=== PATIENT | female | born 1940 | race Caucasian/White ===

== ENCOUNTER 2023-04-18 09:29 | Outpatient (OUT) | payer MEDICARE, SELFPAY ==
[2023-04-18 10:20] LABS: Bilirubin Urine NEGATIVE (NEGATIVE); Blood Urine LARGE (NEGATIVE); Clarity Urine CLEAR (CLEAR); Color Urine LT. YELLOW (YELLOW); Glucose Urine UA NEGATIVE (NEGATIVE); Ketones Urine NEGATIVE (NEGATIVE); Leukocyte Esterase Urine NEGATIVE (NEGATIVE); Nitrite Urine NEGATIVE (NEGATIVE); Protein Urine >=300 mg/dL (NEG/TRACE); Specific Gravity Urine 1.025 (1.005-1.025); Urobilinogen Urine 0.2 EU/dL (0.2-1.0); pH Urine 6.5 (5.0-9.0)
[2023-04-18 10:36] LABS: Creatinine Urine Random 38.43 mg/dL (20.00-300.00); Protein Creatinine Ratio Urine 8.12; Total Protein Urine Random 311.9 mg/dL (<=11.9)
[2023-04-18 10:37] LABS: Alanine Aminotransferase 11 U/L (14-59); Albumin Level 3.1 g/dL (3.4-5.0); Alkaline Phosphatase 53 U/L (46-116); Anion Gap 5.2; Aspartate Amino Transferase 8 U/L (15-37); BUN Creatinine Ratio 26.3; Bilirubin Total 0.2 mg/dL (0.2-1.0); Calcium 8.8 mg/dL (8.5-10.1); Chloride 105 mmol/L (98-107); Estimated GFR (African America 55 (>=60); Estimated GFR (Non-African Ame 46 (>=60); Globulin 3.2 g/dL; Glucose 126 mg/dL (74-106); Magnesium 2.4 mg/dL (1.8-2.4); Phosphorus 3.4 mg/dL (2.6-4.7); Potassium 4.2 mmol/L (3.5-5.1); Sodium 139 mmol/L (136-145); Total Protein 6.3 g/dL (6.4-8.2); Uric Acid 7.7 mg/dL (2.6-6.0)
[2023-04-18 10:39] LABS: Hematocrit 30.3 % (36.0-48.0); Hemoglobin 9.1 g/dL (12.0-16.0); Mean Corpuscular Hemoglobin 30.8 pg (26.7-34.0); Mean Corpuscular Volume 102.7 fL (81.0-99.0); Mean Platelet Volume 10.4 fL (9.5-13.5); Platelet Count 214 10^3/uL (150-450); Red Blood Count 2.95 10^6/uL (4.20-5.40); Red Cell Distribution Width 12.8 % (11.0-15.0); White Blood Count 5.7 10^3/uL (4.0-11.0)
[2023-04-20 14:21] LABS: PTH, Intact 80 pg/mL (15-65)
== END 2023-04-18 09:30 | disposition home or self-care (01) ==
PROVIDERS: Visit Provider Internal Medicine Nephrology
DX: I12.9 Hypertensive chronic kidney disease with stage 1 through stage 4 chronic kidney disease, or unspecified chronic kidney disease (principal); R60.9 Edema, unspecified; E11.22 Type 2 diabetes mellitus with diabetic chronic kidney disease; E78.5 Hyperlipidemia, unspecified; Z68.43 Body mass index [BMI] 50.0-59.9, adult; N18.31 Chronic kidney disease, stage 3a
CPT/HCPCS: 36415; 80053; 81003; 82306; 82570; 82607; 83735; 83970; 84100; 84156; 84550; 85027

== ENCOUNTER 2023-05-01 11:45 | Outpatient (REF) | payer MEDICARE, SELFPAY | END 2023-05-01 11:46 | disposition home or self-care (01) | LOC: LAB 11:45 | PROVIDERS: Visit Provider Internal Medicine Nephrology | DX: I12.9 Hypertensive chronic kidney disease with stage 1 through stage 4 chronic kidney disease, or unspecified chronic kidney disease (principal); R60.9 Edema, unspecified; E11.22 Type 2 diabetes mellitus with diabetic chronic kidney disease; E78.5 Hyperlipidemia, unspecified; Z68.43 Body mass index [BMI] 50.0-59.9, adult; N18.31 Chronic kidney disease, stage 3a; D64.9 Anemia, unspecified | CPT/HCPCS: 36415; 84156; 84166 ==

== ENCOUNTER 2023-05-08 11:42 | Emergency (ER) | payer MEDICARE, SELFPAY ==
[2023-05-08] VITALS (69 sets, daily range): BP systolic 109–186; BP diastolic 46–93; PULSE 64–128; RESP 11–22; TEMP 37; O2SAT 93–99; BMI 38.1
--- NOTE | 2023-05-08 12:25 | ECG_ITS ---
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
--- NOTE | 2023-05-08 12:25 | XR_ITS ---
The [address] [address] Patient Name: JONATHAN HILL MRN: [id number] date: 1940 Sex: F Assigned Patient Location: ER Current Patient Location: ER Accession/Order Number: [id number] Exam Date: 05/08/2023 12:37 Report Date: 05/08/2023 13:13 At the request of: POLLY PRIETO Procedure: XR chest 1V EXAMINATION: XR chest 1V 05/08/2023 10:11 AM PST HISTORY: weak TECHNIQUE: Single frontal view of the chest acquired. COMPARISONS: Chest x-ray 06/04/[address] of the chest 02/19/2016. FINDINGS: Lines/tubes/other: None. Heart and mediastinum: Enlarged pulmonary artery resulting in rounded convexity in the right mid mediastinal contour, similar. Mildly enlarged cardiac silhouette, similar. Bones: No acute osseous abnormality. Lungs: The lungs are clear. There is no evidence of pneumonia or pulmonary edema. Pleura: There is no significant pleural effusion or pneumothorax. Other: None. XR/XR chest 1V IMPRESSION: No acute cardiopulmonary abnormality. Electronically authenticated by: EMORY RESTREPO Date: 05/08/2023 13:13
--- NOTE | 2023-05-08 12:35 | ED_ITS ---
HPI - General Adult General Chief complaint: Nausea/Vomiting/Diarrhea Stated complaint: nausea Time Seen by Provider: 05/08/23 12:21 Source: patient Mode of arrival: Wheelchair History of Present Illness HPI narrative: 82-year-old female presents for diarrhea and not feeling well. She's made several trips to the bathroom for diarrhea. She states anytime she tries to eat or drink anything she has diarrhea. No vomiting. No chest pain or shortness of breath or cough. She's not complain to me of abdominal pain. This started within the last day. Related Data Home Medications Medication Instructions Recorded Confirmed albuterol sulfate 90 mcg/actuation 2 puff inhalation Q4H PRN 05/08/23 05/08/23 aerosol inhaler shortness of breath or wheezing alendronate 70 mg tablet 70 mg PO .weekly 05/08/23 05/08/23 apixaban 5 mg tablet (Eliquis) 5 mg PO Q12H 05/08/23 05/08/23 budesonide-formoterol HFA 160 1 puff inhalation Q12H 05/08/23 05/08/23 mcg-4.5 mcg/actuation aerosol inhaler bumetanide 1 mg tablet 1 mg PO DAILY 05/08/23 05/08/23 carvedilol 25 mg tablet 25 mg PO Q12H 05/08/23 05/08/23 cholecalciferol (vitamin D3) 50 2,000 unit PO DAILY 05/08/23 05/08/23 mcg (2,000 unit) capsule gemfibrozil 600 mg tablet 600 mg PO BID 05/08/23 05/08/23 hydralazine 50 mg tablet 50 mg PO Q12H 05/08/23 05/08/23 ipratropium 0.5 mg-albuterol 3 mg 1.5 ml inhalation Q4H PRN 05/08/23 05/08/23 (2.5 mg base)/3 mL nebulization shortness of breath or wheezing soln levothyroxine 100 mcg tablet 100 mcg PO DAILY 05/08/23 05/08/23 (Euthyrox) loratadine 10 mg capsule 10 mg PO DAILY 05/08/23 05/08/23 losartan 100 mg tablet 100 mg PO DAILY 05/08/23 05/08/23 metformin 1,000 mg tablet 1,000 mg PO BID 05/08/23 05/08/23 nifedipine 60 mg tablet,extended 60 mg PO DAILY 05/08/23 05/08/23 release 24 hr omeprazole 20 mg capsule,delayed 20 mg PO DAILY 05/08/23 05/08/23 release rosuvastatin 5 mg tablet 5 mg PO DAILY 05/08/23 05/08/23 spironolactone 25 mg tablet 25 mg PO DAILY 05/08/23 05/08/23 Allergies Allergy/AdvReac Type Severity Reaction Status Date / Time Penicillins Allergy Severe Verified 05/08/23 12:05 Sulfa (Sulfonamide Allergy Severe Verified 05/08/23 12:05 Antibiotics) sulfamethoxazole Allergy Severe Verified 05/08/23 12:05 [From Bactrim] trimethoprim [From Bactrim] Allergy Severe Verified 05/08/23 12:05 Review of Systems ROS Narrative A ten point review of systems is negative except as noted above. Exam Narrative Exam Narrative: Nurses note and vital signs reviewed and patient is not hypoxic. General: The patient appears mildly uncomfortable and weak Skin: Warm, dry, no pallor noted. There is no rash noted. Head: Normocephalic, atraumatic Eye: Normal conjunctiva, no drainage Ears, Nose, Mouth, and Throat: oral mucosa is but dry. Nares patent. Cardiovascular: irregularly irregular Respiratory: Patient is in no distress, no accessory muscle use, lungs are clear to auscultation, no wheezing, rales or rhonchi Back: non-tender GI: soft and nontender Musculoskeletal: The patient has no evidence of calf tenderness, no pitting edema, symmetrical pulses noted bilaterally Neurological: A&O, normal speech Psychiatric: Cooperative Constitutional Vital Signs, click to edit/add: Last Vital Signs Temp 98.6 F 05/08/23 12:12 Pulse 125 H 05/08/23 14:31 Resp 17 05/08/23 14:31 BP 122/59 05/08/23 12:12 Pulse Ox 98 05/08/23 14:31 O2 Del Method Room Air 05/08/23 12:12 Course Vital Signs Vital signs: Vital Signs Blood Pressure 122/59 05/08/23 12:05 Temperature 98.6 F 05/08/23 12:12 Pulse Rate 125 H 05/08/23 14:31 Respiratory Rate 17 05/08/23 14:31 Blood Pressure 122/59 05/08/23 12:12 Pulse Oximetry 98 05/08/23 14:31 Oxygen Delivery Method Room Air 05/08/23 12:12 Medical Decision Making MDM Narrative Medical decision making narrative: the patient presented with diarrhea and some mild weakness. After a few hours st ay in the emergency depaartment while she was on the monitor she had several episodes of sinus polyps, up to five seconds. During this episode she told me that her head felt funny and she felt like she was going to pass out. In retrospect the family states that for the past month she has episodes where she'll be sitting on the couch talking and then she'll go to sleep. After a few seconds she wakes up. I've spoken to Dr. Kohli and Dr. Wenistein at [facility]. I've also spoken to the emergency department physician there and the patient will be transferred there. She stable and agreeable for transfer. Covid test is pending. Findings are discussed thoroughly with the patient and her family. Differential Diagnosis Differential Diagnosis: food poisoning, gastroenteritis, C. difficile Lab Data Lab results reviewed: Yes I reviewed the patient's lab results Labs: Lab Results 05/08/23 05/08/23 Range/Units 12:28 13:44 WBC 3.9 L (4.0-11.0) 10^3/uL RBC 2.93 L (4.20-5.40) 10^6/uL Hgb 9.0 L (12.0-16.0) g/dL Hct 29.6 L (36.0-48.0) % MCV 101.0 H (81.0-99.0) fL MCH 30.7 (26.7-34.0) pg MCHC 30.4 (29.9-35.2) g/dL RDW 12.5 (11.0-15.0) % Plt Count 196 (150-450) 10^3/uL MPV 10.7 (9.5-13.5) fL Neut % (Auto) 66.7 (43.0-75.0) % Lymph % (Auto) 18.0 L (20.5-60.0) % [place] % (Auto) 10.3 (1.7-12.0) % Eos % (Auto) 4.4 (0.9-7.0) % Baso % (Auto) 0.3 (0.2-2.0) % Neut # (Auto) 2.6 (1.4-6.5) 10^3/uL Lymph # (Auto) 0.7 L (1.2-3.8) 10^3/uL [place] # (Auto) 0.4 (0.3-0.8) 10^3/uL Eos # (Auto) 0.2 (0.0-0.7) 10^3/uL Baso # (Auto) 0.0 (0.0-0.1) 10^3/uL Abs Immat Gran (auto) 0.01 (0.00-0.03) 10^3/uL Imm/Tot Granulo (auto) 0.3 (0.0-0.5) % Sodium 142 (136-145) mmol/L Potassium 4.1 (3.5-5.1) mmol/L Chloride 103 (98-107) mmol/L Carbon Dioxide 31.8 (21.0-32.0) mmol/L Anion Gap 11.3 BUN 35.0 H (7.0-18.0) mg/dL Creatinine 1.42 H (0.55-1.02) mg/dL Est GFR ( Amer) 43 L (>=60) Est GFR (Non-Af Amer) 35 L (>=60) BUN/Creatinine Ratio 24.6 Glucose 177 H (74-106) mg/dL Calcium 9.3 (8.5-10.1) mg/dL Troponin I High Sens 14.3 (4.0-51.3) pg/mL Urine Color Lt. yellow (YELLOW) Urine Clarity Clear (CLEAR) Urine pH 7.5 (5.0-9.0) Ur Specific [place] 1.020 (1.005-1.025) Urine Protein 100 A (NEG/TRACE) mg/dL Urine Glucose (UA) Negative (NEGATIVE) mg/dL Urine Ketones Negative (NEGATIVE) mg/dL Urine Occult Blood Large A (NEGATIVE) Urine Nitrite Negative (NEGATIVE) Urine Bilirubin Negative (NEGATIVE) Urine Urobilinogen 0.2 (0.2-1.0) EU/dL Ur Leukocyte Esterase Negative (NEGATIVE) Urine RBC 20-50 A (0-2) #/HPF Urine WBC 2-5 A (NONE SEEN) #/HPF Ur Squamous Epith Cells Few A (NONE/RARE) #/LPF Urine Crystals None seen (None Seen) #/HPF Urine Bacteria Small A (NONE SEEN) #/HPF Urine Casts None seen (NONE SEEN) #/LPF Urine Mucus None seen (NONE SEEN) Imaging Data Chest x-ray: Radiologist's impression: Procedure: XR chest 1V EXAMINATION: XR chest 1V 05/08/2023 10:11 AM PST HISTORY: weak TECHNIQUE: Single frontal view of the chest acquired. COMPARISONS: Chest x-ray 06/04/[address] of the chest 02/19/2016. FINDINGS: Lines/tubes/other: None. Heart and mediastinum: Enlarged pulmonary artery resulting in rounded convexity in the right mid mediastinal contour, similar. Mildly enlarged cardiac silhouette, similar. Bones: No acute osseous abnormality. Lungs: The lungs are clear. There is no evidence of pneumonia or pulmonary edema. Pleura: There is no significant pleural effusion or pneumothorax. Other: None. IMPRESSION: No acute cardiopulmonary abnormality. Electronically authenticated by: EMORY RESTREPO Date: 05/08/2023 ECG Data Attestation: I personally reviewed and interpreted this ECG as follows: (initial EKG on my interpretation shows 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) Critical Care Time Critical Care Time Critical Care Time: Yes Total Critical Care Time: 45 Attestation: Due to the high probability of sudden and clinically significant deterioration in the patient's condition he/she required the highest level of my preparedness to intervene urgently I provided critical care time including documentation time, medication orders and management, reevaluation, vital sign assessment, ordering and reviewing of lab tests, ordering and reviewing of x-ray studies, and admission orders. Aggregate critical care time is 45 minutes including only time during which I was engaged in work directly related to his/her care and did not include time spent treating other patients simultaneously. Discharge Plan Discharge Chief Complaint: Nausea/Vomiting/Diarrhea Clinical Impression: Sinus pause Patient Disposition: [facility] Time of Disposition Decision: 15:53 Discharge Location: [facility] Condition: Fair Mode of Transportation: EMS
[2023-05-08 12:36] LABS: Basophils Percent Auto 0.3 % (0.2-2.0); Eosinophils Absolute Auto 0.2 10^3/uL (0.0-0.7); Eosinophils Percent Auto 4.4 % (0.9-7.0); Hematocrit 29.6 % (36.0-48.0); Immature Granulocytes Abs Auto 0.01 10^3/uL (0.00-0.03); Immature Granulocytes Pct Auto 0.3 % (0.0-0.5); Lymphocytes Absolute Auto 0.7 10^3/uL (1.2-3.8); Mean Corpuscular HGB Conc 30.4 g/dL (29.9-35.2); Mean Corpuscular Hemoglobin 30.7 pg (26.7-34.0); Mean Platelet Volume 10.7 fL (9.5-13.5); Monocytes Absolute Auto 0.4 10^3/uL (0.3-0.8); Monocytes Percent Auto 10.3 % (1.7-12.0); Neutrophils Absolute Auto 2.6 10^3/uL (1.4-6.5); Neutrophils Percent Auto 66.7 % (43.0-75.0); Platelet Count 196 10^3/uL (150-450); Red Blood Count 2.93 10^6/uL (4.20-5.40); Red Cell Distribution Width 12.5 % (11.0-15.0); White Blood Count 3.9 10^3/uL (4.0-11.0)
[2023-05-08] MEDS: 0.9 % SODIUM CHLORIDE 500 ML IV (12:48)
[2023-05-08 12:54] LABS: Anion Gap 11.3; BUN Creatinine Ratio 24.6; Calcium 9.3 mg/dL (8.5-10.1); Carbon Dioxide 31.8 mmol/L (21.0-32.0); Chloride 103 mmol/L (98-107); Estimated GFR (African America 43 (>=60); Estimated GFR (Non-African Ame 35 (>=60); Glucose 177 mg/dL (74-106); Potassium 4.1 mmol/L (3.5-5.1); Sodium 142 mmol/L (136-145); Troponin I High Sensitivity 14.3 pg/mL (4.0-51.3)
[2023-05-08 13:50] LABS: Bilirubin Urine NEGATIVE (NEGATIVE); Blood Urine LARGE (NEGATIVE); Clarity Urine CLEAR (CLEAR); Color Urine LT. YELLOW (YELLOW); Glucose Urine UA NEGATIVE (NEGATIVE); Ketones Urine NEGATIVE (NEGATIVE); Leukocyte Esterase Urine NEGATIVE (NEGATIVE); Nitrite Urine NEGATIVE (NEGATIVE); Protein Urine 100 mg/dL (NEG/TRACE); Urobilinogen Urine 0.2 EU/dL (0.2-1.0); pH Urine 7.5 (5.0-9.0)
[2023-05-08 14:03] LABS: Bacteria Urine SMALL #/HPF (NONE SEEN); Cast Seen? NONE SEEN #/LPF (NONE SEEN); Crystals Seen? None Seen #/HPF (None Seen); Mucus Urine NONE SEEN (NONE SEEN); RBC Urine 20-50 #/HPF (0-2); Squamous Epithelial Cell Urine FEW #/LPF (NONE/RARE)
--- NOTE | 2023-05-08 14:42 | ECG_ITS ---
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1940 Requested By: JESSICA RILEY Order Number: [id number] Reading MD: JESSICA RILEY Measurements Intervals [place] Rate: 99 P: -31416 MD: -[id number] QRS: -55 QRSD: 144 T: 43 QT: 386 QTc: 442 Interpretive Statements 1210 Atrial fibrillation 2450 Right bundle branch block 2630 Left anterior fascicular block 3114 Cannot rule out anterior myocardial infarction, age undetermined 5233 Voltage criteria for LVH 9150 abnormal ECG Compared to ECG 05/08/2023 12:07:14 Atrial flutter no longer present Early repolarization no longer present Myocardial infarct finding still present Electronically Signed On 05-13-2023 7:51:24 EST by JESSICA RILEY
[2023-05-08 16:20] LABS: SARS-CoV-2 Ag NEGATIVE (NEGATIVE)
[2023-05-08 16:33] LABS: Magnesium 2.4 mg/dL (1.8-2.4); Phosphorus 3.5 mg/dL (2.6-4.7); Thyroid Stimulating Hormone 1.733 uIU/mL (0.358-3.740)
[2023-05-09 16:20] LABS: SARS-CoV-2 NAA INCONCLUSIVE (NOT DETECTE)
== END 2023-05-08 21:30 | disposition short-term general hospital (02) ==
PROVIDERS: Emergency Provider Emergency Medicine; PCP Family Medicine
DX: I45.5 Other specified heart block (principal); Z79.899 Other long term (current) drug therapy; Z79.01 Long term (current) use of anticoagulants; Z79.84 Long term (current) use of oral hypoglycemic drugs; Z20.822 Contact with and (suspected) exposure to COVID-19
CPT/HCPCS: 36415; 71045; 80048; 81001; 83735; 84100; 84443; 84484; 85025; 87045; 87493; 87635; 87811; 93005; 99285

== ENCOUNTER 2023-08-01 09:28 | Outpatient (OUT) | payer MEDICARE, SELFPAY ==
--- OUTSIDE RECORDS SUMMARY | 2023-08-01 09:42 | XMS_ITS | CCD ---
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 time] 2.3 {INR} Abnormal 0.8 - 1.2 [facility] Interpretation and review of laboratory results Abnormal [facility] POCT Protime / INRon 024 INR Coag (PPP) [Relative time] 3.5 {INR} Abnormal 0.8 - 1.2 [facility] Interpretation and review of laboratory results Abnormal [facility] BASIC METABOLIC PANLon 06-02 Anion gap [Moles/Vol] 9 mmol/L Normal 5-15 [facility] Comment on above: Performed By: #### B MP, LIVR, THYR #### [facility] ([id number]) [address], [address] [place] [address] Calcium [Mass/Vol] 9.0 mg/dL Normal 8.5-10.5 [facility] Comment on above: Performed By: #### B SAE NICHOLS THYR #### [facility] ([id number]) [address], [address] [place] [address] Chloride [Moles/Vol] 106 mmol/L Normal 98-109 [facility] Comment on above: Performed By: #### B SAE NICHOLS THYR #### [facility] ([id number]) [address], [address] [place] [address] CO2 [Moles/Vol] 30 mmol/L Normal 22-32 [facility] Comment on above: Performed By: #### B SAE NICHOLS THYR #### [facility] ([id number]) [address], [address] [place] [address] Creatinine [Mass/Vol] 1.58 mg/dL High 0.40-1.00 [facility] Comment on above: Result Comment: METH OD TRACEABLE TO IDMS STANDARD Performed By: #### B SAE NICHOLS THYR #### [facility] ([id number]) [address], [address] [place] [address] GFR/1.73 sq M.predicted among non-blacks MDRD (S/P/Bld) [Vol rate/Area] 32 mL/min/{1.73_m2} Low >59 [facility] Comment on above: Result Comment: Reported eGFR is based on the CKD-EPI 2020 equation that does not use a race coefficient. Performed By: #### B SAE NICHOLS THYR #### [facility] ([id number]) [address], [address] [place] [address] Glucose [Mass/Vol] 125 mg/dL High 65-99 [facility] Comment on above: Performed By: #### B SAE NICHOLS THYR #### [facility] ([id number]) [address], [address] [place] [address] Potassium [Moles/Vol] 4.3 mmol/L Normal 3.5-5.0 [facility] Comment on above: Performed By: #### B MP, LIVR, THYR #### [facility] ([id number]) [address], [address] [place] [address] Sodium [Moles/Vol] 145 mmol/L Normal 134-146 [facility] Comment on above: Performed By: #### B MP, LIVR, THYR #### [facility] ([id number]) [address], [address] [place] [address] Urea nitrogen [Mass/Vol] 28 mg/dL High 5-27 [facility] Comment on above: Performed By: #### B MP, LIVR, THYR #### [facility] ([id number]) [address], [address] [place] [address] LIVER PANELon 06-02-2023 Albumin [Mass/Vol] 3.3 g/dL Normal 3.2-5.3 [facility] Comment on above: Performed By: #### B MP, LIVR, THYR #### [facility] ([id number]) [address] [place] [address] ALP [Catalytic activity/Vol] 40 U/L Normal 39-130 [facility] Comment on above: Performed By: #### B MP, LIVR, THYR #### [facility] ([id number]) [address], [address] [place] [address] ALT [Catalytic activity/Vol] 10 U/L Normal 0-31 [facility] Comment on above: Performed By: #### B MP, LIVR, THYR #### [facility] ([id number]) [address], [address] [place] [address] AST [Catalytic activity/Vol] 10 U/L Normal 0-41 [facility] Comment on above: Performed By: #### B SAE NICHOLS THYR #### [facility] ([id number]) [address] [place] [address] Bilirubin [Mass/Vol] 0.2 mg/dL Low 0.3-1.2 [facility] Comment on above: Performed By: #### B MAGDALENA LIVDeisy, THYR #### [facility] ([id number]) [address] [place] [address] Bilirubin.direct [Mass/Vol] 0.0 mg/dL Normal 0.0-0.4 [facility] Comment on above: Performed By: #### B SAE NICHOLS, THYR #### [facility] ([id number]) [address], [address] [place] [address] Protein [Mass/Vol] 5.6 g/dL Low 6.0-8.0 [facility] Comment on above: Performed By: #### SAE Bran MP, THYR #### [facility] ([id number]) [address] [place] [address] POCT Protime / INRon 024 INR Coag (PPP) [Relative time] 4.7 {INR} Abnormal 0.8 - 1.2 [facility] Interpretation and review of laboratory results [facility] THYROID PROFILEon 06-02-2023 Free T4 [Mass/Vol] 0.96 ng/dL Normal 0.61-1.60 [facility] Comment on above: Performed By: #### B MAGDALENA LIVR, THYR #### [facility] ([id number]) [address] [place] [address] TSH 7.63 uIU/mL High 0.49-4.67 [facility] Comment on above: Performed By: #### B MP, LIVR, THYR #### [facility] ([id number]) [address] [place] [address] POCT EKGOrdered By: Latia Garcia on 05-28-2023 [facility] POCT Protime / INRon 024 INR Coag (PPP) [Relative time] 3.3 {INR} Abnormal 0.8 - 1.2 [facility] Interpretation and review of laboratory results [facility]normal [facility] PO[facility] Protime / INRon 024 INR Coag (PPP) [Relative time] 4.6 {INR} Abnormal 0.8 - 1.2 [facility] Interpretation and review of laboratory results Abnormal [facility] A1C HEMOGLOBINon 02-19-2023 HbA1c (Bld) [Mass fraction] 5.8 % [facility] [employer] Other Glucose - FINGER STICKon Glucose [Mass/Vol] 174 mg/dL [employer] [facility] [employer] Other HbA1c (Bld) [Mass fraction]o n 02-19-2023 A1C HEMOGLOBIN [facility] [employer] Other PROF 14(COMP METB)on 023 Albumin [Mass/Vol] 2.9 g/dL Critically low 3.4-5.0 [facility] Comment on above: Performed By: #### C MP #### [facility] [address] [address] [address] Lamar Lin Albumin/Globulin [Mass ratio] 0.8 {ratio} Normal [facility] Comment on above: Performed By: #### C MP #### [facility] [address] [address] [address] Lamar Lin ALP [Catalytic activity/Vol] 70 U/L Normal 46-116 [facility] Comment on above: Performed By: #### C MP #### [facility] [address] [address] [address] Lamar Lin ALT [Catalytic activity/Vol] 14 U/L Normal 14-59 [facility] Comment on above: Performed By: #### C MP #### [facility] [address] [address] [address] Laamr Lin Anion gap [Moles/Vol] 10.5 mmol/L Normal [facility] Comment on above: Performed By: #### C MP #### [facility] [address] [address] [address] Lamar Lin AST [Catalytic activity/Vol] 10 U/L Critically low 15-37 [facility] Comment on above: Performed By: #### C MP #### [facility] [address] [place] [address] Dr. Lamar Lin Bilirubin [Mass/Vol] 0.2 mg/dL Normal 0.2-1.0 [facility] Comment on above: Performed By: #### C MP #### [facility] [address] [place] [address] Dr. Lamar Lin Calcium [Mass/Vol] 9.4 mg/dL Normal 8.5-10.1 [facility] Comment on above: Performed By: #### C MP #### [facility] [address] [place] [address] Dr. Lamar Lin Chloride [Moles/Vol] 104 mmol/L Normal 98-107 [facility] Comment on above: Performed By: #### C MP #### [facility] [address] [place] [address] Dr. Lamar Lin CO2 [Moles/Vol] 34.9 mmol/L Critically high 21.0-32.0 [facility] Comment on above: Performed By: #### C MP #### [facility] [address] [place] [address] Dr. Lamar Lin Creatinine [Mass/Vol] 0.96 mg/dL Normal 0.55-1.02 [facility] Comment on above: Performed By: #### C MP #### [facility] [address] [place] [address] Dr. Lamar Lin EGFR-AF SWEDISH >60 Normal >=60 [facility] Comment on above: Performed By: #### C MP #### [facility] [address] [address] [address] Lamar Lin EGFR-NON AF SWEDISH 56 mL/min/1.73m2 Critically low >=60 [facility] Comment on above: Performed By: #### C MP #### [facility] [address] [address] [address] Lamar Lin Globulin (S) [Mass/Vol] 3.7 g/dL Normal [facility] Comment on above: Performed By: #### C MP #### [facility] [address] [address] [address] Lamar Lin Glucose [Mass/Vol] 132 mg/dL Critically high 74-106 [facility] Comment on above: Performed By: #### C MP #### [facility] [address] [address] [address] Lamar Lin Potassium [Moles/Vol] 4.4 mmol/L Normal 3.5-5.1 [facility] Comment on above: Performed By: #### C MP #### [facility] [address] [address] [address] Lamar Lin Protein [Mass/Vol] 6.6 g/dL Normal 6.4-8.2 [facility] Comment on above: Performed By: #### C MP #### [facility] [address] [address] [address] Lamar Lin Sodium [Moles/Vol] 145 mmol/L Normal 136-145 [facility] Comment on above: Performed By: #### C MP #### [facility] [address] [address] [address] Lamar Lin Urea nitrogen [Mass/Vol] 28.0 mg/dL Critically high 7.0-18.0 [facility] Comment on above: Performed By: #### C MP #### [facility] [address] [address] [address] Lamar Lin Urea nitrogen/Creatinine [Mass ratio] 29.2 mg/mg Normal [facility] Comment on above: Performed By: #### C MP #### [facility] [address] [address] [address] Lamar Lin A1C with Estimated Average Britt bennett 08-19-2022 HbA1c (Bld) [Mass fraction] 6.500 % High 4.3-5.6 % [employer] Other HbA1c (Bld) [Mass fraction] 140 mg/dL [employer] Other Glucose [Mass/Vol] 140 mg/dL Normal [facility] Comment on above: Result Comment: PERF ORMED BY: [place] [address] PATHOLOGIST INSPECTOR MULTIFOCAL LENS JEWELL ROWLEY M.D. Performed By: #### L IPID, B12, A1C WTH eA, URMACREELVIN, CMP #### [facility] [address] [id number] [facility] HbA1c (Bld) [Mass fraction] 6.5 % High 4.3-5.6 [facility] Comment on above: Result Comment: Incr eased risk for diabetes: 5.7 - 6.4 diabetes: >6.4 glycemic control for adults with diabetes: <7.0 Performed By: #### L IPID, B12, A1C WTH eA, URMACRET, CMP #### [facility] [address] [place] [address] [facility] Comprehensive Metabolic Pane darron 08-19-2022 Albumin [Mass/Vol] 3.800825 g/dL Normal 3.5-5.7 g/dL [employer] Other Bilirubin [Mass/Vol] 0.2085894 mg/dL Low 0.3-1.0 mg/dL [employer] Other Calcium [Mass/Vol] 9.8525844 mg/dL Normal 8.6-10.3 mg/ dL [employer] Other CO2 [Moles/Vol] 34.07294527 mmol/L High 21.0-3 1.0 mmol/L [employer] Other Creatinine [Mass/Vol] 0.71811488 mg/dL Normal 0.60-1.20 mg/dL [employer] Other Potassium [Moles/Vol] 4.12209472 mmol/L Normal 3.5-5.1 mmol/L [employer] Other Protein [Mass/Vol] 5.574129 g/dL Low 6.4-8.9 g/dL N [facility] [employer] Other Comprehensive Metabolic Panel 2.1 g/dL [employer] Other Albumin [Mass/Vol] 3.6 g/dL Normal 3.5-5.7 [facility] Comment on above: Order Comment: Reaso n for Exam Type 2 diabetes mellitus;Vitamin B 12 deficiency Performed By: #### L IPID, B12, A1C WTH eA, URMACRERAT, CMP #### [facility] [address] [place] [address] [facility] Albumin/Globulin [Mass ratio] 1.7 {ratio} Normal [facility] [employer] Other Comment on above: Order Comment: Reaso n for Exam Type 2 diabetes mellitus;Vitamin B 12 deficiency Performed By: #### L IPID, B12, A1C WTH eA, URMACRERAT, CMP #### [facility] [address] [place] [address] [place] ALP [Catalytic activity/Vol] 56 U/L Normal 34-104 [facility] [employer] Other Comment on above: Order Comment: Reaso n for Exam Type 2 diabetes mellitus;Vitamin B 12 deficiency Performed By: #### L IPID, B12, A1C WTH eA, URMACRERAT, CMP #### [facility] [address] [place] [address] [place] ALT [Catalytic activity/Vol] 14 U/L Normal 7-52 [employer] Other Comment on above: Order Comment: Reaso n for Exam Type 2 diabetes mellitus;Vitamin B 12 deficiency Performed By: #### L IPID, B12, A1C WTH eA, URMACRERAT, CMP #### [facility] [address] [place] [address] Anion gap [Moles/Vol] 10.8 mmol/L Normal 6.0-15.0 [facility] Comment on above: Order Comment: Reaso n for Exam Type 2 diabetes mellitus;Vitamin B 12 deficiency Performed By: #### L IPID, B12, A1C WTH eA, URMACRERAT, CMP #### [facility] [address] [place] [address] AST [Catalytic activity/Vol] 15 U/L Normal 13-39 [employer] Other Comment on above: Order Comment: Reaso n for Exam Type 2 diabetes mellitus;Vitamin B 12 deficiency Performed By: #### L IPID, B12, A1C WTH eA, URMACRERAT, CMP #### [facility] [address] [place] [address] Bilirubin [Mass/Vol] 0.2 mg/dL Low 0.3-1.0 [facility] Comment on above: Order Comment: Reaso n for Exam Type 2 diabetes mellitus;Vitamin B 12 deficiency Performed By: #### L IPID, B12, A1C WTH eA, URMACRERAT, CMP #### [facility] [address] [place] [address] Calcium [Mass/Vol] 9.0 mg/dL Normal 8.6-10.3 [facility] Comment on above: Order Comment: Reaso n for Exam Type 2 diabetes mellitus;Vitamin B 12 deficiency Performed By: #### L IPID, B12, A1C WTH eA, URMACRERAT, CMP #### [facility] [address] [place] [address] [place] Chloride [Moles/Vol] 103 mmol/L Normal 98-107 [employer] Other Comment on above: Order Comment: Reaso n for Exam Type 2 diabetes mellitus;Vitamin B 12 deficiency Performed By: #### L IPID, B12, A1C WTH eA, URMACRERAT, CMP #### [facility] [address] [id number] [place] CO2 [Moles/Vol] 34.5 mmol/L High 21.0-31.0 [facility] Comment on above: Order Comment: Reaso n for Exam Type 2 diabetes mellitus;Vitamin B 12 deficiency Performed By: #### L IPID, B12, A1C WTH eA, URMACRERAT, CMP #### [facility] [address] [id number] [facility] Creatinine [Mass/Vol] 0.71 mg/dL Normal 0.60-1.20 [facility] Comment on above: Order Comment: Reaso n for Exam Type 2 diabetes mellitus;Vitamin B 12 deficiency Performed By: #### L IPID, B12, A1C WTH eA, URMACRERAT, CMP #### [facility] [address] [place] [address] [place] GFR/1.73 sq M.predicted MDRD (S/P/Bld) [Vol rate/Area] mL/min/{1.73_m2} Normal [facility] [employer] Other Comment on above: Order Comment: Reaso n for Exam Type 2 diabetes mellitus;Vitamin B 12 deficiency Performed By: #### L IPID, B12, A1C WTH eA, URMACRERAT, CMP #### [facility] [address] Globulin (S) [Mass/Vol] 2.1 g/dL Normal [facility] Comment on above: Order Comment: Reaso n for Exam Type 2 diabetes mellitus;Vitamin B 12 deficiency Performed By: #### L IPID, B12, A1C WTH eA, URMACRERAT, CMP #### [facility] [address] [id number] [place] Glucose [Mass/Vol] 156 mg/dL High 70-100 [employer] Other Comment on above: Order Comment: Reaso n for Exam Type 2 diabetes mellitus;Vitamin B 12 deficiency Result Comment: [place] om Glucose Reference Range is dependent on time and content of last meal. Glucose of more than 200 mg/dL in a nonstressed, ambulatory subject supports the diagnosis of Diabetes Mellitus. ADA recommended reference range Performed By: #### L IPID, B12, A1C WTH eA, URMACRERAT, CMP #### [facility] [address] [id number] [place] Potassium [Moles/Vol] 4.3 mmol/L Normal 3.5-5.1 [facility] Comment on above: Order Comment: Reaso n for Exam Type 2 diabetes mellitus;Vitamin B 12 deficiency Performed By: #### L IPID, B12, A1C WTH eA, URMACRERAT, CMP #### [facility] [address] [id number] [facility] Protein [Mass/Vol] 5.7 g/dL Low 6.4-8.9 [facility] Comment on above: Order Comment: Reaso n for Exam Type 2 diabetes mellitus;Vitamin B 12 deficiency Performed By: #### L IPID, B12, A1C WTH eA, URMACRERAT, CMP #### [facility] [address] [id number] [place] Sodium [Moles/Vol] 144 mmol/L Normal 136-145 [employer] Other Comment on above: Order Comment: Reaso n for Exam Type 2 diabetes mellitus;Vitamin B 12 deficiency Performed By: #### L IPID, B12, A1C WTH eA, URMACRERAT, CMP #### [facility] [address] [place] [address] [place] Urea nitrogen [Mass/Vol] 24 mg/dL Normal 7-25 [employer] Other Comment on above: Order Comment: Reaso n for Exam Type 2 diabetes mellitus;Vitamin B 12 deficiency Performed By: #### L IPID, B12, A1C WTH eA, URMACRERAT, CMP #### [facility] [address] [id number] [place] Glucose - FINGER STICKon Glucose [Mass/Vol] 205 mg/dL [employer] Other Lipid Panelon 08-19-2022 Cholesterol in LDL Elph Qn 95 mg/dL Normal 0-100 mg/dL [employer] Other Lipid Panel 219 mg/dL High 0-149 mg/dL [employer] Other Lipid Panel 43 mg/dL [employer] Other Cholesterol [Mass/Vol] 172 mg/dL Normal 140-200 [employer] Other Comment on above: Order Comment: Jose Eduardoo n for Exam Type 2 diabetes mellitus;Vitamin B 12 deficiency Result Comment: Chol less than 200 mg/dl low risk Chol 201-239 mg/dl borderline risk Chol 240 mg/dl and greater high risk Performed By: #### L IPID, B12, A1C WTH eA, URMACRERAT, CMP #### [facility] [address] [id number] [facility] Cholesterol in HDL [Mass/Vol] 33 mg/dL Low 35-85 [employer] Other Comment on above: Order Comment: Jose Eduardoo n for Exam Type 2 diabetes mellitus;Vitamin B 12 deficiency Result Comment: HDL CHOL ATP-III CLASSIFICATION Cardiovascular Risk HDL > or equal to 60 mg/dL LOW HDL < 40 mg/dL HIGH Performed By: #### L IPID, B12, A1C WTH eA, URMACRERAT, CMP #### [facility] [address] [id number] [facility] Cholesterol.total/C holesterol in HDL [Mass ratio] 5.2 {ratio} Normal <5.0 [employer] Other Comment on above: Order Comment: Tayler n for Exam Type 2 diabetes mellitus;Vitamin B 12 deficiency Performed By: #### L IPID, B12, A1C WTH eA, URMACRERAT, CMP #### [facility] [address] [place] [address] [place] LDL Cholesterol,Calcula katy 95 mg/dL Normal 0-100 [facility] Comment on above: Order Comment: Tayler n for Exam Type 2 diabetes mellitus;Vitamin B 12 deficiency Result Comment: LDL ATP III CLASSIFICATION LDL less than 100 mg/dL Optimal LDL 100-129 mg/dL Near or above optimal LDL 130-159 mg/dL Borderline high LDL 160-189 mg/dL High LDL greater than 189 mg/dL Very high Performed By: #### L IPID, B12, A1C WTH eA, URSTARLAREELVIN, CMP #### [facility] [address] Triglyceride w/Reflex 219 mg/dL High 0-149 [facility] Comment on above: Order Comment: Reaso n for Exam Type 2 diabetes mellitus;Vitamin B 12 deficiency Result Comment: TRIG ATP III CLASSIFICATION TRIG less than 150 mg/dL Normal TRIG 150-199 mg/dL Borderline high TRIG 200-500 mg/dL High TRIG greater than 500 mg/dL Very high Standard traceable to the Center for Disease Conrtrol and Prevention (CDC) test method. Performed By: #### L IPID, B12, A1C WTH eA, CIARAREELVIN, CMP #### [facility] [address] VLDL CHOLESTEROL 43 mg/dL Normal [facility] Comment on above: Order Comment: Reaso n for Exam Type 2 diabetes mellitus;Vitamin B 12 deficiency Performed By: #### L IPID, B12, A1C WTH eA, CIARAREELVIN, CMP #### [facility] [address] [id number] [facility] [employer] Creat Ratio,Uon Albumin/Creatinine DL <= 20 mg/L (U) [Mass ratio] TNP 0.0-30.0 [facility] [employer] Other Creatinine (U) [Mass/Vol] 52.2407535 mg/dL [facility] [employer] Other Albumin DL <= 20 mg/L (U) [Mass/Vol] mg/dL High 0.0-1.8 [facility] [employer] Other Comment on above: Performed By: #### L IPID, B12, A1C WTH eA, PARULMACREELVIN, CMP #### [facility] [address] [id number] [place] Creatinine, Urine (Random) 52.0 mg/dL [facility] Comment on above: Result Comment: No r eference range established Performed By: #### L IPID, B12, A1C WTH eAPRANEETH, ELIDA #### [facility] [address] Microalbumin/Creati nine Ratio Not performed Normal 0.0-30.0 [facility] Comment on above: Result Comment: PERF ORMED BY: [place] [address] PATHOLOGIST INSPECTOR MULTIFOCAL LENS JEWELL ROWLEY M.D. Performed By: #### L IPID, B12, A1C WTH eAPRANEETH, CMP #### [facility] [address] Vitamin B12on 08-19-2022 Cobalamin (Vitamin B12) [Mass/Vol] 345 pg/mL Normal 180-914 [facility] [employer] Other Comment on above: Order Comment: Reaso n for Exam Type 2 diabetes mellitus;Vitamin B 12 deficiency Result Comment: PERF ORMED BY: [place] [address] PATHOLOGIST INSPECTOR MULTIFOCAL LENS JEWELL ROWLEY M.D. Performed By: #### L IPID, B12, A1C WTH PRANEETH Carpenter, ELIDA #### [facility] [address] [place], [place] [id number] [facility] A1C HEMOGLOBINon 02-27-2022 HbA1c (Bld) [Mass fraction] 6.1 % [employer] Other Glucose - FINGER STICKon Glucose [Mass/Vol] 159 mg/dL [employer] Other HbA1c (Bld) [Mass fraction]o n 02-27-2022 A1C HEMOGLOBIN [facility] [employer] Other FREE T4on 10-30-2021 Free T4 [Mass/Vol] 1.11 ng/dL Normal 0.76-1.46 [facility] Comment on above: Performed By: #### F T4 #### [facility] [address] [address] [address] Lamar Lin T4on 06-14-2022 T4 [Mass/Vol] 8.30 ug/dL Normal 4.80-13.90 [facility] Comment on above: Performed By: #### T 4, TSH #### [facility] [address] [address] [address] Lamar Lin TSHon 10-30-2021 TSH 2.475 uIU/mL Normal 0.358-3.740 [facility] Comment on above: Performed By: #### T 4, TSH #### [facility] [address] [address] [address] Lamar Lin Glucoseon 05-23-2021 Glucose [Mass/Vol] 167 mg/dL [facility] Other Vital Signs Date Time Vital Sign Value Performing Clinician Facility 07-30-2023 11:44-0400 Body height 165.1 cm Tr Jimenez APRN-REGISTRATION MANAGER Work Phone: [facility] 07-30-2023 11:44-0400 Body mass index (BMI) [Ratio] 34.28 kg/m2 Tr Jimenez PRESS SETUP OPERATOR-REGISTRATION MANAGER Work Phone: [facility] 07-30-2023 11:44-0400 Body weight 93.44 kg Tr Jimenez APRN-REGISTRATION MANAGER Work Phone: [facility] 07-30-2023 11:44-0400 Diastolic blood pressure 80 mm[Hg] Tr Jimenez APRN-REGISTRATION MANAGER Work Phone: [facility] 07-30-2023 11:44-0400 Heart rate 59 /min Tr Jimenez APRN-REGISTRATION MANAGER Work Phone: [facility] 07-30-2023 11:44-0400 Systolic blood pressure 140 mm[Hg] Tr Jimenez PRESS SETUP OPERATOR-REGISTRATION MANAGER Work Phone: [facility] 06-17-2023 12:41-0500 Body height 165.1 cm Iona Delarosa MD Work Phone: [facility] 06-17-2023 12:41-0500 Body mass index (BMI) [Ratio] 33.61 kg/m2 Iona Delarosa MD Work Phone: [facility] 06-17-2023 12:41-0500 Body weight 91.63 kg Iona Delarosa MD Work Phone: [facility] 06-17-2023 12:41-0500 Diastolic blood pressure 70 mm[Hg] Iona Delarosa MD Work Phone: [facility] 06-17-2023 12:41-0500 Heart rate 73 /min Iona Delarosa MD Work Phone: [facility] 06-17-2023 12:41-0500 SaO2% (BldA) [Mass fraction] 97 % Iona Delarosa MD Work Phone: [facility] [place] [facility] 06-17-2023 12:41-0500 Systolic blood pressure 160 mm[Hg] Iona Delarosa MD Work Phone: [facility] [place] [facility] 05-28-2023 12:35-0500 Body height 165.1 cm Tr Jimenez PRESS SETUP OPERATOR-REGISTRATION MANAGER Work Phone: [facility] [place] [facility] 05-28-2023 12:35-0500 Body mass index (BMI) [Ratio] 33.61 kg/m2 Tr Tset PRESS SETUP OPERATOR-REGISTRATION MANAGER Work Phone: [facility] [place] [facility] 05-28-2023 12:35-0500 Body weight 91.63 kg Tr Tony PRESS SETUP OPERATOR-REGISTRATION MANAGER Work Phone: [facility] [place] [facility] 05-28-2023 12:35-0500 Diastolic blood pressure 100 mm[Hg] Tr Tony PRESS SETUP OPERATOR-REGISTRATION MANAGER Work Phone: [facility] [place] [facility] 05-28-2023 12:35-0500 Heart rate 64 /min Tr Tset PRESS SETUP OPERATOR-REGISTRATION MANAGER Work Phone: [facility] [place] [facility] 05-28-2023 12:35-0500 SaO2% (BldA) [Mass fraction] 94 % Tr Jimenez PRESS SETUP OPERATOR-REGISTRATION MANAGER Work Phone: [employer] 05-28-2023 12:35-0500 Systolic blood pressure 200 mm[Hg] Tr Jimenez PRESS SETUP OPERATOR-REGISTRATION MANAGER Work Phone: [employer] [place] [facility] 04-22-2023 10:20-0500 Body height 152.4 cm Azwalter Baksilvias Other [facility] 04-22-2023 10:20-0500 Body mass index (BMI) [Ratio] 39.64 kg/m2 Azwalter Aguilerahous Other [facility] [employer] Other 04-22-2023 10:20-0500 Body weight 92.08 kg Aziz Bakhous Other [facility] [employer] Other 04-22-2023 10:20-0500 Body weight 92.07 kg [facility] 04-22-2023 10:20-0500 Diastolic blood pressure 70 mm[Hg] Aziz Bakhous Other [facility] 04-22-2023 10:20-0500 Respiratory rate 18 /min Azwalter Bakhous Other [facility] [employer] Other 04-22-2023 10:20-0500 SaO2% (BldA) [Mass fraction] 97 % Aziz Bakhous Other [facility] [employer] Other 04-22-2023 10:20-0500 Systolic blood pressure 138 mm[Hg] Aziz Bakhous Other [facility] 02-19-2023 09:15-0400 Body height 152.4 cm [employer] Other [facility] [employer] Other 02-19-2023 09:15-0400 Body mass index (BMI) [Ratio] 40.21 kg/m2 Tondra [employer] Other [facility] Other 02-19-2023 09:15-0400 Body weight 93.4 kg Tondra Mapus Other [facility] Other 02-19-2023 09:15-0400 Diastolic blood pressure 64 mm[Hg] Tondra Mapus Other [facility] Other 02-19-2023 09:15-0400 Respiratory rate 18 /min Tondra Mapus Other [facility] Other 02-19-2023 09:15-0400 SaO2% (BldA) [Mass fraction] 95 % Tondra Mapus Other [facility] Other 02-19-2023 09:15-0400 Systolic blood pressure 129 mm[Hg] Tondra Mapus Other [facility] Other 02-12-2023 09:00-0400 Body height 152.4 cm Tondra Mapus Other [facility] Other 02-12-2023 09:00-0400 Body mass index (BMI) [Ratio] 40.07 kg/m2 Tondra Mapus Other [facility] Other 02-12-2023 09:00-0400 Body weight 93.08 kg Tondra Mapus Other [facility] Other 10-22-2022 10:00-0400 Body height 152.4 cm Rin Ramirez Other [facility] Other 10-22-2022 10:00-0400 Body mass index (BMI) [Ratio] 40.23 kg/m2 Rin Ramirez Other [facility] Other 10-22-2022 10:00-0400 Body temperature 97.4 [degF] Rin Ramirez Other [facility] Other 10-22-2022 10:00-0400 Body weight 93.44 kg Rin Ramirez Other [facility] Other 10-22-2022 10:00-0400 Diastolic blood pressure 78 mm[Hg] Rin Ramirze Other [facility] Other 10-22-2022 10:00-0400 Respiratory rate 20 /min Rin Ramirez Other [facility] Other 10-22-2022 10:00-0400 SaO2% (BldA) [Mass fraction] 92 % Rin Ramirez Other [facility] Other 10-22-2022 10:00-0400 Systolic blood pressure 146 mm[Hg] Rin Ramirez Other [facility] Other 08-19-2022 10:15-0400 Body height 152.4 cm Tondra Mullinsus Other [facility] Other 08-19-2022 10:15-0400 Body mass index (BMI) [Ratio] 39.82 kg/m2 Tondra Mapus Other [facility] Other 08-19-2022 10:15-0400 Body weight 92.49 kg Tondra Mapus Other [facility] Other 08-19-2022 10:15-0400 Diastolic blood pressure 63 mm[Hg] Tondra Mapus Other [facility] Other 08-19-2022 10:15-0400 Respiratory rate 20 /min Tondra Mapus Other [facility] Other 08-19-2022 10:15-0400 SaO2% (BldA) [Mass fraction] 95 % Tondra Mapus Other [facility] Other 08-19-2022 10:15-0400 Systolic blood pressure 136 mm[Hg] Tondra Mapus Other [facility] Other 02-27-2022 10:15-0400 Body height 152.4 cm Tondra Mapus Other [facility] Other 02-27-2022 10:15-0400 Body mass index (BMI) [Ratio] 41.79 kg/m2 Tondra Mapus Other [facility] Other 02-27-2022 10:15-0400 Body weight 97.07 kg Tondra Mapus Other [facility] Other 02-27-2022 10:15-0400 Diastolic blood pressure 55 mm[Hg] Tondra Mapus Other [facility] Other 02-27-2022 10:15-0400 Respiratory rate 20 /min Tondra Mapus Other [facility] Other 02-27-2022 10:15-0400 SaO2% (BldA) [Mass fraction] 97 % Tondra Mapus Other [facility] Other 02-27-2022 10:15-0400 Systolic blood pressure 130 mm[Hg] Chester Lin Other [facility] Other 10-23-2021 11:00-0400 Body height 152.4 cm Aziz Bakhous Other [facility] Other 10-23-2021 11:00-0400 Body mass index (BMI) [Ratio] 44.05 kg/m2 Aziz Bakhous Other [facility] Other 10-23-2021 11:00-0400 Body temperature 97.5 [degF] Aziz Bakhous Other [facility] Other 10-23-2021 11:00-0400 Body weight 102.33 kg Aziz Bakhous Other [facility] Other 10-23-2021 11:00-0400 Diastolic blood pressure 72 mm[Hg] Aziz Bakhous Other [facility] Other 10-23-2021 11:00-0400 Respiratory rate 20 /min Aziz Bakhous Other [facility] Other 10-23-2021 11:00-0400 SaO2% (BldA) [Mass fraction] 94 % Aziz Bakhous Other [facility] Other 10-23-2021 11:00-0400 Systolic blood pressure 135 mm[Hg] Aziz Bakhous Other [facility] Other 05-23-2021 10:15-0500 Body height 152.4 cm Tondra Mapus Other [facility] Other 05-23-2021 10:15-0500 Body mass index (BMI) [Ratio] 43.25 kg/m2 Tondra Mapus Other [facility] Other 05-23-2021 10:15-0500 Body weight 100.47 kg Tondra Mapus Other [facility] Other 05-23-2021 10:15-0500 Diastolic blood pressure 57 mm[Hg] Tondra Mapus Other [facility] Other 05-23-2021 10:15-0500 Respiratory rate 20 /min Tondra Mapus Other [facility] Other 05-23-2021 10:15-0500 SaO2% (BldA) [Mass fraction] 96 % Tondra Mapus Other [facility] Other 05-23-2021 10:15-0500 Systolic blood pressure 131 mm[Hg] Tondra Mapus Other [facility] Other Encounters Encounter Date Encounter Type Care Provider Facility Start: 07-30-2023 End: 07-30-2023 ambulatory [facility] Start: 07-30-2023 End: 07-30-2023 Office outpatient visit 25 minutes Cole Krishnan MD Work Phone: [facility] Comment on above: PAF (paroxysmal atri al fibrillation) ([facility]) (Primary Dx); Hyperlipidemia, unspecified hyperlipidemia type; Benign hypertensive heart disease without congestive heart failure Start: 07-30-2023 End: 07-30-2023 Follow-up encounter [facility] Comment on above: PA[place] ([place]oxysmal atri al fibrillation) [place] [place] Start: 07-29-2023 Telephone encounter Enedelia garay [facility] Start: 07-21-2023 Orders Only Alicia Galvan RN [facility] Comment on above: Shortness of breath; Chronic obstructive pulmonary disease, unspecified COPD type [place] [place] Start: 07-18-2023 End: 07-18-2023 ambulatory [facility] Start: 07-18-2023 End: 07-18-2023 Follow-up encounter [facility] Comment on above: PAF (paroxysmal atri al fibrillation) [place] [place] ([place] Start: 07-10-2023 End: 07-10-2023 ambulatory [facility] Start: 07-10-2023 End: 07-10-2023 Follow-up encounter [facility] Comment on above: PAF (paroxysmal atri al fibrillation) [place] [place] (Primary [place]x) Start: 07-02-2023 End: 07-03-2023 ambulatory ANITA MCCOY [facility] Start: 06-26-2023 End: 06-26-2023 [facility] Start: 06-26-2023 End: 06-26-2023 Follow-up encounter [facility] Comment on above: PAF (paroxysmal atri al fibrillation) [place] [place] ([place]x) Start: 06-20-2023 End: 07-18-2023 ambulatory [facility] Start: 06-17-2023 End: 06-17-2023 ambulatory IONA DELAROSA [facility] Start: 06-17-2023 End: 06-17-2023 Office outpatient visit 15 minutes Iona Delarosa MD Work Phone: [facility] Comment on above: PAF (paroxysmal atri al fibrillation) [place] [place] ([place]x); Benign hypertensive heart disease without congestive heart failure; 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 [place] [place] Shortness of breath; COPD with acute exacerbation [place] [place] Start: 06-17-2023 End: 06-17-2023 [facility] Comment on above: PAF (paroxysmal atri al fibrillation) [place] [place] (Primary Dx) Start: 06-16-2023 Telephone encounter Enedelia garay [facility] Start: 06-10-2023 End: 06-10-2023 ambulatory [facility] Start: 06-10-2023 End: 06-10-2023 Follow-up encounter [facility] Comment on above: PAF (paroxysmal atri al fibrillation) [place] [place] [place] (Primary Dx) Start: 06-09-2023 End: 06-09-2023 ambulatory Chester Lin Other [facility] Other Start: 06-09-2023 Telephone encounter Chester Lin [facility] Start: 06-05-2023 End: 06-05-2023 ambulatory LUCI GREEN Not Available Start: 06-05-2023 End: 06-05-2023 Follow-up encounter [facility] Comment on above: PAF (paroxysmal atri al fibrillation) [place] [place] (Primary [place]x) Start: 06-03-2023 End: 06-03-2023 ambulatory Rin Ramirez Other [facility] Other Start: 06-03-2023 Telephone encounter Rin Ramirez [facility] Start: 06-02-2023 End: 06-03-2023 ambulatory ANIKA HENRY [facility] Start: 06-02-2023 End: 06-02-2023 Follow-up encounter [facility] Comment on above: PAF (paroxysmal atri al fibrillation) ([facility]) (Primary Dx) Start: 05-28-2023 End: 07-09-2023 ambulatory [place] Manoj JIMENEZ [facility] Start: 05-28-2023 End: 05-28-2023 Office outpatient visit 25 minutes Tr Jimenez PRESS SETUP OPERATOR-REGISTRATION MANAGER Work Phone: [facility] Comment on above: PAF (paroxysmal atri al fibrillation) (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 Start: 05-27-2023 End: 05-27-2023 ambulatory Tondra Mullinsus Other [facility] Other Start: 05-27-2023 Telephone encounter Elza Wolfe [facility] Start: 05-26-2023 End: 05-26-2023 [facility] Start: 05-26-2023 End: 05-26-2023 Follow-up encounter [facility] Comment on above: PAF (paroxysmal atri al fibrillation) [place] [place] [place] (Primary [place]x) Start: 05-21-2023 End: 05-21-2023 [facility] Start: 05-21-2023 End: 05-21-2023 Anticoagulant drug monitoring [facility] Comment on above: PAF (paroxysmal atri al fibrillation) [place] (Primary Dx) Start: 05-06-2023 End: 05-06-2023 ambulatory NAVA SOLIMAN [facility] Start: 04-23-2023 End: 04-23-2023 ambulatory Rin Ramirez Other [facility] Other Start: 04-23-2023 Telephone encounter Rin Ramirez [facility] Start: 04-22-2023 End: 04-22-2023 ambulatory Aziz Bakhous Other [facility] Other Start: 04-22-2023 Office outpatient vi sit 25 minutes Aziz Bakhous [facility] Start: 04-22-2023 End: 04-22-2023 Patient encounter procedure [facility] Work Phone: Start: 04-21-2023 End: 04-21-2023 ambulatory Aziz Bakhous Other [facility] Other Start: 04-21-2023 Telephone encounter Aziz Bakhous [facility] Start: 02-19-2023 (DM) Diabetes Tondra Delia [facility] Start: 02-19-2023 End: 02-20-2023 ambulatory Tondra K Mapus [facility] Other Start: 02-12-2023 End: 02-12-2023 ambulatory Tondra Mapus Other [facility] Other Start: 02-12-2023 Nursing evaluation o f patient and report Tondra Susannaus [facility] Start: 01-24-2023 End: 01-24-2023 ambulatory Tondra Mapus Other [facility] Other Start: 01-24-2023 Telephone encounter Tondra Mapus [facility] Start: 10-30-2022 End: 10-30-2022 ambulatory Tondra Mapus Other [facility] Other Start: 10-30-2022 Telephone encounter Tondra Mapus [facility] Start: 10-22-2022 End: 10-22-2022 ambulatory Aziz Bakhous Other [facility] Other Start: 10-22-2022 Office outpatient vi sit 25 minutes Aziz Bakhous [facility] Start: 10-16-2022 ambulatory ANIKA HENRY Facility: [facility] Start: 08-20-2022 End: 08-20-2022 ambulatory Tondra Mapus Other [facility] Other Start: 08-20-2022 Telephone encounter Tondra Mapus [facility] Start: 08-19-2022 (DM) Diabetes Tondra Mapus [facility] Start: 08-19-2022 End: 08-19-2022 ambulatory Tondra Mapus Other [facility] Other Start: 08-02-2022 End: 08-02-2022 ambulatory Tondra Mapus Other [facility] Other Start: 08-02-2022 Telephone encounter Tondra Mapus [facility] Start: 05-30-2022 End: 05-30-2022 ambulatory Tondra Mapus Other [facility] Other Start: 05-30-2022 Telephone encounter Tondra Mapus [facility] Start: 05-01-2022 End: 05-01-2022 ambulatory Tondra Mapus Other [facility] Other Start: 05-01-2022 Telephone encounter Tondra Mapus [facility] Start: 04-01-2022 End: 04-01-2022 ambulatory Tondra Mapus Other [facility] Other Start: 04-01-2022 Telephone encounter Tondra Mapus [facility] Start: 02-27-2022 (DM) Diabetes Tondra Mapus [facility] Start: 02-27-2022 End: 02-27-2022 ambulatory Tondra Mapus Other [facility] Other Start: 01-28-2022 End: 01-28-2022 ambulatory Becca Michael Other [facility] Other Start: 01-28-2022 Telephone encounter Becca Michael [facility] Start: 01-09-2022 End: 01-09-2022 ambulatory Tondra Mapus Other [facility] Other Start: 01-09-2022 Telephone encounter Tondra Mapus [facility] Start: 12-31-2021 End: 12-31-2021 ambulatory Tondra Mapus Other [facility] Other Start: 12-31-2021 Telephone encounter Tondra Mapus [facility] Start: 12-17-2021 End: 12-17-2021 ambulatory Tondra Mapus Other [facility] Other Start: 12-17-2021 Telephone encounter Tondra Mapus [facility] Start: 11-25-2021 End: 11-25-2021 ambulatory Tondra Mapus Other [facility] Other Start: 11-25-2021 Telephone encounter Tondra Mapus [facility] Start: [facility]-02-2021 [facility] Injection Marixa Fitt [facility] Start: 11-02-2021 End: 11-02-2021 ambulatory Marixa Fitt Other [facility] Other Start: 10-30-2021 End: 10-31-2021 ambulatory ANIKA ELAINE Facility:[facility] Start: 10-26-2021 End: 10-26-2021 ambulatory Tondra Mapus Other [facility] Other Start: 10-26-2021 Telephone encounter Tondra Mapus [facility] Start: 10-23-2021 End: 10-23-2021 ambulatory Rin Ramirez Other [facility] Other Start: 10-23-2021 Office outpatient vi sit 15 minutes Azwalter Darbys [facility] Start: 10-22-2021 End: 10-22-2021 ambulatory Tondra Mapus Other [facility] Other Start: 10-22-2021 Telephone encounter Tondra Mapus [facility] Start: 09-10-2021 End: 09-10-2021 ambulatory Tondra Mapus Other [facility] Other Start: 09-10-2021 Telephone encounter Tondra Mapus [facility] Start: 05-23-2021 (DM) Diabetes Tondra Mapus [facility] Start: 05-23-2021 End: 05-23-2021 ambulatory Tondra Mapus Other [facility] Other Procedures Date Procedure Procedure Detail Performing Clinician Start: 07-30-2023 Prothrombin time Jobst Service Work Phone: Start: 07-30-2023 Follow-up visit Follow-up TR JIMENEZ Start: 07-30-2023 Ecg routine ecg w/le ast 12 lds w/i&r Tr Jimenez PRESS SETUP OPERATOR-REGISTRATION MANAGER Work Phone: Start: 07-18-2023 Prothrombin time Jobst Service Work Phone: Start: 07-10-2023 Prothrombin time Jobst Service Work Phone: Start: 06-26-2023 Prothrombin time Jobst Service Work Phone: Start: 06-17-2023 Prothrombin time Jobst Service Work Phone: Start: 06-10-2023 Prothrombin time Jobst Service Work Phone: Start: 06-05-2023 Prothrombin time Jobst Service Work Phone: Start: 06-02-2023 Prothrombin time Jobst Service Work Phone: Start: 05-28-2023 Ecg routine ecg w/le ast 12 lds w/i&r Tr Jimenez PRESS SETUP OPERATOR-REGISTRATION MANAGER Work Phone: Start: 05-26-2023 Prothrombin time Jobst Service Work Phone: Start: 05-21-2023 Prothrombin time Jobst Service Work Phone: Start: 05-09-2023 Adult depression scr eening assessment [facility] 1 Start: 02-14-2014 Colonoscopy [facility] 1 Plan of Treatment Date Care Activity Detail Author Start: 07-29-2024 Adult BMI Screening Adult BMI Screen ing [facility] Start: 07-29-2024 Tobacco Screening Tobacco Screening [facility] Start: 06-17-2024 Adult BMI Screening Adult BMI Screen ing [facility] Start: 06-17-2024 Tobacco Screening Tobacco Screening [facility] Start: 05-28-2024 Adult BMI Screening Adult BMI Screen ing [facility] Start: 05-28-2024 Tobacco Screening Tobacco Screening [facility] Start: 05-10-2024 Adult BMI Screening Adult BMI Screen ing [facility] Start: 05-09-2024 Depression Screening Depression Scre ening [facility] Start: 05-09-2024 Tobacco Screening Tobacco Screening [facility] Start: 10-27-2023 End: 10-27-2023 Patient encounter procedure 10/27/2023 2:45 PM EDT [facility] [address] [place] [address] Anita Mccoy MD [address] [facility] [address] [place] [address] [facility] Start: 08-20-2023 End: 08-20-2023 Follow-up encounter 08/20/2023 11:00 AM EDT Follow Up Antico[facility] [address] [place] [address] [facility] Start: 07-30-2023 End: 07-30-2023 Patient encounter procedure 07/30/2023 12:30 PM EDT Office Visit [facility] [address] [place] [address] Cole Krishnan MD [address] [place] [id number] Tr Jimenez, PRESS SETUP OPERATOR-REGISTRATION MANAGER [address] [place] [address] [facility] Start: 07-30-2023 End: 07-30-2023 Follow-up encounter 07/30/2023 11:30 AM EDT Follow Up Anticoagulation [facility] [address] [place] [address] [facility] Start: 07-18-2023 End: 07-18-2023 Follow-up encounter 07/18/2023 1:15 PM EST Follow Up Anticoagulation [facility] [address] [place] [address] [facility] Start: 07-10-2023 End: 07-10-2023 Follow-up encounter 07/10/2023 1:15 PM EST Follow Up Anticoagulation [facility] [address] [place] [address] [facility] Start: 07-02-2023 End: 07-02-2023 Patient encounter procedure 07/02/2023 1:00 PM EST Appointment [facility] - Pulmonary Function [address] [place] [address] Anita Mccoy MD [address] [facility] [address] [place] [address] [facility] Start: 06-20-2023 End: 06-20-2023 Follow-up encounter 06/20/2023 1:15 PM EST Follow Up Anticoagulation [facility] [address] [place] [address] [facility] Start: 06-17-2023 End: 06-17-2023 Patient encounter procedure 06/17/2023 1:00 PM EST Office Visit [facility] [address] [facility] [address] [place] [address] Iona Delarosa MD [address] [place] [address] [facility] Start: 06-17-2023 End: 06-17-2023 Follow-up encounter 06/17/2023 12:30 PM EST Follow Up Anticoagulation [facility] [address] [place] [address] [facility] Start: 06-10-2023 End: 06-10-2023 Follow-up encounter 06/10/2023 2:30 PM EST Follow Up Anticoagulation [facility] [address] [place] [address] [facility] Start: 06-05-2023 End: 06-05-2023 Follow-up encounter 06/05/2023 11:45 AM EST Follow Up Anticoagulation [facility] [address] [place] [address] [facility] Start: 06-04-2023 End: 05-28-2024 Basic metabolic 2000 panel - Serum or Plasma Basic Metabolic Panel Lab Routine Benign hypertensive heart disease without congestive heart failure Expected: 06/04/2023 (Approximate), Expires: 05/28/2024 [facility] Comment on above: Expected: 06/04/2023 (Approximate), Expires: 05/28/2024 Start: 06-02-2023 End: 06-02-2023 Follow-up encounter 06/02/2023 1:15 PM EST Follow Up Anticoagulation [facility] [address] [place] [address] [facility] Start: 05-28-2023 End: 05-28-2024 Wireless Telemetry (In Office) [facility] Work Phone: Comment on above: Expected: 05/28/2023 , Expires: 05/28/2024 Start: 05-28-2023 End: 05-28-2023 Patient encounter procedure 05/28/2023 1:00 PM EST Office Visit [facility] [address] [id number] Tr Jimenez, PRESS SETUP OPERATOR-REGISTRATION MANAGER [address] [place] [address] [facility] Start: 05-26-2023 End: 05-26-2023 Follow-up encounter 05/26/2023 1:45 PM EST Follow Up Anticoagulation [facility] [address] [place] [address] [facility] Start: 02-14-2017 Screening for malign ant neoplasm of colon Colonoscopy [facility] Start: 2005 Fall Risk Screening Fall Risk Screen ing [facility] Start: 1990 Administration of varicella zoster vaccine Zoster (Shingles) Vaccine (1 of 2) [facility] Start: 1959 DTaP,Tdap and Td Vaccines (1 - Tdap) DTaP,Tdap and Td Vaccines (1 - Tdap) [facility] Start: 1958 Adult BMI Follow Up Plan Adult BMI F ollow Up Plan [facility] Start: 1940 Medicare Annual Well ness Visit Medicare Annual Wellness Visit [facility] End: 05-28-2024 Hepatic function 2000 panel - Serum or Plasma Hepatic function panel Lab Routine long-term current use of amiodarone 1 Occurrences starting 05/28/2023 until 05/28/2024 [facility] Comment on above: 1 Occurrences starti ng 05/28/2023 until 05/28/2024 End: 05-28-2024 Thyroid profile includes TSH FT4 Thyroid profile includes TSH FT4 Lab Routine 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 1 Occurrences starting 05/28/2023 until 05/28/2024 [facility] Comment on above: 1 Occurrences starti ng 05/28/2023 until 05/28/2024 Immunizations Immunization Date Immunization Notes Care Provider Fa cility 02-19-2023 Covid-19, Mrna, Lnp- s, Pf,anthony-sucrose,30 Mcg/0.3ml Fall23 [facility] 1 [facility] 02-19-2023 Influenza Vaccine, Quadrivalent, Adjuvanted [facility] 1 [facility] 02-19-2023 RSV, bivalent, prote in subunit RSVpreF, diluent reconstituted, 0.5 mL, PF [facility] 1 [facility] 03-11-2022 influenza virus vaccine, unspecified formulation [facility] 1 [facility] 05-12-2021 influenza virus vaccine, unspecified formulation P[facility] 1 [facility] 03-12-2021 Influenza, High-dose , Quadrivalent P[facility] 1 [facility] 08-04-2020 COVID-19 Vaccine Zoya - Documentation Purposes Only Chester Lin Other [facility] 02-09-2020 Influenza, High-dose , Quadrivalent P[facility] 1 [facility] 02-01-2020 influenza virus vaccine, unspecified formulation P[facility] 1 [facility] 01-21-2018 influenza, high dose seasonal, preservative-free P[facility] 1 [facility] 06-19-2017 pneumococcal conjuga te vaccine, 13 valent Pmh 1 [facility] 03-19-2017 influenza virus vaccine, unspecified formulation P[facility] 1 [facility] 03-19-2016 seasonal influenza, intradermal, preservative free Pmh 1 [facility] 02-06-2016 influenza, seasonal, injectable, preservative free Pmh 1 [facility] 03-31-2015 pneumococcal conjuga te vaccine, 13 valent Pmh 1 [facility] 03-28-2015 influenza, seasonal, injectable Chester Mullinsus Other [facility] Other 03-19-2015 pneumococcal polysaccharide vaccine, 23 valent Pmh 1 [facility] 02-14-2015 influenza, seasonal, injectable Pmh 1 [facility] 03-31-2014 influenza, seasonal, injectable Pmh 1 [facility] 03-04-2012 influenza virus vaccine, whole virus P[facility] 1 [facility] 03-04-2011 influenza virus vaccine, whole virus P[facility] 1 [facility] Payers Date Payer Category Payer Self-pay [id number] 2017 Unknown [id number] 2015 Medicare ANTHEM MEDICARE ANTHEM MEDICARE ADVANTAGE [id number] 2015-Present [phone] [address] [place] [address] [id number] 1959 Medicare [id number] 1940 Unknown [id number] [id number] 1940 Unknown [id number] 2.16.840.1.520084.3.579.2.593 1940 Unknown [id number] 2.16.840.1.682516.3.579.2.125 9 1940 Unknown [id number] 2.16.840.1.849125.3.579.2.128 1940 Unknown [id number] 2.16.840.1.407803.3.579.2.128 1940 Unknown [id number] 2.16.840.1.781028.3.579.2.128 1940 Unknown [id number] 2.16.840.1.295059.3.579.2.128 1940 Unknown [id number] 2.16.840.1.213681.3.579.2.128 1940 Unknown [id number] 2.16.840.1.041548.3.579.2.128 1940 Unknown [id number] 2.16.840.1.287580.3.579.2.128 1940 Unknown [id number] 2.16.840.1.973985.3.579.2.128 1940 Unknown [id number] 2.16.840.1.650156.3.579.2.128 1940 Unknown [id number] 2.16.840.1.682807.3.579.2.128 1940 Unknown [id number] 2.16.840.1.542678.3.579.2.128 1940 Unknown [id number] 2.16.840.1.070792.3.579.2.128 1940 Unknown [id number] 2.16.840.1.727622.3.579.2.128 1940 Unknown [id number] 2.16.840.1.717705.3.579.2.128 1940 Unknown [id number] 2.16.840.1.145808.3.579.2.128 1940 Unknown [id number] 2.16.840.1.007489.3.579.2.128 6 1940 Unknown [id number] 2.16.840.1.026607.3.579.2.128 6 Unknown Regular Auto/Liability [id number] Unknown [id number] 2.16.840.1.348710.3.579.2.531 Social History Date Type Detail Facility Unknown if ever smoked [facility] Other Start: 06-29-2020 End: 05-09-2023 Sex Assigned At [employer] Other Start: 12-10-2020 End: 03-11-2022 Tobacco smoking status NHIS Never smoked tobacco [facility] Start: 03-11-2022 Tobacco use and exposure Smokeless tobacco non-user [facility] Start: 05-09-2023 End: 07-30-2023 Alcohol intake Current non-drinker of alcohol (finding) [facility] Start: 06-29-2020 End: 05-09-2023 Alcohol intake [facility] How often to you hav e a drink containing alcohol? Never [facility] How many standard drinks containing alcohol do you have on a typical day? Patient does not drink [facility] Start: 1940 Sex Assigned At Not on file P [facility] Start: 1940 Sex Assigned At Female F [facility] Medical Equipment Procedure Code Equipment Code Equipment Origin al Text Equipment Identifier Dates Start: 03-12-2017 Goals Date Patient Goal Desired Activity /State Personal health goal Comment on above: Formatting of this n ote might be different from the original. Evaluation of progress towards goal: return home self care with [facility] support Clinical Notes 06-04-2020 to 07-30-2023 Tr Jimenez APRN-[facility] - 07/30/2023 12:30 PM Jaime Schumacher, [facility] - 07/30/2023 11:30 AM EDTTelephone Encounter - Enedelia Livingston CHILD PROTECTION SPECIALIST - 07/29/2023 10:18 AM EDT Note Date & Type Note Facility 07-30-2023 History of Presen t illness Narrative Margie Martínez Date of visit: 07/30/2023 Date of : 1940 Age: 83 y.o. Patient Active Problem List Diagnosis [place] exacerbation [place] [place] Bigeminy Benign hypertensive heart disease without congestive heart failure Obstructive sleep apnea syndrome Shortness of breath Abnormal result of cardiovascular function study Class 3 severe obesity in adult [place] [place] Ventricular premature beats 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 [place] [place] PAF (paroxysmal 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) [place] [place] Sinus pause Allergies Allergen Reactions Janeth Inhibitors Other (See Comments) Bactrim [Sulfamethoxazole-Trimethoprim] Celecoxib Other (See Comments) High BP Ibuprofen GI Disturbance Penicillins Sulfa (Sulfonamide Antibiotics) Current Outpatient Medications Medication Sig Dispense Refill albuterol (PROVENTIL HFA;VENTOLIN HFA) 90 mcg/actuation inhaler Inhale 2 puffs every 6 (six) hours as needed for wheezing or shortness of breath. 54 g 3 alendronate (FOSAMAX) 70 mg tablet Take 1 tablet (70 mg total) by mouth once a week. b complex vitamins capsule Take 1 capsule by mouth in the morning. bumetanide (BUMEX) 1 mg tablet Take 1 tablet (1 mg total) by mouth daily. carvediloL (COREG) 12.5 mg tablet Take 1 tablet (12.5 mg total) by mouth in the morning and 1 tablet (12.5 mg total) before bedtime. 90 tablet 3 cholecalciferol, vitamin D3, 2,000 units tablet Take 1 tablet (2,000 Units total) by mouth in the morning. fluticasone propion-salmeteroL (ADVAIR) 250-50 mcg/dose DISKUS Inhale 1 puff in the morning and 1 puff before bedtime. 60 each 6 FREESTYLE KUSUM 2 SENSOR kit USE DIRECTED CHANGE EVERY 14 DAYS. hydrALAZINE (APRESOLINE) 50 mg tablet Take 1 tablet (50 mg total) by mouth 3 (three) times a day. 1 TAB WITH BREAKFAST AND LUNCH, 2 TAB AT BEDTIME ipratropium-albuteroL (DUONEB) 0.5 mg-3 mg(2.5 mg base)/3 mL nebulizer Inhale 3 mL by nebulization every 4 (four) hours as needed for wheezing or shortness of breath. 540 mL 2 levothyroxine (SYNTHROID, LEVOTHROID) 125 MCG tablet Take 1 tablet (125 mcg total) by mouth in the morning. 30 tablet 6 loratadine (CLARITIN) 10 mg tablet Take 1 tablet (10 mg total) by mouth as needed. losartan (COZAAR) 100 mg tablet Take 1 tablet (100 mg total) by mouth in the morning. 90 tablet 3 metFORMIN (GLUCOPHAGE) 1000 mg tablet Take 1 tablet (1,000 mg total) by mouth in the morning and 1 tablet (1,000 mg total) before bedtime. NIFEdipine XL (PROCARDIA XL) 60 mg 24 hr tablet Take 1 tablet (60 mg total) by mouth in the morning. 90 tablet 2 omeprazole (PriLOSEC) 20 mg capsule Take 1 capsule (20 mg total) by mouth every morning before breakfast. oxygen Inhale continuously. OZEMPIC 0.25 mg or 0.5 mg(2 mg/1.5 mL) pen injector INJECT 0.25MG SUBCUTANEOUSLY ONCE WEEKLY FOR 28 DAYS spironolactone (ALDACTONE) 25 mg tablet Take 1 tablet (25 mg total) by mouth in the morning. warfarin (COUMADIN) 2.5 mg tablet Take 0.5-1 tablets (1.25-2.5 mg total) by mouth in the evening. 90 tablet 1 amiodarone (PACERONE) 200 mg tablet Take 1 tablet (200 mg total) by mouth in the morning. 90 tablet 2 rosuvastatin (CRESTOR) 5 mg tablet Take 1 tablet (5 mg total) by mouth in the morning. 90 tablet 2 No current facility-administered medications for this visit. Chief Complaint Patient presents with Follow-up EST PT 9 WEEK FU Med Refill Amiodarone and crestor History of Present Illness Margie Martínez female here on follow-up to discuss her 30 day monitor due to history of 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, COPD with intermittent O2 use diastolic heart failure, hypertension, hypothyroidism. Patient was seen by EP service upon transfer to [facility] from [place] in April. There was reports of post-conversion pause approximately 6 seconds while at [place] though records were not obtainable for review. Patient has not had any episodes syncope though she does have intermittent dizziness. She was placed on amiodarone for which he continues to 100 mg q.day. recent PFT with PVC 70% predicted, normal FEV1. Thirty day monitor with 1% burden of AFib average heart rate 67 beats per minute. Unclear association of lightheadedness while in sinus rhythm. No pauses. Rare PVCs AST/ALT within acceptable limits. TSH mildly elevated from lab work in May Discuss the monitor results along with additional treatment for her hypertension. She currently takes hydralazine, carvedilol, Procardia, losartan. She will take an additional dose of hydralazine on occasion. Past Medical History: Diagnosis Date Arthritis Cataract removed 2011 bilateral Chronic kidney disease COPD (chronic obstructive pulmonary disease) [place] [place] DM type 2 (diabetes mellitus, type 2) [place] [place] HTN (hypertension) Hyperlipidemia 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 [place] [place] 09/03/2021 Hypothyroid KELECHI (obstructive sleep apnea) No data recorded No data recorded No data recorded Past Surgical History: Procedure Laterality Date APPENDECTOMY BLADDER SUSPENSION X 2 CARDIAC CATHETERIZATION 10/2009 CARPAL TUNNEL RELEASE CATARACT EXTRACTION CHOLECYSTECTOMY COLONOSCOPY ESOPHAGOGASTRODUODENOSCOPY FOOT SURGERY HIATAL HERNIA REPAIR PARTIAL HYSTERECTOMY REPLACEMENT TOTAL KNEE BILAT REPLACEMENT TOTAL KNEE BILATERAL TONSILLECTOMY Family History Problem Relation Age of Onset Stroke Mother Diabetes Mother Hypertension Mother Bowel dysfunction Father Social History Socioeconomic History Marital status: Spouse name: Not on file Number of children: Not on file Years of education: Not on file Highest education level: Not on file Occupational History Not on file Tobacco Use Smoking status: Never Smokeless tobacco: Never Vaping Use Vaping Use: Never used Substance and Sexual Activity Alcohol use: No Alcohol/week: 0.0 standard drinks of alcohol Drug use: No Sexual activity: Defer Other Topics Concern Caffeine Use Yes Comment: 3 large cups daily Social History Narrative Not on file Social Determinants of Health Financial Resource Strain: Not on file Food Insecurity: No Food Insecurity (06/17/2023) Hunger Screening Food Insecurity - Worry: Never True Food Insecurity - Inability: Never True Transportation Needs: Not on file Physical Activity: Not on file Stress: Not on file Social Connections: Not on file Interpersonal Safety: Not on file Housing Instability: Low Risk (05/10/2023) Housing Instability Housing Instability: No Review of Systems Review of Systems Constitutional: Positive for malaise/fatigue. HENT: Negative for nosebleeds. Respiratory: Positive for shortness of breath. Negative for cough, sleep disturbances due to breathing and wheezing. Hematologic/Lymphatic: Does not bruise/bleed easily. Musculoskeletal: Positive for arthritis and joint pain. Negative for joint swelling, muscle cramps and muscle weakness. Gastrointestinal: Negative for bloating, abdominal pain, heartburn, nausea and vomiting. Neurological: Negative for dizziness, headaches, light-headedness, numbness, seizures, tremors, vertigo and weakness. CARDIOVASCULAR: Please review HPI. Physical Examination General appearance: Alert, oriented and cooperative. In no acute distress. Skin: Warm and dry to touch. Head: Normocephalic, without obvious abnormality, atraumatic. Ears, Nose, Mouth, Throat: Throat clear without erythema or exudate. Dentition intact. Eyes: Conjunctivae unremarkable, EOM intact. Neck: No JVD, No carotid bruit. Neck supple, trachea midline. Respiratory: Clear to auscultation bilaterally, no use of accessory muscles. Cardiovascular: RRR with normal S1 and S2 with no murmurs. Gastrointestinal: Soft, non-tender. Bowel sounds normal. Musculoskeletal: No peripheral edema. Neurologic: Oriented to time, person and place, affect appropriate. No focal/major motor defects noted. Psychiatric: Appropriate mood, memory and judgement. VITAL SIGNS: BP 140/80 Pulse 59 Ht 165.1 cm (5' 5 ) Wt 93.4 kg (206 lb) LMP (LMP Unknown) BMI 34.28 kg/m Orders Placed or Reconciled This Encounter Medications amiodarone (PACERONE) 200 mg tablet Sig: Take 1 tablet (200 mg total) by mouth in the morning. Dispense: 90 tablet Refill: 2 rosuvastatin (CRESTOR) 5 mg tablet Sig: Take 1 tablet (5 mg total) by mouth in the morning. Dispense: 90 tablet Refill: 2 Medications Discontinued During This Encounter Medication Reason pantoprazole (PROTONIX) 40 mg EC tablet Discontinued by another clinician rosuvastatin (CRESTOR) 5 mg tablet Reorder amiodarone (PACERONE) 200 mg tablet Reorder IMPRESSIONS/PLAN 1. PAF (paroxysmal 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) ([facility]) - amiodarone (PACERONE) 200 mg tablet; Take 1 tablet (200 mg total) by mouth in the morning. Dispense: 90 tablet; Refill: 2 - POCT EKG 2. Hyperlipidemia, unspecified hyperlipidemia type - rosuvastatin (CRESTOR) 5 mg tablet; Take 1 tablet (5 mg total) by mouth in the morning. Dispense: 90 tablet; Refill: 2 3. Benign hypertensive heart disease without congestive heart failure 1. Paroxysmal 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. Recent Holter monitor with a 1% burden. On amiodarone. Mild elevated TSH. 2. Hypertension. Longstanding history. On several agents as listed. Blood pressure improved today. She will take additional dosing of hydralazine in the evening at times. Maintaining losartan, Procardia , carvedilol 3. Diastolic heart failure. Aldactone, carvedilol, Bumex 4. High risks antiarrhythmic. Continues on amiodarone. PFT, LFT, TSH completed. Continue monitoring. EKG sinus rhythm Recommend follow-up with EP physician 6 months or sooner if warranted Patient seen while Dr. Krishnan was immediately available in the office suite TODAYS ORDERS Orders Placed This Encounter Procedures POCT EKG FOLLOW UP Return in about 6 months (around 01/30/2024) for Next scheduled follow up with vg. PCP: RASHAD MERCHANT Referring Physician: RASHAD Cabrera [address] [place] [address] RASHAD Duff 07/30/23 1323 documented in this encounter [facility] 07-30-2023 History of Presen t illness Narrative 15 minute [id number] follow-up anticoagulation appointment. INR performed in office per protocol. INR 2.3 (goal range: 2.0-3.0). Patient reports: Taking warfarin dosing as documented. Missed or extra doses of warfarin: No Changes to medications: YES Hydralazine 1 tab AM/noon and 2 PM Changes to lifestyle (diet / alcohol / smoking / activity): No Recent emergency department visit / hospitalization / health changes / new contraindication to current anticoagulant: No Signs/symptoms of bruising/bleeding or clotting or any intolerable adverse events: YES Bruises on hands/arms; these will heal then reappear. Patient is monitoring Upcoming procedures: No Anticoagulant prescription needed: No Seen referring provider in the last year Duration of therapy reviewed Assessment: INR is remaining stable in therapeutic range on current warfarin regimen. Plan: Patient instructed to continue warfarin 2.5 mg Sun/Tue/Thurs and 1.25 mg AOD. Check INR in 3 week(s). Patient verbalizes understanding of anticoagulant dosing instructions and information discussed. Dosing regimen, counseling, and follow-up appointment were provided to the patient. Patient reminded to call with questions or any medication changes. Patient instructed to seek medical attention if any major bleeding/bleeding that persists or worsens. Alie Schumacher [facility] 07/30/23 1153 documented in this encounter [facility] 07-29-2023 Miscellaneous Notes Called patient to remind them to bring their most current copy of their medication list with them to their appt. Patient verbalizes understanding. documented in this encounter [facility] 07-29-2023 Telephone encounter Note Called patient to remind them to bring their most current copy of their medication list with them to their appt. Patient verbalizes understanding. [facility] 07-21-2023 History of Presen t illness Narrative Albuterol refill sent to [facility] per pt request. documented in this encounter [facility] 07-18-2023 History of Presen t illness Narrative 15 minute [id number] follow-up anticoagulation appointment. INR performed in office per protocol. INR 2.2 (goal range: 2.0-3.0). Patient reports: Taking warfarin dosing as documented. Missed or extra doses of warfarin: No Changes to medications: No Changes to lifestyle (diet / alcohol / smoking / activity): No Recent emergency department visit / hospitalization / health changes / new contraindication to current anticoagulant: No Signs/symptoms of bruising/bleeding or clotting or any intolerable adverse events: No Upcoming procedures: No Anticoagulant prescription needed: No Seen referring provider in the last year Duration of therapy reviewed Assessment: INR is remaining stable in therapeutic range on current warfarin regimen. Plan: Patient instructed to continue warfarin 2.5 mg Sun/Tue/Thurs and 1.25 mg AOD. Check INR in 2 week(s) d/t coming in for cardio appt. If remaining stable, will extend f/u back to 4 weeks at that time. Patient verbalizes understanding of anticoagulant dosing instructions and information discussed. Dosing regimen, counseling, and follow-up appointment were provided to the patient. Patient reminded to call with questions or any medication changes. Patient instructed to seek medical attention if any major bleeding/bleeding that persists or worsens. Alie Schumacher RP 07/18/23 1318 documented in this encounter [facility] 07-10-2023 History of Presen t illness Narrative 15 minute [id number] follow-up anticoagulation appointment. INR performed in office per protocol. INR 1.4 (goal range: 2.0-3.0). Patient reports: Taking warfarin dosing as documented. Missed or extra doses of warfarin: No Changes to medications: No Changes to lifestyle (diet / alcohol / smoking / activity): YES Taking probiotic daily Patient notes rolanda on Friday and ryan richardson yesterday Recent emergency department visit / hospitalization / health changes / new contraindication to current anticoagulant: YES Stools have improved slightly with additional of probiotic Signs/symptoms of bruising/bleeding or clotting or any intolerable adverse events: No Upcoming procedures: No Anticoagulant prescription needed: No Seen referring provider in the last year Duration of therapy reviewed Assessment: INR is subtherapeutic. This may be related to sauerkraut earlier this week, although I would not anticipate that alone to drop the INR this much. May be related to changes in gut servando with probiotic. We will increase weekly dose given trend. Patient uses medication box for compliance and reports no missed doses. Plan: Patient instructed to increase to warfarin 3.75 mg 07/10, then increase weekly dose to 2.5 mg Sun/Tue/Thurs and 1.25 mg AOD. Check INR in 1 week(s). Patient verbalizes understanding of anticoagulant dosing instructions and information discussed. Dosing regimen, counseling, and follow-up appointment were provided to the patient. Patient reminded to call with questions or any medication changes. Patient instructed to seek medical attention if any major bleeding/bleeding that persists or worsens. Alie Schumacher RP 07/10/23 1328 Electronically signed by Alie Schumacher [facility] at 07/10/2023 1:28 PM EST documented in this encounter [facility] 06-26-2023 History of Presen t illness Narrative 15 minute [id number] follow-up anticoagulation appointment. INR performed in office per protocol. INR 1.8 (goal range: 2.0-3.0). Patient reports: Taking warfarin dosing as documented. Missed or extra doses of warfarin: No Changes to medications: No Changes to lifestyle (diet / alcohol / smoking / activity): No Recent emergency department visit / hospitalization / health changes / new contraindication to current anticoagulant: No Signs/symptoms of bruising/bleeding or clotting or any intolerable adverse events: No Upcoming procedures: No Anticoagulant prescription needed: No Seen referring provider in the last year Duration of therapy reviewed Assessment: INR is slightly subtherapeutic following dose reduction. However, amiodarone was started 05/10/23, therefore anticipate INR to rise over the next 2 weeks. Therefore, we will continue with 11.25 mg/weekly at this time Plan: Patient instructed to continue warfarin 2.5 mg Fri/Th and 1.25 mg AOD. Check INR in 2 week(s). Patient verbalizes understanding of anticoagulant dosing instructions and information discussed. Dosing regimen, counseling, and follow-up appointment were provided to the patient. Patient reminded to call with questions or any medication changes. Patient instructed to seek medical attention if any major bleeding/bleeding that persists or worsens. Alie Schumacher RPH 06/26/23 1315 documented in this encounter [facility] 06-17-2023 History of Presen t illness Narrative Margie Liutom Date of visit: 06/17/2023 Date of : 1940 Age: 82 y.o. 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 [place] [place] Ventricular premature beats 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 [place] [place] PAF (paroxysmal 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) [place] [place] Sinus pause Allergies Allergen Reactions Janeth Inhibitors Other (See Comments) Bactrim [Sulfamethoxazole-Trimethoprim] Celecoxib Other (See Comments) High BP Ibuprofen GI Disturbance Penicillins Sulfa (Sulfonamide Antibiotics) Current Outpatient Medications Medication Sig Dispense Refill albuterol (PROVENTIL HFA;VENTOLIN HFA) 90 mcg/actuation inhaler Inhale 2 puffs every 6 (six) hours as needed for wheezing or shortness of breath. 54 g 3 alendronate (FOSAMAX) 70 mg tablet Take 1 tablet (70 mg total) by mouth once a week. amiodarone (PACERONE) 200 mg tablet Take 1 tablet (200 mg total) by mouth in the morning. b complex vitamins capsule Take 1 capsule by mouth in the morning. bumetanide (BUMEX) 1 mg tablet Take 1 tablet (1 mg total) by mouth daily. carvediloL (COREG) 12.5 mg tablet Take 1 tablet (12.5 mg total) by mouth in the morning and 1 tablet (12.5 mg total) before bedtime. 90 tablet 3 cholecalciferol, vitamin D3, 2,000 units tablet Take 1 tablet (2,000 Units total) by mouth in the morning. fluticasone propion-salmeteroL (ADVAIR) 250-50 mcg/dose DISKUS Inhale 1 puff in the morning and 1 puff before bedtime. 60 each 6 FREESTYLE KUSUM 2 SENSOR kit USE DIRECTED CHANGE EVERY 14 DAYS. hydrALAZINE (APRESOLINE) 50 mg tablet Take 1 tablet (50 mg total) by mouth 3 (three) times a day. 1 TAB WITH BREAKFAST AND LUNCH, 2 TAB AT BEDTIME ipratropium-albuteroL (DUONEB) 0.5 mg-3 mg(2.5 mg base)/3 mL nebulizer Inhale 3 mL by nebulization every 4 (four) hours as needed for wheezing or shortness of breath. 540 mL 2 levothyroxine (SYNTHROID, LEVOTHROID) 125 MCG tablet Take 1 tablet (125 mcg total) by mouth in the morning. 30 tablet 6 loratadine (CLARITIN) 10 mg tablet Take 1 tablet (10 mg total) by mouth as needed. losartan (COZAAR) 100 mg tablet Take 1 tablet (100 mg total) by mouth in the morning. 90 tablet 3 metFORMIN (GLUCOPHAGE) 1000 mg tablet Take 1 tablet (1,000 mg total) by mouth in the morning and 1 tablet (1,000 mg total) before bedtime. NIFEdipine XL (PROCARDIA XL) 60 mg 24 hr tablet Take 1 tablet (60 mg total) by mouth in the morning. 90 tablet 2 omeprazole (PriLOSEC) 20 mg capsule Take 1 capsule (20 mg total) by mouth every morning before breakfast. oxygen Inhale continuously. OZEMPIC 0.25 mg or 0.5 mg(2 mg/1.5 mL) pen injector INJECT 0.25MG SUBCUTANEOUSLY ONCE WEEKLY FOR 28 DAYS pantoprazole (PROTONIX) 40 mg EC tablet Take 1 tablet (40 mg total) by mouth every morning before breakfast. rosuvastatin (CRESTOR) 5 mg tablet TAKE 1 TABLET BY MOUTH IN THE MORNING 90 tablet 1 spironolactone (ALDACTONE) 25 mg tablet Take 1 tablet (25 mg total) by mouth in the morning. warfarin (COUMADIN) 2.5 mg tablet Take 0.5-1 tablets (1.25-2.5 mg total) by mouth in the evening. 90 tablet 1 amiodarone (PACERONE) 200 mg tablet Take 1 tablet (200 mg total) by mouth 2 (two) times a day for 21 days, THEN 1 tablet (200 mg total) daily for 90 days. 132 tablet 0 budesonide-formoteroL (SYMBICORT) 160-4.5 mcg/actuation inhaler Inhale 2 puffs in the morning and 2 puffs before bedtime. 30.6 g 3 No current facility-administered medications for this visit. Chief Complaint Patient presents with Follow-up HOSP F/U 05/08--L/S MBE-LABS -CHEST XRAY -ECHO -SCHD APPT W/PT History of Present Illness Margie Martínez Is an 82-year-old female here on follow-up after recent hospitalization. She was recently diagnosed with 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 in placed on appropriate anticoagulation Eliquis 5 mg b.I.d.. She is since switched to warfarin due to cost. He is also treated for diastolic heart failure, hypertension, PVCs and COPD on daytime O2, hypothyroidism. She was seen by EP last time and they were concerned about conversion sinus pauses. She was started on amiodarone and dose of beta-blockers was reduced currently on amiodarone. She was asked to wear event monitor on amiodarone unfortunately the post monitor did not work and she has now got the 2nd monitor which she is going to wear tonXymogen. She is on long-term oxygen she is wheelchair-bound. She reports no lightheadedness dizziness or syncope. She is chronic exertional shortness of breath. She is lower extremity edema which is unchanged she is on Bumex. Blood pressure is 160/70 she tells me her blood pressure has never been below 160. Past Medical History: Diagnosis Date Arthritis Cataract removed 2011 bilateral Chronic kidney disease COPD (chronic obstructive pulmonary disease) [place] [place] DM type 2 (diabetes mellitus, type 2) [place] [place] HTN (hypertension) Hyperlipidemia 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 [place] [place] 09/03/2021 Hypothyroid KELECHI (obstructive sleep apnea) No data recorded No data recorded No data recorded Past Surgical History: Procedure Laterality Date APPENDECTOMY BLADDER SUSPENSION X 2 CARDIAC CATHETERIZATION 10/2009 CARPAL TUNNEL RELEASE CATARACT EXTRACTION CHOLECYSTECTOMY COLONOSCOPY ESOPHAGOGASTRODUODENOSCOPY FOOT SURGERY HIATAL HERNIA REPAIR PARTIAL HYSTERECTOMY REPLACEMENT TOTAL KNEE BILAT REPLACEMENT TOTAL KNEE BILATERAL TONSILLECTOMY Family History Problem Relation Age of Onset Stroke Mother Diabetes Mother Hypertension Mother Bowel dysfunction Father Social History Socioeconomic History Marital status: Spouse name: Not on file Number of children: Not on file Years of education: Not on file Highest education level: Not on file Occupational History Not on file Tobacco Use Smoking status: Never Smokeless tobacco: Never Vaping Use Vaping Use: Never used Substance and Sexual Activity Alcohol use: No Alcohol/week: 0.0 standard drinks of alcohol Drug use: No Sexual activity: Defer Other Topics Concern Caffeine Use Yes Comment: 3 large cups daily Social History Narrative Not on file Social Determinants of Health Financial Resource Strain: Not on file Food Insecurity: No Food Insecurity (06/17/2023) Hunger Screening Food Insecurity - Worry: Never True Food Insecurity - Inability: Never True Transportation Needs: Not on file Physical Activity: Not on file Stress: Not on file Social Connections: Not on file Interpersonal Safety: Not on file Housing Instability: Low Risk (05/10/2023) Housing Instability Housing Instability: No Review of Systems Review of Systems Respiratory: Positive for cough, shortness of breath and wheezing. Hematologic/Lymphatic: Bruises/bleeds easily. Musculoskeletal: Positive for back pain. Gastrointestinal: Positive for diarrhea. Neurological: Positive for headaches and loss of balance. CARDIOVASCULAR: Please review HPI. Physical Examination General appearance: Alert, oriented and cooperative. In no acute distress. On oxygen, obesity Skin: Warm and dry to touch. Head: Normocephalic, without obvious abnormality, atraumatic. Ears, Nose, Mouth, Throat: Throat clear without erythema or exudate. Dentition intact. Eyes: Conjunctivae unremarkable, EOM intact. Neck: No JVD, No carotid bruit. Neck supple, trachea midline. Respiratory: Clear to auscultation bilaterally, no use of accessory muscles. Cardiovascular: RRR with normal S1 and S2 with no murmurs. Gastrointestinal: Soft, non-tender. Bowel sounds normal. Musculoskeletal: No peripheral edema. Neurologic: Oriented to time, person and place, affect appropriate. No focal/major motor defects noted. Psychiatric: Appropriate mood, memory and judgement. VITAL SIGNS: Ht 165.1 cm (5' 5 ) Wt 91.6 kg (202 lb) LMP (LMP Unknown) BMI 33.61 kg/m Orders Placed or Reconciled This Encounter Medications pantoprazole (PROTONIX) 40 mg EC tablet Sig: Take 1 tablet (40 mg total) by mouth every morning before breakfast. amiodarone (PACERONE) 200 mg tablet Sig: Take 1 tablet (200 mg total) by mouth in the morning. There are no discontinued medications. IMPRESSIONS/PLAN Chronic heart failure with preserved ejection fraction Appears euvolemic, continue Coreg 12.5 b.i.d., Bumex, hydralazine and losartan Continue to monitor weight 2. Paroxysmal 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 Sees EP for conversion pauses. Recently started on amiodarone and dose of beta-blockers with reduced. EP managing monitoring of the amiodarone. She has plans for PFTs. Patient is on home oxygen. She is appointment with EP. She will wear monitor tonight. Off Eliquis now on warfarin due to cost issues. Recent INR 3.2 Anemia hemoglobin 8.6, no obvious bleeding issues 3. Hypertension On multiple medications, reasonably controlled 4. Diabetes mellitus 5. COPD/obstructive sleep apnea On oxygen 6. Chronic kidney disease stage 3 Creatinine 1.58 recent BMP showed normal electrolytes Follow-up with EP after she completes monitor placement. Follow-up in General Cardiology in 6 months TODAYS ORDERS No orders of the defined types were placed in this encounter. FOLLOW UP No follow-ups on file. PCP: RASHAD MERCHANT Referring Physician: RASHAD Cabrera [address] [facility] [place] [address] documented in this encounter [facility] 06-17-2023 History of Presen t illness Narrative 15 minute bpad-jj-oclo follow-up anticoagulation appointment. INR performed in office per protocol. INR 3.2 (goal range: 2.0-3.0). Patient reports: Taking warfarin dosing as documented. Missed or extra doses of warfarin: No Changes to medications: YES Pantoprazole started Changes to lifestyle (diet / alcohol / smoking / activity): No Recent emergency department visit / hospitalization / health changes / new contraindication to current anticoagulant: No Signs/symptoms of bruising/bleeding or clotting or any intolerable adverse events: No Upcoming procedures: No Anticoagulant prescription needed: No Seen referring provider in the last year Duration of therapy reviewed Assessment: INR is slightly elevated, we will reduce weekly dose by 10%. Plan: Patient instructed to decrease to warfarin 2.5 mg Sun/Thurs and 1.25 mg AOD. Check INR in 10 day(s). Patient verbalizes understanding of anticoagulant dosing instructions and information discussed. Dosing regimen, counseling, and follow-up appointment were provided to the patient. Patient reminded to call with questions or any medication changes. Patient instructed to seek medical attention if any major bleeding/bleeding that persists or worsens. Alie Schumacher RPH 06/17/23 1232 documented in this encounter [facility] 06-16-2023 Miscellaneous Notes Called patient to remind them to bring their most current copy of their medication list with them to their appt. Patient verbalizes understanding. documented in this encounter [facility] 06-16-2023 Telephone encounter Note Called patient to remind them to bring their most current copy of their medication list with them to their appt. Patient verbalizes understanding. [facility] 06-10-2023 History of Presen t illness Narrative 15 minute xfmx-iw-olae follow-up anticoagulation appointment. INR performed in office per protocol. INR 2.3 (goal range: 2.0-3.0). Patient reports: Taking warfarin dosing as documented. Missed or extra doses of warfarin: No Changes to medications: YES Amiodarone started 05/10/23; monitor closely until 07/11/23 for impact of this Changes to lifestyle (diet / alcohol / smoking / activity): No Recent emergency department visit / hospitalization / health changes / new contraindication to current anticoagulant: No Signs/symptoms of bruising/bleeding or clotting or any intolerable adverse events: YES Bruise noted on hands; these are healing Upcoming procedures: YES Kidney biopsy to be rescheduled at later date Anticoagulant prescription needed: No Seen referring provider in the last year Duration of therapy reviewed Assessment: INR is remaining stable in therapeutic range on current warfarin regimen. Patient has had 11.25 mg in the last 7 days, therefore we will reduce weekly dose by 10% . Next 7 days 12.5 mg planned. Plan: Patient instructed to decrease to warfarin 2.5 mg Sun/Tue/Thurs and 1.25 mg AOD. Check INR in 1 week(s). Patient verbalizes understanding of anticoagulant dosing instructions and information discussed. Dosing regimen, counseling, and follow-up appointment were provided to the patient. Patient reminded to call with questions or any medication changes. Patient instructed to seek medical attention if any major bleeding/bleeding that persists or worsens. Alie Schumacher RPH 06/10/23 1428 documented in this encounter [facility] 06-05-2023 History of Presen t illness Narrative 15 minute mfdx-nw-hmze follow-up anticoagulation appointment. INR performed in office per protocol. INR 3.5 (goal range: 2.0-3.0). Patient reports: Taking warfarin dosing as documented. Missed or extra doses of warfarin: No Changes to medications: No Changes to lifestyle (diet / alcohol / smoking / activity): No Recent emergency department visit / hospitalization / health changes / new contraindication to current anticoagulant: No Signs/symptoms of bruising/bleeding or clotting or any intolerable adverse events: No Upcoming procedures: YES Kidney biopsy to be rescheduled. Patient to notify [facility] when scheduled Anticoagulant prescription needed: No Seen referring provider in the last year Duration of therapy reviewed Assessment: INR has improved, but remains elevated. Patient instructed to hold 06/05, then start new plan. Patient has had 13.75 mg in the past 7 days. We will target 11.25 mg over the next 7 days and adjust weekly dosing based on response. Plan: Patient instructed to hold warfarin 06/05, then start new plan of 1.25 mg MWF and 2.5 mg AOD. Check INR in 5 day(s). Patient verbalizes understanding of anticoagulant dosing instructions and information discussed. Dosing regimen, counseling, and follow-up appointment were provided to the patient. Patient reminded to call with questions or any medication changes. Patient instructed to seek medical attention if any major bleeding/bleeding that persists or worsens. Alie Schumacher RPH 06/05/23 1132 documented in this encounter [facility] 06-03-2023 Evaluation note Encounter Date Diagnosis Assessment Notes May, Edema (ICD-10 - R60.9) [facility] Other 01-15-2024 History of Present illness Narrative* Alie Schumacher RPH - 06/02/2023 1:15 PM EST 15 minute fnab-fl-kktx follow-up anticoagulation appointment. INR performed in office per protocol. INR 4.7 (goal range: 2.0-3.0). Patient reports: Taking warfarin dosing as documented. Missed or extra doses of warfarin: No Changes to medications: YES Amiodarone started 05/10/23 Patient plans to start probiotic today Patient took an Imodium Diuretic restarted 05/28, hydralazine increased to 50 mg TID Changes to lifestyle (diet / alcohol / smoking / activity): No Recent emergency department visit / hospitalization / health changes / new contraindication to current anticoagulant: YES Patient continues to have loose bowels. Reports these are liquid. Patient is going to call PCP for evaluations Usual amount of swelling in legs, thighs slightly more volume overloaded. Signs/symptoms of bruising/bleeding or clotting or any intolerable adverse events: No Upcoming procedures: YES Patient will be rescheduling kidney biopsy Anticoagulant prescription needed: No Seen referring provider in the last year Duration of therapy reviewed Assessment: INR is elevated likely d/t amiodarone and loose bowels. We will hold x1 with safety check in 3 days. At that time, will reduce weekly dosing based on response to hold. Anticipate 3 days per week of 1.25 mg, Plan: Patient instructed to hold warfarin 06/02, then resume 2.5 mg daily with 1.25 mg Wed. Check INR in 3 day(s). Patient verbalizes understanding of anticoagulant dosing instructions and information discussed. Dosing regimen, counseling, and follow-up appointment were provided to the patient. Patient reminded to call with questions or any medication changes. Patient instructed to seek medical attention if anymajor bleeding/bleeding that persists or worsens. Alie Schumacher [facility] 06/02/23 1424 [facility] History of Present illness Narrative* Tr Jimenez APRN-REGISTRATION MANAGER - 05/28/2023 1:00 PM EST Margie Donte Martínez Date of visit: 05/28/2023 Date of : 1940 Age: 82 y.o. Patient Active Problem List Diagnosis COPD with acute exacerbation [place] [place] Bigeminy Benign hypertensive heart disease without congestive heart failure Obstructive sleep apnea syndrome Shortness of breath Abnormal result of cardiovascular function study Class 3 severe obesity in adult [place] [place] Ventricular premature beats 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 [place] [place] PAF (paroxysmal 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) [place] [place] Sinus pause Allergies Allergen Reactions Janeth Inhibitors Other (See Comments) Bactrim [Sulfamethoxazole-Trimethoprim] Celecoxib Other (See Comments) High BP Ibuprofen GI Disturbance Penicillins Sulfa (Sulfonamide Antibiotics) Current Outpatient Medications Medication Sig Dispense Refill albuterol (PROVENTIL HFA;VENTOLIN HFA) 90 mcg/actuation inhaler Inhale 2 puffs every 6 (six) hours as needed for wheezing or shortness of breath. 54 g 3 alendronate (FOSAMAX) 70 mg tablet Take 1 tablet (70 mg total) by mouth once a week. amiodarone (PACERONE) 200 mg tablet Take 1 tablet (200 mg total) by mouth 2 (two) times a day for 21 days, THEN 1 tablet (200 mg total) daily for 90 days. 132 tablet 0 b complex vitamins capsule Take 1 capsule by mouth in the morning. budesonide-formoteroL (SYMBICORT) 160-4.5 mcg/actuation inhaler Inhale 2 puffs in the morning and 2puffs before bedtime. 30.6 g 3 carvediloL (COREG) 12.5 mg tablet Take 1 tablet (12.5 mg total) by mouth in the morning and 1 tablet (12.5 mg total) before bedtime. 90 tablet 3 cholecalciferol, vitamin D3, 2,000 units tablet Take 1 tablet (2,000 Units total) by mouth in the morning. IDOMOTICS KUSUM 2 SENSOR kit USE DIRECTED CHANGE EVERY 14 DAYS. ipratropium-albuteroL (DUONEB) 0.5 mg-3 mg(2.5 mg base)/3 mL nebulizer Inhale 3 mL by nebulization every 4 (four) hours as needed for wheezing or shortness of breath. 540 mL 2 levothyroxine (SYNTHROID, LEVOTHROID) 100 MCG tablet Take 1 tablet (100 mcg total) by mouth in the morning. loratadine (CLARITIN) 10 mg tablet Take 1 tablet (10 mg total) by mouth as needed. losartan (COZAAR) 100 mg tablet Take 1 tablet (100 mg total) by mouth in the morning. 90 tablet 3 metFORMIN (GLUCOPHAGE) 1000 mg tablet Take 1 tablet (1,000 mg total) by mouth in the morning and 1 tablet (1,000 mg total) before bedtime. NIFEdipine XL (PROCARDIA XL) 60 mg 24 hr tablet Take 1 tablet (60 mg total) by mouth in the morning. 90 tablet 2 omeprazole (PriLOSEC) 20 mg capsule Take 1 capsule (20 mg total) by mouth every morning before breakfast. oxygen Inhale continuously. OZEMPIC 0.25 mg or 0.5 mg(2 mg/1.5 mL) pen injector INJECT 0.25MG SUBCUTANEOUSLY ONCE WEEKLY FOR 28DAYS rosuvastatin (CRESTOR) 5 mg tablet TAKE 1 TABLET BY MOUTH IN THE MORNING 90 tablet 1 spironolactone (ALDACTONE) 25 mg tablet Take 1 tablet (25 mg total) by mouth in the morning. warfarin (COUMADIN) 2.5 mg tablet Take 1 tablet (2.5 mg total) by mouth in the evening. 30 tablet 1 bumetanide (BUMEX) 1 mg tablet Take 1 tablet (1 mg total) by mouth daily. hydrALAZINE (APRESOLINE) 50 mg tablet Take 1 tablet (50 mg total) by mouth 3 (three) times a day. 1TAB WITH BREAKFAST AND LUNCH, 2 TAB AT BEDTIME No current facility-administered medications for this visit. Chief Complaint Patient presents with Follow-up EST PT IP TTH ATRIAL FIB-PER SUELLEN SCHED W/PT History of Present Illness Margie Martínez Is an 82-year-old female here on follow-up after recent hospitalization. She was recently diagnosed with 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 in placed on appropriate anticoagulation Eliquis 5 mg b.I.d.. She is since switched to warfarin due to cost. He is also treated for diastolic heart failure, h ypertension, PVCs and COPD on daytime O2, hypothyroidism. Patient states that she was hospitalized initially at [facility] for symptomatic 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. Upon resolution, she was discharged home though recurrent episodes warranted repeat visit. She was then seen at [facility] where she had episodes of conversion pauses reported. She was transferred then to [facility] evaluated by EP team. Patient was placed on amiodarone for which he is continuing loading dose. She states her medications were adjusted at reduced while she was hospitalized which may have been partially due to dehydration. Her Bumex was discontinued and hydralazine was reduced. On exam today, her blood pressure is quite elevated 200/100. She states at home she is been averaging 160s +. She denies any headache or blurred vision. EKG completed showing normal sinus rhythm with known bifascicular block rates at 65 beats per minute. She has not had any lightheadedness or dizziness, near syncopal episodes since her recent hospitalization. We discussed the indication for amiodarone. Warfarin INRs have been stable. Will increase her hydralazine back to previous dosing 50 mg t.I.d.. Restarting Bumex at 1 mg q.day. She does follow Nephrology. Lab work completed upon discharge showed stable /Acceptable creatinine levels. She states she is having more issues with orthopnea and has not been able to sleep very well. I asked her to call the office this afternoon with a repeat blood pressure evaluation. She has an appointment scheduled the end of this month which I asked her to keep. I will have her complete a 30 day monitoring follow-up with me in 2 months. She we did briefly discuss she had some indication forpacemaker though this may not be needed if we maintain adequate sinus rhythm. Past Medical History: Diagnosis Date Arthritis Cataract removed 2011 bilateral Chronic kidney disease COPD (chronic obstructive pulmonary disease) [place] [place] DM type 2 (diabetes mellitus, type 2) [place] [place] HTN (hypertension) Hyperlipidemia 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 ([facility]) 09/03/2021 Hypothyroid KELECHI (obstructive sleep apnea) No data recorded No data recorded No data recorded Past Surgical History: Procedure Laterality Date APPENDECTOMY BLADDER SUSPENSION X 2 CARDIAC CATHETERIZATION 10/2009 CARPAL TUNNEL RELEASE CATARACT EXTRACTION CHOLECYSTECTOMY COLONOSCOPY ESOPHAGOGASTRODUODENOSCOPY FOOT SURGERY HIATAL HERNIA REPAIR PARTIAL HYSTERECTOMY REPLACEMENT TOTAL KNEE BILAT REPLACEMENT TOTAL KNEE BILATERAL TONSILLECTOMY Family History Problem Relation Age of Onset Stroke Mother Diabetes Mother Hypertension Mother Bowel dysfunction Father Social History Socioeconomic History Marital status: Spouse name: Not on file Number of children: Not on file Years of education: Not on file Highest education level: Not on file Occupational History Not on file Tobacco Use Smoking status: Never Smokeless tobacco: Never Vaping Use Vaping Use: Never used Substance and Sexual Activity Alcohol use: No Alcohol/week: 0.0 standard drinks of alcohol Drug use: No Sexual activity: Defer Other Topics Concern Caffeine Use Yes Comment: 3 large cups daily Social History Narrative Not on file Social Determinants of Health Financial Resource Strain: Not on file Food Insecurity: No Food Insecurity (05/28/2023) Hunger Screening Food Insecurity - Worry: Never True Food Insecurity - Inability: Never True Transportation Needs: Not on file Physical Activity: Not on file Stress: Not on file Social Connections: Not on file Interpersonal Safety: Not on file Review of Systems Review of Systems Constitutional: Positive for malaise/fatigue. Negative for chills and fever. HENT: Negative for hearing loss, hoarse voice and nosebleeds. Eyes: Negative for blurred vision and double vision. Respiratory: Positive for cough, shortness of breath and wheezing. Hematologic/Lymphatic: Negative for bleeding problem. Bruises/bleeds easily. Skin: Negative for color change, rash and suspicious lesions. Musculoskeletal: Positive for back pain. Negative for joint swelling and muscle weakness. Gastrointestinal: Positive for diarrhea. Negative for change in bowel habit, constipation and hematochezia. Genitourinary: Negative for hematuria. Neurological: Positive for light-headedness and loss of balance. Negative for dizziness, headaches and numbness. Psychiatric/Behavioral: Negative for depression. The patient is not nervous/anxious. Allergic/Immunologic: Negative for environmental allergies. CARDIOVASCULAR: Please review HPI. Physical Examination General appearance: Alert, oriented and cooperative. In no acute distress. Skin: Warm and dry to touch. Head: Normocephalic, without obvious abnormality, atraumatic. Ears, Nose, Mouth, Throat: Throat clear without erythema or exudate. Dentition intact. Eyes: Conjunctivae unremarkable, EOM intact. Neck: No JVD, No carotid bruit. Neck supple, trachea midline. Respiratory: Clear to auscultation bilaterally, no use of accessory muscles. Cardiovascular: RRR with normal S1 and S2 with no murmurs. Gastrointestinal: Soft, non-tender. Bowel sounds normal. Musculoskeletal: No peripheral edema. Neurologic: Oriented to time, person and place, affect appropriate. No focal/major motor defects noted. Psychiatric: Appropriate mood, memory and judgement. VITAL SIGNS: BP (!) 200/100 (BP Site: Left Arm, BP Postition: Sitting) Pulse 64 Ht 165.1 cm (5' 5 ) Wt 91.6 kg (202 lb) LMP (LMP Unknown) SpO2 94% BMI 33.61 kg/m Orders Placed or Reconciled This Encounter Medications oxygen Sig: Inhale continuously. hydrALAZINE (APRESOLINE) 50 mg tablet Sig: Take 1 tablet (50 mg total) by mouth 3 (three) times a day. 1 TAB WITH BREAKFAST AND LUNCH, 2 TAB AT BEDTIME bumetanide (BUMEX) 1 mg tablet Sig: Take 1 tablet (1 mg total) by mouth daily. Medications Discontinued During This Encounter Medication Reason enoxaparin (LOVENOX) 100 mg/mL syringe Therapy completed hydrALAZINE (APRESOLINE) 50 mg tablet IMPRESSIONS/PLAN 1. PAF (paroxysmal 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) ([facility]) - POCT EKG - Wireless Telemetry (In Office); Future 2. Ventricular premature beats - POCT EKG 3. Sinus pause - Wireless Telemetry (In Office); Future 4. Benign hypertensive heart disease without congestive heart failure - Basic Metabolic Panel; Future 5. 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 - Thyroid profile includes TSH FT4; Future - Hepatic function panel; Future 1. Diastolic heart failure. Worsening orthopnea. Restarting Bumex. 2. Paroxysmal 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. Recent diagnosed. Currently in sinus rhythm. 30 day monitor. 3. Sinus pauses. Reportedly were conversion pauses. She is not had any lightheadedness or dizzinesssince hospitalization. On amiodarone loading dose 200 mg b.I.d. tapering to 200 mg q.day. next 4. High risks antiarrhythmic. Amiodarone continues. LFT and TSH ordered. 5. COPD / O2. She follows pulmonology. She has pending PFT. Next 6. Hypertension. Elevated today. Re adjusting her hydralazine. Keeping carvedilol at the current dose due to her evidence of sinus node disease. Testing to complete. Keep appointment end of this month. Follow-up with EP nurse practitioner in 8 weeks post M cot Patient seen while Dr. Krishnan was immediately available in the office suite TODAYS ORDERS Orders Placed This Encounter Procedures Basic Metabolic Panel Thyroid profile includes TSH FT4 Hepatic function panel Wireless Telemetry (In Office) POCT EKG FOLLOW UP Return in about 9 weeks (around 07/30/2023) for Next scheduled follow up. PCP: RASHAD MERCHANT Referring Physician: RASHAD Cabrera [address] [place] [address] RASHAD Duff 05/28/23 1337 documented [facility] Miscellaneous Notes* Telephone Encounter - Elza Schilling CMA - 05/27/2023 9:42 AM EST Called patient to remind them to bring their most current copy of their medication list with them to their appt. Patient verbalizes understanding. [facility] Telephone encounter Note* Telephone Encounter - Elza Schilling CMA - 05/27/2023 9:42 AM EST Called patient to remind them to bring their most current copy of their medication list with them to their appt. Patient verbalizes understanding. [facility] History of Present illness Narrative* Alie Schumacher [facility] - 05/26/2023 1:45 PM EST 15 minute [id number] follow-up anticoagulation appointment. INR performed in office per protocol. INR 3.3 (goal range: 2.0-3.0). Patient reports: Taking warfarin dosing as documented. Missed or extra doses of warfarin: YES Held x2 as instructed Changes to medications: No Changes to lifestyle (diet / alcohol / smoking / activity): No Recent emergency department visit / hospitalization / health changes / new contraindication to current anticoagulant: YES Still having diarrhea, plans to discuss starting probiotic with [facility] on Friday Signs/symptoms of bruising/bleeding or clotting or any intolerable adverse events: No Upcoming procedures: YES Kidney biopsy cancelled; will reschedule at later time. Will notify [facility] when scheduled Anticoagulant prescription needed: YES- 2.5 mg tab to [facility] Seen referring provider in the last year Duration of therapy reviewed Assessment: INR remains slightly elevated, but improved from previous week. Patient has taken 17.5 mg in the past 7 days. We will further reduce weekly dose by 7% (16.25 mg weekly). Patient is unableto pickup driver new script until Friday, therefore instructed to continue 2.5 mg daily until then, then take 1.25 mg on Friday. Patient will proceed with using 2.5 mg tablets only after they are obtained. Patient instructed to eat a serving of greens tonight. Plan: Patient instructed to decrease to warfarin 1.25 mg Wed and 2.5 mg AOD. Check INR in 1 week(s). Patient verbalizes understanding of anticoagulant dosing instructions and information discussed. Dosing regimen, counseling, and follow-up appointment were provided to the patient. Patient reminded to call with questions or any medication changes. Patient instructed to seek medical attention if anymajor bleeding/bleeding that persists or worsens. Alie Schumacher [facility] 05/26/23 1409 Electronically signed by Alie Schumacher [facility] at 05/26/2023 2:09 PM EST documented in this encounterProctor HospitaleKonnekt [id number] History of Present illness Narrative* Aylin Chahal, [facility] - 05/21/2023 11:30 AM EST 30 minute [id number] follow-up anticoagulation appointment. INR performed in office per protocol. INR 4.6 (goal range: 2.0-3.0). Patient reports: Taking warfarin dosing as documented. Missed or extra doses of warfarin: No Changes to medications: No Changes to lifestyle (diet / alcohol / smoking / activity): No Recent emergency department visit / hospitalization / health changes / new contraindication to current anticoagulant: No Signs/symptoms of bruising/bleeding or clotting or any intolerable adverse events: No Upcoming procedures: Yes, potential kidney biopsy in the future, date TBD Anticoagulant prescription needed: No Seen referring provider in the last year Duration of therapy reviewed Assessment: INR is supratherapeutic Plan: Patient instructed to hold warfarin x2 then begin 2.5 mg daily. Check INR in 5 day(s). Patient verbalizes understanding of anticoagulant dosing instructions and information discussed. Dosing regimen, counseling, and follow-up appointment were provided to the patient. Patient reminded to call with questions or any medication changes. Patient instructed to seek medical attention if anymajor bleeding/bleeding that persists or worsens. Patient Education Checklist (Warfarin) (check below if assessed / education provided) Fall risk assessment [x] History of falls [x] Yes [] No [x] Use assist device, such as walker, cane, wheelchair [x] Yes [] No [x] Fall risk education Warfarin medication information [x] Indications for use [x] Mechanism of action [x] Dose and frequency [x] Duration of therapy Warfarin side effects [x] Risk of bleeding [x] Risk of clotting - missed doses [] Teratogenicity N/a Warfarin monitoring [x] INR - definition and use [x] Therapeutic ranges [x] Compliance [x] Outpatient anticoagulation provider [x] First outpatient INR appointment date Warfarin drug interactions [x] Reporting medication changes [x] Medication list up-to-date Communication [x] Notifying [facility] Medication Therapy Management of any major changes with health, diet, medications, recent hospitalizations or upcoming procedures and having patient notify other providers that they are on warfarin Warfarin and diet concerns [x] Vitamin K effects Lifestyle [x] Alcohol consumption affect on INR [x] Tobacco use affect on INR Aylin Chahal RPH 05/21/23 1143 documented in [address] encounterMer[facility] HospitalGranicus [id number] Evaluation note* Encounter Date Diagnosis Assessment Notes Treatment Notes Treatment Clinical Notes Apr, Nephritis (ICD-10 - N05.9) [facility] Other 12-05-2023 Evaluation note* Encounter Date Diagnosis Assessment Notes Treatment Notes Treatment Clinical Notes Apr, Hypertensive chronic kidney disease w stg 1-4/unsp chr kdny (ICD-10 - I12.9) BP has improved with adding aldactone Continue aldactone,coreg, cozaar,Bumex hydralazine and carvedilol. Patient will continue monitor home blood pressure and call our office if systolic blood pressure more than 140s Apr, Edema (ICD-10 - R60.9) She has persistent edema due to underlying obstructive lung disease and morbid obesity.Patient also has nephrotic range proteinuria with hypoalbuminemia likely contributing to legs edema Will increase Bumex to 1 mg PO BID and continue spironolactone 25 mg PO daily Continue low-salt diet. Apr, Type 2 diabetes mellitus with diabetic chronic kidney disease (ICD-10 - E11.22) Diabetes is well controlled. Hemoglobin A1c runs between 6 and 7%. She has allergy to JANETH inhibitor. On Cozaar. Apr, Hyperlipidemia (ICD-10 - E78.5) On statin Apr, BMI 50.0-59.9, adult (ICD-10 - Z68.43) Importance of weight loss and its relation to edema/lymphedema, arthritis and sleep apnea has been addressed. Apr, Stage 3a chronic kidney disease (ICD-10 - N18.31) likely from [facility] . SCr is higher this year with UA showing 300 protein and large blood. Pro/Cr increased to 8 g/g.UA showing active urine with protein > 300 and large blood Will scheduled kidney bx Will do 24 hours urine collection for IF and electrophoresis. Will check c3/c4 JEAN ANCA,AntiGBM Abx, cryoglobulines and hepatitis panel DM seems well controlled BP traget < 130/80 On Bumex and aldactone for volume management Avoid NSAIDs follow up in 3 months Apr, Anemia, unspecified type (ICD-10 - D64.9) Hgb is 9.1. Will check iron, folate and VB12 storage studies [facility] Other 12-04-2023 Evaluation note* Encounter Date Diagnosis Assessment Notes Treatment Notes Treatment Clinical Notes Apr, Edema (ICD-10 - R60.9) [facility] Other 10-04-2023 Evaluation note* Encounter Date Diagnosis Assessment Notes Treatment Notes Treatment Clinical Notes Feb, Dietary counseling and surveillance (ICD-10 - Z71.3) Maintaining a healthful weight material was printed see above Feb, Type 2 diabetes mellitus (ICD-10 - E11.9) Type 2 diabetes material was printed 1. Controlled, Type 2 diabetes with A1c 5.8%. 2. Blood glucose levels improved. According to [employer] 2 cgm download 02/06/2023- Avg glucose 116. >250-0%, >180-1%, 70-180-99%, <70-0%, <54-0%. CV 20%. Reviewed download with pt, overall glucose pattern stable. She is tolerating ozempic at 0.25mg once weekly dose. No changes. Pt verbalizes understanding. 3. Patient is alert, oriented and receptive to making changes or counseling. Notes: Seen for an assessment of current glucose pattern, changes in treatment plan, with this time spent in counseling and coordination of care related to diabetes, risks, and benefits of treatment, medications, and side effects. TOPICS REVIEWED: 1. Time was spent reviewing: a. Basic concepts of diabetes, progressive beta cell , concepts of basal/bolus/correc tive insulin requirements. Basal: The goal is fasting blood glucose of 90-130mg. IF fasting blood glucose starts to run under 100mg 3x's/ week, decrease dose by 10%. Bolus: The goal is to hold the blood glucose level steady meal to meal. If pt. is going to have increased physical activity after a meal, decrease the schedule meal dose prior to the activity by 30-50%. If pt. skips a meal do not take this dose. Correction: The goal is to correct an elevated glucose back into the 100-150mg range b. Nutrition: Concepts of healthy diet, encouraged to decrease saturated fat in diet and increase non-starchy vegetables and fruits in diet. BMI: Pt. needs to select one small change to decrease caloric intake or increase physical activity to help decrease weight. c. Correct treatment of hypoglycemia, carry a glucose source at all times on your person, in vehicles, and at bedside. Can use glucose tablets/4, four ounces of pop or juice equal to 15 G of carbohydrate. Blood glucose should be 100 mg/dl or higher when driving. d. ADA glucose goals for age and medical complexity reviewed e. Patient questions addressed 2. Activity/exercise: Encouraged to start any form of physical activity. Start low level and increase slowly to a minimal goal of 150 minutes/week. Limit activity to what is allowed by other issues such as cardiac, pulmonary or orthopedic restrictions. 3. Standards of care: Reminded to have an annual dilated eye exam, A1C every 3-6 months, urine testing for microalbumin once/year, check feet daily and report any cuts or sores that do not appear to be healing. 4. Meter: Plan to check blood glucose: Please check blood glucose levels 4 times/day. Back to back meals reveal effectiveness of bolus dosing. The blood glucose data is used to determine insulin doses and confirm symptoms for hypoglycemia and hyperglcyemia. The blood glucose data is used to determine insulin doses, and confirm symptoms for hypoglycemia and hyperglcyemia. 5. [facility]. Contact office if any issues or concerns with patterns of hypoglycemia, hyperglycemia, or diabetes medication issues. 6. Prescriptions: RUSSELL PAP: Ozempic; 2023 RUSSELL PAP Application provided to patient for completion. She is to return it to the office RAYSA with the required documentation. No other RX needs at this time. 7. Prescriptions will not be filled unless you are compliant with follow up appointments or have a follow up appointment scheduled as ordered by your provider. Refills should be requested at the time of your visit. Feb, Hyperlipidemia (ICD-10 - E78.5) High cholesterol material was printed 08/2022 ldl 95 at goal. Trig 219- above target Feb, HTN (hypertension) (ICD-10 - I10) About hypertension material was printed on arb Feb, terminal clerk current use of insulin (ICD-10 - Z79.4) Feb, Vitamin B 12 deficiency (ICD-10 - E53.8) 09/08 b12 345 at target Feb, Albuminuria (ICD-10 - R80.9) Protein, urine material was printed Reviewed importance of glucose/bp control to prevent further nephropathy. Keep f/u with nephrology Feb, BMI 40.0-44.9, adult (ICD-10 - Z68.41) [facility] Other 09-27-2023 Evaluation note* Encounter Date Diagnosis Assessment Notes Treatment Notes Treatment Clinical Notes Jan, Type 2 diabetes mellitus with diabetic chronic kidney disease (ICD-10 - E11.22) Pt here for appointment today with spouse, for K[employer] 2 training. Kusum 2 training discussed, instructed on use and application. Patient brought in her own Kusum 2 reader which displays connected to a computer on the screen. Pt contacted [employer] for reader replacement. Pt also brought in new reader. New reader set up with pt. Instructed pt to send old reader back to [employer]. Pt states she will send old reader back. Informed pt the old reader USB port may be damaged. Pt has 12 days left of current sensor she is wearing. Instructed pt when she applies new sensor to scan with new reader. Pt states understanding. Reviewed with patient testing glucose with Kusum ac, hs explained how to enter insulin dosing/notes into Kusum reader. Reviewed with patient no more than 500mg of Vitamin C per day, which can falsely elevate CGM glucose results. Need for confirmatory glucose fingerstick if not feeling well or if reader prompts to. Encouraged patient to check glucose 4xday, before meals and to fingerstick when not wearing CGM. All questions and concerns addressed. Instructed patient to return for scheduled follow up appointment. 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 Patient will continue monitor home blood pressure and call our office if systolic blood pressure more than 140s Recheck renal panel and spot urine for protein creatinine in 6 months . Patient has normal renal function. Oct, Edema (ICD-10 - R60.9) She has persistent edema due to underlying obstructive lung disease and morbid obesity. Continue bumetanide and spironolactone as stated above. Continue low-salt diet. Oct, Type 2 diabetes mellitus with diabetic chronic kidney disease (ICD-10 - E11.22) Diabetes is well controlled. Hemoglobin A1c runs between 6 and 7%. She has allergy to JANETH inhibitor. On Cozaar. Will re check Pro/Cr next visit Oct, Hyperlipidemia (ICD-10 - E78.5) On statin Oct, BMI 50.0-59.9, adult (ICD-10 - Z68.43) Importance of weight loss and its relation to edema/lymphedema, arthritis and sleep apnea has been addressed. Oct, Stage 3a chronic kidney disease (ICD-10 - N18.31) likely from [facility] Mild CKD DM seems well controlled BP is slightly higher than the targer. Will add aldactone On Bumex for volume management Avoid NSAIDs [facility] Other 04-03-2023 Evaluation note* Encounter Date Diagnosis Assessment Notes Treatment Notes Treatment Clinical Notes Aug, Dietary counseling and surveillance (ICD-10 - Z71.3) Maintaining a healthful weight material was printed see above Aug, Type 2 diabetes mellitus (ICD-10 - E11.9) Type 2 diabetes material was printed 1. Controlled, Type 2 diabetes with A1c 6.5%. 2. Blood glucose levels stable. According to Book[employer] 2 cgm download 08/06/2022-08/19/2022 Avg glucose 129. >250-0%, >180-3%, 70-180-97%, <70-0%, <54-0%. CV 6.4%. Reviewed download with pt, overall glucose pattern stable. She is tolerating ozempic at 0.25mg once weekly dose. No changes. Pt verbalizes understanding. 3. Patient is alert, oriented and receptive to making changes or counseling. Notes: Seen for an assessment of current glucose pattern, changes in treatment plan, with this time spent in counseling and coordination of care related to diabetes, risks, and benefits of treatment, medications, and side effects. TOPICS REVIEWED: 1. Time was spent reviewing: a. Basic concepts of diabetes, progressive beta cell , concepts of basal/bolus/correc tive insulin requirements. Basal: The goal is fasting blood glucose of 90-130mg. IF fasting blood glucose starts to run under 100mg 3x's/ week, decrease dose by 10%. Bolus: The goal is to hold the blood glucose level steady meal to meal. If pt. is going to have increased physical activity after a meal, decrease the schedule meal dose prior to the activity by 30-50%. If pt. skips a meal do not take this dose. Correction: The goal is to correct an elevated glucose back into the 100-150mg range b. Nutrition: Concepts of healthy diet, encouraged to decrease saturated fat in diet and increase non-starchy vegetables and fruits in diet. BMI: Pt. needs to select one small change to decrease caloric intake or increase physical activity to help decrease weight. c. Correct treatment of hypoglycemia, carry a glucose source at all times on your person, in vehicles, and at bedside. Can use glucose tablets/4, four ounces of pop or juice equal to 15 G of carbohydrate. Blood glucose should be 100 mg/dl or higher when driving. d. ADA glucose goals for age and medical complexity reviewed e. Patient questions addressed 2. Activity/exercise: Encouraged to start any form of physical activity. Start low level and increase slowly to a minimal goal of 150 minutes/week. Limit activity to what is allowed by other issues such as cardiac, pulmonary or orthopedic restrictions. 3. Standards of care: Reminded to have an annual dilated eye exam, A1C every 3-6 months, urine testing for microalbumin once/year, check feet daily and report any cuts or sores that do not appear to be healing. 4. Meter: Plan to check blood glucose: Please check blood glucose levels 4 times/day. Back to back meals reveal effectiveness of bolus dosing. The blood glucose data is used to determine insulin doses and confirm symptoms for hypoglycemia and hyperglcyemia. The blood glucose data is used to determine insulin doses, and confirm symptoms for hypoglycemia and hyperglcyemia. 5. [facility]. Contact office if any issues or concerns with patterns of hypoglycemia, hyperglycemia, or diabetes medication issues. 6. Prescriptions: RUSSELL PAP Ozempic 7. Prescriptions will not be filled unless you are compliant with follow up appointments or have a follow up appointment scheduled as ordered by your provider. Refills should be requested at the time of your visit. Aug, Hyperlipidemia (ICD-10 - E78.5) High cholesterol material was printed 08/2022 ldl 95 at goal. Trig 219- above target Aug, HTN (hypertension) (ICD-10 - I10) About hypertension material was printed on arb Aug, terminal clerk current use of insulin (ICD-10 - Z79.4) Aug, Vitamin B 12 deficiency (ICD-10 - E53.8) 09/08 b12 345 at target Aug, Albuminuria (ICD-10 - R80.9) Protein, urine material was printed Reviewed importance of glucose/bp control to prevent further nephropathy. Keep f/u with nephrology Aug, BMI 39.0-39.9,adult (ICD-10 - Z68.39) 11 pound weight loss from last visit, continue with weight loss efforts [facility] Other 10-12-2022 Evaluation note* Encounter Date Diagnosis Assessment Notes Treatment Notes Treatment Clinical Notes Feb, Dietary counseling and surveillance (ICD-10 - Z71.3) Maintaining a healthful weight material was printed see above Feb, Type 2 diabetes mellitus (ICD-10 - E11.9) Type 2 diabetes material was printed 1. Controlled, Type 2 diabetes with A1c of 6.1% 2. Blood glucose levels stable. According to kusum 2 cgm download 02/14/2022-02/28/20 22 Avg glucose 130. >250-0%, >180-2%, 70-180-98%, <70-0%, <54-0%. CV 16.6%. Reviewed download with pt, overall glucose pattern stable. She is tolerating ozempic at 0.25mg once weekly dose. Reviewed with pt if fasting am glucose >130's recommend restarting lantus 5 units qam. Pt verbalizes understanding. 3. Patient is alert, oriented and receptive to making changes or counseling. Notes: Seen for an assessment of current glucose pattern, changes in treatment plan, with this time spent in counseling and coordination of care related to diabetes, risks, and benefits of treatment, medications, and side effects. TOPICS REVIEWED: 1. Time was spent reviewing: a. Basic concepts of diabetes, progressive beta cell , concepts of basal/bolus/correc tive insulin requirements. Basal: The goal is fasting blood glucose of 90-130mg. IF fasting blood glucose starts to run under 100mg 3x's/ week, decrease dose by 10%. Bolus: The goal is to hold the blood glucose level steady meal to meal. If pt. is going to have increased physical activity after a meal, decrease the schedule meal dose prior to the activity by 30-50%. If pt. skips a meal do not take this dose. Correction: The goal is to correct an elevated glucose back into the 100-150mg range b. Nutrition: Concepts of healthy diet, encouraged to decrease saturated fat in diet and increase non-starchy vegetables and fruits in diet. BMI: Pt. needs to select one small change to decrease caloric intake or increase physical activity to help decrease weight. c. Correct treatment of hypoglycemia, carry a glucose source at all times on your person, in vehicles, and at bedside. Can use glucose tablets/4, four ounces of pop or juice equal to 15 G of carbohydrate. Blood glucose should be 100 mg/dl or higher when driving. d. ADA glucose goals for age and medical complexity reviewed e. Patient questions addressed 2. Activity/exercise: Encouraged to start any form of physical activity. Start low level and increase slowly to a minimal goal of 150 minutes/week. Limit activity to what is allowed by other issues such as cardiac, pulmonary or orthopedic restrictions. 3. Standards of care: Reminded to have an annual dilated eye exam, A1C every 3 months, urine testing for microalbumin once/year, check feet daily and report any cuts or sores that do not appear to be healing. 4. Meter: Plan to check blood glucose: Please check blood glucose levels 4 times/day. Back to back meals reveal effectiveness of bolus dosing. The blood glucose data is used to determine insulin doses and confirm symptoms for hypoglycemia and hyperglcyemia. The blood glucose data is used to determine insulin doses, and confirm symptoms for hypoglycemia and hyperglcyemia. 5. [facility] Contact office if any issues or concerns with patterns of hypoglycemia, hyperglycemia, or diabetes medication issues. 6. Prescriptions: pap for russell given today Feb, Hyperlipidemia (ICD-10 - E78.5) High cholesterol material was printed 10/2021 ldl 99 at goal Feb, HTN (hypertension) (ICD-10 - I10) About hypertension material was printed on arb Feb, terminal clerk current use of insulin (ICD-10 - Z79.4) Feb, Vitamin B 12 deficiency (ICD-10 - E53.8) 12/07 b12 225 on supplement Feb, Albuminuria (ICD-10 - R80.9) Protein, urine material was printed Reviewed importance of glucose/bp control to prevent further nephropathy. Keep f/u with nephrology Feb, BMI 40.0-44.9, adult (ICD-10 - Z68.41) 13 pound weight loss from last visit, continue with weight loss efforts Feb, Hypoglycemia associated with type 2 diabetes mellitus (ICD-10 - E11.649) Hypoglycemia material was printed see above [facility] Other 09-12-2022 Evaluation note* Encounter Date Diagnosis Assessment Notes Treatment Notes Treatment Clinical Notes Jan, Edema (ICD-10 - R60.9) [facility] Other 08-24-2022 Evaluation note* Encounter Date Diagnosis Assessment Notes Treatment Notes Treatment Clinical Notes Dec, Type 2 diabetes mellitus with diabetic chronic kidney disease (ICD-10 - E11.22) Dec, Type 2 diabetes mellitus (ICD-10 - E11.9) [facility] Other 06-17-2022 Evaluation note* Encounter Date Diagnosis Assessment Notes Treatment Notes Treatment Clinical Notes Oct, Vitamin B 12 deficiency (ICD-10 - E53.8) [facility] Other 06-07-2022 Evaluation note* Encounter Date Diagnosis Assessment Notes Treatment Notes Treatment Clinical Notes Oct, Hypertensive chronic kidney disease w stg 1-4/unsp chr kdny (ICD-10 - I12.9) Blood pressure seems well controlled. I will continue same blood pressure medication Oct, Edema (ICD-10 - R60.9) Patient only on Bumex 1 mg p.o. daily. I asked the patient to follow a low-salt diet and to wear herself every day. I asked her to take Bumex twice a day if she gains 4 pounds 4 to 3 days after she is back to her dry weight Oct, Type 2 diabetes mellitus with diabetic chronic kidney disease (ICD-10 - E11.22) Diabetes is well controlled. Hemoglobin A1c runs between 6 and 7%. Protein creatinine ratio 6 mg/g. Patient on Cozaar now. Patient follows with her PCP for Oct, Hyperlipidemia (ICD-10 - E78.5) Oct, BMI 50.0-59.9, adult (ICD-10 - Z68.43) Importance of weight loss and its relation to edema/lymphedema, arthritis and sleep apnea has been addressed. [facility] Other 06-06-2022 Evaluation note* Encounter Date Diagnosis Assessment Notes Treatment Notes Treatment Clinical Notes Oct, Type 2 diabetes mellitus with diabetic chronic kidney disease (ICD-10 - E11.22) [facility] Other 04-25-2022 Evaluation note* Encounter Date Diagnosis Assessment Notes Treatment Notes Treatment Clinical Notes Aug, Type 2 diabetes mellitus with diabetic chronic kidney disease (ICD-10 - E11.22) [facility] Other 01-05-2022 Evaluation note* Encounter Date Diagnosis Assessment Notes Treatment Notes Treatment Clinical Notes May, Dietary counseling and surveillance (ICD-10 - Z71.3) Maintaining a healthful weight material was printed see above May, Type 2 diabetes mellitus (ICD-10 - E11.9) Type 2 diabetes material was printed 1. Controlled, Type 2 diabetes with A1c of 5.7% 2. Blood glucose levels stable. According to kus[facility] 2 cgm download 05/10/2021-05/23/2021 Avg glucose 128. >250-0%, >180-5%, 70-180-95%, <70-0%, <54-0%. CV 22%. Reviewed download with pt, isolated incidence of hypoglycemia after overestimation of insulin for carb load. Overall glucose pattern stable. Reviewed with pt if meal to meal glucose pattern <100 recommend she reduce meal insulin by 2 units. She verbalizes understanding. 3. Patient is alert, oriented and receptive to making changes or counseling. Notes: Seen for an assessment of current glucose pattern, changes in treatment plan, with this time spent in counseling and coordination of care related to diabetes, risks, and benefits of treatment, medications, and side effects. TOPICS REVIEWED: 1. Time was spent reviewing: a. Basic concepts of diabetes, progressive beta cell , concepts of basal/bolus/correct [place] insulin requirements. Basal: The goal is fasting blood glucose of 90-130mg. IF fasting blood glucose starts to run under 100mg 3x's/ week, decrease dose by 10%. Bolus: The goal is to hold the blood glucose level steady meal to meal. If pt. is going to have increased physical activity after a meal, decrease the schedule meal dose prior to the activity by 30-50%. If pt. skips a meal do not take this dose. Correction: The goal is to correct an elevated glucose back into the 100-150mg range b. Nutrition: Concepts of healthy diet, encouraged to decrease saturated fat in diet and increase non-starchy vegetables and fruits in diet. BMI: Pt. needs to select one small change to decrease caloric intake or increase physical activity to help decrease weight. c. Correct treatment of hypoglycemia, carry a glucose source at all times on your person, in vehicles, and at bedside. Can use glucose tablets/4, four ounces of pop or juice equal to 15 G of carbohydrate. Blood glucose should be 100 mg/dl or higher when driving. d. ADA glucose goals for age and medical complexity reviewed e. Patient questions addressed 2. Activity/exercise: Encouraged to start any form of physical activity. Start low level and increase slowly to a minimal goal of 150 minutes/week. Limit activity to what is allowed by other issues such as cardiac, pulmonary or orthopedic restrictions. 3. Standards of care: Reminded to have an annual dilated eye exam, A1C every 3 months, urine testing for microalbumin once/year, check feet daily and report any cuts or sores that do not appear to be healing. 4. Meter: Plan to check blood glucose: Please check blood glucose levels 4 times/day. Back to back meals reveal effectiveness of bolus dosing. The blood glucose data is used to determine insulin doses and confirm symptoms for hypoglycemia and hyperglcyemia. The blood glucose data is used to determine insulin doses, and confirm symptoms for hypoglycemia and hyperglcyemia. 5. [facility]. Contact office if any issues or concerns with patterns of hypoglycemia, hyperglycemia, or diabetes medication issues. 6. Prescriptions: Pt denies need for any refills at this time. Will call office when needed. May, Hyperlipidemia (ICD-10 - E78.5) High cholesterol material was printed 10/2020 ldl 86 at goal May, HTN (hypertension) (ICD-10 - I10) About hypertension material was printed May, terminal clerk current use of insulin (ICD-10 - Z79.4) May, Vitamin B 12 deficiency (ICD-10 - E53.8) May, Albuminuria (ICD-10 - R80.9) Protein, urine material was printed Reviewed importance of glucose/bp control to prevent further nephropathy. Keep f/u with nephrology May, BMI 40.0-44.9, adult (ICD-10 - Z68.41) see above May, Hypoglycemia associated with type 2 diabetes mellitus (ICD-10 - E11.649) Hypoglycemia material was printed see above [facility] Other 01-17-2021 History general Narrative - Reported* Type Description Date Medical History DM II Medical History HYPERTENSION Medical History HYPERLIPIDEMIA Medical History Hypothyroidism Medical History Covid 19 positive 06/04/2020 Surgical History HYSTERECTOMY 1965 Surgical History HERNIA REPAIR 1984 Surgical History BILATERAL KNEE REPLACEMENT 2003 Surgical History GALLBLADDER 2014 Surgical History tonsillectomy Surgical History cyst removal Surgical History appendectomy Surgical History bladder suspension, unspecified Surgical History Foot Surgery Hospitalization History SEE ABOVE Hospitalization History COPD 07/08 [facility] Other [employer]iation noteNo [employer] Other evaluation note* Diagnosis PAF (paroxysmal 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) ([facility])- Primary Atrial fibrillation [facility] Diagnosis PAF (paroxysmal 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) ([facility])- Primary Atrial fibrillation [facility] Diagnosis PAF (paroxysmal 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) ([facility])- Primary Atrial fibrillation Ventricular premature beats Other premature beats Sinus pause Benign hypertensive heart disease without congestive heart failure Benign hypertensive heart disease without heart failure long-term current use of amiodarone documented in this encounter [facility]* Diagnosis PAF (paroxysmal 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) ([facility])- Primary Atrial fibrillation [facility]* Diagnosis PAF (paroxysmal 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) ([facility])- Primary Atrial fibrillation [facility]* Diagnosis PAF (paroxysmal 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) ([facility])- Primary Atrial fibrillation Benign hypertensive heart disease without congestive heart failure Benign hypertensive heart disease without heart failure 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) Shortness of breath COPD with acute exacerbation (CMS-HCC) [facility] Diagnosis PAF (paroxysmal 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) (CMS-HCC)- Primary Atrial fibrillation [facility] assessment information available [facility] Work Phone: Evaluation note* Diagnosis PAF (paroxysmal 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) (CMS-HCC)- Primary Atrial fibrillation [facility] Diagnosis Shortness of breath Chronic obstructive pulmonary disease, unspecified COPD type (CMS-HCC) [facility] Diagnosis PAF (paroxysmal 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) (CMS-HCC)- Primary Atrial fibrillation Hyperlipidemia, unspecified hyperlipidemia type Benign hypertensive heart disease without congestive heart failure Benign hypertensive heart disease without heart failure [facility] filedocumented in this [facility] filedocumented in this [facility] filedocumented in this [facility] filedocumented in this [facility] on filedocumented in this [facility] on filedocumented in this [facility] on filedocumented in this [facility] filedocumented in this [facility] filedocumented in this [facility] Summary Purpose Family History No Family History Records Found Relationship Condition Age at Onset Recorded Date/T elmer father Malignant neoplasm Unknown Unknown Not Specified Hypertension Unknown Diabetes mellitus Unknown natural son Malignant neoplasm Unknown sister Unknown Advance Directives No Advanced Directives Records FoundLatest Code Status on File Code Status Date Activated Date Inactivated Comments Full Code 05/09/2023 2:38 AM 05/10/2023 5:20 PM Code Status History Code Status Date Activated Date Inactivated Comments Full Code 07/11/2019 12:31 AM 2019 4:55 PM Full Code 06/28/2019 7:15 AM 06/28/2019 8:15 PM Latest Code Status on File Code Status Date Activated Date Inactivated Comments Full Code 05/09/2023 2:38 AM 05/10/2023 5:20 PM Code Status History Code Status Date Activated Date Inactivated Comments Full Code 07/11/2019 12:31 AM 2019 4:55 PM Full Code 06/28/2019 7:15 AM 06/28/2019 8:15 PM Advance Directive Response Recorded Date/ Time Advance Directives No September 16, 2017 11:13am Reason for Referral Specialty Diagnoses / Procedures Referred By Contac t Referred To Contact Diagnoses PAF (paroxysmal 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) ([facility]) Sinus pause Procedures Wireless Telemetry (In Office) Tr Jimenez, PRESS SETUP OPERATOR-REGISTRATION MANAGER [address] [place] [address] Referral ID Status Reason Start Date Expiration Date V isits Requested Visits Authorized [id number] Pending Review 05/28/2023 05/27/2024 1 1 Chief Complaint and Reason for Visit Chief Complaint Renal 6 Month Follow Up Additional Source Comments REASON FOR VISIT (unrecogniz ed section and content) Reason Comments Follow-up EST PT IP TTH ATRIAL FIB-PER SUELLEN SCHED W/PT Reason Comments Follow-up HOSP F/U 05/08-05/10 TTH-L/S MBE-LABS 05/10TTH-CHEST XRAY 05/09TT-ECHO 05/09TT-SCHD APPT W/PT Reason Comments Follow-up EST PT 9 WEEK FU Med Refill Amiodarone and crest or INFORMATION SOURCE (unrecogn ized section and content) DATE CREATED AUTHOR 10/27/2022 [facility] DATE CREATED AUTHOR AUTHOR'S ORGANIZ ATION 06/06/2023 [facility] EPIC DATE CREATED AUTHOR AUTHOR'S ORGANIZ ATION 07/02/2023 [facility] DATE CREATED AUTHOR AUTHOR'S ORGANIZ ATION 07/31/2023 [facility] Care Teams (unrecognized sec tion and content) News Editor Relationship Specialty Start Date End Date Anika Henry, PRESS SETUP OPERATOR-REGISTRATION MANAGER [address] [facility], [place] [id number] PCP - General Family Medicine 04/29/23 News Editor Relationship Specialty Start Date End Date Anika Henry APRN-REGISTRATION MANAGER [address] [facility], [place] [address] PCP - General Family Medicine 04/29/23 News Editor Relationship Specialty Start Date End Date Anika Henry APRN-REGISTRATION MANAGER [address] [facility], [place] [address] PCP - General Family Medicine 04/29/23 News Editor Relationship Specialty Start Date End Date Anika Henry PRESS SETUP OPERATOR-REGISTRATION MANAGER [address] [facility], [place] [address] PCP - General Family Medicine 04/29/23 News Editor Relationship Specialty Start Date End Date Anika Henry PRESS SETUP OPERATOR-REGISTRATION MANAGER [address] [facility], [place] [address] PCP - General Family Medicine 04/29/23 News Editor Relationship Specialty Start Date End Date Anika Henry PRESS SETUP OPERATOR-REGISTRATION MANAGER [address] [facility], [place] [address] PCP - General Family Medicine 04/29/23 News Editor Relationship Specialty Start Date End Date Anika Henry PRESS SETUP OPERATOR-REGISTRATION MANAGER [address] [facility], [place] [address] PCP - General Family Medicine 04/29/23 Team Status: Active Member Role Status Dates ALFREDO Jiang Primary Care Provider Active Team Status: Inactive Member Role Status Dates Rin Ramirez MD Attending Provider Active Star t: April 22, 2023 End: April 22, 2023 News Editor Relationship Specialty Start Date End Date Elaine Anika TatianaRASHAD [address] [facility] [place] [address] PCP - General Family Medicine 04/29/23 News Editor Relationship Specialty Start Date End Date Anika Henry APRN-CNP [address] [facility], [place] [address] PCP - General Family Medicine 04/29/23 Goals (unrecognized section and content) Goals may be documented in a n alternate section FOR RECORDS PERTAINING TO PATIENTS WHO ARE OR HAVE BEEN ENROLLED IN A CHEMICAL DEPENDENCY/SUBSTANCEABUSE PROGRAM, SOME INFORMATION MAY BE OMITTED. This clinical summary was aggregated from multiple sources. Caution should be exercised in using it in the provision of clinical care. This summary normalizes information from multiple sources, and as a consequence, information in this document may materially change the coding, format and clinical context of patient data. In addition, data may be omitted in some cases. CLINICAL DECISIONS SHOULD BE BASED ON THE PRIMARY CLINICAL RECORDS. [employer] provides no warranty or guarantee of the accuracy or completeness of information in this document.
[2023-08-01 10:52] LABS: Hemoglobin 7.8 g/dL (12.0-16.0); Mean Corpuscular HGB Conc 28.9 g/dL (29.9-35.2); Mean Corpuscular Hemoglobin 29.2 pg (26.7-34.0); Mean Corpuscular Volume 101.1 fL (81.0-99.0); Mean Platelet Volume 10.5 fL (9.5-13.5); Platelet Count 227 10^3/uL (150-450); Red Blood Count 2.67 10^6/uL (4.20-5.40); Red Cell Distribution Width 13.1 % (11.0-15.0); White Blood Count 6.4 10^3/uL (4.0-11.0)
[2023-08-01 11:00] LABS: Bilirubin Urine NEGATIVE (NEGATIVE); Blood Urine LARGE (NEGATIVE); Clarity Urine CLEAR (CLEAR); Color Urine LT. YELLOW (YELLOW); Glucose Urine UA NEGATIVE (NEGATIVE); Ketones Urine NEGATIVE (NEGATIVE); Leukocyte Esterase Urine NEGATIVE (NEGATIVE); Nitrite Urine NEGATIVE (NEGATIVE); Protein Urine 100 mg/dL (NEG/TRACE); Urobilinogen Urine 0.2 EU/dL (0.2-1.0)
[2023-08-01 11:08] LABS: Creatinine Urine Random 27.68 mg/dL (20.00-300.00); Protein Creatinine Ratio Urine 6.54; Total Protein Urine Random 181.1 mg/dL (<=11.9)
[2023-08-01 11:25] LABS: INR 2.43; Partial Thromboplastin Time 38.6 sec (22.3-36.2); Prothrombin Time 24.5 sec (9.0-11.6)
[2023-08-01 11:38] LABS: Percent Iron Saturation 14.8 %
[2023-08-01 12:01] LABS: Alanine Aminotransferase 18 U/L (14-59); Albumin Globulin Ratio 0.8; Albumin Level 2.7 g/dL (3.4-5.0); Alkaline Phosphatase 50 U/L (46-116); Anion Gap 12.2; Aspartate Amino Transferase 12 U/L (15-37); BUN Creatinine Ratio 18.3; Bilirubin Total 0.2 mg/dL (0.2-1.0); Calcium 8.8 mg/dL (8.5-10.1); Carbon Dioxide 32.1 mmol/L (21.0-32.0); Chloride 105 mmol/L (98-107); Estimated GFR (African America 33 (>=60); Estimated GFR (Non-African Ame 27 (>=60); Globulin 3.3 g/dL; Glucose 112 mg/dL (74-106); Magnesium 1.9 mg/dL (1.8-2.4); Phosphorus 3.8 mg/dL (2.6-4.7); Potassium 4.3 mmol/L (3.5-5.1); Sodium 145 mmol/L (136-145)
[2023-08-02 04:07] LABS: Complement C3, Serum 140 mg/dL (82-167); Complement C4, Serum 30 mg/dL (12-38)
[2023-08-02 06:10] LABS: HBsAg Screen Negative (Negative)
[2023-08-03 11:07] LABS: PTH, Intact 60 pg/mL (15-65)
[2023-08-04 12:08] LABS: ANA Direct Negative (Negative)
[2023-08-04 19:08] LABS: Anti-GBM Antibodies <0.2 units (0.0-0.9); Anti-MPO Antibodies <0.2 units (0.0-0.9); Anti-PR3 Antibodies <0.2 units (0.0-0.9); Cytoplasmic (C-ANCA) <1:20 titer (Neg:<1:20); Perinuclear (P-ANCA) <1:20 titer (Neg:<1:20)
== END 2023-08-01 09:29 | disposition home or self-care (01) ==
LOC: LAB 09:30
PROVIDERS: PCP Family Medicine; Visit Provider Internal Medicine Nephrology
DX: I12.9 Hypertensive chronic kidney disease with stage 1 through stage 4 chronic kidney disease, or unspecified chronic kidney disease (principal); R60.9 Edema, unspecified; E11.22 Type 2 diabetes mellitus with diabetic chronic kidney disease; E78.5 Hyperlipidemia, unspecified; Z68.43 Body mass index [BMI] 50.0-59.9, adult; N18.31 Chronic kidney disease, stage 3a; D64.9 Anemia, unspecified
CPT/HCPCS: 36415; 80053; 81003; 82306; 82570; 82595; 82607; 82728; 82746; 83516; 83521; 83540; 83550; 83735; 83970; 84100; 84155; 84156; 84165; 84166; 85027; 85610; 85730; 86037; 86038; 86160; 86335; 87340

== ENCOUNTER 2023-08-05 16:17 | Outpatient (REF) | payer MEDICARE, SELFPAY | END 2023-08-05 16:18 | disposition home or self-care (01) | LOC: LAB 16:17 | PROVIDERS: PCP Family Medicine; Visit Provider Internal Medicine Nephrology | DX: I12.9 Hypertensive chronic kidney disease with stage 1 through stage 4 chronic kidney disease, or unspecified chronic kidney disease (principal); R60.9 Edema, unspecified; E11.22 Type 2 diabetes mellitus with diabetic chronic kidney disease; E78.5 Hyperlipidemia, unspecified; Z68.43 Body mass index [BMI] 50.0-59.9, adult; N18.31 Chronic kidney disease, stage 3a; D64.9 Anemia, unspecified | CPT/HCPCS: 36415; 81050; 84156; 84166 ==

== ENCOUNTER 2023-09-16 09:34 | Outpatient (OUT) | payer MEDICARE, SELFPAY ==
[2023-09-16 10:12] LABS: Creatinine Urine Random 38.12 mg/dL (20.00-300.00); Protein Creatinine Ratio Urine 3.08; Total Protein Urine Random 117.6 mg/dL (<=11.9)
[2023-09-16 10:19] LABS: Albumin Level 3.1 g/dL (3.4-5.0); Anion Gap 11.9; BUN Creatinine Ratio 19.8; Calcium 9.2 mg/dL (8.5-10.1); Carbon Dioxide 28.2 mmol/L (21.0-32.0); Chloride 107 mmol/L (98-107); Estimated GFR (African America 26 (>=60); Estimated GFR (Non-African Ame 22 (>=60); Glucose 98 mg/dL (74-106); Phosphorus 4.6 mg/dL (2.6-4.7); Potassium 5.1 mmol/L (3.5-5.1); Sodium 142 mmol/L (136-145)
[2023-09-16 10:33] LABS: Hematocrit 25.6 % (36.0-48.0); Hemoglobin 7.5 g/dL (12.0-16.0); Mean Corpuscular HGB Conc 29.3 g/dL (29.9-35.2); Mean Corpuscular Hemoglobin 29.2 pg (26.7-34.0); Mean Corpuscular Volume 99.6 fL (81.0-99.0); Mean Platelet Volume 10.3 fL (9.5-13.5); Platelet Count 225 10^3/uL (150-450); Red Blood Count 2.57 10^6/uL (4.20-5.40); White Blood Count 5.4 10^3/uL (4.0-11.0)
[2023-09-17 16:18] LABS: PTH, Intact 75 pg/mL (15-65)
== END 2023-09-16 09:35 | disposition home or self-care (01) ==
LOC: LAB 09:36
PROVIDERS: PCP Family Medicine; Visit Provider Internal Medicine Nephrology
DX: E21.3 Hyperparathyroidism, unspecified (principal); N05.9 Unspecified nephritic syndrome with unspecified morphologic changes; N18.32 Chronic kidney disease, stage 3b; D64.9 Anemia, unspecified; E11.22 Type 2 diabetes mellitus with diabetic chronic kidney disease; R60.9 Edema, unspecified
CPT/HCPCS: 36415; 80069; 82570; 83970; 84156; 85027

== ENCOUNTER 2023-10-07 09:51 | Outpatient (OUT) | payer MEDICARE, SELFPAY ==
[2023-10-07 11:02] LABS: Hemoglobin 8.6 g/dL (12.0-16.0); Mean Corpuscular HGB Conc 30.7 g/dL (29.9-35.2); Mean Corpuscular Hemoglobin 30.1 pg (26.7-34.0); Mean Corpuscular Volume 97.9 fL (81.0-99.0); Mean Platelet Volume 10.1 fL (9.5-13.5); Platelet Count 194 10^3/uL (150-450); Red Blood Count 2.86 10^6/uL (4.20-5.40); Red Cell Distribution Width 14.2 % (11.0-15.0); White Blood Count 5.1 10^3/uL (4.0-11.0)
== END 2023-10-07 09:52 | disposition home or self-care (01) ==
LOC: LAB 09:52
PROVIDERS: PCP Nurse Practitioner Family; Visit Provider Internal Medicine Nephrology
DX: D64.9 Anemia, unspecified (principal)
CPT/HCPCS: 36415; 85027

== ENCOUNTER 2023-10-24 09:51 | Outpatient (OUT) | payer MEDICARE, SELFPAY ==
--- NOTE | 2023-10-24 09:54 | XR_ITS ---
[address] [address] Patient Name: JONATHAN HILL MRN: [id number] date: 1940 Sex: F Assigned Patient Location: [facility] Current Patient Location: [facility] Accession/Order Number: [id number] Exam Date: 10/24/2023 10:03 Report Date: 10/24/2023 10:36 At the request of: CED HENRY Procedure: XR DEXA axial skeleton EXAMINATION: XR DEXA axial skeleton HISTORY: Osteoporosis M81.0 COMPARISON: DEXA bone densitometry 05/28/2021 TECHNIQUE: Dual-energy X-ray absorptiometry (DXA) was performed. FINDINGS: SPINE ANALYSIS: Average bone mineral density is 1.167 g/cm2. T-score (standard deviation relative to young adult mean): -0.1 . +6.6% change since prior study. HIP ANALYSIS: Lowest bone mineral density is within the left femoral neck, 0.714 g/cm2. T-score (standard deviation relative to young adult mean): -2.3 . -1.8% change since prior study. XR/XR DEXA axial skeleton IMPRESSION: World [employer] Classification: Osteopenia - Moderate Fracture Risk FRAX: Could not be calculated. Electronically authenticated by: LUCI DIEGO Date: 10/24/2023 10:36
--- OUTSIDE RECORDS SUMMARY | 2023-10-24 10:03 | XMS_ITS | CCD ---
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 leukocytes count i n urine sediment (number/area)Ordered By: Rin Sarmiento on 09-01-2023 WBC Auto (Urine sed) [#/Area] 1-2 [HPF] 0-4 [facility] Bilirubin Test strip Ql (U)O rdered By: Rin Sarmiento on 09-01-2023 Bilirubin Ql (U) Negative Negative [facility] CT guided needle placementon 09-01-2023 CT guided needle placement [facility] [place] [address] [place] [address] CT Scan Report Signed Patient: Margie Martínez MR#: [id number] : 1940 Acct:[id number] Age/Sex: 83 / F ADM Date: 09/01/23 Loc: CT Room: Type: [facility] Attending Dr: Rin Sarmiento MD Copies to: Rin Sarmiento MD Ordering Provider: Rin Sarmiento MD Date of Service: 09/01/23 CT/CT guided biopsy: ANGELINA with nephrotic range proteinuria, hypoalbumine ([id number]) CT/CT guided needle placement: random kidney bx CT GUIDED kidneyBIOPSY: CLINICAL HISTORY: Acute kidney injury with proteinuria. COMPARISON : none FINDINGS: After questions were answered, informed consent was obtained. The patient was placed proneon the CT table and the right kidney was selected for biopsy. The skin over the right kidneywas prepped and draped in normal sterile fashion. 1% lidocaine was utilized for local anesthesia. Utilizing CT guidance, an 18-gauge biopince system was advanced into the inferior pole of the right kidney and 3 core biopsies were obtained. After the sample was deemed adequate by pathology, the needle was withdrawn. Hemostasis was achieved. Bandage was applied. The patient tolerated procedure well without immediate complication. Please note that the patient was monitored throughout the procedure by nursing personnel. This CT exam was performed using one or more following dose reduction techniques: Automated exposure control, adjustment of the mA and/or kV according to patient size, or use of iterative reconstruction technique. CT/CT guided biopsy IMPRESSION: Successful CT-guided renal biopsy. Impression dictated by: Kj Urias Jr., DAzarOAzar09/01/2023 1:30 PM Dictation Location: [place] [address] Transcribed By: [facility] 09/01/23 1330 Dictated By: Kj Urias Jr, DO 09/01/23 1328 Signed By: 09/01/23 1330 Normal [facility] Calcium [Mass/volume] in Ser um or PlasmaOrdered By: Rin Sarmiento on 09-01-2023 Calcium [Mass/Vol] 8.9 mg/dL 8.6-10.3 [facility] Carbon dioxide, total [Moles /volume] in Serum or PlasmaOrdered By: Rin Sarmiento on 09-01-2023 CO2 [Moles/Vol] 30.5 mmol/L 21.0-31.0 [facility] Chloride [Moles/volume] in S adriana or PlasmaOrdered By: Rin Sarmiento on 09-01-2023 Chloride [Moles/Vol] 107 mmol/L 98-107 [facility] Color Auto (U)Ordered By: Domingo Sarmiento on 09-01-2023 Color (U) Yellow Yellow [facility] Creatinine [Mass/volume] in Serum or PlasmaOrdered By: Rin Sarmiento on 09-01-2023 Creatinine [Mass/Vol] 2.02 mg/dL 0.60-1.20 [facility] Creatinine [Mass/volume] in UrineOrdered By: Rin Sarmiento on 09-01-2023 Creatinine (U) [Mass/Vol] 52.0 mg/dL [facility] Comment on above: No reference range e stablished Dipstick and Microscopicon 0 09-01-2023 Appearance (U) Cloudy Critically abnormal Clear [facility] Comment on above: Order Comment: Name Collection Type:: Clean-Voided Midstream Performed By: #### V [id number], BHANU, RENAL, [id number], ADDONUAPLUS, PROCRERAT, FLAKO, MG, PTH, PT, CBCNO, PTT, URMACRERAT, FE and TIBC #### [facility] [address] Bacteria,Urine None Seen Normal None Seen [facility] Comment on above: Order Comment: Name Collection Type:: Clean-Voided Midstream Performed By: #### V [id number], BHANU, RENAL, [id number], ADDONUAPLUS, PROCRERAT, FLAKO, MG, PTH, PT, CBCNO, PTT, URMACRERAT, FE and TIBC #### [facility] [address] [place] [address] [place] Bilirubin,Urine Negative Normal Negative [facility] Comment on above: Order Comment: Name Collection Type:: Clean-Voided Midstream Performed By: #### V [id number], BHANU, RENAL, [id number], ADDONUAPLUS, PROCRERAT, FLAKO, MG, PTH, PT, CBCNO, PTT, URMACRERAT, FE and TIBC #### [address] Color (U) Yellow Normal Yellow [facility] Comment on above: Order Comment: Name Collection Type:: Clean-Voided Midstream Performed By: #### V [id number], BHANU, RENAL, [id number], ADDONUAPLUS, PROCRERAT, FLAKO, MG, PTH, PT, CBCNO, PTT, URMACRERAT, FE and TIBC #### [address] Glucose Ql (U) Normal Normal Normal [facility] Comment on above: Order Comment: Name Collection Type:: Clean-Voided Midstream Performed By: #### V [id number], BHANU, RENAL, [id number], ADDONUAPLUS, PROCRERAT, FLAKO, MG, PTH, PT, CBCNO, PTT, URMACRERAT, FE and TIBC #### [address] Hyaline Casts,Urine 0-8 Normal 0-8 [facility] Comment on above: Order Comment: Name Collection Type:: Clean-Voided Midstream Result Comment: PERF ORMED BY: [place] [address] PATHOLOGIST PLUG STITCHER JEWELL ROWLEY M.D. Performed By: #### V [id number], BHANU, RENAL, [id number], ADDONUAPLUS, PROCRERAT, FLAKO, MG, PTH, PT, CBCNO, PTT, URMACRERAT, FE and TIBC #### [address] Ketones Ql (U) Negative Normal Negative [facility] Comment on above: Order Comment: Name Collection Type:: Clean-Voided Midstream Performed By: #### V [id number], BHANU, RENAL, [id number], ADDONUAPLUS, PROCRERAT, FLAKO, MG, PTH, PT, CBCNO, PTT, URMACRERAT, FE and TIBC #### [address] Leukocyte esterase Test strip Ql (U) Negative Normal Negative [facility] Comment on above: Order Comment: Name Collection Type:: Clean-Voided Midstream Performed By: #### V [id number], BHANU, RENAL, [id number], ADDONUAPLUS, PROCRERAT, FLAKO, MG, PTH, PT, CBCNO, PTT, URMACRERAT, FE and TIBC #### [address] Nitrite,Urine Negative Normal Negative [facility] Comment on above: Order Comment: Name Collection Type:: Clean-Voided Midstream Performed By: #### V [id number], BHANU, RENAL, [id number], ADDONUAPLUS, PROCRERAT, FLAKO, MG, PTH, PT, CBCNO, PTT, URMACRERAT, FE and TIBC #### [address] Occult Blood,Urine 1+ High Negative [facility] Comment on above: Order Comment: Name Collection Type:: Clean-Voided Midstream Result Comment: PERF ORMED BY: [place] [address] PATHOLOGIST PLUG STITCHER JEWELL ROWLEY M.D. Performed By: #### V [id number], BHANU, RENAL, [id number], ADDONUAPLUS, PROCRERAT, FLAKO, MG, PTH, PT, CBCNO, PTT, URMACRERAT, FE and TIBC #### [address] pH (U) 7.0 [pH] Normal 5.0-9.0 [facility] Comment on above: Order Comment: Name Collection Type:: Clean-Voided Midstream Performed By: #### V [id number], BHANU, RENAL, [id number], ADDONUAPLUS, PROCRERAT, FLAKO, MG, PTH, PT, CBCNO, PTT, URMACRERAT, FE and TIBC #### [address] Protein (U) [Mass/Vol] 300 mg/dL High Negative Th e [facility] Comment on above: Order Comment: Name Collection Type:: Clean-Voided Midstream Performed By: #### V [id number], BHANU, RENAL, [id number], ADDONUAPLUS, PROCRERAT, FLAKO, MG, PTH, PT, CBCNO, PTT, URMACRERAT, FE and TIBC #### [address] RBC,Urine 50-100 High 0-4 [facility] Comment on above: Order Comment: Name Collection Type:: Clean-Voided Midstream Performed By: #### V [id number], BHANU, RENAL, [id number], ADDONUAPLUS, PROCRERAT, FLAKO, MG, PTH, PT, CBCNO, PTT, URMACRERAT, FE and TIBC #### [address] Specificy [place],Urine 1.015 Normal 1.001-1.03 0 [facility] Comment on above: Order Comment: Name Collection Type:: Clean-Voided Midstream Performed By: #### V [id number], BHANU, RENAL, [id number], ADDONUAPLUS, PROCRERAT, FLAKO, MG, PTH, PT, CBCNO, PTT, URMACRERAT, FE and TIBC #### [address] Squamous Epithelial Cell,Urine 0-1 Normal 0-2 [facility] Comment on above: Order Comment: Name Collection Type:: Clean-Voided Midstream Performed By: #### V [id number], BHANU, RENAL, [id number], ADDONUAPLUS, PROCRERAT, FLAKO, MG, PTH, PT, CBCNO, PTT, URMACRERAT, FE and TIBC #### [address] Urobilinogen,Urine Normal Normal Normal [facility] Comment on above: Order Comment: Name Collection Type:: Clean-Voided Midstream Performed By: #### V [id number], BHANU, RENAL, [id number], ADDONUAPLUS, PROCRERAT, FLAKO, MG, PTH, PT, CBCNO, PTT, URMACRERAT, FE and TIBC #### [address] WBC,Urine 1-2 Normal 0-4 [facility] Comment on above: Order Comment: Name Collection Type:: Clean-Voided Midstream Performed By: #### V [id number], BHANU, RENAL, [id number], ADDONUAPLUS, PROCRERAT, FLAKO, MG, PTH, PT, CBCNO, PTT, URMACRERAT, FE and TIBC #### [address] Erythrocyte distribution wid th Auto (RBC) [Ratio]Ordered By: Rin Sarmiento on 09-01-2023 Erythrocyte distribution width (RBC) [Ratio] 14.7 % 11.9-15.3 [facility] Ferritinon 09-01-2023 Ferritin [Mass/Vol] 16.5 ng/mL Normal 11.0-306.8 [facility] Comment on above: Performed By: #### V [id number], BHANU, RENAL, [id number], ADDONUAPLUS, PROCRERAT, FLAKO, MG, PTH, PT, CBCNO, PTT, URMACRERAT, FE and TIBC #### [address] Ferritin [Mass/volume] in Se rum or PlasmaOrdered By: Rin Sarmiento on 09-01-2023 Ferritin [Mass/Vol] 16.5 ng/mL 11.0-306.8 [facility] Folate [Mass/volume] in Seru m or PlasmaOrdered By: Rin Sarmiento on 09-01-2023 Folate [Mass/Vol] 16.5 ng/mL >5.9 [facility] Comment on above: Folate reference ran ge: >5.9 ng/mlThe WHO technical consultation on folate and vitamin [id number] has determined that folate concentrations lessthan 4 ng/ml are considered deficient. Glucose [Mass/volume] in Ser um or PlasmaOrdered By: Rin Sarmiento on 09-01-2023 Glucose [Mass/Vol] 121 mg/dL 70-100 [facility] Comment on above: ADA recommended refe rence rangeRandom Glucose Reference Range is dependent on time and content of last meal. Glucose of more than 200 mg/dL in a nonstressed, ambulatory subject supports the diagnosis of Diabetes Mellitus. Hematocrit Auto (Bld) [Volum e fraction]Ordered By: Rin Sarmiento on 09-01-2023 Hematocrit (Bld) [Volume fraction] 25.0 % 34.0-46.4 [facility] Hemoglobin [Mass/volume] in BloodOrdered By: Rin Sarmiento on 09-01-2023 Hemoglobin (Bld) [Mass/Vol] 8.0 g/dL 11.8-15.4 [facility] Hemogram CBC Without Diffon 09-01-2023 Erythrocyte distribution width (RBC) [Ratio] 14.7 % Normal 11.9-15.3 [facility] Comment on above: Performed By: #### V [id number], BHANU, RENAL, [id number], ADDONUAPLUS, PROCRERAT, FLAKO, MG, PTH, PT, CBCNO, PTT, URMACRERAT, FE and TIBC #### [facility] [address] Hematocrit (Bld) [Volume fraction] 25.0 % Low 34.0-46.4 [facility] Comment on above: Performed By: #### V [id number], BHANU, RENAL, [id number], ADDONUAPLUS, PROCRERAT, FLAKO, MG, PTH, PT, CBCNO, PTT, URMACRERAT, FE and TIBC #### [facility] [address] [place] [address] Hemoglobin (Bld) [Mass/Vol] 8.0 g/dL Low 11.8-15.4 [facility] Comment on above: Performed By: #### V [id number], BHANU, RENAL, [id number], ADDONUAPLUS, PROCRERAT, FLAKO, MG, PTH, PT, CBCNO, PTT, URMACRERAT, FE and TIBC #### [address] MCH (RBC) [Entitic mass] 29.3 pg Normal 24.7-34.3 [facility] Comment on above: Performed By: #### V [id number], BHANU, RENAL, [id number], ADDONUAPLUS, PROCRERAT, FLAKO, MG, PTH, PT, CBCNO, PTT, URMACRERAT, FE and TIBC #### [address] MCV (RBC) [Entitic vol] 92.0 fL Normal 80-100 [facility] Comment on above: Performed By: #### V [id number], BHANU, RENAL, [id number], ADDONUAPLUS, PROCRERAT, FLAKO, MG, PTH, PT, CBCNO, PTT, URMACRERAT, FE and TIBC #### [address] Mean Corpuscular HGB Conc 31.9 g/dL Low 32.0-35.0 [facility] Comment on above: Performed By: #### V [id number], BHANU, RENAL, [id number], ADDONUAPLUS, PROCRERAT, FLAKO, MG, PTH, PT, CBCNO, PTT, URMACRERAT, FE and TIBC #### [address] Platelet mean volume (Bld) [Entitic vol] 8.1 fL Normal 6.3-10.7 [facility] Comment on above: Result Comment: PERF ORMED BY: [place] [address] PATHOLOGIST PLUG STITCHER JEWELL ROWLEY M.D. Performed By: #### V [id number], BHANU, RENAL, [id number], ADDONUAPLUS, PROCRERAT, FLAKO, MG, PTH, PT, CBCNO, PTT, URMACRERAT, FE and TIBC #### [facility] [address] Platelets (Bld) [#/Vol] 214 10*3/uL Normal 150-450 [facility] Comment on above: Performed By: #### V [id number], BHANU, RENAL, [id number], ADDONUAPLUS, PROCRERAT, FLAKO, MG, PTH, PT, CBCNO, PTT, URMACRERAT, FE and TIBC #### [address] RBC (Bld) [#/Vol] 2.72 10*6/uL Low 3.60-5.00 [facility] Comment on above: Performed By: #### V [id number], BHANU, RENAL, [id number], ADDONUAPLUS, PROCRERAT, FLAKO, MG, PTH, PT, CBCNO, PTT, URMACRERAT, FE and TIBC #### [address] WBC (Bld) [#/Vol] 4.7 10*3/uL Normal 3.8-11.6 [facility] Comment on above: Performed By: #### V [id number], BHANU, RENAL, [id number], ADDONUAPLUS, PROCRERAT, FLAKO, MG, PTH, PT, CBCNO, PTT, URMACRERAT, FE and TIBC #### [address] INR in Platelet poor plasma by Coagulation assayOrdered By: Rin Sarmiento on 09-01-2023 INR Coag (PPP) [Relative time] 1.0 {INR} [facility] Comment on above: INR Therapeutic Rang e A) Pre- and Peroperative OAT started two weeks before surgery. NOT HIP SURGERY: 1.5 - 2.5 HIP SURGERY: 2 - 3B) Primary and secondary prevention of venous THROMBOSIS: 2 - 3C) Active venous thrombosis, pulmonary embolismand prevention of recurrent venous thrombosis: 2 - 3D) Prevention of arterial thromboembolismincluding patients with mechanical heart valves: 3 - 4.5 Iron [Mass/volume] in Serum or PlasmaOrdered By: Rin Sarmiento on 09-01-2023 Iron [Mass/Vol] 122 ug/dL 50-212 [facility] Iron and TIBC Profileon 08-17 % Iron Saturation 33.9 % Normal 20-50 [facility] Comment on above: Performed By: #### V [id number], BHANU, RENAL, [id number], ADDONUAPLUS, PROCRERAT, FLAKO, MG, PTH, PT, CBCNO, PTT, URMACRERAT, FE and TIBC #### [facility] [address] Iron [Mass/Vol] 122 ug/dL Normal 50-212 [facility] Comment on above: Performed By: #### V [id number], BHANU, RENAL, [id number], ADDONUAPLUS, PROCRERAT, FLAKO, MG, PTH, PT, CBCNO, PTT, URMACRERAT, FE and TIBC #### [facility] [address] Total Iron Binding Capacity 360 ug/dL Normal 255-450 [facility] Comment on above: Performed By: #### V [id number], BHANU, RENAL, [id number], ADDONUAPLUS, PROCRERAT, FLAKO, MG, PTH, PT, CBCNO, PTT, URMACRERAT, FE and TIBC #### [facility] [address] Transferrin [Mass/Vol] 257 mg/dL Normal 203-[address] [facility] Comment on above: Performed By: #### V [id number], BHANU, RENAL, [id number], ADDONUAPLUS, PROCRERAT, FLAKO, MG, PTH, PT, CBCNO, PTT, URMACRERAT, FE and TIBC #### [facility] [address] Iron binding capacity [Mass/ volume] in Serum or PlasmaOrdered By: Rin Sarmiento on 09-01-2023 Iron binding capacity [Mass/Vol] 360 ug/dL 255-450 [facility] Iron saturation [Mass Fracti on] in Serum or PlasmaOrdered By: Rin Sarmiento on 09-01-2023 Iron saturation [Mass fraction] 33.9 % 20-50 [facility] Ketones Auto test strip (U) [Mass/Vol]Ordered By: Rin Sarmiento on 09-01-2023 Ketones (U) [Mass/Vol] Negative Negative Fi [facility] N[place]un 09-01-2023 L Specimen: Received: 09/01/23 Status: MAIA Req Num: [id number] Spec Type: Surgical Subm Dr: Kj Urias Jr, DO Tissues: A Gross Only ([facility] BX) Procedures: Level 1 Gross Age/ Patient Sex Location Account Attending Physician Margie Martínez 83/F CT [id number] Rni Sarmiento MD SPEC NUM: RECD: 09/01/23 STATUS: MAIA REQ NUM: [id number] DEMAR: 09/01/[address]: Kj Urias Jr, DO ENTERED: 09/01/23 [facility] DR: SPEC TYPE: Surgical DEPT: S ORDERED: Level 1 Gross ORDERED: Level 1 Gross Supplemental Report Addendum 1 Entered: 09/03/23 Supplemental for findings of Consultation Report from [facility] in [facility]: DIAGNOSIS: -Fibrillary Glomerulopathy -Arterionephrosclerosis Note: -Please also see entire report on file for detailed description Addendum Signed (signature on file) Chris Lin MD 09/03/23932 Specimen: Received: 09/01/23 Status: MAIA Cohen Num: [id number] Spec Type: Surgical Subm Dr: Kj Urias Jr, Tissues: A Gross Only ([facility] BX) Procedures: Level 1 Gross Patient: Margie Martínez [id number] (Continued) Specimen: Received: 09/01/23 (Continued) Signed (signature on file) Chris Lin MD 09/03/23 0929 Specimen: Received: 09/01/23 Status: MAIA Cohen Num: [id number] Spec Type: Surgical Subm Dr: Kj Urias Jr, Tissues: A Gross Only ([facility] BX) Procedures: Level 1 Gross Patient: Dany Martínezguanaco [place] [id number] (Continued) Specimen: Received: 09/01/23 (Continued) Pathological Diagnosis Right kidney random core biopsy: -3 feldman-pink needle cores to be placed in special fixation solutions and to be forwarded to [facility] for final consultation interpretation. Gross only examination Gross Description In formalin labeled right kidney tissue are three feldman-pink needle cores ranging in size from 1.4 cm to 1.9 cm long x 0.1 cm average diameter. Submitted entirely in Lewis's solution and in 10% neutral buffered formalin. RG/CYC Clinical history: ANGELINA, proteinuria, hypoalbuminemia CPT Codes 77574 Specimen: [id number] Received: 09/01/23 Status: MAIA Cohen Num: [id number] Spec Type: Surgical Subm Dr: Kj Urias Jr, DO Tissues: A Gross Only ([facility] KIDNEY BX) Procedures: Level 1 Gross Patient: Margie Martínez [id number] (Continued) Signed (signature on file) Chris Lin MD 09/03/23 0929 Normal [facility] Laboratory - UrinalysisOrder ed By: Rin Sarmiento on 09-01-2023 Hyaline casts LM Ql (Urine sed) 0-8 [LPF] 0-8 [facility] Leukocytes [#/volume] correc katy for nucleated erythrocytes in Blood by Automated counOrdered By: Rin Sarmiento on 09-01-2023 WBC corrected for nucl RBC Auto (Bld) [#/Vol] 4.7 10*3/uL 3.8-11.6 [facility] MCH Auto (RBC) [Entitic mass ]Ordered By: Rin Sarmiento on 09-01-2023 MCH (RBC) [Entitic mass] 29.3 pg 24.7-34.3 [facility] MCHC Auto (RBC) [Mass/Vol]Or dered By: Rin Sarmiento on 09-01-2023 MCHC (RBC) [Mass/Vol] 31.9 g/dL 32.0-35.0 [facility] MCV Auto (RBC) [Entitic vol] Ordered By: Rin Sarmiento on 09-01-2023 MCV (RBC) [Entitic vol] 92.0 fL 80-100 [facility] Magnesiumon 09-01-2023 Magnesium [Mass/Vol] 1.9 mg/dL Normal 1.9-2.7 [facility] Comment on above: Performed By: #### V [id number], BHANU, RENAL, [id number], ADDONUAPLUS, PROCRERAT, FLAKO, MG, PTH, PT, CBCNO, PTT, URMACRERAT, FE and TIBC #### [facility] [address] Magnesium [Mass/volume] in S adriana or PlasmaOrdered By: Rin Sarmiento on 09-01-2023 Magnesium [Mass/Vol] 1.9 mg/dL 1.9-2.7 [facility] MicroAlb Creat Ratio,Uon Albumin DL <= 20 mg/L (U) [Mass/Vol] mg/dL High 0.0-1.8 [facility] Comment on above: Performed By: #### V [id number], BHANU, RENAL, [id number], ADDONUAPLUS, PROCRERAT, FLAKO, MG, PTH, PT, CBCNO, PTT, URMACRERAT, FE and TIBC #### [facility] [address] Creatinine, Urine (Random) 52.0 mg/dL Normal [facility] Comment on above: Result Comment: No r eference range established Performed By: #### V [id number], BHANU, RENAL, [id number], ADDONUAPLUS, PROCRERAT, FLAKO, MG, PTH, PT, CBCNO, PTT, URMACRERAT, FE and TIBC #### [facility] [address] Microalbumin/Creatinin e Ratio Not performed Normal 0.0-30.0 [facility] Comment on above: Performed By: #### V [id number], BHANU, RENAL, [id number], ADDONUAPLUS, PROCRERAT, FLAKO, MG, PTH, PT, CBCNO, PTT, URMACRERAT, FE and TIBC #### [facility] [address] Microalbumin [Mass/volume] i n UrineOrdered By: Rin Sarmiento on 09-01-2023 Albumin DL <= 20 mg/L (U) [Mass/Vol] mg/dL 0.0-1.8 [facility] Nitrite Test strip Ql (U)Ord ered By: Rin Sarmiento on 09-01-2023 Nitrite Ql (U) Negative Negative [facility] No Panel InformationOrdered By: Rin Sarmiento on 09-01-2023 Estimated GFR (CKD-EPI) 24.043 mL/Min [facility] Creatinine Clearance (Chem 21.55 [facility] Parathyrin.intact [Mass/volu me] in Serum or PlasmaOrdered By: Rin Sarmiento on 09-01-2023 Parathyrin.intact [Mass/Vol] 188.2 pg/mL [facility] [facility] Parathyroid Hormone Intacton 09-01-2023 Parathyroid Hormone Intact 188.2 pg/mL High [facility] Comment on above: Result Comment: PERF ORMED BY: [place] [address] PATHOLOGIST PLUG STITCHER JEWELL ROWLEY M.D. Performed By: #### V [id number], BHANU, RENAL, [id number], ADDONUAPLUS, PROCRERAT, FLAKO, MG, PTH, PT, CBCNO, PTT, URMACRERAT, FE and TIBC #### [facility] [address] [place] [address] [place] Partial Thromboplastin Timeo n 09-01-2023 aPTT Coag (Bld) [Time] 30.5 s Normal 25.1-36.5 Th e [facility] Comment on above: Result Comment: A he matocrit value greater than 55% may lead to inaccurate results in coagulation testing. Patients having hematocrit values >55% require a special collection tube for coagulation studies. Please contact the laboratory at [phone] for redraw instructions. PERFORMED BY: [facility] [address] [place] [address] PATHOLOGIST PLUG STITCHER JEWELL ROWLEY M.D. Performed By: #### V [id number], BHANU, RENAL, [id number], ADDONUAPLUS, PROCRERAT, FLAKO, MG, PTH, PT, CBCNO, PTT, URMACRERAT, FE and TIBC #### [facility] [address] [place] [address] [facility] Phosphate [Mass/volume] in S adriana or PlasmaOrdered By: Rin Sarmiento on 09-01-2023 Phosphate [Mass/Vol] 4.2 mg/dL 2.5-4.5 [facility] Platelet mean volume Auto (B ld) [Entitic vol]Ordered By: Rin Sarmiento on 09-01-2023 Platelet mean volume (Bld) [Entitic vol] 8.1 fL 6.3-10.7 [facility] Platelets Auto (Bld) [#/Vol] Ordered By: Rin Sarmiento on 09-01-2023 Platelets (Bld) [#/Vol] 214 10*3/uL 150-450 [facility] Potassium [Moles/volume] in Serum or PlasmaOrdered By: Rin Sarmiento on 09-01-2023 Potassium [Moles/Vol] 4.7 mmol/L 3.5-5.1 [facility] Protein Auto test strip (U) [Mass/Vol]Ordered By: Rin Sarmiento on 09-01-2023 Protein (U) [Mass/Vol] 300 mg/dL Negative Fi [facility] Protein Creat Ratio Ur Rando mon 09-01-2023 Protein (U) [Mass/Vol] 199 mg/dL High 0-9 Th e [facility] Comment on above: Performed By: #### V [id number], BHANU, RENAL, [id number], ADDONUAPLUS, PROCRERAT, FLAKO, MG, PTH, PT, CBCNO, PTT, URMACRERAT, FE and TIBC #### [facility] [address] Urine Protein/Creatinine Ratio 3827 mg/g{Cre} High 0-200 [facility] Comment on above: Performed By: #### V [id number], BHANU, RENAL, [id number], ADDONUAPLUS, PROCRERAT, FLAKO, MG, PTH, PT, CBCNO, PTT, URMACRERAT, FE and TIBC #### [facility] [address] Protein [Mass/volume] in Uri neOrdered By: Rin Sarmiento on 09-01-2023 Protein (U) [Mass/Vol] 199 mg/dL 0-9 [facility] Prothrombin Time INRon 08-31 INR Coag (PPP) [Relative time] 1.0 {INR} Normal [facility] Comment on above: Result Comment: INR Therapeutic Range A) Pre- and Peroperative OAT started two weeks before surgery. NOT HIP SURGERY: 1.5 - 2.5 HIP SURGERY: 2 - 3 B) Primary and secondary prevention of venous THROMBOSIS: 2 - 3 C) Active venous thrombosis, pulmonary embolism and prevention of recurrent venous thrombosis: 2 - 3 D) Prevention of arterial thromboembolism including patients with mechanical heart valves: 3 - 4.5 Performed By: #### V [id number], BHANU, RENAL, [id number], ADDONUAPLUS, PROCRERAT, FLAKO, MG, PTH, PT, CBCNO, PTT, URMACRERAT, FE and TIBC #### [facility] [address] PT Coag (PPP) [Time] 11.4 s Normal 9.0-12.9 [facility] Comment on above: Result Comment: A he matocrit value greater than 55% may lead to inaccurate results in coagulation testing. Patients having hematocrit values >55% require a special collection tube for coagulation studies. Please contact the laboratory at [phone] for redraw instructions. Performed By: #### V [id number], BHANU, RENAL, [id number], ADDONUAPLUS, PROCRERAT, FLAKO, MG, PTH, PT, CBCNO, PTT, URMACRERAT, FE and TIBC #### [facility] [address] Prothrombin time (PT)Ordered By: Rin Sarmiento on 09-01-2023 PT Coag (PPP) [Time] 11.4 s 9.0-12.9 [facility] Comment on above: A hematocrit value g reater than 55% may lead to inaccurate results in coagulation testing. Patients having hematocrit values >55% require a special collection tube for coagulation studies. Please contact the laboratory at [phone] for redraw instructions. RBC Auto (Bld) [#/Vol]Ordere d By: Rin Sarmiento on 09-01-2023 RBC (Bld) [#/Vol] 2.72 10*6/uL 3.60-5.00 [facility] Renal Function Panelon 08-31 Albumin [Mass/Vol] 3.6 g/dL Normal 3.5-5.7 [facility] Comment on above: Performed By: #### V [id number], BHANU, RENAL, [id number], ADDONUAPLUS, PROCRERAT, FLAKO, MG, PTH, PT, CBCNO, PTT, URMACRERAT, FE and TIBC #### [facility] [address] [place] [id number] [facility] Anion gap [Moles/Vol] 9.2 mmol/L Normal 6.0-15.0 [facility] Comment on above: Performed By: #### V [id number], BHANU, RENAL, [id number], ADDONUAPLUS, PROCRERAT, FLAKO, MG, PTH, PT, CBCNO, PTT, URMACRERAT, FE and TIBC #### [facility] [address] [place] [id number] [facility] Calcium [Mass/Vol] 8.9 mg/dL Normal 8.6-10.3 [facility] Comment on above: Performed By: #### V [id number], BHANU, RENAL, [id number], ADDONUAPLUS, PROCRERAT, FLAKO, MG, PTH, PT, CBCNO, PTT, URMACRERAT, FE and TIBC #### [address] Chloride [Moles/Vol] 107 mmol/L Normal 98-107 [facility] Comment on above: Performed By: #### V [id number], BHANU, RENAL, [id number], ADDONUAPLUS, PROCRERAT, FLAKO, MG, PTH, PT, CBCNO, PTT, URMACRERAT, FE and TIBC #### [address] CO2 [Moles/Vol] 30.5 mmol/L Normal 21.0-31.0 The [facility] Comment on above: Performed By: #### V [id number], BHANU, RENAL, [id number], ADDONUAPLUS, PROCRERAT, FLAKO, MG, PTH, PT, CBCNO, PTT, URMACRERAT, FE and TIBC #### [address] Creatinine [Mass/Vol] 2.02 mg/dL High 0.60-1.20 [facility] Comment on above: Performed By: #### V [id number], BHANU, RENAL, [id number], ADDONUAPLUS, PROCRERAT, FLAKO, MG, PTH, PT, CBCNO, PTT, URMACRERAT, FE and TIBC #### [address] Creatinine Clr Calc Pharmacy 21.55 Normal [facility] Comment on above: Performed By: #### V [id number], BHANU, RENAL, [id number], ADDONUAPLUS, PROCRERAT, FLAKO, MG, PTH, PT, CBCNO, PTT, URMACRERAT, FE and TIBC #### [address] GFR/1.73 sq M.predicted MDRD (S/P/Bld) [Vol rate/Area] 24.043 mL/min/{1.73_m2} Normal [facility] Comment on above: Performed By: #### V [id number], BHANU, RENAL, [id number], ADDONUAPLUS, PROCRERAT, FLAKO, MG, PTH, PT, CBCNO, PTT, URMACRERAT, FE and TIBC #### [address] Glucose [Mass/Vol] 121 mg/dL High 70-100 [facility] Comment on above: Result Comment: [facility] Glucose Reference Range is dependent on time and content of last meal. Glucose of more than 200 mg/dL in a nonstressed, ambulatory subject supports the diagnosis of Diabetes Mellitus. ADA recommended reference range Performed By: #### V [id number], BHANU, RENAL, [id number], ADDONUAPLUS, PROCRERAT, FLAKO, MG, PTH, PT, CBCNO, PTT, URMACRERAT, FE and TIBC #### [facility] [address] Phosphate [Mass/Vol] 4.2 mg/dL Normal 2.5-4.5 [facility] Comment on above: Performed By: #### V [id number], BHANU, RENAL, [id number], ADDONUAPLUS, PROCRERAT, FLAKO, MG, PTH, PT, CBCNO, PTT, URMACRERAT, FE and TIBC #### [address] Potassium [Moles/Vol] 4.7 mmol/L Normal 3.5-5.1 [facility] Comment on above: Performed By: #### V [id number], BHANU, RENAL, [id number], ADDONUAPLUS, PROCRERAT, FLAKO, MG, PTH, PT, CBCNO, PTT, URMACRERAT, FE and TIBC #### [facility] [address] Sodium [Moles/Vol] 142 mmol/L Normal 136-145 [facility] Comment on above: Performed By: #### V [id number], BHANU, RENAL, [id number], ADDONUAPLUS, PROCRERAT, FLAKO, MG, PTH, PT, CBCNO, PTT, URMACRERAT, FE and TIBC #### [address] Urea nitrogen [Mass/Vol] 32 mg/dL High 7-25 [facility] Comment on above: Performed By: #### V [id number], BHANU, RENAL, [id number], ADDONUAPLUS, PROCRERAT, FLAKO, MG, PTH, PT, CBCNO, PTT, URMACRERAT, FE and TIBC #### [address] Serum or plasma anion gap de terminationOrdered By: Rin Sarmiento on 09-01-2023 Anion gap [Moles/Vol] 9.2 mmol/L 6.0-15.0 [facility] Sodium [Moles/volume] in Ser um or PlasmaOrdered By: Rin Sarmiento on 09-01-2023 Sodium [Moles/Vol] 142 mmol/L 136-145 [facility] Sodium [Moles/volume] in Uri neOrdered By: Rin Sarmiento on 09-01-2023 Sodium (U) [Moles/Vol] 137 mmol/L [facility] Comment on above: No reference range e stablished Sodium, Urine (Random)on Sodium (U) [Moles/Vol] 137 mmol/L Normal Th e [facility] Comment on above: Result Comment: No r eference range established PERFORMED BY: [place] [address] PATHOLOGIST PLUG STITCHER JEWELL ROWLEY M.D. Performed By: #### V [id number], BHANU, RENAL, [id number], ADDONUAPLUS, PROCRERAT, FLAKO, MG, PTH, PT, CBCNO, PTT, URMACRERAT, FE and TIBC #### [address] Specific gravity Auto test s trip (U) [Rel density]Ordered By: Rin Sarmiento on 09-01-2023 Specific gravity (U) [Rel density] 1.015 1.001-1.03 0 [facility] Squamous epithelial cells de tection in urine sediment by light microscopyOrdered By: Rin Sarmiento on 09-01-2023 Epithelial cells.squamous LM Ql (Urine sed) 0-1 [HPF] 0-2 [facility] Transferrin [Mass/volume] in Serum or PlasmaOrdered By: Rin Sarmiento on 09-01-2023 Transferrin [Mass/Vol] 257 mg/dL 203-362 [facility] Urea nitrogen [Mass/volume] in Serum or PlasmaOrdered By: Rin Sarmiento on 09-01-2023 Urea nitrogen [Mass/Vol] 32 mg/dL 7-25 [facility] Urine bacteria detection by automated methodOrdered By: Rin Sarmiento on 09-01-2023 Bacteria Auto Ql (U) None seen None Seen [facility] Urine clarity by refractomet ry automatedOrdered By: Rin Sarmiento on 09-01-2023 Clarity Refractometry automated (U) Cloudy Clear [facility] Urine glucose measurement by automated test strip (mass/volume)Ordered By: Rin Sarmiento on 09-01-2023 Glucose Auto test strip (U) [Mass/Vol] Normal mg/dL Normal [facility] Urine hemoglobin detection b y automated test stripOrdered By: Rin Sarmiento on 09-01-2023 Hemoglobin Auto test strip Ql (U) 1+ Negative [facility] Urine leukocyte esterase det ection by automated test stripOrdered By: Rin Sarmiento on 09-01-2023 Leukocyte esterase Auto test strip Ql (U) Negative Negative [facility] Urine microalbumin/creatinin e mass ratioOrdered By: Rin Sarmiento on 09-01-2023 Albumin/Creatinine DL <= 20 mg/L (U) [Mass ratio] TNP [facility] Comment on above: Test not performed Urine protein/creatinine rat ioOrdered By: Rin Sarmiento on 09-01-2023 Protein/Creatinine (U) [Ratio] 3827 mg/g{Cre} 0-200 [facility] Urobilinogen Auto test strip (U) [Mass/Vol]Ordered By: Rin Sarmiento on 09-01-2023 Urobilinogen (U) [Mass/Vol] Normal mg/dL Normal [facility] Vit. B12/Folate Profileon Cobalamin (Vitamin B12) [Mass/Vol] 862 pg/mL Normal 180-914 [facility] Comment on above: Performed By: #### V [id number], BHANU, RENAL, [id number], ADDONUAPLUS, PROCRERAT, FLAKO, MG, PTH, PT, CBCNO, PTT, URMACRERAT, FE and TIBC #### [facility] [address] Folate 16.5 ng/mL Normal >5.9 [facility] Comment on above: Result Comment: Arlen te reference range: >5.9 ng/ml The WHO technical consultation on folate and vitamin b12 deficiencies has determined that folate concentrations less than 4 ng/ml are considered deficient. Performed By: #### V [id number], BHANU, RENAL, [id number], ADDONUAPLUS, PROCRERAT, FLAKO, MG, PTH, PT, CBCNO, PTT, URMACRERAT, FE and TIBC #### [facility] [address] Vitamin B12 ser/plasOrdered By: Rin Sarmiento on 09-01-2023 Cobalamin (Vitamin B12) [Mass/Vol] 862 pg/mL 180-914 [facility] Vitamin D 25 Hydroxy Totalon 09-01-2023 Vitamin D 25 Hydroxy Total 18.3 ng/mL Low 30-100 [facility] Comment on above: Result Comment: YULY MIN D STATUS 25(OH)VITAMIN D RANGE (ng/mL) Deficient <20 Insufficient 20 to <30 Sufficient 30 to 100 Reference: Jacoby MF,Rell CARR, Xochitl WILLIAMSON, et al. Evaluation,treatment, and prevention of vitamin D deficiency; an Endocrine Society clinical practice guideline. JCEM. 2010; 96(7):1911-30. PERFORMED BY: [address] [address] PATHOLOGIST PLUG STITCHER JEWELL ROWLEY M.D. Performed By: #### V [id number], BHANU, RENAL, [id number], ADDONUAPLUS, PROCRERAT, FLAKO, MG, PTH, PT, CBCNO, PTT, URMACRERAT, FE and TIBC #### [facility] [address] Vitamin D+Metabolites [Mass/ volume] in Serum or PlasmaOrdered By: Rin Sarmiento on 09-01-2023 Vitamin D+Metabolites [Mass/Vol] 18.3 ng/mL 30-100 [facility] Comment on above: VITAMIN D STATUS 25( [place])VITAMIN D RANGE (ng/mL) Deficient <20 Insufficient 20 to <30Sufficient 30 to 100Reference: Jacoby MF,Rell CARR, Xochitl WILLIAMSON, et al. Evaluation,treatment, and prevention of vitamin D deficiency; an Endocrine Society clinical practice guideline. JCEM. 2010; 96(7):1911-30. pH Auto test strip (U)Ordere d By: Rin Sarmiento on 09-01-2023 pH (U) 7.0 [pH] 5.0-9.0 [facility] POCT Protime / INRon 024 INR Coag (PPP) [Relative time] 2.2 {INR} Abnormal 0.8 - 1.2 [facility] Interpretation and review of laboratory results Abnormal [facility] HbA1c HPLC (Bld) [Mass fract ion]on 08-20-2023 HbA1c (Bld) [Mass fraction] 5.7 % [facility] No Panel Informationon 08-19 Bedside Glucose 106 [facility] No Panel Informationon 08-04 Miscellaneous Test COMMENT . 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 This pattern may be characterized asrepresenting a severe selective glomerular nephropathyindicating increased glomerular permeability. Monoclonalprotein is not apparent.Performed at: [facility] [address] [id number] Director: Deshaun Hunter PhD, Phone: [phone] Activated partial thrombopla stin time (aPTT) in platelet poor plasma by coagulation aon 08-01-2023 aPTT Coag (PPP) [Time] 38.6 s 22.3-36.2 [facility] Atypical perinuclear antineu trophil cytoplasmic antibodies measurementon 08-01-2023 Neutrophil cytoplasmic Ab.perinuclear.atypica l IF (S) [Titer] <1:20 titer Neg:<1:20 [facility] Comment on above: The atypical pANCA p attern has been observed in asignificant percentage of patients with ulcerative colitis,primary sclerosing cholangitis and autoimmune hepatitis. Automated urine specific gra vity by refractometryon 08-01-2023 Specific gravity Refractometry automated (U) [Rel density] 1.020 1.005-1.02 5 [facility] Bilirubin Auto test strip (U ) [Mass/Vol]on 08-01-2023 Bilirubin (U) [Mass/Vol] Negative NEGATIVE [facility] Cefuroxime free [Mass/Vol]on 08-01-2023 Anti-Nuclear Antibody Profile Negative Negative [facility] Comment on above: Performed at: [facility] [address] [id number] Director: Deshaun Hunter PhD, Phone: [phone] Performed at: [facility] [address] [id number] Director: Deshaun Hunter PhD, Phone: [phone] Color Auto (U)on 08-01-2023 Color (U) LT. YELLOW YELLOW [facility] Erythrocyte distribution wid th Auto (RBC) [Ratio]on 08-01-2023 Erythrocyte distribution width (RBC) [Ratio] 13.1 % 11.0-15.0 [facility] Estimated glomerular filtrat ion rate (GFR) non- Americanon 08-01-2023 GFR/1.73 sq M.predicted among non-blacks MDRD (S/P/Bld) [Vol rate/Area] 27 mL/min/{1.73_m2} >=60 [facility] Globulin Calc (S) [Mass/Vol] on 08-01-2023 Globulin (S) [Mass/Vol] 3.3 g/dL [facility] Glomerular basement membrane Ab [Units/volume] in Serum by Immunoassayon 08-01-2023 Glomerular basement membrane Ab IA Qn (S) <0.2 units 0.0-0.9 [facility] Comment on above: Performed at: [facility] [address] [id number] Director: Jhon Roberts MD, Phone: [phone] at: [facility] [address] [id number] Director: Deshaun Hunter PhD, Phone: [phone] HBV surface Ag IA Qlon 07-31 Hepatitis B Surface Antigen Negative Negative [facility] Comment on above: Performed at: [facility] [address] [id number] Director: Deshaun Hunter PhD, Phone: [phone] Performed at: [facility] [address] [id number] Director: Deshaun Hunter PhD, Phone: [phone] Hematocrit Auto (Bld) [Volum e fraction]on 08-01-2023 Hematocrit (Bld) [Volume fraction] 27.0 % 36.0-48.0 [facility] Hemoglobin [Mass/volume] in Bloodon 08-01-2023 Hemoglobin (Bld) [Mass/Vol] 7.8 g/dL 12.0-16.0 [facility] INR in Platelet poor plasma by Coagulation assayon 08-01-2023 INR Coag (PPP) [Relative time] 2.43 {INR} [facility] Comment on above: DESIRED INR:2.0-3.0 CONDITIONS NOT LISTED BELOW2.5-3.5 FOR PROSTHETIC HEART VALVE REPLACEMENT2.5-3.5 RECURRENT THROMBOSIS Immunofixation for Urineon 0 08-01-2023 Interpretation Immunofixation (U) [Interp] Comment . [facility] Comment on above: No monoclonality det ected.Performed at: [facility] [address] [id number] Director: Deshaun Hunter PhD, Phone: [phone] Iron binding capacity [Mass/ volume] in Serum or Plasmaon 08-01-2023 Iron binding capacity [Mass/Vol] 270.0 ug/dL 250.0-450. 0 [facility] Iron saturation [Mass Fracti on] in Serum or Plasmaon 08-01-2023 Iron saturation [Mass fraction] 14.8 % [facility] Ketones Auto test strip (U) [Mass/Vol]on 08-01-2023 Ketones (U) [Mass/Vol] Negative NEGATIVE [facility] - Chemistry and C hemistry - challengeon 08-01-2023 Albumin [Mass/Vol] 2.7 g/dL 3.4-5.0 [facility] ALP [Catalytic activity/Vol] 50 U/L 46-116 [facility] ALT [Catalytic activity/Vol] 18 U/L 14-59 [facility] AST [Catalytic activity/Vol] 12 U/L 15-37 [facility] Bilirubin [Mass/Vol] 0.2 mg/dL 0.2-1.0 [facility] Calcium [Mass/Vol] 8.8 mg/dL 8.5-10.1 [facility] Chloride [Moles/Vol] 105 mmol/L 98-107 [facility] CO2 [Moles/Vol] 32.1 mmol/L 21.0-32.0 [facility] Cobalamin (Vitamin B12) [Mass/Vol] 603.0 pg/mL 193.0-986. 0 [facility] Creatinine [Mass/Vol] 1.80 mg/dL 0.55-1.02 [facility] Ferritin [Mass/Vol] 32.0 ng/mL 8.0-252.0 [facility] GFR/1.73 sq M.predicted MDRD (S/P/Bld) [Vol rate/Area] 33 mL/min/{1.73_m2} >=60 [facility] Glucose [Mass/Vol] 112 mg/dL 74-106 [facility] Iron [Mass/Vol] 40.0 ug/dL 50.0-170.0 [facility] Magnesium [Mass/Vol] 1.9 mg/dL 1.8-2.4 [facility] Potassium [Moles/Vol] 4.3 mmol/L 3.5-5.1 [facility] Protein [Mass/Vol] 6.0 g/dL 6.4-8.2 [facility] Sodium [Moles/Vol] 145 mmol/L 136-145 [facility] Urea nitrogen [Mass/Vol] 33.0 mg/dL 7.0-18.0 [facility] Urea nitrogen/Creatinine [Mass ratio] 18.3 mg/mg [facility] Laboratory - Urinalysison Protein (U) [Mass/Vol] 181.1 mg/dL <=11.[address] [facility] Leukocytes [#/volume] correc katy for nucleated erythrocytes in Blood by Automated counon 08-01-2023 WBC corrected for nucl RBC Auto (Bld) [#/Vol] 6.4 10 3/uL 4.0-11.0 [facility] MCH Auto (RBC) [Entitic mass ]on 08-01-2023 MCH (RBC) [Entitic mass] 29.2 pg 26.7-34.0 [facility] MCHC Auto (RBC) [Mass/Vol]on 08-01-2023 MCHC (RBC) [Mass/Vol] 28.9 g/dL 29.9-35.2 [facility] MCV Auto (RBC) [Entitic vol] on 08-01-2023 MCV (RBC) [Entitic vol] 101.1 fL 81.0-99.0 [facility] Myeloperoxidase Ab [Units/vo lume] in Serum by Immunoassayon 08-01-2023 Myeloperoxidase Ab IA Qn (S) <0.2 units 0.0-0.9 [facility] No Panel Informationon 07-31 25-Hydroxy Vitamin D Total 16.6 ng/mL [facility] Comment on above: <20 ng/mL Vit D defi cient20-<30 ng/mL Vit D -959 ng/mL Vit D sufficient>100 ng/mL Potential Toxicity Folate 13.00 ng/mL 8.60-58.90 [facility] Miscellaneous Test COMMENT . [facility] Comment on above: Test Ordered: [id number] Cryoglobulin, Ql, Serum, RflxCryoglobulin, Ql, Serum, Rflx Comment Reference Range: None detectedNone Detected at 72 hoursThis test was developed and its performance characteristicsdetermined by [employer]. It has not been cleared orapproved by the Food and Drug Administration.Performed at: [facility] [address] [id number] Director: Deshaun Hunter PhD, Phone: [phone] Parathyroid Hormone (Intact) 60 pg/mL [facility] Comment on above: Performed at: [facility] [employer] [facility] [address] [id number] Director: Deshaun Hunter PhD, Phone: [phone] Perinuclear ANCA (p-ANCA) Antibody <1:20 titer Neg:<1:20 [facility] Comment on above: The presence of posi tive fluorescence exhibiting P-ANCA orC-ANCA patterns alone is not specific for the diagnosis ofWegener's Granulomatosis (WG) or microscopic polyangiitis.Decisions about treatment should not be based solely onANCA IFA results. The [employer] Consensusrecommends follow up testing of positive sera with both IA-3 and MPO-ANCA enzyme immunoassays. As many as 5% serumsamples are positive only by EIA. Ref. AM J Clin [id number];111:507-513. Phosphorus Level 3.8 mg/dL 2.6-4.7 [facility] Urine Random Creatinine 27.68 mg/dL 20.00-300. 00 [facility] Platelet mean volume Auto (B ld) [Entitic vol]on 08-01-2023 Platelet mean volume (Bld) [Entitic vol] 10.5 fL 9.5-13.5 [facility] Platelets Auto (Bld) [#/Vol] on 08-01-2023 Platelets (Bld) [#/Vol] 227 10 3/uL 150-450 [facility] Protein Auto test strip (U) [Mass/Vol]on 08-01-2023 Protein (U) [Mass/Vol] 100 mg/dL NEG/TRACE Fi [facility] Proteinase 3 Ab [Units/volum e] in Serum by Immunoassayon 08-01-2023 Proteinase 3 Ab IA Qn (S) <0.2 units 0.0-0.9 [facility] Prothrombin time (PT)on 07-17 PT Coag (PPP) [Time] 24.5 s 9.0-11.6 [facility] RBC Auto (Bld) [#/Vol]on RBC (Bld) [#/Vol] 2.67 10 6/uL 4.20-5.40 [facility] Serum classic neutrophil cyt oplasmic antibody titer by immunofluorescenceon 08-01-2023 Neutrophil cytoplasmic Ab.classic IF (S) [Titer] <1:20 titer Neg:<1:20 [facility] Serum or plasma albumin/glob ulin mass ratioon 08-01-2023 Albumin/Globulin [Mass ratio] 0.8 {ratio} [facility] Serum or plasma anion gap de terminationon 08-01-2023 Anion gap [Moles/Vol] 12.2 mmol/L Fi [facility] Serum or plasma complement C 3 measurement (mass/volume)on 08-01-2023 Complement C3 [Mass/Vol] 140 mg/dL 82-167 [facility] Serum or plasma complement C 4 measurement (mass/volume)on 08-01-2023 Complement C4 [Mass/Vol] 30 mg/dL 12-38 [facility] Comment on above: Performed at: [facility] [employer] [address] [id number] Director: Deshaun Hunter PhD, Phone: [phone] Specific gravity Auto test s trip (U) [Rel density]on 08-01-2023 Specific gravity (U) [Rel density] CLEAR CLEAR [facility] Urine glucose measurement by test strip (mass/volume)on 08-01-2023 Glucose Test strip (U) [Mass/Vol] Negative NEGATIVE [facility] Urine hemoglobin detection b y automated test stripon 08-01-2023 Hemoglobin Auto test strip Ql (U) LARGE NEGATIVE [facility] Urine nitrite detection by a utomated test stripon 08-01-2023 Nitrite Auto test strip Ql (U) Negative NEGATIVE [facility] Urine protein/creatinine rat ioon 08-01-2023 Protein/Creatinine (U) [Ratio] 6.54 [facility] Urobilinogen Auto test strip (U) [Mass/Vol]on 08-01-2023 Urobilinogen Qn (U) 0.2 {Radha'U}/dL 0.2-1.0 [facility] pH Auto test strip (U)on pH (U) 7.0 [pH] 5.0-9.0 [facility] POCT EKGon 07-30-2023 [facility] POCT Protime / INRon 024 INR Coag (PPP) [Relative time] 2.3 {INR} Abnormal 0.8 - 1.2 [facility] Interpretation and review of laboratory results Abnormal [facility] POCT Protime / INRon 024 INR Coag (PPP) [Relative time] 2.2 {INR} Abnormal 0.8 - 1.2 [facility] Interpretation and review of laboratory results Abnormal [facility] POCT Protime / INRon 024 INR Coag (PPP) [Relative time] 1.4 {INR} Abnormal 0.8 - 1.2 [facility] Interpretation and review of laboratory results Abnormal [facility] POCT Protime / INRon 06-26-2 024 INR Coag (PPP) [Relative time] 1.8 {INR} Abnormal 0.8 - 1.2 [facility] Interpretation and review of laboratory results Abnormal [facility] POCT Protime / INRon 06-17- 024 INR Coag (PPP) [Relative time] 3.2 {INR} Abnormal 0.8 - 1.2 [facility] Interpretation and review of laboratory results Abnormal [facility] POCT Protime / INRon 06-10- 024 INR Coag (PPP) [Relative time] 2.3 {INR} Abnormal 0.8 - 1.2 [facility] Interpretation and review of laboratory results Abnormal [facility] POCT Protime / INRon 06-05- 024 INR Coag (PPP) [Relative time] 3.5 {INR} Abnormal 0.8 - 1.2 [facility] Interpretation and review of laboratory results Abnormal [facility] BASIC METABOLIC PANLon 06-02 Anion gap [Moles/Vol] 9 mmol/L Normal 5-15 [facility] Comment on above: Performed By: #### B SAE NICHOLS, THYR #### [facility] ([id number]) [address] [place] [address] Calcium [Mass/Vol] 9.0 mg/dL Normal 8.5-10.5 [facility] Comment on above: Performed By: #### B MAGDALENA LIVDeisy, THYR #### [facility] ([id number]) [address], [address] [place] [address] Chloride [Moles/Vol] 106 mmol/L Normal 98-109 [facility] Comment on above: Performed By: #### B MAGDALENA LIVR, THYR #### [facility] ([id number]) [address], [address] [place] [address] CO2 [Moles/Vol] 30 mmol/L Normal 22-32 [facility] Comment on above: Performed By: #### B MAGDALENA LIVR, THYR #### [facility] ([id number]) [address] [place] [address] Creatinine [Mass/Vol] 1.58 mg/dL High 0.40-1.00 [facility] Comment on above: Result Comment: METH OD TRACEABLE TO IDMS STANDARD Performed By: #### B MAGDALENA LIVDeisy THYR #### [facility] ([id number]) [address] [place] [address] GFR/1.73 sq M.predicted among non-blacks MDRD (S/P/Bld) [Vol rate/Area] 32 mL/min/{1.73_m2} Low >59 [facility] Comment on above: Result Comment: Reported eGFR is based on the CKD-EPI 2020 equation that does not use a race coefficient. Performed By: #### B MAGDALENA LIVR, THYR #### [facility] ([id number]) [address] [place] [address] Glucose [Mass/Vol] 125 mg/dL High 65-99 [facility] Comment on above: Performed By: #### B MAGDALENA LIVR, THYR #### [facility] ([id number]) [address] [place] [address] Potassium [Moles/Vol] 4.3 mmol/L Normal 3.5-5.0 [facility] Comment on above: Performed By: #### B MAGDALENA LIVR, THYR #### [facility] ([id number]) [address] [place] [address] Sodium [Moles/Vol] 145 mmol/L Normal 134-146 [facility] Comment on above: Performed By: #### B MAGDALENA LIVR, THYR #### [facility] ([id number]) [address] [place] [address] Urea nitrogen [Mass/Vol] 28 mg/dL High 5-27 [facility] Comment on above: Performed By: #### B MAGDALENA LIVDeisy, THYR #### [facility] ([id number]) [address] [place] [address] LIVER PANELon 06-02-2023 Albumin [Mass/Vol] 3.3 g/dL Normal 3.2-5.3 [facility] Comment on above: Performed By: #### B MAGDALENA LIVR, THYR #### [facility] ([id number]) [address], [address] [place] [address] ALP [Catalytic activity/Vol] 40 U/L Normal 39-130 [facility] Comment on above: Performed By: #### B MAGDALENA LIVDeisy, THYR #### [facility] ([id number]) [address], [address] [place] [address] ALT [Catalytic activity/Vol] 10 U/L Normal 0-31 [facility] Comment on above: Performed By: #### B MAGDALENA LIVR, THYR #### [facility] ([id number]) [address] [place] [address] AST [Catalytic activity/Vol] 10 U/L Normal 0-41 [facility] Comment on above: Performed By: #### B MAGDALENA LIVR, THYR #### [facility] ([id number]) [address], [address] [place] [address] Bilirubin [Mass/Vol] 0.2 mg/dL Low 0.3-1.2 [facility] Comment on above: Performed By: #### B MAGDALENA LIVR, THYR #### [facility] ([id number]) [address], [address] [place] [address] Bilirubin.direct [Mass/Vol] 0.0 mg/dL Normal 0.0-0.4 [facility] Comment on above: Performed By: #### B MP, LIVR, THYR #### [facility] ([id number]) [address] [place] [address] Protein [Mass/Vol] 5.6 g/dL Low 6.0-8.0 [facility] Comment on above: Performed By: #### B MP, LIVR, THYR #### [facility] ([id number]) [address] [place] [address] POCT Protime / INRon 024 INR Coag (PPP) [Relative time] 4.7 {INR} Abnormal 0.8 - 1.2 [facility] Interpretation and review of laboratory results Abnormal [facility] THYROID PROFILEon 06-02-2023 Free T4 [Mass/Vol] 0.96 ng/dL Normal 0.61-1.60 [facility] Comment on above: Performed By: #### B MP, LIVR, THYR #### [facility] ([id number]) [address], [address] [place] [address] TSH 7.63 uIU/mL High 0.49-4.67 [facility] Comment on above: Performed By: #### B MP, LIVR, THYR #### [facility] ([id number]) [address] [place] [address] POCT EKGOrdered By: Latia Garcia on 05-28-2023 [facility] POCT Protime / INRon 024 INR Coag (PPP) [Relative time] 3.3 {INR} Abnormal 0.8 - 1.2 [facility] Interpretation and review of laboratory results Abnormal [facility] POCT Protime / INRon 024 INR Coag (PPP) [Relative time] 4.6 {INR} Abnormal 0.8 - 1.2 [facility] Interpretation and review of laboratory results Abnormal [facility] A1C HEMOGLOBINon 02-19-2023 HbA1c (Bld) [Mass fraction] 5.8 % [facility] [employer] Other Glucose - FINGER STICKon Glucose [Mass/Vol] 174 mg/dL [employer] Other HbA1c (Bld) [Mass fraction]o n 02-19-2023 A1C HEMOGLOBIN [facility] [employer] Other PROF 14(COMP METB)on 023 Albumin [Mass/Vol] 2.9 g/dL Critically low 3.4-5.0 [facility] Comment on above: Performed By: #### C MP #### [facility] [address] [place] [address] Dr. Lamar Lin Albumin/Globulin [Mass ratio] 0.8 {ratio} Normal [facility] Comment on above: Performed By: #### C MP #### [facility] [address] [place] [address] Dr. Lamar Lin ALP [Catalytic activity/Vol] 70 U/L Normal 46-116 [facility] Comment on above: Performed By: #### C MP #### [facility] [address] [place] [address] Dr. Lamar Lin ALT [Catalytic activity/Vol] 14 U/L Normal 14-59 [facility] Comment on above: Performed By: #### C MP #### [facility] [address] [place] [address] Dr. Lamar Lin Anion gap [Moles/Vol] 10.5 mmol/L Normal [facility] Comment on above: Performed By: #### C MP #### [facility] [address] [place] [address] Dr. Lamar Lin AST [Catalytic activity/Vol] 10 U/L Critically low 15-37 [facility] Comment on above: Performed By: #### C MP #### [facility] [address] [place] [address] Dr. Lamar Lin Bilirubin [Mass/Vol] 0.2 mg/dL Normal 0.2-1.0 [facility] Comment on above: Performed By: #### C MP #### [facility] [address] [place] [address] Dr. Lamar Lin Calcium [Mass/Vol] 9.4 mg/dL Normal 8.5-10.1 [facility] Comment on above: Performed By: #### C MP #### [facility] [address] [address] [address] Lamar Lin Chloride [Moles/Vol] 104 mmol/L Normal 98-107 [facility] Comment on above: Performed By: #### C MP #### [facility] [address] [place] [address] Dr. Lamar Lin CO2 [Moles/Vol] 34.9 mmol/L Critically high 21.0-32.0 [facility] Comment on above: Performed By: #### C MP #### [facility] [address] [place] [address] Dr. Lamar Lin Creatinine [Mass/Vol] 0.96 mg/dL Normal 0.55-1.02 [facility] Comment on above: Performed By: #### C MP #### [facility] [address] [place] [address] Dr. Lamar Lin EGFR-AF TUVALUAN >60 Normal >=60 [facility] Comment on above: Performed By: #### C MP #### [facility] [address] [place] [address] Dr. Lamar Lin EGFR-NON AF TUVALUAN 56 mL/min/1.73m2 Critically low >=60 [facility] Comment on above: Performed By: #### C MP #### [facility] [address] [place] [address] Dr. Lamar Lin Globulin (S) [Mass/Vol] 3.7 g/dL Normal [facility] Comment on above: Performed By: #### C MP #### [facility] [address] [place] [address] Dr. Lamar Lin Glucose [Mass/Vol] 132 mg/dL Critically high 74-106 [facility] Comment on above: Performed By: #### C MP #### [facility] [address] [place], [place] [address] Dr. Lamar Lin Potassium [Moles/Vol] 4.4 mmol/L Normal 3.5-5.1 [facility] Comment on above: Performed By: #### C MP #### [facility] [address] [place], [place] [address] Dr. Lamar Lin Protein [Mass/Vol] 6.6 g/dL Normal 6.4-8.2 [facility] Comment on above: Performed By: #### C MP #### [facility] [address] [address] [address] Lamar Lin Sodium [Moles/Vol] 145 mmol/L Normal 136-145 [facility] Comment on above: Performed By: #### C MP #### [facility] [address] [address] [address] Lamar Lin Urea nitrogen [Mass/Vol] 28.0 mg/dL Critically high 7.0-18.0 [facility] Comment on above: Performed By: #### C MP #### [facility] [address] [id number] [address] Lamar Lin Urea nitrogen/Creatinine [Mass ratio] 29.2 mg/mg Normal [facility] Comment on above: Performed By: #### C MP #### [facility] [address] [address] [address] Lamar Lin A1C with Estimated Average G karintom 08-19-2022 HbA1c (Bld) [Mass fraction] 6.500 % High 4.3-5.6 % [employer] Other HbA1c (Bld) [Mass fraction] 140 mg/dL [employer] Other Comprehensive Metabolic Pane nahun 08-19-2022 Albumin [Mass/Vol] 3.011730 g/dL Normal 3.5-5.7 g/dL [employer] Other Albumin/Globulin [Mass ratio] 1.7 {ratio} [employer] Other ALP [Catalytic activity/Vol] 56 U/L Normal 34-104 U/L [employer] Other ALT [Catalytic activity/Vol] 14 U/L Normal 7-52 U/L [employer] Other AST [Catalytic activity/Vol] 15 U/L Normal 13-39 U/L [employer] Other Bilirubin [Mass/Vol] 0.5431364 mg/dL Low 0.3- 1.0 mg/dL [employer] Other Calcium [Mass/Vol] 9.0694036 mg/dL Normal 8.6-10 .3 mg/dL [employer] Other Chloride [Moles/Vol] 103 mmol/L Normal 98-107 mmol/L [employer] Other CO2 [Moles/Vol] 34.57886471 mmol/L High 21.0-3 1.0 mmol/L [employer] Other Creatinine [Mass/Vol] 0.23774283 mg/dL Normal 0. 60-1.20 mg/dL [employer] Other GFR/1.73 sq M.predicted MDRD (S/P/Bld) [Vol rate/Area] mL/min/{1.73_m2} [employer] Other Glucose [Mass/Vol] 156 mg/dL High 70-100 mg/dL [employer] Other Potassium [Moles/Vol] 4.76175703 mmol/L Normal 3 .5-5.1 mmol/L [employer] Other Protein [Mass/Vol] 5.894252 g/dL Low 6.4-8.9 g/dL [employer] Other Sodium [Moles/Vol] 144 mmol/L Normal 136-145 mmol/L [employer] Other Urea nitrogen [Mass/Vol] 24 mg/dL Normal 7-25 mg/dL [employer] Other Comprehensive Metabolic Panel 2.1 g/dL [employer] Other Glucose - FINGER STICKon Glucose [Mass/Vol] 205 mg/dL [employer] Other Lipid Panelon 08-19-2022 Cholesterol [Mass/Vol] 172 mg/dL Normal 140-2 00 mg/dL [employer] Other Cholesterol in HDL [Mass/Vol] 33 mg/dL Low 35-85 mg/dL [employer] Other Cholesterol in LDL Elph Qn 95 mg/dL Normal 0-100 mg/dL [employer] Other Cholesterol.total/Chol esterol in HDL [Mass ratio] 5.2 {ratio} <5.0 [employer] Other Lipid Panel 219 mg/dL High 0-149 mg/dL [employer] Other Lipid Panel 43 mg/dL [employer] Other [employer] Creat Ratio,Uon Albumin DL <= 20 mg/L (U) [Mass/Vol] mg/dL High 0.0-1.8 [employer] Other Albumin/Creatinine DL <= 20 mg/L (U) [Mass ratio] TNP 0.0-30.0 [employer] Other Creatinine (U) [Mass/Vol] 52.1901985 mg/dL [employer] Other Vitamin B12on 08-19-2022 Cobalamin (Vitamin B12) [Mass/Vol] 345 pg/mL Normal 180-914 pg/mL [employer] Other A1C HEMOGLOBINon 02-27-2022 HbA1c (Bld) [Mass fraction] 6.1 % [employer] Other Glucose - FINGER STICKon Glucose [Mass/Vol] 159 mg/dL [employer] Other HbA1c (Bld) [Mass fraction]o n 02-27-2022 A1C HEMOGLOBIN [employer] Other FREE T4on 10-30-2021 Free T4 [Mass/Vol] 1.11 ng/dL Normal 0.76-1.46 [facility] Comment on above: Performed By: #### F T4 #### [facility] [address] [address] [address] Lamar Lin T4on 10-30-2021 T4 [Mass/Vol] 8.30 ug/dL Normal 4.80-13.90 [facility] Comment on above: Performed By: #### T 4, TSH #### [facility] [address] [place] [address] Dr. Lamar Lin TSHon 10-30-2021 TSH 2.475 uIU/mL Normal 0.358-3.74 0 [facility] Comment on above: Performed By: #### T 4, TSH #### [facility] [address] [place] [address] Dr. Lamar Lin Glucoseon 05-23-2021 Glucose [Mass/Vol] 167 mg/dL [employer] Other Vital Signs Date Time Vital Sign Value Performing Clinician Facility 10-15-2023 13:42-0400 Body height 152.4 cm RADIATION THERAPY TECHNICIAN-C Anika Light Work Phone: [facility] 10-15-2023 13:42-0400 Body mass index (BMI) [Ratio] 38.7 kg/m2 RADIATION THERAPY TECHNICIAN-Thuy Light Work Phone: [facility] 10-15-2023 13:42-0400 Body temperature 97.6 [degF] RADIATION THERAPY TECHNICIAN-Thuy Light Work Phone: [facility] 10-15-2023 13:42-0400 Body weight 90.03 kg RADIATION THERAPY TECHNICIAN-Thuy Light Work Phone: [facility] 10-15-2023 13:42-0400 Diastolic blood pressure 70 mm[Hg] RADIATION THERAPY TECHNICIAN-C Anika Elaine Work Phone: [facility] 10-15-2023 13:42-0400 Heart rate 60 /min RADIATION THERAPY TECHNICIAN-C Anika Elaine Work Phone: [facility] 10-15-2023 13:42-0400 Inhaled oxygen flow rate 2 L/min RADIATION THERAPY TECHNICIAN-C Anika Elaine Work Phone: [facility] 10-15-2023 13:42-0400 Respiratory rate 18 /min RADIATION THERAPY TECHNICIAN-C Anika Elaine Work Phone: [facility] 10-15-2023 13:42-0400 SaO2% (BldA) [Mass fraction] 97 % RADIATION THERAPY TECHNICIAN-C Anika Elaine Work Phone: [facility] 10-15-2023 13:42-0400 Systolic blood pressure 143 mm[Hg] RADIATION THERAPY TECHNICIAN-C Anika Elaine Work Phone: [facility] 09-23-2023 09:37-0400 Body height 152.4 cm RADIATION THERAPY TECHNICIAN-C Anika Elaine Work Phone: [facility] 09-23-2023 09:37-0400 Body mass index (BMI) [Ratio] 38.5 kg/m2 RADIATION THERAPY TECHNICIAN-C Anika Elaine Work Phone: [facility] 09-23-2023 09:37-0400 Body temperature 97.9 [degF] RADIATION THERAPY TECHNICIAN-C Anika Elaine Work Phone: [facility] 09-23-2023 09:37-0400 Body weight 89.44 kg RADIATION THERAPY TECHNICIAN-C Anika Elaine Work Phone: [facility] 09-23-2023 09:37-0400 Diastolic blood pressure 72 mm[Hg] RADIATION THERAPY TECHNICIAN-C Anika Elaine Work Phone: [facility] 09-23-2023 09:37-0400 Heart rate 67 /min RADIATION THERAPY TECHNICIAN-C Ankia Elaine Work Phone: [facility] 09-23-2023 09:37-0400 Inhaled oxygen flow rate 2 L/min RADIATION THERAPY TECHNICIAN-C Anikasophy Marsmer Work Phone: [facility] 09-23-2023 09:37-0400 Respiratory rate 18 /min RADIATION THERAPY TECHNICIAN-C Anikasophy Marsmer Work Phone: [facility] 09-23-2023 09:37-0400 SaO2% (BldA) [Mass fraction] 97 % RADIATION THERAPY TECHNICIAN-C Anika Elaine Work Phone: [facility] 09-23-2023 09:37-0400 Systolic blood pressure 149 mm[Hg] RADIATION THERAPY TECHNICIAN-C Anika Elaine Work Phone: [facility] 09-09-2023 14:15-0400 Body height 152.4 cm RADIATION THERAPY TECHNICIAN-C Anikasophy Marsmer Work Phone: [facility] 09-09-2023 14:15-0400 Body mass index (BMI) [Ratio] 38.9 kg/m2 RADIATION THERAPY TECHNICIAN-C Anikasophy Marsmer Work Phone: [facility] 09-09-2023 14:15-0400 Body temperature 97.2 [degF] RADIATION THERAPY TECHNICIAN-C Anikasophy Marsmer Work Phone: [facility] 09-09-2023 14:15-0400 Body weight 90.49 kg RADIATION THERAPY TECHNICIAN-C Anika Marsmer Work Phone: [facility] 09-09-2023 14:15-0400 Diastolic blood pressure 77 mm[Hg] RADIATION THERAPY TECHNICIAN-C Anika Elaine Work Phone: [facility] 09-09-2023 14:15-0400 Heart rate 70 /min RADIATION THERAPY TECHNICIAN-C Ainka Elaine Work Phone: [facility] 09-09-2023 14:15-0400 Inhaled oxygen flow rate 2 L/min RADIATION THERAPY TECHNICIAN-C Anika Elaine Work Phone: [facility] 09-09-2023 14:15-0400 Respiratory rate 18 /min RADIATION THERAPY TECHNICIAN-C Anika Elaine Work Phone: [facility] 09-09-2023 14:15-0400 SaO2% (BldA) [Mass fraction] 97 % RADIATION THERAPY TECHNICIAN-C Anika Elaine Work Phone: [facility] 09-09-2023 14:15-0400 Systolic blood pressure 147 mm[Hg] RADIATION THERAPY TECHNICIAN-C Anika Elaine Work Phone: [facility] 09-01-2023 11:35-0400 Diastolic blood pressure 73 mm[Hg] RADIATION THERAPY TECHNICIAN-C Anika Elaine Work Phone: [facility] 09-01-2023 11:35-0400 Heart rate 62 /min RADIATION THERAPY TECHNICIAN-C Anika Elaine Work Phone: [facility] 09-01-2023 11:35-0400 Inhaled oxygen flow rate 2 L/min RADIATION THERAPY TECHNICIAN-C Anika Elaine Work Phone: [facility] 09-01-2023 11:35-0400 Respiratory rate 18 /min RADIATION THERAPY TECHNICIAN-C Anika Elaine Work Phone: [facility] 09-01-2023 11:35-0400 SaO2% (BldA) [Mass fraction] 96 % RADIATION THERAPY TECHNICIAN-C Anika Elaine Work Phone: [facility] 09-01-2023 11:35-0400 Systolic blood pressure 164 mm[Hg] RADIATION THERAPY TECHNICIAN-C Anika Elaine Work Phone: [facility] 09-01-2023 09:17-0400 Body height 152.4 cm RADIATION THERAPY TECHNICIAN-C Anika Elaine Work Phone: [facility] 09-01-2023 09:17-0400 Body weight 93.44 kg RADIATION THERAPY TECHNICIAN-C Anika Elaine Work Phone: [facility] 08-20-2023 10:20-0400 Body height 152.4 cm [facility] 08-20-2023 10:20-0400 Body mass index (BMI) [Ratio] 40.2 kg/m2 [facility] 08-20-2023 10:20-0400 Body weight 93.44 kg [facility] 08-20-2023 10:20-0400 Diastolic blood pressure 84 mm[Hg] [facility] 08-20-2023 10:20-0400 Heart rate 73 /min [facility] 08-20-2023 10:20-0400 Inhaled oxygen flow rate 2 L/min [facility] 08-20-2023 10:20-0400 Respiratory rate 18 /min [facility] 08-20-2023 10:20-0400 SaO2% (BldA) [Mass fraction] 94 % [facility] 08-20-2023 10:20-0400 Systolic blood pressure 176 mm[Hg] [facility] 08-13-2023 10:41-0400 Body height 152.4 cm [facility] 08-13-2023 10:41-0400 Body mass index (BMI) [Ratio] 40.1 kg/m2 [facility] 08-13-2023 10:41-0400 Body temperature 97.5 [degF] [facility] 08-13-2023 10:41-0400 Body weight 93.15 kg [facility] 08-13-2023 10:41-0400 Diastolic blood pressure 72 mm[Hg] [facility] 08-13-2023 10:41-0400 Heart rate 77 /min [facility] 08-13-2023 10:41-0400 Inhaled oxygen flow rate 2 L/min [facility] 08-13-2023 10:41-0400 Respiratory rate 20 /min [facility] 08-13-2023 10:41-0400 SaO2% (BldA) [Mass fraction] 95 % [facility] 08-13-2023 10:41-0400 Systolic blood pressure 162 mm[Hg] [facility] 07-30-2023 11:44-0400 Body height 165.1 cm Tr SOLORZANO Work Phone: [employer] 07-30-2023 11:44-0400 Body mass index (BMI) [Ratio] 34.28 kg/m2 Tr Jimenez APRN-JOSE Work Phone: [facility] 07-30-2023 11:44-0400 Body weight 93.44 kg Tr Tony OFFICE MACHINERY OR EQUIPMENT INSTALLER-ICING AND GLAZE MAKER Work Phone: [facility] 07-30-2023 11:44-0400 Diastolic blood pressure 80 mm[Hg] Tr Tony OFFICE MACHINERY OR EQUIPMENT INSTALLER-ICING AND GLAZE MAKER Work Phone: [facility] 07-30-2023 11:44-0400 Heart rate 59 /min Tr Tony OFFICE MACHINERY OR EQUIPMENT INSTALLER-ICING AND GLAZE MAKER Work Phone: [facility] 07-30-2023 11:44-0400 Systolic blood pressure 140 mm[Hg] Tr Tony OFFICE MACHINERY OR EQUIPMENT INSTALLER-ICING AND GLAZE MAKER Work Phone: [facility] 06-17-2023 12:41-0500 Body height 165.1 cm Iona Delarosa MD Work Phone: [facility] 06-17-2023 12:41-0500 Body mass index (BMI) [Ratio] 33.61 kg/m2 Iona Delarosa MD Work Phone: [facility] 06-17-2023 12:41-0500 Body weight 91.63 kg Iona Delarosa MD Work Phone: [facility] 06-17-2023 12:41-0500 Diastolic blood pressure 70 mm[Hg] Iona Delarosa MD Work Phone: [facility] 06-17-2023 12:41-0500 Heart rate 73 /min Iona Delarosa MD Work Phone: [facility] 06-17-2023 12:41-0500 SaO2% (BldA) [Mass fraction] 97 % Iona Delarosa MD Work Phone: [facility] 06-17-2023 12:41-0500 Systolic blood pressure 160 mm[Hg] Iona Delarosa MD Work Phone: [facility] [employer] [facility] 05-28-2023 12:35-0500 Body height 165.1 cm Tr Jimenez APRN-JOSE Work Phone: [employer] 05-28-2023 12:35-0500 Body mass index (BMI) [Ratio] 33.61 kg/m2 Tr Jimenez OFFICE MACHINERY OR EQUIPMENT INSTALLER-ICING AND GLAZE MAKER Work Phone: [employer] 05-28-2023 12:35-0500 Body weight 91.63 kg Tr Jimenez APRN-ICING AND GLAZE MAKER Work Phone: [employer] 05-28-2023 12:35-0500 Diastolic blood pressure 100 mm[Hg] Tr Jimenez OFFICE MACHINERY OR EQUIPMENT INSTALLER-ICING AND GLAZE MAKER Work Phone: [employer] 05-28-2023 12:35-0500 Heart rate 64 /min Tr Jimenez APRN-ICING AND GLAZE MAKER Work Phone: [employer] 05-28-2023 12:35-0500 SaO2% (BldA) [Mass fraction] 94 % Tr Jimenez APRN-ICING AND GLAZE MAKER Work Phone: [employer] 05-28-2023 12:35-0500 Systolic blood pressure 200 mm[Hg] Tr Jimenez APRN-ICING AND GLAZE MAKER Work Phone: [employer] 04-22-2023 10:20-0500 Body height 152.4 cm [employer] Other [facility] 04-22-2023 10:20-0500 Body mass index (BMI) [Ratio] 39.64 kg/m2 [employer] Other [facility] [employer] Other 04-22-2023 10:20-0500 Body weight 92.08 kg [employer] Other [facility] Other 04-22-2023 10:20-0500 Body weight 92.07 kg [facility] 04-22-2023 10:20-0500 Diastolic blood pressure 70 mm[Hg] [employer] Other [facility] 04-22-2023 10:20-0500 Respiratory rate 18 /min Rin Sarmiento Other [employer] Other 04-22-2023 10:20-0500 SaO2% (BldA) [Mass fraction] 97 % Rin Sarmiento Other [employer] Other 04-22-2023 10:20-0500 Systolic blood pressure 138 mm[Hg] Rin Sarmiento Other [facility] 02-19-2023 09:15-0400 Body height 152.4 cm Tondra Mapus Other [employer] Other 02-19-2023 09:15-0400 Body mass index (BMI) [Ratio] 40.21 kg/m2 Tondra Mapus Other [employer] Other 02-19-2023 09:15-0400 Body weight 93.4 kg Tondra Mapus Other [employer] Other 02-19-2023 09:15-0400 Diastolic blood pressure 64 mm[Hg] Tondra Mapus Other [employer] Other 02-19-2023 09:15-0400 Respiratory rate 18 /min Tondra Mapus Other [employer] Other 02-19-2023 09:15-0400 SaO2% (BldA) [Mass fraction] 95 % Tondra Mapus Other [employer] Other 02-19-2023 09:15-0400 Systolic blood pressure 129 mm[Hg] Tondra Mapus Other [employer] Other 02-12-2023 09:00-0400 Body height 152.4 cm Chester Lin Other [employer] Other 02-12-2023 09:00-0400 Body mass index (BMI) [Ratio] 40.07 kg/m2 Tondra Mullinsus Other [employer] Other 02-12-2023 09:00-0400 Body weight 93.08 kg Chester Lin Other [employer] Other 10-22-2022 10:00-0400 Body height 152.4 cm Rin [employer] Other [employer] Other 10-22-2022 10:00-0400 Body mass index (BMI) [Ratio] 40.23 kg/m2 [employer]ter [employer] Other [employer] Other 10-22-2022 10:00-0400 Body temperature 97.4 [degF] Aziz [employer] Other [employer] Other 10-22-2022 10:00-0400 Body weight 93.44 kg Aziz [employer] Other [employer] Other 10-22-2022 10:00-0400 Diastolic blood pressure 78 mm[Hg] Aziz [employer] Other [employer] Other 10-22-2022 10:00-0400 Respiratory rate 20 /min Aziz [employer] Other [employer] Other 10-22-2022 10:00-0400 SaO2% (BldA) [Mass fraction] 92 % Rin Sarmiento Other [employer] Other 10-22-2022 10:00-0400 Systolic blood pressure 146 mm[Hg] Rin Sarmiento Other [employer] Other 08-19-2022 10:15-0400 Body height 152.4 cm Tondra Mapus Other [employer] Other 08-19-2022 10:15-0400 Body mass index (BMI) [Ratio] 39.82 kg/m2 Tondra Mapus Other [employer] Other 08-19-2022 10:15-0400 Body weight 92.49 kg Tondra Mapus Other [employer] Other 08-19-2022 10:15-0400 Diastolic blood pressure 63 mm[Hg] Tondra Mapus Other [employer] Other 08-19-2022 10:15-0400 Respiratory rate 20 /min Tondra Mapus Other [employer] Other 08-19-2022 10:15-0400 SaO2% (BldA) [Mass fraction] 95 % Tondra Mapus Other [employer] Other 08-19-2022 10:15-0400 Systolic blood pressure 136 mm[Hg] Tondra Mapus Other [employer] Other 02-27-2022 10:15-0400 Body height 152.4 cm Tondra Mapus Other [employer] Other 02-27-2022 10:15-0400 Body mass index (BMI) [Ratio] 41.79 kg/m2 Tondra Mapus Other [employer] Other 02-27-2022 10:15-0400 Body weight 97.07 kg Tondra Mapus Other [employer] Other 02-27-2022 10:15-0400 Diastolic blood pressure 55 mm[Hg] Tondra Mapus Other [employer] Other 02-27-2022 10:15-0400 Respiratory rate 20 /min Tondra Mapus Other [employer] Other 02-27-2022 10:15-0400 SaO2% (BldA) [Mass fraction] 97 % Tondra Mapus Other [employer] Other 02-27-2022 10:15-0400 Systolic blood pressure 130 mm[Hg] Tondra Mapus Other [employer] Other 10-23-2021 11:00-0400 Body height 152.4 cm [employer] Other [employer] Other 10-23-2021 11:00-0400 Body mass index (BMI) [Ratio] 44.05 kg/m2 [employer] Other [employer] Other 10-23-2021 11:00-0400 Body temperature 97.5 [degF] [employer] Other [employer] Other 10-23-2021 11:00-0400 Body weight 102.33 kg [employer] Other [employer] Other 10-23-2021 11:00-0400 Diastolic blood pressure 72 mm[Hg] Rin Darbys Other [employer] Other 10-23-2021 11:00-0400 Respiratory rate 20 /min Rin Darbys Other [employer] Other 10-23-2021 11:00-0400 SaO2% (BldA) [Mass fraction] 94 % Rin Darbys Other [employer] Other 10-23-2021 11:00-0400 Systolic blood pressure 135 mm[Hg] Rin Darbys Other [employer] Other 05-23-2021 10:15-0500 Body height 152.4 cm Tondra Mapus Other [employer] Other 05-23-2021 10:15-0500 Body mass index (BMI) [Ratio] 43.25 kg/m2 Tondra Mapus Other [employer] Other 05-23-2021 10:15-0500 Body weight 100.47 kg Tondra Mapus Other [employer] Other 05-23-2021 10:15-0500 Diastolic blood pressure 57 mm[Hg] Tondra Mapus Other [employer] Other 05-23-2021 10:15-0500 Respiratory rate 20 /min Tondra Mapus Other [employer] Other 05-23-2021 10:15-0500 SaO2% (BldA) [Mass fraction] 96 % Chester Lin Other [facility] Other 05-23-2021 10:15-0500 Systolic blood pressure 131 mm[Hg] Chester Lin Other [facility] Other Encounters Encounter Date Encounter Type Care Provider Facility Start: 10-22-2023 End: 10-22-2023 ambulatory JOBST SERVICE [facility] Start: 10-15-2023 End: 10-15-2023 ambulatory RADIATION THERAPY TECHNICIAN-C Ankia Deepa Elaine Work Phone: [facility] Work Phone: Start: 10-15-2023 End: 10-15-2023 Patient encounter procedure RADIATION THERAPY TECHNICIAN-C Anikasophy Marsmer Work Phone: [facility] Physician [facility] Nephrology Work Phone: Start: 10-08-2023 End: 10-08-2023 ambulatory JOBST SERVICE [facility] Start: 10-07-2023 Non-patient / Non-visit RADIATION THERAPY TECHNICIAN-C P mellissa Elaine Work Phone: [facility] Physician [facility] Professional [employer] Work Phone: Start: 09-23-2023 End: 09-23-2023 ambulatory JOBST SERVICE [facility] Start: 09-23-2023 End: 09-23-2023 ambulatory RADIATION THERAPY TECHNICIAN-C Anika Deepa Elaine Work Phone: [facility] Work Phone: Start: 09-23-2023 End: 09-23-2023 Patient encounter procedure RADIATION THERAPY TECHNICIAN-C Anika Elaine Work Phone: [facility] Physician [facility] Nephrology Work Phone: Start: 09-16-2023 End: 09-16-2023 ambulatory JOBST SERVICE [facility] Start: 09-16-2023 Non-patient / Non-visit RADIATION THERAPY TECHNICIAN-C P mellissa Elaine Work Phone: [facility] Work Phone: Start: 09-11-2023 End: 09-11-2023 ambulatory LUCI GREEN Not Available Start: 09-09-2023 End: 09-09-2023 ambulatory RADIATION THERAPY TECHNICIAN-C Anika Deepa Elaine Work Phone: [facility] Work Phone: Start: 09-09-2023 End: 09-09-2023 Patient encounter procedure RADIATION THERAPY TECHNICIAN-C Anika Elaine Work Phone: [facility] Physician [facility] Nephrology Work Phone: Start: 09-01-2023 End: 09-01-2023 ambulatory Anika Light Facility:[facility] Start: 09-01-2023 End: 09-01-2023 Admission to same day surgery center RADIATION THERAPY TECHNICIAN-C Anika Elaine Work Phone: [facility] [place] Work Phone: Start: 09-01-2023 End: 09-01-2023 ambulatory RADIATION THERAPY TECHNICIAN-C Anika Light Work Phone: [facility] Work Phone: Start: 08-21-2023 End: 08-21-2023 Follow-up encounter [facility] Medication Therapy Management Comment on above: PAF (paroxysmal atri al fibrillation) ([facility]) (Primary Dx) Start: 08-21-2023 End: 08-21-2023 ambulatory JOBST SERVICE [facility] Start: 08-20-2023 End: 08-20-2023 ambulatory [facility] Work Phone: Start: 08-20-2023 End: 08-20-2023 Patient encounter procedure [facility] Work Phone: Start: 08-20-2023 End: 09-17-2023 ambulatory JOBST SERVICE [facility] Start: 08-13-2023 End: 08-13-2023 ambulatory [facility] Work Phone: Start: 08-13-2023 End: 08-13-2023 Patient encounter procedure [facility] Physician [facility] Nephrology Work Phone: Start: 08-05-2023 Non-patient / Non-visit [facility] Physician [facility] Professional [facility] Work Phone: Start: 08-01-2023 Non-patient / Non-visit [facility] Physician [facility] Work Phone: Start: 07-30-2023 End: 07-30-2023 Office outpatient visit 25 minutes Cole Krishnan MD Work Phone: [facility] Physicians Cardiology Comment on above: PAF (paroxysmal atri al fibrillation) ([facility]) (Primary Dx); Hyperlipidemia, unspecified hyperlipidemia type; Benign hypertensive heart disease without congestive heart failure Start: 07-30-2023 End: 07-30-2023 Follow-up encounter [facility] Medication Therapy Management Comment on above: PAF (paroxysmal atri al fibrillation) ([facility]) (Primary Dx) Start: 07-30-2023 End: 07-30-2023 ambulatory [facility] Start: 07-29-2023 Telephone encounter Enedelia garay [facility] Physicians Cardiology Start: 07-21-2023 Orders Only Alicia Galvan RN [facility] Physicians Pulmonary/Sleep Medicine Comment on above: Shortness of breath; Chronic obstructive pulmonary disease, unspecified COPD type ([facility]) Start: 07-18-2023 End: 07-18-2023 Follow-up encounter [facility] Medication Therapy Management Comment on above: PAF (paroxysmal atri al fibrillation) ([facility]) (Primary Dx) Start: 07-18-2023 End: 07-18-2023 ambulatory [facility] Start: 07-10-2023 End: 07-10-2023 Follow-up encounter [facility] 1 [facility] Medication Therapy Management Comment on above: PAF (paroxysmal atri al fibrillation) ([facility]) (Primary Dx) Start: 07-10-2023 End: 07-10-2023 ambulatory [facility] Start: 07-02-2023 End: 07-02-2023 ambulatory ANITA MCCOY [facility] Start: 06-26-2023 End: 06-26-2023 Follow-up encounter [facility] 1 [facility] Medication Therapy Management Comment on above: PAF (paroxysmal atri al fibrillation) ([facility]) (Primary Dx) Start: 06-26-2023 End: 06-26-2023 ambulatory [facility] Start: 06-20-2023 End: 07-18-2023 [facility] Start: 06-17-2023 End: 06-17-2023 Office outpatient visit 15 minutes Iona Delarosa MD Work Phone: [facility] Physicians Cardiology Comment on above: PAF (paroxysmal atri al fibrillation) ([facility]) (Primary Dx); Benign hypertensive heart disease without congestive heart failure; 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 ([facility]); Shortness of breath; COPD with acute exacerbation ([facility]) Start: 06-17-2023 End: 06-17-2023 Follow-up encounter [facility] 1 [facility] Medication Therapy Management Comment on above: PAF (paroxysmal atri al fibrillation) ([facility]) (Primary Dx) Start: 06-17-2023 End: 06-17-2023 ambulatory IONA DELAROSA [facility] Start: 06-16-2023 Telephone encounter Enedelia garay [facility] Cardiology Start: 06-10-2023 End: 06-10-2023 Follow-up encounter [facility] 1 [facility] Medication Therapy Management Comment on above: PAF (paroxysmal atri al fibrillation) ([facility]) (Primary Dx) Start: 06-10-2023 End: 06-10-2023 ambulatory [facility] Start: 06-09-2023 End: 06-09-2023 ambulatory Chester Lin Other [employer] Other Start: 06-09-2023 Telephone encounter Chester Lin [facility] Start: 06-05-2023 End: 06-05-2023 ambulatory LUCI Harris MARY CARMEN Not Available Start: 06-05-2023 End: 06-05-2023 Follow-up encounter [facility] Medication Therapy Management Comment on above: PAF (paroxysmal atri al fibrillation) ([facility]) (Primary Dx) Start: 06-05-2023 End: 06-05-2023 ambulatory [facility] Start: 06-03-2023 End: 06-03-2023 ambulatory Rin Sarmiento Other [employer] Other Start: 06-03-2023 Telephone encounter Rin Sarmiento [facility] Nephrology Start: 06-02-2023 End: 06-02-2023 Follow-up encounter [facility] Medication Therapy Management Comment on above: PAF (paroxysmal atri al fibrillation) ([facility]) (Primary Dx) Start: 06-02-2023 End: 06-02-[facility] Start: 05-28-2023 End: 05-28-2023 Office outpatient visit 25 minutes Tr Jimenez OFFICE MACHINERY OR 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 INSTALLER-ICING AND GLAZE MAKER Work Phone: [facility] Physicians Cardiology Comment on above: PAF (paroxysmal atri al fibrillation) ([facility]) (Primary Dx); Ventricular premature beats; Sinus pause; Benign hypertensive heart disease without congestive heart failure; 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 Start: 05-28-2023 End: 07-09-2023 ambulatory TR JIMENEZ [facility] Start: 05-27-2023 End: 05-27-2023 ambulatory Chester Lin Other [employer] Other Start: 05-27-2023 Telephone encounter El[facility] Start: 05-26-2023 End: 05-26-2023 Follow-up encounter [facility] Medication Therapy Management Comment on above: PAF (paroxysmal atri al fibrillation) ([facility]) (Primary Dx) Start: 05-26-2023 End: 05-26-2023 [facility] Start: 05-21-2023 End: 05-21-2023 Anticoagulant drug monitoring [facility] Medication Therapy Management Comment on above: PAF (paroxysmal atri al fibrillation) ([facility]) (Primary Dx) Start: 05-21-2023 End: 05-21-2023 ambulatory [facility] Start: 05-06-2023 End: 05-06-2023 ambulatory NAVA [facility] Start: 04-23-2023 End: 04-23-2023 ambulatory Aziz Bakhous Other [employer] Other Start: 04-23-2023 Telephone encounter Aziz Bakhous [facility] Start: 04-22-2023 End: 04-22-2023 ambulatory Aziz Bakhous Other [employer] Other Start: 04-22-2023 Office outpatient vi sit 25 minutes Aziz Bakhous [facility] Start: 04-22-2023 End: 04-22-2023 Patient encounter procedure [facility] Work Phone: Start: 04-21-2023 End: 04-21-2023 ambulatory Aziz Bakhous Other [employer] Other Start: 04-21-2023 Telephone encounter Aziz Bakhous [facility] Start: 02-19-2023 (DM) Diabetes Tondra Mapus [facility] Start: 02-19-2023 End: 02-20-2023 ambulatory PHYSICIAN NO FAMILY [employer] Other Start: 02-12-2023 End: 02-12-2023 ambulatory Tondra Mapus Other [employer] Other Start: 02-12-2023 Nursing evaluation o f patient and report Tondra Mapus [facility] Start: 01-24-2023 End: 01-24-2023 ambulatory Tondra Mapus Other [employer] Other Start: 01-24-2023 Telephone encounter Tondra Mapus [facility] Start: 10-30-2022 End: 10-30-2022 ambulatory Tondra Mapus Other [employer] Other Start: 10-30-2022 Telephone encounter Tondra Mapus [facility] Start: 10-22-2022 End: 10-22-2022 ambulatory Aziz Bakhous Other [employer] Other Start: 10-22-2022 Office outpatient vi sit 25 minutes Aziz Bakhous [facility] Start: 10-16-2022 ambulatory ANIKA MARSMER Facility: Start: 08-20-2022 End: 08-20-2022 ambulatory Tondra Mapus Other [employer] Other Start: 08-20-2022 Telephone encounter Tondra Mapus [facility] Start: 08-19-2022 (DM) Diabetes Tondra Mapus [facility] Start: 08-19-2022 End: 08-19-2022 ambulatory Tondra Mapus Other [employer] Other Start: 08-02-2022 End: 08-02-2022 ambulatory Tondra Mapus Other [employer] Other Start: 08-02-2022 Telephone encounter Tondra Mapus [facility] Start: 05-30-2022 End: 05-30-2022 ambulatory Tondra Mapus Other [employer] Other Start: 05-30-2022 Telephone encounter Tondra Mapus [facility] Start: 05-01-2022 End: 05-01-2022 ambulatory Tondra Mapus Other [employer] Other Start: 05-01-2022 Telephone encounter Tondra Mapus Jul[facility] Start: 04-01-2022 End: 04-01-2022 ambulatory Tondra Mapus Other [employer] Other Start: 04-01-2022 Telephone encounter Tondra Mapus [facility] Start: 02-27-2022 (DM) Diabetes Tondra Mapus [facility] Start: 02-27-2022 End: 02-27-2022 ambulatory Tondra Mapus Other [employer] Other Start: 01-28-2022 End: 01-28-2022 ambulatory Becca Michael Other [employer] Other Start: 01-28-2022 Telephone encounter Becca Michael [facility] Start: 01-09-2022 End: 01-09-2022 ambulatory Tondra Mapus Other [employer] Other Start: 01-09-2022 Telephone encounter Tondra Mapus [facility] Start: 12-31-2021 End: 12-31-2021 ambulatory Tondra Mapus Other [employer] Other Start: 12-31-2021 Telephone encounter Tondra Mapus [facility] Start: 12-17-2021 End: 12-17-2021 ambulatory Tondra Mapus Other [employer] Other Start: 12-17-2021 Telephone encounter Tondra Mapus [facility] Start: 11-25-2021 End: 11-25-2021 ambulatory Tondra Mapus Other [employer] Other Start: 11-25-2021 Telephone encounter Tondra Mapus [facility] Start: 11-02-2021 (FCCC INJ) FCCC Injection Marixa Fitt [facility] Start: 11-02-2021 End: 11-02-2021 ambulatory Marixa Fitt Other [employer] Other Start: 10-30-2021 End: 10-31-2021 ambulatory ANIKA ELAINE Facility:[facility] Start: 10-26-2021 End: 10-26-2021 ambulatory Tondra Mapus Other [employer] Other Start: 10-26-2021 Telephone encounter Tondra Mapus [facility] Start: 10-23-2021 End: 10-23-2021 ambulatory Aziz Bakhous Other [employer] Other Start: 10-23-2021 Office outpatient vi sit 15 minutes Aziz Bakhous [facility] Start: 10-22-2021 End: 10-22-2021 ambulatory Tondra Mapus Other [employer] Other Start: 10-22-2021 Telephone encounter Tondra Mapus Fir [facility] Start: 09-10-2021 End: 09-10-2021 ambulatory Tondra Mapus Other [employer] Other Start: 09-10-2021 Telephone encounter Tondra Mapus [facility] Start: 05-23-2021 (DM) Diabetes Chester Lin [facility] Start: 05-23-2021 End: 05-23-2021 ambulatory Chester Lin Other 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 Service Work [...] w/le ast 12 lds w/i&r Tr Jimenez OFFICE MACHINERY OR EQUIPMENT INSTALLER-ICING AND GLAZE MAKER Work Phone: Start: 05-26-2023 [employer] Work Phone: Start: 05-21-2023 [employer] Work Phone: Start: 05-09-2023 Adult depression scr eening assessment Pmh 1 Start: 02-14-2014 Colonoscopy Pmh 1 Plan of Treatment Date Care Activity Detail Author Start: 07-29-2024 Adult BMI Screening Adult BMI Screen ing [facility] Start: 07-29-2024 Tobacco Screening Tobacco Screening [facility] Start: 06-17-2024 Adult BMI Screening Adult BMI Screen ing [facility] Start: 06-17-2024 Tobacco Screening Tobacco Screening [facility] Start: 05-28-2024 Adult BMI Screening Adult BMI Screen ing [facility] Start: 05-28-2024 Tobacco Screening Tobacco Screening [facility] Start: 05-10-2024 Adult BMI Screening Adult BMI Screen ing [facility] Start: 05-09-2024 Depression Screening Depression Scre ening [facility] Start: 05-09-2024 Tobacco Screening Tobacco Screening [facility] Start: 01-18-2024 Influenza vaccination Influenza Vacc ine [facility] Start: 10-27-2023 End: 10-27-2023 Patient encounter procedure 10/27/2023 2:45 PM EDT [facility] [address] [place] [address] Anita Mccoy MD [address] [place] [address] [facility] Pulmonary[facility]Sleep Medicine Start: 09-16-2023 End: 09-16-2023 Follow-up encounter 09/16/2023 1:30 PM EDT Follow Up Anticoagulation [facility] Medication Therapy Management [address] [facility] [place] [address] [facility] Start: 09-01-2023 [facility] Start: 09-01-2023 CT guided biopsy [facility] Start: 09-01-[address] guided biopsy [facility] Start: 08-20-2023 End: 08-20-2023 Follow-up encounter 08/20/2023 11:00 AM EDT Follow Up Anticoagulation [facility] Medication Therapy Management [address] [place] [address] [facility] Start: 07-30-2023 End: 07-30-2023 Patient encounter procedure 07/30/2023 12:30 PM EDT Office Visit [facility] [address] [place] [address] Cole Krishnan MD [address] [place] [address] Tr Jimenez, OFFICE MACHINERY OR EQUIPMENT INSTALLER-ICING AND GLAZE MAKER [address] [place] [address] [facility] Start: 07-30-2023 End: 07-30-2023 Follow-up encounter 07/30/2023 11:30 AM EDT Follow Up Anticoagulation [facility] Medication Therapy Management [address] [facility] [address] [facility] Med[facility] Management Start: 07-18-2023 End: 07-18-2023 Follow-up encounter 07/18/2023 1:15 PM EST Follow Up Anticoagulation [facility] Medication Therapy Management [address] [address] [facility] Start: 07-10-2023 End: 07-10-2023 Follow-up encounter 07/10/2023 1:15 PM EST Follow Up Anticoagulation [facility] Medication Therapy Management [address] [place] [address] [facility] Start: 07-02-2023 End: 07-02-2023 Patient encounter procedure 07/02/2023 1:00 PM EST Appointment [facility] - Pulmonary Function [address] [place] [address] Anita Mccoy MD [address] [place] [address] [facility]monary Function Start: 06-20-2023 End: 06-20-2023 Follow-up encounter 06/20/2023 1:15 PM EST Follow Up Anticoagulation [facility] Medication Therapy Management [address] [facility] [address] [facility] Med[facility] Therapy Management Start: 06-17-2023 End: 06-17-2023 Patient encounter procedure 06/17/2023 1:00 PM EST Office Visit [facility] [address] [address] Iona Delarosa MD [address] [place] [address] [facility] Start: 06-17-2023 End: 06-17-2023 Follow-up encounter 06/17/2023 12:30 PM EST Follow Up Anticoagulation [facility] Medication Therapy Management [address] [address] [facility] Med[facility] Start: 06-10-2023 End: 06-10-2023 Follow-up encounter 06/10/2023 2:30 PM EST Follow Up Anticoagulation [facility] Medication Therapy Management [address] [place] [address] [facility] Start: 06-05-2023 End: 06-05-2023 Follow-up encounter 06/05/2023 11:45 AM EST Follow Up Anticoagulation [facility] Medication Therapy Management [address] [place] [address] [facility] Start: 06-04-2023 End: 05-28-2024 Basic metabolic 2000 panel - Serum or Plasma Basic Metabolic Panel Lab Routine Benign hypertensive heart disease without congestive heart failure Expected: 06/04/2023 (Approximate), Expires: 05/28/2024 [facility] Comment on above: Expected: 06/04/2023 (Approximate), Expires: 05/28/2024 Start: 06-02-2023 End: 06-02-2023 Follow-up encounter 06/02/2023 1:15 PM EST Follow Up Anticoagulation [facility] Medication Therapy Management [address] [place] [address] [address] [facility] Medication Therapy Management Start: 05-28-2023 End: 05-28-2024 Wireless Telemetry (In Office) [facility] [employer] Work Phone: Comment on above: Expected: 05/28/2023 , Expires: 05/28/2024 Start: 05-28-2023 End: 05-28-2023 Patient encounter procedure 05/28/2023 1:00 PM EST Office Visit [facility] [address] [address] Tr Jimenez, OFFICE MACHINERY OR EQUIPMENT INSTALLER-ICING AND GLAZE MAKER [address] [place] [id number] [facility] Start: 05-26-2023 End: 05-26-2023 Follow-up encounter 05/26/2023 1:45 PM EST Follow Up Anticoagulation [facility] Medication Therapy Management [address] [place] [address] [facility] Management Start: 02-14-2017 Screening for malign ant neoplasm of colon Colonoscopy [facility] [employer] [facility] Start: 2005 Fall Risk Screening Fall Risk Screen ing [facility] [employer] [facility] Start: 1990 Administration of varicella zoster vaccine Zoster (Shingles) Vaccine (1 of 2) [facility] Start: 1959 DTaP,Tdap and Td Vaccines (1 - Tdap) DTaP,Tdap and Td Vaccines (1 - Tdap) [facility] Start: 1958 Adult BMI Follow Up Plan Adult BMI F ollow Up Plan [facility] Start: 1940 Medicare Annual Well ness Visit Medicare Annual Wellness Visit [facility] aPTT in Platelet poo r plasma by Coagulation assay [facility] CT guided biopsy [facility] End: 05-28-2024 Hepatic function 2000 panel - Serum or Plasma Hepatic function panel Lab Routine 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 1 Occurrences starting 05/28/2023 until 05/28/2024 [facility] Comment on above: 1 Occurrences starti ng 05/28/2023 until 05/28/2024 Patient Education [facility] Work Phone: Renal function 1999 panel - Serum or Plasma [facility] Renal function 1999 panel - Serum or Plasma [facility] Renal function 1999 panel - Serum or Plasma [facility] End: 05-28-2024 Thyroid profile includes TSH FT4 Thyroid profile includes TSH FT4 Lab Routine alf current use of amiodarone 1 Occurrences starting 05/28/2023 until 05/28/2024 [facility] Comment on above: 1 Occurrences starti ng 05/28/2023 until 05/28/2024 [facility] Immunizations Immunization Date Immunization Notes Care Provider Fa cility 02-19-2023 Covid-19, Mrna, Lnp- s, Pf,anthony-sucrose,30 Mcg/0.3ml Fall23 Pmh 1 [facility] 02-19-2023 Influenza Vaccine, Quadrivalent, Adjuvanted Pmh 1 [facility] 02-19-2023 RSV, bivalent, prote in subunit RSVpreF, diluent reconstituted, 0.5 mL, PF Pmh 1 [facility] 02-19-2023 influenza virus vaccine, unspecified formulation Pmh 1 [facility] 03-11-2022 influenza virus vaccine, unspecified formulation Pmh 1 [facility] 05-12-2021 influenza virus vaccine, unspecified formulation Pmh 1 [facility] 03-12-2021 Influenza, High-dose , Quadrivalent Pmh 1 [facility] 08-04-2020 COVID-19 Vaccine Zoya - Documentation Purposes Only Chester Lin Other [facility] 02-09-2020 Influenza, High-dose , Quadrivalent Pmh 1 [facility] 02-01-2020 influenza virus vaccine, unspecified formulation Pmh 1 [facility] 01-21-2018 influenza, high dose seasonal, preservative-free Pmh 1 [facility] 06-19-2017 pneumococcal conjuga te vaccine, 13 valent Pmh 1 [facility] 03-19-2017 influenza virus vaccine, unspecified formulation Pmh 1 [facility] 03-19-2016 seasonal influenza, intradermal, preservative free Pmh 1 [facility] 02-06-2016 influenza, seasonal, injectable, preservative free Pmh 1 [facility] 03-31-2015 pneumococcal conjuga te vaccine, 13 valent Pmh 1 [facility] 03-28-2015 influenza, seasonal, injectable Chester Mullinsus Other [employer] Other 03-19-2015 pneumococcal polysaccharide vaccine, 23 valent Pmh 1 [facility] 02-14-2015 influenza, seasonal, injectable Pmh 1 [facility] 03-31-2014 influenza, seasonal, injectable Pmh 1 [facility] 03-04-2012 influenza virus vaccine, whole virus Pmh 1 [facility] 03-04-2011 influenza virus vaccine, whole virus Pmh 1 [facility] Payers Date Payer Category Payer Self-pay [id number] 2017 Unknown [id number] 2015 Medicare ANTH MEDICARE ANTHEM MEDICARE ADVANTAGE [id number] 2015-[facility] [phone] [address] [place] [address] [id number] 1959 Medicare [id number] [id number] 1940 Unknown [id number] 2.16.840.1.515722.3.579.2.593 1940 Unknown [id number] 2.16.840.1.623487.3.579.2.593 1940 Unknown [id number] 2.16.840.1.179472.3.579.2.125 9 1940 Unknown [id number] 2.16.840.1.278029.3.579.2.125 9 1940 Unknown [id number] 2.16.840.1.899590.3.579.2.128 6 1940 Unknown [id number] 2.16.840.1.320794.3.579.2.128 6 1940 Unknown [id number] 2.16.840.1.989472.3.579.2.128 6 1940 Unknown [id number] 2.16.840.1.365992.3.579.2.128 6 1940 Unknown [id number] 2.16.840.1.197091.3.579.2.128 6 1940 Unknown [id number] 2.16.840.1.901479.3.579.2.128 6 1940 Unknown [id number] 2.16.840.1.817743.3.579.2.128 6 1940 Unknown [id number] 2.16.840.1.176512.3.579.2.128 6 1940 Unknown [id number] 2.16.840.1.253258.3.579.2.128 6 1940 Unknown [id number] 2.16.840.1.553302.3.579.2.128 6 1940 Unknown [id number] 2.16.840.1.203026.3.579.2.128 6 1940 Unknown [id number] 2.16.840.1.526383.3.579.2.128 6 1940 Unknown [id number] 2.16.840.1.275355.3.579.2.128 6 1940 Unknown [id number] 2.16.840.1.128521.3.579.2.128 6 1940 Unknown [id number] 2.16.840.1.495919.3.579.2.128 6 1940 Unknown [id number] 2.16.840.1.546403.3.579.2.128 1940 Unknown [id number] 2.16.840.1.264689.3.579.2.128 6 1940 Unknown [id number] 2.16.840.1.897886.3.579.2.128 6 1940 Unknown [id number] 2.16.840.1.058184.3.579.2.128 1940 Unknown [id number] 2.16.840.1.746618.3.579.2.128 1940 Unknown [id number] 2.16.840.1.599372.3.579.2.128 1940 Unknown [id number] 2.16.840.1.326761.3.579.2.128 6 1940 Unknown [id number] 2.16.840.1.485691.3.579.2.128 6 Unknown Regular Auto/Liability [id number] Unknown [id number] 2.16.840.1.169401.3.579.2.531 Unknown [id number] 2.16.840.1.713802.3.579.2.531 Social History Date Type Detail Facility Unknown if ever smoked [facility] [employer] Other Start: 06-29-2020 End: 05-09-2023 Sex Assigned At [facility] [employer] Other Start: 03-11-2022 End: 09-23-2023 Tobacco smoking status NHIS Never smoked tobacco [facility] Start: 03-11-2022 Tobacco use and exposure Smokeless tobacco non-user [facility] Start: 05-09-2023 End: 07-30-2023 Alcohol intake Current non-drinker of alcohol (finding) [facility] Start: 06-29-2020 End: 05-09-2023 Alcohol intake [facility] tem How often to you hav e a drink containing alcohol? Never [facility] How many standard drinks containing alcohol do you have on a typical day? Patient does not drink [facility] Start: 1940 Sex Assigned At Not on file P [facility] Start: 1940 Sex Assigned At Female [facility] Medical Equipment Procedure Code Equipment Code Equipment Origin al Text Equipment Identifier Dates Start: 03-12-2017 Goals Date Patient Goal Desired Activity /State Personal health goal Comment on above: Formatting of this n ote might be different from the original. Evaluation of progress towards goal: return home self care with hsb support Clinical Notes 06-04-2020 to 08-21-2023 Alie Schumacher, [facility] - 08/21/2023 1:45 PM Jaime Schumacher [facility] - 08/21/2023 1:45 PM Ross Jimenez APRN-[facility] - 07/30/2023 12:30 PM Jaime Schumacher [facility] - 07/30/2023 11:30 AM EDT Note Date & Type Note Facility 08-21-2023 History of Presen t illness Narrative 15 minute bzcg-gi-[id number] follow-up anticoagulation appointment. INR performed in office [...] events: No Upcoming procedures: YES Kidney biopsy on 09/01/23; [facility] Dr. Sarmiento Patient thinks she needs to hold before and until 09/04. We will call to clarify. [facility] has not noted, therefore we will need clearance as well. Anticoagulant prescription needed: No Seen referring provider in the last year Duration of therapy reviewed Assessment: INR is remaining stable in therapeutic range on current warfarin regimen. Patient is unclear regarding warfarin needs surrounding her biopsy, therefore we will follow up with nephrology. [facility]PC has no notes of this, therefore if holding is needed, we will need clearance as well. Patient dx. Of Afib with CHADsVASc= 4 (age, sex, HTN) Plan: Patient instructed to continue warfarin 2.5 mg Sun/Tue/Thurs and 1.25 mg AOD. Check INR in 4 week(s); 2 weeks after procedure. Patient verbalizes understanding of anticoagulant dosing instructions and information discussed. Dosing regimen, counseling, and follow-up appointment were provided to the patient. Patient reminded to call with questions or any medication changes. Patient instructed to seek medical attention if any major bleeding/bleeding that persists or worsens. Alie Schumacher RPH 08/21/[address] Sarmiento office ([phone]; [facility]) to inquire about procedural needs. LM requesting return call to clarify holding needs for biopsy on 09/01/23. Pending holding needs, clearance to hold may be needed by [facility]. Patient dx: Afib with CHADsVASc=4. Bridging not recommended. Last saw RADIATION THERAPY TECHNICIAN Tony on 07/30/23. Alie Schumacher PharmD, BCPS August 21, 2023 1:49 PM Alie Schumacher RPH 08/21/23 1358 documented in this encounter [facility] 07-30-2023 History of Presen t illness Narrative Margie Martínez Date of visit: 07/30/2023 Date of : 1940 Age: 83 y.o. Patient Active Problem List Diagnosis COPD with acute exacerbation ([facility]) Bigeminy Benign hypertensive heart disease without congestive heart failure Obstructive sleep apnea syndrome Shortness of breath Abnormal result of cardiovascular function study Class 3 severe obesity in adult ([facility]) Ventricular premature beats 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 ([facility]) PAF (paroxysmal 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) ([facility]) Sinus pause Allergies Allergen Reactions Janeth [...] seen by EP service upon transfer to [facility] from [place] in April. There was reports of post-conversion pause approximately 6 seconds while at [place] though records were not obtainable for review. [...] kidney disease COPD (chronic obstructive pulmonary disease) ([facility]) DM type 2 (diabetes mellitus, type 2) ([facility]) HTN (hypertension) Hyperlipidemia 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 ([facility]) 09/03/2021 Hypothyroid KELECHI (obstructive sleep apnea) [...] Reorder IMPRESSIONS/PLAN 1. PAF (paroxysmal 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) ([facility]) - amiodarone (PACERONE) 200 mg tablet; Take [...] PCP: RASHAD MERCHANT Referring Physician: RASHAD Cabrera [address] [place] [address] RASHAD Duff 07/30/23 0319 documented in this encounter [facility] 07-30-2023 History of Presen t illness Narrative 15 minute hbfh-cg-ulkl follow-up anticoagulation appointment. INR performed in office [...] bleeding/bleeding that persists or worsens. Alie Schumacher Venkata 07/30/23 1153 documented in this encounter [facility] 07-29-2023 Miscellaneous Notes Called patient to remind them to bring their most current copy of their medication list with them to their appt. Patient verbalizes understanding. documented in this encounter [facility] 07-29-2023 Telephone encounter Note Called patient to remind them to bring their most current copy of their medication list with them to their appt. Patient verbalizes understanding. [facility] 07-21-2023 History of Presen t illness Narrative Albuterol refill sent to [facility] per pt request. documented in this encounter [facility] 07-18-2023 History of Presen t illness Narrative 15 minute abtc-js-nasz follow-up anticoagulation appointment. INR performed in office [...] bleeding/bleeding that persists or worsens. Alie Schumacher [facility] 07/18/23 1318 documented in this encounter [facility] 07-10-2023 History of Presen t illness Narrative 15 minute bepq-id-dwdu follow-up anticoagulation appointment. INR performed in office [...] then increase weekly dose to 2.5 mg Sun/Tue/Th and 1.25 mg AOD. Check INR in 1 week(s). Patient verbalizes understanding of anticoagulant dosing instructions and information discussed. Dosing regimen, counseling, and follow-up appointment were provided to the patient. Patient reminded to call with questions or any medication changes. Patient instructed to seek medical attention if any major bleeding/bleeding that persists or worsens. Alie Schumacher [facility] 07/10/23 1328 documented in this encounter [facility] 06-26-2023 History of Presen t illness Narrative 15 minute ylzn-js-txha follow-up anticoagulation appointment. INR performed in office [...] Patient instructed to continue warfarin 2.5 mg Sun/Thurs and 1.25 mg AOD. Check INR in 2 week(s). Patient verbalizes understanding of anticoagulant dosing instructions and information discussed. Dosing regimen, counseling, and follow-up appointment were provided to the patient. Patient reminded to call with questions or any medication changes. Patient instructed to seek medical attention if any major bleeding/bleeding that persists or worsens. Alie Schumacher [facility] 06/26/23 1315 documented in this encounter [facility] 06-17-2023 History of Presen t illness Narrative Margie M Mauricio Date of visit: 06/17/2023 Date of : 1940 Age: 82 y.o. Patient Active Problem List Diagnosis COPD with acute exacerbation ([facility]) Bigeminy Benign hypertensive heart disease without congestive heart failure Obstructive sleep apnea syndrome Shortness of breath Abnormal result of cardiovascular function study Class 3 severe obesity in adult ([facility]) Ventricular premature beats 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 ([facility]) PAF (paroxysmal 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) ([facility]) Sinus pause Allergies Allergen Reactions Janeth [...] monitor which she is going to wear ton1000memories. She is on long-term oxygen she is [...] kidney disease COPD (chronic obstructive pulmonary disease) ([facility]) DM type 2 (diabetes mellitus, type 2) ([facility]) HTN (hypertension) Hyperlipidemia 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 ([facility]) 09/03/2021 Hypothyroid KELECHI (obstructive sleep apnea) [...] MERCHANT Referring Physician: RASHAD Cabrera [address] [facility] [place] [address] documented in this encounter [employer] 06-17-2023 History of Presen t illness Narrative 15 minute khyk-hj-nkxg follow-up anticoagulation appointment. INR performed in office [...] RPH 06/17/23 1232 documented in this encounter [facility] 06-16-2023 Miscellaneous Notes Called patient to remind them to bring their most current copy of their medication list with them to their appt. Patient verbalizes understanding. documented in this encounter [facility] 06-16-2023 Telephone encounter Note Called patient to remind them to bring their most current copy of their medication list with them to their appt. Patient verbalizes understanding. [facility] 06-10-2023 History of Presen t illness Narrative 15 minute xjcr-kl-qwel follow-up anticoagulation appointment. INR performed in office [...] instructed to decrease to warfarin 2.5 mg Sun/Tue/Th and 1.25 mg AOD. Check INR in 1 week(s). Patient verbalizes understanding of anticoagulant dosing instructions and information discussed. Dosing regimen, counseling, and follow-up appointment were provided to the patient. Patient reminded to call with questions or any medication changes. Patient instructed to seek medical attention if any major bleeding/bleeding that persists or worsens. Alie Schumacher RPH 06/10/23 1428 [facility] History of Presen t illness Narrative 15 minute qhie-os-huuo follow-up anticoagulation appointment. INR performed in office [...] RPH 06/05/23 1132 documented in this encounter [employer] 06-03-2023 Evaluation note Encounter Date Diagnosis Assessment Notes May, Edema (ICD-10 - R60.9) [employer] Other 01-15-2024 History of Present illness Narrative* Alie Schumacher RP - 06/02/2023 1:15 PM EST 15 minute kbnq-dg-mjyx follow-up anticoagulation appointment. INR performed in office [...] bleeding/bleeding that persists or worsens. Alie Schumacher [facility] 06/02/23 1424 [facility] History of Present illness Narrative* Tr Jimenez, OFFICE MACHINERY OR EQUIPMENT INSTALLER-ICING AND GLAZE MAKER - 05/28/2023 1:00 PM EST Margie Martínez Date of visit: 05/28/2023 Date of : 1940 Age: 82 y.o. Patient Active Problem List Diagnosis COPD with acute exacerbation ([facility]) Bigeminy Benign hypertensive heart disease without congestive heart failure Obstructive sleep apnea syndrome Shortness of breath Abnormal result of cardiovascular function study Class 3 severe obesity in adult ([facility]) Ventricular premature beats 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 ([facility]) PAF (paroxysmal 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) ([facility]) Sinus pause Allergies Allergen Reactions Janeth [...] Units total) by mouth in the morning. [employer]az[employer] KUSUM 2 SENSOR kit USE DIRECTED CHANGE [...] states that she was hospitalized initially at [facility] for symptomatic 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. Upon resolution, she was discharged home though recurrent episodes warranted repeat visit. She was then seen at [facility] where she had episodes of conversion pauses reported. She was transferred then to [facility] evaluated by EP team. Patient was [...] kidney disease COPD (chronic obstructive pulmonary disease) ([facility]) DM type 2 (diabetes mellitus, type 2) ([facility]) HTN (hypertension) Hyperlipidemia 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 ([facility]) 09/03/2021 Hypothyroid KELECHI (obstructive sleep apnea) No [...] tablet IMPRESSIONS/PLAN 1. PAF (paroxysmal 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) ([facility]) - POCT EKG - Wireless Telemetry (In Office); Future 2. Ventricular premature beats - POCT EKG 3. Sinus pause - Wireless Telemetry (In Office); Future 4. Benign hypertensive heart disease without congestive heart failure - Basic Metabolic Panel; Future 5. 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 Patient verbalizes understanding. documented in [facility] encounter[facility] Telephone encounter Note* Telephone Encounter - Elza Schilling CMA - 05/27/2023 9:42 AM EST Called patient to remind them to bring their most current copy of their medication list with them to their appt. Patient verbalizes understanding. [facility] History of Present illness Narrative* Alie Schumacher [facility] - 05/26/2023 1:45 PM EST 15 minute slgb-uh-oscs follow-up anticoagulation appointment. INR performed in office [...] 7% (16.25 mg weekly). Patient is unableto belt picker new script until Friday, therefore instructed to [...] bleeding/bleeding that persists or worsens. Alie Schumacher [facility] 05/26/23 1409 documented in this encounter[facility] History of Present illness Narrative* Aylin Chahal, [facility] - 05/21/2023 11:30 AM EST 30 minute uixe-ut-zjrc follow-up anticoagulation appointment. INR performed in office [...] Chahal RPH 05/21/23 1143 documented [facility] Evaluation note* Encounter Date Diagnosis Assessment Notes Treatment Notes Treatment Clinical Notes Apr, Nephritis (ICD-10 - N05.9) [employer] Other 12-05-2023 Evaluation note* Encounter Date Diagnosis [...] check iron, folate and VB12 storage studies [employer] Other 12-04-2023 Evaluation note* Encounter Date Diagnosis Assessment Notes Treatment Notes Treatment Clinical Notes Apr, Edema (ICD-10 - R60.9) [employer] Other 10-04-2023 Evaluation note* Encounter Date Diagnosis Assessment Notes Treatment Notes Treatment Clinical Notes Feb, Dietary counseling and surveillance (ICD-10 - Z71.3) Maintaining a healthful weight material was printed see above Feb, Type 2 diabetes mellitus (ICD-10 - E11.9) Type 2 diabetes material was printed 1. Controlled, Type 2 diabetes with A1c 5.8%. 2. Blood glucose levels improved. According to [employer] 2 cgm download 02/06/2023- Avg glucose 116. [...] diabetes medication issues. 6. Prescriptions: RUSSELL PAP: Ellen; 2023 RUSSELL PAP Application provided to patient [...] hypertension material was printed on arb Feb, alf current use of insulin (ICD-10 - Z79.4) Feb, Vitamin B 12 deficiency (ICD-10 - E53.8) 09/08 b12 345 at target Feb, Albuminuria (ICD-10 - R80.9) Protein, urine material was printed Reviewed importance of glucose/bp control to prevent further nephropathy. Keep f/u with nephrology Feb, BMI 40.0-44.9, adult (ICD-10 - Z68.41) [employer] Other 09-27-2023 Evaluation note* Encounter Date Diagnosis [...] a computer on the screen. Pt contacted [employer] for reader replacement. Pt also brought in new reader. New reader set up with pt. Instructed pt to send old reader back to [employer]. 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 Will add aldactone On Bumex for volume management Avoid NSAIDs [employer] Other 04-03-2023 Evaluation note* Encounter Date Diagnosis [...] stable. According to kusum 2 cgm download 08/06/2022-08/19/2022 Avg glucose 129. [...] hypertension material was printed on arb Aug, alf current use of insulin (ICD-10 - Z79.4) Aug, Vitamin B 12 deficiency (ICD-10 - E53.8) 09/08 b12 345 at target Aug, Albuminuria (ICD-10 - R80.9) Protein, urine material was printed Reviewed importance of glucose/bp control to prevent further nephropathy. Keep f/u with nephrology Aug, BMI 39.0-39.9,adult (ICD-10 - Z68.39) 11 pound weight loss from last visit, continue with weight loss efforts [employer] Other 10-12-2022 Evaluation note* Encounter Date Diagnosis Assessment Notes Treatment Notes Treatment Clinical Notes Feb, Dietary counseling and surveillance (ICD-10 - Z71.3) Maintaining a healthful weight material was printed see above Feb, Type 2 diabetes mellitus (ICD-10 - E11.9) Type 2 diabetes material was printed 1. Controlled, Type 2 diabetes with A1c of 6.1% 2. Blood glucose levels stable. 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 (ICD-10 - Z79.4) [...] E11.649) Hypoglycemia material was printed see above [employer] Other 09-12-2022 Evaluation note* Encounter Date Diagnosis Assessment Notes Treatment Notes Treatment Clinical Notes Jan, Edema (ICD-10 - R60.9) [employer] Other 08-24-2022 Evaluation note* Encounter Date Diagnosis Assessment Notes Treatment Notes Treatment Clinical Notes Dec, Type 2 diabetes mellitus with diabetic chronic kidney disease (ICD-10 - E11.22) Dec, Type 2 diabetes mellitus (ICD-10 - E11.9) [employer] Other 06-17-2022 Evaluation note* Encounter Date Diagnosis Assessment Notes Treatment Notes Treatment Clinical Notes Oct, Vitamin B 12 deficiency (ICD-10 - E53.8) [employer] Other 06-07-2022 Evaluation note* Encounter Date Diagnosis [...] arthritis and sleep apnea has been addressed. [employer] Other 06-06-2022 Evaluation note* Encounter Date Diagnosis Assessment Notes Treatment Notes Treatment Clinical Notes Oct, Type 2 diabetes mellitus with diabetic chronic kidney disease (ICD-10 - E11.22) [employer] Other 04-25-2022 Evaluation note* Encounter Date Diagnosis Assessment Notes Treatment Notes Treatment Clinical Notes Aug, Type 2 diabetes mellitus with diabetic chronic kidney disease (ICD-10 - E11.22) [employer] Other 01-05-2022 Evaluation note* Encounter Date Diagnosis [...] was printed 10/2020 ldl 86 at goal 05 Cricket, 2022 HTN (hypertension) (ICD-10 - I10) About hypertension material was printed May, alf current use of insulin (ICD-10 - Z79.4) [...] E11.649) Hypoglycemia material was printed see above [employer] Other [id number] History general Narrative - Reported* Type Description [...] History SEE ABOVE Hospitalization History COPD 07/08 [employer] Other [employer]HelloFaxation noteNo InformationNortwooju Other evHelloFaxxrqgj note* Diagnosis PAF (paroxysmal 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) ([facility] Primary Atrial fibrillation documented in this encounter [employer] note* Diagnosis PAF (paroxysmal 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) ([facility] Primary Atrial fibrillation [facility] this encounter [facility]* Diagnosis PAF (paroxysmal 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) ([facility] Primary Atrial fibrillation Ventricular premature beats Other premature beats Sinus pause Benign hypertensive heart disease without congestive heart failure Benign hypertensive heart disease without heart 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 documented in this encounter [facility] [employer] note* Diagnosis PAF (paroxysmal 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) ([facility] Primary Atrial fibrillation documented in this encounter [facility] note* Diagnosis PAF (paroxysmal 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) ([facility] Primary Atrial fibrillation documented in this encounter [facility] CoffeeEvaluation [facility]* Diagnosis PAF (paroxysmal 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) ([facility] Primary Atrial fibrillation Benign hypertensive heart disease without congestive heart failure Benign hypertensive heart disease without heart failure 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 ([facility]) Shortness of breath COPD with acute exacerbation ([facility]) documented in this encounter [facility]* Diagnosis PAF (paroxysmal 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) ([facility] Primary Atrial fibrillation [facility] noteNo assessment information available [facility] Work Phone: Evaluation note* Diagnosis PAF (paroxysmal 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) ([facility] Primary Atrial fibrillation [facility]* Diagnosis Shortness of breath Chronic obstructive pulmonary disease, unspecified COPD type ([facility]) documented in this [facility]* Diagnosis PAF (paroxysmal 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) ([facility] Primary Atrial fibrillation Hyperlipidemia, unspecified hyperlipidemia type Benign hypertensive heart disease without congestive heart failure Benign hypertensive heart disease without heart failure documented [facility]* Diagnosis Onset Date Resolution Status Anemia acute BMI 50.0-59.9, adult acute Edema acute Hyperlipidemia acute [id number] acute Stage 3b chronic kidney disease (CKD) acute Type 2 diabetes mellitus wit h diabetic chronic kidney disease acute [facility] Work Phone: evalukeigr note* Diagnosis Onset Date Resolution Status Anemia acute BMI 50.0-59.9, adult acute Edema acute Hyperlipidemia acute [id number] acute Stage 3b chronic kidney disease (CKD) acute Type 2 diabetes mellitus wit h diabetic chronic kidney disease acute Diabetes acute Dietary counseling and surveillance acute HTN (hypertension) acute Hyperlipidemia acute Vitamin B 12 [facility] Work Phone: evaluation note* Diagnosis Onset Date Resolution Status Anemia acute BMI 50.0-59.9, adult acute Edema acute Hyperlipidemia acute [id number] acute Stage 3b chronic kidney disease (CKD) acute Type 2 diabetes mellitus wit h diabetic chronic kidney disease acute BMI 40.0-44.9, adult acute Diabetes acute Dietary counseling and surveillance acute HTN (hypertension) acute Hyperlipidemia acute [facility] B [facility] Work Phone: Evaluation note* Diagnosis Onset Date Resolution Status Anemia acute BMI 50.0-59.9, adult acute Edema acute Hyperlipidemia acute [id number] acute Stage 3b chronic kidney disease (CKD) acute Type 2 diabetes mellitus wit h diabetic chronic kidney disease acute BMI 40.0-44.9, adult acute Diabetes acute Dietary counseling and surveillance acute HTN (hypertension) acute Hyperlipidemia acute Vitamin B 12 deficiency acut e Anemia acute Edema acute Fibrillary glomerulonephritis acute Hyperparathyroidism acute [id number] acute Stage 3b chronic kidney disease (CKD) acute Type 2 diabetes mellitus wit h diabetic chronic kidney disease acute [facility] Work Phone: Evaluation note* Diagnosis Onset Date Resolution Status Anemia acute BMI 50.0-59.9, adult acute Edema acute Hyperlipidemia acute [id number] acute Stage 3b chronic kidney disease (CKD) acute Type 2 diabetes mellitus wit h diabetic chronic kidney disease acute BMI 40.0-44.9, adult acute Diabetes acute Dietary counseling and surveillance acute HTN (hypertension) acute Hyperlipidemia acute Vitamin B 12 deficiency acut e Anemia acute Edema acute Fibrillary glomerulonephritis acute Hyperparathyroidism acute [id number] acute Stage 3b chronic kidney disease (CKD) acute Type 2 diabetes mellitus wit h diabetic chronic kidney disease acute Anemia acute Edema acute Fibrillary glomerulonephritis acute Hyperparathyroidism acute [id number] acute Stage 3b chronic kidney disease (CKD) acute Type 2 diabetes mellitus wit h diabetic chronic kidney disease acute [facility] Work Phone: Evaluation note* Diagnosis Onset Date Resolution Status Anemia acute BMI 50.0-59.9, adult acute Edema acute Hyperlipidemia acute [id number] acute Stage 3b chronic kidney disease (CKD) acute Type 2 diabetes mellitus wit h diabetic chronic kidney disease acute BMI 40.0-44.9, adult acute Diabetes acute Dietary counseling and surveillance acute HTN (hypertension) acute Hyperlipidemia acute Vitamin B 12 deficiency acut e Anemia acute Edema acute Fibrillary glomerulonephritis acute Hyperparathyroidism acute [id number] acute Stage 3b chronic kidney disease (CKD) acute Type 2 diabetes mellitus wit h diabetic chronic kidney disease acute Anemia acute Edema acute Fibrillary glomerulonephritis acute Hyperparathyroidism acute [id number] acute Stage 3b chronic kidney disease (CKD) acute Type 2 diabetes mellitus wit h diabetic chronic kidney disease acute Anemia acute Edema acute Fibrillary glomerulonephritis acute Hyperparathyroidism acute [id number] acute Stage 3b chronic kidney disease (CKD) acute Type 2 diabetes mellitus wit h diabetic chronic kidney disease acute [facility] Work Phone: Hospital Discharge instructionsAmbulatory Orders* AMB POC INR Time Frame: 2 Months, Location: Determined By Patient [facility] Work Phone: InstructionsNot on filedocumented in this encounter [facility] [...] Advance Directives No September 16, 2017 11:13am Advance Directive Response Recorded Date/ Time Advance Directives No September 16, 2017 12:13pm Reason for Referral Specialty Diagnoses / Procedures Referred By Contac t Referred To Contact Diagnoses PAF (paroxysmal 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) ([facility]) Sinus pause Procedures Wireless Telemetry (In Office) Tr Jimenez, RADHA-ICING AND GLAZE MAKER [address] [id number] Referral ID Status Reason Start Date Expiration Date V isits Requested Visits Authorized [id number] Pending Review 05/28/2023 05/27/2024 1 1 Chief Complaint and Reason for Visit Chief Complaint Renal 6 Month Follow Up Chief Complaint RENAL 3 month Follow up Reason for Visit Anemia BMI 50.0-59.9, adult Edema Hyperlipidemia [id number] 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 Chief Complaint RENAL 3 month Follow up kusum reader Reason for Visit Anemia BMI 50.0-59.9, adult Edema Hyperlipidemia [id number] 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 Diabetes Dietary counseling and surveillance HTN (hypertension) Hyperlipidemia Vitamin B 12 deficiency Chief Complaint RENAL 3 month Follow up kusum reader N18.32 R60.9 D64.9 Z68.43 E78.5 E11.22 I12.9 Reason for Visit Anemia BMI 50.0-59.9, adult Edema Hyperlipidemia [id number] 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 BMI 40.0-44.9, adult Diabetes Dietary counseling and surveillance HTN (hypertension) Hyperlipidemia Vitamin B 12 deficiency Chief Complaint RENAL 3 month Follow up kusum reader N18.32 R60.9 D64.9 Z68.43 E78.5 E11.22 I12.9 RENAL F/U Reason for Visit Anemia BMI 50.0-59.9, adult Edema Hyperlipidemia [id number] 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 BMI 40.0-44.9, adult Diabetes Dietary counseling and surveillance HTN (hypertension) Hyperlipidemia Vitamin B 12 deficiency Anemia Edema Fibrillary glomerulonephritis Hyperparathyroidism [id number] 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 Chief Complaint RENAL 3 month Follow up kusum reader N18.32 R60.9 D64.9 Z68.43 E78.5 E11.22 I12.9 RENAL F/U 3 week f/u Reason for Visit Anemia BMI 50.0-59.9, adult Edema Hyperlipidemia [id number] 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 BMI 40.0-44.9, adult Diabetes Dietary counseling and surveillance HTN (hypertension) Hyperlipidemia Vitamin B 12 deficiency Anemia Edema Fibrillary glomerulonephritis Hyperparathyroidism [id number] 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 Anemia Edema Fibrillary glomerulonephritis Hyperparathyroidism [id number] 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 Chief Complaint RENAL 3 month Follow up kusum reader N18.32 R60.9 D64.9 Z68.43 E78.5 E11.22 I12.9 RENAL F/U 3 week f/u RENAL 2 MONTH F/U Reason for Visit Anemia BMI 50.0-59.9, adult Edema Hyperlipidemia [id number] 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 BMI 40.0-44.9, adult Diabetes Dietary counseling and surveillance HTN (hypertension) Hyperlipidemia Vitamin B 12 deficiency Anemia Edema Fibrillary glomerulonephritis Hyperparathyroidism [id number] 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 Anemia Edema Fibrillary glomerulonephritis Hyperparathyroidism [id number] 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 Anemia Edema Fibrillary glomerulonephritis Hyperparathyroidism [id number] 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 Additional Source Comments REASON FOR VISIT (unrecogniz ed section and content) Reason Comments Follow-up EST PT IP TTH ATRIAL FIB-PER SUELLEN SCHED W/PT Reason Comments Follow-up HOSP F/U 05/08-05/10 TTH-L/S MBE-LABS 05/10TTH-CHEST XRAY 05/09TT-ECHO 05/09TTH-SCHD APPT W/PT Reason Comments Follow-up EST PT 9 WEEK FU Med Refill Amiodarone and crest or INFORMATION SOURCE (unrecogn ized section and content) DATE CREATED AUTHOR 10/27/2022 [facility] DATE CREATED AUTHOR AUTHOR'S ORGANIZ ATION 09/08/2023 [facility] DATE CREATED AUTHOR AUTHOR'S ORGANIZ ATION 09/13/2023 [facility] EPIC DATE CREATED AUTHOR AUTHOR'S ORGANIZ ATION 10/23/2023 [facility] [facility] Teams (unrecognized sec tion and content) Team Status: Active Member Role Status Dates ALFREDO Jiang Primary Care Provider Active Team Status: Active Member Role Status Dates ALFREDO Jiang Primary Care Provider Active Start: August 01, 2023 Rin Sarmiento MD Attending Provider Active Star t: August 01, 2023 Team Status: Active Member Role Status Dates ALFREDO Jiang Primary Care Provider Active Start: August 05, 2023 Rin Sarmiento MD Attending Provider Active Star t: August 05, 2023 Team Status: Inactive Member Role Status Dates ALFREDO Jiang Primary Care Provider Active Start: August 13, 2023 End: August 13, 2023 Rin Sarmiento MD Attending Provider Active Star t: August 13, 2023 End: August 13, 2023 Hl7 Developer Relationship Specialty Start Date End Date Anika Light APRN-CNP [address] [facility], [facility] [place] [address] PCP - General Family Medicine 04/29/23 Hl7 Developer Relationship Specialty Start Date End Date Anika Light APRN-CNP [address] [facility] [place] [address] PCP - General Family Medicine 04/29/23 Hl7 Developer Relationship Specialty Start Date End Date Anika Light APRN-CNP [address] [facility] [place] [place] [address] PCP - General Family Medicine 04/29/23 Hl7 Developer Relationship Specialty Start Date End Date Anika Light OFFICE MACHINERY OR EQUIPMENT INSTALLER-ICING AND GLAZE [employer]KER [address] [facility], [place] [address] PCP - General Family Medicine 04/29/23 Hl7 Developer Relationship Specialty Start Date End Date Anika Light OFFICE MACHINERY OR EQUIPMENT INSTALLER[employer]ING AND [employer]ZE [employer] [address] [facility], [place] [address] PCP - General Family Medicine 04/29/23 Hl7 Developer Relationship Specialty Start Date End Date Anika Light OFFICE MACHINERY OR EQUIPMENT INSTALLER[employer]ING AND GLAZE [employer] [address] [facility], [place] [address] PCP - General Family Medicine 04/29/23 Hl7 Developer Relationship Specialty Start Date End Date Anika Light OFFICE MACHINERY OR EQUIPMENT INSTALLER[employer]ICING AND GLAZE [employer]KER [address] [facility], [place] [address] PCP - General Family Medicine 04/29/23 Team Status: Inactive Member Role Status Dates Rin Sarmiento MD Attending Provider Active Star t: April 22, 2023 End: April 22, 2023 Hl7 Developer Relationship Specialty Start Date End Date Anika Light OFFICE MACHINERY OR EQUIPMENT INSTALLER[employer]ZE [employer] [address] [facility], [place] [address] PCP - General Family Medicine 04/29/23 Hl7 Developer Relationship Specialty Start Date End Date Anika Light OFFICE MACHINERY OR EQUIPMENT INSTALLER[employer]ING AND G[employer]ZE [employer] [address] [facility], [place] [address] PCP - General Family Medicine 04/29/23 Team Status: Inactive Member Role Status Dates ALFREDO Jiang Primary Care Provider Active Start: August 20, 2023 End: August 20, 2023 Chester Lin APRN Attending Provider Active Start: August 20, 2023 End: August 20, 2023 Team Status: Inactive Member Role Status Dates Anika Light NP-C Primary Care Provider Active Start: September 01, 2023 End: September 01, 2023 Rin Sarmiento MD Attending Provider Active Star t: September 01, 2023 End: September 01, 2023 Team Status: Inactive Member Role Status Dates Anika Light NP-C Primary Care Provider Active Start: September 09, 2023 End: September 09, 2023 Rin Sarmiento MD Attending Provider Active Star t: September 09, 2023 End: September 09, 2023 Team Status: Active Member Role Status Dates Anika Light NP-C Primary Care Provider Active Start: September 16, 2023 Rin Sarmiento MD Attending Provider Active Star t: September 16, 2023 Team Status: Inactive Member Role Status Dates Anika Light NP-C Primary Care Provider Active Start: September 23, 2023 End: September 23, 2023 Rin Sarmiento MD Attending Provider Active Star t: September 23, 2023 End: September 23, 2023 Team Status: Active Member Role Status Dates Rin Sarmiento MD Attending Provider Active Star t: October 07, 2023 Anika Light NP-C Primary Care Provider Active Start: October 07, 2023 Team Status: Inactive Member Role Status Dates Anika Light NP-C Primary Care Provider Active Start: October 15, 2023 End: October 15, 2023 Rin Sarmiento MD Attending Provider Active Star t: October 15, 2023 End: October 15, 2023 Goals (unrecognized section and content) Goals may [...] BE BASED ON THE PRIMARY CLINICAL RECORDS. [facility] [employer] provides no warranty or guarantee of the accuracy or completeness of information in this document.
== END 2023-10-24 09:52 | disposition home or self-care (01) ==
LOC: RAD 09:51
PROVIDERS: PCP Nurse Practitioner Family; Visit Provider Nurse Practitioner Family
DX: M81.0 Age-related osteoporosis without current pathological fracture (principal); M85.80 Other specified disorders of bone density and structure, unspecified site
CPT/HCPCS: 77080

== ENCOUNTER 2023-10-30 10:28 | Outpatient (OUT) | payer MEDICARE, SELFPAY ==
[2023-10-30 10:52] LABS: Hemoglobin 8.3 g/dL (12.0-16.0); Mean Corpuscular HGB Conc 29.6 g/dL (29.9-35.2); Mean Corpuscular Hemoglobin 28.7 pg (26.7-34.0); Mean Corpuscular Volume 96.9 fL (81.0-99.0); Mean Platelet Volume 9.8 fL (9.5-13.5); Platelet Count 178 10^3/uL (150-450); Red Blood Count 2.89 10^6/uL (4.20-5.40); Red Cell Distribution Width 14.1 % (11.0-15.0); White Blood Count 4.6 10^3/uL (4.0-11.0)
[2023-10-30 11:13] LABS: Albumin Level 2.9 g/dL (3.4-5.0); Anion Gap 12.6; BUN Creatinine Ratio 17.1; Calcium 8.6 mg/dL (8.5-10.1); Carbon Dioxide 28.1 mmol/L (21.0-32.0); Chloride 107 mmol/L (98-107); Estimated GFR (African America 22 (>=60); Estimated GFR (Non-African Ame 18 (>=60); Glucose 100 mg/dL (74-106); Phosphorus 4.3 mg/dL (2.6-4.7); Potassium 5.7 mmol/L (3.5-5.1); Sodium 142 mmol/L (136-145)
[2023-10-31 12:10] LABS: PTH, Intact 73 pg/mL (15-65)
== END 2023-10-30 10:29 | disposition home or self-care (01) ==
LOC: LAB 10:29
PROVIDERS: PCP Nurse Practitioner Family; Visit Provider Internal Medicine Nephrology
DX: D64.9 Anemia, unspecified (principal); E21.3 Hyperparathyroidism, unspecified; N05.9 Unspecified nephritic syndrome with unspecified morphologic changes; N18.32 Chronic kidney disease, stage 3b; E11.22 Type 2 diabetes mellitus with diabetic chronic kidney disease; R60.9 Edema, unspecified
CPT/HCPCS: 36415; 80069; 83970; 85027

== ENCOUNTER 2023-11-13 10:13 | Outpatient (OUT) | payer MEDICARE, SELFPAY ==
--- OUTSIDE RECORDS SUMMARY | 2023-11-13 10:27 | XMS_ITS ---
Patient Summarization (C-CDA 2.1 CCD) Created on: November 13, 2023 Margie Martínez : 1940 Sex: Female Author Organization Sample organization Care Team Providers Care Word Processing Operator Name Role Phone Mapus, Tondra Unavailable Ashley Aziz Unavailable [employer] Marixa Unavailable Becca Rodriguez Unavailable ELAINE, ANIKA Primary Care Unavailable ELAINE, ANIKA Admitting Unavailable ELAINE, ANIKA Attending Unavailable ELAINE, ANIKA Consulting Unavailable ELAINE, ANIKA Primary Care Unavailable HEATHERSDOMINGOIZ Attending Unavailable RIN SARMIENTO Consulting Unavailable RIN SARMIENTO Admitting Unavailable Elaine SUPERVISOR SKI PRODUCTION-MAINFRAME PROGRAMMER, Anika S Primary Care Provider ALFREDO Henry Anika Deepa Primary Care Provider MD Rin Sarmiento Attending Provider Anika Henry Deepa Primary Care Unavailable HeathersRin Attending Unavailable HeathersDomingoiz Admitting Unavailable NO FAMILY, PHYSICIAN Primary Care Unavailable Mapus, Tondra K Attending Unavailable Mapus, Tondra K Admitting Unavailable LUCI GREEN Attending Unavailable LUCI [...] Primary Care Unavailable TR JIMENEZ Referring Unavailable ELANIE, ANIKA S Primary Care Unavailable SERVICE, JOBST [...] Facility (20 sources) Lisinopril Drug Allergy 04-22-20 [facility] (20 sources) Penicillins (Antibiotic) Propensity to adverse reactions [facility] [employer] Other (20 sources) Sulfonamides (Antibiotic) Propensity to adverse reactions [facility] [employer] Other (10 sources) Penicillins; Translations: [PENICILLINS] Drug allergy (disorder) 04-05-20 16 Hives [facility] Repository (1 source) Sulfonamides (Antibiotic) Drug allergy (disorder) 06-04-19 21 [facility] Repository (19 sources) Angiotensin-convert ing enzyme inhibitor agent; Translations: [JANETH INHIBITORS] Propensity to adverse reactions to drug 05-09-20 23 Other (See Comments) [facility] (19 sources) celecoxib; Translations: [CELECOXIB] Drug Allergy 05-09-20 23 Other (See Comments) [facility] (19 sources) Ibuprofen; Translations: [IBUPROFEN] Drug Allergy 05-09-20 23 GI Disturbance [facility] (18 sources) Penicillins Propensity to adverse reactions to drug 04-05-20 [facility] (19 sources) Sulfamethoxazole / Trimethoprim; Translations: [SULFAMETHOXAZOLE-T RIMETHOPRIM] Drug Allergy 06-27-19 [facility] (20 sources) Sulfonamides (Antibiotic); Translations: [SULFA (SULFONAMIDE ANTIBIOTICS)] Propensity to adverse reactions to drug 04-05-20 16 Hives [facility] (1 source) Lisinopril Drug Allergy 09-01-19 [facility] Repository (1 source) Penicillins Drug allergy (disorder) 09-01-19 [facility] Repository (1 source) Sulfonamides (Antibiotic) Drug allergy (disorder) 09-01-19 [facility] Repository Encounters Encounter Date Encounter Type Care Provider Facility Start: 11-05-2023 End: 11-05-2023 ambulatory ROASTERMAN-C Anika Henry Work Phone: [facility] Work Phone: Start: 11-05-2023 End: 11-05-2023 Patient encounter procedure ROASTERMAN-C Anika Henry Work Phone: [facility] Physician [facility] Work Phone: Start: 10-30-2023 Non-patient / Non-visit ROASTERMAN-C Vanesa Henry Work Phone: [facility] Work Phone: Start: 10-22-2023 End: 10-22-2023 ambulatory JOBST SERVICE [facility] Start: 10-15-2023 End: 10-15-2023 ambulatory ROASTERMAN-C Anika Henry Work Phone: [facility] Work Phone: Start: 10-15-2023 End: 10-15-2023 Patient encounter procedure ROASTERMAN-C Anika Henry Work Phone: [facility] Work Phone: Start: 10-08-2023 End: 10-08-2023 ambulatory JOBST [facility] Start: 10-07-2023 Non-patient / Non-visit ROASTERMAN-C P mellissa Elaine Work Phone: [facility] Work Phone: Start: 09-23-2023 End: 09-23-2023 ambulatory JOBST SERVICE [facility] Start: 09-23-2023 End: 09-23-2023 ambulatory ROASTERMAN-C Anika Deepa Elaine Work Phone: [facility] Work Phone: Start: 09-23-2023 End: 09-23-2023 Patient encounter procedure ROASTERMAN-C Anika Elaine Work Phone: [facility] Physician [facility] Work Phone: Start: 09-16-2023 End: 09-16-2023 ambulatory JOBST [facility] Start: 09-16-2023 Non-patient / Non-visit ROASTERMAN-C P mellissa Elaine Work Phone: [facility] Work Phone: Start: 09-11-2023 End: 09-11-2023 ambulatory LUCI GREEN Not Available Start: 09-09-2023 End: 09-09-2023 ambulatory ROASTERMAN-C Anika Deepa Elaine Work Phone: [facility] Work Phone: Start: 09-09-2023 End: 09-09-2023 Patient encounter procedure ROASTERMAN-C Anika Elaine Work Phone: [facility] Physician [facility] Work Phone: Start: 09-01-2023 End: 09-01-2023 ambulatory Anika Deepa Elaine Facility:[facility] Start: 09-01-2023 End: 09-01-2023 Admission to same day surgery center ROASTERMAN-C Anika Elaine Work Phone: [facility] [place] Work Phone: Start: 09-01-2023 End: 09-01-2023 ambulatory ROASTERMAN-C Anika Henry Work Phone: [facility] Work Phone: Start: 08-21-2023 End: 08-21-2023 Follow-up encounter [facility] Comment on above: PAF (paroxysmal atri al fibrillation) ([facility]) (Primary Dx) Start: 08-21-2023 End: 08-21-2023 [facility] Start: 08-20-2023 End: 08-20-2023 ambulatory [facility] Work Phone: Start: 08-20-2023 End: 08-20-2023 Patient encounter procedure [facility] Work Phone: Start: 08-20-2023 End: 09-17-2023 ambulatory [facility] Start: 08-13-2023 End: 08-13-2023 ambulatory [facility] Work Phone: Start: 08-13-2023 End: 08-13-2023 Patient encounter procedure [facility] Physician [facility] Work Phone: Start: 08-05-2023 Non-patient / Non-visit [facility] Physician [facility] Work Phone: Start: 08-01-2023 Non-patient / Non-visit [facility] Physician [facility] Work Phone: Start: 07-30-2023 End: 07-30-2023 Office outpatient visit 25 minutes Cole Krishnan MD Work Phone: [facility] Physicians Cardiology Comment on above: PAF (paroxysmal atri al fibrillation) ([facility]) (Primary Dx); Hyperlipidemia, unspecified hyperlipidemia type; Benign hypertensive heart disease without congestive heart failure Start: 07-30-2023 End: 07-30-2023 Follow-up encounter [facility] Comment on above: PAF (paroxysmal atri al fibrillation) ([facility]) (Primary Dx) Start: 07-30-2023 End: 07-30-2023 ambulatory TR Manoj LOVET [facility] Start: 07-29-2023 Telephone encounter Enedelia garay [facility] Cardiology Start: 07-21-2023 Orders Only Alicia Galvan RN [facility]icians Pulmonary/Sleep Medicine Comment on above: Shortness of breath; Chronic obstructive pulmonary disease, unspecified COPD type ([facility]) Start: 07-18-2023 End: 07-18-2023 Follow-up encounter [facility] Therapy Management Comment on above: PAF (paroxysmal atri al fibrillation) ([facility]) (Primary Dx) Start: 07-18-2023 End: 07-18-2023 ambulatory [facility] Start: 07-10-2023 End: 07-10-2023 Follow-up encounter [facility] Medication Therapy Management Comment on above: PAF (paroxysmal atri al fibrillation) ([facility]) (Primary Dx) Start: 07-10-2023 End: 07-10-2023 ambulatory [facility] Start: 07-02-2023 End: 07-02-2023 ambulatory ANITA MCCOY [facility] Start: 06-26-2023 End: 06-26-2023 Follow-up encounter [facility] Medication Therapy Management Comment on above: PAF (paroxysmal atri al fibrillation) ([facility]) (Primary Dx) Start: 06-26-2023 End: 06-26-2023 ambulatory [facility] Start: 06-20-2023 End: 07-18-2023 ambulatory [facility] Start: 06-17-2023 End: 06-17-2023 Office outpatient visit 15 minutes Iona Delarosa MD Work Phone: [facility] Physicians Cardiology Comment on above: PAF (paroxysmal atri al fibrillation) ([facility]) (Primary Dx); Benign hypertensive heart disease without congestive heart failure; 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 ([facility]); Shortness of breath; COPD with acute exacerbation ([facility]) Start: 06-17-2023 End: 06-17-2023 Follow-up encounter [facility] Med[facility] Therapy Management Comment on above: PAF (paroxysmal atri al fibrillation) ([facility]) (Primary Dx) Start: 06-17-2023 End: 06-17-2023 ambulatory IONA DELAROSA [facility] Start: 06-16-2023 Telephone encounter Enedelia garay [facility] Cardiology Start: 06-10-2023 End: 06-10-2023 Follow-up encounter [facility] Med[facility] Therapy Management Comment on above: PAF (paroxysmal atri al fibrillation) ([facility]) (Primary Dx) Start: 06-10-2023 End: 06-10-2023 ambulatory [facility] Start: 06-09-2023 End: 06-09-2023 ambulatory Chester Lin Other [employer] [facility] [employer] Other Start: 06-09-2023 Telephone encounter Chester Lin [facility] Start: 06-05-2023 End: 06-05-2023 ambulatory LUCI GREEN Not Available Start: 06-05-2023 End: 06-05-2023 Follow-up encounter [facility] Med[facility] Therapy Management Comment on above: PAF (paroxysmal atri al fibrillation) ([facility]) (Primary Dx) Start: 06-05-2023 End: 06-05-2023 [facility] Start: 06-03-2023 End: 06-03-2023 ambulatory Rin Sarmiento Other [employer] [facility] [employer] Other Start: 06-03-2023 Telephone encounter Rin [facility] Start: 06-02-2023 End: 06-02-2023 Follow-up encounter [facility] Med[facility] Therapy Management Comment on above: PAF (paroxysmal atri al fibrillation) ([facility]) (Primary Dx) Start: 06-02-2023 End: 06-02-2023 ambulatory ANIKA S ELAINE [facility] Start: 05-28-2023 End: 05-28-2023 Office outpatient visit 25 minutes Tr Jimenez SUPERVISOR SKI PRODUCTION-MAINFRAME PROGRAMMER Work Phone: [facility] Physicians Cardiology Comment on above: PAF (paroxysmal atri al fibrillation) ([facility]) (Primary Dx); Ventricular premature beats; Sinus pause; Benign hypertensive heart disease without congestive heart failure; 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 inspector current use of amiodarone Start: 05-28-2023 End: 07-09-2023 ambulatory TR JIMENEZ [facility] Start: 05-27-2023 End: 05-27-2023 ambulatory Tondra Mapus Other [employer] Other Start: 05-27-2023 Telephone encounter Elza Wol[facility] Start: 05-26-2023 End: 05-26-2023 Follow-up encounter [facility] Med[facility] Therapy Management Comment on above: PAF (paroxysmal atri al fibrillation) ([facility]) (Primary Dx) Start: 05-26-2023 End: 05-26-2023 ambulatory [facility] Start: 05-21-2023 End: 05-21-2023 Anticoagulant drug monitoring [facility] Medication Therapy Management Comment on above: PAF (paroxysmal atri al fibrillation) ([facility]) (Primary Dx) Start: 05-21-2023 End: 05-21-2023 [facility] Start: 05-06-2023 End: 05-06-2023 ambulatory NAVA SOLIMAN [facility] Start: 04-23-2023 End: 04-23-2023 ambulatory Aziz Bakhous Other [employer] Other Start: 04-23-2023 Telephone encounter Aziz Bakhous [facility] Start: 04-22-2023 End: 04-22-2023 ambulatory Aziz Bakhous Other [employer] Other Start: 04-22-2023 Office outpatient vi sit 25 minutes Aziz Bakhous [facility] Start: 04-22-2023 End: 04-22-2023 Patient encounter procedure [facility] Work Phone: Start: 04-21-2023 End: 04-21-2023 ambulatory Aziz Bakhous Other [employer] Other Start: 04-21-2023 Telephone encounter Aziz Bakhous [facility] Start: 02-19-2023 (DM) Diabetes Tondra Susannaus [facility] Start: 02-19-2023 End: 02-20-2023 ambulatory PHYSICIAN NO [employer] Other Start: 02-12-2023 End: 02-12-2023 ambulatory Tondra Mapus Other [employer] Other Start: 02-12-2023 Nursing evaluation o f patient and report Tondra Mapus [facility] Start: 01-24-2023 End: 01-24-2023 ambulatory Tondra Mapus Other [employer] Other Start: 01-24-2023 Telephone encounter Tondra Mapus [facility] Start: 10-30-2022 End: 10-30-2022 ambulatory Tondra Mapus Other [employer] Other Start: 10-30-2022 Telephone encounter Tondra Mapus [facility] Start: 10-22-2022 End: 10-22-2022 ambulatory Azwalter Darbys Other [employer] Other Start: 10-22-2022 Office outpatient vi sit 25 minutes Aziz Bakhous [facility] Start: 10-16-2022 ambulatory ANIKASOPHY MARSMER Facility: [facility] Start: 08-20-2022 End: 08-20-2022 ambulatory Tondra Mapus Other [employer] Other Start: 08-20-2022 Telephone encounter Tondra Mapus [facility] Start: 08-19-2022 (DM) Diabetes Tondra Mapus [facility] Start: 08-19-2022 End: 08-19-2022 ambulatory Tondra Mapus Other [employer] Other Start: 08-02-2022 End: 08-02-2022 ambulatory Tondra Mapus Other [employer] Other Start: 08-02-2022 Telephone encounter Tondra Mapus [facility] Start: 05-30-2022 End: 05-30-2022 ambulatory Tondra Mapus Other [employer] Other Start: 05-30-2022 Telephone encounter Tondra Mapus [facility] Start: 05-01-2022 End: 05-01-2022 ambulatory Tondra Mapus Other [employer] Other Start: 05-01-2022 Telephone encounter Tondra Mapus [facility] Start: 04-01-2022 End: 04-01-2022 ambulatory Tondra Mapus Other [employer] Other Start: 04-01-2022 Telephone encounter Tondra Mapus [facility] Start: 02-27-2022 (DM) Diabetes Tondra Mapus [facility] Start: 02-27-2022 End: 02-27-2022 ambulatory Tondra Mapus Other [employer] Other Start: 01-28-2022 End: 01-28-2022 ambulatory Becca Michael Other [employer] Other Start: 01-28-2022 Telephone encounter Becca Michael [facility] Start: 01-09-2022 End: 01-09-2022 ambulatory Tondra Mapus Other [employer] Other Start: 01-09-2022 Telephone encounter Tondra Mapus [facility] Start: 12-31-2021 End: 12-31-2021 ambulatory Tondra Mapus Other [employer] Other Start: 12-31-2021 Telephone encounter Tondra Mapus [facility] Start: 12-17-2021 End: 12-17-2021 ambulatory Tondra Mapus Other [employer] Other Start: 12-17-2021 Telephone encounter Tondra Mapus [facility] Start: 11-25-2021 End: 11-25-2021 ambulatory Tondra Mapus Other [employer] Other Start: 11-25-2021 Telephone encounter Tondra Mapus [facility] Start: 11-02-2021 (FCCC INJ) FCCC Injection Marixa Fitt [facility] Start: 11-02-2021 End: 11-02-2021 ambulatory Marixa Fitt Other [employer] Other Start: 10-30-2021 End: 10-31-2021 ambulatory ANIKA HENRY Facility:[facility] Start: 10-26-2021 End: 10-26-2021 ambulatory Tondra Mapus Other [employer] Other Start: 10-26-2021 Telephone encounter Tondra Mapus [facility] Start: 10-23-2021 End: 10-23-2021 ambulatory Azwalter Bakhous Other [employer] Other Start: 10-23-2021 Office outpatient vi sit 15 minutes Aziz Bakhous [facility] Start: 10-22-2021 End: 10-22-2021 ambulatory Tondra Mapus Other [employer] Other Start: 10-22-2021 Telephone encounter Tondra Mapus [facility] Start: 09-10-2021 End: 09-10-2021 ambulatory Tondra Mapus Other [employer] Other Start: 09-10-2021 Telephone encounter Tondra Mapus [facility] Start: 05-23-2021 (DM) Diabetes Tondra Mapus [facility] Start: 05-23-2021 End: 05-23-2021 ambulatory Tondra Mapus Other [employer] Other Medical Equipment Procedure Code Equipment Code Equipment Origin al Text Equipment Identifier Dates Start: 03-12-2017 Goals Date Patient Goal Desired Activity /State Personal health goal Comment on above: Formatting of this n ote might be different from the original. Evaluation of progress towards goal: return home self care with hsb support Immunizations Immunization Date Immunization Notes Care Provider Fa cility 02-19-2023 Covid-19, Mrna, Lnp- s, Pf,anthony-sucrose,30 Mcg/0.3ml Fall23 [facility] 02-19-2023 Influenza Vaccine, Quadrivalent, Adjuvanted [facility] 02-19-2023 RSV, bivalent, prote in subunit RSVpreF, diluent reconstituted, 0.5 mL, PF [facility] 02-19-2023 influenza virus vaccine, unspecified formulation [facility] 03-11-2022 influenza virus vaccine, unspecified formulation [facility] 1 [facility] 05-12-2021 influenza virus vaccine, unspecified formulation [facility] 1 [facility] 03-12-2021 Influenza, High-dose , Quadrivalent [facility] 1 [facility] 08-04-2020 COVID-19 Vaccine Zoya - Documentation Purposes Only Chester Lin Other [facility] 02-09-2020 Influenza, High-dose , Quadrivalent [facility] 1 [facility] 02-01-2020 influenza virus vaccine, unspecified formulation [facility] 1 [facility] 01-21-2018 influenza, high dose seasonal, preservative-free [facility] 1 [facility] 06-19-2017 pneumococcal conjuga te vaccine, 13 valent [facility] 1 [facility] 03-19-2017 influenza virus vaccine, unspecified formulation [facility] 1 [facility] 03-19-2016 seasonal influenza, intradermal, preservative free [facility] 1 [facility] 02-06-2016 influenza, seasonal, injectable, preservative free [facility] 1 [facility] 03-31-2015 pneumococcal conjuga te vaccine, 13 valent [facility] 1 [facility] 03-28-2015 influenza, seasonal, injectable Chester Mullinsus Other [employer] Other 03-19-2015 pneumococcal polysaccharide vaccine, 23 valent [facility] 1 [facility] 02-14-2015 influenza, seasonal, injectable [facility] 1 [facility] 03-31-2014 influenza, seasonal, injectable [facility] 1 [facility] 03-04-2012 influenza virus vaccine, whole virus [facility] 1 [facility] 03-04-2011 influenza virus vaccine, whole virus [facility] 1 [facility] Medications Current Medications Medication Drug Class(es) Dates Sig (Normalized) Sig (Original) [id number] 200 actuat albuterol 0.09 mg/actuat metered dose [...] Chronic obstructive pulmonary disease, unspecified COPD type ([facility]) Inhale 2 puffs every 6 (six) hours [...] mL nebulizer Indications: COPD with acute exacerbation ([facility]) Inhale 3 mL by nebulization every 4 [...] oral tablet (20 sources) Loop Diuretic Start: 11-05-2023 take 1 mg by mouth twice daily Bumetanide Active 1 MG PO Twice daily November 05, 2023 2:20pm Start: 05-28-2023 End: 11-05-2023 take 1 mg by mouth once Bumetanide Discontinued 1 MG PO Once August 13, 2023 12:00am November 05, 2023 2:25pm take 1 tablet by laura th every twelve hours Bumetanide 1 MG 1 TABLET Orally bid for 90 days Active take 1 tablet by laura th every twenty-four hours Bumetanide 1 MG 1 TABLET Orally every 24 hrs for 90 days Active take 1 tablet by laura th every twenty-four hours Bumetanide 1 MG 1 TABLET Orally Once a day for 90 day(s) Active calcitriol 0.75709 mg oral capsule (6 sources) Vitamin D3 Analog Start: 09-09-2023 End: [...] 0 Active ergocalciferol 0.05 mg oral tablet (10 sources) Provitamin D2 Compound Start: 024 take 2000 [IU] by mouth once daily [...] Indications: PAF (paroxysmal 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) (CMS-HCC) , [facility] current use of amiodarone Take 1 tablet [...] / HYDROcodone bitartrate 5 mg oral tablet (8 sources) Opioid Agonist Start: 12-10-2020 End: 08-20-2023 [...] 05/10/2023 05/28/2023 Discontinued (Therapy completed) Epoetin Ochoa-Epbx (4 sources) Start: 09-09-2023 End: 09-23-2023 Epoetin Ochoa-Epbx (Retacrit) 20,000 unit/2 mL solution Discontinued 28348 UNIT SUBCUT 3 Times a week 77.985 90 September 09, 2023 12:00am September 23, 2023 10:48am Start: 09-09-2023 Epoetin Ochoa-E pbx (Retacrit) 20,000 unit/2 mL solution Active 85815 UNIT SUBCUT 3 Times a week 77.985 90 September 09, 2023 12:00am ferrous sulfate 325 mg oral tablet (7 sources) Start: 08-13-2023 End: 09-01-2023 take 325 mg by mouth twice daily Ferrous Sulfate Discontinued 325 MG PO Twice daily 60 August 13, 2023 12:00am September 01, 2023 9:16am Flash Glucose Sensor (Freestyle Kusum 2 Sensor) kit (3 sources) Start: 09-11-2023 End: 10-15-2023 Flash Glucose [...] a day; Note: Source Status: Taking; Provider: Ashley Gar Start: 05-10-2023 End: 05-28-2023 take 0.5 [...] (20 sources) Aldosterone Antagonist Start: 10-22-2022 End: 11-05-2023 take 1 tablet by mouth once daily Spironolactone (Aldactone) 25 mg tablet Discontinued 25 MG PO Daily 90 90 September 23, 2023 9:52am November 05, 2023 2:20pm Start: 03-06-2017 take 1 tablet by laura th every twenty-four hours Spironolactone 50 MG 1 tablet Orally daily for 90 day(s) Feb, Active Super B Complex Maxi - (16 sources) Super B Complex Maxi - as directed Orally Not-Taking Super B Complex Maxi - as directed Orally Active Payers Date Payer Category Payer Self-pay [id number] 2017 Unknown [id number] 2015 Medicare ANTHEM MEDICARE ANTHEM MEDICARE ADVANTAGE [id number] 2015-Present [phone] [address] [place] [address] [id number] 1959 Medicare [id number] 1940 Unknown [id number] 1940 Unknown [id number] 1940 Unknown [id number] 9 1940 Unknown [id number] 9 1940 Unknown [id number] 6 1940 Unknown [id number] 6 1940 Unknown [id number] [id number] 6 1940 Unknown [id number] [id number] 6 1940 Unknown [id number] [id number] 6 1940 Unknown [id number] [id number] 6 1940 Unknown [id number] [id number] 6 1940 Unknown [id number] [id number] 6 1940 Unknown [id number] [id number] 6 1940 Unknown [id number] [id number] 6 1940 Unknown [id number] 2.16.840.1.255305.3.579.2.128 6 1940 Unknown [id number] 2.16.840.1.146430.3.579.2.128 6 1940 Unknown [id number] 2.16.840.1.266130.3.579.2.128 6 1940 Unknown [id number] 2.16.840.1.243874.3.579.2.128 6 1940 Unknown [id number] 2.16.840.1.414191.3.579.2.128 6 1940 Unknown [id number] 2.16.840.1.270540.3.579.2.128 6 1940 Unknown [id number] 2.16.840.1.327667.3.579.2.128 6 1940 Unknown [id number] 2.16.840.1.913073.3.579.2.128 6 1940 Unknown [id number] 2.16.840.1.026666.3.579.2.128 6 1940 Unknown [id number] 2.16.840.1.444245.3.579.2.128 6 1940 Unknown [id number] 2.16.840.1.433788.3.579.2.128 6 1940 Unknown [id number] 2.16.840.1.061646.3.579.2.128 6 1940 Unknown [id number] 2.16.840.1.822584.3.579.2.128 6 Unknown Regular Auto/Liability [id number] Unknown [id number] 2.16.840.1.086376.3.579.2.531 Unknown [id number] [id number] Plan of Treatment Date Care Activity Detail Author Start: 07-29-2024 Adult BMI Screening Adult BMI Screen ing [facility] Start: 07-29-2024 Tobacco Screening Tobacco Screening [facility] Start: 06-17-2024 Adult BMI Screening Adult BMI Screen ing [facility] Start: 06-17-2024 Tobacco Screening Tobacco Screening [facility] Start: 01-10-2025 Adult BMI Screening Adult BMI Screen ing [facility] Start: 05-28-2024 Tobacco Screening Tobacco Screening [facility] Start: 05-10-2024 Adult BMI Screening Adult BMI Screen ing [facility] Start: 05-09-2024 Depression Screening Depression Scre ening [facility] Start: 05-09-2024 Tobacco Screening Tobacco Screening [facility] Start: 01-18-2024 Influenza vaccination Influenza Vacc ine [facility] Start: 10-27-2023 End: 10-27-2023 Patient encounter procedure 10/27/2023 2:45 PM EDT Office Visit [facility] [address] [place] [phone] Anita Mccoy MD [address] [facility] [address] [place] [address] [facility] Start: 09-16-2023 End: 09-16-2023 Follow-up encounter 09/16/2023 1:30 PM EDT Follow Up Anticoagulation [facility] [address] [place] [address] [facility] Start: 09-01-2023 [facility] Start: 09-01-2023 CT guided biopsy [facility] Start: 09-01-[address] guided biopsy [facility] Start: 08-20-2023 End: 08-20-2023 Follow-up encounter 08/20/2023 11:00 AM EDT Follow Up Anticoagulation [facility] [address] [place] [address] [facility] Start: 07-30-2023 End: 07-30-2023 Patient encounter procedure 07/30/2023 12:30 PM EDT Office Visit [facility] [address] [place] [address] Cole Krishnan MD [address] [place] [phone] Tr Jimenez, RADHA-MAINFRAME PROGRAMMER [address] [place] [address] [facility] Start: 07-30-2023 End: 07-30-2023 Follow-up encounter 07/30/2023 11:30 AM EDT Follow Up Anticoagulation [facility] [address] [facility] [place] [id number] [facility] Start: 07-18-2023 End: 07-18-2023 Follow-up encounter 07/18/2023 1:15 PM EST Follow Up Anticoagulation [facility] [address] [facility] [place] [address] [facility] Start: 07-10-2023 End: 07-10-2023 Follow-up encounter 07/10/2023 1:15 PM EST Follow Up Anticoagulation [facility] [address] [facility] [place] [address] [facility] Start: 07-02-2023 End: 07-02-2023 Patient encounter procedure 07/02/2023 1:[address] [facility] - Pulmonary Function [address] [place] [address] Anita Mccoy MD [address] [id number] [place] [address] [facility] - Pulmonary Function Start: 06-20-2023 End: 06-20-2023 Follow-up encounter 06/20/2023 1:15 PM EST Follow Up Anticoagulation [facility] [address] [place] [id number] [facility] Start: 06-17-2023 End: 06-17-2023 Patient encounter procedure 06/17/2023 1:00 PM EST Office Visit [facility] [address] [place] [id number] Iona Delarosa MD [address] [facility] [place] [address] [facility] Start: 06-17-2023 End: 06-17-2023 Follow-up encounter 06/17/2023 12:30 PM EST Follow Up Anticoagulation [facility] [address] [place] [id number] [facility] Start: 06-10-2023 End: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 PROCRERAT, FLAKO, MG, PTH, PT, CBCNO, PTT, URMACRERAT, FE and TIBC #### [address] RBC (Bld) [#/Vol] 2.72 10*6/uL Low 3.60-5.[address] [facility] Comment on above: Performed By: #### V [id number], BHANU, RENAL, [id number], ADDONUAPLUS, PROCRERAT, FLAKO, MG, PTH, PT, CBCNO, PTT, URMACRERAT, FE and TIBC #### [address] WBC (Bld) [#/Vol] 4.7 10*3/uL Normal 3.8-11.6 [facility] Comment on above: Performed By: #### V [id number], BHANU, RENAL, [id number], ADDONUAPLUS, PROCRERAT, FLAKO, MG, PTH, PT, CBCNO, PTT, URMACRERAT, FE and TIBC #### [facility] [address] INR in Platelet poor plasma by Coagulation assayOrdered By: Rin Sarmiento on 09-01-2023 INR Coag (PPP) [Relative time] 1.0 {INR} [facility] Comment on above: INR Therapeutic Rang e [...] on 09-01-2023 Iron [Mass/Vol] 122 ug/dL 50-212 [facility] Iron and TIBC Profileon 08-17 % Iron Saturation 33.9 % Normal 20-[address] [facility] Comment on above: Performed By: #### V [id number], BHANU, RENAL, [id number], ADDONUAPLUS, PROCRERAT, FLAKO, MG, PTH, PT, CBCNO, PTT, URMACRERAT, FE and TIBC #### [facility] [address] [place] [address] Iron [Mass/Vol] 122 ug/dL Normal 50-212 [facility] Comment on above: Performed By: #### V [id number], BHANU, RENAL, [id number], ADDONUAPLUS, PROCRERAT, FLAKO, MG, PTH, PT, CBCNO, PTT, URMACRERAT, FE and TIBC #### [facility] [address] Total Iron Binding Capacity 360 ug/dL Normal 255-450 [facility] Comment on above: Performed By: #### V [id number], BHANU, RENAL, [id number], ADDONUAPLUS, PROCRERAT, FLAKO, MG, PTH, PT, CBCNO, PTT, URMACRERAT, FE and TIBC #### [facility] [address] [place] [id number] [facility] Transferrin [Mass/Vol] 257 mg/dL Normal 203-362 Th e [facility] Comment on above: Performed By: #### V [id number], BHANU, RENAL, [id number], ADDONUAPLUS, PROCRERAT, FLAKO, MG, PTH, PT, CBCNO, PTT, URMACRERAT, FE and TIBC #### [facility] [address] [place] [id number] [facility] Iron binding capacity [Mass/ volume] in Serum or PlasmaOrdered By: Rin Sarmiento on 09-01-2023 Iron binding capacity [Mass/Vol] 360 ug/dL 255-450 [facility] Iron saturation [Mass Fracti on] in Serum or PlasmaOrdered By: Rin Sarmiento on 09-01-2023 Iron saturation [Mass fraction] 33.9 % 20-50 [facility] Ketones Auto test strip (U) [Mass/Vol]Ordered By: iRn Sarmiento on 09-01-2023 Ketones (U) [Mass/Vol] Negative Negative Fi [facility] Nahun 09-01-2023 L Specimen: Received: 09/01/23 Status: MAIA Cohen Num: [id number] Spec Type: Surgical Subm Dr: Kj Urias Jr, Tissues: A Gross Only ([facility] BX) Procedures: Level 1 Gross Age/ Patient Sex Location Account Attending Physician Margie Martínez 83/F CT [id number] Rin Sarmiento MD SPEC NUM: [id number] RECD: 09/01/23 STATUS: SOUT REQ NUM: [id number] DEMAR: 09/01/[address]: Kj Urias Jr, DO ENTERED: 09/01/[address] [facility] [address]: SPEC TYPE: Surgical DEPT: S ORDERED: Level 1 Gross ORDERED: Level 1 Gross Supplemental Report Addendum 1 Entered: 09/03/23 Supplemental for findings of Consultation Report from [facility] in [facility]: DIAGNOSIS: -Fibrillary Glomerulopathy -Arterionephrosclerosis Note: -Please also see entire report on file for detailed description Addendum Signed (signature on file) Chris Lin MD 09/03/23 0933 Specimen: [id number] Received: 09/01/23 Status: MAIA Cohen Num: [id number] Spec Type: Surgical Subm Dr: Kj Urias Jr, Tissues: A Gross Only ([facility] BX) Procedures: Level 1 Gross Patient: Margie Martínez [id number] (Continued) Specimen: Received: 09/01/23 (Continued) Signed (signature on file) Chris Lin MD 09/03/23 0929 Specimen: Received: 09/01/23 Status: MAIA Noel Num: [id number] Spec Type: Surgical Subm Dr: Kj Urias Jr, DO Tissues: A Gross Only ([facility] KIDNEY BX) Procedures: Level 1 Gross Patient: Margie Martínez [id number] (Continued) Specimen: Received: 09/01/23 (Continued) Pathological Diagnosis Right kidney random core biopsy: -3 feldman-pink needle cores to be placed in special fixation solutions and to be forwarded to [facility] for final consultation interpretation. Gross only examination Gross Description In formalin labeled right kidney tissue are three feldman-pink needle cores ranging in size from 1.4 cm to 1.9 cm long x 0.1 cm average diameter. Submitted entirely in Lewis's solution and in 10% neutral buffered formalin. EVA/LUIGI Clinical history: ANGELINA, proteinuria, hypoalbuminemia CPT Codes 93777 Specimen: [id number] Received: 09/01/23 Status: MAIA Noel Num: [id number] Spec Type: Surgical Subm Dr: Kj Urias Jr, Tissues: A Gross Only ([facility] KIDNEY BX) Procedures: Level 1 Gross Patient: Margie Martínez [id number] (Continued) Signed (signature on file) Grover-Lloyd Lin MD 09/03/23 0929 Normal [facility] Laboratory - UrinalysisOrder ed By: Rin Sarmiento on 09-01-2023 Hyaline casts LM Ql (Urine sed) 0-8 [LPF] 0-8 [facility] Leukocytes [#/volume] correc katy for nucleated erythrocytes in Blood by Automated counOrdered By: Rin Sarmiento on 09-01-2023 WBC corrected for nucl RBC Auto (Bld) [#/Vol] 4.7 10*3/uL 3.8-11.6 [facility] MCH Auto (RBC) [Entitic mass ]Ordered By: Rin Sarmiento on 09-01-2023 MCH (RBC) [Entitic mass] 29.3 pg 24.7-34.3 [facility] MCHC Auto (RBC) [Mass/Vol]Or dered By: Rin Sarmiento on 09-01-2023 MCHC (RBC) [Mass/Vol] 31.9 g/dL 32.0-35.0 [facility] MCV Auto (RBC) [Entitic vol] Ordered By: Rin Sarmiento on 09-01-2023 MCV (RBC) [Entitic vol] 92.0 fL 80-100 [facility] Magnesiumon 09-01-2023 Magnesium [Mass/Vol] 1.9 mg/dL Normal 1.9-2.7 [facility] Comment on above: Performed By: #### V [id number], BHANU, RENAL, [id number], ADDONUAPLUS, PROCRERAT, FLAKO, MG, PTH, PT, CBCNO, PTT, URMACRERAT, FE and TIBC #### [facility] [address] Magnesium [Mass/volume] in S adriana or PlasmaOrdered By: Rin Sarmiento on 09-01-2023 Magnesium [Mass/Vol] 1.9 mg/dL 1.9-2.7 [facility] MicroAlb Creat Ratio,Uon Albumin DL <= 20 mg/L (U) [Mass/Vol] mg/dL High 0.0-1.8 [facility] Comment on above: Performed By: #### V [id number], BHANU, RENAL, [id number], ADDONUAPLUS, PROCRERAT, FLAKO, MG, PTH, PT, CBCNO, PTT, URMACRERAT, FE and TIBC #### [facility] [address] Creatinine, Urine (Random) 52.0 mg/dL Normal [facility] Comment on above: Result Comment: No r eference range established Performed By: #### V [id number], BHANU, RENAL, [id number], ADDONUAPLUS, PROCRERAT, FLAKO, MG, PTH, PT, CBCNO, PTT, URMACRERAT, FE and TIBC #### [facility] [address] Microalbumin/Creatinin e Ratio Not performed Normal 0.0-30.0 [facility] Comment on above: Performed By: #### V [id number], BHANU, RENAL, [id number], ADDONUAPLUS, PROCRERAT, FLAKO, MG, PTH, PT, CBCNO, PTT, URMACRERAT, FE and TIBC #### [facility] [address] Microalbumin [Mass/volume] i n UrineOrdered By: Rin Sramiento on 09-01-2023 Albumin DL <= 20 mg/L (U) [Mass/Vol] mg/dL 0.0-1.8 [facility] Nitrite Test strip Ql (U)Ord ered By: Rin Sarmiento on 09-01-2023 Nitrite Ql (U) Negative Negative [facility] No Panel InformationOrdered By: Rin Sarmiento on 09-01-2023 Estimated GFR (CKD-EPI) 24.043 mL/Min [facility] Creatinine Clearance (Chem 21.55 [facility] Parathyrin.intact [Mass/volu me] in Serum or PlasmaOrdered By: Rin Sarmiento on 09-01-2023 Parathyrin.intact [Mass/Vol] 188.2 pg/mL [facility] Parathyroid Hormone Intacton 09-01-2023 Parathyroid Hormone Intact 188.2 pg/mL High [facility] Comment on above: Result Comment: PERF ORMED BY: [address] [address] PATHOLOGIST [employer]ENT JEWELL ROWLEY M.D. Performed By: #### V [id number], BHANU, RENAL, [id number], ADDONUAPLUS, PROCRERAT, FLAKO, MG, PTH, PT, CBCNO, PTT, URMACRERAT, FE and TIBC #### [facility] [address] [place] [address] [facility] Partial Thromboplastin Timeo n 09-01-2023 aPTT Coag (Bld) [Time] 30.5 s Normal 25.1-36.5 Th e [facility] Comment on above: Result Comment: A he matocrit value greater than 55% may lead to inaccurate results in coagulation testing. Patients having hematocrit values >55% require a special collection tube for coagulation studies. Please contact the laboratory at [phone] for redraw instructions. PERFORMED BY: [address] [address] PATHOLOGIST [employer] SUPERINT[employer]ENT JEWELL ROWLEY M.D. Performed By: #### V [id number], BHANU, RENAL, [id number], ADDONUAPLUS, PROCRERAT, FLAKO, MG, PTH, PT, CBCNO, PTT, URMACRERAT, FE and TIBC #### [facility] [address] [place] [address] [facility] Phosphate [Mass/volume] in S adriana or PlasmaOrdered By: Rin Sarmiento on 09-01-2023 Phosphate [Mass/Vol] 4.2 mg/dL 2.5-4.5 [facility] Platelet mean volume Auto (B ld) [Entitic vol]Ordered By: Rin Sarmiento on 09-01-2023 Platelet mean volume (Bld) [Entitic vol] 8.1 fL 6.3-10.7 [facility] Platelets Auto (Bld) [#/Vol] Ordered By: Rin Sarmiento on 09-01-2023 Platelets (Bld) [#/Vol] 214 10*3/uL 150-450 [facility] Potassium [Moles/volume] in Serum or PlasmaOrdered By: Rin Sarmiento on 09-01-2023 Potassium [Moles/Vol] 4.7 mmol/L 3.5-5.1 [facility] Protein Auto test strip (U) [Mass/Vol]Ordered By: Rin Sarmiento on 09-01-2023 Protein (U) [Mass/Vol] 300 mg/dL Negative [facility] Protein Creat Ratio Ur Rando mon 09-01-2023 Protein (U) [Mass/Vol] 199 mg/dL High 0-9 Th e [facility] Comment on above: Performed By: #### V [id number], BHANU, RENAL, [id number], ADDONUAPLUS, PROCRERAT, FLAKO, MG, PTH, PT, CBCNO, PTT, URMACRERAT, FE and TIBC #### [facility] [address] Urine Protein/Creatinine Ratio 3827 mg/g{Cre} High 0-200 [facility] Comment on above: Performed By: #### V [id number], BHANU, RENAL, [id number], ADDONUAPLUS, PROCRERAT, FLAKO, MG, PTH, PT, CBCNO, PTT, URMACRERAT, FE and TIBC #### [facility] [address] Protein [Mass/volume] in Uri neOrdered By: Rin Sarmiento on 09-01-2023 Protein (U) [Mass/Vol] 199 mg/dL 0-9 [facility] Prothrombin Time INRon 08-31 INR Coag (PPP) [Relative time] 1.0 {INR} Normal [facility] Comment on above: Result [...] 3 - 4.5 Performed By: #### V [id number], BHANU, RENAL, [id number], ADDONUAPLUS, PROCRERAT, FLAKO, MG, PTH, PT, CBCNO, PTT, URMACRERAT, FE and TIBC #### [facility] [address] [place] [id number] [facility] PT Coag (PPP) [Time] 11.4 s Normal 9.0-12.9 [facility] Comment on above: Result Comment: A he matocrit value greater than 55% may lead to inaccurate results in coagulation testing. Patients having hematocrit values >55% require a special collection tube for coagulation studies. Please contact the laboratory at [phone] for redraw instructions. Performed By: #### V [id number], BHANU, RENAL, [id number], ADDONUAPLUS, PROCRERAT, FLAKO, MG, PTH, PT, CBCNO, PTT, URMACRERAT, FE and TIBC #### [facility] [address] [place] [id number] [facility] Prothrombin time (PT)Ordered By: Rin Sarmiento on 09-01-2023 PT Coag (PPP) [Time] 11.4 s 9.0-12.9 [facility] Comment on above: A hematocrit value g reater than 55% may lead to inaccurate results in coagulation testing. Patients having hematocrit values >55% require a special collection tube for coagulation studies. Please contact the laboratory at [phone] for redraw instructions. RBC Auto (Bld) [#/Vol]Ordere d By: Rin Sarmiento on 09-01-2023 RBC (Bld) [#/Vol] 2.72 10*6/uL 3.60-5.00 [facility] Renal Function Panelon 08-31 Albumin [Mass/Vol] 3.6 g/dL Normal 3.5-5.7 [facility] Comment on above: Performed By: #### V [id number], BHANU, RENAL, [id number], ADDONUAPLUS, PROCRERAT, FLAKO, MG, PTH, PT, CBCNO, PTT, URMACRERAT, FE and TIBC #### [address] Anion gap [Moles/Vol] 9.2 mmol/L Normal 6.0-15.0 [facility] Comment on above: Performed By: #### V [id number], BHANU, RENAL, [id number], ADDONUAPLUS, PROCRERAT, FLAKO, MG, PTH, PT, CBCNO, PTT, URMACRERAT, FE and TIBC #### [address] Calcium [Mass/Vol] 8.9 mg/dL Normal 8.6-10.3 [facility] Comment on above: Performed By: #### V [id number], BHANU, RENAL, [id number], ADDONUAPLUS, PROCRERAT, FLAKO, MG, PTH, PT, CBCNO, PTT, URMACRERAT, FE and TIBC #### [address] Chloride [Moles/Vol] 107 mmol/L Normal 98-107 [facility] Comment on above: Performed By: #### V [id number], BHANU, RENAL, [id number], ADDONUAPLUS, PROCRERAT, FLAKO, MG, PTH, PT, CBCNO, PTT, URMACRERAT, FE and TIBC #### [address] CO2 [Moles/Vol] 30.5 mmol/L Normal 21.0-31.0 [facility] Comment on above: Performed By: #### V [id number], BHANU, RENAL, [id number], ADDONUAPLUS, PROCRERAT, FLAKO, MG, PTH, PT, CBCNO, PTT, URMACRERAT, FE and TIBC #### [address] Creatinine [Mass/Vol] 2.02 mg/dL High 0.60-1.20 [facility] Comment on above: Performed By: #### V [id number], BHANU, RENAL, [id number], ADDONUAPLUS, PROCRERAT, FLAKO, MG, PTH, PT, CBCNO, PTT, URMACRERAT, FE and TIBC #### [facility] [address] [facility] 21.55 Normal [facility] Comment on above: Performed By: #### V [id number], BHANU, RENAL, [id number], ADDONUAPLUS, PROCRERAT, FLAKO, MG, PTH, PT, CBCNO, PTT, URMACRERAT, FE and TIBC #### [facility] [address] GFR/1.73 sq M.predicted MDRD (S/P/Bld) [Vol rate/Area] 24.043 mL/min/{1.73_m2} Normal [facility] Comment on above: Performed By: #### V [id number], BHANU, RENAL, [id number], ADDONUAPLUS, PROCRERAT, FLAKO, MG, PTH, PT, CBCNO, PTT, URMACRERAT, FE and TIBC #### [facility] [address] Glucose [Mass/Vol] 121 mg/dL High 70-100 [facility] Comment on above: Result Comment: [place] Glucose Reference Range is dependent on time and content of last meal. Glucose of more than 200 mg/dL in a nonstressed, ambulatory subject supports the diagnosis of Diabetes Mellitus. ADA recommended reference range Performed By: #### V [id number], BHANU, RENAL, [id number], ADDONUAPLUS, PROCRERAT, FLAKO, MG, PTH, PT, CBCNO, PTT, URMACRERAT, FE and TIBC #### [facility] [address] Phosphate [Mass/Vol] 4.2 mg/dL Normal 2.5-4.5 [facility] Comment on above: Performed By: #### V [id number], BHANU, RENAL, [id number], ADDONUAPLUS, PROCRERAT, FLAKO, MG, PTH, PT, CBCNO, PTT, URMACRERAT, FE and TIBC #### [facility] [address] Potassium [Moles/Vol] 4.7 mmol/L Normal 3.5-5.1 [facility] Comment on above: Performed By: #### V [id number], BHANU, RENAL, [id number], ADDONUAPLUS, PROCRERAT, FLAKO, MG, PTH, PT, CBCNO, PTT, URMACRERAT, FE and TIBC #### [facility] [address] Sodium [Moles/Vol] 142 mmol/L Normal 136-145 [facility] Comment on above: Performed By: #### V [id number], BHANU, RENAL, [id number], ADDONUAPLUS, PROCRERAT, FLAKO, MG, PTH, PT, CBCNO, PTT, URMACRERAT, FE and TIBC #### [address] Urea nitrogen [Mass/Vol] 32 mg/dL High 7-25 [facility] Comment on above: Performed By: #### V [id number], BHANU, RENAL, [id number], ADDONUAPLUS, PROCRERAT, FLAKO, MG, PTH, PT, CBCNO, PTT, URMACRERAT, FE and TIBC #### [address] Serum or plasma anion gap de terminationOrdered By: Rin Sarmiento on 09-01-2023 Anion gap [Moles/Vol] 9.2 mmol/L 6.0-15.0 [facility] Sodium [Moles/volume] in Ser um or PlasmaOrdered By: Rin Sarmiento on 09-01-2023 Sodium [Moles/Vol] 142 mmol/L 136-145 [facility] Sodium [Moles/volume] in Uri neOrdered By: Rin Sarmiento on 09-01-2023 Sodium (U) [Moles/Vol] 137 mmol/L [facility] Comment on above: No reference range e stablished Sodium, Urine (Random)on Sodium (U) [Moles/Vol] 137 mmol/L Normal Th e [facility] Comment on above: Result Comment: No r eference range established PERFORMED BY: [place] [address] PATHOLOGIST [employer] JEWELL ROWLEY M.D. Performed By: #### V [id number], BHANU, RENAL, [id number], ADDONUAPLUS, PROCRERAT, FLAKO, MG, PTH, PT, CBCNO, PTT, URMACRERAT, FE and TIBC #### [facility] [address] Specific gravity Auto test s trip (U) [Rel density]Ordered By: Rin Sarmiento on 09-01-2023 Specific gravity (U) [Rel density] 1.015 1.001-1.03 0 [facility] Squamous epithelial cells de tection in urine sediment by light microscopyOrdered By: Rin Sarmiento on 09-01-2023 Epithelial cells.squamous LM Ql (Urine sed) 0-1 [HPF] 0-2 [facility] Transferrin [Mass/volume] in Serum or PlasmaOrdered By: Rin Sarmiento on 09-01-2023 Transferrin [Mass/Vol] 257 mg/dL 203-362 [facility] Urea nitrogen [Mass/volume] in Serum or PlasmaOrdered By: Rin Sarmiento on 09-01-2023 Urea nitrogen [Mass/Vol] 32 mg/dL 7-25 [facility] Urine bacteria detection by automated methodOrdered By: Rin Sarmiento on 09-01-2023 Bacteria Auto Ql (U) None seen None Seen [facility] Urine clarity by refractomet ry automatedOrdered By: Rin Sarmiento on 09-01-2023 Clarity Refractometry automated (U) Cloudy Clear [facility] Urine glucose measurement by automated test strip (mass/volume)Ordered By: Rin Sarmiento on 09-01-2023 Glucose Auto test strip (U) [Mass/Vol] Normal mg/dL Normal [facility] Urine hemoglobin detection b y automated test stripOrdered By: Rin Sarmiento on 09-01-2023 Hemoglobin Auto test strip Ql (U) 1+ Negative [facility] Urine leukocyte esterase det ection by automated test stripOrdered By: Rin Sarmiento on 09-01-2023 Leukocyte esterase Auto test strip Ql (U) Negative Negative [facility] Urine microalbumin/creatinin e mass ratioOrdered By: Rin Sarmiento on 09-01-2023 Albumin/Creatinine DL <= 20 mg/L (U) [Mass ratio] TNP [facility] Comment on above: Test not performed Urine protein/creatinine rat ioOrdered By: Rin Sarmiento on 09-01-2023 Protein/Creatinine (U) [Ratio] 3827 mg/g{Cre} 0-200 [facility] Urobilinogen Auto test strip (U) [Mass/Vol]Ordered By: Rin Sarmiento on 09-01-2023 Urobilinogen (U) [Mass/Vol] Normal mg/dL Normal [facility] Vit. B12/Folate Profileon Cobalamin (Vitamin B12) [Mass/Vol] 862 pg/mL Normal 180-914 [facility] Comment on above: Performed By: #### V [id number], BHANU, RENAL, [id number], ADDONUAPLUS, PROCRERAT, FLAKO, MG, PTH, PT, CBCNO, PTT, URMACRERAT, FE and TIBC #### [facility] [address] Folate 16.5 ng/mL Normal >5.9 [facility] Comment on above: Result Comment: Arlen te reference range: >5.9 ng/ml The WHO technical consultation on folate and vitamin b12 deficiencies has determined that folate concentrations less than 4 ng/ml are considered deficient. Performed By: #### V [id number], BHANU, RENAL, [id number], ADDONUAPLUS, PROCRERAT, FLAKO, MG, PTH, PT, CBCNO, PTT, URMACRERAT, FE and TIBC #### [facility] [address] Vitamin B12 ser/plasOrdered By: Rin Sarmiento on 09-01-2023 Cobalamin (Vitamin B12) [Mass/Vol] 862 pg/mL 180-914 [facility] Vitamin D 25 Hydroxy Totalon 09-01-2023 Vitamin D 25 Hydroxy Total 18.3 ng/mL Low 30-100 [facility] Comment on above: Result Comment: YULY MIN D STATUS 25([place])VITAMIN D RANGE (ng/mL) Deficient <20 Insufficient 20 to <30 Sufficient 30 to 100 Reference: Rell Grijalva, Xochitl WILLIAMSON, et al. Evaluation,treatment, and prevention of vitamin D deficiency; an Endocrine Society clinical practice guideline. JCEM. 2010; 96(7):1911-30. PERFORMED BY: [place] [address] PATHOLOGIST [employer]ENT JEWELL ROWLEY M.D. Performed By: #### V [id number], BHANU, RENAL, [id number], ADDONUAPLUS, PROCRERAT, FLAKO, MG, PTH, PT, CBCNO, PTT, URMACRERAT, FE and TIBC #### [address] Vitamin D+Metabolites [Mass/ volume] in Serum or PlasmaOrdered By: Rin Sarmiento on 09-01-2023 Vitamin D+Metabolites [Mass/Vol] 18.3 ng/mL 30-100 [facility] Comment on above: VITAMIN D STATUS 25( [place])VITAMIN D RANGE (ng/mL) Deficient <20 Insufficient 20 to <30Sufficient 30 to 100Reference: Rell Grijalva, Xochitl WILLIAMSON, et al. Evaluation,treatment, and prevention of vitamin D deficiency; an Endocrine Society clinical practice guideline. JCEM. 2010; 96(7):1911-30. pH Auto test strip (U)Ordere d By: Rin Sarmiento on 09-01-2023 pH (U) 7.0 [pH] 5.0-9.0 [facility] POCT Protime / INRon 024 INR Coag (PPP) [Relative time] 2.2 {INR} Abnormal 0.8 - 1.2 [facility] Interpretation and review of laboratory results Abnormal [facility] HbA1c HPLC (Bld) [Mass fract ion]on 08-20-2023 HbA1c (Bld) [Mass fraction] 5.7 % [facility] No Panel Informationon 08-19 Bedside Glucose 106 [facility] No Panel Informationon 08-04 Miscellaneous Test COMMENT . [facility] Comment on above: Test Ordered: [id number] Prot Electro+Interp, 24-Hr UrProtein,Total,Urine 132.1 mg/dL CB Reference Range: Not Estab.Prot,24hr calculated 2741 [H ] mg/24 hr CB Reference Range: 30-150Albumin, U 66.3 % CB Reference Range: .Evxzb-3-Jpoynseg, U 7.5 % CB Reference Range: .Comgg-9-Jsvpvadh, U 10.6 % CB Reference Range: .Beta Globulin, U 11.9 % CB Reference Range: .Gamma Globulin, U 3.7 % CB Reference Range: .M-Tr, % Note: % CB Not Observed Reference Range: Not ObservedM-Tr, mg/24 hr [facility] Reference Range: .Please note: Comment CB Reference Range: .Protein electrophoresis scan will follow via computer,mail, or care navigator delivery.P E Interpretation, U Comment CB Reference Range: .The urine protein electrophoresis pattern reflects thepresence of specific higher molecular mass proteins withmoderate proteinuria. This pattern may be characterized asrepresenting a severe selective glomerular nephropathyindicating increased glomerular permeability. Monoclonalprotein is not apparent.Performed at: [facility] [id number] Director: Deshaun Hunter PhD, Phone: [phone] Activated partial thrombopla stin time (aPTT) in platelet poor plasma by coagulation aon 08-01-2023 aPTT Coag (PPP) [Time] 38.6 s 22.3-36.2 [facility] Atypical perinuclear antineu trophil cytoplasmic antibodies measurementon 08-01-2023 Neutrophil cytoplasmic Ab.perinuclear.atypica l IF (S) [Titer] <1:20 titer Neg:<1:20 [facility] Comment on above: The atypical pANCA p attern has been observed in asignificant percentage of patients with ulcerative colitis,primary sclerosing cholangitis and autoimmune hepatitis. Automated urine specific gra vity by refractometryon 08-01-2023 Specific gravity Refractometry automated (U) [Rel density] 1.020 1.005-1.02 5 [facility] Bilirubin Auto test strip (U ) [Mass/Vol]on 08-01-2023 Bilirubin (U) [Mass/Vol] Negative NEGATIVE [facility] Cefuroxime free [Mass/Vol]on 08-01-2023 Anti-Nuclear Antibody Profile Negative Negative [facility] Comment on above: Performed at: [place] [address] [id number] Director: Deshaun Hunter PhD, Phone: [phone] Performed at: [facility] [address] [id number] Director: Deshaun Hunter PhD, Phone: [phone] Color Auto (U)on 08-01-2023 Color (U) LT. YELLOW YELLOW [facility] Erythrocyte distribution wid th Auto (RBC) [Ratio]on 08-01-2023 Erythrocyte distribution width (RBC) [Ratio] 13.1 % 11.0-15.0 [facility] Estimated glomerular filtrat ion rate (GFR) non- Americanon 08-01-2023 GFR/1.73 sq M.predicted among non-blacks MDRD (S/P/Bld) [Vol rate/Area] 27 mL/min/{1.73_m2} >=60 [facility] Globulin Calc (S) [Mass/Vol] on 08-01-2023 Globulin (S) [Mass/Vol] 3.3 g/dL [facility] Glomerular basement membrane Ab [Units/volume] in Serum by Immunoassayon 08-01-2023 Glomerular basement membrane Ab IA Qn (S) <0.2 units 0.0-0.9 [facility] Comment on above: Performed at: [facility] [address] [id number] Director: Jhon Roberts MD, Phone: [phone] at: [facility] [address] [id number] Director: Deshaun Hunter PhD, Phone: [phone] HBV surface Ag IA Qlon 07-31 Hepatitis B Surface Antigen Negative Negative [facility] Comment on above: Performed at: Going [id number] [place], [place] [id number] Director: Deshaun Hunter PhD, Phone: [phone] Performed at: [facility] [address] [id number] Director: Deshaun Hunter PhD, Phone: [phone] Hematocrit Auto (Bld) [Volum e fraction]on 08-01-2023 Hematocrit (Bld) [Volume fraction] 27.0 % 36.0-48.0 [facility] Hemoglobin [Mass/volume] in Bloodon 08-01-2023 Hemoglobin (Bld) [Mass/Vol] 7.8 g/dL 12.0-16.0 [facility] INR in Platelet poor plasma by Coagulation assayon 08-01-2023 INR Coag (PPP) [Relative time] 2.43 {INR} [facility] Comment on above: DESIRED INR:2.0-3.0 CONDITIONS NOT LISTED BELOW2.5-3.5 FOR PROSTHETIC HEART VALVE REPLACEMENT2.5-3.5 RECURRENT THROMBOSIS Immunofixation for Urineon 0 08-01-2023 Interpretation Immunofixation (U) [Interp] Comment . [facility] Comment on above: No monoclonality det ected.Performed at: [place] [facility] [address] [id number] Director: Deshaun Hunter PhD, Phone: [phone] Iron binding capacity [Mass/ volume] in Serum or Plasmaon 08-01-2023 Iron binding capacity [Mass/Vol] 270.0 ug/dL 250.0-450. 0 [facility] Iron saturation [Mass Fracti on] in Serum or Plasmaon 08-01-2023 Iron saturation [Mass fraction] 14.8 % [facility] Ketones Auto test strip (U) [Mass/Vol]on 08-01-2023 Ketones (U) [Mass/Vol] Negative NEGATIVE [facility] - Chemistry and C hemistry - challengeon 08-01-2023 Albumin [Mass/Vol] 2.7 g/dL 3.4-5.0 [facility] ALP [Catalytic activity/Vol] 50 U/L 46-116 [facility] ALT [Catalytic activity/Vol] 18 U/L 14-59 [facility] AST [Catalytic activity/Vol] 12 U/L 15-37 [facility] Bilirubin [Mass/Vol] 0.2 mg/dL 0.2-1.0 [facility] Calcium [Mass/Vol] 8.8 mg/dL 8.5-10.1 [facility] Chloride [Moles/Vol] 105 mmol/L 98-107 [facility] CO2 [Moles/Vol] 32.1 mmol/L 21.0-32.0 [facility] Cobalamin (Vitamin B12) [Mass/Vol] 603.0 pg/mL 193.0-986. 0 [facility] Creatinine [Mass/Vol] 1.80 mg/dL 0.55-1.02 [facility] Ferritin [Mass/Vol] 32.0 ng/mL 8.0-252.0 [facility] GFR/1.73 sq M.predicted MDRD (S/P/Bld) [Vol rate/Area] 33 mL/min/{1.73_m2} >=60 [facility] Glucose [Mass/Vol] 112 mg/dL 74-106 [facility] Iron [Mass/Vol] 40.0 ug/dL 50.0-170.0 [facility] Magnesium [Mass/Vol] 1.9 mg/dL 1.8-2.4 [facility] Potassium [Moles/Vol] 4.3 mmol/L 3.5-5.1 [facility] Protein [Mass/Vol] 6.0 g/dL 6.4-8.2 [facility] Sodium [Moles/Vol] 145 mmol/L 136-145 [facility] Urea nitrogen [Mass/Vol] 33.0 mg/dL 7.0-18.0 [facility] Urea nitrogen/Creatinine [Mass ratio] 18.3 mg/mg [facility] Laboratory - Urinalysison Protein (U) [Mass/Vol] 181.1 mg/dL <=11.9 F [facility] Leukocytes [#/volume] correc katy for nucleated erythrocytes in Blood by Automated counon 08-01-2023 WBC corrected for nucl RBC Auto (Bld) [#/Vol] 6.4 10 3/uL 4.0-11.0 [facility] MCH Auto (RBC) [Entitic mass ]on 08-01-2023 MCH (RBC) [Entitic mass] 29.2 pg 26.7-34.0 [facility] MCHC Auto (RBC) [Mass/Vol]on 08-01-2023 MCHC (RBC) [Mass/Vol] 28.9 g/dL 29.9-35.2 [facility] MCV Auto (RBC) [Entitic vol] on 08-01-2023 MCV (RBC) [Entitic vol] 101.1 fL 81.0-99.0 [facility] Myeloperoxidase Ab [Units/vo lume] in Serum by Immunoassayon 08-01-2023 Myeloperoxidase Ab IA Qn (S) <0.2 units 0.0-0.9 [facility] No Panel Informationon 07-31 25-Hydroxy Vitamin D Total 16.6 ng/mL [facility] Comment on above: <20 ng/mL Vit D defi cient20-<30 ng/mL Vit D tskqejdhnkqx38-383 ng/mL Vit D sufficient>100 ng/mL Potential Toxicity Folate 13.00 ng/mL 8.60-58.90 [facility] Miscellaneous Test COMMENT . [facility] Comment on above: Test Ordered: [id number] Cryoglobulin, Ql, Serum, RflxCryoglobulin, Ql, Serum, Rflx Comment Reference Range: None detectedNone Detected at 72 hoursThis test was developed and its performance characteristicsdetermined by [employer]. It has not been cleared orapproved by the Food and Drug Administration.Performed at: [address] [id number] Director: Deshaun Hunter PhD, Phone: [phone] Parathyroid Hormone (Intact) 60 pg/mL [facility] Comment on above: Performed at: - L [address] [id number] Director: Deshaun Hunter PhD, Phone: [phone] Perinuclear ANCA (p-ANCA) Antibody <1:20 titer Neg:<1:20 [facility] Comment on above: The presence of posi tive fluorescence exhibiting P-ANCA orC-ANCA patterns alone is not specific for the diagnosis ofWegener's Granulomatosis (WG) or microscopic polyangiitis.Decisions about treatment should not be based solely onANCA IFA results. The [employer] ANCA Group Consensusrecommends follow up testing of positive sera with both CO-3 and MPO-ANCA enzyme immunoassays. As many as 5% serumsamples are positive only by EIA. Ref. AM J Clin [id number];111:507-513. Phosphorus Level 3.8 mg/dL 2.6-4.7 [facility] Urine Random Creatinine 27.68 mg/dL 20.00-300. 00 [facility] Platelet mean volume Auto (B ld) [Entitic vol]on 08-01-2023 Platelet mean volume (Bld) [Entitic vol] 10.5 fL 9.5-13.5 [facility] Platelets Auto (Bld) [#/Vol] on 08-01-2023 Platelets (Bld) [#/Vol] 227 10 3/uL 150-450 [facility] Protein Auto test strip (U) [Mass/Vol]on 08-01-2023 Protein (U) [Mass/Vol] 100 mg/dL NEG/[facility] Proteinase 3 Ab [Units/volum e] in Serum by Immunoassayon 08-01-2023 Proteinase 3 Ab IA Qn (S) <0.2 units 0.0-0.9 [facility] Prothrombin time (PT)on 07-17 PT Coag (PPP) [Time] 24.5 s 9.0-11.6 [facility] RBC Auto (Bld) [#/Vol]on RBC (Bld) [#/Vol] 2.67 10 6/uL 4.20-5.40 [facility] Serum classic neutrophil cyt oplasmic antibody titer by immunofluorescenceon 08-01-2023 Neutrophil cytoplasmic Ab.classic IF (S) [Titer] <1:20 titer Neg:<1:20 [facility] Serum or plasma albumin/glob ulin mass ratioon 08-01-2023 Albumin/Globulin [Mass ratio] 0.8 {ratio} [facility] Serum or plasma anion gap de terminationon 08-01-2023 Anion gap [Moles/Vol] 12.2 mmol/L [facility] Serum or plasma complement C 3 measurement (mass/volume)on 08-01-2023 Complement C3 [Mass/Vol] 140 mg/dL 82-167 [facility] Serum or plasma complement C 4 measurement (mass/volume)on 08-01-2023 Complement C4 [Mass/Vol] 30 mg/dL 12-38 [facility] Comment on above: Performed at: [place] [id number] Director: Deshaun Hunter PhD, Phone: [phone] Specific gravity Auto test s trip (U) [Rel density]on 08-01-2023 Specific gravity (U) [Rel density] CLEAR CLEAR [facility] Urine glucose measurement by test strip (mass/volume)on 08-01-2023 Glucose Test strip (U) [Mass/Vol] Negative NEGATIVE [facility] Urine hemoglobin detection b y automated test stripon 08-01-2023 Hemoglobin Auto test strip Ql (U) LARGE NEGATIVE [facility] Urine nitrite detection by a utomated test stripon 08-01-2023 Nitrite Auto test strip Ql (U) Negative NEGATIVE [facility] Urine protein/creatinine rat ioon 08-01-2023 Protein/Creatinine (U) [Ratio] 6.54 [facility] Urobilinogen Auto test strip (U) [Mass/Vol]on 08-01-2023 Urobilinogen Qn (U) 0.2 {Radha'U}/dL 0.2-1.0 [facility] pH Auto test strip (U)on pH (U) 7.0 [pH] 5.0-9.0 [facility] POCT EKGon 07-30-2023 [facility] POCT Protime / INRon 024 INR Coag (PPP) [Relative time] 2.3 {INR} Abnormal 0.8 - 1.2 [facility] Interpretation and review of laboratory results Abnormal [facility] POCT Protime / INRon 024 INR Coag (PPP) [Relative time] 2.2 {INR} Abnormal 0.8 - 1.2 [facility] Interpretation and review of laboratory results Abnormal [facility] POCT Protime / INRon 024 INR Coag (PPP) [Relative time] 1.4 {INR} Abnormal 0.8 - 1.2 [facility] Interpretation and review of laboratory results Abnormal [facility] POCT Protime / INRon 024 INR Coag (PPP) [Relative time] 1.8 {INR} Abnormal 0.8 - 1.2 [facility] Interpretation and review of laboratory results Abnormal [facility] POCT Protime / INRon 024 INR Coag (PPP) [Relative time] 3.2 {INR} Abnormal 0.8 - 1.2 [facility] Interpretation and review of laboratory results Abnormal [facility] POCT Protime / INRon 024 INR Coag (PPP) [Relative time] 2.3 {INR} Abnormal 0.8 - 1.2 [facility] Interpretation and review of laboratory results Abnormal [facility] POCT Protime / INRon 024 INR Coag (PPP) [Relative time] 3.5 {INR} Abnormal 0.8 - 1.2 [facility] Interpretation and review of laboratory results Abnormal [facility] BASIC METABOLIC PANLon 06-02 Anion gap [Moles/Vol] 9 mmol/L Normal - [facility] Comment on above: Performed By: #### B MP, LIVR, THYR #### [facility] ([id number]) [address] [place] [address] Calcium [Mass/Vol] 9.0 mg/dL Normal 8.5-10.5 [facility] Comment on above: Performed By: #### B SAE NICHOLS THYDeisy #### [facility] ([id number]) [address], [address] [place] [address] Chloride [Moles/Vol] 106 mmol/L Normal 98-109 [facility] Comment on above: Performed By: #### B SAE NICHOLS, THYR #### [facility] ([id number]) [address], [address] [place] [address] CO2 [Moles/Vol] 30 mmol/L Normal 22-32 [facility] Comment on above: Performed By: #### B SAE NICHOLS THYR #### [facility] ([id number]) [address], [address] [place] [address] Creatinine [Mass/Vol] 1.58 mg/dL High 0.40-1.00 [facility] Comment on above: Result Comment: METH OD TRACEABLE TO IDMS STANDARD Performed By: #### B SAE NICHOLS THYR #### [facility] ([id number]) [address], [address] [place] [address] GFR/1.73 sq M.predicted among non-blacks MDRD (S/P/Bld) [Vol rate/Area] 32 mL/min/{1.73_m2} Low >59 [facility] Comment on above: Result Comment: Reported eGFR is based on the CKD-EPI 2020 equation that does not use a race coefficient. Performed By: #### B SAE NICHOLS THYR #### [facility] ([id number]) [address], [address] [place] [address] Glucose [Mass/Vol] 125 mg/dL High 65-99 [facility] Comment on above: Performed By: #### B SAE NICHOLS THYR #### [facility] ([id number]) [address], [address] [address] [place] [address] Potassium [Moles/Vol] 4.3 mmol/L Normal 3.5-5.0 [facility] Comment on above: Performed By: #### B MP, LIVR, THYR #### [facility] ([id number]) [address], [address] [place] [address] Sodium [Moles/Vol] 145 mmol/L Normal 134-146 [facility] Comment on above: Performed By: #### B MP, LIVR, THYR #### [facility] ([id number]) [address], [address] [place] [address] Urea nitrogen [Mass/Vol] 28 mg/dL High 5-27 [facility] Comment on above: Performed By: #### B MP, LIVR, THYR #### [facility] ([id number]) [address], [address] [place] [address] LIVER PANELon 06-02-2023 Albumin [Mass/Vol] 3.3 g/dL Normal 3.2-5.3 [facility] Comment on above: Performed By: #### B MP, LIVR, THYR #### [facility] ([id number]) [address], [address] [place] [address] ALP [Catalytic activity/Vol] 40 U/L Normal 39-130 [facility] Comment on above: Performed By: #### B MP, LIVR, THYR #### [facility] ([id number]) [address], [address] [place] [address] ALT [Catalytic activity/Vol] 10 U/L Normal 0-31 [facility] Comment on above: Performed By: #### B MP, LIVR, THYR #### [facility] ([id number]) [address], [address] [place] [address] AST [Catalytic activity/Vol] 10 U/L Normal 0-41 [facility] Comment on above: Performed By: #### B SAE NICHOLS THYR #### [facility] ([id number]) [address], [address] [place] [address] Bilirubin [Mass/Vol] 0.2 mg/dL Low 0.3-1.2 [facility] Comment on above: Performed By: #### B SAE NICHOLS, THYR #### [facility] ([id number]) [address], [address] [place] [address] Bilirubin.direct [Mass/Vol] 0.0 mg/dL Normal 0.0-0.4 [facility] Comment on above: Performed By: #### B SAE NICHOLS, THYR #### [facility] ([id number]) [address], [address] [place] [address] Protein [Mass/Vol] 5.6 g/dL Low 6.0-8.0 [facility] Comment on above: Performed By: #### B SAE NICHOLS THYR #### [facility] ([id number]) [address], [address] [place] [address] POCT Protime / INRon 024 INR Coag (PPP) [Relative time] 4.7 {INR} Abnormal 0.8 - 1.2 [facility] Interpretation and review of laboratory results Abnormal [facility] THYROID PROFILEon 06-02-2023 Free T4 [Mass/Vol] 0.96 ng/dL Normal 0.61-1.60 [facility] Comment on above: Performed By: #### B MAGDALENA LIVDeisy, THYR #### [facility] ([id number]) [address], [address] [place] [address] TSH 7.63 uIU/mL High 0.49-4.67 [facility] Comment on above: Performed By: #### B MAGDALENA LIVDeisy, THYR #### [facility] ([id number]) [address], [address] [place] [address] POCT EKGOrdered By: Latia Garcia on 05-28-2023 [facility] POCT Protime / INRon 024 INR Coag (PPP) [Relative time] 3.3 {INR} Abnormal 0.8 - 1.2 [facility] Interpretation and review of laboratory results Abnormal [facility] POCT Protime / INRon 024 INR Coag (PPP) [Relative time] 4.6 {INR} Abnormal 0.8 - 1.2 [facility] Interpretation and review of laboratory results Abnormal [facility] A1C HEMOGLOBINon 02-19-2023 HbA1c (Bld) [Mass fraction] 5.8 % [employer] [facility] [employer] Other Glucose - FINGER STICKon Glucose [Mass/Vol] 174 mg/dL [employer] [facility] [employer] Other HbA1c (Bld) [Mass fraction]o n 02-19-2023 A1C HEMOGLOBIN [facility] [employer] Other PROF 14(COMP METB)on 023 Albumin [Mass/Vol] 2.9 g/dL Critically low 3.4-5.0 Th e [facility] Comment on above: Performed By: #### C MP #### [facility] [address] [place] [address] Dr. Lamar Lin Albumin/Globulin [Mass ratio] 0.8 {ratio} Normal [facility] Comment on above: Performed By: #### C MP #### [facility] [address] [address] [address] Lamar Lin ALP [Catalytic activity/Vol] 70 U/L Normal 46-116 [facility] Comment on above: Performed By: #### C MP #### [facility] [address] [address] [address] Lamar Lin ALT [Catalytic activity/Vol] 14 U/L Normal 14-59 [facility] Comment on above: Performed By: #### C MP #### [facility] [address] [address] [address] Lamar Lin Anion gap [Moles/Vol] 10.5 mmol/L Normal Th [facility] Comment on above: Performed By: #### C MP #### [facility] [address] [address] [address] Lamar Lin AST [Catalytic activity/Vol] 10 U/L Critically low 15-37 [facility] Comment on above: Performed By: #### C MP #### [facility] [address] [address] [address] Lamar Lin Bilirubin [Mass/Vol] 0.2 mg/dL Normal 0.2-1.0 [facility] Comment on above: Performed By: #### C MP #### [facility] [address] [address] [address] Lamar Lin Calcium [Mass/Vol] 9.4 mg/dL Normal 8.5-10.1 [facility] Comment on above: Performed By: #### C MP #### [facility] [address] [address] [address] Lamar Lin Chloride [Moles/Vol] 104 mmol/L Normal 98-107 [facility] Comment on above: Performed By: #### C MP #### [facility] [address] [address] [address] Lamar Lin CO2 [Moles/Vol] 34.9 mmol/L Critically high 21.0-32.0 [facility] Comment on above: Performed By: #### C MP #### [facility] [address] [address] [address] Lamar Lin Creatinine [Mass/Vol] 0.96 mg/dL Normal 0.55-1.02 [facility] Comment on above: Performed By: #### C MP #### [facility] [address] [address] [address] Lamar Lin EGFR-AF COOK ISLANDER >60 Normal >=60 [facility] Comment on above: Performed By: #### C MP #### [facility] [address] [address] [address] Lamar Lin EGFR-NON AF [place] ISLANDER 56 mL/min/1.73m2 Critically low >=60 [facility] Comment on above: Performed By: #### C MP #### [facility] [address] [address] [address] Lamar Lin Globulin (S) [Mass/Vol] 3.7 g/dL Normal [facility] Comment on above: Performed By: #### C MP #### [facility] [address] [address] [address] Lamar Lin Glucose [Mass/Vol] 132 mg/dL Critically high 74-106 [facility] Comment on above: Performed By: #### C MP #### [facility] [address] [address] [address] Lamar Lin Potassium [Moles/Vol] 4.4 mmol/L Normal 3.5-5.1 [facility] Comment on above: Performed By: #### C MP #### [facility] [address] [address] [address] Lamar Lin Protein [Mass/Vol] 6.6 g/dL Normal 6.4-8.2 [facility] Comment on above: Performed By: #### C MP #### [facility] [address] [address] [address] Lamar Lin Sodium [Moles/Vol] 145 mmol/L Normal 136-145 [facility] Comment on above: Performed By: #### C MP #### [facility] [address] [address] [address] Lamar Lin Urea nitrogen [Mass/Vol] 28.0 mg/dL Critically high 7.0-18.0 [facility] Comment on above: Performed By: #### C MP #### [facility] [address] [address] [address] Lamar Lin Urea nitrogen/Creatinine [Mass ratio] 29.2 mg/mg Normal [facility] Comment on above: Performed By: #### C MP #### [facility] [address] [address] [address] Lamar Lin A1C with Estimated Average G karinn 08-19-2022 HbA1c (Bld) [Mass fraction] 6.500 % High 4.3-5.6 % [employer] Other HbA1c (Bld) [Mass fraction] 140 mg/dL [employer] Other Comprehensive Metabolic Pane nahun 08-19-2022 Albumin [Mass/Vol] 3.294013 g/dL Normal 3.5-5.7 g/dL [employer] Other Albumin/Globulin [Mass ratio] 1.7 {ratio} [employer] Other ALP [Catalytic activity/Vol] 56 U/L Normal 34-104 U/L [employer] Other ALT [Catalytic activity/Vol] 14 U/L Normal 7-52 U/L [employer] Other AST [Catalytic activity/Vol] 15 U/L Normal 13-39 U/L [employer] Other Bilirubin [Mass/Vol] 0.3686005 mg/dL Low 0.3- 1.0 mg/dL [employer] Other Calcium [Mass/Vol] 9.5991995 mg/dL Normal 8.6-10 .3 mg/dL [employer] Other Chloride [Moles/Vol] 103 mmol/L Normal 98-107 mmol/L [employer] Other CO2 [Moles/Vol] 34.54676894 mmol/L High 21.0-3 1.0 mmol/L [employer] Other Creatinine [Mass/Vol] 0.02784198 mg/dL Normal 0. 60-1.20 mg/dL [employer] Other GFR/1.73 sq M.predicted MDRD (S/P/Bld) [Vol rate/Area] mL/min/{1.73_m2} [employer] Other Glucose [Mass/Vol] 156 mg/dL High 70-100 mg/dL [employer] Other Potassium [Moles/Vol] 4.39941178 mmol/L Normal 3 .5-5.1 mmol/L [employer] Other Protein [Mass/Vol] 5.839817 g/dL Low 6.4-8.9 g/dL [employer] Other Sodium [Moles/Vol] 144 mmol/L Normal 136-145 mmol/L [employer] Other Urea nitrogen [Mass/Vol] 24 mg/dL Normal 7-25 mg/dL [employer] Other Comprehensive Metabolic Panel 2.1 g/dL [employer] Other Glucose - FINGER STICKon Glucose [Mass/Vol] 205 mg/dL [employer] Other Lipid Panelon 08-19-2022 Cholesterol [Mass/Vol] 172 mg/dL Normal 140-2 00 mg/dL [employer] Other Cholesterol in HDL [Mass/Vol] 33 mg/dL Low 35-85 mg/dL [employer] Other Cholesterol in LDL Elph Qn 95 mg/dL Normal 0-100 mg/dL [employer] Other Cholesterol.total/Chol esterol in HDL [Mass ratio] 5.2 {ratio} <5.0 [employer] Other Lipid Panel 219 mg/dL High 0-149 mg/dL [employer] Other Lipid Panel 43 mg/dL [employer] Other MicroAlb Creat Ratio,Uon Albumin DL <= 20 mg/L (U) [Mass/Vol] mg/dL High 0.0-1.8 [employer] Other Albumin/Creatinine DL <= 20 mg/L (U) [Mass ratio] TNP 0.0-30.0 [employer] Other Creatinine (U) [Mass/Vol] 52.3618204 mg/dL [employer] Other Vitamin B12on 08-19-2022 Cobalamin (Vitamin B12) [Mass/Vol] 345 pg/mL Normal 180-914 pg/mL [employer] Other A1C HEMOGLOBINon 02-27-2022 HbA1c (Bld) [Mass fraction] 6.1 % [employer] Other Glucose - FINGER STICKon Glucose [Mass/Vol] 159 mg/dL [employer] Other HbA1c (Bld) [Mass fraction]o n 02-27-2022 A1C HEMOGLOBIN [facility] [employer] Other FREE T4on 10-30-2021 Free T4 [Mass/Vol] 1.11 ng/dL Normal 0.76-1.46 [facility] Comment on above: Performed By: #### F T4 #### [facility] [address] [place] [address] Dr. Lamar Lin T4on 10-30-2021 T4 [Mass/Vol] 8.30 ug/dL Normal 4.80-13.[address] [facility] Comment on above: Performed By: #### T 4, TSH #### [facility] [address] [place] [address] Dr. Lamar Lin TSHon 10-30-2021 TSH 2.475 uIU/mL Normal 0.358-3.74 0 [facility] Comment on above: Performed By: #### T 4, TSH #### [facility] [address] [place] [address] Dr. Lamar Lin Glucoseon 05-23-2021 Glucose [Mass/Vol] 167 mg/dL [place] [employer] Other Social History Date Type Detail Facility Start: 06-29-2020 End: 05-09-2023 Sex Assigned At [facility] Other Start: 05-09-2023 End: 07-30-2023 Alcohol intake [facility] Start: 06-29-2020 End: 05-09-[address] [facility] Start: 03-11-2022 End: 09-23-2023 Tobacco smoking status NHIS Never smoked tobacco [facility] Start: 03-11-2022 Tobacco use and exposure Smokeless tobacco non-user [facility] Start: 1940 Sex Assigned At Not on file [facility] Start: 1940 Sex Assigned At Female F [facility] Unknown if ever smoked [employer] Other How often to you hav e a drink containing alcohol? Never [facility] [facility] How many standard drinks containing alcohol do you have on a typical day? Patient does not drink [facility] Vital Signs Date Time Vital Sign Value Performing Clinician Facility 11-05-2023 14:04-0400 Body height 152.4 cm [facility] Anika Henry Work Phone: [facility] 11-05-2023 14:04-0400 Body mass index (BMI) [Ratio] 39 kg/m2 [facility]Thuy Henry Work Phone: [facility] 11-05-2023 14:04-0400 Body temperature 98.1 [degF] [facility] Anika Henry Work Phone: [facility] 11-05-2023 14:04-0400 Body weight 90.71 kg [facility]Thuy Henry Work Phone: [facility] 11-05-2023 14:04-0400 Diastolic blood pressure 68 mm[Hg] [facility]Thuy Henry Work Phone: [facility] 11-05-2023 14:04-0400 Heart rate 56 /min [facility]Thuy Henry Work Phone: [facility] 11-05-2023 14:04-0400 Inhaled oxygen flow rate 2 L/min [facility] Anika Elaine Work Phone: [facility] 11-05-2023 14:04-0400 Respiratory rate 18 /min [facility] Anika Elaine Work Phone: [facility] 11-05-2023 14:04-0400 SaO2% (BldA) [Mass fraction] 92 % [facility] Anika Elaine Work Phone: [facility] 11-05-2023 14:04-0400 Systolic blood pressure 136 mm[Hg] [facility] Anika Elaine Work Phone: [facility] 10-15-2023 13:42-0400 Body height 152.4 cm [employer] Anikasophy Marsmer Work Phone: [facility] 10-15-2023 13:42-0400 Body mass index (BMI) [Ratio] 38.7 kg/m2 [employer] Anika Elaine Work Phone: [facility] 10-15-2023 13:42-0400 Body temperature 97.6 [degF] [facility] Anikasophy Marsmer Work Phone: [facility] 10-15-2023 13:42-0400 Body weight 90.03 kg [employer]C Anika Marsmer Work Phone: [facility] 10-15-2023 13:42-0400 Diastolic blood pressure 70 mm[Hg] [employer] Anika Elaine Work Phone: [facility] 10-15-2023 13:42-0400 Heart rate 60 /min [facility] Anika Elaine Work Phone: [facility] 10-15-2023 13:42-0400 Inhaled oxygen flow rate 2 L/min [facility] Anika Elaine Work Phone: [facility] 10-15-2023 13:42-0400 Respiratory rate 18 /min [employer] Anika Elaine Work Phone: [facility] 10-15-2023 13:42-0400 SaO2% (BldA) [Mass fraction] 97 % [employer] Anika Elaine Work Phone: [facility] 10-15-2023 13:42-0400 Systolic blood pressure 143 mm[Hg] [facility] Anika Elaine Work Phone: [facility] 09-23-2023 09:37-0400 Body height 152.4 cm [employer] Anika Elaine Work Phone: [facility] 09-23-2023 09:37-0400 Body mass index (BMI) [Ratio] 38.5 kg/m2 [facility] Anika Elaine Work Phone: [facility] 09-23-2023 09:37-0400 Body temperature 97.9 [degF] [facility] Anika Elaine Work Phone: [facility] 09-23-2023 09:37-0400 Body weight 89.44 kg [employer]C Anika Elaine Work Phone: [facility] 09-23-2023 09:37-0400 Diastolic blood pressure 72 mm[Hg] [employer] Anika Elaine Work Phone: [facility] 09-23-2023 09:37-0400 Heart rate 67 /min [facility] Anika Elaine Work Phone: [facility] 09-23-2023 09:37-0400 Inhaled oxygen flow rate 2 L/min [facility] Anika Elaine Work Phone: [facility] 09-23-2023 09:37-0400 Respiratory rate 18 /min [employer] Anika Elaine Work Phone: [facility] 09-23-2023 09:37-0400 SaO2% (BldA) [Mass fraction] 97 % [employer] Anika Elaine Work Phone: [facility] 09-23-2023 09:37-0400 Systolic blood pressure 149 mm[Hg] [employer] Anika Elaine Work Phone: [facility] 09-09-2023 14:15-0400 Body height 152.4 cm [employer] Anika Elaine Work Phone: [facility] 09-09-2023 14:15-0400 Body mass index (BMI) [Ratio] 38.9 kg/m2 [employer] Anika Elaine Work Phone: [facility] 09-09-2023 14:15-0400 Body temperature 97.2 [degF] [employer] Anika Elaine Work Phone: [facility] 09-09-2023 14:15-0400 Body weight 90.49 kg [employer]C Anika Elaine Work Phone: [facility] 09-09-2023 14:15-0400 Diastolic blood pressure 77 mm[Hg] [employer]C Anika Elaine Work Phone: [facility] 09-09-2023 14:15-0400 Heart rate 70 /min [employer] Anika Elaine Work Phone: [facility] 09-09-2023 14:15-0400 Inhaled oxygen flow rate 2 L/min [employer] Anika Elaine Work Phone: [facility] 09-09-2023 14:15-0400 Respiratory rate 18 /min [employer] Anikasophy Marsmer Work Phone: [facility] 09-09-2023 14:15-0400 SaO2% (BldA) [Mass fraction] 97 % [employer] Anika Elaine Work Phone: [facility] 09-09-2023 14:15-0400 Systolic blood pressure 147 mm[Hg] [employer]C Anika Elaine Work Phone: [facility] 09-01-2023 11:35-0400 Diastolic blood pressure 73 mm[Hg] [employer]C Anika Elaine Work Phone: [facility] 09-01-2023 11:35-0400 Heart rate 62 /min [employer] Anika Elaine Work Phone: [facility] 09-01-2023 11:35-0400 Inhaled oxygen flow rate 2 L/min [employer] Anikasophy Marsmer Work Phone: [facility] 09-01-2023 11:35-0400 Respiratory rate 18 /min [employer] Anikasophy Marsmer Work Phone: [facility] 09-01-2023 11:35-0400 SaO2% (BldA) [Mass fraction] 96 % [employer] Anika Henry Work Phone: [facility] 09-01-2023 11:35-0400 Systolic blood pressure 164 mm[Hg] [employer]ER[employer]-C Anika Henry Work Phone: [facility] 09-01-2023 09:17-0400 Body height 152.4 cm [employer]ER[employer]-C Anika Henry Work Phone: [facility] 09-01-2023 09:17-0400 Body weight 93.44 kg [employer]C Anika Henry Work Phone: [facility] 08-20-2023 10:20-0400 Body height 152.4 cm [facility] 08-20-2023 10:20-0400 Body mass index (BMI) [Ratio] 40.2 kg/m2 [facility] 08-20-2023 10:20-0400 Body weight 93.44 kg [facility] 08-20-2023 10:20-0400 Diastolic blood pressure 84 mm[Hg] [facility] 08-20-2023 10:20-0400 Heart rate 73 /min [facility] 08-20-2023 10:20-0400 Inhaled oxygen flow rate 2 L/min [facility] 08-20-2023 10:20-0400 Respiratory rate 18 /min [facility] 08-20-2023 10:20-0400 SaO2% (BldA) [Mass fraction] 94 % [facility] 08-20-2023 10:20-0400 Systolic blood pressure 176 mm[Hg] [facility] 08-13-2023 10:41-0400 Body height 152.4 cm [facility] 08-13-2023 10:41-0400 Body mass index (BMI) [Ratio] 40.1 kg/m2 [facility] 08-13-2023 10:41-0400 Body temperature 97.5 [degF] [facility] 08-13-2023 10:41-0400 Body weight 93.15 kg [facility] 08-13-2023 10:41-0400 Diastolic blood pressure 72 mm[Hg] [facility] 08-13-2023 10:41-0400 Heart rate 77 /min [facility] 08-13-2023 10:41-0400 Inhaled oxygen flow rate 2 L/min [facility] 08-13-2023 10:41-0400 Respiratory rate 20 /min [facility] 08-13-2023 10:41-0400 SaO2% (BldA) [Mass fraction] 95 % [facility] 08-13-2023 10:41-0400 Systolic blood pressure 162 mm[Hg] [facility] 07-30-2023 11:44-0400 Body height 165.1 cm Tr SOLORZANO Work Phone: [facility] 07-30-2023 11:44-0400 Body mass index (BMI) [Ratio] 34.28 kg/m2 Tr Jimenez APRN-MAINFRAME PROGRAMMER Work Phone: [facility] 07-30-2023 11:44-0400 Body weight 93.44 kg Tr Jimenez APRN-JOSE Work Phone: [facility] 07-30-2023 11:44-0400 Diastolic blood pressure 80 mm[Hg] Tr Jimenez APRN-MAINFRAME PROGRAMMER Work Phone: [facility] 07-30-2023 11:44-0400 Heart rate 59 /min Tr Jimenez APRN-MAINFRAME PROGRAMMER Work Phone: [facility] 07-30-2023 11:44-0400 Systolic blood pressure 140 mm[Hg] Tr Jimenez APRN-MAINFRAME PROGRAMMER Work Phone: [facility] 06-17-2023 12:41-0500 Body height 165.1 cm Iona Delarosa MD Work Phone: [facility] 06-17-2023 12:41-0500 Body mass index (BMI) [Ratio] 33.61 kg/m2 Iona Delarosa MD Work Phone: [facility] 06-17-2023 12:41-0500 Body weight 91.63 kg Iona Delarosa MD Work Phone: [facility] 06-17-2023 12:41-0500 Diastolic blood pressure 70 mm[Hg] Iona Delarosa MD Work Phone: [facility] 06-17-2023 12:41-0500 Heart rate 73 /min Iona Delarosa MD Work Phone: [facility] 06-17-2023 12:41-0500 SaO2% (BldA) [Mass fraction] 97 % Iona Delarosa MD Work Phone: [facility] 06-17-2023 12:41-0500 Systolic blood pressure 160 mm[Hg] Iona Delarosa MD Work Phone: [facility] 05-28-2023 12:35-0500 Body height 165.1 cm Tr Jimenez APRN-MAINFRAME PROGRAMMER Work Phone: [facility] 05-28-2023 12:35-0500 Body mass index (BMI) [Ratio] 33.61 kg/m2 Tr Jimenez SUPERVISOR [employer]-MAINFRAME PROGRAMMER Work Phone: [facility] 05-28-2023 12:35-0500 Body weight 91.63 kg Tr Jimenez SUPERVISOR [employer]-MAINFRAME PROGRAMMER Work Phone: [facility] 05-28-2023 12:35-0500 Diastolic blood pressure 100 mm[Hg] Tr Jimenez SUPERVISOR [employer]-MAINFRAME PROGRAMMER Work Phone: [employer] 05-28-2023 12:35-0500 Heart rate 64 /min Tr Jimenez APRN-MAINFRAME PROGRAMMER Work Phone: [employer] [facility] 05-28-2023 12:35-0500 SaO2% (BldA) [Mass fraction] 94 % Tr Jimenez APRN-MAINFRAME PROGRAMMER Work Phone: [employer] [facility] 05-28-2023 12:35-0500 Systolic blood pressure 200 mm[Hg] Tr Jimenez APRN-MAINFRAME PROGRAMMER Work Phone: [employer] 04-22-2023 10:20-0500 Body height 152.4 cm Rin Darbys Other [facility] 04-22-2023 10:20-0500 Body mass index (BMI) [Ratio] 39.64 kg/m2 Azwalter Darbys Other [facility] [employer] Other 04-22-2023 10:20-0500 Body weight 92.08 kg [employer] Other [facility] [employer] Other 04-22-2023 10:20-0500 Body weight 92.07 kg [facility] 04-22-2023 10:20-0500 Diastolic blood pressure 70 mm[Hg] Aziz Alehous Other [facility] 04-22-2023 10:20-0500 Respiratory rate 18 /min Aziz Alehous Other [facility] [employer] Other 04-22-2023 10:20-0500 SaO2% (BldA) [Mass fraction] 97 % Aziz Bakhous Other [facility] [employer] Other 04-22-2023 10:20-0500 Systolic blood pressure 138 mm[Hg] Aziz Bakhous Other [facility] 02-19-2023 09:15-0400 Body height 152.4 cm Tondra Mapus Other [facility] Other 02-19-2023 09:15-0400 Body mass index (BMI) [Ratio] 40.21 kg/m2 Tondra Mapus Other [facility] Other 02-19-2023 09:15-0400 Body weight 93.4 kg Tondra Mapus Other [facility] Other 02-19-2023 09:15-0400 Diastolic blood pressure 64 mm[Hg] Tondra Mapus Other [facility] Other 02-19-2023 09:15-0400 Respiratory rate 18 /min Tondra Mapus Other [facility] Other 02-19-2023 09:15-0400 SaO2% (BldA) [Mass fraction] 95 % Tondra Mapus Other [facility] Other 02-19-2023 09:15-0400 Systolic blood pressure 129 mm[Hg] Tondra Mapus Other [facility] Other 02-12-2023 09:00-0400 Body height 152.4 cm Tondra Mapus Other [facility] Other 02-12-2023 09:00-0400 Body mass index (BMI) [Ratio] 40.07 kg/m2 Tondra Mapus Other [facility] Other 02-12-2023 09:00-0400 Body weight 93.08 kg Tondra Mapus Other [facility] Other 10-22-2022 10:00-0400 Body height 152.4 cm Rin Darbys Other [facility] Other 10-22-2022 10:00-0400 Body mass index (BMI) [Ratio] 40.23 kg/m2 [employer] Aguilerahous Other [facility] Other 10-22-2022 10:00-0400 Body temperature 97.4 [degF] Rin Darbys Other [facility] Other 10-22-2022 10:00-0400 Body weight 93.44 kg Rin Darbys Other [facility] Other 10-22-2022 10:00-0400 Diastolic blood pressure 78 mm[Hg] [employer]walter Darbys Other [facility] Other 10-22-2022 10:00-0400 Respiratory rate 20 /min Rin Darbys Other [facility] Other 10-22-2022 10:00-0400 SaO2% (BldA) [Mass fraction] 92 % Rin Aguilerahous Other [facility] Other 10-22-2022 10:00-0400 Systolic blood pressure 146 mm[Hg] Aziz Bakhous Other [facility] Other 08-19-2022 10:15-0400 Body height 152.4 cm Chester Lin Other [facility] Other 08-19-2022 10:15-0400 Body mass index (BMI) [Ratio] 39.82 kg/m2 Tondra Mapus Other [facility] Other 08-19-2022 10:15-0400 Body weight 92.49 kg Tondra Mapus Other [facility] Other 08-19-2022 10:15-0400 Diastolic blood pressure 63 mm[Hg] Tondra Mapus Other [facility] Other 08-19-2022 10:15-0400 Respiratory rate 20 /min Tondra Mapus Other [facility] Other 08-19-2022 10:15-0400 SaO2% (BldA) [Mass fraction] 95 % Tondra Mapus Other [facility] Other 08-19-2022 10:15-0400 Systolic blood pressure 136 mm[Hg] Tondra Mapus Other [facility] Other 02-27-2022 10:15-0400 Body height 152.4 cm Tondra Mapus Other [facility] Other 02-27-2022 10:15-0400 Body mass index (BMI) [Ratio] 41.79 kg/m2 Tondra Mapus Other [facility] Other 02-27-2022 10:15-0400 Body weight 97.07 kg Tondra Mapus Other [facility] Other 02-27-2022 10:15-0400 Diastolic blood pressure 55 mm[Hg] Tondra Mapus Other [facility] Other 02-27-2022 10:15-0400 Respiratory rate 20 /min Tondra Mullinsus Other [facility] Other 02-27-2022 10:15-0400 SaO2% (BldA) [Mass fraction] 97 % Tona Susannaus Other [facility] Other 02-27-2022 10:15-0400 Systolic blood pressure 130 mm[Hg] Tondra Mapus Other [facility] Other 10-23-2021 11:00-0400 Body height 152.4 cm Rin [employer] Other [facility] Other 10-23-2021 11:00-0400 Body mass index (BMI) [Ratio] 44.05 kg/m2 [employer] Other [facility] Other 10-23-2021 11:00-0400 Body temperature 97.5 [degF] Aziz [employer] Other [facility] Other 10-23-2021 11:00-0400 Body weight 102.33 kg [employer] Other [facility] Other 10-23-2021 11:00-0400 Diastolic blood pressure 72 mm[Hg] Aziz Bakhous Other [facility] Other 10-23-2021 11:00-0400 Respiratory rate 20 /min Aziz Bakhous Other [facility] Other 10-23-2021 11:00-0400 SaO2% (BldA) [Mass fraction] 94 % Aziz Bakhous Other [facility] Other 10-23-2021 11:00-0400 Systolic blood pressure 135 mm[Hg] Rin Sarmiento Other [facility] Other 05-23-2021 10:15-0500 Body height 152.4 cm Tondra Mapus Other [facility] Other 05-23-2021 10:15-0500 Body mass index (BMI) [Ratio] 43.25 kg/m2 Tondra Mapus Other [facility] Other 05-23-2021 10:15-0500 Body weight 100.47 kg Tondra Mapus Other [facility] Other 05-23-2021 10:15-0500 Diastolic blood pressure 57 mm[Hg] Tondra Mapus Other [facility] Other 05-23-2021 10:15-0500 Respiratory rate 20 /min Tondra Mapus Other [facility] Other 05-23-2021 10:15-0500 SaO2% (BldA) [Mass fraction] 96 % Tondra Mapus Other [facility] Other 05-23-2021 10:15-0500 Systolic blood pressure 131 mm[Hg] Tondra Mapus Other [facility] Other Clinical Notes 06-04-2020 to 08-21-2023 Alie Schumacher, [facility] - 08/21/2023 1:45 PM Jaime Schumacher, [facility] - 08/21/2023 1:45 PM Ross Jimenez, [employer]PER[employer]OR [employer] - 07/30/2023 12:30 PM EDZachery Schumacher [facility] - 07/30/2023 11:30 AM EDT Note Date & Type Note Facility 08-21-2023 History of Presen t illness Narrative 15 minute zwwh-fc-liza follow-up anticoagulation appointment. INR performed in office [...] Upcoming procedures: YES Kidney biopsy on 09/01/23; [facility] [place] Dr. Sarmiento Patient thinks she needs to [...] that persists or worsens. Alie Schumacher Venkata 08/21/[address] Sarmiento office ([phone]; [facility]) to inquire about procedural needs. LM requesting return call to clarify holding needs for biopsy on 09/01/23. Pending holding needs, clearance to hold may be needed by [facility]. Patient dx: Afib with CHADsVASc=4. Bridging not recommended. Last saw ROASTERMAN Tony on 07/30/23. Alie Schumacher, PharmD, BCPS August 21, 2023 1:49 PM Alie Schumacher [facility] 08/21/23 1350 [facility] History of Presen t illness Narrative Margie Kent Mauricio Date of visit: 07/30/2023 Date of : 1940 Age: 83 y.o. Patient Active Problem List Diagnosis COPD with acute exacerbation ([facility]) Bigeminy Benign hypertensive heart disease without congestive heart failure Obstructive sleep apnea syndrome Shortness of breath Abnormal result of cardiovascular function study Class 3 severe obesity in adult ([facility]) Ventricular premature beats 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 ([facility]) PAF (paroxysmal 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) ([facility]) Sinus pause Allergies Allergen Reactions Janeth Inhibitors [...] seen by EP service upon transfer to [facility] from [facility] in April. There was reports of post-conversion pause approximately 6 seconds while at [facility] though records were not obtainable for review. [...] kidney disease COPD (chronic obstructive pulmonary disease) ([facility]) DM type 2 (diabetes mellitus, type 2) ([facility]) HTN (hypertension) Hyperlipidemia 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 ([facility]) 09/03/2021 Hypothyroid KELECHI (obstructive sleep apnea) No [...] Reorder IMPRESSIONS/PLAN 1. PAF (paroxysmal 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) ([facility]) - amiodarone (PACERONE) 200 mg tablet; Take [...] 01/30/2024) for Next scheduled follow up with . PCP: RASHAD MERCHANT Referring Physician: RASHAD Cabrera [address] [place] [address] RASHAD Duff 07/30/23 1322 documented in this encounter [facility] 07-30-2023 History of Presen t illness Narrative 15 minute lxxk-pr-qhll follow-up anticoagulation appointment. INR performed in office [...] that persists or worsens. Alie Schumacher RPH 07/30/23 1153 documented in this encounter [facility] 07-29-2023 Miscellaneous Notes Called patient to remind them to bring their most current copy of their medication list with them to their appt. Patient verbalizes understanding. documented in this encounter [facility] 07-29-2023 Telephone encounter Note Called patient to remind them to bring their most current copy of their medication list with them to their appt. Patient verbalizes understanding. [facility] 07-21-2023 History of Presen t illness Narrative Albuterol refill sent to [facility] [place] per pt request. documented in this encounter [facility] 07-18-2023 History of Presen t illness Narrative 15 minute mkzi-ng-gsyn follow-up anticoagulation appointment. INR performed in office [...] that persists or worsens. Alie Schumacher RPH 07/18/23 1318 documented in this encounter [employer] 07-10-2023 History of Presen t illness Narrative 15 minute jyve-bx-mqnk follow-up anticoagulation appointment. INR performed in office [...] bleeding/bleeding that persists or worsens. Alie Schumacher [facility] 07/10/23 1328 documented in this encounter [facility] 06-26-2023 History of Presen t illness Narrative 15 minute zrco-eo-nxsw follow-up anticoagulation appointment. INR performed in office [...] bleeding/bleeding that persists or worsens. Alie Schumacher [facility] 06/26/23 1315 documented in this encounter [facility] 06-17-2023 History of Presen t illness Narrative Margie Martínez Date of visit: 06/17/2023 Date of : 1940 Age: 82 y.o. Patient Active Problem List Diagnosis COPD with acute exacerbation ([facility]) Bigeminy Benign hypertensive heart disease without congestive heart failure Obstructive sleep apnea syndrome Shortness of breath Abnormal result of cardiovascular function study Class 3 severe obesity in adult ([facility]) Ventricular premature beats 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 ([facility]) PAF (paroxysmal 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) ([facility]) Sinus pause Allergies Allergen Reactions Janeth Inhibitors [...] monitor which she is going to wear tonYi De. She is on long-term oxygen she is [...] kidney disease COPD (chronic obstructive pulmonary disease) ([facility]) DM type 2 (diabetes mellitus, type 2) ([facility]) HTN (hypertension) Hyperlipidemia 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 ([facility]) 09/03/2021 Hypothyroid KELECHI (obstructive sleep apnea) No [...] MERCHANT Referring Physician: RASHAD Cabrera [address] [facility] [place] [address] documented in this encounter [facility] 06-17-2023 History of Presen t illness Narrative 15 minute gmos-rk-nvqy follow-up anticoagulation appointment. INR performed in office [...] RPH 06/17/23 1232 documented in this encounter [facility] 06-16-2023 Miscellaneous Notes Called patient to remind them to bring their most current copy of their medication list with them to their appt. Patient verbalizes understanding. documented in this encounter [facility] 06-16-2023 Telephone encounter Note Called patient to remind them to bring their most current copy of their medication list with them to their appt. Patient verbalizes understanding. [facility] 06-10-2023 History of Presen t illness Narrative 15 minute vweu-py-nvau follow-up anticoagulation appointment. INR performed in office [...] RPH 06/10/23 1428 documented in this encounter [facility] 06-05-2023 History of Presen t illness Narrative 15 minute tbgl-fu-timw follow-up anticoagulation appointment. INR performed in office [...] but remains elevated. Patient instructed to hold /18, then start new plan. Patient has had [...] RPH 06/05/23 1132 documented in this encounter [facility] 06-03-2023 Evaluation note Encounter Date Diagnosis Assessment Notes May, Edema (ICD-10 - R60.9) [facility] Other 01-15-2024 History of Present illness Narrative* Alie Schumacher RPH - 06/02/2023 1:15 PM EST 15 minute letg-sl-ijmv follow-up anticoagulation appointment. INR performed in office [...] that persists or worsens. Alie Schumacher RPH 06/02/23 1424 [facility] History of Present illness Narrative* Tr Jimenez APRN-MAINFRAME PROGRAMMER - 05/28/2023 1:00 PM EST Margie Martínez Date of visit: 05/28/2023 Date of : 1940 Age: 82 y.o. Patient Active Problem List Diagnosis COPD with acute exacerbation ([facility]) Bigeminy Benign hypertensive heart disease without congestive heart failure Obstructive sleep apnea syndrome Shortness of breath Abnormal result of cardiovascular function study Class 3 severe obesity in adult ([facility]) Ventricular premature beats 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 ([facility]) PAF (paroxysmal 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) ([facility]) Sinus pause Allergies Allergen Reactions Janeth Inhibitors [...] Units total) by mouth in the morning. alaTest [employer] 2 SENSOR kit USE DIRECTED CHANGE [...] states that she was hospitalized initially at [place] for symptomatic 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. Upon resolution, she was discharged home though recurrent episodes warranted repeat visit. She was then seen at [facility] where she had episodes of conversion pauses reported. She was transferred then to [facility] evaluated by EP team. Patient was [...] kidney disease COPD (chronic obstructive pulmonary disease) ([facility]) DM type 2 (diabetes mellitus, type 2) ([facility]) HTN (hypertension) Hyperlipidemia 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 ([facility]) 09/03/2021 Hypothyroid KELECHI (obstructive sleep apnea) [...] tablet IMPRESSIONS/PLAN 1. PAF (paroxysmal 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) ([facility]) - POCT EKG - Wireless Telemetry (In Office); Future 2. Ventricular premature beats - POCT EKG 3. Sinus pause - Wireless Telemetry (In Office); Future 4. Benign hypertensive heart disease without congestive heart failure - Basic Metabolic Panel; Future 5. 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 Patient verbalizes understanding. [facility] Telephone encounter Note* Telephone Encounter - Elza Schilling CMA - 05/27/2023 9:42 AM EST Called patient to remind them to bring their most current copy of their medication list with them to their appt. Patient verbalizes understanding. [employer]01-08-2024 History of Present illness Narrative* Alie Schumacher RP - 05/26/2023 1:45 PM EST 15 minute sokr-dp-fzof follow-up anticoagulation appointment. INR performed in office [...] 7% (16.25 mg weekly). 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 Alie Schumacher [facility] 05/26/23 1409 documented in this [facility] [id number] History of Present illness Narrative* Aylin Chahal, [facility] - 05/21/2023 11:30 AM EST 30 minute thit-gf-bgey follow-up anticoagulation appointment. INR performed in office [...] Chahal RPH 05/21/23 1143 documented [facility] Evaluation note* Encounter Date Diagnosis Assessment Notes Treatment Notes Treatment Clinical Notes Apr, Nephritis (ICD-10 - N05.9) [facility] Other [id number] Evaluation note* Encounter Date Diagnosis Assessment Notes [...] check iron, folate and VB12 storage studies [facility] Other 12-04-2023 Evaluation note* Encounter Date Diagnosis Assessment Notes Treatment Notes Treatment Clinical Notes Apr, Edema (ICD-10 - R60.9) [facility] Other 10-04-2023 Evaluation note* Encounter Date Diagnosis Assessment Notes Treatment Notes Treatment Clinical Notes Feb, Dietary counseling and surveillance (ICD-10 - Z71.3) Maintaining a healthful weight material was printed see above Feb, Type 2 diabetes mellitus (ICD-10 - E11.9) Type 2 diabetes material was printed 1. Controlled, Type 2 diabetes with A1c 5.8%. 2. Blood glucose levels improved. According to [employer] cgm download 02/06/2023- 3 Avg glucose 116. >250-0%, >180-1%, 70-180-99%, <70-0%, [...] hypertension material was printed on arb Feb, [facility] current use of insulin (ICD-10 - Z79.4) Feb, Vitamin B 12 deficiency (ICD-10 - E53.8) 09/08 b12 345 at target Feb, Albuminuria (ICD-10 - R80.9) Protein, urine material was printed Reviewed importance of glucose/bp control to prevent further nephropathy. Keep f/u with nephrology Feb, BMI 40.0-44.9, adult (ICD-10 - Z68.41) [facility] Other 09-27-2023 Evaluation note* Encounter Date Diagnosis Assessment Notes Treatment Notes Treatment Clinical Notes Jan, Type 2 diabetes mellitus with diabetic chronic kidney disease (ICD-10 - E11.22) Pt here for appointment today with spouse, for [employer] training. [employer] training discussed, instructed on use and application. Patient brought in her own [employer] 2 reader which displays connected to a computer on the screen. Pt contacted [employer] for reader replacement. Pt also brought in new reader. New reader set up with pt. Instructed pt to send old reader back to [employer]. Pt states she will send old reader [...] spent on education by Rangel CANTU, RN [facility] Other 06-06-2023 Evaluation note* Encounter Date Diagnosis [...] On Bumex for volume management Avoid NSAIDs [facility] Other 04-03-2023 Evaluation note* Encounter Date Diagnosis Assessment Notes Treatment Notes Treatment Clinical Notes Aug, Dietary counseling and surveillance (ICD-10 - Z71.3) Maintaining a healthful weight material was printed see above Aug, Type 2 diabetes mellitus (ICD-10 - E11.9) Type 2 diabetes material was printed 1. Controlled, Type 2 diabetes with A1c 6.5%. 2. Blood glucose levels stable. According to [employer] cgm download 08/06/2022-08/19/2022 Avg glucose 129. 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 (ICD-10 - [...] E11.649) Hypoglycemia material was printed see above [facility] Other 09-12-2022 Evaluation note* Encounter Date Diagnosis Assessment Notes Treatment Notes Treatment Clinical Notes Jan, Edema (ICD-10 - R60.9) [facility] Other 08-24-2022 Evaluation note* Encounter Date Diagnosis Assessment Notes Treatment Notes Treatment Clinical Notes Dec, Type 2 diabetes mellitus with diabetic chronic kidney disease (ICD-10 - E11.22) Dec, Type 2 diabetes mellitus (ICD-10 - E11.9) [facility] Other 06-17-2022 Evaluation note* Encounter Date Diagnosis Assessment Notes Treatment Notes Treatment Clinical Notes Oct, Vitamin B 12 deficiency (ICD-10 - E53.8) [facility] Other 06-07-2022 Evaluation note* Encounter Date Diagnosis [...] arthritis and sleep apnea has been addressed. [facility] Other 06-06-2022 Evaluation note* Encounter Date Diagnosis Assessment Notes Treatment Notes Treatment Clinical Notes Oct, Type 2 diabetes mellitus with diabetic chronic kidney disease (ICD-10 - E11.22) [facility] Other 04-25-2022 Evaluation note* Encounter Date Diagnosis Assessment Notes Treatment Notes Treatment Clinical Notes Aug, Type 2 diabetes mellitus with diabetic chronic kidney disease (ICD-10 - E11.22) [facility] Other 01-05-2022 Evaluation note* Encounter Date Diagnosis Assessment Notes Treatment Notes Treatment Clinical Notes May, Dietary counseling and surveillance (ICD-10 - Z71.3) Maintaining a healthful weight material was printed see above May, Type 2 diabetes mellitus (ICD-10 - E11.9) Type 2 diabetes material was printed 1. Controlled, Type 2 diabetes with A1c of 5.7% 2. Blood glucose levels stable. According to [employer] 2 cgm download 05/10/2021-05/23/2021 Avg glucose 128. [...] I10) About hypertension material was printed May, [facility] current use of insulin (ICD-10 - Z79.4) [...] E11.649) Hypoglycemia material was printed see above [facility] Other 01-17-2021 History general Narrative - Reported* Type Description Date Medical History DM II Medical History HYPERTENSION Medical History HYPERLIPIDEMIA Medical History Hypothyroidism Medical History Covid 19 positive 06/04/2020 Surgical History HYSTERECTOMY 1966 Surgical History HERNIA REPAIR 1985 Surgical History BILATERAL KNEE REPLACEMENT 2003 Surgical History GALLBLADDER 2014 Surgical History tonsillectomy Surgical History cyst removal Surgical History appendectomy Surgical History bladder suspension, unspecified Surgical History Foot Surgery Hospitalization History SEE ABOVE Hospitalization History COPD 07/08 [facility] Other Evaluation noteNo InformationNortDiJiPOP Other Evaluation note* Diagnosis PAF (paroxysmal 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) ([facility] Primary Atrial fibrillation [facility]* Diagnosis PAF (paroxysmal 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) ([facility] Primary Atrial fibrillation [facility] SystemEvaluation note* Diagnosis PAF (paroxysmal 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) ([facility] Primary Atrial fibrillation Ventricular premature beats Other premature beats Sinus pause Benign hypertensive heart disease without congestive heart failure Benign hypertensive heart disease without heart failure [facility] current use of amiodarone documented [facility]* Diagnosis PAF (paroxysmal 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) ([facility] Primary Atrial fibrillation [facility]* Diagnosis PAF (paroxysmal 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) ([facility] Primary Atrial fibrillation documented in this encounter [facility]* Diagnosis PAF (paroxysmal 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) ([facility] Primary Atrial fibrillation Benign hypertensive heart disease without congestive heart failure Benign hypertensive heart disease without heart failure 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 ([facility]) Shortness of breath COPD with acute exacerbation ([facility]) documented in this encounter [facility] note* Diagnosis PAF (paroxysmal 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) ([facility] [facility])- Primary Atrial fibrillation documented in this encounter [facility] SystemEvaluation noteNo assessment information available [facility] Work Phone: evaluation note* Diagnosis PAF (paroxysmal 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) ([facility]-H[facility])- Primary Atrial fibrillation documented in this encounter [facility] SystemEvaluation note* Diagnosis Shortness of breath Chronic obstructive pulmonary disease, unspecified COPD type ([facility]) documented in this encounter [facility] SystemEvaluation note* Diagnosis PAF (paroxysmal 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) ([facility]-H[facility])- Primary Atrial fibrillation Hyperlipidemia, unspecified hyperlipidemia type Benign hypertensive heart disease without congestive heart failure Benign hypertensive heart disease without heart failure documented in this encounter [facility] SystemEvaluation note* Diagnosis Onset Date Resolution Status Anemia acute BMI 50.0-59.9, adult acute Edema acute Hyperlipidemia acute [id number] acute Stage 3b chronic kidney disease (CKD) acute Type 2 diabetes mellitus wit h diabetic chronic kidney disease acute [facility] Work Phone: evaluwztyv note* Diagnosis Onset Date Resolution Status Anemia acute BMI 50.0-59.9, adult acute Edema acute Hyperlipidemia acute [id number] acute Stage 3b chronic kidney disease (CKD) acute Type 2 diabetes mellitus wit h diabetic chronic kidney disease acute Diabetes acute Dietary counseling and surveillance acute HTN (hypertension) acute Hyperlipidemia acute Vitamin B 12 deficiency acut e [facility] Work Phone: Evaluation note* Diagnosis Onset Date Resolution Status Anemia acute BMI 50.0-59.9, adult acute Edema acute Hyperlipidemia acute [id number] acute Stage 3b chronic kidney disease (CKD) acute Type 2 diabetes mellitus wit h diabetic chronic kidney disease acute BMI 40.0-44.9, adult acute Diabetes acute Dietary counseling and surveillance acute HTN (hypertension) acute Hyperlipidemia acute Vitamin B 12 deficiency acut e [facility] Work Phone: Evaluation note* Diagnosis Onset Date Resolution Status Anemia acute BMI 50.0-59.9, adult acute Edema acute Hyperlipidemia acute [id number] acute Stage 3b chronic kidney disease (CKD) acute Type 2 diabetes mellitus wit h diabetic chronic kidney disease acute BMI 40.0-44.9, adult acute Diabetes acute Dietary counseling and surveillance acute HTN (hypertension) acute Hyperlipidemia acute Vitamin B 12 deficiency acut e Anemia acute Edema acute Fibrillary glomerulonephritis acute Hyperparathyroidism acute [id number] acute Stage 3b chronic kidney disease (CKD) acute Type 2 diabetes mellitus wit h diabetic chronic kidney disease acute [facility] Work Phone: evaluation note* Diagnosis Onset Date Resolution Status Anemia acute BMI 50.0-59.9, adult acute Edema acute Hyperlipidemia acute [id number] acute Stage 3b chronic kidney disease (CKD) acute Type 2 diabetes mellitus wit h diabetic chronic kidney disease acute BMI 40.0-44.9, adult acute Diabetes acute Dietary counseling and surveillance acute HTN (hypertension) acute Hyperlipidemia acute Vitamin B 12 deficiency acut e Anemia acute Edema acute Fibrillary glomerulonephritis acute Hyperparathyroidism acute [id number] acute Stage 3b chronic kidney disease (CKD) acute Type 2 diabetes mellitus wit h diabetic chronic kidney disease acute Anemia acute Edema acute Fibrillary glomerulonephritis acute Hyperparathyroidism acute [id number] acute Stage 3b chronic kidney disease (CKD) acute Type 2 diabetes mellitus wit h diabetic chronic kidney disease acute [facility] Work Phone: evaluation note* Diagnosis Onset Date Resolution Status Anemia acute BMI 50.0-59.9, adult acute Edema acute Hyperlipidemia acute [id number] acute Stage 3b chronic kidney disease (CKD) acute Type 2 diabetes mellitus wit h diabetic chronic kidney disease acute BMI 40.0-44.9, adult acute Diabetes acute Dietary counseling and surveillance acute HTN (hypertension) acute Hyperlipidemia acute Vitamin B 12 deficiency acut e Anemia acute Edema acute Fibrillary glomerulonephritis acute Hyperparathyroidism acute [id number] acute Stage 3b chronic kidney disease (CKD) acute Type 2 diabetes mellitus wit h diabetic chronic kidney disease acute Anemia acute Edema acute Fibrillary glomerulonephritis acute Hyperparathyroidism acute [id number] acute Stage 3b chronic kidney disease (CKD) acute Type 2 diabetes mellitus wit h diabetic chronic kidney disease acute Anemia acute Edema acute Fibrillary glomerulonephritis acute Hyperparathyroidism acute [id number] acute Stage 3b chronic kidney disease (CKD) acute Type 2 diabetes mellitus wit h diabetic chronic kidney disease acute [facility] Work Phone: Evaluation note* Diagnosis Onset Date Resolution Status Anemia acute BMI 50.0-59.9, adult acute Edema acute Hyperlipidemia acute [id number] acute Stage 3b chronic kidney disease (CKD) acute Type 2 diabetes mellitus wit h diabetic chronic kidney disease acute BMI 40.0-44.9, adult acute Diabetes acute Dietary counseling and surveillance acute HTN (hypertension) acute Hyperlipidemia acute Vitamin B 12 deficiency acut e Anemia acute Edema acute Fibrillary glomerulonephritis acute Hyperparathyroidism acute [id number] acute Stage 3b chronic kidney disease (CKD) acute Type 2 diabetes mellitus wit h diabetic chronic kidney disease acute Anemia acute Edema acute Fibrillary glomerulonephritis acute Hyperparathyroidism acute [id number] acute Stage 3b chronic kidney disease (CKD) acute Type 2 diabetes mellitus wit h diabetic chronic kidney disease acute Anemia acute Edema acute Fibrillary glomerulonephritis acute Hyperparathyroidism acute [id number] acute Stage 3b chronic kidney disease (CKD) acute Type 2 diabetes mellitus wit h diabetic chronic kidney disease acute Anemia acute Edema acute Fibrillary glomerulonephritis acute Hyperkalemia acute Hyperparathyroidism acute [id number] acute Stage 3b chronic kidney disease (CKD) acute Type 2 diabetes mellitus wit h diabetic chronic kidney disease acute [facility] Work Phone: Hospital Discharge instructionsAmbulatory Orders* AMB POC INR Time Frame: 2 Months, Location: Determined By Patient [facility] Work Phone: InstructionsNot on filedocumented in this [...] [facility] Summary Purpose Family History Relationship Condition Age at Onset Recorded Date/T elmer father Malignant neoplasm Unknown Unknown Not Specified Hypertension Unknown Diabetes mellitus Unknown natural son Malignant neoplasm Unknown sister Unknown Advance Directives Latest Code Status on File Code Status [...] Referral Specialty Diagnoses / Procedures Referred By Nydia t Referred To Contact Diagnoses PAF (paroxysmal 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) ([facility]-HCC) Sinus pause Procedures Wireless Telemetry (In Office) Tr Jimenez, SUPERVISOR [employer]-MAINFRAME PROGRAMMER [address] [place] [address] Referral ID Status Reason Start Date Expiration Date V isits Requested Visits Authorized [id number] Pending Review 05/28/2023 05/27/2024 1 1 Chief Complaint and Reason for Visit Chief Complaint Renal 6 Month Follow Up Chief Complaint RENAL 3 month Follow up Reason for Visit Anemia BMI 50.0-59.9, adult Edema Hyperlipidemia [id number] 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 Chief Complaint RENAL 3 month Follow up kusum reader Reason for Visit Anemia BMI 50.0-59.9, adult Edema Hyperlipidemia [id number] 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 Diabetes Dietary counseling and surveillance HTN (hypertension) Hyperlipidemia Vitamin B 12 deficiency Chief Complaint RENAL 3 month Follow up kusum reader N18.32 R60.9 D64.9 Z68.43 E78.5 E11.22 I12.9 Reason for Visit Anemia BMI 50.0-59.9, adult Edema Hyperlipidemia [id number] 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 BMI 40.0-44.9, adult Diabetes Dietary counseling and surveillance HTN (hypertension) Hyperlipidemia Vitamin B 12 deficiency Chief Complaint RENAL 3 month Follow up kusum reader N18.32 R60.9 D64.9 Z68.43 E78.5 E11.22 I12.9 RENAL F/U Reason for Visit Anemia BMI 50.0-59.9, adult Edema Hyperlipidemia [id number] 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 BMI 40.0-44.9, adult Diabetes Dietary counseling and surveillance HTN (hypertension) Hyperlipidemia Vitamin B 12 deficiency Anemia Edema Fibrillary glomerulonephritis Hyperparathyroidism [id number] 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 Chief Complaint RENAL 3 month Follow up kusum reader N18.32 R60.9 D64.9 Z68.43 E78.5 E11.22 I12.9 RENAL F/U 3 week f/u Reason for Visit Anemia BMI 50.0-59.9, adult Edema Hyperlipidemia [id number] 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 BMI 40.0-44.9, adult Diabetes Dietary counseling and surveillance HTN (hypertension) Hyperlipidemia Vitamin B 12 deficiency Anemia Edema Fibrillary glomerulonephritis Hyperparathyroidism [id number] 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 Anemia Edema Fibrillary glomerulonephritis Hyperparathyroidism [id number] 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 Chief Complaint RENAL 3 month Follow up kusum reader N18.32 R60.9 D64.9 Z68.43 E78.5 E11.22 I12.9 RENAL F/U 3 week f/u RENAL 2 MONTH F/U Reason for Visit Anemia BMI 50.0-59.9, adult Edema Hyperlipidemia [id number] 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 BMI 40.0-44.9, adult Diabetes Dietary counseling and surveillance HTN (hypertension) Hyperlipidemia Vitamin B 12 deficiency Anemia Edema Fibrillary glomerulonephritis Hyperparathyroidism [id number] 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 Anemia Edema Fibrillary glomerulonephritis Hyperparathyroidism [id number] 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 Anemia Edema Fibrillary glomerulonephritis Hyperparathyroidism [id number] 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 Chief Complaint RENAL 3 month Follow up kusum reader N18.32 R60.9 D64.9 Z68.43 E78.5 E11.22 I12.9 RENAL F/U 3 week f/u RENAL 2 MONTH F/U RENAL 3 WK INJ RETACRIT Reason for Visit Anemia BMI 50.0-59.9, adult Edema Hyperlipidemia [id number] 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 BMI 40.0-44.9, adult Diabetes Dietary counseling and surveillance HTN (hypertension) Hyperlipidemia Vitamin B 12 deficiency Anemia Edema Fibrillary glomerulonephritis Hyperparathyroidism [id number] 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 Anemia Edema Fibrillary glomerulonephritis Hyperparathyroidism [id number] 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 Anemia Edema Fibrillary glomerulonephritis Hyperparathyroidism [id number] 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 Anemia Edema Fibrillary glomerulonephritis Hyperkalemia Hyperparathyroidism [id number] 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 Additional Source Comments REASON FOR VISIT (unrecogniz ed section and content) Reason Comments Follow-up EST PT IP TTH ATRIAL FIB-PER SUELLEN SCHED W/PT Reason Comments Follow-up HOSP F/U 05/08-05/10 TTH-L/S MBE-LABS 05/10TT-CHEST XRAY -ECHO 05/09TT-SCHD APPT W/PT Reason Comments Follow-up EST PT 9 WEEK FU Med Refill Amiodarone and crest or INFORMATION SOURCE (unrecogn ized section and content) DATE CREATED AUTHOR 10/27/2022 [facility] DATE CREATED AUTHOR AUTHOR'S ORGANIZ ATION 09/08/2023 [facility] DATE CREATED AUTHOR AUTHOR'S ORGANIZ ATION 09/13/2023 [facility] EPIC DATE CREATED AUTHOR AUTHOR'S ORGANIZ ATION 10/23/2023 [facility] Care Teams (unrecognized sec tion and content) Team Status: Active Member Role Status Dates ALFREDO Jiang Primary Care Provider Active Team Status: Inactive Member Role Status Dates ALFREDO Jiang Primary Care Provider Active Start: August 13, 2023 End: August 13, 2023 Rin Sarmiento MD Attending Provider Active Star t: August 13, 2023 End: August 13, 2023 Team Status: Inactive Member Role Status Dates ALFREDO Jiang Primary Care Provider Active Start: August 20, 2023 End: August 20, 2023 Chester Lin APRN Attending Provider Active Start: August 20, 2023 End: August 20, 2023 Team Status: Inactive Member Role Status Dates ALFREDO Jiang Primary Care Provider Active Start: September 01, 2023 End: September 01, 2023 Rin Sarmiento MD Attending Provider Active Star t: September 01, 2023 End: September 01, 2023 Team Status: Inactive Member Role Status Dates ALFREDO Jiang Primary Care Provider Active Start: September 09, 2023 End: September 09, 2023 Rin Sarmiento MD Attending Provider Active Star t: September 09, 2023 End: September 09, 2023 Team Status: Active Member Role Status Dates Anika Deepa Elaine , ROASTERMAN-C Primary Care Provider Active Start: September 16, 2023 Rin Sarmiento MD Attending Provider Active Star t: September 16, 2023 Team Status: Inactive Member Role Status Dates Anika Henry ROASTERMAN-C Primary Care Provider Active Start: September 23, 2023 End: September 23, 2023 Rin Sarmiento MD Attending Provider Active Star t: September 23, 2023 End: September 23, 2023 Team Status: Active Member Role Status Dates Rin Sarmiento MD Attending Provider Active Star t: October 07, 2023 Anika Henry ROASTERMAN-C Primary Care Provider Active Start: October 07, 2023 Team Status: Inactive Member Role Status Dates Anika Henry ROASTERMAN-C Primary Care Provider Active Start: October 15, 2023 End: October 15, 2023 Rin Sarmiento MD Attending Provider Active Star t: October 15, 2023 End: October 15, 2023 Team Status: Active Member Role Status Dates Anika Henry ROASTERMAN-C Primary Care Provider Active Start: October 30, 2023 Rin Sarmiento MD Attending Provider Active Star t: October 30, 2023 Team Status: Inactive Member Role Status Dates Anika Henry ROASTERMAN-C Primary Care Provider Active Start: November 05, 2023 End: November 05, 2023 Rin Sarmiento MD Attending Provider Active Star t: November 05, 2023 End: November 05, 2023 Team Status: Active Member Role Status Dates Anika Henry ROASTERMAN-C Primary Care Provider Active Team Status: Active Member Role Status Dates Anika Henry ROASTERMAN-C Primary Care Provider Active Start: August 01, 2023 Rin Sarmiento MD Attending Provider Active Star t: August 01, 2023 Team Status: Active Member Role Status Dates Anika Henry ROASTERMAN-C Primary Care Provider Active Start: August 05, 2023 Rin Sarmiento MD Attending Provider Active Star t: August 05, 2023 Team Status: Inactive Member Role Status Dates Anika Henry ROASTERMAN-C Primary Care Provider Active Start: August 13, 2023 End: August 13, 2023 Rin Sarmiento MD Attending Provider Active Star t: August 13, 2023 End: August 13, 2023 Word Processing Operator Relationship Specialty Start Date End Date Anika Henry APRN-MAINFRAME PROGRAMMER [address], [place] [address] PCP - General Family Medicine 04/29/23 Word Processing Operator Relationship Specialty Start Date End Date Anika Henry APRN-MAINFRAME PROGRAMMER [address], [place] [address] PCP - General Family Medicine 04/29/23 Word Processing Operator Relationship Specialty Start Date End Date Anika Henry APRN-MAINFRAME PROGRAMMER [address], [place] [address] PCP - General Family Medicine 04/29/23 Word Processing Operator Relationship Specialty Start Date End Date Anika Henry APRN-MAINFRAME PROGRAMMER [address], [place] [address] PCP - General Family Medicine 04/29/23 Word Processing Operator Relationship Specialty Start Date End Date Anika Henry APRN-MAINFRAME PROGRAMMER [address], [place] [address] PCP - General Family Medicine 04/29/23 Word Processing Operator Relationship Specialty Start Date End Date Anika Henry APRN-MAINFRAME PROGRAMMER [address], [place] [address] PCP - General Family Medicine 04/29/23 Word Processing Operator Relationship Specialty Start Date End Date Anika Henry SUPERVISOR [employer]-MAINFRAME PROGRAMMER [address], [place] [address] PCP - General Family Medicine 04/29/23 Team Status: Inactive Member Role Status Dates Rin Sarmiento MD Attending Provider Active Star t: April 22, 2023 End: April 22, 2023 Word Processing Operator Relationship Specialty Start Date End Date Elaine Anika SJOSÉN-MAINFRAME PROGRAMMER [address] [facility], [place] [address] PCP - [facility] Family Medicine 04/29/23 Word Processing Operator Relationship Specialty Start Date End Date Elaine Anika S SUPERVISOR [employer]-MAINFRAME PROGRAMMER [address] [facility], [place] [address] PCP - [facility] Medicine 04/29/23 Team Status: Inactive Member Role Status Dates Anika Henry NP-C Primary Care Provider Active Start: August 20, 2023 End: August 20, 2023 Chester Lin APRN Attending Provider Active Start: August 20, 2023 End: August 20, 2023 Team Status: Inactive Member Role Status Dates Anika Henry NP-C Primary Care Provider Active Start: September 01, 2023 End: September 01, 2023 Rin Sarmiento MD Attending Provider Active Star t: September 01, 2023 End: September 01, 2023 Team Status: Inactive Member Role Status Dates Anika Henry NP-C Primary Care Provider Active Start: September 09, 2023 End: September 09, 2023 Rin Sarmiento MD Attending Provider Active Star t: September 09, 2023 End: September 09, 2023 Team Status: Active Member Role Status Dates Anika Henry NP-C Primary Care Provider Active Start: September 16, 2023 Rin Sarmiento MD Attending Provider Active Star t: September 16, 2023 Team Status: Inactive Member Role Status Dates Anika Henry NP-C Primary Care Provider Active Start: September 23, 2023 End: September 23, 2023 Rin Sarmiento MD Attending Provider Active Star t: September 23, 2023 End: September 23, 2023 Team Status: Active Member Role Status Dates Rin Sarmiento MD Attending Provider Active Star t: October 07, 2023 ALFREDO Jiang Primary Care Provider Active Start: October 07, 2023 Team Status: Inactive Member Role Status Dates ALFREDO Jiang Primary Care Provider Active Start: October 15, 2023 End: October 15, 2023 Rin Sarmiento MD Attending Provider Active Star t: October 15, 2023 End: October 15, 2023 Team Status: Active Member Role Status Dates ALFREDO Jiang Primary Care Provider Active Start: October 30, 2023 Rin Sarmiento MD Attending Provider Active Star t: October 30, 2023 Team Status: Inactive Member Role Status Dates ALFREDO Jiang Primary Care Provider Active Start: November 05, 2023 End: November 05, 2023 Rin Sarmiento MD Attending Provider Active Star t: November 05, 2023 End: November 05, 2023 Goals (unrecognized section and content) Goals [...] BE BASED ON THE PRIMARY CLINICAL RECORDS. [employer] provides no warranty or guarantee of the accuracy or completeness of information in this document.
[2023-11-13 10:50] LABS: Hematocrit 30.1 % (36.0-48.0); Hemoglobin 8.9 g/dL (12.0-16.0); Mean Corpuscular HGB Conc 29.6 g/dL (29.9-35.2); Mean Corpuscular Hemoglobin 28.9 pg (26.7-34.0); Mean Corpuscular Volume 97.7 fL (81.0-99.0); Mean Platelet Volume 9.7 fL (9.5-13.5); Platelet Count 228 10^3/uL (150-450); Red Blood Count 3.08 10^6/uL (4.20-5.40); Red Cell Distribution Width 14.6 % (11.0-15.0)
[2023-11-13 11:22] LABS: Albumin Level 3.1 g/dL (3.4-5.0); Anion Gap 12.5; BUN Creatinine Ratio 19.5; Calcium 8.4 mg/dL (8.5-10.1); Carbon Dioxide 29.3 mmol/L (21.0-32.0); Chloride 106 mmol/L (98-107); Estimated GFR (African America 23 (>=60); Estimated GFR (Non-African Ame 19 (>=60); Glucose 97 mg/dL (74-106); Phosphorus 4.2 mg/dL (2.6-4.7); Potassium 4.8 mmol/L (3.5-5.1); Sodium 143 mmol/L (136-145)
== END 2023-11-13 10:14 | disposition home or self-care (01) ==
LOC: LAB 10:14
PROVIDERS: PCP Nurse Practitioner Family; Visit Provider Internal Medicine Nephrology
DX: E87.5 Hyperkalemia (principal); E21.3 Hyperparathyroidism, unspecified; N05.9 Unspecified nephritic syndrome with unspecified morphologic changes; N18.32 Chronic kidney disease, stage 3b; D64.9 Anemia, unspecified; E11.22 Type 2 diabetes mellitus with diabetic chronic kidney disease
CPT/HCPCS: 36415; 80069; 85027

== ENCOUNTER 2023-11-27 14:14 | Outpatient (OUT) | payer MEDICARE, SELFPAY ==
[2023-11-27 15:16] LABS: Hematocrit 31.1 % (36.0-48.0); Hemoglobin 9.3 g/dL (12.0-16.0); Mean Corpuscular HGB Conc 29.9 g/dL (29.9-35.2); Mean Corpuscular Hemoglobin 29.5 pg (26.7-34.0); Mean Corpuscular Volume 98.7 fL (81.0-99.0); Mean Platelet Volume 9.9 fL (9.5-13.5); Platelet Count 195 10^3/uL (150-450); Red Blood Count 3.15 10^6/uL (4.20-5.40); Red Cell Distribution Width 14.7 % (11.0-15.0); White Blood Count 5.4 10^3/uL (4.0-11.0)
== END 2023-11-27 14:15 | disposition home or self-care (01) ==
LOC: LAB 14:15
PROVIDERS: PCP Nurse Practitioner Family; Visit Provider Internal Medicine Nephrology
DX: D64.9 Anemia, unspecified (principal)
CPT/HCPCS: 36415; 85027

== ENCOUNTER 2023-12-23 10:02 | Outpatient (OUT) | payer MEDICARE, SELFPAY ==
--- OUTSIDE RECORDS SUMMARY | 2023-12-23 10:18 | XMS_ITS | CCD ---
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 PROCRERAT, FLAKO, MG, PTH, PT, CBCNO, PTT, URMACRERAT, FE and TIBC #### [address] pH (U) 7.0 [pH] Normal 5.0-9.0 [facility] Comment on above: Order Comment: Name Collection Type:: Clean-Voided Midstream Performed By: #### V [id number], BHANU, RENAL, [id number], ADDONUAPLUS, PROCRERAT, FLAKO, MG, PTH, PT, CBCNO, PTT, URMACRERAT, FE and TIBC #### [address] Protein (U) [Mass/Vol] 300 mg/dL High Negative Th e [facility] Comment on above: Order Comment: Name Collection Type:: Clean-Voided Midstream Performed By: #### V [id number], BHANU, RENAL, [id number], ADDONUAPLUS, PROCRERAT, FLAKO, MG, PTH, PT, CBCNO, PTT, URMACRERAT, FE and TIBC #### [address] RBC,Urine 50-100 High 0-4 [facility] Comment on above: Order Comment: Name Collection Type:: Clean-Voided Midstream Performed By: #### V [id number], BHANU, RENAL, [id number], ADDONUAPLUS, PROCRERAT, FLAKO, MG, PTH, PT, CBCNO, PTT, URMACRERAT, FE and TIBC #### [address] Specificy [place],Urine 1.015 Normal 1.001-1.03 0 [facility] Comment on above: Order Comment: Name Collection Type:: Clean-Voided Midstream Performed By: #### V [id number], BHANU, RENAL, [id number], ADDONUAPLUS, PROCRERAT, FLAKO, MG, PTH, PT, CBCNO, PTT, URMACRERAT, FE and TIBC #### [address] Squamous Epithelial Cell,Urine 0-1 Normal 0-2 [facility] Comment on above: Order Comment: Name Collection Type:: Clean-Voided Midstream Performed By: #### V [id number], BHANU, RENAL, [id number], ADDONUAPLUS, PROCRERAT, FLAKO, MG, PTH, PT, CBCNO, PTT, URMACRERAT, FE and TIBC #### [address] Urobilinogen,Urine Normal Normal Normal [facility] Comment on above: Order Comment: Name Collection Type:: Clean-Voided Midstream Performed By: #### V [id number], BHANU, RENAL, [id number], ADDONUAPLUS, PROCRERAT, FLAKO, MG, PTH, PT, CBCNO, PTT, URMACRERAT, FE and TIBC #### [address] WBC,Urine 1-2 Normal 0-4 [facility] Comment on above: Order Comment: Name Collection Type:: Clean-Voided Midstream Performed By: #### V [id number], BHANU, RENAL, [id number], ADDONUAPLUS, PROCRERAT, FLAKO, MG, PTH, PT, CBCNO, PTT, URMACRERAT, FE and TIBC #### [address] Erythrocyte distribution wid th Auto (RBC) [Ratio]Ordered By: Rin Sarmiento on 09-01-2023 Erythrocyte distribution width (RBC) [Ratio] 14.7 % 11.9-15.3 [facility] Ferritinon 09-01-2023 Ferritin [Mass/Vol] 16.5 ng/mL Normal 11.0-306.8 [facility] Comment on above: Performed By: #### V [id number], BHANU, RENAL, [id number], ADDONUAPLUS, PROCRERAT, FLAKO, MG, PTH, PT, CBCNO, PTT, URMACRERAT, FE and TIBC #### [address] [place] [address] [facility] Ferritin [Mass/volume] in Se rum or PlasmaOrdered By: Rin Sarmiento on 09-01-2023 Ferritin [Mass/Vol] 16.5 ng/mL 11.0-306.8 [facility] Folate [Mass/volume] in Seru m or PlasmaOrdered By: Rin Sarmiento on 09-01-2023 Folate [Mass/Vol] 16.5 ng/mL >5.9 [facility] Comment on above: Folate reference ran ge: >5.9 ng/mlThe WHO technical consultation on folate and vitamin [id number] has determined that folate concentrations lessthan 4 ng/ml are considered deficient. Glucose [Mass/volume] in Ser um or PlasmaOrdered By: Rin Sarmiento on 09-01-2023 Glucose [Mass/Vol] 121 mg/dL High 70-100 [facility] Comment on above: ADA recommended refe rence rangeRandom Glucose Reference Range is dependent on time and content of last meal. Glucose of more than 200 mg/dL in a nonstressed, ambulatory subject supports the diagnosis of Diabetes Mellitus. Hematocrit Auto (Bld) [Volum e fraction]Ordered By: Rin Sarmiento on 09-01-2023 Hematocrit (Bld) [Volume fraction] 25.0 % Low 34.0-46.4 [facility] Hemoglobin [Mass/volume] in BloodOrdered By: Rin Sarmiento on 09-01-2023 Hemoglobin (Bld) [Mass/Vol] 8.0 g/dL Low 11.8-15.4 [facility] Hemogram CBC Without Diffon 09-01-2023 Erythrocyte distribution width (RBC) [Ratio] 14.7 % Normal 11.9-15.3 [facility] Comment on above: Performed By: #### V [id number], BHANU, RENAL, [id number], ADDONUAPLUS, PROCRERAT, FLAKO, MG, PTH, PT, CBCNO, PTT, URMACRERAT, FE and TIBC #### [facility] [address] [id number] [facility] Hematocrit (Bld) [Volume fraction] 25.0 % Low 34.0-46.4 [facility] Comment on above: Performed By: #### V [id number], BHANU, RENAL, [id number], ADDONUAPLUS, PROCRERAT, FLAKO, MG, PTH, PT, CBCNO, PTT, URMACRERAT, FE and TIBC #### [address] Hemoglobin (Bld) [Mass/Vol] 8.0 g/dL Low 11.8-15.4 [facility] Comment on above: Performed By: #### V [id number], BHANU, RENAL, [id number], ADDONUAPLUS, PROCRERAT, FLAKO, MG, PTH, PT, CBCNO, PTT, URMACRERAT, FE and TIBC #### [address] MCH (RBC) [Entitic mass] 29.3 pg Normal 24.7-34.3 [facility] Comment on above: Performed By: #### V [id number], BHANU, RENAL, [id number], ADDONUAPLUS, PROCRERAT, FLAKO, MG, PTH, PT, CBCNO, PTT, URMACRERAT, FE and TIBC #### [address] MCV (RBC) [Entitic vol] 92.0 fL Normal 80-100 [facility] Comment on above: Performed By: #### V [id number], BHANU, RENAL, [id number], ADDONUAPLUS, PROCRERAT, FLAKO, MG, PTH, PT, CBCNO, PTT, URMACRERAT, FE and TIBC #### [address] Mean Corpuscular HGB Conc 31.9 g/dL Low 32.0-35.0 [facility] Comment on above: Performed By: #### V [id number], BHANU, RENAL, [id number], ADDONUAPLUS, PROCRERAT, FLAKO, MG, PTH, PT, CBCNO, PTT, URMACRERAT, FE and TIBC #### [address] [place] [address] [place] Platelet mean volume (Bld) [Entitic vol] 8.1 fL Normal 6.3-10.[address] [facility] Comment on above: Result Comment: PERF ORMED BY: [place] [address] PATHOLOGIST HOUSEMAN JEWELL ROWLEY M.D. Performed By: #### V [id number], BHANU, RENAL, [id number], ADDONUAPLUS, PROCRERAT, FLAKO, MG, PTH, PT, CBCNO, PTT, URMACRERAT, FE and TIBC #### [address] Platelets (Bld) [#/Vol] 214 10*3/uL Normal 150-450 [facility] Comment on above: Performed By: #### V [id number], BHANU, RENAL, [id number], ADDONUAPLUS, PROCRERAT, FLAKO, MG, PTH, PT, CBCNO, PTT, URMACRERAT, FE and TIBC #### [address] RBC (Bld) [#/Vol] 2.72 10*6/uL Low 3.60-5.00 [facility] Comment on above: Performed By: #### V [id number], BHANU, RENAL, [id number], ADDONUAPLUS, PROCRERAT, FLAKO, MG, PTH, PT, CBCNO, PTT, URMACRERAT, FE and TIBC #### [address] WBC (Bld) [#/Vol] 4.7 10*3/uL Normal 3.8-11.6 [facility] Comment on above: Performed By: #### V [id number], BHANU, RENAL, [id number], ADDONUAPLUS, PROCRERAT, FLAKO, MG, PTH, PT, CBCNO, PTT, URMACRERAT, FE and TIBC #### [address] INR in Platelet poor plasma by Coagulation assayOrdered By: Rin Sarmiento on 09-01-2023 INR Coag (PPP) [Relative time] 1.0 {INR} [facility] Comment on above: INR Therapeutic [...] on 09-01-2023 Iron [Mass/Vol] 122 ug/dL 50-212 [facility] Iron and TIBC Profileon 08-17 % Iron Saturation 33.9 % Normal 20-50 [facility] Comment on above: Performed By: #### V [id number], BHANU, RENAL, [id number], ADDONUAPLUS, PROCRERAT, FLAKO, MG, PTH, PT, CBCNO, PTT, URMACRERAT, FE and TIBC #### [facility] [address] [place] [address] [facility] Iron [Mass/Vol] 122 ug/dL Normal 50-212 [facility] Comment on above: Performed By: #### V [id number], BHANU, RENAL, [id number], ADDONUAPLUS, PROCRERAT, FLAKO, MG, PTH, PT, CBCNO, PTT, URMACRERAT, FE and TIBC #### [facility] [address] [place] [address] [facility] Total Iron Binding Capacity 360 ug/dL Normal 255-450 [facility] Comment on above: Performed By: #### V [id number], BHANU, RENAL, [id number], ADDONUAPLUS, PROCRERAT, FLAKO, MG, PTH, PT, CBCNO, PTT, URMACRERAT, FE and TIBC #### [facility] [address] [place] [address] [facility] Transferrin [Mass/Vol] 257 mg/dL Normal 203-362 [facility] Comment on above: Performed By: #### V [id number], BHANU, RENAL, [id number], ADDONUAPLUS, PROCRERAT, FLAKO, MG, PTH, PT, CBCNO, PTT, URMACRERAT, FE and TIBC #### [facility] [address] Iron binding capacity [Mass/ volume] in Serum or PlasmaOrdered By: Rin Sarmiento on 09-01-2023 Iron binding capacity [Mass/Vol] 360 ug/dL 255-450 [facility] Iron saturation [Mass Fracti on] in Serum or PlasmaOrdered By: Rin Sarmiento on 09-01-2023 Iron saturation [Mass fraction] 33.9 % 20-50 [facility] Ketones Auto test strip (U) [Mass/Vol]Ordered By: Mswalter Sarmiento on 09-01-2023 Ketones (U) [Mass/Vol] Negative Negative Fi [facility] Nahun 09-01-2023 L Specimen: Received: 09/01/23 Status: SOUChe Reliz Num: [id number] Spec Type: Surgical Subm Dr: Kj Urias Jr, DO Tissues: A Gross Only (RANDOM KIDNEY BX) Procedures: Level 1 Gross Age/ Patient Sex Location Account Attending Physician Margie Martínez 83/F CT [id number] Rin Sarmiento MD SPEC NUM: [id number] RECD: 09/01/23 STATUS: SOUChe REQ NUM: [id number] DEMAR: 09/01/[address]: Kj Urias Jr, DO ENTERED: 09/01/[address] [facility] [address]: SPEC TYPE: Surgical DEPT: S ORDERED: Level 1 Gross ORDERED: Level 1 Gross Supplemental Report Addendum 1 Entered: 09/03/23 Supplemental for findings of Consultation Report from [employer] in [facility]: DIAGNOSIS: -Fibrillary Glomerulopathy -Arterionephrosclerosis Note: -Please also see entire report on file for detailed description Addendum Signed (signature on file) Chris Lin MD 09/03/23 0933 Specimen: [id number] Received: 09/01/23 Status: MAIA Cohen Num: [id number] Spec Type: Surgical Subm Dr: Kj Urias Jr, Tissues: A Gross Only (RANDOM KIDNEY BX) Procedures: Level 1 Gross Patient: Margie Martínez [id number] (Continued) Specimen: [id number] Received: 09/01/23 (Continued) Signed (signature on file) Chris Lin MD 09/03/23 0929 Specimen: [id number] Received: 09/01/23 Status: MAIA Cohen Num: [id number] Spec Type: Surgical Subm Dr: Kj Urias Jr, DO Tissues: A Gross Only (RANDOM KIDNEY BX) Procedures: Level 1 Gross Patient: Dany Martínezguanaco [place] [id number] (Continued) Specimen: [id number] Received: 09/01/23 (Continued) Pathological Diagnosis Right kidney random core biopsy: -3 feldman-pink needle cores to be placed in special fixation solutions and to be forwarded to [employer] for final consultation interpretation. Gross only examination Gross Description In formalin labeled right kidney tissue are three feldman-pink needle cores ranging in size from 1.4 cm to 1.9 cm long x 0.1 cm average diameter. Submitted entirely in Lewis's solution and in 10% neutral buffered formalin. RG/CYC Clinical history: ANGELINA, proteinuria, hypoalbuminemia CPT Codes 01250 Specimen: [id number] Received: 09/01/23 Status: MAIA Cohen Num: [id number] Spec Type: Surgical Subm Dr: Kj Urias Jr, Tissues: A Gross Only (RANDOM KIDNEY BX) Procedures: Level 1 Gross Patient: Margie Martínez [id number] (Continued) Signed (signature on file) Chris Lin MD 09/03/23 4848 [place] [facility] Laboratory - UrinalysisOrder ed By: Rin Sarmiento on 09-01-2023 Hyaline casts LM Ql (Urine sed) 0-8 [LPF] 0-8 [facility] Leukocytes [#/volume] correc katy for nucleated erythrocytes in Blood by Automated counOrdered By: Rin Sarmiento on 09-01-2023 WBC corrected for nucl RBC Auto (Bld) [#/Vol] 4.7 10*3/uL 3.8-11.6 [facility] MCH Auto (RBC) [Entitic mass ]Ordered By: Rin Sarmiento on 09-01-2023 MCH (RBC) [Entitic mass] 29.3 pg 24.7-34.3 [facility] MCHC Auto (RBC) [Mass/Vol]Or dered By: Rin Sarmiento on 09-01-2023 MCHC (RBC) [Mass/Vol] 31.9 g/dL Low 32.0-35.0 [facility] MCV Auto (RBC) [Entitic vol] Ordered By: Rin Sarmiento on 09-01-2023 MCV (RBC) [Entitic vol] 92.0 fL 80-100 [facility] Magnesiumon 09-01-2023 Magnesium [Mass/Vol] 1.9 mg/dL Normal 1.9-2.7 [facility] Comment on above: Performed By: #### V [id number], BHANU, RENAL, [id number], ADDONUAPLUS, PROCRERAT, FLAKO, MG, PTH, PT, CBCNO, PTT, URMACRERAT, FE and TIBC #### [facility] [address] [place] [address] Magnesium [Mass/volume] in S adriana or PlasmaOrdered By: Rin Sarmiento on 09-01-2023 Magnesium [Mass/Vol] 1.9 mg/dL 1.9-2.7 [facility] MicroAlb Creat Ratio,Uon Albumin DL <= 20 mg/L (U) [Mass/Vol] mg/dL High 0.0-1.8 [facility] Comment on above: Performed By: #### V [id number], BHANU, RENAL, [id number], ADDONUAPLUS, PROCRERAT, FLAKO, MG, PTH, PT, CBCNO, PTT, URMACRERAT, FE and TIBC #### [facility] [address] [place] [address] [place] Creatinine, Urine (Random) 52.0 mg/dL Normal [facility] Comment on above: Result Comment: No r eference range established Performed By: #### V [id number], BHANU, RENAL, [id number], ADDONUAPLUS, PROCRERAT, FLAKO, MG, PTH, PT, CBCNO, PTT, URMACRERAT, FE and TIBC #### [facility] [address] Microalbumin/Creatinin e Ratio Not performed Normal 0.0-30.0 [facility] Comment on above: Performed By: #### V [id number], BHANU, RENAL, [id number], ADDONUAPLUS, PROCRERAT, FLAKO, MG, PTH, PT, CBCNO, PTT, URMACRERAT, FE and TIBC #### [facility] [address] [place] [id number] [facility] Microalbumin [Mass/volume] i n UrineOrdered By: Rin Sarmiento on 09-01-2023 Albumin DL <= 20 mg/L (U) [Mass/Vol] mg/dL High 0.0-1.8 [facility] Nitrite Test strip Ql (U)Ord ered By: Rin Sarmiento on 09-01-2023 Nitrite Ql (U) Negative Negative [facility] No Panel InformationOrdered By: Rin Sarmiento on 09-01-2023 Estimated GFR (CKD-EPI) 24.043 mL/Min [facility] Creatinine Clearance (Chem 21.55 [facility] Parathyrin.intact [Mass/volu me] in Serum or PlasmaOrdered By: Rin Sarmiento on 09-01-2023 Parathyrin.intact [Mass/Vol] 188.2 pg/mL High [facility] Parathyroid Hormone Intacton 09-01-2023 Parathyroid Hormone Intact 188.2 pg/mL High [facility] Comment on above: Result Comment: PERF ORMED BY: [address] [place] [address] PATHOLOGIST HOUSEMAN JEWELL ROWLEY M.D. Performed By: #### V [id number], BHANU, RENAL, [id number], ADDONUAPLUS, PROCRERAT, FLAKO, MG, PTH, PT, CBCNO, PTT, URMACRERAT, FE and TIBC #### [facility] [address] [place], [place] [id number] [facility] Partial Thromboplastin Timeo n 09-01-2023 aPTT Coag (Bld) [Time] 30.5 s Normal 25.1-36.5 [facility] Comment on above: Result Comment: A he matocrit value greater than 55% may lead to inaccurate results in coagulation testing. Patients having hematocrit values >55% require a special collection tube for coagulation studies. Please contact the laboratory at [phone] for redraw instructions. PERFORMED BY: [place] [id number] PATHOLOGIST HOUSEMAN JEWELL ROWLEY M.D. Performed By: #### V [id number], BHANU, RENAL, [id number], ADDONUAPLUS, PROCRERAT, FLAKO, MG, PTH, PT, CBCNO, PTT, URMACRERAT, FE and TIBC #### [facility] [address] [place] [address] [facility] Phosphate [Mass/volume] in S adriana or PlasmaOrdered By: Rin Sarmiento on 09-01-2023 Phosphate [Mass/Vol] 4.2 mg/dL 2.5-4.5 [facility] Platelet mean volume Auto (B ld) [Entitic vol]Ordered By: Rin Sarmiento on 09-01-2023 Platelet mean volume (Bld) [Entitic vol] 8.1 fL 6.3-10.7 [facility] Platelets Auto (Bld) [#/Vol] Ordered By: Rin Sarmiento on 09-01-2023 Platelets (Bld) [#/Vol] 214 10*3/uL 150-450 [facility] Potassium [Moles/volume] in Serum or PlasmaOrdered By: Rin Sarmiento on 09-01-2023 Potassium [Moles/Vol] 4.7 mmol/L 3.5-5.1 [facility] Protein Auto test strip (U) [Mass/Vol]Ordered By: Rin Sarmiento on 09-01-2023 Protein (U) [Mass/Vol] 300 mg/dL High Negative [facility] Protein Creat Ratio Ur Rando mon 09-01-2023 Protein (U) [Mass/Vol] 199 mg/dL High 0-9 [facility] Comment on above: Performed By: #### V [id number], BHANU, RENAL, [id number], ADDONUAPLUS, PROCRERAT, FLAKO, MG, PTH, PT, CBCNO, PTT, URMACRERAT, FE and TIBC #### [facility] [address] Urine Protein/Creatinine Ratio 3827 mg/g{Cre} High 0-200 [facility] Comment on above: Performed By: #### V [id number], BHANU, RENAL, [id number], ADDONUAPLUS, PROCRERAT, FLAKO, MG, PTH, PT, CBCNO, PTT, URMACRERAT, FE and TIBC #### [facility] [address] Protein [Mass/volume] in Uri neOrdered By: Rin Sarmiento on 09-01-2023 Protein (U) [Mass/Vol] 199 mg/dL High 0-9 [facility] Prothrombin Time INRon 08-31 INR Coag (PPP) [Relative time] 1.0 {INR} Normal [facility] Comment on above: Result [...] 3 - 4.5 Performed By: #### V [id number], BHANU, RENAL, [id number], ADDONUAPLUS, PROCRERAT, FLAKO, MG, PTH, PT, CBCNO, PTT, URMACRERAT, FE and TIBC #### [facility] [address] PT Coag (PPP) [Time] 11.4 s Normal 9.0-12.9 [facility] Comment on above: Result Comment: A he matocrit value greater than 55% may lead to inaccurate results in coagulation testing. Patients having hematocrit values >55% require a special collection tube for coagulation studies. Please contact the laboratory at [phone] for redraw instructions. Performed By: #### V [id number], BHANU, RENAL, [id number], ADDONUAPLUS, PROCRERAT, FLAKO, MG, PTH, PT, CBCNO, PTT, URMACRERAT, FE and TIBC #### [place] [id number] [facility] Prothrombin time (PT)Ordered By: Rin Sarmiento on 09-01-2023 PT Coag (PPP) [Time] 11.4 s 9.0-12.9 [facility] Comment on above: A hematocrit value g reater than 55% may lead to inaccurate results in coagulation testing. Patients having hematocrit values >55% require a special collection tube for coagulation studies. Please contact the laboratory at [phone] for redraw instructions. RBC Auto (Bld) [#/Vol]Ordere d By: Rin Sarmiento on 09-01-2023 RBC (Bld) [#/Vol] 2.72 10*6/uL Low 3.60-5.00 [facility] Renal Function Panelon 08-31 Albumin [Mass/Vol] 3.6 g/dL Normal 3.5-5.7 [facility] Comment on above: Performed By: #### V [id number], BHANU, RENAL, [id number], ADDONUAPLUS, PROCRERAT, FLAKO, MG, PTH, PT, CBCNO, PTT, URMACRERAT, FE and TIBC #### [address] Anion gap [Moles/Vol] 9.2 mmol/L Normal 6.0-15.0 [facility] Comment on above: Performed By: #### V [id number], BHANU, RENAL, [id number], ADDONUAPLUS, PROCRERAT, FLAKO, MG, PTH, PT, CBCNO, PTT, URMACRERAT, FE and TIBC #### [facility] [address] Calcium [Mass/Vol] 8.9 mg/dL Normal 8.6-10.3 [facility] Comment on above: Performed By: #### V [id number], BHANU, RENAL, [id number], ADDONUAPLUS, PROCRERAT, FLAKO, MG, PTH, PT, CBCNO, PTT, URMACRERAT, FE and TIBC #### [facility] [address] Chloride [Moles/Vol] 107 mmol/L Normal 98-107 [facility] Comment on above: Performed By: #### V [id number], BHANU, RENAL, [id number], ADDONUAPLUS, PROCRERAT, FLAKO, MG, PTH, PT, CBCNO, PTT, URMACRERAT, FE and TIBC #### [facility] [address] CO2 [Moles/Vol] 30.5 mmol/L Normal 21.0-31.0 [facility] Comment on above: Performed By: #### V [id number], BHANU, RENAL, [id number], ADDONUAPLUS, PROCRERAT, FLAKO, MG, PTH, PT, CBCNO, PTT, URMACRERAT, FE and TIBC #### [address] Creatinine [Mass/Vol] 2.02 mg/dL High 0.60-1.20 [facility] Comment on above: Performed By: #### V [id number], BHANU, RENAL, [id number], ADDONUAPLUS, PROCRERAT, FLAKO, MG, PTH, PT, CBCNO, PTT, URMACRERAT, FE and TIBC #### [facility] [address] Creatinine Clr Calc Pharmacy 21.55 Normal [facility] Comment on above: Performed By: #### V [id number], BHANU, RENAL, [id number], ADDONUAPLUS, PROCRERAT, FLAKO, MG, PTH, PT, CBCNO, PTT, URMACRERAT, FE and TIBC #### [facility] [address] [place] [address] [place] GFR/1.73 sq M.predicted MDRD (S/P/Bld) [Vol rate/Area] 24.043 mL/min/{1.73_m2} Normal [facility] Comment on above: Performed By: #### V [id number], BHANU, RENAL, [id number], ADDONUAPLUS, PROCRERAT, FLAKO, MG, PTH, PT, CBCNO, PTT, URMACRERAT, FE and TIBC #### [address] Glucose [Mass/Vol] 121 mg/dL High 70-100 [facility] Comment on above: Result Comment: [facility] Glucose Reference Range is dependent on time and content of last meal. Glucose of more than 200 mg/dL in a nonstressed, ambulatory subject supports the diagnosis of Diabetes Mellitus. ADA recommended reference range Performed By: #### V [id number], BHANU, RENAL, [id number], ADDONUAPLUS, PROCRERAT, FLAKO, MG, PTH, PT, CBCNO, PTT, URMACRERAT, FE and TIBC #### [facility] [address] Phosphate [Mass/Vol] 4.2 mg/dL Normal 2.5-4.5 [facility] Comment on above: Performed By: #### V [id number], BHANU, RENAL, [id number], ADDONUAPLUS, PROCRERAT, FLAKO, MG, PTH, PT, CBCNO, PTT, URMACRERAT, FE and TIBC #### [address] Potassium [Moles/Vol] 4.7 mmol/L Normal 3.5-5.1 [facility] Comment on above: Performed By: #### V [id number], BHANU, RENAL, [id number], ADDONUAPLUS, PROCRERAT, FLAKO, MG, PTH, PT, CBCNO, PTT, URMACRERAT, FE and TIBC #### [facility] [address] Sodium [Moles/Vol] 142 mmol/L Normal 136-145 [facility] Comment on above: Performed By: #### V [id number], BHANU, RENAL, [id number], ADDONUAPLUS, PROCRERAT, FLAKO, MG, PTH, PT, CBCNO, PTT, URMACRERAT, FE and TIBC #### [facility] [address] Urea nitrogen [Mass/Vol] 32 mg/dL High 7-25 [facility] Comment on above: Performed By: #### V [id number], BHANU, RENAL, [id number], ADDONUAPLUS, PROCRERAT, FLAKO, MG, PTH, PT, CBCNO, PTT, URMACRERAT, FE and TIBC #### [address] Serum or plasma anion gap de terminationOrdered By: Rin Sarmiento on 09-01-2023 Anion gap [Moles/Vol] 9.2 mmol/L 6.0-15.0 [facility] Sodium [Moles/volume] in Ser um or PlasmaOrdered By: Rin Sarmiento on 09-01-2023 Sodium [Moles/Vol] 142 mmol/L 136-145 [facility] Sodium [Moles/volume] in Uri neOrdered By: Rin Sarmiento on 09-01-2023 Sodium (U) [Moles/Vol] 137 mmol/L [facility] Comment on above: No reference range e stablished Sodium, Urine (Random)on Sodium (U) [Moles/Vol] 137 mmol/L Normal Th e [facility] Comment on above: Result Comment: No r eference range established PERFORMED BY: [place] [address] PATHOLOGIST HOUSEMAN JEWELL ROWLEY M.D. Performed By: #### V [id number], BHANU, RENAL, [id number], ADDONUAPLUS, PROCRERAT, FLAKO, MG, PTH, PT, CBCNO, PTT, URMACRERAT, FE and TIBC #### [address] Specific gravity Auto test s trip (U) [Rel density]Ordered By: Rin Sarmiento on 09-01-2023 Specific gravity (U) [Rel density] 1.015 1.001-1.03 0 [facility] Squamous epithelial cells de tection in urine sediment by light microscopyOrdered By: Rin Sarmiento on 09-01-2023 Epithelial cells.squamous LM Ql (Urine sed) 0-1 [HPF] 0-2 [facility] Transferrin [Mass/volume] in Serum or PlasmaOrdered By: Rin Sarmiento on 09-01-2023 Transferrin [Mass/Vol] 257 mg/dL 203-362 [facility] Urea nitrogen [Mass/volume] in Serum or PlasmaOrdered By: Rin Sarmiento on 09-01-2023 Urea nitrogen [Mass/Vol] 32 mg/dL High 7-25 [facility] Urine bacteria detection by automated methodOrdered By: Rin Sarmiento on 09-01-2023 Bacteria Auto Ql (U) None seen None Seen [facility] Urine clarity by refractomet ry automatedOrdered By: Rin Sarmiento on 09-01-2023 Clarity Refractometry automated (U) Cloudy Abnormal Clear [facility] Urine glucose measurement by automated test strip (mass/volume)Ordered By: Rin Sarmiento on 09-01-2023 Glucose Auto test strip (U) [Mass/Vol] Normal mg/dL Normal [facility] Urine hemoglobin detection b y automated test stripOrdered By: Rin Sarmiento on 09-01-2023 Hemoglobin Auto test strip Ql (U) 1+ High Negative [facility] Urine leukocyte esterase det ection by automated test stripOrdered By: Rin Sarmiento on 09-01-2023 Leukocyte esterase Auto test strip Ql (U) Negative Negative [facility] Urine microalbumin/creatinin e mass ratioOrdered By: Rin Sarmiento on 09-01-2023 Albumin/Creatinine DL <= 20 mg/L (U) [Mass ratio] TNP [facility] Comment on above: Test not performed Urine protein/creatinine rat ioOrdered By: Rin Sarmiento on 09-01-2023 Protein/Creatinine (U) [Ratio] 3827 mg/g{Cre} High 0-200 [facility] Urobilinogen Auto test strip (U) [Mass/Vol]Ordered By: Rin Sarmiento on 09-01-2023 Urobilinogen (U) [Mass/Vol] Normal mg/dL Normal [facility] Vit. B12/Folate Profileon Cobalamin (Vitamin B12) [Mass/Vol] 862 pg/mL Normal 180-914 [facility] Comment on above: Performed By: #### V [id number], BHANU, RENAL, [id number], ADDONUAPLUS, PROCRERAT, FLAKO, MG, PTH, PT, CBCNO, PTT, URMACRERAT, FE and TIBC #### [facility] [address] Folate 16.5 ng/mL Normal >5.9 [facility] Comment on above: Result Comment: Arlen te reference range: >5.9 ng/ml The WHO technical consultation on folate and vitamin b12 deficiencies has determined that folate concentrations less than 4 ng/ml are considered deficient. Performed By: #### V [id number], BHANU, RENAL, [id number], ADDONUAPLUS, PROCRERAT, FLAKO, MG, PTH, PT, CBCNO, PTT, URMACRERAT, FE and TIBC #### [facility] [address] Vitamin B12 ser/plasOrdered By: Rin Sarmiento on 09-01-2023 Cobalamin (Vitamin B12) [Mass/Vol] 862 pg/mL 180-914 [facility] Vitamin D 25 Hydroxy Totalon 04-15-2024 Vitamin D 25 Hydroxy Total 18.3 ng/mL Low 30-100 [facility] Comment on above: Result Comment: YULY MIN D STATUS 25(OH)VITAMIN D RANGE (ng/mL) Deficient <20 Insufficient 20 to <30 Sufficient 30 to 100 Reference: Rell Grijalva, Xochitl WILLIAMSON, et al. Evaluation,treatment, and prevention of vitamin D deficiency; an Endocrine Society clinical practice guideline. JCEM. 2010; 96(7):1911-. PERFORMED BY: [facility] [address] [place] [address] PATHOLOGIST HOUSEMAN JEWELL ROWLEY M.D. Performed By: #### V [id number], BHANU, RENAL, [id number], ADDONUAPLUS, PROCRERAT, FLAKO, MG, PTH, PT, CBCNO, PTT, URMACRERAT, FE and TIBC #### [facility] [address] Vitamin D+Metabolites [Mass/ volume] in Serum or PlasmaOrdered By: Rin Sarmiento on 09-01-2023 Vitamin D+Metabolites [Mass/Vol] 18.3 ng/mL Low 30-100 [facility] Comment on above: VITAMIN D STATUS 25( [place])VITAMIN D RANGE (ng/mL) Deficient <20 Insufficient 20 to <30Sufficient 30 to 100Reference: Rell Grijalva, Xochitl WILLIAMSON, et al. Evaluation,treatment, and prevention of vitamin D deficiency; an Endocrine Society clinical practice guideline. JCEM. 2010; 96(7):1911-. pH Auto test strip (U)Ordere d By: Rin Sarmiento on 09-01-2023 pH (U) 7.0 [pH] 5.0-9.0 [facility] POCT Protime / INRon 024 INR Coag (PPP) [Relative time] 2.2 {INR} Abnormal 0.8 - 1.2 [facility] Interpretation and review of laboratory results Abnormal [facility] HbA1c HPLC (Bld) [Mass fract ion]on 08-20-2023 HbA1c (Bld) [Mass fraction] 5.7 % [facility] No Panel Informationon 08-19 Bedside Glucose 106 [facility] No Panel Informationon 08-04 Miscellaneous Test COMMENT . [facility] Comment on above: Test Ordered: [id number] Prot Electro+Interp, 24-Hr UrProtein,Total,Urine 132.1 mg/dL CB Reference Range: Not Estab.Prot,24hr calculated 2741 [H ] mg/24 hr CB Reference Range: 30-150Albumin, U 66.3 % CB Reference Range: .Tobfl-9-Wkerfbbk, U 7.5 % CB Reference Range: .Cfyrc-4-Xwtjhgtl, U 10.6 % CB Reference Range: .Beta Globulin, U 11.9 % CB Reference Range: .Gamma Globulin, U 3.7 % CB Reference Range: .M-Tr, % Note: % CB Not Observed Reference Range: Not ObservedM-Tr, mg/24 hr [employer]PER[employer] Reference Range: .Please note: Comment CB Reference Range: .Protein electrophoresis scan will follow via computer,mail, or apartment manager delivery.P E Interpretation, U Comment CB Reference Range: .The urine protein electrophoresis pattern reflects thepresence of specific higher molecular mass proteins withmoderate proteinuria. This pattern may be characterized asrepresenting a severe selective glomerular nephropathyindicating increased glomerular permeability. Monoclonalprotein is not apparent.Performed at: - [facility] [id number] Director: Deshaun Hunter PhD, Phone: [phone] Activated partial thrombopla stin time (aPTT) in platelet poor plasma by coagulation aon 08-01-2023 aPTT Coag (PPP) [Time] 38.6 s 22.3-36.2 [facility] Atypical perinuclear antineu trophil cytoplasmic antibodies measurementon 08-01-2023 Neutrophil cytoplasmic Ab.perinuclear.atypica l IF (S) [Titer] <1:20 titer Neg:<1:20 [facility] Comment on above: The atypical pANCA p attern has been observed in asignificant percentage of patients with ulcerative colitis,primary sclerosing cholangitis and autoimmune hepatitis. Automated urine specific gra vity by refractometryon 08-01-2023 Specific gravity Refractometry automated (U) [Rel density] 1.020 1.005-1.02 5 [facility] Bilirubin Auto test strip (U ) [Mass/Vol]on 08-01-2023 Bilirubin (U) [Mass/Vol] Negative NEGATIVE [facility] Cefuroxime free [Mass/Vol]on 08-01-2023 Anti-Nuclear Antibody Profile Negative Negative [facility] Comment on above: Performed at: [facility] [address] [id number] Director: Deshaun Hunter PhD, Phone: [phone] Performed at: [facility] [address] [id number] Director: Deshaun Hunter PhD, Phone: [phone] Color Auto (U)on 08-01-2023 Color (U) LT. YELLOW YELLOW [facility] Erythrocyte distribution wid th Auto (RBC) [Ratio]on 08-01-2023 Erythrocyte distribution width (RBC) [Ratio] 13.1 % 11.0-15.0 [facility] Estimated glomerular filtrat ion rate (GFR) non- Americanon 08-01-2023 GFR/1.73 sq M.predicted among non-blacks MDRD (S/P/Bld) [Vol rate/Area] 27 mL/min/{1.73_m2} >=60 [facility] Globulin Calc (S) [Mass/Vol] on 08-01-2023 Globulin (S) [Mass/Vol] 3.3 g/dL [facility] Glomerular basement membrane Ab [Units/volume] in Serum by Immunoassayon 08-01-2023 Glomerular basement membrane Ab IA Qn (S) <0.2 units 0.0-0.9 [facility] Comment on above: Performed at: [employer] [address] [id number] Director: Jhon Roberts MD, Phone: [phone] at: [facility] [address] [id number] Director: Deshaun Hunter PhD, Phone: [phone] HBV surface Ag IA Qlon 07-31 Hepatitis B Surface Antigen Negative Negative [facility] Comment on above: Performed at: [facility] [address] [id number] Director: Deshaun Hunter PhD, Phone: [phone] Performed at: [facility] [address] [id number] Director: Deshaun Hunter PhD, Phone: [phone] Hematocrit Auto (Bld) [Volum e fraction]on 08-01-2023 Hematocrit (Bld) [Volume fraction] 27.0 % 36.0-48.0 [facility] Hemoglobin [Mass/volume] in Bloodon 08-01-2023 Hemoglobin (Bld) [Mass/Vol] 7.8 g/dL 12.0-16.0 [facility] INR in Platelet poor plasma by Coagulation assayon 08-01-2023 INR Coag (PPP) [Relative time] 2.43 {INR} [facility] Comment on above: DESIRED INR:2.0-3.0 CONDITIONS NOT LISTED BELOW2.5-3.5 FOR PROSTHETIC HEART VALVE REPLACEMENT2.5-3.5 RECURRENT THROMBOSIS Immunofixation for Urineon 0 08-01-2023 Interpretation Immunofixation (U) [Interp] Comment . [facility] Comment on above: No monoclonality det ected.Performed at: [facility] [address] [id number] Director: Deshaun Hunter PhD, Phone: [phone] Iron binding capacity [Mass/ volume] in Serum or Plasmaon 08-01-2023 Iron binding capacity [Mass/Vol] 270.0 ug/dL 250.0-450. 0 [facility] Iron saturation [Mass Fracti on] in Serum or Plasmaon 08-01-2023 Iron saturation [Mass fraction] 14.8 % [facility] Ketones Auto test strip (U) [Mass/Vol]on 08-01-2023 Ketones (U) [Mass/Vol] Negative NEGATIVE Fi [facility] Laboratory - Chemistry and C hemistry - challengeon 08-01-2023 Albumin [Mass/Vol] 2.7 g/dL 3.4-5.0 [facility] ALP [Catalytic activity/Vol] 50 U/L 46-116 [facility] ALT [Catalytic activity/Vol] 18 U/L 14-59 [facility] AST [Catalytic activity/Vol] 12 U/L 15-37 [facility] Bilirubin [Mass/Vol] 0.2 mg/dL 0.2-1.0 [facility] Calcium [Mass/Vol] 8.8 mg/dL 8.5-10.1 [facility] Chloride [Moles/Vol] 105 mmol/L 98-107 [facility] CO2 [Moles/Vol] 32.1 mmol/L 21.0-32.0 [facility] Cobalamin (Vitamin B12) [Mass/Vol] 603.0 pg/mL 193.0-986. 0 [facility] Creatinine [Mass/Vol] 1.80 mg/dL 0.55-1.02 [facility] Ferritin [Mass/Vol] 32.0 ng/mL 8.0-252.0 [facility] GFR/1.73 sq M.predicted MDRD (S/P/Bld) [Vol rate/Area] 33 mL/min/{1.73_m2} >=60 [facility] Glucose [Mass/Vol] 112 mg/dL 74-106 [facility] Iron [Mass/Vol] 40.0 ug/dL 50.0-170.0 [facility] Magnesium [Mass/Vol] 1.9 mg/dL 1.8-2.4 [facility] Potassium [Moles/Vol] 4.3 mmol/L 3.5-5.1 [facility] Protein [Mass/Vol] 6.0 g/dL 6.4-8.2 [facility] Sodium [Moles/Vol] 145 mmol/L 136-145 [facility] Urea nitrogen [Mass/Vol] 33.0 mg/dL 7.0-18.0 [facility] Urea nitrogen/Creatinine [Mass ratio] 18.3 mg/mg [facility] Laboratory - Urinalysison Protein (U) [Mass/Vol] 181.1 mg/dL <=11.9 [facility] Leukocytes [#/volume] correc katy for nucleated erythrocytes in Blood by Automated counon 08-01-2023 WBC corrected for nucl RBC Auto (Bld) [#/Vol] 6.4 10 3/uL 4.0-11.0 [facility] MCH Auto (RBC) [Entitic mass ]on 08-01-2023 MCH (RBC) [Entitic mass] 29.2 pg 26.7-34.0 [facility] MCHC Auto (RBC) [Mass/Vol]on 08-01-2023 MCHC (RBC) [Mass/Vol] 28.9 g/dL 29.9-35.2 [facility] MCV Auto (RBC) [Entitic vol] on 08-01-2023 MCV (RBC) [Entitic vol] 101.1 fL 81.0-99.0 [facility] Myeloperoxidase Ab [Units/vo lume] in Serum by Immunoassayon 08-01-2023 Myeloperoxidase Ab IA Qn (S) <0.2 units 0.0-0.9 [facility] No Panel Informationon 07-31 25-Hydroxy Vitamin D Total 16.6 ng/mL [facility] Comment on above: <20 ng/mL Vit D defi cient20-<30 ng/mL Vit D [id number] ng/mL Vit D sufficient>100 ng/mL Potential Toxicity Folate 13.00 ng/mL 8.60-58.90 [facility] Miscellaneous Test COMMENT . [facility] Comment on above: Test Ordered: [id number] Cryoglobulin, Ql, Serum, RflxCryoglobulin, Ql, Serum, Rflx Comment CB Reference Range: None detectedNone Detected at 72 hoursThis test was developed and its performance characteristicsdetermined by [employer]. It has not been cleared orapproved by the Food and Drug Administration.Performed at: - [facility] [address] [id number] Director: Deshaun Hunter PhD, Phone: [phone] Parathyroid Hormone (Intact) 60 pg/mL [facility] Comment on above: Performed at: - [facility] [address] [id number] Director: Deshaun Hunter PhD, Phone: [phone] Perinuclear ANCA (p-ANCA) Antibody <1:20 titer Neg:<1:20 [facility] Comment on above: The presence of posi tive fluorescence exhibiting P-ANCA orC-ANCA patterns alone is not specific for the diagnosis ofWegener's Granulomatosis (WG) or microscopic polyangiitis.Decisions about treatment should not be based solely onANCA IFA results. The International ANCA Group Consensusrecommends follow up testing of positive sera with both SD-3 and MPO-ANCA enzyme immunoassays. As many as 5% serumsamples are positive only by EIA. Ref. AM J Clin Nsdyaq1415;111:507-513. Phosphorus Level 3.8 mg/dL 2.6-4.7 [facility] Urine Random Creatinine 27.68 mg/dL 20.00-300. 00 [facility] Platelet mean volume Auto (B ld) [Entitic vol]on 08-01-2023 Platelet mean volume (Bld) [Entitic vol] 10.5 fL 9.5-13.5 [facility] Platelets Auto (Bld) [#/Vol] on 08-01-2023 Platelets (Bld) [#/Vol] 227 10 3/uL 150-450 [facility] Protein Auto test strip (U) [Mass/Vol]on 08-01-2023 Protein (U) [Mass/Vol] 100 mg/dL NEG/TRACE Fi [facility] Proteinase 3 Ab [Units/volum e] in Serum by Immunoassayon 08-01-2023 Proteinase 3 Ab IA Qn (S) <0.2 units 0.0-0.9 [facility] Prothrombin time (PT)on 07-17 PT Coag (PPP) [Time] 24.5 s 9.0-11.6 [facility] RBC Auto (Bld) [#/Vol]on RBC (Bld) [#/Vol] 2.67 10 6/uL 4.20-5.40 [facility] Serum classic neutrophil cyt oplasmic antibody titer by immunofluorescenceon 08-01-2023 Neutrophil cytoplasmic Ab.classic IF (S) [Titer] <1:20 titer Neg:<1:20 [facility] Serum or plasma albumin/glob ulin mass ratioon 08-01-2023 Albumin/Globulin [Mass ratio] 0.8 {ratio} [facility] Serum or plasma anion gap de terminationon 08-01-2023 Anion gap [Moles/Vol] 12.2 mmol/L [facility] Serum or plasma complement C 3 measurement (mass/volume)on 08-01-2023 Complement C3 [Mass/Vol] 140 mg/dL 82-167 [facility] Serum or plasma complement C 4 measurement (mass/volume)on 08-01-2023 Complement C4 [Mass/Vol] 30 mg/dL 12-38 [facility] Comment on above: Performed at: [facility] [employer] [place] [id number] Director: Deshaun Hunter PhD, Phone: [phone] Specific gravity Auto test s trip (U) [Rel density]on 08-01-2023 Specific gravity (U) [Rel density] CLEAR CLEAR [facility] Urine glucose measurement by test strip (mass/volume)on 08-01-2023 Glucose Test strip (U) [Mass/Vol] Negative NEGATIVE [facility] Urine hemoglobin detection b y automated test stripon 08-01-2023 Hemoglobin Auto test strip Ql (U) LARGE NEGATIVE [facility] Urine nitrite detection by a utomated test stripon 08-01-2023 Nitrite Auto test strip Ql (U) Negative NEGATIVE [facility] Urine protein/creatinine rat ioon 08-01-2023 Protein/Creatinine (U) [Ratio] 6.54 [facility] Urobilinogen Auto test strip (U) [Mass/Vol]on 08-01-2023 Urobilinogen Qn (U) 0.2 {Radha'U}/dL 0.2-1.0 [facility] pH Auto test strip (U)on pH (U) 7.0 [pH] 5.0-9.0 [facility] POCT EKGon 07-30-2023 [employer] POCT Protime / INRon 024 INR Coag (PPP) [Relative time] 2.3 {INR} Abnormal 0.8 - 1.2 [facility] Interpretation and review of laboratory results Abnormal [facility] POCT Protime / INRon 07-17- 024 INR Coag (PPP) [Relative time] 2.2 {INR} Abnormal 0.8 - 1.2 [facility] Interpretation and review of laboratory results Abnormal [facility] POCT Protime / INRon 07-10- 024 INR Coag (PPP) [Relative time] 1.4 {INR} Abnormal 0.8 - 1.2 [facility] Interpretation and review of laboratory results Abnormal [facility] POCT Protime / INRon 06-26- 024 INR Coag (PPP) [Relative time] 1.8 {INR} Abnormal 0.8 - 1.2 [facility] Interpretation and review of laboratory results Abnormal [facility] POCT Protime / INRon 06-17- 024 INR Coag (PPP) [Relative time] 3.2 {INR} Abnormal 0.8 - 1.2 [facility] Interpretation and review of laboratory results Abnormal [facility] POCT Protime / INRon 06-10-2 024 INR Coag (PPP) [Relative time] 2.3 {INR} Abnormal 0.8 - 1.2 [facility] Interpretation and review of laboratory results Abnormal [facility] POCT Protime / INRon 06-05- 024 INR Coag (PPP) [Relative time] 3.5 {INR} Abnormal 0.8 - 1.2 [facility] Interpretation and review of laboratory results Abnormal [facility] BASIC METABOLIC PANLon 06-02 Anion gap [Moles/Vol] 9 mmol/L Normal 5-15 [facility] Comment on above: Performed By: #### B SAE NICHOLS THYR #### [facility] ([id number]) [address], [address] [place] [address] Calcium [Mass/Vol] 9.0 mg/dL Normal 8.5-10.5 [facility] Comment on above: Performed By: #### B SAE NICHOLS THYDeisy #### [facility] ([id number]) [address], [address] [place] [address] Chloride [Moles/Vol] 106 mmol/L Normal 98-109 [facility] Comment on above: Performed By: #### B SAE NICHOLS THYR #### [facility] ([id number]) [address], [address] [place] [address] CO2 [Moles/Vol] 30 mmol/L Normal 22-32 [facility] Comment on above: Performed By: #### B SAE NICHOLS THYR #### [facility] ([id number]) [address], [address] [place] [address] Creatinine [Mass/Vol] 1.58 mg/dL High 0.40-1.00 [facility] Comment on above: Result Comment: METH OD TRACEABLE TO IDMS STANDARD Performed By: #### B SAE NICHOLS THYR #### [facility] ([id number]) [address], [address] [place] [address] GFR/1.73 sq M.predicted among non-blacks MDRD (S/P/Bld) [Vol rate/Area] 32 mL/min/{1.73_m2} Low >59 [facility] Comment on above: Result Comment: Reported eGFR is based on the CKD-EPI 2020 equation that does not use a race coefficient. Performed By: #### B SAE NICHOLS THYDeisy #### [facility] ([id number]) [address], [address] [place] [address] Glucose [Mass/Vol] 125 mg/dL High 65-99 [facility] Comment on above: Performed By: #### B SAE NICHOLS THYR #### [facility] ([id number]) [address], [address] [place] [address] Potassium [Moles/Vol] 4.3 mmol/L Normal 3.5-5.0 [facility] Comment on above: Performed By: #### B MP, LIVR, THYR #### [facility] ([id number]) [address], [address] [place] [address] Sodium [Moles/Vol] 145 mmol/L Normal 134-146 [facility] Comment on above: Performed By: #### B MP, LIVR, THYR #### [facility] ([id number]) [address] [address] [place] [address] Urea nitrogen [Mass/Vol] 28 mg/dL High 5-27 [facility] Comment on above: Performed By: #### B MAGDALENA LIVR, THYR #### [facility] ([id number]) [address], [address] [place] [address] LIVER PANELon 06-02-2023 Albumin [Mass/Vol] 3.3 g/dL Normal 3.2-5.3 [facility] Comment on above: Performed By: #### B MP, LIVR, THYR #### [facility] ([id number]) [address] [place] [address] ALP [Catalytic activity/Vol] 40 U/L Normal 39-130 [facility] Comment on above: Performed By: #### B MAGDALENA LIVR, THYR #### [facility] ([id number]) [address], [address] [place] [address] ALT [Catalytic activity/Vol] 10 U/L Normal 0-31 [facility] Comment on above: Performed By: #### B MAGDALENA, LIVR, THYR #### [facility] ([id number]) [address], [address] [place] [address] AST [Catalytic activity/Vol] 10 U/L Normal 0-41 [facility] Comment on above: Performed By: #### B MP, LIVR, THYR #### [facility] ([id number]) [address] [place] [address] Bilirubin [Mass/Vol] 0.2 mg/dL Low 0.3-1.2 [facility] Comment on above: Performed By: #### B MP, LIVR, THYR #### [facility] ([id number]) [address], [address] [place] [address] Bilirubin.direct [Mass/Vol] 0.0 mg/dL Normal 0.0-0.4 [facility] Comment on above: Performed By: #### B MP, LIVR, THYR #### [facility] ([id number]) [address], [address] [place] [address] Protein [Mass/Vol] 5.6 g/dL Low 6.0-8.0 [facility] Comment on above: Performed By: #### B MP, LIVR, THYR #### [facility] ([id number]) [address], [address] [place] [address] POCT Protime / INRon 024 INR Coag (PPP) [Relative time] 4.7 {INR} Abnormal 0.8 - 1.2 [facility] Interpretation and review of laboratory results Abnormal [facility] THYROID PROFILEon 06-02-2023 Free T4 [Mass/Vol] 0.96 ng/dL Normal 0.61-1.60 [facility] Comment on above: Performed By: #### B MP, LIVR, THYR #### [facility] ([id number]) [address], [address] [place] [address] TSH 7.63 uIU/mL High 0.49-4.67 [facility] Comment on above: Performed By: #### B MP, LIVR, THYR #### [facility] ([id number]) [address] [place] [address] POCT EKGOrdered By: Latia Garcia on 05-28-2023 [facility] POCT Protime / INRon 024 INR Coag (PPP) [Relative time] 3.3 {INR} Abnormal 0.8 - 1.2 [facility] Interpretation and review of laboratory results Abnormal [facility] POCT Protime / INRon 024 INR Coag (PPP) [Relative time] 4.6 {INR} Abnormal 0.8 - 1.2 [facility] Interpretation and review of laboratory results Abnormal [facility] A1C HEMOGLOBINon 02-19-2023 HbA1c (Bld) [Mass fraction] 5.8 % [employer] Other Glucose - FINGER STICKon Glucose [Mass/Vol] 174 mg/dL [employer] [facility] [employer] Other HbA1c (Bld) [Mass fraction]o n 02-19-2023 A1C HEMOGLOBIN [employer] [facility] [employer] Other PROF 14(COMP METB)on 023 Albumin [Mass/Vol] 2.9 g/dL Critically low 3.4-5.0 Th e [facility] Comment on above: Performed By: #### C MP #### [facility] [address] [place] [address] Dr. Lamar Lin Albumin/Globulin [Mass ratio] 0.8 {ratio} Normal [facility] Comment on above: Performed By: #### C MP #### [facility] [address] [address] [address] Lamar Lin ALP [Catalytic activity/Vol] 70 U/L Normal 46-116 [facility] Comment on above: Performed By: #### C MP #### [facility] [address] [place] [address] Dr. Lamar Lin ALT [Catalytic activity/Vol] 14 U/L Normal 14-59 [facility] Comment on above: Performed By: #### C MP #### [facility] [address] [address] [address] Lamar Lin Anion gap [Moles/Vol] 10.5 mmol/L Normal Th e [facility] Comment on above: Performed By: #### C MP #### [facility] [address] [place] [address] Dr. Lamar Lin AST [Catalytic activity/Vol] 10 U/L Critically low 15-37 [facility] Comment on above: Performed By: #### C MP #### [facility] [address] [address] [address] Lamar Lin Bilirubin [Mass/Vol] 0.2 mg/dL Normal 0.2-1.0 [facility] Comment on above: Performed By: #### C MP #### [facility] [address] [place] [address] Dr. Lamar Lin Calcium [Mass/Vol] 9.4 mg/dL Normal 8.5-10.1 [facility] Comment on above: Performed By: #### C MP #### [facility] [address] [place] [address] Dr. Lamar Lin Chloride [Moles/Vol] 104 mmol/L Normal 98-107 [facility] Comment on above: Performed By: #### C MP #### [facility] [address] [place] [address] Dr. Lamar Lin CO2 [Moles/Vol] 34.9 mmol/L Critically high 21.0-32.0 [facility] Comment on above: Performed By: #### C MP #### [facility] [address] [address] [address] Lamar Lin Creatinine [Mass/Vol] 0.96 mg/dL Normal 0.55-1.02 [facility] Comment on above: Performed By: #### C MP #### [facility] [address] [address] [address] Lamar Lin EGFR-AF CITIZEN OF [place] >60 Normal >=60 [facility] Comment on above: Performed By: #### C MP #### [facility] [address] [place] [address] Dr. Lamar Lin EGFR-NON AF CITIZEN OF [place] 56 mL/min/1.73m2 Critically low >=60 [facility] Comment on above: Performed By: #### C MP #### [facility] [address] [address] [address] Lamar Lin Globulin (S) [Mass/Vol] 3.7 g/dL Normal [facility] Comment on above: Performed By: #### C MP #### [facility] [address] [address] [address] Lamar Lin Glucose [Mass/Vol] 132 mg/dL Critically high 74-106 [facility] Comment on above: Performed By: #### C MP #### [facility] [address] [address] [address] Lamar Lin Potassium [Moles/Vol] 4.4 mmol/L Normal 3.5-5.1 [facility] Comment on above: Performed By: #### C MP #### [facility] [address] [address] [address] Lamar Lin Protein [Mass/Vol] 6.6 g/dL Normal 6.4-8.2 [facility] Comment on above: Performed By: #### C MP #### [facility] [address] [address] [address] Lamar Lin Sodium [Moles/Vol] 145 mmol/L Normal 136-145 [facility] Comment on above: Performed By: #### C MP #### [facility] [address] [address] [address] Lamar Lin Urea nitrogen [Mass/Vol] 28.0 mg/dL Critically high 7.0-18.0 [facility] Comment on above: Performed By: #### C MP #### [facility] [address] [address] [address] Lamar Lin Urea nitrogen/Creatinine [Mass ratio] 29.2 mg/mg Normal [facility] Comment on above: Performed By: #### C MP #### [facility] [address] [address] [address] Lamar Lin A1C with Estimated Average G donald 08-19-2022 HbA1c (Bld) [Mass fraction] 6.500 % High 4.3-5.6 % [employer] Other HbA1c (Bld) [Mass fraction] 140 mg/dL [employer] Other Comprehensive Metabolic Pane nahun 08-19-2022 Albumin [Mass/Vol] 3.767270 g/dL Normal 3.5-5.7 g/dL [employer] Other Albumin/Globulin [Mass ratio] 1.7 {ratio} [employer] Other ALP [Catalytic activity/Vol] 56 U/L Normal 34-104 U/L [employer] Other ALT [Catalytic activity/Vol] 14 U/L Normal 7-52 U/L [employer] Other AST [Catalytic activity/Vol] 15 U/L Normal 13-39 U/L [employer] Other Bilirubin [Mass/Vol] 0.9585643 mg/dL Low 0.3- 1.0 mg/dL [employer] Other Calcium [Mass/Vol] 9.9375880 mg/dL Normal 8.6-10 .3 mg/dL [employer] Other Chloride [Moles/Vol] 103 mmol/L Normal 98-107 mmol/L [employer] Other CO2 [Moles/Vol] 34.25153552 mmol/L High 21.0-3 1.0 mmol/L [employer] Other Creatinine [Mass/Vol] 0.11333789 mg/dL Normal 0. 60-1.20 mg/dL [employer] Other GFR/1.73 sq M.predicted MDRD (S/P/Bld) [Vol rate/Area] mL/min/{1.73_m2} [employer] Other Glucose [Mass/Vol] 156 mg/dL High 70-100 mg/dL [employer] Other Potassium [Moles/Vol] 4.62356463 mmol/L Normal 3 .5-5.1 mmol/L [employer] Other Protein [Mass/Vol] 5.143160 g/dL Low 6.4-8.9 g/dL [employer] Other Sodium [Moles/Vol] 144 mmol/L Normal 136-145 mmol/L [employer] Other Urea nitrogen [Mass/Vol] 24 mg/dL Normal 7-25 mg/dL [employer] Other Comprehensive Metabolic Panel 2.1 g/dL [employer] Other Glucose - FINGER STICKon Glucose [Mass/Vol] 205 mg/dL [employer] Other Lipid Panelon 08-19-2022 Cholesterol [Mass/Vol] 172 mg/dL Normal 140-2 00 mg/dL [employer] Other Cholesterol in HDL [Mass/Vol] 33 mg/dL Low 35-85 mg/dL [employer] Other Cholesterol in LDL Elph Qn 95 mg/dL Normal 0-100 mg/dL [employer] Other Cholesterol.total/Chol esterol in HDL [Mass ratio] 5.2 {ratio} <5.0 [employer] Other Lipid Panel 219 mg/dL High 0-149 mg/dL [employer] Other Lipid Panel 43 mg/dL [employer] Other MicroAlb Creat Ratio,Uon Albumin DL <= 20 mg/L (U) [Mass/Vol] mg/dL High 0.0-1.8 [employer] Other Albumin/Creatinine DL <= 20 mg/L (U) [Mass ratio] TNP 0.0-30.0 [employer] Other Creatinine (U) [Mass/Vol] 52.3296191 mg/dL [employer] Other Vitamin B12on 08-19-2022 Cobalamin (Vitamin B12) [Mass/Vol] 345 pg/mL Normal 180-914 pg/mL [employer] Other A1C HEMOGLOBINon 02-27-2022 HbA1c (Bld) [Mass fraction] 6.1 % [employer] Other Glucose - FINGER STICKon Glucose [Mass/Vol] 159 mg/dL [employer] Other HbA1c (Bld) [Mass fraction]o n 02-27-2022 A1C HEMOGLOBIN [facility] [employer] Other FREE T4on 10-30-2021 Free T4 [Mass/Vol] 1.11 ng/dL Normal 0.76-1.46 [facility] Comment on above: Performed By: #### F T4 #### [facility] [address] [address] [address] Lamar Lin T4on 10-30-2021 T4 [Mass/Vol] 8.30 ug/dL Normal 4.80-13.90 [facility] Comment on above: Performed By: #### T 4, TSH #### [facility] [address] [address] [address] Lamar Lin TSHon 10-30-2021 TSH 2.475 uIU/mL Normal 0.358-3.74 0 [facility] Comment on above: Performed By: #### T 4, TSH #### [facility] [address] [address] [address] Lamar Lin Glucoseon 05-23-2021 Glucose [Mass/Vol] 167 mg/dL [place] [employer] Other Vital Signs Date Time Vital Sign Value Performing Clinician Facility 12-11-2023 11:31-0400 Body height 152.4 cm [facility] 12-11-2023 11:31-0400 Body mass index (BMI) [Ratio] 40.8 kg/m2 [facility] 12-11-2023 11:31-0400 Body temperature 97.1 [degF] [facility] 12-11-2023 11:31-0400 Body weight 94.85 kg [facility] 12-11-2023 11:31-0400 Diastolic blood pressure 60 mm[Hg] [facility] 12-11-2023 11:31-0400 Heart rate 68 /min [facility] 12-11-2023 11:31-0400 Inhaled oxygen flow rate 2 L/min [facility] 12-11-2023 11:31-0400 Respiratory rate 18 /min [facility] 12-11-2023 11:31-0400 SaO2% (BldA) [Mass fraction] 95 % [facility] 12-11-2023 11:31-0400 Systolic blood pressure 130 mm[Hg] [facility] 12-08-2023 10:40-0400 Body height 152.4 cm [facility] 12-08-2023 10:40-0400 Body mass index (BMI) [Ratio] 40.8 kg/m2 [facility] 12-08-2023 10:40-0400 Body weight 94.97 kg [facility] 12-08-2023 10:40-0400 Diastolic blood pressure 61 mm[Hg] [facility] 12-08-2023 10:40-0400 Heart rate 56 /min [facility] 12-08-2023 10:40-0400 Respiratory rate 18 /min [facility] 12-08-2023 10:40-0400 SaO2% (BldA) [Mass fraction] 95 % [facility] 12-08-2023 10:40-0400 Systolic blood pressure 119 mm[Hg] [facility] 11-18-2023 10:03-0400 Body height 152.4 cm ALFREDO Light Work Phone: [facility] 11-18-2023 10:03-0400 Body mass index (BMI) [Ratio] 39.2 kg/m2 [employer] Work Phone: [facility] 11-18-2023 10:03-0400 Body temperature 98 [degF] [employer]PER[employer] Aniak Elaine Work Phone: [facility] 11-18-2023 10:03-0400 Body weight 91.22 kg [employer]FA[employer]ING [employer]IFT SUPER[employer] Anika Elaine Work Phone: [facility] 11-18-2023 10:03-0400 Diastolic blood pressure 71 mm[Hg] [employer]ING [employer] SUPER[employer] Anika Elaine Work Phone: [facility] 11-18-2023 10:03-0400 Heart rate 70 /min [employer] SUPER[employer] Anika Elaine Work Phone: [facility] 11-18-2023 10:03-0400 Inhaled oxygen flow rate 2 L/min [employer] SUPER[employer] Anika Elaine Work Phone: [facility] 11-18-2023 10:03-0400 Respiratory rate 16 /min [employer]ING [employer]IFT SUPER[employer]OR[employer] Anika Elaine Work Phone: [facility] 11-18-2023 10:03-0400 SaO2% (BldA) [Mass fraction] 94 % [employer]IFT SUPERVISOR[employer] Anika Elaine Work Phone: [facility] 11-18-2023 10:03-0400 Systolic blood pressure 162 mm[Hg] [employer]ING [employer]IFT SUPER[employer] Anika Elaine Work Phone: [facility] 11-05-2023 14:04-0400 Body height 152.4 cm [employer]UFA[employer]ING [employer]IFT SUPERVISOR[employer] Anika Elaine Work Phone: [facility] 11-05-2023 14:04-0400 Body mass index (BMI) [Ratio] 39 kg/m2 [employer]ING [employer]IFT SUPER[employer]OR[employer] Anika Elaine Work Phone: [facility] 11-05-2023 14:04-0400 Body temperature 98.1 [degF] [employer]ING [employer]IFT SUPER[employer] Anika Elaine Work Phone: [facility] 11-05-2023 14:04-0400 Body weight 90.71 kg MANUFA[employer]URING SHIFT SUPERVISOR[employer] Anika Elaine Work Phone: [facility] 11-05-2023 14:04-0400 Diastolic blood pressure 68 mm[Hg] [employer]ING [employer]IFT SUPER[employer] Anika Elaine Work Phone: [facility] 11-05-2023 14:04-0400 Heart rate 56 /min [employer]ING [employer]IFT SUPER[employer] Anika Elaine Work Phone: [facility] 11-05-2023 14:04-0400 Inhaled oxygen flow rate 2 L/min [employer]ING [employer]IFT SUPER[employer] Anika Elaine Work Phone: [facility] 11-05-2023 14:04-0400 Respiratory rate 18 /min [employer]ING [employer]IFT SUPER[employer] Anika Elaine Work Phone: [facility] 11-05-2023 14:04-0400 SaO2% (BldA) [Mass fraction] 92 % [employer] SUPER[employer] Anika Elaine Work Phone: [facility] 11-05-2023 14:04-0400 Systolic blood pressure 136 mm[Hg] [employer]ING [employer]IFT SUPER[employer]OR[employer] Anika Elaine Work Phone: [facility] 10-15-2023 13:42-0400 Body height 152.4 cm [employer]UFA[employer]ING [employer]IFT SUPER[employer]OR[employer] Anika Elaine Work Phone: [facility] 10-15-2023 13:42-0400 Body mass index (BMI) [Ratio] 38.7 kg/m2 [employer] SUPER[employer] Anika Elaine Work Phone: [facility] 10-15-2023 13:42-0400 Body temperature 97.6 [degF] [employer]ING [employer]IFT SUPER[employer] Anika Elaine Work Phone: [facility] 10-15-2023 13:42-0400 Body weight 90.03 kg [employer]UFA[employer]ING SHIFT SUPERVISOR[employer] Anika Elaine Work Phone: [facility] 10-15-2023 13:42-0400 Diastolic blood pressure 70 mm[Hg] [employer]ING SHIFT SUPER[employer]OR[employer] Anika Elaine Work Phone: [facility] 10-15-2023 13:42-0400 Heart rate 60 /min [employer]ING [employer] SUPER[employer] Anika Elaine Work Phone: [facility] 10-15-2023 13:42-0400 Inhaled oxygen flow rate 2 L/min [employer]FA[employer]ING [employer]IFT SUPER[employer] Anika Elaine Work Phone: [facility] 10-15-2023 13:42-0400 Respiratory rate 18 /min [employer]FA[employer]ING [employer]IFT SUPERVISOR[employer] Anika Elaine Work Phone: [facility] 10-15-2023 13:42-0400 SaO2% (BldA) [Mass fraction] 97 % [employer] SUPER[employer] Anika Elaine Work Phone: [facility] 10-15-2023 13:42-0400 Systolic blood pressure 143 mm[Hg] [employer]ING SHIFT SUPER[employer]OR[employer] Anika Elaine Work Phone: [facility] 09-23-2023 09:37-0400 Body height 152.4 cm [employer]UFA[employer]ING [employer]IFT SUPERVISOR[employer] Anika Elaine Work Phone: [facility] 09-23-2023 09:37-0400 Body mass index (BMI) [Ratio] 38.5 kg/m2 [employer]ING [employer] SUPER[employer] Anika Elaine Work Phone: [facility] 09-23-2023 09:37-0400 Body temperature 97.9 [degF] [employer]UFA[employer]ING [employer]IFT SUPERVISOR[employer] Anika Elaine Work Phone: [facility] 09-23-2023 09:37-0400 Body weight 89.44 kg [employer]UFA[employer]ING SHIFT SUPERVISOR[employer] Anika Elaine Work Phone: [facility] 09-23-2023 09:37-0400 Diastolic blood pressure 72 mm[Hg] [employer]ING [employer]IFT SUPER[employer] Anika Elaine Work Phone: [facility] 09-23-2023 09:37-0400 Heart rate 67 /min [employer]FA[employer]ING [employer]IFT SUPER[employer] Anika Elaine Work Phone: [facility] 09-23-2023 09:37-0400 Inhaled oxygen flow rate 2 L/min [employer]FA[employer]ING [employer]IFT SUPER[employer] Anika Elaine Work Phone: [facility] 09-23-2023 09:37-0400 Respiratory rate 18 /min [employer]ING [employer]IFT SUPER[employer] Anika Elaine Work Phone: [facility] 09-23-2023 09:37-0400 SaO2% (BldA) [Mass fraction] 97 % [employer] SUPER[employer] Anika Light Work Phone: [facility] 09-23-2023 09:37-0400 Systolic blood pressure 149 mm[Hg] [employer]ING [employer]IFT SUPERVISOR[employer] Anika Light Work Phone: [facility] 09-09-2023 14:15-0400 Body height 152.4 cm [employer]UFA[employer]ING [employer]IFT SUPERVISOR[employer] Anika Light Work Phone: [facility] 09-09-2023 14:15-0400 Body mass index (BMI) [Ratio] 38.9 kg/m2 [employer]ING [employer] SUPER[employer] Anika Light Work Phone: [facility] 09-09-2023 14:15-0400 Body temperature 97.2 [degF] [employer]UFA[employer]ING SHIFT SUPERVISOR[employer] Anika Light Work Phone: [facility] 09-09-2023 14:15-0400 Body weight 90.49 kg [employer]UFACTURING SHIFT SUPERVISOR-[employer] Anika Light Work Phone: [facility] 09-09-2023 14:15-0400 Diastolic blood pressure 77 mm[Hg] [employer]UFA[employer]ING SHIFT SUPERVISOR[employer] Anika Light Work Phone: [facility] 09-09-2023 14:15-0400 Heart rate 70 /min [employer]UFA[employer]URING SHIFT SUPERVISOR-[employer] Anika Light Work Phone: [facility] 09-09-2023 14:15-0400 Inhaled oxygen flow rate 2 L/min [employer]UFA[employer]ING SHIFT SUPERVISOR-[employer] Anika Light Work Phone: [facility] 09-09-2023 14:15-0400 Respiratory rate 18 /min MANUFACTURING SHIFT SUPERVISOR-C Anika Marsmer Work Phone: [facility] 09-09-2023 14:15-0400 SaO2% (BldA) [Mass fraction] 97 % [employer]UFA[employer]ING SHIFT SUPERVISOR-C Anika Marsmer Work Phone: [facility] 09-09-2023 14:15-0400 Systolic blood pressure 147 mm[Hg] MANUFA[employer]ING SHIFT SUPERVISOR-[employer] Anika Elaine Work Phone: [facility] 09-01-2023 11:35-0400 Diastolic blood pressure 73 mm[Hg] MANUFA[employer]ING SHIFT SUPERVISOR-C Anika Elaine Work Phone: [facility] 09-01-2023 11:35-0400 Heart rate 62 /min [employer]UFA[employer]ING SHIFT SUPERVISOR-[employer] Anika Elaine Work Phone: [facility] 09-01-2023 11:35-0400 Inhaled oxygen flow rate 2 L/min [employer]UFACTURING SHIFT SUPERVISOR-C Anika Elaine Work Phone: [facility] 09-01-2023 11:35-0400 Respiratory rate 18 /min MANUFACTURING SHIFT SUPERVISOR-C Anika Elaine Work Phone: [facility] 09-01-2023 11:35-0400 SaO2% (BldA) [Mass fraction] 96 % [employer]UFA[employer]URING SHIFT SUPERVISOR-C Anika Elaine Work Phone: [facility] 09-01-2023 11:35-0400 Systolic blood pressure 164 mm[Hg] MANUFA[employer]URING SHIFT SUPERVISOR-C Anika Elaine Work Phone: [facility] 09-01-2023 09:17-0400 Body height 152.4 cm MANUFACTURING SHIFT SUPERVISOR-C Anika Elaine Work Phone: [facility] 09-01-2023 09:17-0400 Body weight 93.44 kg [employer]UFA[employer]ING SHIFT SUPERVISOR-[employer] Anika Elaine Work Phone: [facility] 08-20-2023 10:20-0400 Body height 152.4 cm [facility] 08-20-2023 10:20-0400 Body mass index (BMI) [Ratio] 40.2 kg/m2 [facility] 08-20-2023 10:20-0400 Body weight 93.44 kg [facility] 08-20-2023 10:20-0400 Diastolic blood pressure 84 mm[Hg] [facility] 08-20-2023 10:20-0400 Heart rate 73 /min [facility] 08-20-2023 10:20-0400 Inhaled oxygen flow rate 2 L/min [facility] 08-20-2023 10:20-0400 Respiratory rate 18 /min [facility] 08-20-2023 10:20-0400 SaO2% (BldA) [Mass fraction] 94 % [facility] 08-20-2023 10:20-0400 Systolic blood pressure 176 mm[Hg] [facility] 08-13-2023 10:41-0400 Body height 152.4 cm [facility] 08-13-2023 10:41-0400 Body mass index (BMI) [Ratio] 40.1 kg/m2 [facility] 08-13-2023 10:41-0400 Body temperature 97.5 [degF] [facility] 08-13-2023 10:41-0400 Body weight 93.15 kg [facility] 08-13-2023 10:41-0400 Diastolic blood pressure 72 mm[Hg] [facility] 08-13-2023 10:41-0400 Heart rate 77 /min [facility] 08-13-2023 10:41-0400 Inhaled oxygen flow rate 2 L/min [facility] 08-13-2023 10:41-0400 Respiratory rate 20 /min [facility] 08-13-2023 10:41-0400 SaO2% (BldA) [Mass fraction] 95 % [facility] 08-13-2023 10:41-0400 Systolic blood pressure 162 mm[Hg] [facility] 07-30-2023 11:44-0400 Body height 165.1 cm Tr SOLORZANO Work Phone: [facility] 07-30-2023 11:44-0400 Body mass index (BMI) [Ratio] 34.28 kg/m2 Tr Jimenez APRN-IT ADMIN Work Phone: [facility] 07-30-2023 11:44-0400 Body weight 93.44 kg Tr Jimenez APRN-IT ADMIN Work Phone: [facility] 07-30-2023 11:44-0400 Diastolic blood pressure 80 mm[Hg] Tr Jimenez MULTI PURPOSE MACHINE OPERATOR-IT ADMIN Work Phone: [facility] [employer] [facility] 07-30-2023 11:44-0400 Heart rate 59 /min Tr Jimenez M[employer] MACHINE OPERATOR-IT ADMIN Work Phone: [facility] [employer] [facility] 07-30-2023 11:44-0400 Systolic blood pressure 140 mm[Hg] Tr Jimenez MULTI PURPOSE MACHINE OPERATOR-IT ADMIN Work Phone: [facility] [employer] [facility] 06-17-2023 12:41-0500 Body height 165.1 cm Iona Delarosa MD Work Phone: [facility] [employer] [facility] 06-17-2023 12:41-0500 Body mass index (BMI) [Ratio] 33.61 kg/m2 Iona Delarosa MD Work Phone: [facility] [employer] [facility] 06-17-2023 12:41-0500 Body weight 91.63 kg Iona Delarosa MD Work Phone: [facility] [employer] [facility] 06-17-2023 12:41-0500 Diastolic blood pressure 70 mm[Hg] Iona Delarosa MD Work Phone: [facility] [employer] [facility] 06-17-2023 12:41-0500 Heart rate 73 /min Iona Delarosa MD Work Phone: [facility] [employer] [facility] 06-17-2023 12:41-0500 SaO2% (BldA) [Mass fraction] 97 % Iona Delarosa MD Work Phone: [facility] [employer] [facility] 06-17-2023 12:41-0500 Systolic blood pressure 160 mm[Hg] Iona Delarosa MD Work Phone: [facility] [employer] [facility] 05-28-2023 12:35-0500 Body height 165.1 cm Tr Jimenez MULTI PURPOSE MACHINE OPERATOR-IT ADMIN Work Phone: [facility] [employer] [facility] 05-28-2023 12:35-0500 Body mass index (BMI) [Ratio] 33.61 kg/m2 Tr Jimenez MULTI PURPOSE MACHINE OPERATOR-IT ADMIN Work Phone: [employer] 05-28-2023 12:35-0500 Body weight 91.63 kg Tr Jimenez MULTI PURPOSE MACHINE OPERATOR-IT ADMIN Work Phone: [employer] 05-28-2023 12:35-0500 Diastolic blood pressure 100 mm[Hg] Tr Jimenez MULTI PURPOSE MACHINE OPERATOR-IT ADMIN Work Phone: [employer] 05-28-2023 12:35-0500 Heart rate 64 /min Tr Jimenez MULTI PURPOSE MACHINE OPERATOR-IT ADMIN Work Phone: [employer] 05-28-2023 12:35-0500 SaO2% (BldA) [Mass fraction] 94 % Tr Jimenez MULTI PURPOSE MACHINE OPERATOR-IT ADMIN Work Phone: [employer] 05-28-2023 12:35-0500 Systolic blood pressure 200 mm[Hg] Tr Jimenez MULTI PURPOSE MACHINE OPERATOR-IT ADMIN Work Phone: [employer] 04-22-2023 10:20-0500 Body height 152.4 cm Rin Darbylawanda Other [facility] 04-22-2023 10:20-0500 Body mass index (BMI) [Ratio] 39.64 kg/m2 Rin Darbys Other [facility] [employer] Other 04-22-2023 10:20-0500 Body weight 92.08 kg Rin Darbys Other [facility] [employer] Other 04-22-2023 10:20-0500 Body weight 92.07 kg [facility] 04-22-2023 10:20-0500 Diastolic blood pressure 70 mm[Hg] Rin Darbys Other [facility] 04-22-2023 10:20-0500 Respiratory rate 18 /min Rin Darbys Other [facility] [employer] Other 12-05-2023 10:20-0500 SaO2% (BldA) [Mass fraction] 97 % Rin Sarmiento Other [employer] Other 04-22-2023 10:20-0500 Systolic blood pressure 138 mm[Hg] Rin Sarmiento Other [facility] 02-19-2023 09:15-0400 Body height 152.4 cm Tondra Mapus Other [employer] Other 02-19-2023 09:15-0400 Body mass index (BMI) [Ratio] 40.21 kg/m2 Tondra Mapus Other [employer] Other 02-19-2023 09:15-0400 Body weight 93.4 kg Tondra Mapus Other [employer] Other 02-19-2023 09:15-0400 Diastolic blood pressure 64 mm[Hg] Tondra Mapus Other [employer] Other 02-19-2023 09:15-0400 Respiratory rate 18 /min Tondra Mapus Other [employer] Other 02-19-2023 09:15-0400 SaO2% (BldA) [Mass fraction] 95 % Tondra Mapus Other [employer] Other 02-19-2023 09:15-0400 Systolic blood pressure 129 mm[Hg] Tondra Mapus Other [employer] Other 02-12-2023 09:00-0400 Body height 152.4 cm Tondra Mapus Other [employer] Other 02-12-2023 09:00-0400 Body mass index (BMI) [Ratio] 40.07 kg/m2 Tondra Mullinsus Other [employer] Other 02-12-2023 09:00-0400 Body weight 93.08 kg Chester Lin Other [employer] Other 10-22-2022 10:00-0400 Body height 152.4 cm Azwalter Bakhous Other [employer] Other 10-22-2022 10:00-0400 Body mass index (BMI) [Ratio] 40.23 kg/m2 Aziz Bakhous Other [employer] Other 10-22-2022 10:00-0400 Body temperature 97.4 [degF] Aziz Bakhous Other [employer] Other 10-22-2022 10:00-0400 Body weight 93.44 kg Aziz Bakhous Other [employer] Other 10-22-2022 10:00-0400 Diastolic blood pressure 78 mm[Hg] Aziz Bakhous Other [employer] Other 10-22-2022 10:00-0400 Respiratory rate 20 /min Aziz Bakhous Other [employer] Other 10-22-2022 10:00-0400 SaO2% (BldA) [Mass fraction] 92 % Aziz Bakhous Other [employer] Other 10-22-2022 10:00-0400 Systolic blood pressure 146 mm[Hg] Aziz Bakhous Other [employer] Other 08-19-2022 10:15-0400 Body height 152.4 cm Tondra Mapus Other [employer] Other 08-19-2022 10:15-0400 Body mass index (BMI) [Ratio] 39.82 kg/m2 Tondra Mapus Other [employer] Other 08-19-2022 10:15-0400 Body weight 92.49 kg Tondra Mapus Other [employer] Other 08-19-2022 10:15-0400 Diastolic blood pressure 63 mm[Hg] Tondra Mapus Other [employer] Other 08-19-2022 10:15-0400 Respiratory rate 20 /min Tondra Mapus Other [employer] Other 08-19-2022 10:15-0400 SaO2% (BldA) [Mass fraction] 95 % Tondra Mapus Other [employer] Other 08-19-2022 10:15-0400 Systolic blood pressure 136 mm[Hg] Tondra Mapus Other [employer] Other 02-27-2022 10:15-0400 Body height 152.4 cm Tondra Mapus Other [employer] Other 02-27-2022 10:15-0400 Body mass index (BMI) [Ratio] 41.79 kg/m2 Tondra Mapus Other [employer] Other 02-27-2022 10:15-0400 Body weight 97.07 kg Tondra Mapus Other [employer] Other 02-27-2022 10:15-0400 Diastolic blood pressure 55 mm[Hg] Tondra Mapus Other [employer] Other 02-27-2022 10:15-0400 Respiratory rate 20 /min Tondra Mapus Other [employer] Other 02-27-2022 10:15-0400 SaO2% (BldA) [Mass fraction] 97 % Tondra Mapus Other [employer] Other 02-27-2022 10:15-0400 Systolic blood pressure 130 mm[Hg] Tondra Mapus Other [employer] Other 10-23-2021 11:00-0400 Body height 152.4 cm [employer] Other [employer] Other 10-23-2021 11:00-0400 Body mass index (BMI) [Ratio] 44.05 kg/m2 [employer] Other [employer] Other 10-23-2021 11:00-0400 Body temperature 97.5 [degF] [employer] Other [employer] Other 10-23-2021 11:00-0400 Body weight 102.33 kg [employer] Other [employer] Other 10-23-2021 11:00-0400 Diastolic blood pressure 72 mm[Hg] [employer] Other [employer] Other 10-23-2021 11:00-0400 Respiratory rate 20 /min Rin Sarmiento Other [employer] Other 10-23-2021 11:00-0400 SaO2% (BldA) [Mass fraction] 94 % Rin Sarmiento Other [employer] Other 10-23-2021 11:00-0400 Systolic blood pressure 135 mm[Hg] Rin Darbys Other [employer] Other 05-23-2021 10:15-0500 Body height 152.4 cm Tondra Mapus Other [employer] Other 05-23-2021 10:15-0500 Body mass index (BMI) [Ratio] 43.25 kg/m2 Tondra Mapus Other [employer] Other 05-23-2021 10:15-0500 Body weight 100.47 kg Tondra Mapus Other [employer] Other 05-23-2021 10:15-0500 Diastolic blood pressure 57 mm[Hg] Tondra Mapus Other [employer] Other 05-23-2021 10:15-0500 Respiratory rate 20 /min Tondra Mapus Other [employer] Other 05-23-2021 10:15-0500 SaO2% (BldA) [Mass fraction] 96 % Tondra Mapus Other [employer] Other 05-23-2021 10:15-0500 Systolic blood pressure 131 mm[Hg] Tondra Mapus Other [facility] [employer] Other Encounters Encounter Date Encounter Type Care Provider Facility Start: 12-11-2023 End: 12-11-2023 ambulatory [facility] Work Phone: Start: 12-11-2023 End: 12-11-2023 Patient encounter procedure [facility] Work Phone: Start: 12-08-2023 End: 12-08-2023 ambulatory [facility] Work Phone: Start: 12-08-2023 End: 12-08-2023 Patient encounter procedure [facility] Work Phone: Start: 12-03-2023 End: 12-03-2023 ambulatory [facility] Start: 11-27-2023 Non-patient / Non-visit [facility] Work Phone: Start: 11-18-2023 End: 11-18-2023 ambulatory MANUFACTURING SHIFT SUPERVISOR-C Anika Deepa Elaine Work Phone: [facility] Work Phone: Start: 11-18-2023 End: 11-18-2023 Patient encounter procedure MANUFACTURING SHIFT SUPERVISOR-C Anika Elaine Work Phone: [facility] Work Phone: Start: 11-13-2023 Non-patient / Non-visit MANUFACTURING SHIFT SUPERVISOR-C P mellissa Elaine Work Phone: [facility] Work Phone: Start: 11-12-2023 End: 11-12-2023 ambulatory [facility] Start: 11-05-2023 End: 11-05-2023 ambulatory MANUFACTURING SHIFT SUPERVISOR-C Anika Deepa Elaine Work Phone: [facility] Work Phone: Start: 11-05-2023 End: 11-05-2023 Patient encounter procedure MANUFACTURING SHIFT SUPERVISOR-C Anika Elaine Work Phone: [facility] Work Phone: Start: 10-30-2023 Non-patient / Non-visit MANUFACTURING SHIFT SUPERVISOR-C P mellissa Elaine Work Phone: [facility] Work Phone: Start: 10-22-2023 End: 10-22-2023 ambulatory [facility] Start: 10-15-2023 End: 10-15-2023 ambulatory MANUFACTURING SHIFT SUPERVISOR-C Anika Deepa Elaine Work Phone: [facility] Work Phone: Start: 10-15-2023 End: 10-15-2023 Patient encounter procedure MANUFACTURING SHIFT SUPERVISOR-C Anika Elaine Work Phone: [facility] Work Phone: Start: 10-08-2023 End: 10-08-2023 ambulatory [facility] Start: 10-07-2023 Non-patient / Non-visit MANUFACTURING SHIFT SUPERVISOR-C P mellissa Elaine Work Phone: [facility] Work Phone: Start: 09-23-2023 End: 09-23-2023 ambulatory [facility] Start: 09-23-2023 End: 09-23-2023 ambulatory MANUFACTURING SHIFT SUPERVISOR-C Anika Deepa Elaine Work Phone: [facility] Work Phone: Start: 09-23-2023 End: 09-23-2023 Patient encounter procedure MANUFACTURING SHIFT SUPERVISOR-C Anika Elaine Work Phone: [facility] Physician [facility] Work Phone: Start: 09-16-2023 End: 09-16-2023 ambulatory [facility] Start: 09-16-2023 Non-patient / Non-visit MANUFACTURING SHIFT SUPERVISOR-C P mellissa Elaine Work Phone: [facility] Work Phone: Start: 09-11-2023 End: 09-11-2023 ambulatory LUCI Kimberly LENTZ Not Available Start: 09-09-2023 End: 09-09-2023 ambulatory MANUFACTURING SHIFT SUPERVISOR-C Anika Deepa Elaine Work Phone: [facility] Work Phone: Start: 09-09-2023 End: 09-09-2023 Patient encounter procedure MANUFACTURING SHIFT SUPERVISOR-C Anika Elaine Work Phone: [facility] Physician [facility] Work Phone: Start: 09-01-2023 End: 09-01-2023 ambulatory Anika Light Facility:[facility] Start: 09-01-2023 End: 09-01-2023 Admission to same day surgery center MANUFACTURING SHIFT SUPERVISOR-C Anika Elaine Work Phone: [facility] Work Phone: Start: 09-01-2023 End: 09-01-2023 ambulatory MANUFACTURING SHIFT SUPERVISOR-C Anika Light Work Phone: [facility] Work Phone: Start: 08-21-2023 End: 08-21-2023 Follow-up encounter [facility] Medication Therapy Management Comment on above: PAF (paroxysmal atri al fibrillation) (CMS-HCC) (Primary Dx) Start: 08-21-2023 End: 08-21-2023 ambulatory [facility] Start: 08-20-2023 End: 08-20-2023 ambulatory [facility] Work Phone: Start: 08-20-2023 End: 08-20-2023 Patient encounter [facility] Work Phone: Start: 08-20-2023 End: 09-17-2023 ambulatory [facility] Start: 08-13-2023 End: 08-13-2023 ambulatory [facility] Work Phone: Start: 08-13-2023 End: 08-13-2023 Patient encounter procedure [facility] Phys[facility] Work Phone: Start: 08-05-2023 Non-patient / Non-visit [facility] Physician [facility] Work Phone: Start: 08-01-2023 Non-patient / Non-visit [facility] Work Phone: Start: 07-30-2023 End: 07-30-2023 Office outpatient visit 25 minutes Cole Krishnan MD Work Phone: [facility] Comment on above: PAF (paroxysmal atri al fibrillation) ([facility]) (Primary Dx); Hyperlipidemia, unspecified hyperlipidemia type; Benign hypertensive heart disease without congestive heart failure Start: 07-30-2023 End: 07-30-2023 Follow-up encounter [facility] 1 [facility] Medication Therapy Management Comment on above: PAF (paroxysmal atri al fibrillation) ([facility]) (Primary Dx) Start: 07-30-2023 End: 07-30-2023 ambulatory [facility] Start: 07-29-2023 Telephone encounter Enedelia garay [facility] Cardiology Start: 07-21-2023 Orders Only Alicia Galvan RN [facility]icians Pulmonary/Sleep Medicine Comment on above: Shortness of breath; Chronic obstructive pulmonary disease, unspecified COPD type ([facility]) Start: 07-18-2023 End: 07-18-2023 Follow-up encounter [facility] 1 [facility] Medication Therapy Management Comment on above: PAF (paroxysmal atri al fibrillation) ([facility]) (Primary Dx) Start: 07-18-2023 End: 07-18-2023 ambulatory [facility] Start: 07-10-2023 End: 07-10-2023 Follow-up encounter [facility] 1 [facility] Medication Therapy Management Comment on above: PAF (paroxysmal atri al fibrillation) ([facility]) (Primary Dx) Start: 07-10-2023 End: 07-10-2023 ambulatory [facility] Start: 07-02-2023 End: 07-02-2023 ambulatory ANITACLINT MCCOY [facility] Start: 06-26-2023 End: 06-26-2023 Follow-up encounter [facility] 1 [facility] Medication Therapy Management Comment on above: PAF (paroxysmal atri al fibrillation) ([facility]) (Primary Dx) Start: 06-26-2023 End: 06-26-2023 ambulatory [facility] Start: 06-20-2023 End: 07-18-2023 [facility] Start: 06-17-2023 End: 06-17-2023 Office outpatient visit 15 minutes Iona Delarosa MD Work Phone: [facility] Comment on above: PAF (paroxysmal atri al fibrillation) ([facility]) (Primary Dx); Benign hypertensive heart disease without congestive heart failure; 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 ([facility]); Shortness of breath; COPD with acute exacerbation ([facility]) Start: 06-17-2023 End: 06-17-2023 Follow-up encounter [facility] 1 [facility] Medication Therapy Management Comment on above: PAF (paroxysmal atri al fibrillation) ([facility]) (Primary Dx) Start: 06-17-2023 End: 06-17-2023 ambulatory IONA DELAROSA [facility] Start: 06-16-2023 Telephone encounter Enedelia garay CMA [facility] Start: 06-10-2023 End: 06-10-2023 Follow-up encounter [facility] 1 [facility] Medication Therapy Management Comment on above: PAF (paroxysmal atri al fibrillation) ([facility]) (Primary Dx) Start: 06-10-2023 End: 06-10-2023 ambulatory [facility] Start: 06-09-2023 End: 06-09-2023 ambulatory Chester Lin Other [employer] Other Start: 06-09-2023 Telephone encounter Chester Lin [facility] Start: 06-05-2023 End: 06-05-2023 ambulatory LUCI GREEN Not Available Start: 06-05-2023 End: 06-05-2023 Follow-up encounter [facility] 1 [facility] Medication Therapy Management Comment on above: PAF (paroxysmal atri al fibrillation) ([facility]) (Primary Dx) Start: 06-05-2023 End: 06-05-2023 ambulatory [facility] Start: 06-03-2023 End: 06-03-2023 ambulatory Rin Sarmiento Other [employer] Other Start: 06-03-2023 Telephone encounter Rin Sarmiento [facility] Start: 06-02-2023 End: 06-02-2023 Follow-up encounter [facility] Medication Therapy Management Comment on above: PAF (paroxysmal atri al fibrillation) ([facility]) (Primary Dx) Start: 06-02-2023 End: 06-02-[address] 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 Phone: [facility] Comment on above: PAF (paroxysmal atri al fibrillation) ([facility]) (Primary Dx); Ventricular premature beats; Sinus pause; Benign hypertensive heart disease without congestive heart failure; [facility] current use of amiodarone Start: 05-28-2023 End: 07-09-2023 ambulatory TR JIMENEZ [facility] Start: 05-27-2023 End: 05-27-2023 ambulatory Chester Lin Other [employer] Other Start: 05-27-2023 Telephone encounter Elza Tonie [facility] Start: 05-26-2023 End: 05-26-2023 Follow-up encounter [facility] Medication Therapy Management Comment on above: PAF (paroxysmal atri al fibrillation) ([facility]) (Primary Dx) Start: 05-26-2023 End: 05-26-2023 ambulatory [facility] Start: 05-21-2023 End: 05-21-2023 Anticoagulant drug monitoring [facility] Medication Therapy Management Comment on above: PAF (paroxysmal atri al fibrillation) ([facility]) (Primary Dx) Start: 05-21-2023 End: 05-21-2023 ambulatory [facility] Start: 05-06-2023 End: 05-06-2023 ambulatory NAVA Bran [facility] Start: 04-23-2023 End: 04-23-2023 ambulatory Aziz Bakhous Other [employer] Other Start: 04-23-2023 Telephone encounter Aziz Bakhous [facility] Start: 04-22-2023 End: 04-22-2023 ambulatory Aziz Bakhous Other [employer] Other Start: 04-22-2023 Office outpatient vi sit 25 minutes Aziz Bakhous [facility] Start: 04-22-2023 End: 04-22-2023 Patient encounter procedure [facility] Work Phone: Start: 04-21-2023 End: 04-21-2023 ambulatory Aziz Bakhous Other [employer] Other Start: 04-21-2023 Telephone encounter Aziz Bakhous [facility] Start: 02-19-2023 (DM) Diabetes Tondra Mapus [facility] Start: 02-19-2023 End: 02-20-2023 ambulatory PHYSICIAN NO FAMILY [employer] Other Start: 02-12-2023 End: 02-12-2023 ambulatory Tondra Mapus Other [employer] Other Start: 02-12-2023 Nursing evaluation o f patient and report Tondra Mapus [facility] Start: 01-24-2023 End: 01-24-2023 ambulatory Tondra Mapus Other [employer] Other Start: 01-24-2023 Telephone encounter Tondra Mapus [facility] Start: 10-30-2022 End: 10-30-2022 ambulatory Tondra Mapus Other [employer] Other Start: 10-30-2022 Telephone encounter Tondra Mapus [facility] Start: 10-22-2022 End: 10-22-2022 ambulatory Aziz Bakhous Other [employer] Other Start: 10-22-2022 Office outpatient vi sit 25 minutes Aziz Bakhous [facility] Start: 10-16-2022 ambulatory ANIKA MARSMER Facility: Start: 08-20-2022 End: 08-20-2022 ambulatory Tondra Mapus Other [facility] Other Start: 08-20-2022 Telephone encounter Tondra Mapus [facility] Start: 08-19-2022 (DM) Diabetes Tondra Mapus [facility] Start: 08-19-2022 End: 08-19-2022 ambulatory Tondra Mapus Other [employer] Other Start: 08-02-2022 End: 08-02-2022 ambulatory Tondra Mapus Other [employer] Other Start: 08-02-2022 Telephone encounter Tondra Mapus [facility] Start: 05-30-2022 End: 05-30-2022 ambulatory Tondra Mapus Other [employer] Other Start: 05-30-2022 Telephone encounter Tondra Mapus [facility] Start: 05-01-2022 End: 05-01-2022 ambulatory Tondra Mapus Other [employer] Other Start: 05-01-2022 Telephone encounter Tondra Mapus [facility] Start: 04-01-2022 End: 04-01-2022 ambulatory Tondra Mapus Other [employer] Other Start: 04-01-2022 Telephone encounter Tondra Mapus [facility] Start: 02-27-2022 (DM) Diabetes Tondra Mapus [facility] Start: 02-27-2022 End: 02-27-2022 ambulatory Tondra Mapus Other [employer] Other Start: 01-28-2022 End: 01-28-2022 ambulatory Becca Michael Other [facility] Other Start: 01-28-2022 Telephone encounter Becca Michael [facility] Start: 01-09-2022 End: 01-09-2022 ambulatory Tondra Mapus Other [employer] Other Start: 01-09-2022 Telephone encounter Tondra Mapus [facility] Start: 12-31-2021 End: 12-31-2021 ambulatory Tondra Mapus Other [employer] Other Start: 12-31-2021 Telephone encounter Tondra Mapus [facility] Start: 12-17-2021 End: 12-17-2021 ambulatory Tondra Mapus Other [employer] Other Start: 12-17-2021 Telephone encounter Tondra Mapus [facility] Start: 11-25-2021 End: 11-25-2021 ambulatory Tondra Mapus Other [facility] Other Start: 11-25-2021 Telephone encounter Tondra Mapus [facility] Start: 11-02-2021 (FCCC INJ) FCCC Injection Marixa Fitt [facility] Start: 11-02-2021 End: 11-02-2021 ambulatory Marixa Fitt Other [facility] Other Start: 10-30-2021 End: 10-31-2021 ambulatory ANKIA ELAINE Facility:[facility] Start: 10-26-2021 End: 10-26-2021 ambulatory Tondra Mapus Other [facility] Other Start: 10-26-2021 Telephone encounter Tondra Mapus [facility] Start: 10-23-2021 End: 10-23-2021 ambulatory Aziz Bakhous Other [employer] Other Start: 10-23-2021 Office outpatient vi sit 15 minutes Aziz Bakhous [facility] Start: 10-22-2021 End: 10-22-2021 ambulatory Tondra Mapus Other [facility] Other Start: 10-22-2021 Telephone encounter Tondra Mapus [facility] Start: 09-10-2021 End: 09-10-2021 ambulatory Tondra Mapus Other [facility] Other Start: 09-10-2021 Telephone encounter Tondra Mapus [facility] Start: 05-23-2021 (DM) Diabetes Chester Lin [facility] Start: 05-23-2021 End: 05-23-2021 ambulatory Chester Lin Other [facility] [employer] Other Procedures Date Procedure Procedure Detail Performing Clinician Start: 09-01-2023 Needle biopsy MANUFACTURING SHIFT SUPERVISOR-C Charity Tapia Work Phone: Start: 08-21-2023 Prothrombin time [employer] Work Phone: Start: 07-30-2023 Prothrombin time [employer] Work Phone: Start: 07-30-2023 Ecg routine ecg w/le ast 12 lds w/i&r Tr Jimenez MULTI PURPOSE MACHINE OPERATOR-IT ADMIN Work Phone: Start: 07-30-2023 Follow-up visit Follow-up [...] w/le ast 12 lds w/i&r Tr Jimenez MULTI PURPOSE MACHINE OPERATOR-IT ADMIN Work Phone: Start: 05-26-2023 Prothrombin time [employer] Work Phone: Start: 05-21-2023 Prothrombin time [employer] Work Phone: Start: 05-09-2023 Adult depression scr eening assessment [facility] 1 Start: 02-14-2014 Colonoscopy [facility] 1 Plan of Treatment Date Care Activity Detail Author Start: 07-29-2024 Adult BMI Screening Adult BMI Screen ing [facility] Start: 07-29-2024 Tobacco Screening Tobacco Screening [facility] Start: 06-17-2024 Adult BMI Screening Adult BMI Screen ing [facility] Start: 06-17-2024 Tobacco Screening Tobacco Screening [facility] Start: 05-28-2024 Adult BMI Screening Adult BMI Screen ing [facility] Start: 05-28-2024 Tobacco Screening Tobacco Screening [facility] Start: 05-10-2024 Adult BMI Screening Adult BMI Screen ing [facility] Start: 05-09-2024 Depression Screening Depression Scre ening [facility] Start: 05-09-2024 Tobacco Screening Tobacco Screening [facility] Start: 01-18-2024 Influenza vaccination Influenza Vacc ine [facility] Start: 10-27-2023 End: 10-27-2023 Patient encounter procedure 10/27/2023 2:45 PM EDT [facility] [address] [place] [id number] Anita Mccoy MD [id number] [place] [id number] [facility] Pulmonary/Sleep Medicine Start: 09-16-2023 End: 09-16-2023 Follow-up encounter 09/16/2023 1:30 PM EDT Follow Up Anticoagulation [facility] Medication Therapy Management [address] [place] [address] [facility] Medication Therapy Management Start: 09-01-2023 [facility] Start: 09-01-2023 CT guided biopsy [facility] Start: 09-01-[address] guided biopsy [facility] Start: 08-20-2023 End: 08-20-2023 Follow-up encounter 08/20/2023 11:00 AM EDT Follow Up Anticoagulation [facility] Medication Therapy Management [address] [place] [address] [facility] Medication Therapy Management Start: 07-30-2023 End: 07-30-2023 Patient encounter procedure 07/30/2023 12:30 PM EDT Office Visit [facility] [address] [place] [address] Cole Krishnan MD [address] [place] [id number] Tr Jimenez, RADHA-IT ADMIN [address] [place] [address] [facility] Start: 07-30-2023 End: 07-30-2023 Follow-up encounter 07/30/2023 11:30 AM EDT Follow Up Anticoagulation [facility] Medication Therapy Management [address] [place] [place] [address] [facility] Medication Therapy Management Start: 07-18-2023 End: 07-18-2023 Follow-up encounter 07/18/2023 1:15 PM EST Follow Up Anticoagulation [facility] Medication Therapy Management [address] [place] [place] [address] [facility] Medication Therapy Management Start: 07-10-2023 End: 07-10-2023 Follow-up encounter 07/10/2023 1:15 PM EST Follow Up Anticoagulation [facility] Medication Therapy Management [address] [place] [address] [facility] Medication Therapy Management Start: 07-02-2023 End: 07-02-2023 Patient encounter procedure 07/02/2023 1:00 PM EST Appointment [facility] - Pulmonary Function [address] [place] [id number] Anita Mccoy MD [address] [place] [address] [facility] - Pulmonary Function Start: 06-20-2023 End: 06-20-2023 Follow-up encounter 06/20/2023 1:15 PM EST Follow Up Anticoagulation [facility] Medication Therapy Management [address] [place] [address] [facility] Medication Therapy Management Start: 06-17-2023 End: 06-17-2023 Patient encounter procedure 06/17/2023 1:00 PM EST Office Visit [facility] [address] [address] Iona Delaroas MD [address] [place] [address] [facility] Start: 06-17-2023 End: 06-17-2023 Follow-up encounter 06/17/2023 12:30 PM EST Follow Up Anticoagulation [facility] Medication Therapy Management [address] [place] [address] [facility] Medication Therapy Management Start: 06-10-2023 End: 06-10-2023 Follow-up encounter 06/10/2023 2:30 PM EST Follow Up Anticoagulation [facility] Medication Therapy Management [address] [place] [address] [facility] Medication Therapy Management Start: 06-05-2023 End: 06-05-2023 Follow-up encounter 06/05/2023 11:45 AM EST Follow Up Anticoagulation [facility] Medication Therapy Management [address] [place] [address] [facility] Medication Therapy Management Start: 06-04-2023 End: 05-28-2024 Basic metabolic 2000 panel - Serum or Plasma Basic Metabolic Panel Lab Routine Benign hypertensive heart disease without congestive heart failure Expected: 06/04/2023 (Approximate), Expires: 05/28/2024 [facility] Comment on above: Expected: 06/04/2023 (Approximate), Expires: 05/28/2024 Start: 06-02-2023 End: 06-02-2023 Follow-up encounter 06/02/2023 1:15 PM EST Follow Up Anticoagulation [facility] Medication Therapy Management [address] [place] [address] [facility] Medication Therapy Management Start: 05-28-2023 End: 05-28-2024 Wireless Telemetry (In Office) [facility] [employer] Work Phone: Comment on above: Expected: 05/28/2023 , Expires: 05/28/2024 Start: 05-28-2023 End: 05-28-2023 Patient encounter procedure 05/28/2023 1:00 PM EST Office Visit [facility] [address] [place] [address] Tr Jimenez, MULTI PURPOSE MACHINE OPERATOR-IT ADMIN [address] [place] [address] [facility] Start: 05-26-2023 End: 05-26-2023 Follow-up encounter 05/26/2023 1:45 PM EST Follow Up Anticoagulation [facility] Medication Therapy Management [address] [place] [address] [facility] Medication Therapy Management Start: 02-14-2017 Screening for malign ant neoplasm of colon Colonoscopy [facility] Start: 2005 Fall Risk Screening Fall Risk Screen ing [facility] Start: 1990 Administration of varicella zoster vaccine Zoster (Shingles) Vaccine (1 of 2) [facility] Start: 1959 DTaP,Tdap and Td Vaccines (1 - Tdap) DTaP,Tdap and Td Vaccines (1 - Tdap) [facility] Start: 1958 Adult BMI Follow Up Plan Adult BMI F ollow Up Plan [facility] Start: 1940 Medicare Annual Well ness Visit Medicare Annual Wellness Visit [facility] aPTT in Platelet poo r plasma by Coagulation assay [facility] CT guided biopsy [facility] End: 05-28-2024 Hepatic function 2000 panel - Serum or Plasma Hepatic function panel Lab Routine [facility] current use of amiodarone 1 Occurrences starting 05/28/2023 until 05/28/2024 [facility] Comment on above: 1 Occurrences starti ng 05/28/2023 until 05/28/2024 Patient Education [facility] Work Phone: Renal function 1999 panel - Serum or Plasma [facility] Renal function 1999 panel - Serum or Plasma [facility] Renal function 1999 panel - Serum or Plasma [facility] Renal function 1999 panel - Serum or Plasma [facility] Renal function 1999 panel - Serum or Plasma [facility] End: 05-28-2024 Thyroid profile includes TSH FT4 Thyroid profile includes TSH FT4 Lab Routine [facility] current use of amiodarone 1 Occurrences starting 05/28/2023 until 05/28/2024 [facility] Comment on above: 1 Occurrences starti ng 05/28/2023 until 05/28/2024 [facility] Immunizations Immunization Date Immunization Notes Care Provider Fa david 02-19-2023 Covid-19, Mrna, Lnp- s, Pf,anthony-sucrose,30 Mcg/0.3ml Fall23 [facility] 1 [facility] 02-19-2023 Influenza Vaccine, Quadrivalent, Adjuvanted [facility] 1 [facility] 02-19-2023 RSV, bivalent, prote in subunit RSVpreF, diluent reconstituted, 0.5 mL, PF [facility] 1 [facility] 02-19-2023 influenza virus vaccine, unspecified formulation [facility] 1 [facility] 03-11-2022 influenza virus vaccine, unspecified formulation P[facility] 1 [facility] 05-12-2021 influenza virus vaccine, unspecified formulation P[facility] 1 [facility] 03-12-2021 Influenza, High-dose , Quadrivalent P[facility] 1 [facility] 08-04-2020 COVID-19 Vaccine Zoya - Documentation Purposes Only Chester Lin Other [facility] 02-09-2020 Influenza, High-dose , Quadrivalent P[facility] 1 [facility] 02-01-2020 influenza virus vaccine, unspecified formulation P[facility] 1 [facility] 01-21-2018 influenza, high dose seasonal, preservative-free P[facility] 1 [facility] 06-19-2017 pneumococcal conjuga te vaccine, 13 valent P[facility] 1 [facility] 03-19-2017 influenza virus vaccine, unspecified formulation P[facility] 1 [facility] 03-19-2016 seasonal influenza, intradermal, preservative free [facility] 1 [facility] 02-06-2016 influenza, seasonal, injectable, preservative free [facility] 1 [facility] 03-31-2015 pneumococcal conjuga te vaccine, 13 valent P[facility] 1 [facility] 03-28-2015 influenza, seasonal, injectable Chester Lin Other [facility] Other 03-19-2015 pneumococcal polysaccharide vaccine, 23 valent P[facility] 1 [facility] 02-14-2015 influenza, seasonal, injectable P[facility] 1 [facility] 03-31-2014 influenza, seasonal, injectable P[facility] 1 [facility] 03-04-2012 influenza virus vaccine, whole virus [facility] 1 [facility] 03-04-2011 influenza virus vaccine, whole virus Pmh 1 [facility] Payers Date Payer Category Payer Self-pay [id number] 2017 Unknown [id number] 2015 Medicare ANTH MEDICARE ANTH MEDICARE ADVANTAGE [id number] 2015-Present [phone] [address] [place] [address] [id number] 1959 Medicare [id number] 2.16.840.1.450231.19 1940 Unknown [id number] 2.16.840.1.748121.3.579.2.593 1940 Unknown [id number] 2.16.840.1.676353.3.579.2.593 1940 Unknown [id number] 2.16.840.1.727946.3.579.2.125 9 1940 Unknown [id number] 2.16.840.1.017917.3.579.2.125 9 1940 Unknown [id number] 2.16.840.1.660409.3.579.2.128 6 1940 Unknown [id number] 2.16.840.1.666583.3.579.2.128 6 1940 Unknown [id number] 2.16.840.1.949399.3.579.2.128 6 1940 Unknown [id number] 2.16.840.1.054276.3.579.2.128 6 1940 Unknown [id number] 2.16.840.1.468727.3.579.2.128 6 1940 Unknown [id number] 2.16.840.1.500240.3.579.2.128 6 1940 Unknown [id number] 2.16.840.1.254967.3.579.2.128 6 1940 Unknown [id number] 2.16.840.1.747834.3.579.2.128 6 1940 Unknown [id number] 2.16.840.1.413397.3.579.2.128 1940 Unknown [id number] 2.16.840.1.371321.3.579.2.128 1940 Unknown [id number] 2.16.840.1.997597.3.579.2.128 1940 Unknown [id number] 2.16.840.1.398281.3.579.2.128 1940 Unknown [id number] 2.16.840.1.775871.3.579.2.128 1940 Unknown [id number] 2.16.840.1.044180.3.579.2.128 1940 Unknown [id number] 2.16.840.1.673908.3.579.2.128 1940 Unknown [id number] 2.16.840.1.528205.3.579.2.128 1940 Unknown [id number] 2.16.840.1.565065.3.579.2.128 1940 Unknown [id number] 2.16.840.1.137789.3.579.2.128 1940 Unknown [id number] 2.16.840.1.224597.3.579.2.128 1940 Unknown [id number] 2.16.840.1.283147.3.579.2.128 1940 Unknown [id number] 2.16.840.1.206901.3.579.2.128 1940 Unknown [id number] 2.16.840.1.205819.3.579.2.128 1940 Unknown [id number] 2.16.840.1.883701.3.579.2.128 1940 Unknown [id number] 2.16.840.1.528452.3.579.2.128 6 1940 Unknown [id number] 2.16.840.1.008810.3.579.2.128 6 Unknown Regular Auto/Liability [id number] Unknown [id number] 2.16.840.1.926251.3.579.2.531 Unknown [id number] 2.16.840.1.271973.3.579.2.531 Social History Date Type Detail Facility Unknown if ever smoked [facility] Other Start: 06-29-2020 End: 05-09-2023 Sex Assigned At [facility] Other Start: 03-11-2022 End: 09-23-2023 Tobacco smoking status NHIS Never smoked tobacco [facility] Start: 03-11-2022 Tobacco use and exposure Smokeless tobacco non-user [facility] Start: 05-09-2023 End: 07-30-2023 Alcohol intake Current non-drinker of alcohol (finding) [facility] Start: 06-29-2020 End: 05-09-[address] [facility] How often to you hav e a drink containing alcohol? Never [facility] How many standard drinks containing alcohol do you have on a typical day? Patient does not drink [facility] Start: 1940 Sex Assigned At Not on file P [facility] Start: 1940 Sex Assigned At Female F [facility] Medical Equipment Procedure Code Equipment Code Equipment Origin al Text Equipment Identifier Dates Start: 03-12-2017 Goals Date Patient Goal Desired Activity /State Personal health goal Comment on above: Formatting of this n ote might be different from the original. Evaluation of progress towards goal: return home self care with hsb support Clinical Notes 06-04-2020 to 08-21-2023 Alie Schumacher, [facility] - 08/21/2023 1:45 PM Jaime Schumacher, [facility] - 08/21/2023 1:45 PM Ross Tset MULTI PURPOSE MACHINE OPERATOR-IT ADMIN - 07/30/2023 12:30 PM Jaime Schumacher [facility] - 07/30/2023 11:30 AM EDT Note Date & Type Note Facility 08-21-2023 History of Presen t illness Narrative 15 minute kymb-cx-lsqq follow-up anticoagulation appointment. INR performed in office [...] Upcoming procedures: YES Kidney biopsy on 09/01/23; [facility]. Sarmiento Patient thinks she needs to [...] persists or worsens. Alie Schumacher RPH 08/21/[address] Sarmiento office ([phone]; [facility]) to inquire about procedural needs. LM requesting return call to clarify holding needs for biopsy on 09/01/23. Pending holding needs, clearance to hold may be needed by [facility]. Patient dx: Afib with CHADsVASc=4. Bridging not recommended. Last saw MANUFACTURING SHIFT SUPERVISOR Tony on 07/30/23. Alie Schumacher PharmD, [facility] August 21, 2023 1:49 PM Alie Schumacher RPH 08/21/23 1350 documented in this encounter [facility] 07-30-2023 History of Presen t illness Narrative Margie Kent Mauricio Date of visit: 07/30/2023 Date of : 1940 Age: 83 y.o. Patient Active Problem List Diagnosis COPD with acute exacerbation ([facility]) Bigeminy Benign hypertensive heart disease without congestive heart failure Obstructive sleep apnea syndrome Shortness of breath Abnormal result of cardiovascular function study Class 3 severe obesity in adult ([facility]) Ventricular premature beats 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 ([facility]) PAF (paroxysmal 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) ([facility]) Sinus pause Allergies Allergen Reactions Janeth Inhibitors [...] seen by EP service upon transfer to [facility] from [facility] in April. There was reports of post-conversion pause approximately 6 seconds while at [facility] though records were not obtainable for review. [...] kidney disease COPD (chronic obstructive pulmonary disease) ([facility]) DM type 2 (diabetes mellitus, type 2) ([facility]) HTN (hypertension) Hyperlipidemia 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 ([facility]) 09/03/2021 Hypothyroid KELECHI (obstructive sleep apnea) No [...] Reorder IMPRESSIONS/PLAN 1. PAF (paroxysmal 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) ([facility]) - amiodarone (PACERONE) 200 mg tablet; [...] RASHAD MERCHANT Referring Physician: RASHAD Cabrera [address] [place] [address] RASHAD Duff 07/30/23 1322 documented in this encounter [facility] 07-30-2023 History of Presen t illness Narrative 15 minute twgk-ht-cxkw follow-up anticoagulation appointment. INR performed in office [...] RPH 07/30/23 1153 documented in this encounter [facility] 07-29-2023 Miscellaneous Notes Called patient to remind them to bring their most current copy of their medication list with them to their appt. Patient verbalizes understanding. documented in this encounter [facility] 07-29-2023 Telephone encounter Note Called patient to remind them to bring their most current copy of their medication list with them to their appt. Patient verbalizes understanding. [facility] 07-21-2023 History of Presen t illness Narrative Albuterol refill sent to [facility] per pt request. documented in this encounter [facility] 07-18-2023 History of Presen t illness Narrative 15 minute fqgc-xl-kdxp follow-up anticoagulation appointment. INR performed in office [...] Patient instructed to continue warfarin 2.5 mg Sun/e/ and 1.25 mg AOD. Check INR in [...] RPH 07/18/23 1318 [facility] History of Presen t illness Narrative 15 minute dpth-tn-lynq follow-up anticoagulation appointment. INR performed in office [...] bleeding/bleeding that persists or worsens. Alie Schumacher [facility] 07/10/23 1328 documented in this encounter [facility] 06-26-2023 History of Presen t illness Narrative 15 minute cymj-xn-kpgm follow-up anticoagulation appointment. INR performed in office [...] bleeding/bleeding that persists or worsens. Alie Schumacher [facility] 06/26/23 1315 documented in this encounter [facility] 06-17-2023 History of Presen t illness Narrative Margie Martínez Date of visit: 06/17/2023 Date of : 1940 Age: 82 y.o. Patient Active Problem List Diagnosis COPD with acute exacerbation ([facility]) Bigeminy Benign hypertensive heart disease without congestive heart failure Obstructive sleep apnea syndrome Shortness of breath Abnormal result of cardiovascular function study Class 3 severe obesity in adult ([facility]) Ventricular premature beats 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 ([facility]) PAF (paroxysmal 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) ([facility]) Sinus pause Allergies Allergen Reactions Janeth Inhibitors [...] monitor which she is going to wear toncitysocializer. She is on long-term oxygen she is [...] kidney disease COPD (chronic obstructive pulmonary disease) ([facility]) DM type 2 (diabetes mellitus, type 2) ([facility]) HTN (hypertension) Hyperlipidemia 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 ([facility]) 09/03/2021 Hypothyroid KELECHI (obstructive sleep apnea) No [...] MERCHANT Referring Physician: RASHAD Cabrera [address] [facility] [place] [place] [address] documented in this encounter [facility] 06-17-2023 History of Presen t illness Narrative 15 minute zmmu-da-pxya follow-up anticoagulation appointment. INR performed in office [...] 1232 documented in this encounter [facility] 06-16-2023 Miscellaneous Notes Called patient to remind them to bring their most current copy of their medication list with them to their appt. Patient verbalizes understanding. documented in this encounter [facility] 06-16-2023 Telephone encounter Note Called patient to remind them to bring their most current copy of their medication list with them to their appt. Patient verbalizes understanding. [facility] 06-10-2023 History of Presen t illness Narrative 15 minute hdrd-qh-eiuy follow-up anticoagulation appointment. INR performed in office [...] RPH 06/10/23 1428 documented in this encounter [facility] 06-05-2023 History of Presen t illness Narrative 15 minute kzmi-jy-ahum follow-up anticoagulation appointment. INR performed in office [...] 1132 documented in this encounter [facility] 06-03-2023 Evaluation note Encounter Date Diagnosis Assessment Notes May, Edema (ICD-10 - R60.9) [facility] Other 01-15-2024 History of Present illness Narrative* Alie Schumacher RPH - 06/02/2023 1:15 PM EST 15 minute wele-kf-ixtl follow-up anticoagulation appointment. INR performed in office [...] Schumacher RPH 06/02/23 1424 [facility] History of Present illness Narrative* Tr Jimenez APRN-IT ADMIN - 05/28/2023 1:00 PM EST Margie Kent Mauricio Date of visit: 05/28/2023 Date of : 1940 Age: 82 y.o. Patient Active Problem List Diagnosis COPD with acute exacerbation ([facility]) Bigeminy Benign hypertensive heart disease without congestive heart failure Obstructive sleep apnea syndrome Shortness of breath Abnormal result of cardiovascular function study Class 3 severe obesity in adult ([facility]) Ventricular premature beats 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 ([facility]) PAF (paroxysmal 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) ([facility]) Sinus pause Allergies Allergen Reactions Janeth Inhibitors [...] Units total) by mouth in the morning. FREESTYLE KUSUM 2 SENSOR kit USE DIRECTED [...] states that she was hospitalized initially at [facility] for symptomatic 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. Upon resolution, she was discharged home though recurrent episodes warranted repeat visit. She was then seen at [facility] where she had episodes of conversion pauses reported. She was transferred then to [facility] evaluated by EP team. 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 PAF (paroxysmal 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) ([facility]) - POCT EKG - Wireless Telemetry (In Office); Future 2. Ventricular premature beats - POCT EKG 3. Sinus pause - Wireless Telemetry (In Office); Future 4. 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 Patient verbalizes understanding. [id number] Telephone encounter Note* Telephone Encounter - Elza Schilling CMA - 05/27/2023 9:42 AM EST Called patient to remind them to bring their most current copy of their medication list with them to their appt. Patient verbalizes understanding. [facility]-08-2024 History of Present illness Narrative* Alie Schumacher, [facility] - 05/26/2023 1:45 PM EST 15 minute jsix-mp-irwp follow-up anticoagulation appointment. INR performed in office [...] 7% (16.25 mg weekly). 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 Alie Schumacher, [facility] 05/26/23 1409 documented in [facility]24 History of Present illness Narrative* Aylin Chahal, [facility] - 05/21/2023 11:30 AM EST 30 minute bacd-gl-pqjb follow-up anticoagulation appointment. INR performed in office [...] Chahal RPH 05/21/23 1143 [facility] Evaluation note* Encounter Date Diagnosis Assessment Notes Treatment Notes Treatment Clinical Notes Apr, Nephritis (ICD-10 - N05.9) [facility] Other [id number] Evaluation note* Encounter Date Diagnosis Assessment Notes [...] check iron, folate and VB12 storage studies [facility] Other 12-04-2023 Evaluation note* Encounter Date Diagnosis Assessment Notes Treatment Notes Treatment Clinical Notes Apr, Edema (ICD-10 - R60.9) [facility] Other 10-04-2023 Evaluation note* Encounter Date Diagnosis Assessment Notes Treatment Notes Treatment Clinical Notes Feb, Dietary counseling and surveillance (ICD-10 - Z71.3) Maintaining a healthful weight material was printed see above Feb, Type 2 diabetes mellitus (ICD-10 - E11.9) Type 2 diabetes material was printed 1. Controlled, Type 2 diabetes with A1c 5.8%. 2. Blood glucose levels improved. 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 Keep f/u with nephrology Feb, BMI 40.0-44.9, adult (ICD-10 - Z68.41) [facility] Other 09-27-2023 Evaluation note* Encounter Date Diagnosis Assessment Notes Treatment Notes Treatment Clinical Notes Jan, Type 2 diabetes mellitus with diabetic chronic kidney disease (ICD-10 - E11.22) Pt here for appointment today with spouse, for [employer] 2 training. [employer] 2 training discussed, instructed on use and application. Patient brought in her own [employer] 2 reader which displays connected to a computer on the screen. Pt contacted [employer] for reader replacement. Pt also brought in new reader. New reader set up with pt. Instructed pt to send old reader back to [employer]. Pt states she will send old reader [...] spent on education by Rangel CANTU, RN [facility] Other 06-06-2023 Evaluation note* Encounter Date Diagnosis [...] On Bumex for volume management Avoid NSAIDs [facility] Other 04-03-2023 Evaluation note* Encounter Date Diagnosis Assessment Notes Treatment Notes Treatment Clinical Notes Aug, Dietary counseling and surveillance (ICD-10 - Z71.3) Maintaining a healthful weight material was printed see above Aug, Type 2 diabetes mellitus (ICD-10 - E11.9) Type 2 diabetes material was printed 1. Controlled, Type 2 diabetes with A1c 6.5%. 2. Blood glucose levels stable. According to [employer] 2 cgm download 08/06/2022-08/19/2022 Avg glucose 129. [...] hypertension material was printed on arb Aug, [facility] current use of insulin (ICD-10 - Z79.4) Aug, Vitamin B 12 deficiency (ICD-10 - E53.8) 09/08 b12 345 at target Aug, Albuminuria (ICD-10 - R80.9) Protein, urine material was printed Reviewed importance of glucose/bp control to prevent further nephropathy. 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-10 - Z79.4) [...] E11.649) Hypoglycemia material was printed see above [facility] Other 09-12-2022 Evaluation note* Encounter Date Diagnosis Assessment Notes Treatment Notes Treatment Clinical Notes Jan, Edema (ICD-10 - R60.9) [facility] Other 08-24-2022 Evaluation note* Encounter Date Diagnosis Assessment Notes Treatment Notes Treatment Clinical Notes Dec, Type 2 diabetes mellitus with diabetic chronic kidney disease (ICD-10 - E11.22) Dec, Type 2 diabetes mellitus (ICD-10 - E11.9) [facility] Other 06-17-2022 Evaluation note* Encounter Date Diagnosis Assessment Notes Treatment Notes Treatment Clinical Notes Oct, Vitamin B 12 deficiency (ICD-10 - E53.8) [facility] Other 06-07-2022 Evaluation note* Encounter Date Diagnosis [...] arthritis and sleep apnea has been addressed. [facility] Other 06-06-2022 Evaluation note* Encounter Date Diagnosis Assessment Notes Treatment Notes Treatment Clinical Notes Oct, Type 2 diabetes mellitus with diabetic chronic kidney disease (ICD-10 - E11.22) [facility] Other 04-25-2022 Evaluation note* Encounter Date Diagnosis Assessment Notes Treatment Notes Treatment Clinical Notes Aug, Type 2 diabetes mellitus with diabetic chronic kidney disease (ICD-10 - E11.22) [facility] Other 01-05-2022 Evaluation note* Encounter Date Diagnosis Assessment Notes Treatment Notes Treatment Clinical Notes May, Dietary counseling and surveillance (ICD-10 - Z71.3) Maintaining a healthful weight material was printed see above May, Type 2 diabetes mellitus (ICD-10 - E11.9) Type 2 diabetes material was printed 1. Controlled, Type 2 diabetes with A1c of 5.7% 2. Blood glucose levels stable. According to [employer] 2 cgm download 05/10/2021-05/23/2021 Avg glucose 128. [...] E11.649) Hypoglycemia material was printed see above [facility] Other 01-17-2021 History general Narrative - Reported* Type Description Date Medical History DM II Medical History HYPERTENSION Medical History HYPERLIPIDEMIA Medical History Hypothyroidism Medical History Covid 19 positive 06/04/2020 Surgical History HYSTERECTOMY 1965 Surgical History HERNIA REPAIR 1984 Surgical History BILATERAL KNEE REPLACEMENT 2003 Surgical History GALLBLADDER 2013 Surgical History tonsillectomy Surgical History cyst removal Surgical History appendectomy Surgical History bladder suspension, unspecified Surgical History Foot Surgery Hospitalization History SEE ABOVE Hospitalization History COPD 07/08 [facility] Other Evaluation noteNo InformationNortRedeemr Other Evaluation note* Diagnosis PAF (paroxysmal 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) ([facility] Primary Atrial [facility] Diagnosis PAF (paroxysmal 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) ([facility] Primary Atrial fibrillation [facility]* Diagnosis PAF (paroxysmal 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) ([facility] Primary Atrial fibrillation Ventricular premature beats Other premature beats Sinus pause Benign hypertensive heart disease without congestive heart failure Benign hypertensive heart disease without heart failure [facility] current use of amiodarone documented in this encounter [facility]* Diagnosis PAF (paroxysmal 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) ([facility] Primary Atrial fibrillation [facility]* Diagnosis PAF (paroxysmal 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) ([facility] Primary Atrial fibrillation documented in this encounter [facility] SystemEvaluation note* Diagnosis PAF (paroxysmal 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) ([facility] Primary Atrial fibrillation Benign hypertensive heart disease without congestive heart failure Benign hypertensive heart disease without heart failure 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 ([facility]) Shortness of breath COPD with acute exacerbation ([facility]) documented in this encounter [facility] SystemEvaluation note* Diagnosis PAF (paroxysmal 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) ([facility] Primary Atrial fibrillation documented in this encounter [facility] SystemEvaluation noteNo assessment information available [facility] Work Phone: evaluation note* Diagnosis PAF (paroxysmal 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) ([facility] Primary Atrial fibrillation documented in this encounter [facility] SystemEvaluation note* Diagnosis Shortness of breath Chronic obstructive pulmonary disease, unspecified COPD type ([facility]) documented in this encounter [facility] SystemEvaluation note* Diagnosis PAF (paroxysmal 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) ([facility])- Primary Atrial fibrillation Hyperlipidemia, unspecified hyperlipidemia type Benign hypertensive heart disease without congestive heart failure Benign hypertensive heart disease without heart failure documented in this encounter [facility] SystemEvaluation note* Diagnosis Onset Date Resolution Status Anemia acute BMI 50.0-59.9, adult acute Edema acute Hyperlipidemia acute [id number] acute Stage 3b chronic kidney disease (CKD) acute Type 2 diabetes mellitus wit h diabetic chronic kidney disease acute [facility] Work Phone: evalutljfd note* Diagnosis Onset Date Resolution Status Anemia acute BMI 50.0-59.9, adult acute Edema acute Hyperlipidemia acute [id number] acute Stage 3b chronic kidney disease (CKD) acute Type 2 diabetes mellitus wit h diabetic chronic kidney disease acute Diabetes acute Dietary counseling and surveillance acute HTN (hypertension) acute Hyperlipidemia acute Vitamin B 12 deficiency acut e [facility] Work Phone: Evaluation note* Diagnosis Onset Date Resolution Status Anemia acute BMI 50.0-59.9, adult acute Edema acute Hyperlipidemia acute [id number] acute Stage 3b chronic kidney disease (CKD) acute Type 2 diabetes mellitus wit h diabetic chronic kidney disease acute BMI 40.0-44.9, adult acute Diabetes acute Dietary counseling and surveillance acute HTN (hypertension) acute Hyperlipidemia acute Vitamin B 12 deficiency acut [facility] Work Phone: Evaluation note* Diagnosis Onset Date Resolution Status Anemia acute BMI 50.0-59.9, adult acute Edema acute Hyperlipidemia acute [id number] acute Stage 3b chronic kidney disease (CKD) acute Type 2 diabetes mellitus wit h diabetic chronic kidney disease acute BMI 40.0-44.9, adult acute Diabetes acute Dietary counseling and surveillance acute HTN (hypertension) acute Hyperlipidemia acute Vitamin B 12 deficiency acut e Anemia acute Edema acute Fibrillary glomerulonephritis acute Hyperparathyroidism acute [id number] acute Stage 3b chronic kidney disease (CKD) acute Type 2 diabetes mellitus wit h diabetic chronic kidney disease acute [facility] Work Phone: Evaluation note* Diagnosis Onset Date Resolution Status Anemia acute BMI 50.0-59.9, adult acute Edema acute Hyperlipidemia acute [id number] acute Stage 3b chronic kidney disease (CKD) acute Type 2 diabetes mellitus wit h diabetic chronic kidney disease acute BMI 40.0-44.9, adult acute Diabetes acute Dietary counseling and surveillance acute HTN (hypertension) acute Hyperlipidemia acute Vitamin B 12 deficiency acut e Anemia acute Edema acute Fibrillary glomerulonephritis acute Hyperparathyroidism acute [id number] acute Stage 3b chronic kidney disease (CKD) acute Type 2 diabetes mellitus wit h diabetic chronic kidney disease acute Anemia acute Edema acute Fibrillary glomerulonephritis acute Hyperparathyroidism acute [id number] acute Stage 3b chronic kidney disease (CKD) acute Type 2 diabetes mellitus wit h diabetic chronic kidney disease [facility] Work Phone: evaluation note* Diagnosis Onset Date Resolution Status Anemia acute BMI 50.0-59.9, adult acute Edema acute Hyperlipidemia acute [id number] acute Stage 3b chronic kidney disease (CKD) acute Type 2 diabetes mellitus wit h diabetic chronic kidney disease acute BMI 40.0-44.9, adult acute Diabetes acute Dietary counseling and surveillance acute HTN (hypertension) acute Hyperlipidemia acute Vitamin B 12 deficiency acut e Anemia acute Edema acute Fibrillary glomerulonephritis acute Hyperparathyroidism acute [id number] acute Stage 3b chronic kidney disease (CKD) acute Type 2 diabetes mellitus wit h diabetic chronic kidney disease acute Anemia acute Edema acute Fibrillary glomerulonephritis acute Hyperparathyroidism acute [id number] acute Stage 3b chronic kidney disease (CKD) acute Type 2 diabetes mellitus wit h diabetic chronic kidney disease acute Anemia acute Edema acute Fibrillary glomerulonephritis acute Hyperparathyroidism acute [id number] acute Stage 3b chronic kidney disease (CKD) acute Type 2 diabetes mellitus wit h diabetic chronic kidney disease acute [facility] Work Phone: Evaluation note* Diagnosis Onset Date Resolution Status Anemia acute BMI 50.0-59.9, adult acute Edema acute Hyperlipidemia acute [id number] acute Stage 3b chronic kidney disease (CKD) acute Type 2 diabetes mellitus wit h diabetic chronic kidney disease acute BMI 40.0-44.9, adult acute Diabetes acute Dietary counseling and surveillance acute HTN (hypertension) acute Hyperlipidemia acute Vitamin B 12 deficiency acut e Anemia acute Edema acute Fibrillary glomerulonephritis acute Hyperparathyroidism acute [id number] acute Stage 3b chronic kidney disease (CKD) acute Type 2 diabetes mellitus wit h diabetic chronic kidney disease acute Anemia acute Edema acute Fibrillary glomerulonephritis acute Hyperparathyroidism acute [id number] acute Stage 3b chronic kidney disease (CKD) acute Type 2 diabetes mellitus wit h diabetic chronic kidney disease acute Anemia acute Edema acute Fibrillary glomerulonephritis acute Hyperparathyroidism acute [id number] acute Stage 3b chronic kidney disease (CKD) acute Type 2 diabetes mellitus wit h diabetic chronic kidney disease acute Anemia acute Edema acute Fibrillary glomerulonephritis acute Hyperkalemia acute Hyperparathyroidism acute [id number] acute Stage 3b chronic kidney disease (CKD) acute Type 2 diabetes mellitus wit h diabetic chronic kidney disease acute [facility] Work Phone: Evaluation note* Diagnosis Onset Date Resolution Status BMI 40.0-44.9, adult acute Diabetes acute Dietary counseling and surveillance acute HTN (hypertension) acute Hyperlipidemia acute Vitamin B 12 deficiency acut e Anemia acute Edema acute Fibrillary glomerulonephritis acute Hyperparathyroidism acute [id number] acute Stage 3b chronic kidney disease (CKD) acute Type 2 diabetes mellitus wit h diabetic chronic kidney disease acute Anemia acute Edema acute Fibrillary glomerulonephritis acute Hyperparathyroidism acute [id number] acute Stage 3b chronic kidney disease (CKD) acute Type 2 diabetes mellitus wit h diabetic chronic kidney disease acute Anemia acute Edema acute Fibrillary glomerulonephritis acute Hyperparathyroidism acute [id number] acute Stage 3b chronic kidney disease (CKD) acute Type 2 diabetes mellitus wit h diabetic chronic kidney disease acute Anemia acute Edema acute Fibrillary glomerulonephritis acute Hyperkalemia acute Hyperparathyroidism acute [id number] acute Stage 3b chronic kidney disease (CKD) acute Type 2 diabetes mellitus wit h diabetic chronic kidney disease acute Anemia acute Edema acute Fibrillary glomerulonephritis acute Hyperkalemia acute Hyperparathyroidism acute [id number] acute Stage 3b chronic kidney disease (CKD) acute Type 2 diabetes mellitus wit h diabetic chronic kidney disease acute [facility] Work Phone: Evaluation note* Diagnosis Onset Date Resolution Status Anemia acute Edema acute Fibrillary glomerulonephritis acute Hyperparathyroidism acute [id number] acute Stage 3b chronic kidney disease (CKD) acute Type 2 diabetes mellitus wit h diabetic chronic kidney disease acute Anemia acute Edema acute Fibrillary glomerulonephritis acute Hyperparathyroidism acute [id number] acute Stage 3b chronic kidney disease (CKD) acute Type 2 diabetes mellitus wit h diabetic chronic kidney disease acute Anemia acute Edema acute Fibrillary glomerulonephritis acute Hyperparathyroidism acute [id number] acute Stage 3b chronic kidney disease (CKD) acute Type 2 diabetes mellitus wit h diabetic chronic kidney disease acute Anemia acute Edema acute Fibrillary glomerulonephritis acute Hyperkalemia acute Hyperparathyroidism acute [id number] acute Stage 3b chronic kidney disease (CKD) acute Type 2 diabetes mellitus wit h diabetic chronic kidney disease acute Anemia acute Edema acute Fibrillary glomerulonephritis acute Hyperkalemia acute Hyperparathyroidism acute [id number] acute Stage 3b chronic kidney disease (CKD) acute Type 2 diabetes mellitus wit h diabetic chronic kidney disease acute BMI 40.0-44.9, adult acute Diabetes acute Dietary counseling and surveillance acute HTN (hypertension) acute Hyperlipidemia acute Vitamin B 12 deficiency acut e [facility] Work Phone: Evaluation note* Diagnosis Onset Date Resolution Status Anemia acute Edema acute Fibrillary glomerulonephritis acute Hyperparathyroidism acute [id number] acute Stage 3b chronic kidney disease (CKD) acute Type 2 diabetes mellitus wit h diabetic chronic kidney disease acute Anemia acute Edema acute Fibrillary glomerulonephritis acute Hyperparathyroidism acute [id number] acute Stage 3b chronic kidney disease (CKD) acute Type 2 diabetes mellitus wit h diabetic chronic kidney disease acute Anemia acute Edema acute Fibrillary glomerulonephritis acute Hyperkalemia acute Hyperparathyroidism acute [id number] acute Stage 3b chronic kidney disease (CKD) acute Type 2 diabetes mellitus wit h diabetic chronic kidney disease acute Anemia acute Edema acute Fibrillary glomerulonephritis acute Hyperkalemia acute Hyperparathyroidism acute [id number] acute Stage 3b chronic kidney disease (CKD) acute Type 2 diabetes mellitus wit h diabetic chronic kidney disease acute BMI 40.0-44.9, adult acute Diabetes acute Dietary counseling and surveillance acute HTN (hypertension) acute Hyperlipidemia acute Vitamin B 12 deficiency acut e Anemia acute Stage 3a chronic kidney disease (CKD) acute [facility] Work Phone: Hospital Discharge instructionsAmbulatory Orders* AMB POC INR Time Frame: 2 Months, Location: Determined By Patient [facility] Work Phone: InstructionsNot on filedocumented [...] natural son Malignant neoplasm Unknown sister Unknown Relationship Condition Age at Onset Recorded Date/T elmer father Malignant neoplasm Unknown Unknown mother Hypertension Unknown Diabetes mellitus Unknown son Malignant neoplasm Unknown sister Unknown Advance [...] To Contact Diagnoses PAF (paroxysmal 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) ([facility]) Sinus pause Procedures Wireless Telemetry (In Office) Tr Jimenez, MULTI PURPOSE MACHINE OPERATOR-IT ADMIN [address] [place] [address] Referral ID Status Reason Start Date Expiration Date V isits Requested Visits Authorized [id number] Pending Review 05/28/2023 05/27/2024 1 1 Chief Complaint and Reason for Visit Chief Complaint Renal 6 Month Follow Up Chief Complaint RENAL 3 month Follow up Reason for Visit Anemia BMI 50.0-59.9, adult Edema Hyperlipidemia [id number] 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 Chief Complaint RENAL 3 month Follow up [employer] reader Reason for Visit Anemia BMI 50.0-59.9, adult Edema Hyperlipidemia [id number] 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 Diabetes Dietary counseling and surveillance HTN (hypertension) Hyperlipidemia Vitamin B 12 deficiency Chief Complaint RENAL 3 month Follow up [employer] reader N18.32 R60.9 D64.9 Z68.43 E78.5 E11.22 I12.9 Reason for Visit Anemia BMI 50.0-59.9, adult Edema Hyperlipidemia [id number] 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 BMI 40.0-44.9, adult Diabetes Dietary counseling and surveillance HTN (hypertension) Hyperlipidemia Vitamin B 12 deficiency Chief Complaint RENAL 3 month Follow up [employer] reader N18.32 R60.9 D64.9 Z68.43 E78.5 E11.22 I12.9 RENAL F/U Reason for Visit Anemia BMI 50.0-59.9, adult Edema Hyperlipidemia [id number] 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 BMI 40.0-44.9, adult Diabetes Dietary counseling and surveillance HTN (hypertension) Hyperlipidemia Vitamin B 12 deficiency Anemia Edema Fibrillary glomerulonephritis Hyperparathyroidism [id number] 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 Chief Complaint RENAL 3 month Follow up [employer] reader N18.32 R60.9 D64.9 Z68.43 E78.5 E11.22 I12.9 RENAL F/U 3 week f/u Reason for Visit Anemia BMI 50.0-59.9, adult Edema Hyperlipidemia [id number] 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 BMI 40.0-44.9, adult Diabetes Dietary counseling and surveillance HTN (hypertension) Hyperlipidemia Vitamin B 12 deficiency Anemia Edema Fibrillary glomerulonephritis Hyperparathyroidism [id number] 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 Anemia Edema Fibrillary glomerulonephritis Hyperparathyroidism [id number] 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 Chief Complaint RENAL 3 month Follow up k[employer] reader N18.32 R60.9 D64.9 Z68.43 E78.5 E11.22 I12.9 RENAL F/U 3 week f/u RENAL 2 MONTH F/U Reason for Visit Anemia BMI 50.0-59.9, adult Edema Hyperlipidemia [id number] 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 BMI 40.0-44.9, adult Diabetes Dietary counseling and surveillance HTN (hypertension) Hyperlipidemia Vitamin B 12 deficiency Anemia Edema Fibrillary glomerulonephritis Hyperparathyroidism [id number] 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 Anemia Edema Fibrillary glomerulonephritis Hyperparathyroidism [id number] 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 Anemia Edema Fibrillary glomerulonephritis Hyperparathyroidism [id number] 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 Chief Complaint RENAL 3 month Follow up kusum reader N18.32 R60.9 D64.9 Z68.43 E78.5 E11.22 I12.9 RENAL F/U 3 week f/u RENAL 2 MONTH F/U RENAL 3 WK INJ RETACRIT Reason for Visit Anemia BMI 50.0-59.9, adult Edema Hyperlipidemia [id number] 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 BMI 40.0-44.9, adult Diabetes Dietary counseling and surveillance HTN (hypertension) Hyperlipidemia Vitamin B 12 deficiency Anemia Edema Fibrillary glomerulonephritis Hyperparathyroidism [id number] 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 Anemia Edema Fibrillary glomerulonephritis Hyperparathyroidism [id number] 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 Anemia Edema Fibrillary glomerulonephritis Hyperparathyroidism [id number] 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 Anemia Edema Fibrillary glomerulonephritis Hyperkalemia Hyperparathyroidism [id number] 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 Chief Complaint k[employer]um reader N18.32 R60.9 D64.9 Z68.43 E78.5 E11.22 I12.9 RENAL F/U 3 week f/u RENAL 2 MONTH F/U RENAL 3 WK INJ RETACRIT RENAL 2 WK INJ / RETACRIT Reason for Visit BMI 40.0-44.9, adult Diabetes Dietary counseling and surveillance HTN (hypertension) Hyperlipidemia Vitamin B 12 deficiency Anemia Edema Fibrillary glomerulonephritis Hyperparathyroidism [id number] 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 Anemia Edema Fibrillary glomerulonephritis Hyperparathyroidism [id number] 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 Anemia Edema Fibrillary glomerulonephritis Hyperparathyroidism [id number] 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 Anemia Edema Fibrillary glomerulonephritis Hyperkalemia Hyperparathyroidism [id number] 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 Anemia Edema Fibrillary glomerulonephritis Hyperkalemia Hyperparathyroidism [id number] 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 Chief Complaint RENAL F/U 3 week f/u RENAL 2 MONTH F/U RENAL 3 WK INJ RETACRIT RENAL 2 WK INJ / RETACRIT METER Reason for Visit Anemia Edema Fibrillary glomerulonephritis Hyperparathyroidism [id number] 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 Anemia Edema Fibrillary glomerulonephritis Hyperparathyroidism [id number] 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 Anemia Edema Fibrillary glomerulonephritis Hyperparathyroidism [id number] 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 Anemia Edema Fibrillary glomerulonephritis Hyperkalemia Hyperparathyroidism [id number] 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 Anemia Edema Fibrillary glomerulonephritis Hyperkalemia Hyperparathyroidism [id number] 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 BMI 40.0-44.9, adult Diabetes Dietary counseling and surveillance HTN (hypertension) Hyperlipidemia Vitamin B 12 deficiency Chief Complaint 3 week f/u RENAL 2 MONTH F/U RENAL 3 WK INJ RETACRIT RENAL 2 WK INJ / RETACRIT METER RENAL 2 WK INJ / RETACRIT / NURSE Reason for Visit Anemia Edema Fibrillary glomerulonephritis Hyperparathyroidism [id number] 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 Anemia Edema Fibrillary glomerulonephritis Hyperparathyroidism [id number] 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 Anemia Edema Fibrillary glomerulonephritis Hyperkalemia Hyperparathyroidism [id number] 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 Anemia Edema Fibrillary glomerulonephritis Hyperkalemia Hyperparathyroidism [id number] 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 BMI 40.0-44.9, adult Diabetes Dietary counseling and surveillance HTN (hypertension) Hyperlipidemia Vitamin B 12 deficiency Anemia Stage 3a chronic kidney disease (CKD) Additional Source Comments REASON FOR VISIT (unrecogniz ed section and content) Reason Comments Follow-up EST PT IP TTH ATRIAL FIB-PER SUELLEN SCHED W/PT Reason Comments Follow-up HOSP F/U 05/08-05/10 TTH-L/S MBE-LABS 05/10TT-CHEST XRAY 05/09TT-ECHO 05/09TT-SCHD APPT W/PT Reason Comments Follow-up EST PT 9 WEEK FU Med Refill Amiodarone and crest or INFORMATION SOURCE (unrecogn ized section and content) DATE CREATED AUTHOR 10/27/2022 [facility] DATE CREATED AUTHOR AUTHOR'S ORGANIZ ATION 09/08/2023 [facility] DATE CREATED AUTHOR AUTHOR'S ORGANIZ ATION 09/13/2023 [facility] EPIC DATE CREATED AUTHOR AUTHOR'S ORGANIZ ATION 12/07/2023 [facility] Care Teams (unrecognized sec tion and content) Team Status: Active Member Role Status Dates Anika Light NP-C Primary Care Provider Active Team Status: Active Member Role Status Dates RD JiangC Primary Care Provider Active Start: September 16, 2023 Rin Sarmiento MD Attending Provider Active Star t: September 16, 2023 Team Status: Inactive Member Role Status Dates ALFREDO Jiang Primary Care Provider Active Start: September 23, [...] Status: Inactive Member Role Status Dates Anika Deepa Elaine , MANUFACTURING SHIFT SUPERVISOR-C Primary Care Provider Active Start: November 05, 2023 End: November 05, 2023 Rin Sarmiento MD Attending Provider Active Star t: November 05, 2023 End: November 05, 2023 Team Status: Active Member Role Status Dates Anika Light MANUFACTURING SHIFT SUPERVISOR-C Primary Care Provider Active Start: November 13, 2023 Rin Sarmiento MD Attending Provider Active Star t: November 13, 2023 Team Status: Inactive Member Role Status Dates Anika Light MANUFACTURING SHIFT SUPERVISOR-C Primary Care Provider Active Start: November 18, 2023 End: November 18, 2023 Rin Sarmiento MD Attending Provider Active Star t: November 18, 2023 End: November 18, 2023 Team Status: Active Member Role Status Dates Rin Sarmiento MD Attending Provider Active Star t: November 27, 2023 Anika Light MANUFACTURING SHIFT SUPERVISOR-C Primary Care Provider Active Start: November 27, 2023 Team Status: Inactive Member Role Status Dates Anika Light MANUFACTURING SHIFT SUPERVISOR-C Primary Care Provider Active Start: December 08, 2023 End: December 08, 2023 Chester Lin APRN Attending Provider Active Start: December 08, 2023 End: December 08, 2023 Team Status: Inactive Member Role Status Dates Anika Light MANUFACTURING SHIFT SUPERVISOR-C Primary Care Provider Active Start: December 11, 2023 End: December 11, 2023 Becca Rodriguez MD Attending Provider Active Start : December 11, 2023 End: December 11, 2023 Team Status: Active Member Role Status Dates Anika Light MANUFACTURING SHIFT SUPERVISOR-C Primary Care Provider Active Team Status: Inactive Member Role Status Dates Anika Light MANUFACTURING SHIFT SUPERVISOR-C Primary Care Provider Active Start: August 13, 2023 End: August 13, 2023 Rin Sarmiento MD Attending Provider Active Star t: August 13, 2023 End: August 13, 2023 Team Status: Inactive Member Role Status Dates Anika Light MANUFACTURING SHIFT SUPERVISOR-C Primary Care Provider Active Start: August 20, 2023 End: August 20, 2023 Chester Lin APRN Attending Provider Active Start: August 20, 2023 End: August 20, 2023 Team Status: Inactive Member Role Status Dates Anika Light MANUFACTURING SHIFT SUPERVISOR-C Primary Care Provider Active Start: September 01, 2023 End: September 01, 2023 Rin Sarmiento MD Attending Provider Active Star t: September 01, 2023 End: September 01, 2023 Team Status: Inactive Member Role Status Dates Anika Light MANUFACTURING SHIFT SUPERVISOR-C Primary Care Provider Active Start: September 09, 2023 End: September 09, 2023 Rin Sarmiento MD Attending Provider Active Star t: September 09, 2023 End: September 09, 2023 Team Status: Active Member Role Status Dates Anika Lihgt MANUFACTURING SHIFT SUPERVISOR-C Primary Care Provider Active Start: September 16, 2023 Rin Sarmiento MD Attending Provider Active Star t: September 16, 2023 Team Status: Inactive Member Role Status Dates Anika Light MANUFACTURING SHIFT SUPERVISOR-C Primary Care Provider Active Start: September 23, 2023 End: September 23, 2023 Rin Sarmiento MD Attending Provider Active Star t: September 23, 2023 End: September 23, 2023 Team Status: Active Member Role Status Dates Rin Sarmiento MD Attending Provider Active Star t: October 07, 2023 Anika Light MANUFACTURING SHIFT SUPERVISOR-C Primary Care Provider Active Start: October 07, 2023 Team Status: Inactive Member Role Status Dates Anika Light MANUFACTURING SHIFT SUPERVISOR-C Primary Care Provider Active Start: October 15, 2023 End: October 15, 2023 Rin Sarmiento MD Attending Provider Active Star t: October 15, 2023 End: October 15, 2023 Team Status: Active Member Role Status Dates Anika Light MANUFACTURING SHIFT SUPERVISOR-C Primary Care Provider Active Start: October 30, 2023 Rin Sarmiento MD Attending Provider Active Star t: October 30, 2023 Team Status: Inactive Member Role Status Dates Anika Light MANUFACTURING SHIFT SUPERVISOR-C Primary Care Provider Active Start: November 05, 2023 End: November 05, 2023 Rin Sarmiento MD Attending Provider Active Star t: November 05, 2023 End: November 05, 2023 Team Status: Active Member Role Status Dates Anika Light MANUFACTURING SHIFT SUPERVISOR-C Primary Care Provider Active Start: August 01, 2023 Rin Sarmiento MD Attending Provider Active Star t: August 01, 2023 Team Status: Active Member Role Status Dates Anika Light , RDC Primary Care Provider Active Start: August 05, 2023 Rin Sarmiento MD Attending Provider Active Star t: August 05, 2023 Emergency Services Dispatcher Relationship Specialty Start Date End Date Anika Light APRN-IT ADMIN [address] [facility], [place] [address] PCP - General Family Medicine 04/29/23 Emergency Services Dispatcher Relationship Specialty Start Date End Date Anika Light APRN-IT ADMIN [address] [facility], [place] [address] PCP - General Family Medicine 04/29/23 Emergency Services Dispatcher Relationship Specialty Start Date End Date Anika Light MULTI PURPOSE MACHINE OPERATOR-IT ADMIN [address] [facility], [place] [address] PCP - General Family Medicine 04/29/23 Emergency Services Dispatcher Relationship Specialty Start Date End Date Anika Light MULTI PURPOSE MACHINE OPERATOR-IT ADMIN [address] [facility], [place] [address] PCP - General Family Medicine 04/29/23 Emergency Services Dispatcher Relationship Specialty Start Date End Date Anika Light MULTI PURPOSE MACHINE OPERATOR-IT ADMIN [address] [facility], [place] [address] PCP - General Family Medicine 04/29/23 Emergency Services Dispatcher Relationship Specialty Start Date End Date Anika Light APRN-IT ADMIN [address] [facility], [place] [address] PCP - General Family Medicine 04/29/23 Emergency Services Dispatcher Relationship Specialty Start Date End Date Anika Light APRN-IT ADMIN [address] [facility], [facility] [place] [address] PCP - General Family Medicine 04/29/23 Team Status: Inactive Member Role Status Dates Rin Sarmiento MD Attending Provider Active Star t: April 22, 2023 End: April 22, 2023 Emergency Services Dispatcher Relationship Specialty Start Date End Date Anika Light APRN-IT ADMIN [address] [facility], [facility] [place] [address] PCP - General Family Medicine 04/29/23 Emergency Services Dispatcher Relationship Specialty Start Date End Date Anika Light APRN-IT ADMIN [address] [facility], [facility] [place] [address] PCP - General Family Medicine 04/29/23 Team Status: Active Member Role Status Dates RD JiangC Primary Care Provider Active Start: November 13, 2023 Rin Sarmiento MD Attending Provider Active Star t: November 13, 2023 Team Status: Inactive Member Role Status Dates ALFREDO Jiang Primary Care Provider Active Start: November 18, 2023 End: November 18, 2023 Rin Sarmiento MD Attending Provider Active Star t: November 18, 2023 End: November 18, 2023 Team Status: Active Member Role Status Dates Rin Sarmiento MD Attending Provider Active Star t: November 27, 2023 Anika Light NP-C Primary Care Provider Active Start: November 27, 2023 Team Status: Inactive Member Role Status Dates ALFREDO Jiang Primary Care Provider Active Start: December 08, 2023 End: December 08, 2023 Chester Lin APRN Attending Provider Active Start: December 08, 2023 End: December 08, 2023 Team Status: Inactive Member Role Status Dates Anika Light NP-C Primary Care Provider Active Start: December 11, 2023 End: December 11, 2023 Becca Rodriguez MD Attending Provider Active Start : December 11, 2023 End: December 11, 2023 Goals (unrecognized section and content) Goals [...] BE BASED ON THE PRIMARY CLINICAL RECORDS. [facility]. provides no warranty or guarantee of the accuracy or completeness of information in this document.
[2023-12-23 10:54] LABS: Hematocrit 30.9 % (36.0-48.0); Hemoglobin 9.2 g/dL (12.0-16.0); Mean Corpuscular HGB Conc 29.8 g/dL (29.9-35.2); Mean Corpuscular Hemoglobin 29.5 pg (26.7-34.0); Mean Platelet Volume 9.8 fL (9.5-13.5); Platelet Count 185 10^3/uL (150-450); Red Blood Count 3.12 10^6/uL (4.20-5.40); White Blood Count 5.8 10^3/uL (4.0-11.0)
[2023-12-23 11:04] LABS: Anion Gap 11.3; BUN Creatinine Ratio 18.6; Carbon Dioxide 30.7 mmol/L (21.0-32.0); Chloride 106 mmol/L (98-107); Chol HDL Ratio 2.2; Cholesterol 104 mg/dL (<=200); Estimated GFR (African America 27 (>=60); Estimated GFR (Non-African Ame 22 (>=60); Glucose 95 mg/dL (74-106); HDL Cholesterol 47 mg/dL (40-60); LDL Cholesterol Calculated 34.8 mg/dL; Phosphorus 4.8 mg/dL (2.6-4.7); Sodium 143 mmol/L (136-145); Triglycerides 111 mg/dL (<=150); VLDL CHOLESTEROL 22.2 mg/dL
== END 2023-12-23 10:03 | disposition home or self-care (01) ==
LOC: LAB 10:03
PROVIDERS: PCP Nurse Practitioner Family
DX: E11.22 Type 2 diabetes mellitus with diabetic chronic kidney disease (principal); Z79.4 Long term (current) use of insulin; E78.5 Hyperlipidemia, unspecified; D64.9 Anemia, unspecified; N18.31 Chronic kidney disease, stage 3a
CPT/HCPCS: 36415; 80061; 80069; 85027

== ENCOUNTER 2024-01-05 09:47 | Outpatient (OUT) | payer MEDICARE, SELFPAY ==
--- OUTSIDE RECORDS SUMMARY | 2024-01-05 10:04 | XMS_ITS | CCD ---
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 [id number], BHANU, RENAL, [id number], ADDONUAPLUS, PROCRERAT, FLAKO, MG, PTH, PT, CBCNO, PTT, URMACRERAT, FE and TIBC #### [address] Protein (U) [Mass/Vol] 300 mg/dL High Negative [facility] Comment on above: Order Comment: Name Collection Type:: Clean-Voided Midstream Performed By: #### V [id number], BHANU, RENAL, [id number], ADDONUAPLUS, PROCRERAT, FLAKO, MG, PTH, PT, CBCNO, PTT, URMACRERAT, FE and TIBC #### [address] RBC,Urine 50-100 High 0-4 [facility] Comment on above: Order Comment: Name Collection Type:: Clean-Voided Midstream Performed By: #### V [id number], BHANU, RENAL, [id number], ADDONUAPLUS, PROCRERAT, FLAKO, MG, PTH, PT, CBCNO, PTT, URMACRERAT, FE and TIBC #### [address] Specificy Himrod,Urine 1.015 Normal 1.001-1.03 0 [facility] Comment on above: Order Comment: Name Collection Type:: Clean-Voided Midstream Performed By: #### V [id number], BHANU, RENAL, [id number], ADDONUAPLUS, PROCRERAT, FLAKO, MG, PTH, PT, CBCNO, PTT, URMACRERAT, FE and TIBC #### [address] Squamous Epithelial Cell,Urine 0-1 Normal 0-2 [facility] Comment on above: Order Comment: Name Collection Type:: Clean-Voided Midstream Performed By: #### V [id number], BHANU, RENAL, [id number], ADDONUAPLUS, PROCRERAT, FLAKO, MG, PTH, PT, CBCNO, PTT, URMACRERAT, FE and TIBC #### [address] Urobilinogen,Urine Normal Normal Normal [facility] Comment on above: Order Comment: Name Collection Type:: Clean-Voided Midstream Performed By: #### V [id number], BHNAU, RENAL, [id number], ADDONUAPLUS, PROCRERAT, FLAKO, MG, PTH, PT, CBCNO, PTT, URMACRERAT, FE and TIBC #### [address] WBC,Urine 1-2 Normal 0-4 [facility] Comment on above: Order Comment: Name Collection Type:: Clean-Voided Midstream Performed By: #### V [id number], BHANU, RENAL, [id number], ADDONUAPLUS, PROCRERAT, FLAKO, MG, PTH, PT, CBCNO, PTT, URMACRERAT, FE and TIBC #### [facility] [address] Erythrocyte distribution wid th Auto (RBC) [Ratio]Ordered By: Rin Sarmiento on 09-01-2023 Erythrocyte distribution width (RBC) [Ratio] 14.7 % 11.9-15.3 [facility] Ferritinon 09-01-2023 Ferritin [Mass/Vol] 16.5 ng/mL Normal 11.0-306.8 [facility] Comment on above: Performed By: #### V [id number], BHANU, RENAL, [id number], ADDONUAPLUS, PROCRERAT, FLAKO, MG, PTH, PT, CBCNO, PTT, URMACRERAT, FE and TIBC #### [facility] [address] Ferritin [Mass/volume] in Se rum or PlasmaOrdered By: Rin Sarmiento on 09-01-2023 Ferritin [Mass/Vol] 16.5 ng/mL 11.0-306.8 [facility] Folate [Mass/volume] in Seru m or PlasmaOrdered By: Rin Sarmiento on 09-01-2023 Folate [Mass/Vol] 16.5 ng/mL >5.9 [facility] Comment on above: Folate reference ran ge: >5.9 ng/mlThe WHO technical consultation on folate and vitamin [id number] has determined that folate concentrations lessthan 4 ng/ml are considered deficient. Glucose [Mass/volume] in Ser um or PlasmaOrdered By: Rin Sarmiento on 09-01-2023 Glucose [Mass/Vol] 121 mg/dL High 70-100 [facility] Comment on above: ADA recommended refe rence rangeRandom Glucose Reference Range is dependent on time and content of last meal. Glucose of more than 200 mg/dL in a nonstressed, ambulatory subject supports the diagnosis of Diabetes Mellitus. Hematocrit Auto (Bld) [Volum e fraction]Ordered By: Rin Sarmiento on 09-01-2023 Hematocrit (Bld) [Volume fraction] 25.0 % Low 34.0-46.4 [facility] Hemoglobin [Mass/volume] in BloodOrdered By: Rin Sarmiento on 09-01-2023 Hemoglobin (Bld) [Mass/Vol] 8.0 g/dL Low 11.8-15.4 [facility] Hemogram CBC Without Diffon 09-01-2023 Erythrocyte distribution width (RBC) [Ratio] 14.7 % Normal 11.9-15.3 [facility] Comment on above: Performed By: #### V [id number], BHANU, RENAL, [id number], ADDONUAPLUS, PROCRERAT, FLAKO, MG, PTH, PT, CBCNO, PTT, URMACRERAT, FE and TIBC #### [address] Hematocrit (Bld) [Volume fraction] 25.0 % Low 34.0-46.4 [facility] Comment on above: Performed By: #### V [id number], BHANU, RENAL, [id number], ADDONUAPLUS, PROCRERAT, FLAKO, MG, PTH, PT, CBCNO, PTT, URMACRERAT, FE and TIBC #### [facility] [address] Hemoglobin (Bld) [Mass/Vol] 8.0 g/dL Low 11.8-15.4 [facility] Comment on above: Performed By: #### V [id number], BHANU, RENAL, [id number], ADDONUAPLUS, PROCRERAT, FLAKO, MG, PTH, PT, CBCNO, PTT, URMACRERAT, FE and TIBC #### [address] MCH (RBC) [Entitic mass] 29.3 pg Normal 24.7-34.3 [facility] Comment on above: Performed By: #### V [id number], BHANU, RENAL, [id number], ADDONUAPLUS, PROCRERAT, FLAKO, MG, PTH, PT, CBCNO, PTT, URMACRERAT, FE and TIBC #### [address] MCV (RBC) [Entitic vol] 92.0 fL Normal 80-100 [facility] Comment on above: Performed By: #### V [id number], BHANU, RENAL, [id number], ADDONUAPLUS, PROCRERAT, FLAKO, MG, PTH, PT, CBCNO, PTT, URMACRERAT, FE and TIBC #### [address] Mean Corpuscular HGB Conc 31.9 g/dL Low 32.0-35.0 [facility] Comment on above: Performed By: #### V [id number], BHANU, RENAL, [id number], ADDONUAPLUS, PROCRERAT, FLAKO, MG, PTH, PT, CBCNO, PTT, URMACRERAT, FE and TIBC #### [address] Platelet mean volume (Bld) [Entitic vol] 8.1 fL Normal 6.3-10.7 [facility] Comment on above: Result Comment: PERF ORMED BY: [place] [address] PATHOLOGIST [employer] JEWELL ROWLEY M.D. Performed By: #### V [id number], BHANU, RENAL, [id number], ADDONUAPLUS, PROCRERAT, FLAKO, MG, PTH, PT, CBCNO, PTT, URMACRERAT, FE and TIBC #### [address] Platelets (Bld) [#/Vol] 214 10*3/uL Normal 150-450 [facility] Comment on above: Performed By: #### V [id number], BHANU, RENAL, [id number], ADDONUAPLUS, PROCRERAT, FLAKO, MG, PTH, PT, CBCNO, PTT, URMACRERAT, FE and TIBC #### [address] [place] [address] [place] RBC (Bld) [#/Vol] 2.72 10*6/uL Low 3.60-5.00 [facility] Comment on above: Performed By: #### V [id number], BHANU, RENAL, [id number], ADDONUAPLUS, PROCRERAT, FLAKO, MG, PTH, PT, CBCNO, PTT, URMACRERAT, FE and TIBC #### [facility] [address] [place] [id number] [facility] WBC (Bld) [#/Vol] 4.7 10*3/uL Normal 3.8-11.6 [facility] Comment on above: Performed By: #### V [id number], BHANU, RENAL, [id number], ADDONUAPLUS, PROCRERAT, FLAKO, MG, PTH, PT, CBCNO, PTT, URMACRERAT, FE and TIBC #### [facility] [address] INR in Platelet poor plasma by Coagulation assayOrdered By: Rin Sarmiento on 09-01-2023 INR Coag (PPP) [Relative time] 1.0 {INR} [facility] Comment on above: INR Therapeutic Rang e [...] on 09-01-2023 Iron [Mass/Vol] 122 ug/dL 50-212 [facility] Iron and TIBC Profileon 08-17 % Iron Saturation 33.9 % Normal 20-50 [facility] Comment on above: Performed By: #### V [id number], BHANU, RENAL, [id number], ADDONUAPLUS, PROCRERAT, FLAKO, MG, PTH, PT, CBCNO, PTT, URMACRERAT, FE and TIBC #### [facility] [address] Iron [Mass/Vol] 122 ug/dL Normal 50-212 [facility] Comment on above: Performed By: #### V [id number], BHANU, RENAL, [id number], ADDONUAPLUS, PROCRERAT, FLAKO, MG, PTH, PT, CBCNO, PTT, URMACRERAT, FE and TIBC #### [facility] [address] Total Iron Binding Capacity 360 ug/dL Normal 255-450 [facility] Comment on above: Performed By: #### V [id number], BHANU, RENAL, [id number], ADDONUAPLUS, PROCRERAT, FLAKO, MG, PTH, PT, CBCNO, PTT, URMACRERAT, FE and TIBC #### [facility] [address] Transferrin [Mass/Vol] 257 mg/dL Normal 203-362 [facility] Comment on above: Performed By: #### V [id number], BHANU, RENAL, [id number], ADDONUAPLUS, PROCRERAT, FLAKO, MG, PTH, PT, CBCNO, PTT, URMACRERAT, FE and TIBC #### [facility] [address] Iron binding capacity [Mass/ volume] in Serum or PlasmaOrdered By: Rin Sarmiento on 09-01-2023 Iron binding capacity [Mass/Vol] 360 ug/dL 255-450 [facility] Iron saturation [Mass Fracti on] in Serum or PlasmaOrdered By: Rin Sarmiento on 09-01-2023 Iron saturation [Mass fraction] 33.9 % 20-50 [facility] Ketones Auto test strip (U) [Mass/Vol]Ordered By: Rni Sarmiento on 09-01-2023 Ketones (U) [Mass/Vol] Negative Negative Fi [facility] Nahun 09-01-2023 L Specimen: [id number] Received: 09/01/23 Status: SOUT Req Num: [id number] Spec Type: Surgical Subm Dr: Kj Urias Jr, DO Tissues: A Gross Only (RANDOM KIDNEY BX) Procedures: Level 1 Gross Age/ Patient Sex Location Account Attending Physician MauricioMargie M 83/F CT [id number] Rin Sarmiento MD SPEC NUM: [id number] RECD: 09/01/23 STATUS: SOUT REQ NUM: [id number] DEMAR: 09/01/23-[address]: Kj Urias Jr, DO ENTERED: 09/01/[address] [facility] [address]: SPEC TYPE: Surgical DEPT: S ORDERED: Level 1 Gross ORDERED: Level 1 Gross Supplemental Report Addendum 1 Entered: 09/03/23 Supplemental for findings of Consultation Report from [employer] in [facility]: DIAGNOSIS: -Fibrillary Glomerulopathy -Arterionephrosclerosis Note: -Please also see entire report on file for detailed description Addendum Signed (signature on file) Chris Lin MD 09/03/23 0933 Specimen: [id number] Received: 09/01/23 Status: SOUT Req Num: [id number] Spec Type: Surgical Subm Dr: Kj Urias Jr, DO Tissues: A Gross Only (RANDOM KIDNEY BX) Procedures: Level 1 Gross Patient: Dany Martínezlis Donte [id number] (Continued) Specimen: [id number] Received: 09/01/23 (Continued) Signed (signature on file) Chris Lin MD 09/03/23 0929 Specimen: [id number] Received: 09/01/23 Status: MAIA Cohen Num: [id number] Spec Type: Surgical Subm Dr: Kj Urias Jr, DO Tissues: A Gross Only (RANDOM KIDNEY BX) Procedures: Level 1 Gross Patient: Margie Martínez [id number] (Continued) Specimen: [id number] Received: 09/01/23 (Continued) Pathological Diagnosis Right kidney random core biopsy: -3 feldman-pink needle cores to be placed in special fixation solutions and to be forwarded to [employer] for final consultation interpretation. Gross only examination Gross Description In formalin labeled right kidney tissue are three feldman-pink needle cores ranging in size from 1.4 cm to 1.9 cm long x 0.1 cm average diameter. Submitted entirely in Lewis's solution and in 10% neutral buffered formalin. RG/CYC Clinical history: ANGELINA, proteinuria, hypoalbuminemia CPT Codes 65335 Specimen: [id number] Received: 09/01/23 Status: MAIA Cohen Num: [id number] Spec Type: Surgical Subm Dr: Kj Urias Jr, DO Tissues: A Gross Only (RANDOM KIDNEY BX) Procedures: Level 1 Gross Patient: Margie Martínez [id number] (Continued) Signed (signature on file) Grover-Lloyd Lin MD 09/03/23 0929 Normal [facility] Laboratory - UrinalysisOrder ed By: Rin Sarmiento on 09-01-2023 Hyaline casts LM Ql (Urine sed) 0-8 [LPF] 0-8 [facility] Leukocytes [#/volume] correc katy for nucleated erythrocytes in Blood by Automated counOrdered By: Rin Sarmiento on 09-01-2023 WBC corrected for nucl RBC Auto (Bld) [#/Vol] 4.7 10*3/uL 3.8-11.6 [facility] MCH Auto (RBC) [Entitic mass ]Ordered By: Rin Sarmiento on 09-01-2023 MCH (RBC) [Entitic mass] 29.3 pg 24.7-34.3 [facility] MCHC Auto (RBC) [Mass/Vol]Or dered By: Rin Sarmiento on 09-01-2023 MCHC (RBC) [Mass/Vol] 31.9 g/dL Low 32.0-35.0 [facility] MCV Auto (RBC) [Entitic vol] Ordered By: Rin Sarmiento on 09-01-2023 MCV (RBC) [Entitic vol] 92.0 fL 80-100 [facility] Magnesiumon 09-01-2023 Magnesium [Mass/Vol] 1.9 mg/dL Normal 1.9-2.7 [facility] Comment on above: Performed By: #### V [id number], BHANU, RENAL, [id number], ADDONUAPLUS, PROCRERAT, FLAKO, MG, PTH, PT, CBCNO, PTT, URMACRERAT, FE and TIBC #### [facility] [address] Magnesium [Mass/volume] in S adriana or PlasmaOrdered By: Rin Sarmiento on 09-01-2023 Magnesium [Mass/Vol] 1.9 mg/dL 1.9-2.7 [facility] MicroAlb Creat Ratio,Uon Albumin DL <= 20 mg/L (U) [Mass/Vol] mg/dL High 0.0-1.8 [facility] Comment on above: Performed By: #### V [id number], BHANU, RENAL, [id number], ADDONUAPLUS, PROCRERAT, FLAKO, MG, PTH, PT, CBCNO, PTT, URMACRERAT, FE and TIBC #### [facility] [address] [place] [address] Creatinine, Urine (Random) 52.0 mg/dL Normal [facility] Comment on above: Result Comment: No r eference range established Performed By: #### V [id number], BHANU, RENAL, [id number], ADDONUAPLUS, PROCRERAT, FLAKO, MG, PTH, PT, CBCNO, PTT, URMACRERAT, FE and TIBC #### [facility] [address] Microalbumin/Creatinin e Ratio Not performed Normal 0.0-30.0 [facility] Comment on above: Performed By: #### V [id number], BHANU, RENAL, [id number], ADDONUAPLUS, PROCRERAT, FLAKO, MG, PTH, PT, CBCNO, PTT, URMACRERAT, FE and TIBC #### [facility] [address] [place] [address] [facility] Microalbumin [Mass/volume] i n UrineOrdered By: Rin Sarmiento on 09-01-2023 Albumin DL <= 20 mg/L (U) [Mass/Vol] mg/dL High 0.0-1.8 [facility] Nitrite Test strip Ql (U)Ord ered By: Rin Sarmiento on 09-01-2023 Nitrite Ql (U) Negative Negative [facility] No Panel InformationOrdered By: Rin Sarmiento on 09-01-2023 Estimated GFR (CKD-EPI) 24.043 mL/Min [facility] Creatinine Clearance (Chem 21.55 [facility] Parathyrin.intact [Mass/volu me] in Serum or PlasmaOrdered By: Rin Sarmiento on 09-01-2023 Parathyrin.intact [Mass/Vol] 188.2 pg/mL High 1288 [facility] Parathyroid Hormone Intacton 09-01-2023 Parathyroid Hormone Intact 188.2 pg/mL High [facility] Comment on above: Result Comment: PERF ORMED BY: [place] [address] PATHOLOGIST [employer] F[employer] JEWELL ROWLEY M.D. Performed By: #### V [id number], BHANU, RENAL, [id number], ADDONUAPLUS, PROCRERAT, FLAKO, MG, PTH, PT, CBCNO, PTT, URMACRERAT, FE and TIBC #### [facility] [address] [place] [id number] [facility] Partial Thromboplastin Timeo n 09-01-2023 aPTT Coag (Bld) [Time] 30.5 s Normal 25.1-36.5 Th e [facility] Comment on above: Result Comment: A he matocrit value greater than 55% may lead to inaccurate results in coagulation testing. Patients having hematocrit values >55% require a special collection tube for coagulation studies. Please contact the laboratory at [phone] for redraw instructions. PERFORMED BY: [place] [address] PATHOLOGIST [employer] FILLER JIANLAN SUN M.D. Performed By: #### V [id number], BHANU, RENAL, [id number], ADDONUAPLUS, PROCRERAT, FLAKO, MG, PTH, PT, CBCNO, PTT, URMACRERAT, FE and TIBC #### [facility] [address] Phosphate [Mass/volume] in S adriana or PlasmaOrdered By: Rin Sarmiento on 09-01-2023 Phosphate [Mass/Vol] 4.2 mg/dL 2.5-4.5 [facility] Platelet mean volume Auto (B ld) [Entitic vol]Ordered By: Rin Sarmiento on 09-01-2023 Platelet mean volume (Bld) [Entitic vol] 8.1 fL 6.3-10.7 [facility] Platelets Auto (Bld) [#/Vol] Ordered By: Rin Sarmiento on 09-01-2023 Platelets (Bld) [#/Vol] 214 10*3/uL 150-450 [facility] Potassium [Moles/volume] in Serum or PlasmaOrdered By: Rin Sarmiento on 09-01-2023 Potassium [Moles/Vol] 4.7 mmol/L 3.5-5.1 [facility] Protein Auto test strip (U) [Mass/Vol]Ordered By: Rin Sarmiento on 09-01-2023 Protein (U) [Mass/Vol] 300 mg/dL High Negative [facility] Protein Creat Ratio Ur Rando mon 09-01-2023 Protein (U) [Mass/Vol] 199 mg/dL High 0-9 [facility] Comment on above: Performed By: #### V [id number], BHANU, RENAL, [id number], ADDONUAPLUS, PROCRERAT, FLAKO, MG, PTH, PT, CBCNO, PTT, URMACRERAT, FE and TIBC #### [facility] [address] [place] [id number] [facility] Urine Protein/Creatinine Ratio 3827 mg/g{Cre} High 0-200 [facility] Comment on above: Performed By: #### V [id number], BHANU, RENAL, [id number], ADDONUAPLUS, PROCRERAT, FLAKO, MG, PTH, PT, CBCNO, PTT, URMACRERAT, FE and TIBC #### [facility] [address] [place] [address] [place] Protein [Mass/volume] in Uri neOrdered By: Rin Sarmiento on 09-01-2023 Protein (U) [Mass/Vol] 199 mg/dL High 0-9 [facility] Prothrombin Time INRon 08-31 INR Coag (PPP) [Relative time] 1.0 {INR} Normal [facility] Comment on above: Result [...] 3 - 4.5 Performed By: #### V [id number], BHANU, RENAL, [id number], ADDONUAPLUS, PROCRERAT, FLAKO, MG, PTH, PT, CBCNO, PTT, URMACRERAT, FE and TIBC #### [facility] [address] [place] [address] [place] PT Coag (PPP) [Time] 11.4 s Normal 9.0-12.9 [facility] Comment on above: Result Comment: A he matocrit value greater than 55% may lead to inaccurate results in coagulation testing. Patients having hematocrit values >55% require a special collection tube for coagulation studies. Please contact the laboratory at [phone] for redraw instructions. Performed By: #### V [id number], BHANU, RENAL, [id number], ADDONUAPLUS, PROCRERAT, FLAKO, MG, PTH, PT, CBCNO, PTT, URMACRERAT, FE and TIBC #### [facility] [address] [place] [address] [facility] Prothrombin time (PT)Ordered By: Rin Sarmiento on 09-01-2023 PT Coag (PPP) [Time] 11.4 s 9.0-12.9 [facility] Comment on above: A hematocrit value g reater than 55% may lead to inaccurate results in coagulation testing. Patients having hematocrit values >55% require a special collection tube for coagulation studies. Please contact the laboratory at [phone] for redraw instructions. RBC Auto (Bld) [#/Vol]Ordere d By: Rin Aleantonia on 09-01-2023 RBC (Bld) [#/Vol] 2.72 10*6/uL Low 3.60-5.00 [facility] Renal Function Panelon 08-31 Albumin [Mass/Vol] 3.6 g/dL Normal 3.5-5.7 [facility] Comment on above: Performed By: #### V [id number], BHANU, RENAL, [id number], ADDONUAPLUS, PROCRERAT, FLAKO, MG, PTH, PT, CBCNO, PTT, URMACRERAT, FE and TIBC #### [facility] [address] Anion gap [Moles/Vol] 9.2 mmol/L Normal 6.0-15.0 [facility] Comment on above: Performed By: #### V [id number], BHANU, RENAL, [id number], ADDONUAPLUS, PROCRERAT, FLAKO, MG, PTH, PT, CBCNO, PTT, URMACRERAT, FE and TIBC #### [facility] [address] Calcium [Mass/Vol] 8.9 mg/dL Normal 8.6-10.3 [facility] Comment on above: Performed By: #### V [id number], BHANU, RENAL, [id number], ADDONUAPLUS, PROCRERAT, FLAKO, MG, PTH, PT, CBCNO, PTT, URMACRERAT, FE and TIBC #### [facility] [address] Chloride [Moles/Vol] 107 mmol/L Normal 98-107 [facility] Comment on above: Performed By: #### V [id number], BHANU, RENAL, [id number], ADDONUAPLUS, PROCRERAT, FLAKO, MG, PTH, PT, CBCNO, PTT, URMACRERAT, FE and TIBC #### [facility] [address] CO2 [Moles/Vol] 30.5 mmol/L Normal 21.0-31.0 [facility] Comment on above: Performed By: #### V [id number], BHANU, RENAL, [id number], ADDONUAPLUS, PROCRERAT, FLAKO, MG, PTH, PT, CBCNO, PTT, URMACRERAT, FE and TIBC #### [address] Creatinine [Mass/Vol] 2.02 mg/dL High 0.60-1.20 [facility] Comment on above: Performed By: #### V [id number], BHANU, RENAL, [id number], ADDONUAPLUS, PROCRERAT, FLAKO, MG, PTH, PT, CBCNO, PTT, URMACRERAT, FE and TIBC #### [address] Creatinine Clr Calc Pharmacy 21.55 Normal [facility] Comment on above: Performed By: #### V [id number], BHANU, RENAL, [id number], ADDONUAPLUS, PROCRERAT, FLAKO, MG, PTH, PT, CBCNO, PTT, URMACRERAT, FE and TIBC #### [address] GFR/1.73 sq M.predicted MDRD (S/P/Bld) [Vol rate/Area] 24.043 mL/min/{1.73_m2} Normal [facility] Comment on above: Performed By: #### V [id number], BHANU, RENAL, [id number], ADDONUAPLUS, PROCRERAT, FLAKO, MG, PTH, PT, CBCNO, PTT, URMACRERAT, FE and TIBC #### [facility] [address] Glucose [Mass/Vol] 121 mg/dL High 70-100 [facility] Comment on above: Result Comment: [place] Glucose Reference Range is dependent on time and content of last meal. Glucose of more than 200 mg/dL in a nonstressed, ambulatory subject supports the diagnosis of Diabetes Mellitus. ADA recommended reference range Performed By: #### V [id number], BHANU, RENAL, [id number], ADDONUAPLUS, PROCRERAT, FLAKO, MG, PTH, PT, CBCNO, PTT, URMACRERAT, FE and TIBC #### [address] Phosphate [Mass/Vol] 4.2 mg/dL Normal 2.5-4.5 [facility] [facility] Comment on above: Performed By: #### V [id number], BHANU, RENAL, [id number], ADDONUAPLUS, PROCRERAT, FLAKO, MG, PTH, PT, CBCNO, PTT, URMACRERAT, FE and TIBC #### [address] Potassium [Moles/Vol] 4.7 mmol/L Normal 3.5-5.1 [facility] Comment on above: Performed By: #### V [id number], BHANU, RENAL, [id number], ADDONUAPLUS, PROCRERAT, FLAKO, MG, PTH, PT, CBCNO, PTT, URMACRERAT, FE and TIBC #### [address] Sodium [Moles/Vol] 142 mmol/L Normal 136-145 [facility] Comment on above: Performed By: #### V [id number], BHANU, RENAL, [id number], ADDONUAPLUS, PROCRERAT, FLAKO, MG, PTH, PT, CBCNO, PTT, URMACRERAT, FE and TIBC #### [address] Urea nitrogen [Mass/Vol] 32 mg/dL High 7-25 [facility] Comment on above: Performed By: #### V [id number], BHANU, RENAL, [id number], ADDONUAPLUS, PROCRERAT, FLAKO, MG, PTH, PT, CBCNO, PTT, URMACRERAT, FE and TIBC #### [address] Serum or plasma anion gap de terminationOrdered By: Rin Sarmiento on 09-01-2023 Anion gap [Moles/Vol] 9.2 mmol/L 6.0-15.0 [facility] Sodium [Moles/volume] in Ser um or PlasmaOrdered By: Rin Sarmiento on 09-01-2023 Sodium [Moles/Vol] 142 mmol/L 136-145 [facility] Sodium [Moles/volume] in Uri neOrdered By: Rin Sarmiento on 09-01-2023 Sodium (U) [Moles/Vol] 137 mmol/L [facility] Comment on above: No reference range e stablished Sodium, Urine (Random)on Sodium (U) [Moles/Vol] 137 mmol/L Normal Th e [facility] Comment on above: Result Comment: No r eference range established PERFORMED BY: [place] [address] PATHOLOGIST [employer] JEWELL ROWLEY M.D. Performed By: #### V [id number], BHANU, RENAL, [id number], ADDONUAPLUS, PROCRERAT, FLAKO, MG, PTH, PT, CBCNO, PTT, URMACRERAT, FE and TIBC #### [address] Specific gravity Auto test s trip (U) [Rel density]Ordered By: Rin Sarmiento on 09-01-2023 Specific gravity (U) [Rel density] 1.015 1.001-1.03 0 [facility] Squamous epithelial cells de tection in urine sediment by light microscopyOrdered By: Rin Sarmiento on 09-01-2023 Epithelial cells.squamous LM Ql (Urine sed) 0-1 [HPF] 0-2 [facility] Transferrin [Mass/volume] in Serum or PlasmaOrdered By: Rin Sarmiento on 04-15-2024 Transferrin [Mass/Vol] 257 mg/dL 203-362 [facility] Urea nitrogen [Mass/volume] in Serum or PlasmaOrdered By: Rin Sarmiento on 09-01-2023 Urea nitrogen [Mass/Vol] 32 mg/dL High 7-25 [facility] Urine bacteria detection by automated methodOrdered By: Rin Sarmiento on 09-01-2023 Bacteria Auto Ql (U) None seen None Seen [facility] Urine clarity by refractomet ry automatedOrdered By: Rin Sarmiento on 09-01-2023 Clarity Refractometry automated (U) Cloudy Abnormal Clear [facility] Urine glucose measurement by automated test strip (mass/volume)Ordered By: Rin Sarmiento on 09-01-2023 Glucose Auto test strip (U) [Mass/Vol] Normal mg/dL Normal [facility] Urine hemoglobin detection b y automated test stripOrdered By: Rin Sarmiento on 09-01-2023 Hemoglobin Auto test strip Ql (U) 1+ High Negative [facility] Urine leukocyte esterase det ection by automated test stripOrdered By: Rin Sarmiento on 09-01-2023 Leukocyte esterase Auto test strip Ql (U) Negative Negative [facility] Urine microalbumin/creatinin e mass ratioOrdered By: Rin Sarmiento on 09-01-2023 Albumin/Creatinine DL <= 20 mg/L (U) [Mass ratio] TNP [facility] Comment on above: Test not performed Urine protein/creatinine rat ioOrdered By: Rin Sarmiento on 09-01-2023 Protein/Creatinine (U) [Ratio] 3827 mg/g{Cre} High 0-200 [facility] Urobilinogen Auto test strip (U) [Mass/Vol]Ordered By: Rin Sarmiento on 09-01-2023 Urobilinogen (U) [Mass/Vol] Normal mg/dL Normal [facility] Vit. B12/Folate Profileon Cobalamin (Vitamin B12) [Mass/Vol] 862 pg/mL Normal 180-914 [facility] Comment on above: Performed By: #### V [id number], BHANU, RENAL, [id number], ADDONUAPLUS, PROCRERAT, FLAKO, MG, PTH, PT, CBCNO, PTT, URMACRERAT, FE and TIBC #### [facility] [address] Folate 16.5 ng/mL Normal >5.9 [facility] Comment on above: Result Comment: Arlen te reference range: >5.9 ng/ml The WHO technical consultation on folate and vitamin b12 deficiencies has determined that folate concentrations less than 4 ng/ml are considered deficient. Performed By: #### V [id number], BHANU, RENAL, [id number], ADDONUAPLUS, PROCRERAT, FLAKO, MG, PTH, PT, CBCNO, PTT, URMACRERAT, FE and TIBC #### [address] Vitamin B12 ser/plasOrdered By: Rin Sarmiento on 09-01-2023 Cobalamin (Vitamin B12) [Mass/Vol] 862 pg/mL 180-914 [facility] Vitamin D 25 Hydroxy Totalon 09-01-2023 Vitamin D 25 Hydroxy Total 18.3 ng/mL Low 30-100 [facility] Comment on above: Result Comment: YULY MIN D STATUS 25(OH)VITAMIN D RANGE (ng/mL) Deficient <20 Insufficient 20 to <30 Sufficient 30 to 100 Reference: Jacoby MF,Rell NC, Xochitl WILLIAMSON, et al. Evaluation,treatment, and prevention of vitamin D deficiency; an Endocrine Society clinical practice guideline. JCEM. 2010; 96(7):1911-30. PERFORMED BY: [place] [address] PATHOLOGIST [employer] JEWELL ROWLEY M.D. Performed By: #### V [id number], BHANU, RENAL, [id number], ADDONUAPLUS, PROCRERAT, FLAKO, MG, PTH, PT, CBCNO, PTT, URMACRERAT, FE and TIBC #### [address] Vitamin D+Metabolites [Mass/ volume] in Serum or PlasmaOrdered By: Rin Sarmiento on 09-01-2023 Vitamin D+Metabolites [Mass/Vol] 18.3 ng/mL Low 30-100 [facility] Comment on above: VITAMIN D STATUS 25( [place])VITAMIN D RANGE (ng/mL) Deficient <20 Insufficient 20 to <30Sufficient 30 to 100Reference: Jacoby MF,Rell NC, Xochitl WILLIAMSON, et al. Evaluation,treatment, and prevention of vitamin D deficiency; an Endocrine Society clinical practice guideline. JCEM. 2010; 96(7):1911-30. pH Auto test strip (U)Ordere d By: Rin Sarmiento on 09-01-2023 pH (U) 7.0 [pH] 5.0-9.0 [facility] POCT Protime / INRon 024 INR Coag (PPP) [Relative time] 2.2 {INR} Abnormal 0.8 - 1.2 [employer] Interpretation and review of laboratory results Abnormal [facility] HbA1c HPLC (Bld) [Mass fract ion]on 08-20-2023 HbA1c (Bld) [Mass fraction] 5.7 % [facility] No Panel Informationon 08-19 Bedside Glucose 106 [facility] No Panel Informationon 08-04 Miscellaneous Test COMMENT . [facility] Comment on above: Test Ordered: [id number] Prot Electro+Interp, 24-Hr UrProtein,Total,Urine 132.1 mg/dL CB Reference Range: Not Estab.Prot,24hr calculated 2741 [H ] mg/24 hr CB Reference Range: 30-150Albumin, U 66.3 % CB Reference Range: .Pjrdk-4-Kexuoefl, U 7.5 % CB Reference Range: .Klcor-8-Bkrbuxnc, U 10.6 % CB Reference Range: .Beta Globulin, U 11.9 % CB Reference Range: .Gamma Globulin, U 3.7 % CB Reference Range: .M-Tr, % Note: % CB Not Observed Reference Range: Not ObservedM-Tr, mg/24 hr USER EXPERIENCE TEAM LEAD NOLAB Reference Range: .Please note: Comment CB Reference Range: .Protein electrophoresis scan will follow via computer,mail, or air conditioning engineer delivery.P E Interpretation, U Comment CB Reference Range: .The urine protein electrophoresis pattern reflects thepresence of specific higher molecular mass proteins withmoderate proteinuria. This pattern may be characterized asrepresenting a severe selective glomerular nephropathyindicating increased glomerular permeability. Monoclonalprotein is not apparent.Performed at: [facility] [address] [id number] Director: Deshaun Hunter PhD, Phone: [phone] Activated partial thrombopla stin time (aPTT) in platelet poor plasma by coagulation aon 08-01-2023 aPTT Coag (PPP) [Time] 38.6 s 22.3-36.2 [facility] Atypical perinuclear antineu trophil cytoplasmic antibodies measurementon 08-01-2023 Neutrophil cytoplasmic Ab.perinuclear.atypica l IF (S) [Titer] <1:20 titer Neg:<1:20 [facility] Comment on above: The atypical pANCA p attern has been observed in asignificant percentage of patients with ulcerative colitis,primary sclerosing cholangitis and autoimmune hepatitis. Automated urine specific gra vity by refractometryon 08-01-2023 Specific gravity Refractometry automated (U) [Rel density] 1.020 1.005-1.02 5 [facility] Bilirubin Auto test strip (U ) [Mass/Vol]on 08-01-2023 Bilirubin (U) [Mass/Vol] Negative NEGATIVE [facility] Cefuroxime free [Mass/Vol]on 08-01-2023 Anti-Nuclear Antibody Profile Negative Negative [facility] Comment on above: Performed at: [facility] [address] [id number] Director: Deshaun Hunter PhD, Phone: [phone] Performed at: [employer] [id number] Director: Deshaun Hunter PhD, Phone: [phone] Color Auto (U)on 08-01-2023 Color (U) LT. YELLOW YELLOW [facility] Erythrocyte distribution wid th Auto (RBC) [Ratio]on 08-01-2023 Erythrocyte distribution width (RBC) [Ratio] 13.1 % 11.0-15.0 [facility] Estimated glomerular filtrat ion rate (GFR) non- Americanon 08-01-2023 GFR/1.73 sq M.predicted among non-blacks MDRD (S/P/Bld) [Vol rate/Area] 27 mL/min/{1.73_m2} >=60 [facility] Globulin Calc (S) [Mass/Vol] on 08-01-2023 Globulin (S) [Mass/Vol] 3.3 g/dL [facility] Glomerular basement membrane Ab [Units/volume] in Serum by Immunoassayon 08-01-2023 Glomerular basement membrane Ab IA Qn (S) <0.2 units 0.0-0.9 [facility] Comment on above: Performed at: [facility] [address] [id number] Director: Jhon Roberts MD, Phone: [phone] at: [facility] [address] [id number] Director: Deshaun Hunter PhD, Phone: [phone] HBV surface Ag IA Qlon 07-31 Hepatitis B Surface Antigen Negative Negative [facility] Comment on above: Performed at: [facility] [address] [id number] Director: Deshaun Hunter PhD, Phone: [phone] Performed at: [facility] [address] [id number] Director: Deshaun Hunter PhD, Phone: [phone] Hematocrit Auto (Bld) [Volum e fraction]on 08-01-2023 Hematocrit (Bld) [Volume fraction] 27.0 % 36.0-48.0 [facility] Hemoglobin [Mass/volume] in Bloodon 08-01-2023 Hemoglobin (Bld) [Mass/Vol] 7.8 g/dL 12.0-16.0 [facility] INR in Platelet poor plasma by Coagulation assayon 08-01-2023 INR Coag (PPP) [Relative time] 2.43 {INR} [facility] Comment on above: DESIRED INR:2.0-3.0 CONDITIONS NOT LISTED BELOW2.5-3.5 FOR PROSTHETIC HEART VALVE REPLACEMENT2.5-3.5 RECURRENT THROMBOSIS Immunofixation for Urineon 0 08-01-2023 Interpretation Immunofixation (U) [Interp] Comment . [facility] Comment on above: No monoclonality det ected.Performed at: [facility] [id number] Director: Deshaun Hunter PhD, Phone: [phone] Iron binding capacity [Mass/ volume] in Serum or Plasmaon 08-01-2023 Iron binding capacity [Mass/Vol] 270.0 ug/dL 250.0-450. 0 [facility] Iron saturation [Mass Fracti on] in Serum or Plasmaon 08-01-2023 Iron saturation [Mass fraction] 14.8 % [facility] Ketones Auto test strip (U) [Mass/Vol]on 08-01-2023 Ketones (U) [Mass/Vol] Negative NEGATIVE Fi [facility] Laboratory - Chemistry and C hemistry - challengeon 08-01-2023 Albumin [Mass/Vol] 2.7 g/dL 3.4-5.0 [facility] ALP [Catalytic activity/Vol] 50 U/L 46-116 [facility] ALT [Catalytic activity/Vol] 18 U/L 14-59 [facility] AST [Catalytic activity/Vol] 12 U/L 15-37 [facility] Bilirubin [Mass/Vol] 0.2 mg/dL 0.2-1.0 [facility] Calcium [Mass/Vol] 8.8 mg/dL 8.5-10.1 [facility] Chloride [Moles/Vol] 105 mmol/L 98-107 [facility] CO2 [Moles/Vol] 32.1 mmol/L 21.0-32.0 [facility] Cobalamin (Vitamin B12) [Mass/Vol] 603.0 pg/mL 193.0-986. 0 [facility] Creatinine [Mass/Vol] 1.80 mg/dL 0.55-1.02 [facility] Ferritin [Mass/Vol] 32.0 ng/mL 8.0-252.0 [facility] GFR/1.73 sq M.predicted MDRD (S/P/Bld) [Vol rate/Area] 33 mL/min/{1.73_m2} >=60 [facility] Glucose [Mass/Vol] 112 mg/dL 74-106 [facility] Iron [Mass/Vol] 40.0 ug/dL 50.0-170.0 [facility] Magnesium [Mass/Vol] 1.9 mg/dL 1.8-2.4 [facility] Potassium [Moles/Vol] 4.3 mmol/L 3.5-5.1 [facility] Protein [Mass/Vol] 6.0 g/dL 6.4-8.2 [facility] Sodium [Moles/Vol] 145 mmol/L 136-145 [facility] Urea nitrogen [Mass/Vol] 33.0 mg/dL 7.0-18.0 [facility] Urea nitrogen/Creatinine [Mass ratio] 18.3 mg/mg [facility] Laboratory - Urinalysison Protein (U) [Mass/Vol] 181.1 mg/dL <=11.9 F [facility] Leukocytes [#/volume] correc katy for nucleated erythrocytes in Blood by Automated counon 08-01-2023 WBC corrected for nucl RBC Auto (Bld) [#/Vol] 6.4 10 3/uL 4.0-11.0 [facility] MCH Auto (RBC) [Entitic mass ]on 08-01-2023 MCH (RBC) [Entitic mass] 29.2 pg 26.7-34.0 [facility] MCHC Auto (RBC) [Mass/Vol]on 08-01-2023 MCHC (RBC) [Mass/Vol] 28.9 g/dL 29.9-35.2 [facility] MCV Auto (RBC) [Entitic vol] on 08-01-2023 MCV (RBC) [Entitic vol] 101.1 fL 81.0-99.0 [facility] Myeloperoxidase Ab [Units/vo lume] in Serum by Immunoassayon 08-01-2023 Myeloperoxidase Ab IA Qn (S) <0.2 units 0.0-0.9 [facility] No Panel Informationon 07-31 25-Hydroxy Vitamin D Total 16.6 ng/mL [facility] Comment on above: <20 ng/mL Vit D defi cient20-<30 ng/mL Vit D [id number] ng/mL Vit D sufficient>100 ng/mL Potential Toxicity Folate 13.00 ng/mL 8.60-58.90 [facility] Miscellaneous Test COMMENT . [facility] Comment on above: Test Ordered: [id number] Cryoglobulin, Ql, Serum, RflxCryoglobulin, Ql, Serum, Rflx Comment Reference Range: None detectedNone Detected at 72 hoursThis test was developed and its performance characteristicsdetermined by [employer]. It has not been cleared orapproved by the Food and Drug Administration.Performed at: [facility] [address] [id number] Director: Deshaun Hunter PhD, Phone: [phone] Parathyroid Hormone (Intact) 60 pg/mL [facility] Comment on above: Performed at: [facility] [address] [id number] Director: eDshaun Hunter PhD, Phone: [phone] Perinuclear ANCA (p-ANCA) Antibody <1:20 titer Neg:<1:20 [facility] Comment on above: The presence of posi [...] only by EIA. Ref. AM J Clin [id number];111:507-513. Phosphorus Level 3.8 mg/dL 2.6-4.7 [facility] Urine Random Creatinine 27.68 mg/dL 20.00-300. 00 [facility] Platelet mean volume Auto (B ld) [Entitic vol]on 08-01-2023 Platelet mean volume (Bld) [Entitic vol] 10.5 fL 9.5-13.5 [facility] Platelets Auto (Bld) [#/Vol] on 08-01-2023 Platelets (Bld) [#/Vol] 227 10 3/uL 150-450 [facility] Protein Auto test strip (U) [Mass/Vol]on 08-01-2023 Protein (U) [Mass/Vol] 100 mg/dL NEG/TRACE Fi [facility] Proteinase 3 Ab [Units/volum e] in Serum by Immunoassayon 08-01-2023 Proteinase 3 Ab IA Qn (S) <0.2 units 0.0-0.9 [facility] Prothrombin time (PT)on 07-17 PT Coag (PPP) [Time] 24.5 s 9.0-11.6 [facility] RBC Auto (Bld) [#/Vol]on RBC (Bld) [#/Vol] 2.67 10 6/uL 4.20-5.40 [facility] Serum classic neutrophil cyt oplasmic antibody titer by immunofluorescenceon 08-01-2023 Neutrophil cytoplasmic Ab.classic IF (S) [Titer] <1:20 titer Neg:<1:20 [facility] Serum or plasma albumin/glob ulin mass ratioon 08-01-2023 Albumin/Globulin [Mass ratio] 0.8 {ratio} [facility] Serum or plasma anion gap de terminationon 08-01-2023 Anion gap [Moles/Vol] 12.2 mmol/L Fi [facility] Serum or plasma complement C 3 measurement (mass/volume)on 08-01-2023 Complement C3 [Mass/Vol] 140 mg/dL 82-167 [facility] Serum or plasma complement C 4 measurement (mass/volume)on 08-01-2023 Complement C4 [Mass/Vol] 30 mg/dL 12-38 [facility] Comment on above: Performed at: [facility] [employer] [address] [id number] Director: Deshaun Hunter PhD, Phone: [phone] Specific gravity Auto test s trip (U) [Rel density]on 08-01-2023 Specific gravity (U) [Rel density] CLEAR CLEAR [facility] Urine glucose measurement by test strip (mass/volume)on 08-01-2023 Glucose Test strip (U) [Mass/Vol] Negative NEGATIVE [facility] Urine hemoglobin detection b y automated test stripon 08-01-2023 Hemoglobin Auto test strip Ql (U) LARGE NEGATIVE [facility] Urine nitrite detection by a utomated test stripon 08-01-2023 Nitrite Auto test strip Ql (U) Negative NEGATIVE [facility] Urine protein/creatinine rat ioon 08-01-2023 Protein/Creatinine (U) [Ratio] 6.54 [facility] Urobilinogen Auto test strip (U) [Mass/Vol]on 08-01-2023 Urobilinogen Qn (U) 0.2 {Radha'U}/dL 0.2-1.0 [facility] pH Auto test strip (U)on pH (U) 7.0 [pH] 5.0-9.0 [facility] POCT EKGon 07-30-2023 [facility] POCT Protime / INRon 024 INR Coag (PPP) [Relative time] 2.3 {INR} Abnormal 0.8 - 1.2 [facility] Interpretation and review of laboratory results Abnormal [facility] POCT Protime / INRon 024 INR Coag (PPP) [Relative time] 2.2 {INR} Abnormal 0.8 - 1.2 [facility] Interpretation and review of laboratory results Abnormal [facility] POCT Protime / INRon 07-10- 024 INR Coag (PPP) [Relative time] 1.4 {INR} Abnormal 0.8 - 1.2 [facility] Interpretation and review of laboratory results Abnormal [facility] POCT Protime / INRon 024 INR Coag (PPP) [Relative time] 1.8 {INR} Abnormal 0.8 - 1.2 [facility] Interpretation and review of laboratory results Abnormal [facility] POCT Protime / INRon 06-17-2 024 INR Coag (PPP) [Relative time] 3.2 {INR} Abnormal 0.8 - 1.2 [facility] Interpretation and review of laboratory results Abnormal [facility] POCT Protime / INRon 024 INR Coag (PPP) [Relative time] 2.3 {INR} Abnormal 0.8 - 1.2 [facility] Interpretation and review of laboratory results Abnormal [facility] POCT Protime / INRon 024 INR Coag (PPP) [Relative time] 3.5 {INR} Abnormal 0.8 - 1.2 [facility] Interpretation and review of laboratory results Abnormal [facility] BASIC METABOLIC PANLon 06-02 Anion gap [Moles/Vol] 9 mmol/L Normal 5-15 [facility] Comment on above: Performed By: #### B MAGDALENA LIVR, THYR #### [facility] ([id number]) [address], [address] [place] [address] Calcium [Mass/Vol] 9.0 mg/dL Normal 8.5-10.5 [facility] Comment on above: Performed By: #### Shant NICHOLS LIVR, THYR #### [facility] ([id number]) [address], [address] [place] [address] Chloride [Moles/Vol] 106 mmol/L Normal 98-109 [facility] Comment on above: Performed By: #### Shant NICHOLS LIVR, THYR #### [facility] ([id number]) [address], [address] [place] [address] CO2 [Moles/Vol] 30 mmol/L Normal 22-32 [facility] Comment on above: Performed By: #### B MAGDALENA, LIVR, THYR #### [facility] ([id number]) [address], [address] [place] [address] Creatinine [Mass/Vol] 1.58 mg/dL High 0.40-1.00 [facility] Comment on above: Result Comment: METH OD TRACEABLE TO IDMS STANDARD Performed By: #### B MAGDALENA, LIVR, THYR #### [facility] ([id number]) [address], [address] [place] [address] GFR/1.73 sq M.predicted among non-blacks MDRD (S/P/Bld) [Vol rate/Area] 32 mL/min/{1.73_m2} Low >59 [facility] Comment on above: Result Comment: Reported eGFR is based on the CKD-EPI 2020 equation that does not use a race coefficient. Performed By: #### B MAGDALENA LIVDeisy THYR #### [facility] ([id number]) [address], [address] [place] [address] Glucose [Mass/Vol] 125 mg/dL High 65-99 [facility] Comment on above: Performed By: #### B MAGDALENA LIVDeisy, THYR #### [facility] ([id number]) [address] [place] [address] Potassium [Moles/Vol] 4.3 mmol/L Normal 3.5-5.0 [facility] Comment on above: Performed By: #### B MAGDALENA LIVR, THYR #### [facility] ([id number]) [address] [address] [place] [address] Sodium [Moles/Vol] 145 mmol/L Normal 134-146 [facility] Comment on above: Performed By: #### B MAGDALENA LIVDeisy, THYR #### [facility] ([id number]) [address] [address] [place] [address] Urea nitrogen [Mass/Vol] 28 mg/dL High 5-27 [facility] Comment on above: Performed By: #### B MAGDALENA LIVR, THYR #### [facility] ([id number]) [address] [address] [place] [address] LIVER PANELon 06-02-2023 Albumin [Mass/Vol] 3.3 g/dL Normal 3.2-5.3 [facility] Comment on above: Performed By: #### B MP, LIVR, THYR #### [facility] ([id number]) [address] [place] [address] ALP [Catalytic activity/Vol] 40 U/L Normal 39-130 [facility] Comment on above: Performed By: #### B MP, LIVR, THYR #### [facility] ([id number]) [address] [place] [address] ALT [Catalytic activity/Vol] 10 U/L Normal 0-31 [facility] Comment on above: Performed By: #### B MP, LIVR, THYR #### [facility] ([id number]) [address] [place] [address] AST [Catalytic activity/Vol] 10 U/L Normal 0-41 [facility] Comment on above: Performed By: #### B MP, LIVR, THYR #### [facility] ([id number]) [address] [place] [address] Bilirubin [Mass/Vol] 0.2 mg/dL Low 0.3-1.2 [facility] Comment on above: Performed By: #### B MP, LIVR, THYR #### [facility] ([id number]) [address] [place] [address] Bilirubin.direct [Mass/Vol] 0.0 mg/dL Normal 0.0-0.4 [facility] Comment on above: Performed By: #### B MP, LIVR, THYR #### [facility] ([id number]) [address] [place] [address] Protein [Mass/Vol] 5.6 g/dL Low 6.0-8.0 [facility] Comment on above: Performed By: #### B MP, LIVR, THYR #### [facility] ([id number]) [address] [place] [address] POCT Protime / INRon 024 INR Coag (PPP) [Relative time] 4.7 {INR} Abnormal 0.8 - 1.2 [facility] Interpretation and review of laboratory results Abnormal [facility] THYROID PROFILEon 06-02-2023 Free T4 [Mass/Vol] 0.96 ng/dL Normal 0.61-1.60 [facility] Comment on above: Performed By: #### B MP, LIVR, THYR #### [facility] ([id number]) [address], [address] [place] [address] TSH 7.63 uIU/mL High 0.49-4.67 [facility] Comment on above: Performed By: #### B MP, LIVR, THYR #### [facility] ([id number]) [address] [place] [address] POCT EKGOrdered By: Latia Garcia on 05-28-2023 [facility] POCT Protime / INRon 024 INR Coag (PPP) [Relative time] 3.3 {INR} Abnormal 0.8 - 1.2 [facility] Interpretation and review of laboratory results Abnormal [facility] POCT Protime / INRon 024 INR Coag (PPP) [Relative time] 4.6 {INR} Abnormal 0.8 - 1.2 [facility] Interpretation and review of laboratory results Abnormal [facility] A1C HEMOGLOBINon 02-19-2023 HbA1c (Bld) [Mass fraction] 5.8 % [facility] Glucose - FINGER STICKon Glucose [Mass/Vol] 174 mg/dL [facility] HbA1c (Bld) [Mass fraction]o n 02-19-2023 A1C HEMOGLOBIN [facility] [place] Other PROF 14(COMP METB)on 023 Albumin [Mass/Vol] 2.9 g/dL Critically low 3.4-5.0 [facility] Comment on above: Performed By: #### C MP #### [facility] [address] [place] [address] Dr. Lamar Lin Albumin/Globulin [Mass ratio] 0.8 {ratio} Normal [facility] Comment on above: Performed By: #### C MP #### [facility] [address] [address] [address] Lamar Lin ALP [Catalytic activity/Vol] 70 U/L Normal 46-116 [facility] Comment on above: Performed By: #### C MP #### [facility] [address] [place] [address] Dr. Lamar Lin ALT [Catalytic activity/Vol] 14 U/L Normal 14-59 [facility] Comment on above: Performed By: #### C MP #### [facility] [address] [place] [address] Dr. Lamar Lin Anion gap [Moles/Vol] 10.5 mmol/L Normal [facility] Comment on above: Performed By: #### C MP #### [facility] [address] [place] [address] Dr. Lamar Lin AST [Catalytic activity/Vol] 10 U/L Critically low 15-37 [facility] Comment on above: Performed By: #### C MP #### [facility] [address] [place] [address] Dr. Lamar Lin Bilirubin [Mass/Vol] 0.2 mg/dL Normal 0.2-1.0 [facility] Comment on above: Performed By: #### C MP #### [facility] [address] [place] [address] Dr. Lamar Lin Calcium [Mass/Vol] 9.4 mg/dL Normal 8.5-10.1 [facility] Comment on above: Performed By: #### C MP #### [facility] [address] [place] [address] Dr. Lamar Lin Chloride [Moles/Vol] 104 mmol/L Normal 98-107 [facility] Comment on above: Performed By: #### C MP #### [facility] [address] [address] [address] Lamar Lin CO2 [Moles/Vol] 34.9 mmol/L Critically high 21.0-32.0 [facility] Comment on above: Performed By: #### C MP #### [facility] [address] [address] [address] Lamar Lin Creatinine [Mass/Vol] 0.96 mg/dL Normal 0.55-1.02 [facility] Comment on above: Performed By: #### C MP #### [facility] [address] [address] [address] Lamar Lin EGFR-AF MONEGASQUE >60 Normal >=60 [facility] Comment on above: Performed By: #### C MP #### [facility] [address] [address] [address] Lamar Lin EGFR-NON AF MONEGASQUE 56 mL/min/1.73m2 Critically low >=60 [facility] Comment on above: Performed By: #### C MP #### [facility] [address] [address] [address] Lamar Lin Globulin (S) [Mass/Vol] 3.7 g/dL Normal [facility] Comment on above: Performed By: #### C MP #### [facility] [address] [address] [address] Lamar Lin Glucose [Mass/Vol] 132 mg/dL Critically high 74-106 [facility] Comment on above: Performed By: #### C MP #### [facility] [address] [address] [address] Lamar Lin Potassium [Moles/Vol] 4.4 mmol/L Normal 3.5-5.1 [facility] Comment on above: Performed By: #### C MP #### [facility] [address] [address] [address] Lamar Lin Protein [Mass/Vol] 6.6 g/dL Normal 6.4-8.2 [facility] Comment on above: Performed By: #### C MP #### [facility] [address] [address] [address] Lamar Lin Sodium [Moles/Vol] 145 mmol/L Normal 136-145 [facility] Comment on above: Performed By: #### C MP #### [facility] [address] [place], [place] [address] Dr. Lamar Lin Urea nitrogen [Mass/Vol] 28.0 mg/dL Critically high 7.0-18.0 [facility] Comment on above: Performed By: #### C MP #### [facility] [address] [address] [address] Lamar Lin Urea nitrogen/Creatinine [Mass ratio] 29.2 mg/mg Normal [facility] Comment on above: Performed By: #### C MP #### [facility] [address] [address] [address] Lamar Lin A1C with Estimated Average G donald 08-19-2022 HbA1c (Bld) [Mass fraction] 6.500 % High 4.3-5.6 % [employer] [facility] [place] Other HbA1c (Bld) [Mass fraction] 140 mg/dL [facility] Other Comprehensive Metabolic [facility]ane [facility] 08-19-2022 Albumin [Mass/Vol] 3.707524 g/dL Normal 3.5-5.7 g/dL [facility] Other Albumin/Globulin [Mass ratio] 1.7 {ratio} [facility] Other ALP [Catalytic activity/Vol] 56 U/L Normal 34-104 U/L [facility] Other ALT [Catalytic activity/Vol] 14 U/L Normal 7-52 U/L [facility] Other AST [Catalytic activity/Vol] 15 U/L Normal 13-39 U/L [facility] Other Bilirubin [Mass/Vol] 0.9709790 mg/dL Low 0.3- 1.0 mg/dL [facility] Other Calcium [Mass/Vol] 9.8739292 mg/dL Normal 8.6-10 .3 mg/dL [facility] Other Chloride [Moles/Vol] 103 mmol/L Normal 98-107 mmol/L [facility] Other CO2 [Moles/Vol] 34.71976149 mmol/L High 21.0-3 1.0 mmol/L [facility] Other Creatinine [Mass/Vol] 0.00744250 mg/dL Normal 0. 60-1.20 mg/dL [facility] Other GFR/1.73 sq M.predicted MDRD (S/P/Bld) [Vol rate/Area] mL/min/{1.73_m2} [facility] Other Glucose [Mass/Vol] 156 mg/dL High 70-100 mg/dL [facility] Other Potassium [Moles/Vol] 4.24384727 mmol/L Normal 3 .5-5.1 mmol/L [employer] Other Protein [Mass/Vol] 5.851706 g/dL Low 6.4-8.9 g/dL [facility] Other Sodium [Moles/Vol] 144 mmol/L Normal 136-145 mmol/L [facility] Other Urea nitrogen [Mass/Vol] 24 mg/dL Normal 7-25 mg/dL [facility] Other Comprehensive Metabolic Panel 2.1 g/dL [facility] Other Glucose - FINGER STICKon Glucose [Mass/Vol] 205 mg/dL [facility] Other Lipid Panelon 08-19-2022 Cholesterol [Mass/Vol] 172 mg/dL Normal 140-2 00 mg/dL [facility] Other Cholesterol in HDL [Mass/Vol] 33 mg/dL Low 35-85 mg/dL [place] [facility] Other Cholesterol in LDL Elph Qn 95 mg/dL Normal 0-100 mg/dL [facility] Other Cholesterol.total/Chol esterol in HDL [Mass ratio] 5.2 {ratio} <5.0 [facility] Other Lipid Panel 219 mg/dL High 0-149 mg/dL [facility] Other Lipid Panel 43 mg/dL [facility] Other MicroAlb Creat Ratio,Uon Albumin DL <= 20 mg/L (U) [Mass/Vol] mg/dL High 0.0-1.8 [facility] Other Albumin/Creatinine DL <= 20 mg/L (U) [Mass ratio] TNP 0.0-30.0 [facility] Other Creatinine (U) [Mass/Vol] 52.1385986 mg/dL [facility] Other Vitamin B12on 08-19-2022 Cobalamin (Vitamin B12) [Mass/Vol] 345 pg/mL Normal 180-914 pg/mL [facility] Other A1C HEMOGLOBINon 02-27-2022 HbA1c (Bld) [Mass fraction] 6.1 % [facility] Other Glucose - FINGER STICKon Glucose [Mass/Vol] 159 mg/dL [facility] Other HbA1c (Bld) [Mass fraction]o n 02-27-2022 A1C HEMOGLOBIN [facility] [place] Other FREE T4on 10-30-2021 Free T4 [Mass/Vol] 1.11 ng/dL Normal 0.76-1.46 [facility] Comment on above: Performed By: #### F T4 #### [facility] [address] [place] [address] Dr. Lamar Lin T4on 10-30-2021 T4 [Mass/Vol] 8.30 ug/dL Normal 4.80-13.90 [facility] Comment on above: Performed By: #### T 4, TSH #### [facility] [address] [address] [address] Lamar Lin TSHon 10-30-2021 TSH 2.475 uIU/mL Normal 0.358-3.74 0 [facility] Comment on above: Performed By: #### T 4, TSH #### [facility] [address] [address] [address] Lamar Lin Glucoseon 05-23-2021 Glucose [Mass/Vol] 167 mg/dL [facility] Other Vital Signs Date Time Vital Sign Value Performing Clinician Facility 12-30-2023 13:44-0400 Body height 152.4 cm [facility] 12-30-2023 13:44-0400 Body mass index (BMI) [Ratio] 39.6 kg/m2 [facility] 12-30-2023 13:44-0400 Body temperature 97.6 [degF] [facility] 12-30-2023 13:44-0400 Body weight 92.24 kg [facility] 12-30-2023 13:44-0400 Diastolic blood pressure 68 mm[Hg] [facility] 12-30-2023 13:44-0400 Heart rate 68 /min [facility] 12-30-2023 13:44-0400 Inhaled oxygen flow rate 2 L/min [facility] 12-30-2023 13:44-0400 Respiratory rate 18 /min [facility] 12-30-2023 13:44-0400 SaO2% (BldA) [Mass fraction] 96 % [facility] 12-30-2023 13:44-0400 Systolic blood pressure 131 mm[Hg] [facility] 12-11-2023 11:31-0400 Body height 152.4 cm [facility] 12-11-2023 11:31-0400 Body mass index (BMI) [Ratio] 40.8 kg/m2 [facility] 12-11-2023 11:31-0400 Body temperature 97.1 [degF] [facility] 12-11-2023 11:31-0400 Body weight 94.85 kg [facility] 12-11-2023 11:31-0400 Diastolic blood pressure 60 mm[Hg] [facility] 12-11-2023 11:31-0400 Heart rate 68 /min [facility] 12-11-2023 11:31-0400 Inhaled oxygen flow rate 2 L/min [facility] 12-11-2023 11:31-0400 Respiratory rate 18 /min [facility] 12-11-2023 11:31-0400 SaO2% (BldA) [Mass fraction] 95 % [facility] 12-11-2023 11:31-0400 Systolic blood pressure 130 mm[Hg] [facility] 12-08-2023 10:40-0400 Body height 152.4 cm [facility] 12-08-2023 10:40-0400 Body mass index (BMI) [Ratio] 40.8 kg/m2 [facility] 12-08-2023 10:40-0400 Body weight 94.97 kg [facility] 12-08-2023 10:40-0400 Diastolic blood pressure 61 mm[Hg] [facility] 12-08-2023 10:40-0400 Heart rate 56 /min [facility] 12-08-2023 10:40-0400 Respiratory rate 18 /min [facility] 12-08-2023 10:40-0400 SaO2% (BldA) [Mass fraction] 95 % [facility] 12-08-2023 10:40-0400 Systolic blood pressure 119 mm[Hg] [facility] 11-18-2023 10:03-0400 Body height 152.4 cm ALFREDO Henry Work Phone: [facility] 11-18-2023 10:03-0400 Body mass index (BMI) [Ratio] 39.2 kg/m2 USER EXPERIENCE TEAM LEADSam Henry Work Phone: [facility] 11-18-2023 10:03-0400 Body temperature 98 [degF] USER EXPERIENCE TEAM LEAD-C Anikasophy Marsmer Work Phone: [facility] 11-18-2023 10:03-0400 Body weight 91.22 kg USER EXPERIENCE TEAM LEAD-C Anika Elaine Work Phone: [facility] 11-18-2023 10:03-0400 Diastolic blood pressure 71 mm[Hg] USER EXPERIENCE TEAM LEAD-C Anika Elaine Work Phone: [facility] 11-18-2023 10:03-0400 Heart rate 70 /min USER EXPERIENCE TEAM LEAD-C Anika Elaine Work Phone: [facility] 11-18-2023 10:03-0400 Inhaled oxygen flow rate 2 L/min USER EXPERIENCE TEAM LEAD-C Anikasophy Marsmer Work Phone: [facility] 11-18-2023 10:03-0400 Respiratory rate 16 /min USER EXPERIENCE TEAM LEAD-C Anikasophy Marsmer Work Phone: [facility] 11-18-2023 10:03-0400 SaO2% (BldA) [Mass fraction] 94 % USER EXPERIENCE TEAM LEAD-C Anikasophy Marsmer Work Phone: [facility] 11-18-2023 10:03-0400 Systolic blood pressure 162 mm[Hg] USER EXPERIENCE TEAM LEAD-C Anikasophy Marsmer Work Phone: [facility] 11-05-2023 14:04-0400 Body height 152.4 cm USER EXPERIENCE TEAM LEAD-C Anika Elaine Work Phone: [facility] 11-05-2023 14:04-0400 Body mass index (BMI) [Ratio] 39 kg/m2 USER EXPERIENCE TEAM LEAD-C Anika Elaine Work Phone: [facility] 11-05-2023 14:04-0400 Body temperature 98.1 [degF] USER EXPERIENCE TEAM LEAD-C Anika Elaine Work Phone: [facility] 11-05-2023 14:04-0400 Body weight 90.71 kg USER EXPERIENCE TEAM LEAD-C Anika Elaine Work Phone: [facility] 11-05-2023 14:04-0400 Diastolic blood pressure 68 mm[Hg] USER EXPERIENCE TEAM LEAD-C Anika Elaine Work Phone: [facility] 11-05-2023 14:04-0400 Heart rate 56 /min USER EXPERIENCE TEAM LEAD-C Anika Elaine Work Phone: [facility] 11-05-2023 14:04-0400 Inhaled oxygen flow rate 2 L/min USER EXPERIENCE TEAM LEAD-C Anika Elaine Work Phone: [facility] 11-05-2023 14:04-0400 Respiratory rate 18 /min USER EXPERIENCE TEAM LEAD-C Anika Elaine Work Phone: [facility] 11-05-2023 14:04-0400 SaO2% (BldA) [Mass fraction] 92 % USER EXPERIENCE TEAM LEAD-C Anika Elaine Work Phone: [facility] 11-05-2023 14:04-0400 Systolic blood pressure 136 mm[Hg] USER EXPERIENCE TEAM LEAD-C Anika Elaine Work Phone: [facility] 10-15-2023 13:42-0400 Body height 152.4 cm USER EXPERIENCE TEAM LEAD-C Anika Elaine Work Phone: [facility] 10-15-2023 13:42-0400 Body mass index (BMI) [Ratio] 38.7 kg/m2 USER EXPERIENCE TEAM LEAD-C Anika Elaine Work Phone: [facility] 10-15-2023 13:42-0400 Body temperature 97.6 [degF] USER EXPERIENCE TEAM LEAD-C Anika Elaine Work Phone: [facility] 10-15-2023 13:42-0400 Body weight 90.03 kg USER EXPERIENCE TEAM LEAD-C Anika Elaine Work Phone: [facility] 10-15-2023 13:42-0400 Diastolic blood pressure 70 mm[Hg] USER EXPERIENCE TEAM LEAD-C Anika Elaine Work Phone: [facility] 10-15-2023 13:42-0400 Heart rate 60 /min USER EXPERIENCE TEAM LEAD-C Anika Elaine Work Phone: [facility] 10-15-2023 13:42-0400 Inhaled oxygen flow rate 2 L/min USER EXPERIENCE TEAM LEAD-C Anika Elaine Work Phone: [facility] 10-15-2023 13:42-0400 Respiratory rate 18 /min USER EXPERIENCE TEAM LEAD-C Anika Elaine Work Phone: [facility] 10-15-2023 13:42-0400 SaO2% (BldA) [Mass fraction] 97 % USER EXPERIENCE TEAM LEAD-C Anika Elaine Work Phone: [facility] 10-15-2023 13:42-0400 Systolic blood pressure 143 mm[Hg] USER EXPERIENCE TEAM LEAD-C Anika Elaine Work Phone: [facility] 09-23-2023 09:37-0400 Body height 152.4 cm USER EXPERIENCE TEAM LEAD-C Anika Elaine Work Phone: [facility] 09-23-2023 09:37-0400 Body mass index (BMI) [Ratio] 38.5 kg/m2 USER EXPERIENCE TEAM LEAD-C Anika Elaine Work Phone: [facility] 09-23-2023 09:37-0400 Body temperature 97.9 [degF] USER EXPERIENCE TEAM LEAD-C Anika Elaine Work Phone: [facility] 09-23-2023 09:37-0400 Body weight 89.44 kg USER EXPERIENCE TEAM LEAD-C Anika Elaine Work Phone: [facility] 09-23-2023 09:37-0400 Diastolic blood pressure 72 mm[Hg] USER EXPERIENCE TEAM LEAD-C Anika Elaine Work Phone: [facility] 09-23-2023 09:37-0400 Heart rate 67 /min USER EXPERIENCE TEAM LEAD-C Anika Elaine Work Phone: [facility] 09-23-2023 09:37-0400 Inhaled oxygen flow rate 2 L/min USER EXPERIENCE TEAM LEAD-C Anika Elaine Work Phone: [facility] 09-23-2023 09:37-0400 Respiratory rate 18 /min USER EXPERIENCE TEAM LEAD-C Anika Elaine Work Phone: [facility] 09-23-2023 09:37-0400 SaO2% (BldA) [Mass fraction] 97 % USER EXPERIENCE TEAM LEAD-C Anika Henry Work Phone: [facility] 09-23-2023 09:37-0400 Systolic blood pressure 149 mm[Hg] USER EXPERIENCE TEAM LEAD-C Anikasophy Marsmer Work Phone: [facility] 09-09-2023 14:15-0400 Body height 152.4 cm USER EXPERIENCE TEAM LEAD-C Anikasophy Marsmer Work Phone: [facility] 09-09-2023 14:15-0400 Body mass index (BMI) [Ratio] 38.9 kg/m2 USER EXPERIENCE TEAM LEAD-C Anika Henry Work Phone: [facility] 09-09-2023 14:15-0400 Body temperature 97.2 [degF] USER EXPERIENCE TEAM LEAD-C Anika Henry Work Phone: [facility] 09-09-2023 14:15-0400 Body weight 90.49 kg USER EXPERIENCE TEAM LEAD-C Anika Henry Work Phone: [facility] 09-09-2023 14:15-0400 Diastolic blood pressure 77 mm[Hg] USER EXPERIENCE TEAM LEAD-C Anika Henry Work Phone: [facility] 09-09-2023 14:15-0400 Heart rate 70 /min USER EXPERIENCE TEAM LEAD-C Anika Henry Work Phone: [facility] 09-09-2023 14:15-0400 Inhaled oxygen flow rate 2 L/min USER EXPERIENCE TEAM LEAD-C Anika Henry Work Phone: [facility] 09-09-2023 14:15-0400 Respiratory rate 18 /min USER EXPERIENCE TEAM LEAD-C Anikasophy Marsmer Work Phone: [facility] 09-09-2023 14:15-0400 SaO2% (BldA) [Mass fraction] 97 % USER EXPERIENCE TEAM LEAD-C Anika Marsmer Work Phone: [facility] 09-09-2023 14:15-0400 Systolic blood pressure 147 mm[Hg] USER EXPERIENCE TEAM LEAD-C Anikasophy Henry Work Phone: [facility] 09-01-2023 11:35-0400 Diastolic blood pressure 73 mm[Hg] USER EXPERIENCE TEAM LEAD-C Anikasophy Marsmer Work Phone: [facility] 09-01-2023 11:35-0400 Heart rate 62 /min USER EXPERIENCE TEAM LEAD-C Anikasophy Marsmer Work Phone: [facility] 09-01-2023 11:35-0400 Inhaled oxygen flow rate 2 L/min USER EXPERIENCE TEAM LEAD-C Anikasophy Henry Work Phone: [facility] 09-01-2023 11:35-0400 Respiratory rate 18 /min USER EXPERIENCE TEAM LEAD-C Anikasophy Henry Work Phone: [facility] 09-01-2023 11:35-0400 SaO2% (BldA) [Mass fraction] 96 % USER EXPERIENCE TEAM LEAD-C Anika Henry Work Phone: [facility] 09-01-2023 11:35-0400 Systolic blood pressure 164 mm[Hg] USER EXPERIENCE TEAM LEAD-C Anika Henry Work Phone: [facility] 09-01-2023 09:17-0400 Body height 152.4 cm USER EXPERIENCE TEAM LEAD-C Anika Henry Work Phone: [facility] 09-01-2023 09:17-0400 Body weight 93.44 kg USER EXPERIENCE TEAM LEAD-C Anika Henry Work Phone: [facility] 08-20-2023 10:20-0400 Body height 152.4 cm [facility] 08-20-2023 10:20-0400 Body mass index (BMI) [Ratio] 40.2 kg/m2 [facility] 08-20-2023 10:20-0400 Body weight 93.44 kg [facility] 08-20-2023 10:20-0400 Diastolic blood pressure 84 mm[Hg] [facility] 08-20-2023 10:20-0400 Heart rate 73 /min [facility] 08-20-2023 10:20-0400 Inhaled oxygen flow rate 2 L/min [facility] 08-20-2023 10:20-0400 Respiratory rate 18 /min [facility] 08-20-2023 10:20-0400 SaO2% (BldA) [Mass fraction] 94 % [facility] 08-20-2023 10:20-0400 Systolic blood pressure 176 mm[Hg] [facility] 08-13-2023 10:41-0400 Body height 152.4 cm [facility] 08-13-2023 10:41-0400 Body mass index (BMI) [Ratio] 40.1 kg/m2 [facility] 08-13-2023 10:41-0400 Body temperature 97.5 [degF] [facility] 08-13-2023 10:41-0400 Body weight 93.15 kg [facility] 08-13-2023 10:41-0400 Diastolic blood pressure 72 mm[Hg] [facility] 08-13-2023 10:41-0400 Heart rate 77 /min [facility] 08-13-2023 10:41-0400 Inhaled oxygen flow rate 2 L/min [facility] 08-13-2023 10:41-0400 Respiratory rate 20 /min [facility] 08-13-2023 10:41-0400 SaO2% (BldA) [Mass fraction] 95 % [facility] 08-13-2023 10:41-0400 Systolic blood pressure 162 mm[Hg] [facility] 07-30-2023 11:44-0400 Body height 165.1 cm Tr SOLORZANO Work Phone: [facility] 07-30-2023 11:44-0400 Body mass index (BMI) [Ratio] 34.28 kg/m2 Tr Jimenez APRN-QUILLER OPERATOR Work Phone: [facility] 07-30-2023 11:44-0400 Body weight 93.44 kg Tr Jimenez APRN-QUILLER OPERATOR Work Phone: [facility] 07-30-2023 11:44-0400 Diastolic blood pressure 80 mm[Hg] Tr Jimenez UNLOADER OPERATOR-QUILLER OPERATOR Work Phone: [facility] [employer] [facility] 07-30-2023 11:44-0400 Heart rate 59 /min Tr Jimenez UNLOADER OPERATOR-QUILLER OPERATOR Work Phone: [facility] [employer] [facility] 07-30-2023 11:44-0400 Systolic blood pressure 140 mm[Hg] Tr Jimenez UNLOADER OPERATOR-QUILLER OPERATOR Work Phone: [facility] 06-17-2023 12:41-0500 Body height 165.1 cm Iona Delarosa MD Work Phone: [facility] [employer] [facility] 06-17-2023 12:41-0500 Body mass index (BMI) [Ratio] 33.61 kg/m2 Iona Delarosa MD Work Phone: [facility] [employer] [facility] 06-17-2023 12:41-0500 Body weight 91.63 kg Iona Delarosa MD Work Phone: [facility] [employer] [facility] 06-17-2023 12:41-0500 Diastolic blood pressure 70 mm[Hg] Iona Delarosa MD Work Phone: [facility] [employer] [facility] 06-17-2023 12:41-0500 Heart rate 73 /min Iona Delarosa MD Work Phone: [facility] [employer] [facility] 06-17-2023 12:41-0500 SaO2% (BldA) [Mass fraction] 97 % Iona Delarosa MD Work Phone: [facility] [employer] [facility] 06-17-2023 12:41-0500 Systolic blood pressure 160 mm[Hg] Iona Delarosa MD Work Phone: [facility] [employer] [facility] 05-28-2023 12:35-0500 Body height 165.1 cm Tr Jimenez UNLOADER OPERATOR-QUILLER OPERATOR Work Phone: [facility] [employer] [facility] 05-28-2023 12:35-0500 Body mass index (BMI) [Ratio] 33.61 kg/m2 Tr Jimenez UNLOADER OPERATOR-QUILLER OPERATOR Work Phone: [employer] 05-28-2023 12:35-0500 Body weight 91.63 kg Tr Jimenez UNLOADER OPERATOR-QUILLER OPERATOR Work Phone: [employer] 05-28-2023 12:35-0500 Diastolic blood pressure 100 mm[Hg] Tr Jimenez UNLOADER OPERATOR-QUILLER OPERATOR Work Phone: [employer] 05-28-2023 12:35-0500 Heart rate 64 /min Tr Jimenez UNLOADER OPERATOR-QUILLER OPERATOR Work Phone: [employer] 05-28-2023 12:35-0500 SaO2% (BldA) [Mass fraction] 94 % Tr Jimenez UNLOADER OPERATOR-QUILLER OPERATOR Work Phone: [employer] 05-28-2023 12:35-0500 Systolic blood pressure 200 mm[Hg] Tr Jimenez UNLOADER OPERATOR-QUILLER OPERATOR [facility] [employer] 04-22-2023 10:20-0500 Body height 152.4 cm Brandnew [employer]wal[employer] Other [facility] 04-22-2023 10:20-0500 Body mass index (BMI) [Ratio] 39.64 kg/m2 Brandnew [employer]walter [employer] Other [facility] Other 04-22-2023 10:20-0500 Body weight 92.08 kg Azwalter Limbos Other [facility] Other 04-22-2023 10:20-0500 Body weight 92.07 kg [facility] 04-22-2023 10:20-0500 Diastolic blood pressure 70 mm[Hg] Aziz Limbos Other [facility] 04-22-2023 10:20-0500 Respiratory rate 18 /min Brandnew [employer] Other [facility] Other 04-22-2023 10:20-0500 SaO2% (BldA) [Mass fraction] 97 % Rin Sarmiento Other [facility] Other 04-22-2023 10:20-0500 Systolic blood pressure 138 mm[Hg] Rin Sarmiento Other [facility] 02-19-2023 09:15-0400 Body height 152.4 cm Tondra Mapus Other [facility] Other 02-19-2023 09:15-0400 Body mass index (BMI) [Ratio] 40.21 kg/m2 Tondra Mapus Other [facility] Other 02-19-2023 09:15-0400 Body weight 93.4 kg Tondra Mapus Other [facility] Other 02-19-2023 09:15-0400 Diastolic blood pressure 64 mm[Hg] Tondra Mapus Other [facility] Other 02-19-2023 09:15-0400 Respiratory rate 18 /min Tondra Mapus Other [facility] Other 02-19-2023 09:15-0400 SaO2% (BldA) [Mass fraction] 95 % Tondra Mapus Other [facility] Other 02-19-2023 09:15-0400 Systolic blood pressure 129 mm[Hg] Tondra Mapus Other [facility] Other 02-12-2023 09:00-0400 Body height 152.4 cm Tondra Mapus Other [facility] Other 02-12-2023 09:00-0400 Body mass index (BMI) [Ratio] 40.07 kg/m2 Chester Mullinsus Other [facility] Other 02-12-2023 09:00-0400 Body weight 93.08 kg Chester Lin Other [facility] Other 10-22-2022 10:00-0400 Body height 152.4 cm Aziz Bakhous Other [facility] Other 10-22-2022 10:00-0400 Body mass index (BMI) [Ratio] 40.23 kg/m2 Aziz Bakhous Other [facility] Other 10-22-2022 10:00-0400 Body temperature 97.4 [degF] Aziz Bakhous Other [facility] Other 10-22-2022 10:00-0400 Body weight 93.44 kg Aziz Bakhous Other [facility] Other 10-22-2022 10:00-0400 Diastolic blood pressure 78 mm[Hg] Aziz Bakhous Other [facility] Other 10-22-2022 10:00-0400 Respiratory rate 20 /min Aziz Bakhous Other [facility] Other 10-22-2022 10:00-0400 SaO2% (BldA) [Mass fraction] 92 % Aziz Bakhous Other [facility] Other 10-22-2022 10:00-0400 Systolic blood pressure 146 mm[Hg] Aziz Bakhous Other [facility] Other 08-19-2022 10:15-0400 Body height 152.4 cm Tondra Mapus Other [facility] Other 08-19-2022 10:15-0400 Body mass index (BMI) [Ratio] 39.82 kg/m2 Tondra Mapus Other [facility] Other 08-19-2022 10:15-0400 Body weight 92.49 kg Tondra Mapus Other [facility] Other 08-19-2022 10:15-0400 Diastolic blood pressure 63 mm[Hg] Tondra Mapus Other [facility] Other 08-19-2022 10:15-0400 Respiratory rate 20 /min Tondra Mapus Other [facility] Other 08-19-2022 10:15-0400 SaO2% (BldA) [Mass fraction] 95 % Tondra Mapus Other [facility] Other 08-19-2022 10:15-0400 Systolic blood pressure 136 mm[Hg] Tondra Mapus Other [facility] Other 02-27-2022 10:15-0400 Body height 152.4 cm Tondra Mapus Other [facility] Other 02-27-2022 10:15-0400 Body mass index (BMI) [Ratio] 41.79 kg/m2 Tondra [employer] Other [employer] Other 02-27-2022 10:15-0400 Body weight 97.07 kg Tondra Mapus Other [employer] Other 02-27-2022 10:15-0400 Diastolic blood pressure 55 mm[Hg] Tondra Mapus Other [employer] Other 02-27-2022 10:15-0400 Respiratory rate 20 /min Tondra Mapus Other [employer] Other 02-27-2022 10:15-0400 SaO2% (BldA) [Mass fraction] 97 % Tondra Mapus Other [employer] Other 02-27-2022 10:15-0400 Systolic blood pressure 130 mm[Hg] Tondra Mapus Other [employer] Other 10-23-2021 11:00-0400 Body height 152.4 cm [employer] Other [employer] Other 10-23-2021 11:00-0400 Body mass index (BMI) [Ratio] 44.05 kg/m2 [employer] Other [employer] Other 10-23-2021 11:00-0400 Body temperature 97.5 [degF] Aziz Limbos Other [employer] Other 10-23-2021 11:00-0400 Body weight 102.33 kg Aziz Limbos Other [employer] Other 10-23-2021 11:00-0400 Diastolic blood pressure 72 mm[Hg] Aziz Limbos Other [employer] Other 10-23-2021 11:00-0400 Respiratory rate 20 /min Rin Sarmiento Other [employer] Other 10-23-2021 11:00-0400 SaO2% (BldA) [Mass fraction] 94 % Rin Sarmiento Other [employer] Other 10-23-2021 11:00-0400 Systolic blood pressure 135 mm[Hg] Rin Sarmiento Other [employer] Other 05-23-2021 10:15-0500 Body height 152.4 cm Tondra Mapus Other [employer] Other 05-23-2021 10:15-0500 Body mass index (BMI) [Ratio] 43.25 kg/m2 Tondra Mapus Other [employer] Other 05-23-2021 10:15-0500 Body weight 100.47 kg Tondra Mapus Other [employer] Other 05-23-2021 10:15-0500 Diastolic blood pressure 57 mm[Hg] Tondra Mapus Other [employer] Other 05-23-2021 10:15-0500 Respiratory rate 20 /min Tondra Mapus Other [employer] Other 05-23-2021 10:15-0500 SaO2% (BldA) [Mass fraction] 96 % Tondra Mapus Other [employer] Other 05-23-2021 10:15-0500 Systolic blood pressure 131 mm[Hg] Tondra Mapus Other [facility] Other Encounters Encounter Date Encounter Type Care Provider Facility Start: 12-30-2023 End: 12-30-2023 ambulatory [facility] Work Phone: Start: 12-30-2023 End: 12-30-2023 Patient encounter procedure [facility] Physician [facility] Nephrology Work Phone: Start: 12-11-2023 End: 12-11-2023 ambulatory [facility] Work Phone: Start: 12-11-2023 End: 12-11-2023 Patient encounter procedure [facility] Physician [facility] Nephrology Joseph Work Phone: Start: 12-08-2023 End: 12-08-2023 ambulatory [facility] Work Phone: Start: 12-08-2023 End: 12-08-2023 Patient encounter procedure [facility] Physician [facility] Work Phone: Start: 12-03-2023 End: 12-03-2023 ambulatory [facility] Start: 11-27-2023 Non-patient / Non-visit [facility] Physician [facility] Work Phone: Start: 11-18-2023 End: 11-18-2023 ambulatory USER EXPERIENCE TEAM LEAD-C Anika Henry Work Phone: [facility] Work Phone: Start: 11-18-2023 End: 11-18-2023 Patient encounter procedure USER EXPERIENCE TEAM LEAD-C Anika Henry Work Phone: [facility] Physician [facility] Nephrology Work Phone: Start: 11-13-2023 Non-patient / Non-visit USER EXPERIENCE TEAM LEAD-C P mellissa Elaine Work Phone: [facility] Physician [facility] Work Phone: Start: 11-12-2023 End: 11-12-2023 ambulatory [facility] Start: 11-05-2023 End: 11-05-2023 ambulatory USER EXPERIENCE TEAM LEAD-C Anika Deepa Elaine Work Phone: [facility] Work Phone: Start: 11-05-2023 End: 11-05-2023 Patient encounter procedure USER EXPERIENCE TEAM LEAD-C Anika Elaine Work Phone: [facility] Physician [facility] Nephrology Work Phone: Start: 10-30-2023 Non-patient / Non-visit USER EXPERIENCE TEAM LEAD-C P mellissa Elaine Work Phone: [facility] Work Phone: Start: 10-22-2023 End: 10-22-2023 ambulatory [facility] Start: 10-15-2023 End: 10-15-2023 ambulatory USER EXPERIENCE TEAM LEAD-C Anika Deepa Elaine Work Phone: [facility] Work Phone: Start: 10-15-2023 End: 10-15-2023 Patient encounter procedure USER EXPERIENCE TEAM LEAD-C Anika Elaine Work Phone: [facility] Nephrology Work Phone: Start: 10-08-2023 End: 10-08-2023 ambulatory [facility] Start: 10-07-2023 Non-patient / Non-visit USER EXPERIENCE TEAM LEAD-C P mellissa Elaine Work Phone: [facility] Work Phone: Start: 09-23-2023 End: 09-23-2023 ambulatory [facility] Start: 09-23-2023 End: 09-23-2023 ambulatory USER EXPERIENCE TEAM LEAD-C Anika Deepa Elaine Work Phone: [facility] Work Phone: Start: 09-23-2023 End: 09-23-2023 Patient encounter procedure USER EXPERIENCE TEAM LEAD-C Anika Elaine Work Phone: [facility]ician Group-[facility] Nephrology Work Phone: Start: 09-16-2023 End: 09-16-2023 ambulatory [facility] Start: 09-16-2023 Non-patient / Non-visit USER EXPERIENCE TEAM LEAD-C Vanesa Henry Work Phone: [facility] Work Phone: Start: 09-11-2023 End: 09-11-2023 ambulatory LUCI Kimberly LENTZ Not Available Start: 09-09-2023 End: 09-09-2023 ambulatory USER EXPERIENCE TEAM LEAD-C Anika Henry Work Phone: [facility] Work Phone: Start: 09-09-2023 End: 09-09-2023 Patient encounter procedure USER EXPERIENCE TEAM LEAD-C Anika Henry Work Phone: [facility]ician Group-[facility] Nephrology Work Phone: Start: 09-01-2023 End: 09-01-2023 ambulatory Anika Henry Facility:[facility] Start: 09-01-2023 End: 09-01-2023 Admission to same day surgery center USER EXPERIENCE TEAM LEAD-C Anika Henry Work Phone: [facility] [place] Work Phone: Start: 09-01-2023 End: 09-01-2023 ambulatory USER EXPERIENCE TEAM LEAD-C Anika Henry Work Phone: [facility] Work Phone: Start: 08-21-2023 End: 08-21-2023 Follow-up encounter [facility] [address] [facility] Medication Therapy Management Comment on above: PAF (paroxysmal atri al fibrillation) ([facility]) (Primary Dx) Start: 08-21-2023 End: 08-21-2023 ambulatory [facility] Start: 08-20-2023 End: 08-20-2023 ambulatory [facility] Work Phone: Start: 08-20-2023 End: 08-20-2023 Patient encounter procedure [facility] Physician [facility] Work Phone: Start: 08-20-2023 End: 09-17-2023 ambulatory [facility] Start: 08-13-2023 End: 08-13-2023 ambulatory [facility] Work Phone: Start: 08-13-2023 End: 08-13-2023 Patient encounter procedure [facility] Physician [facility] Nephrology Work Phone: Start: 08-05-2023 Non-patient / Non-visit [facility] Physician [facility] Work Phone: Start: 08-01-2023 Non-patient / Non-visit [facility] Physician [facility] Work Phone: Start: 07-30-2023 End: 07-30-2023 Office outpatient visit 25 minutes Cole Krishnan MD Work Phone: [facility] Cardiology Comment on above: PAF (paroxysmal atri al fibrillation) ([facility]) (Primary Dx); Hyperlipidemia, unspecified hyperlipidemia type; Benign hypertensive heart disease without congestive heart failure Start: 07-30-2023 End: 07-30-2023 Follow-up encounter [facility] [address] [facility] Medication Therapy Management Comment on above: PAF (paroxysmal atri al fibrillation) ([facility]) (Primary Dx) Start: 07-30-2023 End: 07-30-2023 amb[facility] Start: 07-29-2023 Telephone encounter Enedelia garay CMA [facility] Cardiology Start: 07-21-2023 Orders Only Alicia Galvan RN [facility] Physicians Pulmonary/Sleep Medicine Comment on above: Shortness of breath; Chronic obstructive pulmonary disease, unspecified COPD type ([facility]) Start: 07-18-2023 End: 07-18-2023 Follow-up encounter [facility] [address] [facility] Medication Therapy Management Comment on above: PAF (paroxysmal atri al fibrillation) ([facility]) (Primary Dx) Start: 07-18-2023 End: 07-18-2023 ambulatory [facility] Start: 07-10-2023 End: 07-10-2023 Follow-up encounter [facility] [address] [facility] Medication Therapy Management Comment on above: PAF (paroxysmal atri al fibrillation) ([facility]) (Primary Dx) Start: 07-10-2023 End: 07-10-2023 ambulatory [facility] Start: 07-02-2023 End: 07-02-2023 ambulatory ANITA MCCOY [facility] Start: 06-26-2023 End: 06-26-2023 Follow-up encounter [facility] [address] [facility] Medication Therapy Management Comment on above: PAF (paroxysmal atri al fibrillation) ([facility]) (Primary Dx) Start: 06-26-2023 End: 06-26-2023 ambulatory [facility] Start: 06-20-2023 End: 07-18-2023 ambulatory [facility] Start: 06-17-2023 End: 06-17-2023 Office outpatient visit 15 minutes Iona Delarosa MD Work Phone: [facility] Cardiology Comment on above: PAF (paroxysmal atri al fibrillation) ([facility]) (Primary Dx); Benign hypertensive heart disease without congestive heart failure; 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 ([facility]); Shortness of breath; COPD with acute exacerbation ([facility]) Start: 06-17-2023 End: 06-17-2023 Follow-up encounter [facility] [address] [facility] Medication Therapy Management Comment on above: PAF (paroxysmal atri al fibrillation) ([facility]) (Primary Dx) Start: 06-17-2023 End: 06-17-2023 ambulatory IONA DELAROSA [facility] Start: 06-16-2023 Telephone encounter Enedelia garay [facility] Physicians Cardiology Start: 06-10-2023 End: 06-10-2023 Follow-up encounter [facility] [address] [facility] Medication Therapy Management Comment on above: PAF (paroxysmal atri al fibrillation) ([facility]) (Primary Dx) Start: 06-10-2023 End: 06-10-2023 ambulatory [facility] Start: 06-09-2023 End: 06-09-2023 ambulatory Chester Lin Other [facility] Other Start: 06-09-2023 Telephone encounter Chester Lin [facility] Start: 06-05-2023 End: 06-05-2023 ambulatory LUCI GREEN Not Available Start: 06-05-2023 End: 06-05-2023 Follow-up encounter [facility] [address] [facility] Medication Therapy Management Comment on above: PAF (paroxysmal atri al fibrillation) ([facility]) (Primary Dx) Start: 06-05-2023 End: 06-05-2023 ambulatory [facility] Start: 06-03-2023 End: 06-03-2023 ambulatory Rin Sarmiento Other [facility] Other Start: 06-03-2023 Telephone encounter Rin Sarmiento [facility] Nephrology Start: 06-02-2023 End: 06-02-2023 Follow-up encounter [facility] [address] [facility] Medication Therapy Management Comment on above: PAF (paroxysmal atri al fibrillation) ([facility]) (Primary Dx) Start: 06-02-2023 End: 06-02-2023 ambulatory ANIKA HENRY [facility] Start: 05-28-2023 End: 05-28-2023 Office outpatient visit 25 minutes Tr SOLORZANO Work Phone: [facility] Cardiology Comment on above: PAF (paroxysmal atri al fibrillation) ([facility]) (Primary Dx); Ventricular premature beats; Sinus pause; Benign hypertensive heart disease without congestive heart failure; retirement current use of amiodarone Start: 05-28-2023 End: 07-09-2023 ambulatory TR JIMENEZ [facility] Start: 05-27-2023 End: 05-27-2023 ambulatory Chester Lin Other [facility] Other Start: 05-27-2023 Telephone encounter Elza Wolfe [facility] Start: 05-26-2023 End: 05-26-2023 Follow-up encounter [facility] [address] [facility] Medication Therapy Management Comment on above: PAF (paroxysmal atri al fibrillation) ([facility]) (Primary Dx) Start: 05-26-2023 End: 05-26-2023 [facility] Start: 05-21-2023 End: 05-21-2023 Anticoagulant drug monitoring [facility] [address] [facility] Medication Therapy Management Comment on above: PAF (paroxysmal atri al fibrillation) ([facility]) (Primary Dx) Start: 05-21-2023 End: 05-21-2023 [facility] Start: 05-06-2023 End: 05-06-2023 ambulatory NAVA SOLIMAN [facility] Start: 04-23-2023 End: 04-23-2023 ambulatory Aziz Bakhous Other [employer] [facility] Meddle Other Start: 04-23-2023 Telephone encounter Rin Darbys [facility] Start: 04-22-2023 End: 04-22-2023 ambulatory Aziz Bakhous Other [employer] Other Start: 04-22-2023 Office outpatient vi sit 25 minutes Aziz Bakhous [facility] Start: 04-22-2023 End: 04-22-2023 Patient encounter procedure [facility] Nephrology Work Phone: Start: 04-21-2023 End: 04-21-2023 ambulatory Aziz Bakhous Other [employer] Other Start: 04-21-2023 Telephone encounter Aziz Bakhous [facility] Start: 02-19-2023 (DM) Diabetes Tondra Delia [facility] Start: 02-19-2023 End: 02-20-2023 ambulatory PHYSICIAN NO FAMILY [facility] Other Start: 02-12-2023 End: 02-12-2023 ambulatory Tondra Mapus Other [employer] Other Start: 02-12-2023 Nursing evaluation o f patient and report Tondra Susannaus [facility] Start: 01-24-2023 End: 01-24-2023 ambulatory Tondra Mapus Other [employer] Other Start: 01-24-2023 Telephone encounter Tondra Mapus [facility] Start: 10-30-2022 End: 10-30-2022 ambulatory Tondra Mapus Other [employer] Other Start: 10-30-2022 Telephone encounter Tondra Mapus [facility] Start: 10-22-2022 End: 10-22-2022 ambulatory Aziz Bakhous Other [employer] Other Start: 10-22-2022 Office outpatient vi sit 25 minutes Aziz Bakhous [facility] Start: 10-16-2022 ambulatory ANIKA ELAINE Facility: [facility] Start: 08-20-2022 End: 08-20-2022 ambulatory Tondra Mapus Other [employer] Other Start: 08-20-2022 Telephone encounter Tondra Mapus [facility] Start: 08-19-2022 (DM) Diabetes Tondra Mapus [facility] Start: 08-19-2022 End: 08-19-2022 ambulatory Tondra Mapus Other [employer] Other Start: 08-02-2022 End: 08-02-2022 ambulatory Tondra Mapus Other [employer] Other Start: 08-02-2022 Telephone encounter Tondra Mapus [facility] Start: 05-30-2022 End: 05-30-2022 ambulatory Tondra Mapus Other [employer] Other Start: 05-30-2022 Telephone encounter Tondra Mapus [facility] Start: 05-01-2022 End: 05-01-2022 ambulatory Tondra Mapus Other [employer] Other Start: 05-01-2022 Telephone encounter Tondra Mapus [facility] Start: 04-01-2022 End: 04-01-2022 ambulatory Tondra Mapus Other [employer] Other Start: 04-01-2022 Telephone encounter Tondra Mapus [facility] Start: 02-27-2022 (DM) Diabetes Tondra Mapus [facility] Start: 02-27-2022 End: 02-27-2022 ambulatory Tondra Mapus Other [employer] Other Start: 01-28-2022 End: 01-28-2022 ambulatory Becca Michael Other [employer] Other Start: 01-28-2022 Telephone encounter Becca Michael [facility] Start: 01-09-2022 End: 01-09-2022 ambulatory Tondra Mapus Other [employer] Other Start: 01-09-2022 Telephone encounter Tondra Mapus [facility] Start: 12-31-2021 End: 12-31-2021 ambulatory Tondra Mapus Other [employer] Other Start: 12-31-2021 Telephone encounter Tondra Mapus [facility] Start: 12-17-2021 End: 12-17-2021 ambulatory Tondra Mapus Other [employer] Other Start: 12-17-2021 Telephone encounter Tondra Mapus [facility] Start: 11-25-2021 End: 11-25-2021 ambulatory Tondra Mapus Other [employer] Other Start: 11-25-2021 Telephone encounter Tondra Mapus [facility] Start: 11-02-2021 (FCCC INJ) FCCC Injection Marixa Fitt [facility] Start: 11-02-2021 End: 11-02-2021 ambulatory Marixa Fitt Other [facility] Other Start: 10-30-2021 End: 10-31-2021 ambulatory ANIKA ELAINE Facility:[facility] Start: 10-26-2021 End: 10-26-2021 ambulatory Tondra Mapus Other [employer] Other Start: 10-26-2021 Telephone encounter Tondra Mapus [facility] Start: 10-23-2021 End: 10-23-2021 ambulatory Aziz Bakhous Other [employer] Other Start: 10-23-2021 Office outpatient vi sit 15 minutes Aziz Bakhous [facility] Start: 10-22-2021 End: 10-22-2021 ambulatory Tondra Mapus Other [employer] Other Start: 10-22-2021 Telephone encounter Chester Lin [facility] Start: 09-10-2021 End: 09-10-2021 ambulatory Tondra Mullinsus Other [employer] Other Start: 09-10-2021 Telephone encounter Chester Lin [facility] Start: 05-23-2021 (DM) Diabetes Tondra Lin [facility] Start: 05-23-2021 End: 05-23-2021 ambulatory Tondra Lin Other [facility] Other Procedures Date Procedure Procedure Detail Performing Clinician Start: 09-01-2023 Needle biopsy USER EXPERIENCE TEAM LEAD-C Charity Tapia Work Phone: Start: 08-21-2023 Prothrombin time Jobst Service Work Phone: Start: 07-30-2023 Prothrombin time [employer] Work Phone: Start: 07-30-2023 Ecg routine ecg w/le ast 12 lds w/i&r Tr Jimenez UNLOADER OPERATOR-QUILLER OPERATOR Work Phone: Start: 07-30-2023 Follow-up visit Follow-up [...] w/le ast 12 lds w/i&r Tr Jimenez UNLOADER OPERATOR-QUILLER OPERATOR Work Phone: Start: 05-26-2023 Prothrombin time [employer]st Service Work Phone: Start: 05-21-2023 Prothrombin time [employer]st Service Work Phone: Start: 05-09-2023 Adult depression scr eening assessment [facility] 1 Start: 02-14-2014 Colonoscopy [facility] 1 Plan of Treatment Date Care Activity Detail Author Start: 07-29-2024 Adult BMI Screening Adult BMI Screen ing [facility] Start: 07-29-2024 Tobacco Screening Tobacco Screening [facility] Start: 06-17-2024 Adult BMI Screening Adult BMI Screen ing [facility] Start: 06-17-2024 Tobacco Screening Tobacco Screening [facility] Start: 05-28-2024 Adult BMI Screening Adult BMI Screen ing [facility] Start: 05-28-2024 Tobacco Screening Tobacco Screening [facility] Start: 05-10-2024 Adult BMI Screening Adult BMI Screen ing [facility] Start: 05-09-2024 Depression Screening Depression Scre ening [facility] Start: 05-09-2024 Tobacco Screening Tobacco Screening [facility] Start: 01-18-2024 Influenza vaccination Influenza Vacc ine [facility] Start: 10-27-2023 End: 10-27-2023 Patient encounter procedure 10/27/2023 2:45 PM EDT Office Visit [facility] [address] [place] [id number] Anita Mccoy MD [address] [facility] [address] [place] [address] [facility] Start: 09-16-2023 End: 09-16-2023 Follow-up encounter 09/16/2023 1:30 PM EDT Follow Up Anticoagulation [facility] Medication Therapy Management [address] [place] [address] [facility] Medication Therapy Management Start: 09-01-2023 [facility] Start: 09-01-2023 CT guided biopsy [facility] Start: 09-01-[address] guided biopsy [facility] Start: 08-20-2023 End: 08-20-2023 Follow-up encounter 08/20/2023 11:00 AM EDT Follow Up Anticoagulation [facility] Medication Therapy Management [address] [place] [address] [facility] Medication Therapy Management Start: 07-30-2023 End: 07-30-2023 Patient encounter procedure 07/30/2023 12:30 PM EDT Office Visit [facility] [address] [id number] Cole Krishnan MD [address] [place] [phone] Tr Jimenez, UNLOADER OPERATOR-QUILLER OPERATOR [address] [place] [address] [facility] Start: 07-30-2023 End: 07-30-2023 Follow-up encounter 07/30/2023 11:30 AM EDT Follow Up Anticoagulation [facility] Medication Therapy Management [address] [place] [address] [facility] Medication Therapy Management Start: 07-18-2023 End: 07-18-2023 Follow-up encounter 07/18/2023 1:15 PM EST Follow Up Anticoagulation [facility] Medication Therapy Management [address] [place] [address] [facility] Medication Therapy Management Start: 07-10-2023 End: 07-10-2023 Follow-up encounter 07/10/2023 1:15 PM EST Follow Up Anticoagulation [facility] Medication Therapy Management [address] [place] [address] [facility] Medication Therapy Management Start: 07-02-2023 End: 07-02-2023 Patient encounter procedure 07/02/2023 1:00 PM EST Appointment [facility] - Pulmonary Function [address] [place] [address] Anita Mccoy MD [address] [facility] [address] [place] [address] [facility] - Pulmonary Function Start: 06-20-2023 End: 06-20-2023 Follow-up encounter 06/20/2023 1:15 PM EST Follow Up Anticoagulation [facility] Medication Therapy Management [address] [place] [address] [facility] Medication Therapy Management Start: 06-17-2023 End: 06-17-2023 Patient encounter procedure 06/17/2023 1:00 PM EST Office Visit [facility] [address] [phone] Iona Delarosa MD [address] [place] [address] [facility] Start: 06-17-2023 End: 06-17-2023 Follow-up encounter 06/17/2023 12:30 PM EST Follow Up Anticoagulation [facility] Medication Therapy Management [address] [place] [address] [facility] Medication Therapy Management Start: 06-10-2023 End: 06-10-2023 Follow-up encounter 06/10/2023 2:30 PM EST Follow Up Anticoagulation [facility] Medication Therapy Management [address] [place] [address] [facility] Medication Therapy Management Start: 06-05-2023 End: 06-05-2023 Follow-up encounter 06/05/2023 11:45 AM EST Follow Up Anticoagulation [facility] Medication Therapy Management [address] [place] [address] [facility] Medication Therapy Management Start: 06-04-2023 End: 05-28-2024 Basic metabolic 2000 panel - Serum or Plasma Basic Metabolic Panel Lab Routine Benign hypertensive heart disease without congestive heart failure Expected: 06/04/2023 (Approximate), Expires: 05/28/2024 [facility] Comment on above: Expected: 06/04/2023 (Approximate), Expires: 05/28/2024 Start: 06-02-2023 End: 06-02-2023 Follow-up encounter 06/02/2023 1:15 PM EST Follow Up Anticoagulation [facility] Medication Therapy Management [address] [place] [address] [facility] Medication Therapy Management Start: 05-28-2023 End: 05-28-2024 Wireless Telemetry (In Office) [facility] Work Phone: Comment on above: Expected: 05/28/2023 , Expires: 05/28/2024 Start: 05-28-2023 End: 05-28-2023 Patient encounter procedure 05/28/2023 1:00 PM EST Office Visit [facility] [address] [place] [address] Tr Jimenez, UNLOADER OPERATOR-QUILLER OPERATOR [address] [id number] [facility] Start: 05-26-2023 End: 05-26-2023 Follow-up encounter 05/26/2023 1:45 PM EST Follow Up Anticoagulation [facility] Medication Therapy Management [address] [place] [address] [facility] Medication Therapy Management Start: 02-14-2017 Screening for malign ant neoplasm of colon [facility] Start: 2005 Fall Risk Screening Fall Risk Screen ing [facility] Start: 1990 Administration of varicella zoster vaccine Zoster (Shingles) Vaccine (1 of 2) [facility] Start: 1959 DTaP,Tdap and Td Vaccines (1 - Tdap) DTaP,Tdap and Td Vaccines (1 - Tdap) [facility] Start: 1958 Adult BMI Follow Up Plan Adult BMI F ollow Up Plan [facility] [employer] Start: 1940 Medicare Annual Well ness Visit Medicare Annual Wellness Visit [facility] [employer] [facility] aPTT in Platelet poo r plasma by Coagulation assay [facility] guided biopsy [facility] End: 05-28-2024 Hepatic function 2000 panel - Serum or Plasma Hepatic function panel Lab Routine retirement current use of amiodarone 1 Occurrences starting 05/28/2023 until 05/28/2024 [facility] Comment on above: 1 Occurrences starti ng 05/28/2023 until 05/28/2024 Patient Education [facility] Work Phone: Renal function 1999 panel - Serum or Plasma [facility] Renal function 1999 panel - Serum or Plasma [facility] Renal function 1999 panel - Serum or Plasma [facility] Renal function 1999 panel - Serum or Plasma [facility] Renal function 1999 panel - Serum or Plasma [facility] End: 05-28-2024 Thyroid profile includes TSH FT4 Thyroid profile includes TSH FT4 Lab Routine retirement current use of amiodarone 1 Occurrences starting 05/28/2023 until 05/28/2024 [facility] Comment on above: 1 Occurrences starti ng 05/28/2023 until 05/28/2024 [facility] Immunizations Immunization Date Immunization Notes Care Provider Fa david 02-19-2023 Covid-19, Mrna, Lnp- s, Pf,anthony-sucrose,30 Mcg/0.3ml Fall23 [facility] 1 [facility] 02-19-2023 Influenza Vaccine, Quadrivalent, Adjuvanted [facility] 1 [facility] 02-19-2023 RSV, bivalent, prote in subunit RSVpreF, diluent reconstituted, 0.5 mL, PF [facility] 1 [facility] 02-19-2023 influenza virus vaccine, unspecified formulation [facility] 1 [facility] 03-11-2022 influenza virus vaccine, unspecified formulation [facility] 1 [facility] 05-12-2021 influenza virus vaccine, unspecified formulation [facility] 1 [facility] 03-12-2021 Influenza, High-dose , Quadrivalent [facility] 1 [facility] 08-04-2020 COVID-19 Vaccine Zoya - Documentation Purposes Only Alvarokimberly Mullinsus Other [facility] 02-09-2020 Influenza, High-dose , Quadrivalent [facility] 1 [facility] 02-01-2020 influenza virus vaccine, unspecified formulation [facility] 1 [facility] 01-21-2018 influenza, high dose seasonal, preservative-free [facility] 1 [facility] 06-19-2017 pneumococcal conjuga te vaccine, 13 valent [facility] 1 [facility] 03-19-2017 influenza virus vaccine, unspecified formulation [facility] 1 [facility] 03-19-2016 seasonal influenza, intradermal, preservative free [facility] 1 [facility] 02-06-2016 influenza, seasonal, injectable, preservative free [facility] 1 [facility] 03-31-2015 pneumococcal conjuga te vaccine, 13 valent [facility] 1 [facility] 03-28-2015 influenza, seasonal, injectable Tondra Mapus Other [facility] Other 03-19-2015 pneumococcal polysaccharide vaccine, 23 valent [facility] 1 [facility] 02-14-2015 influenza, seasonal, injectable [facility] 1 [facility] 03-31-2014 influenza, seasonal, injectable [facility] 1 [facility] 03-04-2012 influenza virus vaccine, whole virus [facility] 03-04-2011 influenza virus vaccine, whole virus [facility] 1 [facility] [employer] [facility] Payers Date Payer Category Payer Self-pay [id number] 2017 Unknown [id number] 2015 Medicare ANTHEM MEDICARE ANTHEM MEDICARE ADVANTAGE [id number] 2015-Present [phone] [address] [place] [address] [id number] [id number] 1959 Medicare [id number] 2.16.840.1.538175.19 1940 Unknown [id number] 2.16.840.1.877766.3.579.2.593 1940 Unknown [id number] 2.16.840.1.650016.3.579.2.593 1940 Unknown [id number] 2.16.840.1.791637.3.579.2.125 9 1940 Unknown [id number] 2.16.840.1.223157.3.579.2.125 9 1940 Unknown [id number] 2.16.840.1.103217.3.579.2.128 6 1940 Unknown [id number] 2.16.840.1.581231.3.579.2.128 6 1940 Unknown [id number] 2.16.840.1.233749.3.579.2.128 6 1940 Unknown [id number] 2.16.840.1.117592.3.579.2.128 6 1940 Unknown [id number] 2.16.840.1.527000.3.579.2.128 6 1940 Unknown [id number] 2.16.840.1.297279.3.579.2.128 6 1940 Unknown [id number] 2.16.840.1.447163.3.579.2.128 1940 Unknown [id number] 2.16.840.1.060724.3.579.2.128 6 1940 Unknown [id number] 2.16.840.1.674816.3.579.2.128 6 1940 Unknown [id number] 2.16.840.1.927354.3.579.2.128 6 1940 Unknown [id number] 2.16.840.1.470365.3.579.2.128 1940 Unknown [id number] 2.16.840.1.529504.3.579.2.128 1940 Unknown [id number] 2.16.840.1.018242.3.579.2.128 1940 Unknown [id number] 2.16.840.1.272239.3.579.2.128 1940 Unknown [id number] 2.16.840.1.414802.3.579.2.128 1940 Unknown [id number] 2.16.840.1.299904.3.579.2.128 1940 Unknown [id number] 2.16.840.1.162561.3.579.2.128 1940 Unknown [id number] 2.16.840.1.597311.3.579.2.128 1940 Unknown [id number] 2.16.840.1.492278.3.579.2.128 1940 Unknown [id number] 2.16.840.1.150016.3.579.2.128 1940 Unknown [id number] 2.16.840.1.791982.3.579.2.128 1940 Unknown [id number] 2.16.840.1.378979.3.579.2.128 6 1940 Unknown [id number] 2.16.840.1.388517.3.579.2.128 6 1940 Unknown [id number] 2.16.840.1.273836.3.579.2.128 6 1940 Unknown [id number] 2.16.840.1.812677.3.579.2.128 6 Unknown Regular Auto/Liability [id number] Unknown [id number] 2..840.1.775861.3.579.2.531 Unknown [id number] 2..840.1.183567.3.579.2.531 Social History Date Type Detail Facility Unknown if ever smoked [facility] Other Start: 06-29-2020 End: 05-09-2023 Sex Assigned At [facility] Other Start: 03-11-2022 End: 09-23-2023 Tobacco smoking status NHIS Never smoked tobacco [facility] [facility] Start: 03-11-2022 Tobacco use and exposure Smokeless tobacco non-user [facility] Start: 05-09-2023 End: 07-30-2023 Alcohol intake Current non-drinker of alcohol (finding) [facility] Start: 06-29-2020 End: 05-09-2023 Alcohol intake [facility] How often to you hav e a drink containing alcohol? Never [facility] How many standard drinks containing alcohol do you have on a typical day? Patient does not drink [facility] Start: 1940 Sex Assigned At Not on file P [facility] Start: 1940 Sex Assigned At Female F [facility] Medical Equipment Procedure Code Equipment Code Equipment Origin al Text Equipment Identifier Dates Start: 03-12-2017 Goals Date Patient Goal Desired Activity /State Personal health goal Comment on above: Formatting of this n ote might be different from the original. Evaluation of progress towards goal: return home self care with hsb support Clinical Notes 06-04-2020 to 08-21-2023 Alie Schumacher, [facility] - 08/21/2023 1:45 PM EDZachery Schumacher, [facility] - 08/21/2023 1:45 PM Ross Manoj Jimenez, [facility] 07/30/2023 12:30 PM CELESTEZachery Olivas Endy, [facility] - 07/30/2023 11:30 AM EDT Note Date & Type Note Facility 08-21-2023 History of Presen t illness Narrative 15 minute ypwx-ey-nwpg follow-up anticoagulation appointment. INR performed in office [...] Upcoming procedures: YES Kidney biopsy on 09/01/23; [facility] Patient thinks she needs to [...] persists or worsens. Alie Schumacher [facility] 08/21/[address] Sarmiento office ([phone]; [facility]) to inquire about procedural needs. LM requesting return call to clarify holding needs for biopsy on 09/01/23. Pending holding needs, clearance to hold may be needed by [facility]. Patient dx: Afib with CHADsVASc=4. Bridging not recommended. Last saw USER EXPERIENCE TEAM LEAD Tony on 07/30/23. Alie Schumacher PharmD, BCPS August 21, 2023 1:49 PM Alie Schumacher [facility] 08/21/23 1350 documented in this encounter [employer] 07-30-2023 History of Presen t illness Narrative Margie Martínez Date of visit: 07/30/2023 Date of : 1940 Age: 83 y.o. Patient Active Problem List Diagnosis COPD with acute exacerbation ([facility]) Bigeminy Benign hypertensive heart disease without congestive heart failure Obstructive sleep apnea syndrome Shortness of breath Abnormal result of cardiovascular function study Class 3 severe obesity in adult ([facility]) Ventricular premature beats 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 ([facility]) PAF (paroxysmal 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) ([facility]) Sinus pause Allergies Allergen Reactions Janeth Inhibitors [...] upon transfer to [facility] from [place] in April. There was reports of post-conversion pause approximately 6 seconds while at [place] though records were not obtainable for review. [...] kidney disease COPD (chronic obstructive pulmonary disease) (CMS-HCC) DM type 2 (diabetes mellitus, type 2) ([facility]) HTN (hypertension) Hyperlipidemia 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 ([facility]) 09/03/2021 Hypothyroid KELECHI (obstructive sleep apnea) No [...] Reorder IMPRESSIONS/PLAN 1. PAF (paroxysmal 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) ([facility]) - amiodarone (PACERONE) 200 mg tablet; [...] RASHAD MERCHANT Referring Physician: RASHAD Cabrera [address] [place] [address] RASHAD Duff 07/30/23 1326 documented in this encounter [facility] [employer] [facility] 07-30-2023 History of Presen t illness Narrative 15 minute gzkq-ea-flhj follow-up anticoagulation appointment. INR performed in office [...] Patient instructed to continue warfarin 2.5 mg Sun/Tue/Th and 1.25 mg [...] RPH 07/30/23 1153 documented in this encounter [facility] 07-29-2023 Miscellaneous Notes Called patient to remind them to bring their most current copy of their medication list with them to their appt. Patient verbalizes understanding. documented in this encounter [facility] 07-29-2023 Telephone encounter Note Called patient to remind them to bring their most current copy of their medication list with them to their appt. Patient verbalizes understanding. [facility] 07-21-2023 History of Presen t illness Narrative Albuterol refill sent to [facility] per pt request. documented in this encounter [facility] 07-18-2023 History of Presen t illness Narrative 15 minute ofrq-ml-fwrp follow-up anticoagulation appointment. INR performed in office [...] Patient instructed to continue warfarin 2.5 mg Fri/Fri/ and 1.25 mg AOD. Check INR in [...] RPH 07/18/23 1318 documented in this encounter [facility] 07-10-2023 History of Presen t illness Narrative 15 minute dhtm-cb-nymd follow-up anticoagulation appointment. INR performed in office per protocol. INR 1.4 (goal range: 2.0-3.0). Patient reports: Taking warfarin dosing as documented. Missed or extra doses of warfarin: No Changes to medications: No Changes to lifestyle (diet / alcohol / smoking / activity): YES Taking probiotic daily Patient notes rolanda on Friday and ryan chili yesterday Recent emergency department visit / hospitalization [...] that persists or worsens. Alie Schumacher RPH 07/10/23 1328 documented in this encounter [employer] 06-26-2023 History of Presen t illness Narrative 15 minute xiiz-ld-onfw follow-up anticoagulation appointment. INR performed in office [...] RPH 06/26/23 1315 documented in this encounter [facility] 06-17-2023 History of Presen t illness Narrative Margie Martínez Date of visit: 06/17/2023 Date of : 1940 Age: 82 y.o. Patient Active Problem List Diagnosis COPD with acute exacerbation ([facility]) Bigeminy Benign hypertensive heart disease without congestive heart failure Obstructive sleep apnea syndrome Shortness of breath Abnormal result of cardiovascular function study Class 3 severe obesity in adult ([facility]) Ventricular premature beats 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 ([facility]) PAF (paroxysmal 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) ([facility]) Sinus pause Allergies Allergen Reactions Janeth Inhibitors [...] monitor which she is going to wear [employer]. She is on long-term oxygen she is [...] kidney disease COPD (chronic obstructive pulmonary disease) ([facility]) DM type 2 (diabetes mellitus, type 2) ([facility]) HTN (hypertension) Hyperlipidemia 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 ([facility]) 09/03/2021 Hypothyroid KELECHI (obstructive sleep apnea) No [...] RASHAD MERCHANT Referring Physician: RASHAD Cabrera [address] [place] [address] documented [facility]23 History of Presen t illness Narrative 15 minute rozp-em-qoax follow-up anticoagulation appointment. INR performed in office [...] RPH 06/17/23 1232 documented in this encounter [facility] 06-16-2023 Miscellaneous Notes Called patient to remind them to bring their most current copy of their medication list with them to their appt. Patient verbalizes understanding. documented in this encounter [facility] 06-16-2023 Telephone encounter Note Called patient to remind them to bring their most current copy of their medication list with them to their appt. Patient verbalizes understanding. [facility] 06-10-2023 History of Presen t illness Narrative 15 minute kfqh-wj-cyvv follow-up anticoagulation appointment. INR performed in office [...] that persists or worsens. Alie Schumacher Venkata 06/10/23 1428 [facility] History of Presen t illness Narrative 15 minute vffc-qv-clfj follow-up anticoagulation appointment. INR performed in office [...] RPH 06/05/23 1132 documented [facility]-03[facility]2023 Evaluation note Encounter Date Diagnosis Assessment Notes May, Edema (ICD-10 - R60.9) [facility] 01-15-2024 History of Present illness Narrative* Alie Schumacher RPH - 06/02/2023 1:15 PM EST 15 minute bttb-bh-fimb follow-up anticoagulation appointment. INR performed in office [...] Schumacher RPH 06/02/23 1424 documented in this encounterKer[facility] HospitalAKT [id number] History of Present illness Narrative* Tr Jimenez APRN-QUILLER OPERATOR - 05/28/2023 1:00 PM EST Margie Matrínez Date of visit: 05/28/2023 Date of : 1940 Age: 82 y.o. Patient Active Problem List Diagnosis COPD with acute exacerbation ([facility]) Bigeminy Benign hypertensive heart disease without congestive heart failure Obstructive sleep apnea syndrome Shortness of breath Abnormal result of cardiovascular function study Class 3 severe obesity in adult ([facility]) Ventricular premature beats 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 ([facility]) PAF (paroxysmal 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) ([facility]) Sinus pause Allergies Allergen Reactions Janeth Inhibitors [...] Units total) by mouth in the morning. [employer] K[employer] 2 SENSOR kit USE DIRECTED CHANGE [...] repeat visit. 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 PAF (paroxysmal 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) ([facility]) - POCT EKG - Wireless Telemetry (In Office); Future 2. Ventricular premature beats - POCT EKG 3. Sinus pause - Wireless Telemetry (In Office); Future 4. Benign hypertensive heart disease without congestive heart failure - Basic Metabolic Panel; Future 5. 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 Patient verbalizes understanding. documented in this encounterSelect Medical TriHealth Rehabilitation HospitalMy-Apps01-09-2024 Telephone encounter Note* Telephone Encounter - Elza Schilling CMA - 05/27/2023 9:42 AM EST Called patient to remind them to bring their most current copy of their medication list with them to their appt. Patient verbalizes understanding. [facility] [id number] History of Present illness Narrative* Alie Schumacher, [facility] - 05/26/2023 1:45 PM EST 15 minute oxlu-tf-ndsm follow-up anticoagulation appointment. INR performed in office [...] 7% (16.25 mg weekly). 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 Alie Schumacher [facility] 05/26/23 1409 documented in this encounterSelect Medical TriHealth Rehabilitation HospitalTeladoc Formerly [facility] [id number] History of Present illness Narrative* Aylin Chahal [facility] - 05/21/2023 11:30 AM EST 30 minute azyu-hy-zxxy follow-up anticoagulation appointment. INR performed in office [...] Chahal RPH 05/21/23 1143 documented in this encounterKerbs Memorial HospitalXrispi Labs Ltd.12-06-2023 Evaluation note* Encounter Date Diagnosis Assessment Notes Treatment Notes Treatment Clinical Notes Apr, Nephritis (ICD-10 - N05.9) [facility] Other [id number] Evaluation note* Encounter Date Diagnosis Assessment Notes [...] check iron, folate and VB12 storage studies [facility] Other 12-04-2023 Evaluation note* Encounter Date Diagnosis Assessment Notes Treatment Notes Treatment Clinical Notes Apr, Edema (ICD-10 - R60.9) [facility] Other 10-04-2023 Evaluation note* Encounter Date Diagnosis Assessment Notes Treatment Notes Treatment Clinical Notes Feb, Dietary counseling and surveillance (ICD-10 - Z71.3) Maintaining a healthful weight material was printed see above Feb, Type 2 diabetes mellitus (ICD-10 - E11.9) Type 2 diabetes material was printed 1. Controlled, Type 2 diabetes with A1c 5.8%. 2. Blood glucose levels improved. According to [employer] 2 cgm download 02/06/2023- 3 Avg glucose [...] hyperglycemia, or diabetes medication issues. 6. 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 Keep f/u with nephrology Feb, BMI 40.0-44.9, adult (ICD-10 - Z68.41) [facility] Other 09-27-2023 Evaluation note* Encounter Date Diagnosis Assessment Notes Treatment Notes Treatment Clinical Notes Jan, Type 2 diabetes mellitus with diabetic chronic kidney disease (ICD-10 - E11.22) Pt here for appointment today with spouse, for [employer] 2 training. [employer] training discussed, instructed on use and application. Patient brought in her own Con[employer] reader which displays connected to a computer on the screen. Pt contacted [employer] for reader replacement. Pt also brought in new reader. New reader set up with pt. Instructed pt to send old reader back to [employer]. Pt states she will send old reader back. Informed pt the old reader USB port may be damaged. Pt has 12 days left of current sensor she is wearing. Instructed pt when she applies new sensor to scan with new reader. Pt states understanding. Reviewed with patient testing glucose with Kusum priscilla, hs explained how to enter insulin dosing/notes into [employer] reader. Reviewed with patient no more than [...] spent on education by Rangel CANTU, RN [facility] Other 06-06-2023 Evaluation note* Encounter Date Diagnosis [...] On Bumex for volume management Avoid NSAIDs [facility] Other 04-03-2023 Evaluation note* Encounter Date Diagnosis [...] hypertension material was printed on arb Aug, retirement current use of insulin (ICD-10 - Z79.4) Aug, Vitamin B 12 deficiency (ICD-10 - E53.8) 09/08 b12 345 at target Aug, Albuminuria (ICD-10 - R80.9) Protein, urine material was printed Reviewed importance of glucose/bp control to prevent further nephropathy. Keep f/u with nephrology Aug, BMI 39.0-39.9,adult (ICD-10 - Z68.39) 11 pound weight loss from last visit, continue with weight loss efforts [facility] Other 10-12-2022 Evaluation note* Encounter Date Diagnosis Assessment Notes Treatment Notes Treatment Clinical Notes Feb, Dietary counseling and surveillance (ICD-10 - Z71.3) Maintaining a healthful weight material was printed see above Feb, Type 2 diabetes mellitus (ICD-10 - E11.9) Type 2 diabetes material was printed 1. Controlled, Type 2 diabetes with A1c of 6.1% 2. Blood glucose levels stable. According to [employer] 2 cgm download 02/14/2022-02/28/20 22 Avg glucose [...] hypertension material was printed on arb Feb, retirement current use of insulin (ICD-10 - Z79.4) [...] E11.649) Hypoglycemia material was printed see above [facility] Other 09-12-2022 Evaluation note* Encounter Date Diagnosis Assessment Notes Treatment Notes Treatment Clinical Notes Jan, Edema (ICD-10 - R60.9) [facility] Other 08-24-2022 Evaluation note* Encounter Date Diagnosis Assessment Notes Treatment Notes Treatment Clinical Notes Dec, Type 2 diabetes mellitus with diabetic chronic kidney disease (ICD-10 - E11.22) Dec, Type 2 diabetes mellitus (ICD-10 - E11.9) [facility] Other 06-17-2022 Evaluation note* Encounter Date Diagnosis Assessment Notes Treatment Notes Treatment Clinical Notes Oct, Vitamin B 12 deficiency (ICD-10 - E53.8) [facility] Other 06-07-2022 Evaluation note* Encounter Date Diagnosis [...] arthritis and sleep apnea has been addressed. 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 - Z79.4) [...] E11.649) Hypoglycemia material was printed see above [facility] Other [id number] History general Narrative - Reported* Type Description [...] History SEE ABOVE Hospitalization History COPD 07/08 [facility] Other Evaluation noteNo InformationNort Ludia Other evaluation note* Diagnosis PAF (paroxysmal 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) ([facility]rial [facility] (paroxysmal 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[facility] ([facility] Primary Atrial fibrillation [facility] Diagnosis PAF (paroxysmal 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) ([facility] Primary Atrial fibrillation Ventricular premature beats Other premature beats Sinus pause Benign hypertensive heart disease without congestive heart failure Benign hypertensive heart disease without heart failure retirement current use of amiodarone [facility] (paroxysmal 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) ([facility] Primary Atrial fibrillation [facility]F (paroxysmal 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) ([facility] Primary Atrial fibrillation [facility]F (paroxysmal 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) ([facility] Primary Atrial fibrillation Benign hypertensive heart disease without congestive heart failure Benign hypertensive heart disease without heart failure 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 ([facility]) Shortness of breath COPD with acute exacerbation ([facility]F (paroxysmal 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) ([facility] Primary Atrial fibrillation [facility] Work Phone: evaluation note* Diagnosis PAF (paroxysmal 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) ([facility] Primary Atrial fibrillation [facility] Diagnosis Shortness of breath Chronic obstructive pulmonary disease, unspecified COPD type ([facility] PAF (paroxysmal 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) ([facility])- Primary Atrial fibrillation Hyperlipidemia, unspecified hyperlipidemia type Benign hypertensive heart disease without congestive heart failure Benign hypertensive heart disease without heart failure [facility] Diagnosis Onset Date Resolution Status Anemia acute BMI 50.0-59.9, adult acute Edema acute Hyperlipidemia acute [id number] acute Stage 3b chronic kidney disease (CKD) acute Type 2 diabetes mellitus wit h diabetic chronic kidney disease acute [facility] Work Phone: Evaluation note* Diagnosis Onset Date Resolution Status Anemia acute BMI 50.0-59.9, adult acute Edema acute Hyperlipidemia acute [id number] acute Stage 3b chronic kidney disease (CKD) acute Type 2 diabetes mellitus wit h diabetic chronic kidney disease acute Diabetes acute Dietary counseling and surveillance acute HTN (hypertension) acute Hyperlipidemia acute Vitamin B 12 deficiency acut [facility] Work Phone: Evaluation note* Diagnosis Onset Date Resolution Status Anemia acute BMI 50.0-59.9, adult acute Edema acute Hyperlipidemia acute [id number] acute Stage 3b chronic kidney disease (CKD) acute Type 2 diabetes mellitus wit h diabetic chronic kidney disease acute BMI 40.0-44.9, adult acute Diabetes acute Dietary counseling and surveillance acute HTN (hypertension) acute Hyperlipidemia acute Vitamin B 12 deficiency acut [facility] Work Phone: Evaluation note* Diagnosis Onset Date Resolution Status Anemia acute BMI 50.0-59.9, adult acute Edema acute Hyperlipidemia acute [id number] acute Stage 3b chronic kidney disease (CKD) acute Type 2 diabetes mellitus wit h diabetic chronic kidney disease acute BMI 40.0-44.9, adult acute Diabetes acute Dietary counseling and surveillance acute HTN (hypertension) acute Hyperlipidemia acute Vitamin B 12 deficiency acut e Anemia acute Edema acute Fibrillary glomerulonephritis acute Hyperparathyroidism acute [id number] acute Stage 3b chronic kidney disease (CKD) acute Type 2 diabetes mellitus wit h diabetic chronic kidney disease acute [facility] Work Phone: Evaluation note* Diagnosis Onset Date Resolution Status Anemia acute BMI 50.0-59.9, adult acute Edema acute Hyperlipidemia acute [id number] acute Stage 3b chronic kidney disease (CKD) acute Type 2 diabetes mellitus wit h diabetic chronic kidney disease acute BMI 40.0-44.9, adult acute Diabetes acute Dietary counseling and surveillance acute HTN (hypertension) acute Hyperlipidemia acute Vitamin B 12 deficiency acut e Anemia acute Edema acute Fibrillary glomerulonephritis acute Hyperparathyroidism acute [id number] acute Stage 3b chronic kidney disease (CKD) acute Type 2 diabetes mellitus wit h diabetic chronic kidney disease acute Anemia acute Edema acute Fibrillary glomerulonephritis acute Hyperparathyroidism acute [id number] acute Stage 3b chronic kidney disease (CKD) acute Type 2 diabetes mellitus wit h diabetic chronic kidney disease acute [facility] Work Phone: Evaluation note* Diagnosis Onset Date Resolution Status Anemia acute BMI 50.0-59.9, adult acute Edema acute Hyperlipidemia acute [id number] acute Stage 3b chronic kidney disease (CKD) acute Type 2 diabetes mellitus wit h diabetic chronic kidney disease acute BMI 40.0-44.9, adult acute Diabetes acute Dietary counseling and surveillance acute HTN (hypertension) acute Hyperlipidemia acute Vitamin B 12 deficiency acut e Anemia acute Edema acute Fibrillary glomerulonephritis acute Hyperparathyroidism acute [id number] acute Stage 3b chronic kidney disease (CKD) acute Type 2 diabetes mellitus wit h diabetic chronic kidney disease acute Anemia acute Edema acute Fibrillary glomerulonephritis acute Hyperparathyroidism acute [id number] acute Stage 3b chronic kidney disease (CKD) acute Type 2 diabetes mellitus wit h diabetic chronic kidney disease acute Anemia acute Edema acute Fibrillary glomerulonephritis acute Hyperparathyroidism acute [id number] acute Stage 3b chronic kidney disease (CKD) acute Type 2 diabetes mellitus wit h diabetic chronic kidney disease acute [facility] Work Phone: Evaluation note* Diagnosis Onset Date Resolution Status Anemia acute BMI 50.0-59.9, adult acute Edema acute Hyperlipidemia acute [id number] acute Stage 3b chronic kidney disease (CKD) acute Type 2 diabetes mellitus wit h diabetic chronic kidney disease acute BMI 40.0-44.9, adult acute Diabetes acute Dietary counseling and surveillance acute HTN (hypertension) acute Hyperlipidemia acute Vitamin B 12 deficiency acut e Anemia acute Edema acute Fibrillary glomerulonephritis acute Hyperparathyroidism acute [id number] acute Stage 3b chronic kidney disease (CKD) acute Type 2 diabetes mellitus wit h diabetic chronic kidney disease acute Anemia acute Edema acute Fibrillary glomerulonephritis acute Hyperparathyroidism acute [id number] acute Stage 3b chronic kidney disease (CKD) acute Type 2 diabetes mellitus wit h diabetic chronic kidney disease acute Anemia acute Edema acute Fibrillary glomerulonephritis acute Hyperparathyroidism acute [id number] acute Stage 3b chronic kidney disease (CKD) acute Type 2 diabetes mellitus wit h diabetic chronic kidney disease acute Anemia acute Edema acute Fibrillary glomerulonephritis acute Hyperkalemia acute Hyperparathyroidism acute [id number] acute Stage 3b chronic kidney disease (CKD) acute Type 2 diabetes mellitus wit h diabetic chronic kidney disease acute [facility] Work Phone: Evaluation note* Diagnosis Onset Date Resolution Status BMI 40.0-44.9, adult acute Diabetes acute Dietary counseling and surveillance acute HTN (hypertension) acute Hyperlipidemia acute Vitamin B 12 deficiency acut e Anemia acute Edema acute Fibrillary glomerulonephritis acute Hyperparathyroidism acute [id number] acute Stage 3b chronic kidney disease (CKD) acute Type 2 diabetes mellitus wit h diabetic chronic kidney disease acute Anemia acute Edema acute Fibrillary glomerulonephritis acute Hyperparathyroidism acute [id number] acute Stage 3b chronic kidney disease (CKD) acute Type 2 diabetes mellitus wit h diabetic chronic kidney disease acute Anemia acute Edema acute Fibrillary glomerulonephritis acute Hyperparathyroidism acute [id number] acute Stage 3b chronic kidney disease (CKD) acute Type 2 diabetes mellitus wit h diabetic chronic kidney disease acute Anemia acute Edema acute Fibrillary glomerulonephritis acute Hyperkalemia acute Hyperparathyroidism acute [id number]-[id number] acute Stage 3b chronic kidney disease (CKD) acute Type 2 diabetes mellitus wit h diabetic chronic kidney disease acute Anemia acute Edema acute Fibrillary glomerulonephritis acute Hyperkalemia acute Hyperparathyroidism acute [id number] acute Stage 3b chronic kidney disease (CKD) acute Type 2 diabetes mellitus wit h diabetic chronic kidney disease acute [facility] Work Phone: Evaluation note* Diagnosis Onset Date Resolution Status Anemia acute Edema acute Fibrillary glomerulonephritis acute Hyperparathyroidism acute [id number] acute Stage 3b chronic kidney disease (CKD) acute Type 2 diabetes mellitus wit h diabetic chronic kidney disease acute Anemia acute Edema acute Fibrillary glomerulonephritis acute Hyperparathyroidism acute [id number] acute Stage 3b chronic kidney disease (CKD) acute Type 2 diabetes mellitus wit h diabetic chronic kidney disease acute Anemia acute Edema acute Fibrillary glomerulonephritis acute Hyperparathyroidism acute [id number] acute Stage 3b chronic kidney disease (CKD) acute Type 2 diabetes mellitus wit h diabetic chronic kidney disease acute Anemia acute Edema acute Fibrillary glomerulonephritis acute Hyperkalemia acute Hyperparathyroidism acute [id number] acute Stage 3b chronic kidney disease (CKD) acute Type 2 diabetes mellitus wit h diabetic chronic kidney disease acute Anemia acute Edema acute Fibrillary glomerulonephritis acute Hyperkalemia acute Hyperparathyroidism acute [id number] acute Stage 3b chronic kidney disease (CKD) acute Type 2 diabetes mellitus wit h diabetic chronic kidney disease acute BMI 40.0-44.9, adult acute Diabetes acute Dietary counseling and surveillance acute HTN (hypertension) acute Hyperlipidemia acute Vitamin B 12 deficiency acut e [facility] Work Phone: Evaluation note* Diagnosis Onset Date Resolution Status Anemia acute Edema acute Fibrillary glomerulonephritis acute Hyperparathyroidism acute [id number] acute Stage 3b chronic kidney disease (CKD) acute Type 2 diabetes mellitus wit h diabetic chronic kidney disease acute Anemia acute Edema acute Fibrillary glomerulonephritis acute Hyperparathyroidism acute [id number] acute Stage 3b chronic kidney disease (CKD) acute Type 2 diabetes mellitus wit h diabetic chronic kidney disease acute Anemia acute Edema acute Fibrillary glomerulonephritis acute Hyperkalemia acute Hyperparathyroidism acute [id number] acute Stage 3b chronic kidney disease (CKD) acute Type 2 diabetes mellitus wit h diabetic chronic kidney disease acute Anemia acute Edema acute Fibrillary glomerulonephritis acute Hyperkalemia acute Hyperparathyroidism acute [id number] acute Stage 3b chronic kidney disease (CKD) acute Type 2 diabetes mellitus wit h diabetic chronic kidney disease acute BMI 40.0-44.9, adult acute Diabetes acute Dietary counseling and surveillance acute HTN (hypertension) acute Hyperlipidemia acute Vitamin B 12 deficiency acut e Anemia acute Stage 3a chronic kidney disease (CKD) acute [facility] Work Phone: Evaluation note* Diagnosis Onset Date Resolution Status Anemia acute Edema acute Fibrillary glomerulonephritis acute Hyperparathyroidism acute [id number] acute Stage 3b chronic kidney disease (CKD) acute Type 2 diabetes mellitus wit h diabetic chronic kidney disease acute Anemia acute Edema acute Fibrillary glomerulonephritis acute Hyperkalemia acute Hyperparathyroidism acute [id number]-[id number] acute Stage 3b chronic kidney disease (CKD) acute Type 2 diabetes mellitus wit h diabetic chronic kidney disease acute Anemia acute Edema acute Fibrillary glomerulonephritis acute Hyperkalemia acute Hyperparathyroidism acute [id number]-[id number]-[id number] acute Stage 3b chronic kidney disease (CKD) acute Type 2 diabetes mellitus wit h diabetic chronic kidney disease acute BMI 40.0-44.9, adult acute Diabetes acute Dietary counseling and surveillance acute HTN (hypertension) acute Hyperlipidemia acute Vitamin B 12 deficiency acut e Anemia acute Stage 3a chronic kidney disease (CKD) acute [facility] Work Phone: Hospital Discharge instructionsAmbulatory Orders* AMB POC INR Time Frame: 2 Months, Location: Determined By Patient [facility] Work Phone: InstructionsNot on filedocumented in [...] To Contact Diagnoses PAF (paroxysmal 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) (CMS-HCC) Sinus pause Procedures Wireless Telemetry (In Office) Tr Jimenez, UNLOADER OPERATOR-QUILLER OPERATOR [address] [place] [address] Referral ID Status Reason Start Date Expiration Date V isits Requested Visits Authorized [id number] Pending Review 05/28/2023 05/27/2024 1 1 Chief Complaint and Reason for Visit Chief Complaint Renal 6 Month Follow Up Chief Complaint RENAL 3 month Follow up Reason for Visit Anemia BMI 50.0-59.9, adult Edema Hyperlipidemia [id number] 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 Chief Complaint RENAL 3 month Follow up kusum reader Reason for Visit Anemia BMI 50.0-59.9, adult Edema Hyperlipidemia [id number] 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 Diabetes Dietary counseling and surveillance HTN (hypertension) Hyperlipidemia Vitamin B 12 deficiency Chief Complaint RENAL 3 month Follow up kusum reader N18.32 R60.9 D64.9 Z68.43 E78.5 E11.22 I12.9 Reason for Visit Anemia BMI 50.0-59.9, adult Edema Hyperlipidemia [id number] 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 BMI 40.0-44.9, adult Diabetes Dietary counseling and surveillance HTN (hypertension) Hyperlipidemia Vitamin B 12 deficiency Chief Complaint RENAL 3 month Follow up kusum reader N18.32 R60.9 D64.9 Z68.43 E78.5 E11.22 I12.9 RENAL F/U Reason for Visit Anemia BMI 50.0-59.9, adult Edema Hyperlipidemia [id number] 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 BMI 40.0-44.9, adult Diabetes Dietary counseling and surveillance HTN (hypertension) Hyperlipidemia Vitamin B 12 deficiency Anemia Edema Fibrillary glomerulonephritis Hyperparathyroidism [id number] 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 Chief Complaint RENAL 3 month Follow up kusum reader N18.32 R60.9 D64.9 Z68.43 E78.5 E11.22 I12.9 RENAL F/U 3 week f/u Reason for Visit Anemia BMI 50.0-59.9, adult Edema Hyperlipidemia [id number] 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 BMI 40.0-44.9, adult Diabetes Dietary counseling and surveillance HTN (hypertension) Hyperlipidemia Vitamin B 12 deficiency Anemia Edema Fibrillary glomerulonephritis Hyperparathyroidism [id number] 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 Anemia Edema Fibrillary glomerulonephritis Hyperparathyroidism [id number] 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 Chief Complaint RENAL 3 month Follow up kusum reader N18.32 R60.9 D64.9 Z68.43 E78.5 E11.22 I12.9 RENAL F/U 3 week f/u RENAL 2 MONTH F/U Reason for Visit Anemia BMI 50.0-59.9, adult Edema Hyperlipidemia [id number] 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 BMI 40.0-44.9, adult Diabetes Dietary counseling and surveillance HTN (hypertension) Hyperlipidemia Vitamin B 12 deficiency Anemia Edema Fibrillary glomerulonephritis Hyperparathyroidism [id number] 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 Anemia Edema Fibrillary glomerulonephritis Hyperparathyroidism [id number] 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 Anemia Edema Fibrillary glomerulonephritis Hyperparathyroidism [id number] 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 Chief Complaint RENAL 3 month Follow up kusum reader N18.32 R60.9 D64.9 Z68.43 E78.5 E11.22 I12.9 RENAL F/U 3 week f/u RENAL 2 MONTH F/U RENAL 3 WK INJ RETACRIT Reason for Visit Anemia BMI 50.0-59.9, adult Edema Hyperlipidemia [id number] 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 BMI 40.0-44.9, adult Diabetes Dietary counseling and surveillance HTN (hypertension) Hyperlipidemia Vitamin B 12 deficiency Anemia Edema Fibrillary glomerulonephritis Hyperparathyroidism [id number] 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 Anemia Edema Fibrillary glomerulonephritis Hyperparathyroidism [id number] 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 Anemia Edema Fibrillary glomerulonephritis Hyperparathyroidism [id number]-[id number] 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 Anemia Edema Fibrillary glomerulonephritis Hyperkalemia Hyperparathyroidism [id number]-[id number] Stage 3b chronic kidney disease (CKD) Type [...] 12 deficiency Anemia Edema Fibrillary glomerulonephritis Hyperparathyroidism [id number] 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 Anemia Edema Fibrillary glomerulonephritis Hyperparathyroidism [id number]-22035732 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 Anemia Edema Fibrillary glomerulonephritis Hyperparathyroidism [id number] 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 Anemia Edema Fibrillary glomerulonephritis Hyperkalemia Hyperparathyroidism [id number] 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 Anemia Edema Fibrillary glomerulonephritis Hyperkalemia Hyperparathyroidism [id number] 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 Chief Complaint RENAL F/U 3 week f/u RENAL 2 MONTH F/U RENAL 3 WK INJ RETACRIT RENAL 2 WK INJ / RETACRIT METER Reason for Visit Anemia Edema Fibrillary glomerulonephritis Hyperparathyroidism [id number] 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 Anemia Edema Fibrillary glomerulonephritis Hyperparathyroidism [id number] 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 Anemia Edema Fibrillary glomerulonephritis Hyperparathyroidism [id number] 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 Anemia Edema Fibrillary glomerulonephritis Hyperkalemia Hyperparathyroidism [id number] 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 Anemia Edema Fibrillary glomerulonephritis Hyperkalemia Hyperparathyroidism [id number]-36874635 Stage 3b chronic kidney disease (CKD) Type [...] for Visit Anemia Edema Fibrillary glomerulonephritis Hyperparathyroidism [id number] 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 Anemia Edema Fibrillary glomerulonephritis Hyperparathyroidism SOI-[id number]-[id number] 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 Anemia Edema Fibrillary glomerulonephritis Hyperkalemia Hyperparathyroidism [id number] 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 Anemia Edema Fibrillary glomerulonephritis Hyperkalemia Hyperparathyroidism [id number]-[id number] 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 BMI 40.0-44.9, adult Diabetes Dietary counseling and surveillance HTN (hypertension) Hyperlipidemia Vitamin B 12 deficiency Anemia Stage 3a chronic kidney disease (CKD) Chief Complaint RENAL 2 MONTH F/U RENAL 3 WK INJ RETACRIT RENAL 2 WK INJ / RETACRIT METER RENAL 2 WK INJ / RETACRIT / NURSE RENAL 2 WK INJ/RETACRIT/NURSE Reason for Visit Anemia Edema Fibrillary glomerulonephritis Hyperparathyroidism [id number] 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 Anemia Edema Fibrillary glomerulonephritis Hyperkalemia Hyperparathyroidism [id number] 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 Anemia Edema Fibrillary glomerulonephritis Hyperkalemia Hyperparathyroidism [id number]-[id number] Stage 3b chronic kidney disease (CKD) Type [...] Comments Follow-up HOSP F/U 05/08-05/10 TTH-L/S MBE-LABS 12/23TTH-CHEST XRAY -ECHO -SCHD APPT W/PT Reason Comments Follow-up EST PT 9 WEEK FU Med Refill Amiodarone and crest or INFORMATION SOURCE (unrecogn ized section and content) DATE CREATED AUTHOR 10/27/2022 [facility] DATE CREATED AUTHOR AUTHOR'S ORGANIZ ATION 09/08/2023 [facility] DATE CREATED AUTHOR AUTHOR'S ORGANIZ ATION 09/13/2023 [facility] EPIC DATE CREATED AUTHOR AUTHOR'S ORGANIZ ATION 12/07/2023 [facility] Care Teams (unrecognized sec tion and content) Team Status: Active Member Role Status Dates Anika Henry NP-Thuy Primary Care Provider Active Team Status: Active Member Role Status Dates ALFERDO Jiang Primary Care Provider Active Start: September 16, [...] Active Member Role Status Dates Anika Henry USER EXPERIENCE TEAM LEAD-C Primary Care Provider Active Start: November 13, 2023 Rin Sarmiento MD Attending Provider Active Star t: November 13, 2023 Team Status: Inactive Member Role Status Dates Anika Henry USER EXPERIENCE TEAM LEAD-C Primary Care Provider Active Start: November 18, 2023 End: November 18, 2023 Rin Sarmiento MD Attending Provider Active Star t: November 18, 2023 End: November 18, 2023 Team Status: Active Member Role Status Dates Rin Sarmiento MD Attending Provider Active Star t: November 27, 2023 Anika Henry USER EXPERIENCE TEAM LEAD-C Primary Care Provider Active Start: November 27, 2023 Team Status: Inactive Member Role Status Dates Anika Henry USER EXPERIENCE TEAM LEAD-C Primary Care Provider Active Start: December 08, 2023 End: December 08, 2023 Chester Lin APRN Attending Provider Active Start: December 08, 2023 End: December 08, 2023 Team Status: Inactive Member Role Status Dates Anika Henry USER EXPERIENCE TEAM LEAD-C Primary Care Provider Active Start: December 11, 2023 End: December 11, 2023 Becca Rodriguez MD Attending Provider Active Start : December 11, 2023 End: December 11, 2023 Team Status: Inactive Member Role Status Dates Anika Henry , USER EXPERIENCE TEAM LEAD-C Primary Care Provider Active Start: August 13, 2023 End: August 13, 2023 Rin Sarmiento MD Attending Provider Active Star t: August 13, 2023 End: August 13, 2023 Team Status: Inactive Member Role Status Dates Anika Henry USER EXPERIENCE TEAM LEAD-C Primary Care Provider Active Start: August 20, 2023 End: August 20, 2023 Chester Lin APRN Attending Provider Active Start: August 20, 2023 End: August 20, 2023 Team Status: Inactive Member Role Status Dates Anika Henry , USER EXPERIENCE TEAM LEAD-C Primary Care Provider Active Start: September 01, 2023 End: September 01, 2023 Rin Sarmiento MD Attending Provider Active Star t: September 01, 2023 End: September 01, 2023 Team Status: Inactive Member Role Status Dates AnikaALFREDO Lewis Primary Care Provider Active Start: September 09, [...] Provider Active Star t: August 05, 2023 Engineering Secretary Relationship Specialty Start Date End Date Anika Henry APRN-QUILLER OPERATOR [address] [facility], [place] [address] PCP - General Family Medicine 04/29/23 Engineering Secretary Relationship Specialty Start Date End Date Anika Henry APRN-QUILLER OPERATOR [address] [facility], [place] [address] PCP - General Family Medicine 04/29/23 Engineering Secretary Relationship Specialty Start Date End Date Anika Henry APRN-QUILLER OPERATOR [address] [facility], [place] [address] PCP - General Family Medicine 04/29/23 Engineering Secretary Relationship Specialty Start Date End Date Anika Henry APRN-QUILLER OPERATOR [address] [facility], [place] [address] PCP - General Family Medicine 04/29/23 Engineering Secretary Relationship Specialty Start Date End Date Anika Henry APRN-QUILLER OPERATOR [address] [facility], [place] [address] PCP - General Family Medicine 04/29/23 Engineering Secretary Relationship Specialty Start Date End Date Anika Henry APRN-CNP [address] [facility], [place] [address] PCP - General Family Medicine 04/29/23 Engineering Secretary Relationship Specialty Start Date End Date Anika Henry APRN-CNP [address] [facility], [place] [address] PCP - General Family Medicine 04/29/23 Team Status: Inactive Member Role Status Dates Rin Sarmiento MD Attending Provider Active Star t: April 22, 2023 End: April 22, 2023 Engineering Secretary Relationship Specialty Start Date End Date Anika Henry APRN-CNP [address] [facility], [place] [address] PCP - General Family Medicine 04/29/23 Engineering Secretary Relationship Specialty Start Date End Date Anika Henry APRN-CNP [address] [facility], [place] [address] PCP - General Family Medicine 04/29/23 Team Status: Inactive Member Role Status Dates Anika Henry NP-C Primary Care Provider Active Start: December 30, 2023 End: December 30, 2023 Rin Sarmiento MD Attending Provider Active Star t: December 30, 2023 End: December 30, 2023 Goals (unrecognized section and content) Goals [...] BE BASED ON THE PRIMARY CLINICAL RECORDS. [facility] [employer] [facility]. provides no warranty or guarantee of the accuracy or completeness of information in this document.
[2024-01-05 10:07] LABS: Hematocrit 32.4 % (36.0-48.0); Hemoglobin 9.8 g/dL (12.0-16.0); Mean Corpuscular HGB Conc 30.2 g/dL (29.9-35.2); Mean Corpuscular Hemoglobin 30.1 pg (26.7-34.0); Mean Corpuscular Volume 99.4 fL (81.0-99.0); Mean Platelet Volume 9.3 fL (9.5-13.5); Platelet Count 211 10^3/uL (150-450); Red Blood Count 3.26 10^6/uL (4.20-5.40); Red Cell Distribution Width 14.2 % (11.0-15.0); White Blood Count 5.7 10^3/uL (4.0-11.0)
== END 2024-01-05 09:48 | disposition home or self-care (01) ==
LOC: LAB 09:48
PROVIDERS: PCP Nurse Practitioner Family; Visit Provider Internal Medicine Nephrology
DX: N18.9 Chronic kidney disease, unspecified (principal); D63.1 Anemia in chronic kidney disease
CPT/HCPCS: 36415; 85027

== ENCOUNTER 2024-01-20 10:18 | Outpatient (OUT) | payer MEDICARE, SELFPAY ==
[2024-01-20 10:40] LABS: Hematocrit 32.5 % (36.0-48.0); Hemoglobin 9.6 g/dL (12.0-16.0); Mean Corpuscular HGB Conc 29.5 g/dL (29.9-35.2); Mean Corpuscular Volume 101.6 fL (81.0-99.0); Mean Platelet Volume 9.6 fL (9.5-13.5); Platelet Count 196 10^3/uL (150-450); White Blood Count 6.4 10^3/uL (4.0-11.0)
[2024-01-20 11:22] LABS: Anion Gap 10.2; BUN Creatinine Ratio 23.3; Calcium 8.5 mg/dL (8.5-10.1); Carbon Dioxide 31.6 mmol/L (21.0-32.0); Chloride 108 mmol/L (98-107); Estimated GFR (African America 28 (>=60); Estimated GFR (Non-African Ame 23 (>=60); Glucose 106 mg/dL (74-106); Phosphorus 4.2 mg/dL (2.6-4.7); Potassium 5.8 mmol/L (3.5-5.1); Sodium 144 mmol/L (136-145)
== END 2024-01-20 10:19 | disposition home or self-care (01) ==
LOC: LAB 10:19
PROVIDERS: PCP Nurse Practitioner Family; Visit Provider Internal Medicine
DX: D64.9 Anemia, unspecified (principal); N18.31 Chronic kidney disease, stage 3a
CPT/HCPCS: 36415; 80069; 82728; 83540; 83550; 85027

== ENCOUNTER 2024-01-23 08:50 | Outpatient (OUT) | payer MEDICARE, SELFPAY ==
[2024-01-23 10:10] LABS: BUN Creatinine Ratio 21.1; Calcium 8.6 mg/dL (8.5-10.1); Carbon Dioxide 30.8 mmol/L (21.0-32.0); Chloride 107 mmol/L (98-107); Estimated GFR (African America 27 (>=60); Estimated GFR (Non-African Ame 23 (>=60); Glucose 100 mg/dL (74-106); Phosphorus 4.1 mg/dL (2.6-4.7); Potassium 5.8 mmol/L (3.5-5.1); Sodium 144 mmol/L (136-145)
== END 2024-01-23 08:51 | disposition home or self-care (01) ==
LOC: LAB 08:51
PROVIDERS: PCP Nurse Practitioner Family; Visit Provider Internal Medicine Nephrology
DX: E87.5 Hyperkalemia (principal); N18.32 Chronic kidney disease, stage 3b
CPT/HCPCS: 36415; 80069

== ENCOUNTER 2024-02-03 09:10 | Outpatient (OUT) | payer MEDICARE, SELFPAY ==
[2024-02-03 09:34] LABS: Hematocrit 33.5 % (36.0-48.0); Mean Corpuscular HGB Conc 29.9 g/dL (29.9-35.2); Mean Corpuscular Hemoglobin 29.4 pg (26.7-34.0); Mean Corpuscular Volume 98.5 fL (81.0-99.0); Mean Platelet Volume 9.6 fL (9.5-13.5); Platelet Count 227 10^3/uL (150-450); Red Cell Distribution Width 14.4 % (11.0-15.0); White Blood Count 6.3 10^3/uL (4.0-11.0)
[2024-02-03 09:59] LABS: Albumin Level 3.1 g/dL (3.4-5.0); Anion Gap 9.7; BUN Creatinine Ratio 20.6; Calcium 8.8 mg/dL (8.5-10.1); Carbon Dioxide 32.9 mmol/L (21.0-32.0); Chloride 103 mmol/L (98-107); Estimated GFR (African America 23 (>=60); Estimated GFR (Non-African Ame 19 (>=60); Glucose 101 mg/dL (74-106); Phosphorus 4.7 mg/dL (2.6-4.7); Potassium 4.6 mmol/L (3.5-5.1); Sodium 141 mmol/L (136-145)
== END 2024-02-03 09:11 | disposition home or self-care (01) ==
LOC: LAB 09:10
PROVIDERS: PCP Nurse Practitioner Family; Visit Provider Internal Medicine Nephrology
DX: E87.5 Hyperkalemia (principal); N05.9 Unspecified nephritic syndrome with unspecified morphologic changes; N18.32 Chronic kidney disease, stage 3b; E21.3 Hyperparathyroidism, unspecified; D64.9 Anemia, unspecified; E11.22 Type 2 diabetes mellitus with diabetic chronic kidney disease
CPT/HCPCS: 36415; 80069; 85027

== ENCOUNTER 2024-02-23 10:16 | Outpatient (OUT) | payer MEDICARE, SELFPAY ==
--- OUTSIDE RECORDS SUMMARY | 2024-02-23 10:39 | XMS_ITS | CCD ---
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 2.89 10 6/uL Low 4.20-5.40 [facility] Serum or plasma anion gap de terminationon 10-30-2023 Anion gap [Moles/Vol] 12.6 mmol/L [facility] Erythrocyte distribution wid th Auto (RBC) [Ratio]on 10-07-2023 Erythrocyte distribution width (RBC) [Ratio] 14.2 % 11.0-15.[address] [facility] Hematocrit Auto (Bld) [Volum e fraction]on 10-07-2023 Hematocrit (Bld) [Volume fraction] 28.0 % Low 36.0-48.[address] [facility] Hemoglobin [Mass/volume] in Bloodon 10-07-2023 Hemoglobin (Bld) [Mass/Vol] 8.6 g/dL Low 12.0-16.[address] [facility] Leukocytes [#/volume] correc katy for nucleated erythrocytes in Blood by Automated counon 10-07-2023 WBC corrected for nucl RBC Auto (Bld) [#/Vol] 5.1 10 3/uL 4.0-11.[address] [facility] MCH Auto (RBC) [Entitic mass ]on 10-07-2023 MCH (RBC) [Entitic mass] 30.1 pg 26.7-34.[address] [facility] MCHC Auto (RBC) [Mass/Vol]on 10-07-2023 MCHC (RBC) [Mass/Vol] 30.7 g/dL 29.9-35.2 [facility] MCV Auto (RBC) [Entitic vol] on 10-07-2023 MCV (RBC) [Entitic vol] 97.9 fL 81.0-99.[address] [facility] Platelet mean volume Auto (B ld) [Entitic vol]on 10-07-2023 Platelet mean volume (Bld) [Entitic vol] 10.1 fL 9.5-13.[address] [facility] Platelets Auto (Bld) [#/Vol] on 10-07-2023 Platelets (Bld) [#/Vol] 194 10 3/uL 150-[address] [facility] RBC Auto (Bld) [#/Vol]on RBC (Bld) [#/Vol] 2.86 10 6/uL Low 4.20-5.40 [facility] Erythrocyte distribution wid th Auto (RBC) [Ratio]on 09-16-2023 Erythrocyte distribution width (RBC) [Ratio] 14.0 % 11.0-15.[address] [facility] Estimated glomerular filtrat ion rate (GFR) non- Americanon 09-16-2023 GFR/1.73 sq M.predicted among non-blacks MDRD (S/P/Bld) [Vol rate/Area] 22 mL/min/{1.73_m2} Low >=[address] [facility] Hematocrit Auto (Bld) [Volum e fraction]on 09-16-2023 Hematocrit (Bld) [Volume fraction] 25.6 % Low 36.0-48.[address] [facility] Hemoglobin [Mass/volume] in Bloodon 09-16-2023 Hemoglobin (Bld) [Mass/Vol] 7.5 g/dL Low 12.0-16.[address] [facility] Laboratory - Chemistry and C hemistry - challengeon 09-16-2023 Albumin [Mass/Vol] 3.1 g/dL Low 3.4-5.0 [facility] Calcium [Mass/Vol] 9.2 mg/dL 8.5-10.1 [facility] Chloride [Moles/Vol] 107 mmol/L 98-107 [facility] CO2 [Moles/Vol] 28.2 mmol/L 21.0-32.0 [facility] Creatinine [Mass/Vol] 2.17 mg/dL High 0.55-1.02 [facility] GFR/1.73 sq M.predicted MDRD (S/P/Bld) [Vol rate/Area] 26 mL/min/{1.73_m2} Low >=[address] [facility] Glucose [Mass/Vol] 98 mg/dL 74-106 [facility] Potassium [Moles/Vol] 5.1 mmol/L 3.5-5.1 [facility] Sodium [Moles/Vol] 142 mmol/L 136-145 [facility] Urea nitrogen [Mass/Vol] 43.0 mg/dL High 7.0-18.[address] [facility] Urea nitrogen/Creatinine [Mass ratio] 19.8 mg/mg [facility] Laboratory - Urinalysison Protein (U) [Mass/Vol] 117.6 mg/dL High <=11.9 [facility] Leukocytes [#/volume] correc katy for nucleated erythrocytes in Blood by Automated counon 09-16-2023 WBC corrected for nucl RBC Auto (Bld) [#/Vol] 5.4 10 3/uL 4.0-11.[address] [facility] MCH Auto (RBC) [Entitic mass ]on 09-16-2023 MCH (RBC) [Entitic mass] 29.2 pg 26.7-34.[address] [facility] MCHC Auto (RBC) [Mass/Vol]on 09-16-2023 MCHC (RBC) [Mass/Vol] 29.3 g/dL Low 29.9-35.2 [facility] MCV Auto (RBC) [Entitic vol] on 09-16-2023 MCV (RBC) [Entitic vol] 99.6 fL High 81.0-99.[address] [facility] No Panel Informationon 09-15 Parathyroid Hormone (Intact) 75 pg/mL Abnormal 15-[address] [facility] Comment on above: Performed at: [facility] [employer] [address] [id number] Director: Deshaun Hunter PhD, Phone: [phone] Phosphorus Level 4.6 mg/dL 2.6-4.7 [facility] Urine Random Creatinine 38.12 mg/dL 20.00-300. [address] [facility] Platelet mean volume Auto (B ld) [Entitic vol]on 09-16-2023 Platelet mean volume (Bld) [Entitic vol] 10.3 fL 9.5-13.[address] [facility] Platelets Auto (Bld) [#/Vol] on 09-16-2023 Platelets (Bld) [#/Vol] 225 10 3/uL 150-[address] [facility] RBC Auto (Bld) [#/Vol]on RBC (Bld) [#/Vol] 2.57 10 6/uL Low 4.20-5.40 [facility] Serum or plasma anion gap de terminationon 09-16-2023 Anion gap [Moles/Vol] 11.9 mmol/L [facility] Urine protein/creatinine rat ioon 09-16-2023 Protein/Creatinine (U) [Ratio] 3.[address] [facility] Activated partial thrombopla stin time (aPTT) in platelet poor plasma by coagulation aOrdered By: Rin Sarmiento on 09-01-2023 aPTT Coag (PPP) [Time] 30.5 s 25.1-36.5 [facility] Comment on above: A hematocrit value g reater than 55% may lead to inaccurate results in coagulation testing. Patients having hematocrit values >55% require a special collection tube for coagulation studies. Please contact the laboratory at [phone] for redraw instructions. Albumin [Mass/volume] in Ser um or Plasma by Bromocresol green (BCG) dye binding methoOrdered By: Rin Sarmiento on 09-01-2023 Albumin BCG dye [Mass/Vol] 3.6 g/dL 3.5-5.[address] [facility] Automated erythrocytes count in urine sediment (number/area)Ordered By: Rin Sarmiento on 09-01-2023 RBC Auto (Urine sed) [#/Area] 50-100 [HPF] High 0-[address] [facility] Automated leukocytes count i n urine sediment (number/area)Ordered By: Rin Sarmiento on 09-01-2023 WBC Auto (Urine sed) [#/Area] 1-2 [HPF] 0-[address] [facility] Bilirubin Test strip Ql (U)O rdered By: Rin Sarmiento on 09-01-2023 Bilirubin Ql (U) Negative Negative [facility] CT guided needle placementon 09-01-2023 CT guided needle placement [facility] [address] CT Scan Report Signed Patient: Margie Martínez MR#: [id number] : 1940 Acct:[id number] Age/Sex: 83 / F ADM Date: 09/01/23 Loc: CT Room: Type: [facility] Attending Dr: Rin Sarmiento MD Copies to: Rin Sarmiento MD Ordering Provider: Rin Sarmiento MD Date of Service: 09/01/23 CT/CT guided biopsy: ANGELINA with nephrotic range proteinuria, hypoalbumine ([id number]) CT/CT guided needle placement: random kidney bx [...] Urias Jr., D.O.09/01/2023 1:30 PM Dictation Location: [id number]-08 Transcribed By: FERNANDO 09/01/23 1330 Dictated By: Kj Urias Jr, DO 09/01/23 1328 Signed By: 09/01/23 1330 Normal [facility] Calcium [Mass/volume] in Ser um or PlasmaOrdered By: Rin Sarmiento on 09-01-2023 Calcium [Mass/Vol] 8.9 mg/dL 8.6-10.3 [facility] Carbon dioxide, total [Moles /volume] in Serum or PlasmaOrdered By: Rin Sarmiento on 09-01-2023 CO2 [Moles/Vol] 30.5 mmol/L 21.0-31.0 [facility] Chloride [Moles/volume] in S adriana or PlasmaOrdered By: Rin Sarmiento on 09-01-2023 Chloride [Moles/Vol] 107 mmol/L 98-107 [facility] Color Auto (U)Ordered By: Domingo Sarmiento on 09-01-2023 Color (U) Yellow Yellow [facility] Creatinine [Mass/volume] in Serum or PlasmaOrdered By: Rin Sarmiento on 09-01-2023 Creatinine [Mass/Vol] 2.02 mg/dL High 0.60-1.20 [facility] Creatinine [Mass/volume] in UrineOrdered By: Rin Sarmiento on 09-01-2023 Creatinine (U) [Mass/Vol] 52.0 mg/dL [facility] Comment on above: No reference range e stablished Dipstick and Microscopicon 0 09-01-2023 Appearance (U) Cloudy Critically abnormal Clear [facility] Comment on above: Order Comment: Name Collection Type:: Clean-Voided Midstream Performed By: #### V [id number], BHANU, RENAL, [id number], ADDONUAPLUS, PROCRERAT, FLAKO, MG, PTH, PT, CBCNO, PTT, URMACRERAT, FE and TIBC #### [facility] [address] Bacteria,Urine None Seen Normal None Seen [facility] Comment on above: Order Comment: Name Collection Type:: Clean-Voided Midstream Performed By: #### V [id number], BHANU, RENAL, [id number], ADDONUAPLUS, PROCRERAT, FLAKO, MG, PTH, PT, CBCNO, PTT, URMACRERAT, FE and TIBC #### [address] Bilirubin,Urine Negative Normal Negative [facility] Comment on above: Order Comment: Name Collection Type:: Clean-Voided Midstream Performed By: #### V [id number], BHANU, RENAL, [id number], ADDONUAPLUS, PROCRERAT, FLAKO, MG, PTH, PT, CBCNO, PTT, URMACRERAT, FE and TIBC #### [address] Color (U) Yellow Normal Yellow [facility] Comment on above: Order Comment: Name Collection Type:: Clean-Voided Midstream Performed By: #### V [id number], BHANU, RENAL, [id number], ADDONUAPLUS, PROCRERAT, FLAKO, MG, PTH, PT, CBCNO, PTT, URMACRERAT, FE and TIBC #### [address] Glucose Ql (U) Normal Normal Normal [facility] Comment on above: Order Comment: Name Collection Type:: Clean-Voided Midstream Performed By: #### V [id number], BHANU, RENAL, [id number], ADDONUAPLUS, PROCRERAT, FLAKO, MG, PTH, PT, CBCNO, PTT, URMACRERAT, FE and TIBC #### [address] Hyaline Casts,Urine 0-8 Normal 0-8 [facility] Comment on above: Order Comment: Name Collection Type:: Clean-Voided Midstream Result Comment: PERF ORMED BY: [place] [address] PATHOLOGIST ELEVATED GUARD JEWELL ROWLEY M.D. Performed By: #### V [id number], BHANU, RENAL, [id number], ADDONUAPLUS, PROCRERAT, FLAKO, MG, PTH, PT, CBCNO, PTT, URMACRERAT, FE and TIBC #### [address] Ketones Ql (U) Negative Normal Negative [facility] Comment on above: Order Comment: Name Collection Type:: Clean-Voided Midstream Performed By: #### V [id number], BHANU, RENAL, [id number], ADDONUAPLUS, PROCRERAT, FLAKO, MG, PTH, PT, CBCNO, PTT, URMACRERAT, FE and TIBC #### [address] Leukocyte esterase Test strip Ql (U) Negative Normal Negative [facility] Comment on above: Order Comment: Name Collection Type:: Clean-Voided Midstream Performed By: #### V [id number], BHANU, RENAL, [id number], ADDONUAPLUS, PROCRERAT, FLAKO, MG, PTH, PT, CBCNO, PTT, URMACRERAT, FE and TIBC #### [address] Nitrite,Urine Negative Normal Negative [facility] Comment on above: Order Comment: Name Collection Type:: Clean-Voided Midstream Performed By: #### V [id number], BHANU, RENAL, [id number], ADDONUAPLUS, PROCRERAT, FLAKO, MG, PTH, PT, CBCNO, PTT, URMACRERAT, FE and TIBC #### [address] Occult Blood,Urine 1+ High Negative [facility] Comment on above: Order Comment: Name Collection Type:: Clean-Voided Midstream Result Comment: PERF ORMED BY: [place] [address] PATHOLOGIST ELEVATED GUARD JEWELL ROWLEY M.D. Performed By: #### V [id number], BHANU, RENAL, [id number], ADDONUAPLUS, PROCRERAT, FLAKO, MG, PTH, PT, CBCNO, PTT, URMACRERAT, FE and TIBC #### [address] pH (U) 7.0 [pH] Normal 5.0-9.0 [facility] Comment on above: Order Comment: Name Collection Type:: Clean-Voided Midstream Performed By: #### V [id number], BHANU, RENAL, [id number], ADDONUAPLUS, PROCRERAT, FLAKO, MG, PTH, PT, CBCNO, PTT, URMACRERAT, FE and TIBC #### [address] Protein (U) [Mass/Vol] 300 mg/dL High Negative [facility] Comment on above: Order Comment: Name Collection Type:: Clean-Voided Midstream Performed By: #### V [id number], BHANU, RENAL, [id number], ADDONUAPLUS, PROCRERAT, FLAKO, MG, PTH, PT, CBCNO, PTT, URMACRERAT, FE and TIBC #### [address] RBC,Urine 50-100 High 0-4 [facility] Comment on above: Order Comment: Name Collection Type:: Clean-Voided Midstream Performed By: #### V [id number], BHANU, RENAL, [id number], ADDONUAPLUS, PROCRERAT, FLAKO, MG, PTH, PT, CBCNO, PTT, URMACRERAT, FE and TIBC #### [address] Specificy [place],Urine 1.015 Normal 1.001-1.03 0 [facility] Comment on above: Order Comment: Name Collection Type:: Clean-Voided Midstream Performed By: #### V [id number], BHANU, RENAL, [id number], ADDONUAPLUS, PROCRERAT, FLAKO, MG, PTH, PT, CBCNO, PTT, URMACRERAT, FE and TIBC #### [address] Squamous Epithelial Cell,Urine 0-1 Normal 0-2 [facility] Comment on above: Order Comment: Name Collection Type:: Clean-Voided Midstream Performed By: #### V [id number], BHANU, RENAL, [id number], ADDONUAPLUS, PROCRERAT, FLAKO, MG, PTH, PT, CBCNO, PTT, URMACRERAT, FE and TIBC #### [address] Urobilinogen,Urine Normal Normal Normal [facility] Comment on above: Order Comment: Name Collection Type:: Clean-Voided Midstream Performed By: #### V [id number], BHANU, RENAL, [id number], ADDONUAPLUS, PROCRERAT, FLAKO, MG, PTH, PT, CBCNO, PTT, URMACRERAT, FE and TIBC #### [address] WBC,Urine 1-2 Normal 0-4 [facility] Comment on above: Order Comment: Name Collection Type:: Clean-Voided Midstream Performed By: #### V [id number], BHANU, RENAL, [id number], ADDONUAPLUS, PROCRERAT, FLAKO, MG, PTH, PT, CBCNO, PTT, URMACRERAT, FE and TIBC #### [address] Erythrocyte distribution wid th Auto (RBC) [Ratio]Ordered By: Rin Sarmiento on 09-01-2023 Erythrocyte distribution width (RBC) [Ratio] 14.7 % 11.9-15.[address] [facility] Ferritinon 09-01-2023 Ferritin [Mass/Vol] 16.5 ng/mL Normal 11.0-306.8 [facility] Comment on above: Performed By: #### V [id number], BHANU, RENAL, [id number], ADDONUAPLUS, PROCRERAT, FLAKO, MG, PTH, PT, CBCNO, PTT, URMACRERAT, FE and TIBC #### [address] Ferritin [Mass/volume] in Se rum or PlasmaOrdered By: Rin Sarmiento on 09-01-2023 Ferritin [Mass/Vol] 16.5 ng/mL 11.0-306.8 [facility] Folate [Mass/volume] in Seru m or PlasmaOrdered By: Rin Sarmiento on 09-01-2023 Folate [Mass/Vol] 16.5 ng/mL >5.9 [facility] Comment on above: Folate reference ran ge: >5.9 ng/mlThe WHO technical consultation on folate and vitamin [id number] has determined that folate concentrations lessthan 4 ng/ml are considered deficient. Glucose [Mass/volume] in Ser um or PlasmaOrdered By: Rin Sarmiento on 09-01-2023 Glucose [Mass/Vol] 121 mg/dL High 70-100 [facility] Comment on above: ADA recommended refe rence rangeRandom Glucose Reference Range is dependent on time and content of last meal. Glucose of more than 200 mg/dL in a nonstressed, ambulatory subject supports the diagnosis of Diabetes Mellitus. Hematocrit Auto (Bld) [Volum e fraction]Ordered By: Rin Sarmiento on 09-01-2023 Hematocrit (Bld) [Volume fraction] 25.0 % Low 34.0-46.[address] [facility] Hemoglobin [Mass/volume] in BloodOrdered By: Rin Sarmiento on 09-01-2023 Hemoglobin (Bld) [Mass/Vol] 8.0 g/dL Low 11.8-15.[address] [facility] Hemogram CBC Without Diffon 09-01-2023 Erythrocyte distribution width (RBC) [Ratio] 14.7 % Normal 11.9-15.3 [facility] Comment on above: Performed By: #### V [id number], BHANU, RENAL, [id number], ADDONUAPLUS, PROCRERAT, FLAKO, MG, PTH, PT, CBCNO, PTT, URMACRERAT, FE and TIBC #### [facility] [address] Hematocrit (Bld) [Volume fraction] 25.0 % Low 34.0-46.4 [facility] Comment on above: Performed By: #### V [id number], BHANU, RENAL, [id number], ADDONUAPLUS, PROCRERAT, FLAKO, MG, PTH, PT, CBCNO, PTT, URMACRERAT, FE and TIBC #### [address] Hemoglobin (Bld) [Mass/Vol] 8.0 g/dL Low 11.8-15.4 [facility] Comment on above: Performed By: #### V [id number], BHANU, RENAL, [id number], ADDONUAPLUS, PROCRERAT, FLAKO, MG, PTH, PT, CBCNO, PTT, URMACRERAT, FE and TIBC #### [address] MCH (RBC) [Entitic mass] 29.3 pg Normal 24.7-34.3 [facility] Comment on above: Performed By: #### V [id number], BHANU, RENAL, [id number], ADDONUAPLUS, PROCRERAT, FLAKO, MG, PTH, PT, CBCNO, PTT, URMACRERAT, FE and TIBC #### [address] MCV (RBC) [Entitic vol] 92.0 fL Normal 80-100 [facility] Comment on above: Performed By: #### V [id number], BHANU, RENAL, [id number], ADDONUAPLUS, PROCRERAT, FLAKO, MG, PTH, PT, CBCNO, PTT, URMACRERAT, FE and TIBC #### [address] Mean Corpuscular HGB Conc 31.9 g/dL Low 32.0-35.0 [facility] Comment on above: Performed By: #### V [id number], BHANU, RENAL, [id number], ADDONUAPLUS, PROCRERAT, FLAKO, MG, PTH, PT, CBCNO, PTT, URMACRERAT, FE and TIBC #### [address] Platelet mean volume (Bld) [Entitic vol] 8.1 fL Normal 6.3-10.7 [facility] Comment on above: Result Comment: PERF ORMED BY: [place] [address] PATHOLOGIST ELEVATED GUARD JEWELL ROWLEY M.D. Performed By: #### V [id number], BHANU, RENAL, [id number], ADDONUAPLUS, PROCRERAT, FLAKO, MG, PTH, PT, CBCNO, PTT, URMACRERAT, FE and TIBC #### [address] Platelets (Bld) [#/Vol] 214 10*3/uL Normal 150-450 [facility] Comment on above: Performed By: #### V [id number], BHANU, RENAL, [id number], ADDONUAPLUS, PROCRERAT, FLAKO, MG, PTH, PT, CBCNO, PTT, URMACRERAT, FE and TIBC #### [address] RBC (Bld) [#/Vol] 2.72 10*6/uL Low 3.60-5.00 [facility] Comment on above: Performed By: #### V [id number], BHANU, RENAL, [id number], ADDONUAPLUS, PROCRERAT, FLAKO, MG, PTH, PT, CBCNO, PTT, URMACRERAT, FE and TIBC #### [address] WBC (Bld) [#/Vol] 4.7 10*3/uL Normal 3.8-11.6 [facility] Comment on above: Performed By: #### V [id number], BHANU, RENAL, [id number], ADDONUAPLUS, PROCRERAT, FLAKO, MG, PTH, PT, CBCNO, PTT, URMACRERAT, FE and TIBC #### [address] INR in Platelet poor plasma by Coagulation assayOrdered By: Rin Sarmiento on 09-01-2023 INR Coag (PPP) [Relative time] 1.0 {INR} [facility] Comment on above: INR Therapeutic [...] on 09-01-2023 Iron [Mass/Vol] 122 ug/dL 50-[address] [facility] Iron and TIBC Profileon 08-17 % Iron Saturation 33.9 % Normal 20-[address] [facility] Comment on above: Performed By: #### V [id number], BHANU, RENAL, [id number], ADDONUAPLUS, PROCRERAT, FLAKO, MG, PTH, PT, CBCNO, PTT, URMACRERAT, FE and TIBC #### [facility] [address] Iron [Mass/Vol] 122 ug/dL Normal 50-212 [facility] Comment on above: Performed By: #### V [id number], BHANU, RENAL, [id number], ADDONUAPLUS, PROCRERAT, FLAKO, MG, PTH, PT, CBCNO, PTT, URMACRERAT, FE and TIBC #### [facility] [address] [place] [id number] [facility] Total Iron Binding Capacity 360 ug/dL Normal 255-450 [facility] Comment on above: Performed By: #### V [id number], BHANU, RENAL, [id number], ADDONUAPLUS, PROCRERAT, FLAKO, MG, PTH, PT, CBCNO, PTT, URMACRERAT, FE and TIBC #### [facility] [address] [place] [id number] [facility] Transferrin [Mass/Vol] 257 mg/dL Normal 203-362 [facility] Comment on above: Performed By: #### V [id number], BHANU, RENAL, [id number], ADDONUAPLUS, PROCRERAT, FLAKO, MG, PTH, PT, CBCNO, PTT, URMACRERAT, FE and TIBC #### [facility] [address] Iron binding capacity [Mass/ volume] in Serum or PlasmaOrdered By: Rin Sarmiento on 09-01-2023 Iron binding capacity [Mass/Vol] 360 ug/dL 255-[address] [facility] Iron saturation [Mass Fracti on] in Serum or PlasmaOrdered By: Rin Sarmiento on 09-01-2023 Iron saturation [Mass fraction] 33.9 % 20-[address] [facility] Ketones Auto test strip (U) [Mass/Vol]Ordered By: Rin Sarmiento on 09-01-2023 Ketones (U) [Mass/Vol] Negative Negative Fi [facility] N[place]un 09-01-2023 L Specimen: Received: 09/01/23 Status: MAIA Arellanoq Num: [id number] Spec Type: Surgical Subm Dr: Kj Urias Jr, DO Tissues: A Gross Only ([facility]) Procedures: Level 1 Gross Age/ Patient Sex Location Account Attending Physician Margie Martínez 83/F CT [id number] Rin Sarmiento MD SPEC NUM: [id number] RECD: 09/01/23 STATUS: MAIA KELSI NUM: [id number] DEMAR: 09/01/[address]: Kj Urias Jr, DO ENTERED: 09/01/[address] [facility] DR: SPEC TYPE: Surgical DEPT: S ORDERED: Level 1 Gross ORDERED: Level 1 Gross Supplemental Report Addendum 1 Entered: 09/03/23 Supplemental for findings of Consultation Report from [facility]: DIAGNOSIS: -Fibrillary Glomerulopathy -Arterionephrosclerosis Note: -Please also see entire report on file for detailed description Addendum Signed (signature on file) Chris Lin MD 09/03/23932 Specimen: [id number] Received: 09/01/23 Status: MAIA Cohen Num: [id number] Spec Type: Surgical Subm Dr: Kj Urias Jr, Tissues: A Gross Only (RANDOM KIDNEY BX) Procedures: Level 1 Gross Patient: Margie Martínez [id number] (Continued) Specimen: Received: 09/01/23 (Continued) Signed (signature on file) Chris Lin MD 09/03/23 0929 Specimen: [id number] Received: 09/01/23 Status: MAIA Cohen Num: [id number] Spec Type: Surgical Subm Dr: Kj Urias Jr, DO Tissues: A Gross Only (RANDOM KIDNEY BX) Procedures: Level 1 Gross Patient: Margie Martínez [id number] (Continued) Specimen: [id number] Received: 09/01/23 (Continued) Pathological Diagnosis Right kidney random core biopsy: -3 feldman-pink needle cores to be placed in special fixation solutions and to be forwarded to [facility] for final consultation interpretation. Gross only examination Gross Description In formalin labeled right kidney tissue are three feldman-pink needle cores ranging in size from 1.4 cm to 1.9 cm long x 0.1 cm average diameter. Submitted entirely in Lewis's solution and in 10% neutral buffered formalin. RG/CYC Clinical history: ANGELINA, proteinuria, hypoalbuminemia CPT Codes 03262 Specimen: [id number] Received: 09/01/23 Status: NIKKIChe Cohen Num: [id number] Spec Type: Surgical Subm Dr: Kj Urias Jr, Tissues: A Gross Only (RANDOM KIDNEY BX) Procedures: Level 1 Gross Patient: Margie Martínez [id number] (Continued) Signed (signature on file) Chris Lin MD 09/03/23 4627 Normal [facility] Laboratory - UrinalysisOrder ed By: Rin Sarmiento on 09-01-2023 Hyaline casts LM Ql (Urine sed) 0-8 [LPF] 0-[address] [facility] Leukocytes [#/volume] correc katy for nucleated erythrocytes in Blood by Automated counOrdered By: Rin Sarmiento on 09-01-2023 WBC corrected for nucl RBC Auto (Bld) [#/Vol] 4.7 10*3/uL 3.8-11.[address] [facility] MCH Auto (RBC) [Entitic mass ]Ordered By: Rin Sarmiento on 09-01-2023 MCH (RBC) [Entitic mass] 29.3 pg 24.7-34.[address] [facility] MCHC Auto (RBC) [Mass/Vol]Or dered By: Rin Sarmiento on 09-01-2023 MCHC (RBC) [Mass/Vol] 31.9 g/dL Low 32.0-35.0 [facility] MCV Auto (RBC) [Entitic vol] Ordered By: Rin Sarmiento on 09-01-2023 MCV (RBC) [Entitic vol] 92.0 fL 80-[address] [facility] Magnesiumon 09-01-2023 Magnesium [Mass/Vol] 1.9 mg/dL Normal 1.9-2.7 [facility] Comment on above: Performed By: #### V [id number], BHANU, RENAL, [id number], ADDONUAPLUS, PROCRERAT, FLAKO, MG, PTH, PT, CBCNO, PTT, URMACRERAT, FE and TIBC #### [facility] [address] Magnesium [Mass/volume] in S adriana or PlasmaOrdered By: Rin Sarmiento on 09-01-2023 Magnesium [Mass/Vol] 1.9 mg/dL 1.9-2.7 [facility] MicroAlb Creat Ratio,Uon Albumin DL <= 20 mg/L (U) [Mass/Vol] mg/dL High 0.0-1.8 [facility] Comment on above: Performed By: #### V [id number], BHANU, RENAL, [id number], ADDONUAPLUS, PROCRERAT, FLAKO, MG, PTH, PT, CBCNO, PTT, URMACRERAT, FE and TIBC #### [facility] [address] [place] [id number] [facility] Creatinine, Urine (Random) 52.0 mg/dL Normal [facility] Comment on above: Result Comment: No r eference range established Performed By: #### V [id number], BHANU, RENAL, [id number], ADDONUAPLUS, PROCRERAT, FLAKO, MG, PTH, PT, CBCNO, PTT, URMACRERAT, FE and TIBC #### [facility] [address] [place] [id number] [facility] Microalbumin/Creatinin e Ratio Not performed Normal 0.0-30.0 [facility] Comment on above: Performed By: #### V [id number], BHANU, RENAL, [id number], ADDONUAPLUS, PROCRERAT, FLAKO, MG, PTH, PT, CBCNO, PTT, URMACRERAT, FE and TIBC #### [facility] [address] Microalbumin [Mass/volume] i n UrineOrdered By: Rin Sarmiento on 09-01-2023 Albumin DL <= 20 mg/L (U) [Mass/Vol] mg/dL High 0.0-1.[address] [facility] Nitrite Test strip Ql (U)Ord ered By: Rin Sarmiento on 09-01-2023 Nitrite Ql (U) Negative Negative [facility] No Panel InformationOrdered By: Rin Sarmiento on 09-01-2023 Estimated GFR (CKD-EPI) 24.043 mL/Min [facility] Creatinine Clearance (Chem 21.[address] [facility] Parathyrin.intact [Mass/volu me] in Serum or PlasmaOrdered By: Rin Sarmiento on 09-01-2023 Parathyrin.intact [Mass/Vol] 188.2 pg/mL High [facility] Parathyroid Hormone Intacton 09-01-2023 Parathyroid Hormone Intact 188.2 pg/mL High [facility] Comment on above: Result Comment: PERF ORMED BY: [place] [address] PATHOLOGIST ELEVATED GUARD JEWELL ROWLEY M.D. Performed By: #### V [id number], BHANU, RENAL, [id number], ADDONUAPLUS, PROCRERAT, FLAKO, MG, PTH, PT, CBCNO, PTT, URMACRERAT, FE and TIBC #### [facility] [address] [place] [address] [place] Partial Thromboplastin Timeo n 09-01-2023 aPTT Coag (Bld) [Time] 30.5 s Normal 25.1-36.5 [facility] Comment on above: Result Comment: A he matocrit value greater than 55% may lead to inaccurate results in coagulation testing. Patients having hematocrit values >55% require a special collection tube for coagulation studies. Please contact the laboratory at [phone] for redraw instructions. PERFORMED BY: [place] [address] PATHOLOGIST ELEVATED GUARD JEWELL ROWLEY M.D. Performed By: #### V [id number], BHANU, RENAL, [id number], ADDONUAPLUS, PROCRERAT, FLAKO, MG, PTH, PT, CBCNO, PTT, URMACRERAT, FE and TIBC #### [facility] [address] [place] [address] [facility] Phosphate [Mass/volume] in S adriana or PlasmaOrdered By: Rin Sarmiento on 09-01-2023 Phosphate [Mass/Vol] 4.2 mg/dL 2.5-4.5 [facility] Platelet mean volume Auto (B ld) [Entitic vol]Ordered By: Rin Sarmiento on 09-01-2023 Platelet mean volume (Bld) [Entitic vol] 8.1 fL 6.3-10.[address] [facility] Platelets Auto (Bld) [#/Vol] Ordered By: Rin Sarmiento on 09-01-2023 Platelets (Bld) [#/Vol] 214 10*3/uL 150-[address] [facility] Potassium [Moles/volume] in Serum or PlasmaOrdered By: Rin Sarmiento on 09-01-2023 Potassium [Moles/Vol] 4.7 mmol/L 3.5-5.1 [facility] Protein Auto test strip (U) [Mass/Vol]Ordered By: Rin Sarmiento on 09-01-2023 Protein (U) [Mass/Vol] 300 mg/dL High Negative Fi [facility] Protein Creat Ratio Ur Rando mon 09-01-2023 Protein (U) [Mass/Vol] 199 mg/dL High 0-9 [facility] Comment on above: Performed By: #### V [id number], BHANU, RENAL, [id number], ADDONUAPLUS, PROCRERAT, FLAKO, MG, PTH, PT, CBCNO, PTT, URMACRERAT, FE and TIBC #### [facility] [address] Urine Protein/Creatinine Ratio 3827 mg/g{Cre} High 0-200 [facility] Comment on above: Performed By: #### V [id number], BHANU, RENAL, [id number], ADDONUAPLUS, PROCRERAT, FLAKO, MG, PTH, PT, CBCNO, PTT, URMACRERAT, FE and TIBC #### [facility] [address] Protein [Mass/volume] in Uri neOrdered By: Rin Sarmiento on 09-01-2023 Protein (U) [Mass/Vol] 199 mg/dL High 0-9 [facility] Prothrombin Time INRon 08-31 INR Coag (PPP) [Relative time] 1.0 {INR} Normal [facility] Comment on above: [...] 3 - 4.5 Performed By: #### V [id number], BHANU, RENAL, [id number], ADDONUAPLUS, PROCRERAT, FLAKO, MG, PTH, PT, CBCNO, PTT, URMACRERAT, FE and TIBC #### [facility] [address] PT Coag (PPP) [Time] 11.4 s Normal 9.0-12.9 [facility] Comment on above: Result Comment: A he matocrit value greater than 55% may lead to inaccurate results in coagulation testing. Patients having hematocrit values >55% require a special collection tube for coagulation studies. Please contact the laboratory at [phone] for redraw instructions. Performed By: #### V [id number], BHANU, RENAL, [id number], ADDONUAPLUS, PROCRERAT, FLAKO, MG, PTH, PT, CBCNO, PTT, URMACRERAT, FE and TIBC #### [facility] [address] [place] [id number] [facility] Prothrombin time (PT)Ordered By: Rin Sarmiento on 09-01-2023 PT Coag (PPP) [Time] 11.4 s 9.0-12.9 [facility] Comment on above: A hematocrit value g reater than 55% may lead to inaccurate results in coagulation testing. Patients having hematocrit values >55% require a special collection tube for coagulation studies. Please contact the laboratory at [phone] for redraw instructions. RBC Auto (Bld) [#/Vol]Ordere d By: Rin Sarmiento on 09-01-2023 RBC (Bld) [#/Vol] 2.72 10*6/uL Low 3.60-5.00 [facility] Renal Function Panelon 08-31 Albumin [Mass/Vol] 3.6 g/dL Normal 3.5-5.7 [facility] Comment on above: Performed By: #### V [id number], BHANU, RENAL, [id number], ADDONUAPLUS, PROCRERAT, FLAKO, MG, PTH, PT, CBCNO, PTT, URMACRERAT, FE and TIBC #### [facility] [address] [place] [id number] [facility] Anion gap [Moles/Vol] 9.2 mmol/L Normal 6.0-15.0 [facility] Comment on above: Performed By: #### V [id number], BHANU, RENAL, [id number], ADDONUAPLUS, PROCRERAT, FLAKO, MG, PTH, PT, CBCNO, PTT, URMACRERAT, FE and TIBC #### [address] Calcium [Mass/Vol] 8.9 mg/dL Normal 8.6-10.3 [facility] Comment on above: Performed By: #### V [id number], BHANU, RENAL, [id number], ADDONUAPLUS, PROCRERAT, FLAKO, MG, PTH, PT, CBCNO, PTT, URMACRERAT, FE and TIBC #### [address] Chloride [Moles/Vol] 107 mmol/L Normal 98-107 [facility] Comment on above: Performed By: #### V [id number], BHANU, RENAL, [id number], ADDONUAPLUS, PROCRERAT, FLAKO, MG, PTH, PT, CBCNO, PTT, URMACRERAT, FE and TIBC #### [address] CO2 [Moles/Vol] 30.5 mmol/L Normal 21.0-31.0 [facility] Comment on above: Performed By: #### V [id number], BHANU, RENAL, [id number], ADDONUAPLUS, PROCRERAT, FLAKO, MG, PTH, PT, CBCNO, PTT, URMACRERAT, FE and TIBC #### [address] Creatinine [Mass/Vol] 2.02 mg/dL High 0.60-1.20 [facility] Comment on above: Performed By: #### V [id number], BHANU, RENAL, [id number], ADDONUAPLUS, PROCRERAT, FLAKO, MG, PTH, PT, CBCNO, PTT, URMACRERAT, FE and TIBC #### [address] Creatinine Clr Calc Pharmacy 21.55 Normal [facility] Comment on above: Performed By: #### V [id number], BHANU, RENAL, [id number], ADDONUAPLUS, PROCRERAT, FLAKO, MG, PTH, PT, CBCNO, PTT, URMACRERAT, FE and TIBC #### [facility] [address] [place] [address] [place] GFR/1.73 sq M.predicted MDRD (S/P/Bld) [Vol rate/Area] 24.043 mL/min/{1.73_m2} Normal [facility] Comment on above: Performed By: #### V [id number], BHANU, RENAL, [id number], ADDONUAPLUS, PROCRERAT, FLAKO, MG, PTH, PT, CBCNO, PTT, URMACRERAT, FE and TIBC #### [facility] [address] Glucose [Mass/Vol] 121 mg/dL High 70-100 [facility] Comment on above: Result Comment: [facility] Glucose Reference Range is dependent on time and content of last meal. Glucose of more than 200 mg/dL in a nonstressed, ambulatory subject supports the diagnosis of Diabetes Mellitus. ADA recommended reference range Performed By: #### V [id number], BHANU, RENAL, [id number], ADDONUAPLUS, PROCRERAT, FLAKO, MG, PTH, PT, CBCNO, PTT, URMACRERAT, FE and TIBC #### [facility] [address] [place] [address] [place] Phosphate [Mass/Vol] 4.2 mg/dL Normal 2.5-4.5 [facility] Comment on above: Performed By: #### V [id number], BHANU, RENAL, [id number], ADDONUAPLUS, PROCRERAT, FLAKO, MG, PTH, PT, CBCNO, PTT, URMACRERAT, FE and TIBC #### [facility] [address] [place] [id number] [facility] Potassium [Moles/Vol] 4.7 mmol/L Normal 3.5-5.1 [facility] Comment on above: Performed By: #### V [id number], BHANU, RENAL, [id number], ADDONUAPLUS, PROCRERAT, FLAKO, MG, PTH, PT, CBCNO, PTT, URMACRERAT, FE and TIBC #### [facility] [address] Sodium [Moles/Vol] 142 mmol/L Normal 136-145 [facility] Comment on above: Performed By: #### V [id number], BHANU, RENAL, [id number], ADDONUAPLUS, PROCRERAT, FLAKO, MG, PTH, PT, CBCNO, PTT, URMACRERAT, FE and TIBC #### [facility] [address] Urea nitrogen [Mass/Vol] 32 mg/dL High 7-25 [facility] Comment on above: Performed By: #### V [id number], BHANU, RENAL, [id number], ADDONUAPLUS, PROCRERAT, FLAKO, MG, PTH, PT, CBCNO, PTT, URMACRERAT, FE and TIBC #### [facility] [address] Serum or plasma anion gap de terminationOrdered By: Rin Sarmiento on 09-01-2023 Anion gap [Moles/Vol] 9.2 mmol/L 6.0-15.0 [facility] Sodium [Moles/volume] in Ser um or PlasmaOrdered By: Rin Sarmiento on 09-01-2023 Sodium [Moles/Vol] 142 mmol/L 136-145 [facility] Sodium [Moles/volume] in Uri neOrdered By: Rin Sarmiento on 09-01-2023 Sodium (U) [Moles/Vol] 137 mmol/L [facility] Comment on above: No reference range e stablished Sodium, Urine (Random)on Sodium (U) [Moles/Vol] 137 mmol/L Normal [facility] Comment on above: Result Comment: No r eference range established PERFORMED BY: [place] [address] PATHOLOGIST ELEVATED GUARD JEWELL ROWLEY M.D. Performed By: #### V [id number], BHANU, RENAL, [id number], ADDONUAPLUS, PROCRERAT, FLAKO, MG, PTH, PT, CBCNO, PTT, URMACRERAT, FE and TIBC #### [facility] [address] Specific gravity Auto test s trip (U) [Rel density]Ordered By: Rin Sarmiento on 09-01-2023 Specific gravity (U) [Rel density] 1.015 1.001-1.[address] [facility] Squamous epithelial cells de tection in urine sediment by light microscopyOrdered By: Rin Sarmiento on 09-01-2023 Epithelial cells.squamous LM Ql (Urine sed) 0-1 [HPF] 0-[address] [facility] Transferrin [Mass/volume] in Serum or PlasmaOrdered By: iRn Sarmiento on 09-01-2023 Transferrin [Mass/Vol] 257 mg/dL 203-362 [facility] Urea nitrogen [Mass/volume] in Serum or PlasmaOrdered By: Rin Sarmiento on 09-01-2023 Urea nitrogen [Mass/Vol] 32 mg/dL High 7-[address] [facility] Urine bacteria detection by automated methodOrdered By: Rin Sarmiento on 09-01-2023 Bacteria Auto Ql (U) None seen None Seen [facility] Urine clarity by refractomet ry automatedOrdered By: Rin Sarmiento 09-01-2023 Clarity Refractometry automated (U) Cloudy Abnormal Clear [facility] Urine glucose measurement by automated test strip (mass/volume)Ordered By: Rin Sarmiento on 09-01-2023 Glucose Auto test strip (U) [Mass/Vol] Normal mg/dL Normal [facility] Urine hemoglobin detection b y automated test stripOrdered By: Rin Sarmiento on 09-01-2023 Hemoglobin Auto test strip Ql (U) 1+ High Negative [facility] Urine leukocyte esterase det ection by automated test stripOrdered By: Rin Sarmiento on 09-01-2023 Leukocyte esterase Auto test strip Ql (U) Negative Negative [facility] Urine microalbumin/creatinin e mass ratioOrdered By: Rin Sarmiento on 09-01-2023 Albumin/Creatinine DL <= 20 mg/L (U) [Mass ratio] TNP [facility] Comment on above: Test not performed Urine protein/creatinine rat ioOrdered By: Rin Sarmiento on 09-01-2023 Protein/Creatinine (U) [Ratio] 3827 mg/g{Cre} High 0-[address] [facility] Urobilinogen Auto test strip (U) [Mass/Vol]Ordered By: Rin Sarmiento on 09-01-2023 Urobilinogen (U) [Mass/Vol] Normal mg/dL Normal [facility] Vit. B12/Folate Profileon Cobalamin (Vitamin B12) [Mass/Vol] 862 pg/mL Normal 180-914 [facility] Comment on above: Performed By: #### V [id number], BHANU, RENAL, [id number], ADDONUAPLUS, PROCRERAT, FLAKO, MG, PTH, PT, CBCNO, PTT, URMACRERAT, FE and TIBC #### [facility] [address] Folate 16.5 ng/mL Normal >5.9 [facility] Comment on above: Result Comment: Arlen te reference range: >5.9 ng/ml The WHO technical consultation on folate and vitamin b12 deficiencies has determined that folate concentrations less than 4 ng/ml are considered deficient. Performed By: #### V [id number], BHANU, RENAL, [id number], ADDONUAPLUS, PROCRERAT, FLAKO, MG, PTH, PT, CBCNO, PTT, URMACRERAT, FE and TIBC #### [facility] [address] [place] [id number] [facility] Vitamin B12 ser/plasOrdered By: Rin Sarmiento on 09-01-2023 Cobalamin (Vitamin B12) [Mass/Vol] 862 pg/mL 180-[address] [facility] Vitamin D 25 Hydroxy Totalon 09-01-2023 Vitamin D 25 Hydroxy Total 18.3 ng/mL Low 30-100 [facility] Comment on above: Result Comment: YULY MIN D STATUS 25(OH)VITAMIN D RANGE (ng/mL) Deficient <20 Insufficient 20 to <30 Sufficient 30 to 100 Reference: Rell Grijalva, Xochitl WILLIAMSON, et al. Evaluation,treatment, and prevention of vitamin D deficiency; an Endocrine Society clinical practice guideline. JCEM. 2010; 96(7):1911-30. PERFORMED BY: [facility] [address] [place] [address] PATHOLOGIST ELEVATED GUARD JEWELL ROWLEY M.D. Performed By: #### V [id number], BHANU, RENAL, [id number], ADDONUAPLUS, PROCRERAT, FLAKO, MG, PTH, PT, CBCNO, PTT, URMACRERAT, FE and TIBC #### [facility] [address] Vitamin D+Metabolites [Mass/ volume] in Serum or PlasmaOrdered By: Rin Sarmiento on 09-01-2023 Vitamin D+Metabolites [Mass/Vol] 18.3 ng/mL Low 30-[address] [facility] Comment on above: VITAMIN D STATUS 25( [place])VITAMIN D RANGE (ng/mL) Deficient <20 Insufficient 20 to <30Sufficient 30 to 100Reference: Rell Grijalva, Xochitl WILLIAMSON, et al. Evaluation,treatment, and prevention of vitamin D deficiency; an Endocrine Society clinical practice guideline. JCEM. 2010; 96(7):1911-30. pH Auto test strip (U)Ordere d By: Rin Sarmiento on 09-01-2023 pH (U) 7.0 [pH] 5.0-9.[address] [facility] POCT Protime / INRon 024 INR Coag (PPP) [Relative time] 2.2 {INR} Abnormal 0.8 - 1.2 [facility] Interpretation and review of laboratory results Abnormal [facility] HbA1c HPLC (Bld) [Mass fract ion]on 08-20-2023 HbA1c (Bld) [Mass fraction] 5.7 % [facility] No Panel Informationon 08-19 Bedside Glucose [address] [facility] No Panel Informationon 08-04 Miscellaneous Test COMMENT . [facility] Comment on above: Test Ordered: [id number] Prot Electro+Interp, 24-Hr UrProtein,Total,Urine 132.1 mg/dL CB Reference Range: Not Estab.Prot,24hr calculated 2741 [H ] mg/24 hr CB Reference Range: 30-150Albumin, U 66.3 % CB Reference Range: .Xvjhe-9-Hkyysvpj, U 7.5 % CB Reference Range: .Xaeer-8-Ndwkgvir, U 10.6 % CB Reference Range: .Beta Globulin, U 11.9 % CB Reference Range: .Gamma Globulin, U 3.7 % CB Reference Range: .M-Tr, % Note: % CB Not Observed Reference Range: Not ObservedM-Tr, mg/24 hr FOLDER GLUER OPERATOR NOLAB Reference Range: .Please note: Comment CB Reference Range: .Protein electrophoresis scan will follow via computer,mail, or wig comber delivery.P E Interpretation, U Comment CB Reference Range: .The urine protein electrophoresis pattern reflects thepresence of specific higher molecular mass proteins withmoderate proteinuria. This pattern may be characterized asrepresenting a severe selective glomerular nephropathyindicating increased glomerular permeability. Monoclonalprotein is not apparent.Performed at: - [facility] [id number] Director: Deshaun Hunter PhD, Phone: [phone] Activated partial thrombopla stin time (aPTT) in platelet poor plasma by coagulation aon 08-01-2023 aPTT Coag (PPP) [Time] 38.6 s 22.3-36.2 [facility] Atypical perinuclear antineu trophil cytoplasmic antibodies measurementon 08-01-2023 Neutrophil cytoplasmic Ab.perinuclear.atypica l IF (S) [Titer] <1:20 titer Neg:<1:[address] [facility] Comment on above: The atypical pANCA p attern has been observed in asignificant percentage of patients with ulcerative colitis,primary sclerosing cholangitis and autoimmune hepatitis. Automated urine specific gra vity by refractometryon 08-01-2023 Specific gravity Refractometry automated (U) [Rel density] 1.020 1.005-1.[address] [facility] Bilirubin Auto test strip (U ) [Mass/Vol]on 08-01-2023 Bilirubin (U) [Mass/Vol] Negative NEGATIVE [facility] Cefuroxime free [Mass/Vol]on 08-01-2023 Anti-Nuclear Antibody Profile Negative Negative [facility] Comment on above: Performed at: [facility] [address] [id number] Director: Deshaun Hunter PhD, Phone: [phone] Performed at: [facility] [address] [id number] Director: Deshaun Hunter PhD, Phone: [phone] Color Auto (U)on 08-01-2023 Color (U) LT. YELLOW YELLOW [facility] Erythrocyte distribution wid th Auto (RBC) [Ratio]on 08-01-2023 Erythrocyte distribution width (RBC) [Ratio] 13.1 % 11.0-15.[address] [facility] Estimated glomerular filtrat ion rate (GFR) non- Americanon 08-01-2023 GFR/1.73 sq M.predicted among non-blacks MDRD (S/P/Bld) [Vol rate/Area] 27 mL/min/{1.73_m2} >=[address] [facility] Globulin Calc (S) [Mass/Vol] on 08-01-2023 Globulin (S) [Mass/Vol] 3.3 g/dL [facility] Glomerular basement membrane Ab [Units/volume] in Serum by Immunoassayon 08-01-2023 Glomerular basement membrane Ab IA Qn (S) <0.2 units 0.0-0.[address] [facility] Comment on above: Performed at: [facility] [address] [id number] Director: Jhon Roberts MD, Phone: [phone] at: [facility] [address] [id number] Director: Deshaun Hunter PhD, Phone: [phone] HBV surface Ag IA Qlon 07-31 Hepatitis B Surface Antigen Negative Negative [facility] Comment on above: Performed at: [facility] [address] [id number] Director: Deshaun Hunter PhD, Phone: [phone] Performed at: [facility] [address] [id number] Director: Deshaun Hunter PhD, Phone: [phone] Hematocrit Auto (Bld) [Volum e fraction]on 08-01-2023 Hematocrit (Bld) [Volume fraction] 27.0 % 36.0-48.[address] [facility] Hemoglobin [Mass/volume] in Bloodon 08-01-2023 Hemoglobin (Bld) [Mass/Vol] 7.8 g/dL 12.0-16.[address] [facility] INR in Platelet poor plasma by Coagulation assayon 08-01-2023 INR Coag (PPP) [Relative time] 2.43 {INR} [facility] Comment on above: DESIRED INR:2.0-3.0 CONDITIONS NOT LISTED BELOW2.5-3.5 FOR PROSTHETIC HEART VALVE REPLACEMENT2.5-3.5 RECURRENT THROMBOSIS Immunofixation for Urineon 0 08-01-2023 Interpretation Immunofixation (U) [Interp] Comment . [facility] Comment on above: No monoclonality det ected.Performed at: [facility] - [facility] [address] [id number] Director: Deshaun Hunter PhD, Phone: [phone] Iron binding capacity [Mass/ volume] in Serum or Plasmaon 08-01-2023 Iron binding capacity [Mass/Vol] 270.0 ug/dL 250.0-450. [address] [facility] Iron saturation [Mass Fracti on] in Serum or Plasmaon 08-01-2023 Iron saturation [Mass fraction] 14.8 % [facility] Ketones Auto test strip (U) [Mass/Vol]on 08-01-2023 Ketones (U) [Mass/Vol] Negative NEGATIVE Fi [facility] Laboratory - Chemistry and C hemistry - challengeon 08-01-2023 Albumin [Mass/Vol] 2.7 g/dL 3.4-5.0 [facility] ALP [Catalytic activity/Vol] 50 U/L 46-[address] [facility] ALT [Catalytic activity/Vol] 18 U/L 14-[address] [facility] AST [Catalytic activity/Vol] 12 U/L 15-[address] [facility] Bilirubin [Mass/Vol] 0.2 mg/dL 0.2-1.0 [facility] Calcium [Mass/Vol] 8.8 mg/dL 8.5-10.1 [facility] Chloride [Moles/Vol] 105 mmol/L 98-107 [facility] CO2 [Moles/Vol] 32.1 mmol/L 21.0-32.0 [facility] Cobalamin (Vitamin B12) [Mass/Vol] 603.0 pg/mL 193.0-986. [address] [facility] Creatinine [Mass/Vol] 1.80 mg/dL 0.55-1.02 [facility] Ferritin [Mass/Vol] 32.0 ng/mL 8.0-252.0 [facility] GFR/1.73 sq M.predicted MDRD (S/P/Bld) [Vol rate/Area] 33 mL/min/{1.73_m2} >=[address] [facility] Glucose [Mass/Vol] 112 mg/dL 74-106 [facility] Iron [Mass/Vol] 40.0 ug/dL 50.0-170.[address] [facility] Magnesium [Mass/Vol] 1.9 mg/dL 1.8-2.4 [facility] Potassium [Moles/Vol] 4.3 mmol/L 3.5-5.1 [facility] Protein [Mass/Vol] 6.0 g/dL 6.4-8.2 [facility] Sodium [Moles/Vol] 145 mmol/L 136-145 [facility] Urea nitrogen [Mass/Vol] 33.0 mg/dL 7.0-18.[address] [facility] Urea nitrogen/Creatinine [Mass ratio] 18.3 mg/mg [facility] Laboratory - Urinalysison Protein (U) [Mass/Vol] 181.1 mg/dL <=11.9 [facility] Leukocytes [#/volume] correc katy for nucleated erythrocytes in Blood by Automated counon 08-01-2023 WBC corrected for nucl RBC Auto (Bld) [#/Vol] 6.4 10 3/uL 4.0-11.[address] [facility] MCH Auto (RBC) [Entitic mass ]on 08-01-2023 MCH (RBC) [Entitic mass] 29.2 pg 26.7-34.[address] [facility] MCHC Auto (RBC) [Mass/Vol]on 08-01-2023 MCHC (RBC) [Mass/Vol] 28.9 g/dL 29.9-35.2 [facility] MCV Auto (RBC) [Entitic vol] on 08-01-2023 MCV (RBC) [Entitic vol] 101.1 fL 81.0-99.[address] [facility] Myeloperoxidase Ab [Units/vo lume] in Serum by Immunoassayon 08-01-2023 Myeloperoxidase Ab IA Qn (S) <0.2 units 0.0-0.[address] [facility] No Panel Informationon 07-31 25-Hydroxy Vitamin D Total 16.6 ng/mL [facility] Comment on above: <20 ng/mL Vit D defi cient20-<30 ng/mL Vit D [id number] ng/mL Vit D sufficient>100 ng/mL Potential Toxicity Folate 13.00 ng/mL 8.60-58.[address] [facility] Miscellaneous Test COMMENT . [facility] Comment on above: Test Ordered: [id number] Cryoglobulin, Ql, Serum, RflxCryoglobulin, Ql, Serum, Rflx Comment CB Reference Range: None detectedNone Detected at 72 hoursThis test was developed and its performance characteristicsdetermined by [employer]. It has not been cleared orapproved by the Food and Drug Administration.Performed at: - [facility] [address] [id number] Director: Deshaun Hunter PhD, Phone: [phone] Parathyroid Hormone (Intact) 60 pg/mL [facility] Comment on above: Performed at: - [facility] [address] [id number] Director: Deshaun Hunter PhD, Phone: [phone] Perinuclear ANCA (p-ANCA) Antibody <1:20 titer Neg:<1:[address] [facility] Comment on above: The presence of posi tive fluorescence exhibiting P-ANCA orC-ANCA patterns alone is not specific for the diagnosis ofWegener's Granulomatosis (WG) or microscopic polyangiitis.Decisions about treatment should not be based solely onANCA IFA results. The [employer] ANCA [employer] Consensusrecommends follow up testing of positive sera with both WA-3 and MPO-ANCA enzyme immunoassays. As many as 5% serumsamples are positive only by EIA. Ref. AM J Clin Ebyidm3010;111:507-513. Phosphorus Level 3.8 mg/dL 2.6-4.7 [facility] Urine Random Creatinine 27.68 mg/dL 20.00-300. [address] [facility] Platelet mean volume Auto (B ld) [Entitic vol]on 08-01-2023 Platelet mean volume (Bld) [Entitic vol] 10.5 fL 9.5-13.[address] [facility] Platelets Auto (Bld) [#/Vol] on 08-01-2023 Platelets (Bld) [#/Vol] 227 10 3/uL 150-[address] [facility] Protein Auto test strip (U) [Mass/Vol]on 08-01-2023 Protein (U) [Mass/Vol] 100 mg/dL NEG/TRACE [facility] Proteinase 3 Ab [Units/volum e] in Serum by Immunoassayon 08-01-2023 Proteinase 3 Ab IA Qn (S) <0.2 units 0.0-0.[address] [facility] Prothrombin time (PT)on 07-17 PT Coag (PPP) [Time] 24.5 s 9.0-11.6 [facility] RBC Auto (Bld) [#/Vol]on RBC (Bld) [#/Vol] 2.67 10 6/uL 4.20-5.40 [facility] Serum classic neutrophil cyt oplasmic antibody titer by immunofluorescenceon 08-01-2023 Neutrophil cytoplasmic Ab.classic IF (S) [Titer] <1:20 titer Neg:<1:[address] [facility] Serum or plasma albumin/glob ulin mass ratioon 08-01-2023 Albumin/Globulin [Mass ratio] 0.8 {ratio} [facility] Serum or plasma anion gap de terminationon 08-01-2023 Anion gap [Moles/Vol] 12.2 mmol/L [facility] Serum or plasma complement C 3 measurement (mass/volume)on 08-01-2023 Complement C3 [Mass/Vol] 140 mg/dL 82-[address] [facility] Serum or plasma complement C 4 measurement (mass/volume)on 08-01-2023 Complement C4 [Mass/Vol] 30 mg/dL 12-[address] [facility] Comment on above: Performed at: [facility] [employer] [address] [id number] Director: Deshaun Hunter PhD, Phone: [phone] Specific gravity Auto test s trip (U) [Rel density]on 08-01-2023 Specific gravity (U) [Rel density] CLEAR CLEAR [facility] Urine glucose measurement by test strip (mass/volume)on 08-01-2023 Glucose Test strip (U) [Mass/Vol] Negative NEGATIVE [facility] Urine hemoglobin detection b y automated test stripon 08-01-2023 Hemoglobin Auto test strip Ql (U) LARGE NEGATIVE [facility] Urine nitrite detection by a utomated test stripon 08-01-2023 Nitrite Auto test strip Ql (U) Negative NEGATIVE [facility] Urine protein/creatinine rat ioon 08-01-2023 Protein/Creatinine (U) [Ratio] 6.[address] [facility] Urobilinogen Auto test strip (U) [Mass/Vol]on 08-01-2023 Urobilinogen Qn (U) 0.2 {Radha'U}/dL 0.2-1.[address] [facility] pH Auto test strip (U)on pH (U) 7.0 [pH] 5.0-9.[address] [facility] POCT EKGon 07-30-2023 [facility] POCT Protime / INRon 024 INR Coag (PPP) [Relative time] 2.3 {INR} Abnormal 0.8 - 1.2 [facility] Interpretation and review of laboratory results Abnormal [facility] POCT Protime / INRon 024 INR Coag (PPP) [Relative time] 2.2 {INR} Abnormal 0.8 - 1.2 [facility] Interpretation and review of laboratory results Abnormal [facility] POCT Protime / INRon 024 INR Coag (PPP) [Relative time] 1.4 {INR} Abnormal 0.8 - 1.2 [facility] Interpretation and review of laboratory results Abnormal [facility] POCT Protime / INRon 024 INR Coag (PPP) [Relative time] 1.8 {INR} Abnormal 0.8 - 1.2 [facility] Interpretation and review of laboratory results Abnormal [facility] POCT Protime / INRon 024 INR Coag (PPP) [Relative time] 3.2 {INR} Abnormal 0.8 - 1.2 [facility] Interpretation and review of laboratory results Abnormal [facility] POCT Protime / INRon 024 INR Coag (PPP) [Relative time] 2.3 {INR} Abnormal 0.8 - 1.2 [facility] Interpretation and review of laboratory results Abnormal [facility] POCT Protime / INRon 024 INR Coag (PPP) [Relative time] 3.5 {INR} Abnormal 0.8 - 1.2 [facility] Interpretation and review of laboratory results Abnormal [facility] BASIC METABOLIC PANLon 06-02 Anion gap [Moles/Vol] 9 mmol/L Normal 09-30 [facility] Comment on above: Performed By: #### B MP, LIVR, THYR #### [facility] ([id number]) [address], [address] [place] [address] Calcium [Mass/Vol] 9.0 mg/dL Normal 8.5-10.5 [facility] Comment on above: Performed By: #### B MP, LIVR, THYR #### [facility] ([id number]) [address], [address] [place] [address] Chloride [Moles/Vol] 106 mmol/L Normal 98-109 [facility] Comment on above: Performed By: #### B SAE NICHOLS THYR #### [facility] ([id number]) [address], [address] [place] [address] CO2 [Moles/Vol] 30 mmol/L Normal 22-32 [facility] Comment on above: Performed By: #### B MAGDALENA LIVDeisy THYR #### [facility] ([id number]) [address], [address] [place] [address] Creatinine [Mass/Vol] 1.58 mg/dL High 0.40-1.00 [facility] Comment on above: Result Comment: METH OD TRACEABLE TO IDMS STANDARD Performed By: #### B ASE NICHOLS THYR #### [facility] ([id number]) [address], [address] [place] [address] GFR/1.73 sq M.predicted among non-blacks MDRD (S/P/Bld) [Vol rate/Area] 32 mL/min/{1.73_m2} Low >59 [facility] Comment on above: Result Comment: Reported eGFR is based on the CKD-EPI 2020 equation that does not use a race coefficient. Performed By: #### B SAE NICHOLS THYR #### [facility] ([id number]) [address], [address] [place] [address] Glucose [Mass/Vol] 125 mg/dL High 65-99 [facility] Comment on above: Performed By: #### B MAGDALENA LIVDeisy THYR #### [facility] ([id number]) [address] [place] [address] Potassium [Moles/Vol] 4.3 mmol/L Normal 3.5-5.0 [facility] Comment on above: Performed By: #### B MAGDALENA LIVDeisy THYR #### [facility] ([id number]) [address], [address] [place] [address] Sodium [Moles/Vol] 145 mmol/L Normal 134-146 [facility] Comment on above: Performed By: #### B MAGDALENA, LIVR, THYR #### [facility] ([id number]) [address], [address] [place] [address] Urea nitrogen [Mass/Vol] 28 mg/dL High 5-27 [facility] Comment on above: Performed By: #### B MAGDALENA, LIVR, THYR #### [facility] ([id number]) [address], [address] [place] [address] LIVER PANELon 06-02-2023 Albumin [Mass/Vol] 3.3 g/dL Normal 3.2-5.3 [facility] Comment on above: Performed By: #### B MAGDALENA LIVR, THYR #### [facility] ([id number]) [address], [address] [place] [address] ALP [Catalytic activity/Vol] 40 U/L Normal 39-130 [facility] Comment on above: Performed By: #### B MAGDALENA, LIVR, THYR #### [facility] ([id number]) [address], [address] [place] [address] ALT [Catalytic activity/Vol] 10 U/L Normal 0-31 [facility] Comment on above: Performed By: #### B MP, LIVR, THYR #### [facility] ([id number]) [address], [address] [place] [address] AST [Catalytic activity/Vol] 10 U/L Normal 0-41 [facility] Comment on above: Performed By: #### B MP, LIVR, THYR #### [facility] ([id number]) [address], [address] [place] [address] Bilirubin [Mass/Vol] 0.2 mg/dL Low 0.3-1.2 [facility] Comment on above: Performed By: #### B SAE NICHOLS THYR #### [facility] ([id number]) [address], [address] [place] [address] Bilirubin.direct [Mass/Vol] 0.0 mg/dL Normal 0.0-0.4 [facility] Comment on above: Performed By: #### B MAGDALENA LIVDeisy THYR #### [facility] ([id number]) [address] [place] [address] Protein [Mass/Vol] 5.6 g/dL Low 6.0-8.0 [facility] Comment on above: Performed By: #### B SAE NICHOLS THYR #### [facility] ([id number]) [address] [facility] [place] [address] POCT Protime / INRon 024 INR Coag (PPP) [Relative time] 4.7 {INR} Abnormal 0.8 - 1.2 [facility] Interpretation and review of laboratory results Abnormal [facility] THYROID PROFILEon 06-02-2023 Free T4 [Mass/Vol] 0.96 ng/dL Normal 0.61-1.60 [facility] Comment on above: Performed By: #### B SAE NICHOLS THYR #### [facility] ([id number]) [address] [place] [address] TSH 7.63 uIU/mL High 0.49-4.67 [facility] Comment on above: Performed By: #### B MAGDALENA LIVDeisy THYR #### [facility] ([id number]) [address], [address] [place] [address] POCT EKGOrdered By: Latia Garcia on 05-28-2023 [facility] POCT Protime / INRon 024 INR Coag (PPP) [Relative time] 3.3 {INR} Abnormal 0.8 - 1.2 [facility] Interpretation and review of laboratory results Abnormal [facility] POCT Protime / INRon 024 INR Coag (PPP) [Relative time] 4.6 {INR} Abnormal 0.8 - 1.2 [facility] Interpretation and review of laboratory results Abnormal [facility] A1C HEMOGLOBINon 02-19-2023 HbA1c (Bld) [Mass fraction] 5.8 % [employer] Other Glucose - FINGER STICKon Glucose [Mass/Vol] 174 mg/dL [employer] Other HbA1c (Bld) [Mass fraction]o n 02-19-2023 A1C HEMOGLOBIN [facility] [employer] Other PROF 14(COMP METB)on 023 Albumin [Mass/Vol] 2.9 g/dL Critically low 3.4-5.0 [facility] Comment on above: Performed By: #### C MP #### [facility] [address] [place] [address] Dr. Lamar Lin Albumin/Globulin [Mass ratio] 0.8 {ratio} Normal [facility] Comment on above: Performed By: #### C MP #### [facility] [address] [address] [address] Lamar Lin ALP [Catalytic activity/Vol] 70 U/L Normal 46-116 [facility] Comment on above: Performed By: #### C MP #### [facility] [address] [address] [address] Lamar Lin ALT [Catalytic activity/Vol] 14 U/L Normal 14-59 [facility] Comment on above: Performed By: #### C MP #### [facility] [address] [address] [address] Lamar Lin Anion gap [Moles/Vol] 10.5 mmol/L Normal [facility] Comment on above: Performed By: #### C MP #### [facility] [address] [address] [address] Lamar Lin AST [Catalytic activity/Vol] 10 U/L Critically low 15-37 [facility] Comment on above: Performed By: #### C MP #### [facility] [address] [address] [address] Lamar Lin Bilirubin [Mass/Vol] 0.2 mg/dL Normal 0.2-1.0 [facility] Comment on above: Performed By: #### C MP #### [facility] [address] [address] [address] Lamar Lin Calcium [Mass/Vol] 9.4 mg/dL Normal 8.5-10.1 [facility] Comment on above: Performed By: #### C MP #### [facility] [address] [address] [address] Lamar Lin Chloride [Moles/Vol] 104 mmol/L Normal 98-107 [facility] Comment on above: Performed By: #### C MP #### [facility] [address] [address] [address] Lamar Lin CO2 [Moles/Vol] 34.9 mmol/L Critically high 21.0-32.0 [facility] Comment on above: Performed By: #### C MP #### [facility] [address] [address] [address] Lamar Lin Creatinine [Mass/Vol] 0.96 mg/dL Normal 0.55-1.02 [facility] Comment on above: Performed By: #### C MP #### [facility] [address] [address] [address] Lamar Lin EGFR-AF ETHIOPIAN >60 Normal >=60 [facility] Comment on above: Performed By: #### C MP #### [facility] [address] [address] [address] Lamar Lin EGFR-NON AF ETHIOPIAN 56 mL/min/1.73m2 Critically low >=60 [facility] Comment on above: Performed By: #### C MP #### [facility] [address] [address] [address] Lamar Lin Globulin (S) [Mass/Vol] 3.7 g/dL Normal [facility] Comment on above: Performed By: #### C MP #### [facility] [address] [address] [address] Lamar Lin Glucose [Mass/Vol] 132 mg/dL Critically high 74-106 [facility] Comment on above: Performed By: #### C MP #### [facility] [address] [address] [address] Lamar Lin Potassium [Moles/Vol] 4.4 mmol/L Normal 3.5-5.1 [facility] Comment on above: Performed By: #### C MP #### [facility] [address] [address] [address] Lamar Lin Protein [Mass/Vol] 6.6 g/dL Normal 6.4-8.2 [facility] Comment on above: Performed By: #### C MP #### [facility] [address] [address] [address] Lamar Lin Sodium [Moles/Vol] 145 mmol/L Normal 136-145 [facility] Comment on above: Performed By: #### C MP #### [facility] [address] [address] [address] Lamar Lin Urea nitrogen [Mass/Vol] 28.0 mg/dL Critically high 7.0-18.0 [facility] Comment on above: Performed By: #### C MP #### [facility] [address] [address] [address] Lamar Lin Urea nitrogen/Creatinine [Mass ratio] 29.2 mg/mg Normal [facility] Comment on above: Performed By: #### C MP #### [facility] [address] [address] [address] Lamar Lin A1C with Estimated Average Britt fraziertom 08-19-2022 HbA1c (Bld) [Mass fraction] 6.500 % High 4.3-5.6 % [employer] Other HbA1c (Bld) [Mass fraction] 140 mg/dL [employer] Other Comprehensive Metabolic Pane nahun 08-19-2022 Albumin [Mass/Vol] 3.246901 g/dL Normal 3.5-5.7 g/dL [employer] Other Albumin/Globulin [Mass ratio] 1.7 {ratio} [employer] Other ALP [Catalytic activity/Vol] 56 U/L Normal 34-104 U/L [employer] Other ALT [Catalytic activity/Vol] 14 U/L Normal 7-52 U/L [employer] Other AST [Catalytic activity/Vol] 15 U/L Normal 13-39 U/L [employer] Other Bilirubin [Mass/Vol] 0.4070636 mg/dL Low 0.3- 1.0 mg/dL [employer] Other Calcium [Mass/Vol] 9.8872457 mg/dL Normal 8.6-10 .3 mg/dL [employer] Other Chloride [Moles/Vol] 103 mmol/L Normal 98-107 mmol/L [employer] Other CO2 [Moles/Vol] 34.84612834 mmol/L High 21.0-3 1.0 mmol/L [employer] Other Creatinine [Mass/Vol] 0.46424626 mg/dL Normal 0. 60-1.20 mg/dL [employer] Other GFR/1.73 sq M.predicted MDRD (S/P/Bld) [Vol rate/Area] mL/min/{1.73_m2} [employer] Other Glucose [Mass/Vol] 156 mg/dL High 70-100 mg/dL [employer] Other Potassium [Moles/Vol] 4.24768466 mmol/L Normal 3 .5-5.1 mmol/L [employer] Other Protein [Mass/Vol] 5.451349 g/dL Low 6.4-8.9 g/dL [employer] Other Sodium [Moles/Vol] 144 mmol/L Normal 136-145 mmol/L [employer] Other Urea nitrogen [Mass/Vol] 24 mg/dL Normal 7-25 mg/dL [employer] Other Comprehensive Metabolic Panel 2.1 g/dL [employer] Other Glucose - FINGER STICKon Glucose [Mass/Vol] 205 mg/dL [employer] Other Lipid Panelon 08-19-2022 Cholesterol [Mass/Vol] 172 mg/dL Normal 140-2 00 mg/dL [employer] Other Cholesterol in HDL [Mass/Vol] 33 mg/dL Low 35-85 mg/dL [employer] Other Cholesterol in LDL Elph Qn 95 mg/dL Normal 0-100 mg/dL [employer] Other Cholesterol.total/Chol esterol in HDL [Mass ratio] 5.2 {ratio} <5.0 [employer] Other Lipid Panel 219 mg/dL High 0-149 mg/dL [employer] Other Lipid Panel 43 mg/dL [employer] Other Micro[employer]b Creat Ratio,Uon Albumin DL <= 20 mg/L (U) [Mass/Vol] mg/dL High 0.0-1.8 [employer] Other Albumin/Creatinine DL <= 20 mg/L (U) [Mass ratio] TNP 0.0-30.0 [employer] Other Creatinine (U) [Mass/Vol] 52.4650290 mg/dL [employer] Other Vitamin B12on 08-19-2022 Cobalamin (Vitamin B12) [Mass/Vol] 345 pg/mL Normal 180-914 pg/mL [facility] [employer] Other A1C HEMOGLOBINon 02-27-2022 HbA1c (Bld) [Mass fraction] 6.1 % [facility] [employer] Other Glucose - FINGER STICKon Glucose [Mass/Vol] 159 mg/dL [facility] [employer] Other HbA1c (Bld) [Mass fraction]o n 02-27-2022 A1C HEMOGLOBIN [facility] [employer] Other FREE T4on 10-30-2021 Free T4 [Mass/Vol] 1.11 ng/dL Normal 0.76-1.46 [facility] Comment on above: Performed By: #### F T4 #### [facility] [address] [place] [address] Dr. Lamar Lin T4on 10-30-2021 T4 [Mass/Vol] 8.30 ug/dL Normal 4.80-13.90 [facility] Comment on above: Performed By: #### T 4, TSH #### [facility] [address] [address] [address] Lamar Lin TSHon 10-30-2021 TSH 2.475 uIU/mL Normal 0.358-3.[address] [facility] Comment on above: Performed By: #### T 4, TSH #### [facility] [address] [place] [address] Dr. Lamar Lin Glucoseon 05-23-2021 Glucose [Mass/Vol] 167 mg/dL [facility] [employer] [facility] Other Vital Signs Date Time Vital Sign Value Performing Clinician Facility 02-10-2024 10:30-0400 Body height 152.4 cm [facility] 02-10-2024 10:30-0400 Body mass index (BMI) [Ratio] 38.7 kg/m2 [facility] 02-10-2024 10:30-0400 Body temperature 97.5 [degF] [facility] 02-10-2024 10:30-0400 Body weight 89.81 kg [facility] 02-10-2024 10:30-0400 Diastolic blood pressure 75 mm[Hg] [facility] 02-10-2024 10:30-0400 Heart rate 70 /min [facility] 02-10-2024 10:30-0400 Inhaled oxygen flow rate 2 L/min [facility] 02-10-2024 10:30-0400 Respiratory rate 18 /min [facility] 02-10-2024 10:30-0400 SaO2% (BldA) [Mass fraction] 97 % [facility] 02-10-2024 10:30-0400 Systolic blood pressure 160 mm[Hg] [facility] 01-27-2024 13:50-0400 Body height 152.4 cm [facility] 01-27-2024 13:50-0400 Body mass index (BMI) [Ratio] 39.6 kg/m2 [facility] 01-27-2024 13:50-0400 Body temperature 98.2 [degF] [facility] 01-27-2024 13:50-0400 Body weight 92.07 kg [facility] 01-27-2024 13:50-0400 Diastolic blood pressure 72 mm[Hg] [facility] 01-27-2024 13:50-0400 Heart rate 72 /min [facility] 01-27-2024 13:50-0400 Inhaled oxygen flow rate 2 L/min [facility] 01-27-2024 13:50-0400 Respiratory rate 18 /min [facility] 01-27-2024 13:50-0400 SaO2% (BldA) [Mass fraction] 98 % [facility] 01-27-2024 13:50-0400 Systolic blood pressure 166 mm[Hg] [facility] 01-13-2024 11:05-0400 Body height 152.4 cm [facility] 01-13-2024 11:05-0400 Body mass index (BMI) [Ratio] 39.6 kg/m2 [facility] 01-13-2024 11:05-0400 Body temperature 97.9 [degF] [facility] 01-13-2024 11:05-0400 Body weight 92 kg [facility] 01-13-2024 11:05-0400 Diastolic blood pressure 70 mm[Hg] [facility] 01-13-2024 11:05-0400 Heart rate 68 /min [facility] 01-13-2024 11:05-0400 Inhaled oxygen flow rate 2 L/min [facility] 01-13-2024 11:05-0400 Respiratory rate 18 /min [facility] 01-13-2024 11:05-0400 SaO2% (BldA) [Mass fraction] 96 % [facility] 01-13-2024 11:05-0400 Systolic blood pressure 128 mm[Hg] [facility] 12-30-2023 13:44-0400 Body height 152.4 cm [facility] 12-30-2023 13:44-0400 Body mass index (BMI) [Ratio] 39.6 kg/m2 [facility] 12-30-2023 13:44-0400 Body temperature 97.6 [degF] [facility] 12-30-2023 13:44-0400 Body weight 92.24 kg [facility] 12-30-2023 13:44-0400 Diastolic blood pressure 68 mm[Hg] [facility] 12-30-2023 13:44-0400 Heart rate 68 /min [facility] 12-30-2023 13:44-0400 Inhaled oxygen flow rate 2 L/min [facility] 12-30-2023 13:44-0400 Respiratory rate 18 /min [facility] 12-30-2023 13:44-0400 SaO2% (BldA) [Mass fraction] 96 % [facility] 12-30-2023 13:44-0400 Systolic blood pressure 131 mm[Hg] [facility] 12-11-2023 11:31-0400 Body height 152.4 cm [facility] 12-11-2023 11:31-0400 Body mass index (BMI) [Ratio] 40.8 kg/m2 [facility] 12-11-2023 11:31-0400 Body temperature 97.1 [degF] [facility] 12-11-2023 11:31-0400 Body weight 94.85 kg [facility] 12-11-2023 11:31-0400 Diastolic blood pressure 60 mm[Hg] [facility] 12-11-2023 11:31-0400 Heart rate 68 /min [facility] 12-11-2023 11:31-0400 Inhaled oxygen flow rate 2 L/min [facility] 12-11-2023 11:31-0400 Respiratory rate 18 /min [facility] 12-11-2023 11:31-0400 SaO2% (BldA) [Mass fraction] 95 % [facility] 12-11-2023 11:31-0400 Systolic blood pressure 130 mm[Hg] [facility] 12-08-2023 10:40-0400 Body height 152.4 cm [facility] 12-08-2023 10:40-0400 Body mass index (BMI) [Ratio] 40.8 kg/m2 [facility] 12-08-2023 10:40-0400 Body weight 94.97 kg [facility] 12-08-2023 10:40-0400 Diastolic blood pressure 61 mm[Hg] [facility] 12-08-2023 10:40-0400 Heart rate 56 /min [facility] 12-08-2023 10:40-0400 Respiratory rate 18 /min [facility] 12-08-2023 10:40-0400 SaO2% (BldA) [Mass fraction] 95 % [facility] 12-08-2023 10:40-0400 Systolic blood pressure 119 mm[Hg] [facility] 11-18-2023 10:03-0400 Body height 152.4 cm ALFREDO Light Work Phone: [facility] 11-18-2023 10:03-0400 Body mass index (BMI) [Ratio] 39.2 kg/m2 ALFREDO Light Work Phone: [facility] 11-18-2023 10:03-0400 Body temperature 98 [degF] FOLDER GLUER OPERATOR-C Anika Elaine Work Phone: [facility] 11-18-2023 10:03-0400 Body weight 91.22 kg FOLDER GLUER OPERATOR-C Anika Elaine Work Phone: [facility] 11-18-2023 10:03-0400 Diastolic blood pressure 71 mm[Hg] FOLDER GLUER OPERATOR-C Anika Elaine Work Phone: [facility] 11-18-2023 10:03-0400 Heart rate 70 /min FOLDER GLUER OPERATOR-C Anika Elaine Work Phone: [facility] 11-18-2023 10:03-0400 Inhaled oxygen flow rate 2 L/min FOLDER GLUER OPERATOR-C Anika Elaine Work Phone: [facility] 11-18-2023 10:03-0400 Respiratory rate 16 /min FOLDER GLUER OPERATOR-C Anika Elaine Work Phone: [facility] 11-18-2023 10:03-0400 SaO2% (BldA) [Mass fraction] 94 % FOLDER GLUER OPERATOR-C Anika Elaine Work Phone: [facility] 11-18-2023 10:03-0400 Systolic blood pressure 162 mm[Hg] FOLDER GLUER OPERATOR-C Anika Elaine Work Phone: [facility] 11-05-2023 14:04-0400 Body height 152.4 cm FOLDER GLUER OPERATOR-C Anika Elaine Work Phone: [facility] 11-05-2023 14:04-0400 Body mass index (BMI) [Ratio] 39 kg/m2 FOLDER GLUER OPERATOR-C Anika Elaine Work Phone: [facility] 11-05-2023 14:04-0400 Body temperature 98.1 [degF] FOLDER GLUER OPERATOR-C Anika Elaine Work Phone: [facility] 11-05-2023 14:04-0400 Body weight 90.71 kg FOLDER GLUER OPERATOR-C Anika Elaine Work Phone: [facility] 11-05-2023 14:04-0400 Diastolic blood pressure 68 mm[Hg] FOLDER GLUER OPERATOR-C Anika Elaine Work Phone: [facility] 11-05-2023 14:04-0400 Heart rate 56 /min FOLDER GLUER OPERATOR-C Anika Elaine Work Phone: [facility] 11-05-2023 14:04-0400 Inhaled oxygen flow rate 2 L/min FOLDER GLUER OPERATOR-C Anika Elaine Work Phone: [facility] 11-05-2023 14:04-0400 Respiratory rate 18 /min FOLDER GLUER OPERATOR-C Anika Elaine Work Phone: [facility] 11-05-2023 14:04-0400 SaO2% (BldA) [Mass fraction] 92 % FOLDER GLUER OPERATOR-C Anika Elaine Work Phone: [facility] 11-05-2023 14:04-0400 Systolic blood pressure 136 mm[Hg] FOLDER GLUER OPERATOR-C Anika Elaine Work Phone: [facility] 10-15-2023 13:42-0400 Body height 152.4 cm FOLDER GLUER OPERATOR-C Anika Elaine Work Phone: [facility] 10-15-2023 13:42-0400 Body mass index (BMI) [Ratio] 38.7 kg/m2 FOLDER GLUER OPERATOR-C Anika Elaine Work Phone: [facility] 10-15-2023 13:42-0400 Body temperature 97.6 [degF] FOLDER GLUER OPERATOR-C Anika Elaine Work Phone: [facility] 10-15-2023 13:42-0400 Body weight 90.03 kg FOLDER GLUER OPERATOR-C Anika Elaine Work Phone: [facility] 10-15-2023 13:42-0400 Diastolic blood pressure 70 mm[Hg] FOLDER GLUER OPERATOR-C Anika Elaine Work Phone: [facility] 10-15-2023 13:42-0400 Heart rate 60 /min FOLDER GLUER OPERATOR-C Anika Elaine Work Phone: [facility] 10-15-2023 13:42-0400 Inhaled oxygen flow rate 2 L/min FOLDER GLUER OPERATOR-C Anika Elaine Work Phone: [facility] 10-15-2023 13:42-0400 Respiratory rate 18 /min FOLDER GLUER OPERATOR-C Anika Elaine Work Phone: [facility] 10-15-2023 13:42-0400 SaO2% (BldA) [Mass fraction] 97 % FOLDER GLUER OPERATOR-C Anika Elaine Work Phone: [facility] 10-15-2023 13:42-0400 Systolic blood pressure 143 mm[Hg] FOLDER GLUER OPERATOR-C Anika Elaine Work Phone: [facility] 09-23-2023 09:37-0400 Body height 152.4 cm FOLDER GLUER OPERATOR-C Anika Elaine Work Phone: [facility] 09-23-2023 09:37-0400 Body mass index (BMI) [Ratio] 38.5 kg/m2 FOLDER GLUER OPERATOR-C Anika Elaine Work Phone: [facility] 09-23-2023 09:37-0400 Body temperature 97.9 [degF] FOLDER GLUER OPERATOR-C Anika Elaine Work Phone: [facility] 09-23-2023 09:37-0400 Body weight 89.44 kg FOLDER GLUER OPERATOR-C Anika Elaine Work Phone: [facility] 09-23-2023 09:37-0400 Diastolic blood pressure 72 mm[Hg] FOLDER GLUER OPERATOR-C Anika Elaine Work Phone: [facility] 09-23-2023 09:37-0400 Heart rate 67 /min FOLDER GLUER OPERATOR-C Anika Elaine Work Phone: [facility] 09-23-2023 09:37-0400 Inhaled oxygen flow rate 2 L/min FOLDER GLUER OPERATOR-C Anika Elaine Work Phone: [facility] 09-23-2023 09:37-0400 Respiratory rate 18 /min FOLDER GLUER OPERATOR-C Anika Elaine Work Phone: [facility] 09-23-2023 09:37-0400 SaO2% (BldA) [Mass fraction] 97 % FOLDER GLUER OPERATOR-C Anika Light Work Phone: [facility] 09-23-2023 09:37-0400 Systolic blood pressure 149 mm[Hg] FOLDER GLUER OPERATOR-C Anikasophy Marsmer Work Phone: [facility] 09-09-2023 14:15-0400 Body height 152.4 cm FOLDER GLUER OPERATOR-C Anikasophy Marsmer Work Phone: [facility] 09-09-2023 14:15-0400 Body mass index (BMI) [Ratio] 38.9 kg/m2 FOLDER GLUER OPERATOR-C Anikasophy Marsmer Work Phone: [facility] 09-09-2023 14:15-0400 Body temperature 97.2 [degF] FOLDER GLUER OPERATOR-C Anika Light Work Phone: [facility] 09-09-2023 14:15-0400 Body weight 90.49 kg FOLDER GLUER OPERATOR-C Anika Light Work Phone: [facility] 09-09-2023 14:15-0400 Diastolic blood pressure 77 mm[Hg] FOLDER GLUER OPERATOR-C Anika Light Work Phone: [facility] 09-09-2023 14:15-0400 Heart rate 70 /min FOLDER GLUER OPERATOR-C Anika Light Work Phone: [facility] 09-09-2023 14:15-0400 Inhaled oxygen flow rate 2 L/min FOLDER GLUER OPERATOR-C Anikasophy Marsmer Work Phone: [facility] 09-09-2023 14:15-0400 Respiratory rate 18 /min FOLDER GLUER OPERATOR-C Anika Elaine Work Phone: [facility] 09-09-2023 14:15-0400 SaO2% (BldA) [Mass fraction] 97 % FOLDER GLUER OPERATOR-C Anikasophy Marsmer Work Phone: [facility] 09-09-2023 14:15-0400 Systolic blood pressure 147 mm[Hg] FOLDER GLUER OPERATOR-C Anika Elaine Work Phone: [facility] 09-01-2023 11:35-0400 Diastolic blood pressure 73 mm[Hg] FOLDER GLUER OPERATOR-C Anika Elaine Work Phone: [facility] 09-01-2023 11:35-0400 Heart rate 62 /min FOLDER GLUER OPERATOR-C Anika Elaine Work Phone: [facility] 09-01-2023 11:35-0400 Inhaled oxygen flow rate 2 L/min FOLDER GLUER OPERATOR-C Anika Elaine Work Phone: [facility] 09-01-2023 11:35-0400 Respiratory rate 18 /min FOLDER GLUER OPERATOR-C Anika Elaine Work Phone: [facility] 09-01-2023 11:35-0400 SaO2% (BldA) [Mass fraction] 96 % FOLDER GLUER OPERATOR-C Anika Elaine Work Phone: [facility] 09-01-2023 11:35-0400 Systolic blood pressure 164 mm[Hg] FOLDER GLUER OPERATOR-C Anika Elaine Work Phone: [facility] 09-01-2023 09:17-0400 Body height 152.4 cm FOLDER GLUER OPERATOR-C Anika Elaine Work Phone: [facility] 09-01-2023 09:17-0400 Body weight 93.44 kg FOLDER GLUER OPERATOR-C Anika Elaine Work Phone: [facility] 08-20-2023 10:20-0400 Body height 152.4 cm [facility] 08-20-2023 10:20-0400 Body mass index (BMI) [Ratio] 40.2 kg/m2 [facility] 08-20-2023 10:20-0400 Body weight 93.44 kg [facility] 08-20-2023 10:20-0400 Diastolic blood pressure 84 mm[Hg] [facility] 08-20-2023 10:20-0400 Heart rate 73 /min [facility] 08-20-2023 10:20-0400 Inhaled oxygen flow rate 2 L/min [facility] 08-20-2023 10:20-0400 Respiratory rate 18 /min [facility] 08-20-2023 10:20-0400 SaO2% (BldA) [Mass fraction] 94 % [facility] 08-20-2023 10:20-0400 Systolic blood pressure 176 mm[Hg] [facility] 08-13-2023 10:41-0400 Body height 152.4 cm [facility] 08-13-2023 10:41-0400 Body mass index (BMI) [Ratio] 40.1 kg/m2 [facility] 08-13-2023 10:41-0400 Body temperature 97.5 [degF] [facility] 08-13-2023 10:41-0400 Body weight 93.15 kg [facility] 08-13-2023 10:41-0400 Diastolic blood pressure 72 mm[Hg] [facility] 08-13-2023 10:41-0400 Heart rate 77 /min [facility] 08-13-2023 10:41-0400 Inhaled oxygen flow rate 2 L/min [facility] 08-13-2023 10:41-0400 Respiratory rate 20 /min [facility] 08-13-2023 10:41-0400 SaO2% (BldA) [Mass fraction] 95 % [facility] 08-13-2023 10:41-0400 Systolic blood pressure 162 mm[Hg] [facility] 07-30-2023 11:44-0400 Body height 165.1 cm Tr SOLORZANO Work Phone: [facility] 07-30-2023 11:44-0400 Body mass index (BMI) [Ratio] 34.28 kg/m2 Tr Jimenez APRN-JOSE Work Phone: [facility] 07-30-2023 11:44-0400 Body weight 93.44 kg Tr Jimenez APRN-JOSE Work Phone: [facility] 07-30-2023 11:44-0400 Diastolic blood pressure 80 mm[Hg] Tr Jimenez HOSPICE OFFICE COORDINATOR-SNUFF PACK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 Work Phone: [facility] 07-30-2023 11:44-0400 Heart rate 59 /min Tr Jimenez HOSPICE OFFICE COORDINATOR-SNUFF PACK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 Work Phone: [facility] 07-30-2023 11:44-0400 Systolic blood pressure 140 mm[Hg] Tr Jimenez HOSPICE OFFICE COORDINATOR-SNUFF PACK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 Work Phone: [facility] 06-17-2023 12:41-0500 Body height 165.1 cm Iona Delarosa MD Work Phone: [facility] 06-17-2023 12:41-0500 Body mass index (BMI) [Ratio] 33.61 kg/m2 Iona Delarosa MD Work Phone: [facility] 06-17-2023 12:41-0500 Body weight 91.63 kg Iona Delarosa MD Work Phone: [facility] 06-17-2023 12:41-0500 Diastolic blood pressure 70 mm[Hg] Iona Delarosa MD Work Phone: [facility] 06-17-2023 12:41-0500 Heart rate 73 /min Iona Delarosa MD Work Phone: [facility] 06-17-2023 12:41-0500 SaO2% (BldA) [Mass fraction] 97 % Iona Delarosa MD Work Phone: [facility] 06-17-2023 12:41-0500 Systolic blood pressure 160 mm[Hg] Iona Delarosa MD Work Phone: [facility] 05-28-2023 12:35-0500 Body height 165.1 cm Tr Jimenez HOSPICE OFFICE COORDINATOR-SNUFF PACK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 Work Phone: [facility] 05-28-2023 12:35-0500 Body mass index (BMI) [Ratio] 33.61 kg/m2 Tr Jimenez HOSPICE OFFICE COORDINATOR-SNUFF PACK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 Work Phone: [employer] 05-28-2023 12:35-0500 Body weight 91.63 kg Tr Jimenez HOSPICE OFFICE COORDINATOR-SNUFF PACK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 Work Phone: [employer] 05-28-2023 12:35-0500 Diastolic blood pressure 100 mm[Hg] Tr Jimenez HOSPICE OFFICE COORDINATOR-SNUFF PACK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 Work Phone: [employer] 05-28-2023 12:35-0500 Heart rate 64 /min Tr Jimenez HOSPICE OFFICE COORDINATOR-SNUFF PACK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 Work Phone: [facility] 05-28-2023 12:35-0500 SaO2% (BldA) [Mass fraction] 94 % Tr Jimenez HOSPICE OFFICE COORDINATOR-SNUFF PACK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 Work Phone: [employer] 05-28-2023 12:35-0500 Systolic blood pressure 200 mm[Hg] Tr Jimenez HOSPICE OFFICE COORDINATOR-SNUFF PACK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 Work Phone: [facility] [employer] 04-22-2023 10:20-0500 Body height 152.4 cm Tresatawalter [employer] Other [facility] 04-22-2023 10:20-0500 Body mass index (BMI) [Ratio] 39.64 kg/m2 Tresatawalter [employer] Other [facility] [employer] Other 04-22-2023 10:20-0500 Body weight 92.08 kg Tresatawalter [employer] Other [facility] [employer] Other 04-22-2023 10:20-0500 Body weight 92.07 kg [facility] 04-22-2023 10:20-0500 Diastolic blood pressure 70 mm[Hg] Azwalter [employer] Other [facility] 04-22-2023 10:20-0500 Respiratory rate 18 /min [employer] Other [facility] [employer] Other 04-22-2023 10:20-0500 SaO2% (BldA) [Mass fraction] 97 % Rin Sarmiento Other [employer] Other 04-22-2023 10:20-0500 Systolic blood pressure 138 mm[Hg] Rin Sarmiento Other [facility] 02-19-2023 09:15-0400 Body height 152.4 cm Tondra Mapus Other [employer] Other 02-19-2023 09:15-0400 Body mass index (BMI) [Ratio] 40.21 kg/m2 Tondra Mapus Other [employer] Other 02-19-2023 09:15-0400 Body weight 93.4 kg Tondra Mapus Other [employer] Other 02-19-2023 09:15-0400 Diastolic blood pressure 64 mm[Hg] Tondra Mapus Other [employer] Other 02-19-2023 09:15-0400 Respiratory rate 18 /min Tondra Mapus Other [employer] Other 02-19-2023 09:15-0400 SaO2% (BldA) [Mass fraction] 95 % Tondra Mapus Other [employer] Other 02-19-2023 09:15-0400 Systolic blood pressure 129 mm[Hg] Tondra Mapus Other [employer] Other 02-12-2023 09:00-0400 Body height 152.4 cm Tondra Mapus Other [employer] Other 02-12-2023 09:00-0400 Body mass index (BMI) [Ratio] 40.07 kg/m2 Chester Lin Other [employer] Other 02-12-2023 09:00-0400 Body weight 93.08 kg Chester Lin Other [employer] Other 10-22-2022 10:00-0400 Body height 152.4 cm Azwalter Bakhous Other [employer] Other 10-22-2022 10:00-0400 Body mass index (BMI) [Ratio] 40.23 kg/m2 Aziz Bakhous Other [employer] Other 10-22-2022 10:00-0400 Body temperature 97.4 [degF] Aziz Bakhous Other [employer] Other 10-22-2022 10:00-0400 Body weight 93.44 kg Aziz Bakhous Other [employer] Other 10-22-2022 10:00-0400 Diastolic blood pressure 78 mm[Hg] Aziz Bakhous Other [employer] Other 10-22-2022 10:00-0400 Respiratory rate 20 /min Aziz Bakhous Other [employer] Other 10-22-2022 10:00-0400 SaO2% (BldA) [Mass fraction] 92 % Aziz Bakhous Other [employer] Other 10-22-2022 10:00-0400 Systolic blood pressure 146 mm[Hg] Aziz Bakhous Other [employer] Other 08-19-2022 10:15-0400 Body height 152.4 cm Tondra Mapus Other [employer] Other 08-19-2022 10:15-0400 Body mass index (BMI) [Ratio] 39.82 kg/m2 Tondra Mapus Other [employer] Other 08-19-2022 10:15-0400 Body weight 92.49 kg Tondra Mapus Other [employer] Other 08-19-2022 10:15-0400 Diastolic blood pressure 63 mm[Hg] Tondra Mapus Other [employer] Other 08-19-2022 10:15-0400 Respiratory rate 20 /min Tondra Mapus Other [employer] Other 08-19-2022 10:15-0400 SaO2% (BldA) [Mass fraction] 95 % Tondra Mapus Other [employer] Other 08-19-2022 10:15-0400 Systolic blood pressure 136 mm[Hg] Tondra Mapus Other [employer] Other 02-27-2022 10:15-0400 Body height 152.4 cm Tondra Mapus Other [employer] Other 02-27-2022 10:15-0400 Body mass index (BMI) [Ratio] 41.79 kg/m2 Tondra Mapus Other [employer] Other 02-27-2022 10:15-0400 Body weight 97.07 kg Tondra Mapus Other [employer] Other 02-27-2022 10:15-0400 Diastolic blood pressure 55 mm[Hg] Tondra Mapus Other [employer] Other 02-27-2022 10:15-0400 Respiratory rate 20 /min Tondra Mapus Other [employer] Other 02-27-2022 10:15-0400 SaO2% (BldA) [Mass fraction] 97 % Tondra Mapus Other [employer] Other 02-27-2022 10:15-0400 Systolic blood pressure 130 mm[Hg] Tondra Mapus Other [employer] Other 10-23-2021 11:00-0400 Body height 152.4 cm Tresatawalter [employer] Other [employer] Other 10-23-2021 11:00-0400 Body mass index (BMI) [Ratio] 44.05 kg/m2 [employer]walter [employer] Other [employer] Other 10-23-2021 11:00-0400 Body temperature 97.5 [degF] Aziz Tomorrowishs Other [employer] Other 10-23-2021 11:00-0400 Body weight 102.33 kg Tresataiz [employer] Other [employer] Other 10-23-2021 11:00-0400 Diastolic blood pressure 72 mm[Hg] Tresataiz Tomorrow[employer] Other [employer] Other 10-23-2021 11:00-0400 Respiratory rate 20 /min Rin Sarmiento Other [employer] Other 10-23-2021 11:00-0400 SaO2% (BldA) [Mass fraction] 94 % Rin Sarmiento Other [employer] Other 10-23-2021 11:00-0400 Systolic blood pressure 135 mm[Hg] Rin Sarmiento Other [employer] Other 05-23-2021 10:15-0500 Body height 152.4 cm Tondra Mapus Other [employer] Other 05-23-2021 10:15-0500 Body mass index (BMI) [Ratio] 43.25 kg/m2 Tondra Mapus Other [employer] Other 05-23-2021 10:15-0500 Body weight 100.47 kg Tondra Mapus Other [employer] Other 05-23-2021 10:15-0500 Diastolic blood pressure 57 mm[Hg] Tondra Mapus Other [employer] Other 05-23-2021 10:15-0500 Respiratory rate 20 /min Tondra Mapus Other [employer] Other 05-23-2021 10:15-0500 SaO2% (BldA) [Mass fraction] 96 % Tondra Mapus Other [employer] Other 05-23-2021 10:15-0500 Systolic blood pressure 131 mm[Hg] Tondra Mapus Other [facility] [employer] Other Encounters Encounter Date Encounter Type Care Provider Facility Start: 02-10-2024 End: 02-10-2024 ambulatory [facility] Work Phone: Start: 02-10-2024 End: 02-10-2024 Patient encounter procedure [facility] Physician [facility] [place] Work Phone: Start: 02-03-2024 Non-patient / Non-visit [facility] Physician [facility] Work Phone: Start: 01-28-2024 End: 01-28-2024 [facility] Start: 01-27-2024 End: 01-27-2024 [facility] Work Phone: Start: 01-27-2024 End: 01-27-2024 Patient encounter procedure [facility] Physician [facility] [place] Work Phone: Start: 01-23-2024 Non-patient / Non-visit [facility] Work Phone: Start: 01-20-2024 Non-patient / Non-visit [facility] Physician [facility] Work Phone: Start: 01-13-2024 End: 01-13-2024 ambulatory [facility] Work Phone: Start: 01-13-2024 End: 01-13-2024 Patient encounter procedure [facility] Physician [facility] Work Phone: Start: 01-05-2024 Non-patient / Non-visit [facility] Physician [facility] Work Phone: Start: 12-31-2023 End: 12-31-2023 ambulatory [facility] Start: 12-30-2023 End: 12-30-2023 ambulatory [facility] Work Phone: Start: 12-30-2023 End: 12-30-2023 Patient encounter procedure [facility] Physician [facility] Work Phone: Start: 12-11-2023 End: 12-11-2023 ambulatory [facility] Work Phone: Start: 12-11-2023 End: 12-11-2023 Patient encounter procedure [facility] Physician [facility] [place] Work Phone: Start: 12-08-2023 End: 12-08-2023 ambulatory [facility] Work Phone: Start: 12-08-2023 End: 12-08-2023 Patient encounter procedure [facility] Physician [facility] Work Phone: Start: 12-03-2023 End: 12-03-2023 ambulatory [facility] Start: 11-27-2023 Non-patient / Non-visit [facility] Work Phone: Start: 11-18-2023 End: 11-18-2023 ambulatory FOLDER GLUER OPERATOR-C Anika Deepa Elaine Work Phone: [facility] Work Phone: Start: 11-18-2023 End: 11-18-2023 Patient encounter procedure FOLDER GLUER OPERATOR-C Anika Elaine Work Phone: [facility] Physician [facility]ph[facility] Work Phone: Start: 11-13-2023 Non-patient / Non-visit FOLDER GLUER OPERATOR-C P mellissa Elaine Work Phone: [facility] Work Phone: Start: 11-12-2023 End: 11-12-2023 ambulatory [facility] Start: 11-05-2023 End: 11-05-2023 ambulatory FOLDER GLUER OPERATOR-C Anika Deepa Elaine Work Phone: [facility] Work Phone: Start: 11-05-2023 End: 11-05-2023 Patient encounter procedure FOLDER GLUER OPERATOR-C Anika Elaine Work Phone: [facility] Nephrology Work Phone: Start: 10-30-2023 Non-patient / Non-visit FOLDER GLUER OPERATOR-C P mellissa Elaine Work Phone: [facility] Work Phone: Start: 10-22-2023 End: 10-22-2023 ambulatory [facility] Start: 10-15-2023 End: 10-15-2023 ambulatory FOLDER GLUER OPERATOR-C Anika Deepa Elaine Work Phone: [facility] Work Phone: Start: 10-15-2023 End: 10-15-2023 Patient encounter procedure FOLDER GLUER OPERATOR-C Anika Elaine Work Phone: [facility] Work Phone: Start: 10-08-2023 End: 10-08-2023 ambulatory [facility] Start: 10-07-2023 Non-patient / Non-visit FOLDER GLUER OPERATOR-C P mellissa Elaine Work Phone: [facility] Work Phone: Start: 09-23-2023 End: 09-23-2023 ambulatory [facility] Start: 09-23-2023 End: 09-23-2023 ambulatory FOLDER GLUER OPERATOR-C Anika Deepa Elaine Work Phone: [facility] Work Phone: Start: 09-23-2023 End: 09-23-2023 Patient encounter procedure FOLDER GLUER OPERATOR-C Anika Elaine Work Phone: [facility] Physician [facility] Nephrology Work Phone: Start: 09-16-2023 End: 09-16-2023 ambulatory [facility] Start: 09-16-2023 Non-patient / Non-visit FOLDER GLUER OPERATOR-C P mellissa Elaine Work Phone: [facility] Work Phone: Start: 09-11-2023 End: 09-11-2023 ambulatory LUCI GREEN Not Available Start: 09-09-2023 End: 09-09-2023 ambulatory FOLDER GLUER OPERATOR-C Anika Arenas Elaine Work Phone: [facility] Work Phone: Start: 09-09-2023 End: 09-09-2023 Patient encounter procedure FOLDER GLUER OPERATOR-C Anika Elaine Work Phone: [facility] Physician [facility] Ne[facility] Work Phone: Start: 09-01-2023 End: 09-01-2023 ambulatory Anika Deepa Elaine Facility:[facility] Start: 09-01-2023 End: 09-01-2023 Admission to same day surgery center FOLDER GLUER OPERATOR-C Anika Elaine Work Phone: [facility] [place] Work Phone: Start: 09-01-2023 End: 09-01-2023 ambulatory FOLDER GLUER OPERATOR-C Anika Light Work Phone: [facility] Work Phone: Start: 08-21-2023 End: 08-21-2023 Follow-up encounter [facility] [address] [facility] Medication Therapy Management Comment on above: PAF (paroxysmal atri al fibrillation) ([facility]) (Primary Dx) Start: 08-21-2023 End: 08-21-2023 ambulatory [facility] Start: 08-20-2023 End: 08-20-2023 ambulatory [facility] Work Phone: Start: 08-20-2023 End: 08-20-2023 Patient encounter procedure [facility] Physician [facility] Work Phone: Start: 08-20-2023 End: 09-17-2023 ambulatory [facility] Start: 08-13-2023 End: 08-13-2023 ambulatory [facility] Work Phone: Start: 08-13-2023 End: 08-13-2023 Patient encounter procedure [facility] Physician [facility] Neph[facility] Work Phone: Start: 08-05-2023 Non-patient / Non-visit [facility] Physician [facility] Work Phone: Start: 08-01-2023 Non-patient / Non-visit [facility] Physician [facility] Work Phone: Start: 07-30-2023 End: 07-30-2023 Office outpatient visit 25 minutes Cole Krishnan MD Work Phone: [facility] Physicians Cardiology Comment on above: PAF (paroxysmal atri al fibrillation) ([facility]) (Primary Dx); Hyperlipidemia, unspecified hyperlipidemia type; Benign hypertensive heart disease without congestive heart failure Start: 07-30-2023 End: 07-30-2023 Follow-up encounter [facility] Medication Therapy Management Comment on above: PAF (paroxysmal atri al fibrillation) ([facility]) (Primary Dx) Start: 07-30-2023 End: 07-30-2023 ambulatory [facility] Start: 07-29-2023 Telephone encounter Enedelia garay [facility] Physicians Cardiology Start: 07-21-2023 Orders Only Alicia Galvan RN [facility] Physicians Pulmonary/Sleep Medicine Comment on above: Shortness of breath; Chronic obstructive pulmonary disease, unspecified COPD type ([facility]) Start: 07-18-2023 End: 07-18-2023 Follow-up encounter [facility] [address] [facility] Medication Therapy Management Comment on above: PAF (paroxysmal atri al fibrillation) ([facility]) (Primary Dx) Start: 07-18-2023 End: 07-18-2023 ambulatory [facility] Start: 07-10-2023 End: 07-10-2023 [facility] Medication Therapy Management Comment on above: PAF (paroxysmal atri al fibrillation) ([facility]) (Primary Dx) Start: 07-10-2023 End: 07-10-2023 ambulatory [facility] Start: 07-02-2023 End: 07-02-2023 ambulatory ANITA MCCOY [facility] Start: 06-26-2023 End: 06-26-2023 Follow-up encounter [facility] [address] [facility] Medication Therapy Management Comment on above: PAF (paroxysmal atri al fibrillation) ([facility]) (Primary Dx) Start: 06-26-2023 End: 06-26-2023 ambulatory [facility] Start: 06-20-2023 End: 07-18-2023 [facility] Start: 06-17-2023 End: 06-17-2023 Office outpatient visit 15 minutes Iona Delarosa MD Work Phone: [facility] Physicians Cardiology Comment on above: PAF (paroxysmal atri al fibrillation) ([facility]) (Primary Dx); Benign hypertensive heart disease without congestive heart failure; 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 Medication Therapy Management Comment on above: PAF (paroxysmal atri al fibrillation) ([facility]) (Primary Dx) Start: 06-17-2023 End: 06-17-2023 ambulatory IONA DELAROSA [facility] Start: 06-16-2023 Telephone encounter Enedelia garay CMA [facility] Physicians Cardiology Start: 06-10-2023 End: 06-10-2023 Follow-up encounter [facility] [address] [facility] Medication Therapy Management Comment on above: PAF (paroxysmal atri al fibrillation) ([facility]) (Primary Dx) Start: 06-10-2023 End: 06-10-2023 ambulatory [facility] Start: 06-09-2023 End: 06-09-2023 ambulatory Chester Lin Other [employer] Other Start: 06-09-2023 Telephone encounter Chester Lin [facility] Start: 06-05-2023 End: 06-05-2023 ambulatory LUCI Harris MARY CARMEN Not Available Start: 06-05-2023 End: 06-05-2023 Follow-up encounter [facility] [address] [facility] Medication Therapy Management Comment on above: PAF (paroxysmal atri al fibrillation) ([facility]) (Primary Dx) Start: 06-05-2023 End: 06-05-2023 [facility] Start: 06-03-2023 End: 06-03-2023 ambulatory Rin Sarmiento Other [employer] Other Start: 06-03-2023 Telephone encounter Rin Sarmiento [facility] Start: 06-02-2023 End: 06-02-2023 Follow-up encounter [facility] [address] [facility] Medication Therapy Management Comment on above: PAF (paroxysmal atri al fibrillation) ([facility]) (Primary Dx) Start: 06-02-2023 End: 06-02-2023 ambulatory ANIKA Simpson [facility] Start: 05-28-2023 End: 05-28-2023 Office outpatient visit 25 minutes Tr Jimenez HOSPICE OFFICE COORDINATOR-SNUFF PACK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 Work Phone: [facility] Physicians Cardiology Comment on above: PAF (paroxysmal atri al fibrillation) ([facility]) (Primary Dx); Ventricular premature beats; Sinus pause; Benign hypertensive heart disease without congestive heart failure; jail current use of amiodarone Start: 05-28-2023 End: 07-09-2023 ambulatory TR JIMENEZ [facility] Start: 05-27-2023 End: 05-27-2023 ambulatory Chester Lin Other [employer] Other Start: 05-27-2023 Telephone encounter Elza Wolfe [facility] Start: 05-26-2023 End: 05-26-2023 Follow-up encounter [facility] [address] [facility] Medication Therapy Management Comment on above: PAF (paroxysmal atri al fibrillation) ([facility] (Primary Dx) Start: 05-26-2023 End: 05-26-2023 ambulatory [facility] Start: 05-21-2023 End: 05-21-2023 Anticoagulant drug monitoring [facility] Medication Therapy Management Comment on above: PAF (paroxysmal atri al fibrillation) ([facility] (Primary Dx) Start: 05-21-2023 End: 05-21-2023 ambulatory [facility] Start: 05-06-2023 End: 05-06-2023 ambulatory NAVA Bran [facility] Start: 04-23-2023 End: 04-23-2023 ambulatory Aziz Bakhous Other [employer] Other Start: 04-23-2023 Telephone encounter Aziz Bakhous [facility] Start: 04-22-2023 End: 04-22-2023 ambulatory Aziz Bakhous Other [employer] Other Start: 04-22-2023 Office outpatient vi sit 25 minutes Aziz Bakhous [facility] Start: 04-22-2023 End: 04-22-2023 Patient encounter procedure [facility] Work Phone: Start: 04-21-2023 End: 04-21-2023 ambulatory Aziz Bakhous Other [employer] Other Start: 04-21-2023 Telephone encounter Aziz Bakhous [facility] Start: 02-19-2023 (DM) Diabetes Tondra Mapus [facility] Start: 02-19-2023 End: 02-20-2023 ambulatory PHYSICIAN NO FAMILY [facility] Other Start: 02-12-2023 End: 02-12-2023 ambulatory Tondra Mapus Other [employer] Other Start: 02-12-2023 Nursing evaluation o f patient and report Tondra Mapus [facility] Start: 01-24-2023 End: 01-24-2023 ambulatory Tondra Mapus Other [employer] Other Start: 01-24-2023 Telephone encounter Tondra Mapus [facility] Start: 10-30-2022 End: 10-30-2022 ambulatory Tondra Mapus Other [employer] Other Start: 10-30-2022 Telephone encounter Tondra Mapus [facility] Start: 10-22-2022 End: 10-22-2022 ambulatory Aziz Bakhous Other [employer] Other Start: 10-22-2022 Office outpatient vi sit 25 minutes Aziz Bakhous [facility] Start: 10-16-2022 ambulatory ANIKA MARSMER Facility: Start: 08-20-2022 End: 08-20-2022 ambulatory Tondra Mapus Other [employer] Other Start: 08-20-2022 Telephone encounter Tondra Mapus [facility] Start: 08-19-2022 (DM) Diabetes Tondra Mapus [facility] Start: 08-19-2022 End: 08-19-2022 ambulatory Tondra Mapus Other [employer] Other Start: 08-02-2022 End: 08-02-2022 ambulatory Tondra Mapus Other [employer] Other Start: 08-02-2022 Telephone encounter Tondra Mapus [facility] Start: 05-30-2022 End: 05-30-2022 ambulatory Tondra Mapus Other [employer] Other Start: 05-30-2022 Telephone encounter Tondra Mapus Julisa [facility] Start: 05-01-2022 End: 05-01-2022 ambulatory Tondra Mapus Other [employer] Other Start: 05-01-2022 Telephone encounter Tondra Mapus Julisa [facility] Start: 04-01-2022 End: 04-01-2022 ambulatory Tondra Mapus Other [employer] Other Start: 04-01-2022 Telephone encounter Tondra Mapus [facility] Start: 02-27-2022 (DM) Diabetes Tondra Mapus [facility] Start: 02-27-2022 End: 02-27-2022 ambulatory Tondra Mapus Other [employer] Other Start: 01-28-2022 End: 01-28-2022 ambulatory Becca Michael Other [employer] Other Start: 01-28-2022 Telephone encounter Becca Michael [facility] Start: 01-09-2022 End: 01-09-2022 ambulatory Tondra Mapus Other [employer] Other Start: 01-09-2022 Telephone encounter Tondra Mapus Julisa [facility] Start: 12-31-2021 End: 12-31-2021 ambulatory Tondra Mapus Other [employer] Other Start: 12-31-2021 Telephone encounter Tondra Mapus Fir [facility] Start: 12-17-2021 End: 12-17-2021 ambulatory Tondra Mapus Other [employer] Other Start: 12-17-2021 Telephone encounter Tondra Mapus Fir [facility] Start: 11-25-2021 End: 11-25-2021 ambulatory Tondra Mapus Other [employer] Other Start: 11-25-2021 Telephone encounter Tondra Mapus [facility] Start: 11-02-2021 (FCCC INJ) FCCC Injection Marixa Fitt [facility] Start: 11-02-2021 End: 11-02-2021 ambulatory Marixa Fitt Other [employer] Other Start: 10-30-2021 End: 10-31-2021 ambulatory ANIKA ELAINE Facility:[facility] Start: 10-26-2021 End: 10-26-2021 ambulatory Tondra Mapus Other [employer] Other Start: 10-26-2021 Telephone encounter Tondra Mapus [facility] Start: 10-23-2021 End: 10-23-2021 ambulatory Aziz Bakhous Other [employer] Other Start: 10-23-2021 Office outpatient vi sit 15 minutes Aziz Bakhous [facility] Start: 10-22-2021 End: 10-22-2021 ambulatory Tondra Mapus Other [employer] Other Start: 10-22-2021 Telephone encounter Tondra Mapus Fir [facility] Start: 09-10-2021 End: 09-10-2021 ambulatory Tondra Mapus Other [employer] Other Start: 09-10-2021 Telephone encounter Chester Lin [facility] Start: 05-23-2021 (DM) Diabetes Chester Lin [facility] Start: 05-23-2021 End: 05-23-2021 ambulatory Chester Lin Other [facility] [employer] Other Procedures Date Procedure Procedure Detail Performing Clinician Start: 09-01-2023 Needle biopsy FOLDER GLUER OPERATOR-C Charity Tapia Work Phone: Start: 08-21-2023 Prothrombin time Jobst Service Work Phone: Start: 07-30-2023 Prothrombin time Jobst Service Work Phone: Start: 07-30-2023 Ecg routine ecg w/le ast 12 lds w/i&r Tr Jimenez HOSPICE OFFICE COORDINATOR-SNUFF PACK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 Work Phone: Start: 07-30-2023 Follow-up visit [...] w/le ast 12 lds w/i&r Tr Jimenez HOSPICE OFFICE COORDINATOR-SNUFF PACK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 Work Phone: Start: 05-26-2023 Prothrombin time Jobst Service Work Phone: Start: 05-21-2023 Prothrombin time Jobst Service Work Phone: Start: 05-09-2023 Adult depression scr eening assessment [facility] 1 Start: 02-14-2014 Colonoscopy [facility] 1 Plan of Treatment Date Care Activity Detail Author Start: 07-29-2024 Adult BMI Screening Adult BMI Screen ing [facility] Start: 07-29-2024 Tobacco Screening Tobacco Screening [facility] Start: 06-17-2024 Adult BMI Screening Adult BMI Screen ing [facility] Start: 06-17-2024 Tobacco Screening Tobacco Screening [facility] Start: 05-28-2024 Adult BMI Screening Adult BMI Screen ing [facility] Start: 05-28-2024 Tobacco Screening Tobacco Screening [facility] Start: 05-10-2024 Adult BMI Screening Adult BMI Screen ing [facility] Start: 05-09-2024 Depression Screening Depression Scre ening [facility] Start: 05-09-2024 Tobacco Screening Tobacco Screening [facility] Start: 01-18-2024 Influenza vaccination Influenza Vacc ine [facility] Start: 10-27-2023 End: 10-27-2023 Patient encounter procedure 10/27/2023 2:45 PM EDT [facility] [address] [place] [address] Anita Mccoy MD [address] [place] [address] [facility] Physicians Pulmonary/Sleep Medicine Start: 09-16-2023 End: 09-16-2023 Follow-up encounter 09/16/2023 1:30 PM EDT Follow Up Anticoagulation [facility] Medication Therapy Management [address] [place] [address] [facility] Med[facility] Therapy [facility] Start: 09-01-[address] [facility] Start: 09-01-2023 CT guided biopsy [facility] Start: 09-01-[address] guided biopsy [facility] Start: 08-20-2023 End: 08-20-2023 Follow-up encounter 08/20/2023 11:00 AM EDT Follow Up Anticoagulation [facility] Medication Therapy Management [address] [place] [address] [facility] Med[facility] Therapy Management Start: 07-30-2023 End: 07-30-2023 Patient encounter procedure 07/30/2023 12:30 PM EDT Office Visit [facility] [address] [place] [address] Cole Krishnan MD [address] [place] [id number] Tr Jimenez, HOSPICE OFFICE COORDINATOR-SNUFF PACK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 [address] [place], [place] [id number] [facility] Start: 07-30-2023 End: 07-30-2023 Follow-up encounter 07/30/2023 11:30 AM EDT Follow Up Anticoagulation [facility] Medication Therapy Management [address] [place] [place] [address] [facility] Med[facility] Therapy Management Start: 07-18-2023 End: 07-18-2023 Follow-up encounter 07/18/2023 1:15 PM EST Follow Up Anticoagulation [facility] Medication Therapy Management [address] [place] [address] [facility] Med[facility] Therapy Management Start: 07-10-2023 End: 07-10-2023 Follow-up encounter 07/10/2023 1:15 PM EST Follow Up Anticoagulation [facility] Medication Therapy Management [address] [place] [address] [facility] Therapy [facility] Start: 07-02-2023 End: 07-02-2023 Patient encounter procedure 07/02/2023 1:00 PM EST Appointment [facility] - Pulmonary Function [address] [place] [address] Anita Mccoy MD [address] [place] [address] [facility] - Pulmonary Function Start: 06-20-2023 End: 06-20-2023 Follow-up encounter 06/20/2023 1:15 PM EST Follow Up Anticoagulation [facility] Medication Therapy Management [address] [place] [address] [facility] Med[facility] Therapy [facility] Start: 06-17-2023 End: 06-17-2023 Patient encounter procedure 06/17/2023 1:00 PM EST Office Visit [facility] [address] [address] Iona Delarosa MD [address] [place] [address] [facility] Start: 06-17-2023 End: 06-17-2023 Follow-up encounter 06/17/2023 12:30 PM EST Follow Up Anticoagulation [facility] Medication Therapy Management [address] [facility] [address] [facility] Med[facility] Therapy Management Start: 06-10-2023 End: 06-10-2023 Follow-up encounter 06/10/2023 2:30 PM EST Follow Up Anticoagulation [facility] Medication Therapy Management [address] [place] [address] [facility] Therapy [facility] Start: 06-05-2023 End: 06-05-2023 Follow-up encounter 06/05/2023 11:45 AM EST Follow Up Anticoagulation [facility] Medication Therapy Management [address] [place] [address] [facility] Therapy Management Start: 06-04-2023 End: 05-28-2024 Basic metabolic 2000 panel - Serum or Plasma Basic Metabolic Panel Lab Routine Benign hypertensive heart disease without congestive heart failure Expected: 06/04/2023 (Approximate), Expires: 05/28/2024 [facility] Comment on above: Expected: 06/04/2023 (Approximate), Expires: 05/28/2024 Start: 06-02-2023 End: 06-02-2023 Follow-up encounter 06/02/2023 1:15 PM EST Follow Up Anticoagulation [facility] Medication Therapy Management [address] [place] [address] [facility] Medication Therapy Management Start: 05-28-2023 End: 05-28-2024 Wireless Tele[facility] (In Office) [facility] Work Phone: Comment on above: Expected: 05/28/2023 , Expires: 05/28/2024 Start: 05-28-2023 End: 05-28-2023 Patient encounter procedure 05/28/2023 1:00 PM EST Office Visit [facility] [address] [address] Tr Jimenez, HOSPICE OFFICE COORDINATOR-SNUFF PACK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 [address] [place] [phone] [facility] Start: 05-26-2023 End: 05-26-2023 Follow-up encounter 05/26/2023 1:45 PM EST Follow Up Anticoagulation [facility] Medication Therapy Management [address] [place] [address] [facility] Med[facility] Therapy Management Start: 02-14-2017 Screening for malign ant neoplasm of colon Colonoscopy [facility] Start: 2005 Fall Risk Screening Fall Risk Screen ing [facility] Start: 1990 Administration of varicella zoster vaccine Zoster (Shingles) Vaccine (1 of 2) [facility] [employer] Start: 1959 DTaP,Tdap and Td Vaccines (1 - Tdap) DTaP,Tdap and Td Vaccines (1 - Tdap) [facility] Start: 1958 Adult BMI Follow Up Plan Adult BMI F ollow Up Plan [facility] [employer] Start: 1940 Medicare Annual Well ness Visit Medicare Annual Wellness Visit [facility] aPTT in Platelet poo r plasma by Coagulation assay [facility] CT guided biopsy [facility] End: 05-28-2024 Hepatic function 2000 panel - Serum or Plasma Hepatic function panel Lab Routine jail current use of amiodarone 1 Occurrences starting 05/28/2023 until 05/28/2024 [facility] Comment on above: 1 Occurrences starti ng 05/28/2023 until 05/28/2024 Patient Education [facility] Work Phone: Renal function 1999 panel - Serum or Plasma [facility] Renal function 1999 panel - Serum or Plasma [facility] Renal function 1999 panel - Serum or Plasma [facility] Renal function 1999 panel - Serum or Plasma [facility] Renal function 1999 panel - Serum or Plasma [facility] Renal function 1999 panel - Serum or Plasma [facility] End: 05-28-2024 Thyroid profile includes TSH FT4 Thyroid profile includes TSH FT4 Lab Routine jail current use of amiodarone 1 Occurrences starting 05/28/2023 until 05/28/2024 [facility] Comment on above: 1 Occurrences starti ng 05/28/2023 until 05/28/2024 [facility] Immunizations Immunization Date Immunization Notes Care Provider Fa cility 02-19-2023 Covid-19, Mrna, Lnp- s, Pf,anthony-sucrose,30 Mcg/0.3ml Fall23 [facility] 1 [facility] 02-19-2023 Influenza Vaccine, Quadrivalent, Adjuvanted [facility] 1 [facility] 02-19-2023 RSV, bivalent, prote in subunit RSVpreF, diluent reconstituted, 0.5 mL, PF [facility] 1 [facility] 02-19-2023 influenza virus vaccine, unspecified formulation [facility] 1 [facility] 03-11-2022 influenza virus vaccine, unspecified formulation [facility] [facility] 05[facility]2021 influenza virus vaccine, unspecified formulation Pm 1 [facility] 03-12-2021 Influenza, High-dose , Quadrivalent Pmh 1 [facility] 08-04-2020 COVID-19 Vaccine Zoya - Documentation Purposes Only Chester Lin Other [facility] 02-09-2020 Influenza, High-dose , Quadrivalent Pmh 1 [facility] 02-01-2020 influenza virus vaccine, unspecified formulation P[facility] 1 [facility] 01-21-2018 influenza, high dose seasonal, preservative-free Pmh 1 [facility] 06-19-2017 pneumococcal conjuga te vaccine, 13 valent Pmh 1 [facility] 03-19-2017 influenza virus vaccine, unspecified formulation Pmh 1 [facility] 03-19-2016 seasonal influenza, intradermal, preservative free P[facility] 1 [facility] 02-06-2016 influenza, seasonal, injectable, preservative free Pmh 1 [facility] 03-31-2015 pneumococcal conjuga te vaccine, 13 valent Pmh 1 [facility] 03-28-2015 influenza, seasonal, injectable Chester Lin Other [employer] Other 03-19-2015 pneumococcal polysaccharide vaccine, 23 valent Pmh 1 [facility] 02-14-2015 influenza, seasonal, injectable P[facility] 1 [facility] 03-31-2014 influenza, seasonal, injectable Pmh 1 [facility] 03-04-2012 influenza virus vaccine, whole virus Pmh 1 [facility] 03-04-2011 influenza virus vaccine, whole virus Pm 1 [facility] Payers Date Payer Category Payer Self-pay [id number] 2017 Unknown [id number] 2015 Medicare ANTHEM MEDICARE ANTHEM MEDICARE ADVANTAGE [id number] 2015-Present [phone] [address] [place] [address] [id number] .[id number] 1959 Medicare [id number] 2.16.840.1.450417.19 1940 Unknown [id number] 2.16.840.1.393917.3.579.2.593 1940 Unknown [id number] 2.16.840.1.838219.3.579.2.593 1940 Unknown [id number] 2.16.840.1.598139.3.579.2.125 9 1940 Unknown [id number] 2.16.840.1.087293.3.579.2.125 9 1940 Unknown [id number] 2.16.840.1.769481.3.579.2.128 6 1940 Unknown [id number] 2.16.840.1.807068.3.579.2.128 6 1940 Unknown [id number] 2.16.840.1.490935.3.579.2.128 6 1940 Unknown [id number] 2.16.840.1.613930.3.579.2.128 6 1940 Unknown [id number] 2.16.840.1.588291.3.579.2.128 6 1940 Unknown [id number] 2.16.840.1.766687.3.579.2.128 6 1940 Unknown [id number] 2.16.840.1.622541.3.579.2.128 6 1940 Unknown [id number] 2.16.840.1.126559.3.579.2.128 1940 Unknown [id number] 2.16.840.1.509627.3.579.2.128 1940 Unknown [id number] 2.16.840.1.172124.3.579.2.128 1940 Unknown [id number] 2.16.840.1.384465.3.579.2.128 1940 Unknown [id number] 2.16.840.1.600560.3.579.2.128 1940 Unknown [id number] 2.16.840.1.369059.3.579.2.128 1940 Unknown [id number] 2.16.840.1.608088.3.579.2.128 1940 Unknown [id number] 2.16.840.1.295631.3.579.2.128 1940 Unknown [id number] 2.16.840.1.833248.3.579.2.128 1940 Unknown [id number] 2.16.840.1.616206.3.579.2.128 1940 Unknown [id number] 2.16.840.1.810183.3.579.2.128 1940 Unknown [id number] 2.16.840.1.171423.3.579.2.128 1940 Unknown [id number] 2.16.840.1.262122.3.579.2.128 1940 Unknown [id number] 2.16.840.1.001608.3.579.2.128 1940 Unknown [id number] 2.16.840.1.739335.3.579.2.128 1940 Unknown [id number] 2.16.840.1.243469.3.579.2.128 6 1940 Unknown [id number] 2.16.840.1.890061.3.579.2.128 6 1940 Unknown [id number] 2.16.840.1.698378.3.579.2.128 6 1940 Unknown [id number] 2.16.840.1.432141.3.579.2.128 6 1940 Unknown [id number] 2.16.840.1.331736.3.579.2.128 6 Unknown Regular Auto/Liability [id number] Unknown [id number] 2.16840.1.989744.3.579.2.531 Unknown [id number] 2.16840.1.641701.3.579.2.531 Social History Date Type Detail Facility Unknown if ever smoked [employer] Other Start: 06-29-2020 End: 05-09-2023 Sex Assigned At [employer] Other Start: 03-11-2022 End: 09-23-2023 Tobacco smoking status NHIS Never smoked tobacco [facility] Start: 03-11-2022 Tobacco use and exposure Smokeless tobacco non-user [facility] Start: 05-09-2023 End: 07-30-2023 Alcohol intake Current non-drinker of alcohol (finding) [facility] Start: 06-29-2020 End: 05-09-[address] [facility] tem How often to you hav e a drink containing alcohol? Never [facility] How many standard drinks containing alcohol do you have on a typical day? Patient does not drink [facility] Start: 1940 Sex Assigned At Not on file P [facility] Start: 1940 Sex Assigned At Female F [facility] Medical Equipment Procedure Code Equipment Code [...] [facility] - 08/21/2023 1:45 PM EDZachery Schumacher, [facility] 08/21/2023 1:45 PM Ross Jimenez, [facility] - 07/30/2023 12:30 PM Jaime Schumacher, [facility] - 07/30/2023 11:30 AM EDT Note Date & Type Note Facility 08-21-2023 History of Presen t illness Narrative 15 minute qwsq-oz-lyly follow-up anticoagulation appointment. INR performed in office [...] Upcoming procedures: YES Kidney biopsy on 09/01/23; [facility] Dr. Sarmiento Patient [...] worsens. Alie Schumacher [facility] 08/21/[address] Sarmiento office ([phone]; [facility]) to inquire about procedural needs. LM requesting return call to clarify holding needs for biopsy on 09/01/23. Pending holding needs, clearance to hold may be needed by [facility]. Patient dx: Afib with CHADsVASc=4. Bridging not recommended. 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 Alie Schumacher, PharmD, [facility] August 21, 2023 1:49 PM Alie Schumacher [facility] 08/21/23 1350 documented in this encounter [facility] 07-30-2023 History of Presen t illness Narrative Margie Kent Mauricio Date of visit: 07/30/2023 Date of : 1940 Age: 83 y.o. Patient Active Problem List Diagnosis COPD with acute exacerbation [place] Bigeminy Benign hypertensive heart disease without congestive heart failure Obstructive sleep apnea syndrome Shortness of breath Abnormal result of cardiovascular function study Class 3 severe obesity in adult ([facility]) Ventricular premature beats 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 ([facility] PAF (paroxysmal 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) ([facility]) Sinus pause Allergies Allergen Reactions Janeth Inhibitors [...] 1 puff before bedtime. 60 each 6 gifted2youE 2 SENSOR kit USE DIRECTED CHANGE EVERY [...] seen by EP service upon transfer to [facility] from [place] in April. There was reports of post-conversion pause approximately 6 seconds while at [place] though records were not obtainable for review. [...] kidney disease COPD (chronic obstructive pulmonary disease) ([facility]) DM type 2 (diabetes mellitus, type 2) ([facility]) HTN (hypertension) Hyperlipidemia 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 ([facility]) 09/03/2021 Hypothyroid KELECHI (obstructive sleep apnea) No [...] Reorder IMPRESSIONS/PLAN 1. PAF (paroxysmal 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) ([facility]) - amiodarone (PACERONE) 200 mg tablet; Take [...] PCP: RASHAD MERCHANT Referring Physician: RASHAD Cabrera [address] [place] [address] RASHAD Duff 07/30/23 1322 [facility] History of Presen t illness Narrative 15 minute ujzq-zs-hqos follow-up anticoagulation appointment. INR performed in office [...] RPH 07/30/23 1153 documented in this encounter [facility] 07-29-2023 Miscellaneous Notes Called patient to remind them to bring their most current copy of their medication list with them to their appt. Patient verbalizes understanding. documented in this encounter [facility] 07-29-2023 Telephone encounter Note Called patient to remind them to bring their most current copy of their medication list with them to their appt. Patient verbalizes understanding. [facility] 07-21-2023 History of Presen t illness Narrative Albuterol refill sent to [facility] per pt request. documented in this encounter [facility] 07-18-2023 History of Presen t illness Narrative 15 minute rbps-mk-gwuy follow-up anticoagulation appointment. INR performed in office [...] Patient instructed to continue warfarin 2.5 mg Sun/Fri/ and 1.25 mg AOD. Check INR in [...] RPH 07/18/23 1318 documented in this encounter [facility] 07-10-2023 History of Presen t illness Narrative 15 minute mtuz-qc-xdtc follow-up anticoagulation appointment. INR performed in office [...] RPH 07/10/23 1328 documented in this encounter [facility] 06-26-2023 History of Presen t illness Narrative 15 minute yrsd-js-http follow-up anticoagulation appointment. INR performed in office [...] RPH 06/26/23 1315 documented in this encounter [facility] 06-17-2023 History of Presen t illness Narrative Margie Kent Mauricio Date of visit: 06/17/2023 Date of : 1940 Age: 82 y.o. Patient Active Problem List Diagnosis COPD with acute exacerbation ([facility] Bigeminy Benign hypertensive heart disease without congestive heart failure Obstructive sleep apnea syndrome Shortness of breath Abnormal result of cardiovascular function study Class 3 severe obesity in adult ([facility]) Ventricular premature beats 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 ([facility] PAF (paroxysmal 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) ([facility]) Sinus pause Allergies Allergen Reactions Janeth Inhibitors [...] monitor which she is going to wear [employer]. She is on long-term oxygen she is [...] kidney disease COPD (chronic obstructive pulmonary disease) ([facility]) DM type 2 (diabetes mellitus, type 2) ([facility]) HTN (hypertension) Hyperlipidemia 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 ([facility]) 09/03/2021 Hypothyroid KELECHI (obstructive sleep apnea) No [...] RASHAD MERCHANT Referring Physician: RASHAD Cabrera [address] [place] [address] documented in this encounter [employer] 06-17-2023 History of Presen t illness Narrative 15 minute obwi-gn-ipow follow-up anticoagulation appointment. INR performed in office [...] RPH 06/17/23 1232 documented in this encounter [facility] 06-16-2023 Miscellaneous Notes Called patient to remind them to bring their most current copy of their medication list with them to their appt. Patient verbalizes understanding. documented in this encounter [facility] 06-16-2023 Telephone encounter Note Called patient to remind them to bring their most current copy of their medication list with them to their appt. Patient verbalizes understanding. [facility] 06-10-2023 History of Presen t illness Narrative 15 minute aglj-zg-jpju follow-up anticoagulation appointment. INR performed in office [...] RPH 06/10/23 1428 documented [facility] History of Presen t illness Narrative 15 minute nnnp-hc-oqww follow-up anticoagulation appointment. INR performed in office [...] but remains elevated. Patient instructed to hold 1/18, then start new plan. Patient has had 13.75 mg in the past 7 days. We will target 11.25 mg over the next 7 days and adjust weekly dosing based on response. Plan: Patient instructed to hold warfarin 18, then start new plan of 1.25 mg [...] RPH 06/05/23 1132 documented in this encounter [facility] 06-03-2023 Evaluation note Encounter Date Diagnosis Assessment Notes May, Edema (ICD-10 - R60.9) [employer] Other 01-15-2024 History of Present illness Narrative* Alie Schumacher RPH - 06/02/2023 1:15 PM EST 15 minute rjik-gx-srwi follow-up anticoagulation appointment. INR performed in office [...] worsens. Alie Schumacher [facility] 06/02/23 1424 documented in this encounter[facility] CenterEupraxia Pharmaceuticals [id number] History of Present illness Narrative* Tr Jimenez APRN-SNUFF PACK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 - 05/28/2023 1:00 PM EST Margie Martínez Date of visit: 05/28/2023 Date of : 1940 Age: 82 y.o. Patient Active Problem List Diagnosis COPD with acute exacerbation ([facility] Bigeminy Benign hypertensive heart disease without congestive heart failure Obstructive sleep apnea syndrome Shortness of breath Abnormal result of cardiovascular function study Class 3 severe obesity in adult ([facility]) Ventricular premature beats 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 ([facility]) PAF (paroxysmal 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) ([facility]) Sinus pause Allergies Allergen Reactions Janeth Inhibitors [...] Units total) by mouth in the morning. [employer] 2 SENSOR kit USE DIRECTED CHANGE [...] states that she was hospitalized initially at [place] for symptomatic 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. Upon resolution, she was discharged home though recurrent episodes warranted repeat visit. She was then seen at [facility] where she had episodes of conversion pauses reported. She was transferred then to [facility] evaluated by EP team. Patient was placed [...] kidney disease COPD (chronic obstructive pulmonary disease) ([facility]) DM type 2 (diabetes mellitus, type 2) ([facility]) HTN (hypertension) Hyperlipidemia 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 ([facility]) 09/03/2021 Hypothyroid KELECHI (obstructive sleep apnea) [...] tablet IMPRESSIONS/PLAN 1. PAF (paroxysmal 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) ([facility]) - POCT EKG - Wireless Telemetry (In Office); Future 2. Ventricular premature beats - POCT EKG 3. Sinus pause - Wireless Telemetry (In Office); Future 4. Benign hypertensive heart disease without congestive heart failure - Basic Metabolic Panel; Future 5. jail current use of amiodarone - Thyroid profile [...] MERCHANT Referring Physician: RASHAD Cabrera [address] [place] [address] RASHAD Duff 05/28/23 0879 [facility] Miscellaneous Notes* Telephone Encounter - Elza Schilling CMA - 05/27/2023 9:42 AM EST Called patient to remind them to bring their most current copy of their medication list with them to their appt. Patient verbalizes understanding. documented in this encounterMer[facility] CenterEupraxia Pharmaceuticals [id number] Telephone encounter Note* Telephone Encounter - Elza Schilling CMA - 05/27/2023 9:42 AM EST Called patient to remind them to bring their most current copy of their medication list with them to their appt. Patient verbalizes understanding. [facility] [id number] History of Present illness Narrative* Alie Schumacher, [facility] - 05/26/2023 1:45 PM EST 15 minute dhqa-ss-cevc follow-up anticoagulation appointment. INR performed in office [...] 7% (16.25 mg weekly). Patient is unableto spanish moss picker new script until Friday, therefore instructed [...] worsens. Alie Schumacher [facility] 05/26/23 1409 documented in this encounterMercy [facility] CenterNext 1 Interactive [facility] [id number] History of Present illness Narrative* Aylin Chahal [facility] - 05/21/2023 11:30 AM EST 30 minute dkko-ff-ekiq follow-up anticoagulation appointment. INR performed in office [...] Chahal RPH 05/21/23 1143 [facility] Evaluation note* Encounter Date Diagnosis Assessment Notes Treatment Notes Treatment Clinical Notes Apr, Nephritis (ICD-10 - N05.9) [employer] Other [id number] Evaluation note* Encounter Date Diagnosis Assessment Notes [...] check iron, folate and VB12 storage studies [employer] Other 12-04-2023 Evaluation note* Encounter Date Diagnosis Assessment Notes Treatment Notes Treatment Clinical Notes Apr, Edema (ICD-10 - R60.9) [employer] Other 10-04-2023 Evaluation note* Encounter Date Diagnosis [...] diabetes medication issues. 6. 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 Keep f/u with nephrology Feb, BMI 40.0-44.9, adult (ICD-10 - Z68.41) [employer] Other 09-27-2023 Evaluation note* Encounter Date Diagnosis Assessment Notes Treatment Notes Treatment Clinical Notes Jan, Type 2 diabetes mellitus with diabetic chronic kidney disease (ICD-10 - E11.22) Pt here for appointment today with spouse, for [email or web address] training. [email or web address] training discussed, instructed on use and application. Patient brought in her own [email or web address] reader which displays connected to a computer on the screen. Pt contacted [employer] for reader replacement. Pt also brought in new reader. New reader set up with pt. Instructed pt to send old reader back to [employer]. Pt states she will send old reader back. Informed pt the old reader USB port may be damaged. Pt has 12 days left of current sensor she is wearing. Instructed pt when she applies new sensor to scan with new reader. Pt states understanding. Reviewed with patient testing glucose with Kusum priscilla, hs explained how to enter insulin dosing/notes into [employer]. 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 Keep f/u with nephrology Aug, BMI 39.0-39.9,adult (ICD-10 - Z68.39) 11 pound weight loss from last visit, continue with weight loss efforts [employer] Other 10-12-2022 Evaluation note* Encounter Date Diagnosis Assessment Notes Treatment Notes Treatment Clinical Notes Feb, Dietary counseling and surveillance (ICD-10 - Z71.3) Maintaining a healthful weight material was printed see above Feb, Type 2 diabetes mellitus (ICD-10 - E11.9) Type 2 diabetes material was printed 1. Controlled, Type 2 diabetes with A1c of 6.1% 2. Blood glucose levels stable. According to [employer] cgm download 02/14/2022-02/28/20 22 Avg glucose 130. 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-10 - Z79.4) [...] E11.649) Hypoglycemia material was printed see above [employer] Other 09-12-2022 Evaluation note* Encounter Date Diagnosis Assessment Notes Treatment Notes Treatment Clinical Notes Jan, Edema (ICD-10 - R60.9) [employer] Other 08-24-2022 Evaluation note* Encounter Date Diagnosis Assessment Notes Treatment Notes Treatment Clinical Notes Dec, Type 2 diabetes mellitus with diabetic chronic kidney disease (ICD-10 - E11.22) Dec, Type 2 diabetes mellitus (ICD-10 - E11.9) [employer] Other 06-17-2022 Evaluation note* Encounter Date Diagnosis Assessment Notes Treatment Notes Treatment Clinical Notes Oct, Vitamin B 12 deficiency (ICD-10 - E53.8) [employer] Other 06-07-2022 Evaluation note* Encounter Date Diagnosis [...] arthritis and sleep apnea has been addressed. [employer] Other 06-06-2022 Evaluation note* Encounter Date Diagnosis Assessment Notes Treatment Notes Treatment Clinical Notes Oct, Type 2 diabetes mellitus with diabetic chronic kidney disease (ICD-10 - E11.22) [employer] Other 04-25-2022 Evaluation note* Encounter Date Diagnosis Assessment Notes Treatment Notes Treatment Clinical Notes Aug, Type 2 diabetes mellitus with diabetic chronic kidney disease (ICD-10 - E11.22) [employer] Other 01-05-2022 Evaluation note* Encounter Date Diagnosis Assessment Notes Treatment Notes Treatment Clinical Notes May, Dietary counseling and surveillance (ICD-10 - Z71.3) Maintaining a healthful weight material was printed see above May, Type 2 diabetes mellitus (ICD-10 - E11.9) Type 2 diabetes material was printed 1. Controlled, Type 2 diabetes with A1c of 5.7% 2. Blood glucose levels stable. According to [employer] 2 cgm download 05/10/2021-05/23/2021 Avg glucose 128. [...] I10) About hypertension material was printed May, jail current use of insulin (ICD-10 - Z79.4) [...] E11.649) Hypoglycemia material was printed see above [employer] Other 01-17-2021 History general Narrative - Reported* [...] History SEE ABOVE Hospitalization History COPD 07/08 [employer] Other Evaluation noteNo InformationNosaint francis [facility] Other Evalusnerk note* Diagnosis PAF (paroxysmal 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) ([facility] Primary Atrial fibrillation [facility] Diagnosis PAF (paroxysmal 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) (CMS-HCC)- Primary Atrial fibrillation [facility] Diagnosis PAF (paroxysmal 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) (CMS-HCC)- Primary Atrial fibrillation Ventricular premature beats Other premature beats Sinus pause Benign hypertensive heart disease without congestive heart failure Benign hypertensive heart disease without heart failure 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 documented [facility] this [facility] Diagnosis PAF (paroxysmal 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) (CMS-HCC)- Primary Atrial fibrillation [facility]* Diagnosis PAF (paroxysmal 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) (CMS-HCC)- Primary Atrial fibrillation [facility]* Diagnosis PAF (paroxysmal 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) (CMS-HCC)- Primary Atrial fibrillation Benign hypertensive heart disease without congestive heart failure Benign hypertensive heart disease without heart failure 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) Shortness of breath COPD with acute exacerbation ([facility]) documented [facility]* Diagnosis PAF (paroxysmal 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) ([facility] Primary Atrial fibrillation documented in this encounter [facility] System[facility] noteNo assessment information available [facility] Work Phone: Evaluloghz note* Diagnosis PAF (paroxysmal 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) ([facility] Primary Atrial fibrillation documented [facility]* Diagnosis Shortness of breath Chronic obstructive pulmonary disease, unspecified COPD type ([facility]) documented in this encounter [facility]* Diagnosis PAF (paroxysmal 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) ([facility] Primary Atrial fibrillation Hyperlipidemia, unspecified hyperlipidemia type Benign hypertensive heart disease without congestive heart failure Benign hypertensive heart disease without heart failure [facility] Diagnosis Onset Date Resolution Status Anemia acute BMI 50.0-59.9, adult acute Edema acute Hyperlipidemia acute [id number] acute Stage 3b chronic kidney disease (CKD) acute Type 2 diabetes mellitus wit h diabetic chronic kidney disease acute [facility] Work Phone: Evaluation note* Diagnosis Onset Date Resolution Status Anemia acute BMI 50.0-59.9, adult acute Edema acute Hyperlipidemia acute [id number] acute Stage 3b chronic kidney disease (CKD) acute Type 2 diabetes mellitus wit h diabetic chronic kidney disease acute Diabetes acute Dietary counseling and surveillance acute HTN (hypertension) acute Hyperlipidemia acute Vitamin B 12 deficiency [facility] Work Phone: Evaluation note* Diagnosis Onset Date Resolution Status Anemia acute BMI 50.0-59.9, adult acute Edema acute Hyperlipidemia acute [id number] acute Stage 3b chronic kidney disease (CKD) acute Type 2 diabetes mellitus wit h diabetic chronic kidney disease acute BMI 40.0-44.9, adult acute Diabetes acute Dietary counseling and surveillance acute HTN (hypertension) acute Hyperlipidemia acute Vitamin B [address] [facility] Work Phone: Evaluation note* Diagnosis Onset Date Resolution Status Anemia acute BMI 50.0-59.9, adult acute Edema acute Hyperlipidemia acute [id number] acute Stage 3b chronic kidney disease (CKD) acute Type 2 diabetes mellitus wit h diabetic chronic kidney disease acute BMI 40.0-44.9, adult acute Diabetes acute Dietary counseling and surveillance acute HTN (hypertension) acute Hyperlipidemia acute Vitamin B 12 deficiency acut e Anemia acute Edema acute Fibrillary glomerulonephritis acute Hyperparathyroidism acute [id number] acute Stage 3b chronic kidney disease (CKD) acute Type 2 diabetes mellitus wit h diabetic chronic kidney disease acute [facility] Work Phone: Evaluation note* Diagnosis Onset Date Resolution Status Anemia acute BMI 50.0-59.9, adult acute Edema acute Hyperlipidemia acute [id number] acute Stage 3b chronic kidney disease (CKD) acute Type 2 diabetes mellitus wit h diabetic chronic kidney disease acute BMI 40.0-44.9, adult acute Diabetes acute Dietary counseling and surveillance acute HTN (hypertension) acute Hyperlipidemia acute Vitamin B 12 deficiency acut e Anemia acute Edema acute Fibrillary glomerulonephritis acute Hyperparathyroidism acute [id number]-[id number] acute Stage 3b chronic kidney disease (CKD) acute Type 2 diabetes mellitus wit h diabetic chronic kidney disease acute Anemia acute Edema acute Fibrillary glomerulonephritis acute Hyperparathyroidism acute [id number] acute Stage 3b chronic kidney disease (CKD) acute Type 2 diabetes mellitus wit h diabetic chronic kidney disease acute [facility] Work Phone: Evaluation note* Diagnosis Onset Date Resolution Status Anemia acute BMI 50.0-59.9, adult acute Edema acute Hyperlipidemia acute [id number] acute Stage 3b chronic kidney disease (CKD) acute Type 2 diabetes mellitus wit h diabetic chronic kidney disease acute BMI 40.0-44.9, adult acute Diabetes acute Dietary counseling and surveillance acute HTN (hypertension) acute Hyperlipidemia acute Vitamin B 12 deficiency acut e Anemia acute Edema acute Fibrillary glomerulonephritis acute Hyperparathyroidism acute [id number] acute Stage 3b chronic kidney disease (CKD) acute Type 2 diabetes mellitus wit h diabetic chronic kidney disease acute Anemia acute Edema acute Fibrillary glomerulonephritis acute Hyperparathyroidism acute ALW-[id number] acute Stage 3b chronic kidney disease (CKD) acute Type 2 diabetes mellitus wit h diabetic chronic kidney disease acute Anemia acute Edema acute Fibrillary glomerulonephritis acute Hyperparathyroidism acute [id number] acute Stage 3b chronic kidney disease (CKD) acute Type 2 diabetes mellitus wit h diabetic chronic kidney disease acute [facility] Work Phone: Evaluation note* Diagnosis Onset Date Resolution Status Anemia acute BMI 50.0-59.9, adult acute Edema acute Hyperlipidemia acute [id number] acute Stage 3b chronic kidney disease (CKD) acute Type 2 diabetes mellitus wit h diabetic chronic kidney disease acute BMI 40.0-44.9, adult acute Diabetes acute Dietary counseling and surveillance acute HTN (hypertension) acute Hyperlipidemia acute Vitamin B 12 deficiency acut e Anemia acute Edema acute Fibrillary glomerulonephritis acute Hyperparathyroidism acute RFV-[id number] acute Stage 3b chronic kidney disease (CKD) acute Type 2 diabetes mellitus wit h diabetic chronic kidney disease acute Anemia acute Edema acute Fibrillary glomerulonephritis acute Hyperparathyroidism acute [id number]-[id number] acute Stage 3b chronic kidney disease (CKD) acute Type 2 diabetes mellitus wit h diabetic chronic kidney disease acute Anemia acute Edema acute Fibrillary glomerulonephritis acute Hyperparathyroidism acute [id number] acute Stage 3b chronic kidney disease (CKD) acute Type 2 diabetes mellitus wit h diabetic chronic kidney disease acute Anemia acute Edema acute Fibrillary glomerulonephritis acute Hyperkalemia acute Hyperparathyroidism acute [id number] acute Stage 3b chronic kidney disease (CKD) acute Type 2 diabetes mellitus wit h diabetic chronic kidney disease acute [facility] Work Phone: Evaluation note* Diagnosis Onset Date Resolution Status BMI 40.0-44.9, adult acute Diabetes acute Dietary counseling and surveillance acute HTN (hypertension) acute Hyperlipidemia acute Vitamin B 12 deficiency acut e Anemia acute Edema acute Fibrillary glomerulonephritis acute Hyperparathyroidism acute [id number] acute Stage 3b chronic kidney disease (CKD) acute Type 2 diabetes mellitus wit h diabetic chronic kidney disease acute Anemia acute Edema acute Fibrillary glomerulonephritis acute Hyperparathyroidism acute [id number] acute Stage 3b chronic kidney disease (CKD) acute Type 2 diabetes mellitus wit h diabetic chronic kidney disease acute Anemia acute Edema acute Fibrillary glomerulonephritis acute Hyperparathyroidism acute [id number]-[id number] acute Stage 3b chronic kidney disease (CKD) acute Type 2 diabetes mellitus wit h diabetic chronic kidney disease acute Anemia acute Edema acute Fibrillary glomerulonephritis acute Hyperkalemia acute Hyperparathyroidism acute [id number]-[id number] acute Stage 3b chronic kidney disease (CKD) acute Type 2 diabetes mellitus wit h diabetic chronic kidney disease acute Anemia acute Edema acute Fibrillary glomerulonephritis acute Hyperkalemia acute Hyperparathyroidism acute [id number] acute Stage 3b chronic kidney disease (CKD) acute Type 2 diabetes mellitus wit h diabetic chronic kidney disease acute [facility] Work Phone: Evaluation note* Diagnosis Onset Date Resolution Status Anemia acute Edema acute Fibrillary glomerulonephritis acute Hyperparathyroidism acute [id number]-[id number] acute Stage 3b chronic kidney disease (CKD) acute Type 2 diabetes mellitus wit h diabetic chronic kidney disease acute Anemia acute Edema acute Fibrillary glomerulonephritis acute Hyperparathyroidism acute [id number]-[id number] acute Stage 3b chronic kidney disease (CKD) acute Type 2 diabetes mellitus wit h diabetic chronic kidney disease acute Anemia acute Edema acute Fibrillary glomerulonephritis acute Hyperparathyroidism acute [id number]-[id number] acute Stage 3b chronic kidney disease (CKD) acute Type 2 diabetes mellitus wit h diabetic chronic kidney disease acute Anemia acute Edema acute Fibrillary glomerulonephritis acute Hyperkalemia acute Hyperparathyroidism acute [id number] acute Stage 3b chronic kidney disease (CKD) acute Type 2 diabetes mellitus wit h diabetic chronic kidney disease acute Anemia acute Edema acute Fibrillary glomerulonephritis acute Hyperkalemia acute Hyperparathyroidism acute [id number] acute Stage 3b chronic kidney disease (CKD) acute Type 2 diabetes mellitus wit h diabetic chronic kidney disease acute BMI 40.0-44.9, adult acute Diabetes acute Dietary counseling and surveillance acute HTN (hypertension) acute Hyperlipidemia acute Vitamin B 12 deficiency acut e [facility] Work Phone: Evaluation note* Diagnosis Onset Date Resolution Status Anemia acute Edema acute Fibrillary glomerulonephritis acute Hyperparathyroidism acute [id number] acute Stage 3b chronic kidney disease (CKD) acute Type 2 diabetes mellitus wit h diabetic chronic kidney disease acute Anemia acute Edema acute Fibrillary glomerulonephritis acute Hyperparathyroidism acute [id number] acute Stage 3b chronic kidney disease (CKD) acute Type 2 diabetes mellitus wit h diabetic chronic kidney disease acute Anemia acute Edema acute Fibrillary glomerulonephritis acute Hyperkalemia acute Hyperparathyroidism acute [id number] acute Stage 3b chronic kidney disease (CKD) acute Type 2 diabetes mellitus wit h diabetic chronic kidney disease acute Anemia acute Edema acute Fibrillary glomerulonephritis acute Hyperkalemia acute Hyperparathyroidism acute [id number]-[id number] acute Stage 3b chronic kidney disease (CKD) acute Type 2 diabetes mellitus wit h diabetic chronic kidney disease acute BMI 40.0-44.9, adult acute Diabetes acute Dietary counseling and surveillance acute HTN (hypertension) acute Hyperlipidemia acute Vitamin B 12 deficiency acut e Anemia acute Stage 3a chronic kidney disease (CKD) acute [facility] Work Phone: Evaluation note* Diagnosis Onset Date Resolution Status Anemia acute Edema acute Fibrillary glomerulonephritis acute Hyperparathyroidism acute [id number] acute Stage 3b chronic kidney disease (CKD) acute Type 2 diabetes mellitus wit h diabetic chronic kidney disease acute Anemia acute Edema acute Fibrillary glomerulonephritis acute Hyperkalemia acute Hyperparathyroidism acute [id number]-[id number] acute Stage 3b chronic kidney disease (CKD) acute Type 2 diabetes mellitus wit h diabetic chronic kidney disease acute Anemia acute Edema acute Fibrillary glomerulonephritis acute Hyperkalemia acute Hyperparathyroidism acute ANV-[id number] acute Stage 3b chronic kidney disease (CKD) acute Type 2 diabetes mellitus wit h diabetic chronic kidney disease acute BMI 40.0-44.9, adult acute Diabetes acute Dietary counseling and surveillance acute HTN (hypertension) acute Hyperlipidemia acute Vitamin B 12 deficiency acut e Anemia acute Stage 3a chronic kidney disease (CKD) acute [facility] Work Phone: Evaluation note* Diagnosis Onset Date Resolution Status Anemia acute Edema acute Fibrillary glomerulonephritis acute Hyperparathyroidism acute [id number] acute Stage 3b chronic kidney disease (CKD) acute Type 2 diabetes mellitus wit h diabetic chronic kidney disease acute Anemia acute Edema acute Fibrillary glomerulonephritis acute Hyperkalemia acute Hyperparathyroidism acute [id number]-[id number] acute Stage 3b chronic kidney disease (CKD) acute Type 2 diabetes mellitus wit h diabetic chronic kidney disease acute Anemia acute Edema acute Fibrillary glomerulonephritis acute Hyperkalemia acute Hyperparathyroidism acute [id number]-[id number] acute Stage 3b chronic kidney disease (CKD) acute Type 2 diabetes mellitus wit h diabetic chronic kidney disease acute BMI 40.0-44.9, adult acute Diabetes acute Dietary counseling and surveillance acute HTN (hypertension) acute Hyperlipidemia acute Vitamin B 12 deficiency acut e Anemia acute Stage 3a chronic kidney disease (CKD) acute Anemia acute Anemia of renal disease acut e Stage 3a chronic kidney disease (CKD) acute [facility] Work Phone: Evaluation note* Diagnosis Onset Date Resolution Status Anemia acute Edema acute Fibrillary glomerulonephritis acute Hyperkalemia acute Hyperparathyroidism acute [id number] acute Stage 3b chronic kidney disease (CKD) acute Type 2 diabetes mellitus wit h diabetic chronic kidney disease acute Anemia acute Edema acute Fibrillary glomerulonephritis acute Hyperkalemia acute Hyperparathyroidism acute [id number]-[id number] acute Stage 3b chronic kidney disease (CKD) acute Type 2 diabetes mellitus wit h diabetic chronic kidney disease acute BMI 40.0-44.9, adult acute Diabetes acute Dietary counseling and surveillance acute HTN (hypertension) acute Hyperlipidemia acute Vitamin B 12 deficiency acut e Anemia acute Stage 3a chronic kidney disease (CKD) acute Anemia acute Anemia of renal disease acut e Stage 3a chronic kidney disease (CKD) acute Anemia of renal disease acut e Stage 3b chronic kidney disease (CKD) acute Anemia acute Edema acute Fibrillary glomerulonephritis acute Hyperkalemia acute Hyperparathyroidism acute [id number] acute Stage 3b chronic kidney disease (CKD) acute Type 2 diabetes mellitus wit h diabetic chronic kidney disease acute [facility] Work Phone: Evaluation note* Diagnosis Onset Date Resolution Status Anemia acute Edema acute Fibrillary glomerulonephritis acute Hyperkalemia acute Hyperparathyroidism acute [id number] acute Stage 3b chronic kidney disease (CKD) acute Type 2 diabetes mellitus wit h diabetic chronic kidney disease acute BMI 40.0-44.9, adult acute Diabetes acute Dietary counseling and surveillance acute HTN (hypertension) acute Hyperlipidemia acute Vitamin B 12 deficiency acut e Anemia acute Stage 3a chronic kidney disease (CKD) acute Anemia acute Anemia of renal disease acut e Stage 3a chronic kidney disease (CKD) acute Anemia of renal disease acut e Stage 3b chronic kidney disease (CKD) acute Anemia acute Edema acute Fibrillary glomerulonephritis acute Hyperkalemia acute Hyperparathyroidism acute [id number] acute Stage 3b chronic kidney disease (CKD) acute Type 2 diabetes mellitus wit h diabetic chronic kidney disease acute [facility] Work Phone: Hospital Discharge instructionsAmbulatory Orders* AMB POC INR Time Frame: 2 Months, Location: Determined By Patient [facility] Work Phone: InstructionsNot on filedocumented in [...] To Contact Diagnoses PAF (paroxysmal 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) ([facility]) Sinus pause Procedures Wireless Telemetry (In Office) Tr Jimenez, HOSPICE OFFICE COORDINATOR-SNUFF P[employer]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 [address] [place] [address] Referral ID Status Reason Start Date Expiration Date V isits Requested Visits Authorized [id number] Pending Review 05/28/2023 05/27/2024 1 1 Chief Complaint and Reason for Visit Chief Complaint Renal 6 Month Follow Up Chief Complaint RENAL 3 month Follow up Reason for Visit Anemia BMI 50.0-59.9, adult Edema Hyperlipidemia [id number] 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 Chief Complaint RENAL 3 month Follow up kusum reader Reason for Visit Anemia BMI 50.0-59.9, adult Edema Hyperlipidemia [id number] 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 Diabetes Dietary counseling and surveillance HTN (hypertension) Hyperlipidemia Vitamin B 12 deficiency Chief Complaint RENAL 3 month Follow up kusum reader N18.32 R60.9 D64.9 Z68.43 E78.5 E11.22 I12.9 Reason for Visit Anemia BMI 50.0-59.9, adult Edema Hyperlipidemia [id number] 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 BMI 40.0-44.9, adult Diabetes Dietary counseling and surveillance HTN (hypertension) Hyperlipidemia Vitamin B 12 deficiency Chief Complaint RENAL 3 month Follow up kusum reader N18.32 R60.9 D64.9 Z68.43 E78.5 E11.22 I12.9 RENAL F/U Reason for Visit Anemia BMI 50.0-59.9, adult Edema Hyperlipidemia [id number] 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 BMI 40.0-44.9, adult Diabetes Dietary counseling and surveillance HTN (hypertension) Hyperlipidemia Vitamin B 12 deficiency Anemia Edema Fibrillary glomerulonephritis Hyperparathyroidism [id number] 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 Chief Complaint RENAL 3 month Follow up kusum reader N18.32 R60.9 D64.9 Z68.43 E78.5 E11.22 I12.9 RENAL F/U 3 week f/u Reason for Visit Anemia BMI 50.0-59.9, adult Edema Hyperlipidemia [id number] 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 BMI 40.0-44.9, adult Diabetes Dietary counseling and surveillance HTN (hypertension) Hyperlipidemia Vitamin B 12 deficiency Anemia Edema Fibrillary glomerulonephritis Hyperparathyroidism [id number] 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 Anemia Edema Fibrillary glomerulonephritis Hyperparathyroidism [id number] 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 Chief Complaint RENAL 3 month Follow up kusum reader N18.32 R60.9 D64.9 Z68.43 E78.5 E11.22 I12.9 RENAL F/U 3 week f/u RENAL 2 MONTH F/U Reason for Visit Anemia BMI 50.0-59.9, adult Edema Hyperlipidemia [id number] 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 BMI 40.0-44.9, adult Diabetes Dietary counseling and surveillance HTN (hypertension) Hyperlipidemia Vitamin B 12 deficiency Anemia Edema Fibrillary glomerulonephritis Hyperparathyroidism [id number] 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 Anemia Edema Fibrillary glomerulonephritis Hyperparathyroidism [id number] 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 Anemia Edema Fibrillary glomerulonephritis Hyperparathyroidism [id number] 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 Chief Complaint RENAL 3 month Follow up kusum reader N18.32 R60.9 D64.9 Z68.43 E78.5 E11.22 I12.9 RENAL F/U 3 week f/u RENAL 2 MONTH F/U RENAL 3 WK INJ RETACRIT Reason for Visit Anemia BMI 50.0-59.9, adult Edema Hyperlipidemia [id number] 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 BMI 40.0-44.9, adult Diabetes Dietary counseling and surveillance HTN (hypertension) Hyperlipidemia Vitamin B 12 deficiency Anemia Edema Fibrillary glomerulonephritis Hyperparathyroidism [id number] 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 Anemia Edema Fibrillary glomerulonephritis Hyperparathyroidism [id number] 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 Anemia Edema Fibrillary glomerulonephritis Hyperparathyroidism [id number]-[id number] 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 Anemia Edema Fibrillary glomerulonephritis Hyperkalemia Hyperparathyroidism [id number] Stage 3b chronic kidney disease (CKD) Type [...] 12 deficiency Anemia Edema Fibrillary glomerulonephritis Hyperparathyroidism [id number]-[id number] 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 Anemia Edema Fibrillary glomerulonephritis Hyperparathyroidism [id number]-[id number]-[id number] 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 Anemia Edema Fibrillary glomerulonephritis Hyperparathyroidism [id number] 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 Anemia Edema Fibrillary glomerulonephritis Hyperkalemia Hyperparathyroidism [id number] 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 Anemia Edema Fibrillary glomerulonephritis Hyperkalemia Hyperparathyroidism [id number] 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 Chief Complaint RENAL F/U 3 week f/u RENAL 2 MONTH F/U RENAL 3 WK INJ RETACRIT RENAL 2 WK INJ / RETACRIT METER Reason for Visit Anemia Edema Fibrillary glomerulonephritis Hyperparathyroidism [id number] 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 Anemia Edema Fibrillary glomerulonephritis Hyperparathyroidism [id number]-[id number] 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 Anemia Edema Fibrillary glomerulonephritis Hyperparathyroidism [id number] 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 Anemia Edema Fibrillary glomerulonephritis Hyperkalemia Hyperparathyroidism [id number]-[id number] 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 Anemia Edema Fibrillary glomerulonephritis Hyperkalemia Hyperparathyroidism [id number] Stage 3b chronic kidney disease (CKD) Type [...] for Visit Anemia Edema Fibrillary glomerulonephritis Hyperparathyroidism [id number] 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 Anemia Edema Fibrillary glomerulonephritis Hyperparathyroidism [id number] 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 Anemia Edema Fibrillary glomerulonephritis Hyperkalemia Hyperparathyroidism [id number] 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 Anemia Edema Fibrillary glomerulonephritis Hyperkalemia Hyperparathyroidism [id number] Stage 3b chronic kidney disease (CKD) Type [...] for Visit Anemia Edema Fibrillary glomerulonephritis Hyperparathyroidism [id number] 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 Anemia Edema Fibrillary glomerulonephritis Hyperkalemia Hyperparathyroidism [id number] 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 Anemia Edema Fibrillary glomerulonephritis Hyperkalemia Hyperparathyroidism [id number] Stage 3b chronic kidney disease (CKD) Type [...] RETACRIT / NURSE RENAL 2 WK INJ/RETACRIT/NURSE RENAL 2WK INJ / RETACRIT / NURSE Reason for Visit Anemia Edema Fibrillary glomerulonephritis Hyperparathyroidism [id number] 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 Anemia Edema Fibrillary glomerulonephritis Hyperkalemia Hyperparathyroidism [id number] 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 Anemia Edema Fibrillary glomerulonephritis Hyperkalemia Hyperparathyroidism [id number] 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 BMI 40.0-44.9, adult Diabetes Dietary counseling and surveillance HTN (hypertension) Hyperlipidemia Vitamin B 12 deficiency Anemia Stage 3a chronic kidney disease (CKD) Anemia Anemia of renal disease Stage 3a chronic kidney disease (CKD) Chief Complaint RENAL 3 WK INJ RETAC RIT RENAL 2 WK INJ / RETACRIT METER RENAL 2 WK INJ / RETACRIT / NURSE RENAL 2 WK INJ/RETACRIT/NURSE RENAL 2WK INJ / RETACRIT / NURSE RENAL 2 WK INJ / RETACRIT / DR Reason for Visit Anemia Edema Fibrillary glomerulonephritis Hyperkalemia Hyperparathyroidism [id number] 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 Anemia Edema Fibrillary glomerulonephritis Hyperkalemia Hyperparathyroidism [id number] 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 BMI 40.0-44.9, adult Diabetes Dietary counseling and surveillance HTN (hypertension) Hyperlipidemia Vitamin B 12 deficiency Anemia Stage 3a chronic kidney disease (CKD) Anemia Anemia of renal disease Stage 3a chronic kidney disease (CKD) Anemia of renal disease Stage 3b chronic kidney disease (CKD) Anemia Edema Fibrillary glomerulonephritis Hyperkalemia Hyperparathyroidism [id number] 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 Chief Complaint RENAL 2 WK INJ / RET ACRIT METER RENAL 2 WK INJ / RETACRIT / NURSE RENAL 2 WK INJ/RETACRIT/NURSE RENAL 2WK INJ / RETACRIT / NURSE RENAL 2 WK INJ / RETACRIT / DR RENAL 2 WK INJ / RETACRIT / NURSE Reason for Visit Anemia Edema Fibrillary glomerulonephritis Hyperkalemia Hyperparathyroidism [id number] 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 BMI 40.0-44.9, adult Diabetes Dietary counseling and surveillance HTN (hypertension) Hyperlipidemia Vitamin B 12 deficiency Anemia Stage 3a chronic kidney disease (CKD) Anemia Anemia of renal disease Stage 3a chronic kidney disease (CKD) Anemia of renal disease Stage 3b chronic kidney disease (CKD) Anemia Edema Fibrillary glomerulonephritis Hyperkalemia Hyperparathyroidism [id number] Stage 3b chronic kidney disease (CKD) Type [...] content) DATE CREATED AUTHOR 10/27/2022 [facility] DATE CREATED AUTHOR AUTHOR'S ORGANIZ ATION 09/08/2023 [facility] DATE CREATED AUTHOR AUTHOR'S ORGANIZ ATION 09/13/2023 [facility] EPIC DATE CREATED AUTHOR AUTHOR'S ORGANIZ ATION 01/13/2024 [facility] DATE CREATED AUTHOR AUTHOR'S ORGANIZ ATION 01/30/2024 [facility] Care Teams (unrecognized sec tion and content) Team Status: Active Member Role Status Dates ALFREDO Jiang Primary Care Provider Active Team Status: Active Member Role Status Dates Anika Deepa Elaine , FOLDER GLUER OPERATOR-C Primary Care Provider Active Start: October 30, 2023 Rin Sarmiento MD Attending Provider Active Star t: October 30, 2023 Team Status: Inactive Member Role Status Dates Anika Light FOLDER GLUER OPERATOR-C Primary Care Provider Active Start: November 05, 2023 End: November 05, 2023 Rin Sarmiento MD Attending Provider Active Star t: November 05, 2023 End: November 05, 2023 Team Status: Active Member Role Status Dates Anika Light FOLDER GLUER OPERATOR-C Primary Care Provider Active Start: November 13, 2023 Rin Sarmiento MD Attending Provider Active Star t: November 13, 2023 Team Status: Inactive Member Role Status Dates Anika Light FOLDER GLUER OPERATOR-C Primary Care Provider Active Start: November 18, 2023 End: November 18, 2023 Rin Sarmiento MD Attending Provider Active Star t: November 18, 2023 End: November 18, 2023 Team Status: Active Member Role Status Dates Rin Sarmiento MD Attending Provider Active Star t: November 27, 2023 Anika Light FOLDER GLUER OPERATOR-C Primary Care Provider Active Start: November 27, 2023 Team Status: Inactive Member Role Status Dates Anika Light FOLDER GLUER OPERATOR-C Primary Care Provider Active Start: December 08, 2023 End: December 08, 2023 Chester Lin APRN Attending Provider Active Start: December 08, 2023 End: December 08, 2023 Team Status: Inactive Member Role Status Dates Anika Light FOLDER GLUER OPERATOR-C Primary Care Provider Active Start: December 11, 2023 End: December 11, 2023 Becca Rodriguez MD Attending Provider Active Start : December 11, 2023 End: December 11, 2023 Team Status: Inactive Member Role Status Dates Anika Light FOLDER GLUER OPERATOR-C Primary Care Provider Active Start: December 30, 2023 End: December 30, 2023 Rin Sarmiento MD Attending Provider Active Star t: December 30, 2023 End: December 30, 2023 Team Status: Active Member Role Status Dates Rin Sarmiento MD Attending Provider Active Star t: January 05, 2024 Anika Light FOLDER GLUER OPERATOR-C Primary Care Provider Active Start: January 05, 2024 Team Status: Inactive Member Role Status Dates Anika Light FOLDER GLUER OPERATOR-C Primary Care Provider Active Start: January 13, 2024 End: January 13, 2024 Rin Sarmiento MD Attending Provider Active Star t: January 13, 2024 End: January 13, 2024 Team Status: Active Member Role Status Dates Becca Rodriguez MD Attending Provider Active Start : January 20, 2024 Anika Light , FOLDER GLUER OPERATOR-C Primary Care Provider Active Start: January 20, 2024 Team Status: Active Member Role Status Dates Rin Sarmiento MD Attending Provider Active Star t: January 23, 2024 Anika Light FOLDER GLUER OPERATOR-C Primary Care Provider Active Start: January 23, 2024 Team Status: Inactive Member Role Status Dates Anika Light FOLDER GLUER OPERATOR-C Primary Care Provider Active Start: January 27, 2024 End: January 27, 2024 Rin Sarmiento MD Attending Provider Active Star t: January 27, 2024 End: January 27, 2024 Team Status: Inactive Member Role Status Dates Anika Light FOLDER GLUER OPERATOR-C Primary Care Provider Active Start: October 15, 2023 End: October 15, 2023 Rin Sarmiento MD Attending Provider Active Star t: October 15, 2023 End: October 15, 2023 Team Status: Active Member Role Status Dates Anika Light FOLDER GLUER OPERATOR-C Primary Care Provider Active Start: September 16, 2023 Rin Sarmiento MD Attending Provider Active Star t: September 16, 2023 Team Status: Inactive Member Role Status Dates Anika Light FOLDER GLUER OPERATOR-C Primary Care Provider Active Start: September 23, 2023 End: September 23, 2023 Rin Sarmiento MD Attending Provider Active Star t: September 23, 2023 End: September 23, 2023 Team Status: Active Member Role Status Dates Rin Sarmiento MD Attending Provider Active Star t: October 07, 2023 Anika Light FOLDER GLUER OPERATOR-C Primary Care Provider Active Start: October 07, 2023 Team Status: Inactive Member Role Status Dates Anika Light FOLDER GLUER OPERATOR-C Primary Care Provider Active Start: August 13, 2023 End: August 13, 2023 Rin Sarmiento MD Attending Provider Active Star t: August 13, 2023 End: August 13, 2023 Team Status: Inactive Member Role Status Dates Anika Light FOLDER GLUER OPERATOR-C Primary Care Provider Active Start: August 20, 2023 End: August 20, 2023 Chester Lin APRN Attending Provider Active Start: August 20, 2023 End: August 20, 2023 Team Status: Inactive Member Role Status Dates Anika Light FOLDER GLUER OPERATOR-C Primary Care Provider Active Start: September 01, 2023 End: September 01, 2023 Rin Sarmiento MD Attending Provider Active Star t: September 01, 2023 End: September 01, 2023 Team Status: Inactive Member Role Status Dates Anika Light FOLDER GLUER OPERATOR-C Primary Care Provider Active Start: September 09, 2023 End: September 09, 2023 Rin Sarmiento MD Attending Provider Active Star t: September 09, 2023 End: September 09, 2023 Team Status: Active Member Role Status Dates Anika Light FOLDER GLUER OPERATOR-C Primary Care Provider Active Start: August 01, 2023 Rin Sarmiento MD Attending Provider Active Star t: August 01, 2023 Team Status: Active Member Role Status Dates Anika Light FOLDER GLUER OPERATOR-C Primary Care Provider Active Start: August 05, 2023 Rin Sarmiento MD Attending Provider Active Star t: August 05, 2023 Bicycle Taxi Driver Relationship Specialty Start Date End Date Anika Light APRN-SNUFF PACK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 [address] [facility], [facility] [place] [address] PCP - General Family Medicine 04/29/23 Bicycle Taxi Driver Relationship Specialty Start Date End Date Anika Light APRN-SNUFF PACK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 [address] [facility], [facility] [place] [address] PCP - General Family Medicine 04/29/23 Bicycle Taxi Driver Relationship Specialty Start Date End Date Anika Light HOSPICE OFFICE COORDINATOR-SNUFF PACK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 [address] [facility], [place] [address] PCP - General Family Medicine 04/29/23 Bicycle Taxi Driver Relationship Specialty Start Date End Date Anika Light APRN-CNP [address] [facility], [place] [address] PCP - General Family Medicine 04/29/23 Bicycle Taxi Driver Relationship Specialty Start Date End Date Anika Light APRN-CNP [address] [facility], [place] [address] PCP - General Family Medicine 04/29/23 Bicycle Taxi Driver Relationship Specialty Start Date End Date Anika Light APRN-CNP [address] [facility], [place] [address] PCP - General Family Medicine 04/29/23 Bicycle Taxi Driver Relationship Specialty Start Date End Date Anika Light APRN-CNP [address] [facility], [place] [address] PCP - General Family Medicine 04/29/23 Team Status: Inactive Member Role Status Dates Rin Sarmiento MD Attending Provider Active Star t: April 22, 2023 End: April 22, 2023 Bicycle Taxi Driver Relationship Specialty Start Date End Date Anika Light APRN-CNP [address] [facility], [place] [address] PCP - General Family Medicine 04/29/23 Bicycle Taxi Driver Relationship Specialty Start Date End Date Anika Light APRN-CNP [address] [facility], [place] [address] PCP - General Family Medicine 04/29/23 Team Status: Active Member Role Status Dates Rin Sarmiento MD Attending Provider Active Star t: February 03, 2024 ALFREDO Jiang Primary Care Provider Active Start: February 03, 2024 Team Status: Inactive Member Role Status Dates ALFREDO Jiang Primary Care Provider Active Start: February 10, 2024 End: February 10, 2024 Rin Sarmiento MD Attending Provider Active Star t: February 10, 2024 End: February 10, 2024 Goals (unrecognized section and content) Goals may [...] BE BASED ON THE PRIMARY CLINICAL RECORDS. [facility] [employer] [facility]. provides no warranty or guarantee of the accuracy or completeness of information in this document.
[2024-02-23 10:52] LABS: Hematocrit 32.8 % (36.0-48.0); Hemoglobin 9.7 g/dL (12.0-16.0); Mean Corpuscular HGB Conc 29.6 g/dL (29.9-35.2); Mean Corpuscular Hemoglobin 29.4 pg (26.7-34.0); Mean Corpuscular Volume 99.4 fL (81.0-99.0); Mean Platelet Volume 9.7 fL (9.5-13.5); Platelet Count 170 10^3/uL (150-450); Red Cell Distribution Width 15.1 % (11.0-15.0); White Blood Count 4.8 10^3/uL (4.0-11.0)
[2024-02-23 11:37] LABS: Anion Gap 12.3; BUN Creatinine Ratio 21.7; Calcium 8.9 mg/dL (8.5-10.1); Carbon Dioxide 28.7 mmol/L (21.0-32.0); Chloride 107 mmol/L (98-107); Estimated GFR (African America 25 (>=60 mL/min/1.73m^2); Estimated GFR (Non-African Ame 20 (>=60 mL/min/1.73m^2); Glucose 97 mg/dL (74-106); Phosphorus 3.6 mg/dL (2.6-4.7); Sodium 144 mmol/L (136-145)
== END 2024-02-23 10:17 | disposition home or self-care (01) ==
LOC: LAB 10:17
PROVIDERS: PCP Nurse Practitioner Family; Visit Provider Internal Medicine Nephrology
DX: D64.9 Anemia, unspecified (principal); N18.9 Chronic kidney disease, unspecified; D63.1 Anemia in chronic kidney disease; N18.32 Chronic kidney disease, stage 3b; E78.2 Mixed hyperlipidemia
CPT/HCPCS: 36415; 80069; 85027

== ENCOUNTER 2024-03-17 08:09 | Outpatient (OUT) | payer MEDICARE, SELFPAY ==
--- OUTSIDE RECORDS SUMMARY | 2024-03-17 08:24 | XMS_ITS | CCD ---
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 [facility] Potassium [Moles/Vol] 5.8 mmol/L High 3.5-5.1 [facility] Sodium [Moles/Vol] 144 mmol/L 136-145 [facility] Urea nitrogen [Mass/Vol] 44.0 mg/dL High 7.0-18.[address] [facility] Urea nitrogen/Creatinine [Mass ratio] 21.1 mg/mg [facility] No Panel Informationon 01-22 Phosphorus Level 4.1 mg/dL 2.6-4.7 [facility] Serum or plasma anion gap de terminationon 01-23-2024 Anion gap [Moles/Vol] 12.0 mmol/L Fi [facility] Erythrocyte distribution wid th Auto (RBC) [Ratio]on 01-20-2024 Erythrocyte distribution width (RBC) [Ratio] 15.0 % 11.0-15.[address] [facility] Estimated glomerular filtrat ion rate (GFR) non- Americanon 01-20-2024 GFR/1.73 sq M.predicted among non-blacks MDRD (S/P/Bld) [Vol rate/Area] 23 mL/min/{1.73_m2} Low >=[address] [facility] Hematocrit Auto (Bld) [Volum e fraction]on 01-20-2024 Hematocrit (Bld) [Volume fraction] 32.5 % Low 36.0-48.[address] [facility] Hemoglobin [Mass/volume] in Bloodon 01-20-2024 Hemoglobin (Bld) [Mass/Vol] 9.6 g/dL Low 12.0-16.[address] [facility] Iron binding capacity [Mass/ volume] in Serum or Plasmaon 01-20-2024 Iron binding capacity [Mass/Vol] 260.0 ug/dL 250.0-450. [address] [facility] Iron saturation [Mass Fracti on] in Serum or Plasmaon 01-20-2024 Iron saturation [Mass fraction] 10.0 % [facility] Laboratory - Chemistry and C hemistry - challengeon 01-20-2024 Albumin [Mass/Vol] 3.0 g/dL Low 3.4-5.0 [facility] Calcium [Mass/Vol] 8.5 mg/dL 8.5-10.1 [facility] Chloride [Moles/Vol] 108 mmol/L High 98-107 [facility] CO2 [Moles/Vol] 31.6 mmol/L 21.0-32.0 [facility] Creatinine [Mass/Vol] 2.06 mg/dL High 0.55-1.02 [facility] Ferritin [Mass/Vol] 36.0 ng/mL 8.0-252.0 [facility] GFR/1.73 sq M.predicted MDRD (S/P/Bld) [Vol rate/Area] 28 mL/min/{1.73_m2} Low >=[address] [facility] Glucose [Mass/Vol] 106 mg/dL 74-106 [facility] Iron [Mass/Vol] 26.0 ug/dL Low 50.0-170.[address] [facility] Potassium [Moles/Vol] 5.8 mmol/L High 3.5-5.1 [facility] Sodium [Moles/Vol] 144 mmol/L 136-145 [facility] Urea nitrogen [Mass/Vol] 48.0 mg/dL High 7.0-18.[address] [facility] Urea nitrogen/Creatinine [Mass ratio] 23.3 mg/mg [facility] Leukocytes [#/volume] correc katy for nucleated erythrocytes in Blood by Automated counon 01-20-2024 WBC corrected for nucl RBC Auto (Bld) [#/Vol] 6.4 10 3/uL 4.0-11.[address] [facility] MCH Auto (RBC) [Entitic mass ]on 01-20-2024 MCH (RBC) [Entitic mass] 30.0 pg 26.7-34.[address] [facility] MCHC Auto (RBC) [Mass/Vol]on 01-20-2024 MCHC (RBC) [Mass/Vol] 29.5 g/dL Low 29.9-35.2 [facility] MCV Auto (RBC) [Entitic vol] on 01-20-2024 MCV (RBC) [Entitic vol] 101.6 fL High 81.0-99.[address] [facility] No Panel Informationon 01-19 Phosphorus Level 4.2 mg/dL 2.6-4.7 [facility] Platelet mean volume Auto (B ld) [Entitic vol]on 01-20-2024 Platelet mean volume (Bld) [Entitic vol] 9.6 fL 9.5-13.[address] [facility] Platelets Auto (Bld) [#/Vol] on 01-20-2024 Platelets (Bld) [#/Vol] 196 10 3/uL 150-[address] [facility] RBC Auto (Bld) [#/Vol]on RBC (Bld) [#/Vol] 3.20 10 6/uL Low 4.20-5.40 [facility] Serum or plasma anion gap de terminationon 01-20-2024 Anion gap [Moles/Vol] 10.2 mmol/L Fi [facility] 36on 01-07-2024 36 [facility] forward [facility] Ref[facility] [id number] Dany Martínez 1940 F Date Provider Department Center 01/06/[id number]-[facility] No family history on file Reason for Visit and Comments: Med Refill [[id number]] Normal [facility] Erythrocyte distribution wid th Auto (RBC) [Ratio]on 01-05-2024 Erythrocyte distribution width (RBC) [Ratio] 14.2 % 11.0-15.[address] [facility] Hematocrit Auto (Bld) [Volum e fraction]on 01-05-2024 Hematocrit (Bld) [Volume fraction] 32.4 % Low 36.0-48.[address] [facility] Hemoglobin [Mass/volume] in Bloodon 01-05-2024 Hemoglobin (Bld) [Mass/Vol] 9.8 g/dL Low 12.0-16.[address] [facility] Leukocytes [#/volume] correc katy for nucleated erythrocytes in Blood by Automated counon 01-05-2024 WBC corrected for nucl RBC Auto (Bld) [#/Vol] 5.7 10 3/uL 4.0-11.[address] [facility] MCH Auto (RBC) [Entitic mass ]on 01-05-2024 MCH (RBC) [Entitic mass] 30.1 pg 26.7-34.[address] [facility] MCHC Auto (RBC) [Mass/Vol]on 01-05-2024 MCHC (RBC) [Mass/Vol] 30.2 g/dL 29.9-35.2 [facility] MCV Auto (RBC) [Entitic vol] on 01-05-2024 MCV (RBC) [Entitic vol] 99.4 fL High 81.0-99.[address] [facility] Platelet mean volume Auto (B ld) [Entitic vol]on 01-05-2024 Platelet mean volume (Bld) [Entitic vol] 9.3 fL Low 9.5-13.[address] [facility] Platelets Auto (Bld) [#/Vol] on 01-05-2024 Platelets (Bld) [#/Vol] 211 10 3/uL 150-[address] [facility] RBC Auto (Bld) [#/Vol]on RBC (Bld) [#/Vol] 3.26 10 6/uL Low 4.20-5.40 [facility] No Panel Informationon 12-07 Bedside Glucose [address] [facility] Erythrocyte distribution wid th Auto (RBC) [Ratio]on 11-27-2023 Erythrocyte distribution width (RBC) [Ratio] 14.7 % 11.0-15.[address] [facility] Hematocrit Auto (Bld) [Volum e fraction]on 11-27-2023 Hematocrit (Bld) [Volume fraction] 31.1 % Low 36.0-48.[address] [facility] Hemoglobin [Mass/volume] in Bloodon 11-27-2023 Hemoglobin (Bld) [Mass/Vol] 9.3 g/dL Low 12.0-16.[address] [facility] Leukocytes [#/volume] correc katy for nucleated erythrocytes in Blood by Automated counon 11-27-2023 WBC corrected for nucl RBC Auto (Bld) [#/Vol] 5.4 10 3/uL 4.0-11.[address] [facility] MCH Auto (RBC) [Entitic mass ]on 11-27-2023 MCH (RBC) [Entitic mass] 29.5 pg 26.7-34.[address] [facility] MCHC Auto (RBC) [Mass/Vol]on 11-27-2023 MCHC (RBC) [Mass/Vol] 29.9 g/dL 29.9-35.2 [facility] MCV Auto (RBC) [Entitic vol] on 11-27-2023 MCV (RBC) [Entitic vol] 98.7 fL 81.0-99.[address] [facility] Platelet mean volume Auto (B ld) [Entitic vol]on 11-27-2023 Platelet mean volume (Bld) [Entitic vol] 9.9 fL 9.5-13.[address] [facility] Platelets Auto (Bld) [#/Vol] on 11-27-2023 Platelets (Bld) [#/Vol] 195 10 3/uL 150-[address] [facility] RBC Auto (Bld) [#/Vol]on RBC (Bld) [#/Vol] 3.15 10 6/uL Low 4.20-5.40 [facility] Erythrocyte distribution wid th Auto (RBC) [Ratio]on 11-13-2023 Erythrocyte distribution width (RBC) [Ratio] 14.6 % 11.0-15.[address] [facility] Estimated glomerular filtrat ion rate (GFR) non- Americanon 11-13-2023 GFR/1.73 sq M.predicted among non-blacks MDRD (S/P/Bld) [Vol rate/Area] 19 mL/min/{1.73_m2} Low >=[address] [facility] Hematocrit Auto (Bld) [Volum e fraction]on 11-13-2023 Hematocrit (Bld) [Volume fraction] 30.1 % Low 36.0-48.[address] [facility] Hemoglobin [Mass/volume] in Bloodon 11-13-2023 Hemoglobin (Bld) [Mass/Vol] 8.9 g/dL Low 12.0-16.[address] [facility] Laboratory - Chemistry and C hemistry - challengeon 11-13-2023 Albumin [Mass/Vol] 3.1 g/dL Low 3.4-5.0 [facility] Calcium [Mass/Vol] 8.4 mg/dL Low 8.5-10.1 [facility] Chloride [Moles/Vol] 106 mmol/L 98-107 [facility] CO2 [Moles/Vol] 29.3 mmol/L 21.0-32.0 [facility] Creatinine [Mass/Vol] 2.41 mg/dL High 0.55-1.02 [facility] GFR/1.73 sq M.predicted MDRD (S/P/Bld) [Vol rate/Area] 23 mL/min/{1.73_m2} Low >=[address] [facility] Glucose [Mass/Vol] 97 mg/dL 74-106 [facility] Potassium [Moles/Vol] 4.8 mmol/L 3.5-5.1 [facility] Sodium [Moles/Vol] 143 mmol/L 136-145 [facility] Urea nitrogen [Mass/Vol] 47.0 mg/dL High 7.0-18.[address] [facility] Urea nitrogen/Creatinine [Mass ratio] 19.5 mg/mg [facility] Leukocytes [#/volume] correc katy for nucleated erythrocytes in Blood by Automated counon 11-13-2023 WBC corrected for nucl RBC Auto (Bld) [#/Vol] 5.0 10 3/uL 4.0-11.[address] [facility] MCH Auto (RBC) [Entitic mass ]on 11-13-2023 MCH (RBC) [Entitic mass] 28.9 pg 26.7-34.[address] [facility] MCHC Auto (RBC) [Mass/Vol]on 11-13-2023 MCHC (RBC) [Mass/Vol] 29.6 g/dL Low 29.9-35.2 [facility] MCV Auto (RBC) [Entitic vol] on 11-13-2023 MCV (RBC) [Entitic vol] 97.7 fL 81.0-99.[address] [facility] No Panel Informationon 11-12 Phosphorus Level 4.2 mg/dL 2.6-4.7 [facility] Platelet mean volume Auto (B ld) [Entitic vol]on 11-13-2023 Platelet mean volume (Bld) [Entitic vol] 9.7 fL 9.5-13.[address] [facility] Platelets Auto (Bld) [#/Vol] on 11-13-2023 Platelets (Bld) [#/Vol] 228 10 3/uL 150-[address] [facility] RBC Auto (Bld) [#/Vol]on RBC (Bld) [#/Vol] 3.08 10 6/uL Low 4.20-5.40 [facility] Serum or plasma anion gap de terminationon 11-13-2023 Anion gap [Moles/Vol] 12.5 mmol/L [facility] Erythrocyte distribution wid th Auto (RBC) [Ratio]on 10-30-2023 Erythrocyte distribution width (RBC) [Ratio] 14.1 % 11.0-15.[address] [facility] Estimated glomerular filtrat ion rate (GFR) non- Americanon 10-30-2023 GFR/1.73 sq M.predicted among non-blacks MDRD (S/P/Bld) [Vol rate/Area] 18 mL/min/{1.73_m2} Low >=[address] [facility] Hematocrit Auto (Bld) [Volum e fraction]on 10-30-2023 Hematocrit (Bld) [Volume fraction] 28.0 % Low 36.0-48.[address] [facility] Hemoglobin [Mass/volume] in Bloodon 10-30-2023 Hemoglobin (Bld) [Mass/Vol] 8.3 g/dL Low 12.0-16.[address] [facility] Laboratory - Chemistry and C hemistry - challengeon 10-30-2023 Albumin [Mass/Vol] 2.9 g/dL Low 3.4-5.0 [facility] Calcium [Mass/Vol] 8.6 mg/dL 8.5-10.1 [facility] Chloride [Moles/Vol] 107 mmol/L 98-107 [facility] CO2 [Moles/Vol] 28.1 mmol/L 21.0-32.0 [facility] Creatinine [Mass/Vol] 2.52 mg/dL High 0.55-1.02 [facility] GFR/1.73 sq M.predicted MDRD (S/P/Bld) [Vol rate/Area] 22 mL/min/{1.73_m2} Low >=[address] [facility] Glucose [Mass/Vol] 100 mg/dL 74-106 [facility] Potassium [Moles/Vol] 5.7 mmol/L High 3.5-5.1 [facility] Sodium [Moles/Vol] 142 mmol/L 136-145 [facility] Urea nitrogen [Mass/Vol] 43.0 mg/dL High 7.0-18.[address] [facility] Urea nitrogen/Creatinine [Mass ratio] 17.1 mg/mg [facility] Leukocytes [#/volume] correc katy for nucleated erythrocytes in Blood by Automated counon 10-30-2023 WBC corrected for nucl RBC Auto (Bld) [#/Vol] 4.6 10 3/uL 4.0-11.[address] [facility] MCH Auto (RBC) [Entitic mass ]on 10-30-2023 MCH (RBC) [Entitic mass] 28.7 pg 26.7-34.[address] [facility] MCHC Auto (RBC) [Mass/Vol]on 10-30-2023 MCHC (RBC) [Mass/Vol] 29.6 g/dL Low 29.9-35.2 [facility] MCV Auto (RBC) [Entitic vol] on 10-30-2023 MCV (RBC) [Entitic vol] 96.9 fL 81.0-99.[address] [facility] No Panel Informationon 10-29 Parathyroid Hormone (Intact) 73 pg/mL Abnormal 15-[address] [facility] Comment on above: Performed at: [place] [id number] Director: Deshaun Hunter PhD, Phone: [phone] Phosphorus Level 4.3 mg/dL 2.6-4.7 [facility] Platelet mean volume Auto (B ld) [Entitic vol]on 10-30-2023 Platelet mean volume (Bld) [Entitic vol] 9.8 fL 9.5-13.[address] [facility] Platelets Auto (Bld) [#/Vol] on 10-30-2023 Platelets (Bld) [#/Vol] 178 10 3/uL 150-[address] [facility] RBC Auto (Bld) [#/Vol]on RBC (Bld) [#/Vol] 2.89 10 6/uL Low 4.20-5.40 [facility] Serum or plasma anion gap de terminationon 10-30-2023 Anion gap [Moles/Vol] 12.6 mmol/L [facility] Erythrocyte distribution wid th Auto (RBC) [Ratio]on 10-07-2023 Erythrocyte distribution width (RBC) [Ratio] 14.2 % 11.0-15.[address] [facility] Hematocrit Auto (Bld) [Volum e fraction]on 10-07-2023 Hematocrit (Bld) [Volume fraction] 28.0 % Low 36.0-48.[address] [facility] Hemoglobin [Mass/volume] in Bloodon 10-07-2023 Hemoglobin (Bld) [Mass/Vol] 8.6 g/dL Low 12.0-16.[address] [facility] Leukocytes [#/volume] correc katy for nucleated erythrocytes in Blood by Automated counon 10-07-2023 WBC corrected for nucl RBC Auto (Bld) [#/Vol] 5.1 10 3/uL 4.0-11.[address] [facility] MCH Auto (RBC) [Entitic mass ]on 10-07-2023 MCH (RBC) [Entitic mass] 30.1 pg 26.7-34.[address] [facility] MCHC Auto (RBC) [Mass/Vol]on 10-07-2023 MCHC (RBC) [Mass/Vol] 30.7 g/dL 29.9-35.2 [facility] MCV Auto (RBC) [Entitic vol] on 10-07-2023 MCV (RBC) [Entitic vol] 97.9 fL 81.0-99.[address] [facility] Platelet mean volume Auto (B ld) [Entitic vol]on 10-07-2023 Platelet mean volume (Bld) [Entitic vol] 10.1 fL 9.5-13.[address] [facility] Platelets Auto (Bld) [#/Vol] on 10-07-2023 Platelets (Bld) [#/Vol] 194 10 3/uL 150-[address] [facility] RBC Auto (Bld) [#/Vol]on RBC (Bld) [#/Vol] 2.86 10 6/uL Low 4.20-5.40 [facility] Erythrocyte distribution wid th Auto (RBC) [Ratio]on 09-16-2023 Erythrocyte distribution width (RBC) [Ratio] 14.0 % 11.0-15.[address] [facility] Estimated glomerular filtrat ion rate (GFR) non- Americanon 09-16-2023 GFR/1.73 sq M.predicted among non-blacks MDRD (S/P/Bld) [Vol rate/Area] 22 mL/min/{1.73_m2} Low >=[address] [facility] Hematocrit Auto (Bld) [Volum e fraction]on 09-16-2023 Hematocrit (Bld) [Volume fraction] 25.6 % Low 36.0-48.[address] [facility] Hemoglobin [Mass/volume] in Bloodon 09-16-2023 Hemoglobin (Bld) [Mass/Vol] 7.5 g/dL Low 12.0-16.[address] [facility] Laboratory - Chemistry and C hemistry - challengeon 09-16-2023 Albumin [Mass/Vol] 3.1 g/dL Low 3.4-5.0 [facility] Calcium [Mass/Vol] 9.2 mg/dL 8.5-10.1 [facility] Chloride [Moles/Vol] 107 mmol/L 98-107 [facility] CO2 [Moles/Vol] 28.2 mmol/L 21.0-32.0 [facility] Creatinine [Mass/Vol] 2.17 mg/dL High 0.55-1.02 [facility] GFR/1.73 sq M.predicted MDRD (S/P/Bld) [Vol rate/Area] 26 mL/min/{1.73_m2} Low >=[address] [facility] Glucose [Mass/Vol] 98 mg/dL 74-106 [facility] Potassium [Moles/Vol] 5.1 mmol/L 3.5-5.1 [facility] Sodium [Moles/Vol] 142 mmol/L 136-145 [facility] Urea nitrogen [Mass/Vol] 43.0 mg/dL High 7.0-18.[address] [facility] Urea nitrogen/Creatinine [Mass ratio] 19.8 mg/mg [facility] Laboratory - Urinalysison Protein (U) [Mass/Vol] 117.6 mg/dL High <=11.9 [facility] Leukocytes [#/volume] correc katy for nucleated erythrocytes in Blood by Automated counon 09-16-2023 WBC corrected for nucl RBC Auto (Bld) [#/Vol] 5.4 10 3/uL 4.0-11.[address] [facility] MCH Auto (RBC) [Entitic mass ]on 09-16-2023 MCH (RBC) [Entitic mass] 29.2 pg 26.7-34.[address] [facility] MCHC Auto (RBC) [Mass/Vol]on 09-16-2023 MCHC (RBC) [Mass/Vol] 29.3 g/dL Low 29.9-35.2 [facility] MCV Auto (RBC) [Entitic vol] on 09-16-2023 MCV (RBC) [Entitic vol] 99.6 fL High 81.0-99.[address] [facility] No Panel Informationon 09-15 Parathyroid Hormone (Intact) 75 pg/mL Abnormal 15- [facility] Comment on above: Performed at: [place] [id number] Director: Deshaun Hunter PhD, Phone: [phone] Phosphorus Level 4.6 mg/dL 2.6-4.7 [facility] Urine Random Creatinine 38.12 mg/dL 20.00-300. [address] [facility] Platelet mean volume Auto (B ld) [Entitic vol]on 09-16-2023 Platelet mean volume (Bld) [Entitic vol] 10.3 fL 9.5-13.[address] [facility] Platelets Auto (Bld) [#/Vol] on 09-16-2023 Platelets (Bld) [#/Vol] 225 10 3/uL 150-[address] [facility] RBC Auto (Bld) [#/Vol]on RBC (Bld) [#/Vol] 2.57 10 6/uL Low 4.20-5.40 [facility] Serum or plasma anion gap de terminationon 09-16-2023 Anion gap [Moles/Vol] 11.9 mmol/L [facility] Urine protein/creatinine rat ioon 09-16-2023 Protein/Creatinine (U) [Ratio] 3.[address] [facility] Activated partial thrombopla stin time (aPTT) in platelet poor plasma by coagulation aOrdered By: Rin Sarmiento on 09-01-2023 aPTT Coag (PPP) [Time] 30.5 s 25.1-36.5 [facility] Comment on above: A hematocrit value g reater than 55% may lead to inaccurate results in coagulation testing. Patients having hematocrit values >55% require a special collection tube for coagulation studies. Please contact the laboratory at [phone] for redraw instructions. Albumin [Mass/volume] in Ser um or Plasma by Bromocresol green (BCG) dye binding methoOrdered By: Rin Sarmiento on 09-01-2023 Albumin BCG dye [Mass/Vol] 3.6 g/dL 3.5-5.[address] [facility] Automated erythrocytes count in urine sediment (number/area)Ordered By: Rin Sarmiento on 09-01-2023 RBC Auto (Urine sed) [#/Area] 50-100 [HPF] High 0-[address] [facility] Automated leukocytes count i n urine sediment (number/area)Ordered By: Rin Sarmiento on 09-01-2023 WBC Auto (Urine sed) [#/Area] 1-2 [HPF] 0-[address] [facility] Bilirubin Test strip Ql (U)O rdered By: Rin Sarmiento on 09-01-2023 Bilirubin Ql (U) Negative Negative [facility] CT guided needle placementon 09-01-2023 CT guided needle placement [facility] [place] [address] CT Scan Report Signed Patient: Margie Martínez MR#: [id number] : 1940 Acct:[id number] Age/Sex: 83 / F ADM Date: 09/01/23 Loc: CT Room: Type: [facility] Attending Dr: Rin Sarmiento MD Copies to: Rin Sarmiento MD Ordering Provider: Rin Sarmiento MD Date of Service: 09/01/23 CT/CT guided biopsy: ANGELINA with nephrotic range proteinuria, hypoalbumine ([id number]) CT/CT guided needle placement: random kidney bx [...] Urias Jr., D.O.09/01/2023 1:30 PM Dictation Location: [place] [address] Transcribed By: [facility] 09/01/23 1330 Dictated By: Kj Urias Jr, DO 09/01/23 1328 Signed By: 09/01/23 1330 Normal [facility] Calcium [Mass/volume] in Ser um or PlasmaOrdered By: Rin Sarmiento on 09-01-2023 Calcium [Mass/Vol] 8.9 mg/dL 8.6-10.3 [facility] Carbon dioxide, total [Moles /volume] in Serum or PlasmaOrdered By: Rin Sarmiento on 09-01-2023 CO2 [Moles/Vol] 30.5 mmol/L 21.0-31.0 [facility] Chloride [Moles/volume] in S adriana or PlasmaOrdered By: Rin Sarmiento on 09-01-2023 Chloride [Moles/Vol] 107 mmol/L 98-107 [facility] Color Auto (U)Ordered By: Domingo Sarmiento on 09-01-2023 Color (U) Yellow Yellow [facility] Creatinine [Mass/volume] in Serum or PlasmaOrdered By: Rin Sarmiento on 09-01-2023 Creatinine [Mass/Vol] 2.02 mg/dL High 0.60-1.20 [facility] Creatinine [Mass/volume] in UrineOrdered By: Rin Sarmiento on 09-01-2023 Creatinine (U) [Mass/Vol] 52.0 mg/dL [facility] Comment on above: No reference range e stablished Dipstick and Microscopicon 0 09-01-2023 Appearance (U) Cloudy Critically abnormal Clear [facility] Comment on above: Order Comment: Name Collection Type:: Clean-Voided Midstream Performed By: #### V [id number], BHANU, RENAL, [id number], ADDONUAPLUS, PROCRERAT, FLAKO, MG, PTH, PT, CBCNO, PTT, URMACRERAT, FE and TIBC #### [facility] [address] Bacteria,Urine None Seen Normal None Seen [facility] Comment on above: Order Comment: Name Collection Type:: Clean-Voided Midstream Performed By: #### V [id number], BHANU, RENAL, [id number], ADDONUAPLUS, PROCRERAT, FLAKO, MG, PTH, PT, CBCNO, PTT, URMACRERAT, FE and TIBC #### [facility] [address] Bilirubin,Urine Negative Normal Negative [facility] Comment on above: Order Comment: Name Collection Type:: Clean-Voided Midstream Performed By: #### V [id number], BHANU, RENAL, [id number], ADDONUAPLUS, PROCRERAT, FLAKO, MG, PTH, PT, CBCNO, PTT, URMACRERAT, FE and TIBC #### [facility] [address] Color (U) Yellow Normal Yellow [facility] Comment on above: Order Comment: Name Collection Type:: Clean-Voided Midstream Performed By: #### V [id number], BHANU, RENAL, [id number], ADDONUAPLUS, PROCRERAT, FLAKO, MG, PTH, PT, CBCNO, PTT, URMACRERAT, FE and TIBC #### [facility] [address] [place] [id number] [facility] Glucose Ql (U) Normal Normal Normal [facility] Comment on above: Order Comment: Name Collection Type:: Clean-Voided Midstream Performed By: #### V [id number], BHANU, RENAL, [id number], ADDONUAPLUS, PROCRERAT, FLAKO, MG, PTH, PT, CBCNO, PTT, URMACRERAT, FE and TIBC #### [address] Hyaline Casts,Urine 0-8 Normal 0-8 [facility] Comment on above: Order Comment: Name Collection Type:: Clean-Voided Midstream Result Comment: PERF ORMED BY: [place] [address] PATHOLOGIST [employer] JEWELL ROWLEY M.D. Performed By: #### V [id number], BHANU, RENAL, [id number], ADDONUAPLUS, PROCRERAT, FLAKO, MG, PTH, PT, CBCNO, PTT, URMACRERAT, FE and TIBC #### [address] Ketones Ql (U) Negative Normal Negative [facility] Comment on above: Order Comment: Name Collection Type:: Clean-Voided Midstream Performed By: #### V [id number], BHANU, RENAL, [id number], ADDONUAPLUS, PROCRERAT, FLAKO, MG, PTH, PT, CBCNO, PTT, URMACRERAT, FE and TIBC #### [address] Leukocyte esterase Test strip Ql (U) Negative Normal Negative [facility] Comment on above: Order Comment: Name Collection Type:: Clean-Voided Midstream Performed By: #### V [id number], BHANU, RENAL, [id number], ADDONUAPLUS, PROCRERAT, FLAKO, MG, PTH, PT, CBCNO, PTT, URMACRERAT, FE and TIBC #### [address] Nitrite,Urine Negative Normal Negative [facility] Comment on above: Order Comment: Name Collection Type:: Clean-Voided Midstream Performed By: #### V [id number], BHANU, RENAL, [id number], ADDONUAPLUS, PROCRERAT, FLAKO, MG, PTH, PT, CBCNO, PTT, URMACRERAT, FE and TIBC #### [address] Occult Blood,Urine 1+ High Negative [facility] Comment on above: Order Comment: Name Collection Type:: Clean-Voided Midstream Result Comment: PERF ORMED BY: [place] [address] PATHOLOGIST [employer] JEWELL ROWLEY M.D. Performed By: #### V [id number], BHANU, RENAL, [id number], ADDONUAPLUS, PROCRERAT, FLAKO, MG, PTH, PT, CBCNO, PTT, URMACRERAT, FE and TIBC #### [address] pH (U) 7.0 [pH] Normal 5.0-9.0 [facility] Comment on above: Order Comment: Name Collection Type:: Clean-Voided Midstream Performed By: #### V [id number], BHANU, RENAL, [id number], ADDONUAPLUS, PROCRERAT, FLAKO, MG, PTH, PT, CBCNO, PTT, URMACRERAT, FE and TIBC #### [address] Protein (U) [Mass/Vol] 300 mg/dL High Negative [facility] Comment on above: Order Comment: Name Collection Type:: Clean-Voided Midstream Performed By: #### V [id number], BHANU, RENAL, [id number], ADDONUAPLUS, PROCRERAT, FLAKO, MG, PTH, PT, CBCNO, PTT, URMACRERAT, FE and TIBC #### [address] RBC,Urine 50-100 High 0-4 [facility] Comment on above: Order Comment: Name Collection Type:: Clean-Voided Midstream Performed By: #### V [id number], BHANU, RENAL, [id number], ADDONUAPLUS, PROCRERAT, FLAKO, MG, PTH, PT, CBCNO, PTT, URMACRERAT, FE and TIBC #### [address] Specificy [place],Urine 1.015 Normal 1.001-1.03 0 [facility] Comment on above: Order Comment: Name Collection Type:: Clean-Voided Midstream Performed By: #### V [id number], BHANU, RENAL, [id number], ADDONUAPLUS, PROCRERAT, FLAKO, MG, PTH, PT, CBCNO, PTT, URMACRERAT, FE and TIBC #### [address] Squamous Epithelial Cell,Urine 0-1 Normal 0-2 [facility] Comment on above: Order Comment: Name Collection Type:: Clean-Voided Midstream Performed By: #### V [id number], BHANU, RENAL, [id number], ADDONUAPLUS, PROCRERAT, FLAKO, MG, PTH, PT, CBCNO, PTT, URMACRERAT, FE and TIBC #### [address] Urobilinogen,Urine Normal Normal Normal [facility] Comment on above: Order Comment: Name Collection Type:: Clean-Voided Midstream Performed By: #### V [id number], BHANU, RENAL, [id number], ADDONUAPLUS, PROCRERAT, FLAKO, MG, PTH, PT, CBCNO, PTT, URMACRERAT, FE and TIBC #### [address] WBC,Urine 1-2 Normal 0-4 [facility] Comment on above: Order Comment: Name Collection Type:: Clean-Voided Midstream Performed By: #### V [id number], BHANU, RENAL, [id number], ADDONUAPLUS, PROCRERAT, FLAKO, MG, PTH, PT, CBCNO, PTT, URMACRERAT, FE and TIBC #### [facility] [address] [id number] [facility] Erythrocyte distribution wid th Auto (RBC) [Ratio]Ordered By: Rin Sarmiento on 09-01-2023 Erythrocyte distribution width (RBC) [Ratio] 14.7 % 11.9-15.[address] [facility] Ferritinon 09-01-2023 Ferritin [Mass/Vol] 16.5 ng/mL Normal 11.0-306.8 [facility] Comment on above: Performed By: #### V [id number], BHANU, RENAL, [id number], ADDONUAPLUS, PROCRERAT, FLAKO, MG, PTH, PT, CBCNO, PTT, URMACRERAT, FE and TIBC #### [facility] [address] Ferritin [Mass/volume] in Se rum or PlasmaOrdered By: Rin Sarmiento on 09-01-2023 Ferritin [Mass/Vol] 16.5 ng/mL 11.0-306.8 [facility] Folate [Mass/volume] in Seru m or PlasmaOrdered By: Rin Sarmiento on 09-01-2023 Folate [Mass/Vol] 16.5 ng/mL >5.9 [facility] Comment on above: Folate reference ran ge: >5.9 ng/mlThe WHO technical consultation on folate and vitamin [id number] has determined that folate concentrations lessthan 4 ng/ml are considered deficient. Glucose [Mass/volume] in Ser um or PlasmaOrdered By: Rin Sarmiento on 09-01-2023 Glucose [Mass/Vol] 121 mg/dL High 70-100 [facility] Comment on above: ADA recommended refe rence rangeRandom Glucose Reference Range is dependent on time and content of last meal. Glucose of more than 200 mg/dL in a nonstressed, ambulatory subject supports the diagnosis of Diabetes Mellitus. Hematocrit Auto (Bld) [Volum e fraction]Ordered By: Rin Sarmiento on 09-01-2023 Hematocrit (Bld) [Volume fraction] 25.0 % Low 34.0-46.[address] [facility] Hemoglobin [Mass/volume] in BloodOrdered By: Rin Sarmiento on 09-01-2023 Hemoglobin (Bld) [Mass/Vol] 8.0 g/dL Low 11.8-15.[address] [facility] Hemogram CBC Without Diffon 09-01-2023 Erythrocyte distribution width (RBC) [Ratio] 14.7 % Normal 11.9-15.3 [facility] Comment on above: Performed By: #### V [id number], BHANU, RENAL, [id number], ADDONUAPLUS, PROCRERAT, FLAKO, MG, PTH, PT, CBCNO, PTT, URMACRERAT, FE and TIBC #### [address] Hematocrit (Bld) [Volume fraction] 25.0 % Low 34.0-46.4 [facility] Comment on above: Performed By: #### V [id number], BHANU, RENAL, [id number], ADDONUAPLUS, PROCRERAT, FLAKO, MG, PTH, PT, CBCNO, PTT, URMACRERAT, FE and TIBC #### [address] Hemoglobin (Bld) [Mass/Vol] 8.0 g/dL Low 11.8-15.4 [facility] Comment on above: Performed By: #### V [id number], BHANU, RENAL, [id number], ADDONUAPLUS, PROCRERAT, FLAKO, MG, PTH, PT, CBCNO, PTT, URMACRERAT, FE and TIBC #### [address] MCH (RBC) [Entitic mass] 29.3 pg Normal 24.7-34.3 [facility] Comment on above: Performed By: #### V [id number], BHANU, RENAL, [id number], ADDONUAPLUS, PROCRERAT, FLAKO, MG, PTH, PT, CBCNO, PTT, URMACRERAT, FE and TIBC #### [address] MCV (RBC) [Entitic vol] 92.0 fL Normal 80-100 [facility] Comment on above: Performed By: #### V [id number], BHANU, RENAL, [id number], ADDONUAPLUS, PROCRERAT, FLAKO, MG, PTH, PT, CBCNO, PTT, URMACRERAT, FE and TIBC #### [address] Mean Corpuscular HGB Conc 31.9 g/dL Low 32.0-35.0 [facility] Comment on above: Performed By: #### V [id number], BHANU, RENAL, [id number], ADDONUAPLUS, PROCRERAT, FLAKO, MG, PTH, PT, CBCNO, PTT, URMACRERAT, FE and TIBC #### [address] Platelet mean volume (Bld) [Entitic vol] 8.1 fL Normal 6.3-10.7 [facility] Comment on above: Result Comment: PERF ORMED BY: [place] [address] PATHOLOGIST [employer] JEWELL ROWLEY M.D. Performed By: #### V [id number], BHANU, RENAL, [id number], ADDONUAPLUS, PROCRERAT, FLAKO, MG, PTH, PT, CBCNO, PTT, URMACRERAT, FE and TIBC #### [address] Platelets (Bld) [#/Vol] 214 10*3/uL Normal 150-450 [facility] Comment on above: Performed By: #### V [id number], BHANU, RENAL, [id number], ADDONUAPLUS, PROCRERAT, FLAKO, MG, PTH, PT, CBCNO, PTT, URMACRERAT, FE and TIBC #### [address] RBC (Bld) [#/Vol] 2.72 10*6/uL Low 3.60-5.00 [facility] Comment on above: Performed By: #### V [id number], BHANU, RENAL, [id number], ADDONUAPLUS, PROCRERAT, FLAKO, MG, PTH, PT, CBCNO, PTT, URMACRERAT, FE and TIBC #### [facility] [address] WBC (Bld) [#/Vol] 4.7 10*3/uL Normal 3.8-11.6 [facility] Comment on above: Performed By: #### V [id number], BHANU, RENAL, [id number], ADDONUAPLUS, PROCRERAT, FLAKO, MG, PTH, PT, CBCNO, PTT, URMACRERAT, FE and TIBC #### [facility] [address] INR in Platelet poor plasma by Coagulation assayOrdered By: Rin Sarmiento on 09-01-2023 INR Coag (PPP) [Relative time] 1.0 {INR} [facility] Comment on above: INR Therapeutic Rang [...] on 09-01-2023 Iron [Mass/Vol] 122 ug/dL 50-[address] [facility] Iron and TIBC Profileon 08-17 % Iron Saturation 33.9 % Normal 20-50 [facility] Comment on above: Performed By: #### V [id number], BHANU, RENAL, [id number], ADDONUAPLUS, PROCRERAT, FLAKO, MG, PTH, PT, CBCNO, PTT, URMACRERAT, FE and TIBC #### [facility] [address] Iron [Mass/Vol] 122 ug/dL Normal 50-212 [facility] Comment on above: Performed By: #### V [id number], BHANU, RENAL, [id number], ADDONUAPLUS, PROCRERAT, FLAKO, MG, PTH, PT, CBCNO, PTT, URMACRERAT, FE and TIBC #### [facility] [address] Total Iron Binding Capacity 360 ug/dL Normal 255-450 [facility] Comment on above: Performed By: #### V [id number], BHANU, RENAL, [id number], ADDONUAPLUS, PROCRERAT, FLAKO, MG, PTH, PT, CBCNO, PTT, URMACRERAT, FE and TIBC #### [facility] [address] [id number] [facility] Transferrin [Mass/Vol] 257 mg/dL Normal 203-362 [facility] Comment on above: Performed By: #### V [id number], BHANU, RENAL, [id number], ADDONUAPLUS, PROCRERAT, FLAKO, MG, PTH, PT, CBCNO, PTT, URMACRERAT, FE and TIBC #### [facility] [address] [id number] [facility] Iron binding capacity [Mass/ volume] in Serum or PlasmaOrdered By: Rin Sarmiento on 09-01-2023 Iron binding capacity [Mass/Vol] 360 ug/dL 255-[address] [facility] Iron saturation [Mass Fracti on] in Serum or PlasmaOrdered By: Rin Sarmiento on 09-01-2023 Iron saturation [Mass fraction] 33.9 % 20-[address] [facility] Ketones Auto test strip (U) [Mass/Vol]Ordered By: Rin Sarmiento on 09-01-2023 Ketones (U) [Mass/Vol] Negative Negative Fi [facility] Nahun 09-01-2023 L Specimen: Received: 09/01/23 Status: SOUT Req Num: [id number] Spec Type: Surgical Subm Dr: Kj Urias Jr, DO Tissues: A Gross Only (RANDOM KIDNEY BX) Procedures: Level 1 Gross Age/ Patient Sex Location Account Attending Physician Margie Martínez 83/F CT [id number] Rin Sarmiento MD SPEC NUM: RECD: 09/01/23 STATUS: MAIA REQ NUM: [id number] DEMAR: 09/01/23 [facility] DR: Kj Urias Jr, DO ENTERED: 09/01/[address]: SPEC TYPE: Surgical DEPT: S ORDERED: Level 1 Gross ORDERED: Level 1 Gross Supplemental Report Addendum 1 Entered: 09/03/23 Supplemental for findings of Consultation Report from [facility] in [facility]: DIAGNOSIS: -Fibrillary Glomerulopathy -Arterionephrosclerosis Note: -Please also see entire report on file for detailed description Addendum Signed (signature on file) Chris Lin MD 09/03/23932 Specimen: [id number] Received: 09/01/23 Status: MAIA Req Num: [id number] Spec Type: Surgical Subm Dr: Kj Urias Jr, Tissues: A Gross Only (RANDOM KIDNEY BX) Procedures: Level 1 Gross Patient: Dany Martínezguanaco [place] [id number] (Continued) Specimen: [id number] Received: 09/01/23 (Continued) Signed (signature on file) Chris Lin MD 09/03/23 0929 Specimen: Received: 09/01/23 Status: MAIA Cohen Num: [id number] Spec Type: Surgical Subm Dr: Kj Urias Jr, Tissues: A Gross Only (RANDOM KIDNEY BX) Procedures: Level 1 Gross Patient: aDny Martínezguanaco [place] [id number] (Continued) Specimen: [id number] Received: 09/01/23 (Continued) Pathological Diagnosis Right kidney random core biopsy: -3 feldman-pink needle cores to be placed in special fixation solutions and to be forwarded to [facility] for final consultation interpretation. Gross only examination Gross Description In formalin labeled right kidney tissue are three feldman-pink needle cores ranging in size from 1.4 cm to 1.9 cm long x 0.1 cm average diameter. Submitted entirely in Lewis's solution and in 10% neutral buffered formalin. RG/LUIGI Clinical history: ANGELINA, proteinuria, hypoalbuminemia CPT Codes 48715 Specimen: [id number] Received: 09/01/23 Status: MAIA Cohen Num: [id number] Spec Type: Surgical Subm Dr: Kj Urias Jr, Tissues: A Gross Only (RANDOM KIDNEY BX) Procedures: Level 1 Gross Patient: Margie Martínez [id number] (Continued) Signed (signature on file) Chris Lin MD 09/03/23 0929 Normal [facility] Laboratory - UrinalysisOrder ed By: Rin Sarmiento on 09-01-2023 Hyaline casts LM Ql (Urine sed) 0-8 [LPF] 0-[address] [facility] Leukocytes [#/volume] correc katy for nucleated erythrocytes in Blood by Automated counOrdered By: Rin Sarmiento on 09-01-2023 WBC corrected for nucl RBC Auto (Bld) [#/Vol] 4.7 10*3/uL 3.8-11.[address] [facility] MCH Auto (RBC) [Entitic mass ]Ordered By: Rin Sarmiento on 09-01-2023 MCH (RBC) [Entitic mass] 29.3 pg 24.7-34.[address] [facility] MCHC Auto (RBC) [Mass/Vol]Or dered By: Rin Sarmiento on 09-01-2023 MCHC (RBC) [Mass/Vol] 31.9 g/dL Low 32.0-35.0 [facility] MCV Auto (RBC) [Entitic vol] Ordered By: Rin Sarmiento on 09-01-2023 MCV (RBC) [Entitic vol] 92.0 fL 80-[address] [facility] Magnesiumon 09-01-2023 Magnesium [Mass/Vol] 1.9 mg/dL Normal 1.9-2.7 [facility] Comment on above: Performed By: #### V [id number], BHANU, RENAL, [id number], ADDONUAPLUS, PROCRERAT, FLAKO, MG, PTH, PT, CBCNO, PTT, URMACRERAT, FE and TIBC #### [facility] [address] Magnesium [Mass/volume] in S adriana or PlasmaOrdered By: Rin Sarmiento on 09-01-2023 Magnesium [Mass/Vol] 1.9 mg/dL 1.9-2.7 [facility] MicroAlb Creat Ratio,Uon Albumin DL <= 20 mg/L (U) [Mass/Vol] mg/dL High 0.0-1.8 [facility] Comment on above: Performed By: #### V [id number], BHANU, RENAL, [id number], ADDONUAPLUS, PROCRERAT, FLAKO, MG, PTH, PT, CBCNO, PTT, URMACRERAT, FE and TIBC #### [facility] [address] [place] [address] Creatinine, Urine (Random) 52.0 mg/dL Normal [facility] Comment on above: Result Comment: No r eference range established Performed By: #### V [id number], BHANU, RENAL, [id number], ADDONUAPLUS, PROCRERAT, FLAKO, MG, PTH, PT, CBCNO, PTT, URMACRERAT, FE and TIBC #### [address] Microalbumin/Creatinin e Ratio Not performed Normal 0.0-30.0 [facility] Comment on above: Performed By: #### V [id number], BHANU, RENAL, [id number], ADDONUAPLUS, PROCRERAT, FLAKO, MG, PTH, PT, CBCNO, PTT, URMACRERAT, FE and TIBC #### [facility] [address] [place] [address] Microalbumin [Mass/volume] i n UrineOrdered By: Rin Sarmiento on 09-01-2023 Albumin DL <= 20 mg/L (U) [Mass/Vol] mg/dL High 0.0-1.[address] [facility] Nitrite Test strip Ql (U)Ord ered By: Rin Sarmiento on 09-01-2023 Nitrite Ql (U) Negative Negative [facility] No Panel InformationOrdered By: Rin Alesilvialawanda on 09-01-2023 Estimated GFR (CKD-EPI) 24.043 mL/Min [facility] Creatinine Clearance (Chem 21.[address] [facility] Parathyrin.intact [Mass/volu me] in Serum or PlasmaOrdered By: Rin Sarmiento on 09-01-2023 Parathyrin.intact [Mass/Vol] 188.2 pg/mL High [facility] Parathyroid Hormone Intacton 09-01-2023 Parathyroid Hormone Intact 188.2 pg/mL High [facility] Comment on above: Result Comment: PERF ORMED BY: [place] [address] PATHOLOGIST [employer] JEWELL ROWLEY M.D. Performed By: #### V [id number], BHANU, RENAL, [id number], ADDONUAPLUS, PROCRERAT, FLAKO, MG, PTH, PT, CBCNO, PTT, URMACRERAT, FE and TIBC #### [facility] [address] [place] [address] Partial Thromboplastin Timeo n 09-01-2023 aPTT Coag (Bld) [Time] 30.5 s Normal 25.1-36.5 [facility] Comment on above: Result Comment: A he matocrit value greater than 55% may lead to inaccurate results in coagulation testing. Patients having hematocrit values >55% require a special collection tube for coagulation studies. Please contact the laboratory at [phone] for redraw instructions. PERFORMED BY: [place] [address] PATHOLOGIST [employer] JEWELL ROWLEY M.D. Performed By: #### V [id number], BHANU, RENAL, [id number], ADDONUAPLUS, PROCRERAT, FLAKO, MG, PTH, PT, CBCNO, PTT, URMACRERAT, FE and TIBC #### [facility] [address] [place], [place] [id number] [facility] Phosphate [Mass/volume] in S adriana or PlasmaOrdered By: Rin Sarmiento on 09-01-2023 Phosphate [Mass/Vol] 4.2 mg/dL 2.5-4.5 [facility] Platelet mean volume Auto (B ld) [Entitic vol]Ordered By: Rin Sarmiento on 09-01-2023 Platelet mean volume (Bld) [Entitic vol] 8.1 fL 6.3-10.[address] [facility] Platelets Auto (Bld) [#/Vol] Ordered By: Rin Sarmiento on 09-01-2023 Platelets (Bld) [#/Vol] 214 10*3/uL 150-[address] [facility] Potassium [Moles/volume] in Serum or PlasmaOrdered By: Rin Sarmiento on 09-01-2023 Potassium [Moles/Vol] 4.7 mmol/L 3.5-5.1 [facility] Protein Auto test strip (U) [Mass/Vol]Ordered By: Rin Sarmiento on 09-01-2023 Protein (U) [Mass/Vol] 300 mg/dL High Negative [facility] Protein Creat Ratio Ur Rando mon 09-01-2023 Protein (U) [Mass/Vol] 199 mg/dL High 0-9 [facility] Comment on above: Performed By: #### V [id number], BHANU, RENAL, [id number], ADDONUAPLUS, PROCRERAT, FLAKO, MG, PTH, PT, CBCNO, PTT, URMACRERAT, FE and TIBC #### [facility] [address] Urine Protein/Creatinine Ratio 3827 mg/g{Cre} High 0-200 [facility] Comment on above: Performed By: #### V [id number], BHANU, RENAL, [id number], ADDONUAPLUS, PROCRERAT, FLAKO, MG, PTH, PT, CBCNO, PTT, URMACRERAT, FE and TIBC #### [facility] [address] [place] [address] [place] Protein [Mass/volume] in Uri neOrdered By: Rin Sarmiento on 09-01-2023 Protein (U) [Mass/Vol] 199 mg/dL High 0-9 [facility] Prothrombin Time INRon 08-31 INR Coag (PPP) [Relative time] 1.0 {INR} Normal [facility] Comment on above: Result [...] 3 - 4.5 Performed By: #### V [id number], BHANU, RENAL, [id number], ADDONUAPLUS, PROCRERAT, FLAKO, MG, PTH, PT, CBCNO, PTT, URMACRERAT, FE and TIBC #### [facility] [address] [place] [address] [facility] PT Coag (PPP) [Time] 11.4 s Normal 9.0-12.9 [facility] Comment on above: Result Comment: A he matocrit value greater than 55% may lead to inaccurate results in coagulation testing. Patients having hematocrit values >55% require a special collection tube for coagulation studies. Please contact the laboratory at [phone] for redraw instructions. Performed By: #### V [id number], BHANU, RENAL, [id number], ADDONUAPLUS, PROCRERAT, FLAKO, MG, PTH, PT, CBCNO, PTT, URMACRERAT, FE and TIBC #### [facility] [address] [place] [address] [facility] Prothrombin time (PT)Ordered By: Rin Sarmiento on 09-01-2023 PT Coag (PPP) [Time] 11.4 s 9.0-12.9 [facility] Comment on above: A hematocrit value g reater than 55% may lead to inaccurate results in coagulation testing. Patients having hematocrit values >55% require a special collection tube for coagulation studies. Please contact the laboratory at [phone] for redraw instructions. RBC Auto (Bld) [#/Vol]Ordere d By: Rin Sarmiento on 09-01-2023 RBC (Bld) [#/Vol] 2.72 10*6/uL Low 3.60-5.00 [facility] Renal Function Panelon 08-31 Albumin [Mass/Vol] 3.6 g/dL Normal 3.5-5.7 [facility] Comment on above: Performed By: #### V [id number], BHANU, RENAL, [id number], ADDONUAPLUS, PROCRERAT, FLAKO, MG, PTH, PT, CBCNO, PTT, URMACRERAT, FE and TIBC #### [facility] [address] Anion gap [Moles/Vol] 9.2 mmol/L Normal 6.0-15.0 [facility] Comment on above: Performed By: #### V [id number], BHANU, RENAL, [id number], ADDONUAPLUS, PROCRERAT, FLAKO, MG, PTH, PT, CBCNO, PTT, URMACRERAT, FE and TIBC #### [facility] [address] Calcium [Mass/Vol] 8.9 mg/dL Normal 8.6-10.3 [facility] Comment on above: Performed By: #### V [id number], BHANU, RENAL, [id number], ADDONUAPLUS, PROCRERAT, FLAKO, MG, PTH, PT, CBCNO, PTT, URMACRERAT, FE and TIBC #### [facility] [address] Chloride [Moles/Vol] 107 mmol/L Normal 98-107 [facility] Comment on above: Performed By: #### V [id number], BHANU, RENAL, [id number], ADDONUAPLUS, PROCRERAT, FLAKO, MG, PTH, PT, CBCNO, PTT, URMACRERAT, FE and TIBC #### [facility] [address] CO2 [Moles/Vol] 30.5 mmol/L Normal 21.0-31.0 [facility] Comment on above: Performed By: #### V [id number], BHANU, RENAL, [id number], ADDONUAPLUS, PROCRERAT, FLAKO, MG, PTH, PT, CBCNO, PTT, URMACRERAT, FE and TIBC #### [facility] [address] Creatinine [Mass/Vol] 2.02 mg/dL High 0.60-1.20 [facility] Comment on above: Performed By: #### V [id number], BHANU, RENAL, [id number], ADDONUAPLUS, PROCRERAT, FLAKO, MG, PTH, PT, CBCNO, PTT, URMACRERAT, FE and TIBC #### [facility] [address] Creatinine Clr Calc Pharmacy 21.55 Normal [facility] Comment on above: Performed By: #### V [id number], BHANU, RENAL, [id number], ADDONUAPLUS, PROCRERAT, FLAKO, MG, PTH, PT, CBCNO, PTT, URMACRERAT, FE and TIBC #### [facility] [address] GFR/1.73 sq M.predicted MDRD (S/P/Bld) [Vol rate/Area] 24.043 mL/min/{1.73_m2} Normal [facility] Comment on above: Performed By: #### V [id number], BHANU, RENAL, [id number], ADDONUAPLUS, PROCRERAT, FLAKO, MG, PTH, PT, CBCNO, PTT, URMACRERAT, FE and TIBC #### [facility] [address] Glucose [Mass/Vol] 121 mg/dL High 70-100 [facility] Comment on above: Result Comment: [place] Glucose Reference Range is dependent on time and content of last meal. Glucose of more than 200 mg/dL in a nonstressed, ambulatory subject supports the diagnosis of Diabetes Mellitus. ADA recommended reference range Performed By: #### V [id number], BHANU, RENAL, [id number], ADDONUAPLUS, PROCRERAT, FLAKO, MG, PTH, PT, CBCNO, PTT, URMACRERAT, FE and TIBC #### [address] Phosphate [Mass/Vol] 4.2 mg/dL Normal 2.5-4.5 [facility] Comment on above: Performed By: #### V [id number], BHANU, RENAL, [id number], ADDONUAPLUS, PROCRERAT, FLAKO, MG, PTH, PT, CBCNO, PTT, URMACRERAT, FE and TIBC #### [address] Potassium [Moles/Vol] 4.7 mmol/L Normal 3.5-5.1 [facility] Comment on above: Performed By: #### V [id number], BHANU, RENAL, [id number], ADDONUAPLUS, PROCRERAT, FLAKO, MG, PTH, PT, CBCNO, PTT, URMACRERAT, FE and TIBC #### [address] Sodium [Moles/Vol] 142 mmol/L Normal 136-145 [facility] Comment on above: Performed By: #### V [id number], BHANU, RENAL, [id number], ADDONUAPLUS, PROCRERAT, FLAKO, MG, PTH, PT, CBCNO, PTT, URMACRERAT, FE and TIBC #### [address] Urea nitrogen [Mass/Vol] 32 mg/dL High 7-25 [facility] Comment on above: Performed By: #### V [id number], BHANU, RENAL, [id number], ADDONUAPLUS, PROCRERAT, FLAKO, MG, PTH, PT, CBCNO, PTT, URMACRERAT, FE and TIBC #### [address] Serum or plasma anion gap de terminationOrdered By: Rin Sarmiento on 09-01-2023 Anion gap [Moles/Vol] 9.2 mmol/L 6.0-15.0 [facility] Sodium [Moles/volume] in Ser um or PlasmaOrdered By: Rin Sarmiento on 09-01-2023 Sodium [Moles/Vol] 142 mmol/L 136-145 [facility] Sodium [Moles/volume] in Uri neOrdered By: Rin Sarmiento on 09-01-2023 Sodium (U) [Moles/Vol] 137 mmol/L [facility] Comment on above: No reference range e stablished Sodium, Urine (Random)on Sodium (U) [Moles/Vol] 137 mmol/L Normal [facility] Comment on above: Result Comment: No r eference range established PERFORMED BY: [place] [address] PATHOLOGIST [employer]'S MA[employer] JEWELL ROWLEY M.D. Performed By: #### V [id number], BHANU, RENAL, [id number], ADDONUAPLUS, PROCRERAT, FLAKO, MG, PTH, PT, CBCNO, PTT, URMACRERAT, FE and TIBC #### [address] Specific gravity Auto test s trip (U) [Rel density]Ordered By: Rin Sarmiento on 09-01-2023 Specific gravity (U) [Rel density] 1.015 1.001-1.[address] [facility] Squamous epithelial cells de tection in urine sediment by light microscopyOrdered By: Rin Sarmiento on 09-01-2023 Epithelial cells.squamous LM Ql (Urine sed) 0-1 [HPF] 0-[address] [facility] Transferrin [Mass/volume] in Serum or PlasmaOrdered By: Rin Sarmiento on 09-01-2023 Transferrin [Mass/Vol] 257 mg/dL 203-362 [facility] Urea nitrogen [Mass/volume] in Serum or PlasmaOrdered By: Rin Sarmiento on 09-01-2023 Urea nitrogen [Mass/Vol] 32 mg/dL High 7-[address] [facility] Urine bacteria detection by automated methodOrdered By: Rin Sarmiento on 09-01-2023 Bacteria Auto Ql (U) None seen None Seen [facility] Urine clarity by refractomet ry automatedOrdered By: Rin Sarmiento on 09-01-2023 Clarity Refractometry automated (U) Cloudy Abnormal Clear [facility] Urine glucose measurement by automated test strip (mass/volume)Ordered By: Rin Sarmiento on 09-01-2023 Glucose Auto test strip (U) [Mass/Vol] Normal mg/dL Normal [facility] Urine hemoglobin detection b y automated test stripOrdered By: Rin Sarmiento on 09-01-2023 Hemoglobin Auto test strip Ql (U) 1+ High Negative [facility] Urine leukocyte esterase det ection by automated test stripOrdered By: Rin Sarmiento on 09-01-2023 Leukocyte esterase Auto test strip Ql (U) Negative Negative [facility] Urine microalbumin/creatinin e mass ratioOrdered By: Rin Sarmiento on 09-01-2023 Albumin/Creatinine DL <= 20 mg/L (U) [Mass ratio] TNP [facility] Comment on above: Test not performed Urine protein/creatinine rat ioOrdered By: Rin Sarmiento on 09-01-2023 Protein/Creatinine (U) [Ratio] 3827 mg/g{Cre} High 0-[address] [facility] Urobilinogen Auto test strip (U) [Mass/Vol]Ordered By: Rin Sarmiento on 09-01-2023 Urobilinogen (U) [Mass/Vol] Normal mg/dL Normal [facility] Vit. B12/Folate Profileon Cobalamin (Vitamin B12) [Mass/Vol] 862 pg/mL Normal 180-914 [facility] Comment on above: Performed By: #### V [id number], BHANU, RENAL, [id number], ADDONUAPLUS, PROCRERAT, FLAKO, MG, PTH, PT, CBCNO, PTT, URMACRERAT, FE and TIBC #### [facility] [address] Folate 16.5 ng/mL Normal >5.9 [facility] Comment on above: Result Comment: Arlen te reference range: >5.9 ng/ml The WHO technical consultation on folate and vitamin b12 deficiencies has determined that folate concentrations less than 4 ng/ml are considered deficient. Performed By: #### V [id number], BHANU, RENAL, [id number], ADDONUAPLUS, PROCRERAT, FLAKO, MG, PTH, PT, CBCNO, PTT, URMACRERAT, FE and TIBC #### [facility] [address] [place] [id number] [facility] Vitamin B12 ser/plasOrdered By: Rin Sarmiento on 09-01-2023 Cobalamin (Vitamin B12) [Mass/Vol] 862 pg/mL 180-[address] [facility] Vitamin D 25 Hydroxy Totalon 09-01-2023 Vitamin D 25 Hydroxy Total 18.3 ng/mL Low 30-100 [facility] Comment on above: Result Comment: YULY MIN D STATUS 25([place])VITAMIN D RANGE (ng/mL) Deficient <20 Insufficient 20 to <30 Sufficient 30 to 100 Reference: Rell Grijalva, Xochitl WILLIAMSON, et al. Evaluation,treatment, and prevention of vitamin D deficiency; an Endocrine Society clinical practice guideline. JCEM. 2010; 96(7):1911-30. PERFORMED BY: [place] [address] PATHOLOGIST [employer]IP'S MASTER JEWELL ROWLEY M.D. Performed By: #### V [id number], BAHNU, RENAL, [id number], ADDONUAPLUS, PROCRERAT, FLAKO, MG, PTH, PT, CBCNO, PTT, URMACRERAT, FE and TIBC #### [facility] [address] [place] [id number] [facility] Vitamin D+Metabolites [Mass/ volume] in Serum or PlasmaOrdered By: Rin Sarmiento on 09-01-2023 Vitamin D+Metabolites [Mass/Vol] 18.3 ng/mL Low 30-[address] [facility] Comment on above: VITAMIN D STATUS 25( [place])VITAMIN D RANGE (ng/mL) Deficient <20 Insufficient 20 to <30Sufficient 30 to 100Reference: Rell Grijalva, Xochitl WILLIAMSON, et al. Evaluation,treatment, and prevention of vitamin D deficiency; an Endocrine Society clinical practice guideline. JCEM. 2010; 96(7):1911-30. pH Auto test strip (U)Ordere d By: Domingowalter Aguileraantonia on 09-01-2023 pH (U) 7.0 [pH] 5.0-9.[address] [facility] POCT Protime / INRon 024 INR Coag (PPP) [Relative time] 2.2 {INR} Abnormal 0.8 - 1.2 [facility] Interpretation and review of laboratory results [facility]normal [facility] HbA1c HPLC (Bld) [Mass fract ion]on 08-20-2023 HbA1c (Bld) [Mass fraction] 5.7 % [facility] No Panel Informationon 08-19 Bedside Glucose [address] [facility] No Panel Informationon 08-04 Miscellaneous Test COMMENT . [facility] Comment on above: Test Ordered: [id number] Prot Electro+Interp, 24-Hr UrProtein,Total,Urine 132.1 mg/dL CB Reference Range: Not Estab.Prot,24hr calculated 2741 [H ] mg/24 hr CB Reference Range: 30-150Albumin, U 66.3 % CB Reference Range: .Wrbql-5-Ymcblmnx, U 7.5 % CB Reference Range: .Rekho-7-Dhglwawl, U 10.6 % CB Reference Range: .Beta Globulin, U 11.9 % CB Reference Range: .Gamma Globulin, U 3.7 % CB Reference Range: .M-Tr, % Note: % CB Not Observed Reference Range: Not ObservedM-Tr, mg/24 hr [employer] Reference Range: .Please note: Comment CB Reference Range: .Protein electrophoresis scan will follow via computer,mail, or business office representative delivery.P E Interpretation, U Comment CB Reference Range: .The urine protein electrophoresis pattern reflects thepresence of specific higher molecular mass proteins withmoderate proteinuria. This pattern may be characterized asrepresenting a severe selective glomerular nephropathyindicating increased glomerular permeability. Monoclonalprotein is not apparent.Performed at: [facility] [id number] Director: Deshaun Hunter PhD, Phone: [phone] Activated partial thrombopla stin time (aPTT) in platelet poor plasma by coagulation aon 08-01-2023 aPTT Coag (PPP) [Time] 38.6 s 22.3-36.2 [facility] Atypical perinuclear antineu trophil cytoplasmic antibodies measurementon 08-01-2023 Neutrophil cytoplasmic Ab.perinuclear.atypica l IF (S) [Titer] <1:20 titer Neg:<1:[address] [facility] Comment on above: The atypical pANCA p attern has been observed in asignificant percentage of patients with ulcerative colitis,primary sclerosing cholangitis and autoimmune hepatitis. Automated urine specific gra vity by refractometryon 08-01-2023 Specific gravity Refractometry automated (U) [Rel density] 1.020 1.005-1.[address] [facility] Bilirubin Auto test strip (U ) [Mass/Vol]on 08-01-2023 Bilirubin (U) [Mass/Vol] Negative NEGATIVE [facility] Cefuroxime free [Mass/Vol]on 08-01-2023 Anti-Nuclear Antibody Profile Negative Negative [facility] Comment on above: Performed at: [facility] [address] [id number] Director: Deshaun Hunter PhD, Phone: [phone] Performed at: [facility] [id number] Director: Deshaun Hunter PhD, Phone: [phone] Color Auto (U)on 08-01-2023 Color (U) LT. YELLOW YELLOW [facility] Erythrocyte distribution wid th Auto (RBC) [Ratio]on 08-01-2023 Erythrocyte distribution width (RBC) [Ratio] 13.1 % 11.0-15.[address] [facility] Estimated glomerular filtrat ion rate (GFR) non- Americanon 08-01-2023 GFR/1.73 sq M.predicted among non-blacks MDRD (S/P/Bld) [Vol rate/Area] 27 mL/min/{1.73_m2} >=[address] [facility] Globulin Calc (S) [Mass/Vol] on 08-01-2023 Globulin (S) [Mass/Vol] 3.3 g/dL [facility] Glomerular basement membrane Ab [Units/volume] in Serum by Immunoassayon 08-01-2023 Glomerular basement membrane Ab IA Qn (S) <0.2 units 0.0-0.[address] [facility] Comment on above: Performed at: [facility] [employer] [address] [id number] Director: Jhon Roberts MD, Phone: [phone] at: [employer] [place] [id number] Director: Deshaun Hunter PhD, Phone: [phone] HBV surface Ag IA Qlon 07-31 Hepatitis B Surface Antigen Negative Negative [facility] Comment on above: Performed at: [facility] [address] [id number] Director: Deshaun Hunter PhD, Phone: [phone] Performed at: [facility] [address] [id number] Director: Deshaun Hunter PhD, Phone: [phone] Hematocrit Auto (Bld) [Volum e fraction]on 08-01-2023 Hematocrit (Bld) [Volume fraction] 27.0 % 36.0-48.[address] [facility] Hemoglobin [Mass/volume] in Bloodon 08-01-2023 Hemoglobin (Bld) [Mass/Vol] 7.8 g/dL 12.0-16.[address] [facility] INR in Platelet poor plasma by Coagulation assayon 08-01-2023 INR Coag (PPP) [Relative time] 2.43 {INR} [facility] Comment on above: DESIRED INR:2.0-3.0 CONDITIONS NOT LISTED BELOW2.5-3.5 FOR PROSTHETIC HEART VALVE REPLACEMENT2.5-3.5 RECURRENT THROMBOSIS Immunofixation for Urineon 0 08-01-2023 Interpretation Immunofixation (U) [Interp] Comment . [facility] Comment on above: No monoclonality det ected.Performed at: [facility] [place], [place] [address]ox [place], [place] [id number] Director: Deshaun Hunter PhD, Phone: [phone] Iron binding capacity [Mass/ volume] in Serum or Plasmaon 08-01-2023 Iron binding capacity [Mass/Vol] 270.0 ug/dL 250.0-450. [address] [facility] Iron saturation [Mass Fracti on] in Serum or Plasmaon 08-01-2023 Iron saturation [Mass fraction] 14.8 % [facility] Ketones Auto test strip (U) [Mass/Vol]on 08-01-2023 Ketones (U) [Mass/Vol] Negative NEGATIVE Fi [facility] Laboratory - Chemistry and C hemistry - challengeon 08-01-2023 Albumin [Mass/Vol] 2.7 g/dL 3.4-5.0 [facility] ALP [Catalytic activity/Vol] 50 U/L 46-[address] [facility] ALT [Catalytic activity/Vol] 18 U/L 14-[address] [facility] AST [Catalytic activity/Vol] 12 U/L 15-[address] [facility] Bilirubin [Mass/Vol] 0.2 mg/dL 0.2-1.0 [facility] Calcium [Mass/Vol] 8.8 mg/dL 8.5-10.1 [facility] Chloride [Moles/Vol] 105 mmol/L 98-107 [facility] CO2 [Moles/Vol] 32.1 mmol/L 21.0-32.0 [facility] Cobalamin (Vitamin B12) [Mass/Vol] 603.0 pg/mL 193.0-986. [address] [facility] Creatinine [Mass/Vol] 1.80 mg/dL 0.55-1.02 [facility] Ferritin [Mass/Vol] 32.0 ng/mL 8.0-252.0 [facility] GFR/1.73 sq M.predicted MDRD (S/P/Bld) [Vol rate/Area] 33 mL/min/{1.73_m2} >=[address] [facility] Glucose [Mass/Vol] 112 mg/dL 74-106 [facility] Iron [Mass/Vol] 40.0 ug/dL 50.0-170.[address] [facility] Magnesium [Mass/Vol] 1.9 mg/dL 1.8-2.4 [facility] Potassium [Moles/Vol] 4.3 mmol/L 3.5-5.1 [facility] Protein [Mass/Vol] 6.0 g/dL 6.4-8.2 [facility] Sodium [Moles/Vol] 145 mmol/L 136-145 [facility] Urea nitrogen [Mass/Vol] 33.0 mg/dL 7.0-18.[address] [facility] Urea nitrogen/Creatinine [Mass ratio] 18.3 mg/mg [facility] Laboratory - Urinalysison Protein (U) [Mass/Vol] 181.1 mg/dL <=11.9 F [facility] Leukocytes [#/volume] correc katy for nucleated erythrocytes in Blood by Automated counon 08-01-2023 WBC corrected for nucl RBC Auto (Bld) [#/Vol] 6.4 10 3/uL 4.0-11.[address] [facility] MCH Auto (RBC) [Entitic mass ]on 08-01-2023 MCH (RBC) [Entitic mass] 29.2 pg 26.7-34.[address] [facility] MCHC Auto (RBC) [Mass/Vol]on 08-01-2023 MCHC (RBC) [Mass/Vol] 28.9 g/dL 29.9-35.2 [facility] MCV Auto (RBC) [Entitic vol] on 08-01-2023 MCV (RBC) [Entitic vol] 101.1 fL 81.0-99.[address] [facility] Myeloperoxidase Ab [Units/vo lume] in Serum by Immunoassayon 08-01-2023 Myeloperoxidase Ab IA Qn (S) <0.2 units 0.0-0.[address] [facility] No Panel Informationon 07-31 25-Hydroxy Vitamin D Total 16.6 ng/mL [facility] Comment on above: <20 ng/mL Vit D defi cient20-<30 ng/mL Vit D -895 ng/mL Vit D sufficient>100 ng/mL Potential Toxicity Folate 13.00 ng/mL 8.60-58.[address] [facility] Miscellaneous Test COMMENT . [facility] Comment on above: Test Ordered: [id number] Cryoglobulin, Ql, Serum, RflxCryoglobulin, Ql, Serum, Rflx Comment Reference Range: None detectedNone Detected at 72 hoursThis test was developed and its performance characteristicsdetermined by [employer]. It has not been cleared orapproved by the Food and Drug Administration.Performed at: - [facility] [address] [id number] Director: Deshaun Hunter PhD, Phone: [phone] Parathyroid Hormone (Intact) 60 pg/mL [facility] Comment on above: Performed at: - [facility] [address] [id number] Director: Deshaun Hunter PhD, Phone: [phone] Perinuclear ANCA (p-ANCA) Antibody <1:20 titer Neg:<1:[address] [facility] Comment on above: The presence of posi tive fluorescence exhibiting P-ANCA orC-ANCA patterns alone is not specific for the diagnosis ofWegener's Granulomatosis (WG) or microscopic polyangiitis.Decisions about treatment should not be based solely onANCA IFA results. The International ANCA Group Consensusrecommends follow up testing of positive sera with both FL-3 and MPO-ANCA enzyme immunoassays. As many as 5% serumsamples are positive only by EIA. Ref. AM J Clin [id number];111:507-513. Phosphorus Level 3.8 mg/dL 2.6-4.7 [facility] Urine Random Creatinine 27.68 mg/dL 20.00-300. [address] [facility] Platelet mean volume Auto (B ld) [Entitic vol]on 08-01-2023 Platelet mean volume (Bld) [Entitic vol] 10.5 fL 9.5-13.[address] [facility] Platelets Auto (Bld) [#/Vol] on 08-01-2023 Platelets (Bld) [#/Vol] 227 10 3/uL 150-[address] [facility] Protein Auto test strip (U) [Mass/Vol]on 08-01-2023 Protein (U) [Mass/Vol] 100 mg/dL NEG/TRACE Fi [facility] Proteinase 3 Ab [Units/volum e] in Serum by Immunoassayon 08-01-2023 Proteinase 3 Ab IA Qn (S) <0.2 units 0.0-0.[address] [facility] Prothrombin time (PT)on 07-17 PT Coag (PPP) [Time] 24.5 s 9.0-11.6 [facility] RBC Auto (Bld) [#/Vol]on RBC (Bld) [#/Vol] 2.67 10 6/uL 4.20-5.40 [facility] Serum classic neutrophil cyt oplasmic antibody titer by immunofluorescenceon 08-01-2023 Neutrophil cytoplasmic Ab.classic IF (S) [Titer] <1:20 titer Neg:<1:[address] [facility] Serum or plasma albumin/glob ulin mass ratioon 08-01-2023 Albumin/Globulin [Mass ratio] 0.8 {ratio} [facility] Serum or plasma anion gap de terminationon 08-01-2023 Anion gap [Moles/Vol] 12.2 mmol/L [facility] Serum or plasma complement C 3 measurement (mass/volume)on 08-01-2023 Complement C3 [Mass/Vol] 140 mg/dL 82-[address] [facility] Serum or plasma complement C 4 measurement (mass/volume)on 08-01-2023 Complement C4 [Mass/Vol] 30 mg/dL 12-[address] [facility] Comment on above: Performed at: [place] [id number] Director: Deshaun Hunter PhD, Phone: [phone] Specific gravity Auto test s trip (U) [Rel density]on 08-01-2023 Specific gravity (U) [Rel density] CLEAR CLEAR [facility] Urine glucose measurement by test strip (mass/volume)on 08-01-2023 Glucose Test strip (U) [Mass/Vol] Negative NEGATIVE [facility] Urine hemoglobin detection b y automated test stripon 08-01-2023 Hemoglobin Auto test strip Ql (U) LARGE NEGATIVE [facility] Urine nitrite detection by a utomated test stripon 08-01-2023 Nitrite Auto test strip Ql (U) Negative NEGATIVE [facility] Urine protein/creatinine rat ioon 08-01-2023 Protein/Creatinine (U) [Ratio] 6.[address] [facility] Urobilinogen Auto test strip (U) [Mass/Vol]on 08-01-2023 Urobilinogen Qn (U) 0.2 {Radha'U}/dL 0.2-1.[address] [facility] pH Auto test strip (U)on pH (U) 7.0 [pH] 5.0-9.[address] [facility] POCT EKGon 07-30-2023 [facility] POCT Protime / INRon 024 INR Coag (PPP) [Relative time] 2.3 {INR} Abnormal 0.8 - 1.2 [facility] Interpretation and review of laboratory results Abnormal [facility] POCT Protime / INRon 024 INR Coag (PPP) [Relative time] 2.2 {INR} Abnormal 0.8 - 1.2 [facility] Interpretation and review of laboratory results Abnormal [facility] POCT Protime / INRon 024 INR Coag (PPP) [Relative time] 1.4 {INR} Abnormal 0.8 - 1.2 [facility] Interpretation and review of laboratory results Abnormal [facility] POCT Protime / INRon 024 INR Coag (PPP) [Relative time] 1.8 {INR} Abnormal 0.8 - 1.2 [facility] Interpretation and review of laboratory results Abnormal [facility] POCT Protime / INRon 024 INR Coag (PPP) [Relative time] 3.2 {INR} Abnormal 0.8 - 1.2 [facility] Interpretation and review of laboratory results Abnormal [facility] POCT Protime / INRon 024 INR Coag (PPP) [Relative time] 2.3 {INR} Abnormal 0.8 - 1.2 [facility] Interpretation and review of laboratory results Abnormal [facility] POCT Protime / INRon 024 INR Coag (PPP) [Relative time] 3.5 {INR} Abnormal 0.8 - 1.2 [facility] Interpretation and review of laboratory results Abnormal [facility] BASIC METABOLIC PANLon 06-02 Anion gap [Moles/Vol] 9 mmol/L Normal 5-15 [facility] Comment on above: Performed By: #### L IVR, BMP, THYR #### [facility] ([id number]) [address], [address] [place] [address] Calcium [Mass/Vol] 9.0 mg/dL Normal 8.5-10.5 [facility] Comment on above: Performed By: #### L IVR, BMP, THYR #### [facility] ([id number]) [address], [address] [place] [address] Chloride [Moles/Vol] 106 mmol/L Normal 98-109 [facility] Comment on above: Performed By: #### L IVR, BMP, THYR #### [facility] ([id number]) [address], [address] [place] [address] CO2 [Moles/Vol] 30 mmol/L Normal 22-32 [facility] Comment on above: Performed By: #### L IVR, BMP, THYR #### [facility] ([id number]) [address], [address] [place] [address] Creatinine [Mass/Vol] 1.58 mg/dL High 0.40-1.00 [facility] Comment on above: Result Comment: METH OD TRACEABLE TO IDMS STANDARD Performed By: #### L IVR, BMP, THYR #### [facility] ([id number]) [address], [address] [place] [address] GFR/1.73 sq M.predicted among non-blacks MDRD (S/P/Bld) [Vol rate/Area] 32 mL/min/{1.73_m2} Low >59 [facility] Comment on above: Result Comment: Reported eGFR is based on the CKD-EPI 2020 equation that does not use a race coefficient. Performed By: #### L IVRGEORGES, THYR #### [facility] ([id number]) [address], [address] [place] [address] Glucose [Mass/Vol] 125 mg/dL High 65-99 [facility] Comment on above: Performed By: #### L IVR, BMP, THYR #### [facility] ([id number]) [address], [facility] [address] [place] [address] Potassium [Moles/Vol] 4.3 mmol/L Normal 3.5-5.0 [facility] Comment on above: Performed By: #### L IVR, BMP, THYR #### [facility] ([id number]) [address], [address] [place] [address] Sodium [Moles/Vol] 145 mmol/L Normal 134-146 [facility] Comment on above: Performed By: #### L IVR, BMP, THYR #### [facility] ([id number]) [address], [address] [place] [address] Urea nitrogen [Mass/Vol] 28 mg/dL High 5-27 [facility] Comment on above: Performed By: #### L IVR, BMP, THYR #### [facility] ([id number]) [address], [address] [place] [address] LIVER PANELon 06-02-2023 Albumin [Mass/Vol] 3.3 g/dL Normal 3.2-5.3 [facility] Comment on above: Performed By: #### L IVR, BMP, THYR #### [facility] ([id number]) [address], [address] [place] [address] ALP [Catalytic activity/Vol] 40 U/L Normal 39-130 [facility] Comment on above: Performed By: #### L IVR, BMP, THYR #### [facility] ([id number]) [address], [address] [place] [address] ALT [Catalytic activity/Vol] 10 U/L Normal 0-31 [facility] Comment on above: Performed By: #### L IVR, BMP, THYR #### [facility] ([id number]) [address], [address] [place] [address] AST [Catalytic activity/Vol] 10 U/L Normal 0-41 [facility] Comment on above: Performed By: #### L IVR, BMP, THYR #### [facility] ([id number]) [address], [address] [place] [address] Bilirubin [Mass/Vol] 0.2 mg/dL Low 0.3-1.2 [facility] Comment on above: Performed By: #### L IVR, BMP, THYR #### [facility] ([id number]) [address], [address] [place] [address] Bilirubin.direct [Mass/Vol] 0.0 mg/dL Normal 0.0-0.4 [facility] Comment on above: Performed By: #### L IVR, BMP, THYR #### [facility] ([id number]) [address], [address] [place] [address] Protein [Mass/Vol] 5.6 g/dL Low 6.0-8.0 [facility] Comment on above: Performed By: #### L IVR, BMP, THYR #### [facility] ([id number]) [address] [place] [address] POCT Protime / INRon 024 INR Coag (PPP) [Relative time] 4.7 {INR} Abnormal 0.8 - 1.2 [facility] Interpretation and review of laboratory results Abnormal [facility] THYROID PROFILEon 06-02-2023 Free T4 [Mass/Vol] 0.96 ng/dL Normal 0.61-1.60 [facility] Comment on above: Performed By: #### L IVR, BMP, THYR #### [facility] ([id number]) [address], [address] [place] [address] TSH 7.63 uIU/mL High 0.49-4.67 [facility] Comment on above: Performed By: #### L IVR, BMP, THYR #### [facility] ([id number]) [address] [place] [address] POCT EKGOrdered By: Latia Garcia on 05-28-2023 [facility] POCT Protime / INRon 024 INR Coag (PPP) [Relative time] 3.3 {INR} Abnormal 0.8 - 1.2 [facility] Interpretation and review of laboratory results Abnormal [facility] POCT Protime / INRon 024 INR Coag (PPP) [Relative time] 4.6 {INR} Abnormal 0.8 - 1.2 [facility] Interpretation and review of laboratory results Abnormal [facility] A1C HEMOGLOBINon 02-19-2023 HbA1c (Bld) [Mass fraction] 5.8 % [employer] Other Glucose - FINGER STICKon Glucose [Mass/Vol] 174 mg/dL [employer] Other HbA1c (Bld) [Mass fraction]o n 02-19-2023 A1C HEMOGLOBIN [facility] [employer] Other PROF 14(COMP METB)on 023 Albumin [Mass/Vol] 2.9 g/dL Critically low 3.4-5.0 Th e [facility] Comment on above: Performed By: #### C MP #### [facility] [address] [place] [address] Dr. Lamar Lin Albumin/Globulin [Mass ratio] 0.8 {ratio} Normal [facility] Comment on above: Performed By: #### C MP #### [facility] [address] [address] [address] Lamar Lin ALP [Catalytic activity/Vol] 70 U/L Normal 46-116 [facility] Comment on above: Performed By: #### C MP #### [facility] [address] [address] [address] Lamar Lin ALT [Catalytic activity/Vol] 14 U/L Normal 14-59 [facility] Comment on above: Performed By: #### C MP #### [facility] [address] [address] [address] Lamar Lin Anion gap [Moles/Vol] 10.5 mmol/L Normal [facility] Comment on above: Performed By: #### C MP #### [facility] [address] [place] [address] Dr. Lamar Lin AST [Catalytic activity/Vol] 10 U/L Critically low 15-37 [facility] Comment on above: Performed By: #### C MP #### [facility] [address] [address] [address] Lamar Lin Bilirubin [Mass/Vol] 0.2 mg/dL Normal 0.2-1.0 [facility] Comment on above: Performed By: #### C MP #### [facility] [address] [address] [address] Lamar Lin Calcium [Mass/Vol] 9.4 mg/dL Normal 8.5-10.1 [facility] Comment on above: Performed By: #### C MP #### [facility] [address] [address] [address] Lamar Lin Chloride [Moles/Vol] 104 mmol/L Normal 98-107 [facility] Comment on above: Performed By: #### C MP #### [facility] [address] [address] [address] Lamar Lin CO2 [Moles/Vol] 34.9 mmol/L Critically high 21.0-32.0 [facility] Comment on above: Performed By: #### C MP #### [facility] [address] [address] [address] Lamar Lin Creatinine [Mass/Vol] 0.96 mg/dL Normal 0.55-1.02 [facility] Comment on above: Performed By: #### C MP #### [facility] [address] [address] [address] Lamar Lin EGFR-AF NAMIBIAN >60 Normal >=60 [facility] Comment on above: Performed By: #### C MP #### [facility] [address] [address] [address] Lamar Lin EGFR-NON AF NAMIBIAN 56 mL/min/1.73m2 Critically low >=60 [facility] Comment on above: Performed By: #### C MP #### [facility] [address] [address] [address] Lamar Lin Globulin (S) [Mass/Vol] 3.7 g/dL Normal [facility] Comment on above: Performed By: #### C MP #### [facility] [address] [address] [address] Lamar Lin Glucose [Mass/Vol] 132 mg/dL Critically high 74-106 [facility] Comment on above: Performed By: #### C MP #### [facility] [address] [address] [address] Lamar Lin Potassium [Moles/Vol] 4.4 mmol/L Normal 3.5-5.1 [facility] Comment on above: Performed By: #### C MP #### [facility] [address] [address] [address] Lamar Lin Protein [Mass/Vol] 6.6 g/dL Normal 6.4-8.2 [facility] Comment on above: Performed By: #### C MP #### [facility] [address] [address] [address] Lamar Lin Sodium [Moles/Vol] 145 mmol/L Normal 136-145 [facility] Comment on above: Performed By: #### C MP #### [facility] [address] [place], [place] [address] Dr. Lamar Lin Urea nitrogen [Mass/Vol] 28.0 mg/dL Critically high 7.0-18.0 [facility] Comment on above: Performed By: #### C MP #### [facility] [address] [place], [place] [address] Dr. Lamar Lin Urea nitrogen/Creatinine [Mass ratio] 29.2 mg/mg Normal [facility] Comment on above: Performed By: #### C MP #### [facility] [address] [place], [place] [address] Dr. Lamar Lin A1C with Estimated Average G karinn 08-19-2022 HbA1c (Bld) [Mass fraction] 6.500 % High 4.3-5.6 % [employer] Other HbA1c (Bld) [Mass fraction] 140 mg/dL [employer] Other Comprehensive Metabolic Pane nahun 08-19-2022 Albumin [Mass/Vol] 3.592419 g/dL Normal 3.5-5.7 g/dL [employer] Other Albumin/Globulin [Mass ratio] 1.7 {ratio} [employer] Other ALP [Catalytic activity/Vol] 56 U/L Normal 34-104 U/L [employer] Other ALT [Catalytic activity/Vol] 14 U/L Normal 7-52 U/L [employer] Other AST [Catalytic activity/Vol] 15 U/L Normal 13-39 U/L [employer] Other Bilirubin [Mass/Vol] 0.4878505 mg/dL Low 0.3- 1.0 mg/dL [employer] Other Calcium [Mass/Vol] 9.7989665 mg/dL Normal 8.6-10 .3 mg/dL [employer] Other Chloride [Moles/Vol] 103 mmol/L Normal 98-107 mmol/L [employer] Other CO2 [Moles/Vol] 34.10576915 mmol/L High 21.0-3 1.0 mmol/L [employer] Other Creatinine [Mass/Vol] 0.46082054 mg/dL Normal 0. 60-1.20 mg/dL [employer] Other GFR/1.73 sq M.predicted MDRD (S/P/Bld) [Vol rate/Area] mL/min/{1.73_m2} [employer] Other Glucose [Mass/Vol] 156 mg/dL High 70-100 mg/dL [employer] Other Potassium [Moles/Vol] 4.36977448 mmol/L Normal 3 .5-5.1 mmol/L [employer] Other Protein [Mass/Vol] 5.862543 g/dL Low 6.4-8.9 g/dL [employer] Other Sodium [Moles/Vol] 144 mmol/L Normal 136-145 mmol/L [employer] Other Urea nitrogen [Mass/Vol] 24 mg/dL Normal 7-25 mg/dL [employer] Other Comprehensive Metabolic Panel 2.1 g/dL [employer] Other Glucose - FINGER STICKon Glucose [Mass/Vol] 205 mg/dL [employer] Other Lipid Panelon 08-19-2022 Cholesterol [Mass/Vol] 172 mg/dL Normal 140-2 00 mg/dL [employer] Other Cholesterol in HDL [Mass/Vol] 33 mg/dL Low 35-85 mg/dL [employer] Other Cholesterol in LDL Elph Qn 95 mg/dL Normal 0-100 mg/dL [employer] Other Cholesterol.total/Chol esterol in HDL [Mass ratio] 5.2 {ratio} <5.0 [facility] Other Lipid Panel 219 mg/dL High 0-149 mg/dL [employer] Other Lipid Panel 43 mg/dL [employer] Other MicroAlb Creat Ratio,Uon Albumin DL <= 20 mg/L (U) [Mass/Vol] mg/dL High 0.0-1.8 [facility] Other Albumin/Creatinine DL <= 20 mg/L (U) [Mass ratio] TNP 0.0-30.0 [employer] Other Creatinine (U) [Mass/Vol] 52.7081250 mg/dL [employer] Other Vitamin B12on 08-19-2022 Cobalamin (Vitamin B12) [Mass/Vol] 345 pg/mL Normal 180-914 pg/mL [facility] Other A1C HEMOGLOBINon 02-27-2022 HbA1c (Bld) [Mass fraction] 6.1 % [facility] Other Glucose - FINGER STICKon Glucose [Mass/Vol] 159 mg/dL [facility] Other HbA1c (Bld) [Mass fraction]o n 02-27-[address] [facility] [employer] Other FREE T4on 10-30-2021 Free T4 [Mass/Vol] 1.11 ng/dL Normal 0.76-1.46 [facility] Comment on above: Performed By: #### F T4 #### [facility] [address] [place], [place] [address] Dr. Lamar Lin T4on 10-30-2021 T4 [Mass/Vol] 8.30 ug/dL Normal 4.80-13.90 [facility] Comment on above: Performed By: #### T 4, TSH #### [facility] [address] [address] [address] Lamar Lin TSHon 10-30-2021 TSH 2.475 uIU/mL Normal 0.358-3.74 0 [facility] Comment on above: Performed By: #### T 4, TSH #### [facility] [address] [address] [address] Lamar Lin Glucoseon 05-23-2021 Glucose [Mass/Vol] 167 mg/dL [employer] Other Vital Signs Date Time Vital Sign Value Performing Clinician Facility 03-16-2024 13:41-0400 Body height 152.4 cm Lucirobert Gant DPM Work Phone: [facility] 03-16-2024 13:41-0400 Body mass index (BMI) [Ratio] 39.06 kg/m2 Lucirobert Gant DPM Work Phone: [facility] 03-16-2024 13:41-0400 Body weight 90.72 kg Luci Stalin DPM Work Phone: [facility] 03-02-2024 08:56-0400 Body height 152.4 cm [facility] 03-02-2024 08:56-0400 Body mass index (BMI) [Ratio] 39.4 kg/m2 [facility] 03-02-2024 08:56-0400 Body temperature 97.7 [degF] [facility] 03-02-2024 08:56-0400 Body weight 91.62 kg [facility] 03-02-2024 08:56-0400 Diastolic blood pressure 60 mm[Hg] [facility] 03-02-2024 08:56-0400 Heart rate 63 /min [facility] 03-02-2024 08:56-0400 Inhaled oxygen flow rate 2 L/min [facility] 03-02-2024 08:56-0400 Respiratory rate 18 /min [facility] 03-02-2024 08:56-0400 SaO2% (BldA) [Mass fraction] 97 % [facility] 03-02-2024 08:56-0400 Systolic blood pressure 114 mm[Hg] [facility] 02-10-2024 10:30-0400 Body height 152.4 cm [facility] 02-10-2024 10:30-0400 Body mass index (BMI) [Ratio] 38.7 kg/m2 [facility] 02-10-2024 10:30-0400 Body temperature 97.5 [degF] [facility] 02-10-2024 10:30-0400 Body weight 89.81 kg [facility] 02-10-2024 10:30-0400 Diastolic blood pressure 75 mm[Hg] [facility] 02-10-2024 10:30-0400 Heart rate 70 /min [facility] 02-10-2024 10:30-0400 Inhaled oxygen flow rate 2 L/min [facility] 02-10-2024 10:30-0400 Respiratory rate 18 /min [facility] 02-10-2024 10:30-0400 SaO2% (BldA) [Mass fraction] 97 % [facility] 02-10-2024 10:30-0400 Systolic blood pressure 160 mm[Hg] [facility] 01-27-2024 13:50-0400 Body height 152.4 cm [facility] 01-27-2024 13:50-0400 Body mass index (BMI) [Ratio] 39.6 kg/m2 [facility] 01-27-2024 13:50-0400 Body temperature 98.2 [degF] [facility] 01-27-2024 13:50-0400 Body weight 92.07 kg [facility] 01-27-2024 13:50-0400 Diastolic blood pressure 72 mm[Hg] [facility] 01-27-2024 13:50-0400 Heart rate 72 /min [facility] 01-27-2024 13:50-0400 Inhaled oxygen flow rate 2 L/min [facility] 01-27-2024 13:50-0400 Respiratory rate 18 /min [facility] 01-27-2024 13:50-0400 SaO2% (BldA) [Mass fraction] 98 % [facility] 01-27-2024 13:50-0400 Systolic blood pressure 166 mm[Hg] [facility] 01-13-2024 11:05-0400 Body height 152.4 cm [facility] 01-13-2024 11:05-0400 Body mass index (BMI) [Ratio] 39.6 kg/m2 [facility] 01-13-2024 11:05-0400 Body temperature 97.9 [degF] [facility] 01-13-2024 11:05-0400 Body weight 92 kg [facility] 01-13-2024 11:05-0400 Diastolic blood pressure 70 mm[Hg] [facility] 01-13-2024 11:05-0400 Heart rate 68 /min [facility] 01-13-2024 11:05-0400 Inhaled oxygen flow rate 2 L/min [facility] 01-13-2024 11:05-0400 Respiratory rate 18 /min [facility] 01-13-2024 11:05-0400 SaO2% (BldA) [Mass fraction] 96 % [facility] 01-13-2024 11:05-0400 Systolic blood pressure 128 mm[Hg] [facility] 12-30-2023 13:44-0400 Body height 152.4 cm [facility] 12-30-2023 13:44-0400 Body mass index (BMI) [Ratio] 39.6 kg/m2 [facility] 12-30-2023 13:44-0400 Body temperature 97.6 [degF] [facility] 12-30-2023 13:44-0400 Body weight 92.24 kg [facility] 12-30-2023 13:44-0400 Diastolic blood pressure 68 mm[Hg] [facility] 12-30-2023 13:44-0400 Heart rate 68 /min [facility] 12-30-2023 13:44-0400 Inhaled oxygen flow rate 2 L/min [facility] 12-30-2023 13:44-0400 Respiratory rate 18 /min [facility] 12-30-2023 13:44-0400 SaO2% (BldA) [Mass fraction] 96 % [facility] 12-30-2023 13:44-0400 Systolic blood pressure 131 mm[Hg] [facility] 12-11-2023 11:31-0400 Body height 152.4 cm [facility] 12-11-2023 11:31-0400 Body mass index (BMI) [Ratio] 40.8 kg/m2 [facility] 12-11-2023 11:31-0400 Body temperature 97.1 [degF] [facility] 12-11-2023 11:31-0400 Body weight 94.85 kg [facility] 12-11-2023 11:31-0400 Diastolic blood pressure 60 mm[Hg] [facility] 12-11-2023 11:31-0400 Heart rate 68 /min [facility] 12-11-2023 11:31-0400 Inhaled oxygen flow rate 2 L/min [facility] 12-11-2023 11:31-0400 Respiratory rate 18 /min [facility] 12-11-2023 11:31-0400 SaO2% (BldA) [Mass fraction] 95 % [facility] 12-11-2023 11:31-0400 Systolic blood pressure 130 mm[Hg] [facility] 12-08-2023 10:40-0400 Body height 152.4 cm [facility] 12-08-2023 10:40-0400 Body mass index (BMI) [Ratio] 40.8 kg/m2 [facility] 12-08-2023 10:40-0400 Body weight 94.97 kg [facility] 12-08-2023 10:40-0400 Diastolic blood pressure 61 mm[Hg] [facility] 12-08-2023 10:40-0400 Heart rate 56 /min [facility] 12-08-2023 10:40-0400 Respiratory rate 18 /min [facility] 12-08-2023 10:40-0400 SaO2% (BldA) [Mass fraction] 95 % [facility] 12-08-2023 10:40-0400 Systolic blood pressure 119 mm[Hg] [facility] 11-18-2023 10:03-0400 Body height 152.4 cm [employer] Anika Marsmer Work Phone: [facility] 11-18-2023 10:03-0400 Body mass index (BMI) [Ratio] 39.2 kg/m2 [employer] Anikasophy Marsmer Work Phone: [facility] 11-18-2023 10:03-0400 Body temperature 98 [degF] [employer] Anikasophy Marsmer Work Phone: [facility] 11-18-2023 10:03-0400 Body weight 91.22 kg [employer] Anikasophy Marsmer Work Phone: [facility] 11-18-2023 10:03-0400 Diastolic blood pressure 71 mm[Hg] [employer] Anika Marsmer Work Phone: [facility] 11-18-2023 10:03-0400 Heart rate 70 /min [employer] Anika Marsmer Work Phone: [facility] 11-18-2023 10:03-0400 Inhaled oxygen flow rate 2 L/min [employer] Anika Marsmer Work Phone: [facility] 11-18-2023 10:03-0400 Respiratory rate 16 /min [employer] Anika Marsmer Work Phone: [facility] 11-18-2023 10:03-0400 SaO2% (BldA) [Mass fraction] 94 % [employer] Anika Marsmer Work Phone: [facility] 11-18-2023 10:03-0400 Systolic blood pressure 162 mm[Hg] [employer] Anika Elaine Work Phone: [facility] 11-05-2023 14:04-0400 Body height 152.4 cm [employer] Anikasophy Marsmer Work Phone: [facility] 11-05-2023 14:04-0400 Body mass index (BMI) [Ratio] 39 kg/m2 [employer] Anikasophy Marsmer Work Phone: [facility] 11-05-2023 14:04-0400 Body temperature 98.1 [degF] [employer] Anikasophy Marsmer Work Phone: [facility] 11-05-2023 14:04-0400 Body weight 90.71 kg [employer] Anikasophy Marsmer Work Phone: [facility] 11-05-2023 14:04-0400 Diastolic blood pressure 68 mm[Hg] [employer] Anika Elaine Work Phone: [facility] 11-05-2023 14:04-0400 Heart rate 56 /min [employer] Anikasophy Marsmer Work Phone: [facility] 11-05-2023 14:04-0400 Inhaled oxygen flow rate 2 L/min [employer] Anika Marsmer Work Phone: [facility] 11-05-2023 14:04-0400 Respiratory rate 18 /min [employer] Anika Henry Work Phone: [facility] 11-05-2023 14:04-0400 SaO2% (BldA) [Mass fraction] 92 % [employer] Anika Henry Work Phone: [facility] 11-05-2023 14:04-0400 Systolic blood pressure 136 mm[Hg] [employer] Anikasophy Marsmer Work Phone: [facility] 10-15-2023 13:42-0400 Body height 152.4 cm [employer] Anikasophy Marsmer Work Phone: [facility] 10-15-2023 13:42-0400 Body mass index (BMI) [Ratio] 38.7 kg/m2 [employer] Anika Elaine Work Phone: [facility] 10-15-2023 13:42-0400 Body temperature 97.6 [degF] [employer] Anikasophy Marsmer Work Phone: [facility] 10-15-2023 13:42-0400 Body weight 90.03 kg [employer] Anika Elaine Work Phone: [facility] 10-15-2023 13:42-0400 Diastolic blood pressure 70 mm[Hg] [employer] Anika Elaine Work Phone: [facility] 10-15-2023 13:42-0400 Heart rate 60 /min [employer] Anika Elaine Work Phone: [facility] 10-15-2023 13:42-0400 Inhaled oxygen flow rate 2 L/min [employer] Anika Elaine Work Phone: [facility] 10-15-2023 13:42-0400 Respiratory rate 18 /min [employer] Anika Elaine Work Phone: [facility] 10-15-2023 13:42-0400 SaO2% (BldA) [Mass fraction] 97 % [employer] Anika Elaine Work Phone: [facility] 10-15-2023 13:42-0400 Systolic blood pressure 143 mm[Hg] [employer] Anika Elaine Work Phone: [facility] 09-23-2023 09:37-0400 Body height 152.4 cm [employer] Anika Elaine Work Phone: [facility] 09-23-2023 09:37-0400 Body mass index (BMI) [Ratio] 38.5 kg/m2 [employer] Anika Elaine Work Phone: [facility] 09-23-2023 09:37-0400 Body temperature 97.9 [degF] [employer] Anika Elaine Work Phone: [facility] 09-23-2023 09:37-0400 Body weight 89.44 kg [employer] Anika Elaine Work Phone: [facility] 09-23-2023 09:37-0400 Diastolic blood pressure 72 mm[Hg] [employer] Anika Elaine Work Phone: [facility] 09-23-2023 09:37-0400 Heart rate 67 /min [employer] Anikasophy Marsmer Work Phone: [facility] 09-23-2023 09:37-0400 Inhaled oxygen flow rate 2 L/min [employer] Anikasophy Marsmer Work Phone: [facility] 09-23-2023 09:37-0400 Respiratory rate 18 /min [employer] Anika Elaine Work Phone: [facility] 09-23-2023 09:37-0400 SaO2% (BldA) [Mass fraction] 97 % [employer] Anikasophy Marsmer Work Phone: [facility] 09-23-2023 09:37-0400 Systolic blood pressure 149 mm[Hg] [employer] Anikasophy Marsmer Work Phone: [facility] 09-09-2023 14:15-0400 Body height 152.4 cm [employer] Anika Marsmer Work Phone: [facility] 09-09-2023 14:15-0400 Body mass index (BMI) [Ratio] 38.9 kg/m2 [employer] Anikasophy Marsmer Work Phone: [facility] 09-09-2023 14:15-0400 Body temperature 97.2 [degF] [employer] Anika Marsmer Work Phone: [facility] 09-09-2023 14:15-0400 Body weight 90.49 kg [employer] Anikasophy Marsmer Work Phone: [facility] 09-09-2023 14:15-0400 Diastolic blood pressure 77 mm[Hg] [employer] Anika Elaine Work Phone: [facility] 09-09-2023 14:15-0400 Heart rate 70 /min [employer] Anika Elaine Work Phone: [facility] 09-09-2023 14:15-0400 Inhaled oxygen flow rate 2 L/min [employer] Anika Elaine Work Phone: [facility] 09-09-2023 14:15-0400 Respiratory rate 18 /min [employer] Anika Elaine Work Phone: [facility] 09-09-2023 14:15-0400 SaO2% (BldA) [Mass fraction] 97 % [employer] Anika Elaine Work Phone: [facility] 09-09-2023 14:15-0400 Systolic blood pressure 147 mm[Hg] [employer] Anika Elaine Work Phone: [facility] 09-01-2023 11:35-0400 Diastolic blood pressure 73 mm[Hg] [employer] Anika Elaine Work Phone: [facility] 09-01-2023 11:35-0400 Heart rate 62 /min [employer] Anika Elaine Work Phone: [facility] 09-01-2023 11:35-0400 Inhaled oxygen flow rate 2 L/min [employer] Anika Elaine Work Phone: [facility] 09-01-2023 11:35-0400 Respiratory rate 18 /min [employer] Anika Elaine Work Phone: [facility] 09-01-2023 11:35-0400 SaO2% (BldA) [Mass fraction] 96 % [employer] Anika Elaine Work Phone: [facility] 09-01-2023 11:35-0400 Systolic blood pressure 164 mm[Hg] [employer] Anika Elaine Work Phone: [facility] 09-01-2023 09:17-0400 Body height 152.4 cm [employer] Anika Elaine Work Phone: [facility] 09-01-2023 09:17-0400 Body weight 93.44 kg [employer] Anika Elaine Work Phone: [facility] 08-20-2023 10:20-0400 Body height 152.4 cm [facility] 08-20-2023 10:20-0400 Body mass index (BMI) [Ratio] 40.2 kg/m2 [facility] 08-20-2023 10:20-0400 Body weight 93.44 kg [facility] 08-20-2023 10:20-0400 Diastolic blood pressure 84 mm[Hg] [facility] 08-20-2023 10:20-0400 Heart rate 73 /min [facility] 08-20-2023 10:20-0400 Inhaled oxygen flow rate 2 L/min [facility] 08-20-2023 10:20-0400 Respiratory rate 18 /min [facility] 08-20-2023 10:20-0400 SaO2% (BldA) [Mass fraction] 94 % [facility] 08-20-2023 10:20-0400 Systolic blood pressure 176 mm[Hg] [facility] 08-13-2023 10:41-0400 Body height 152.4 cm [facility] 08-13-2023 10:41-0400 Body mass index (BMI) [Ratio] 40.1 kg/m2 [facility] 08-13-2023 10:41-0400 Body temperature 97.5 [degF] [facility] 08-13-2023 10:41-0400 Body weight 93.15 kg [facility] 08-13-2023 10:41-0400 Diastolic blood pressure 72 mm[Hg] [facility] 08-13-2023 10:41-0400 Heart rate 77 /min [facility] 08-13-2023 10:41-0400 Inhaled oxygen flow rate 2 L/min [facility] 08-13-2023 10:41-0400 Respiratory rate 20 /min [facility] 08-13-2023 10:41-0400 SaO2% (BldA) [Mass fraction] 95 % [facility] 08-13-2023 10:41-0400 Systolic blood pressure 162 mm[Hg] [facility] 07-30-2023 11:44-0400 Body height 165.1 cm Tr SOLORZANO Work Phone: [employer] 07-30-2023 11:44-0400 Body mass index (BMI) [Ratio] 34.28 kg/m2 Tr Jimenez 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 Phone: [facility] 07-30-2023 11:44-0400 Body weight 93.44 kg Tr Jimenez 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 Phone: [facility] 07-30-2023 11:44-0400 Diastolic blood pressure 80 mm[Hg] Tr Jimenez 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 Phone: [facility] 07-30-2023 11:44-0400 Heart rate 59 /min Tr Jimenez 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 Phone: [facility] 07-30-2023 11:44-0400 Systolic blood pressure 140 mm[Hg] Tr Jimenez 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 Phone: [facility] 06-17-2023 12:41-0500 Body height 165.1 cm Iona Delarosa MD Work Phone: [facility] 06-17-2023 12:41-0500 Body mass index (BMI) [Ratio] 33.61 kg/m2 Iona Delarosa MD Work Phone: [facility] 06-17-2023 12:41-0500 Body weight 91.63 kg Iona Delarosa MD Work Phone: [facility] 06-17-2023 12:41-0500 Diastolic blood pressure 70 mm[Hg] Iona Delarosa MD Work Phone: [facility] 06-17-2023 12:41-0500 Heart rate 73 /min Iona Delarosa MD Work Phone: [facility] 06-17-2023 12:41-0500 SaO2% (BldA) [Mass fraction] 97 % Iona Delarosa MD Work Phone: [facility] [facility] 06-17-2023 12:41-0500 Systolic blood pressure 160 mm[Hg] Iona Delarosa MD Work Phone: [employer] 05-28-2023 12:35-0500 Body height 165.1 cm Tr Chhart 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 Phone: [employer] 05-28-2023 12:35-0500 Body mass index (BMI) [Ratio] 33.61 kg/m2 Tr Jimenez 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 Phone: [employer] 05-28-2023 12:35-0500 Body weight 91.63 kg Tr Jimenez 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 Phone: [employer] 05-28-2023 12:35-0500 Diastolic blood pressure 100 mm[Hg] Tr Tset 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 Phone: [employer] 05-28-2023 12:35-0500 Heart rate 64 /min Tr Jimenez 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 Phone: [facility] [employer] 05-28-2023 12:35-0500 SaO2% (BldA) [Mass fraction] 94 % Tr Jimenez 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 Phone: [employer] 05-28-2023 12:35-0500 Systolic blood pressure 200 mm[Hg] Tr Jimenez 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 Phone: [facility] [employer] [facility] 04-22-2023 10:20-0500 Body height 152.4 cm [employer] Other [facility] 04-22-2023 10:20-0500 Body mass index (BMI) [Ratio] 39.64 kg/m2 [employer] Other [facility] [employer] Other 04-22-2023 10:20-0500 Body weight 92.08 kg [employer] Other [facility] [employer] Other 04-22-2023 10:20-0500 Body weight 92.07 kg [facility] 04-22-2023 10:20-0500 Diastolic blood pressure 70 mm[Hg] Rin Darbys Other [facility] 04-22-2023 10:20-0500 Respiratory rate 18 /min Rin Darbys Other [facility] [employer] Other 04-22-2023 10:20-0500 SaO2% (BldA) [Mass fraction] 97 % Rin Darbys Other [facility] [employer] Other 04-22-2023 10:20-0500 Systolic blood pressure 138 mm[Hg] Rin Darbys Other [facility] 02-19-2023 09:15-0400 Body height 152.4 cm Tondra Mapus Other [employer] Other 02-19-2023 09:15-0400 Body mass index (BMI) [Ratio] 40.21 kg/m2 Tondra Mapus Other [employer] Other 02-19-2023 09:15-0400 Body weight 93.4 kg Tondra Mapus Other [employer] Other 02-19-2023 09:15-0400 Diastolic blood pressure 64 mm[Hg] Tondra Mapus Other [employer] Other 02-19-2023 09:15-0400 Respiratory rate 18 /min Tondra Mapus Other [employer] Other 02-19-2023 09:15-0400 SaO2% (BldA) [Mass fraction] 95 % Tondra Mapus Other [employer] Other 02-19-2023 09:15-0400 Systolic blood pressure 129 mm[Hg] Tondra Mapus Other [employer] Other 02-12-2023 09:00-0400 Body height 152.4 cm Tondra Mapus Other [employer] Other 02-12-2023 09:00-0400 Body mass index (BMI) [Ratio] 40.07 kg/m2 Tondra Mapus Other [employer] Other 02-12-2023 09:00-0400 Body weight 93.08 kg Tondra Mapus Other [employer] Other 10-22-2022 10:00-0400 Body height 152.4 cm Aziz [employer] Other [employer] Other 10-22-2022 10:00-0400 Body mass index (BMI) [Ratio] 40.23 kg/m2 Aziz Bakhous Other [employer] Other 10-22-2022 10:00-0400 Body temperature 97.4 [degF] Aziz Bakhous Other [employer] Other 10-22-2022 10:00-0400 Body weight 93.44 kg Aziz Bakhous Other [employer] Other 10-22-2022 10:00-0400 Diastolic blood pressure 78 mm[Hg] Aziz Bakhous Other [employer] Other 10-22-2022 10:00-0400 Respiratory rate 20 /min Aziz Bakhous Other [employer] Other 10-22-2022 10:00-0400 SaO2% (BldA) [Mass fraction] 92 % Rin Sarmiento Other [employer] Other 10-22-2022 10:00-0400 Systolic blood pressure 146 mm[Hg] Rin Sarmiento Other [employer] Other 08-19-2022 10:15-0400 Body height 152.4 cm Tondra Mapus Other [employer] Other 08-19-2022 10:15-0400 Body mass index (BMI) [Ratio] 39.82 kg/m2 Tondra Mapus Other [employer] Other 08-19-2022 10:15-0400 Body weight 92.49 kg Tondra Mapus Other [employer] Other 08-19-2022 10:15-0400 Diastolic blood pressure 63 mm[Hg] Tondra Mapus Other [employer] Other 08-19-2022 10:15-0400 Respiratory rate 20 /min Tondra Mapus Other [employer] Other 08-19-2022 10:15-0400 SaO2% (BldA) [Mass fraction] 95 % Tondra Mapus Other [employer] Other 08-19-2022 10:15-0400 Systolic blood pressure 136 mm[Hg] Tondra Mapus Other [employer] Other 02-27-2022 10:15-0400 Body height 152.4 cm Tondra Mapus Other [employer] Other 02-27-2022 10:15-0400 Body mass index (BMI) [Ratio] 41.79 kg/m2 Tondra Mapus Other [employer] Other 02-27-2022 10:15-0400 Body weight 97.07 kg Tondra Mapus Other [employer] Other 02-27-2022 10:15-0400 Diastolic blood pressure 55 mm[Hg] Tondra Mapus Other [employer] Other 02-27-2022 10:15-0400 Respiratory rate 20 /min Tondra Mapus Other [employer] Other 02-27-2022 10:15-0400 SaO2% (BldA) [Mass fraction] 97 % Tondra Mapus Other [employer] Other 02-27-2022 10:15-0400 Systolic blood pressure 130 mm[Hg] Tondra Mapus Other [employer] Other 10-23-2021 11:00-0400 Body height 152.4 cm [employer] Other [employer] Other 10-23-2021 11:00-0400 Body mass index (BMI) [Ratio] 44.05 kg/m2 [employer] Other [employer] Other 10-23-2021 11:00-0400 Body temperature 97.5 [degF] [employer] Other [employer] Other 10-23-2021 11:00-0400 Body weight 102.33 kg Rin Sarmiento Other [employer] Other 10-23-2021 11:00-0400 Diastolic blood pressure 72 mm[Hg] Rin Darbys Other [employer] Other 10-23-2021 11:00-0400 Respiratory rate 20 /min Rin Darbys Other [employer] Other 10-23-2021 11:00-0400 SaO2% (BldA) [Mass fraction] 94 % Rin Sarmiento Other [employer] Other 10-23-2021 11:00-0400 Systolic blood pressure 135 mm[Hg] Rin Darbys Other [employer] Other 05-23-2021 10:15-0500 Body height 152.4 cm Tondra Mapus Other [employer] Other 05-23-2021 10:15-0500 Body mass index (BMI) [Ratio] 43.25 kg/m2 Tondra Mapus Other [employer] Other 05-23-2021 10:15-0500 Body weight 100.47 kg Tondra Mapus Other [employer] Other 05-23-2021 10:15-0500 Diastolic blood pressure 57 mm[Hg] Tondra Mapus Other [employer] Other 05-23-2021 10:15-0500 Respiratory rate 20 /min Tondra Mapus Other [employer] Other 05-23-2021 10:15-0500 SaO2% (BldA) [Mass fraction] 96 % Chester Lin Other [employer] Other 05-23-2021 10:15-0500 Systolic blood pressure 131 mm[Hg] Chester Lin Other [employer] Other Encounters Encounter Date Encounter Type Care Provider Facility Start: 03-16-2024 End: 03-16-2024 [email or web address] flowsheet Luci Gant DPM Work Phone: [facility] Start: 03-16-2024 End: 03-16-2024 [email or web address] flowsheet Luci Gant DPM Work Phone: [facility] Start: 03-16-2024 End: 03-16-2024 Patient encounter procedure Luci Gant DPM Work Phone: [facility] Comment on above: Dermatophytosis of n ail (Primary Dx); Dystrophic nail; Pain around toenail, right foot; Pain around toenail, left foot Start: 03-03-2024 End: 03-03-2024 Follow-up encounter [facility] Medication Therapy Management Comment on above: PAF (paroxysmal atri al fibrillation) ([facility]) (Primary Dx) Start: 03-03-2024 End: 03-03-2024 ambulatory [facility] Start: 03-02-2024 End: 03-02-2024 ambulatory [facility] Work Phone: Start: 03-02-2024 End: 03-02-2024 Patient encounter procedure [facility]ly [facility] Neph[facility] Sol Work Phone: Start: 02-23-2024 Non-patient / Non-visit Formerly [facility] Work Phone: Start: 02-10-2024 End: 02-10-2024 ambulatory [facility] Work Phone: Start: 02-10-2024 End: 02-10-2024 Patient encounter procedure Formerly [facility] [place] Work Phone: Start: 02-03-2024 Non-patient / Non-visit Formerly [facility] Work Phone: Start: 01-28-2024 End: 01-28-2024 ambulatory [facility] Start: 01-27-2024 End: 01-27-2024 ambulatory [facility] Work Phone: Start: 01-27-2024 End: 01-27-2024 Patient encounter procedure Formerly [facility] [place] Work Phone: Start: 01-23-2024 Non-patient / Non-visit Formerly [facility] Work Phone: Start: 01-20-2024 Non-patient / Non-visit Formerly [facility] Work Phone: Start: 01-13-2024 End: 01-13-2024 ambulatory [facility] Work Phone: Start: 01-13-2024 End: 01-13-2024 Patient encounter procedure Formerly [facility] Nephrology Work Phone: Start: 01-05-2024 Non-patient / Non-visit Formerly [facility] Work Phone: Start: 12-31-2023 End: 12-31-2023 ambulatory [facility] Start: 12-30-2023 End: 12-30-2023 ambulatory [facility] Work Phone: Start: 12-30-2023 End: 12-30-2023 Patient encounter procedure Formerly [facility] Work Phone: Start: 12-11-2023 End: 12-11-2023 ambulatory [facility] Work Phone: Start: 12-11-2023 End: 12-11-2023 Patient encounter procedure Formerly [facility] Nephrology Joseph Work Phone: Start: 12-08-2023 End: 12-08-2023 ambulatory [facility] Work Phone: Start: 12-08-2023 End: 12-08-2023 Patient encounter procedure Formerly [facility] Work Phone: Start: 12-03-2023 End: 12-03-2023 ambulatory [facility] Start: 11-27-2023 Non-patient / Non-visit Formerly [facility] Work Phone: Start: 11-18-2023 End: 11-18-2023 ambulatory MANAGER [employer] Anika Deepa Elaine Work Phone: [facility] Work Phone: Start: 11-18-2023 End: 11-18-2023 Patient encounter procedure MANAGER [employer] Anika Marsmer Work Phone: Formerly [facility] Nephrology Work Phone: Start: 11-13-2023 Non-patient / Non-visit MANAGER [employer] P mellissa Elaine Work Phone: Formerly [facility] Work Phone: Start: 11-12-2023 End: 11-12-2023 ambulatory [facility] Start: 11-05-2023 End: 11-05-2023 ambulatory MANAGER [employer] Anika Deepa Elaine Work Phone: [facility] Work Phone: Start: 11-05-2023 End: 11-05-2023 Patient encounter procedure MANAGER [employer] Anikasophy Marsmer Work Phone: [facility] Nephrology Work Phone: Start: 10-30-2023 Non-patient / Non-visit MANAGER [employer] P mellissa Elaine Work Phone: Formerly [facility] Work Phone: Start: 10-22-2023 End: 10-22-2023 ambulatory [facility] Start: 10-15-2023 End: 10-15-2023 ambulatory [employer]NAGER [employer] Anika Deepa Elaine Work Phone: [facility] Work Phone: Start: 10-15-2023 End: 10-15-2023 Patient encounter procedure MANAGER [employer] Anika Elaine Work Phone: Formerly [facility] Nephrology Work Phone: Start: 10-08-2023 End: 10-08-2023 ambulatory [facility] Start: 10-07-2023 Non-patient / Non-visit MANAGER LIFE-C P mellissa Elaine Work Phone: [facility] Work Phone: Start: 09-23-2023 End: 09-23-2023 ambulatory [facility] Start: 09-23-2023 End: 09-23-2023 ambulatory MANAGER [employer]-C Anika Deepa Elaine Work Phone: [facility] Work Phone: Start: 09-23-2023 End: 09-23-2023 Patient encounter procedure MANAGER [employer]-C Anika Elaine Work Phone: [facility] Nephrology Work Phone: Start: 09-16-2023 End: 09-16-2023 ambulatory [facility] Start: 09-16-2023 Non-patient / Non-visit MANAGER LIFE-C P mlelissa Elaine Work Phone: [facility] Work Phone: Start: 09-11-2023 End: 09-11-2023 ambulatory LUCI GANT Not Available Start: 09-09-2023 End: 09-09-2023 ambulatory MANAGER [employer] Anika Henry Work Phone: [facility] Work Phone: Start: 09-09-2023 End: 09-09-2023 Patient encounter procedure MANAGER LIFE-C Anikasophy Henry Work Phone: [facility] Nephrology Work Phone: Start: 09-01-2023 End: 09-01-2023 ambulatory Anika Henry Facility:[facility] Start: 09-01-2023 End: 09-01-2023 Admission to same day surgery center MANAGER LIFE-C Anika eHnry Work Phone: [facility] [place] Work Phone: Start: 09-01-2023 End: 09-01-2023 ambulatory MANAGER LIFE-C Anika Henry Work Phone: [facility] Work Phone: Start: 08-21-2023 End: 08-21-2023 Follow-up encounter [facility] Medication Therapy Management Comment on above: PAF (paroxysmal atri al fibrillation) ([facility]) (Primary Dx) Start: 08-21-2023 End: 08-21-2023 ambulatory [facility] Start: 08-20-2023 End: 08-20-2023 ambulatory [facility] Work Phone: Start: 08-20-2023 End: 08-20-2023 Patient encounter procedure [facility] Work Phone: Start: 08-20-2023 End: 09-17-2023 ambulatory [facility] Start: 08-13-2023 End: 08-13-2023 ambulatory [facility] Work Phone: Start: 08-13-2023 End: 08-13-2023 Patient encounter procedure Formerly [facility] Nephrology Work Phone: Start: 08-05-2023 Non-patient / Non-visit Formerly [facility] Work Phone: Start: 08-01-2023 Non-patient / Non-visit Formerly [facility] Work Phone: Start: 07-30-2023 End: 07-30-2023 Office outpatient visit 25 minutes Cole Krishnan MD Work Phone: [facility] Cardiology Comment on above: PAF (paroxysmal atri al fibrillation) ([facility]) (Primary Dx); Hyperlipidemia, unspecified hyperlipidemia type; Benign hypertensive heart disease without congestive heart failure Start: 07-30-2023 End: 07-30-2023 Follow-up encounter [facility] Medication Therapy Management Comment on above: PAF (paroxysmal atri al fibrillation) ([facility]) (Primary Dx) Start: 07-30-2023 End: 07-30-2023 ambulatory [facility] Start: 07-29-2023 Telephone encounter Enedelia garay [facility] Card[facility] Start: 07-21-2023 Orders Only Alicia Galvan RN [facility] Pulmonary/Sleep Medicine Comment on above: Shortness of breath; Chronic obstructive pulmonary disease, unspecified COPD type ([facility]) Start: 07-18-2023 End: 07-18-2023 Follow-up encounter [facility] Medication Therapy Management Comment on above: PAF (paroxysmal atri al fibrillation) ([facility]) (Primary Dx) Start: 07-18-2023 End: 07-18-2023 ambulatory [facility] Start: 07-10-2023 End: 07-10-2023 Follow-up encounter [facility] Medication Therapy Management Comment on above: PAF (paroxysmal atri al fibrillation) ([facility]) (Primary Dx) Start: 07-10-2023 End: 07-10-2023 [facility] Start: 07-02-2023 End: 07-02-2023 ambulatory ANITA MCCOY [facility] Start: 06-26-2023 End: 06-26-2023 Follow-up encounter [facility] Medication Therapy Management Comment on above: PAF (paroxysmal atri al fibrillation) ([facility]) (Primary Dx) Start: 06-26-2023 End: 06-26-2023 [facility] Start: 06-20-2023 End: 07-18-2023 ambulatory [facility] Start: 06-17-2023 End: 06-17-2023 Office outpatient visit 15 minutes Iona Delarosa MD Work Phone: [facility] Cardiology Comment on above: PAF (paroxysmal atri al fibrillation) ([facility]) (Primary Dx); Benign hypertensive heart disease without congestive heart failure; 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 ([facility]); Shortness of breath; COPD with acute exacerbation ([facility]) Start: 06-17-2023 End: 06-17-2023 [facility] Medication Therapy Management Comment on above: PAF (paroxysmal atri al fibrillation) ([facility]) (Primary Dx) Start: 06-17-2023 End: 06-17-2023 ambulatory IONA DELAROSA [facility] Start: 06-16-2023 Telephone encounter Enedelia garay [facility] Cardiology Start: 06-10-2023 End: 06-10-2023 Follow-up encounter [facility] Medication Therapy Management Comment on above: PAF (paroxysmal atri al fibrillation) ([facility]) (Primary Dx) Start: 06-10-2023 End: 06-10-2023 ambulatory [facility] Start: 06-09-2023 End: 06-09-2023 ambulatory Chester Lin Other [employer] Other Start: 06-09-2023 Telephone encounter Chester Lin [facility] Start: 06-05-2023 End: 06-05-2023 ambulatory LUCI GANT Not Available Start: 06-05-2023 End: 06-05-2023 Follow-up encounter [facility] Medication Therapy Management Comment on above: PAF (paroxysmal atri al fibrillation) ([facility]) (Primary Dx) Start: 06-05-2023 End: 06-05-2023 ambulatory [facility] Start: 06-03-2023 End: 06-03-2023 ambulatory Rin Sarmiento Other [employer] Other Start: 06-03-2023 Telephone encounter Rin Sarmiento [facility] Nephrology Start: 06-02-2023 End: 06-02-2023 Follow-up encounter [facility] Medication Therapy Management Comment on above: PAF (paroxysmal atri al fibrillation) ([facility]) (Primary Dx) Start: 06-02-2023 End: 06-02-2023 ambulatory ANIKA HENRY [facility] Start: 05-28-2023 End: 05-28-2023 Office outpatient visit 25 minutes Tr Jimenez 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 Phone: [facility] Cardiology Comment on above: PAF (paroxysmal atri al fibrillation) ([facility] [place] [place] (Primary Dx); Ventricular premature beats; Sinus pause; Benign hypertensive heart disease without congestive heart failure; 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 Start: 05-28-2023 End: 07-09-2023 ambulatory TR JIMENEZ [facility] Start: 05-27-2023 End: 05-27-2023 ambulatory Chester Lin Other [employer] Other Start: 05-27-2023 Telephone encounter [facility] Start: 05-26-2023 End: 05-26-2023 Follow-up encounter [facility] Medication Therapy Management Comment on above: PAF (paroxysmal atri al fibrillation) ([facility]) (Primary Dx) Start: 05-26-2023 End: 05-26-2023 [facility] Start: 05-21-2023 End: 05-21-2023 Anticoagulant drug monitoring [facility] Medication Therapy Management Comment on above: PAF (paroxysmal atri al fibrillation) ([facility]) (Primary Dx) Start: 05-21-2023 End: 05-21-2023 [facility] Start: 05-06-2023 End: 05-06-2023 ambulatory [facility] Start: 04-23-2023 End: 04-23-2023 ambulatory Aziz Bakhous Other [employer] Other Start: 04-23-2023 Telephone encounter Aziz Bakhous [facility] Start: 04-22-2023 End: 04-22-2023 ambulatory Aziz Bakhous Other [employer] Other Start: 04-22-2023 Office outpatient vi sit 25 minutes Aziz Bakhous [facility] Start: 04-22-2023 End: 04-22-2023 Patient encounter procedure [facility]ly [facility] Work Phone: Start: 04-21-2023 End: 04-21-2023 ambulatory Aziz Bakhous Other [employer] Other Start: 04-21-2023 Telephone encounter Aziz Bakhous [facility] Start: 02-19-2023 (DM) Diabetes Tondra Delia [facility] Start: 02-19-2023 End: 02-20-2023 ambulatory PHYSICIAN JOHANNA GAXIOLA [employer] Other Start: 02-12-2023 End: 02-12-2023 ambulatory Tondra Mapus Other [employer] Other Start: 02-12-2023 Nursing evaluation o f patient and report Tondra Mapus [facility] Start: 01-24-2023 End: 01-24-2023 ambulatory Tondra Mapus Other [employer] Other Start: 01-24-2023 Telephone encounter Tondra Mapus [facility] Start: 10-30-2022 End: 10-30-2022 ambulatory Tondra Mapus Other [employer] Other Start: 10-30-2022 Telephone encounter Tondra Mapus [facility] Start: 10-22-2022 End: 10-22-2022 ambulatory Aziz Bakhous Other [employer] Other Start: 10-22-2022 Office outpatient vi sit 25 minutes Aziz Bakhous [facility] Start: 10-16-2022 ambulatory ANIKA MARSMER Facility: [facility] Start: 08-20-2022 End: 08-20-2022 ambulatory Tondra Mapus Other [employer] Other Start: 08-20-2022 Telephone encounter Tondra Mapus [facility] Start: 08-19-2022 (DM) Diabetes Tondra Mapus [facility] Start: 08-19-2022 End: 08-19-2022 ambulatory Tondra Mapus Other [employer] Other Start: 08-02-2022 End: 08-02-2022 ambulatory Tondra Mapus Other [employer] Other Start: 08-02-2022 Telephone encounter Tondra Mapus [facility] Start: 05-30-2022 End: 05-30-2022 ambulatory Tondra Mapus Other [employer] Other Start: 05-30-2022 Telephone encounter Tondra Mapus [facility] Start: 05-01-2022 End: 05-01-2022 ambulatory Tondra Mapus Other [employer] Other Start: 05-01-2022 Telephone encounter Tondra Mapus [facility] Start: 04-01-2022 End: 04-01-2022 ambulatory Tondra Mapus Other [employer] Other Start: 04-01-2022 Telephone encounter Tondra Mapus [facility] Start: 02-27-2022 (DM) Diabetes Tondra Mapus [facility] Start: 02-27-2022 End: 02-27-2022 ambulatory Tondra Mapus Other [employer] Other Start: 01-28-2022 End: 01-28-2022 ambulatory Becca Michael Other [employer] Other Start: 01-28-2022 Telephone encounter Becca Michael [facility] Start: 01-09-2022 End: 01-09-2022 ambulatory Tondra Mapus Other [employer] Other Start: 01-09-2022 Telephone encounter Tondra Mapus [facility] Start: 12-31-2021 End: 12-31-2021 ambulatory Tondra Mapus Other [employer] Other Start: 12-31-2021 Telephone encounter Tondra Mapus [facility] Start: 12-17-2021 End: 12-17-2021 ambulatory Tondra Mapus Other [employer] Other Start: 12-17-2021 Telephone encounter Tondra Mapus [facility] Start: 11-25-2021 End: 11-25-2021 ambulatory Tondra Mapus Other [employer] Other Start: 11-25-2021 Telephone encounter Tondra Mapus [facility] Start: 11-02-2021 (FCCC INJ) FCCC Injection Marixa Fitt [facility] Start: 11-02-2021 End: 11-02-2021 ambulatory Marixa Fitt Other [employer] Other Start: 10-30-2021 End: 10-31-2021 ambulatory ANIKA HENRY Facility:[facility] Start: 10-26-2021 End: 10-26-2021 ambulatory Tondra Mapus Other [employer] Other Start: 10-26-2021 Telephone encounter Tondra Mapus [facility] Start: 10-23-2021 End: 10-23-2021 ambulatory Aziz Bakhous Other [employer] Other Start: 10-23-2021 Office outpatient vi sit 15 minutes Aziz Bakhous [facility] Start: 10-22-2021 End: 10-22-2021 ambulatory Tondra Mapus Other [employer] Other Start: 10-22-2021 Telephone encounter Tondra Mapus [facility] Start: 09-10-2021 End: 09-10-2021 ambulatory Tondra Mapus Other [employer] Other Start: 09-10-2021 Telephone encounter Tondra Mapus [facility] Start: 05-23-2021 (DM) Diabetes Tondra Mapus 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 Phone: Start: 07-30-2023 Follow-up visit Follow-up [...] ecg w/le ast 12 lds w/i&r Tr E Tony 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 Phone: Start: 05-26-2023 [employer]th[employer] Work Phone: Start: 05-21-2023 [employer]th[employer] Work Phone: Start: 05-09-2023 Adult depression scr eening assessment Pmh 1 Start: 02-14-2014 Colonoscopy [facility] 1 Plan of Treatment Date Care Activity Detail Author Start: 10-26-2024 Adult BMI Screening Adult BMI Screen ing [facility] Start: 10-26-2024 Tobacco Screening Tobacco Screening [facility] Start: 07-29-2024 Adult BMI Screening Adult BMI Screen ing [facility] Start: 07-29-2024 Tobacco Screening Tobacco Screening [facility] Start: 06-17-2024 Adult BMI Screening Adult BMI Screen ing [facility] Start: 06-17-2024 Tobacco Screening Tobacco Screening [facility] Start: 05-28-2024 Adult BMI Screening Adult BMI Screen ing [facility] Start: 05-28-2024 Tobacco Screening Tobacco Screening [facility] Start: 05-10-2024 Adult BMI Screening Adult BMI Screen ing [facility] Start: 05-09-2024 Depression Screening Depression Scre ening [facility] Start: 05-09-2024 Tobacco Screening Tobacco Screening [facility] Start: 04-26-2024 End: 04-26-2024 Patient encounter procedure 04/26/2024 3:15 PM EST Office Visit [facility] [address] [place] [address] Anita Mccoy MD [address] [place] [address] [facility] Start: 04-07-2024 End: 04-07-2024 Follow-up encounter 04/07/2024 1:00 PM EST Follow Up Anticoagulation [facility] [address] [place] [address] [facility] Start: 01-18-2024 COVID-19 Vaccine ( season) COVID-19 Vaccine ( season) [facility] Start: 01-18-2024 Influenza vaccination [facility] Start: 10-27-2023 End: 10-27-2023 Patient encounter procedure 10/27/2023 2:45 PM EDT Office Visit [facility] [address] [place] [id number] Anita Mccoy MD [address] [place] [address] [facility] Start: 09-16-2023 End: 09-16-2023 Follow-up encounter 09/16/2023 1:30 PM EDT Follow Up Anticoagulation [facility] [address] [place] [address] [facility] Start: 09-01-[address] [facility] Start: 09-01-2023 CT guided biopsy [facility] Start: 09-01-[address] guided biopsy [facility] Start: 08-20-2023 End: 08-20-2023 Follow-up encounter 08/20/2023 11:00 AM EDT Follow Up Anticoagulation [facility] [address] [place] [address] [facility] Start: 07-30-2023 End: 07-30-2023 Patient encounter procedure 07/30/2023 12:30 PM EDT Office Visit [facility] [address] [phone] Cole Krishnan MD [address] [place] [phone] Tr Jimenez, 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 LIFT TECHNICIAN-CONFLICTS ANALYST [address] [place] [address] [facility] Start: 07-30-2023 End: 07-30-2023 Follow-up encounter 07/30/2023 11:30 AM EDT Follow Up Anticoagulation [facility] [address] [place] [address] [facility] Start: 07-18-2023 End: 07-18-2023 Follow-up encounter 07/18/2023 1:15 PM EST Follow Up Anticoagulation [facility] [address] [place] [address] [facility] Start: 07-10-2023 End: 07-10-2023 Follow-up encounter 07/10/2023 1:15 PM EST Follow Up Anticoagulation [facility] [address] [place] [address] [facility] Start: 07-02-2023 End: 07-02-2023 Patient encounter procedure 07/02/2023 1:00 PM EST Appointment [facility] - Pulmonary Function [address] [place] [address] Anita Mccoy MD [id number] [place] [address] [facility] Function Start: 06-20-2023 End: 06-20-2023 Follow-up encounter 06/20/2023 1:15 PM EST Follow Up Anticoagulation [facility] [address] [place] [address] [facility] Start: 06-17-2023 End: 06-17-2023 Patient encounter procedure 06/17/2023 1:00 PM EST Office Visit [facility] [address] [place] [address] Iona Delarosa MD [address] [place] [address] [facility] Start: 06-17-2023 End: 06-17-2023 Follow-up encounter 06/17/2023 12:30 PM EST Follow Up Anticoagulation [facility] [address] [place] [address] [facility] Start: 06-10-2023 End: 06-10-2023 Follow-up encounter 06/10/2023 2:30 PM EST Follow Up Anticoagulation [facility] [address] [place] [address] [facility] Start: 06-05-2023 End: 06-05-2023 Follow-up encounter 06/05/2023 11:45 AM EST Follow Up Anticoagulation [facility] [address] [place] [address] [facility] Start: 06-04-2023 End: 05-28-2024 Basic metabolic 2000 panel - Serum or Plasma Basic Metabolic Panel Lab Routine Benign hypertensive heart disease without congestive heart failure Expected: 06/04/2023 (Approximate), Expires: 05/28/2024 [facility] Comment on above: Expected: 06/04/2023 (Approximate), Expires: 05/28/2024 Start: 06-02-2023 End: 06-02-2023 Follow-up encounter 06/02/2023 1:15 PM EST Follow Up Anticoagulation [facility] [address] [place] [address] [facility] Start: 05-28-2023 End: 05-28-2024 Wireless Telemetry (In Office) [facility] Work Phone: Comment on above: Expected: 05/28/2023 , Expires: 05/28/2024 Start: 05-28-2023 End: 05-28-2023 Patient encounter procedure 05/28/2023 1:00 PM EST Office Visit [facility] [address] [place] [address] Tr Jimenez, 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 LIFT TECHNICIAN-CONFLICTS ANALYST [address] [place] [address] [facility] Start: 05-26-2023 End: 05-26-2023 Follow-up encounter 05/26/2023 1:45 PM EST Follow Up Anticoagulation [facility] [address] [place] [address] [facility] Start: 02-14-2017 Screening for malign ant neoplasm of colon Colonoscopy [facility] Start: 2005 Fall Risk Screening Fall Risk Screen ing [facility] Start: 1990 Administration of varicella zoster vaccine Zoster (Shingles) Vaccine (1 of 2) [facility] Start: 1959 DTaP,Tdap and Td Vaccines (1 - Tdap) DTaP,Tdap and Td Vaccines (1 - Tdap) [facility] Start: 1958 Adult BMI Follow Up Plan Adult BMI F ollow Up Plan [facility] Start: 1940 Medicare Annual Well ness Visit Medicare Annual Wellness Visit [facility] aPTT in Platelet poo r plasma by Coagulation assay [facility] CT guided biopsy [facility] End: 05-28-2024 Hepatic function 2000 panel - Serum or Plasma Hepatic function panel 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 1 Occurrences starting 05/28/2023 until 05/28/2024 [facility] Comment on above: 1 Occurrences starti ng 05/28/2023 until 05/28/2024 Patient Education [facility] Work Phone: Renal function 1999 panel - Serum or Plasma [facility] Renal function 1999 panel - Serum or Plasma [facility] Renal function 1999 panel - Serum or Plasma [facility] Renal function 1999 panel - Serum or Plasma [facility] Renal function 1999 panel - Serum or Plasma [facility] Renal function 1999 panel - Serum or Plasma [facility] Renal function 1999 panel - Serum or Plasma [facility] End: 05-28-2024 Thyroid profile includes TSH FT4 Thyroid profile includes TSH FT4 Lab Routine nursing home current use of amiodarone 1 Occurrences starting 05/28/2023 until 05/28/2024 [facility] Comment on above: 1 Occurrences starti ng 05/28/2023 until 05/28/2024 [facility] Immunizations Immunization Date Immunization Notes Care Provider Fa cility 02-19-2023 Covid-19, Mrna, Lnp- s, Pf,anthony-sucrose,30 Mcg/0.3ml Fall23 P[facility] 1 [facility] 02-19-2023 Influenza Vaccine, Quadrivalent, Adjuvanted Pmh 1 [facility] 02-19-2023 RSV, bivalent, prote in subunit RSVpreF, diluent reconstituted, 0.5 mL, PF P[facility] 1 [facility] 02-19-2023 influenza virus vaccine, unspecified formulation Pmh 1 [facility] 03-11-2022 influenza virus vaccine, unspecified formulation Pmh 1 [facility] 05-12-2021 influenza virus vaccine, unspecified formulation Pmh 1 [facility] 03-12-2021 Influenza, High-dose , Quadrivalent Pmh 1 [facility] 08-04-2020 COVID-19 Vaccine Zoya - Documentation Purposes Only Chester Lin Other [facility] 02-09-2020 Influenza, High-dose , Quadrivalent Pmh 1 [facility] 02-01-2020 influenza virus vaccine, unspecified formulation Pmh 1 [facility] 01-21-2018 influenza, high dose seasonal, preservative-free Pmh 1 [facility] 06-19-2017 pneumococcal conjuga te vaccine, 13 valent Pmh 1 [facility] 03-19-2017 influenza virus vaccine, unspecified formulation Pmh 1 [facility] 03-19-2016 seasonal influenza, intradermal, preservative free Pmh 1 [facility] 02-06-2016 influenza, seasonal, injectable, preservative free Pmh 1 [facility] 03-31-2015 pneumococcal conjuga te vaccine, 13 valent Pmh 1 [facility] 03-28-2015 influenza, seasonal, injectable Tondra Mapus Other [employer] Other 03-19-2015 pneumococcal polysaccharide vaccine, 23 valent Pmh 1 [facility] 02-14-2015 influenza, seasonal, injectable Pmh 1 [facility] 03-31-2014 influenza, seasonal, injectable Pmh 1 [facility] 03-04-2012 influenza virus vaccine, whole virus Pmh 1 [facility] 03-04-2011 influenza virus vaccine, whole virus Pmh 1 [facility] Payers Date Payer Category Payer Medicare (Managed Care) [facility] [employer] [id number] 2017 Self-pay [id number] 2017 Unknown [id number] 2015 Medicare ANTHEM MEDICARE ANTHEM MEDICARE ADVANTAGE [id number] 2015-Present [phone] [address] [place] [address] [id number] 2015 Medicare HMO [facility] [id number] 1959 Medicare [id number] 2.16840.1.134146.19 1940 Unknown [id number] 2.16840.1.542129.3.579. 2.593 1940 Unknown [id number] 2.16840.1.575458.3.579. 2.593 1940 Unknown [id number] 2.16.840.1.473712.3.579. 2.1259 1940 Unknown [id number] 2.16840.1.763878.3.579. 2.1259 1940 Unknown [id number] 2.16.840.1.886191.3.579. 2.1286 1940 Unknown [id number] 2.16.840.1.452734.3.579. 2.1286 1940 Unknown [id number] 2.16.840.1.659175.3.579. 2.1286 1940 Unknown [id number] 2.16.840.1.048555.3.579. 2.1286 1940 Unknown [id number] 2.16.840.1.857391.3.579. 2.1286 1940 Unknown [id number] 2.16.840.1.423205.3.579. 2.1285 1940 Unknown [id number] 2.16.840.1.449204.3.579. 2.128 1940 Unknown [id number] 2.16.840.1.913484.3.579. 2.128 1940 Unknown [id number] 2.16.840.1.588099.3.579. 2.128 1940 Unknown [id number] 2.16.840.1.047371.3.579. 2.1285 1940 Unknown [id number] 2.16.840.1.199484.3.579. 2.1285 1940 Unknown [id number] 2.16.840.1.024419.3.579. 2.1285 1940 Unknown [id number] 2.16.840.1.089628.3.579. 2.1285 1940 Unknown [id number] 2.16.840.1.104008.3.579. 2.1285 1940 Unknown [id number] 2.16.840.1.123496.3.579. 2.1285 1940 Unknown [id number] 2.16.840.1.113358.3.579. 2.1285 1940 Unknown [id number] 2.16.840.1.868945.3.579. 2.1285 1940 Unknown [id number] 2.16.840.1.452997.3.579. 2.1285 1940 Unknown [id number] 2.16.840.1.291695.3.579. 2.1285 1940 Unknown [id number] 2.16.840.1.665649.3.579. 2.1286 1940 Unknown [id number] 2.16.840.1.963180.3.579. 2.1286 1940 Unknown [id number] 2.16.840.1.082200.3.579. 2.1286 1940 Unknown [id number] 2.16.840.1.958370.3.579. 2.1286 1940 Unknown [id number] 2.16.840.1.045732.3.579. 2.1286 1940 Unknown [id number] 2.16.840.1.677363.3.579. 2.1286 1940 Unknown [id number] 2.16.840.1.663927.3.579. 2.1286 1940 Unknown [id number] 2.16.840.1.003335.3.579. 2.128 1940 Unknown [id number] 2.16.840.1.135222.3.579. 2.1286 Unknown Regular Auto/Liability [id number] Unknown [id number] 2.16.840.1.369012.3.579. 2.531 Unknown [id number] 2.16840.1.128544.3.579. 2.531 Social History Date Type Detail Facility Unknown if ever smoked [employer] Other Start: 05-09-2023 End: 12-11-2023 Sex Assigned At [employer] Other Start: 03-11-2022 End: 11-20-2022 Tobacco smoking status NHIS Never smoked tobacco [facility] Start: 03-11-2022 End: 11-20-2022 Tobacco use and exposure Smokeless tobacco non-user [facility] Start: 05-09-2023 End: 10-27-2023 Alcohol intake Current non-drinker of alcohol (finding) [facility] Start: 05-09-2023 End: 12-11-2023 Alcohol intake [facility] tem How often to you hav e a drink containing alcohol? Never [facility] How many standard drinks containing alcohol do you have on a typical day? Patient does not drink [facility] Start: 1940 Sex Assigned At Not on file P [facility] Start: 1940 Sex Assigned At Female F [facility] Start: 12-22-2014 Sex Female (finding) [facility] Start: 12-11-2023 End: 03-16-2024 Alcoholic beverage intake Ex-drinker (finding) [facility] Medical Equipment Procedure Code Equipment Code Equipment Origin al Text Equipment Identifier Dates Start: 03-12-2017 Goals Date Patient Goal Desired Activity /State Personal health goal Comment on above: Formatting of this n ote might be different from the original. Evaluation of progress towards goal: return home self care with hsb support Clinical Notes 06-04-2020 to 03-16-2024 Luci Gant, [facility] - 03/16/2024 1:30 PM EDTPatient Amira Freedman, [facility] - 03/03/2024 1:15 PM Jaime Schumacher, [facility] - 08/21/2023 1:45 PM Jaime Schumacher, [facility] - 08/21/2023 1:45 PM EDT Note Date & Type Note Facility 03-16-2024 History of Presen t illness Narrative Images from the original note were not included. Subjective Patient ID: Margie Martínez is a 83 y.o. female who presents for Nail care (Margie Martínez is a 83 y.o. female who presents for DM Foot Care PCP: Anika Henry LV 10/31/23, A1C: 5.4, BS:, 93 SS: 7.5-8).). HPI Chief complaint: Thickened, discolored and deformed toenails involving multiple digits. Chronic toenail deformity multiple years duration. The condition is problematic/symptomatic, particularly over the past several weeks or so, impacting ADLs and her ability to wear shoes comfortably. Patient also complains of catching and snagging on clothing etc. Patient has noted no bleeding or drainage. Self-care is difficult, ineffective and not practical; increasing risk exposure. Her spouse and/or family members unable to provide effective care. Reports favorable transient symptom relief with palliative care measures Risk factors: Type II diabetes. Medical comorbidities. Polypharmacy. Coumadin therapy. Chronic lower extremity edema and lipidemia. Flexibility and mobility restraints. Toenail deformity. Digital and/or shoe trauma and related complications Medications Current Outpatient Medications: albuterol HFA 90 mcg/act inhaler, Inhale 2 puffs every 4 (four) hours if needed for wheezing., Disp: , Rfl: alendronate (Fosamax) 70 MG tablet, Take 70 mg by mouth every 7 (seven) days. Take in the morning with a full glass of water, on an empty stomach, and do not take anything else by mouth or lie down for the next 30 min., Disp: , Rfl: b complex vitamins capsule, Take 1 capsule by mouth in the morning., Disp: , Rfl: budesonide-formoterol (Symbicort) 80-4.5 MCG/ACT inhaler, Inhale 2 puffs in the morning and 2 puffs before bedtime. Rinse mouth with water after use to reduce aftertaste and incidence of candidiasis. Do not swallow.., Disp: , Rfl: bumetanide (Bumex) 1 MG tablet, Take by mouth Daily., Disp: , Rfl: carvedilol (Coreg) 25 MG tablet, Take by mouth 2 (two) times a day with meals., Disp: , Rfl: cholecalciferol (Vitamin D-3) 25 MCG (1000 UT) capsule, Take 1,000 Units by mouth in the morning., Disp: , Rfl: gemfibrozil (Lopid) 600 MG tablet, Take 600 mg by mouth in the morning and 600 mg in the evening. Take before meals., Disp: , Rfl: hydrALAZINE (Apresoline) 50 MG tablet, Take by mouth., Disp: , Rfl: levothyroxine (Synthroid, Levoxyl) 100 MCG tablet, Take by mouth Daily before meals., Disp: , Rfl: loratadine (Claritin) 10 MG tablet, Take by mouth., Disp: , Rfl: losartan (Cozaar) 50 MG tablet, Take by mouth., Disp: , Rfl: metFORMIN, OSM, (Fortamet) 1000 MG 24 hr tablet, Take 1,000 mg by mouth in the evening. Take with meals. Do not crush, chew, or split., Disp: , Rfl: NIFEdipine CC (Adalat CC) 60 MG 24 hr tablet, Take 60 mg by mouth in the morning. Take before meals. Do not crush, chew, or split. ., Disp: , Rfl: omeprazole (PriLOSEC) [address] capsule, Take 20 mg by mouth in the morning. Take before meals. Do not crush or chew. ., Disp: , Rfl: rosuvastatin (Crestor) 5 MG tablet, Take 5 mg by mouth in the morning., Disp: , Rfl: semaglutide (Ozempic) 2 MG/1.5ML solution pen-injector, Inject under the skin., Disp: , Rfl: spironolactone (Aldactone) 25 MG tablet, Take by mouth Daily., Disp: , Rfl: Allergies Bactrim [sulfamethoxazole-trimethoprim], Penicillins, and Sulfa antibiotics Past Surgical History Past Surgical History: Procedure Laterality Date APPENDECTOMY CHOLECYSTECTOMY HIATAL HERNIA REPAIR HYSTERECTOMY TONSILLECTOMY TOTAL KNEE ARTHROPLASTY Bilateral WISDOM TOOTH EXTRACTION Family History Family History Problem Relation Name Age of Onset Diabetes Mother Hypertension Mother Heart disease Father Cancer Other Diabetes Other Objective General assessment: Ambulatory with walker assist, wearing slip on shoes. Nasal O2 cannula in place. Accompanied by her spouse, Ulises. Vascular: DP 2/4 bilateral. PT 1/4 bilateral. CFT brisk all digits. Symmetrical non-pitting edema bilateral ankles; with lipedema changes of the lower extremities; bilateral Janeth bandages in place. Neurologic: tactile and light touch sensation intact. Dermatologic: intact. Skin turgor is good. Bilateral great toes: DSO/pincer toenail deformity, without lunula involvement; toenail dystrophy, thickening, elongation, discoloration, crumbly texture, the distal margins are incurvated/cryptotic, keratotic, tender, non-inflamed, without drainage. Digits 2, 3, 5 bilateral: Toenail dystrophy, thickening, elongation, discoloration, mild clubbing, crumbly texture, periungual hyperkeratosis and clinical mycosis, without drainage. Relatively sparing 4th digits bilateral. Web space areas are clean, dry, non-inflamed. No clinical evidence of ulceration. Orthopedic: maintains functional ankle and subtalar joint range of motion. HAV/HL left. No forefoot or digital discrete keratotic lesions are noted. Maintains functional 1st MTP joint range of motion on the right. 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 Type II diabetes. Lower extremity lipidemia Plan: patient remains well satisfied with a conservative and palliative care approach; again indicated. Expresses no interest in oral or topical therapy. Diabetic education and assessment. Hygiene and skin care measures discussed as able to do so. Procedure: Toenail debridement: Aseptic technique: Hand and power instrumentation: Onychodebridement in length and thickness, with curettage of any cryptotic margins, all periungual debris; providing effective symptom and pressure relief; reducing shoe and digital trauma. This note was created with the assistance of a speech recognition program. While intending to generate a timely document that accurately reflects the content of the visit, no guarantee can be provided that every grammatical or spelling mistake has been or will be identified or corrected. Thank you for your understanding. Luci Gant DPM documented in this encounter [facility] 03-16-2024 Instructions Luci Gant DPM - 03/16/2024 1:30 PM EDT As noted documented in this encounter [facility] 03-03-2024 History of Presen t illness Narrative 15 minute qknn-ew-nmpv follow-up anticoagulation appointment. INR performed in office per protocol. INR 2.7 (goal range: 2.0-3.0). Patient reports: Taking warfarin dosing as documented. Missed or extra doses of warfarin: No Changes to medications: No Changes to lifestyle (diet / alcohol / smoking / activity): No Recent emergency department visit / hospitalization / health changes / new contraindication to current anticoagulant: Yes Pt had the flu and some URI issues since our last appt, which lead to decreased appetite at the time, but this has all been resolved for 2 weeks now Signs/symptoms of bruising/bleeding or clotting or any intolerable adverse events: No Upcoming procedures: No Anticoagulant prescription needed: No Seen referring provider in the last year Duration of therapy reviewed Assessment: INR remains therapeutic on current warfarin dose - it appears since pt's flu/URI has been resolved for 2 weeks now, that INR is currently in a stable state Plan: Patient instructed to continue warfarin 1.25 mg MWF and 2/5 mg AOD. Check INR in 5 week(s). Patient verbalizes understanding of anticoagulant dosing instructions and information discussed. Dosing regimen, counseling, and follow-up appointment were provided to the patient. Patient reminded to call with questions or any medication changes. Patient instructed to seek medical attention if any major bleeding/bleeding that persists or worsens. Doron Freedman RPH 03/03/24 1324 documented in this encounter [employer] 08-21-2023 History of Presen t illness Narrative 15 minute vqvu-sv-bkhg follow-up anticoagulation appointment. INR performed in office [...] Upcoming procedures: YES Kidney biopsy on 09/01/23; [facility] Dr. Sarmiento Patient thinks she needs to [...] that persists or worsens. Alie Schumacher RP 08/21/[address] Sarmiento office ([phone]; [facility]) to inquire about procedural needs. LM requesting return call to clarify holding needs for biopsy on 09/01/23. Pending holding needs, clearance to hold may be needed by [facility]. Patient dx: Afib with CHADsVASc=4. Bridging not recommended. Last saw MANAGER LIFE Tony on 07/30/23. Alie Schumacher, PharmD, BCPS August 21, 2023 1:49 PM Alie Schumacher [facility] 08/21/23 1354 documented in this encounter [facility] 07-30-2023 History of Presen t illness Narrative Margie Martínez Date of visit: 07/30/2023 Date of : 1940 Age: 83 y.o. Patient Active Problem List Diagnosis COPD with acute exacerbation ([facility]) Bigeminy Benign hypertensive heart disease without congestive heart failure Obstructive sleep apnea syndrome Shortness of breath Abnormal result of cardiovascular function study Class 3 severe obesity in adult ([facility]) Ventricular premature beats 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 ([facility]) PAF (paroxysmal 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) ([facility] [place] Sinus pause Allergies Allergen Reactions Janeth Inhibitors [...] seen by EP service upon transfer to [facility] from [place] in April. There was reports of post-conversion pause approximately 6 seconds while at [place] though records were not obtainable for review. [...] kidney disease COPD (chronic obstructive pulmonary disease) ([facility] [place]) DM type 2 (diabetes mellitus, type 2) ([facility] [place]) HTN (hypertension) Hyperlipidemia 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 ([facility] [place]) 09/03/2021 Hypothyroid KELECHI (obstructive sleep apnea) No [...] Reorder IMPRESSIONS/PLAN 1. PAF (paroxysmal 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) ([facility]) - amiodarone (PACERONE) 200 mg tablet; [...] RASHAD MERCHANT Referring Physician: RASHAD Cabrera [address] [facility] [place] [address] RASHAD Duff 07/30/23 1329 documented in this encounter [facility] 07-30-2023 History of Presen t illness Narrative 15 minute tjjj-fv-atjw follow-up anticoagulation appointment. INR performed in office [...] RPH 07/30/23 1153 documented in this encounter [facility] 07-29-2023 Miscellaneous Notes Called patient to remind them to bring their most current copy of their medication list with them to their appt. Patient verbalizes understanding. documented in this encounter [facility] 07-29-2023 Telephone encounter Note Called patient to remind them to bring their most current copy of their medication list with them to their appt. Patient verbalizes understanding. [facility] 07-21-2023 History of Presen t illness Narrative Albuterol refill sent to [facility] per pt request. documented in this encounter [facility] 07-18-2023 History of Presen t illness Narrative 15 minute winl-ua-ippo follow-up anticoagulation appointment. INR performed in office [...] RPH 07/18/23 1318 documented in this encounter [facility] 07-10-2023 History of Presen t illness Narrative 15 minute klaf-sj-tahv follow-up anticoagulation appointment. INR performed in office per protocol. INR 1.4 (goal range: 2.0-3.0). Patient reports: Taking warfarin dosing as documented. Missed or extra doses of warfarin: No Changes to medications: No Changes to lifestyle (diet / alcohol / smoking / activity): YES Taking probiotic daily Patient notes sahienkraut on Friday and ryan debra yesterday Recent emergency department visit / hospitalization [...] RPH 07/10/23 1328 documented in this encounter [facility] 06-26-2023 History of Presen t illness Narrative 15 minute mdmw-br-jzsi follow-up anticoagulation appointment. INR performed in office [...] RPH 06/26/23 1315 [facility] History of Presen t illness Narrative Margie Kent Mauricio Date of visit: 06/17/2023 Date of : 1940 Age: 82 y.o. Patient Active Problem List Diagnosis COPD with acute exacerbation ([facility] [place]) Bigeminy Benign hypertensive heart disease without congestive heart failure Obstructive sleep apnea syndrome Shortness of breath Abnormal result of cardiovascular function study Class 3 severe obesity in adult ([facility] [place]) Ventricular premature beats 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 ([facility] [place]) PAF (paroxysmal 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) ([facility] [place]) Sinus pause Allergies Allergen Reactions Janeth Inhibitors [...] 1 puff before bedtime. 60 each 6 PollfishYLE KUSUM 2 SENSOR kit USE DIRECTED CHANGE [...] monitor which she is going to wear [employer]. She is on long-term oxygen she is [...] kidney disease COPD (chronic obstructive pulmonary disease) ([facility] [place]) DM type 2 (diabetes mellitus, type 2) ([facility] [place]) HTN (hypertension) Hyperlipidemia 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 ([facility] [place] [place]) 09/03/2021 Hypothyroid KELECHI (obstructive sleep apnea) No [...] PCP: RASHAD MERCHANT Referring Physician: RASHAD Cabrera [facility] [place] [address] documented in this encounter [facility] 06-17-2023 History of Presen t illness Narrative 15 minute hxlr-iu-icys follow-up anticoagulation appointment. INR performed in office [...] RPH 06/17/23 1232 documented in this encounter [facility] 06-16-2023 Miscellaneous Notes Called patient to remind them to bring their most current copy of their medication list with them to their appt. Patient verbalizes understanding. documented in this encounter [facility] 06-16-2023 Telephone encounter Note Called patient to remind them to bring their most current copy of their medication list with them to their appt. Patient verbalizes understanding. [facility] 06-10-2023 History of Presen t illness Narrative 15 minute spxz-ia-zpoi follow-up anticoagulation appointment. INR performed in office [...] RPH 06/10/23 1428 documented in this encounter [employer] 06-05-2023 History of Presen t illness Narrative 15 minute oedi-rc-ebny follow-up anticoagulation appointment. INR performed in office [...] response. Plan: Patient instructed to hold warfarin /18, then start new plan of 1.25 mg [...] RPH 06/05/23 1132 documented in this encounter [employer] 06-03-2023 Evaluation note Encounter Date Diagnosis Assessment Notes May, Edema (ICD-10 - R60.9) [employer] Other 01-15-2024 History of Present illness Narrative* Alie Schumacher RPH - 06/02/2023 1:15 PM EST 15 minute eqxt-ht-wdqx follow-up anticoagulation appointment. INR performed in office [...] Schumacher RPH 06/02/23 1424 [facility] History of Present illness Narrative* Tr Jimenez, 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 LIFT TECHNICIAN-[facility] - 05/28/2023 1:00 PM EST Margie Liutom Date of visit: 05/28/2023 Date of : 1940 Age: 82 y.o. Patient Active Problem List Diagnosis COPD with acute exacerbation ([facility] [place]) Bigeminy Benign hypertensive heart disease without congestive heart failure Obstructive sleep apnea syndrome Shortness of breath Abnormal result of cardiovascular function study Class 3 severe obesity in adult ([facility] [place] [place]) Ventricular premature beats 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 ([facility] [place] [place]) PAF (paroxysmal 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) ([facility] [place]) Sinus pause Allergies Allergen Reactions Janeth Inhibitors [...] states that she was hospitalized initially at [place] for symptomatic 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. Upon resolution, she was discharged home though recurrent episodes warranted repeat visit. She was then seen at [facility] where she had episodes of conversion pauses reported. She was transferred then to [facility] evaluated by EP team. Patient was [...] kidney disease COPD (chronic obstructive pulmonary disease) ([facility] [place] [place]) DM type 2 (diabetes mellitus, type 2) ([facility] [place]) HTN (hypertension) Hyperlipidemia 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 ([facility]) 09/03/2021 Hypothyroid KELECHI (obstructive sleep apnea) No [...] tablet IMPRESSIONS/PLAN 1. PAF (paroxysmal 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) ([facility]) - POCT EKG - Wireless Telemetry (In Office); Future 2. Ventricular premature beats - POCT EKG 3. Sinus pause - Wireless Telemetry (In Office); Future 4. Benign hypertensive heart disease without congestive heart failure - Basic Metabolic Panel; Future 5. 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 Patient verbalizes understanding. [facility] Telephone encounter Note* Telephone Encounter - Elza Schilling CMA - 05/27/2023 9:42 AM EST Called patient to remind them to bring their most current copy of their medication list with them to their appt. Patient verbalizes understanding. [facility]01[facility] History of Present illness Narrative* Alie Schumacher, [facility] - 05/26/2023 1:45 PM EST 15 minute hjue-sz-rrib follow-up anticoagulation appointment. INR performed in office [...] prescription needed: YES- 2.5 mg tab to [facility] Seen referring provider in the last year Duration of therapy reviewed Assessment: INR remains slightly elevated, but improved from previous week. Patient has taken 17.5 mg in the past 7 days. We will further reduce weekly dose by 7% (16.25 mg weekly). 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 Alie Schumacher [facility] 05/26/23 1409 [facility] History of Present illness Narrative* Aylin Tirso, [facility] - 05/21/2023 11:30 AM EST 30 minute zdla-ob-etzt follow-up anticoagulation appointment. INR performed in office [...] Chahal RPH 05/21/23 1143 [facility] Evaluation note* Encounter Date Diagnosis Assessment Notes Treatment Notes Treatment Clinical Notes Apr, Nephritis (ICD-10 - N05.9) [employer] Other [id number] Evaluation note* Encounter Date Diagnosis Assessment Notes [...] check iron, folate and VB12 storage studies [employer] Other 12-04-2023 Evaluation note* Encounter Date Diagnosis Assessment Notes Treatment Notes Treatment Clinical Notes Apr, Edema (ICD-10 - R60.9) [employer] Other 10-04-2023 Evaluation note* Encounter Date Diagnosis Assessment Notes Treatment Notes Treatment Clinical Notes Feb, Dietary counseling and surveillance (ICD-10 - Z71.3) Maintaining a healthful weight material was printed see above Feb, Type 2 diabetes mellitus (ICD-10 - E11.9) Type 2 diabetes material was printed 1. Controlled, Type 2 diabetes with A1c 5.8%. 2. Blood glucose levels improved. According to Actions 2 cgm download 02/06/2023- Avg glucose 116. 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 Keep f/u with nephrology Feb, BMI 40.0-44.9, adult (ICD-10 - Z68.41) [employer] Other 09-27-2023 Evaluation note* Encounter Date Diagnosis Assessment Notes Treatment Notes Treatment Clinical Notes Jan, Type 2 diabetes mellitus with diabetic chronic kidney disease (ICD-10 - E11.22) Pt here for appointment today with spouse, for [employer] 2 training. [employer] training discussed, instructed on use and application. Patient brought in her own [employer] reader which displays connected to a computer on the screen. Pt contacted [employer] for reader replacement. Pt also brought in new reader. New reader set up with pt. Instructed pt to send old reader back to [employer]. Pt states she will send old reader [...] spent on education by Rangel CANTU, RN [employer] Other 06-06-2023 Evaluation note* Encounter Date Diagnosis [...] On Bumex for volume management Avoid NSAIDs [employer] Other 04-03-2023 Evaluation note* Encounter Date Diagnosis [...] or diabetes medication issues. 6. Prescriptions: RUSSELL [employer] 7. 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 Keep f/u with nephrology Aug, BMI 39.0-39.9,adult (ICD-10 - Z68.39) 11 pound weight loss from last visit, continue with weight loss efforts [employer] Other 10-12-2022 Evaluation note* Encounter Date Diagnosis [...] hypertension material was printed on arb Feb, nursing home current use of insulin (ICD-10 - Z79.4) [...] E11.649) Hypoglycemia material was printed see above [employer] Other 09-12-2022 Evaluation note* Encounter Date Diagnosis Assessment Notes Treatment Notes Treatment Clinical Notes Jan, Edema (ICD-10 - R60.9) [employer] Other 08-24-2022 Evaluation note* Encounter Date Diagnosis Assessment Notes Treatment Notes Treatment Clinical Notes Dec, Type 2 diabetes mellitus with diabetic chronic kidney disease (ICD-10 - E11.22) Dec, Type 2 diabetes mellitus (ICD-10 - E11.9) [employer] Other 06-17-2022 Evaluation note* Encounter Date Diagnosis Assessment Notes Treatment Notes Treatment Clinical Notes Oct, Vitamin B 12 deficiency (ICD-10 - E53.8) [employer] Other 06-07-2022 Evaluation note* Encounter Date Diagnosis [...] arthritis and sleep apnea has been addressed. [employer] Other 06-06-2022 Evaluation note* Encounter Date Diagnosis Assessment Notes Treatment Notes Treatment Clinical Notes Oct, Type 2 diabetes mellitus with diabetic chronic kidney disease (ICD-10 - E11.22) [employer] Other 04-25-2022 Evaluation note* Encounter Date Diagnosis Assessment Notes Treatment Notes Treatment Clinical Notes Aug, Type 2 diabetes mellitus with diabetic chronic kidney disease (ICD-10 - E11.22) [employer] Other 01-05-2022 Evaluation note* Encounter Date Diagnosis [...] I10) About hypertension material was printed May, nursing home current use of insulin (ICD-10 - Z79.4) [...] E11.649) Hypoglycemia material was printed see above [employer] Other 01-17-2021 History general Narrative - Reported* [...] History SEE ABOVE Hospitalization History COPD 07/08 [facility] [employer] Other evaluation noteNo [facility] [employer] Other evaluation note* Diagnosis PAF (paroxysmal 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) ([facility] Primary Atrial fibrillation documented in this encounter [facility] System[facility] note* Diagnosis PAF (paroxysmal 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) ([facility] Primary Atrial fibrillation documented in this encounter [facility] SystemEvaluation note* Diagnosis PAF (paroxysmal 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) ([facility] Primary Atrial fibrillation Ventricular premature beats Other premature beats Sinus pause Benign hypertensive heart disease without congestive heart failure Benign hypertensive heart disease without heart failure nursing home current use of amiodarone documented in this encounter [facility] System[facility] note* Diagnosis PAF (paroxysmal 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) ([facility] Primary Atrial fibrillation [facility]* Diagnosis PAF (paroxysmal 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) ([facility] Primary Atrial fibrillation documented in this encounter [facility]* Diagnosis PAF (paroxysmal 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) ([facility] Primary Atrial fibrillation Benign hypertensive heart disease without congestive heart failure Benign hypertensive heart disease without heart failure 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 ([facility]) Shortness of breath COPD with acute exacerbation ([facility]) [facility]* Diagnosis PAF (paroxysmal 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) ([facility] Primary Atrial fibrillation documented in this encounter [facility] SystemEvaluation noteNo assessment information available [facility] Work Phone: evaluation note* Diagnosis PAF (paroxysmal 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) ([facility] Primary Atrial fibrillation [facility]* Diagnosis Shortness of breath Chronic obstructive pulmonary disease, unspecified COPD type ([facility]) [facility]* Diagnosis PAF (paroxysmal 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) ([facility] Primary Atrial fibrillation Hyperlipidemia, unspecified hyperlipidemia type Benign hypertensive heart disease without congestive heart failure Benign hypertensive heart disease without heart failure documented in this encounter [facility] SystemEvaluation note* Diagnosis Onset Date Resolution Status Anemia acute BMI 50.0-59.9, adult acute Edema acute Hyperlipidemia acute [id number] acute Stage 3b chronic kidney disease (CKD) acute Type 2 diabetes mellitus wit h diabetic chronic kidney disease acute [facility] Work Phone: Evaluation note* Diagnosis Onset Date Resolution Status Anemia acute BMI 50.0-59.9, adult acute Edema acute Hyperlipidemia acute [id number] acute Stage 3b chronic kidney disease (CKD) acute Type 2 diabetes mellitus wit h diabetic chronic kidney disease acute Diabetes acute Dietary counseling and surveillance acute HTN (hypertension) acute Hyperlipidemia acute Vitamin B 12 deficiency [facility] Work Phone: Evaluation note* Diagnosis Onset Date Resolution Status Anemia acute BMI 50.0-59.9, adult acute Edema acute Hyperlipidemia acute [id number] acute Stage 3b chronic kidney disease (CKD) acute Type 2 diabetes mellitus wit h diabetic chronic kidney disease acute BMI 40.0-44.9, adult acute Diabetes acute Dietary counseling and surveillance acute HTN (hypertension) acute Hyperlipidemia acute Vitamin B 12 deficiency [facility] Work Phone: Evaluation note* Diagnosis Onset Date Resolution Status Anemia acute BMI 50.0-59.9, adult acute Edema acute Hyperlipidemia acute [id number] acute Stage 3b chronic kidney disease (CKD) acute Type 2 diabetes mellitus wit h diabetic chronic kidney disease acute BMI 40.0-44.9, adult acute Diabetes acute Dietary counseling and surveillance acute HTN (hypertension) acute Hyperlipidemia acute Vitamin B 12 deficiency acut e Anemia acute Edema acute Fibrillary glomerulonephritis acute Hyperparathyroidism acute [id number] acute Stage 3b chronic kidney disease (CKD) acute Type 2 diabetes mellitus wit h diabetic chronic kidney disease acute [facility] Work Phone: evaluation note* Diagnosis Onset Date Resolution Status Anemia acute BMI 50.0-59.9, adult acute Edema acute Hyperlipidemia acute [id number] acute Stage 3b chronic kidney disease (CKD) acute Type 2 diabetes mellitus wit h diabetic chronic kidney disease acute BMI 40.0-44.9, adult acute Diabetes acute Dietary counseling and surveillance acute HTN (hypertension) acute Hyperlipidemia acute Vitamin B 12 deficiency acut e Anemia acute Edema acute Fibrillary glomerulonephritis acute Hyperparathyroidism acute [id number] acute Stage 3b chronic kidney disease (CKD) acute Type 2 diabetes mellitus wit h diabetic chronic kidney disease acute Anemia acute Edema acute Fibrillary glomerulonephritis acute Hyperparathyroidism acute [id number] acute Stage 3b chronic kidney disease (CKD) acute Type 2 diabetes mellitus wit h diabetic chronic kidney disease acute [facility] Work Phone: Evaluation note* Diagnosis Onset Date Resolution Status Anemia acute BMI 50.0-59.9, adult acute Edema acute Hyperlipidemia acute [id number] acute Stage 3b chronic kidney disease (CKD) acute Type 2 diabetes mellitus wit h diabetic chronic kidney disease acute BMI 40.0-44.9, adult acute Diabetes acute Dietary counseling and surveillance acute HTN (hypertension) acute Hyperlipidemia acute Vitamin B 12 deficiency acut e Anemia acute Edema acute Fibrillary glomerulonephritis acute Hyperparathyroidism acute [id number] acute Stage 3b chronic kidney disease (CKD) acute Type 2 diabetes mellitus wit h diabetic chronic kidney disease acute Anemia acute Edema acute Fibrillary glomerulonephritis acute Hyperparathyroidism acute [id number] acute Stage 3b chronic kidney disease (CKD) acute Type 2 diabetes mellitus wit h diabetic chronic kidney disease acute Anemia acute Edema acute Fibrillary glomerulonephritis acute Hyperparathyroidism acute [id number] acute Stage 3b chronic kidney disease (CKD) acute Type 2 diabetes mellitus wit h diabetic chronic kidney disease acute [facility] Work Phone: Evaluation note* Diagnosis Onset Date Resolution Status Anemia acute BMI 50.0-59.9, adult acute Edema acute Hyperlipidemia acute [id number] acute Stage 3b chronic kidney disease (CKD) acute Type 2 diabetes mellitus wit h diabetic chronic kidney disease acute BMI 40.0-44.9, adult acute Diabetes acute Dietary counseling and surveillance acute HTN (hypertension) acute Hyperlipidemia acute Vitamin B 12 deficiency acut e Anemia acute Edema acute Fibrillary glomerulonephritis acute Hyperparathyroidism acute [id number] acute Stage 3b chronic kidney disease (CKD) acute Type 2 diabetes mellitus wit h diabetic chronic kidney disease acute Anemia acute Edema acute Fibrillary glomerulonephritis acute Hyperparathyroidism acute [id number] acute Stage 3b chronic kidney disease (CKD) acute Type 2 diabetes mellitus wit h diabetic chronic kidney disease acute Anemia acute Edema acute Fibrillary glomerulonephritis acute Hyperparathyroidism acute [id number] acute Stage 3b chronic kidney disease (CKD) acute Type 2 diabetes mellitus wit h diabetic chronic kidney disease acute Anemia acute Edema acute Fibrillary glomerulonephritis acute Hyperkalemia acute Hyperparathyroidism acute [id number] acute Stage 3b chronic kidney disease (CKD) acute Type 2 diabetes mellitus wit h diabetic chronic kidney disease acute [facility] Work Phone: Evaluation note* Diagnosis Onset Date Resolution Status BMI 40.0-44.9, adult acute Diabetes acute Dietary counseling and surveillance acute HTN (hypertension) acute Hyperlipidemia acute Vitamin B 12 deficiency acut e Anemia acute Edema acute Fibrillary glomerulonephritis acute Hyperparathyroidism acute [id number] acute Stage 3b chronic kidney disease (CKD) acute Type 2 diabetes mellitus wit h diabetic chronic kidney disease acute Anemia acute Edema acute Fibrillary glomerulonephritis acute Hyperparathyroidism acute [id number] acute Stage 3b chronic kidney disease (CKD) acute Type 2 diabetes mellitus wit h diabetic chronic kidney disease acute Anemia acute Edema acute Fibrillary glomerulonephritis acute Hyperparathyroidism acute [id number] acute Stage 3b chronic kidney disease (CKD) acute Type 2 diabetes mellitus wit h diabetic chronic kidney disease acute Anemia acute Edema acute Fibrillary glomerulonephritis acute Hyperkalemia acute Hyperparathyroidism acute [id number] acute Stage 3b chronic kidney disease (CKD) acute Type 2 diabetes mellitus wit h diabetic chronic kidney disease acute Anemia acute Edema acute Fibrillary glomerulonephritis acute Hyperkalemia acute Hyperparathyroidism acute [id number] acute Stage 3b chronic kidney disease (CKD) acute Type 2 diabetes mellitus wit h diabetic chronic kidney disease acute [facility] Work Phone: Evaluation note* Diagnosis Onset Date Resolution Status Anemia acute Edema acute Fibrillary glomerulonephritis acute Hyperparathyroidism acute [id number] acute Stage 3b chronic kidney disease (CKD) acute Type 2 diabetes mellitus wit h diabetic chronic kidney disease acute Anemia acute Edema acute Fibrillary glomerulonephritis acute Hyperparathyroidism acute [id number] acute Stage 3b chronic kidney disease (CKD) acute Type 2 diabetes mellitus wit h diabetic chronic kidney disease acute Anemia acute Edema acute Fibrillary glomerulonephritis acute Hyperparathyroidism acute [id number] acute Stage 3b chronic kidney disease (CKD) acute Type 2 diabetes mellitus wit h diabetic chronic kidney disease acute Anemia acute Edema acute Fibrillary glomerulonephritis acute Hyperkalemia acute Hyperparathyroidism acute [id number] acute Stage 3b chronic kidney disease (CKD) acute Type 2 diabetes mellitus wit h diabetic chronic kidney disease acute Anemia acute Edema acute Fibrillary glomerulonephritis acute Hyperkalemia acute Hyperparathyroidism acute [id number] acute Stage 3b chronic kidney disease (CKD) acute Type 2 diabetes mellitus wit h diabetic chronic kidney disease acute BMI 40.0-44.9, adult acute Diabetes acute Dietary counseling and surveillance acute HTN (hypertension) acute Hyperlipidemia acute Vitamin B 12 deficiency acut e [facility] Work Phone: Evaluation note* Diagnosis Onset Date Resolution Status Anemia acute Edema acute Fibrillary glomerulonephritis acute Hyperparathyroidism acute [id number] acute Stage 3b chronic kidney disease (CKD) acute Type 2 diabetes mellitus wit h diabetic chronic kidney disease acute Anemia acute Edema acute Fibrillary glomerulonephritis acute Hyperparathyroidism acute [id number] acute Stage 3b chronic kidney disease (CKD) acute Type 2 diabetes mellitus wit h diabetic chronic kidney disease acute Anemia acute Edema acute Fibrillary glomerulonephritis acute Hyperkalemia acute Hyperparathyroidism acute [id number]-[id number] acute Stage 3b chronic kidney disease (CKD) acute Type 2 diabetes mellitus wit h diabetic chronic kidney disease acute Anemia acute Edema acute Fibrillary glomerulonephritis acute Hyperkalemia acute Hyperparathyroidism acute [id number] acute Stage 3b chronic kidney disease (CKD) acute Type 2 diabetes mellitus wit h diabetic chronic kidney disease acute BMI 40.0-44.9, adult acute Diabetes acute Dietary counseling and surveillance acute HTN (hypertension) acute Hyperlipidemia acute Vitamin B 12 deficiency acut e Anemia acute Stage 3a chronic kidney disease (CKD) acute [facility] Work Phone: Evaluation note* Diagnosis Onset Date Resolution Status Anemia acute Edema acute Fibrillary glomerulonephritis acute Hyperparathyroidism acute [id number] acute Stage 3b chronic kidney disease (CKD) acute Type 2 diabetes mellitus wit h diabetic chronic kidney disease acute Anemia acute Edema acute Fibrillary glomerulonephritis acute Hyperkalemia acute Hyperparathyroidism acute [id number] acute Stage 3b chronic kidney disease (CKD) acute Type 2 diabetes mellitus wit h diabetic chronic kidney disease acute Anemia acute Edema acute Fibrillary glomerulonephritis acute Hyperkalemia acute Hyperparathyroidism acute [id number] acute Stage 3b chronic kidney disease (CKD) acute Type 2 diabetes mellitus wit h diabetic chronic kidney disease acute BMI 40.0-44.9, adult acute Diabetes acute Dietary counseling and surveillance acute HTN (hypertension) acute Hyperlipidemia acute Vitamin B 12 deficiency acut e Anemia acute Stage 3a chronic kidney disease (CKD) acute [facility] Work Phone: Evaluation note* Diagnosis Onset Date Resolution Status Anemia acute Edema acute Fibrillary glomerulonephritis acute Hyperparathyroidism acute [id number] acute Stage 3b chronic kidney disease (CKD) acute Type 2 diabetes mellitus wit h diabetic chronic kidney disease acute Anemia acute Edema acute Fibrillary glomerulonephritis acute Hyperkalemia acute Hyperparathyroidism acute [id number] acute Stage 3b chronic kidney disease (CKD) acute Type 2 diabetes mellitus wit h diabetic chronic kidney disease acute Anemia acute Edema acute Fibrillary glomerulonephritis acute Hyperkalemia acute Hyperparathyroidism acute [id number] acute Stage 3b chronic kidney disease (CKD) [...] Stage 3a chronic kidney disease (CKD) acute [facility] Work Phone: Evaluation note* Diagnosis Onset Date Resolution Status Anemia acute Edema acute Fibrillary glomerulonephritis acute Hyperkalemia acute Hyperparathyroidism acute [id number] acute Stage 3b chronic kidney disease (CKD) acute Type 2 diabetes mellitus wit h diabetic chronic kidney disease acute Anemia acute Edema acute Fibrillary glomerulonephritis acute Hyperkalemia acute Hyperparathyroidism acute [id number]-[id number] acute Stage 3b chronic kidney disease (CKD) [...] Fibrillary glomerulonephritis acute Hyperkalemia acute Hyperparathyroidism acute [id number] acute Stage 3b chronic kidney disease (CKD) acute Type 2 diabetes mellitus wit h diabetic chronic kidney disease acute [facility] Work Phone: Evaluation note* Diagnosis Onset Date Resolution Status Anemia acute Edema acute Fibrillary glomerulonephritis acute Hyperkalemia acute Hyperparathyroidism acute [id number] acute Stage 3b chronic kidney disease (CKD) [...] Fibrillary glomerulonephritis acute Hyperkalemia acute Hyperparathyroidism acute [id number] acute Stage 3b chronic kidney disease (CKD) acute Type 2 diabetes mellitus wit h diabetic chronic kidney disease acute [facility] Work Phone: Evaluation note* Diagnosis [...] Fibrillary glomerulonephritis acute Hyperkalemia acute Hyperparathyroidism acute [id number]-[id number] acute Stage 3b chronic kidney disease (CKD) acute Type 2 diabetes mellitus wit h diabetic chronic kidney disease acute Anemia acute Anemia of renal disease acut e 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 acute [id number] acute [facility] Work Phone: Evaluation note* Diagnosis Dermatophytosis of nail- Primary Dystrophic nail Other specified disease of nail Pain around toenail, right foot Pain around toenail, left foot [facility] this [facility] instructions[facility] Orders* AMB POC INR Time Frame: 2 Months, Location: Determined By Patient [facility] Work Phone: InstructionsNot on filedocumented [...] Advance Directives No September 16, 2017 12:13pm Date Activated Date Inactivated Comments 05/09/2023 2:38 AM 05/10/2023 5:20 PM Date Activated Date Inactivated Comments 07/11/2019 12:31 AM 2019 4:55 PM Date Activated Date Inactivated Comments 06/28/2019 7:15 AM 06/28/2019 8:15 PM Reason for Referral Specialty Diagnoses / Procedures Referred By Nydia t Referred To Contact Diagnoses PAF (paroxysmal 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) ([facility]) Sinus pause Procedures Wireless Telemetry (In Office) Tr Jimenez, 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 LIFT TECHNICIAN-CONFLICTS ANALYST [address] [place] [address] Referral ID Status Reason Start Date Expiration Date V isits Requested Visits Authorized [id number] Pending Review 05/28/2023 05/27/2024 1 1 Chief Complaint and Reason for Visit Chief Complaint Renal 6 Month Follow Up Chief Complaint RENAL 3 month Follow up Reason for Visit Anemia BMI 50.0-59.9, adult Edema Hyperlipidemia [id number] 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 Chief Complaint RENAL 3 month Follow up kusum reader Reason for Visit Anemia BMI 50.0-59.9, adult Edema Hyperlipidemia [id number] 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 Diabetes Dietary counseling and surveillance HTN (hypertension) Hyperlipidemia Vitamin B 12 deficiency Chief Complaint RENAL 3 month Follow up kusum reader N18.32 R60.9 D64.9 Z68.43 E78.5 E11.22 I12.9 Reason for Visit Anemia BMI 50.0-59.9, adult Edema Hyperlipidemia [id number] 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 BMI 40.0-44.9, adult Diabetes Dietary counseling and surveillance HTN (hypertension) Hyperlipidemia Vitamin B 12 deficiency Chief Complaint RENAL 3 month Follow up kusum reader N18.32 R60.9 D64.9 Z68.43 E78.5 E11.22 I12.9 RENAL F/U Reason for Visit Anemia BMI 50.0-59.9, adult Edema Hyperlipidemia [id number] 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 BMI 40.0-44.9, adult Diabetes Dietary counseling and surveillance HTN (hypertension) Hyperlipidemia Vitamin B 12 deficiency Anemia Edema Fibrillary glomerulonephritis Hyperparathyroidism [id number] 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 Chief Complaint RENAL 3 month Follow up kusum reader N18.32 R60.9 D64.9 Z68.43 E78.5 E11.22 I12.9 RENAL F/U 3 week f/u Reason for Visit Anemia BMI 50.0-59.9, adult Edema Hyperlipidemia [id number] 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 BMI 40.0-44.9, adult Diabetes Dietary counseling and surveillance HTN (hypertension) Hyperlipidemia Vitamin B 12 deficiency Anemia Edema Fibrillary glomerulonephritis Hyperparathyroidism [id number] 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 Anemia Edema Fibrillary glomerulonephritis Hyperparathyroidism [id number] 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 Chief Complaint RENAL 3 month Follow up kusum reader N18.32 R60.9 D64.9 Z68.43 E78.5 E11.22 I12.9 RENAL F/U 3 week f/u RENAL 2 MONTH F/U Reason for Visit Anemia BMI 50.0-59.9, adult Edema Hyperlipidemia [id number] 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 BMI 40.0-44.9, adult Diabetes Dietary counseling and surveillance HTN (hypertension) Hyperlipidemia Vitamin B 12 deficiency Anemia Edema Fibrillary glomerulonephritis Hyperparathyroidism [id number] 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 Anemia Edema Fibrillary glomerulonephritis Hyperparathyroidism [id number] 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 Anemia Edema Fibrillary glomerulonephritis Hyperparathyroidism [id number] 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 Chief Complaint RENAL 3 month Follow up kusum reader N18.32 R60.9 D64.9 Z68.43 E78.5 E11.22 I12.9 RENAL F/U 3 week f/u RENAL 2 MONTH F/U RENAL 3 WK INJ RETACRIT Reason for Visit Anemia BMI 50.0-59.9, adult Edema Hyperlipidemia [id number] 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 BMI 40.0-44.9, adult Diabetes Dietary counseling and surveillance HTN (hypertension) Hyperlipidemia Vitamin B 12 deficiency Anemia Edema Fibrillary glomerulonephritis Hyperparathyroidism [id number] 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 Anemia Edema Fibrillary glomerulonephritis Hyperparathyroidism [id number]-[id number]-[id number] 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 Anemia Edema Fibrillary glomerulonephritis Hyperparathyroidism [id number] 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 Anemia Edema Fibrillary glomerulonephritis Hyperkalemia Hyperparathyroidism [id number] Stage 3b chronic kidney disease (CKD) Type [...] 12 deficiency Anemia Edema Fibrillary glomerulonephritis Hyperparathyroidism [id number]-[id number] 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 Anemia Edema Fibrillary glomerulonephritis Hyperparathyroidism [id number]-[id number] 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 Anemia Edema Fibrillary glomerulonephritis Hyperparathyroidism [id number] 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 Anemia Edema Fibrillary glomerulonephritis Hyperkalemia Hyperparathyroidism [id number]-[id number] 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 Anemia Edema Fibrillary glomerulonephritis Hyperkalemia Hyperparathyroidism [id number]-[id number] 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 Chief Complaint RENAL F/U 3 week f/u RENAL 2 MONTH F/U RENAL 3 WK INJ RETACRIT RENAL 2 WK INJ / RETACRIT METER Reason for Visit Anemia Edema Fibrillary glomerulonephritis Hyperparathyroidism [id number] 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 Anemia Edema Fibrillary glomerulonephritis Hyperparathyroidism [id number]-[id number] 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 Anemia Edema Fibrillary glomerulonephritis Hyperparathyroidism [id number]-[id number] 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 Anemia Edema Fibrillary glomerulonephritis Hyperkalemia Hyperparathyroidism [id number]-[id number]-15321482 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 Anemia Edema Fibrillary glomerulonephritis Hyperkalemia Hyperparathyroidism [id number]-[id number]-[id number] Stage 3b chronic kidney disease (CKD) Type [...] for Visit Anemia Edema Fibrillary glomerulonephritis Hyperparathyroidism [id number] 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 Anemia Edema Fibrillary glomerulonephritis Hyperparathyroidism [id number]-48870082 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 Anemia Edema Fibrillary glomerulonephritis Hyperkalemia Hyperparathyroidism [id number] 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 Anemia Edema Fibrillary glomerulonephritis Hyperkalemia Hyperparathyroidism [id number] Stage 3b chronic kidney disease (CKD) Type [...] for Visit Anemia Edema Fibrillary glomerulonephritis Hyperparathyroidism [id number]-[id number] 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 Anemia Edema Fibrillary glomerulonephritis Hyperkalemia Hyperparathyroidism [id number]-88639429 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 Anemia Edema Fibrillary glomerulonephritis Hyperkalemia Hyperparathyroidism [id number]-[id number] Stage 3b chronic kidney disease (CKD) Type [...] for Visit Anemia Edema Fibrillary glomerulonephritis Hyperparathyroidism [id number]-[id number] 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 Anemia Edema Fibrillary glomerulonephritis Hyperkalemia Hyperparathyroidism WSY-[id number]-56217405 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 Anemia Edema Fibrillary glomerulonephritis Hyperkalemia Hyperparathyroidism [id number]-[id number] Stage 3b chronic kidney disease (CKD) Type [...] Visit Anemia Edema Fibrillary glomerulonephritis Hyperkalemia Hyperparathyroidism [id number] 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 Anemia Edema Fibrillary glomerulonephritis Hyperkalemia Hyperparathyroidism [id number] Stage 3b chronic kidney disease (CKD) Type [...] (CKD) Anemia Edema Fibrillary glomerulonephritis Hyperkalemia Hyperparathyroidism [id number] Stage 3b chronic kidney disease (CKD) Type [...] Visit Anemia Edema Fibrillary glomerulonephritis Hyperkalemia Hyperparathyroidism [id number] Stage 3b chronic kidney disease (CKD) Type [...] (CKD) Anemia Edema Fibrillary glomerulonephritis Hyperkalemia Hyperparathyroidism [id number] 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 Chief Complaint METER RENAL 2 WK INJ / RETACRIT / NURSE RENAL 2 WK INJ/RETACRIT/NURSE RENAL 2WK INJ / RETACRIT / NURSE RENAL 2 WK INJ / RETACRIT / DR RENAL 2 WK INJ / RETACRIT / NURSE RENAL 3 WK INJ / RETACRIT / DR Reason for Visit BMI 40.0-44.9, adult Diabetes Dietary counseling and surveillance HTN (hypertension) Hyperlipidemia Vitamin B 12 deficiency Anemia Stage 3a chronic kidney disease (CKD) Anemia Anemia of renal disease Stage 3a chronic kidney disease (CKD) Anemia of renal disease Stage 3b chronic kidney disease (CKD) Anemia Edema Fibrillary glomerulonephritis Hyperkalemia Hyperparathyroidism [id number] 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 Anemia Anemia of renal disease 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 [id number] Additional Source Comments REASON FOR VISIT (unrecogniz ed section and content) Reason Comments Follow-up EST PT IP TTH ATRIAL FIB-PER SUELLEN SCHED W/PT Reason Comments Follow-up HOSP F/U 05/08-05/10 TTH-L/S MBE-LABS 05/10TTH-CHEST XRAY 05/09TT-ECHO 05/09TT-SCHD APPT W/PT Reason Comments Follow-up EST PT 9 WEEK FU Med Refill Amiodarone and crest or Reason Comments Nail care Margie Martínez is a 83 y.o. female who presents for DM Foot Care PCP: Anika Henry LV 10/31/23, A1C: 5.4, BS:, 93 SS: 7.5-8). INFORMATION SOURCE (unrecogn ized section and content) DATE CREATED AUTHOR 10/27/2022 [facility] DATE CREATED AUTHOR AUTHOR'S ORGANIZ ATION 09/08/2023 [facility] DATE CREATED AUTHOR AUTHOR'S ORGANIZ ATION 09/13/2023 [facility] EPIC DATE CREATED AUTHOR AUTHOR'S ORGANIZ ATION 01/13/2024 [facility] DATE CREATED AUTHOR AUTHOR'S ORGANIZ ATION 03/05/2024 [facility] Care Teams (unrecognized sec tion and content) Team Status: Active Member Role Status Dates Anika Henry NP-C Primary Care Provider Active Team Status: Inactive Member Role Status Dates Anika Henry NP-C Primary Care Provider Active Start: December 08, [...] Active Star t: January 05, 2024 Anika Henry NP-C Primary Care Provider Active Start: January 05, 2024 Team Status: Inactive Member Role Status Dates Anika Henry NP-C Primary Care Provider Active Start: January 13, 2024 End: January 13, 2024 Rin Sarmiento MD Attending Provider Active Star t: January 13, 2024 End: January 13, 2024 Team Status: Active Member Role Status Dates Becca Rodriguez MD Attending Provider Active Start : January 20, 2024 Anika Henry NP-C Primary Care Provider Active Start: January 20, 2024 Team Status: Active Member Role Status Dates Rin Sarmiento MD Attending Provider Active Star t: January 23, 2024 Anika Henry NP-C Primary Care Provider Active Start: January 23, 2024 Team Status: Inactive Member Role Status Dates Anika Henry MANAGER LIFE-C Primary Care Provider Active Start: January 27, 2024 End: January 27, 2024 Rin Sarmiento MD Attending Provider Active Star t: January 27, 2024 End: January 27, 2024 Team Status: Active Member Role Status Dates Rin Sarmiento MD Attending Provider Active Star t: February 03, 2024 Anika Henry MANAGER LIFE-C Primary Care Provider Active Start: February 03, 2024 Team Status: Inactive Member Role Status Dates Anika Henry MANAGER LIFE-C Primary Care Provider Active Start: February 10, 2024 End: February 10, 2024 Rin Sarmiento MD Attending Provider Active Star t: February 10, 2024 End: February 10, 2024 Team Status: Active Member Role Status Dates Rin Sarmiento MD Attending Provider Active Star t: February 23, 2024 nAika Henry MANAGER LIFE-C Primary Care Provider Active Start: February 23, 2024 Team Status: Inactive Member Role Status Dates Anika Henry MANAGER [employer]-C Primary Care Provider Active Start: March 02, 2024 End: March 02, 2024 Rin Sarmiento MD Attending Provider Active Star t: March 02, 2024 End: March 02, 2024 Team Status: Active Member Role Status Dates Anika Henry MANAGER [employer]-C Primary Care Provider Active Start: October 30, 2023 Rin Sarmiento MD Attending Provider Active Star t: October 30, 2023 Team Status: Inactive Member Role Status Dates Anika Henry MANAGER [employer]-C Primary Care Provider Active Start: November 05, 2023 End: November 05, 2023 Rin Sarmiento MD Attending Provider Active Star t: November 05, 2023 End: November 05, 2023 Team Status: Active Member Role Status Dates Anika Henry MANAGER [employer]-C Primary Care Provider Active Start: November 13, 2023 Rin Sarmiento MD Attending Provider Active Star t: November 13, 2023 Team Status: Inactive Member Role Status Dates Anika Henry MANAGER [employer]-C Primary Care Provider Active Start: November 18, 2023 End: November 18, 2023 Rin Sarmiento MD Attending Provider Active Star t: November 18, 2023 End: November 18, 2023 Team Status: Active Member Role Status Dates Rin Sarmiento MD Attending Provider Active Star t: November 27, 2023 Anika Henry MANAGER LIFE-C Primary Care Provider Active Start: November 27, 2023 Team Status: Inactive Member Role Status Dates Anika Henry MANAGER LIFE-C Primary Care Provider Active Start: October 15, 2023 End: October 15, 2023 Rin Sarmiento MD Attending Provider Active Star t: October 15, 2023 End: October 15, 2023 Team Status: Active Member Role Status Dates Anika Henry MANAGER LIFE-C Primary Care Provider Active Start: September 16, 2023 Rin Sarmiento MD Attending Provider Active Star t: September 16, 2023 Team Status: Inactive Member Role Status Dates Anika Henry MANAGER [employer]-C Primary Care Provider Active Start: September 23, 2023 End: September 23, 2023 Rin Sarmiento MD Attending Provider Active Star t: September 23, 2023 End: September 23, 2023 Team Status: Active Member Role Status Dates Rin Sarmiento MD Attending Provider Active Star t: October 07, 2023 Anika Henry MANAGER LIFE-C Primary Care Provider Active Start: October 07, 2023 Team Status: Inactive Member Role Status Dates Anika Henry MANAGER LIFE-C Primary Care Provider Active Start: August 13, 2023 End: August 13, 2023 Rin Sarmiento MD Attending Provider Active Star t: August 13, 2023 End: August 13, 2023 Team Status: Inactive Member Role Status Dates Anika Henry MANAGER LIFE-C Primary Care Provider Active Start: August 20, 2023 End: August 20, 2023 Chester Lin APRN Attending Provider Active Start: August 20, 2023 End: August 20, 2023 Team Status: Inactive Member Role Status Dates Anika Henry MANAGER LIFE-C Primary Care Provider Active Start: September 01, 2023 End: September 01, 2023 Rin Sarmiento MD Attending Provider Active Star t: September 01, 2023 End: September 01, 2023 Team Status: Inactive Member Role Status Dates Anika Henry MANAGER LIFE-C Primary Care Provider Active Start: September 09, [...] Provider Active Star t: August 05, 2023 Clinical Rn Manager Relationship Specialty Start Date End Date Anika Henry APRN-CNP [address] [facility] [place] [address] PCP - General Family Medicine 04/29/23 Clinical Rn Manager Relationship Specialty Start Date End Date Anika Henry APRN-CONFLICTS ANALYST [address] [facility], [place] [address] PCP - General Family Medicine 04/29/23 Clinical Rn Manager Relationship Specialty Start Date End Date Anika Henry APRN-CONFLICTS ANALYST [address] [facility], [place] [address] PCP - General Family Medicine 04/29/23 Clinical Rn Manager Relationship Specialty Start Date End Date Anika Henry APRN-CONFLICTS ANALYST [address] [facility], [place] [address] PCP - General Family Medicine 04/29/23 Clinical Rn Manager Relationship Specialty Start Date End Date Anika Henry APRN-CONFLICTS ANALYST [address] [facility], [place] [address] PCP - General Family Medicine 04/29/23 Clinical Rn Manager Relationship Specialty Start Date End Date Anika Henry APRN-CNP [address] [facility], [place] [address] PCP - General Family Medicine 04/29/23 Clinical Rn Manager Relationship Specialty Start Date End Date Anika Henry APRN-CNP [address] [facility], [place] [address] PCP - General Family Medicine 04/29/23 Team Status: Inactive Member Role Status Dates Rin Sarmiento MD Attending Provider Active Star t: April 22, 2023 End: April 22, 2023 Clinical Rn Manager Relationship Specialty Start Date End Date Anika Henry APRN-CNP [address] [facility] [place] [address] PCP - General Family Medicine 04/29/23 Clinical Rn Manager Relationship Specialty Start Date End Date Anika Henry APRN-CNP [address] [facility] [place] [address] PCP - General Family Medicine 04/29/23 Clinical Rn Manager Relationship Specialty Start Date End Date Cole Henry MD [address] [place] [address] [phone] PCP - General Family Medicine 11/20/22 Clinical Rn Manager Relationship Specialty Start Date End Date Cole Henry MD [address] [place], [place] [phone] PCP - General Family Medicine 11/20/22 Goals (unrecognized section and content) Goals may [...] BE BASED ON THE PRIMARY CLINICAL RECORDS. [facility] [employer] [facility]. provides no warranty or guarantee of the accuracy or completeness of information in this document.
[2024-03-17 08:50] LABS: Hematocrit 32.8 % (36.0-48.0); Hemoglobin 9.8 g/dL (12.0-16.0); Mean Corpuscular HGB Conc 29.9 g/dL (29.9-35.2); Mean Corpuscular Hemoglobin 29.5 pg (26.7-34.0); Mean Corpuscular Volume 98.8 fL (81.0-99.0); Mean Platelet Volume 10.1 fL (9.5-13.5); Platelet Count 179 10^3/uL (150-450); Red Blood Count 3.32 10^6/uL (4.20-5.40); Red Cell Distribution Width 14.8 % (11.0-15.0); White Blood Count 6.3 10^3/uL (4.0-11.0)
[2024-03-17 09:37] LABS: Magnesium 2.2 mg/dL (1.8-2.4)
[2024-03-17 10:18] LABS: Percent Iron Saturation 22.7 %
[2024-03-18 04:07] LABS: Vitamin B12 1103 pg/mL (232-1245)
[2024-03-18 11:10] LABS: PTH, Intact 78 pg/mL (15-65)
== END 2024-03-17 08:10 | disposition home or self-care (01) ==
LOC: LAB 08:12
PROVIDERS: PCP Nurse Practitioner Family; Visit Provider Internal Medicine Nephrology
DX: I12.9 Hypertensive chronic kidney disease with stage 1 through stage 4 chronic kidney disease, or unspecified chronic kidney disease (principal); E10.22 Type 1 diabetes mellitus with diabetic chronic kidney disease; N18.4 Chronic kidney disease, stage 4 (severe); N18.9 Chronic kidney disease, unspecified; D63.1 Anemia in chronic kidney disease; E21.3 Hyperparathyroidism, unspecified
CPT/HCPCS: 36415; 82607; 82728; 82746; 83540; 83550; 83735; 83970; 85027

== ENCOUNTER 2024-03-21 04:08 | Emergency (ER) | payer MEDICARE, SELFPAY ==
[2024-03-21 04:13] VITALS: BP 199/78; PULSE 76; TEMP 36.5; O2SAT 96; BMI 39.8
[2024-03-21 04:19] VITALS: BP 162/88
--- OUTSIDE RECORDS SUMMARY | 2024-03-21 04:20 | XMS_ITS | CCD ---
Author Organization [facility] Care Team Providers Care Strategic Consultant Name Role Phone Chester Lin Unavailable Rin Sarmiento Unavailable Marixa Vasquez Unavailable Becca Rodriguez Unavailable ELAINE, ANIKA Primary Care Unavailable ELAINE, ANIKA Admitting Unavailable ELAINE, ANIKA Attending Unavailable ELAINE, ANIKA Consulting Unavailable ELAINE, ANIKA Primary Care Unavailable RIN SARMIENTO Attending Unavailable RIN SARMIENTO Consulting Unavailable RIN SARMIENTO Admitting Unavailable Ealine 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-FRUIT PICKER, Anika S Primary Care Provider DELORES Light-Thuy Donaldson Deepa Primary Care Provider MD Rin Sarmiento Attending Provider [phone] Elaine Anika Deepa Primary Care Unavailable Rin Sarmiento Attending Unavailable Rin Sarmiento Admitting Unavailable NO FAMILY, PHYSICIAN Primary Care Unavailable Chester Lin Attending Unavailable Chester Lin Admitting Unavailable SERVICE, JOBST Referring Unavailable ELAINE, ANIKA [...] Unavailable ELAINE, ANIKA S Primary Care Unavailable TONY, TR Aranda Referring Unavailable ELAINE, ANIKA S Primary Care [...] Elaine PLUNKETT, Cole Leon Primary Care Provider LUCI GANT Attending Unavailable LUCI GANT Attending Unavailable LUCI GANT Attending Unavailable STALIN, LUCI Harris Attending Unavailable Allergies Allergy Classification Reported Allergen(s) Allergy Type Date of Onset Reaction(s) Facility Angiotensin Converting Enzyme (JANETH) Inhibitors (1 source) Lisinopril Drug Allergy 11-18-19 [facility] Penicillins (antibiotic) (1 source) Penicillins Drug Allergy 11-18-19 [facility] Sulfonamides (antibiotic) (1 source) Sulfonamides (Antibiotic) Drug Allergy 11-18-19 [facility] (20 sources) Lisinopril Drug Allergy 04-22-[address] [facility] (20 sources) Penicillins (Antibiotic) Propensity to adverse reactions Unknown [facility] Other (20 sources) Sulfonamides (Antibiotic) Propensity to adverse reactions hives [facility] Other (17 sources) Penicillins; Translations: [PENICILLINS] Drug allergy (disorder) 04-05-20 16 [facility] Repository (1 source) Sulfonamides (Antibiotic) Drug allergy (disorder) 06-04-19 21 [facility] Repository (20 sources) Angiotensin-convert ing enzyme inhibitor agent; Translations: [JANETH INHIBITORS] Propensity to adverse reactions to drug 05-09-20 23 Other (See Comments) [facility] (20 sources) celecoxib; Translations: [CELECOXIB] Drug Allergy 05-09-20 23 Other (See Comments) [facility] (20 sources) Ibuprofen; Translations: [IBUPROFEN] Drug Allergy 05-09-20 23 GI Disturbance [facility] (19 sources) Penicillins Propensity to adverse reactions to drug 04-05-20 16 [facility] (20 sources) Sulfamethoxazole / Trimethoprim; Translations: [SULFAMETHOXAZOLE-T RIMETHOPRIM] Drug Allergy 06-27-19 20 [facility] (20 sources) Sulfonamides (Antibiotic); Translations: [SULFA (SULFONAMIDE ANTIBIOTICS)] Propensity to adverse reactions to drug 04-05-20 16 [facility] (1 source) Lisinopril Drug Allergy 09-01-[address] [facility] Repository (1 source) Penicillins Drug allergy (disorder) 09-01-[address] [facility] Rep[facility] (1 source) Sulfonamides (Antibiotic) Drug allergy (disorder) 09-01-[address] [facility] Repository (2 sources) Penicillins Propensity to adverse reactions 11-21-19 [facility] Medications Current Medications Medication Drug Class(es) Dates Sig (Normalized) Sig (Original) [id number] actuat albuterol 0.09 mg/actuat metered dose inhaler (20 sources) beta2-Adrenergic Agonist Start: 09-15-2023 take 2 puff(s) by inhalation every six hours as needed for wheezing albuterol (PROVENTIL HFA;VENTOLIN HFA) 90 mcg/actuation inhaler Indications: Shortness of breath , Chronic obstructive pulmonary disease, unspecified COPD type ([facility]) Inhale 2 puffs every 6 (six) hours [...] Chronic obstructive pulmonary disease, unspecified COPD type ([facility]) Inhale 2 puffs every 6 (six) hours [...] mL nebulizer Indications: COPD with acute exacerbation ([facility]) Inhale 3 mL by nebulization every 4 (four) hours as needed for wheezing or shortness of breath. 540 mL 2 09/23/2023 Active Start: 04-14-2023 take 3 mL by inhalat ion every four hours as needed for wheezing ipratropium-albuteroL (DUONEB) 0.5 mg-3 mg(2.5 mg base)/3 mL nebulizer Indications: COPD with acute exacerbation ([facility]) Inhale 3 mL by nebulization every 4 [...] take 1 tablet by mouth in the [facility] alendronate (Fosamax) 70 MG tablet Take [...] (20 sources) take 1 capsule by mo [facility] in the morning b complex vitamins capsule Take 1 capsule by mouth in the morning. Active take 1 capsule by mouth in the [facility] b complex vitamins capsule Take 1 capsule [...] 24 hrs for 90 days Active calcitriol 0.99423 mg oral capsule (20 sources) Vitamin D3 [...] 30, 2023 1:50pm Start: 05-28-2023 End: 08-20-2023 take 1 tablet by mouth three times [...] Indications: PAF (paroxysmal 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) (CMS-HCC) , [facility]PC current use of amiodarone take 1 tablet by mouth in the morning 90 tablet 2 01/09/2024 Active Start: 08-13-2023 take 125 ug by mouth once jonn y Levothyroxine Active 125 MCG PO Daily August 13, 2023 12:00am Start: 06-03-2023 take 1 tablet by laura th in the morning levothyroxine (SYNTHROID, LEVOTHROID) 125 MCG tablet Indications: PAF (paroxysmal 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) (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 30.6 g 3 04/14/2023 06/17/2023 Discontinued (Therapy completed) Start: 04-14-2023 take 2 puff(s) by in halation in the morning budesonide-formoteroL (SYMBICORT) 160-4.5 mcg/actuation inhaler Indications: Chronic obstructive pulmonary disease, unspecified COPD type ([facility]) Inhale 2 puffs in the morning and [...] Ochoa-Epbx (Retacrit) 20,000 unit/2 mL solution Discontinued 76379 UNIT SUBCUT 3 Times a week 77.985 90 September 09, 2023 12:00am September 23, 2023 10:48am Start: 09-09-2023 Epoetin Ochoa-E pbx (Retacrit) 20,000 unit/2 mL solution Active 38915 UNIT SUBCUT 3 Times a week 77.985 [...] Essential hypertension; Translations: [Essential (primary) hypertension] Onset: 01-05-2022 Resolved: 05-23-2021 Chronic Fluid and electrolyte disorders [...] sources) Long-term current use of insulin; Translations: [FPC (current) use of insulin] Episodic Other aftercare (4 sources) 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 Interpretation and review of laboratory results Abnormal SEEC AB System [facility] Erythrocyte distribution wid th Auto (RBC) [Ratio]on 02-23-2024 Erythrocyte distribution width (RBC) [Ratio] 15.1 % High 11.0-15.[address] [facility] Estimated glomerular filtrat ion rate (GFR) non- Americanon 02-23-2024 GFR/1.73 sq M.predicted among non-blacks MDRD (S/P/Bld) [Vol rate/Area] 20 mL/min/{1.73_m2} Low >=60 mL/min/1.7 [address]m [address] [facility] Hematocrit Auto (Bld) [Volum e fraction]on 02-23-2024 Hematocrit (Bld) [Volume fraction] 32.8 % Low 36.0-48.[address] [facility] Hemoglobin [Mass/volume] in Bloodon 02-23-2024 Hemoglobin (Bld) [Mass/Vol] 9.7 g/dL Low 12.0-16.[address] [facility] Laboratory - Chemistry and C hemistry - challengeon 02-23-2024 Albumin [Mass/Vol] 3.0 g/dL Low 3.4-5.0 [facility] Calcium [Mass/Vol] 8.9 mg/dL 8.5-10.1 [facility] Chloride [Moles/Vol] 107 mmol/L 98-107 [facility] CO2 [Moles/Vol] 28.7 mmol/L 21.0-32.0 [facility] Creatinine [Mass/Vol] 2.30 mg/dL High 0.55-1.02 [facility] GFR/1.73 sq M.predicted MDRD (S/P/Bld) [Vol rate/Area] 25 mL/min/{1.73_m2} Low >=60 mL/min/1.7 3m [address] [facility] Glucose [Mass/Vol] 97 mg/dL 74-106 [facility] Potassium [Moles/Vol] 4.0 mmol/L 3.5-5.1 [facility] Sodium [Moles/Vol] 144 mmol/L 136-145 [facility] Urea nitrogen [Mass/Vol] 50.0 mg/dL High 7.0-18.[address] [facility] Urea nitrogen/Creatinine [Mass ratio] 21.7 mg/mg [facility] Leukocytes [#/volume] correc katy for nucleated erythrocytes in Blood by Automated counon 02-23-2024 WBC corrected for nucl RBC Auto (Bld) [#/Vol] 4.8 10 3/uL 4.0-11.[address] [facility] MCH Auto (RBC) [Entitic mass ]on 02-23-2024 MCH (RBC) [Entitic mass] 29.4 pg 26.7-34.[address] [facility] MCHC Auto (RBC) [Mass/Vol]on 02-23-2024 MCHC (RBC) [Mass/Vol] 29.6 g/dL Low 29.9-35.2 [facility] MCV Auto (RBC) [Entitic vol] on 02-23-2024 MCV (RBC) [Entitic vol] 99.4 fL High 81.0-99.[address] [facility] No Panel Informationon 02-22 Phosphorus Level 3.6 mg/dL 2.6-4.7 [facility] Platelet mean volume Auto (B ld) [Entitic vol]on 02-23-2024 Platelet mean volume (Bld) [Entitic vol] 9.7 fL 9.5-13.[address] [facility] Platelets Auto (Bld) [#/Vol] on 02-23-2024 Platelets (Bld) [#/Vol] 170 10 3/uL 150-[address] [facility] RBC Auto (Bld) [#/Vol]on RBC (Bld) [#/Vol] 3.30 10 6/uL Low 4.20-5.40 [facility] Serum or plasma anion gap de terminationon 02-23-2024 Anion gap [Moles/Vol] 12.3 [facility] Erythrocyte distribution wid th Auto (RBC) [Ratio]on 02-03-2024 Erythrocyte distribution width (RBC) [Ratio] 14.4 % 11.0-15.[address] [facility] Estimated glomerular filtrat ion rate (GFR) non- Americanon 02-03-2024 GFR/1.73 sq M.predicted among non-blacks MDRD (S/P/Bld) [Vol rate/Area] 19 mL/min/{1.73_m2} Low >=[address] [facility] Hematocrit Auto (Bld) [Volum e fraction]on 02-03-2024 Hematocrit (Bld) [Volume fraction] 33.5 % Low 36.0-48.[address] [facility] Hemoglobin [Mass/volume] in Bloodon 02-03-2024 Hemoglobin (Bld) [Mass/Vol] 10.0 g/dL Low 12.0-16.[address] [facility] Laboratory - Chemistry and C hemistry - challengeon 02-03-2024 Albumin [Mass/Vol] 3.1 g/dL Low 3.4-5.0 [facility] Calcium [Mass/Vol] 8.8 mg/dL 8.5-10.1 [facility] Chloride [Moles/Vol] 103 mmol/L 98-107 [facility] CO2 [Moles/Vol] 32.9 mmol/L High 21.0-32.0 [facility] Creatinine [Mass/Vol] 2.48 mg/dL High 0.55-1.02 [facility] GFR/1.73 sq M.predicted MDRD (S/P/Bld) [Vol rate/Area] 23 mL/min/{1.73_m2} Low >=[address] [facility] Glucose [Mass/Vol] 101 mg/dL 74-106 [facility] Potassium [Moles/Vol] 4.6 mmol/L 3.5-5.1 [facility] Sodium [Moles/Vol] 141 mmol/L 136-145 [facility] Urea nitrogen [Mass/Vol] 51.0 mg/dL High 7.0-18.[address] [facility] Urea nitrogen/Creatinine [Mass ratio] 20.6 mg/mg [facility] Leukocytes [#/volume] correc katy for nucleated erythrocytes in Blood by Automated counon 02-03-2024 WBC corrected for nucl RBC Auto (Bld) [#/Vol] 6.3 10 3/uL 4.0-11.[address] [facility] MCH Auto (RBC) [Entitic mass ]on 02-03-2024 MCH (RBC) [Entitic mass] 29.4 pg 26.7-34.[address] [facility] MCHC Auto (RBC) [Mass/Vol]on 02-03-2024 MCHC (RBC) [Mass/Vol] 29.9 g/dL 29.9-35.2 [facility] MCV Auto (RBC) [Entitic vol] on 02-03-2024 MCV (RBC) [Entitic vol] 98.5 fL 81.0-99.[address] [facility] No Panel Informationon 02-02 Phosphorus Level 4.7 mg/dL 2.6-4.7 [facility] Platelet mean volume Auto (B ld) [Entitic vol]on 02-03-2024 Platelet mean volume (Bld) [Entitic vol] 9.6 fL 9.5-13.[address] [facility] Platelets Auto (Bld) [#/Vol] on 02-03-2024 Platelets (Bld) [#/Vol] 227 10 3/uL 150-[address] [facility] RBC Auto (Bld) [#/Vol]on RBC (Bld) [#/Vol] 3.40 10 6/uL Low 4.20-5.40 [facility] Serum or plasma anion gap de terminationon 02-03-2024 Anion gap [Moles/Vol] 9.7 mmol/L [facility] Estimated glomerular filtrat ion rate (GFR) non- Americanon 01-23-2024 GFR/1.73 sq M.predicted among non-blacks MDRD (S/P/Bld) [Vol rate/Area] 23 mL/min/{1.73_m2} Low >=[address] [facility] Laboratory - Chemistry and C hemistry - challengeon 01-23-2024 Albumin [Mass/Vol] 3.0 g/dL Low 3.4-5.0 [facility] Calcium [Mass/Vol] 8.6 mg/dL 8.5-10.1 [facility] Chloride [Moles/Vol] 107 mmol/L 98-107 [facility] CO2 [Moles/Vol] 30.8 mmol/L 21.0-32.0 [facility] Creatinine [Mass/Vol] 2.09 mg/dL High 0.55-1.02 [facility] GFR/1.73 sq M.predicted MDRD (S/P/Bld) [Vol rate/Area] 27 mL/min/{1.73_m2} Low >=[address] [facility] Glucose [Mass/Vol] 100 mg/dL 74-106 [facility] Potassium [Moles/Vol] 5.8 mmol/L High 3.5-5.1 [facility] Sodium [Moles/Vol] 144 mmol/L 136-145 [facility] Urea nitrogen [Mass/Vol] 44.0 mg/dL High 7.0-18.[address] [facility] Urea nitrogen/Creatinine [Mass ratio] 21.1 mg/mg [facility] No Panel Informationon 01-22 Phosphorus Level 4.1 mg/dL 2.6-4.7 [facility] Serum or plasma anion gap de terminationon 01-23-2024 Anion gap [Moles/Vol] 12.0 mmol/L [facility] Erythrocyte distribution wid th Auto (RBC) [Ratio]on 01-20-2024 Erythrocyte distribution width (RBC) [Ratio] 15.0 % 11.0-15.[address] [facility] Estimated glomerular filtrat ion rate (GFR) non- Americanon 01-20-2024 GFR/1.73 sq M.predicted among non-blacks MDRD (S/P/Bld) [Vol rate/Area] 23 mL/min/{1.73_m2} Low >=[address] [facility] Hematocrit Auto (Bld) [Volum e fraction]on 01-20-2024 Hematocrit (Bld) [Volume fraction] 32.5 % Low 36.0-48.[address] [facility] Hemoglobin [Mass/volume] in Bloodon 01-20-2024 Hemoglobin (Bld) [Mass/Vol] 9.6 g/dL Low 12.0-16.[address] [facility] Iron binding capacity [Mass/ volume] in Serum or Plasmaon 01-20-2024 Iron binding capacity [Mass/Vol] 260.0 ug/dL 250.0-450. [address] [facility] Iron saturation [Mass Fracti on] in Serum or Plasmaon 01-20-2024 Iron saturation [Mass fraction] 10.0 % [facility] Laboratory - Chemistry and C hemistry - challengeon 01-20-2024 Albumin [Mass/Vol] 3.0 g/dL Low 3.4-5.0 [facility] Calcium [Mass/Vol] 8.5 mg/dL 8.5-10.1 [facility] Chloride [Moles/Vol] 108 mmol/L High 98-107 [facility] CO2 [Moles/Vol] 31.6 mmol/L 21.0-32.0 [facility] Creatinine [Mass/Vol] 2.06 mg/dL High 0.55-1.02 [facility] Ferritin [Mass/Vol] 36.0 ng/mL 8.0-252.0 [facility] GFR/1.73 sq M.predicted MDRD (S/P/Bld) [Vol rate/Area] 28 mL/min/{1.73_m2} Low >=[address] [facility] Glucose [Mass/Vol] 106 mg/dL 74-106 [facility] Iron [Mass/Vol] 26.0 ug/dL Low 50.0-170.[address] [facility] Potassium [Moles/Vol] 5.8 mmol/L High 3.5-5.1 [facility] Sodium [Moles/Vol] 144 mmol/L 136-145 [facility] Urea nitrogen [Mass/Vol] 48.0 mg/dL High 7.0-18.[address] [facility] Urea nitrogen/Creatinine [Mass ratio] 23.3 mg/mg [facility] Leukocytes [#/volume] correc katy for nucleated erythrocytes in Blood by Automated counon 01-20-2024 WBC corrected for nucl RBC Auto (Bld) [#/Vol] 6.4 10 3/uL 4.0-11.[address] [facility] MCH Auto (RBC) [Entitic mass ]on 01-20-2024 MCH (RBC) [Entitic mass] 30.0 pg 26.7-34.[address] [facility] MCHC Auto (RBC) [Mass/Vol]on 01-20-2024 MCHC (RBC) [Mass/Vol] 29.5 g/dL Low 29.9-35.2 [facility] MCV Auto (RBC) [Entitic vol] on 01-20-2024 MCV (RBC) [Entitic vol] 101.6 fL High 81.0-99.[address] [facility] No Panel Informationon 01-19 Phosphorus Level 4.2 mg/dL 2.6-4.7 [facility] Platelet mean volume Auto (B ld) [Entitic vol]on 01-20-2024 Platelet mean volume (Bld) [Entitic vol] 9.6 fL 9.5-13.[address] [facility] Platelets Auto (Bld) [#/Vol] on 01-20-2024 Platelets (Bld) [#/Vol] 196 10 3/uL 150-[address] [facility] RBC Auto (Bld) [#/Vol]on RBC (Bld) [#/Vol] 3.20 10 6/uL Low 4.20-5.40 [facility] Serum or plasma anion gap de terminationon 01-20-2024 Anion gap [Moles/Vol] 10.2 mmol/L [facility] 36on 01-07-2024 36 [facility] [id number] MauricioDany guanaco [place] 1940 F Date Provider Department Center 01/[id number]/[id number] [facility] IM [facility] No family history on file Reason for Visit and Comments: Med Refill [[id number]] Normal [facility] Erythrocyte distribution wid th Auto (RBC) [Ratio]on 01-05-2024 Erythrocyte distribution width (RBC) [Ratio] 14.2 % 11.0-15.[address] [facility] Hematocrit Auto (Bld) [Volum e fraction]on 01-05-2024 Hematocrit (Bld) [Volume fraction] 32.4 % Low 36.0-48.[address] [facility] Hemoglobin [Mass/volume] in Bloodon 01-05-2024 Hemoglobin (Bld) [Mass/Vol] 9.8 g/dL Low 12.0-16.[address] [facility] Leukocytes [#/volume] correc katy for nucleated erythrocytes in Blood by Automated counon 01-05-2024 WBC corrected for nucl RBC Auto (Bld) [#/Vol] 5.7 10 3/uL 4.0-11.[address] [facility] MCH Auto (RBC) [Entitic mass ]on 01-05-2024 MCH (RBC) [Entitic mass] 30.1 pg 26.7-34.[address] [facility] MCHC Auto (RBC) [Mass/Vol]on 01-05-2024 MCHC (RBC) [Mass/Vol] 30.2 g/dL 29.9-35.2 [facility] MCV Auto (RBC) [Entitic vol] on 01-05-2024 MCV (RBC) [Entitic vol] 99.4 fL High 81.0-99.[address] [facility] Platelet mean volume Auto (B ld) [Entitic vol]on 01-05-2024 Platelet mean volume (Bld) [Entitic vol] 9.3 fL Low 9.5-13.[address] [facility] Platelets Auto (Bld) [#/Vol] on 01-05-2024 Platelets (Bld) [#/Vol] 211 10 3/uL 150-[address] [facility] RBC Auto (Bld) [#/Vol]on RBC (Bld) [#/Vol] 3.26 10 6/uL Low 4.20-5.40 [facility] No Panel Informationon 12-07 Bedside Glucose [address] [facility] Erythrocyte distribution wid th Auto (RBC) [Ratio]on 11-27-2023 Erythrocyte distribution width (RBC) [Ratio] 14.7 % 11.0-15.[address] [facility] Hematocrit Auto (Bld) [Volum e fraction]on 11-27-2023 Hematocrit (Bld) [Volume fraction] 31.1 % Low 36.0-48.[address] [facility] Hemoglobin [Mass/volume] in Bloodon 11-27-2023 Hemoglobin (Bld) [Mass/Vol] 9.3 g/dL Low 12.0-16.[address] [facility] Leukocytes [#/volume] correc katy for nucleated erythrocytes in Blood by Automated counon 11-27-2023 WBC corrected for nucl RBC Auto (Bld) [#/Vol] 5.4 10 3/uL 4.0-11.[address] [facility] MCH Auto (RBC) [Entitic mass ]on 11-27-2023 MCH (RBC) [Entitic mass] 29.5 pg 26.7-34.[address] [facility] MCHC Auto (RBC) [Mass/Vol]on 11-27-2023 MCHC (RBC) [Mass/Vol] 29.9 g/dL 29.9-35.2 [facility] MCV Auto (RBC) [Entitic vol] on 11-27-2023 MCV (RBC) [Entitic vol] 98.7 fL 81.0-99.[address] [facility] Platelet mean volume Auto (B ld) [Entitic vol]on 11-27-2023 Platelet mean volume (Bld) [Entitic vol] 9.9 fL 9.5-13.[address] [facility] Platelets Auto (Bld) [#/Vol] on 11-27-2023 Platelets (Bld) [#/Vol] 195 10 3/uL 150-[address] [facility] RBC Auto (Bld) [#/Vol]on RBC (Bld) [#/Vol] 3.15 10 6/uL Low 4.20-5.40 [facility] Erythrocyte distribution wid th Auto (RBC) [Ratio]on 11-13-2023 Erythrocyte distribution width (RBC) [Ratio] 14.6 % 11.0-15.[address] [facility] Estimated glomerular filtrat ion rate (GFR) non- Americanon 11-13-2023 GFR/1.73 sq M.predicted among non-blacks MDRD (S/P/Bld) [Vol rate/Area] 19 mL/min/{1.73_m2} Low >=[address] [facility] Hematocrit Auto (Bld) [Volum e fraction]on 11-13-2023 Hematocrit (Bld) [Volume fraction] 30.1 % Low 36.0-48.[address] [facility] Hemoglobin [Mass/volume] in Bloodon 11-13-2023 Hemoglobin (Bld) [Mass/Vol] 8.9 g/dL Low 12.0-16.[address] [facility] Laboratory - Chemistry and C hemistry - challengeon 11-13-2023 Albumin [Mass/Vol] 3.1 g/dL Low 3.4-5.0 [facility] Calcium [Mass/Vol] 8.4 mg/dL Low 8.5-10.1 [facility] Chloride [Moles/Vol] 106 mmol/L 98-107 [facility] CO2 [Moles/Vol] 29.3 mmol/L 21.0-32.0 [facility] Creatinine [Mass/Vol] 2.41 mg/dL High 0.55-1.02 [facility] GFR/1.73 sq M.predicted MDRD (S/P/Bld) [Vol rate/Area] 23 mL/min/{1.73_m2} Low >=[address] [facility] Glucose [Mass/Vol] 97 mg/dL 74-106 [facility] Potassium [Moles/Vol] 4.8 mmol/L 3.5-5.1 [facility] Sodium [Moles/Vol] 143 mmol/L 136-145 [facility] Urea nitrogen [Mass/Vol] 47.0 mg/dL High 7.0-18.[address] [facility] Urea nitrogen/Creatinine [Mass ratio] 19.5 mg/mg [facility] Leukocytes [#/volume] correc katy for nucleated erythrocytes in Blood by Automated counon 11-13-2023 WBC corrected for nucl RBC Auto (Bld) [#/Vol] 5.0 10 3/uL 4.0-11.[address] [facility] MCH Auto (RBC) [Entitic mass ]on 11-13-2023 MCH (RBC) [Entitic mass] 28.9 pg 26.7-34.[address] [facility] MCHC Auto (RBC) [Mass/Vol]on 11-13-2023 MCHC (RBC) [Mass/Vol] 29.6 g/dL Low 29.9-35.2 [facility] MCV Auto (RBC) [Entitic vol] on 11-13-2023 MCV (RBC) [Entitic vol] 97.7 fL 81.0-99.[address] [facility] No Panel Informationon 11-12 Phosphorus Level 4.2 mg/dL 2.6-4.7 [facility] Platelet mean volume Auto (B ld) [Entitic vol]on 11-13-2023 Platelet mean volume (Bld) [Entitic vol] 9.7 fL 9.5-13.[address] [facility] Platelets Auto (Bld) [#/Vol] on 11-13-2023 Platelets (Bld) [#/Vol] 228 10 3/uL 150-[address] [facility] RBC Auto (Bld) [#/Vol]on RBC (Bld) [#/Vol] 3.08 10 6/uL Low 4.20-5.40 [facility] Serum or plasma anion gap de terminationon 11-13-2023 Anion gap [Moles/Vol] 12.5 mmol/L [facility] Erythrocyte distribution wid th Auto (RBC) [Ratio]on 10-30-2023 Erythrocyte distribution width (RBC) [Ratio] 14.1 % 11.0-15.[address] [facility] Estimated glomerular filtrat ion rate (GFR) non- Americanon 10-30-2023 GFR/1.73 sq M.predicted among non-blacks MDRD (S/P/Bld) [Vol rate/Area] 18 mL/min/{1.73_m2} Low >=[address] [facility] Hematocrit Auto (Bld) [Volum e fraction]on 10-30-2023 Hematocrit (Bld) [Volume fraction] 28.0 % Low 36.0-48.[address] [facility] Hemoglobin [Mass/volume] in Bloodon 10-30-2023 Hemoglobin (Bld) [Mass/Vol] 8.3 g/dL Low 12.0-16.[address] [facility] Laboratory - Chemistry and C hemistry - challengeon 10-30-2023 Albumin [Mass/Vol] 2.9 g/dL Low 3.4-5.0 [facility] Calcium [Mass/Vol] 8.6 mg/dL 8.5-10.1 [facility] Chloride [Moles/Vol] 107 mmol/L 98-107 [facility] CO2 [Moles/Vol] 28.1 mmol/L 21.0-32.0 [facility] Creatinine [Mass/Vol] 2.52 mg/dL High 0.55-1.02 [facility] GFR/1.73 sq M.predicted MDRD (S/P/Bld) [Vol rate/Area] 22 mL/min/{1.73_m2} Low >=[address] [facility] Glucose [Mass/Vol] 100 mg/dL 74-106 [facility] Potassium [Moles/Vol] 5.7 mmol/L High 3.5-5.1 [facility] Sodium [Moles/Vol] 142 mmol/L 136-145 [facility] Urea nitrogen [Mass/Vol] 43.0 mg/dL High 7.0-18.[address] [facility] Urea nitrogen/Creatinine [Mass ratio] 17.1 mg/mg [facility] Leukocytes [#/volume] correc katy for nucleated erythrocytes in Blood by Automated counon 10-30-2023 WBC corrected for nucl RBC Auto (Bld) [#/Vol] 4.6 10 3/uL 4.0-11.[address] [facility] MCH Auto (RBC) [Entitic mass ]on 10-30-2023 MCH (RBC) [Entitic mass] 28.7 pg 26.7-34.[address] [facility] MCHC Auto (RBC) [Mass/Vol]on 10-30-2023 MCHC (RBC) [Mass/Vol] 29.6 g/dL Low 29.9-35.2 [facility] MCV Auto (RBC) [Entitic vol] on 10-30-2023 MCV (RBC) [Entitic vol] 96.9 fL 81.0-99.[address] [facility] No Panel Informationon 10-29 Parathyroid Hormone (Intact) 73 pg/mL Abnormal 15-[address] [facility] Comment on above: Performed at: [facility] [employer] [address] [id number] Director: Deshaun Hunter PhD, Phone: [phone] Phosphorus Level 4.3 mg/dL 2.6-4.7 [facility] Platelet mean volume Auto (B ld) [Entitic vol]on 10-30-2023 Platelet mean volume (Bld) [Entitic vol] 9.8 fL 9.5-13.[address] [facility] Platelets Auto (Bld) [#/Vol] on 10-30-2023 Platelets (Bld) [#/Vol] 178 10 3/uL 150-[address] [facility] RBC Auto (Bld) [#/Vol]on RBC (Bld) [#/Vol] 2.89 10 6/uL Low 4.20-5.40 [facility] Serum or plasma anion gap de terminationon 10-30-2023 Anion gap [Moles/Vol] 12.6 mmol[facility] Erythrocyte distribution wid th Auto (RBC) [Ratio]on 10-07-2023 Erythrocyte distribution width (RBC) [Ratio] 14.2 % 11.0-15.[address] [facility] Hematocrit Auto (Bld) [Volum e fraction]on 10-07-2023 Hematocrit (Bld) [Volume fraction] 28.0 % Low 36.0-48.[address] [facility] Hemoglobin [Mass/volume] in Bloodon 10-07-2023 Hemoglobin (Bld) [Mass/Vol] 8.6 g/dL Low 12.0-16.[address] [facility] Leukocytes [#/volume] correc katy for nucleated erythrocytes in Blood by Automated counon 10-07-2023 WBC corrected for nucl RBC Auto (Bld) [#/Vol] 5.1 10 3/uL 4.0-11.[address] [facility] MCH Auto (RBC) [Entitic mass ]on 10-07-2023 MCH (RBC) [Entitic mass] 30.1 pg 26.7-34.[address] [facility] MCHC Auto (RBC) [Mass/Vol]on 10-07-2023 MCHC (RBC) [Mass/Vol] 30.7 g/dL 29.9-35.2 [facility] MCV Auto (RBC) [Entitic vol] on 10-07-2023 MCV (RBC) [Entitic vol] 97.9 fL 81.0-99.[address] [facility] Platelet mean volume Auto (B ld) [Entitic vol]on 10-07-2023 Platelet mean volume (Bld) [Entitic vol] 10.1 fL 9.5-13.[address] [facility] Platelets Auto (Bld) [#/Vol] on 10-07-2023 Platelets (Bld) [#/Vol] 194 10 3/uL 150-[address] [facility] RBC Auto (Bld) [#/Vol]on RBC (Bld) [#/Vol] 2.86 10 6/uL Low 4.20-5.40 [facility] Erythrocyte distribution wid th Auto (RBC) [Ratio]on 09-16-2023 Erythrocyte distribution width (RBC) [Ratio] 14.0 % 11.0-15.[address] [facility] Estimated glomerular filtrat ion rate (GFR) non- Americanon 09-16-2023 GFR/1.73 sq M.predicted among non-blacks MDRD (S/P/Bld) [Vol rate/Area] 22 mL/min/{1.73_m2} Low >=[address] [facility] Hematocrit Auto (Bld) [Volum e fraction]on 09-16-2023 Hematocrit (Bld) [Volume fraction] 25.6 % Low 36.0-48.[address] [facility] Hemoglobin [Mass/volume] in Bloodon 09-16-2023 Hemoglobin (Bld) [Mass/Vol] 7.5 g/dL Low 12.0-16.[address] [facility] Laboratory - Chemistry and C hemistry - challengeon 09-16-2023 Albumin [Mass/Vol] 3.1 g/dL Low 3.4-5.0 [facility] Calcium [Mass/Vol] 9.2 mg/dL 8.5-10.1 [facility] Chloride [Moles/Vol] 107 mmol/L 98-107 [facility] CO2 [Moles/Vol] 28.2 mmol/L 21.0-32.0 [facility] Creatinine [Mass/Vol] 2.17 mg/dL High 0.55-1.02 [facility] GFR/1.73 sq M.predicted MDRD (S/P/Bld) [Vol rate/Area] 26 mL/min/{1.73_m2} Low >=[address] [facility] Glucose [Mass/Vol] 98 mg/dL 74-106 [facility] Potassium [Moles/Vol] 5.1 mmol/L 3.5-5.1 [facility] Sodium [Moles/Vol] 142 mmol/L 136-145 [facility] Urea nitrogen [Mass/Vol] 43.0 mg/dL High 7.0-18.[address] [facility] Urea nitrogen/Creatinine [Mass ratio] 19.8 mg/mg [facility] Laboratory - Urinalysison Protein (U) [Mass/Vol] 117.6 mg/dL High <=11.9 [facility] Leukocytes [#/volume] correc katy for nucleated erythrocytes in Blood by Automated counon 09-16-2023 WBC corrected for nucl RBC Auto (Bld) [#/Vol] 5.4 10 3/uL 4.0-11.[address] [facility] MCH Auto (RBC) [Entitic mass ]on 09-16-2023 MCH (RBC) [Entitic mass] 29.2 pg 26.7-34.[address] [facility] MCHC Auto (RBC) [Mass/Vol]on 09-16-2023 MCHC (RBC) [Mass/Vol] 29.3 g/dL Low 29.9-35.2 [facility] MCV Auto (RBC) [Entitic vol] on 09-16-2023 MCV (RBC) [Entitic vol] 99.6 fL High 81.0-99.[address] [facility] No Panel Informationon 09-15 Parathyroid Hormone (Intact) 75 pg/mL Abnormal 15-[address] [facility] Comment on above: Performed at: [facility] [employer] [address] Director: Deshaun Hunter PhD, Phone: [phone] Phosphorus Level 4.6 mg/dL 2.6-4.7 [facility] Urine Random Creatinine 38.12 mg/dL 20.00-300. [address] [facility] Platelet mean volume Auto (B ld) [Entitic vol]on 09-16-2023 Platelet mean volume (Bld) [Entitic vol] 10.3 fL 9.5-13.[address] [facility] Platelets Auto (Bld) [#/Vol] on 09-16-2023 Platelets (Bld) [#/Vol] 225 10 3/uL 150-[address] [facility] RBC Auto (Bld) [#/Vol]on RBC (Bld) [#/Vol] 2.57 10 6/uL Low 4.20-5.40 [facility] Serum or plasma anion gap de terminationon 09-16-2023 Anion gap [Moles/Vol] 11.9 mmol/L [facility] Urine protein/creatinine rat ioon 09-16-2023 Protein/Creatinine (U) [Ratio] 3.[address] [facility] Activated partial thrombopla stin time (aPTT) in platelet poor plasma by coagulation aOrdered By: Rin Sarmiento on 09-01-2023 aPTT Coag (PPP) [Time] 30.5 s 25.1-36.5 [facility] Comment on above: A hematocrit value g reater than 55% may lead to inaccurate results in coagulation testing. Patients having hematocrit values >55% require a special collection tube for coagulation studies. Please contact the laboratory at [phone] for redraw instructions. Albumin [Mass/volume] in Ser um or Plasma by Bromocresol green (BCG) dye binding methoOrdered By: Rin Sarmiento on 09-01-2023 Albumin BCG dye [Mass/Vol] 3.6 g/dL 3.5-5.[address] [facility] Automated erythrocytes count in urine sediment (number/area)Ordered By: Rin Sarmiento on 09-01-2023 RBC Auto (Urine sed) [#/Area] 50-100 [HPF] High 0-[address] [facility] Automated leukocytes count i n urine sediment (number/area)Ordered By: Rin Sarmiento on 09-01-2023 WBC Auto (Urine sed) [#/Area] 1-2 [HPF] 0-[address] [facility] Bilirubin Test strip Ql (U)O rdered By: Rin Sarmiento on 09-01-2023 Bilirubin Ql (U) Negative Negative [facility] CT guided needle placementon 09-01-2023 CT guided needle placement [facility] [place] [address] CT Scan Report Signed Patient: Margie Martínez MR#: [id number] : 1940 Acct:[id number] Age/Sex: 83 / F ADM Date: 09/01/23 Loc: CT Room: Type: [facility] Attending Dr: Rin Sarmiento MD Copies to: Rin Sarmiento MD Ordering Provider: Rin Sarmiento MD Date of Service: 09/01/23 CT/CT guided biopsy: ANGELINA with nephrotic range proteinuria, hypoalbumine ([id number]) CT/CT guided needle placement: random kidney bx [...] Urias Jr., D.O.09/01/2023 1:30 PM Dictation Location: [place] [address] Transcribed By: [facility] 09/01/23 1330 Dictated By: Kj Urias Jr, DO 09/01/23 1328 Signed By: 09/01/23 1330 Normal [facility] Calcium [Mass/volume] in Ser um or PlasmaOrdered By: Rin Sarmiento on 09-01-2023 Calcium [Mass/Vol] 8.9 mg/dL 8.6-10.3 [facility] Carbon dioxide, total [Moles /volume] in Serum or PlasmaOrdered By: Rin Sarmiento on 09-01-2023 CO2 [Moles/Vol] 30.5 mmol/L 21.0-31.0 [facility] Chloride [Moles/volume] in S adriana or PlasmaOrdered By: Rin Sarmiento on 09-01-2023 Chloride [Moles/Vol] 107 mmol/L 98-107 [facility] Color Auto (U)Ordered By: Domingo Sarmiento on 09-01-2023 Color (U) Yellow Yellow [facility] Creatinine [Mass/volume] in Serum or PlasmaOrdered By: Rin Sarmiento on 09-01-2023 Creatinine [Mass/Vol] 2.02 mg/dL High 0.60-1.20 [facility] Creatinine [Mass/volume] in UrineOrdered By: Rin Sarmiento on 09-01-2023 Creatinine (U) [Mass/Vol] 52.0 mg/dL [facility] Comment on above: No reference range e stablished Dipstick and Microscopicon 0 09-01-2023 Appearance (U) Cloudy Critically abnormal Clear [facility] Comment on above: Order Comment: Name Collection Type:: Clean-Voided Midstream Performed By: #### V [id number], BHANU, RENAL, [id number], ADDONUAPLUS, PROCRERAT, FLAKO, MG, PTH, PT, CBCNO, PTT, URMACRERAT, FE and TIBC #### [facility] [address] Bacteria,Urine None Seen Normal None Seen [facility] Comment on above: Order Comment: Name Collection Type:: Clean-Voided Midstream Performed By: #### V [id number], BHANU, RENAL, [id number], ADDONUAPLUS, PROCRERAT, FLAKO, MG, PTH, PT, CBCNO, PTT, URMACRERAT, FE and TIBC #### [address] Bilirubin,Urine Negative Normal Negative [facility] Comment on above: Order Comment: Name Collection Type:: Clean-Voided Midstream Performed By: #### V [id number], BHANU, RENAL, [id number], ADDONUAPLUS, PROCRERAT, FLAKO, MG, PTH, PT, CBCNO, PTT, URMACRERAT, FE and TIBC #### [facility] [address] Color (U) Yellow Normal Yellow [facility] Comment on above: Order Comment: Name Collection Type:: Clean-Voided Midstream Performed By: #### V [id number], BHANU, RENAL, [id number], ADDONUAPLUS, PROCRERAT, FLAKO, MG, PTH, PT, CBCNO, PTT, URMACRERAT, FE and TIBC #### [facility] [address] [place] [address] Glucose Ql (U) Normal Normal Normal [facility] Comment on above: Order Comment: Name Collection Type:: Clean-Voided Midstream Performed By: #### V [id number], BHANU, RENAL, [id number], ADDONUAPLUS, PROCRERAT, FLAKO, MG, PTH, PT, CBCNO, PTT, URMACRERAT, FE and TIBC #### [address] Hyaline Casts,Urine 0-8 Normal 0-8 [facility] Comment on above: Order Comment: Name Collection Type:: Clean-Voided Midstream Result Comment: PERF ORMED BY: [place] [address] PATHOLOGIST H[employer]SE[employer] JEWELL ROWLEY M.D. Performed By: #### V [id number], BHANU, RENAL, [id number], ADDONUAPLUS, PROCRERAT, FLAKO, MG, PTH, PT, CBCNO, PTT, URMACRERAT, FE and TIBC #### [address] Ketones Ql (U) Negative Normal Negative [facility] Comment on above: Order Comment: Name Collection Type:: Clean-Voided Midstream Performed By: #### V [id number], BHANU, RENAL, [id number], ADDONUAPLUS, PROCRERAT, FLAKO, MG, PTH, PT, CBCNO, PTT, URMACRERAT, FE and TIBC #### [address] Leukocyte esterase Test strip Ql (U) Negative Normal Negative [facility] Comment on above: Order Comment: Name Collection Type:: Clean-Voided Midstream Performed By: #### V [id number], BHANU, RENAL, [id number], ADDONUAPLUS, PROCRERAT, FLAKO, MG, PTH, PT, CBCNO, PTT, URMACRERAT, FE and TIBC #### [address] Nitrite,Urine Negative Normal Negative [facility] Comment on above: Order Comment: Name Collection Type:: Clean-Voided Midstream Performed By: #### V [id number], BHANU, RENAL, [id number], ADDONUAPLUS, PROCRERAT, FLAKO, MG, PTH, PT, CBCNO, PTT, URMACRERAT, FE and TIBC #### [address] Occult Blood,Urine 1+ High Negative [facility] Comment on above: Order Comment: Name Collection Type:: Clean-Voided Midstream Result Comment: PERF ORMED BY: [place] [address] PATHOLOGIST HOS[employer]ITAL [employer]SEK[employer] JEWELL ROWLEY M.D. Performed By: #### V [id number], BHANU, RENAL, [id number], ADDONUAPLUS, PROCRERAT, FLAKO, MG, PTH, PT, CBCNO, PTT, URMACRERAT, FE and TIBC #### [address] pH (U) 7.0 [pH] Normal 5.0-9.0 [facility] Comment on above: Order Comment: Name Collection Type:: Clean-Voided Midstream Performed By: #### V [id number], BHANU, RENAL, [id number], ADDONUAPLUS, PROCRERAT, FLAKO, MG, PTH, PT, CBCNO, PTT, URMACRERAT, FE and TIBC #### [address] Protein (U) [Mass/Vol] 300 mg/dL High Negative [facility] Comment on above: Order Comment: Name Collection Type:: Clean-Voided Midstream Performed By: #### V [id number], BHANU, RENAL, [id number], ADDONUAPLUS, PROCRERAT, FLAKO, MG, PTH, PT, CBCNO, PTT, URMACRERAT, FE and TIBC #### [address] RBC,Urine 50-100 High 0-4 [facility] Comment on above: Order Comment: Name Collection Type:: Clean-Voided Midstream Performed By: #### V [id number], BHANU, RENAL, [id number], ADDONUAPLUS, PROCRERAT, FLAKO, MG, PTH, PT, CBCNO, PTT, URMACRERAT, FE and TIBC #### [address] Specificy [place],Urine 1.015 Normal 1.001-1.03 0 [facility] Comment on above: Order Comment: Name Collection Type:: Clean-Voided Midstream Performed By: #### V [id number], BHANU, RENAL, [id number], ADDONUAPLUS, PROCRERAT, FLAKO, MG, PTH, PT, CBCNO, PTT, URMACRERAT, FE and TIBC #### [address] Squamous Epithelial Cell,Urine 0-1 Normal 0-2 [facility] Comment on above: Order Comment: Name Collection Type:: Clean-Voided Midstream Performed By: #### V [id number], BHANU, RENAL, [id number], ADDONUAPLUS, PROCRERAT, FALKO, MG, PTH, PT, CBCNO, PTT, URMACRERAT, FE and TIBC #### [address] Urobilinogen,Urine Normal Normal Normal [facility] Comment on above: Order Comment: Name Collection Type:: Clean-Voided Midstream Performed By: #### V [id number], BHANU, RENAL, [id number], ADDONUAPLUS, PROCRERAT, FLAKO, MG, PTH, PT, CBCNO, PTT, URMACRERAT, FE and TIBC #### [address] WBC,Urine 1-2 Normal 0-4 [facility] Comment on above: Order Comment: Name Collection Type:: Clean-Voided Midstream Performed By: #### V [id number], BHANU, RENAL, [id number], ADDONUAPLUS, PROCRERAT, FLAKO, MG, PTH, PT, CBCNO, PTT, URMACRERAT, FE and TIBC #### [facility] [address] [place] [address] [facility] Erythrocyte distribution wid th Auto (RBC) [Ratio]Ordered By: Rin Sarmiento on 09-01-2023 Erythrocyte distribution width (RBC) [Ratio] 14.7 % 11.9-15.[address] [facility] Ferritinon 09-01-2023 Ferritin [Mass/Vol] 16.5 ng/mL Normal 11.0-306.8 [facility] Comment on above: Performed By: #### V [id number], BHANU, RENAL, [id number], ADDONUAPLUS, PROCRERAT, FLAKO, MG, PTH, PT, CBCNO, PTT, URMACRERAT, FE and TIBC #### [facility] [address] [place] [address] [facility] Ferritin [Mass/volume] in Se rum or PlasmaOrdered By: Rin Sarmiento on 09-01-2023 Ferritin [Mass/Vol] 16.5 ng/mL 11.0-306.8 [facility] Folate [Mass/volume] in Seru m or PlasmaOrdered By: Rin Sarmiento on 09-01-2023 Folate [Mass/Vol] 16.5 ng/mL >5.9 [facility] Comment on above: Folate reference ran ge: >5.9 ng/mlThe WHO technical consultation on folate and vitamin [id number] has determined that folate concentrations lessthan 4 ng/ml are considered deficient. Glucose [Mass/volume] in Ser um or PlasmaOrdered By: Rin Sarmiento on 09-01-2023 Glucose [Mass/Vol] 121 mg/dL High 70-100 [facility] Comment on above: ADA recommended refe rence rangeRandom Glucose Reference Range is dependent on time and content of last meal. Glucose of more than 200 mg/dL in a nonstressed, ambulatory subject supports the diagnosis of Diabetes Mellitus. Hematocrit Auto (Bld) [Volum e fraction]Ordered By: Rin Sarmiento on 09-01-2023 Hematocrit (Bld) [Volume fraction] 25.0 % Low 34.0-46.[address] [facility] Hemoglobin [Mass/volume] in BloodOrdered By: Rin Sarmiento on 09-01-2023 Hemoglobin (Bld) [Mass/Vol] 8.0 g/dL Low 11.8-15.[address] [facility] Hemogram CBC Without Diffon 09-01-2023 Erythrocyte distribution width (RBC) [Ratio] 14.7 % Normal 11.9-15.3 [facility] Comment on above: Performed By: #### V [id number], BHANU, RENAL, [id number], ADDONUAPLUS, PROCRERAT, FLAKO, MG, PTH, PT, CBCNO, PTT, URMACRERAT, FE and TIBC #### [address] Hematocrit (Bld) [Volume fraction] 25.0 % Low 34.0-46.4 [facility] Comment on above: Performed By: #### V [id number], BHANU, RENAL, [id number], ADDONUAPLUS, PROCRERAT, FLAKO, MG, PTH, PT, CBCNO, PTT, URMACRERAT, FE and TIBC #### [address] Hemoglobin (Bld) [Mass/Vol] 8.0 g/dL Low 11.8-15.4 [facility] Comment on above: Performed By: #### V [id number], BHANU, RENAL, [id number], ADDONUAPLUS, PROCRERAT, FLAKO, MG, PTH, PT, CBCNO, PTT, URMACRERAT, FE and TIBC #### [address] MCH (RBC) [Entitic mass] 29.3 pg Normal 24.7-34.3 [facility] Comment on above: Performed By: #### V [id number], BHANU, RENAL, [id number], ADDONUAPLUS, PROCRERAT, FLAKO, MG, PTH, PT, CBCNO, PTT, URMACRERAT, FE and TIBC #### [address] MCV (RBC) [Entitic vol] 92.0 fL Normal 80-100 [facility] Comment on above: Performed By: #### V [id number], BHANU, RENAL, [id number], ADDONUAPLUS, PROCRERAT, FLAKO, MG, PTH, PT, CBCNO, PTT, URMACRERAT, FE and TIBC #### [address] Mean Corpuscular HGB Conc 31.9 g/dL Low 32.0-35.0 [facility] Comment on above: Performed By: #### V [id number], BHANU, RENAL, [id number], ADDONUAPLUS, PROCRERAT, FLAKO, MG, PTH, PT, CBCNO, PTT, URMACRERAT, FE and TIBC #### [address] Platelet mean volume (Bld) [Entitic vol] 8.1 fL Normal 6.3-10.7 [facility] Comment on above: Result Comment: PERF ORMED BY: [place] [address] PATHOLOGIST HOSPITAL HOUSEK[employer]PER JEWELL ROWLEY M.D. Performed By: #### V [id number], BHANU, RENAL, [id number], ADDONUAPLUS, PROCRERAT, FLAKO, MG, PTH, PT, CBCNO, PTT, URMACRERAT, FE and TIBC #### [address] Platelets (Bld) [#/Vol] 214 10*3/uL Normal 150-450 [facility] Comment on above: Performed By: #### V [id number], BHANU, RENAL, [id number], ADDONUAPLUS, PROCRERAT, FLAKO, MG, PTH, PT, CBCNO, PTT, URMACRERAT, FE and TIBC #### [address] RBC (Bld) [#/Vol] 2.72 10*6/uL Low 3.60-5.00 [facility] Comment on above: Performed By: #### V [id number], BHANU, RENAL, [id number], ADDONUAPLUS, PROCRERAT, FLAKO, MG, PTH, PT, CBCNO, PTT, URMACRERAT, FE and TIBC #### [facility] [address] WBC (Bld) [#/Vol] 4.7 10*3/uL Normal 3.8-11.6 [facility] Comment on above: Performed By: #### V [id number], BHANU, RENAL, [id number], ADDONUAPLUS, PROCRERAT, FLAKO, MG, PTH, PT, CBCNO, PTT, URMACRERAT, FE and TIBC #### [facility] [address] INR in Platelet poor plasma by Coagulation assayOrdered By: Rin Sarmiento on 09-01-2023 INR Coag (PPP) [Relative time] 1.0 {INR} [facility] Comment on above: INR Therapeutic Rang [...] [Mass/Vol] 122 ug/dL 50-[address] [facility] Iron and TIBC Profileon 08-17 % Iron Saturation 33.9 % Normal 20-50 [facility] Comment on above: Performed By: #### V [id number], BHANU, RENAL, [id number], ADDONUAPLUS, PROCRERAT, FLAKO, MG, PTH, PT, CBCNO, PTT, URMACRERAT, FE and TIBC #### [facility] [address] Iron [Mass/Vol] 122 ug/dL Normal 50-212 [facility] Comment on above: Performed By: #### V [id number], BHANU, RENAL, [id number], ADDONUAPLUS, PROCRERAT, FLAKO, MG, PTH, PT, CBCNO, PTT, URMACRERAT, FE and TIBC #### [facility] [address] Total Iron Binding Capacity 360 ug/dL Normal 255-450 [facility] Comment on above: Performed By: #### V [id number], BHANU, RENAL, [id number], ADDONUAPLUS, PROCRERAT, FLAKO, MG, PTH, PT, CBCNO, PTT, URMACRERAT, FE and TIBC #### [facility] [address] Transferrin [Mass/Vol] 257 mg/dL Normal 203-362 [facility] Comment on above: Performed By: #### V [id number], BHANU, RENAL, [id number], ADDONUAPLUS, PROCRERAT, FLAKO, MG, PTH, PT, CBCNO, PTT, URMACRERAT, FE and TIBC #### [facility] [address] Iron binding capacity [Mass/ volume] in Serum or PlasmaOrdered By: Rin Sarmiento on 09-01-2023 Iron binding capacity [Mass/Vol] 360 ug/dL 255-[address] [facility] Iron saturation [Mass Fracti on] in Serum or PlasmaOrdered By: Rin Sarmiento on 09-01-2023 Iron saturation [Mass fraction] 33.9 % 20-[address] [facility] Ketones Auto test strip (U) [Mass/Vol]Ordered By: Rin Sarmiento on 09-01-2023 Ketones (U) [Mass/Vol] Negative Negative Fi [facility] Nahun 09-01-2023 L Specimen: [id number] Received: 09/01/23 Status: MAIA Cohen Num: [id number] Spec Type: Surgical Subm Dr: Kj Urias Jr, DO Tissues: A Gross Only ([facility]) Procedures: Level 1 Gross Age/ Patient Sex Location Account Attending Physician Margie Martínez 83/F CT [id number] Rin Sarmiento MD SPEC NUM: [id number] RECD: 09/01/23 STATUS: MAIA COHEN NUM: [id number] DEMAR: 09/01/23 [facility] DR: Kj Urias Jr, DO ENTERED: 09/01/[address]: SPEC TYPE: Surgical DEPT: S ORDERED: Level 1 Gross ORDERED: Level 1 Gross Supplemental Report Addendum 1 Entered: 09/03/23 Supplemental for findings of Consultation Report from [facility]: DIAGNOSIS: -Fibrillary Glomerulopathy -Arterionephrosclerosis Note: -Please also see entire report on file for detailed description Addendum Signed (signature on file) Chris Lin MD 09/03/23 0933 Specimen: [id number] Received: 09/01/23 Status: MAIA Cohen Num: [id number] Spec Type: Surgical Subm Dr: Kj Urias Jr, DO Tissues: A Gross Only (RANDOM KIDNEY BX) Procedures: Level 1 Gross Patient: Dany Martínezguanaco Kent [id number] (Continued) Specimen: [id number] Received: 09/01/23 (Continued) Signed (signature on file) Chin-Lloyd Lin MD 09/03/23 0929 Specimen: [id number] Received: 09/01/23 Status: MAIA Cohen Num: [id number] Spec Type: Surgical Subm Dr: Kj Urias Jr, DO Tissues: A Gross Only (RANDOM KIDNEY BX) Procedures: Level 1 Gross Patient: MauricioMargie Donte [id number] (Continued) Specimen: [id number] Received: 09/01/23 (Continued) Pathological Diagnosis Right kidney random core biopsy: -3 feldman-pink needle cores to be placed in special fixation solutions and to be forwarded to [facility] for final consultation interpretation. Gross only examination Gross Description In formalin labeled right kidney tissue are three feldman-pink needle cores ranging in size from 1.4 cm to 1.9 cm long x 0.1 cm average diameter. Submitted entirely in Lewis's solution and in 10% neutral buffered formalin. EVA/LUIGI Clinical history: ANGELINA, proteinuria, hypoalbuminemia CPT Codes 26115 Specimen: [id number] Received: 09/01/23 Status: MAIA Cohen Num: [id number] Spec Type: Surgical Subm Dr: Kj Urias Jr, Tissues: A Gross Only (RANDOM KIDNEY BX) Procedures: Level 1 Gross Patient: Margie Martínez [id number] (Continued) Signed (signature on file) Chris Lin MD 09/03/23 0929 Normal [facility] Laboratory - UrinalysisOrder ed By: Rin Sarmiento on 09-01-2023 Hyaline casts LM Ql (Urine sed) 0-8 [LPF] 0-[address] [facility] Leukocytes [#/volume] correc katy for nucleated erythrocytes in Blood by Automated counOrdered By: Rin Sarmiento on 09-01-2023 WBC corrected for nucl RBC Auto (Bld) [#/Vol] 4.7 10*3/uL 3.8-11.[address] [facility] MCH Auto (RBC) [Entitic mass ]Ordered By: Rin Sarmiento on 09-01-2023 MCH (RBC) [Entitic mass] 29.3 pg 24.7-34.[address] [facility] MCHC Auto (RBC) [Mass/Vol]Or dered By: Rin Sarmiento on 09-01-2023 MCHC (RBC) [Mass/Vol] 31.9 g/dL Low 32.0-35.0 [facility] MCV Auto (RBC) [Entitic vol] Ordered By: Rin Sarmiento on 09-01-2023 MCV (RBC) [Entitic vol] 92.0 fL 80-[address] [facility] Magnesiumon 09-01-2023 Magnesium [Mass/Vol] 1.9 mg/dL Normal 1.9-2.7 [facility] Comment on above: Performed By: #### V [id number], BHANU, RENAL, [id number], ADDONUAPLUS, PROCRERAT, FLAKO, MG, PTH, PT, CBCNO, PTT, URMACRERAT, FE and TIBC #### [address] Magnesium [Mass/volume] in S adriana or PlasmaOrdered By: Rin Sarmiento on 09-01-2023 Magnesium [Mass/Vol] 1.9 mg/dL 1.9-2.7 [facility] MicroAlb Creat Ratio,Uon Albumin DL <= 20 mg/L (U) [Mass/Vol] mg/dL High 0.0-1.8 [facility] Comment on above: Performed By: #### V [id number], BHANU, RENAL, [id number], ADDONUAPLUS, PROCRERAT, FLAKO, MG, PTH, PT, CBCNO, PTT, URMACRERAT, FE and TIBC #### [address] Creatinine, Urine (Random) 52.0 mg/dL Normal [facility] Comment on above: Result Comment: No r eference range established Performed By: #### V [id number], BHANU, RENAL, [id number], ADDONUAPLUS, PROCRERAT, FLAKO, MG, PTH, PT, CBCNO, PTT, URMACRERAT, FE and TIBC #### [address] Microalbumin/Creatinin e Ratio Not performed Normal 0.0-30.0 [facility] Comment on above: Performed By: #### V [id number], BHANU, RENAL, [id number], ADDONUAPLUS, PROCRERAT, FLAKO, MG, PTH, PT, CBCNO, PTT, URMACRERAT, FE and TIBC #### [address] Microalbumin [Mass/volume] i n UrineOrdered By: Rin Sarmiento on 09-01-2023 Albumin DL <= 20 mg/L (U) [Mass/Vol] mg/dL High 0.0-1.[address] [facility] Nitrite Test strip Ql (U)Ord ered By: Rin Sarmiento on 09-01-2023 Nitrite Ql (U) Negative Negative [facility] No Panel InformationOrdered By: Rin Sarmiento on 09-01-2023 Estimated GFR (CKD-EPI) 24.043 mL/Min [facility] Creatinine Clearance (Chem 21.[address] [facility] Parathyrin.intact [Mass/volu me] in Serum or PlasmaOrdered By: Rin Sarmiento on 09-01-2023 Parathyrin.intact [Mass/Vol] 188.2 pg/mL High [facility] Parathyroid Hormone Intacton 09-01-2023 Parathyroid Hormone Intact 188.2 pg/mL High [facility] Comment on above: Result Comment: PERF ORMED BY: [place] [address] PATHOLOGIST HOSPITAL HOUSEKEEPER JEWELL ROWLEY M.D. Performed By: #### V [id number], BHANU, RENAL, [id number], ADDONUAPLUS, PROCRERAT, FLAKO, MG, PTH, PT, CBCNO, PTT, URMACRERAT, FE and TIBC #### [address] Partial Thromboplastin Timeo n 09-01-2023 aPTT Coag (Bld) [Time] 30.5 s Normal 25.1-36.5 [facility] Comment on above: Result Comment: A he matocrit value greater than 55% may lead to inaccurate results in coagulation testing. Patients having hematocrit values >55% require a special collection tube for coagulation studies. Please contact the laboratory at [phone] for redraw instructions. PERFORMED BY: [place] [address] PATHOLOGIST HOS[employer]ITAL [employer]SEK[employer] JEWELL ROWLEY M.D. Performed By: #### V [id number], BHANU, RENAL, [id number], ADDONUAPLUS, PROCRERAT, FLAKO, MG, PTH, PT, CBCNO, PTT, URMACRERAT, FE and TIBC #### [facility] [address] Phosphate [Mass/volume] in S adriana or PlasmaOrdered By: Rin Sarmiento on 09-01-2023 Phosphate [Mass/Vol] 4.2 mg/dL 2.5-4.5 [facility] Platelet mean volume Auto (B ld) [Entitic vol]Ordered By: Rin Sarmiento on 09-01-2023 Platelet mean volume (Bld) [Entitic vol] 8.1 fL 6.3-10.[address] [facility] Platelets Auto (Bld) [#/Vol] Ordered By: iRn Sarmiento on 09-01-2023 Platelets (Bld) [#/Vol] 214 10*3/uL 150-[address] [facility] Potassium [Moles/volume] in Serum or PlasmaOrdered By: Rin Sarmiento on 09-01-2023 Potassium [Moles/Vol] 4.7 mmol/L 3.5-5.1 [facility] Protein Auto test strip (U) [Mass/Vol]Ordered By: Rin Sarmiento on 09-01-2023 Protein (U) [Mass/Vol] 300 mg/dL High Negative [facility] Protein Creat Ratio Ur Rando mon 09-01-2023 Protein (U) [Mass/Vol] 199 mg/dL High 0-9 [facility] Comment on above: Performed By: #### V [id number], BHANU, RENAL, [id number], ADDONUAPLUS, PROCRERAT, FLAKO, MG, PTH, PT, CBCNO, PTT, URMACRERAT, FE and TIBC #### [facility] [address] [place] [address] [place] Urine Protein/Creatinine Ratio 3827 mg/g{Cre} High 0-200 [facility] Comment on above: Performed By: #### V [id number], BHANU, RENAL, [id number], ADDONUAPLUS, PROCRERAT, FLAKO, MG, PTH, PT, CBCNO, PTT, URMACRERAT, FE and TIBC #### [facility] [address] [place] [id number] [place] Protein [Mass/volume] in Uri neOrdered By: Rin Sarmiento on 09-01-2023 Protein (U) [Mass/Vol] 199 mg/dL High 0-9 [facility] Prothrombin Time INRon 08-31 INR Coag (PPP) [Relative time] 1.0 {INR} Normal [facility] Comment on above: Result Comment: [...] 3 - 4.5 Performed By: #### V [id number], BHANU, RENAL, [id number], ADDONUAPLUS, PROCRERAT, FLAKO, MG, PTH, PT, CBCNO, PTT, URMACRERAT, FE and TIBC #### [facility] [address] [place] [address] [facility] PT Coag (PPP) [Time] 11.4 s Normal 9.0-12.9 [facility] Comment on above: Result Comment: A he matocrit value greater than 55% may lead to inaccurate results in coagulation testing. Patients having hematocrit values >55% require a special collection tube for coagulation studies. Please contact the laboratory at [phone] for redraw instructions. Performed By: #### V [id number], BHANU, RENAL, [id number], ADDONUAPLUS, PROCRERAT, FLAKO, MG, PTH, PT, CBCNO, PTT, URMACRERAT, FE and TIBC #### [facility] [address] [place] [address] [facility] Prothrombin time (PT)Ordered By: Rin Sarmiento on 09-01-2023 PT Coag (PPP) [Time] 11.4 s 9.0-12.9 [facility] Comment on above: A hematocrit value g reater than 55% may lead to inaccurate results in coagulation testing. Patients having hematocrit values >55% require a special collection tube for coagulation studies. Please contact the laboratory at [phone] for redraw instructions. RBC Auto (Bld) [#/Vol]Ordere d By: Rin Sarmiento on 09-01-2023 RBC (Bld) [#/Vol] 2.72 10*6/uL Low 3.60-5.00 [facility] Renal Function Panelon 08-31 Albumin [Mass/Vol] 3.6 g/dL Normal 3.5-5.7 [facility] Comment on above: Performed By: #### V [id number], BAHNU, RENAL, [id number], ADDONUAPLUS, PROCRERAT, FLAKO, MG, PTH, PT, CBCNO, PTT, URMACRERAT, FE and TIBC #### [facility] [address] Anion gap [Moles/Vol] 9.2 mmol/L Normal 6.0-15.0 [facility] Comment on above: Performed By: #### V [id number], BHANU, RENAL, [id number], ADDONUAPLUS, PROCRERAT, FLAKO, MG, PTH, PT, CBCNO, PTT, URMACRERAT, FE and TIBC #### [facility] [address] Calcium [Mass/Vol] 8.9 mg/dL Normal 8.6-10.3 [facility] Comment on above: Performed By: #### V [id number], BHANU, RENAL, [id number], ADDONUAPLUS, PROCRERAT, FLAKO, MG, PTH, PT, CBCNO, PTT, URMACRERAT, FE and TIBC #### [facility] [address] Chloride [Moles/Vol] 107 mmol/L Normal 98-107 [facility] Comment on above: Performed By: #### V [id number], BHANU, RENAL, [id number], ADDONUAPLUS, PROCRERAT, FLAKO, MG, PTH, PT, CBCNO, PTT, URMACRERAT, FE and TIBC #### [facility] [address] CO2 [Moles/Vol] 30.5 mmol/L Normal 21.0-31.0 [facility] Comment on above: Performed By: #### V [id number], BHANU, RENAL, [id number], ADDONUAPLUS, PROCRERAT, FLAKO, MG, PTH, PT, CBCNO, PTT, URMACRERAT, FE and TIBC #### [facility] [address] Creatinine [Mass/Vol] 2.02 mg/dL High 0.60-1.20 [facility] Comment on above: Performed By: #### V [id number], BHANU, RENAL, [id number], ADDONUAPLUS, PROCRERAT, FLAKO, MG, PTH, PT, CBCNO, PTT, URMACRERAT, FE and TIBC #### [address] Creatinine Clr Calc Pharmacy 21.55 Normal [facility] Comment on above: Performed By: #### V [id number], BHANU, RENAL, [id number], ADDONUAPLUS, PROCRERAT, FLAKO, MG, PTH, PT, CBCNO, PTT, URMACRERAT, FE and TIBC #### [facility] [address] GFR/1.73 sq M.predicted MDRD (S/P/Bld) [Vol rate/Area] 24.043 mL/min/{1.73_m2} Normal [facility] Comment on above: Performed By: #### V [id number], BHANU, RENAL, [id number], ADDONUAPLUS, PROCRERAT, FLAKO, MG, PTH, PT, CBCNO, PTT, URMACRERAT, FE and TIBC #### [address] Glucose [Mass/Vol] 121 mg/dL High 70-100 [facility] Comment on above: Result Comment: [place] Glucose Reference Range is dependent on time and content of last meal. Glucose of more than 200 mg/dL in a nonstressed, ambulatory subject supports the diagnosis of Diabetes Mellitus. ADA recommended reference range Performed By: #### V [id number], BHANU, RENAL, [id number], ADDONUAPLUS, PROCRERAT, FLAKO, MG, PTH, PT, CBCNO, PTT, URMACRERAT, FE and TIBC #### [address] Phosphate [Mass/Vol] 4.2 mg/dL Normal 2.5-4.5 [facility] Comment on above: Performed By: #### V [id number], BHANU, RENAL, [id number], ADDONUAPLUS, PROCRERAT, FLAKO, MG, PTH, PT, CBCNO, PTT, URMACRERAT, FE and TIBC #### [address] Potassium [Moles/Vol] 4.7 mmol/L Normal 3.5-5.1 [facility] Comment on above: Performed By: #### V [id number], BHANU, RENAL, [id number], ADDONUAPLUS, PROCRERAT, FLAKO, MG, PTH, PT, CBCNO, PTT, URMACRERAT, FE and TIBC #### [address] Sodium [Moles/Vol] 142 mmol/L Normal 136-145 [facility] Comment on above: Performed By: #### V [id number], BHANU, RENAL, [id number], ADDONUAPLUS, PROCRERAT, FLAKO, MG, PTH, PT, CBCNO, PTT, URMACRERAT, FE and TIBC #### [address] Urea nitrogen [Mass/Vol] 32 mg/dL High 7-25 [facility] Comment on above: Performed By: #### V [id number], BHANU, RENAL, [id number], ADDONUAPLUS, PROCRERAT, FLAKO, MG, PTH, PT, CBCNO, PTT, URMACRERAT, FE and TIBC #### [address] Serum or plasma anion gap de terminationOrdered By: Rin Sarmiento on 09-01-2023 Anion gap [Moles/Vol] 9.2 mmol/L 6.0-15.0 [facility] Sodium [Moles/volume] in Ser um or PlasmaOrdered By: Rin Sarmiento on 09-01-2023 Sodium [Moles/Vol] 142 mmol/L 136-145 [facility] Sodium [Moles/volume] in Uri neOrdered By: Rin Sarmiento on 09-01-2023 Sodium (U) [Moles/Vol] 137 mmol/L [facility] Comment on above: No reference range e stablished Sodium, Urine (Random)on Sodium (U) [Moles/Vol] 137 mmol/L Normal Th e [facility] Comment on above: Result Comment: No r eference range established PERFORMED BY: [place] [address] PATHOLOGIST HOSPITAL HOUSEKEEPER JEWELL ROWLEY M.D. Performed By: #### V [id number], BHANU, RENAL, [id number], ADDONUAPLUS, PROCRERAT, FLAKO, MG, PTH, PT, CBCNO, PTT, URMACRERAT, FE and TIBC #### [address] Specific gravity Auto test s trip (U) [Rel density]Ordered By: Rin Sarimento on 09-01-2023 Specific gravity (U) [Rel density] 1.015 1.001-1.[address] [facility] Squamous epithelial cells de tection in urine sediment by light microscopyOrdered By: Rin Sarmiento on 09-01-2023 Epithelial cells.squamous LM Ql (Urine sed) 0-1 [HPF] 0-[address] [facility] Transferrin [Mass/volume] in Serum or PlasmaOrdered By: Rin Sarmiento on 09-01-2023 Transferrin [Mass/Vol] 257 mg/dL 203-362 [facility] Urea nitrogen [Mass/volume] in Serum or PlasmaOrdered By: Rin Sarmiento on 09-01-2023 Urea nitrogen [Mass/Vol] 32 mg/dL High 7-[address] [facility] Urine bacteria detection by automated methodOrdered By: Rin Sarmiento on 09-01-2023 Bacteria Auto Ql (U) None seen None Seen [facility] Urine clarity by refractomet ry automatedOrdered By: Rin Sarmiento on 09-01-2023 Clarity Refractometry automated (U) Cloudy Abnormal Clear [facility] Urine glucose measurement by automated test strip (mass/volume)Ordered By: Rin Sarmiento on 09-01-2023 Glucose Auto test strip (U) [Mass/Vol] Normal mg/dL Normal [facility] Urine hemoglobin detection b y automated test stripOrdered By: Rin Sarmiento on 09-01-2023 Hemoglobin Auto test strip Ql (U) 1+ High Negative [facility] Urine leukocyte esterase det ection by automated test stripOrdered By: Rin Sarmiento on 09-01-2023 Leukocyte esterase Auto test strip Ql (U) Negative Negative [facility] Urine microalbumin/creatinin e mass ratioOrdered By: Rin Sarmiento on 09-01-2023 Albumin/Creatinine DL <= 20 mg/L (U) [Mass ratio] TNP [facility] Comment on above: Test not performed Urine protein/creatinine rat ioOrdered By: Rin Sarmiento on 09-01-2023 Protein/Creatinine (U) [Ratio] 3827 mg/g{Cre} High 0-[address] [facility] Urobilinogen Auto test strip (U) [Mass/Vol]Ordered By: Rin Sarmiento on 09-01-2023 Urobilinogen (U) [Mass/Vol] Normal mg/dL Normal [facility] Vit. B12/Folate Profileon Cobalamin (Vitamin B12) [Mass/Vol] 862 pg/mL Normal 180-914 [facility] Comment on above: Performed By: #### V [id number], BHANU, RENAL, [id number], ADDONUAPLUS, PROCRERAT, FLAKO, MG, PTH, PT, CBCNO, PTT, URMACRERAT, FE and TIBC #### [facility] [address] Folate 16.5 ng/mL Normal >5.9 [facility] Comment on above: Result Comment: Arlen te reference range: >5.9 ng/ml The WHO technical consultation on folate and vitamin b12 deficiencies has determined that folate concentrations less than 4 ng/ml are considered deficient. Performed By: #### V [id number], BHANU, RENAL, [id number], ADDONUAPLUS, PROCRERAT, FLAKO, MG, PTH, PT, CBCNO, PTT, URMACRERAT, FE and TIBC #### [facility] [address] [place] [id number] [facility] Vitamin B12 ser/plasOrdered By: Rin Sarmiento on 09-01-2023 Cobalamin (Vitamin B12) [Mass/Vol] 862 pg/mL 180-[address] [facility] Vitamin D 25 Hydroxy Totalon 09-01-2023 Vitamin D 25 Hydroxy Total 18.3 ng/mL Low 30-100 [facility] Comment on above: Result Comment: YULY MIN D STATUS 25(OH)VITAMIN D RANGE (ng/mL) Deficient <20 Insufficient 20 to <30 Sufficient 30 to 100 Reference: Jacoby MF,Rell NC, Xochitl WILLIAMSON, et al. Evaluation,treatment, and prevention of vitamin D deficiency; an Endocrine Society clinical practice guideline. JCEM. 2010; 96(7):1911-30. PERFORMED BY: [place] [address] PATHOLOGIST HOSPITAL HOUSEKEEPER JEWELL ROWLEY M.D. Performed By: #### V [id number], BHANU, RENAL, [id number], ADDONUAPLUS, PROCRERAT, FLAKO, MG, PTH, PT, CBCNO, PTT, URMACRERAT, FE and TIBC #### [facility] [address] [place], [place] [id number] [facility] Vitamin D+Metabolites [Mass/ volume] in Serum or PlasmaOrdered By: Rin Sarmiento on 09-01-2023 Vitamin D+Metabolites [Mass/Vol] 18.3 ng/mL Low 30-[address] [facility] Comment on above: VITAMIN D STATUS 25( [place])VITAMIN D RANGE (ng/mL) Deficient <20 Insufficient 20 to <30Sufficient 30 to 100Reference: Jacoby MF,Rell NC, Xochitl WILLIAMSON, et al. Evaluation,treatment, and prevention of vitamin D deficiency; an Endocrine Society clinical practice guideline. JCEM. 2010; 96(7):1911-30. pH Auto test strip (U)Ordere d By: Rin Sarmiento on 09-01-2023 pH (U) 7.0 [pH] 5.0-9.[address] [facility] POCT Protime / INRon 024 INR Coag (PPP) [Relative time] 2.2 {INR} Abnormal 0.8 - 1.2 Bi[facility] Interpretation and review of laboratory results Abnormal [facility] HbA1c HPLC (Bld) [Mass fract ion]on 08-20-2023 HbA1c (Bld) [Mass fraction] 5.7 % [facility] No Panel Informationon 08-19 Bedside Glucose [address] [facility] No Panel Informationon 08-04 Miscellaneous Test COMMENT . [facility] Comment on above: Test Ordered: [id number] Prot Electro+Interp, 24-Hr UrProtein,Total,Urine 132.1 mg/dL CB Reference Range: Not Estab.Prot,24hr calculated 2741 [H ] mg/24 hr CB Reference Range: 30-150Albumin, U 66.3 % CB Reference Range: .Hycyw-5-Lidcskra, U 7.5 % CB Reference Range: .Bsdbk-7-Qiwkalfl, U 10.6 % CB Reference Range: .Beta Globulin, U 11.9 % CB Reference Range: .Gamma Globulin, U 3.7 % CB Reference Range: .M-Tr, % Note: % CB Not Observed Reference Range: Not ObservedM-Tr, mg/24 hr [employer]OL[employer] Reference Range: .Please note: Comment CB Reference Range: .Protein electrophoresis scan will follow via computer,mail, or subscription agent delivery.P E Interpretation, U Comment CB Reference Range: .The urine protein electrophoresis pattern reflects thepresence of specific higher molecular mass proteins withmoderate proteinuria. This pattern may be characterized asrepresenting a severe selective glomerular nephropathyindicating increased glomerular permeability. Monoclonalprotein is not apparent.Performed at: [place] [id number] Director: Deshaun Hunter PhD, Phone: [phone] Activated partial thrombopla stin time (aPTT) in platelet poor plasma by coagulation aon 08-01-2023 aPTT Coag (PPP) [Time] 38.6 s 22.3-36.2 [facility] Atypical perinuclear antineu trophil cytoplasmic antibodies measurementon 08-01-2023 Neutrophil cytoplasmic Ab.perinuclear.atypica l IF (S) [Titer] <1:20 titer Neg:<1:[address] [facility] Comment on above: The atypical pANCA p attern has been observed in asignificant percentage of patients with ulcerative colitis,primary sclerosing cholangitis and autoimmune hepatitis. Automated urine specific gra vity by refractometryon 08-01-2023 Specific gravity Refractometry automated (U) [Rel density] 1.020 1.005-1.[address] [facility] Bilirubin Auto test strip (U ) [Mass/Vol]on 08-01-2023 Bilirubin (U) [Mass/Vol] Negative NEGATIVE [facility] Cefuroxime free [Mass/Vol]on 08-01-2023 Anti-Nuclear Antibody Profile Negative Negative [facility] Comment on above: Performed at: [employer] [id number] [place], [place] [id number] Director: Deshaun Hunter PhD, Phone: [phone] Performed at: [employer] [id number] [place], [place] [id number] Director: Deshaun Hunter PhD, Phone: [phone] Color Auto (U)on 08-01-2023 Color (U) LT. YELLOW YELLOW [facility] Erythrocyte distribution wid th Auto (RBC) [Ratio]on 08-01-2023 Erythrocyte distribution width (RBC) [Ratio] 13.1 % 11.0-15.[address] [facility] Estimated glomerular filtrat ion rate (GFR) non- Americanon 08-01-2023 GFR/1.73 sq M.predicted among non-blacks MDRD (S/P/Bld) [Vol rate/Area] 27 mL/min/{1.73_m2} >=[address] [facility] Globulin Calc (S) [Mass/Vol] on 08-01-2023 Globulin (S) [Mass/Vol] 3.3 g/dL [facility] Glomerular basement membrane Ab [Units/volume] in Serum by Immunoassayon 08-01-2023 Glomerular basement membrane Ab IA Qn (S) <0.2 units 0.0-0.[address] [facility] Comment on above: Performed at: [employer] [address] [id number] Director: Jhon Roberts MD, Phone: [phone] at: [employer] [address] [id number] Director: Deshaun Hunter PhD, Phone: [phone] HBV surface Ag IA Qlon 07-31 Hepatitis B Surface Antigen Negative Negative [facility] Comment on above: Performed at: [employer] [address] [id number] Director: Deshaun Hunter PhD, Phone: [phone] Performed at: [employer] [address] [id number] Director: Deshaun Hunter PhD, Phone: [phone] Hematocrit Auto (Bld) [Volum e fraction]on 08-01-2023 Hematocrit (Bld) [Volume fraction] 27.0 % 36.0-48.[address] [facility] Hemoglobin [Mass/volume] in Bloodon 08-01-2023 Hemoglobin (Bld) [Mass/Vol] 7.8 g/dL 12.0-16.[address] [facility] INR in Platelet poor plasma by Coagulation assayon 08-01-2023 INR Coag (PPP) [Relative time] 2.43 {INR} [facility] Comment on above: DESIRED INR:2.0-3.0 CONDITIONS NOT LISTED BELOW2.5-3.5 FOR PROSTHETIC HEART VALVE REPLACEMENT2.5-3.5 RECURRENT THROMBOSIS Immunofixation for Urineon 0 08-01-2023 Interpretation Immunofixation (U) [Interp] Comment . [facility] Comment on above: No monoclonality det ected.Performed at: [employer] [id number] Director: Deshaun Hunter PhD, Phone: [phone] Iron binding capacity [Mass/ volume] in Serum or Plasmaon 08-01-2023 Iron binding capacity [Mass/Vol] 270.0 ug/dL 250.0-450. [address] [facility] Iron saturation [Mass Fracti on] in Serum or Plasmaon 08-01-2023 Iron saturation [Mass fraction] 14.8 % [facility] Ketones Auto test strip (U) [Mass/Vol]on 08-01-2023 Ketones (U) [Mass/Vol] Negative NEGATIVE Fi [facility] Laboratory - Chemistry and C hemistry - challengeon 08-01-2023 Albumin [Mass/Vol] 2.7 g/dL 3.4-5.0 [facility] ALP [Catalytic activity/Vol] 50 U/L 46-[address] [facility] ALT [Catalytic activity/Vol] 18 U/L 14-[address] [facility] AST [Catalytic activity/Vol] 12 U/L 15-[address] [facility] Bilirubin [Mass/Vol] 0.2 mg/dL 0.2-1.0 [facility] [facility] Calcium [Mass/Vol] 8.8 mg/dL 8.5-10.1 [facility] Chloride [Moles/Vol] 105 mmol/L 98-107 [facility] CO2 [Moles/Vol] 32.1 mmol/L 21.0-32.0 [facility] Cobalamin (Vitamin B12) [Mass/Vol] 603.0 pg/mL 193.0-986. [address] [facility] Creatinine [Mass/Vol] 1.80 mg/dL 0.55-1.02 [facility] Ferritin [Mass/Vol] 32.0 ng/mL 8.0-252.0 [facility] GFR/1.73 sq M.predicted MDRD (S/P/Bld) [Vol rate/Area] 33 mL/min/{1.73_m2} >=[address] [facility] Glucose [Mass/Vol] 112 mg/dL 74-106 [facility] Iron [Mass/Vol] 40.0 ug/dL 50.0-170.[address] [facility] Magnesium [Mass/Vol] 1.9 mg/dL 1.8-2.4 [facility] Potassium [Moles/Vol] 4.3 mmol/L 3.5-5.1 [facility] Protein [Mass/Vol] 6.0 g/dL 6.4-8.2 [facility] Sodium [Moles/Vol] 145 mmol/L 136-145 [facility] Urea nitrogen [Mass/Vol] 33.0 mg/dL 7.0-18.[address] [facility] Urea nitrogen/Creatinine [Mass ratio] 18.3 mg/mg [facility] Laboratory - Urinalysison Protein (U) [Mass/Vol] 181.1 mg/dL <=11.9 [facility] Leukocytes [#/volume] correc katy for nucleated erythrocytes in Blood by Automated counon 08-01-2023 WBC corrected for nucl RBC Auto (Bld) [#/Vol] 6.4 10 3/uL 4.0-11.[address] [facility] MCH Auto (RBC) [Entitic mass ]on 08-01-2023 MCH (RBC) [Entitic mass] 29.2 pg 26.7-34.[address] [facility] MCHC Auto (RBC) [Mass/Vol]on 08-01-2023 MCHC (RBC) [Mass/Vol] 28.9 g/dL 29.9-35.2 [facility] MCV Auto (RBC) [Entitic vol] on 08-01-2023 MCV (RBC) [Entitic vol] 101.1 fL 81.0-99.[address] [facility] Myeloperoxidase Ab [Units/vo lume] in Serum by Immunoassayon 08-01-2023 Myeloperoxidase Ab IA Qn (S) <0.2 units 0.0-0.[address] [facility] No Panel Informationon 07-31 25-Hydroxy Vitamin D Total 16.6 ng/mL [facility] Comment on above: <20 ng/mL Vit D defi cient20-<30 ng/mL Vit D [id number] ng/mL Vit D sufficient>100 ng/mL Potential Toxicity Folate 13.00 ng/mL 8.60-58.[address] [facility] Miscellaneous Test COMMENT . [facility] Comment on above: Test Ordered: [id number] Cryoglobulin, Ql, Serum, RflxCryoglobulin, Ql, Serum, Rflx Comment Reference Range: None detectedNone Detected at 72 hoursThis test was developed and its performance characteristicsdetermined by [employer]. It has not been cleared orapproved by the Food and Drug Administration.Performed at: - [facility] [address] [id number] Director: Deshaun Hunter PhD, Phone: [phone] Parathyroid Hormone (Intact) 60 pg/mL [facility] Comment on above: Performed at: - [facility] [address] [id number] Director: Deshaun Hunter PhD, Phone: [phone] Perinuclear ANCA (p-ANCA) Antibody <1:20 titer Neg:<1:[address] [facility] Comment on above: The presence of posi tive fluorescence exhibiting P-ANCA orC-ANCA patterns alone is not specific for the diagnosis ofWegener's Granulomatosis (WG) or microscopic polyangiitis.Decisions about treatment should not be based solely onANCA IFA results. The [employer] ANCA Group Consensusrecommends follow up testing of positive sera with both MA-3 and MPO-ANCA enzyme immunoassays. As many as 5% serumsamples are positive only by EIA. Ref. AM J Clin [id number];111:507-513. Phosphorus Level 3.8 mg/dL 2.6-4.7 [facility] Urine Random Creatinine 27.68 mg/dL 20.00-300. [address] [facility] Platelet mean volume Auto (B ld) [Entitic vol]on 08-01-2023 Platelet mean volume (Bld) [Entitic vol] 10.5 fL 9.5-13.[address] [facility] Platelets Auto (Bld) [#/Vol] on 08-01-2023 Platelets (Bld) [#/Vol] 227 10 3/uL 150-[address] [facility] Protein Auto test strip (U) [Mass/Vol]on 08-01-2023 Protein (U) [Mass/Vol] 100 mg/dL NEG/TRACE Fi [facility] Proteinase 3 Ab [Units/volum e] in Serum by Immunoassayon 08-01-2023 Proteinase 3 Ab IA Qn (S) <0.2 units 0.0-0.[address] [facility] Prothrombin time (PT)on 07-17 PT Coag (PPP) [Time] 24.5 s 9.0-11.6 [facility] RBC Auto (Bld) [#/Vol]on RBC (Bld) [#/Vol] 2.67 10 6/uL 4.20-5.40 [facility] Serum classic neutrophil cyt oplasmic antibody titer by immunofluorescenceon 08-01-2023 Neutrophil cytoplasmic Ab.classic IF (S) [Titer] <1:20 titer Neg:<1:[address] [facility] Serum or plasma albumin/glob ulin mass ratioon 08-01-2023 Albumin/Globulin [Mass ratio] 0.8 {ratio} [facility] Serum or plasma anion gap de terminationon 08-01-2023 Anion gap [Moles/Vol] 12.2 mmol/L Fi [facility] Serum or plasma complement C 3 measurement (mass/volume)on 08-01-2023 Complement C3 [Mass/Vol] 140 mg/dL 82-[address] [facility] Serum or plasma complement C 4 measurement (mass/volume)on 08-01-2023 Complement C4 [Mass/Vol] 30 mg/dL 12-[address] [facility] Comment on above: Performed at: [address] [id number] Director: Deshaun Hunter PhD, Phone: [phone] Specific gravity Auto test s trip (U) [Rel density]on 08-01-2023 Specific gravity (U) [Rel density] CLEAR CLEAR [facility] Urine glucose measurement by test strip (mass/volume)on 08-01-2023 Glucose Test strip (U) [Mass/Vol] Negative NEGATIVE [facility] Urine hemoglobin detection b y automated test stripon 08-01-2023 Hemoglobin Auto test strip Ql (U) LARGE NEGATIVE [facility] Urine nitrite detection by a utomated test stripon 08-01-2023 Nitrite Auto test strip Ql (U) Negative NEGATIVE [facility] Urine protein/creatinine rat ioon 08-01-2023 Protein/Creatinine (U) [Ratio] 6.[address] [facility] Urobilinogen Auto test strip (U) [Mass/Vol]on 08-01-2023 Urobilinogen Qn (U) 0.2 {Radha'U}/dL 0.2-1.[address] [facility] pH Auto test strip (U)on pH (U) 7.0 [pH] 5.0-9.[address] [facility] POCT EKGon 07-30-2023 [facility] POCT Protime / INRon 024 INR Coag (PPP) [Relative time] 2.3 {INR} Abnormal 0.8 - 1.2 [facility] System Interpretation and review of laboratory results Abnormal [facility] POCT Protime / INRon 024 INR Coag (PPP) [Relative time] 2.2 {INR} Abnormal 0.8 - 1.2 [facility] System Interpretation and review of laboratory results Abnormal [facility] POCT Protime / INRon 07-10- 024 INR Coag (PPP) [Relative time] 1.4 {INR} Abnormal 0.8 - 1.2 [facility] System Interpretation and review of laboratory results Abnormal [facility] POCT Protime / INRon 06-26-2 024 INR Coag (PPP) [Relative time] 1.8 {INR} Abnormal 0.8 - 1.2 [facility] System Interpretation and review of laboratory results Abnormal [facility] POCT Protime / INRon 06-17-2 024 INR Coag (PPP) [Relative time] 3.2 {INR} Abnormal 0.8 - 1.2 [facility] System Interpretation and review of laboratory results Abnormal [facility] POCT Protime / INRon 06-10- 024 INR Coag (PPP) [Relative time] 2.3 {INR} Abnormal 0.8 - 1.2 [facility] System Interpretation and review of laboratory results Abnormal [facility] POCT Protime / INRon 024 INR Coag (PPP) [Relative time] 3.5 {INR} Abnormal 0.8 - 1.2 [facility] Interpretation and review of laboratory results Abnormal [facility] BASIC METABOLIC PANLon 06-02 Anion gap [Moles/Vol] 9 mmol/L Normal 5-15 [facility] Comment on above: Performed By: #### L IVR, BMP, THYR #### [facility] ([id number]) [address], [address] [place] [address] Calcium [Mass/Vol] 9.0 mg/dL Normal 8.5-10.5 [facility] Comment on above: Performed By: #### L IVR, BMP, THYR #### [facility] ([id number]) [address], [address] [place] [address] Chloride [Moles/Vol] 106 mmol/L Normal 98-109 [facility] Comment on above: Performed By: #### L IVR, BMP, THYR #### [facility] ([id number]) [address], [address] [place] [address] CO2 [Moles/Vol] 30 mmol/L Normal 22-32 [facility] Comment on above: Performed By: #### L IVR, BMP, THYR #### [facility] ([id number]) [address], [address] [place] [address] Creatinine [Mass/Vol] 1.58 mg/dL High 0.40-1.00 [facility] Comment on above: Result Comment: METH OD TRACEABLE TO IDMS STANDARD Performed By: #### L IVR, BMP, THYR #### [facility] ([id number]) [address], [address] [place] [address] GFR/1.73 sq M.predicted among non-blacks MDRD (S/P/Bld) [Vol rate/Area] 32 mL/min/{1.73_m2} Low >59 [facility] Comment on above: Result Comment: Reported eGFR is based on the CKD-EPI 2020 equation that does not use a race coefficient. Performed By: #### L IVR, BMP, THYR #### [facility] ([id number]) [address], [address] [place] [address] Glucose [Mass/Vol] 125 mg/dL High 65-99 [facility] Comment on above: Performed By: #### L IVR, BMP, THYR #### [facility] ([id number]) [address] [address] [place] [address] Potassium [Moles/Vol] 4.3 mmol/L Normal 3.5-5.0 [facility] Comment on above: Performed By: #### L IVR, BMP, THYR #### [facility] ([id number]) [address], [address] [place] [address] Sodium [Moles/Vol] 145 mmol/L Normal 134-146 [facility] Comment on above: Performed By: #### L IVR, BMP, THYR #### [facility] ([id number]) [address] [place] [address] Urea nitrogen [Mass/Vol] 28 mg/dL High 5-27 [facility] Comment on above: Performed By: #### L IVR, BMP, THYR #### [facility] ([id number]) [address] [place] [address] LIVER PANELon 06-02-2023 Albumin [Mass/Vol] 3.3 g/dL Normal 3.2-5.3 [facility] Comment on above: Performed By: #### L IVR, BMP, THYR #### [facility] ([id number]) [address], [address] [place] [address] ALP [Catalytic activity/Vol] 40 U/L Normal 39-130 [facility] Comment on above: Performed By: #### L IVR, BMP, THYR #### [facility] ([id number]) [address], [address] [place] [address] ALT [Catalytic activity/Vol] 10 U/L Normal 0-31 [facility] Comment on above: Performed By: #### L IVR, BMP, THYR #### [facility] ([id number]) [address] [place] [address] AST [Catalytic activity/Vol] 10 U/L Normal 0-41 [facility] Comment on above: Performed By: #### L IVR, BMP, THYR #### [facility] ([id number]) [address], [address] [place] [address] Bilirubin [Mass/Vol] 0.2 mg/dL Low 0.3-1.2 [facility] Comment on above: Performed By: #### L IVR, BMP, THYR #### [facility] ([id number]) [address] [place] [address] Bilirubin.direct [Mass/Vol] 0.0 mg/dL Normal 0.0-0.4 [facility] Comment on above: Performed By: #### L IVR, BMP, THYR #### [facility] ([id number]) [address], [address] [place] [address] Protein [Mass/Vol] 5.6 g/dL Low 6.0-8.0 [facility] Comment on above: Performed By: #### L IVR, BMP, THYR #### [facility] ([id number]) [address], [address] [place] [address] POCT Protime / INRon 024 INR Coag (PPP) [Relative time] 4.7 {INR} Abnormal 0.8 - 1.2 [facility] Interpretation and review of laboratory results Abnormal [facility] THYROID PROFILEon 06-02-2023 Free T4 [Mass/Vol] 0.96 ng/dL Normal 0.61-1.60 [facility] Comment on above: Performed By: #### L IVR, BMP, THYR #### [facility] ([id number]) [address] [place] [address] TSH 7.63 uIU/mL High 0.49-4.67 [facility] Comment on above: Performed By: #### L IVR, BMP, THYR #### [facility] ([id number]) [address] [place] [address] POCT EKGOrdered By: Latia Garcia on 05-28-2023 [facility] POCT Protime / INRon 024 INR Coag (PPP) [Relative time] 3.3 {INR} Abnormal 0.8 - 1.2 [facility] Interpretation and review of laboratory results Abnormal [facility] POCT Protime / INRon 024 INR Coag (PPP) [Relative time] 4.6 {INR} Abnormal 0.8 - 1.2 [facility] Interpretation and review of laboratory results Abnormal [facility] A1C HEMOGLOBINon 02-19-2023 HbA1c (Bld) [Mass fraction] 5.8 % [employer] Other Glucose - FINGER STICKon Glucose [Mass/Vol] 174 mg/dL [employer] Other HbA1c (Bld) [Mass fraction]o n 02-19-2023 A1C HEMOGLOBIN [employer] Other PROF 14(COMP METB)on 023 Albumin [Mass/Vol] 2.9 g/dL Critically low 3.4-5.0 Th e [facility] Comment on above: Performed By: #### C MP #### [facility] [address] [place] [address] Dr. Lamar Lin Albumin/Globulin [Mass ratio] 0.8 {ratio} Normal [facility] Comment on above: Performed By: #### C MP #### [facility] [address] [place] [address] Dr. Lamar Lin ALP [Catalytic activity/Vol] 70 U/L Normal 46-116 [facility] Comment on above: Performed By: #### C MP #### [facility] [address] [place] [address] Dr. Lamar Lin ALT [Catalytic activity/Vol] 14 U/L Normal 14-59 [facility] Comment on above: Performed By: #### C MP #### [facility] [address] [place] [address] Dr. Lamar Lin Anion gap [Moles/Vol] 10.5 mmol/L Normal [facility] Comment on above: Performed By: #### C MP #### [facility] [address] [place] [address] Dr. Lamar Lin AST [Catalytic activity/Vol] 10 U/L Critically low 15-37 [facility] Comment on above: Performed By: #### C MP #### [facility] [address] [place] [address] Dr. Lamar Lin Bilirubin [Mass/Vol] 0.2 mg/dL Normal 0.2-1.0 [facility] Comment on above: Performed By: #### C MP #### [facility] [address] [place] [address] Dr. Lamar Lin Calcium [Mass/Vol] 9.4 mg/dL Normal 8.5-10.1 [facility] Comment on above: Performed By: #### C MP #### [facility] [address] [place] [address] Dr. Lamar Lin Chloride [Moles/Vol] 104 mmol/L Normal 98-107 [facility] Comment on above: Performed By: #### C MP #### [facility] [address] [place] [address] Dr. Lamar Lin CO2 [Moles/Vol] 34.9 mmol/L Critically high 21.0-32.0 [facility] Comment on above: Performed By: #### C MP #### [facility] [address] [address] [address] Lamar Lin Creatinine [Mass/Vol] 0.96 mg/dL Normal 0.55-1.02 [facility] Comment on above: Performed By: #### C MP #### [facility] [address] [address] [address] Lamar Lin EGFR-AF SRI LANKAN >60 Normal >=60 [facility] Comment on above: Performed By: #### C MP #### [facility] [address] [address] [address] Lamar Lin EGFR-NON AF SRI LANKAN 56 mL/min/1.73m2 Critically low >=60 [facility] Comment on above: Performed By: #### C MP #### [facility] [address] [address] [address] Lamar Lin Globulin (S) [Mass/Vol] 3.7 g/dL Normal [facility] Comment on above: Performed By: #### C MP #### [facility] [address] [address] [address] Lamar Lin Glucose [Mass/Vol] 132 mg/dL Critically high 74-106 [facility] Comment on above: Performed By: #### C MP #### [facility] [address] [address] [address] Lamar Lin Potassium [Moles/Vol] 4.4 mmol/L Normal 3.5-5.1 [facility] Comment on above: Performed By: #### C MP #### [facility] [address] [address] [address] Lamar Lin Protein [Mass/Vol] 6.6 g/dL Normal 6.4-8.2 [facility] Comment on above: Performed By: #### C MP #### [facility] [address] [address] [address] Lamar Lin Sodium [Moles/Vol] 145 mmol/L Normal 136-145 [facility] Comment on above: Performed By: #### C MP #### [facility] [address] [place], [place] [address] Dr. Lamar Lin Urea nitrogen [Mass/Vol] 28.0 mg/dL Critically high 7.0-18.0 [facility] Comment on above: Performed By: #### C MP #### [facility] [address] [place], [place] [address] Dr. Lamar Lin Urea nitrogen/Creatinine [Mass ratio] 29.2 mg/mg Normal [facility] Comment on above: Performed By: #### C MP #### [facility] [address] [place], [place] [address] Dr. Lamar Lin A1C with Estimated Average G karintom 08-19-2022 HbA1c (Bld) [Mass fraction] 6.500 % High 4.3-5.6 % [employer] Other HbA1c (Bld) [Mass fraction] 140 mg/dL [employer] Other Comprehensive Metabolic Pane [facility] 08-19-2022 Albumin [Mass/Vol] 3.229819 g/dL Normal 3.5-5.7 g/dL [employer] Other Albumin/Globulin [Mass ratio] 1.7 {ratio} [employer] Other ALP [Catalytic activity/Vol] 56 U/L Normal 34-104 U/L [employer] Other ALT [Catalytic activity/Vol] 14 U/L Normal 7-52 U/L [employer] Other AST [Catalytic activity/Vol] 15 U/L Normal 13-39 U/L [employer] Other Bilirubin [Mass/Vol] 0.4429947 mg/dL Low 0.3- 1.0 mg/dL [employer] Other Calcium [Mass/Vol] 9.9442722 mg/dL Normal 8.6-10 .3 mg/dL [employer] Other Chloride [Moles/Vol] 103 mmol/L Normal 98-107 mmol/L [employer] Other CO2 [Moles/Vol] 34.54259628 mmol/L High 21.0-3 1.0 mmol/L [employer] Other Creatinine [Mass/Vol] 0.56569864 mg/dL Normal 0. 60-1.20 mg/dL [employer] Other GFR/1.73 sq M.predicted MDRD (S/P/Bld) [Vol rate/Area] mL/min/{1.73_m2} [employer] Other Glucose [Mass/Vol] 156 mg/dL High 70-100 mg/dL [employer] Other Potassium [Moles/Vol] 4.14973883 mmol/L Normal 3 .5-5.1 mmol/L [employer] Other Protein [Mass/Vol] 5.823821 g/dL Low 6.4-8.9 g/dL [employer] Other Sodium [Moles/Vol] 144 mmol/L Normal 136-145 mmol/L [employer] Other Urea nitrogen [Mass/Vol] 24 mg/dL Normal 7-25 mg/dL [employer] Other Comprehensive Metabolic Panel 2.1 g/dL [employer] Other Glucose - FINGER STICKon Glucose [Mass/Vol] 205 mg/dL [employer] Other Lipid Panelon 08-19-2022 Cholesterol [Mass/Vol] 172 mg/dL Normal 140-2 00 mg/dL [employer] Other Cholesterol in HDL [Mass/Vol] 33 mg/dL Low 35-85 mg/dL [employer] Other Cholesterol in LDL Elph Qn 95 mg/dL Normal 0-100 mg/dL [employer] Other Cholesterol.total/Chol esterol in HDL [Mass ratio] 5.2 {ratio} <5.0 [facility] Other Lipid Panel 219 mg/dL High 0-149 mg/dL [employer] Other Lipid Panel 43 mg/dL [facility] Other [employer] Creat Ratio,Uon Albumin DL <= 20 mg/L (U) [Mass/Vol] mg/dL High 0.0-1.8 [employer] Other Albumin/Creatinine DL <= 20 mg/L (U) [Mass ratio] TNP 0.0-30.0 [employer] Other Creatinine (U) [Mass/Vol] 52.4647857 mg/dL [employer] Other Vitamin B12on 08-19-2022 Cobalamin (Vitamin B12) [Mass/Vol] 345 pg/mL Normal 180-914 pg/mL [employer] Other A1C HEMOGLOBINon 02-27-2022 HbA1c (Bld) [Mass fraction] 6.1 % [employer] Other Glucose - FINGER STICKon Glucose [Mass/Vol] 159 mg/dL [facility] Other HbA1c (Bld) [Mass fraction]o n 02-27-[address] [facility] Other FREE T4on 10-30-2021 Free T4 [Mass/Vol] 1.11 ng/dL Normal 0.76-1.46 [facility] Comment on above: Performed By: #### F T4 #### [facility] [address] [place] [address] Dr. Lamar Lin T4on 10-30-2021 T4 [Mass/Vol] 8.30 ug/dL Normal 4.80-13.90 [facility] Comment on above: Performed By: #### T 4, TSH #### [facility] [address] [address] [address] Lamar Lin TSHon 10-30-2021 TSH 2.475 uIU/mL Normal 0.358-3.74 0 [facility] Comment on above: Performed By: #### T 4, TSH #### [facility] [address] [address] [address] Lamar Lin Glucoseon 05-23-2021 Glucose [Mass/Vol] 167 mg/dL [employer] Other Vital Signs Date Time Vital Sign Value Performing Clinician Facility 03-16-2024 13:41-0400 Body height 152.4 cm Lucirobert Gant DPM Work Phone: [facility] 03-16-2024 13:41-0400 Body mass index (BMI) [Ratio] 39.06 kg/m2 Luci Gant DPM Work Phone: [facility] 03-16-2024 13:41-0400 Body weight 90.72 kg Luci Stalin DPM Work Phone: [facility] 03-02-2024 08:56-0400 Body height 152.4 cm [facility] 03-02-2024 08:56-0400 Body mass index (BMI) [Ratio] 39.4 kg/m2 [facility] 03-02-2024 08:56-0400 Body temperature 97.7 [degF] [facility] 03-02-2024 08:56-0400 Body weight 91.62 kg [facility] 03-02-2024 08:56-0400 Diastolic blood pressure 60 mm[Hg] [facility] 03-02-2024 08:56-0400 Heart rate 63 /min [facility] 03-02-2024 08:56-0400 Inhaled oxygen flow rate 2 L/min [facility] 03-02-2024 08:56-0400 Respiratory rate 18 /min [facility] 03-02-2024 08:56-0400 SaO2% (BldA) [Mass fraction] 97 % [facility] 03-02-2024 08:56-0400 Systolic blood pressure 114 mm[Hg] [facility] 02-10-2024 10:30-0400 Body height 152.4 cm [facility] 02-10-2024 10:30-0400 Body mass index (BMI) [Ratio] 38.7 kg/m2 [facility] 02-10-2024 10:30-0400 Body temperature 97.5 [degF] [facility] 02-10-2024 10:30-0400 Body weight 89.81 kg [facility] 02-10-2024 10:30-0400 Diastolic blood pressure 75 mm[Hg] [facility] 02-10-2024 10:30-0400 Heart rate 70 /min [facility] 02-10-2024 10:30-0400 Inhaled oxygen flow rate 2 L/min [facility] 02-10-2024 10:30-0400 Respiratory rate 18 /min [facility] 02-10-2024 10:30-0400 SaO2% (BldA) [Mass fraction] 97 % [facility] 02-10-2024 10:30-0400 Systolic blood pressure 160 mm[Hg] [facility] 01-27-2024 13:50-0400 Body height 152.4 cm [facility] 01-27-2024 13:50-0400 Body mass index (BMI) [Ratio] 39.6 kg/m2 [facility] 01-27-2024 13:50-0400 Body temperature 98.2 [degF] [facility] 01-27-2024 13:50-0400 Body weight 92.07 kg [facility] 01-27-2024 13:50-0400 Diastolic blood pressure 72 mm[Hg] [facility] 01-27-2024 13:50-0400 Heart rate 72 /min [facility] 01-27-2024 13:50-0400 Inhaled oxygen flow rate 2 L/min [facility] 01-27-2024 13:50-0400 Respiratory rate 18 /min [facility] 01-27-2024 13:50-0400 SaO2% (BldA) [Mass fraction] 98 % [facility] 01-27-2024 13:50-0400 Systolic blood pressure 166 mm[Hg] [facility] 01-13-2024 11:05-0400 Body height 152.4 cm [facility] 01-13-2024 11:05-0400 Body mass index (BMI) [Ratio] 39.6 kg/m2 [facility] 01-13-2024 11:05-0400 Body temperature 97.9 [degF] [facility] 01-13-2024 11:05-0400 Body weight 92 kg [facility] 01-13-2024 11:05-0400 Diastolic blood pressure 70 mm[Hg] [facility] 01-13-2024 11:05-0400 Heart rate 68 /min [facility] 01-13-2024 11:05-0400 Inhaled oxygen flow rate 2 L/min [facility] 01-13-2024 11:05-0400 Respiratory rate 18 /min [facility] 01-13-2024 11:05-0400 SaO2% (BldA) [Mass fraction] 96 % [facility] 01-13-2024 11:05-0400 Systolic blood pressure 128 mm[Hg] [facility] 12-30-2023 13:44-0400 Body height 152.4 cm [facility] 12-30-2023 13:44-0400 Body mass index (BMI) [Ratio] 39.6 kg/m2 [facility] 12-30-2023 13:44-0400 Body temperature 97.6 [degF] [facility] 12-30-2023 13:44-0400 Body weight 92.24 kg [facility] 12-30-2023 13:44-0400 Diastolic blood pressure 68 mm[Hg] [facility] 12-30-2023 13:44-0400 Heart rate 68 /min [facility] 12-30-2023 13:44-0400 Inhaled oxygen flow rate 2 L/min [facility] 12-30-2023 13:44-0400 Respiratory rate 18 /min [facility] 12-30-2023 13:44-0400 SaO2% (BldA) [Mass fraction] 96 % [facility] 12-30-2023 13:44-0400 Systolic blood pressure 131 mm[Hg] [facility] 12-11-2023 11:31-0400 Body height 152.4 cm [facility] 12-11-2023 11:31-0400 Body mass index (BMI) [Ratio] 40.8 kg/m2 [facility] 12-11-2023 11:31-0400 Body temperature 97.1 [degF] [facility] 12-11-2023 11:31-0400 Body weight 94.85 kg [facility] 12-11-2023 11:31-0400 Diastolic blood pressure 60 mm[Hg] [facility] 12-11-2023 11:31-0400 Heart rate 68 /min [facility] 12-11-2023 11:31-0400 Inhaled oxygen flow rate 2 L/min [facility] 12-11-2023 11:31-0400 Respiratory rate 18 /min [facility] 12-11-2023 11:31-0400 SaO2% (BldA) [Mass fraction] 95 % [facility] 12-11-2023 11:31-0400 Systolic blood pressure 130 mm[Hg] [facility] 12-08-2023 10:40-0400 Body height 152.4 cm [facility] 12-08-2023 10:40-0400 Body mass index (BMI) [Ratio] 40.8 kg/m2 [facility] 12-08-2023 10:40-0400 Body weight 94.97 kg [facility] 12-08-2023 10:40-0400 Diastolic blood pressure 61 mm[Hg] [facility] 12-08-2023 10:40-0400 Heart rate 56 /min [facility] 12-08-2023 10:40-0400 Respiratory rate 18 /min [facility] 12-08-2023 10:40-0400 SaO2% (BldA) [Mass fraction] 95 % [facility] 12-08-2023 10:40-0400 Systolic blood pressure 119 mm[Hg] [facility] 11-18-2023 10:03-0400 Body height 152.4 cm [employer] Anika Elaine Work Phone: [facility] 11-18-2023 10:03-0400 Body mass index (BMI) [Ratio] 39.2 kg/m2 [employer] Anika Elaine Work Phone: [facility] 11-18-2023 10:03-0400 Body temperature 98 [degF] [employer] Anika Elaine Work Phone: [facility] 11-18-2023 10:03-0400 Body weight 91.22 kg [employer] Anika Elaine Work Phone: [facility] 11-18-2023 10:03-0400 Diastolic blood pressure 71 mm[Hg] [employer] Anika Elaine Work Phone: [facility] 11-18-2023 10:03-0400 Heart rate 70 /min [employer] Anika Elaine Work Phone: [facility] 11-18-2023 10:03-0400 Inhaled oxygen flow rate 2 L/min [employer] Anikasophy Marsmer Work Phone: [facility] 11-18-2023 10:03-0400 Respiratory rate 16 /min [employer] Anikasophy Marsmer Work Phone: [facility] 11-18-2023 10:03-0400 SaO2% (BldA) [Mass fraction] 94 % [employer] Anika Elaine Work Phone: [facility] 11-18-2023 10:03-0400 Systolic blood pressure 162 mm[Hg] [employer] Anika Elaine Work Phone: [facility] 11-05-2023 14:04-0400 Body height 152.4 cm [employer] Anika Elaine Work Phone: [facility] 11-05-2023 14:04-0400 Body mass index (BMI) [Ratio] 39 kg/m2 [employer] Anika Light Work Phone: [facility] 11-05-2023 14:04-0400 Body temperature 98.1 [degF] [employer] Anika Light Work Phone: [facility] 11-05-2023 14:04-0400 Body weight 90.71 kg [employer] Anika Light Work Phone: [facility] 11-05-2023 14:04-0400 Diastolic blood pressure 68 mm[Hg] [employer] Anika Light Work Phone: [facility] 11-05-2023 14:04-0400 Heart rate 56 /min [employer] Anika Light Work Phone: [facility] 11-05-2023 14:04-0400 Inhaled oxygen flow rate 2 L/min [employer] Anika Light Work Phone: [facility] 11-05-2023 14:04-0400 Respiratory rate 18 /min [employer] Anika Light Work Phone: [facility] 11-05-2023 14:04-0400 SaO2% (BldA) [Mass fraction] 92 % [employer] Anika Light Work Phone: [facility] 11-05-2023 14:04-0400 Systolic blood pressure 136 mm[Hg] [employer] Anika Light Work Phone: [facility] 10-15-2023 13:42-0400 Body height 152.4 cm [employer] Anika Light Work Phone: [facility] 10-15-2023 13:42-0400 Body mass index (BMI) [Ratio] 38.7 kg/m2 [employer] Anika Marsmer Work Phone: [facility] 10-15-2023 13:42-0400 Body temperature 97.6 [degF] [employer] Anika Marsmer Work Phone: [facility] 10-15-2023 13:42-0400 Body weight 90.03 kg [employer] Anika Elaine Work Phone: [facility] 10-15-2023 13:42-0400 Diastolic blood pressure 70 mm[Hg] [employer] Anika Elaine Work Phone: [facility] 10-15-2023 13:42-0400 Heart rate 60 /min [employer] Anika Elaine Work Phone: [facility] 10-15-2023 13:42-0400 Inhaled oxygen flow rate 2 L/min [employer] Anika Elaine Work Phone: [facility] 10-15-2023 13:42-0400 Respiratory rate 18 /min [employer] Anika Elaine Work Phone: [facility] 10-15-2023 13:42-0400 SaO2% (BldA) [Mass fraction] 97 % [employer] Anika Elaine Work Phone: [facility] 10-15-2023 13:42-0400 Systolic blood pressure 143 mm[Hg] [employer] Anika Elaine Work Phone: [facility] 09-23-2023 09:37-0400 Body height 152.4 cm [employer] Anika Elaine Work Phone: [facility] 09-23-2023 09:37-0400 Body mass index (BMI) [Ratio] 38.5 kg/m2 [employer] Anika Elaine Work Phone: [facility] 09-23-2023 09:37-0400 Body temperature 97.9 [degF] [employer] Anika Elaine Work Phone: [facility] 09-23-2023 09:37-0400 Body weight 89.44 kg [employer] Anika Elaine Work Phone: [facility] 09-23-2023 09:37-0400 Diastolic blood pressure 72 mm[Hg] [employer] Anika Elaine Work Phone: [facility] 09-23-2023 09:37-0400 Heart rate 67 /min [employer] Anika Elaine Work Phone: [facility] 09-23-2023 09:37-0400 Inhaled oxygen flow rate 2 L/min [employer] Anika Elaine Work Phone: [facility] 09-23-2023 09:37-0400 Respiratory rate 18 /min [employer] Anika Elaine Work Phone: [facility] 09-23-2023 09:37-0400 SaO2% (BldA) [Mass fraction] 97 % [employer] Anikasophy Marsmer Work Phone: [facility] 09-23-2023 09:37-0400 Systolic blood pressure 149 mm[Hg] [employer] Anikasophy Marsmer Work Phone: [facility] 09-09-2023 14:15-0400 Body height 152.4 cm [employer] Anikasophy Marsmer Work Phone: [facility] 09-09-2023 14:15-0400 Body mass index (BMI) [Ratio] 38.9 kg/m2 [employer] Anikasophy Marsmer Work Phone: [facility] 09-09-2023 14:15-0400 Body temperature 97.2 [degF] [employer] Anika Marsmer Work Phone: [facility] 09-09-2023 14:15-0400 Body weight 90.49 kg [employer] Anika Elaine Work Phone: [facility] 09-09-2023 14:15-0400 Diastolic blood pressure 77 mm[Hg] [employer] Aniak Elaine Work Phone: [facility] 09-09-2023 14:15-0400 Heart rate 70 /min [employer] Anika Elaine Work Phone: [facility] 09-09-2023 14:15-0400 Inhaled oxygen flow rate 2 L/min [employer] Anika Elaine Work Phone: [facility] 09-09-2023 14:15-0400 Respiratory rate 18 /min [employer] Anika Elaine Work Phone: [facility] 09-09-2023 14:15-0400 SaO2% (BldA) [Mass fraction] 97 % [employer] Anika Elaine Work Phone: [facility] 09-09-2023 14:15-0400 Systolic blood pressure 147 mm[Hg] [employer] Anika Elaine Work Phone: [facility] 09-01-2023 11:35-0400 Diastolic blood pressure 73 mm[Hg] [employer] Anika Elaine Work Phone: [facility] 09-01-2023 11:35-0400 Heart rate 62 /min [employer] Anikasophy Marsmer Work Phone: [facility] 09-01-2023 11:35-0400 Inhaled oxygen flow rate 2 L/min [employer] Anikasophy Marsmer Work Phone: [facility] 09-01-2023 11:35-0400 Respiratory rate 18 /min [employer] Naikasophy Marsmer Work Phone: [facility] 09-01-2023 11:35-0400 SaO2% (BldA) [Mass fraction] 96 % [employer] Anikasophy Marsmer Work Phone: [facility] 09-01-2023 11:35-0400 Systolic blood pressure 164 mm[Hg] [employer] Anika Elaine Work Phone: [facility] 09-01-2023 09:17-0400 Body height 152.4 cm [employer] Anika Elaine Work Phone: [facility] 09-01-2023 09:17-0400 Body weight 93.44 kg [employer] Anika Elaine Work Phone: [facility] 08-20-2023 10:20-0400 Body height 152.4 cm [facility] 08-20-2023 10:20-0400 Body mass index (BMI) [Ratio] 40.2 kg/m2 [facility] 08-20-2023 10:20-0400 Body weight 93.44 kg [facility] 08-20-2023 10:20-0400 Diastolic blood pressure 84 mm[Hg] [facility] 08-20-2023 10:20-0400 Heart rate 73 /min [facility] 08-20-2023 10:20-0400 Inhaled oxygen flow rate 2 L/min [facility] 08-20-2023 10:20-0400 Respiratory rate 18 /min [facility] 08-20-2023 10:20-0400 SaO2% (BldA) [Mass fraction] 94 % [facility] 08-20-2023 10:20-0400 Systolic blood pressure 176 mm[Hg] [facility] 08-13-2023 10:41-0400 Body height 152.4 cm [facility] 08-13-2023 10:41-0400 Body mass index (BMI) [Ratio] 40.1 kg/m2 [facility] 08-13-2023 10:41-0400 Body temperature 97.5 [degF] [facility] 08-13-2023 10:41-0400 Body weight 93.15 kg [facility] 08-13-2023 10:41-0400 Diastolic blood pressure 72 mm[Hg] [facility] 08-13-2023 10:41-0400 Heart rate 77 /min [facility] 08-13-2023 10:41-0400 Inhaled oxygen flow rate 2 L/min [facility] 08-13-2023 10:41-0400 Respiratory rate 20 /min [facility] 08-13-2023 10:41-0400 SaO2% (BldA) [Mass fraction] 95 % [facility] 08-13-2023 10:41-0400 Systolic blood pressure 162 mm[Hg] [facility] 07-30-2023 11:44-0400 Body height 165.1 cm Tr SOLORZANO Work Phone: [employer] 07-30-2023 11:44-0400 Body mass index (BMI) [Ratio] 34.28 kg/m2 Tr Jimenez 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[employer]ER Work Phone: [facility] 07-30-2023 11:44-0400 Body weight 93.44 kg Tr Jimenez 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-[employer]ER Work Phone: [facility] 07-30-2023 11:44-0400 Diastolic blood pressure 80 mm[Hg] Tr Jimenez 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-[employer] P[employer]ER Work Phone: [facility] 07-30-2023 11:44-0400 Heart rate 59 /min Tr Chhart 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-[employer] P[employer]ER Work Phone: [facility] 07-30-2023 11:44-0400 Systolic blood pressure 140 mm[Hg] Tr Jimenez 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-[employer] P[employer]ER Work Phone: [facility] 06-17-2023 12:41-0500 Body height 165.1 cm Iona Delarosa MD Work Phone: [facility] 06-17-2023 12:41-0500 Body mass index (BMI) [Ratio] 33.61 kg/m2 Iona Delarosa MD Work Phone: [facility] 06-17-2023 12:41-0500 Body weight 91.63 kg Iona Delarosa MD Work Phone: [facility] 06-17-2023 12:41-0500 Diastolic blood pressure 70 mm[Hg] Iona Delarosa MD Work Phone: [facility] 06-17-2023 12:41-0500 Heart rate 73 /min Iona Delarosa MD Work Phone: [facility] 06-17-2023 12:41-0500 SaO2% (BldA) [Mass fraction] 97 % Iona Delarosa MD Work Phone: [facility] 06-17-2023 12:41-0500 Systolic blood pressure 160 mm[Hg] Iona Delarosa MD Work Phone: [employer] 05-28-2023 12:35-0500 Body height 165.1 cm Tr Chhart 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-[employer]ER Work Phone: [employer] 05-28-2023 12:35-0500 Body mass index (BMI) [Ratio] 33.61 kg/m2 Tr Jimenez 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[employer]ER Work Phone: [employer] 05-28-2023 12:35-0500 Body weight 91.63 kg Tr Jimenez 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-[employer]ER Work Phone: [employer] 05-28-2023 12:35-0500 Diastolic blood pressure 100 mm[Hg] Tr Jimenez 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-[employer] P[employer]ER Work Phone: [employer] 05-28-2023 12:35-0500 Heart rate 64 /min Tr Chhart 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-[employer]ER Work Phone: [employer] 05-28-2023 12:35-0500 SaO2% (BldA) [Mass fraction] 94 % Tr Jimenez 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-[employer]ER Work Phone: [employer] 05-28-2023 12:35-0500 Systolic blood pressure 200 mm[Hg] Tr Jimenez 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-[employer] P[employer]ER Work Phone: [employer] 04-22-2023 10:20-0500 Body height 152.4 cm Cenifywalter Traff[employer]awanda Other [facility] 04-22-2023 10:20-0500 Body mass index (BMI) [Ratio] 39.64 kg/m2 [employer]en[employer] Other [facility] [employer] Other 04-22-2023 10:20-0500 Body weight 92.08 kg Cen[employer]ter [employer] Other [facility] [employer] Other 04-22-2023 10:20-0500 Body weight 92.07 kg [facility] 04-22-2023 10:20-0500 Diastolic blood pressure 70 mm[Hg] Azwalter Darbys Other [facility] 04-22-2023 10:20-0500 Respiratory rate 18 /min Rin Darbys Other [employer] Other 04-22-2023 10:20-0500 SaO2% (BldA) [Mass fraction] 97 % Rin Darbys Other [employer] Other 04-22-2023 10:20-0500 Systolic blood pressure 138 mm[Hg] Rin Darbys Other [facility] 02-19-2023 09:15-0400 Body height 152.4 cm Tondra Mapus Other [employer] Other 02-19-2023 09:15-0400 Body mass index (BMI) [Ratio] 40.21 kg/m2 Tondra Mapus Other [employer] Other 02-19-2023 09:15-0400 Body weight 93.4 kg Tondra Mapus Other [employer] Other 02-19-2023 09:15-0400 Diastolic blood pressure 64 mm[Hg] Tondra Mapus Other [employer] Other 02-19-2023 09:15-0400 Respiratory rate 18 /min Tondra Mapus Other [employer] Other 02-19-2023 09:15-0400 SaO2% (BldA) [Mass fraction] 95 % Tondra Mapus Other [employer] Other 02-19-2023 09:15-0400 Systolic blood pressure 129 mm[Hg] Tondra Mapus Other [employer] Other 02-12-2023 09:00-0400 Body height 152.4 cm Tondra Mapus Other [employer] Other 02-12-2023 09:00-0400 Body mass index (BMI) [Ratio] 40.07 kg/m2 Tondra Mapus Other [employer] Other 02-12-2023 09:00-0400 Body weight 93.08 kg Tondra Mapus Other [employer] Other 10-22-2022 10:00-0400 Body height 152.4 cm Aziz Sparrowhous Other [employer] Other 10-22-2022 10:00-0400 Body mass index (BMI) [Ratio] 40.23 kg/m2 Aziz Bakhous Other [employer] Other 10-22-2022 10:00-0400 Body temperature 97.4 [degF] Aziz Bakhous Other [employer] Other 10-22-2022 10:00-0400 Body weight 93.44 kg Aziz Bakhous Other [employer] Other 10-22-2022 10:00-0400 Diastolic blood pressure 78 mm[Hg] Aziz Bakhous Other [employer] Other 10-22-2022 10:00-0400 Respiratory rate 20 /min Aziz Bakhous Other [employer] Other 10-22-2022 10:00-0400 SaO2% (BldA) [Mass fraction] 92 % Rin Sarmiento Other [employer] Other 10-22-2022 10:00-0400 Systolic blood pressure 146 mm[Hg] Rin Sarmiento Other [employer] Other 08-19-2022 10:15-0400 Body height 152.4 cm Tondra Mapus Other [employer] Other 08-19-2022 10:15-0400 Body mass index (BMI) [Ratio] 39.82 kg/m2 Tondra Mapus Other [employer] Other 08-19-2022 10:15-0400 Body weight 92.49 kg Tondra Mapus Other [employer] Other 08-19-2022 10:15-0400 Diastolic blood pressure 63 mm[Hg] Tondra Mapus Other [employer] Other 08-19-2022 10:15-0400 Respiratory rate 20 /min Tondra Mapus Other [employer] Other 08-19-2022 10:15-0400 SaO2% (BldA) [Mass fraction] 95 % Tondra Mapus Other [employer] Other 08-19-2022 10:15-0400 Systolic blood pressure 136 mm[Hg] Tondra Mapus Other [employer] Other 02-27-2022 10:15-0400 Body height 152.4 cm Tondra Mapus Other [employer] Other 02-27-2022 10:15-0400 Body mass index (BMI) [Ratio] 41.79 kg/m2 Tondra Mapus Other [employer] Other 02-27-2022 10:15-0400 Body weight 97.07 kg Tondra Mapus Other [employer] Other 02-27-2022 10:15-0400 Diastolic blood pressure 55 mm[Hg] Tondra Mapus Other [employer] Other 02-27-2022 10:15-0400 Respiratory rate 20 /min Tondra Mapus Other [employer] Other 02-27-2022 10:15-0400 SaO2% (BldA) [Mass fraction] 97 % Tondra Mapus Other [employer] Other 02-27-2022 10:15-0400 Systolic blood pressure 130 mm[Hg] Tondra Mapus Other [employer] Other 10-23-2021 11:00-0400 Body height 152.4 cm [employer] Other [employer] Other 10-23-2021 11:00-0400 Body mass index (BMI) [Ratio] 44.05 kg/m2 [employer] Other [employer] Other 10-23-2021 11:00-0400 Body temperature 97.5 [degF] [employer] Other [employer] Other 10-23-2021 11:00-0400 Body weight 102.33 kg Rin Darbys Other [employer] Other 10-23-2021 11:00-0400 Diastolic blood pressure 72 mm[Hg] Azwalter Darbys Other [employer] Other 10-23-2021 11:00-0400 Respiratory rate 20 /min Rin Darbys Other [employer] Other 10-23-2021 11:00-0400 SaO2% (BldA) [Mass fraction] 94 % Rin Darbys Other [employer] Other 10-23-2021 11:00-0400 Systolic blood pressure 135 mm[Hg] Rin Darbys Other [employer] Other 05-23-2021 10:15-0500 Body height 152.4 cm Tondra Mapus Other [employer] Other 05-23-2021 10:15-0500 Body mass index (BMI) [Ratio] 43.25 kg/m2 Tondra Mapus Other [employer] Other 05-23-2021 10:15-0500 Body weight 100.47 kg Tondra Mapus Other [employer] Other 05-23-2021 10:15-0500 Diastolic blood pressure 57 mm[Hg] Tondra Mapus Other [employer] Other 05-23-2021 10:15-0500 Respiratory rate 20 /min Tondra Mapus Other [employer] Other 05-23-2021 10:15-0500 SaO2% (BldA) [Mass fraction] 96 % Chester Lin Other [employer] Other 05-23-2021 10:15-0500 Systolic blood pressure 131 mm[Hg] Chester Lin Other [employer] Other Encounters Encounter Date Encounter Type Care Provider Facility Start: 03-16-2024 End: 03-16-2024 Bamboo flowsheet Luci Gant DPM Work Phone: [facility] Start: 03-16-2024 End: 03-16-2024 Bamboo flowsheet Luci Gant DPM Work Phone: [facility] Start: 03-16-2024 End: 03-16-2024 ambulatory LUCI GANT Not Available Start: 03-16-2024 End: 03-16-2024 Patient encounter procedure Luci Gant DPM Work Phone: [facility] Comment on above: Dermatophytosis of n ail (Primary Dx); Dystrophic nail; Pain around toenail, right foot; Pain around toenail, left foot Start: 03-03-2024 End: 03-03-2024 Follow-up encounter [facility] Medication Therapy Management Comment on above: PAF (paroxysmal atri al fibrillation) ([facility]) (Primary Dx) Start: 03-03-2024 End: 03-03-2024 ambulatory [facility] Start: 03-02-2024 End: 03-02-2024 ambulatory [facility] Work Phone: Start: 03-02-2024 End: 03-02-2024 Patient encounter procedure [facility] [place] Work Phone: Start: 02-23-2024 Non-patient / Non-visit [facility] Work Phone: Start: 02-10-2024 End: 02-10-2024 ambulatory [facility] Work Phone: Start: 02-10-2024 End: 02-10-2024 Patient encounter procedure [facility] [place] Work Phone: Start: 02-03-2024 Non-patient / Non-visit [facility] Work Phone: Start: 01-28-2024 End: 01-28-2024 ambulatory [facility] Start: 01-27-2024 End: 01-27-2024 ambulatory [facility] Work Phone: Start: 01-27-2024 End: 01-27-2024 Patient encounter procedure [facility] [place] Work Phone: Start: 01-23-2024 Non-patient / Non-visit [facility] Work Phone: Start: 01-20-2024 Non-patient / Non-visit [facility] Work Phone: Start: 01-13-2024 End: 01-13-2024 ambulatory [facility] Work Phone: Start: 01-13-2024 End: 01-13-2024 Patient encounter procedure [facility] Nephrology Work Phone: Start: 01-05-2024 Non-patient / Non-visit [facility] Work Phone: Start: 12-31-2023 End: 12-31-2023 ambulatory [facility] Start: 12-30-2023 End: 12-30-2023 [facility]ulatory [facility] Work Phone: Start: 12-30-2023 End: 12-30-2023 Patient encounter procedure [facility] Nephrology Work Phone: Start: 12-11-2023 End: 12-11-2023 ambulatory LUCI GANT Not Available Start: 12-11-2023 End: 12-11-2023 ambulatory [facility] Work Phone: Start: 12-11-2023 End: 12-11-2023 Patient encounter procedure [facility] Nephrology Joseph Work Phone: Start: 12-08-2023 End: 12-08-2023 ambulatory [facility] Work Phone: Start: 12-08-2023 End: 12-08-2023 Patient encounter procedure [facility] Work Phone: Start: 12-03-2023 End: 12-03-2023 ambulatory [facility]OB[facility] SERV[facility] Start: 11-27-2023 Non-patient / Non-visit [facility] Work Phone: Start: 11-18-2023 End: 11-18-2023 ambulatory [employer] Anika Deepa Elaine Work Phone: [facility] Work Phone: Start: 11-18-2023 End: 11-18-2023 Patient encounter procedure FIRST [employer] Anika Marsmer Work Phone: [facility] Nephrology Work Phone: Start: 11-13-2023 Non-patient / Non-visit [employer] P mellissa Elaine Work Phone: [facility] Work Phone: Start: 11-12-2023 End: 11-12-2023 ambulatory [facility]OB[facility] SERVICE [facility] Start: 11-05-2023 End: 11-05-2023 ambulatory [employer] Anika Deepa Elaine Work Phone: [facility] Work Phone: Start: 11-05-2023 End: 11-05-2023 Patient encounter procedure FIRST [employer]AK[employer] FEED[employer] Anika Elaine Work Phone: [facility] Nephrology Work Phone: Start: 10-30-2023 Non-patient / Non-visit FIRST [employer]AK[employer] P mellissa Elaine Work Phone: [facility] Work Phone: Start: 10-22-2023 End: 10-22-2023 ambulatory [facility]OB[facility] SERVICE [facility] Start: 10-15-2023 End: 10-15-2023 ambulatory [employer] Anika Deepa Elaine Work Phone: [facility] Work Phone: Start: 10-15-2023 End: 10-15-2023 Patient encounter procedure FIRST [employer]AKER FEED[employer]-C Anika Elaine Work Phone: [facility] Nephrology Work Phone: Start: 10-08-2023 End: 10-08-2023 ambulatory [facility]OB[facility] SERVICE [facility] Start: 10-07-2023 Non-patient / Non-visit FIRST [employer]AK[employer]ED[employer] P mellissa Leaine Work Phone: [facility] Work Phone: Start: 09-23-2023 End: 09-23-2023 ambulatory [facility]OBST SERVICE [facility] Start: 09-23-2023 End: 09-23-2023 ambulatory [employer] Anika Deepa Elaine Work Phone: [facility] Work Phone: Start: 09-23-2023 End: 09-23-2023 Patient encounter procedure FIRST [employer]AK[employer] FEED[employer]-C Anika Elaine Work Phone: [facility] Nephrology Work Phone: Start: 09-16-2023 End: 09-16-2023 ambulatory JOBST SERVICE [facility] Start: 09-16-2023 Non-patient / Non-visit FIRST BREAKER FEEDER-C Vanesa mellissa Elaine Work Phone: [facility] Work Phone: Start: 09-11-2023 End: 09-11-2023 ambulatory LUCI GANT Not Available Start: 09-09-2023 End: 09-09-2023 ambulatory [employer]AK[employer]ED[employer]-C Anika Arenas Elaine Work Phone: [facility] Work Phone: Start: 09-09-2023 End: 09-09-2023 Patient encounter procedure FIRST [employer]AK[employer] FEEDER-C Anika Elaine Work Phone: [facility] Nephrology Work Phone: Start: 09-01-2023 End: 09-01-2023 ambulatory Anika Light Facility:[facility] Start: 09-01-2023 End: 09-01-2023 Admission to same day surgery center FIRST BREAKER FEEDER-C Anika Light Work Phone: [facility] [place] Work Phone: Start: 09-01-2023 End: 09-01-2023 ambulatory FIRST BREAKER FEEDER-C Anika Light Work Phone: [facility] Work Phone: Start: 08-21-2023 End: 08-21-2023 Follow-up encounter [facility] Medication Therapy Management Comment on above: PAF (paroxysmal atri al fibrillation) ([facility]) (Primary Dx) Start: 08-21-2023 End: 08-21-2023 ambulatory JOB[facility] SERVICE [facility] Start: 08-20-2023 End: 08-20-2023 ambulatory [facility] Work Phone: Start: 08-20-2023 End: 08-20-2023 Patient encounter procedure [facility] Work Phone: Start: 08-20-2023 End: 09-17-2023 ambulatory [facility] Start: 08-13-2023 End: 08-13-2023 [facility]ulatory [facility] Work Phone: Start: 08-13-2023 End: 08-13-2023 Patient encounter procedure [facility] Nephrology Work Phone: Start: 08-05-2023 Non-patient / Non-visit [facility] Work Phone: Start: 08-01-2023 Non-patient / Non-visit [facility] Work Phone: Start: 07-30-2023 End: 07-30-2023 Office outpatient visit 25 minutes Cole Krishnan MD Work Phone: [facility] Cardiology Comment on above: PAF (paroxysmal atri al fibrillation) ([facility]) (Primary Dx); Hyperlipidemia, unspecified hyperlipidemia type; Benign hypertensive heart disease without congestive heart failure Start: 07-30-2023 End: 07-30-2023 Follow-up encounter [facility] Medication Therapy Management Comment on above: PAF (paroxysmal atri al fibrillation) ([facility]) (Primary Dx) Start: 07-30-2023 End: 07-30-2023 ambulatory [facility] Start: 07-29-2023 Telephone encounter Enedelia garay [facility] Cardiology Start: 07-21-2023 Orders Only Alicia Galvan RN [facility]icians Pulmonary/Sleep Medicine Comment on above: Shortness of breath; Chronic obstructive pulmonary disease, unspecified COPD type ([facility]) Start: 07-18-2023 End: 07-18-2023 Follow-up encounter [facility] Medication Therapy Management Comment on above: PAF (paroxysmal atri al fibrillation) ([facility]) (Primary Dx) Start: 07-18-2023 End: 07-18-2023 ambulatory [facility] Start: 07-10-2023 End: 07-10-2023 Follow-up encounter [facility] Medication Therapy Management Comment on above: PAF (paroxysmal atri al fibrillation) ([facility]) (Primary Dx) Start: 07-10-2023 End: 07-10-2023 ambulatory [facility] Start: 07-02-2023 End: 07-02-2023 ambulatory ANITA MCCOY [facility] Start: 06-26-2023 End: 06-26-2023 Follow-up encounter [facility] Medication Therapy Management Comment on above: PAF (paroxysmal atri al fibrillation) ([facility]) (Primary Dx) Start: 06-26-2023 End: 06-26-2023 [facility] Start: 06-20-2023 End: 07-18-2023 ambulatory [facility] Start: 06-17-2023 End: 06-17-2023 Office outpatient visit 15 minutes Iona Delarosa MD Work Phone: [facility] Cardiology Comment on above: PAF (paroxysmal atri al fibrillation) ([facility]) (Primary Dx); Benign hypertensive heart disease without congestive heart failure; 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 ([facility]); Shortness of breath; COPD with acute exacerbation ([facility]) Start: 06-17-2023 End: 06-17-2023 Follow-up encounter [facility] Medication Therapy Management Comment on above: PAF (paroxysmal atri al fibrillation) ([facility]) (Primary Dx) Start: 06-17-2023 End: 06-17-2023 ambulatory IONA DELAROSA [facility] Start: 06-16-2023 Telephone encounter Enedelia garay CMA [facility] Cardiology Start: 06-10-2023 End: 06-10-2023 Follow-up encounter [facility] Medication Therapy Management Comment on above: PAF (paroxysmal atri al fibrillation) ([facility]) (Primary Dx) Start: 06-10-2023 End: 06-10-2023 ambulatory [facility] Start: 06-09-2023 End: 06-09-2023 ambulatory Tondra Lin Other [employer] Other Start: 06-09-2023 Telephone encounter Chester Delia [facility] Start: 06-05-2023 End: 06-05-2023 Follow-up encounter [facility] Medication Therapy Management Comment on above: PAF (paroxysmal atri al fibrillation) ([facility]) (Primary Dx) Start: 06-05-2023 End: 06-05-2023 [facility] Start: 06-03-2023 End: 06-03-2023 ambulatory Rin Sarmiento Other [employer] Other Start: 06-03-2023 Telephone encounter Rin Sarmiento [facility] Nephrology Start: 06-02-2023 End: 06-02-2023 Follow-up encounter [facility] Medication Therapy Management Comment on above: PAF (paroxysmal atri al fibrillation) ([facility]) (Primary Dx) Start: 06-02-2023 End: 06-02-2023 ambulatory ANIKA S [facility] Start: 05-28-2023 End: 05-28-2023 Office outpatient visit 25 minutes Tr Jimenez 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-FRUIT PICKER Work Phone: [facility] Cardiology Comment on above: PAF (paroxysmal atri al fibrillation) ([facility]) (Primary Dx); Ventricular premature beats; Sinus pause; Benign hypertensive heart disease without congestive heart failure; 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 Start: 05-28-2023 End: 07-09-2023 ambulatory TR JIMENEZ [facility] Start: 05-27-2023 End: 05-27-2023 ambulatory Tondra Susannaus Other [employer] Other Start: 05-27-2023 Telephone encounter Elza Wolfe [facility] Start: 05-26-2023 End: 05-26-2023 Follow-up encounter [facility] 1 [facility] Medication Therapy Management Comment on above: PAF (paroxysmal atri al fibrillation) ([facility]) (Primary Dx) Start: 05-26-2023 End: 05-26-2023 [facility] Start: 05-21-2023 End: 05-21-2023 Anticoagulant drug monitoring [facility] 1 [facility] Medication Therapy Management Comment on above: PAF (paroxysmal atri al fibrillation) ([facility]) (Primary Dx) Start: 05-21-2023 End: 05-21-2023 ambulatory [facility] Start: 05-06-2023 End: 05-06-2023 ambulatory [facility] Start: 04-23-2023 End: 04-23-2023 ambulatory Aziz Bakhous Other [employer] Other Start: 04-23-2023 Telephone encounter Aziz Bakhous [facility] Start: 04-22-2023 End: 04-22-2023 ambulatory Aziz Bakhous Other [employer] Other Start: 04-22-2023 Office outpatient vi sit 25 minutes Aziz Bakhous [facility] Start: 04-22-2023 End: 04-22-2023 Patient encounter procedure [facility] Work Phone: Start: 04-21-2023 End: 04-21-2023 ambulatory Aziz Bakhous Other [employer] Other Start: 04-21-2023 Telephone encounter Aziz Bakhous [facility] Start: 02-19-2023 (DM) Diabetes Tondra Mapus [facility] Start: 02-19-2023 End: 02-20-2023 ambulatory PHYSICIAN NO FAMILY [employer] Other Start: 02-12-2023 End: 02-12-2023 ambulatory Tondra Mapus Other [employer] Other Start: 02-12-2023 Nursing evaluation o f patient and report Tondra Delia [facility] Start: 01-24-2023 End: 01-24-2023 ambulatory Tondra Mapus Other [employer] Other Start: 01-24-2023 Telephone encounter Tondra Mapus [facility] Start: 10-30-2022 End: 10-30-2022 ambulatory Tondra Mapus Other [employer] Other Start: 10-30-2022 Telephone encounter Tondra Susannaus [facility] Start: 10-22-2022 End: 10-22-2022 ambulatory Aziz Bakhous Other [employer] Other Start: 10-22-2022 Office outpatient vi sit 25 minutes Aziz Bakhous [facility] Start: 10-16-2022 ambulatory ANIKA ELAINE Facility: Start: 08-20-2022 End: 08-20-2022 ambulatory Tondra Mapus Other [employer] Other Start: 08-20-2022 Telephone encounter Tondra Mapus [facility] Start: 08-19-2022 (DM) Diabetes Tondra Delia [facility] Start: 08-19-2022 End: 08-19-2022 ambulatory Tondra Mapus Other [employer] Other Start: 08-02-2022 End: 08-02-2022 ambulatory Tondra Mapus Other [employer] Other Start: 08-02-2022 Telephone encounter Tondra Mapus [facility] Start: 05-30-2022 End: 05-30-2022 ambulatory Tondra Mapus Other [employer] Other Start: 05-30-2022 Telephone encounter Tondra Mapus [facility] Start: 05-01-2022 End: 05-01-2022 ambulatory Tondra Mapus Other [employer] Other Start: 05-01-2022 Telephone encounter Tondra Mapus Jul[facility] Start: 04-01-2022 End: 04-01-2022 ambulatory Tondra Mapus Other [employer] Other Start: 04-01-2022 Telephone encounter Tondra Mapus [facility] Start: 02-27-2022 (DM) Diabetes Tondra Mapus [facility] Start: 02-27-2022 End: 02-27-2022 ambulatory Tondra Mapus Other [employer] Other Start: 01-28-2022 End: 01-28-2022 ambulatory Becca Michael Other [employer] Other Start: 01-28-2022 Telephone encounter Becca Michael [facility] Start: 01-09-2022 End: 01-09-2022 ambulatory Tondra Mapus Other [employer] Other Start: 01-09-2022 Telephone encounter Tondra Mapus [facility] Start: 12-31-2021 End: 12-31-2021 ambulatory Tondra Mapus Other [employer] Other Start: 12-31-2021 Telephone encounter Tondra Mapus [facility] Start: 12-17-2021 End: 12-17-2021 ambulatory Tondra Mapus Other [employer] Other Start: 12-17-2021 Telephone encounter Tondra Mapus [facility] Start: 11-25-2021 End: 11-25-2021 ambulatory Tondra Mapus Other [employer] Other Start: 11-25-2021 Telephone encounter Tondra Mapus [facility] Start: 11-02-2021 (FCCC INJ) FCCC Injection Marixa Fitt [facility] Start: 11-02-2021 End: 11-02-2021 ambulatory Marixa Fitt Other [employer] Other Start: 10-30-2021 End: 10-31-2021 ambulatory ANIKA ELAINE Facility:[facility] Start: 10-26-2021 End: 10-26-2021 ambulatory Tondra Mapus Other [employer] Other Start: 10-26-2021 Telephone encounter Tondra Mapus [facility] Start: 10-23-2021 End: 10-23-2021 ambulatory Aziz Bakhous Other [employer] Other Start: 10-23-2021 Office outpatient vi sit 15 minutes Aziz Bakhous [facility] Start: 10-22-2021 End: 10-22-2021 ambulatory Tondra Mapus Other [employer] Other Start: 10-22-2021 Telephone encounter Tondra Mapus [facility] Start: 09-10-2021 End: 09-10-2021 ambulatory Tondra Mapus Other [employer] Other Start: 09-10-2021 Telephone encounter Chester Lin [facility] Start: 05-23-2021 (DM) Diabetes Chester Lin [facility] Start: 05-23-2021 End: 05-23-2021 ambulatory Chester Lin Other [facility] [employer] Other Procedures Date Procedure Procedure Detail Performing Clinician Start: 03-03-2024 Prothrombin time [employer] Service Work Phone: Start: 09-01-2023 Needle biopsy FIRST BREAKER FEEDER-C Charity Tapia Work Phone: Start: 08-21-2023 Prothrombin time [employer] Work Phone: Start: 07-30-2023 Prothrombin time [employer] Work Phone: Start: 07-30-2023 Ecg routine ecg w/le ast 12 lds w/i&r Tr E Tony 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-FRUIT PICKER Work Phone: Start: 07-30-2023 Follow-up visit Follow-up [...] ast 12 lds w/i&r Tr E Tony 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-FRUIT PICKER Work Phone: Start: 05-26-2023 Prothrombin time [employer] Work Phone: Start: 05-21-2023 Prothrombin time [employer] Work Phone: Start: 05-09-2023 Adult depression scr eening assessment [facility] 1 Start: 02-14-2014 Colonoscopy [facility] 1 Plan of Treatment Date Care Activity Detail Author Start: 10-26-2024 Adult BMI Screening Adult BMI Screen ing [facility] Start: 10-26-2024 Tobacco Screening Tobacco Screening [facility] Start: 07-29-2024 Adult BMI Screening Adult BMI Screen ing [facility] Start: 07-29-2024 Tobacco Screening Tobacco Screening [facility] Start: 06-17-2024 Adult BMI Screening Adult BMI Screen ing [facility] Start: 06-17-2024 Tobacco Screening Tobacco Screening [facility] Start: 05-28-2024 Adult BMI Screening Adult BMI Screen ing [facility] Start: 05-28-2024 Tobacco Screening Tobacco Screening [facility] Start: 05-10-2024 Adult BMI Screening Adult BMI Screen ing [facility] Start: 05-09-2024 Depression Screening Depression Scre ening [facility] Start: 05-09-2024 Tobacco Screening Tobacco Screening [facility] Start: 04-26-2024 End: 04-26-2024 Patient encounter procedure 04/26/2024 3:15 PM EST Office Visit [facility] [address] [place] [id number] Anita Mccoy MD [address] [place] [address] [facility] Start: 04-07-2024 End: 04-07-2024 Follow-up encounter 04/07/2024 1:00 PM EST Follow Up Anticoagulation [facility] Medication Therapy Management [address] [place] [address] [facility] Medication Therapy Management Start: 01-18-2024 COVID-19 Vaccine ( season) COVID-19 Vaccine () [facility] Start: 01-18-2024 Influenza vaccination [facility] Start: 10-27-2023 End: 10-27-2023 Patient encounter procedure 10/27/2023 2:45 PM EDT Office Visit [facility] [address] [phone] Anita Mccoy MD [address] [place] [address] [facility] Start: 09-16-2023 End: 09-16-2023 Follow-up encounter 09/16/2023 1:30 PM EDT Follow Up Anticoagulation [facility] Medication Therapy Management [address] [place] [address] [facility] Medication Therapy Management Start: 09-01-[address] [facility] Start: 09-01-2023 CT guided biopsy [facility] Start: 09-01-[address] guided biopsy [facility] Start: 08-20-2023 End: 08-20-2023 Follow-up encounter 08/20/2023 11:00 AM EDT Follow Up Anticoagulation [facility] Medication Therapy Management [address] [place] [address] [facility] Medication Therapy Management Start: 07-30-2023 End: 07-30-2023 Patient encounter procedure 07/30/2023 12:30 PM EDT Office Visit [facility] [address] [place] [address] Cole Krishnan MD [address] [place] [address] Tr Jimenez, 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-FRUIT PICKER [address], [place] [id number] [facility] Start: 07-30-2023 End: 07-30-2023 Follow-up encounter 07/30/2023 11:30 AM EDT Follow Up Anticoagulation [facility] Medication Therapy Management [address] [place] [address] [facility] Therapy Management Start: 07-18-2023 End: 07-18-2023 Follow-up encounter 07/18/2023 1:15 PM EST Follow Up Anticoagulation [facility] Medication Therapy Management [address] [place] [address] [facility] Med[facility] Therapy Management Start: 07-10-2023 End: 07-10-2023 Follow-up encounter 07/10/2023 1:15 PM EST Follow Up Anticoagulation [facility] Medication Therapy Management [address] [place] [address] [facility] Med[facility] Therapy Management Start: 07-02-2023 End: 07-02-2023 Patient encounter procedure 07/02/2023 1:00 PM EST Appointment [facility] - Pulmonary Function [address] [place] [address] Anita Mccoy MD [address] [place] [address] [facility] - Pulmonary Function Start: 06-20-2023 End: 06-20-2023 Follow-up encounter 06/20/2023 1:15 PM EST Follow Up Anticoagulation [facility] Medication Therapy Management [address] [place] [address] [facility] Medication Therapy Management Start: 06-17-2023 End: 06-17-2023 Patient encounter procedure 06/17/2023 1:00 PM EST Office Visit [facility] [address] [place] [address] Iona Delarosa MD [address] [facility] [place] [address] [facility] Card[facility] Start: 06-17-2023 End: 06-17-2023 Follow-up encounter 06/17/2023 12:30 PM EST Follow Up Anticoagulation [facility] Medication Therapy Management [address] [place] [address] [facility] Therapy Management Start: 06-10-2023 End: 06-10-2023 Follow-up encounter 06/10/2023 2:30 PM EST Follow Up Anticoagulation [facility] Medication Therapy Management [address] [place] [address] [facility] Med[facility] Therapy Management Start: 06-05-2023 End: 06-05-2023 Follow-up encounter 06/05/2023 11:45 AM EST Follow Up Anticoagulation [facility] Medication Therapy Management [address] [place] [address] [facility] Med[facility] Therapy Management Start: 06-04-2023 End: 05-28-2024 Basic metabolic 2000 panel - Serum or Plasma Basic Metabolic Panel Lab Routine Benign hypertensive heart disease without congestive heart failure Expected: 06/04/2023 (Approximate), Expires: 05/28/2024 [facility] System Comment on above: Expected: 06/04/2023 (Approximate), Expires: 05/28/2024 Start: 06-02-2023 End: 06-02-2023 Follow-up encounter 06/02/2023 1:15 PM EST Follow Up Anticoagulation [facility] Medication Therapy Management [address] [place] [address] [facility] Medication Therapy Management Start: 05-28-2023 End: 05-28-2024 Wireless Telemetry (In Office) [facility] Work Phone: Comment on above: Expected: 05/28/2023 , Expires: 05/28/2024 Start: 05-28-2023 End: 05-28-2023 Patient encounter procedure 05/28/2023 1:00 PM EST Office Visit [facility] [address] [place] [address] Tr Jimenez, 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-FRUIT PICKER [address] [place] [address] [facility] Start: 05-26-2023 End: 05-26-2023 Follow-up encounter 05/26/2023 1:45 PM EST Follow Up Anticoagulation [facility] Medication Therapy Management [address] [place] [address] [facility] Medication Therapy Management Start: 02-14-2017 Screening for malign ant neoplasm of colon Colonoscopy [facility] Start: 2005 Fall Risk Screening Fall Risk Screen ing [facility] Start: 1990 Administration of varicella zoster vaccine Zoster (Shingles) Vaccine (1 of 2) [facility] Start: 1959 DTaP,Tdap and Td Vaccines (1 - Tdap) DTaP,Tdap and Td Vaccines (1 - Tdap) [facility] Start: 1958 Adult BMI Follow Up Plan Adult BMI F ollow Up Plan [facility] Start: 1940 Medicare Annual Well ness Visit Medicare Annual Wellness Visit [facility] aPTT in Platelet poo r plasma by Coagulation assay [facility] CT guided biopsy [facility] End: 05-28-2024 Hepatic function 2000 panel - Serum or Plasma Hepatic function panel Lab Routine [facility] current use of amiodarone 1 Occurrences starting 05/28/2023 until 05/28/2024 [facility] Comment on above: 1 Occurrences starti ng 05/28/2023 until 05/28/2024 Patient Education [facility] Work Phone: Renal function 2000 panel - Serum or Plasma [facility] Renal function 2000 panel - Serum or Plasma [facility] Renal function 2000 panel - Serum or Plasma [facility] Renal function 2000 panel - Serum or Plasma [facility] Renal function 2000 panel - Serum or Plasma [facility] Renal function 2000 panel - Serum or Plasma [facility] Renal function 1999 panel - Serum or Plasma [facility] End: 05-28-2024 Thyroid profile includes TSH FT4 Thyroid profile includes TSH FT4 Lab Routine [facility] current use of amiodarone 1 Occurrences starting 05/28/2023 until 05/28/2024 [facility] Comment on above: 1 Occurrences starti ng 05/28/2023 until 05/28/2024 [facility] Immunizations Immunization Date Immunization Notes Care Provider Fa cility 02-19-2023 Covid-19, Mrna, Lnp- s, Pf,anthony-sucrose,30 Mcg/0.3ml Fall23 [facility] 02-19-2023 Influenza Vaccine, Quadrivalent, Adjuvanted [facility] 02-19-2023 RSV, bivalent, prote in subunit RSVpreF, diluent reconstituted, 0.5 mL, PF [facility] 02-19-2023 influenza virus vaccine, unspecified formulation [facility] 03-11-2022 influenza virus vaccine, unspecified formulation Pm 1 [facility] 05-12-2021 influenza virus vaccine, unspecified formulation Pm 1 [facility] 03-12-2021 Influenza, High-dose , Quadrivalent P[facility] 1 [facility] 08-04-2020 COVID-19 Vaccine Zoya - Documentation Purposes Only Chester Lin Other [facility] 02-09-2020 Influenza, High-dose , Quadrivalent [facility] 02-01-2020 influenza virus vaccine, unspecified formulation [facility] 01-21-2018 influenza, high dose seasonal, preservative-free [facility] 06-19-2017 pneumococcal conjuga te vaccine, 13 valent [facility] 03-19-2017 influenza virus vaccine, unspecified formulation [facility] 03-19-2016 seasonal influenza, intradermal, preservative free [facility] 02-06-2016 influenza, seasonal, injectable, preservative free [facility] 03-31-2015 pneumococcal conjuga te vaccine, 13 valent [facility] 03-28-2015 influenza, seasonal, injectable Tondra Mapus Other [facility] Other 03-19-2015 pneumococcal polysaccharide vaccine, 23 valent [facility] 02-14-2015 influenza, seasonal, injectable [facility] 03-31-2014 influenza, seasonal, injectable [facility] 03-04-2012 influenza virus vaccine, whole virus [facility] 03-04-2011 influenza virus vaccine, whole virus [facility] Payers Date Payer Category Payer Medicare (Managed Care) DODIE Kent [facility] [id number] 2017 Self-pay [id number] 2017 Unknown [id number] 2015 Medicare [facility] MEDICARE [facility] MEDICARE ADVANTAGE [id number] 2015-Present [phone] [address] [place] [address] [id number] 2015 Medicare HMO ANTH MEDICARE [id number] 1959 Medicare [id number] [id number] 1940 Unknown [id number] 2.0.1.659294.3.579. 2.593 1940 Unknown [id number] 2.840.1.207152.3.579. 2.593 1940 Unknown [id number] 2.0.1.060767.3.579. 2.1286 1940 Unknown [id number] 2.840.1.704450.3.579. 2.1286 1940 Unknown [id number] 2.16840.1.275135.3.579. 2.128 1940 Unknown [id number] 2.16840.1.543972.3.579. 2.1286 1940 Unknown [id number] 2.16840.1.900088.3.579. 2.128 1940 Unknown [id number] 2.16.840.1.912893.3.579. 2.1285 1940 Unknown [id number] 2.16.840.1.504715.3.579. 2.1285 1940 Unknown [id number] 2.16.840.1.589590.3.579. 2.1285 1940 Unknown [id number] 2.16.840.1.415632.3.579. 2.1285 1940 Unknown [id number] 2.16.840.1.703980.3.579. 2.1285 1940 Unknown [id number] 2.16.840.1.376661.3.579. 2.1285 1940 Unknown [id number] 2.16.840.1.880573.3.579. 2.1285 1940 Unknown [id number] 2.16.840.1.926415.3.579. 2.1285 1940 Unknown [id number] 2.16.840.1.627759.3.579. 2.1285 1940 Unknown [id number] 2.16.840.1.981214.3.579. 2.1285 1940 Unknown [id number] 2.16.840.1.854946.3.579. 2.1285 1940 Unknown [id number] 2.16.840.1.717082.3.579. 2.1285 1940 Unknown [id number] 2.16.840.1.397837.3.579. 2.1285 1940 Unknown [id number] 2.16.840.1.903786.3.579. 2.1285 1940 Unknown [id number] 2.16.840.1.097934.3.579. 2.1285 1940 Unknown [id number] 2.16.840.1.337655.3.579. 2.1286 1940 Unknown [id number] 2.16.840.1.769143.3.579. 2.1286 1940 Unknown [id number] 2.16.840.1.754681.3.579. 2.1286 1940 Unknown [id number] 2.16.840.1.802384.3.579. 2.1286 1940 Unknown [id number] 2.16.840.1.386604.3.579. 2.1286 1940 Unknown [id number] 2.16.840.1.401321.3.579. 2.1286 1940 Unknown [id number] 2.16.840.1.367511.3.579. 2.1286 1940 Unknown [id number] 2.16.840.1.367499.3.579. 2.1286 1940 Unknown [id number] 2.16.840.1.283124.3.579. 2.1259 1940 Unknown [id number] 2.16.840.1.077764.3.579. 2.1259 1940 Unknown [id number] 2.16.840.1.277798.3.579. 2.1259 1940 Unknown [id number] 2.16840.1.298059.3.579. 2.1259 Unknown Regular Auto/Liability [id number] Unknown [id number] 2.16.840.1.118006.3.579. 2.531 Unknown [id number] 2.16840.1.368862.3.579. 2.531 Social History Date Type Detail Facility Unknown if ever smoked [facility] Other Start: 05-09-2023 End: 12-11-2023 Sex Assigned At [id number] Other Start: 03-11-2022 End: 11-20-2022 Tobacco smoking status NHIS Never smoked tobacco [facility] Start: 03-11-2022 End: 11-20-2022 Tobacco use and exposure Smokeless tobacco non-user [facility] Start: 05-09-2023 End: 10-27-2023 Alcohol intake Current non-drinker of alcohol (finding) [facility] Start: 05-09-2023 End: 12-11-2023 Alcohol intake [facility] How often to you hav e a drink containing alcohol? Never [facility] How many standard drinks containing alcohol do you have on a typical day? Patient does not drink [facility] Start: 1940 Sex Assigned At Not on file P [facility] Start: 1940 Sex Assigned At Female F [facility] Start: 12-22-2014 Sex Female (finding) [facility] Start: 12-11-2023 End: 03-16-2024 Alcoholic beverage intake Ex-drinker (finding) [facility] Medical Equipment Procedure Code Equipment Code Equipment Origin al Text Equipment Identifier Dates Start: 03-12-2017 Goals Date Patient Goal Desired Activity /State Personal health goal Comment on above: Formatting of this n ote might be different from the original. Evaluation of progress towards goal: return home self care with hsb support Clinical Notes 06-04-2020 to 03-16-2024 ZOILA Leo - 03/16/2024 1:30 PM EDTPatient Amira Freedman, [facility] - 03/03/2024 1:15 PM Jaime Schumacher, [facility] - 08/21/2023 1:45 PM Jaime Schumacher, [facility] - 08/21/2023 1:45 PM EDT Note Date & Type Note Facility 03-16-2024 History of Presen t illness Narrative Images from the original note were not included. Subjective Patient ID: Margie Martínez is a 83 y.o. female who presents for Nail care (Margie Martínez is a 83 y.o. female who presents for DM Foot Care PCP: Anika Light LV 10/31/23, A1C: 5.4, BS:, 93 SS: [...] Luci Gant DPM documented in this encounter [facility] 03-16-2024 Instructions Luci Gant DPM - 03/16/2024 1:30 PM EDT As noted documented in this encounter [facility] 03-03-2024 History of Presen t illness Narrative 15 minute drrf-df-oznr follow-up anticoagulation appointment. INR performed in office [...] RPH 03/03/24 1324 documented in this encounter [facility] 08-21-2023 History of Presen t illness Narrative 15 minute ylbh-pa-owbp follow-up anticoagulation appointment. INR performed in office [...] Upcoming procedures: YES [place]23[place] [facility] [place] Patient thinks [...] persists or worsens. Alie Schumacher RPH 08/21/[address] Sarmiento office ([phone]; [facility]) to inquire about procedural needs. LM requesting return call to clarify holding needs for biopsy on 09/01/23. Pending holding needs, clearance to hold may be needed by [facility]. Patient dx: Afib with CHADsVASc=4. Bridging not recommended. Last saw DELORES Jimenez on 07/30/23. Benjy MartínezD, BCPS August 21, 2023 1:49 PM Alie Schumacher RP 08/21/23 1352 documented in this encounter [facility] 07-30-2023 History of Presen t illness Narrative Margie Martínez Date of visit: 07/30/2023 Date of : 1940 Age: 83 y.o. 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 failure Obstructive sleep apnea syndrome Shortness of breath Abnormal result of cardiovascular function study Class 3 severe obesity in adult ([facility]) Ventricular premature beats 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 ([facility]) PAF (paroxysmal 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) ([facility]) Sinus pause Allergies Allergen Reactions Janeth Inhibitors [...] and crestor History of Present Illness Margie Liutom female here on follow-up to discuss her 30 day monitor due to history of 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, COPD with intermittent O2 use diastolic heart failure, hypertension, hypothyroidism. Patient was seen by EP service upon transfer to [facility] from [place] in April. There was reports of post-conversion pause approximately 6 seconds while at [place] though records were not obtainable for review. [...] kidney disease COPD (chronic obstructive pulmonary disease) ([facility]) DM type 2 (diabetes mellitus, type 2) ([facility]) HTN (hypertension) Hyperlipidemia 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 ([facility]) 09/03/2021 Hypothyroid KELECHI (obstructive sleep apnea) No [...] Reorder IMPRESSIONS/PLAN 1. PAF (paroxysmal 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) ([facility]) - amiodarone (PACERONE) 200 mg tablet; Take [...] PCP: RASHAD MERCHANT Referring Physician: RASHAD Cabrera [address] [facility] [place] [address] RASHAD Duff 07/30/23 1322 documented in this encounter [facility] 07-30-2023 History of Presen t illness Narrative 15 minute ehzu-fe-tter follow-up anticoagulation appointment. INR performed in office [...] RPH 07/30/23 1153 documented in this encounter [facility] 07-29-2023 Miscellaneous Notes Called patient to remind them to bring their most current copy of their medication list with them to their appt. Patient verbalizes understanding. documented in this encounter [facility] 07-29-2023 Telephone encounter Note Called patient to remind them to bring their most current copy of their medication list with them to their appt. Patient verbalizes understanding. [facility] 07-21-2023 History of Presen t illness Narrative Albuterol refill sent to [facility] per pt request. documented in this encounter [facility] 07-18-2023 History of Presen t illness Narrative 15 minute oahb-is-pwom follow-up anticoagulation appointment. INR performed in office [...] bleeding/bleeding that persists or worsens. Alie Schumacher [facility] 07/18/23 1318 documented in this encounter [facility] 07-10-2023 History of Presen t illness Narrative 15 minute jwts-mk-rhma follow-up anticoagulation appointment. INR performed in office per protocol. INR 1.4 (goal range: 2.0-3.0). Patient reports: Taking warfarin dosing as documented. Missed or extra doses of warfarin: No Changes to medications: No Changes to lifestyle (diet / alcohol / smoking / activity): YES Taking probiotic daily Patient notes sauerkraut on Friday and ryan richardson yesterday Recent [...] then increase weekly dose to 2.5 mg Sun/e/Th and 1.25 mg AOD. Check INR in 1 week(s). Patient verbalizes understanding of anticoagulant dosing instructions and information discussed. Dosing regimen, counseling, and follow-up appointment were provided to the patient. Patient reminded to call with questions or any medication changes. Patient instructed to seek medical attention if any major bleeding/bleeding that persists or worsens. Alie Schumacher RPH 07/10/23 1328 documented in this encounter [facility] 06-26-2023 History of Presen t illness Narrative 15 minute saco-on-mpps follow-up anticoagulation appointment. INR performed in office [...] RPH 06/26/23 1315 documented in this encounter [facility] 06-17-2023 History of Presen t illness Narrative Margie Donte Martínez Date of visit: 06/17/2023 Date of : 1940 Age: 82 y.o. 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 failure Obstructive sleep apnea syndrome Shortness of breath Abnormal result of cardiovascular function study Class 3 severe obesity in adult ([facility]) Ventricular premature beats 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 ([facility]) PAF (paroxysmal 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) ([facility]) Sinus pause Allergies Allergen Reactions Janeth Inhibitors [...] 1 puff before bedtime. 60 each 6 FREERAREFORMYLE KUSUM 2 SENSOR kit USE DIRECTED CHANGE [...] monitor which she is going to wear tonight. She is on long-term oxygen she is [...] kidney disease COPD (chronic obstructive pulmonary disease) ([facility]) DM type 2 (diabetes mellitus, type 2) ([facility]) HTN (hypertension) Hyperlipidemia 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 ([facility]) 09/03/2021 Hypothyroid KELECHI (obstructive sleep apnea) No [...] RASHAD MERCHANT Referring Physician: RASHAD Cabrera [address] [place] [address] documented in this encounter [facility] 06-17-2023 History of Presen t illness Narrative 15 minute fmlt-uv-htdt follow-up anticoagulation appointment. INR performed in office [...] RPH 06/17/23 1232 documented in this encounter [facility] 06-16-2023 Miscellaneous Notes Called patient to remind them to bring their most current copy of their medication list with them to their appt. Patient verbalizes understanding. documented in this encounter [facility] 06-16-2023 Telephone encounter Note Called patient to remind them to bring their most current copy of their medication list with them to their appt. Patient verbalizes understanding. [facility] 06-10-2023 History of Presen t illness Narrative 15 minute fcmu-yx-gsyn follow-up anticoagulation appointment. INR performed in office [...] instructed to decrease to warfarin 2.5 mg Fri/e/ and 1.25 mg AOD. Check INR in 1 week(s). Patient verbalizes understanding of anticoagulant dosing instructions and information discussed. Dosing regimen, counseling, and follow-up appointment were provided to the patient. Patient reminded to call with questions or any medication changes. Patient instructed to seek medical attention if any major bleeding/bleeding that persists or worsens. Alie Schumacher RPH 06/10/23 1428 documented in this encounter [facility] 06-05-2023 History of Presen t illness Narrative 15 minute qras-zy-sewu follow-up anticoagulation appointment. INR performed in office [...] RPH 06/05/23 1132 documented in this encounter [facility] 06-03-2023 Evaluation note Encounter Date Diagnosis Assessment Notes May, Edema (ICD-10 - R60.9) [facility] Other 01-15-2024 History of Present illness Narrative* Alie Schumacher [facility] - 06/02/2023 1:15 PM EST 15 minute jova-qv-ohpe follow-up anticoagulation appointment. INR performed in office [...] bleeding/bleeding that persists or worsens. Alie Schumacher [facility] 06/02/23 1424 [facility] History of Present illness Narrative* Tr Jimenez, 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-FRUIT PICKER - 05/28/2023 1:00 PM EST Margie Martínez Date of visit: 05/28/2023 Date of : 1940 Age: 82 y.o. 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 [employer] 2 SENSOR kit USE DIRECTED CHANGE EVERY [...] states that she was hospitalized initially at [place] for symptomatic 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. Upon resolution, she was discharged home though recurrent episodes warranted repeat visit. She was then seen at [facility] where she had episodes of conversion pauses reported. She was transferred then to [facility] evaluated by EP team. Patient was [...] kidney disease COPD (chronic obstructive pulmonary disease) ([facility]) DM type 2 (diabetes mellitus, type 2) ([facility]) HTN (hypertension) Hyperlipidemia 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 ([facility]) 09/03/2021 Hypothyroid KELECHI (obstructive sleep [...] tablet IMPRESSIONS/PLAN 1. PAF (paroxysmal 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) ([facility]) - POCT EKG - Wireless Telemetry (In Office); Future 2. Ventricular premature beats - POCT EKG 3. Sinus pause - Wireless Telemetry (In Office); Future 4. 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 Patient verbalizes understanding. [facility] Telephone encounter Note* Telephone Encounter - Elza Schilling CMA - 05/27/2023 9:42 AM EST Called patient to remind them to bring their most current copy of their medication list with them to their appt. Patient verbalizes understanding. [facility]01-08-2024 History of Present illness Narrative* Alie Schumacher, [facility] - 05/26/2023 1:45 PM EST 15 minute osys-au-aoqe follow-up anticoagulation appointment. INR performed in office [...] prescription needed: YES- 2.5 mg tab to [facility] Seen referring provider in the last year Duration of therapy reviewed Assessment: INR remains slightly elevated, but improved from previous week. Patient has taken 17.5 mg in the past 7 days. We will further reduce weekly dose by 7% (16.25 mg weekly). Patient is unableto nut picker new script until Friday, therefore instructed [...] that persists or worsens. Alie Schumacher RPH 05/26/23 1409 documented [facility] History of Present illness Narrative* Aylin Chahal RP - 05/21/2023 11:30 AM EST 30 minute hosu-ul-tqae follow-up anticoagulation appointment. INR performed in office [...] Chahal RPH 05/21/23 1143 [facility]* Encounter Date Diagnosis Assessment Notes Treatment Notes Treatment Clinical Notes Apr, Nephritis (ICD-10 - N05.9) [facility] Other [id number] Evaluation note* Encounter Date Diagnosis Assessment Notes [...] check iron, folate and VB12 storage studies [facility] Other 12-04-2023 Evaluation note* Encounter Date Diagnosis Assessment Notes Treatment Notes Treatment Clinical Notes Apr, Edema (ICD-10 - R60.9) [facility] Other 10-04-2023 Evaluation note* Encounter Date Diagnosis [...] hypertension material was printed on arb Feb, FPC current use of insulin (ICD-10 - Z79.4) Feb, Vitamin B 12 deficiency (ICD-10 - E53.8) 09/08 b12 345 at target Feb, Albuminuria (ICD-10 - R80.9) Protein, urine material was printed Reviewed importance of glucose/bp control to prevent further nephropathy. Keep f/u with nephrology Feb, BMI 40.0-44.9, adult (ICD-10 - Z68.41) [facility] Other 09-27-2023 Evaluation note* Encounter Date Diagnosis [...] a computer on the screen. Pt contacted [employer] for reader replacement. Pt also brought in new reader. New reader set up with pt. Instructed pt to send old reader back to [employer]. Pt states she will send old reader [...] spent on education by Rangel CANTU, RN [facility] Other 06-06-2023 Evaluation note* Encounter Date Diagnosis [...] Oct, Hyperlipidemia (ICD-10 - E78.5) On statin 06 Richy, 2023 BMI 50.0-59.9, adult (ICD-10 - Z68.43) Importance of weight loss and its relation to edema/lymphedema, arthritis and sleep apnea has been addressed. 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 Will add aldactone On Bumex for volume management Avoid NSAIDs [facility] [facility] Other 04-03-2023 Evaluation note* Encounter Date Diagnosis Assessment Notes Treatment Notes Treatment Clinical Notes Aug, Dietary counseling and surveillance (ICD-10 - Z71.3) Maintaining a healthful weight material was printed see above Aug, Type 2 diabetes mellitus (ICD-10 - E11.9) Type 2 diabetes material was printed 1. Controlled, Type 2 diabetes with A1c 6.5%. 2. Blood glucose levels stable. According to [employer] 2 cgm download 08/06/2022-08/19/2022 Avg glucose 129. [...] hypertension material was printed on arb Aug, FPC current use of insulin (ICD-10 - Z79.4) Aug, Vitamin B 12 deficiency (ICD-10 - E53.8) 09/08 b12 345 at target Aug, Albuminuria (ICD-10 - R80.9) Protein, urine material was printed Reviewed importance of glucose/bp control to prevent further nephropathy. Keep f/u with nephrology Aug, BMI 39.0-39.9,adult (ICD-10 - Z68.39) 11 pound weight loss from last visit, continue with weight loss efforts [employer] Other 10-12-2022 Evaluation note* Encounter Date Diagnosis Assessment Notes Treatment Notes Treatment Clinical Notes Feb, Dietary counseling and surveillance (ICD-10 - Z71.3) Maintaining a healthful weight material was printed see above Feb, Type 2 diabetes mellitus (ICD-10 - E11.9) Type 2 diabetes material was printed 1. Controlled, Type 2 diabetes with A1c of 6.1% 2. Blood glucose levels stable. According to [employer]ek[employer] 2 cgm download 02/14/2022-02/28/20 22 Avg glucose [...] hypertension material was printed on arb Feb, [facility] current use of insulin (ICD-10 - Z79.4) [...] E11.649) Hypoglycemia material was printed see above [employer] Other 09-12-2022 Evaluation note* Encounter Date Diagnosis Assessment Notes Treatment Notes Treatment Clinical Notes Jan, Edema (ICD-10 - R60.9) [employer] Other 08-24-2022 Evaluation note* Encounter Date Diagnosis Assessment Notes Treatment Notes Treatment Clinical Notes Dec, Type 2 diabetes mellitus with diabetic chronic kidney disease (ICD-10 - E11.22) Dec, Type 2 diabetes mellitus (ICD-10 - E11.9) [employer] Other 06-17-2022 Evaluation note* Encounter Date Diagnosis Assessment Notes Treatment Notes Treatment Clinical Notes Oct, Vitamin B 12 deficiency (ICD-10 - E53.8) [employer] Other 06-07-2022 Evaluation note* Encounter Date Diagnosis [...] arthritis and sleep apnea has been addressed. [employer] Other 06-06-2022 Evaluation note* Encounter Date Diagnosis Assessment Notes Treatment Notes Treatment Clinical Notes Oct, Type 2 diabetes mellitus with diabetic chronic kidney disease (ICD-10 - E11.22) [employer] Other 04-25-2022 Evaluation note* Encounter Date Diagnosis Assessment Notes Treatment Notes Treatment Clinical Notes Aug, Type 2 diabetes mellitus with diabetic chronic kidney disease (ICD-10 - E11.22) [employer] Other 01-05-2022 Evaluation note* Encounter Date Diagnosis Assessment Notes Treatment Notes Treatment Clinical Notes May, Dietary counseling and surveillance (ICD-10 - Z71.3) Maintaining a healthful weight material was printed see above May, Type 2 diabetes mellitus (ICD-10 - E11.9) Type 2 diabetes material was printed 1. Controlled, Type 2 diabetes with A1c of 5.7% 2. Blood glucose levels stable. According to [employer] 2 cgm download 05/10/2021-05/23/2021 Avg glucose 128. 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 (ICD-10 - Z79.4) [...] E11.649) Hypoglycemia material was printed see above [employer] Other 01-17-2021 History general Narrative - Reported* [...] History SEE ABOVE Hospitalization History COPD 07/08 [employer] Other [employer] noteNo InformationNort [employer] Other [employer] note* Diagnosis PAF (paroxysmal 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) ([facility] Primary Atrial fibrillation documented in this encounter [facility]* Diagnosis PAF (paroxysmal 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) ([facility] Primary Atrial fibrillation documented in this encounter [facility]* Diagnosis PAF (paroxysmal 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) ([facility])- Primary Atrial fibrillation Ventricular premature beats Other premature beats Sinus pause Benign hypertensive heart disease without congestive heart failure Benign hypertensive heart disease without heart failure [facility] current use of amiodarone [facility] Diagnosis PAF (paroxysmal 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) ([facility] Primary Atrial fibrillation documented in this encounter [facility]* Diagnosis PAF (paroxysmal 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) ([facility] Primary Atrial fibrillation documented in this encounter [facility]* Diagnosis PAF (paroxysmal 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) ([facility] Primary Atrial fibrillation Benign hypertensive heart disease without congestive heart failure Benign hypertensive heart disease without heart failure 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 ([facility] Shortness of breath COPD with acute exacerbation ([facility]) documented in this encounter [facility]* Diagnosis PAF (paroxysmal 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) ([facility] Primary Atrial fibrillation documented in this encounter [facility] noteNo assessment information available [facility] Work Phone: Evaluation note* Diagnosis PAF (paroxysmal 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) [place] Primary Atrial fibrillation documented in this encounter [facility]* Diagnosis Shortness of breath Chronic obstructive pulmonary disease, unspecified COPD type ([facility] documented in this encounter [facility]* Diagnosis PAF (paroxysmal 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) ([facility] Primary Atrial fibrillation Hyperlipidemia, unspecified hyperlipidemia type Benign hypertensive heart disease without congestive heart failure Benign hypertensive heart disease without heart failure documented in this encounter [facility]* Diagnosis Onset Date Resolution Status Anemia acute BMI 50.0-59.9, adult acute Edema acute Hyperlipidemia acute [id number] acute Stage 3b chronic kidney disease (CKD) acute Type 2 diabetes mellitus wit h diabetic chronic kidney disease acute [facility] Work Phone: Evaluation note* Diagnosis Onset Date Resolution Status Anemia acute BMI 50.0-59.9, adult acute Edema acute Hyperlipidemia acute [id number] acute Stage 3b chronic kidney disease (CKD) acute Type 2 diabetes mellitus wit h diabetic chronic kidney disease acute Diabetes acute Dietary counseling and surveillance acute HTN (hypertension) acute Hyperlipidemia acute Vitamin B 12 deficiency acut e [facility] Work Phone: Evaluation note* Diagnosis Onset Date Resolution Status Anemia acute BMI 50.0-59.9, adult acute Edema acute Hyperlipidemia acute [id number] acute Stage 3b chronic kidney disease (CKD) acute Type 2 diabetes mellitus wit h diabetic chronic kidney disease acute BMI 40.0-44.9, adult acute Diabetes acute Dietary counseling and surveillance acute HTN (hypertension) acute Hyperlipidemia acute Vitamin B 12 deficiency acut e [facility] Work Phone: Evaluation note* Diagnosis Onset Date Resolution Status Anemia acute BMI 50.0-59.9, adult acute Edema acute Hyperlipidemia acute [id number] acute Stage 3b chronic kidney disease (CKD) acute Type 2 diabetes mellitus wit h diabetic chronic kidney disease acute BMI 40.0-44.9, adult acute Diabetes acute Dietary counseling and surveillance acute HTN (hypertension) acute Hyperlipidemia acute Vitamin B 12 deficiency acut e Anemia acute Edema acute Fibrillary glomerulonephritis acute Hyperparathyroidism acute [id number] acute Stage 3b chronic kidney disease (CKD) acute Type 2 diabetes mellitus wit h diabetic chronic kidney disease acute [facility] Work Phone: Evaluation note* Diagnosis Onset Date Resolution Status Anemia acute BMI 50.0-59.9, adult acute Edema acute Hyperlipidemia acute [id number] acute Stage 3b chronic kidney disease (CKD) acute Type 2 diabetes mellitus wit h diabetic chronic kidney disease acute BMI 40.0-44.9, adult acute Diabetes acute Dietary counseling and surveillance acute HTN (hypertension) acute Hyperlipidemia acute Vitamin B 12 deficiency acut e Anemia acute Edema acute Fibrillary glomerulonephritis acute Hyperparathyroidism acute [id number] acute Stage 3b chronic kidney disease (CKD) acute Type 2 diabetes mellitus wit h diabetic chronic kidney disease acute Anemia acute Edema acute Fibrillary glomerulonephritis acute Hyperparathyroidism acute [id number] acute Stage 3b chronic kidney disease (CKD) acute Type 2 diabetes mellitus wit h diabetic chronic kidney disease acute [facility] Work Phone: Evaluation note* Diagnosis Onset Date Resolution Status Anemia acute BMI 50.0-59.9, adult acute Edema acute Hyperlipidemia acute [id number] acute Stage 3b chronic kidney disease (CKD) acute Type 2 diabetes mellitus wit h diabetic chronic kidney disease acute BMI 40.0-44.9, adult acute Diabetes acute Dietary counseling and surveillance acute HTN (hypertension) acute Hyperlipidemia acute Vitamin B 12 deficiency acut e Anemia acute Edema acute Fibrillary glomerulonephritis acute Hyperparathyroidism acute [id number] acute Stage 3b chronic kidney disease (CKD) acute Type 2 diabetes mellitus wit h diabetic chronic kidney disease acute Anemia acute Edema acute Fibrillary glomerulonephritis acute Hyperparathyroidism acute [id number] acute Stage 3b chronic kidney disease (CKD) acute Type 2 diabetes mellitus wit h diabetic chronic kidney disease acute Anemia acute Edema acute Fibrillary glomerulonephritis acute Hyperparathyroidism acute [id number] acute Stage 3b chronic kidney disease (CKD) acute Type 2 diabetes mellitus wit h diabetic chronic kidney disease acute [facility] Work Phone: Evaluation note* Diagnosis Onset Date Resolution Status Anemia acute BMI 50.0-59.9, adult acute Edema acute Hyperlipidemia acute [id number] acute Stage 3b chronic kidney disease (CKD) acute Type 2 diabetes mellitus wit h diabetic chronic kidney disease acute BMI 40.0-44.9, adult acute Diabetes acute Dietary counseling and surveillance acute HTN (hypertension) acute Hyperlipidemia acute Vitamin B 12 deficiency acut e Anemia acute Edema acute Fibrillary glomerulonephritis acute Hyperparathyroidism acute [id number] acute Stage 3b chronic kidney disease (CKD) acute Type 2 diabetes mellitus wit h diabetic chronic kidney disease acute Anemia acute Edema acute Fibrillary glomerulonephritis acute Hyperparathyroidism acute [id number] acute Stage 3b chronic kidney disease (CKD) acute Type 2 diabetes mellitus wit h diabetic chronic kidney disease acute Anemia acute Edema acute Fibrillary glomerulonephritis acute Hyperparathyroidism acute [id number] acute Stage 3b chronic kidney disease (CKD) acute Type 2 diabetes mellitus wit h diabetic chronic kidney disease acute Anemia acute Edema acute Fibrillary glomerulonephritis acute Hyperkalemia acute Hyperparathyroidism acute [id number] acute Stage 3b chronic kidney disease (CKD) acute Type 2 diabetes mellitus wit h diabetic chronic kidney disease acute [facility] Work Phone: Evaluation note* Diagnosis Onset Date Resolution Status BMI 40.0-44.9, adult acute Diabetes acute Dietary counseling and surveillance acute HTN (hypertension) acute Hyperlipidemia acute Vitamin B 12 deficiency acut e Anemia acute Edema acute Fibrillary glomerulonephritis acute Hyperparathyroidism acute [id number] acute Stage 3b chronic kidney disease (CKD) acute Type 2 diabetes mellitus wit h diabetic chronic kidney disease acute Anemia acute Edema acute Fibrillary glomerulonephritis acute Hyperparathyroidism acute [id number] acute Stage 3b chronic kidney disease (CKD) acute Type 2 diabetes mellitus wit h diabetic chronic kidney disease acute Anemia acute Edema acute Fibrillary glomerulonephritis acute Hyperparathyroidism acute [id number] acute Stage 3b chronic kidney disease (CKD) acute Type 2 diabetes mellitus wit h diabetic chronic kidney disease acute Anemia acute Edema acute Fibrillary glomerulonephritis acute Hyperkalemia acute Hyperparathyroidism acute [id number] acute Stage 3b chronic kidney disease (CKD) acute Type 2 diabetes mellitus wit h diabetic chronic kidney disease acute Anemia acute Edema acute Fibrillary glomerulonephritis acute Hyperkalemia acute Hyperparathyroidism acute [id number] acute Stage 3b chronic kidney disease (CKD) acute Type 2 diabetes mellitus wit h diabetic chronic kidney disease acute [facility] Work Phone: Evaluation note* Diagnosis Onset Date Resolution Status Anemia acute Edema acute Fibrillary glomerulonephritis acute Hyperparathyroidism acute [id number] acute Stage 3b chronic kidney disease (CKD) acute Type 2 diabetes mellitus wit h diabetic chronic kidney disease acute Anemia acute Edema acute Fibrillary glomerulonephritis acute Hyperparathyroidism acute [id number] acute Stage 3b chronic kidney disease (CKD) acute Type 2 diabetes mellitus wit h diabetic chronic kidney disease acute Anemia acute Edema acute Fibrillary glomerulonephritis acute Hyperparathyroidism acute [id number] acute Stage 3b chronic kidney disease (CKD) acute Type 2 diabetes mellitus wit h diabetic chronic kidney disease acute Anemia acute Edema acute Fibrillary glomerulonephritis acute Hyperkalemia acute Hyperparathyroidism acute [id number] acute Stage 3b chronic kidney disease (CKD) acute Type 2 diabetes mellitus wit h diabetic chronic kidney disease acute Anemia acute Edema acute Fibrillary glomerulonephritis acute Hyperkalemia acute Hyperparathyroidism acute [id number] acute Stage 3b chronic kidney disease (CKD) acute Type 2 diabetes mellitus wit h diabetic chronic kidney disease acute BMI 40.0-44.9, adult acute Diabetes acute Dietary counseling and surveillance acute HTN (hypertension) acute Hyperlipidemia acute Vitamin B 12 deficiency acut e [facility] Work Phone: Evaluation note* Diagnosis Onset Date Resolution Status Anemia acute Edema acute Fibrillary glomerulonephritis acute Hyperparathyroidism acute [id number] acute Stage 3b chronic kidney disease (CKD) acute Type 2 diabetes mellitus wit h diabetic chronic kidney disease acute Anemia acute Edema acute Fibrillary glomerulonephritis acute Hyperparathyroidism acute [id number] acute Stage 3b chronic kidney disease (CKD) acute Type 2 diabetes mellitus wit h diabetic chronic kidney disease acute Anemia acute Edema acute Fibrillary glomerulonephritis acute Hyperkalemia acute Hyperparathyroidism acute [id number] acute Stage 3b chronic kidney disease (CKD) acute Type 2 diabetes mellitus wit h diabetic chronic kidney disease acute Anemia acute Edema acute Fibrillary glomerulonephritis acute Hyperkalemia acute Hyperparathyroidism acute [id number] acute Stage 3b chronic kidney disease (CKD) acute Type 2 diabetes mellitus wit h diabetic chronic kidney disease acute BMI 40.0-44.9, adult acute Diabetes acute Dietary counseling and surveillance acute HTN (hypertension) acute Hyperlipidemia acute Vitamin B 12 deficiency acut e Anemia acute Stage 3a chronic kidney disease (CKD) acute [facility] Work Phone: Evaluation note* Diagnosis Onset Date Resolution Status Anemia acute Edema acute Fibrillary glomerulonephritis acute Hyperparathyroidism acute [id number] acute Stage 3b chronic kidney disease (CKD) acute Type 2 diabetes mellitus wit h diabetic chronic kidney disease acute Anemia acute Edema acute Fibrillary glomerulonephritis acute Hyperkalemia acute Hyperparathyroidism acute [id number] acute Stage 3b chronic kidney disease (CKD) acute Type 2 diabetes mellitus wit h diabetic chronic kidney disease acute Anemia acute Edema acute Fibrillary glomerulonephritis acute Hyperkalemia acute Hyperparathyroidism acute [id number] acute Stage 3b chronic kidney disease (CKD) acute Type 2 diabetes mellitus wit h diabetic chronic kidney disease acute BMI 40.0-44.9, adult acute Diabetes acute Dietary counseling and surveillance acute HTN (hypertension) acute Hyperlipidemia acute Vitamin B 12 deficiency acut e Anemia acute Stage 3a chronic kidney disease (CKD) acute [facility] Work Phone: Evaluation note* Diagnosis Onset Date Resolution Status Anemia acute Edema acute Fibrillary glomerulonephritis acute Hyperparathyroidism acute [id number] acute Stage 3b chronic kidney disease (CKD) acute Type 2 diabetes mellitus wit h diabetic chronic kidney disease acute Anemia acute Edema acute Fibrillary glomerulonephritis acute Hyperkalemia acute Hyperparathyroidism acute [id number] acute Stage 3b chronic kidney disease (CKD) acute Type 2 diabetes mellitus wit h diabetic chronic kidney disease acute Anemia acute Edema acute Fibrillary glomerulonephritis acute Hyperkalemia acute Hyperparathyroidism acute [id number] acute Stage 3b chronic kidney disease (CKD) [...] Stage 3a chronic kidney disease (CKD) acute [facility] Work Phone: Evaluation note* Diagnosis Onset Date Resolution Status Anemia acute Edema acute Fibrillary glomerulonephritis acute Hyperkalemia acute Hyperparathyroidism acute [id number] acute Stage 3b chronic kidney disease (CKD) acute Type 2 diabetes mellitus wit h diabetic chronic kidney disease acute Anemia acute Edema acute Fibrillary glomerulonephritis acute Hyperkalemia acute Hyperparathyroidism acute [id number] acute Stage 3b chronic kidney disease (CKD) [...] Fibrillary glomerulonephritis acute Hyperkalemia acute Hyperparathyroidism acute [id number] acute Stage 3b chronic kidney disease (CKD) acute Type 2 diabetes mellitus wit h diabetic chronic kidney disease acute [facility] Work Phone: Evaluation note* Diagnosis Onset Date Resolution Status Anemia acute Edema acute Fibrillary glomerulonephritis acute Hyperkalemia acute Hyperparathyroidism acute [id number] acute Stage 3b chronic kidney disease (CKD) [...] Fibrillary glomerulonephritis acute Hyperkalemia acute Hyperparathyroidism acute [id number] acute Stage 3b chronic kidney disease (CKD) acute Type 2 diabetes mellitus wit h diabetic chronic kidney disease acute [facility] Work Phone: Evaluation note* Diagnosis [...] Fibrillary glomerulonephritis acute Hyperkalemia acute Hyperparathyroidism acute [id number] acute Stage 3b chronic kidney disease (CKD) acute Type 2 diabetes mellitus wit h diabetic chronic kidney disease acute Anemia acute Anemia of renal disease acut e 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 acute [id number] [facility] Work Phone: Evaluation note* Diagnosis Dermatophytosis of nail- Primary Dystrophic nail Other specified disease of nail Pain around toenail, right foot Pain around toenail, left foot [facility] instructions[facility] Orders* AMB POC INR Time Frame: 2 Months, Location: Determined By Patient [facility] Work Phone: InstructionsNot on filedocumented [...] Referral Specialty Diagnoses / Procedures Referred By Contpriscilla t Referred To Contact Diagnoses PAF (paroxysmal 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) ([facility]) Sinus pause Procedures Wireless Telemetry (In Office) 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, 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[employer] [address] [place] [address] Referral ID Status Reason Start Date Expiration Date V isits Requested Visits Authorized [id number] Pending Review 05/28/2023 05/27/2024 1 1 Chief Complaint and Reason for Visit Chief Complaint Renal 6 Month Follow Up Chief Complaint RENAL 3 month Follow up Reason for Visit Anemia BMI 50.0-59.9, adult Edema Hyperlipidemia [id number] 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 Chief Complaint RENAL 3 month Follow up kusum reader Reason for Visit Anemia BMI 50.0-59.9, adult Edema Hyperlipidemia [id number] 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 Diabetes Dietary counseling and surveillance HTN (hypertension) Hyperlipidemia Vitamin B 12 deficiency Chief Complaint RENAL 3 month Follow up kusum reader N18.32 R60.9 D64.9 Z68.43 E78.5 E11.22 I12.9 Reason for Visit Anemia BMI 50.0-59.9, adult Edema Hyperlipidemia [id number] 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 BMI 40.0-44.9, adult Diabetes Dietary counseling and surveillance HTN (hypertension) Hyperlipidemia Vitamin B 12 deficiency Chief Complaint RENAL 3 month Follow up kusum reader N18.32 R60.9 D64.9 Z68.43 E78.5 E11.22 I12.9 RENAL F/U Reason for Visit Anemia BMI 50.0-59.9, adult Edema Hyperlipidemia [id number] 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 BMI 40.0-44.9, adult Diabetes Dietary counseling and surveillance HTN (hypertension) Hyperlipidemia Vitamin B 12 deficiency Anemia Edema Fibrillary glomerulonephritis Hyperparathyroidism [id number] 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 Chief Complaint RENAL 3 month Follow up kusum reader N18.32 R60.9 D64.9 Z68.43 E78.5 E11.22 I12.9 RENAL F/U 3 week f/u Reason for Visit Anemia BMI 50.0-59.9, adult Edema Hyperlipidemia [id number] 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 BMI 40.0-44.9, adult Diabetes Dietary counseling and surveillance HTN (hypertension) Hyperlipidemia Vitamin B 12 deficiency Anemia Edema Fibrillary glomerulonephritis Hyperparathyroidism [id number] 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 Anemia Edema Fibrillary glomerulonephritis Hyperparathyroidism [id number] 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 Chief Complaint RENAL 3 month Follow up kusum reader N18.32 R60.9 D64.9 Z68.43 E78.5 E11.22 I12.9 RENAL F/U 3 week f/u RENAL 2 MONTH F/U Reason for Visit Anemia BMI 50.0-59.9, adult Edema Hyperlipidemia [id number] 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 BMI 40.0-44.9, adult Diabetes Dietary counseling and surveillance HTN (hypertension) Hyperlipidemia Vitamin B 12 deficiency Anemia Edema Fibrillary glomerulonephritis Hyperparathyroidism [id number] 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 Anemia Edema Fibrillary glomerulonephritis Hyperparathyroidism [id number] 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 Anemia Edema Fibrillary glomerulonephritis Hyperparathyroidism [id number] 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 Chief Complaint RENAL 3 month Follow up kusum reader N18.32 R60.9 D64.9 Z68.43 E78.5 E11.22 I12.9 RENAL F/U 3 week f/u RENAL 2 MONTH F/U RENAL 3 WK INJ RETACRIT Reason for Visit Anemia BMI 50.0-59.9, adult Edema Hyperlipidemia [id number] 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 BMI 40.0-44.9, adult Diabetes Dietary counseling and surveillance HTN (hypertension) Hyperlipidemia Vitamin B 12 deficiency Anemia Edema Fibrillary glomerulonephritis Hyperparathyroidism [id number] 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 Anemia Edema Fibrillary glomerulonephritis Hyperparathyroidism [id number] 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 Anemia Edema Fibrillary glomerulonephritis Hyperparathyroidism [id number] 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 Anemia Edema Fibrillary glomerulonephritis Hyperkalemia Hyperparathyroidism [id number] Stage 3b chronic kidney disease (CKD) Type [...] 12 deficiency Anemia Edema Fibrillary glomerulonephritis Hyperparathyroidism [id number] 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 Anemia Edema Fibrillary glomerulonephritis Hyperparathyroidism [id number] 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 Anemia Edema Fibrillary glomerulonephritis Hyperparathyroidism [id number] 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 Anemia Edema Fibrillary glomerulonephritis Hyperkalemia Hyperparathyroidism [id number] 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 Anemia Edema Fibrillary glomerulonephritis Hyperkalemia Hyperparathyroidism [id number] 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 Chief Complaint RENAL F/U 3 week f/u RENAL 2 MONTH F/U RENAL 3 WK INJ RETACRIT RENAL 2 WK INJ / RETACRIT METER Reason for Visit Anemia Edema Fibrillary glomerulonephritis Hyperparathyroidism [id number] 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 Anemia Edema Fibrillary glomerulonephritis Hyperparathyroidism [id number] 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 Anemia Edema Fibrillary glomerulonephritis Hyperparathyroidism [id number] 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 Anemia Edema Fibrillary glomerulonephritis Hyperkalemia Hyperparathyroidism [id number] 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 Anemia Edema Fibrillary glomerulonephritis Hyperkalemia Hyperparathyroidism [id number] Stage 3b chronic kidney disease (CKD) Type [...] for Visit Anemia Edema Fibrillary glomerulonephritis Hyperparathyroidism [id number] 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 Anemia Edema Fibrillary glomerulonephritis Hyperparathyroidism [id number] 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 Anemia Edema Fibrillary glomerulonephritis Hyperkalemia Hyperparathyroidism [id number] 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 Anemia Edema Fibrillary glomerulonephritis Hyperkalemia Hyperparathyroidism [id number] Stage 3b chronic kidney disease (CKD) Type [...] for Visit Anemia Edema Fibrillary glomerulonephritis Hyperparathyroidism [id number] 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 Anemia Edema Fibrillary glomerulonephritis Hyperkalemia Hyperparathyroidism [id number] 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 Anemia Edema Fibrillary glomerulonephritis Hyperkalemia Hyperparathyroidism [id number] Stage 3b chronic kidney disease (CKD) Type [...] for Visit Anemia Edema Fibrillary glomerulonephritis Hyperparathyroidism [id number] 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 Anemia Edema Fibrillary glomerulonephritis Hyperkalemia Hyperparathyroidism [id number] 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 Anemia Edema Fibrillary glomerulonephritis Hyperkalemia Hyperparathyroidism [id number] Stage 3b chronic kidney disease (CKD) Type [...] Visit Anemia Edema Fibrillary glomerulonephritis Hyperkalemia Hyperparathyroidism [id number] 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 Anemia Edema Fibrillary glomerulonephritis Hyperkalemia Hyperparathyroidism [id number] Stage 3b chronic kidney disease (CKD) Type [...] (CKD) Anemia Edema Fibrillary glomerulonephritis Hyperkalemia Hyperparathyroidism [id number] Stage 3b chronic kidney disease (CKD) Type [...] Visit Anemia Edema Fibrillary glomerulonephritis Hyperkalemia Hyperparathyroidism [id number] Stage 3b chronic kidney disease (CKD) Type [...] (CKD) Anemia Edema Fibrillary glomerulonephritis Hyperkalemia Hyperparathyroidism [id number] Stage 3b chronic kidney disease (CKD) Type [...] (CKD) Anemia Edema Fibrillary glomerulonephritis Hyperkalemia Hyperparathyroidism [id number] 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 Anemia Anemia of renal disease 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 INFORMATION SOURCE (unrecogn ized section and content) DATE CREATED AUTHOR 10/27/2022 [facility] DATE CREATED AUTHOR AUTHOR'S ORGANIZ ATION 09/08/2023 [facility] DATE CREATED AUTHOR AUTHOR'S ORGANIZ ATION 01/13/2024 [facility] DATE CREATED AUTHOR AUTHOR'S ORGANIZ ATION 03/05/2024 [facility] DATE CREATED AUTHOR AUTHOR'S ORGANIZ ATION 03/18/2024 [facility] EPIC Care Teams (unrecognized sec tion and content) [...] Jiang Primary Care Provider Active Start: December 11, 2023 End: December 11, 2023 Becca Rodriguez MD Attending Provider Active Start : December 11, 2023 End: December 11, 2023 Team Status: Inactive Member Role Status Dates ALFREDO Jiang Primary Care Provider Active Start: December 30, 2023 End: December 30, 2023 Rin Sarmiento MD Attending Provider Active Star t: December 30, 2023 End: December 30, 2023 Team Status: Active Member Role Status Dates Rin Sarmiento MD Attending Provider Active Star t: January 05, 2024 ALFREDO Jiang Primary Care Provider Active Start: January 05, 2024 Team Status: Inactive Member Role Status Dates ALFREDO Jiang Primary Care Provider Active Start: January 13, 2024 End: January 13, 2024 Rin Sarmiento MD Attending Provider Active Star t: January 13, 2024 End: January 13, 2024 Team Status: Active Member Role Status Andrés Rodriguez MD Attending Provider Active Start : January 20, 2024 Anika Light [employer] FEEDER-C Primary Care Provider Active Start: January 20, 2024 Team Status: Active Member Role Status Andrés Sarmiento MD Attending Provider Active Star t: January 23, 2024 Anika Light [employer]ER-C Primary Care Provider Active Start: January 23, 2024 Team Status: Inactive Member Role Status Dates Anika Light [employer]ER-C Primary Care Provider Active Start: January 27, 2024 End: January 27, 2024 Rin Sarmiento MD Attending Provider Active Star t: January 27, 2024 End: January 27, 2024 Team Status: Active Member Role Status Andrés Sarmiento MD Attending Provider Active Star t: February 03, 2024 Anika Light [employer]ER-C Primary Care Provider Active Start: February 03, 2024 Team Status: Inactive Member Role Status Andrés Light [employer]ER-C Primary Care Provider Active Start: February 10, 2024 End: February 10, 2024 Rin Sarmiento MD Attending Provider Active Star t: February 10, 2024 End: February 10, 2024 Team Status: Active Member Role Status Andrés Sarmiento MD Attending Provider Active Star t: February 23, 2024 Anika Light [employer]-C Primary Care Provider Active Start: February 23, 2024 Team Status: Inactive Member Role Status Andrés Light [employer]ER-C Primary Care Provider Active Start: March 02, 2024 End: March 02, 2024 Rin Sarmiento MD Attending Provider Active Star t: March 02, 2024 End: March 02, 2024 Team Status: Active Member Role Status Andrés Light [employer]ER-C Primary Care Provider Active Start: October 30, 2023 Rin Sarmiento MD Attending Provider Active Star t: October 30, 2023 Team Status: Inactive Member Role Status Andrés Light [employer]ER-C Primary Care Provider Active Start: November 05, 2023 End: November 05, 2023 Rin Sarmiento MD Attending Provider Active Star t: November 05, 2023 End: November 05, 2023 Team Status: Active Member Role Status Dates Anika Light [employer]ER-C Primary Care Provider Active Start: November 13, 2023 Rin Sarmiento MD Attending Provider Active Star t: November 13, 2023 Team Status: Inactive Member Role Status Dates Anika Light [employer]ER-C Primary Care Provider Active Start: November 18, 2023 End: November 18, 2023 Rin Sarmiento MD Attending Provider Active Star t: November 18, 2023 End: November 18, 2023 Team Status: Active Member Role Status Dates iRn Sarmiento MD Attending Provider Active Star t: November 27, 2023 Anika Light [employer]ER-C Primary Care Provider Active Start: November 27, 2023 Team Status: Inactive Member Role Status Dates Anika Light [employer]ER-C Primary Care Provider Active Start: October 15, 2023 End: October 15, 2023 Rin Sarmiento MD Attending Provider Active Star t: October 15, 2023 End: October 15, 2023 Team Status: Active Member Role Status Dates Anika Light [employer]ER-C Primary Care Provider Active Start: September 16, 2023 Rin Sarmiento MD Attending Provider Active Star t: September 16, 2023 Team Status: Inactive Member Role Status Andrés Light [employer]EDER-C Primary Care Provider Active Start: September 23, 2023 End: September 23, 2023 Rin Sarmiento MD Attending Provider Active Star t: September 23, 2023 End: September 23, 2023 Team Status: Active Member Role Status Andrés Sarmiento MD Attending Provider Active Star t: October 07, 2023 Anika Light [employer]ER-C Primary Care Provider Active Start: October 07, 2023 Team Status: Inactive Member Role Status Dates Anika Light [employer]EDER-C Primary Care Provider Active Start: August 13, 2023 End: August 13, 2023 Rin Sarmiento MD Attending Provider Active Star t: August 13, 2023 End: August 13, 2023 Team Status: Inactive Member Role Status Dates Anika Light [employer]ER-C Primary Care Provider Active Start: August 20, [...] Light NP-C Primary Care Provider Active Start: August 01, 2023 Rin Sarmiento MD Attending Provider Active Star t: August 01, 2023 Team Status: Active Member Role Status Dates Anika Light NP-Thuy Primary Care Provider Active Start: August 05, 2023 Rin Sarmiento MD Attending Provider Active Star t: August 05, 2023 Strategic Consultant Relationship Specialty Start Date End Date Anika Light APRN-CNP [address] [place] [address] PCP - General Family Medicine 04/29/23 Strategic Consultant Relationship Specialty Start Date End Date Anika Light APRN-CNP [address] [place] [address] PCP - General Family Medicine 04/29/23 Strategic Consultant Relationship Specialty Start Date End Date Anika Light APRN-CNP [address] [place] [address] PCP - General Family Medicine 04/29/23 Strategic Consultant Relationship Specialty Start Date End Date Anika Light APRN-FRUIT PICKER [address] [facility] [place] [address] PCP - General Family Medicine 04/29/23 Strategic Consultant Relationship Specialty Start Date End Date Anika Light APRN-CNP [address] [facility], [place] [address] PCP - General Family Medicine 04/29/23 Strategic Consultant Relationship Specialty Start Date End Date Anika Light APRN-CNP [address] [facility], [place] [address] PCP - General Family Medicine 04/29/23 Strategic Consultant Relationship Specialty Start Date End Date Anika Light APRN-FRUIT PICKER [address] [facility], [place] [address] PCP - General Family Medicine 04/29/23 Team Status: Inactive Member Role Status Dates Rin Sarmiento MD Attending Provider Active Star t: April 22, 2023 End: April 22, 2023 Strategic Consultant Relationship Specialty Start Date End Date Anika Light APRN-CNP [address] [facility], [place] [address] PCP - General Family Medicine 04/29/23 Strategic Consultant Relationship Specialty Start Date End Date Anika Light APRN-CNP [address] [facility], [place] [address] PCP - General Family Medicine 04/29/23 Strategic Consultant Relationship Specialty Start Date End Date Cole Light MD [address] [place] [address] PCP - General Family Medicine 11/20/22 Strategic Consultant Relationship Specialty Start Date End Date Cole Light MD [address] [place] [address] PCP - General Family Medicine 11/20/22 Goals [...] BE BASED ON THE PRIMARY CLINICAL RECORDS. [employer] provides no warranty or guarantee of the accuracy or completeness of information in this document.
--- NOTE | 2024-03-21 04:36 | ED_ITS ---
HPI HPI - General Adult General Chief complaint: Extremity Problem, Nontraumatic Stated complaint: LE PAIN Time Seen by Provider: 03/21/24 04:13 Source: patient Mode of arrival: Wheelchair Limitations: no limitations History of Present Illness HPI narrative: 83-year-old female to the emergency department with chief complaint of bruising to her left foot. Patient reports that she does not remember or injure. They noticed some bruising and some discomfort that started early in the evening. This worsened throughout the night. She is on Coumadin. Last INR was checked sometime in January. Related Data Home Medications ?Medication ?Instructions ?Recorded ?Confirmed albuterol sulfate 90 mcg/actuation 2 puff inhalation Q4H PRN 05/08/23 05/08/23 aerosol inhaler shortness of breath or wheezing alendronate 70 mg tablet 70 mg PO .weekly 05/08/23 05/08/23 apixaban 5 mg tablet (Eliquis) 5 mg PO Q12H 05/08/23 05/08/23 budesonide-formoterol HFA 160 1 puff inhalation Q12H 05/08/23 05/08/23 mcg-4.5 mcg/actuation aerosol inhaler bumetanide 1 mg tablet 1 mg PO DAILY 05/08/23 05/08/23 carvedilol 25 mg tablet 25 mg PO Q12H 05/08/23 05/08/23 cholecalciferol (vitamin D3) 50 2,000 unit PO DAILY 05/08/23 05/08/23 mcg (2,000 unit) capsule gemfibrozil 600 mg tablet 600 mg PO BID 05/08/23 05/08/23 hydralazine 50 mg tablet 50 mg PO Q12H 05/08/23 05/08/23 ipratropium 0.5 mg-albuterol 3 mg 1.5 ml inhalation Q4H PRN 05/08/23 05/08/23 (2.5 mg base)/3 mL nebulization shortness of breath or wheezing soln levothyroxine 100 mcg tablet 100 mcg PO DAILY 05/08/23 05/08/23 (Euthyrox) loratadine 10 mg capsule 10 mg PO DAILY 05/08/23 05/08/23 losartan 100 mg tablet 100 mg PO DAILY 05/08/23 05/08/23 metformin 1,000 mg tablet 1,000 mg PO BID 05/08/23 05/08/23 nifedipine 60 mg tablet,extended 60 mg PO DAILY 05/08/23 05/08/23 release 24 hr omeprazole 20 mg capsule,delayed 20 mg PO DAILY 05/08/23 05/08/23 release rosuvastatin 5 mg tablet 5 mg PO DAILY 05/08/23 05/08/23 spironolactone 25 mg tablet 25 mg PO DAILY 05/08/23 05/08/23 Previous Rx's ?Medication ?Instructions ?Recorded oxycodone-acetaminophen 5 mg-325 1 tab PO Q6H PRN pain 3 days #12 03/21/24 mg tablet (Percocet) tabs Allergies Allergy/AdvReac Type Severity Reaction Status Date / Time Penicillins Allergy Severe Unknown Verified 03/21/24 04:19 Sulfa (Sulfonamide Allergy Severe Unknown Verified 03/21/24 04:19 Antibiotics) sulfamethoxazole (From Allergy Severe Unknown Verified 03/21/24 04:19 Bactrim) trimethoprim (From Bactrim) Allergy Severe Unknown Verified 03/21/24 04:19 Opioid HPI Opioid Management Most Recent Opioid Data: Last Pain Scale 10 03/21/24 05:15 03/21/24 Last ED Pain Assessment 03/21/24 05:15 Last MAR Pain Assessment 03/21/24 06:01 Review of Systems ROS Status of ROS 10 or more systems reviewed and unremark able except as noted in history and below Exam Narrative Exam Narrative: VITALS: I have reviewed the triage vital signs. GENERAL: Well developed, well appearing adult in no acute distress. NEURO: Alert and oriented. Moves all extremities. Face is symmetric and e xpressive. EYES: PERRL. No scleral icterus or conjunctival injection. No discharge. HENT: Normocephalic, atraumatic. Hearing is grossly intact. Nares grossly patent and without discharge. Mucous membranes moist. NECK: No JVD. Patient moves neck without restriction. Left foot: DP and PT pulses are intact. Sensation is intact over the foot. Limb is similar color and temperature the contralateral extremity. There is ecchymosis about the anterior surface of the foot. SKIN: Warm and dry. Normal turgor. No rash or lesions appreciated. PSYCH: Mood, affect, and interaction is appropriate to the setting. Constitutional Vital Signs, click to edit/add: Last Vital Signs Temp 97.7 F 03/21/24 04:13 Pulse 84 03/21/24 06:12 Resp 14 03/21/24 06:12 BP 160/88 H 03/21/24 06:12 Pulse Ox 96 03/21/24 06:12 O2 Del Method Room Air 03/21/24 04:13 Course Vital Signs Vital signs: Vital Signs Temperature 97.7 F 03/21/24 04:13 Pulse Rate 76 03/21/24 04:13 Respiratory Rate 20 03/21/24 04:13 Blood Pressure 199/78 H 03/21/24 04:13 Pulse Oximetry 96 03/21/24 04:13 Oxygen Delivery Method Room Air 03/21/24 04:13 Temperature 97.7 F 03/21/24 04:13 Pulse Rate 84 03/21/24 06:12 Respiratory Rate 14 03/21/24 06:12 Blood Pressure 160/88 H 03/21/24 06:12 Pulse Oximetry 96 03/21/24 06:12 Oxygen Delivery Method Room Air 03/21/24 04:13 Medical Decision Making MDM Narrative Medical decision making narrative: 83-year-old anticoagulated female to the emergency department chief complaint of spontaneous bruising to her left foot. Vital stable, the patient is afebrile. Left lower extremity is neurovascularly intact. She has a small hematoma to the top of her foot. Percocet for her discomfort at her request. Del wrap to the foot. We will check her INR. Suspect that she ruptured a superficial vein which is caused the bruising and hematoma. She has no bony point tenderness. Her INR was mildly elevated. I recommended that she skip a single dose of her Coumadin and call her prescriber for further advice regarding her warfarin. Patient with asymptomatic spontaneous bruising to the top of her left foot. No evidence vascular insults or infectious process. Del wrap applied. Return precautions were discussed. She will follow-up with her PCP. Patient was discharged home. Medical Records Medical records reviewed: Yes I reviewed the patient's medical records Lab Data Lab results reviewed: Yes I reviewed the patient's lab results Labs: Lab Results 03/21/24 Range/Units 05:10 PT 31.5 H (9.0-11.6) sec INR 3.35 Discharge Plan Discharge Chief Complaint: Extremity Problem, Nontraumatic Clinical Impression: Hematoma Patient Disposition: Home, Self-Care Time of Disposition Decision: 05:42 Condition: Good Mode of Transportation: Private Vehicle Prescriptions / Home Meds: New oxycodone-acetaminophen [Percocet] 5-325 mg tablet 1 tab PO Q6H PRN (Reason: pain) 3 Days Qty: 12 0RF No Action carvedilol 25 mg tablet 25 mg PO Q12H ipratropium-albuterol 0.5 mg-3 mg(2.5 mg base)/3 mL solution for nebulization 1.5 ml INHALATION Q4H PRN (Reason: shortness of breath or wheezing) alendronate 70 mg tablet 70 mg PO .weekly spironolactone 25 mg tablet 25 mg PO DAILY levothyroxine [Euthyrox] 100 mcg tablet 100 mcg PO DAILY nifedipine 60 mg tablet extended release 24hr 60 mg PO DAILY gemfibrozil 600 mg tablet 600 mg PO BID metformin 1,000 mg tablet 1,000 mg PO BID omeprazole 20 mg capsule,delayed release(DR/EC) 20 mg PO DAILY bumetanide 1 mg tablet 1 mg PO DAILY hydralazine 50 mg tablet 50 mg PO Q12H albuterol sulfate 90 mcg/actuation HFA aerosol inhaler 2 puff INHALATION Q4H PRN (Reason: shortness of breath or wheezing) losartan 100 mg tablet 100 mg PO DAILY rosuvastatin 5 mg tablet 5 mg PO DAILY budesonide-formoterol 160-4.5 mcg/actuation HFA aerosol inhaler 1 puff INHALATION Q12H cholecalciferol (vitamin D3) 50 mcg (2,000 unit) capsule 2,000 unit PO DAILY Eliquis 5 mg tablet 5 mg PO Q12H loratadine 10 mg capsule 10 mg PO DAILY Print Language: Grenadian Instructions: Elevated INR (ED), Hematoma (ED) Additional Instructions: Call the office of your primary care doctor to arrange for follow-up within the above-stated timeframe. Your ED visit was focused on your acute issue and does not replace primary care. You should review your labs, imaging, and diagnoses from this ED visit with your primary care physician. There may be non-emergent/ incidental findings that need further evaluation. You should review your vital signs including blood pressure with your PCP. If you were prescribed medications you should discuss possible side-effects and drug interactions with your pharma cist. Call 911 or go to the nearest Emergency Department if you develop any new or worsening symptoms. Follow-up with your doctor in office this week. Skip 1 dose of Coumadin due to your elevated INR today. Del wrap, elevate. Percocet for breakthrough pain. Referrals: CED HENRY [Primary Care Provider] - 1 week Discharge Date/Time: 03/21/24 06:16
[2024-03-21] MEDS: OXYCODONE HCL/ACETAMINOPHEN 5MG/325MG 1 TAB PO ×2 (05:06→06:01)
[2024-03-21 05:30] LABS: INR 3.35; Prothrombin Time 31.5 sec (9.0-11.6)
[2024-03-21 06:12] VITALS: BP 160/88; PULSE 84; O2SAT 96
== END 2024-03-21 06:16 | disposition home or self-care (01) ==
PROVIDERS: Emergency Provider Student in an Organized Health Care Education/Training Program; PCP Nurse Practitioner Family
DX: S90.32XA Contusion of left foot, initial encounter (principal); Z79.01 Long term (current) use of anticoagulants
CPT/HCPCS: 36415; 85610; 99283

== ENCOUNTER 2024-03-23 16:20 | Outpatient (OUT) | payer MEDICARE, SELFPAY ==
--- NOTE | 2024-03-23 | XR_ITS ---
The [address] [address] Patient Name: JONATHAN HILL MRN: [id number] date: 1940 Sex: F Assigned Patient Location: [facility] Current Patient Location: LAB Accession/Order Number: [id number] Exam Date: 03/23/2024 16:40 Report Date: 03/24/2024 11:31 At the request of: CED HENRY Procedure: XR foot LT 2V PROCEDURE: XR foot LT 2V, XR ankle LT 2V COMPARISON: None. HISTORY: Lt Foot pain M79.672 FINDINGS: BONES:No acute fracture or dislocation. Moderate degenerative changes with joint space narrowing and marginal osteophyte formation. Severe degenerative change first metatarsal-phalangeal joint with [id number] articulation and marginal osteophyte formation. Subchondral cystic changes SOFT TISSUES:Negative. No visible soft tissue swelling. EFFUSION:None visible. OTHER: Vascular calcifications. XR/XR foot LT 2V IMPRESSION: Severe degenerative change first metatarsal-phalangeal joint No acute abnormality Electronically authenticated by: YAQUELIN LESTER Date: 03/24/2024 11:31
--- NOTE | 2024-03-23 | XR_ITS ---
The [address] [address] Patient Name: JONATHAN HILL MRN: [id number] date: 1940 Sex: F Assigned Patient Location: [facility] Current Patient Location: LAB Accession/Order Number: [id number] Exam Date: 03/23/2024 16:40 Report Date: 03/24/2024 11:31 At the request of: CED HENRY Procedure: XR ankle LT 2V PROCEDURE: XR foot LT 2V, XR ankle LT 2V COMPARISON: None. HISTORY: Lt Foot pain M79.672 FINDINGS: BONES:No acute fracture or dislocation. Moderate degenerative changes with joint space narrowing and marginal osteophyte formation. Severe degenerative change first metatarsal-phalangeal joint with [id number] articulation and marginal osteophyte formation. Subchondral cystic changes SOFT TISSUES:Negative. No visible soft tissue swelling. EFFUSION:None visible. OTHER: Vascular calcifications. XR/XR ankle LT 2V IMPRESSION: Severe degenerative change first metatarsal-phalangeal joint No acute abnormality Electronically authenticated by: YAQUELIN LESTER Date: 03/24/2024 11:31
== END 2024-03-23 16:21 | disposition home or self-care (01) ==
PROVIDERS: PCP Nurse Practitioner Family; Visit Provider Nurse Practitioner Family
DX: M79.672 Pain in left foot (principal); M25.572 Pain in left ankle and joints of left foot; M19.072 Primary osteoarthritis, left ankle and foot
CPT/HCPCS: 73600; 73620

== ENCOUNTER 2024-04-13 13:04 | Outpatient (OUT) | payer MEDICARE, SELFPAY ==
[2024-04-13 13:26] LABS: Hematocrit 30.3 % (36.0-48.0); Mean Corpuscular HGB Conc 29.7 g/dL (29.9-35.2); Mean Corpuscular Hemoglobin 29.7 pg (26.7-34.0); Mean Platelet Volume 9.9 fL (9.5-13.5); Platelet Count 223 10^3/uL (150-450); Red Blood Count 3.03 10^6/uL (4.20-5.40); Red Cell Distribution Width 14.5 % (11.0-15.0); White Blood Count 7.1 10^3/uL (4.0-11.0)
[2024-04-13 14:25] LABS: Albumin Level 2.9 g/dL (3.4-5.0); Anion Gap 12.4; BUN Creatinine Ratio 19.8; Calcium 9.5 mg/dL (8.5-10.1); Chloride 106 mmol/L (98-107); Estimated GFR (African America 26 (>=60 mL/min/1.73m^2); Estimated GFR (Non-African Ame 21 (>=60 mL/min/1.73m^2); Glucose 135 mg/dL (74-106); Phosphorus 3.7 mg/dL (2.6-4.7); Potassium 4.4 mmol/L (3.5-5.1); Sodium 146 mmol/L (136-145)
== END 2024-04-13 13:05 | disposition home or self-care (01) ==
LOC: LAB 13:06
PROVIDERS: PCP Nurse Practitioner Family; Visit Provider Internal Medicine Nephrology
DX: N18.4 Chronic kidney disease, stage 4 (severe) (principal); N18.9 Chronic kidney disease, unspecified; D63.1 Anemia in chronic kidney disease
CPT/HCPCS: 36415; 80069; 85027

== ENCOUNTER 2024-04-28 10:33 | Outpatient (OUT) | payer MEDICARE, SELFPAY ==
[2024-04-28 10:58] LABS: Hematocrit 31.4 % (36.0-48.0); Hemoglobin 9.2 g/dL (12.0-16.0); Mean Corpuscular HGB Conc 29.3 g/dL (29.9-35.2); Mean Corpuscular Hemoglobin 29.4 pg (26.7-34.0); Mean Corpuscular Volume 100.3 fL (81.0-99.0); Mean Platelet Volume 9.9 fL (9.5-13.5); Platelet Count 205 10^3/uL (150-450); Red Blood Count 3.13 10^6/uL (4.20-5.40); Red Cell Distribution Width 14.7 % (11.0-15.0)
[2024-04-28 12:51] LABS: Percent Iron Saturation 18.1 %
[2024-04-29 10:10] LABS: Vitamin B12 1140 pg/mL (232-1245)
== END 2024-04-28 10:34 | disposition home or self-care (01) ==
LOC: LAB 10:34
PROVIDERS: PCP Nurse Practitioner Family; Visit Provider Internal Medicine Nephrology
DX: N18.4 Chronic kidney disease, stage 4 (severe) (principal); N18.9 Chronic kidney disease, unspecified; D63.1 Anemia in chronic kidney disease
CPT/HCPCS: 36415; 82607; 82728; 82746; 83540; 83550; 85027

== ENCOUNTER 2024-05-25 11:09 | Outpatient (OUT) | payer MEDICARE, SELFPAY ==
[2024-05-25 12:01] LABS: Hematocrit 30.7 % (36.0-48.0); Hemoglobin 9.1 g/dL (12.0-16.0); Mean Corpuscular HGB Conc 29.6 g/dL (29.9-35.2); Mean Corpuscular Hemoglobin 29.5 pg (26.7-34.0); Mean Corpuscular Volume 99.7 fL (81.0-99.0); Mean Platelet Volume 10.3 fL (9.5-13.5); Platelet Count 162 10^3/uL (150-450); Red Blood Count 3.08 10^6/uL (4.20-5.40); Red Cell Distribution Width 13.9 % (11.0-15.0); White Blood Count 4.5 10^3/uL (4.0-11.0)
== END 2024-05-25 11:10 | disposition home or self-care (01) ==
LOC: LAB 11:11
PROVIDERS: PCP Nurse Practitioner Family; Visit Provider Internal Medicine Nephrology
DX: E10.22 Type 1 diabetes mellitus with diabetic chronic kidney disease (principal); N18.4 Chronic kidney disease, stage 4 (severe)
CPT/HCPCS: 36415; 85027

== ENCOUNTER 2024-06-10 09:14 | Outpatient (OUT) | payer MEDICARE, SELFPAY ==
[2024-06-10 09:45] LABS: Hematocrit 30.6 % (36.0-48.0); Hemoglobin 9.1 g/dL (12.0-16.0); Mean Corpuscular HGB Conc 29.7 g/dL (29.9-35.2); Mean Corpuscular Hemoglobin 29.3 pg (26.7-34.0); Mean Corpuscular Volume 98.4 fL (81.0-99.0); Mean Platelet Volume 10.1 fL (9.5-13.5); Platelet Count 187 10^3/uL (150-450); Red Blood Count 3.11 10^6/uL (4.20-5.40); Red Cell Distribution Width 14.2 % (11.0-15.0); White Blood Count 5.9 10^3/uL (4.0-11.0)
[2024-06-10 10:15] LABS: Anion Gap 8.6; Carbon Dioxide 35.1 mmol/L (21.0-32.0); Chloride 106 mmol/L (98-107); Estimated GFR (African America 26 (>=60 mL/min/1.73m^2); Glucose 111 mg/dL (74-106); Potassium 3.7 mmol/L (3.5-5.1); Sodium 146 mmol/L (136-145)
[2024-06-10 10:16] LABS: Albumin Level 2.9 g/dL (3.4-5.0); BUN Creatinine Ratio 17.4; Calcium 8.8 mg/dL (8.5-10.1); Estimated GFR (Non-African Ame 22 (>=60 mL/min/1.73m^2); Percent Iron Saturation 19.7 %; Phosphorus 3.6 mg/dL (2.6-4.7)
== END 2024-06-10 09:15 | disposition home or self-care (01) ==
LOC: LAB 09:16
PROVIDERS: PCP Nurse Practitioner Family; Visit Provider Internal Medicine
DX: E10.22 Type 1 diabetes mellitus with diabetic chronic kidney disease (principal); N18.4 Chronic kidney disease, stage 4 (severe); N18.9 Chronic kidney disease, unspecified; D63.1 Anemia in chronic kidney disease
CPT/HCPCS: 36415; 80069; 82728; 83540; 83550; 85027

== ENCOUNTER 2024-07-06 09:53 | Outpatient (OUT) | payer MEDICARE, SELFPAY ==
[2024-07-06 10:12] LABS: Hematocrit 29.7 % (36.0-48.0); Hemoglobin 8.8 g/dL (12.0-16.0); Mean Corpuscular HGB Conc 29.6 g/dL (29.9-35.2); Mean Corpuscular Hemoglobin 29.3 pg (26.7-34.0); Mean Platelet Volume 9.5 fL (9.5-13.5); Platelet Count 149 10^3/uL (150-450); Red Cell Distribution Width 14.4 % (11.0-15.0); White Blood Count 5.6 10^3/uL (4.0-11.0)
[2024-07-06 10:49] LABS: Albumin Level 3.1 g/dL (3.4-5.0); Anion Gap 8.2; BUN Creatinine Ratio 19.2; Calcium 8.8 mg/dL (8.5-10.1); Carbon Dioxide 34.1 mmol/L (21.0-32.0); Chloride 110 mmol/L (98-107); Chol HDL Ratio 2.3; Cholesterol 106 mg/dL (<=200); Estimated GFR (African America 27 (>=60 mL/min/1.73m^2); Estimated GFR (Non-African Ame 22 (>=60 mL/min/1.73m^2); Glucose 101 mg/dL (74-106); HDL Cholesterol 46 mg/dL (40-60); LDL Cholesterol Calculated 37.4 mg/dL; Phosphorus 3.1 mg/dL (2.6-4.7); Potassium 3.3 mmol/L (3.5-5.1); Sodium 149 mmol/L (136-145); Triglycerides 113 mg/dL (<=150); VLDL CHOLESTEROL 22.6 mg/dL
[2024-07-06 10:56] LABS: Magnesium 1.9 mg/dL (1.8-2.4)
== END 2024-07-06 09:54 | disposition home or self-care (01) ==
LOC: LAB 09:54
PROVIDERS: PCP Nurse Practitioner Family
DX: D64.9 Anemia, unspecified (principal); E10.22 Type 1 diabetes mellitus with diabetic chronic kidney disease; N18.4 Chronic kidney disease, stage 4 (severe); Z79.4 Long term (current) use of insulin; N18.30 Chronic kidney disease, stage 3 unspecified
CPT/HCPCS: 36415; 80061; 80069; 82728; 83540; 83550; 83735; 85027

== ENCOUNTER 2024-07-09 07:47 | Outpatient (RCR) | payer MEDICARE, SELFPAY ==
[2024-07-02 11:04] VITALS: BP 108/63; PULSE 57; TEMP 36.4; O2SAT 92
[2024-07-02] MEDS: FERRIC CARBOXYMALTOSE 750 MG in 0.9 % SODIUM CHLORIDE 250 ML 795 MG IV (11:33)
[2024-07-09 13:48] VITALS: BP 134/62; PULSE 92; TEMP 36.6; O2SAT 92
[2024-07-09] MEDS: FERRIC CARBOXYMALTOSE 750 MG in 0.9 % SODIUM CHLORIDE 250 ML 795 MG IV (14:00)
== END 2024-07-12 12:21 | disposition home or self-care (01) ==
LOC: INF 07:47
PROVIDERS: PCP Nurse Practitioner Family; Visit Provider Internal Medicine
DX: N18.4 Chronic kidney disease, stage 4 (severe) (principal); D64.9 Anemia, unspecified
CPT/HCPCS: 96365; J1439

== ENCOUNTER 2024-07-20 15:55 | Outpatient (OUT) | payer MEDICARE, SELFPAY ==
[2024-07-20 16:28] LABS: Hematocrit 30.9 % (36.0-48.0); Hemoglobin 9.1 g/dL (12.0-16.0); Mean Corpuscular HGB Conc 29.4 g/dL (29.9-35.2); Mean Corpuscular Hemoglobin 29.8 pg (26.7-34.0); Mean Corpuscular Volume 101.3 fL (81.0-99.0); Platelet Count 178 10^3/uL (150-450); Red Blood Count 3.05 10^6/uL (4.20-5.40); Red Cell Distribution Width 15.9 % (11.0-15.0); White Blood Count 5.4 10^3/uL (4.0-11.0)
[2024-07-20 16:51] LABS: Albumin Level 3.1 g/dL (3.4-5.0); Anion Gap 8.1; BUN Creatinine Ratio 11.5; Calcium 8.5 mg/dL (8.5-10.1); Carbon Dioxide 33.3 mmol/L (21.0-32.0); Chloride 107 mmol/L (98-107); Estimated GFR (African America 19 (>=60 mL/min/1.73m^2); Estimated GFR (Non-African Ame 16 (>=60 mL/min/1.73m^2); Glucose 124 mg/dL (74-106); Potassium 4.4 mmol/L (3.5-5.1); Sodium 144 mmol/L (136-145)
[2024-07-20 17:10] LABS: Percent Iron Saturation 34.4 %
[2024-07-22 11:08] LABS: PTH, Intact 101 pg/mL (15-65)
== END 2024-07-20 15:56 | disposition home or self-care (01) ==
LOC: LAB 15:56
PROVIDERS: PCP Nurse Practitioner Family; Visit Provider Internal Medicine Nephrology
DX: I12.9 Hypertensive chronic kidney disease with stage 1 through stage 4 chronic kidney disease, or unspecified chronic kidney disease (principal); N18.4 Chronic kidney disease, stage 4 (severe); E87.5 Hyperkalemia; R60.9 Edema, unspecified; E11.22 Type 2 diabetes mellitus with diabetic chronic kidney disease; N18.30 Chronic kidney disease, stage 3 unspecified
CPT/HCPCS: 36415; 80069; 82728; 83540; 83550; 83970; 85027

== ENCOUNTER 2024-08-04 10:02 | Outpatient (OUT) | payer MEDICARE, SELFPAY ==
--- OUTSIDE RECORDS SUMMARY | 2024-08-04 10:16 | XMS_ITS | CCD ---
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 [HYPOTHYROIDISM UNSPECIFIED] Onset: 10-30-2021 Chronic Unclassified (1 source) Med Refill Onset: 07-30-2023 Past or Other Problems Problem Classification Problem Date Documented Date Episodic/Chronic Mood disorders (7 sources) Mood disorders Onset: 05-09-2023 05-09-2023 Other lower respiratory disease (10 sources) Dyspnea; Translations: [Shortness of breath] Onset: 02-10-2014 07-22-2019 Episodic Other lower respiratory disease (2 sources) Shortness of breath; Translations: [Shortness of breath] Onset: 07-22-2019 Episodic Other screening for suspected conditions (not mental disorders or infectious disease) (7 sources) Abnormal results of cardiovascular function studies; Translations: [Abnormal result of cardiovascular function study, unspecified] Onset: 12-05-2009 07-22-2019 Episodic Results Test Name Value Interpretation Reference Range Facility Erythrocyte distribution wid th Auto (RBC) [Ratio]on 07-20-2024 Erythrocyte distribution width (RBC) [Ratio] Erythrocyte distribution width [Ratio] by Automated count High 11.0-15.0 [facility] Estimated glomerular filtrat ion rate (GFR) non- Americanon 07-20-2024 GFR/1.73 sq M.predicted among non-blacks MDRD (S/P/Bld) [Vol rate/Area] Estimated glomerular filtration rate (GFR) non- Low >=60 mL/min/1.7 3m 2 [facility] Hematocrit Auto (Bld) [Volum e fraction]on 07-20-2024 Hematocrit (Bld) [Volume fraction] Hematocrit [Volume Fraction] of Blood by Automated count Low 36.0-48.0 [facility] Hemoglobin [Mass/volume] in Bloodon 07-20-2024 Hemoglobin (Bld) [Mass/Vol] Hemoglobin [Mass/volume] in Blood Low 12.0-16.0 [facility] Iron binding capacity [Mass/ volume] in Serum or Plasmaon 07-20-2024 Iron binding capacity [Mass/Vol] Iron binding capacity [Mass/volume] in Serum or Plasma Low 250.0-450. 0 [facility] Iron saturation [Mass Fracti on] in Serum or Plasmaon 07-20-2024 Iron saturation [Mass fraction] Iron saturation [Mass Fraction] in Serum or Plasma [facility] Laboratory - Chemistry and C hemistry - challengeon 07-20-2024 Albumin [Mass/Vol] 3.1 g/dL Low 3.4-5.0 [facility] Calcium [Mass/Vol] 8.5 mg/dL 8.5-10.1 [facility] Chloride [Moles/Vol] 107 mmol/L 98-107 [facility] CO2 [Moles/Vol] 33.3 mmol/L High 21.0-32.0 [facility] Creatinine [Mass/Vol] 2.88 mg/dL High 0.55-1.02 [facility] Ferritin [Mass/Vol] 688.0 ng/mL High 8.0-252.0 [facility] GFR/1.73 sq M.predicted MDRD (S/P/Bld) [Vol rate/Area] 19 mL/min/{1.73_m2} Low >=60 mL/min/1.7 3m 2 [facility] Glucose [Mass/Vol] 124 mg/dL High 74-106 [facility] Iron [Mass/Vol] 75.0 ug/dL 50.0-170.0 [facility] Potassium [Moles/Vol] 4.4 mmol/L 3.5-5.1 [facility] Sodium [Moles/Vol] 144 mmol/L 136-145 [facility] Urea nitrogen [Mass/Vol] 33.0 mg/dL High 7.0-18.0 [facility] Urea nitrogen/Creatinine [Mass ratio] 11.5 mg/mg [facility] Leukocytes [#/volume] correc katy for nucleated erythrocytes in Blood by Automated counon 07-20-2024 WBC corrected for nucl RBC Auto (Bld) [#/Vol] Leukocytes [#/volume] corrected for nucleated erythrocytes in Blood by Automated coun 4.0-11.0 [facility] MCH Auto (RBC) [Entitic mass ]on 07-20-2024 MCH (RBC) [Entitic mass] MCH [Entitic mass] by Automated count 26.7-34.0 [facility] MCHC Auto (RBC) [Mass/Vol]on 07-20-2024 MCHC (RBC) [Mass/Vol] MCHC [Mass/volume] by Automated count Low 29.9-35.2 [facility] MCV Auto (RBC) [Entitic vol] on 07-20-2024 MCV (RBC) [Entitic vol] MCV [Entitic volume] by Automated count High 81.0-99.0 [facility] No Panel Informationon 07-20 Parathyroid Hormone (Intact) 101 pg/mL Abnormal 15-65 [facility] Comment on above: Performed at: - [id number] [place], [place] [id number] Director: Deshaun Hunter PhD, Phone: [phone] Phosphorus Level 4.0 mg/dL 2.6-4.7 [facility] Platelet mean volume Auto (B ld) [Entitic vol]on 07-20-2024 Platelet mean volume (Bld) [Entitic vol] Platelet mean volume [Entitic volume] in Blood by Automated count 9.5-13.5 [facility] Platelets Auto (Bld) [#/Vol] on 07-20-2024 Platelets (Bld) [#/Vol] Platelets [#/volume] in Blood by Automated count 150-450 [facility] RBC Auto (Bld) [#/Vol]on RBC (Bld) [#/Vol] Erythrocytes [#/volu me] in Blood by Automated count Low 4.20-5.40 [facility] Serum or plasma anion gap de terminationon 07-20-2024 Anion gap [Moles/Vol] Serum or plasma an ion gap determination [facility] POCT Protime / INRon 07-14- 025 INR Coag (PPP) [Relative time] 3.1 {INR} Abnormal 0.8 - 1.2 [facility] Interpretation and review of laboratory results Abnormal [facility] POCT Protime / INRon 025 INR Coag (PPP) [Relative time] 2.6 {INR} Abnormal 0.8 - 1.2 [facility] Interpretation and review of laboratory results Abnormal [facility] HbA1c HPLC (Bld) [Mass fract ion]on 06-14-2024 HbA1c (Bld) [Mass fraction] Hemoglobin A1c/Hemoglobin.total in Blood by HPLC [facility] No Panel Informationon 06-14 Bedside Glucose 114 [facility] Erythrocyte distribution wid th Auto (RBC) [Ratio]on 06-10-2024 Erythrocyte distribution width (RBC) [Ratio] Erythrocyte distribution width [Ratio] by Automated count 11.0-15.0 [facility] Estimated glomerular filtrat ion rate (GFR) non- Americanon 06-10-2024 GFR/1.73 sq M.predicted among non-blacks MDRD (S/P/Bld) [Vol rate/Area] Estimated glomerular filtration rate (GFR) non- Low >=60 mL/min/1.7 3m 2 [facility] Hematocrit Auto (Bld) [Volum e fraction]on 06-10-2024 Hematocrit (Bld) [Volume fraction] Hematocrit [Volume Fraction] of Blood by Automated count Low 36.0-48.0 [facility] Hemoglobin [Mass/volume] in Bloodon 06-10-2024 Hemoglobin (Bld) [Mass/Vol] Hemoglobin [Mass/volume] in Blood Low 12.0-16.0 [facility] Iron binding capacity [Mass/ volume] in Serum or Plasmaon 06-10-2024 Iron binding capacity [Mass/Vol] Iron binding capacity [Mass/volume] in Serum or Plasma Low 250.0-450. 0 [facility] Iron saturation [Mass Fracti on] in Serum or Plasmaon 06-10-2024 Iron saturation [Mass fraction] Iron saturation [Mass Fraction] in Serum or Plasma [facility] Laboratory - Chemistry and C hemistry - challengeon 06-10-2024 Albumin [Mass/Vol] 2.9 g/dL [facility] Calcium [Mass/Vol] 8.8 mg/dL [facility] Chloride [Moles/Vol] 106 mmol/L [facility] CO2 [Moles/Vol] 35.1 mmol/L [facility] Creatinine [Mass/Vol] 2.18 mg/dL [facility] Glucose [Mass/Vol] 111 mg/dL [facility] Potassium [Moles/Vol] 3.7 mmol/L [facility] Sodium [Moles/Vol] 146 mmol/L [facility] Urea nitrogen [Mass/Vol] 38.0 mg/dL [facility] Albumin [Mass/Vol] 2.9 g/dL Low 3.4-5.0 [facility] Calcium [Mass/Vol] 8.8 mg/dL 8.5-10.1 [facility] Chloride [Moles/Vol] 106 mmol/L 98-107 [facility] CO2 [Moles/Vol] 35.1 mmol/L High 21.0-32.0 [facility] Creatinine [Mass/Vol] 2.18 mg/dL High 0.55-1.02 [facility] Ferritin [Mass/Vol] 49.0 ng/mL 8.0-252.0 [facility] GFR/1.73 sq M.predicted MDRD (S/P/Bld) [Vol rate/Area] 26 mL/min/{1.73_m2} Low >=60 mL/min/1.7 3m 2 [facility] Glucose [Mass/Vol] 111 mg/dL High 74-106 [facility] Iron [Mass/Vol] 48.0 ug/dL Low 50.0-170.0 [facility] Potassium [Moles/Vol] 3.7 mmol/L 3.5-5.1 [facility] Sodium [Moles/Vol] 146 mmol/L High 136-145 [facility] Urea nitrogen [Mass/Vol] 38.0 mg/dL High 7.0-18.0 [facility] Urea nitrogen/Creatinine [Mass ratio] 17.4 mg/mg [facility] Leukocytes [#/volume] correc katy for nucleated erythrocytes in Blood by Automated counon 06-10-2024 WBC corrected for nucl RBC Auto (Bld) [#/Vol] Leukocytes [#/volume] corrected for nucleated erythrocytes in Blood by Automated coun 4.0-11.0 [facility] MCH Auto (RBC) [Entitic mass ]on 06-10-2024 MCH (RBC) [Entitic mass] MCH [Entitic mass] by Automated count 26.7-34.0 [facility] MCHC Auto (RBC) [Mass/Vol]on 06-10-2024 MCHC (RBC) [Mass/Vol] MCHC [Mass/volume] by Automated count Low 29.9-35.2 [facility] MCV Auto (RBC) [Entitic vol] on 06-10-2024 MCV (RBC) [Entitic vol] MCV [Entitic volume] by Automated count 81.0-99.0 [facility] No Panel Informationon 06-10 Estimated GFR (Non- 22 mL/min [facility] Phosphorus Level 3.6 mg/dL [facility] Phosphorus Level 3.6 mg/dL 2.6-4.7 [facility] Platelet mean volume Auto (B ld) [Entitic vol]on 06-10-2024 Platelet mean volume (Bld) [Entitic vol] Platelet mean volume [Entitic volume] in Blood by Automated count 9.5-13.5 [facility] Platelets Auto (Bld) [#/Vol] on 06-10-2024 Platelets (Bld) [#/Vol] Platelets [#/volume] in Blood by Automated count 150-450 [facility] RBC Auto (Bld) [#/Vol]on RBC (Bld) [#/Vol] Erythrocytes [#/volu me] in Blood by Automated count Low 4.20-5.40 [facility] Serum or plasma anion gap de terminationon 06-10-2024 Anion gap [Moles/Vol] Serum or plasma an ion gap determination [facility] Erythrocyte distribution wid th Auto (RBC) [Ratio]on 05-25-2024 Erythrocyte distribution width (RBC) [Ratio] Erythrocyte distribution width [Ratio] by Automated count 11.0-15.0 [facility] Hematocrit Auto (Bld) [Volum e fraction]on 05-25-2024 Hematocrit (Bld) [Volume fraction] Hematocrit [Volume Fraction] of Blood by Automated count Low 36.0-48.0 [facility] Hemoglobin [Mass/volume] in Bloodon 05-25-2024 Hemoglobin (Bld) [Mass/Vol] Hemoglobin [Mass/volume] in Blood Low 12.0-16.0 [facility] Leukocytes [#/volume] correc katy for nucleated erythrocytes in Blood by Automated counon 05-25-2024 WBC corrected for nucl RBC Auto (Bld) [#/Vol] Leukocytes [#/volume] corrected for nucleated erythrocytes in Blood by Automated coun 4.0-11.0 [facility] MCH Auto (RBC) [Entitic mass ]on 05-25-2024 MCH (RBC) [Entitic mass] MCH [Entitic mass] by Automated count 26.7-34.0 [facility] MCHC Auto (RBC) [Mass/Vol]on 05-25-2024 MCHC (RBC) [Mass/Vol] MCHC [Mass/volume] by Automated count Low 29.9-35.2 [facility] MCV Auto (RBC) [Entitic vol] on 05-25-2024 MCV (RBC) [Entitic vol] MCV [Entitic volume] by Automated count High 81.0-99.0 [facility] Platelet mean volume Auto (B ld) [Entitic vol]on 05-25-2024 Platelet mean volume (Bld) [Entitic vol] Platelet mean volume [Entitic volume] in Blood by Automated count 9.5-13.5 [facility] Platelets Auto (Bld) [#/Vol] on 05-25-2024 Platelets (Bld) [#/Vol] Platelets [#/volume] in Blood by Automated count 150-450 [facility] RBC Auto (Bld) [#/Vol]on RBC (Bld) [#/Vol] Erythrocytes [#/volu me] in Blood by Automated count Low 4.20-5.40 [facility] POCT Protime / INRon 024 INR Coag (PPP) [Relative time] 2.3 {INR} Abnormal 0.8 - 1.2 [facility] Interpretation and review of laboratory results Abnormal [facility] Erythrocyte distribution wid th Auto (RBC) [Ratio]on 04-28-2024 Erythrocyte distribution width (RBC) [Ratio] Erythrocyte distribution width [Ratio] by Automated count 11.0-15.0 [facility] Hematocrit Auto (Bld) [Volum e fraction]on 04-28-2024 Hematocrit (Bld) [Volume fraction] Hematocrit [Volume Fraction] of Blood by Automated count Low 36.0-48.0 [facility] Hemoglobin [Mass/volume] in Bloodon 04-28-2024 Hemoglobin (Bld) [Mass/Vol] Hemoglobin [Mass/volume] in Blood Low 12.0-16.0 [facility] Iron binding capacity [Mass/ volume] in Serum or Plasmaon 04-28-2024 Iron binding capacity [Mass/Vol] Iron binding capacity [Mass/volume] in Serum or Plasma 250.0-450. 0 [facility] Iron saturation [Mass Fracti on] in Serum or Plasmaon 04-28-2024 Iron saturation [Mass fraction] Iron saturation [Mass Fraction] in Serum or Plasma [facility] Laboratory - Chemistry and C hemistry - challengeon 04-28-2024 Cobalamin (Vitamin B12) [Mass/Vol] 1140 pg/mL [id number] [facility] Comment on above: Performed at: [place] [id number] Director: Deshaun Hunter PhD, Phone: [phone] Ferritin [Mass/Vol] 58.0 ng/mL 8.0-252.0 [facility] Iron [Mass/Vol] 49.0 ug/dL Low 50.0-170.0 [facility] Leukocytes [#/volume] correc katy for nucleated erythrocytes in Blood by Automated counon 04-28-2024 WBC corrected for nucl RBC Auto (Bld) [#/Vol] Leukocytes [#/volume] corrected for nucleated erythrocytes in Blood by Automated coun 4.0-11.0 [facility] MCH Auto (RBC) [Entitic mass ]on 04-28-2024 MCH (RBC) [Entitic mass] MCH [Entitic mass] by Automated count 26.7-34.0 [facility] MCHC Auto (RBC) [Mass/Vol]on 04-28-2024 MCHC (RBC) [Mass/Vol] MCHC [Mass/volume] by Automated count Low 29.9-35.2 [facility] MCV Auto (RBC) [Entitic vol] on 04-28-2024 MCV (RBC) [Entitic vol] MCV [Entitic volume] by Automated count High 81.0-99.0 [facility] No Panel Informationon 04-28 Folate 13.00 ng/mL 8.60-58.90 [facility] Platelet mean volume Auto (B ld) [Entitic vol]on 04-28-2024 Platelet mean volume (Bld) [Entitic vol] Platelet mean volume [Entitic volume] in Blood by Automated count 9.5-13.5 [facility] Platelets Auto (Bld) [#/Vol] on 04-28-2024 Platelets (Bld) [#/Vol] Platelets [#/volume] in Blood by Automated count 150-450 [facility] RBC Auto (Bld) [#/Vol]on RBC (Bld) [#/Vol] Erythrocytes [#/volu me] in Blood by Automated count Low 4.20-5.40 [facility] Erythrocyte distribution wid th Auto (RBC) [Ratio]on 04-13-2024 Erythrocyte distribution width (RBC) [Ratio] Erythrocyte distribution width [Ratio] by Automated count 11.0-15.0 [facility] Estimated glomerular filtrat ion rate (GFR) non- Americanon 04-13-2024 GFR/1.73 sq M.predicted among non-blacks MDRD (S/P/Bld) [Vol rate/Area] Estimated glomerular filtration rate (GFR) non- Low >=60 mL/min/1.7 3m 2 [facility] Hematocrit Auto (Bld) [Volum e fraction]on 04-13-2024 Hematocrit (Bld) [Volume fraction] Hematocrit [Volume Fraction] of Blood by Automated count Low 36.0-48.0 [facility] Hemoglobin [Mass/volume] in Bloodon 04-13-2024 Hemoglobin (Bld) [Mass/Vol] Hemoglobin [Mass/volume] in Blood Low 12.0-16.0 [facility] Laboratory - Chemistry and C hemistry - challengeon 04-13-2024 Albumin [Mass/Vol] 2.9 g/dL Low 3.4-5.0 [facility] Calcium [Mass/Vol] 9.5 mg/dL 8.5-10.1 [facility] Chloride [Moles/Vol] 106 mmol/L 98-107 [facility] CO2 [Moles/Vol] 32.0 mmol/L 21.0-32.0 [facility] Creatinine [Mass/Vol] 2.22 mg/dL High 0.55-1.02 [facility] GFR/1.73 sq M.predicted MDRD (S/P/Bld) [Vol rate/Area] 26 mL/min/{1.73_m2} Low >=60 mL/min/1.7 3m 2 [facility] Glucose [Mass/Vol] 135 mg/dL High 74-106 [facility] Potassium [Moles/Vol] 4.4 mmol/L 3.5-5.1 [facility] Sodium [Moles/Vol] 146 mmol/L High 136-145 [facility] Urea nitrogen [Mass/Vol] 44.0 mg/dL High 7.0-18.0 [facility] Urea nitrogen/Creatinine [Mass ratio] 19.8 mg/mg [facility] Leukocytes [#/volume] correc katy for nucleated erythrocytes in Blood by Automated counon 04-13-2024 WBC corrected for nucl RBC Auto (Bld) [#/Vol] Leukocytes [#/volume] corrected for nucleated erythrocytes in Blood by Automated coun 4.0-11.0 [facility] MCH Auto (RBC) [Entitic mass ]on 04-13-2024 MCH (RBC) [Entitic mass] MCH [Entitic mass] by Automated count 26.7-34.0 [facility] MCHC Auto (RBC) [Mass/Vol]on 04-13-2024 MCHC (RBC) [Mass/Vol] MCHC [Mass/volume] by Automated count Low 29.9-35.2 [facility] MCV Auto (RBC) [Entitic vol] on 04-13-2024 MCV (RBC) [Entitic vol] MCV [Entitic volume] by Automated count High 81.0-99.0 [facility] No Panel Informationon 04-13 Phosphorus Level 3.7 mg/dL 2.6-4.7 [facility] Platelet mean volume Auto (B ld) [Entitic vol]on 04-13-2024 Platelet mean volume (Bld) [Entitic vol] Platelet mean volume [Entitic volume] in Blood by Automated count 9.5-13.5 [facility] Platelets Auto (Bld) [#/Vol] on 04-13-2024 Platelets (Bld) [#/Vol] Platelets [#/volume] in Blood by Automated count 150-450 [facility] RBC Auto (Bld) [#/Vol]on RBC (Bld) [#/Vol] Erythrocytes [#/volu me] in Blood by Automated count Low 4.20-5.40 [facility] Serum or plasma anion gap de terminationon 04-13-2024 Anion gap [Moles/Vol] Serum or plasma an ion gap determination [facility] Erythrocyte distribution wid th Auto (RBC) [Ratio]on 03-17-2024 Erythrocyte distribution width (RBC) [Ratio] 14.8 % 11.0-15.0 [facility] Erythrocyte distribution width (RBC) [Ratio] Erythrocyte distribution width [Ratio] by Automated count 11.0-15.0 [facility] Hematocrit Auto (Bld) [Volum e fraction]on 03-17-2024 Hematocrit (Bld) [Volume fraction] 32.8 % Low 36.0-48.0 [facility] Hematocrit (Bld) [Volume fraction] Hematocrit [Volume Fraction] of Blood by Automated count Low 36.0-48.0 [facility] Hemoglobin [Mass/volume] in Bloodon 03-17-2024 Hemoglobin (Bld) [Mass/Vol] 9.8 g/dL Low 12.0-16.0 [facility] Hemoglobin (Bld) [Mass/Vol] Hemoglobin [Mass/volume] in Blood Low 12.0-16.0 [facility] Iron binding capacity [Mass/ volume] in Serum or Plasmaon 03-17-2024 Iron binding capacity [Mass/Vol] 225.0 ug/dL Low 250.0-450. 0 [facility] Iron binding capacity [Mass/Vol] Iron binding capacity [Mass/volume] in Serum or Plasma Low 250.0-450. 0 [facility] Iron saturation [Mass Fracti on] in Serum or Plasmaon 03-17-2024 Iron saturation [Mass fraction] 22.7 % [facility] Iron saturation [Mass fraction] Iron saturation [Mass Fraction] in Serum or Plasma [facility] Laboratory - Chemistry and C hemistry - challengeon 03-17-2024 Cobalamin (Vitamin B12) [Mass/Vol] 1103 pg/mL [id number] [facility] Comment on above: Performed at: [address] [id number] Director: Deshaun Hunter PhD, Phone: [phone] Ferritin [Mass/Vol] 65.0 ng/mL 8.0-252.0 [facility] Iron [Mass/Vol] 51.0 ug/dL 50.0-170.0 [facility] Magnesium [Mass/Vol] 2.2 mg/dL 1.8-2.4 [facility] Leukocytes [#/volume] correc katy for nucleated erythrocytes in Blood by Automated counon 03-17-2024 WBC corrected for nucl RBC Auto (Bld) [#/Vol] 6.3 10 3/uL 4.0-11.0 [facility] WBC corrected for nucl RBC Auto (Bld) [#/Vol] Leukocytes [#/volume] corrected for nucleated erythrocytes in Blood by Automated coun .0-11.0 [facility] MCH Auto (RBC) [Entitic mass ]on 03-17-2024 MCH (RBC) [Entitic mass] 29.5 pg 26.7-34.0 [facility] MCH (RBC) [Entitic mass] MCH [Entitic mass] by Automated count 26.7-34.0 [facility] MCHC Auto (RBC) [Mass/Vol]on 03-17-2024 MCHC (RBC) [Mass/Vol] 29.9 g/dL 29.9-35.2 [facility] MCHC (RBC) [Mass/Vol] MCHC [Mass/volume] by Automated count 29.9-35.2 [facility] MCV Auto (RBC) [Entitic vol] on 03-17-2024 MCV (RBC) [Entitic vol] 98.8 fL 81.0-99.0 [facility] MCV (RBC) [Entitic vol] MCV [Entitic volume] by Automated count 81.0-99.0 [facility] No Panel Informationon 03-17 Folate 11.70 ng/mL 8.60-58.90 [facility] Parathyroid Hormone (Intact) 78 pg/mL Abnormal [facility] Comment on above: Performed at: [address] [id number] Director: Deshaun Hunter PhD, Phone: [phone] Platelet mean volume Auto (B ld) [Entitic vol]on 03-17-2024 Platelet mean volume (Bld) [Entitic vol] 10.1 fL 9.5-13.5 [facility] Platelet mean volume (Bld) [Entitic vol] Platelet mean volume [Entitic volume] in Blood by Automated count 9.5-13.5 [facility] Platelets Auto (Bld) [#/Vol] on 03-17-2024 Platelets (Bld) [#/Vol] 179 10 3/uL 150-450 [facility] Platelets (Bld) [#/Vol] Platelets [#/volume] in Blood by Automated count 150-450 [facility] RBC Auto (Bld) [#/Vol]on RBC (Bld) [#/Vol] 3.32 10 6/uL Low 4.20-5.40 [facility] RBC (Bld) [#/Vol] Erythrocytes [#/volu me] in Blood by Automated count Low 4.20-5.40 [facility] Erythrocyte distribution wid th Auto (RBC) [Ratio]on 02-23-2024 Erythrocyte distribution width (RBC) [Ratio] 15.1 % High 11.0-15.0 [facility] Erythrocyte distribution width (RBC) [Ratio] Erythrocyte distribution width [Ratio] by Automated count High 11.0-15.0 [facility] Estimated glomerular filtrat ion rate (GFR) non- Americanon 02-23-2024 GFR/1.73 sq M.predicted among non-blacks MDRD (S/P/Bld) [Vol rate/Area] 20 mL/min/{1.73_m2} Low >=60 mL/min/1.7 3m 2 [facility] GFR/1.73 sq M.predicted among non-blacks MDRD (S/P/Bld) [Vol rate/Area] Estimated glomerular filtration rate (GFR) non- Low >=60 mL/min/1.7 3m 2 [facility] Hematocrit Auto (Bld) [Volum e fraction]on 02-23-2024 Hematocrit (Bld) [Volume fraction] 32.8 % Low 36.0-48.0 [facility] Hematocrit (Bld) [Volume fraction] Hematocrit [Volume Fraction] of Blood by Automated count Low 36.0-48.0 [facility] Hemoglobin [Mass/volume] in Bloodon 02-23-2024 Hemoglobin (Bld) [Mass/Vol] 9.7 g/dL Low 12.0-16.0 [facility] Hemoglobin (Bld) [Mass/Vol] Hemoglobin [Mass/volume] in Blood Low 12.0-16.0 [facility] Laboratory - Chemistry and C hemistry - challengeon 02-23-2024 Albumin [Mass/Vol] 3.0 g/dL Low 3.4-5.0 [facility] Calcium [Mass/Vol] 8.9 mg/dL 8.5-10.1 [facility] Chloride [Moles/Vol] 107 mmol/L 98-107 [facility] CO2 [Moles/Vol] 28.7 mmol/L 21.0-32.0 [facility] Creatinine [Mass/Vol] 2.30 mg/dL High 0.55-1.02 [facility] GFR/1.73 sq M.predicted MDRD (S/P/Bld) [Vol rate/Area] 25 mL/min/{1.73_m2} Low >=60 mL/min/1.7 3m 2 [facility] Glucose [Mass/Vol] 97 mg/dL 74-106 [facility] Potassium [Moles/Vol] 4.0 mmol/L 3.5-5.1 [facility] Sodium [Moles/Vol] 144 mmol/L 136-145 [facility] [facility] Urea nitrogen [Mass/Vol] 50.0 mg/dL High 7.0-18.0 [facility] Urea nitrogen/Creatinine [Mass ratio] 21.7 mg/mg [facility] Leukocytes [#/volume] correc katy for nucleated erythrocytes in Blood by Automated counon 02-23-2024 WBC corrected for nucl RBC Auto (Bld) [#/Vol] 4.8 10 3/uL 4.0-11.0 [facility] WBC corrected for nucl RBC Auto (Bld) [#/Vol] Leukocytes [#/volume] corrected for nucleated erythrocytes in Blood by Automated coun 4.0-11.0 [facility] MCH Auto (RBC) [Entitic mass ]on 02-23-2024 MCH (RBC) [Entitic mass] 29.4 pg 26.7-34.0 [facility] MCH (RBC) [Entitic mass] MCH [Entitic mass] by Automated count 26.7-34.0 [facility] MCHC Auto (RBC) [Mass/Vol]on 02-23-2024 MCHC (RBC) [Mass/Vol] 29.6 g/dL Low 29.9-35.2 [facility] MCHC (RBC) [Mass/Vol] MCHC [Mass/volume] by Automated count Low 29.9-35.2 [facility] MCV Auto (RBC) [Entitic vol] on 02-23-2024 MCV (RBC) [Entitic vol] 99.4 fL High 81.0-99.0 [facility] MCV (RBC) [Entitic vol] MCV [Entitic volume] by Automated count High 81.0-99.0 [facility] No Panel Informationon 02-22 Phosphorus Level 3.6 mg/dL 2.6-4.7 [facility] Platelet mean volume Auto (B ld) [Entitic vol]on 02-23-2024 Platelet mean volume (Bld) [Entitic vol] 9.7 fL 9.5-13.5 [facility] Platelet mean volume (Bld) [Entitic vol] Platelet mean volume [Entitic volume] in Blood by Automated count 9.5-13.5 [facility] Platelets Auto (Bld) [#/Vol] on 02-23-2024 Platelets (Bld) [#/Vol] 170 10 3/uL 150-450 [facility] Platelets (Bld) [#/Vol] Platelets [#/volume] in Blood by Automated count 150-450 [facility] RBC Auto (Bld) [#/Vol]on RBC (Bld) [#/Vol] 3.30 10 6/uL Low 4.20-5.40 [facility] RBC (Bld) [#/Vol] Erythrocytes [#/volu me] in Blood by Automated count Low 4.20-5.40 [facility] Serum or plasma anion gap de terminationon 02-23-2024 Anion gap [Moles/Vol] 12.3 mmol/L [facility] Anion gap [Moles/Vol] Serum or plasma an ion gap determination [facility] Erythrocyte distribution wid th Auto (RBC) [Ratio]on 02-03-2024 Erythrocyte distribution width (RBC) [Ratio] 14.4 % 11.0-15.0 [facility] Erythrocyte distribution width (RBC) [Ratio] Erythrocyte distribution width [Ratio] by Automated count 11.0-15.0 [facility] Estimated glomerular filtrat ion rate (GFR) non- Americanon 02-03-2024 GFR/1.73 sq M.predicted among non-blacks MDRD (S/P/Bld) [Vol rate/Area] 19 mL/min/{1.73_m2} Low >=60 [facility] GFR/1.73 sq M.predicted among non-blacks MDRD (S/P/Bld) [Vol rate/Area] Estimated glomerular filtration rate (GFR) non- Low >=60 [facility] Hematocrit Auto (Bld) [Volum e fraction]on 02-03-2024 Hematocrit (Bld) [Volume fraction] 33.5 % Low 36.0-48.0 [facility] Hematocrit (Bld) [Volume fraction] Hematocrit [Volume Fraction] of Blood by Automated count Low 36.0-48.0 [facility] Hemoglobin [Mass/volume] in Bloodon 02-03-2024 Hemoglobin (Bld) [Mass/Vol] 10.0 g/dL Low 12.0-16.0 [facility] Hemoglobin (Bld) [Mass/Vol] Hemoglobin [Mass/volume] in Blood Low 12.0-16.0 [facility] Laboratory - Chemistry and C hemistry - challengeon 02-03-2024 Albumin [Mass/Vol] 3.1 g/dL Low 3.4-5.0 [facility] Calcium [Mass/Vol] 8.8 mg/dL 8.5-10.1 [facility] Chloride [Moles/Vol] 103 mmol/L 98-107 [facility] CO2 [Moles/Vol] 32.9 mmol/L High 21.0-32.0 [facility] Creatinine [Mass/Vol] 2.48 mg/dL High 0.55-1.02 [facility] GFR/1.73 sq M.predicted MDRD (S/P/Bld) [Vol rate/Area] 23 mL/min/{1.73_m2} Low >=60 [facility] Glucose [Mass/Vol] 101 mg/dL 74-106 [facility] Potassium [Moles/Vol] 4.6 mmol/L 3.5-5.1 [facility] Sodium [Moles/Vol] 141 mmol/L 136-145 [facility] Urea nitrogen [Mass/Vol] 51.0 mg/dL High 7.0-18.0 [facility] Urea nitrogen/Creatinine [Mass ratio] 20.6 mg/mg [facility] Leukocytes [#/volume] correc katy for nucleated erythrocytes in Blood by Automated counon 02-03-2024 WBC corrected for nucl RBC Auto (Bld) [#/Vol] 6.3 10 3/uL 4.0-11.0 [facility] WBC corrected for nucl RBC Auto (Bld) [#/Vol] Leukocytes [#/volume] corrected for nucleated erythrocytes in Blood by Automated coun 4.0-11.0 [facility] MCH Auto (RBC) [Entitic mass ]on 02-03-2024 MCH (RBC) [Entitic mass] 29.4 pg 26.7-34.0 [facility] MCH (RBC) [Entitic mass] MCH [Entitic mass] by Automated count 26.7-34.0 [facility] MCHC Auto (RBC) [Mass/Vol]on 02-03-2024 MCHC (RBC) [Mass/Vol] 29.9 g/dL 29.9-35.2 [facility] MCHC (RBC) [Mass/Vol] MCHC [Mass/volume] by Automated count 29.9-35.2 [facility] MCV Auto (RBC) [Entitic vol] on 02-03-2024 MCV (RBC) [Entitic vol] 98.5 fL 81.0-99.0 [facility] MCV (RBC) [Entitic vol] MCV [Entitic volume] by Automated count 81.0-99.0 [facility] No Panel Informationon 02-02 Phosphorus Level 4.7 mg/dL 2.6-4.7 [facility] Platelet mean volume Auto (B ld) [Entitic vol]on 02-03-2024 Platelet mean volume (Bld) [Entitic vol] 9.6 fL 9.5-13.5 [facility] Platelet mean volume (Bld) [Entitic vol] Platelet mean volume [Entitic volume] in Blood by Automated count 9.5-13.5 [facility] Platelets Auto (Bld) [#/Vol] on 02-03-2024 Platelets (Bld) [#/Vol] 227 10 3/uL 150-450 [facility] Platelets (Bld) [#/Vol] Platelets [#/volume] in Blood by Automated count 150-450 [facility] RBC Auto (Bld) [#/Vol]on RBC (Bld) [#/Vol] 3.40 10 6/uL Low 4.20-5.40 [facility] RBC (Bld) [#/Vol] Erythrocytes [#/volu me] in Blood by Automated count Low 4.20-5.40 [facility] Serum or plasma anion gap de terminationon 02-03-2024 Anion gap [Moles/Vol] 9.7 mmol/L [facility] Anion gap [Moles/Vol] Serum or plasma an ion gap determination [facility] Estimated glomerular filtrat ion rate (GFR) non- Americanon 01-23-2024 GFR/1.73 sq M.predicted among non-blacks MDRD (S/P/Bld) [Vol rate/Area] 23 mL/min/{1.73_m2} Low >=60 [facility] GFR/1.73 sq M.predicted among non-blacks MDRD (S/P/Bld) [Vol rate/Area] Estimated glomerular filtration rate (GFR) non- Low >=60 [facility] Laboratory - Chemistry and C hemistry - challengeon 01-23-2024 Albumin [Mass/Vol] 3.0 g/dL Low 3.4-5.0 [facility] Calcium [Mass/Vol] 8.6 mg/dL 8.5-10.1 [facility] Chloride [Moles/Vol] 107 mmol/L 98-107 [facility] CO2 [Moles/Vol] 30.8 mmol/L 21.0-32.0 [facility] Creatinine [Mass/Vol] 2.09 mg/dL High 0.55-1.02 [facility] GFR/1.73 sq M.predicted MDRD (S/P/Bld) [Vol rate/Area] 27 mL/min/{1.73_m2} Low >=60 [facility] Glucose [Mass/Vol] 100 mg/dL 74-106 [facility] Potassium [Moles/Vol] 5.8 mmol/L High 3.5-5.1 [facility] Sodium [Moles/Vol] 144 mmol/L 136-145 [facility] Urea nitrogen [Mass/Vol] 44.0 mg/dL High 7.0-18.0 [facility] Urea nitrogen/Creatinine [Mass ratio] 21.1 mg/mg [facility] No Panel Informationon 01-22 Phosphorus Level 4.1 mg/dL 2.6-4.7 [facility] Serum or plasma anion gap de terminationon 01-23-2024 Anion gap [Moles/Vol] 12.0 mmol/L [facility] Anion gap [Moles/Vol] Serum or plasma an ion gap determination [facility] Erythrocyte distribution wid th Auto (RBC) [Ratio]on 01-20-2024 Erythrocyte distribution width (RBC) [Ratio] 15.0 % 11.0-15.0 [facility] Erythrocyte distribution width (RBC) [Ratio] Erythrocyte distribution width [Ratio] by Automated count 11.0-15.0 [facility] Estimated glomerular filtrat ion rate (GFR) non- Americanon 01-20-2024 GFR/1.73 sq M.predicted among non-blacks MDRD (S/P/Bld) [Vol rate/Area] 23 mL/min/{1.73_m2} Low >=60 [facility] GFR/1.73 sq M.predicted among non-blacks MDRD (S/P/Bld) [Vol rate/Area] Estimated glomerular filtration rate (GFR) non- Low >=60 [facility] Hematocrit Auto (Bld) [Volum e fraction]on 01-20-2024 Hematocrit (Bld) [Volume fraction] 32.5 % Low 36.0-48.0 [facility] Hematocrit (Bld) [Volume fraction] Hematocrit [Volume Fraction] of Blood by Automated count Low 36.0-48.0 [facility] Hemoglobin [Mass/volume] in Bloodon 01-20-2024 Hemoglobin (Bld) [Mass/Vol] 9.6 g/dL Low 12.0-16.0 [facility] Hemoglobin (Bld) [Mass/Vol] Hemoglobin [Mass/volume] in Blood Low 12.0-16.0 [facility] Iron binding capacity [Mass/ volume] in Serum or Plasmaon 01-20-2024 Iron binding capacity [Mass/Vol] 260.0 ug/dL 250.0-450. 0 [facility] Iron binding capacity [Mass/Vol] Iron binding capacity [Mass/volume] in Serum or Plasma 250.0-450. 0 [facility] Iron saturation [Mass Fracti on] in Serum or Plasmaon 01-20-2024 Iron saturation [Mass fraction] 10.0 % [facility] Iron saturation [Mass fraction] Iron saturation [Mass Fraction] in Serum or Plasma [facility] Laboratory - Chemistry and C hemistry - challengeon 01-20-2024 Albumin [Mass/Vol] 3.0 g/dL Low 3.4-5.0 [facility] Calcium [Mass/Vol] 8.5 mg/dL 8.5-10.1 [facility] Chloride [Moles/Vol] 108 mmol/L High 98-107 [facility] CO2 [Moles/Vol] 31.6 mmol/L 21.0-32.0 [facility] Creatinine [Mass/Vol] 2.06 mg/dL High 0.55-1.02 [facility] Ferritin [Mass/Vol] 36.0 ng/mL 8.0-252.0 [facility] GFR/1.73 sq M.predicted MDRD (S/P/Bld) [Vol rate/Area] 28 mL/min/{1.73_m2} Low >=60 [facility] Glucose [Mass/Vol] 106 mg/dL 74-106 [facility] Iron [Mass/Vol] 26.0 ug/dL Low 50.0-170.0 [facility] Potassium [Moles/Vol] 5.8 mmol/L High 3.5-5.1 [facility] Sodium [Moles/Vol] 144 mmol/L 136-145 [facility] Urea nitrogen [Mass/Vol] 48.0 mg/dL High 7.0-18.0 [facility] Urea nitrogen/Creatinine [Mass ratio] 23.3 mg/mg [facility] Leukocytes [#/volume] correc katy for nucleated erythrocytes in Blood by Automated counon 01-20-2024 WBC corrected for nucl RBC Auto (Bld) [#/Vol] 6.4 10 3/uL 4.0-11.0 [facility] WBC corrected for nucl RBC Auto (Bld) [#/Vol] Leukocytes [#/volume] corrected for nucleated erythrocytes in Blood by Automated coun 4.0-11.0 [facility] MCH Auto (RBC) [Entitic mass ]on 01-20-2024 MCH (RBC) [Entitic mass] 30.0 pg 26.7-34.0 [facility] MCH (RBC) [Entitic mass] MCH [Entitic mass] by Automated count 26.7-34.0 [facility] MCHC Auto (RBC) [Mass/Vol]on 01-20-2024 MCHC (RBC) [Mass/Vol] 29.5 g/dL Low 29.9-35.2 [facility] MCHC (RBC) [Mass/Vol] MCHC [Mass/volume] by Automated count Low 29.9-35.2 [facility] MCV Auto (RBC) [Entitic vol] on 01-20-2024 MCV (RBC) [Entitic vol] 101.6 fL High 81.0-99.0 [facility] MCV (RBC) [Entitic vol] MCV [Entitic volume] by Automated count High 81.0-99.0 [facility] No Panel Informationon 01-19 Phosphorus Level 4.2 mg/dL 2.6-4.7 [facility] Platelet mean volume Auto (B ld) [Entitic vol]on 01-20-2024 Platelet mean volume (Bld) [Entitic vol] 9.6 fL 9.5-13.5 [facility] Platelet mean volume (Bld) [Entitic vol] Platelet mean volume [Entitic volume] in Blood by Automated count 9.5-13.5 [facility] Platelets Auto (Bld) [#/Vol] on 01-20-2024 Platelets (Bld) [#/Vol] 196 10 3/uL 150-450 [facility] Platelets (Bld) [#/Vol] Platelets [#/volume] in Blood by Automated count 150-450 [facility] RBC Auto (Bld) [#/Vol]on RBC (Bld) [#/Vol] 3.20 10 6/uL Low 4.20-5.40 [facility] RBC (Bld) [#/Vol] Erythrocytes [#/volu me] in Blood by Automated count Low 4.20-5.40 [facility] Serum or plasma anion gap de terminationon 01-20-2024 Anion gap [Moles/Vol] 10.2 mmol/L [facility] Anion gap [Moles/Vol] Serum or plasma an ion gap determination [facility] 36on 01-07-2024 36 Please forward to PCP Normal [facility] 01-06-2024 Refill [id number] Dany Martínez M 1940 F Date Provider Department Center 01/[id number] No family history on file Reason for Visit and Comments: Med Refill [[id number]] Normal [facility] Erythrocyte distribution wid th Auto (RBC) [Ratio]on 01-05-2024 Erythrocyte distribution width (RBC) [Ratio] 14.2 % 11.0-15.0 [facility] Erythrocyte distribution width (RBC) [Ratio] Erythrocyte distribution width [Ratio] by Automated count 11.0-15.0 [facility] Hematocrit Auto (Bld) [Volum e fraction]on 01-05-2024 Hematocrit (Bld) [Volume fraction] 32.4 % Low 36.0-48.0 [facility] Hematocrit (Bld) [Volume fraction] Hematocrit [Volume Fraction] of Blood by Automated count Low 36.0-48.0 [facility] Hemoglobin [Mass/volume] in Bloodon 01-05-2024 Hemoglobin (Bld) [Mass/Vol] 9.8 g/dL Low 12.0-16.0 [facility] Hemoglobin (Bld) [Mass/Vol] Hemoglobin [Mass/volume] in Blood Low 12.0-16.0 [facility] Leukocytes [#/volume] correc katy for nucleated erythrocytes in Blood by Automated counon 01-05-2024 WBC corrected for nucl RBC Auto (Bld) [#/Vol] 5.7 10 3/uL 4.0-11.0 [facility] WBC corrected for nucl RBC Auto (Bld) [#/Vol] Leukocytes [#/volume] corrected for nucleated erythrocytes in Blood by Automated coun 4.0-11.0 [facility] MCH Auto (RBC) [Entitic mass ]on 01-05-2024 MCH (RBC) [Entitic mass] 30.1 pg 26.7-34.0 [facility] MCH (RBC) [Entitic mass] MCH [Entitic mass] by Automated count 26.7-34.0 [facility] MCHC Auto (RBC) [Mass/Vol]on 01-05-2024 MCHC (RBC) [Mass/Vol] 30.2 g/dL 29.9-35.2 [facility] MCHC (RBC) [Mass/Vol] MCHC [Mass/volume] by Automated count 29.9-35.2 [facility] MCV Auto (RBC) [Entitic vol] on 01-05-2024 MCV (RBC) [Entitic vol] 99.4 fL High 81.0-99.0 [facility] MCV (RBC) [Entitic vol] MCV [Entitic volume] by Automated count High 81.0-99.0 [facility] Platelet mean volume Auto (B ld) [Entitic vol]on 01-05-2024 Platelet mean volume (Bld) [Entitic vol] 9.3 fL Low 9.5-13.5 [facility] Platelet mean volume (Bld) [Entitic vol] Platelet mean volume [Entitic volume] in Blood by Automated count Low 9.5-13.5 [facility] Platelets Auto (Bld) [#/Vol] on 01-05-2024 Platelets (Bld) [#/Vol] 211 10 3/uL 150-450 [facility] Platelets (Bld) [#/Vol] Platelets [#/volume] in Blood by Automated count 150-450 [facility] RBC Auto (Bld) [#/Vol]on RBC (Bld) [#/Vol] 3.26 10 6/uL Low 4.20-5.40 [facility] RBC (Bld) [#/Vol] Erythrocytes [#/volu me] in Blood by Automated count Low 4.20-5.40 [facility] No Panel Informationon 12-07 Bedside Glucose 124 [facility] Erythrocyte distribution wid th Auto (RBC) [Ratio]on 11-27-2023 Erythrocyte distribution width (RBC) [Ratio] 14.7 % 11.0-15.0 [facility] Hematocrit Auto (Bld) [Volum e fraction]on 11-27-2023 Hematocrit (Bld) [Volume fraction] 31.1 % Low 36.0-48.0 [facility] Hemoglobin [Mass/volume] in Bloodon 11-27-2023 Hemoglobin (Bld) [Mass/Vol] 9.3 g/dL Low 12.0-16.0 [facility] Leukocytes [#/volume] correc katy for nucleated erythrocytes in Blood by Automated counon 11-27-2023 WBC corrected for nucl RBC Auto (Bld) [#/Vol] 5.4 10 3/uL 4.0-11.0 [facility] MCH Auto (RBC) [Entitic mass ]on 11-27-2023 MCH (RBC) [Entitic mass] 29.5 pg 26.7-34.0 [facility] MCHC Auto (RBC) [Mass/Vol]on 11-27-2023 MCHC (RBC) [Mass/Vol] 29.9 g/dL 29.9-35.2 [facility] MCV Auto (RBC) [Entitic vol] on 11-27-2023 MCV (RBC) [Entitic vol] 98.7 fL 81.0-99.0 [facility] Platelet mean volume Auto (B ld) [Entitic vol]on 11-27-2023 Platelet mean volume (Bld) [Entitic vol] 9.9 fL 9.5-13.5 [facility] Platelets Auto (Bld) [#/Vol] on 11-27-2023 Platelets (Bld) [#/Vol] 195 10 3/uL 150-450 [facility] RBC Auto (Bld) [#/Vol]on RBC (Bld) [#/Vol] 3.15 10 6/uL Low 4.20-5.40 [facility] Erythrocyte distribution wid th Auto (RBC) [Ratio]on 11-13-2023 Erythrocyte distribution width (RBC) [Ratio] 14.6 % 11.0-15.0 [facility] Estimated glomerular filtrat ion rate (GFR) non- Americanon 11-13-2023 GFR/1.73 sq M.predicted among non-blacks MDRD (S/P/Bld) [Vol rate/Area] 19 mL/min/{1.73_m2} Low >=60 [facility] Hematocrit Auto (Bld) [Volum e fraction]on 11-13-2023 Hematocrit (Bld) [Volume fraction] 30.1 % Low 36.0-48.0 [facility] Hemoglobin [Mass/volume] in Bloodon 11-13-2023 Hemoglobin (Bld) [Mass/Vol] 8.9 g/dL Low 12.0-16.0 [facility] Laboratory - Chemistry and C hemistry - challengeon 11-13-2023 Albumin [Mass/Vol] 3.1 g/dL Low 3.4-5.0 [facility] Calcium [Mass/Vol] 8.4 mg/dL Low 8.5-10.1 [facility] Chloride [Moles/Vol] 106 mmol/L 98-107 [facility] CO2 [Moles/Vol] 29.3 mmol/L 21.0-32.0 [facility] Creatinine [Mass/Vol] 2.41 mg/dL High 0.55-1.02 [facility] GFR/1.73 sq M.predicted MDRD (S/P/Bld) [Vol rate/Area] 23 mL/min/{1.73_m2} Low >=60 [facility] Glucose [Mass/Vol] 97 mg/dL 74-106 [facility] Potassium [Moles/Vol] 4.8 mmol/L 3.5-5.1 [facility] Sodium [Moles/Vol] 143 mmol/L 136-145 [facility] Urea nitrogen [Mass/Vol] 47.0 mg/dL High 7.0-18.0 [facility] Urea nitrogen/Creatinine [Mass ratio] 19.5 mg/mg [facility] Leukocytes [#/volume] correc katy for nucleated erythrocytes in Blood by Automated counon 11-13-2023 WBC corrected for nucl RBC Auto (Bld) [#/Vol] 5.0 10 3/uL 4.0-11.0 [facility] MCH Auto (RBC) [Entitic mass ]on 11-13-2023 MCH (RBC) [Entitic mass] 28.9 pg 26.7-34.0 [facility] MCHC Auto (RBC) [Mass/Vol]on 11-13-2023 MCHC (RBC) [Mass/Vol] 29.6 g/dL Low 29.9-35.2 [facility] MCV Auto (RBC) [Entitic vol] on 11-13-2023 MCV (RBC) [Entitic vol] 97.7 fL 81.0-99.0 [facility] No Panel Informationon 11-12 Phosphorus Level 4.2 mg/dL 2.6-4.7 [facility] Platelet mean volume Auto (B ld) [Entitic vol]on 11-13-2023 Platelet mean volume (Bld) [Entitic vol] 9.7 fL 9.5-13.5 [facility] Platelets Auto (Bld) [#/Vol] on 11-13-2023 Platelets (Bld) [#/Vol] 228 10 3/uL 150-450 [facility] RBC Auto (Bld) [#/Vol]on RBC (Bld) [#/Vol] 3.08 10 6/uL Low 4.20-5.40 [facility] Serum or plasma anion gap de terminationon 11-13-2023 Anion gap [Moles/Vol] 12.5 mmol/L [facility] Erythrocyte distribution wid th Auto (RBC) [Ratio]on 10-30-2023 Erythrocyte distribution width (RBC) [Ratio] 14.1 % 11.0-15.0 [facility] Estimated glomerular filtrat ion rate (GFR) non- Americanon 10-30-2023 GFR/1.73 sq M.predicted among non-blacks MDRD (S/P/Bld) [Vol rate/Area] 18 mL/min/{1.73_m2} Low >=60 [facility] Hematocrit Auto (Bld) [Volum e fraction]on 10-30-2023 Hematocrit (Bld) [Volume fraction] 28.0 % Low 36.0-48.0 [facility] Hemoglobin [Mass/volume] in Bloodon 10-30-2023 Hemoglobin (Bld) [Mass/Vol] 8.3 g/dL Low 12.0-16.0 [facility] Laboratory - Chemistry and C hemistry - challengeon 10-30-2023 Albumin [Mass/Vol] 2.9 g/dL Low 3.4-5.0 [facility] Calcium [Mass/Vol] 8.6 mg/dL 8.5-10.1 [facility] Chloride [Moles/Vol] 107 mmol/L 98-107 [facility] CO2 [Moles/Vol] 28.1 mmol/L 21.0-32.0 [facility] Creatinine [Mass/Vol] 2.52 mg/dL High 0.55-1.02 [facility] GFR/1.73 sq M.predicted MDRD (S/P/Bld) [Vol rate/Area] 22 mL/min/{1.73_m2} Low >=60 [facility] Glucose [Mass/Vol] 100 mg/dL 74-106 [facility] Potassium [Moles/Vol] 5.7 mmol/L High 3.5-5.1 [facility] Sodium [Moles/Vol] 142 mmol/L 136-145 [facility] Urea nitrogen [Mass/Vol] 43.0 mg/dL High 7.0-18.0 [facility] Urea nitrogen/Creatinine [Mass ratio] 17.1 mg/mg [facility] Leukocytes [#/volume] correc katy for nucleated erythrocytes in Blood by Automated counon 10-30-2023 WBC corrected for nucl RBC Auto (Bld) [#/Vol] 4.6 10 3/uL 4.0-11.0 [facility] MCH Auto (RBC) [Entitic mass ]on 10-30-2023 MCH (RBC) [Entitic mass] 28.7 pg 26.7-34.0 [facility] MCHC Auto (RBC) [Mass/Vol]on 10-30-2023 MCHC (RBC) [Mass/Vol] 29.6 g/dL Low 29.9-35.2 [facility] MCV Auto (RBC) [Entitic vol] on 10-30-2023 MCV (RBC) [Entitic vol] 96.9 fL 81.0-99.0 [facility] No Panel Informationon 10-29 Parathyroid Hormone (Intact) 73 pg/mL Abnormal 15-65 [facility] Comment on above: Performed at: [address] [id number] Director: Deshaun Hunter PhD, Phone: [phone] Phosphorus Level 4.3 mg/dL 2.6-4.7 [facility] Platelet mean volume Auto (B ld) [Entitic vol]on 10-30-2023 Platelet mean volume (Bld) [Entitic vol] 9.8 fL 9.5-13.5 [facility] Platelets Auto (Bld) [#/Vol] on 10-30-2023 Platelets (Bld) [#/Vol] 178 10 3/uL 150-450 [facility] RBC Auto (Bld) [#/Vol]on RBC (Bld) [#/Vol] 2.89 10 6/uL Low 4.20-5.40 [facility] Serum or plasma anion gap de terminationon 10-30-2023 Anion gap [Moles/Vol] 12.6 mmol/L [facility] Erythrocyte distribution wid th Auto (RBC) [Ratio]on 10-07-2023 Erythrocyte distribution width (RBC) [Ratio] 14.2 % 11.0-15.0 [facility] Hematocrit Auto (Bld) [Volum e fraction]on 10-07-2023 Hematocrit (Bld) [Volume fraction] 28.0 % Low 36.0-48.0 [facility] Hemoglobin [Mass/volume] in Bloodon 10-07-2023 Hemoglobin (Bld) [Mass/Vol] 8.6 g/dL Low 12.0-16.0 [facility] Leukocytes [#/volume] correc katy for nucleated erythrocytes in Blood by Automated counon 10-07-2023 WBC corrected for nucl RBC Auto (Bld) [#/Vol] 5.1 10 3/uL 4.0-11.0 [facility] MCH Auto (RBC) [Entitic mass ]on 10-07-2023 MCH (RBC) [Entitic mass] 30.1 pg 26.7-34.0 [facility] MCHC Auto (RBC) [Mass/Vol]on 10-07-2023 MCHC (RBC) [Mass/Vol] 30.7 g/dL 29.9-35.2 [facility] MCV Auto (RBC) [Entitic vol] on 10-07-2023 MCV (RBC) [Entitic vol] 97.9 fL 81.0-99.0 [facility] Platelet mean volume Auto (B ld) [Entitic vol]on 10-07-2023 Platelet mean volume (Bld) [Entitic vol] 10.1 fL 9.5-13.5 [facility] Platelets Auto (Bld) [#/Vol] on 10-07-2023 Platelets (Bld) [#/Vol] 194 10 3/uL 150-450 [facility] RBC Auto (Bld) [#/Vol]on RBC (Bld) [#/Vol] 2.86 10 6/uL Low 4.20-5.40 [facility] Erythrocyte distribution wid th Auto (RBC) [Ratio]on 09-16-2023 Erythrocyte distribution width (RBC) [Ratio] 14.0 % 11.0-15.0 [facility] Estimated glomerular filtrat ion rate (GFR) non- Americanon 09-16-2023 GFR/1.73 sq M.predicted among non-blacks MDRD (S/P/Bld) [Vol rate/Area] 22 mL/min/{1.73_m2} Low >=60 [facility] Hematocrit Auto (Bld) [Volum e fraction]on 09-16-2023 Hematocrit (Bld) [Volume fraction] 25.6 % Low 36.0-48.0 [facility] Hemoglobin [Mass/volume] in Bloodon 09-16-2023 Hemoglobin (Bld) [Mass/Vol] 7.5 g/dL Low 12.0-16.0 [facility] Laboratory - Chemistry and C hemistry - challengeon 09-16-2023 Albumin [Mass/Vol] 3.1 g/dL Low 3.4-5.0 [facility] Calcium [Mass/Vol] 9.2 mg/dL 8.5-10.1 [facility] Chloride [Moles/Vol] 107 mmol/L 98-107 [facility] CO2 [Moles/Vol] 28.2 mmol/L 21.0-32.0 [facility] Creatinine [Mass/Vol] 2.17 mg/dL High 0.55-1.02 [facility] GFR/1.73 sq M.predicted MDRD (S/P/Bld) [Vol rate/Area] 26 mL/min/{1.73_m2} Low >=60 [facility] Glucose [Mass/Vol] 98 mg/dL 74-106 [facility] Potassium [Moles/Vol] 5.1 mmol/L 3.5-5.1 [facility] Sodium [Moles/Vol] 142 mmol/L 136-145 [facility] Urea nitrogen [Mass/Vol] 43.0 mg/dL High 7.0-18.0 [facility] Urea nitrogen/Creatinine [Mass ratio] 19.8 mg/mg [facility] Laboratory - Urinalysison Protein (U) [Mass/Vol] 117.6 mg/dL High <=11.9 F [facility] Leukocytes [#/volume] correc katy for nucleated erythrocytes in Blood by Automated counon 09-16-2023 WBC corrected for nucl RBC Auto (Bld) [#/Vol] 5.4 10 3/uL 4.0-11.0 [facility] MCH Auto (RBC) [Entitic mass ]on 09-16-2023 MCH (RBC) [Entitic mass] 29.2 pg 26.7-34.0 [facility] MCHC Auto (RBC) [Mass/Vol]on 09-16-2023 MCHC (RBC) [Mass/Vol] 29.3 g/dL Low 29.9-35.2 [facility] MCV Auto (RBC) [Entitic vol] on 09-16-2023 MCV (RBC) [Entitic vol] 99.6 fL High 81.0-99.0 [facility] No Panel Informationon 09-15 Parathyroid Hormone (Intact) 75 pg/mL Abnormal 15-65 [facility] Comment on above: Performed at: [address] [id number] Director: Deshaun Hunter PhD, Phone: [phone] Phosphorus Level 4.6 mg/dL 2.6-4.7 [facility] Urine Random Creatinine 38.12 mg/dL 20.00-300. 00 [facility] Platelet mean volume Auto (B ld) [Entitic vol]on 09-16-2023 Platelet mean volume (Bld) [Entitic vol] 10.3 fL 9.5-13.5 [facility] Platelets Auto (Bld) [#/Vol] on 09-16-2023 Platelets (Bld) [#/Vol] 225 10 3/uL 150-450 [facility] RBC Auto (Bld) [#/Vol]on RBC (Bld) [#/Vol] 2.57 10 6/uL Low 4.20-5.40 [facility] Serum or plasma anion gap de terminationon 09-16-2023 Anion gap [Moles/Vol] 11.9 mmol/L [facility] Urine protein/creatinine rat ioon 09-16-2023 Protein/Creatinine (U) [Ratio] 3.08 [facility] Activated partial thrombopla stin time (aPTT) in platelet poor plasma by coagulation aOrdered By: Rin Ramirez on 09-01-2023 aPTT Coag (PPP) [Time] 30.5 s 25.1-36.5 [facility] Comment on above: A hematocrit value g reater than 55% may lead to inaccurate results in coagulation testing. Patients having hematocrit values >55% require a special collection tube for coagulation studies. Please contact the laboratory at [phone] for redraw instructions. Albumin [Mass/volume] in Ser um or Plasma by Bromocresol green (BCG) dye binding methoOrdered By: Rin Ramirez on 09-01-2023 Albumin BCG dye [Mass/Vol] 3.6 g/dL 3.5-5.7 [facility] Automated erythrocytes count in urine sediment (number/area)Ordered By: Rin Ramirez on 09-01-2023 RBC Auto (Urine sed) [#/Area] 50-100 [HPF] High 0-4 [facility] Automated leukocytes count i n urine sediment (number/area)Ordered By: Rin Ramirez on 09-01-2023 WBC Auto (Urine sed) [#/Area] 1-2 [HPF] 0-4 [facility] Bilirubin Test strip Ql (U)O rdered By: Rin Ramirez on 09-01-2023 Bilirubin Ql (U) Negative Negative [facility] CT guided needle placementon 09-01-2023 CT guided needle placement [facility] Main [place] [id number] CT Scan Report Signed Patient: Margie Martínez MR#: [id number] : 1940 Acct:[id number] Age/Sex: 83 / F ADM Date: 09/01/23 Loc: CT Room: Type: [facility] [place] [place] Attending Dr: Rin Ramirez MD Copies to: Rin Ramirez MD Ordering Provider: Rin Ramirez MD Date of Service: 09/01/23 CT/CT guided biopsy: ANGELINA with nephrotic range proteinuria, hypoalbumine ([id number]) CT/CT guided needle placement: random kidney bx [...] Urias Jr., D.O.09/01/2023 1:30 PM Dictation Location: [place] [address] Transcribed By: [facility] 09/01/23 1330 Dictated By: Kj Urias Jr, DO 09/01/23 1328 Signed By: 09/01/23 1330 Normal [facility] Calcium [Mass/volume] in Ser um or PlasmaOrdered By: Rin Ramirez on 09-01-2023 Calcium [Mass/Vol] 8.9 mg/dL 8.6-10.3 [facility] Carbon dioxide, total [Moles /volume] in Serum or PlasmaOrdered By: Rin Ramirez on 09-01-2023 CO2 [Moles/Vol] 30.5 mmol/L 21.0-31.0 [facility] Chloride [Moles/volume] in S adriana or PlasmaOrdered By: Rin Ramirez on 09-01-2023 Chloride [Moles/Vol] 107 mmol/L 98-107 [facility] Color Auto (U)Ordered By: Domingo Ramirez on 09-01-2023 Color (U) Yellow Yellow [facility] Creatinine [Mass/volume] in Serum or PlasmaOrdered By: Rin Ramirez on 09-01-2023 Creatinine [Mass/Vol] 2.02 mg/dL High 0.60-1.20 [facility] Creatinine [Mass/volume] in UrineOrdered By: Rin Ramirez on 09-01-2023 Creatinine (U) [Mass/Vol] 52.0 mg/dL [facility] Comment on above: No reference range e stablished Dipstick and Microscopicon 0 09-01-2023 Appearance (U) Cloudy Critically abnormal Clear [facility] Comment on above: Order Comment: Name Collection Type:: Clean-Voided Midstream Performed By: #### V [id number], BHANU, RENAL, [id number], ADDONUAPLUS, PROCRERAT, FLAKO, MG, PTH, PT, CBCNO, PTT, URMACRERAT, FE and TIBC #### [facility] [address] Bacteria,Urine None Seen Normal None Seen [facility] Comment on above: Order Comment: Name Collection Type:: Clean-Voided Midstream Performed By: #### V [id number], BHANU, RENAL, [id number], ADDONUAPLUS, PROCRERAT, FLAKO, MG, PTH, PT, CBCNO, PTT, URMACRERAT, FE and TIBC #### [facility] [address] [place] [address] [place] Bilirubin,Urine Negative Normal Negative [facility] Comment on above: Order Comment: Name Collection Type:: Clean-Voided Midstream Performed By: #### V [id number], BHANU, RENAL, [id number], ADDONUAPLUS, PROCRERAT, FLAKO, MG, PTH, PT, CBCNO, PTT, URMACRERAT, FE and TIBC #### [address] Color (U) Yellow Normal Yellow [facility] Comment on above: Order Comment: Name Collection Type:: Clean-Voided Midstream Performed By: #### V [id number], BHANU, RENAL, [id number], ADDONUAPLUS, PROCRERAT, FLAKO, MG, PTH, PT, CBCNO, PTT, URMACRERAT, FE and TIBC #### [address] Glucose Ql (U) Normal Normal Normal [facility] Comment on above: Order Comment: Name Collection Type:: Clean-Voided Midstream Performed By: #### V [id number], BHANU, RENAL, [id number], ADDONUAPLUS, PROCRERAT, FLAKO, MG, PTH, PT, CBCNO, PTT, URMACRERAT, FE and TIBC #### [address] Hyaline Casts,Urine 0-8 Normal 0-8 [facility] Comment on above: Order Comment: Name Collection Type:: Clean-Voided Midstream Result Comment: PERF ORMED BY: [place] [address] PATHOLOGIST [employer] JEWELL ROWLEY M.D. Performed By: #### V [id number], BHANU, RENAL, [id number], ADDONUAPLUS, PROCRERAT, FLAKO, MG, PTH, PT, CBCNO, PTT, URMACRERAT, FE and TIBC #### [address] Ketones Ql (U) Negative Normal Negative [facility] Comment on above: Order Comment: Name Collection Type:: Clean-Voided Midstream Performed By: #### V [id number], BHANU, RENAL, [id number], ADDONUAPLUS, PROCRERAT, FLAKO, MG, PTH, PT, CBCNO, PTT, URMACRERAT, FE and TIBC #### [address] Leukocyte esterase Test strip Ql (U) Negative Normal Negative [facility] Comment on above: Order Comment: Name Collection Type:: Clean-Voided Midstream Performed By: #### V [id number], BHANU, RENAL, [id number], ADDONUAPLUS, PROCRERAT, FLAKO, MG, PTH, PT, CBCNO, PTT, URMACRERAT, FE and TIBC #### [address] Nitrite,Urine Negative Normal Negative [facility] Comment on above: Order Comment: Name Collection Type:: Clean-Voided Midstream Performed By: #### V [id number], BHANU, RENAL, [id number], ADDONUAPLUS, PROCRERAT, FLAKO, MG, PTH, PT, CBCNO, PTT, URMACRERAT, FE and TIBC #### [address] Occult Blood,Urine 1+ High Negative [facility] Comment on above: Order Comment: Name Collection Type:: Clean-Voided Midstream Result Comment: PERF ORMED BY: [place] [address] PATHOLOGIST [employer] JEWELL ROWLEY M.D. Performed By: #### V [id number], BHANU, RENAL, [id number], ADDONUAPLUS, PROCRERAT, FLAKO, MG, PTH, PT, CBCNO, PTT, URMACRERAT, FE and TIBC #### [address] pH (U) 7.0 [pH] Normal 5.0-9.0 [facility] Comment on above: Order Comment: Name Collection Type:: Clean-Voided Midstream Performed By: #### V [id number], BHANU, RENAL, [id number], ADDONUAPLUS, PROCRERAT, FLAKO, MG, PTH, PT, CBCNO, PTT, URMACRERAT, FE and TIBC #### [address] Protein (U) [Mass/Vol] 300 mg/dL High Negative [facility] Comment on above: Order Comment: Name Collection Type:: Clean-Voided Midstream Performed By: #### V [id number], BHANU, RENAL, [id number], ADDONUAPLUS, PROCRERAT, FLAKO, MG, PTH, PT, CBCNO, PTT, URMACRERAT, FE and TIBC #### [address] RBC,Urine 50-100 High 0-4 [facility] Comment on above: Order Comment: Name Collection Type:: Clean-Voided Midstream Performed By: #### V [id number], BHANU, RENAL, [id number], ADDONUAPLUS, PROCRERAT, FLAKO, MG, PTH, PT, CBCNO, PTT, URMACRERAT, FE and TIBC #### [address] Specificy [place],Urine 1.015 Normal 1.001-1.03 0 [facility] Comment on above: Order Comment: Name Collection Type:: Clean-Voided Midstream Performed By: #### V [id number], BHANU, RENAL, [id number], ADDONUAPLUS, PROCRERAT, FLAKO, MG, PTH, PT, CBCNO, PTT, URMACRERAT, FE and TIBC #### [address] Squamous Epithelial Cell,Urine 0-1 Normal 0-2 [facility] Comment on above: Order Comment: Name Collection Type:: Clean-Voided Midstream Performed By: #### V [id number], BHANU, RENAL, [id number], ADDONUAPLUS, PROCRERAT, FLAKO, MG, PTH, PT, CBCNO, PTT, URMACRERAT, FE and TIBC #### [address] Urobilinogen,Urine Normal Normal Normal [facility] Comment on above: Order Comment: Name Collection Type:: Clean-Voided Midstream Performed By: #### V [id number], BHANU, RENAL, [id number], ADDONUAPLUS, PROCRERAT, FLAKO, MG, PTH, PT, CBCNO, PTT, URMACRERAT, FE and TIBC #### [facility] [address] WBC,Urine 1-2 Normal 0-4 [facility] Comment on above: Order Comment: Name Collection Type:: Clean-Voided Midstream Performed By: #### V [id number], BHANU, RENAL, [id number], ADDONUAPLUS, PROCRERAT, FLAKO, MG, PTH, PT, CBCNO, PTT, URMACRERAT, FE and TIBC #### [facility] [address] Erythrocyte distribution wid th Auto (RBC) [Ratio]Ordered By: Rin Ramirez on 09-01-2023 Erythrocyte distribution width (RBC) [Ratio] 14.7 % 11.9-15.3 [facility] Ferritinon 09-01-2023 Ferritin [Mass/Vol] 16.5 ng/mL Normal 11.0-306.8 [facility] Comment on above: Performed By: #### V [id number], BHANU, RENAL, [id number], ADDONUAPLUS, PROCRERAT, FLAKO, MG, PTH, PT, CBCNO, PTT, URMACRERAT, FE and TIBC #### [facility] [address] Ferritin [Mass/volume] in Se rum or PlasmaOrdered By: Rin Ramirez on 09-01-2023 Ferritin [Mass/Vol] 16.5 ng/mL 11.0-306.8 [facility] Folate [Mass/volume] in Seru m or PlasmaOrdered By: Rin Ramirez on 09-01-2023 Folate [Mass/Vol] 16.5 ng/mL >5.9 [facility] Comment on above: Folate reference ran ge: >5.9 ng/mlThe WHO technical consultation on folate and vitamin [id number] has determined that folate concentrations lessthan 4 ng/ml are considered deficient. Glucose [Mass/volume] in Ser um or PlasmaOrdered By: Rin Ramirez on 09-01-2023 Glucose [Mass/Vol] 121 mg/dL High 70-100 [facility] Comment on above: ADA recommended refe rence rangeRandom Glucose Reference Range is dependent on time and content of last meal. Glucose of more than 200 mg/dL in a nonstressed, ambulatory subject supports the diagnosis of Diabetes Mellitus. Hematocrit Auto (Bld) [Volum e fraction]Ordered By: Rin Ramirez on 09-01-2023 Hematocrit (Bld) [Volume fraction] 25.0 % Low 34.0-46.4 [facility] Hemoglobin [Mass/volume] in BloodOrdered By: Rin Ramirez on 09-01-2023 Hemoglobin (Bld) [Mass/Vol] 8.0 g/dL Low 11.8-15.4 [facility] Hemogram CBC Without Diffon 09-01-2023 Erythrocyte distribution width (RBC) [Ratio] 14.7 % Normal 11.9-15.3 [facility] Comment on above: Performed By: #### V [id number], BHANU, RENAL, [id number], ADDONUAPLUS, PROCRERAT, FLAKO, MG, PTH, PT, CBCNO, PTT, URMACRERAT, FE and TIBC #### [facility] [address] Hematocrit (Bld) [Volume fraction] 25.0 % Low 34.0-46.4 [facility] Comment on above: Performed By: #### V [id number], BHANU, RENAL, [id number], ADDONUAPLUS, PROCRERAT, FLAKO, MG, PTH, PT, CBCNO, PTT, URMACRERAT, FE and TIBC #### [facility] [address] Hemoglobin (Bld) [Mass/Vol] 8.0 g/dL Low 11.8-15.4 [facility] Comment on above: Performed By: #### V [id number], BHANU, RENAL, [id number], ADDONUAPLUS, PROCRERAT, FLAKO, MG, PTH, PT, CBCNO, PTT, URMACRERAT, FE and TIBC #### [facility] [address] MCH (RBC) [Entitic mass] 29.3 pg Normal 24.7-34.3 [facility] Comment on above: Performed By: #### V [id number], BHANU, RENAL, [id number], ADDONUAPLUS, PROCRERAT, FLAKO, MG, PTH, PT, CBCNO, PTT, URMACRERAT, FE and TIBC #### [address] MCV (RBC) [Entitic vol] 92.0 fL Normal 80-100 [facility] Comment on above: Performed By: #### V [id number], BHANU, RENAL, [id number], ADDONUAPLUS, PROCRERAT, FLAKO, MG, PTH, PT, CBCNO, PTT, URMACRERAT, FE and TIBC #### [address] Mean Corpuscular HGB Conc 31.9 g/dL Low 32.0-35.0 [facility] Comment on above: Performed By: #### V [id number], BHANU, RENAL, [id number], ADDONUAPLUS, PROCRERAT, FLAKO, MG, PTH, PT, CBCNO, PTT, URMACRERAT, FE and TIBC #### [address] Platelet mean volume (Bld) [Entitic vol] 8.1 fL Normal 6.3-10.7 [facility] Comment on above: Result Comment: PERF ORMED BY: [place] [address] PATHOLOGIST [employer] JEWELL ROWLEY M.D. Performed By: #### V [id number], HBANU, RENAL, [id number], ADDONUAPLUS, PROCRERAT, FLAKO, MG, PTH, PT, CBCNO, PTT, URMACRERAT, FE and TIBC #### [address] Platelets (Bld) [#/Vol] 214 10*3/uL Normal 150-450 [facility] Comment on above: Performed By: #### V [id number], BHANU, RENAL, [id number], ADDONUAPLUS, PROCRERAT, FLAKO, MG, PTH, PT, CBCNO, PTT, URMACRERAT, FE and TIBC #### [facility] [address] RBC (Bld) [#/Vol] 2.72 10*6/uL Low 3.60-5.00 [facility] Comment on above: Performed By: #### V [id number], BHANU, RENAL, [id number], ADDONUAPLUS, PROCRERAT, FLAKO, MG, PTH, PT, CBCNO, PTT, URMACRERAT, FE and TIBC #### [facility] [address] WBC (Bld) [#/Vol] 4.7 10*3/uL Normal 3.8-11.6 [facility] Comment on above: Performed By: #### V [id number], BHANU, RENAL, [id number], ADDONUAPLUS, PROCRERAT, FLAKO, MG, PTH, PT, CBCNO, PTT, URMACRERAT, FE and TIBC #### [facility] [address] [place] [address] INR in Platelet poor plasma by Coagulation assayOrdered By: Rin Ramirez on 09-01-2023 INR Coag (PPP) [Relative time] 1.0 {INR} [facility] Comment on above: INR Therapeutic [...] [Mass/volume] in Serum or PlasmaOrdered By: Rin Ramirez on 09-01-2023 Iron [Mass/Vol] 122 ug/dL 50-212 [facility] Iron and TIBC Profileon 08-17 % Iron Saturation 33.9 % Normal 20-50 [facility] Comment on above: Performed By: #### V [id number], BHANU, RENAL, [id number], ADDONUAPLUS, PROCRERAT, FLAKO, MG, PTH, PT, CBCNO, PTT, URMACRERAT, FE and TIBC #### [facility] [address] Iron [Mass/Vol] 122 ug/dL Normal 50-212 [facility] Comment on above: Performed By: #### V [id number], BHANU, RENAL, [id number], ADDONUAPLUS, PROCRERAT, FLAKO, MG, PTH, PT, CBCNO, PTT, URMACRERAT, FE and TIBC #### [facility] [address] [place] [address] Total Iron Binding Capacity 360 ug/dL Normal 255-450 [facility] Comment on above: Performed By: #### V [id number], BHANU, RENAL, [id number], ADDONUAPLUS, PROCRERAT, FLAKO, MG, PTH, PT, CBCNO, PTT, URMACRERAT, FE and TIBC #### [address] Transferrin [Mass/Vol] 257 mg/dL Normal 203-362 [facility] Comment on above: Performed By: #### V [id number], BHANU, RENAL, [id number], ADDONUAPLUS, PROCRERAT, FLAKO, MG, PTH, PT, CBCNO, PTT, URMACRERAT, FE and TIBC #### [address] Iron binding capacity [Mass/ volume] in Serum or PlasmaOrdered By: Rin Ramirez on 09-01-2023 Iron binding capacity [Mass/Vol] 360 ug/dL 255-450 [facility] Iron saturation [Mass Fracti on] in Serum or PlasmaOrdered By: Rin Ramirez on 09-01-2023 Iron saturation [Mass fraction] 33.9 % 20-50 [facility] Ketones Auto test strip (U) [Mass/Vol]Ordered By: Rin Ramirez on 09-01-2023 Ketones (U) [Mass/Vol] Negative Negative [facility] Nahun 09-01-2023 L Specimen: Received: 09/01/23 Status: MAIA Cohen Num: [id number] Spec Type: Surgical Subm Dr: Kj Urias Jr, DO Tissues: A Gross Only ([facility] BX) Procedures: Level 1 Gross Age/ Patient Sex Location Account Attending Physician Margie Martínez 83/F CT [id number] Rin Ramirez MD SPEC NUM: RECD: 09/01/23 STATUS: MAIA REQ NUM: [id number] DEMAR: 09/01/[address]: Kj Urias Jr, DO ENTERED: 09/01/[address]: SPEC TYPE: Surgical DEPT: S ORDERED: Level 1 Gross ORDERED: Level 1 Gross Supplemental Report Addendum 1 Entered: 09/03/23 Supplemental for findings of Consultation Report from Y[facility] in [facility]: DIAGNOSIS: -Fibrillary Glomerulopathy -Arterionephrosclerosis Note: -Please also see entire report on file for detailed description Addendum Signed (signature on file) Chris Lin MD 09/03/2333 Specimen: [id number] Received: 09/01/23 Status: MAIA Noel Num: [id number] Spec Type: Surgical Subm Dr: Kj Urias Jr, DO Tissues: A Gross Only ([facility] BX) Procedures: Level 1 Gross Patient: Margie Martínez [id number] (Continued) Specimen: Received: 09/01/23 (Continued) Signed (signature on file) Chris Lin MD 09/03/23 0929 Specimen: Received: 09/01/23 Status: MAIA Cohen Num: [id number] Spec Type: Surgical Subm Dr: Kj Urias Jr, Tissues: A Gross Only ([facility] BX) Procedures: Level 1 Gross Patient: Margie Martínez [id number] (Continued) Specimen: [id number] Received: 09/01/23 (Continued) Pathological Diagnosis Right kidney random core biopsy: -3 feldman-pink needle cores to be placed in special fixation solutions and to be forwarded to Yashi for final consultation interpretation. Gross only examination Gross Description In formalin labeled right kidney tissue are three feldman-pink needle cores ranging in size from 1.4 cm to 1.9 cm long x 0.1 cm average diameter. Submitted entirely in Lewis's solution and in 10% neutral buffered formalin. RG/LUIGI Clinical history: ANGELINA, proteinuria, hypoalbuminemia CPT Codes 08483 Specimen: [id number] Received: 09/01/23 Status: SOUT Req Num: [id number] Spec Type: Surgical Subm Dr: Kj Urias Jr, DO Tissues: A Gross Only ([facility] BX) Procedures: Level 1 Gross Patient: Margie Martínez [id number] (Continued) Signed (signature on file) Chris Lin MD 09/03/23 0929 Normal [facility] Laboratory - UrinalysisOrder ed By: Rin Ramirez on 09-01-2023 Hyaline casts LM Ql (Urine sed) 0-8 [LPF] 0-8 [facility] Leukocytes [#/volume] correc katy for nucleated erythrocytes in Blood by Automated counOrdered By: Rin Ramirez on 09-01-2023 WBC corrected for nucl RBC Auto (Bld) [#/Vol] 4.7 10*3/uL 3.8-11.6 [facility] MCH Auto (RBC) [Entitic mass ]Ordered By: Rin Ramirez on 09-01-2023 MCH (RBC) [Entitic mass] 29.3 pg 24.7-34.3 [facility] MCHC Auto (RBC) [Mass/Vol]Or dered By: Rin Ramirez on 09-01-2023 MCHC (RBC) [Mass/Vol] 31.9 g/dL Low 32.0-35.0 [facility] MCV Auto (RBC) [Entitic vol] Ordered By: Rin Ramirez on 09-01-2023 MCV (RBC) [Entitic vol] 92.0 fL 80-100 [facility] Magnesiumon 09-01-2023 Magnesium [Mass/Vol] 1.9 mg/dL Normal 1.9-2.7 [facility] Comment on above: Performed By: #### V [id number], BHANU, RENAL, [id number], ADDONUAPLUS, PROCRERAT, FLAKO, MG, PTH, PT, CBCNO, PTT, URMACRERAT, FE and TIBC #### [facility] [address] Magnesium [Mass/volume] in S adriana or PlasmaOrdered By: Rin Ramirez on 09-01-2023 Magnesium [Mass/Vol] 1.9 mg/dL 1.9-2.7 [facility] MicroAlb Creat Ratio,Uon Albumin DL <= 20 mg/L (U) [Mass/Vol] mg/dL High 0.0-1.8 [facility] Comment on above: Performed By: #### V [id number], BHANU, RENAL, [id number], ADDONUAPLUS, PROCRERAT, FLAKO, MG, PTH, PT, CBCNO, PTT, URMACRERAT, FE and TIBC #### [facility] [address] Creatinine, Urine (Random) 52.0 mg/dL Normal [facility] Comment on above: Result Comment: No r eference range established Performed By: #### V [id number], BHANU, RENAL, [id number], ADDONUAPLUS, PROCRERAT, FLAKO, MG, PTH, PT, CBCNO, PTT, URMACRERAT, FE and TIBC #### [facility] [address] Microalbumin/Creatinin e Ratio Not performed Normal 0.0-30.0 [facility] Comment on above: Performed By: #### V [id number], BHANU, RENAL, [id number], ADDONUAPLUS, PROCRERAT, FLAKO, MG, PTH, PT, CBCNO, PTT, URMACRERAT, FE and TIBC #### [facility] [address] [place] [address] Microalbumin [Mass/volume] i n UrineOrdered By: Rin Ramirez on 09-01-2023 Albumin DL <= 20 mg/L (U) [Mass/Vol] mg/dL High 0.0-1.8 [facility] Nitrite Test strip Ql (U)Ord ered By: Rin Ramirez on 09-01-2023 Nitrite Ql (U) Negative Negative [facility] No Panel InformationOrdered By: Rin Ramirez on 09-01-2023 Estimated GFR (CKD-EPI) 24.043 mL/Min [facility] Creatinine Clearance (Chem 21.55 [facility] Parathyrin.intact [Mass/volu me] in Serum or PlasmaOrdered By: Rin Ramirez on 09-01-2023 Parathyrin.intact [Mass/Vol] 188.2 pg/mL High 12-88 [facility] Parathyroid Hormone Intacton 09-01-2023 Parathyroid Hormone Intact 188.2 pg/mL High [facility] Group Comment on above: Result Comment: PERF ORMED BY: [place] [address] PATHOLOGIST [employer] JEWELL ROWLEY M.D. Performed By: #### V [id number], BHANU, RENAL, [id number], ADDONUAPLUS, PROCRERAT, FLAKO, MG, PTH, PT, CBCNO, PTT, URMACRERAT, FE and TIBC #### [facility] [address] [id number] [facility] Partial Thromboplastin Timeo n 09-01-2023 aPTT Coag (Bld) [Time] 30.5 s Normal 25.1-36.5 [facility] Comment on above: Result Comment: A he matocrit value greater than 55% may lead to inaccurate results in coagulation testing. Patients having hematocrit values >55% require a special collection tube for coagulation studies. Please contact the laboratory at [phone] for redraw instructions. PERFORMED BY: [place] [address] PATHOLOGIST [employer]SULTANT JEWELL ROWLEY M.D. Performed By: #### V [id number], BHANU, RENAL, [id number], ADDONUAPLUS, PROCRERAT, FLAKO, MG, PTH, PT, CBCNO, PTT, URMACRERAT, FE and TIBC #### [facility] [address] [place], [place] [id number] [facility] Phosphate [Mass/volume] in S adriana or PlasmaOrdered By: Rin Ramirez on 09-01-2023 Phosphate [Mass/Vol] 4.2 mg/dL 2.5-4.5 [facility] Platelet mean volume Auto (B ld) [Entitic vol]Ordered By: Rin Ramirez on 09-01-2023 Platelet mean volume (Bld) [Entitic vol] 8.1 fL 6.3-10.7 [facility] Platelets Auto (Bld) [#/Vol] Ordered By: Rin Ramirez on 09-01-2023 Platelets (Bld) [#/Vol] 214 10*3/uL 150-450 [facility] Potassium [Moles/volume] in Serum or PlasmaOrdered By: Rin Darbys on 09-01-2023 Potassium [Moles/Vol] 4.7 mmol/L 3.5-5.1 [facility] Protein Auto test strip (U) [Mass/Vol]Ordered By: Rin Ramirez on 09-01-2023 Protein (U) [Mass/Vol] 300 mg/dL High Negative [facility] Protein Creat Ratio Ur Rando mon 09-01-2023 Protein (U) [Mass/Vol] 199 mg/dL High 0-9 [facility] Comment on above: Performed By: #### V [id number], BHANU, RENAL, [id number], ADDONUAPLUS, PROCRERAT, FLAKO, MG, PTH, PT, CBCNO, PTT, URMACRERAT, FE and TIBC #### [facility] [address] [id number] [facility] Urine Protein/Creatinine Ratio 3827 mg/g{Cre} High 0-200 [facility] Comment on above: Performed By: #### V [id number], BHANU, RENAL, [id number], ADDONUAPLUS, PROCRERAT, FLAKO, MG, PTH, PT, CBCNO, PTT, URMACRERAT, FE and TIBC #### [facility] [address] [id number] [facility] Protein [Mass/volume] in Uri neOrdered By: Rin Ramirez on 09-01-2023 Protein (U) [Mass/Vol] 199 mg/dL High 0-9 [facility] Prothrombin Time INRon 08-31 INR Coag (PPP) [Relative time] 1.0 {INR} Normal [facility] Comment on above: Result [...] 3 - 4.5 Performed By: #### V [id number], BHANU, RENAL, [id number], ADDONUAPLUS, PROCRERAT, FLAKO, MG, PTH, PT, CBCNO, PTT, URMACRERAT, FE and TIBC #### [facility] [address] [id number] [facility] PT Coag (PPP) [Time] 11.4 s Normal 9.0-12.9 [facility] Comment on above: Result Comment: A he matocrit value greater than 55% may lead to inaccurate results in coagulation testing. Patients having hematocrit values >55% require a special collection tube for coagulation studies. Please contact the laboratory at [phone] for redraw instructions. Performed By: #### V [id number], BHANU, RENAL, [id number], ADDONUAPLUS, PROCRERAT, FLAKO, MG, PTH, PT, CBCNO, PTT, URMACRERAT, FE and TIBC #### [facility] [address] Prothrombin time (PT)Ordered By: Rin Ramirez on 09-01-2023 PT Coag (PPP) [Time] 11.4 s 9.0-12.9 [facility] Comment on above: A hematocrit value g reater than 55% may lead to inaccurate results in coagulation testing. Patients having hematocrit values >55% require a special collection tube for coagulation studies. Please contact the laboratory at [phone] for redraw instructions. RBC Auto (Bld) [#/Vol]Ordere d By: Rin Ramirez on 09-01-2023 RBC (Bld) [#/Vol] 2.72 10*6/uL Low 3.60-5.00 [facility] Renal Function Panelon 08-31 Albumin [Mass/Vol] 3.6 g/dL Normal 3.5-5.7 [facility] Comment on above: Performed By: #### V [id number], BHANU, RENAL, [id number], ADDONUAPLUS, PROCRERAT, FLAKO, MG, PTH, PT, CBCNO, PTT, URMACRERAT, FE and TIBC #### [address] Anion gap [Moles/Vol] 9.2 mmol/L Normal 6.0-15.0 [facility] Comment on above: Performed By: #### V [id number], BHANU, RENAL, [id number], ADDONUAPLUS, PROCRERAT, FLAKO, MG, PTH, PT, CBCNO, PTT, URMACRERAT, FE and TIBC #### [facility] [address] [place] [address] Calcium [Mass/Vol] 8.9 mg/dL Normal 8.6-10.3 [facility] Comment on above: Performed By: #### V [id number], BHANU, RENAL, [id number], ADDONUAPLUS, PROCRERAT, FLAKO, MG, PTH, PT, CBCNO, PTT, URMACRERAT, FE and TIBC #### [address] Chloride [Moles/Vol] 107 mmol/L Normal 98-107 [facility] Comment on above: Performed By: #### V [id number], BHANU, RENAL, [id number], ADDONUAPLUS, PROCRERAT, FLAKO, MG, PTH, PT, CBCNO, PTT, URMACRERAT, FE and TIBC #### [address] CO2 [Moles/Vol] 30.5 mmol/L Normal 21.0-31.0 [facility] Comment on above: Performed By: #### V [id number], BHANU, RENAL, [id number], ADDONUAPLUS, PROCRERAT, FLAKO, MG, PTH, PT, CBCNO, PTT, URMACRERAT, FE and TIBC #### [address] Creatinine [Mass/Vol] 2.02 mg/dL High 0.60-1.20 [facility] Comment on above: Performed By: #### V [id number], BHANU, RENAL, [id number], ADDONUAPLUS, PROCRERAT, FLAKO, MG, PTH, PT, CBCNO, PTT, URMACRERAT, FE and TIBC #### [address] Creatinine Clr Calc Pharmacy 21.55 Normal [facility] Comment on above: Performed By: #### V [id number], BHANU, RENAL, [id number], ADDONUAPLUS, PROCRERAT, FLAKO, MG, PTH, PT, CBCNO, PTT, URMACRERAT, FE and TIBC #### [address] GFR/1.73 sq M.predicted MDRD (S/P/Bld) [Vol rate/Area] 24.043 mL/min/{1.73_m2} Normal [facility] Comment on above: Performed By: #### V [id number], BHANU, RENAL, [id number], ADDONUAPLUS, PROCRERAT, FLAKO, MG, PTH, PT, CBCNO, PTT, URMACRERAT, FE and TIBC #### [address] Glucose [Mass/Vol] 121 mg/dL High 70-100 [facility] Comment on above: Result Comment: [facility] Glucose Reference Range is dependent on time and content of last meal. Glucose of more than 200 mg/dL in a nonstressed, ambulatory subject supports the diagnosis of Diabetes Mellitus. ADA recommended reference range Performed By: #### V [id number], BHANU, RENAL, [id number], ADDONUAPLUS, PROCRERAT, FLAKO, MG, PTH, PT, CBCNO, PTT, URMACRERAT, FE and TIBC #### [address] Phosphate [Mass/Vol] 4.2 mg/dL Normal 2.5-4.5 [facility] Comment on above: Performed By: #### V [id number], BHANU, RENAL, [id number], ADDONUAPLUS, PROCRERAT, FLAKO, MG, PTH, PT, CBCNO, PTT, URMACRERAT, FE and TIBC #### [address] Potassium [Moles/Vol] 4.7 mmol/L Normal 3.5-5.1 [facility] Comment on above: Performed By: #### V [id number], BHANU, RENAL, [id number], ADDONUAPLUS, PROCRERAT, FLAKO, MG, PTH, PT, CBCNO, PTT, URMACRERAT, FE and TIBC #### [address] Sodium [Moles/Vol] 142 mmol/L Normal 136-145 [facility] Comment on above: Performed By: #### V [id number], BHANU, RENAL, [id number], ADDONUAPLUS, PROCRERAT, FLAKO, MG, PTH, PT, CBCNO, PTT, URMACRERAT, FE and TIBC #### [address] Urea nitrogen [Mass/Vol] 32 mg/dL High 7-25 [facility] Comment on above: Performed By: #### V [id number], BHANU, RENAL, [id number], ADDONUAPLUS, PROCRERAT, FLAKO, MG, PTH, PT, CBCNO, PTT, URMACRERAT, FE and TIBC #### [facility] [address] Serum or plasma anion gap de terminationOrdered By: Rin Ramirez on 09-01-2023 Anion gap [Moles/Vol] 9.2 mmol/L 6.0-15.0 [facility] Sodium [Moles/volume] in Ser um or PlasmaOrdered By: Rin Ramirez on 09-01-2023 Sodium [Moles/Vol] 142 mmol/L 136-145 [facility] Sodium [Moles/volume] in Uri neOrdered By: Rin Ramirez on 09-01-2023 Sodium (U) [Moles/Vol] 137 mmol/L [facility] Comment on above: No reference range e stablished Sodium, Urine (Random)on Sodium (U) [Moles/Vol] 137 mmol/L Normal [facility] Comment on above: Result Comment: No r eference range established PERFORMED BY: [place] [address] PATHOLOGIST [employer]ANT JEWELL ROWLEY M.D. Performed By: #### V [id number], BHANU, RENAL, [id number], ADDONUAPLUS, PROCRERAT, FLAKO, MG, PTH, PT, CBCNO, PTT, URMACRERAT, FE and TIBC #### [facility] [address] Specific gravity Auto test s trip (U) [Rel density]Ordered By: Rin Ramirez on 09-01-2023 Specific gravity (U) [Rel density] 1.015 1.001-1.03 0 [facility] Squamous epithelial cells de tection in urine sediment by light microscopyOrdered By: Rin Ramirez on 09-01-2023 Epithelial cells.squamous LM Ql (Urine sed) 0-1 [HPF] 0-2 [facility] Transferrin [Mass/volume] in Serum or PlasmaOrdered By: Rin Ramirez on 09-01-2023 Transferrin [Mass/Vol] 257 mg/dL 203-362 [facility] Urea nitrogen [Mass/volume] in Serum or PlasmaOrdered By: Rin Ramirez on 09-01-2023 Urea nitrogen [Mass/Vol] 32 mg/dL High 7-25 [facility] Urine bacteria detection by automated methodOrdered By: Rin Ramirez on 09-01-2023 Bacteria Auto Ql (U) None seen None Seen [facility] Urine clarity by refractomet ry automatedOrdered By: Rin Ramirez on 09-01-2023 Clarity Refractometry automated (U) Cloudy Abnormal Clear [facility] Urine glucose measurement by automated test strip (mass/volume)Ordered By: Rin Ramirez on 09-01-2023 Glucose Auto test strip (U) [Mass/Vol] Normal mg/dL Normal [facility] Urine hemoglobin detection b y automated test stripOrdered By: Rin Ramirez on 09-01-2023 Hemoglobin Auto test strip Ql (U) 1+ High Negative [facility] Urine leukocyte esterase det ection by automated test stripOrdered By: Rin Ramirez on 09-01-2023 Leukocyte esterase Auto test strip Ql (U) Negative Negative [facility] Urine microalbumin/creatinin e mass ratioOrdered By: Rin Ramirez on 09-01-2023 Albumin/Creatinine DL <= 20 mg/L (U) [Mass ratio] TNP [facility] Comment on above: Test not performed Urine protein/creatinine rat ioOrdered By: Rin Ramirez on 09-01-2023 Protein/Creatinine (U) [Ratio] 3827 mg/g{Cre} High 0-200 [facility] Urobilinogen Auto test strip (U) [Mass/Vol]Ordered By: Rin Ramirez on 09-01-2023 Urobilinogen (U) [Mass/Vol] Normal mg/dL Normal [facility] Vit. B12/Folate Profileon Cobalamin (Vitamin B12) [Mass/Vol] 862 pg/mL Normal 180-914 [facility] Comment on above: Performed By: #### V [id number], BHANU, RENAL, [id number], ADDONUAPLUS, PROCRERAT, FLAKO, MG, PTH, PT, CBCNO, PTT, URMACRERAT, FE and TIBC #### [facility] [address] Folate 16.5 ng/mL Normal >5.9 [facility] Comment on above: Result Comment: Arlen te reference range: >5.9 ng/ml The WHO technical consultation on folate and vitamin b12 deficiencies has determined that folate concentrations less than 4 ng/ml are considered deficient. Performed By: #### V [id number], BHANU, RENAL, [id number], ADDONUAPLUS, PROCRERAT, FLAKO, MG, PTH, PT, CBCNO, PTT, URMACRERAT, FE and TIBC #### [address] Vitamin B12 ser/plasOrdered By: Rin Ramirez on 09-01-2023 Cobalamin (Vitamin B12) [Mass/Vol] 862 pg/mL 180-914 [facility] Vitamin D 25 Hydroxy Totalon 09-01-2023 Vitamin D 25 Hydroxy Total 18.3 ng/mL Low 30-100 [facility] Comment on above: Result Comment: YULY MIN D STATUS 25(OH)VITAMIN D RANGE (ng/mL) Deficient <20 Insufficient 20 to <30 Sufficient 30 to 100 Reference: Jacoby MF,Rell NC, Xochitl WILLIAMSON, et al. Evaluation,treatment, and prevention of vitamin D deficiency; an Endocrine Society clinical practice guideline. JCEM. 2010; 96(7):1911-30. PERFORMED BY: [place] [address] PATHOLOGIST [employer]ANT JEWELL ROWLEY M.D. Performed By: #### V [id number], BHANU, RENAL, [id number], ADDONUAPLUS, PROCRERAT, FLAKO, MG, PTH, PT, CBCNO, PTT, URMACRERAT, FE and TIBC #### [facility] [address] Vitamin D+Metabolites [Mass/ volume] in Serum or PlasmaOrdered By: Rin Ramirez on 09-01-2023 Vitamin D+Metabolites [Mass/Vol] 18.3 ng/mL Low 30-100 [facility] Comment on above: VITAMIN D STATUS 25( OH)VITAMIN D RANGE (ng/mL) Deficient <20 Insufficient 20 to <30Sufficient 30 to 100Reference: Jacoby MF,Rell CARR, Xochitl WILLIAMSON, et al. Evaluation,treatment, and prevention of vitamin D deficiency; an Endocrine Society clinical practice guideline. JCEM. 2010; 96(7):1911-30. pH Auto test strip (U)Ordere d By: Rin Ramirez on 09-01-2023 pH (U) 7.0 [pH] 5.0-9.0 [facility] HbA1c HPLC (Bld) [Mass fract ion]on 08-20-2023 HbA1c (Bld) [Mass fraction] 5.7 % [facility] No Panel Informationon 08-19 Bedside Glucose 106 [facility] No Panel Informationon 08-04 Miscellaneous Test COMMENT . [facility] Comment on above: Test Ordered: [id number] Prot Electro+Interp, 24-Hr UrProtein,Total,Urine 132.1 mg/dL CB Reference Range: Not Estab.Prot,24hr calculated 2741 [H ] mg/24 hr CB Reference Range: 30-150Albumin, U 66.3 % CB Reference Range: .Zduke-2-Txadfzjw, U 7.5 % CB Reference Range: .Oavsi-1-Xdplfzgw, U 10.6 % CB Reference Range: .Beta Globulin, U 11.9 % CB Reference Range: .Gamma Globulin, U 3.7 % CB Reference Range: .M-Tr, % Note: % CB Not Observed Reference Range: Not ObservedM-Tr, mg/24 hr [facility] [employer]OL[employer] Reference Range: .Please note: Comment CB Reference Range: .Protein electrophoresis scan will follow via computer,mail, or bar captain delivery.P E Interpretation, U Comment CB Reference Range: .The urine protein electrophoresis pattern reflects thepresence of specific higher molecular mass proteins withmoderate proteinuria. This pattern may be characterized asrepresenting a severe selective glomerular nephropathyindicating increased glomerular permeability. Monoclonalprotein is not apparent.Performed at: [email or web address] [address] [id number] Director: Deshaun Hunter PhD, Phone: [phone] Activated partial thrombopla stin time (aPTT) in platelet poor plasma by coagulation aon 08-01-2023 aPTT Coag (PPP) [Time] 38.6 s 22.3-36.2 [facility] Atypical perinuclear antineu trophil cytoplasmic antibodies measurementon 08-01-2023 Neutrophil cytoplasmic Ab.perinuclear.atypica l IF (S) [Titer] <1:20 titer Neg:<1:20 [facility] Comment on above: The atypical pANCA p attern has been observed in asignificant percentage of patients with ulcerative colitis,primary sclerosing cholangitis and autoimmune hepatitis. Automated urine specific gra vity by refractometryon 08-01-2023 Specific gravity Refractometry automated (U) [Rel density] 1.020 1.005-1.02 5 [facility] Bilirubin Auto test strip (U ) [Mass/Vol]on 08-01-2023 Bilirubin (U) [Mass/Vol] Negative NEGATIVE [facility] Cefuroxime free [Mass/Vol]on 08-01-2023 Anti-Nuclear Antibody Profile Negative Negative [facility] Comment on above: Performed at: [employer] [address] [id number] Director: Deshaun Hunter PhD, Phone: [phone] Performed at: [employer] [id number] Director: Deshaun Hunter PhD, Phone: [phone] Color Auto (U)on 08-01-2023 Color (U) LT. YELLOW YELLOW [facility] Erythrocyte distribution wid th Auto (RBC) [Ratio]on 08-01-2023 Erythrocyte distribution width (RBC) [Ratio] 13.1 % 11.0-15.0 [facility] Estimated glomerular filtrat ion rate (GFR) non- Americanon 08-01-2023 GFR/1.73 sq M.predicted among non-blacks MDRD (S/P/Bld) [Vol rate/Area] 27 mL/min/{1.73_m2} >=60 [facility] Globulin Calc (S) [Mass/Vol] on 08-01-2023 Globulin (S) [Mass/Vol] 3.3 g/dL [facility] Glomerular basement membrane Ab [Units/volume] in Serum by Immunoassayon 08-01-2023 Glomerular basement membrane Ab IA Qn (S) <0.2 units 0.0-0.9 [facility] Comment on above: Performed at: [employer] [address] [id number] Director: Jhon Roberts MD, Phone: [phone] at: [employer] [address] [id number] Director: Deshaun Hunter PhD, Phone: [phone] HBV surface Ag IA Qlon 07-31 Hepatitis B Surface Antigen Negative Negative [facility] Comment on above: Performed at: [employer] [address] [id number] Director: Deshaun Hunter PhD, Phone: [phone] Performed at: [employer] [address] [id number] Director: Deshaun Hunter PhD, Phone: [phone] Hematocrit Auto (Bld) [Volum e fraction]on 08-01-2023 Hematocrit (Bld) [Volume fraction] 27.0 % 36.0-48.0 [facility] Hemoglobin [Mass/volume] in Bloodon 08-01-2023 Hemoglobin (Bld) [Mass/Vol] 7.8 g/dL 12.0-16.0 [facility] INR in Platelet poor plasma by Coagulation assayon 08-01-2023 INR Coag (PPP) [Relative time] 2.43 {INR} [facility] Comment on above: DESIRED INR:2.0-3.0 CONDITIONS NOT LISTED BELOW2.5-3.5 FOR PROSTHETIC HEART VALVE REPLACEMENT2.5-3.5 RECURRENT THROMBOSIS Immunofixation for Urineon 0 08-01-2023 Interpretation Immunofixation (U) [Interp] Comment . [facility] Comment on above: No monoclonality det ected.Performed at: - [facility] [id number] Director: Deshaun Hunter PhD, Phone: [phone] Iron binding capacity [Mass/ volume] in Serum or Plasmaon 08-01-2023 Iron binding capacity [Mass/Vol] 270.0 ug/dL 250.0-450. 0 [facility] Iron saturation [Mass Fracti on] in Serum or Plasmaon 08-01-2023 Iron saturation [Mass fraction] 14.8 % [facility] Ketones Auto test strip (U) [Mass/Vol]on 08-01-2023 Ketones (U) [Mass/Vol] Negative NEGATIVE Fi [facility] Laboratory - Chemistry and C hemistry - challengeon 08-01-2023 Albumin [Mass/Vol] 2.7 g/dL 3.4-5.0 [facility] ALP [Catalytic activity/Vol] 50 U/L 46-116 [facility] ALT [Catalytic activity/Vol] 18 U/L 14-59 [facility] AST [Catalytic activity/Vol] 12 U/L 15-37 [facility] Bilirubin [Mass/Vol] 0.2 mg/dL 0.2-1.0 [facility] Calcium [Mass/Vol] 8.8 mg/dL 8.5-10.1 [facility] Chloride [Moles/Vol] 105 mmol/L 98-107 [facility] CO2 [Moles/Vol] 32.1 mmol/L 21.0-32.0 [facility] Cobalamin (Vitamin B12) [Mass/Vol] 603.0 pg/mL 193.0-986. 0 [facility] Creatinine [Mass/Vol] 1.80 mg/dL 0.55-1.02 [facility] Ferritin [Mass/Vol] 32.0 ng/mL 8.0-252.0 [facility] GFR/1.73 sq M.predicted MDRD (S/P/Bld) [Vol rate/Area] 33 mL/min/{1.73_m2} >=60 [facility] Glucose [Mass/Vol] 112 mg/dL 74-106 [facility] Iron [Mass/Vol] 40.0 ug/dL 50.0-170.0 [facility] Magnesium [Mass/Vol] 1.9 mg/dL 1.8-2.4 [facility] Potassium [Moles/Vol] 4.3 mmol/L 3.5-5.1 [facility] Protein [Mass/Vol] 6.0 g/dL 6.4-8.2 [facility] Sodium [Moles/Vol] 145 mmol/L 136-145 [facility] Urea nitrogen [Mass/Vol] 33.0 mg/dL 7.0-18.0 [facility] Urea nitrogen/Creatinine [Mass ratio] 18.3 mg/mg [facility] Laboratory - Urinalysison Protein (U) [Mass/Vol] 181.1 mg/dL <=11.9 F [facility] Leukocytes [#/volume] correc katy for nucleated erythrocytes in Blood by Automated counon 08-01-2023 WBC corrected for nucl RBC Auto (Bld) [#/Vol] 6.4 10 3/uL 4.0-11.0 [facility] MCH Auto (RBC) [Entitic mass ]on 08-01-2023 MCH (RBC) [Entitic mass] 29.2 pg 26.7-34.0 [facility] MCHC Auto (RBC) [Mass/Vol]on 08-01-2023 MCHC (RBC) [Mass/Vol] 28.9 g/dL 29.9-35.2 [facility] MCV Auto (RBC) [Entitic vol] on 08-01-2023 MCV (RBC) [Entitic vol] 101.1 fL 81.0-99.0 [facility] Myeloperoxidase Ab [Units/vo lume] in Serum by Immunoassayon 08-01-2023 Myeloperoxidase Ab IA Qn (S) <0.2 units 0.0-0.9 [facility] No Panel Informationon 07-31 25-Hydroxy Vitamin D Total 16.6 ng/mL [facility] Comment on above: <20 ng/mL Vit D defi cient20-<30 ng/mL Vit D [id number] ng/mL Vit D sufficient>100 ng/mL Potential Toxicity Folate 13.00 ng/mL 8.60-58.90 [facility] Miscellaneous Test COMMENT . [facility] Comment on above: Test Ordered: [id number] Cryoglobulin, Ql, Serum, RflxCryoglobulin, Ql, Serum, Rflx Comment Reference Range: None detectedNone Detected at 72 hoursThis test was developed and its performance characteristicsdetermined by [employer]. It has not been cleared orapproved by the Food and Drug Administration.Performed at: [employer] [facility] [address] [id number] Director: Deshaun Hunter PhD, Phone: [phone] Parathyroid Hormone (Intact) 60 pg/mL [facility] Comment on above: Performed at: [employer] [facility] [address] [id number] Director: Deshaun Hunter PhD, Phone: [phone] Perinuclear ANCA (p-ANCA) Antibody <1:20 titer Neg:<1:20 [facility] Comment on above: The presence of posi tive fluorescence exhibiting P-ANCA orC-ANCA patterns alone is not specific for the diagnosis ofWegener's Granulomatosis (WG) or microscopic polyangiitis.Decisions about treatment should not be based solely onANCA IFA results. The International ANCA Group Consensusrecommends follow up testing of positive sera with both MO-3 and MPO-ANCA enzyme immunoassays. As many as 5% serumsamples are positive only by EIA. Ref. AM J Clin Phinlr1128;111:507-513. Phosphorus Level 3.8 mg/dL 2.6-4.7 [facility] Urine Random Creatinine 27.68 mg/dL 20.00-300. 00 [facility] Platelet mean volume Auto (B ld) [Entitic vol]on 08-01-2023 Platelet mean volume (Bld) [Entitic vol] 10.5 fL 9.5-13.5 [facility] Platelets Auto (Bld) [#/Vol] on 08-01-2023 Platelets (Bld) [#/Vol] 227 10 3/uL 150-450 [facility] Protein Auto test strip (U) [Mass/Vol]on 08-01-2023 Protein (U) [Mass/Vol] 100 mg/dL NEG/TRACE Fi [facility] Proteinase 3 Ab [Units/volum e] in Serum by Immunoassayon 08-01-2023 Proteinase 3 Ab IA Qn (S) <0.2 units 0.0-0.9 [facility] Prothrombin time (PT)on 07-17 PT Coag (PPP) [Time] 24.5 s 9.0-11.6 [facility] RBC Auto (Bld) [#/Vol]on RBC (Bld) [#/Vol] 2.67 10 6/uL 4.20-5.40 [facility] Serum classic neutrophil cyt oplasmic antibody titer by immunofluorescenceon 08-01-2023 Neutrophil cytoplasmic Ab.classic IF (S) [Titer] <1:20 titer Neg:<1:20 [facility] Serum or plasma albumin/glob ulin mass ratioon 08-01-2023 Albumin/Globulin [Mass ratio] 0.8 {ratio} [facility] Serum or plasma anion gap de terminationon 08-01-2023 Anion gap [Moles/Vol] 12.2 mmol/L Fi [facility] Serum or plasma complement C 3 measurement (mass/volume)on 08-01-2023 Complement C3 [Mass/Vol] 140 mg/dL 82-167 [facility] Serum or plasma complement C 4 measurement (mass/volume)on 08-01-2023 Complement C4 [Mass/Vol] 30 mg/dL 12-38 [facility] Comment on above: Performed at: [address] [id number] Director: Deshaun Hunter PhD, Phone: [phone] Specific gravity Auto test s trip (U) [Rel density]on 08-01-2023 Specific gravity (U) [Rel density] CLEAR CLEAR [facility] Urine glucose measurement by test strip (mass/volume)on 08-01-2023 Glucose Test strip (U) [Mass/Vol] Negative NEGATIVE [facility] Urine hemoglobin detection b y automated test stripon 08-01-2023 Hemoglobin Auto test strip Ql (U) LARGE NEGATIVE [facility] Urine nitrite detection by a utomated test stripon 08-01-2023 Nitrite Auto test strip Ql (U) Negative NEGATIVE [facility] Urine protein/creatinine rat ioon 08-01-2023 Protein/Creatinine (U) [Ratio] 6.54 [facility] Urobilinogen Auto test strip (U) [Mass/Vol]on 08-01-2023 Urobilinogen Qn (U) 0.2 {Radha'U}/dL 0.2-1.0 [facility] pH Auto test strip (U)on pH (U) 7.0 [pH] 5.0-9.0 [facility] A1C HEMOGLOBINon 02-19-2023 HbA1c (Bld) [Mass fraction] 5.8 % [facility] [employer] Other Glucose - [employer] Glucose [Mass/Vol] 174 mg/dL [employer] Other HbA1c (Bld) [Mass fraction]o n 02-19-2023 A1C HEMOGLOBIN [employer] [facility] [employer] Other PROF 14(COMP METB)on 023 Albumin [Mass/Vol] 2.9 g/dL Critically low 3.4-5.0 [facility] Comment on above: Performed By: #### C MP #### [facility] [address] [place] [address] Dr. Lamar Lin Albumin/Globulin [Mass ratio] 0.8 {ratio} Normal [facility] Comment on above: Performed By: #### C MP #### [facility] [address] [address] [address] Lamar Lin ALP [Catalytic activity/Vol] 70 U/L Normal 46-116 [facility] Comment on above: Performed By: #### C MP #### [facility] [address] [address] [address] Lamar Lin ALT [Catalytic activity/Vol] 14 U/L Normal 14-59 [facility] Comment on above: Performed By: #### C MP #### [facility] [address] [address] [address] Lamar Lin Anion gap [Moles/Vol] 10.5 mmol/L Normal [facility] Comment on above: Performed By: #### C MP #### [facility] [address] [address] [address] Lamar Lin AST [Catalytic activity/Vol] 10 U/L Critically low 15-37 [facility] Comment on above: Performed By: #### C MP #### [facility] [address] [address] [address] Lamar Lin Bilirubin [Mass/Vol] 0.2 mg/dL Normal 0.2-1.0 [facility] Comment on above: Performed By: #### C MP #### [facility] [address] [address] [address] Lamar Lin Calcium [Mass/Vol] 9.4 mg/dL Normal 8.5-10.1 [facility] Comment on above: Performed By: #### C MP #### [facility] [address] [address] [address] Lamar Lin Chloride [Moles/Vol] 104 mmol/L Normal 98-107 [facility] Comment on above: Performed By: #### C MP #### [facility] [address] [address] [address] Lamar Lin CO2 [Moles/Vol] 34.9 mmol/L Critically high 21.0-32.0 [facility] Comment on above: Performed By: #### C MP #### [facility] [address] [address] [address] Lamar Lin Creatinine [Mass/Vol] 0.96 mg/dL Normal 0.55-1.02 [facility] Comment on above: Performed By: #### C MP #### [facility] [address] [address] [address] Lamar Lin EGFR-AF CYPRIOT >60 Normal >=60 [facility] Comment on above: Performed By: #### C MP #### [facility] [address] [address] [address] Lamar Lin EGFR-NON AF CYPRIOT 56 mL/min/1.73m2 Critically low >=60 [facility] Comment on above: Performed By: #### C MP #### [facility] [address] [address] [address] Lamar Lin Globulin (S) [Mass/Vol] 3.7 g/dL Normal [facility] Comment on above: Performed By: #### C MP #### [facility] [address] [address] [address] Lamar Lin Glucose [Mass/Vol] 132 mg/dL Critically high 74-106 T [facility] Comment on above: Performed By: #### C MP #### [facility] [address] [address] [address] Lamar Lin Potassium [Moles/Vol] 4.4 mmol/L Normal 3.5-5.1 [facility] Comment on above: Performed By: #### C MP #### [facility] [address] [address] [address] Lamar Lin Protein [Mass/Vol] 6.6 g/dL Normal 6.4-8.2 [facility] Comment on above: Performed By: #### C MP #### [facility] [address] [address] [address] Lamar Lin Sodium [Moles/Vol] 145 mmol/L Normal 136-[address] [facility] Comment on above: Performed By: #### C MP #### [facility] [address] [address] [address] Lamar Lin Urea nitrogen [Mass/Vol] 28.0 mg/dL Critically high 7.0-18.0 [facility] Comment on above: Performed By: #### C MP #### [facility] [address] [address] [address] Lamar Lin Urea nitrogen/Creatinine [Mass ratio] 29.2 mg/mg Normal [facility] Comment on above: Performed By: #### C MP #### [facility] [address] [address] [address] Lamar Lin A1C with Estimated Average G karinn 08-19-2022 HbA1c (Bld) [Mass fraction] 6.500 % High 4.3-5.6 % [employer] Other HbA1c (Bld) [Mass fraction] 140 mg/dL [employer] Other Comprehensive Metabolic Pane nahun 08-19-2022 Albumin [Mass/Vol] 3.329831 g/dL Normal 3.5-5.7 g/dL [employer] Other Albumin/Globulin [Mass ratio] 1.7 {ratio} [employer] Other ALP [Catalytic activity/Vol] 56 U/L Normal 34-104 U/L [employer] Other ALT [Catalytic activity/Vol] 14 U/L Normal 7-52 U/L [employer] Other AST [Catalytic activity/Vol] 15 U/L Normal 13-39 U/L [employer] Other Bilirubin [Mass/Vol] 0.5340322 mg/dL Low 0.3- 1.0 mg/dL [employer] Other Calcium [Mass/Vol] 9.0720285 mg/dL Normal 8.6-10 .3 mg/dL [employer] Other Chloride [Moles/Vol] 103 mmol/L Normal 98-107 mmol/L [employer] Other CO2 [Moles/Vol] 34.86677697 mmol/L High 21.0-3 1.0 mmol/L [employer] Other Creatinine [Mass/Vol] 0.97345350 mg/dL Normal 0. 60-1.20 mg/dL [employer] Other GFR/1.73 sq M.predicted MDRD (S/P/Bld) [Vol rate/Area] mL/min/{1.73_m2} [employer] Other Glucose [Mass/Vol] 156 mg/dL High 70-100 mg/dL [employer] Other Potassium [Moles/Vol] 4.17183113 mmol/L Normal 3 .5-5.1 mmol/L [employer] Other Protein [Mass/Vol] 5.339486 g/dL Low 6.4-8.9 g/dL [employer] Other Sodium [Moles/Vol] 144 mmol/L Normal 136-145 mmol/L [employer] Other Urea nitrogen [Mass/Vol] 24 mg/dL Normal 7-25 mg/dL [employer] Other Comprehensive Metabolic Panel 2.1 g/dL [employer] Other Glucose - FING[employer] Glucose [Mass/Vol] 205 mg/dL [employer] Other Lipid Panelon 08-19-2022 Cholesterol [Mass/Vol] 172 mg/dL Normal 140-2 00 mg/dL [employer] Other Cholesterol in HDL [Mass/Vol] 33 mg/dL Low 35-85 mg/dL [employer] Other Cholesterol in LDL Elph Qn 95 mg/dL Normal 0-100 mg/dL [employer] Other Cholesterol.total/Chol esterol in HDL [Mass ratio] 5.2 {ratio} <5.0 [employer] Other Lipid Panel 219 mg/dL High 0-149 mg/dL [employer] Other Lipid Panel 43 mg/dL [employer] Other Micro[employer]b Creat Ratio,Uon Albumin DL <= 20 mg/L (U) [Mass/Vol] mg/dL High 0.0-1.8 [employer] Other Albumin/Creatinine DL <= 20 mg/L (U) [Mass ratio] TNP 0.0-30.0 [employer] Other Creatinine (U) [Mass/Vol] 52.4941334 mg/dL [employer] Other Vitamin B12on 08-19-2022 Cobalamin (Vitamin B12) [Mass/Vol] 345 pg/mL Normal 180-914 pg/mL [employer] Other A1C HEMOGLOBINon 02-27-2022 HbA1c (Bld) [Mass fraction] 6.1 % [employer] Other Glucose - FINGER [employer]on Glucose [Mass/Vol] 159 mg/dL [employer] Other HbA1c (Bld) [Mass fraction]o n 02-27-2022 A1C HEMOGLOBIN [facility] [employer] Other FREE T4on 10-30-2021 Free T4 [Mass/Vol] 1.11 ng/dL Normal 0.76-1.46 [facility] Comment on above: Performed By: #### F T4 #### [facility] [address] [place] [address] Dr. Lamar Lin T4on 10-30-2021 T4 [Mass/Vol] 8.30 ug/dL Normal 4.80-13.90 [facility] Comment on above: Performed By: #### T 4, TSH #### [facility] [address] [place] [address] Dr. Lamar Lin TSHon 10-30-2021 TSH 2.475 uIU/mL Normal 0.358-3.74 0 [facility] Comment on above: Performed By: #### T 4, TSH #### [facility] [address] [place] [address] Dr. Lamar Lin Glucoseon 05-23-2021 Glucose [Mass/Vol] 167 mg/dL [facility] [employer] Other Vital Signs Date Time Vital Sign Value Performing Clinician Facility 07-27-2024 13:51-0400 Body height 152.4 cm [facility] 07-27-2024 13:51-0400 Body mass index (BMI) [Ratio] 40.4 kg/m2 [facility] 07-27-2024 13:51-0400 Body weight 93.89 kg [facility] 07-27-2024 13:51-0400 Diastolic blood pressure 64 mm[Hg] [facility] 07-27-2024 13:51-0400 Heart rate 66 /min [facility] 07-27-2024 13:51-0400 Inhaled oxygen flow rate 2 L/min [facility] 07-27-2024 13:51-0400 Respiratory rate 18 /min [facility] 07-27-2024 13:51-0400 SaO2% (BldA) [Mass fraction] 97 % [facility] 07-27-2024 13:51-0400 Systolic blood pressure 115 mm[Hg] [facility] 2024 09:55-0500 Body height 152.4 cm [facility] 2024 09:55-0500 Body mass index (BMI) [Ratio] 42.6 kg/m2 [facility] 2024 09:55-0500 Body temperature 98.2 [degF] [facility] 2024 09:55-0500 Body weight 99.05 kg [facility] 2024 09:55-0500 Diastolic blood pressure 68 mm[Hg] [facility] 2024 09:55-0500 Heart rate 71 /min [facility] 2024 09:55-0500 Inhaled oxygen flow rate 2 L/min [facility] 2024 09:55-0500 Respiratory rate 20 /min [facility] 2024 09:55-0500 SaO2% (BldA) [Mass fraction] 95 % [facility] 2024 09:55-0500 Systolic blood pressure 145 mm[Hg] [facility] 06-17-2024 13:57-0500 Body height 152.4 cm [facility] 06-17-2024 13:57-0500 Body mass index (BMI) [Ratio] 39.6 kg/m2 [facility] 06-17-2024 13:57-0500 Body weight 92.19 kg [facility] 06-17-2024 13:57-0500 Diastolic blood pressure 61 mm[Hg] [facility] 06-17-2024 13:57-0500 Heart rate 66 /min [facility] 06-17-2024 13:57-0500 Respiratory rate 16 /min [facility] 06-17-2024 13:57-0500 SaO2% (BldA) [Mass fraction] 98 % [facility] 06-17-2024 13:57-0500 Systolic blood pressure 118 mm[Hg] [facility] 06-14-2024 13:56-0500 Body height 152.4 cm [facility] 06-14-2024 13:56-0500 Body mass index (BMI) [Ratio] 40.2 kg/m2 [facility] 06-14-2024 13:56-0500 Body weight 93.52 kg [facility] 06-14-2024 13:56-0500 Diastolic blood pressure 79 mm[Hg] [facility] 06-14-2024 13:56-0500 Heart rate 73 /min [facility] 06-14-2024 13:56-0500 Respiratory rate 18 /min [facility] 06-14-2024 13:56-0500 SaO2% (BldA) [Mass fraction] 95 % [facility] 06-14-2024 13:56-0500 Systolic blood pressure 158 mm[Hg] [facility] 06-03-2024 11:34-0500 Body height 152.4 cm [facility] 06-03-2024 11:34-0500 Body mass index (BMI) [Ratio] 39.4 kg/m2 [facility] 06-03-2024 11:34-0500 Body temperature 97 [degF] [facility] 06-03-2024 11:34-0500 Body weight 91.73 kg [facility] 06-03-2024 11:34-0500 Diastolic blood pressure 59 mm[Hg] [facility] 06-03-2024 11:34-0500 Heart rate 72 /min [facility] 06-03-2024 11:34-0500 Respiratory rate 16 /min [facility] 06-03-2024 11:34-0500 SaO2% (BldA) [Mass fraction] 95 % [facility] 06-03-2024 11:34-0500 Systolic blood pressure 140 mm[Hg] [facility] 05-04-2024 11:13-0500 Body height 152.4 cm [facility] 05-04-2024 11:13-0500 Body mass index (BMI) [Ratio] 41.1 kg/m2 [facility] 05-04-2024 11:13-0500 Body temperature 97.6 [degF] [facility] 05-04-2024 11:13-0500 Body weight 95.42 kg [facility] 05-04-2024 11:13-0500 Diastolic blood pressure 68 mm[Hg] [facility] 05-04-2024 11:13-0500 Heart rate 70 /min [facility] 05-04-2024 11:13-0500 Inhaled oxygen flow rate 2 L/min [facility] 05-04-2024 11:13-0500 Respiratory rate 18 /min [facility] 05-04-2024 11:13-0500 SaO2% (BldA) [Mass fraction] 94 % [facility] 05-04-2024 11:13-0500 Systolic blood pressure 143 mm[Hg] [facility] 04-20-2024 13:22-0500 Body temperature 97.5 [degF] [facility] 04-20-2024 13:22-0500 Diastolic blood pressure 60 mm[Hg] [facility] 04-20-2024 13:22-0500 Heart rate 61 /min [facility] 04-20-2024 13:22-0500 Inhaled oxygen flow rate 2 L/min [facility] 04-20-2024 13:22-0500 SaO2% (BldA) [Mass fraction] 96 % [facility] 04-20-2024 13:22-0500 Systolic blood pressure 105 mm[Hg] [facility] 03-16-2024 13:41-0400 Body height 152.4 cm Luci Prado DPM Work Phone: [facility] 03-16-2024 13:41-0400 Body mass index (BMI) [Ratio] 39.06 kg/m2 Luci Stalin DPM Work Phone: [facility] 03-16-2024 13:41-0400 Body weight 90.72 kg Luci Prado DPM Work Phone: [facility] 03-02-2024 08:56-0400 Body height 152.4 cm [facility] 03-02-2024 08:56-0400 Body mass index (BMI) [Ratio] 39.4 kg/m2 [facility] 03-02-2024 08:56-0400 Body temperature 97.7 [degF] [facility] 03-02-2024 08:56-0400 Body weight 91.62 kg [facility] 03-02-2024 08:56-0400 Diastolic blood pressure 60 mm[Hg] [facility] 03-02-2024 08:56-0400 Heart rate 63 /min [facility] 03-02-2024 08:56-0400 Inhaled oxygen flow rate 2 L/min [facility] 03-02-2024 08:56-0400 Respiratory rate 18 /min [facility] 03-02-2024 08:56-0400 SaO2% (BldA) [Mass fraction] 97 % [facility] 03-02-2024 08:56-0400 Systolic blood pressure 114 mm[Hg] [facility] 02-10-2024 10:30-0400 Body height 152.4 cm [facility] 02-10-2024 10:30-0400 Body mass index (BMI) [Ratio] 38.7 kg/m2 [facility] 02-10-2024 10:30-0400 Body temperature 97.5 [degF] [facility] 02-10-2024 10:30-0400 Body weight 89.81 kg [facility] 02-10-2024 10:30-0400 Diastolic blood pressure 75 mm[Hg] [facility] 02-10-2024 10:30-0400 Heart rate 70 /min [facility] 02-10-2024 10:30-0400 Inhaled oxygen flow rate 2 L/min [facility] 02-10-2024 10:30-0400 Respiratory rate 18 /min [facility] 02-10-2024 10:30-0400 SaO2% (BldA) [Mass fraction] 97 % [facility] 02-10-2024 10:30-0400 Systolic blood pressure 160 mm[Hg] [facility] 01-27-2024 13:50-0400 Body height 152.4 cm [facility] 01-27-2024 13:50-0400 Body mass index (BMI) [Ratio] 39.6 kg/m2 [facility] 01-27-2024 13:50-0400 Body temperature 98.2 [degF] [facility] 01-27-2024 13:50-0400 Body weight 92.07 kg [facility] 01-27-2024 13:50-0400 Diastolic blood pressure 72 mm[Hg] [facility] 01-27-2024 13:50-0400 Heart rate 72 /min [facility] 01-27-2024 13:50-0400 Inhaled oxygen flow rate 2 L/min [facility] 01-27-2024 13:50-0400 Respiratory rate 18 /min [facility] 01-27-2024 13:50-0400 SaO2% (BldA) [Mass fraction] 98 % [facility] 01-27-2024 13:50-0400 Systolic blood pressure 166 mm[Hg] [facility] 01-13-2024 11:05-0400 Body height 152.4 cm [facility] 01-13-2024 11:05-0400 Body mass index (BMI) [Ratio] 39.6 kg/m2 [facility] 01-13-2024 11:05-0400 Body temperature 97.9 [degF] [facility] 01-13-2024 11:05-0400 Body weight 92 kg [facility] 01-13-2024 11:05-0400 Diastolic blood pressure 70 mm[Hg] [facility] 01-13-2024 11:05-0400 Heart rate 68 /min [facility] 01-13-2024 11:05-0400 Inhaled oxygen flow rate 2 L/min [facility] 01-13-2024 11:05-0400 Respiratory rate 18 /min [facility] 01-13-2024 11:05-0400 SaO2% (BldA) [Mass fraction] 96 % [facility] 01-13-2024 11:05-0400 Systolic blood pressure 128 mm[Hg] [facility] 12-30-2023 13:44-0400 Body height 152.4 cm [facility] 12-30-2023 13:44-0400 Body mass index (BMI) [Ratio] 39.6 kg/m2 [facility] 12-30-2023 13:44-0400 Body temperature 97.6 [degF] [facility] 12-30-2023 13:44-0400 Body weight 92.24 kg [facility] 12-30-2023 13:44-0400 Diastolic blood pressure 68 mm[Hg] [facility] 12-30-2023 13:44-0400 Heart rate 68 /min [facility] 12-30-2023 13:44-0400 Inhaled oxygen flow rate 2 L/min [facility] 12-30-2023 13:44-0400 Respiratory rate 18 /min [facility] 12-30-2023 13:44-0400 SaO2% (BldA) [Mass fraction] 96 % [facility] 12-30-2023 13:44-0400 Systolic blood pressure 131 mm[Hg] [facility] 12-11-2023 11:31-0400 Body height 152.4 cm [facility] 12-11-2023 11:31-0400 Body mass index (BMI) [Ratio] 40.8 kg/m2 [facility] 12-11-2023 11:31-0400 Body temperature 97.1 [degF] [facility] 12-11-2023 11:31-0400 Body weight 94.85 kg [facility] 12-11-2023 11:31-0400 Diastolic blood pressure 60 mm[Hg] [facility] 12-11-2023 11:31-0400 Heart rate 68 /min [facility] 12-11-2023 11:31-0400 Inhaled oxygen flow rate 2 L/min [facility] 12-11-2023 11:31-0400 Respiratory rate 18 /min [facility] 12-11-2023 11:31-0400 SaO2% (BldA) [Mass fraction] 95 % [facility] 12-11-2023 11:31-0400 Systolic blood pressure 130 mm[Hg] [facility] 12-08-2023 10:40-0400 Body height 152.4 cm [facility] 12-08-2023 10:40-0400 Body mass index (BMI) [Ratio] 40.8 kg/m2 [facility] 12-08-2023 10:40-0400 Body weight 94.97 kg [facility] 12-08-2023 10:40-0400 Diastolic blood pressure 61 mm[Hg] [facility] 12-08-2023 10:40-0400 Heart rate 56 /min [facility] 12-08-2023 10:40-0400 Respiratory rate 18 /min [facility] 12-08-2023 10:40-0400 SaO2% (BldA) [Mass fraction] 95 % [facility] 12-08-2023 10:40-0400 Systolic blood pressure 119 mm[Hg] [facility] 11-18-2023 10:03-0400 Body height 152.4 cm ALFREDO Henry Work Phone: [facility] 11-18-2023 10:03-0400 Body mass index (BMI) [Ratio] 39.2 kg/m2 [employer] Anika Elaine Work Phone: [facility] 11-18-2023 10:03-0400 Body temperature 98 [degF] [employer] Anika Elaine Work Phone: [facility] 11-18-2023 10:03-0400 Body weight 91.22 kg [employer] Anika Elaine Work Phone: [facility] 11-18-2023 10:03-0400 Diastolic blood pressure 71 mm[Hg] [employer] Anika Elaine Work Phone: [facility] 11-18-2023 10:03-0400 Heart rate 70 /min [employer] Anika Elaine Work Phone: [facility] 11-18-2023 10:03-0400 Inhaled oxygen flow rate 2 L/min [employer] Anikasophy Marsmer Work Phone: [facility] 11-18-2023 10:03-0400 Respiratory rate 16 /min [employer] Anikasophy Marsmer Work Phone: [facility] 11-18-2023 10:03-0400 SaO2% (BldA) [Mass fraction] 94 % [employer] Anika Marsmer Work Phone: [facility] 11-18-2023 10:03-0400 Systolic blood pressure 162 mm[Hg] [employer] Anikasophy Marsmer Work Phone: [facility] 11-05-2023 14:04-0400 Body height 152.4 cm [employer] Anikasophy Marsmer Work Phone: [facility] 11-05-2023 14:04-0400 Body mass index (BMI) [Ratio] 39 kg/m2 [employer] Anika Elaine Work Phone: [facility] 11-05-2023 14:04-0400 Body temperature 98.1 [degF] [employer] Anika Elaine Work Phone: [facility] 11-05-2023 14:04-0400 Body weight 90.71 kg [employer] Anika Henry Work Phone: [facility] 11-05-2023 14:04-0400 Diastolic blood pressure 68 mm[Hg] [employer] Anikasophy Marsmer Work Phone: [facility] 11-05-2023 14:04-0400 Heart rate 56 /min [employer] Anika Henry Work Phone: [facility] 11-05-2023 14:04-0400 Inhaled oxygen flow rate 2 L/min [employer] Anika Henry Work Phone: [facility] 11-05-2023 14:04-0400 Respiratory rate 18 /min [employer] Anika Henry Work Phone: [facility] 11-05-2023 14:04-0400 SaO2% (BldA) [Mass fraction] 92 % [employer] Anika Henry Work Phone: [facility] 11-05-2023 14:04-0400 Systolic blood pressure 136 mm[Hg] [employer] Anika Henry Work Phone: [facility] 10-15-2023 13:42-0400 Body height 152.4 cm [employer] Anika Henry Work Phone: [facility] 10-15-2023 13:42-0400 Body mass index (BMI) [Ratio] 38.7 kg/m2 [employer] Anika Henry Work Phone: [facility] 10-15-2023 13:42-0400 Body temperature 97.6 [degF] [employer] Anika Marsmer Work Phone: [facility] 10-15-2023 13:42-0400 Body weight 90.03 kg [employer] Anika Marsmer Work Phone: [facility] 10-15-2023 13:42-0400 Diastolic blood pressure 70 mm[Hg] [employer] Anikasophy Marsmer Work Phone: [facility] 10-15-2023 13:42-0400 Heart rate 60 /min [employer] Anika Elaine Work Phone: [facility] 10-15-2023 13:42-0400 Inhaled oxygen flow rate 2 L/min [employer] Anika Elaine Work Phone: [facility] 10-15-2023 13:42-0400 Respiratory rate 18 /min [employer] Anika Elaine Work Phone: [facility] 10-15-2023 13:42-0400 SaO2% (BldA) [Mass fraction] 97 % [employer] Anika Elaine Work Phone: [facility] 10-15-2023 13:42-0400 Systolic blood pressure 143 mm[Hg] [employer] Anika Elaine Work Phone: [facility] 09-23-2023 09:37-0400 Body height 152.4 cm [employer] Anika Elaine Work Phone: [facility] 09-23-2023 09:37-0400 Body mass index (BMI) [Ratio] 38.5 kg/m2 [employer] Anika Elaine Work Phone: [facility] 09-23-2023 09:37-0400 Body temperature 97.9 [degF] [employer] Anikasophy Marsmer Work Phone: [facility] 09-23-2023 09:37-0400 Body weight 89.44 kg [employer] Anika Elaine Work Phone: [facility] 09-23-2023 09:37-0400 Diastolic blood pressure 72 mm[Hg] [employer] Anika Elaine Work Phone: [facility] 09-23-2023 09:37-0400 Heart rate 67 /min [employer] Anika Elaine Work Phone: [facility] 09-23-2023 09:37-0400 Inhaled oxygen flow rate 2 L/min [employer] Anika Elaine Work Phone: [facility] 09-23-2023 09:37-0400 Respiratory rate 18 /min [employer] Anika Henry Work Phone: [facility] 09-23-2023 09:37-0400 SaO2% (BldA) [Mass fraction] 97 % [facility] AND GAS WELDER-C Anika Marsmer Work Phone: [facility] 09-23-2023 09:37-0400 Systolic blood pressure 149 mm[Hg] ARC AND GAS WELDER-C Anikasophy Marsmer Work Phone: [facility] 09-09-2023 14:15-0400 Body height 152.4 cm ARC AND GAS WELDER-C Anikasophy Marsmer Work Phone: [facility] 09-09-2023 14:15-0400 Body mass index (BMI) [Ratio] 38.9 kg/m2 ARC AND GAS WELDER-C Anika Marsmer Work Phone: [facility] 09-09-2023 14:15-0400 Body temperature 97.2 [degF] ARC AND GAS WELDER-C Anika Henry Work Phone: [facility] 09-09-2023 14:15-0400 Body weight 90.49 kg ARC AND GAS WELDER-C Anika Henry Work Phone: [facility] 09-09-2023 14:15-0400 Diastolic blood pressure 77 mm[Hg] ARC AND GAS WELDER-C Anika Henry Work Phone: [facility] 09-09-2023 14:15-0400 Heart rate 70 /min ARC AND GAS WELDER-C Anika Marsmer Work Phone: [facility] 09-09-2023 14:15-0400 Inhaled oxygen flow rate 2 L/min ARC AND GAS WELDER-C Anikasophy Marsmer Work Phone: [facility] 09-09-2023 14:15-0400 Respiratory rate 18 /min ARC AND GAS WELDER-C Anika Marsmer Work Phone: [facility] 09-09-2023 14:15-0400 SaO2% (BldA) [Mass fraction] 97 % ARC AND GAS WELDER-C Anika Marsmer Work Phone: [facility] 09-09-2023 14:15-0400 Systolic blood pressure 147 mm[Hg] ARC AND GAS WELDER-C Anikasophy Marsmer Work Phone: [facility] 09-01-2023 11:35-0400 Diastolic blood pressure 73 mm[Hg] ARC AND GAS WELDER-C Anika Elaine Work Phone: [facility] 09-01-2023 11:35-0400 Heart rate 62 /min ARC AND GAS WELDER-C Anika Elaine Work Phone: [facility] 09-01-2023 11:35-0400 Inhaled oxygen flow rate 2 L/min ARC AND GAS WELDER-C Anikasophy Marsmer Work Phone: [facility] 09-01-2023 11:35-0400 Respiratory rate 18 /min ARC AND GAS WELDER-C Anikasophy Henry Work Phone: [facility] 09-01-2023 11:35-0400 SaO2% (BldA) [Mass fraction] 96 % ARC AND GAS WELDER-C Anika Henry Work Phone: [facility] 09-01-2023 11:35-0400 Systolic blood pressure 164 mm[Hg] ARC AND GAS WELDER-C Anikasophy Henry Work Phone: [facility] 09-01-2023 09:17-0400 Body height 152.4 cm ARC AND GAS WELDER-C Anika Marsmer Work Phone: [facility] 09-01-2023 09:17-0400 Body weight 93.44 kg ARC AND GAS WELDER-C Anika Marsmer Work Phone: [facility] 08-20-2023 10:20-0400 Body height 152.4 cm [facility] 08-20-2023 10:20-0400 Body mass index (BMI) [Ratio] 40.2 kg/m2 [facility] 08-20-2023 10:20-0400 Body weight 93.44 kg [facility] 08-20-2023 10:20-0400 Diastolic blood pressure 84 mm[Hg] [facility] 08-20-2023 10:20-0400 Heart rate 73 /min [facility] 08-20-2023 10:20-0400 Inhaled oxygen flow rate 2 L/min [facility] 08-20-2023 10:20-0400 Respiratory rate 18 /min [facility] 08-20-2023 10:20-0400 SaO2% (BldA) [Mass fraction] 94 % [facility] 08-20-2023 10:20-0400 Systolic blood pressure 176 mm[Hg] [facility] 08-13-2023 10:41-0400 Body height 152.4 cm [facility] 08-13-2023 10:41-0400 Body mass index (BMI) [Ratio] 40.1 kg/m2 [facility] 08-13-2023 10:41-0400 Body temperature 97.5 [degF] [facility] 08-13-2023 10:41-0400 Body weight 93.15 kg [facility] 08-13-2023 10:41-0400 Diastolic blood pressure 72 mm[Hg] [facility] 08-13-2023 10:41-0400 Heart rate 77 /min [facility] 08-13-2023 10:41-0400 Inhaled oxygen flow rate 2 L/min [facility] 08-13-2023 10:41-0400 Respiratory rate 20 /min [facility] 08-13-2023 10:41-0400 SaO2% (BldA) [Mass fraction] 95 % [facility] 08-13-2023 10:41-0400 Systolic blood pressure 162 mm[Hg] [facility] 04-22-2023 10:20-0500 Body height 152.4 cm [employer] Other [facility] 04-22-2023 10:20-0500 Body mass index (BMI) [Ratio] 39.64 kg/m2 [employer] Other [employer] Other 04-22-2023 10:20-0500 Body weight 92.08 kg [employer] Other [facility] [employer] Other 04-22-2023 10:20-0500 Body weight 92.07 kg [facility] 04-22-2023 10:20-0500 Diastolic blood pressure 70 mm[Hg] Rin Ramirez Other [facility] 04-22-2023 10:20-0500 Respiratory rate 18 /min Rin Ramirez Other [facility] [employer] Other 04-22-2023 10:20-0500 SaO2% (BldA) [Mass fraction] 97 % Rin Ramirez Other [facility] [employer] Other 04-22-2023 10:20-0500 Systolic blood pressure 138 mm[Hg] Rin Ramirez Other [facility] 02-19-2023 09:15-0400 Body height 152.4 cm Tondra Mapus Other [employer] Other 02-19-2023 09:15-0400 Body mass index (BMI) [Ratio] 40.21 kg/m2 Tondra Mapus Other [employer] Other 02-19-2023 09:15-0400 Body weight 93.4 kg Tondra Mapus Other [employer] Other 02-19-2023 09:15-0400 Diastolic blood pressure 64 mm[Hg] Tondra Mapus Other [employer] Other 02-19-2023 09:15-0400 Respiratory rate 18 /min Tondra Mapus Other [employer] Other 02-19-2023 09:15-0400 SaO2% (BldA) [Mass fraction] 95 % Tondra Mapus Other [employer] Other 02-19-2023 09:15-0400 Systolic blood pressure 129 mm[Hg] Tondra Mapus Other [employer] Other 02-12-2023 09:00-0400 Body height 152.4 cm Tondra Mapus Other [employer] Other 02-12-2023 09:00-0400 Body mass index (BMI) [Ratio] 40.07 kg/m2 Tondra Mapus Other [employer] Other 02-12-2023 09:00-0400 Body weight 93.08 kg Tondra Mapus Other [employer] Other 10-22-2022 10:00-0400 Body height 152.4 cm Aziz Voltaires Other [employer] Other 10-22-2022 10:00-0400 Body mass index (BMI) [Ratio] 40.23 kg/m2 Aziz Bakhous Other [employer] Other 10-22-2022 10:00-0400 Body temperature 97.4 [degF] Aziz Bakhous Other [employer] Other 10-22-2022 10:00-0400 Body weight 93.44 kg Aziz Bakhous Other [employer] Other 10-22-2022 10:00-0400 Diastolic blood pressure 78 mm[Hg] Aziz Bakhous Other [employer] Other 10-22-2022 10:00-0400 Respiratory rate 20 /min Rin Ramirez Other [employer] Other 10-22-2022 10:00-0400 SaO2% (BldA) [Mass fraction] 92 % Rin Darbys Other [employer] Other 10-22-2022 10:00-0400 Systolic blood pressure 146 mm[Hg] Rin Darbys Other [employer] Other 08-19-2022 10:15-0400 Body height 152.4 cm Tondra Mapus Other [employer] Other 08-19-2022 10:15-0400 Body mass index (BMI) [Ratio] 39.82 kg/m2 Tondra Mapus Other [employer] Other 08-19-2022 10:15-0400 Body weight 92.49 kg Tondra Mapus Other [employer] Other 08-19-2022 10:15-0400 Diastolic blood pressure 63 mm[Hg] Tondra Mapus Other [employer] Other 08-19-2022 10:15-0400 Respiratory rate 20 /min Tondra Mapus Other [employer] Other 08-19-2022 10:15-0400 SaO2% (BldA) [Mass fraction] 95 % Tondra Mapus Other [employer] Other 08-19-2022 10:15-0400 Systolic blood pressure 136 mm[Hg] Tondra Mapus Other [employer] Other 02-27-2022 10:15-0400 Body height 152.4 cm Tondra Mapus Other [employer] Other 02-27-2022 10:15-0400 Body mass index (BMI) [Ratio] 41.79 kg/m2 Tondra Mapus Other [employer] Other 02-27-2022 10:15-0400 Body weight 97.07 kg Tondra Mapus Other [employer] Other 02-27-2022 10:15-0400 Diastolic blood pressure 55 mm[Hg] Tondra Mapus Other [employer] Other 02-27-2022 10:15-0400 Respiratory rate 20 /min Tondra Mapus Other [employer] Other 02-27-2022 10:15-0400 SaO2% (BldA) [Mass fraction] 97 % Tondra Mapus Other [employer] Other 02-27-2022 10:15-0400 Systolic blood pressure 130 mm[Hg] Tondra Mapus Other [employer] Other 10-23-2021 11:00-0400 Body height 152.4 cm [employer] Other [employer] Other 10-23-2021 11:00-0400 Body mass index (BMI) [Ratio] 44.05 kg/m2 [employer] Other [employer] Other 10-23-2021 11:00-0400 Body temperature 97.5 [degF] Rin Ramirez Other [employer] Other 10-23-2021 11:00-0400 Body weight 102.33 kg Rin Ramirez Other [employer] Other 10-23-2021 11:00-0400 Diastolic blood pressure 72 mm[Hg] Rin Ramirez Other [employer] Other 10-23-2021 11:00-0400 Respiratory rate 20 /min Rin Ramirez Other [employer] Other 10-23-2021 11:00-0400 SaO2% (BldA) [Mass fraction] 94 % Rin Ramirez Other [employer] Other 10-23-2021 11:00-0400 Systolic blood pressure 135 mm[Hg] Rin Ramirez Other [employer] Other 05-23-2021 10:15-0500 Body height 152.4 cm Chandrakanta Mapus Other [employer] Other 05-23-2021 10:15-0500 Body mass index (BMI) [Ratio] 43.25 kg/m2 Tondra Mapus Other [employer] Other 05-23-2021 10:15-0500 Body weight 100.47 kg Tondra Mapus Other [employer] Other 05-23-2021 10:15-0500 Diastolic blood pressure 57 mm[Hg] Tondra Mapus Other [employer] Other 05-23-2021 10:15-0500 Respiratory rate 20 /min Tondra Mapus Other [employer] Other 05-23-2021 10:15-0500 SaO2% (BldA) [Mass fraction] 96 % Tondra Mapus Other [employer] Other 05-23-2021 10:15-0500 Systolic blood pressure 131 mm[Hg] Tondra Mapus Other [employer] Other Encounters Encounter Date Encounter Type Care Provider Facility Start: 08-04-2024 End: 08-04-2024 [facility] Start: 07-27-2024 End: 07-27-2024 ambulatory [facility] Work Phone: Start: 07-27-2024 End: 07-27-2024 Patient encounter procedure [facility] Work Phone: Start: 07-20-2024 Non-patient / Non-visit [facility] Work Phone: Start: 07-14-2024 End: 07-14-2024 [facility] Medication Management Comment on above: PAF (paroxysmal atri al fibrillation) ([facility]) (Primary Dx) Start: 07-14-2024 End: 07-14-2024 ambulatory [facility]ICATION [facility]NA[facility] Start: 2024 End: 2024 ambulatory [facility] Work Phone: Start: 2024 End: 2024 Patient encounter procedure [facility] Work Phone: Start: 06-30-2024 End: 06-30-2024 Karyn Gant DPM Work Phone: [facility] Start: 06-30-2024 End: 06-30-2024 Bamboo flowsheet Luci Gant DPM Work Phone: [facility] Start: 06-30-2024 End: 06-30-2024 Patient encounter procedure Luci Gant DPM Work Phone: [facility] Comment on above: Dermatophytosis of n ail (Primary Dx); Dystrophic nail; Pain around toenail, right foot; Pain around toenail, left foot Start: 06-30-2024 End: 06-30-2024 ambulatory LUCI GANT Not Available Start: 06-17-2024 End: 06-17-2024 ambulatory [facility] Work Phone: Start: 06-17-2024 End: 06-17-2024 Patient encounter procedure [facility] Work Phone: Start: 06-16-2024 End: 06-16-2024 Follow-up encounter [facility] Medication Therapy Management Comment on above: PAF (paroxysmal atri al fibrillation) ([facility]) (Primary Dx) Start: 06-16-2024 End: 06-16-2024 ambulatory EUSEBIO ÁLVAREZ [facility] Start: 06-14-2024 End: 06-14-2024 ambulatory [facility] Work Phone: Start: 06-14-2024 End: 06-14-2024 Patient encounter procedure [facility] Work Phone: Start: 06-10-2024 Non-patient / Non-visit [facility] Phys[facility] Work Phone: Start: 06-03-2024 End: 06-03-2024 ambulatory [facility] Work Phone: Start: 06-03-2024 End: 06-03-2024 Patient encounter procedure [facility] Work Phone: Start: 05-25-2024 Non-patient / Non-visit [facility] Work Phone: Start: 05-20-2024 End: 05-20-2024 Orders Only Alicia Galvan RN [facility] Pulmonary/Sleep Medicine Comment on above: SOB (shortness of br eath) (Primary Dx); Abnormal CXR Start: 05-17-2024 End: 05-17-2024 Follow-up encounter [facility] Medication Therapy Management Comment on above: PAF (paroxysmal atri al fibrillation) ([facility]) (Primary Dx) Start: 05-17-2024 End: 05-17-2024 ambulatory [facility] MEDICATION MANAGEMENT [facility] Start: 05-14-2024 End: 05-14-[address] [facility] Start: 05-10-2024 End: 05-10-2024 ambulatory [facility] Start: 05-07-2024 End: 05-10-2024 Refill 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 Phone[facility] Comment on above: Med Refill Start: 05-05-2024 End: 05-10-2024 Refill 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 Phone: [facility] Card[facility] Comment on above: Med Refill Start: 05-04-2024 End: 05-04-2024 Patient encounter procedure [facility] Work Phone: Start: 05-03-2024 End: 05-03-2024 ambulatory [facility] Start: 04-28-2024 Non-patient / Non-visit [facility] Work Phone: Start: 04-20-2024 End: 04-20-2024 Patient encounter procedure [facility] Work Phone: Start: 04-14-2024 End: 04-14-2024 ambulatory [facility] Start: 04-13-2024 Non-patient / Non-visit [facility] Work Phone: Start: 04-07-2024 End: 04-07-2024 ambulatory ANITA Aranda NADINE [facility] Start: 03-30-2024 End: 03-30-2024 ambulatory [facility] Work Phone: Start: 03-30-2024 End: 03-30-2024 Patient encounter procedure [facility] Work Phone: Start: 03-23-2024 End: 03-23-2024 ambulatory [facility] Work Phone: Start: 03-23-2024 End: 03-23-2024 Patient encounter procedure [facility] Work Phone: Start: 03-17-2024 Non-patient / Non-visit [facility] Work Phone: Start: 03-16-2024 End: 03-16-2024 Bamboo flowsheet Luci Gant DPM Work Phone: [facility] Start: 03-16-2024 End: 03-16-2024 Bamboo flowsheet Luci Gant DPM Work Phone: [facility] Start: 03-16-2024 End: 03-16-2024 ambulatory LUCI GANT Not Available Start: 03-16-2024 End: 03-16-2024 Patient encounter procedure Luci Gant DPM Work Phone: [facility] Comment on above: Dermatophytosis of n ail (Primary Dx); Dystrophic nail; Pain around toenail, right foot; Pain around toenail, left foot Start: 03-03-2024 End: 03-03-2024 ambulatory [facility] Start: 03-02-2024 End: 03-02-2024 ambulatory [facility] Work Phone: Start: 03-02-2024 End: 03-02-2024 Patient encounter procedure [facility] Work Phone: Start: 02-23-2024 Non-patient / Non-visit [facility] Work Phone: Start: 02-10-2024 End: 02-10-2024 ambulatory [facility] Work Phone: Start: 02-10-2024 End: 02-10-2024 Patient encounter procedure [facility] Work Phone: Start: 02-03-2024 Non-patient / Non-visit [facility] Work Phone: Start: 01-28-2024 End: 01-28-2024 ambulatory [facility] Start: 01-27-2024 End: 01-27-2024 ambulatory [facility] Work Phone: Start: 01-27-2024 End: 01-27-2024 Patient encounter procedure [facility] Work Phone: Start: 01-23-2024 Non-patient / Non-visit [facility] Work Phone: Start: 01-20-2024 Non-patient / Non-visit [facility] Work Phone: Start: 01-13-2024 End: 01-13-2024 ambulatory [facility] Work Phone: Start: 01-13-2024 End: 01-13-2024 Patient encounter procedure [facility] Work Phone: Start: 01-05-2024 Non-patient / Non-visit [facility] Work Phone: Start: 12-31-2023 End: 12-31-2023 ambulatory [facility] Start: 12-30-2023 End: 12-30-2023 ambulatory [facility] Work Phone: Start: 12-30-2023 End: 12-30-2023 Patient encounter procedure [facility] Physician [facility] Work Phone: Start: 12-11-2023 End: 12-11-2023 ambulatory LUCI GANT Not Available Start: 12-11-2023 End: 12-11-2023 ambulatory [facility] Work Phone: Start: 12-11-2023 End: 12-11-2023 Patient encounter procedure [facility] Work Phone: Start: 12-08-2023 End: 12-08-2023 ambulatory [facility] Work Phone: Start: 12-08-2023 End: 12-08-2023 Patient encounter procedure [facility] Work Phone: Start: 12-03-2023 End: 12-03-2023 [facility] Start: 11-27-2023 Non-patient / Non-visit [facility] Work Phone: Start: 11-18-2023 End: 11-18-2023 ambulatory ARC [employer] G[employer] WELDER-C Anika Henry Work Phone: [facility] Work Phone: Start: 11-18-2023 End: 11-18-2023 Patient encounter procedure ARC AND GAS WELDER-C Anika Henry Work Phone: [facility] Ne[facility] Work Phone: Start: 11-13-2023 Non-patient / Non-visit [facility]C [employer] GAS WELDER-C P mellissa Elaine Work Phone: [facility] Work Phone: Start: 11-12-2023 End: 11-12-2023 ambulatory [facility] Start: 11-05-2023 End: 11-05-2023 ambulatory ARC AND GAS WELDER-C Anika Deepa Elaine Work Phone: [facility] Work Phone: Start: 11-05-2023 End: 11-05-2023 Patient encounter procedure ARC AND GAS WELDER-C Anika Elaine Work Phone: [facility] Ne[facility] Work Phone: Start: 10-30-2023 Non-patient / Non-visit [facility]C AND GAS WELDER-C P mellissa Elaine Work Phone: [facility] Work Phone: Start: 10-27-2023 End: 10-27-2023 ambulatory [facility] Start: 10-22-2023 End: 10-22-2023 ambulatory [facility] Start: 10-15-2023 End: 10-15-2023 ambulatory ARC AND GAS WELDER-C Anika Deepa Elaine Work Phone: [facility] Work Phone: Start: 10-15-2023 End: 10-15-2023 Patient encounter procedure ARC AND GAS WELDER-C Anika Elaine Work Phone: [facility] Ne[facility]rology Work Phone: Start: 10-08-2023 End: 10-08-2023 ambulatory [facility] Start: 10-07-2023 Non-patient / Non-visit ARC AND GAS WELDER-C P mellissa Elaine Work Phone: [facility] Work Phone: Start: 09-23-2023 End: 09-23-2023 ambulatory [facility] Start: 09-23-2023 End: 09-23-2023 ambulatory ARC AND GAS WELDER-C Anika Deepa Elaine Work Phone: [facility] Work Phone: Start: 09-23-2023 End: 09-23-2023 Patient encounter procedure ARC AND GAS WELDER-C Anikasophy Henry Work Phone: [facility] Ne[facility] Work Phone: Start: 09-16-2023 End: 09-16-2023 ambulatory [facility] Start: 09-16-2023 Non-patient / Non-visit ARC AND GAS WELDER-C P mellissa Elaine Work Phone: [facility] Work Phone: Start: 09-11-2023 End: 09-11-2023 ambulatory LUCI GANT Not Available Start: 09-09-2023 End: 09-09-2023 ambulatory ARC AND GAS WELDER-C Anika Deepamanoj Henry Work Phone: [facility] Work Phone: Start: 09-09-2023 End: 09-09-2023 Patient encounter procedure ARC AND GAS WELDER-C Anika Henry Work Phone: [facility] Nephrology Work Phone: Start: 09-01-2023 End: 09-01-2023 ambulatory Anika Henry Facility:[facility] Start: 09-01-2023 End: 09-01-2023 Admission to same day surgery center ARC AND GAS WELDER-C Anikasophy Marsmer Work Phone: [facility] [place] Work Phone: Start: 09-01-2023 End: 09-01-2023 ambulatory ARC AND GAS WELDER-C Anikasophy Marsmer Work Phone: [facility] Work Phone: Start: 08-21-2023 End: 08-21-2023 ambulatory [facility] Start: 08-20-2023 End: 08-20-2023 ambulatory [facility] Work Phone: Start: 08-20-2023 End: 08-20-2023 Patient encounter procedure [facility] Work Phone: Start: 08-20-2023 End: 09-17-2023 ambulatory [facility] Start: 08-13-2023 End: 08-13-2023 ambulatory [facility] Work Phone: Start: 08-13-2023 End: 08-13-2023 Patient encounter procedure [facility] Neph[facility] Work Phone: Start: 08-05-2023 Non-patient / Non-visit [facility] Work Phone: Start: 08-01-2023 Non-patient / Non-visit [facility] Work Phone: Start: 07-30-2023 End: 07-30-2023 [facility] Start: 07-18-2023 End: 07-18-2023 ambulatory [facility] Start: 06-09-2023 End: 06-09-2023 ambulatory Tondra Mapus Other [employer] Other Start: 06-09-2023 Telephone encounter Tondra Susannaus [facility] Start: 06-03-2023 End: 06-03-2023 ambulatory Aziz Bakhous Other [employer] Other Start: 06-03-2023 Telephone encounter Aziz Bakhous [facility] Start: 05-27-2023 End: 05-27-2023 ambulatory Tondra Mapus Other [employer] Other Start: 05-27-2023 Telephone encounter Tondra Susannaus [facility] Start: 04-23-2023 End: 04-23-2023 ambulatory Aziz Bakhous Other [employer] Other Start: 04-23-2023 Telephone encounter Aziz Bakhous [facility] Start: 04-22-2023 End: 04-22-2023 ambulatory Aziz Bakhous Other [employer] Other Start: 04-22-2023 Office outpatient vi sit 25 minutes Aziz Bakhous [facility] Start: 04-22-2023 End: 04-22-2023 Patient encounter procedure [facility] Work Phone: Start: 04-21-2023 End: 04-21-2023 ambulatory Aziz Bakhous Other [employer] Other Start: 04-21-2023 Telephone encounter Azwalter Bakhous [facility] Start: 02-19-2023 (DM) Diabetes Tondra Susannaus [facility] Start: 02-19-2023 End: 02-20-2023 ambulatory PHYSICIAN NO FAMILY [employer] Other Start: 02-12-2023 End: 02-12-2023 ambulatory Tondra Mapus Other [employer] Other Start: 02-12-2023 Nursing evaluation o f patient and report Tondra Mapus [facility] Start: 01-24-2023 End: 01-24-2023 ambulatory Tondra Mapus Other [employer] Other Start: 01-24-2023 Telephone encounter Tondra Mapus [facility] Start: 10-30-2022 End: 10-30-2022 ambulatory Tondra Mapus Other [employer] Other Start: 10-30-2022 Telephone encounter Tondra Mapus [facility] Start: 10-22-2022 End: 10-22-2022 ambulatory Aziz Bakhous Other [employer] Other Start: 10-22-2022 Office outpatient vi sit 25 minutes Rin Ramirez [facility] Start: 10-16-2022 ambulatory ANIKA ELAINE Facility: [facility] Start: 08-20-2022 End: 08-20-2022 ambulatory Tondra Mapus Other [employer] Other Start: 08-20-2022 Telephone encounter Tondra Mapus [facility] Start: 08-19-2022 (DM) Diabetes Tondra [facility] Start: 08-19-2022 End: 08-19-2022 ambulatory Tondra Mapus Other [employer] Other Start: 08-02-2022 End: 08-02-2022 ambulatory Tondra Mapus Other [employer] Other Start: 08-02-2022 Telephone encounter Tondra Mapus [facility] Start: 05-30-2022 End: 05-30-2022 ambulatory Tondra Mapus Other [employer] Other Start: 05-30-2022 Telephone encounter Tondra Mapus [facility] Start: 05-01-2022 End: 05-01-2022 ambulatory Tondra Mapus Other [employer] Other Start: 05-01-2022 Telephone encounter Tondra Mapus [facility] Start: 04-01-2022 End: 04-01-2022 ambulatory Tondra Mapus Other [employer] Other Start: 04-01-2022 Telephone encounter Tondra Mapus [facility] Start: 02-27-2022 (DM) Diabetes Tondra Mapus [facility] Start: 02-27-2022 End: 02-27-2022 ambulatory Tondra Mapus Other [employer] Other Start: 01-28-2022 End: 01-28-2022 ambulatory Becca Michael Other [employer] Other Start: 01-28-2022 Telephone encounter Becca Michael [facility] Start: 01-09-2022 End: 01-09-2022 ambulatory Tondra Mapus Other [employer] Other Start: 01-09-2022 Telephone encounter Tondra Mapus [facility] Start: 12-31-2021 End: 12-31-2021 ambulatory Tondra Mapus Other [employer] Other Start: 12-31-2021 Telephone encounter Tondra Mapus [facility] Start: 12-17-2021 End: 12-17-2021 ambulatory Tondra Mapus Other [employer] Other Start: 12-17-2021 Telephone encounter Tondra Mapus [facility] Start: 11-25-2021 End: 11-25-2021 ambulatory Tondra Mapus Other [employer] Other Start: 11-25-2021 Telephone encounter Tondra Mapus [facility] Start: 11-02-2021 (FCCC INJ) [facility] Start: 11-02-2021 End: 11-02-2021 ambulatory Marixa Fitt Other [employer] Other Start: 10-30-2021 End: 10-31-2021 ambulatory ANIKA ELAINE Facility:[facility] Start: 10-26-2021 End: 10-26-2021 ambulatory Tondra Mapus Other [employer] Other Start: 10-26-2021 Telephone encounter Tondra Mapus [facility] Start: 10-23-2021 End: 10-23-2021 ambulatory Aziz Bakhous Other [employer] Other Start: 10-23-2021 Office outpatient vi sit 15 minutes Aziz Bakhous [facility] Start: 10-22-2021 End: 10-22-2021 ambulatory Tondra Mapus Other [employer] Other Start: 10-22-2021 Telephone encounter Tondra Mapus [facility] Start: 09-10-2021 End: 09-10-2021 ambulatory Tondra Mapus Other [employer] Other Start: 09-10-2021 Telephone encounter Tondra Mapus [facility] Start: 05-23-2021 (DM) Diabetes Tondra Mapus [facility] Start: 05-23-2021 End: 05-23-2021 ambulatory Tondra Mapus Other [employer] Other Procedures Date Procedure Procedure Detail Performing Clinician Start: 07-14-2024 Prothrombin time [facility] Work Phone: Start: 06-16-2024 Prothrombin time [employer] Work Phone: Start: 05-17-2024 Prothrombin time [employer] Work Phone: Start: 09-01-2023 Needle biopsy [employer]-C Charity Tapia Work Phone: Start: 07-30-2023 Follow-up visit Follow-up TR JIMENEZ Start: 05-09-2023 Adult depression scr eening assessment 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 Phone: Start: 02-14-2014 Colonoscopy Tr calvo IMPROVEMENT ENGINEER-TRUCK TRAILER MECHANIC Work Phone: Plan of Treatment Date Care Activity Detail Author Start: 05-14-2025 Tobacco Screening Tobacco Screening [facility] Start: 11-15-2024 End: 11-15-2024 Patient encounter procedure 11/15/2024 2:15 PM EDT Office Visit [facility] [address] [facility] [place] [id number] Anita Mccoy MD [address] [place] [address] [facility] Start: 10-26-2024 Tobacco Screening Tobacco Screening [facility] Start: 08-05-2024 End: 08-05-2024 Patient encounter procedure 08/05/2024 1:15 PM EDT Office Visit [facility] [address] [address] Montez Leija MD [facility] [place] [address] [facility] Start: 08-05-2024 End: 08-05-2024 Follow-up encounter 08/05/2024 12:45 PM EDT Follow Up Anticoagulation [facility] [address] [place] [address] [facility] Start: 07-14-2024 End: 07-14-2024 Follow-up encounter 07/14/2024 1:15 PM EST Follow Up Anticoagulation [facility] Medication Therapy Management [address] [place] [address] [facility] Management Start: 06-30-2024 End: 06-30-2024 Patient encounter procedure 06/30/2024 1:30 PM EST Procedure Visit [facility] [address] [place] [address] Luci Gant, ANTONIA [address] [place] [address] Arrived [facility] Comment on above: Arrived Start: 06-16-2024 End: 06-16-2024 Follow-up encounter 06/16/2024 1:00 PM EST Follow Up Anticoagulation [facility] Medication Therapy Management [address] [place] [address] [facility] Start: 05-20-2024 End: 05-20-2025 CT Chest WO contrast CT chest without contrast Imaging Routine SOB (shortness of breath) Abnormal CXR Expected: 05/20/2024, Expires: 05/20/2025 [employer] Work Phone: Comment on above: Expected: 05/20/2024 , Expires: 05/20/2025 Start: 05-17-2024 End: 05-17-2024 Follow-up encounter 05/17/2024 2:15 PM EST Follow Up Anticoagulation [facility] Medication Therapy Management [address] [place] [address] [facility] Management Start: 05-10-2024 End: 05-10-2025 XR Chest PA and Lateral X-ray chest 2 views Imaging Routine PAF (paroxysmal 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) ([facility]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 Expected: 05/10/2024, Expires: 05/10/2025 [employer] Work Phone: Comment on above: Expected: 05/10/2024 , Expires: 05/10/2025 Start: 05-09-2024 Depression Screening Depression [facility] [employer] [facility] Start: 01-18-2024 Influenza vaccination Influenza Vacc ine (#1) [facility] Start: 09-01-2023 [facility] Start: 09-01-2023 CT guided biopsy [facility] Start: 09-01-[address] guided biopsy [facility] Start: 02-14-2017 Screening for malign ant neoplasm of colon Colonoscopy [facility] Start: 2005 Fall Risk Screening Fall Risk Screen ing [facility] Start: 1990 Administration of varicella zoster vaccine Zoster (Shingles) Vaccine (1 of 2) [facility] Start: 1959 DTaP,Tdap and Td Vaccines (1 - Tdap) DTaP,Tdap and Td Vaccines (1 - Tdap) [facility] aPTT in Platelet poo r plasma by Coagulation assay [facility] CT guided biopsy [facility] Patient Education [facility] Work Phone: Renal function 2000 panel - Serum or Plasma [facility] Renal function 2000 panel - Serum or Plasma [facility] Renal function 2000 panel - Serum or Plasma [facility] Renal function 2000 panel - Serum or Plasma [facility] Renal function 2000 panel - Serum or Plasma [facility] Renal function 2000 panel - Serum or Plasma [facility] Renal function 2000 panel - Serum or Plasma [facility] Renal function 2000 panel - Serum or Plasma [facility] Renal function 2000 panel - Serum or Plasma [facility] Renal function 2000 panel - Serum or Plasma [facility] Renal function 2000 panel - Serum or Plasma [facility] Renal function 2000 panel - Serum or Plasma [facility] Renal function 2000 panel - Serum or Plasma [facility] Immunizations Immunization Date Immunization Notes Care Provider Fa cili 04-03-2024 influenza virus vacc ine, unspecified formulation Luci Gant DPM Work Phone: [facility] 02-19-2023 ABRYSVO - Respirator y syncytial virus (RSV), vaccine, bivalent, protein subunit RSV prefusion F, diluent reconstituted, 0.5 mL, PF Luci Gant DPM Work Phone: [facility] 02-19-2023 Influenza, Seasonal, Quadrivalent, Adjuvanted Luci Gant DPM Work Phone: [facility] 02-19-2023 SARS-COV-2 (COVID-19 ) vaccine, mRNA, spike protein, LNP, PF, anthony-sucrose, 30 mcg/0.3 mL Luci Gant DPM Work Phone: [facility] 02-19-2023 influenza virus vacc ine, unspecified formulation Luci Gant DPM Work Phone: [facility] 03-11-2022 influenza virus vacc ine, unspecified formulation Luci Gant DPM Work Phone: [facility] 05-12-2021 influenza virus vacc ine, unspecified formulation Luci Gant DPM Work Phone: [facility] 03-12-2021 Influenza, High-dose Seasonal, Quadrivalent, Preservative Free Luci Gant DPM Work Phone: [facility] 08-04-2020 COVID-19 Vaccine Cricket ssen - Documentation Purposes Only Chester Lin Other [facility] 02-09-2020 Influenza, High-dose Seasonal, Quadrivalent, Preservative Free Luci Gant DPM Work Phone: [facility] 02-01-2020 influenza virus vacc ine, unspecified formulation Luci Gant DPM Work Phone: [facility] 01-21-2018 influenza, high dose seasonal, preservative-free Luci Gant DPM Work Phone: [facility] 06-19-2017 pneumococcal conjuga te vaccine, 13 valent Luci Gant DPM Work Phone: [facility] 03-19-2017 influenza virus vacc ine, unspecified formulation Luci Gant DPM Work Phone: [facility] 03-19-2016 seasonal influenza, intradermal, preservative free Luci Gant DPM Work Phone: [facility] 02-06-2016 influenza, seasonal, injectable, preservative free Luci Gant DPM Work Phone: [facility] 03-31-2015 pneumococcal conjuga te vaccine, 13 valent Luci Rus DPM Work Phone: [facility] 03-28-2015 influenza, seasonal, injectable Tondra Mapus Other [facility] 03-19-2015 pneumococcal polysaccharide vaccine, 23 valent Luci Rusher DPM Work Phone: [facility] 02-14-2015 influenza, seasonal, injectable Lucirobert Gant DPM Work Phone: [facility] 03-31-2014 influenza, seasonal, injectable Lucirobert Gant DPM Work Phone: [facility] 03-04-2012 influenza virus vacc ine, whole virus Luci Gant DPM Work Phone: [facility] 03-04-2011 influenza virus vacc ine, whole virus Luci Rus DPM Work Phone: [facility] Payers Date Payer Category Payer Medicare (Managed Care) [facility] [id number] 2017 Self-pay [id number] 2017 Unknown [id number] 2015 Medicare HMO [facility] MED[facility] [id number] 1959 Medicare [id number] 2.16.840.1.051096.19 1940 Unknown [id number] 2.16.840.1.551850.3.579. 2.593 1940 Unknown [id number] 2.16.840.1.776874.3.579. 2.593 1940 Unknown [id number] 2.16.840.1.470688.3.579. 2.1286 1940 Unknown [id number] 2.16.840.1.124026.3.579. 2.1286 1940 Unknown [id number] 2.16.840.1.561638.3.579. 2.1259 1940 Unknown [id number] 2.16.840.1.092494.3.579. 2.1259 1940 Unknown [id number] 2.16.840.1.789051.3.579. 2.1259 1940 Unknown [id number] 2.16.840.1.566319.3.579. 2.1259 1940 Unknown [id number] 2.16.840.1.853613.3.579. 2.1286 1940 Unknown [id number] 2.16840.1.425568.3.579. 2.1285 1940 Unknown [id number] 2.840.1.931466.3.579. 2.1285 1940 Unknown [id number] 2.840.1.299068.3.579. 2.1285 1940 Unknown [id number] 2.840.1.995666.3.579. 2.1285 1940 Unknown [id number] 2.840.1.926323.3.579. 2.1285 1940 Unknown [id number] 2.840.1.619223.3.579. 2.1285 1940 Unknown [id number] 2.0.1.568039.3.579. 2.1285 1940 Unknown [id number] 2.840.1.310706.3.579. 2.1285 1940 Unknown [id number] 2.840.1.839901.3.579. 2.1285 1940 Unknown [id number] 2.840.1.262149.3.579. 2.1285 1940 Unknown [id number] 2.0.1.623485.3.579. 2.1285 1940 Unknown [id number] 2.840.1.536105.3.579. 2.1285 1940 Unknown [id number] 2.840.1.501188.3.579. 2.1285 1940 Unknown [id number] 2.16840.1.774814.3.579. 2.1285 1940 Unknown [id number] 2.840.1.022922.3.579. 2.1285 1940 Unknown [id number] 2.16.840.1.483046.3.579. 2.1286 1940 Unknown [id number] 2.16.840.1.360859.3.579. 2.1286 1940 Unknown [id number] 2.16.840.1.117408.3.579. 2.1286 1940 Unknown [id number] 2.16.840.1.358248.3.579. 2.1286 1940 Unknown [id number] 2.16.840.1.894765.3.579. 2.1286 1940 Unknown [id number] 2.16.840.1.751871.3.579. 2.1286 1940 Unknown [id number] 2.16.840.1.635556.3.579. 2.1286 Unknown Regular Auto/Liability [id number] Unknown [id number] 2.16.840.1.948946.3.579. 2.531 Unknown [id number] 2.16.840.1.673863.3.579. 2.531 Social History Date Type Detail Facility Unknown if ever smoked [employer] Other Start: 06-29-2020 End: 12-11-2023 Sex Assigned At [facility] [employer] Other Start: 12-10-2020 End: 03-11-2022 Tobacco smoking status IDIS Never smoked tobacco (finding) [facility] Start: 1940 Sex Assigned At Female F [facility] Start: 03-11-2022 End: 11-20-2022 Tobacco use and exposure Smokeless tobacco non-user [facility] Start: 12-11-2023 End: 03-16-2024 Alcoholic beverage intake Ex-drinker (finding) [facility] Start: 06-29-2020 End: 12-11-2023 History of Social function [facility] Start: 1940 Sex assigned at Not on file [facility] Start: 12-22-2014 End: 03-30-2024 Sex Female (finding) [facility] Start: 10-27-2023 End: 05-14-2024 Alcoholic beverage intake Current non-drinker of alcohol (finding) [facility] How often to you hav e a drink containing alcohol? Never [facility] How many standard drinks containing alcohol do you have on a typical day? Patient does not drink [facility] Medical Equipment Procedure Code Equipment Code Equipment Origin al Text Equipment Identifier Dates Start: 03-12-2017 Goals Date Patient Goal Desired Activity /State Personal health goal Comment on above: Formatting of this n ote might be different from the original. Evaluation of progress towards goal: return home self care with hsb support Clinical Notes 06-04-2020 to 08-04-2024 Telephone Encounter - Enedelia Livingston CMA - 08/04/2024 8:53 AM EDTTelephone Encounter - Enedelia Livingston CMA - 08/04/2024 8:53 AM Jaime Schumacher [facility] - 07/14/2024 1:15 PM ESTPatient Instructions Note Date & Type Note Facility 08-04-2024 Miscellaneous Notes Left message for patient to remind them to bring their most current medication list with them to their appointment. documented in this encounter [facility] 08-04-2024 Telephone encounter Note Left message for patient to remind them to bring their most current medication list with them to their appointment. [facility] 07-14-2024 History of Present illness Narrative 15 minute okrm-kb-akpo follow-up anticoagulation appointment. INR performed in office per protocol. INR 3.1 (goal range: 2.0-3.0). Patient reports: Taking warfarin dosing as documented. Missed or extra doses of warfarin: No Changes to medications: YES Lokelma 10 mg daily started Changes to lifestyle (diet / alcohol / smoking / activity): No Recent emergency department visit / hospitalization / health changes / new contraindication to current anticoagulant: No Signs/symptoms of bruising/bleeding or clotting or any intolerable adverse events: No Upcoming procedures: No Anticoagulant prescription needed: No Seen referring provider in the last year Duration of therapy reviewed Assessment: INR is slightly elevated, but stable overall. We will reduce x1, then resume home dose. Plan: Patient instructed to decrease to warfarin 1.25 mg 07/14, then resume 2/5 mg Sun/Tue/Thurs and 1.25 mg AOD Check INR in 3 week(s). Patient verbalizes understanding of anticoagulant dosing instructions and information discussed. Dosing regimen, counseling, and follow-up appointment were provided to the patient. Patient reminded to call with questions or any medication changes. Patient instructed to seek medical attention if any major bleeding/bleeding that persists or worsens. Alie Schumacher RPH 07/14/24 1320 documented in this encounter [facility] 06-30-2024 History of Present illness Narrative Images from the original note were not included. Subjective Patient ID: Margie Martínez is a 83 y.o. female who presents for DM Foot Care (PCP: Chester SALAS 06/16/24, A1C: 5.4, BS: 100, SS: 7.5-8). HPI Chief complaint: Thickened, discolored and deformed [...] family members unable to provide effective care. Palliative care measures provide favorable transient symptom relief. Risk factors: Type II diabetes. Medical comorbidities. 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 Relative sparing 4th digits bilateral. Web space areas [...] Luci Gant DPM documented in this encounter [facility] 06-30-2024 Instructions Luci Gant DPM - 06/30/2024 1:30 PM EST As noted documented in this encounter [facility] 06-16-2024 Note XR CHEST 2 VWS Procedure: Chest x-ray performed Number of views:2 History:Atrial fibrillation Comparison:05/14/2024 Findings: The heart and lungs show no acute findings, and the mediastinum and yusef are grossly negative . The pulmonary arteries remain prominent. The cardiac silhouette remains enlarged. Impression: 1. No acute change. Finalized by Jacek Gordillo MD on 06/16/2024 3:22 PM [facility] 06-16-2024 History of Present illness Narrative 15 minute vlqh-tt-xnib follow-up anticoagulation appointment. INR performed in office per protocol. INR 2.6 (goal range: 2.0-3.0). Patient reports: Taking warfarin [...] No Upcoming procedures: No Anticoagulant prescription needed: YES- Norah Andujar Seen referring provider in the last year- yes Duration of therapy reviewed-yes Assessment: INR is remaining stable in therapeutic range on current warfarin regimen. Plan: Patient instructed to continue warfarin 2.5 mg Sun/Tue/Thurs and 1.25 mg AOD. Check INR in 4 week(s). Patient verbalizes understanding of anticoagulant dosing instructions and information discussed. Dosing regimen, counseling, and follow-up appointment were provided to the patient. Patient reminded to call with questions or any medication changes. Patient instructed to seek medical attention if any major bleeding/bleeding that persists or worsens. Alie Schumacher RPH 06/16/24 1310 documented in this encounter [facility] 05-20-2024 History of Present illness Narrative CXR discussed with patient, per KW pt to have CT chest. Pt agreeable, all questions answered [facility] History of Present illness Narrative 15 minute fnfu-li-fiwd follow-up anticoagulation appointment. INR performed in office [...] 1.25 mg AOD. Check INR in 4 week(s). Patient verbalizes understanding of anticoagulant dosing instructions and information discussed. Dosing regimen, counseling, and follow-up appointment were provided to the patient. Patient reminded to call with questions or any medication changes. Patient instructed to seek medical attention if any major bleeding/bleeding that persists or worsens. Alie Schumacher RPH 05/17/24 1412 documented in this encounter [facility] 05-14-2024 Note XR CHEST 2 VWS History: Shortness of breath Procedure: 2 view PA and Lateral chest radiograph. Comparison: 05/09/2023 Findings: Prominent central pulmonary arteries. Mild interstitial edema. Stable cardiac silhouette. No no pneumothorax. No focal consolidation or pleural effusions. IMPRESSION: Mild interstitial edema. Finalized by Luci Power MD on 05/14/2024 12:18 PM [facility] 05-07-2024 Miscellaneous Notes OV 07/30/23 Updated labs needed, letter was already mailed 04/20/24. 07/30/23 EKG 05/09/23 CXR 04/07/24 PFT EYE exam ? documented in this encounter [facility] 05-07-2024 Telephone encounter Note OV 07/30/23 Updated labs needed, letter was already mailed 04/20/24. 07/30/23 EKG 05/09/23 CXR 04/07/24 PFT EYE exam ? [facility] 05-05-2024 Miscellaneous Notes OV 07/30/23 Updated labs needed, letter was already mailed 04/20/24. 07/30/23 EKG 05/09/23 CXR 04/07/24 PFT EYE exam ? documented in this encounter [facility] 05-05-2024 Telephone encounter Note OV 07/30/23 Updated labs needed, letter was already mailed 04/20/24. 07/30/23 EKG 05/09/23 CXR 04/07/24 PFT EYE exam ? [facility] 05-04-2024 Evaluation note Diagnosis Onset Date Resolution Chronic kidney disease, stage IV (severe) acute May 04, 2024 11:08am 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 mellitus acute May 04, 2024 11:08am Anemia of renal disease acute J anuary 2024 11:32am 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 mellitus acute June 03, 2024 11:32am BMI 40.0-44.9, adult acute 2024 1:49pm Diabetes acute June 14, 2024 1:49pm Dietary counseling and surveillance acute June 14, 2024 1:49pm HTN (hypertension) acute 2024 1:49pm Hyperlipidemia acute June 142024 1:49pm Anemia acute June 17, 2024 1:50pm Chronic kidney disease, stage IV (severe) acute June 17, 2024 1:50pm Edema acute June 17, 2024 1:50pm 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, 2024 1:50pm Hyperkalemia acute May 1:50pm Hyperparathyroidism acute 2024 1:50pm Hypertensive chronic kidney disease with stage 1 through stage 4 chronic ki acute 2024 1:50pm Type 2 diabetes mellitus with diabetic chronic kidney disease acute June 17, 2024 1:50pm Anemia acute 2024 9:50am Chronic kidney disease, stage IV (severe) acute 2024 9:50am Edema acute 2024 9:50am Fibrillary glomerulonephritis acute June 9:50am Hyperkalemia acute June 9:50am Hyperparathyroidism acute 2024 9:50am Hypertensive chronic kidney disease with stage 1 through stage 4 chronic ki acute 2024 9:50am Type 2 diabetes mellitus with diabetic chronic kidney disease acute 2024 9:50am Anemia acute July 27 1:45pm Chronic kidney disease, stage IV (severe) acute July 27 1:45pm Edema acute July 27 1:45pm 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 27, 025 1:45pm Hyperkalemia acute July 27, 2024 1:45pm Hyperparathyroidism acute July 27, 2024 1:45pm Hypertensive chronic kidney disease with stage 1 through stage 4 chronic ki acute July 27, 2024 1:45pm Type 2 diabetes mellitus with diabetic chronic kidney disease acute July 27, 2024 1:45pm [facility] Work Phone: 1(299) 274-414412-03-2024 Evaluation note* Diagnosis Onset Date Resolution Status Admit Date Anemia acute April 20, 2024 1:01pm Chronic kidney disease, stag e IV (severe) acute April 20 1:01pm Edema acute April 20, 2024 1:01pm 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, 2024 1:01pm Hyperkalemia acute April 1:01pm Hyperparathyroidism acute Dece2023 1:01pm Hypertensive chronic kidney disease with stage 1 through stage 4 chronic ki acute April 20 1:01pm Type 2 diabetes mellitus wit h diabetic chronic kidney disease acute April 20, 2024 1:01pm Chronic kidney disease, stag e IV (severe) acute May 04, 024 11:08am 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 acute May 04, 2 024 11:08am Anemia of renal disease acute J anuary 2024 11:32am 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 acute June 03 11:32am [facility] Work Phone: 1(417) 507-217712-03-2024 Evaluation note* Diagnosis Onset Date Resolution Status Admit Date Anemia acute April 20, 2024 1:01pm Chronic kidney disease, stag e IV (severe) acute April 20 1:01pm Edema acute April 20, 2024 1:01pm 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, 2024 1:01pm Hyperkalemia acute April 1:01pm Hyperparathyroidism acute Dece2023 1:01pm Hypertensive chronic kidney disease with stage 1 through stage 4 chronic ki acute April 20 1:01pm Type 2 diabetes mellitus wit h diabetic chronic kidney disease acute April 20, 2024 1:01pm Chronic kidney disease, stag e IV (severe) acute May 04 024 11:08am 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 acute May 04, 024 11:08am Anemia of renal disease acute J anuary 2024 11:32am 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 acute June 03 11:32am BMI 40.0-44.9, adult acute 2024 1:49pm Diabetes acute June 14, 2024 1:49pm Dietary counseling and surveillance acute June 14 1:49pm HTN (hypertension) acute 2024 1:49pm Hyperlipidemia acute June 142024 1:49pm [facility] Work Phone: 1([phone]) 680-809212-03-2024 Evaluation note* Diagnosis Onset Date Resolution Status Admit Date Anemia acute April 20, 2024 1:01pm Chronic kidney disease, stag e IV (severe) acute April 20 1:01pm Edema acute April 20, 2024 1:01pm 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, 2024 1:01pm Hyperkalemia acute April 1:01pm Hyperparathyroidism acute Dece2023 1:01pm Hypertensive chronic kidney disease with stage 1 through stage 4 chronic ki acute April 20 1:01pm Type 2 diabetes mellitus wit h diabetic chronic kidney disease acute April 20, 2024 1:01pm Chronic kidney disease, stag e IV (severe) acute May 04, 024 11:08am 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 acute May 04, 024 11:08am Anemia of renal disease acute J anuary 2024 11:32am 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 acute June 03 11:32am BMI 40.0-44.9, adult acute 2024 1:49pm Diabetes acute June 14, 2024 1:49pm Dietary counseling and surveillance acute June 14 1:49pm HTN (hypertension) acute 2024 1:49pm Hyperlipidemia acute June 142024 1:49pm Anemia acute June 17, 2024 1:50pm 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 acute June 17 1:50pm [facility] Work Phone: 1(736) 272-569512-03-2024 Evaluation note* Diagnosis Onset Date Resolution Status Admit Date Anemia acute April 20, 2024 1:01pm Chronic kidney disease, stag e IV (severe) acute April 20 1:01pm Edema acute April 20, 2024 1:01pm 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, 2024 1:01pm Hyperkalemia acute April 1:01pm Hyperparathyroidism acute Dece2023 1:01pm Hypertensive chronic kidney disease with stage 1 through stage 4 chronic ki acute April 20 1:01pm Type 2 diabetes mellitus wit h diabetic chronic kidney disease acute April 20, 2024 1:01pm Chronic kidney disease, stag e IV (severe) acute May 04, 024 11:08am 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 acute May 04, 024 11:08am Anemia of renal disease acute J anuary 2024 11:32am 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 acute June 03 11:32am BMI 40.0-44.9, adult acute 2024 1:49pm Diabetes acute June 14, 2024 1:49pm Dietary counseling and surveillance acute June 14 1:49pm HTN (hypertension) acute 2024 1:49pm Hyperlipidemia acute June 142024 1:49pm Anemia acute June 17, 2024 1:50pm Chronic kidney disease, stag e IV (severe) acute June 17 1:50pm Edema acute June 17, 2024 1:50pm 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, 2024 1:50pm Hyperkalemia acute May 1:50pm Hyperparathyroidism acute 2024 1:50pm Hypertensive chronic kidney disease with stage 1 through stage 4 chronic ki acute June 17 1:50pm Type 2 diabetes mellitus wit h diabetic chronic kidney disease acute June 17, 2024 1:50pm Anemia acute 2024 9:50am Chronic kidney disease, stag e IV (severe) acute July 13, 025 9:50am Edema acute 2024 9:50am Fibrillary glomerulonephritis acute 2024 9:50am Hyperkalemia acute June, 2024 9:50am Hyperparathyroidism acute 2024 9:50am Hypertensive chronic kidney disease with stage 1 through stage 4 chronic ki acute July 13 025 9:50am Type 2 diabetes mellitus wit h diabetic chronic kidney disease acute 2024 9:50am [facility] Work Phone: 1(602) 535-308710-29-2024 History of Present illness Narrative* Luci Gant, ANTONIA - 03/16/2024 1:30 PM EDT Images from the original note were not included. Subjective Patient ID: Margie Martínez is a 83 y.o. female who presents for Nail care (Margie Martínez is a 83 y.o. female who presents for DM Foot Care PCP: Anika SALAS 10/31/23, A1C: 5.4, BS:, 93 SS: 7.5-8).). HPI Chief complaint: Thickened, discolored and deformed toenails involving multiple digits. Chronic toenail deformity multiple years duration. The condition is problematic/symptomatic, particularly over the past several weeks or so, impactingADLs and her ability to wear shoes comfortably. [...] 2 puffs in the morning and 2 puffsbefore bedtime. Rinse mouth with water after use to reduce aftertaste and incidence of candidiasis.Do not swallow.., Disp: , Rfl: bumetanide (Bumex) [...] discoloration, crumbly texture, the distal margins are incurvated/cryptotic,keratotic, tender, non-inflamed, without drainage. Digits 2, 3, [...] of any cryptotic margins, all periungual debris; providingeffective symptom and pressure relief; reducing shoe and [...] understanding. Luci Gant DPM documented in this [facility]10-29-2024 Instructions* Patient Instructions* Luci Gant DPM - 03/16/2024 1:30 PM EDT As noted documented in this [facility]08-27-2024 Evaluation note* Diagnosis Onset Date Resolution Status Admit Date Anemia of renal disease acute A ugust 2023 10:53am Stage 3b chronic kidney dise ase (CKD) acute January 12 10:53am Anemia acute January 1:47pm Edema acute January 1:47pm Fibrillary glomerulonephritis acute January 27, 2024 1:47pm Hyperkalemia acute January 262023 1:47pm Hyperparathyroidism acute 2023 1:47pm Hypertensive chronic kidney disease with stage 1 through stage 4 chronic ki acute January 1:47pm Stage 3b chronic kidney dise ase (CKD) acute January 27, 2024 1:47pm Type 2 diabetes mellitus wit h diabetic chronic kidney disease acute January 27, 2024 1:47pm Anemia acute January 2:10pm Anemia of renal disease acute S eptemb2023 2:10pm Stage 3b chronic kidney dise ase (CKD) acute February 10, 2024 2:10pm Anemia acute March 02, 2024 9:43am Chronic kidney disease, stag e IV (severe) acute March 02 9:43am Edema acute March 02, 2024 9:43am Fibrillary glomerulonephritis acute March 02, 2024 9:43am Hyperkalemia acute February 9:43am Hyperparathyroidism acute Octob er 2023 9:43am Hypertensive chronic kidney disease with stage 1 through stage 4 chronic ki acute March 02, 2024 9:43am Type 2 diabetes mellitus wit h diabetic chronic kidney disease acute March 02, 2024 9:43am Anemia acute March 23, 2024 1:58pm Chronic kidney disease, stag e IV (severe) acute March 23 1:58pm [facility] Work Phone: 1(461) 232-764101-16-2024 Evaluation note* Encounter Date Diagnosis Assessment Notes Treatment Notes Treatment Clinical Notes May, Edema (ICD-10 - R60.9) [employer] Other 12-06-2023 Evaluation note* Encounter Date Diagnosis Assessment Notes Treatment Notes Treatment Clinical Notes Apr, Nephritis (ICD-10 - N05.9) [facility] Other 12-05-2023 Evaluation note* Encounter Date Diagnosis [...] check iron, folate and VB12 storage studies [employer] Other 12-04-2023 Evaluation note* Encounter Date Diagnosis Assessment Notes Treatment Notes Treatment Clinical Notes Apr, Edema (ICD-10 - R60.9) [facility] Other 10-04-2023 Evaluation note* Encounter Date Diagnosis [...] diabetes medication issues. 6. Prescriptions: RUSSELL PAP: [employer]; 2023 RUSSELL PAP Application provided to patient [...] hypertension material was printed on arb Feb, prison current use of insulin (ICD-10 - Z79.4) Feb, Vitamin B 12 deficiency (ICD-10 - E53.8) 09/08 b12 345 at target Feb, Albuminuria (ICD-10 - R80.9) Protein, urine material was printed Reviewed importance of glucose/bp control to prevent further nephropathy. Keep f/u with nephrology Feb, BMI 40.0-44.9, adult (ICD-10 - Z68.41) [facility] Other 09-27-2023 Evaluation note* Encounter Date Diagnosis Assessment Notes Treatment Notes Treatment Clinical Notes Jan, Type 2 diabetes mellitus with diabetic chronic kidney disease (ICD-10 - E11.22) Pt here for appointment today with spouse, for [facility] training. [facility] training discussed, instructed on use and application. Patient brought in her own [facility] I[facility] 2 reader which displays connected to a computer on the screen. Pt contacted [employer] for reader replacement. Pt also brought in new reader. New reader set up with pt. Instructed pt to send old reader back to [employer]. Pt states she will send old reader back. Informed pt the old reader USB port may be damaged. Pt has 12 days left of current sensor she is wearing. Instructed pt when she applies new sensor to scan with new reader. Pt states understanding. Reviewed with patient testing glucose with [employer] ac, hs explained how to enter insulin dosing/notes into [facility] reader. Reviewed with patient no more than [...] spent on education by Rangel CANTU, RN [employer] Other 06-06-2023 Evaluation note* Encounter Date Diagnosis Assessment Notes Treatment Notes Treatment Clinical Notes Oct, Hypertensive chronic kidney disease w stg 1-4/unsp chr fox (ICD-10 - I12.9) Will add aldactone since [...] On Bumex for volume management Avoid NSAIDs [facility] Other 04-03-2023 Evaluation note* Encounter Date Diagnosis Assessment Notes Treatment Notes Treatment Clinical Notes Aug, Dietary counseling and surveillance (ICD-10 - Z71.3) Maintaining a healthful weight material was printed see above Aug, Type 2 diabetes mellitus (ICD-10 - E11.9) Type 2 diabetes material was printed 1. Controlled, Type 2 diabetes with A1c 6.5%. 2. Blood glucose levels stable. According to [employer] cgm download 08/06/2022-08/19/2022 Avg glucose 129. 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 Keep f/u with nephrology Aug, BMI 39.0-39.9,adult (ICD-10 - Z68.39) 11 pound weight loss from last visit, continue with weight loss efforts [employer] Other 10-12-2022 Evaluation note* Encounter Date Diagnosis Assessment Notes Treatment Notes Treatment Clinical Notes Feb, Dietary counseling and surveillance (ICD-10 - Z71.3) Maintaining a healthful weight material was printed see above Feb, Type 2 diabetes mellitus (ICD-10 - E11.9) Type 2 diabetes material was printed 1. Controlled, Type 2 diabetes with A1c of 6.1% 2. Blood glucose levels stable. 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 (ICD-10 - Z79.4) [...] E11.649) Hypoglycemia material was printed see above [employer] Other 09-12-2022 Evaluation note* Encounter Date Diagnosis Assessment Notes Treatment Notes Treatment Clinical Notes Jan, Edema (ICD-10 - R60.9) [facility] Other 08-24-2022 Evaluation note* Encounter Date Diagnosis Assessment Notes Treatment Notes Treatment Clinical Notes Dec, Type 2 diabetes mellitus with diabetic chronic kidney disease (ICD-10 - E11.22) Dec, Type 2 diabetes mellitus (ICD-10 - E11.9) [employer] Other 06-17-2022 Evaluation note* Encounter Date Diagnosis Assessment Notes Treatment Notes Treatment Clinical Notes Oct, Vitamin B 12 deficiency (ICD-10 - E53.8) [employer] Other 06-07-2022 Evaluation note* Encounter Date Diagnosis [...] arthritis and sleep apnea has been addressed. [employer] Other 06-06-2022 Evaluation note* Encounter Date Diagnosis Assessment Notes Treatment Notes Treatment Clinical Notes Oct, Type 2 diabetes mellitus with diabetic chronic kidney disease (ICD-10 - E11.22) [employer] Other 04-25-2022 Evaluation note* Encounter Date Diagnosis Assessment Notes Treatment Notes Treatment Clinical Notes Aug, Type 2 diabetes mellitus with diabetic chronic kidney disease (ICD-10 - E11.22) [employer] Other 01-05-2022 Evaluation note* Encounter Date Diagnosis Assessment Notes Treatment Notes Treatment Clinical Notes May, Dietary counseling and surveillance (ICD-10 - Z71.3) Maintaining a healthful weight material was printed see above May, Type 2 diabetes mellitus (ICD-10 - E11.9) Type 2 diabetes material was printed 1. Controlled, Type 2 diabetes with A1c of 5.7% 2. Blood glucose levels stable. According to [employer] cgm download 05/10/2021-05/23/2021 Avg glucose 128. [...] I10) About hypertension material was printed May, prison current use of insulin (ICD-10 - Z79.4) [...] E11.649) Hypoglycemia material was printed see above [employer] Other 01-17-2021 History general Narrative - Reported* Type Description Date Medical History DM II Medical History HYPERTENSION Medical History HYPERLIPIDEMIA Medical History Hypothyroidism Medical History Covid 19 positive 06/04/2020 Surgical History HYSTERECTOMY 1966 Surgical History HERNIA REPAIR 1984 Surgical History BILATERAL KNEE REPLACEMENT 2003 Surgical History GALLBLADDER 2013 Surgical History tonsillectomy Surgical History cyst removal Surgical History appendectomy Surgical History bladder suspension, unspecified Surgical History Foot Surgery Hospitalization History SEE ABOVE Hospitalization History COPD 07/08 [employer] Other Evaluation noteNo [place] Other Evaluation noteNo assessment information available [facility] Work Phone: evaluation note* Diagnosis Onset Date Resolution Status Anemia acute BMI 50.0-59.9, adult acute Edema acute Hyperlipidemia acute [id number] acute Stage 3b chronic kidney disease (CKD) acute Type 2 diabetes mellitus wit h diabetic chronic kidney disease acute [facility] Work Phone: evaluation note* Diagnosis Onset Date Resolution Status Anemia acute BMI 50.0-59.9, adult acute Edema acute Hyperlipidemia acute [id number] acute Stage 3b chronic kidney disease (CKD) acute Type 2 diabetes mellitus wit h diabetic chronic kidney disease acute Diabetes acute Dietary counseling and surveillance acute HTN (hypertension) acute Hyperlipidemia acute Vitamin B 12 deficiency acut e [facility] Work Phone: evaluation note* Diagnosis Onset Date Resolution Status Anemia acute BMI 50.0-59.9, adult acute Edema acute Hyperlipidemia acute [id number] acute Stage 3b chronic kidney disease (CKD) acute Type 2 diabetes mellitus wit h diabetic chronic kidney disease acute BMI 40.0-44.9, adult acute Diabetes acute Dietary counseling and surveillance acute HTN (hypertension) acute Hyperlipidemia acute Vitamin B 12 deficiency acut e [facility] Work Phone: evaluation note* Diagnosis Onset Date Resolution Status Anemia acute BMI 50.0-59.9, adult acute Edema acute Hyperlipidemia acute [id number] acute Stage 3b chronic kidney disease (CKD) acute Type 2 diabetes mellitus wit h diabetic chronic kidney disease acute BMI 40.0-44.9, adult acute Diabetes acute Dietary counseling and surveillance acute HTN (hypertension) acute Hyperlipidemia acute Vitamin B 12 deficiency acut e Anemia acute Edema acute Fibrillary glomerulonephritis acute Hyperparathyroidism acute [id number] acute Stage 3b chronic kidney disease (CKD) acute Type 2 diabetes mellitus wit h diabetic chronic kidney disease acute [facility] Work Phone: evaluation note* Diagnosis Onset Date Resolution Status Anemia acute BMI 50.0-59.9, adult acute Edema acute Hyperlipidemia acute [id number] acute Stage 3b chronic kidney disease (CKD) acute Type 2 diabetes mellitus wit h diabetic chronic kidney disease acute BMI 40.0-44.9, adult acute Diabetes acute Dietary counseling and surveillance acute HTN (hypertension) acute Hyperlipidemia acute Vitamin B 12 deficiency acut e Anemia acute Edema acute Fibrillary glomerulonephritis acute Hyperparathyroidism acute [id number] acute Stage 3b chronic kidney disease (CKD) acute Type 2 diabetes mellitus wit h diabetic chronic kidney disease acute Anemia acute Edema acute Fibrillary glomerulonephritis acute Hyperparathyroidism acute [id number] acute Stage 3b chronic kidney disease (CKD) acute Type 2 diabetes mellitus wit h diabetic chronic kidney disease acute [facility] Work Phone: Evaluation note* Diagnosis Onset Date Resolution Status Anemia acute BMI 50.0-59.9, adult acute Edema acute Hyperlipidemia acute [id number] acute Stage 3b chronic kidney disease (CKD) acute Type 2 diabetes mellitus wit h diabetic chronic kidney disease acute BMI 40.0-44.9, adult acute Diabetes acute Dietary counseling and surveillance acute HTN (hypertension) acute Hyperlipidemia acute Vitamin B 12 deficiency acut e Anemia acute Edema acute Fibrillary glomerulonephritis acute Hyperparathyroidism acute [id number] acute Stage 3b chronic kidney disease (CKD) acute Type 2 diabetes mellitus wit h diabetic chronic kidney disease acute Anemia acute Edema acute Fibrillary glomerulonephritis acute Hyperparathyroidism acute [id number] acute Stage 3b chronic kidney disease (CKD) acute Type 2 diabetes mellitus wit h diabetic chronic kidney disease acute Anemia acute Edema acute Fibrillary glomerulonephritis acute Hyperparathyroidism acute [id number] acute Stage 3b chronic kidney disease (CKD) acute Type 2 diabetes mellitus wit h diabetic chronic kidney disease acute [facility] Work Phone: Evaluation note* Diagnosis Onset Date Resolution Status Anemia acute BMI 50.0-59.9, adult acute Edema acute Hyperlipidemia acute [id number] acute Stage 3b chronic kidney disease (CKD) acute Type 2 diabetes mellitus wit h diabetic chronic kidney disease acute BMI 40.0-44.9, adult acute Diabetes acute Dietary counseling and surveillance acute HTN (hypertension) acute Hyperlipidemia acute Vitamin B 12 deficiency acut e Anemia acute Edema acute Fibrillary glomerulonephritis acute Hyperparathyroidism acute [id number] acute Stage 3b chronic kidney disease (CKD) acute Type 2 diabetes mellitus wit h diabetic chronic kidney disease acute Anemia acute Edema acute Fibrillary glomerulonephritis acute Hyperparathyroidism acute [id number] acute Stage 3b chronic kidney disease (CKD) acute Type 2 diabetes mellitus wit h diabetic chronic kidney disease acute Anemia acute Edema acute Fibrillary glomerulonephritis acute Hyperparathyroidism acute [id number] acute Stage 3b chronic kidney disease (CKD) acute Type 2 diabetes mellitus wit h diabetic chronic kidney disease acute Anemia acute Edema acute Fibrillary glomerulonephritis acute Hyperkalemia acute Hyperparathyroidism acute [id number] acute Stage 3b chronic kidney disease (CKD) acute Type 2 diabetes mellitus wit h diabetic chronic kidney disease acute [facility] Work Phone: Evaluation note* Diagnosis Onset Date Resolution Status BMI 40.0-44.9, adult acute Diabetes acute Dietary counseling and surveillance acute HTN (hypertension) acute Hyperlipidemia acute Vitamin B 12 deficiency acut e Anemia acute Edema acute Fibrillary glomerulonephritis acute Hyperparathyroidism acute [id number] acute Stage 3b chronic kidney disease (CKD) acute Type 2 diabetes mellitus wit h diabetic chronic kidney disease acute Anemia acute Edema acute Fibrillary glomerulonephritis acute Hyperparathyroidism acute [id number] acute Stage 3b chronic kidney disease (CKD) acute Type 2 diabetes mellitus wit h diabetic chronic kidney disease acute Anemia acute Edema acute Fibrillary glomerulonephritis acute Hyperparathyroidism acute [id number] acute Stage 3b chronic kidney disease (CKD) acute Type 2 diabetes mellitus wit h diabetic chronic kidney disease acute Anemia acute Edema acute Fibrillary glomerulonephritis acute Hyperkalemia acute Hyperparathyroidism acute [id number] acute Stage 3b chronic kidney disease (CKD) acute Type 2 diabetes mellitus wit h diabetic chronic kidney disease acute Anemia acute Edema acute Fibrillary glomerulonephritis acute Hyperkalemia acute Hyperparathyroidism acute [id number] acute Stage 3b chronic kidney disease (CKD) acute Type 2 diabetes mellitus wit h diabetic chronic kidney disease acute [facility] Work Phone: Evaluation note* Diagnosis Onset Date Resolution Status Anemia acute Edema acute Fibrillary glomerulonephritis acute Hyperparathyroidism acute [id number] acute Stage 3b chronic kidney disease (CKD) acute Type 2 diabetes mellitus wit h diabetic chronic kidney disease acute Anemia acute Edema acute Fibrillary glomerulonephritis acute Hyperparathyroidism acute [id number] acute Stage 3b chronic kidney disease (CKD) acute Type 2 diabetes mellitus wit h diabetic chronic kidney disease acute Anemia acute Edema acute Fibrillary glomerulonephritis acute Hyperparathyroidism acute [id number] acute Stage 3b chronic kidney disease (CKD) acute Type 2 diabetes mellitus wit h diabetic chronic kidney disease acute Anemia acute Edema acute Fibrillary glomerulonephritis acute Hyperkalemia acute Hyperparathyroidism acute [id number] acute Stage 3b chronic kidney disease (CKD) acute Type 2 diabetes mellitus wit h diabetic chronic kidney disease acute Anemia acute Edema acute Fibrillary glomerulonephritis acute Hyperkalemia acute Hyperparathyroidism acute [id number] acute Stage 3b chronic kidney disease (CKD) acute Type 2 diabetes mellitus wit h diabetic chronic kidney disease acute BMI 40.0-44.9, adult acute Diabetes acute Dietary counseling and surveillance acute HTN (hypertension) acute Hyperlipidemia acute Vitamin B 12 deficiency acut e [facility] Work Phone: Evaluation note* Diagnosis Onset Date Resolution Status Anemia acute Edema acute Fibrillary glomerulonephritis acute Hyperparathyroidism acute [id number] acute Stage 3b chronic kidney disease (CKD) acute Type 2 diabetes mellitus wit h diabetic chronic kidney disease acute Anemia acute Edema acute Fibrillary glomerulonephritis acute Hyperparathyroidism acute [id number] acute Stage 3b chronic kidney disease (CKD) acute Type 2 diabetes mellitus wit h diabetic chronic kidney disease acute Anemia acute Edema acute Fibrillary glomerulonephritis acute Hyperkalemia acute Hyperparathyroidism acute [id number] acute Stage 3b chronic kidney disease (CKD) acute Type 2 diabetes mellitus wit h diabetic chronic kidney disease acute Anemia acute Edema acute Fibrillary glomerulonephritis acute Hyperkalemia acute Hyperparathyroidism acute [id number] acute Stage 3b chronic kidney disease (CKD) acute Type 2 diabetes mellitus wit h diabetic chronic kidney disease acute BMI 40.0-44.9, adult acute Diabetes acute Dietary counseling and surveillance acute HTN (hypertension) acute Hyperlipidemia acute Vitamin B 12 deficiency acut e Anemia acute Stage 3a chronic kidney disease (CKD) acute [facility] Work Phone: Evaluation note* Diagnosis Onset Date Resolution Status Anemia acute Edema acute Fibrillary glomerulonephritis acute Hyperparathyroidism acute [id number] acute Stage 3b chronic kidney disease (CKD) acute Type 2 diabetes mellitus wit h diabetic chronic kidney disease acute Anemia acute Edema acute Fibrillary glomerulonephritis acute Hyperkalemia acute Hyperparathyroidism acute [id number] acute Stage 3b chronic kidney disease (CKD) acute Type 2 diabetes mellitus wit h diabetic chronic kidney disease acute Anemia acute Edema acute Fibrillary glomerulonephritis acute Hyperkalemia acute Hyperparathyroidism acute [id number] acute Stage 3b chronic kidney disease (CKD) acute Type 2 diabetes mellitus wit h diabetic chronic kidney disease acute BMI 40.0-44.9, adult acute Diabetes acute Dietary counseling and surveillance acute HTN (hypertension) acute Hyperlipidemia acute Vitamin B 12 deficiency acut e Anemia acute Stage 3a chronic kidney disease (CKD) acute [facility] Work Phone: Evaluation note* Diagnosis Onset Date Resolution Status Anemia acute Edema acute Fibrillary glomerulonephritis acute Hyperparathyroidism acute [id number] acute Stage 3b chronic kidney disease (CKD) acute Type 2 diabetes mellitus wit h diabetic chronic kidney disease acute Anemia acute Edema acute Fibrillary glomerulonephritis acute Hyperkalemia acute Hyperparathyroidism acute [id number] acute Stage 3b chronic kidney disease (CKD) acute Type 2 diabetes mellitus wit h diabetic chronic kidney disease acute Anemia acute Edema acute Fibrillary glomerulonephritis acute Hyperkalemia acute Hyperparathyroidism acute [id number] acute Stage 3b chronic kidney disease (CKD) [...] Stage 3a chronic kidney disease (CKD) acute [facility] Work Phone: Evaluation note* Diagnosis Onset Date Resolution Status Anemia acute Edema acute Fibrillary glomerulonephritis acute Hyperkalemia acute Hyperparathyroidism acute [id number] acute Stage 3b chronic kidney disease (CKD) acute Type 2 diabetes mellitus wit h diabetic chronic kidney disease acute Anemia acute Edema acute Fibrillary glomerulonephritis acute Hyperkalemia acute Hyperparathyroidism acute [id number] acute Stage 3b chronic kidney disease (CKD) [...] Fibrillary glomerulonephritis acute Hyperkalemia acute Hyperparathyroidism acute [id number] acute Stage 3b chronic kidney disease (CKD) acute Type 2 diabetes mellitus wit h diabetic chronic kidney disease acute [facility] Work Phone: Evaluation note* Diagnosis Onset Date Resolution Status Anemia acute Edema acute Fibrillary glomerulonephritis acute Hyperkalemia acute Hyperparathyroidism acute [id number] acute Stage 3b chronic kidney disease (CKD) [...] Fibrillary glomerulonephritis acute Hyperkalemia acute Hyperparathyroidism acute [id number] acute Stage 3b chronic kidney disease (CKD) acute Type 2 diabetes mellitus wit h diabetic chronic kidney disease acute [facility] Work Phone: Evaluation note* Diagnosis [...] Fibrillary glomerulonephritis acute Hyperkalemia acute Hyperparathyroidism acute [id number] acute Stage 3b chronic kidney disease (CKD) acute Type 2 diabetes mellitus wit h diabetic chronic kidney disease acute Anemia acute Anemia of renal disease acut e 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 acute [id number] acute [facility] Work Phone: Evaluation note* Diagnosis Dermatophytosis of nail- Primary Dystrophic nail Other specified disease of nail Pain around toenail, right foot Pain around toenail, left foot [facility] Diagnosis Onset Date Resolution Status Anemia acute Anemia of renal disease acut e Stage 3a chronic kidney disease (CKD) acute Anemia of renal disease acut e Stage 3b chronic kidney disease (CKD) acute Anemia acute Edema acute Fibrillary glomerulonephritis acute Hyperkalemia acute Hyperparathyroidism acute [id number] acute Stage 3b chronic kidney disease (CKD) acute Type 2 diabetes mellitus wit h diabetic chronic kidney disease acute Anemia acute Anemia of renal disease acut e Stage 3b chronic kidney disease (CKD) acute Anemia acute Chronic kidney disease, stage IV (severe) acute Edema acute Fibrillary glomerulonephritis acute Hyperkalemia acute Hyperparathyroidism acute [id number] acute Type 2 diabetes mellitus wit h diabetic chronic kidney disease acute Anemia acute Chronic kidney disease, stage IV (severe) acute [facility] Work Phone: Evaluation note* 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- Primary PAF (paroxysmal 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) ([facility]) Atrial fibrillation [facility] Diagnosis Hyperlipidemia, unspecified hyperlipidemia type [facility] Diagnosis PAF (paroxysmal 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) ([facility])- Primary Atrial fibrillation [facility]* Diagnosis SOB (shortness of breath)- Primary Shortness of breath Abnormal CXR Nonspecific (abnormal) findings on radiological and other examination of lung field [facility] Diagnosis PAF (paroxysmal 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) ([facility])- Primary Atrial fibrillation [facility]* Diagnosis Dermatophytosis of nail- Primary Dystrophic nail Other specified disease of nail Pain around toenail, right foot Pain around toenail, left foot [facility]* AMB POC INR Time Frame: 2 Months, Location: Determined By Patient [facility] Work Phone: InstructionsNot on filedocumented [...] Malignant neoplasm Unknown sister Unknown Advance Directives Advance Directive Response Recorded Date/ Time Advance Directives No September 16, 2017 11:13am Advance Directive Response Recorded Date/ Time Advance Directives No September 16, 2017 12:13pm Date Activated Date Inactivated Comments 05/09/2023 2:38 AM 05/10/2023 5:20 PM Date Activated Date Inactivated Comments 07/11/2019 12:31 AM 2019 4:55 PM Date Activated Date Inactivated Comments 06/28/2019 7:15 AM 06/28/2019 8:15 PM Date Activated Date Inactivated Comments 05/09/2023 2:38 AM 05/10/2023 5:20 PM Date Activated Date Inactivated Comments 07/11/2019 12:31 AM 2019 4:55 PM Date Activated Date Inactivated Comments 06/28/2019 7:15 AM 06/28/2019 8:15 PM Chief Complaint and Reason for Visit Chief Complaint Renal 6 Month Follow Up Chief Complaint RENAL 3 month Follow up Reason for Visit Anemia BMI 50.0-59.9, adult Edema Hyperlipidemia [id number] 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 Chief Complaint RENAL 3 month Follow up kusum reader Reason for Visit Anemia BMI 50.0-59.9, adult Edema Hyperlipidemia [id number] 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 Diabetes Dietary counseling and surveillance HTN (hypertension) Hyperlipidemia Vitamin B 12 deficiency Chief Complaint RENAL 3 month Follow up kusum reader N18.32 R60.9 D64.9 Z68.43 E78.5 E11.22 I12.9 Reason for Visit Anemia BMI 50.0-59.9, adult Edema Hyperlipidemia [id number] 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 BMI 40.0-44.9, adult Diabetes Dietary counseling and surveillance HTN (hypertension) Hyperlipidemia Vitamin B 12 deficiency Chief Complaint RENAL 3 month Follow up kusum reader N18.32 R60.9 D64.9 Z68.43 E78.5 E11.22 I12.9 RENAL F/U Reason for Visit Anemia BMI 50.0-59.9, adult Edema Hyperlipidemia [id number] Stage 3b chronic kidney disease (CKD) Type 2 diabetes mellitus with diabetic chronic kidney disease BMI 40.0-44.9, adult Diabetes Dietary counseling and surveillance HTN (hypertension) Hyperlipidemia Vitamin B 12 deficiency Anemia Edema Fibrillary glomerulonephritis Hyperparathyroidism [id number] Stage 3b chronic kidney disease (CKD) Type 2 diabetes mellitus with diabetic chronic kidney disease Chief Complaint RENAL 3 month Follow up kusum reader N18.32 R60.9 D64.9 Z68.43 E78.5 E11.22 I12.9 RENAL F/U 3 week f/u Reason for Visit Anemia BMI 50.0-59.9, adult Edema Hyperlipidemia [id number] Stage 3b chronic kidney disease (CKD) Type 2 diabetes mellitus with diabetic chronic kidney disease BMI 40.0-44.9, adult Diabetes Dietary counseling and surveillance HTN (hypertension) Hyperlipidemia Vitamin B 12 deficiency Anemia Edema Fibrillary glomerulonephritis Hyperparathyroidism [id number] Stage 3b chronic kidney disease (CKD) Type 2 diabetes mellitus with diabetic chronic kidney disease Anemia Edema Fibrillary glomerulonephritis Hyperparathyroidism [id number] Stage 3b chronic kidney disease (CKD) Type 2 diabetes mellitus with diabetic chronic kidney disease Chief Complaint RENAL 3 month Follow up kusum reader N18.32 R60.9 D64.9 Z68.43 E78.5 E11.22 I12.9 RENAL F/U 3 week f/u RENAL 2 MONTH F/U Reason for Visit Anemia BMI 50.0-59.9, adult Edema Hyperlipidemia [id number] Stage 3b chronic kidney disease (CKD) Type 2 diabetes mellitus with diabetic chronic kidney disease BMI 40.0-44.9, adult Diabetes Dietary counseling and surveillance HTN (hypertension) Hyperlipidemia Vitamin B 12 deficiency Anemia Edema Fibrillary glomerulonephritis Hyperparathyroidism [id number] Stage 3b chronic kidney disease (CKD) Type 2 diabetes mellitus with diabetic chronic kidney disease Anemia Edema Fibrillary glomerulonephritis Hyperparathyroidism [id number] Stage 3b chronic kidney disease (CKD) Type 2 diabetes mellitus with diabetic chronic kidney disease Anemia Edema Fibrillary glomerulonephritis Hyperparathyroidism [id number] Stage 3b chronic kidney disease (CKD) Type 2 diabetes mellitus with diabetic chronic kidney disease Chief Complaint RENAL 3 month Follow up kusum reader N18.32 R60.9 D64.9 Z68.43 E78.5 E11.22 I12.9 RENAL F/U 3 week f/u RENAL 2 MONTH F/U RENAL 3 WK INJ RETACRIT Reason for Visit Anemia BMI 50.0-59.9, adult Edema Hyperlipidemia [id number] Stage 3b chronic kidney disease (CKD) Type 2 diabetes mellitus with diabetic chronic kidney disease BMI 40.0-44.9, adult Diabetes Dietary counseling and surveillance HTN (hypertension) Hyperlipidemia Vitamin B 12 deficiency Anemia Edema Fibrillary glomerulonephritis Hyperparathyroidism [id number] Stage 3b chronic kidney disease (CKD) Type 2 diabetes mellitus with diabetic chronic kidney disease Anemia Edema Fibrillary glomerulonephritis Hyperparathyroidism [id number] Stage 3b chronic kidney disease (CKD) Type 2 diabetes mellitus with diabetic chronic kidney disease Anemia Edema Fibrillary glomerulonephritis Hyperparathyroidism [id number] Stage 3b chronic kidney disease (CKD) Type 2 diabetes mellitus with diabetic chronic kidney disease Anemia Edema Fibrillary glomerulonephritis Hyperkalemia Hyperparathyroidism [id number] Stage 3b chronic kidney disease (CKD) Type [...] 12 deficiency Anemia Edema Fibrillary glomerulonephritis Hyperparathyroidism [id number] Stage 3b chronic kidney disease (CKD) Type 2 diabetes mellitus with diabetic chronic kidney disease Anemia Edema Fibrillary glomerulonephritis Hyperparathyroidism [id number] Stage 3b chronic kidney disease (CKD) Type 2 diabetes mellitus with diabetic chronic kidney disease Anemia Edema Fibrillary glomerulonephritis Hyperparathyroidism [id number] Stage 3b chronic kidney disease (CKD) Type 2 diabetes mellitus with diabetic chronic kidney disease Anemia Edema Fibrillary glomerulonephritis Hyperkalemia Hyperparathyroidism [id number] Stage 3b chronic kidney disease (CKD) Type 2 diabetes mellitus with diabetic chronic kidney disease Anemia Edema Fibrillary glomerulonephritis Hyperkalemia Hyperparathyroidism [id number] Stage 3b chronic kidney disease (CKD) Type 2 diabetes mellitus with diabetic chronic kidney disease Chief Complaint RENAL F/U 3 week f/u RENAL 2 MONTH F/U RENAL 3 WK INJ RETACRIT RENAL 2 WK INJ / RETACRIT METER Reason for Visit Anemia Edema Fibrillary glomerulonephritis Hyperparathyroidism [id number] Stage 3b chronic kidney disease (CKD) Type 2 diabetes mellitus with diabetic chronic kidney disease Anemia Edema Fibrillary glomerulonephritis Hyperparathyroidism [id number] Stage 3b chronic kidney disease (CKD) Type 2 diabetes mellitus with diabetic chronic kidney disease Anemia Edema Fibrillary glomerulonephritis Hyperparathyroidism [id number] Stage 3b chronic kidney disease (CKD) Type 2 diabetes mellitus with diabetic chronic kidney disease Anemia Edema Fibrillary glomerulonephritis Hyperkalemia Hyperparathyroidism [id number] Stage 3b chronic kidney disease (CKD) Type 2 diabetes mellitus with diabetic chronic kidney disease Anemia Edema Fibrillary glomerulonephritis Hyperkalemia Hyperparathyroidism [id number] Stage 3b chronic kidney disease (CKD) Type [...] for Visit Anemia Edema Fibrillary glomerulonephritis Hyperparathyroidism [id number] Stage 3b chronic kidney disease (CKD) Type 2 diabetes mellitus with diabetic chronic kidney disease Anemia Edema Fibrillary glomerulonephritis Hyperparathyroidism [id number] Stage 3b chronic kidney disease (CKD) Type 2 diabetes mellitus with diabetic chronic kidney disease Anemia Edema Fibrillary glomerulonephritis Hyperkalemia Hyperparathyroidism [id number] Stage 3b chronic kidney disease (CKD) Type 2 diabetes mellitus with diabetic chronic kidney disease Anemia Edema Fibrillary glomerulonephritis Hyperkalemia Hyperparathyroidism [id number] Stage 3b chronic kidney disease (CKD) Type [...] for Visit Anemia Edema Fibrillary glomerulonephritis Hyperparathyroidism [id number] Stage 3b chronic kidney disease (CKD) Type 2 diabetes mellitus with diabetic chronic kidney disease Anemia Edema Fibrillary glomerulonephritis Hyperkalemia Hyperparathyroidism [id number] Stage 3b chronic kidney disease (CKD) Type 2 diabetes mellitus with diabetic chronic kidney disease Anemia Edema Fibrillary glomerulonephritis Hyperkalemia Hyperparathyroidism [id number] Stage 3b chronic kidney disease (CKD) Type [...] for Visit Anemia Edema Fibrillary glomerulonephritis Hyperparathyroidism [id number] Stage 3b chronic kidney disease (CKD) Type 2 diabetes mellitus with diabetic chronic kidney disease Anemia Edema Fibrillary glomerulonephritis Hyperkalemia Hyperparathyroidism [id number] Stage 3b chronic kidney disease (CKD) Type 2 diabetes mellitus with diabetic chronic kidney disease Anemia Edema Fibrillary glomerulonephritis Hyperkalemia Hyperparathyroidism [id number] Stage 3b chronic kidney disease (CKD) Type [...] Visit Anemia Edema Fibrillary glomerulonephritis Hyperkalemia Hyperparathyroidism [id number] Stage 3b chronic kidney disease (CKD) Type 2 diabetes mellitus with diabetic chronic kidney disease Anemia Edema Fibrillary glomerulonephritis Hyperkalemia Hyperparathyroidism [id number] Stage 3b chronic kidney disease (CKD) Type [...] (CKD) Anemia Edema Fibrillary glomerulonephritis Hyperkalemia Hyperparathyroidism [id number] Stage 3b chronic kidney disease (CKD) Type [...] Visit Anemia Edema Fibrillary glomerulonephritis Hyperkalemia Hyperparathyroidism [id number] Stage 3b chronic kidney disease (CKD) Type [...] (CKD) Anemia Edema Fibrillary glomerulonephritis Hyperkalemia Hyperparathyroidism [id number] Stage 3b chronic kidney disease (CKD) Type [...] (CKD) Anemia Edema Fibrillary glomerulonephritis Hyperkalemia Hyperparathyroidism [id number] Stage 3b chronic kidney disease (CKD) Type 2 diabetes mellitus with diabetic chronic kidney disease Anemia Anemia of renal disease 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 [id number] Chief Complaint RENAL 2 WK INJ/RETAC RIT/NURSE RENAL 2WK INJ / RETACRIT / NURSE RENAL 2 WK INJ / RETACRIT / DR RENAL 2 WK INJ / RETACRIT / NURSE RENAL 3 WK INJ / RETACRIT / DR RENAL 3 WK INJ / RETACRIT / NURSE Reason for Visit Anemia Anemia of renal disease Stage 3a chronic kidney disease (CKD) Anemia of renal disease Stage 3b chronic kidney disease (CKD) Anemia Edema Fibrillary glomerulonephritis Hyperkalemia Hyperparathyroidism [id number] Stage 3b chronic kidney disease (CKD) Type 2 diabetes mellitus with diabetic chronic kidney disease Anemia Anemia of renal disease Stage 3b chronic kidney disease (CKD) Anemia Chronic kidney disease, stage IV (severe) Edema Fibrillary glomerulonephritis Hyperkalemia Hyperparathyroidism [id number] Type 2 diabetes mellitus with diabetic chronic kidney disease Anemia Chronic kidney disease, stage IV (severe) Chief Complaint Admit Date RENAL 2WK INJ / RETACRIT / NURSE January 13, 2024 10:53am RENAL 2 WK INJ / RETACRIT / DR January 27, 2024 1:47pm RENAL 2 WK INJ / RETACRIT / NURSE Septem 2023 2:10pm RENAL 3 WK INJ / RETACRIT / DR February 162023 9:43am RENAL 3 WK INJ / RETACRIT / NURSE Novemb er 2023 1:58pm RENAL 3 WK INJ / RETACRIT / NURSE Novemb er 2023 12:49pm Reason for Visit Admit Date Anemia of renal disease January 12 10:53am Stage 3b chronic kidney disease (CKD) Au ty 2023 10:53am Anemia January 27, 2024 1:47pm Edema January 27, 2024 1:47pm Fibrillary glomerulonephritis January 27, 2024 1:47pm Hyperkalemia January 27, 2024 1:47pm Hyperparathyroidism January 27, 2024 1:47pm Hypertensive chronic kidney disease with stage 1 through stage 4 chronic ki January 27, 2024 1:47pm Stage 3b chronic kidney disease (CKD) Se ptember 2023 1:47pm Type 2 diabetes mellitus wit h diabetic chronic kidney disease January 27, 2024 1:47pm Anemia February 10, 2024 2:10pm Anemia of renal disease February 10, 2024 2:10pm Stage 3b chronic kidney disease (CKD) Se ptember 2023 2:10pm Anemia March 02, 2024 9 :43am Chronic kidney disease, stage IV (severe ) March 02, 2024 9:43am Edema March 02, 2024 9 :43am Fibrillary glomerulonephritis March 022023 9:43am Hyperkalemia March 02, 2024 9 :43am Hyperparathyroidism March 02, 2024 9 :43am Hypertensive chronic kidney disease with stage 1 through stage 4 chronic ki March 02, 2024 9:43am Type 2 diabetes mellitus wit h diabetic chronic kidney disease March 02, 2024 9:43am Anemia March 23, 2024 1 :58pm Chronic kidney disease, stage IV (severe ) March 23, 2024 1:58pm Chief Complaint Admit Date RENAL 3 WK INJ / RETACRIT / NURSE Novemb er 2023 1:58pm RENAL 3 WK INJ / RETACRIT / NURSE Novemb er 2023 12:49pm RENAL 3 WK INJ / RETACRIT / NURSE Decemb er 2023 1:01pm RENAL 2 WK INJ / RETACRIT / DR May 04, 2024 11:08am Retacrit injection June 03, 2024 1 1:32am Reason for Visit Admit Date Anemia April 20, 2024 1 :01pm Chronic kidney disease, stage IV (severe ) April 20, 2024 1:01pm Edema April 20, 2024 1 :01pm Fibrillary glomerulonephritis April 202023 1:01pm Hyperkalemia April 20, 2024 1 :01pm Hyperparathyroidism April 20, 2024 1 :01pm Hypertensive chronic kidney disease with stage 1 through stage 4 chronic ki April 20, 2024 1:01pm Type 2 diabetes mellitus wit h diabetic chronic kidney disease April 20, 2024 1:01pm Chronic kidney disease, stage IV (severe ) May 04, 2024 11:08am 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 [facility] May 04, 2024 11:08am Anemia of renal disease June 03 11:32am 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 [facility] June 03, 2024 11:32am Reason for Visit Admit Date Anemia April 20, 2024 1 :01pm Chronic kidney disease, stage IV (severe ) April 20, 2024 1:01pm Edema April 20, 2024 1 :01pm Fibrillary glomerulonephritis April 202023 1:01pm Hyperkalemia April 20, 2024 1 :01pm Hyperparathyroidism April 20, 2024 1 :01pm Hypertensive chronic kidney disease with stage 1 through stage 4 chronic ki April 20, 2024 1:01pm Type 2 diabetes mellitus wit h diabetic chronic kidney disease April 20, 2024 1:01pm Chronic kidney disease, stage IV (severe ) May 04, 2024 11:08am 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 [facility] May 04, 2024 11:08am Anemia of renal disease June 03 11:32am 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 [facility] June 03, 2024 11:32am BMI 40.0-44.9, adult June 14, 2024 1:49pm Diabetes June 14, 2024 1 :49pm Dietary counseling and surveillance Freddy wilson 2024 1:49pm HTN (hypertension) June 14, 2024 1 :49pm Hyperlipidemia June 14, 2024 1 :49pm Chief Complaint Admit Date RENAL 3 WK INJ / RETACRIT / NURSE Novemb er 2023 1:58pm RENAL 3 WK INJ / RETACRIT / NURSE Novemb er 2023 12:49pm RENAL 3 WK INJ / RETACRIT / NURSE Decemb er 2023 1:01pm RENAL 2 WK INJ / RETACRIT / May 04, 2024 11:08am Retacrit injection June 03, 2024 1 1:32am RENAL 2-3 WK INJ F/U / RETACRIT / DR Cricket perez 2024 1:50pm Reason for Visit Admit Date Anemia April 20, 2024 1 :01pm Chronic kidney disease, stage IV (severe ) April 20, 2024 1:01pm Edema April 20, 2024 1 :01pm Fibrillary glomerulonephritis April 202023 1:01pm Hyperkalemia April 20, 2024 1 :01pm Hyperparathyroidism April 20, 2024 1 :01pm Hypertensive chronic kidney disease with stage 1 through stage 4 chronic ki April 20, 2024 1:01pm Type 2 diabetes mellitus wit h diabetic chronic kidney disease April 20, 2024 1:01pm Chronic kidney disease, stage IV (severe ) May 04, 2024 11:08am 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 [facility] May 04, 2024 11:08am Anemia of renal disease June 03 11:32am 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 [facility] June 03, 2024 11:32am BMI 40.0-44.9, adult June 14, 2024 1:49pm Diabetes June 14, 2024 1 :49pm Dietary counseling and surveillance Freddy wilson 2024 1:49pm HTN (hypertension) June 14, 2024 1 :49pm Hyperlipidemia June 14, 2024 1 :49pm Anemia June 17, 2024 1 :50pm 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 [facility] June 17, 2024 1:50pm Chief Complaint Admit Date RENAL 3 WK INJ / RETACRIT / NURSE Ginamb 2023 1:01pm RENAL 2 WK INJ / RETACRIT / May 04, 2024 11:08am Retacrit injection June 03, 2024 1 1:32am RENAL 2-3 WK INJ F/U / RETACRIT / DR Cricket perez 2024 1:50pm Reason for Visit Admit Date Anemia April 20, 2024 1 :01pm Chronic kidney disease, stage IV (severe ) April 20, 2024 1:01pm Edema April 20, 2024 1 :01pm Fibrillary glomerulonephritis April 202023 1:01pm Hyperkalemia April 20, 2024 1 :01pm Hyperparathyroidism April 20, 2024 1 :01pm Hypertensive chronic kidney disease with stage 1 through stage 4 chronic ki April 20, 2024 1:01pm Type 2 diabetes mellitus wit h diabetic chronic kidney disease April 20, 2024 1:01pm Chronic kidney disease, stage IV (severe ) May 04, 2024 11:08am 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 [facility] May 04, 2024 11:08am Anemia of renal disease June 03 11:32am 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 [facility] June 03, 2024 11:32am BMI 40.0-44.9, adult June 14, 2024 1:49pm Diabetes June 14, 2024 1 :49pm Dietary counseling and surveillance Freddy katie 2024 1:49pm HTN (hypertension) June 14, 2024 1 :49pm Hyperlipidemia June 14, 2024 1 :49pm Anemia June 17, 2024 1 :50pm Chronic kidney disease, stage IV (severe ) June 17, 2024 1:50pm Edema June 17, 2024 1 :50pm Fibrillary glomerulonephritis June 172024 1:50pm Hyperkalemia June 17, 2024 1 :50pm Hyperparathyroidism June 17, 2024 1 :50pm Hypertensive chronic kidney disease with stage 1 through stage 4 chronic ki June 17, 2024 1:50pm Type 2 diabetes mellitus wit h diabetic chronic kidney disease June 17, 2024 1:50pm Anemia 2024 9:50am Chronic kidney disease, stage IV (severe ) 2024 9:50am Edema 2024 9:50am Fibrillary glomerulonephritis June 202024 9:50am Hyperkalemia 2024 9:50am Hyperparathyroidism 2024 9:50am Hypertensive chronic kidney disease with stage 1 through stage 4 chronic ki 2024 9:50am Type 2 diabetes mellitus wit h diabetic chronic kidney disease 2024 9:50am Chief Complaint Admit Date RENAL 2 WK INJ / RETACRIT / May 04, 2024 11:08am Retacrit injection June 03, 2024 1 1:32am RENAL 2-3 WK INJ F/U / RETACRIT / DR Cricket perez 2024 1:50pm RENAL 2 WEEK F/U July 27, 2024 1:4 5pm Reason for Visit Admit Date Chronic kidney disease, stage IV (severe ) May 04, 2024 11:08am 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 [facility] May 04, 2024 11:08am Anemia of renal disease June 03 11:32am 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 [facility] June 03, 2024 11:32am BMI 40.0-44.9, adult June 14, 2024 1:49pm Diabetes June 14, 2024 1 :49pm Dietary counseling and surveillance Freddy wilson 2024 1:49pm HTN (hypertension) June 14, 2024 1 :49pm Hyperlipidemia June 14, 2024 1 :49pm Anemia June 17, 2024 1 :50pm Chronic kidney disease, stage IV (severe ) June 17, 2024 1:50pm Edema June 17, 2024 1 :50pm Fibrillary glomerulonephritis June 172024 1:50pm Hyperkalemia June 17, 2024 1 :50pm Hyperparathyroidism June 17, 2024 1 :50pm Hypertensive chronic kidney disease with stage 1 through stage 4 chronic ki June 17, 2024 1:50pm Type 2 diabetes mellitus wit h diabetic chronic kidney disease June 17, 2024 1:50pm Anemia 2024 9:50am Chronic kidney disease, stage IV (severe ) 2024 9:50am Edema 2024 9:50am Fibrillary glomerulonephritis June 202024 9:50am Hyperkalemia 2024 9:50am Hyperparathyroidism 2024 9:50am Hypertensive chronic kidney disease with stage 1 through stage 4 chronic ki 2024 9:50am Type 2 diabetes mellitus wit h diabetic chronic kidney disease 2024 9:50am Anemia July 27, 2024 1:4 5pm Chronic kidney disease, stage IV (severe ) July 27, 2024 1:45pm Edema July 27, 2024 1:4 5pm Fibrillary glomerulonephritis July 1:45pm Hyperkalemia July 27, 2024 1:4 5pm Hyperparathyroidism July 27, 2024 1:4 5pm Hypertensive chronic kidney disease with stage 1 through stage 4 chronic ki July 27, 2024 1:45pm Type 2 diabetes mellitus wit h diabetic chronic kidney disease July 27, 2024 1:45pm Additional Source Comments REASON FOR VISIT (unrecogniz ed section and content) Reason Comments Nail care Margie Martínez is a 83 y.o. female who presents for DM Foot Care PCP: Anika Henry LV 10/31/23, A1C: 5.4, BS:, 93 SS: 7.5-8). Reason Comments Med Refill Reason Comments DM Foot Care PCP: Chester Lin LV 06/16/24, A1C: 5.4, BS: 100, SS: 7.5-8 INFORMATION SOURCE (unrecogn ized section and content) DATE CREATED AUTHOR 10/27/2022 [facility] DATE CREATED AUTHOR AUTHOR'S ORGANIZ ATION 09/08/2023 [facility] DATE CREATED AUTHOR AUTHOR'S ORGANIZ ATION 01/13/2024 [facility] DATE CREATED AUTHOR AUTHOR'S ORGANIZ ATION 05/12/2024 [facility] DATE CREATED AUTHOR AUTHOR'S ORGANIZ ATION 07/02/2024 [facility] DATE CREATED AUTHOR AUTHOR'S ORGANIZ ATION 07/16/2024 [facility] Care Teams (unrecognized sec tion and content) Team Status: Active Member Role Status Dates Anika Henry [employer]DER-C Primary Care Provider Active Team Status: Inactive Member Role Status Dates Anika Henry [employer]-C Primary Care Provider Active Start: March 23, 2024 End: March 23, 2024 Rin Ramirez MD Attending Provider Active Star t: March 23, 2024 End: March 23, 2024 Team Status: Inactive Member Role Status Dates Anika Henry [employer]-C Primary Care Provider Active Start: March 30, 2024 End: March 30, 2024 Rin Ramirez MD Attending Provider Active Star t: March 30, 2024 End: March 30, 2024 Team Status: Active Member Role Status Dates Rin Ramirez MD Attending Provider Active Star t: April 13, 2024 Anika Henry [employer]-C Primary Care Provider Active Start: April 13, 2024 Team Status: Inactive Member Role Status Dates Anika Henry [employer]-C Primary Care Provider Active Start: April 20, 2024 End: April 20, 2024 Rin Ramirez MD Attending Provider Active Star t: April 20, 2024 End: April 20, 2024 Team Status: Active Member Role Status Dates Anika Henry [employer] G[employer] WEL[employer]-C Primary Care Provider Active Start: April 28, 2024 Rin Ramirez MD Attending Provider Active Star t: April 28, 2024 Team Status: Inactive Member Role Status Dates Anika Henry [employer]-C Primary Care Provider Active Start: May 04, 2024 End: May 04, 2024 Rin Ramirez MD Attending Provider Active Star t: May 04, 2024 End: May 04, 2024 Team Status: Active Member Role Status Dates Rin Ramirez MD Attending Provider Active Star t: May 25, 2024 Anika Henry [employer]-C Primary Care Provider Active Start: May 25, 2024 Team Status: Inactive Member Role Status Dates Anika Henry [employer]-C Primary Care Provider Active Start: June 03, 2024 End: June 03, 2024 Becca Rodriguez MD Attending Provider Active Start : June 03, 2024 End: June 03, 2024 Team Status: Active Member Role Status Dates Anika Henry [employer]-C Primary Care Provider Active Start: June 10, 2024 Becca Rodriguez MD Attending Provider Active Start : June 10, 2024 Team Status: Inactive Member Role Status Dates Anika Henry , [employer]-C Primary Care Provider Active Start: June 14, 2024 End: June 14, 2024 Chester Lin APRN Attending Provider Active Start: June 14, 2024 End: June 14, 2024 Team Status: Inactive Member Role Status Dates Anika Henry [employer]-C Primary Care Provider Active Start: June 17, 2024 End: June 17, 2024 Becca Rodriguez MD Attending Provider Active Start : June 17, 2024 End: June 17, 2024 Team Status: Active Member Role Status Dates Rin Ramirez MD Attending Provider Active Star t: January 05, 2024 Anika Henry [employer]-C Primary Care Provider Active Start: January 05, 2024 Team Status: Inactive Member Role Status Dates Anika Henry [employer]-C Primary Care Provider Active Start: January 13, 2024 End: January 13, 2024 Rin Ramirez MD Attending Provider Active Star t: January 13, 2024 End: January 13, 2024 Team Status: Active Member Role Status Dates Becca Rodriguez MD Attending Provider Active Start : January 20, 2024 Anika Henry [employer]-C Primary Care Provider Active Start: January 20, 2024 Team Status: Active Member Role Status Dates Rin Ramirez MD Attending Provider Active Star t: January 23, 2024 Anika Henry [employer] G[employer]-C Primary Care Provider Active Start: January 23, 2024 Team Status: Inactive Member Role Status Dates Anika Henry [employer] G[employer] WELDER-C Primary Care Provider Active Start: January 27, 2024 End: January 27, 2024 Rin Ramirez MD Attending Provider Active Star t: January 27, 2024 End: January 27, 2024 Team Status: Active Member Role Status Dates Rin Ramirez MD Attending Provider Active Star t: February 03, 2024 Anika Henry [employer]-C Primary Care Provider Active Start: February 03, 2024 Team Status: Inactive Member Role Status Dates Anika Henry [employer] G[employer] WELDER-C Primary Care Provider Active Start: February 10, 2024 End: February 10, 2024 Rin Ramirez MD Attending Provider Active Star t: February 10, 2024 End: February 10, 2024 Team Status: Active Member Role Status Dates Rin Ramirez MD Attending Provider Active Star t: February 23, 2024 Anika Henry [employer] G[employer]-C Primary Care Provider Active Start: February 23, 2024 Team Status: Inactive Member Role Status Dates Anika Henry [employer] G[employer] WEL[employer]-C Primary Care Provider Active Start: March 02, 2024 End: March 02, 2024 Rin Ramirez MD Attending Provider Active Star t: March 02, 2024 End: March 02, 2024 Team Status: Active Member Role Status Dates Anika Henry [employer] G[employer] WEL[employer]-C Primary Care Provider Active Start: March 17, 2024 Rin Ramirez MD Attending Provider Active Star t: March 17, 2024 Team Status: Inactive Member Role Status Dates Anika Henry [employer]-C Primary Care Provider Active Start: December 08, 2023 End: December 08, 2023 Chester Lin APRN Attending Provider Active Start: December 08, 2023 End: December 08, 2023 Team Status: Inactive Member Role Status Dates Anika Henry [employer] G[employer] WEL[employer]-C Primary Care Provider Active Start: December 11, 2023 End: December 11, 2023 Becca Rodriguez MD Attending Provider Active Start : December 11, 2023 End: December 11, 2023 Team Status: Inactive Member Role Status Dates Anika Henry [employer] G[employer] WEL[employer]-C Primary Care Provider Active Start: December 30, 2023 End: December 30, 2023 Rin Ramirez MD Attending Provider Active Star t: December 30, 2023 End: December 30, 2023 Team Status: Active Member Role Status Dates Anika Henry [employer] G[employer] WELDER-C Primary Care Provider Active Start: October 30, 2023 Rin Ramirez MD Attending Provider Active Star t: October 30, 2023 Team Status: Inactive Member Role Status Dates Anika Henry [employer] G[employer] WEL[employer]-C Primary Care Provider Active Start: November 05, 2023 End: November 05, 2023 Rin Ramirez MD Attending Provider Active Star t: November 05, 2023 End: November 05, 2023 Team Status: Active Member Role Status Dates Anika Henry [employer] AND G[employer] WELDER-C Primary Care Provider Active Start: November 13, 2023 Rin Ramirez MD Attending Provider Active Star t: November 13, 2023 Team Status: Inactive Member Role Status Dates Anika Henry [employer] G[employer] WEL[employer]-C Primary Care Provider Active Start: November 18, 2023 End: November 18, 2023 Rin Ramirez MD Attending Provider Active Star t: November 18, 2023 End: November 18, 2023 Team Status: Active Member Role Status Dates Rin Ramirez MD Attending Provider Active Star t: November 27, 2023 Anika Henry AR[employer] G[employer] WELDER-C Primary Care Provider Active Start: November 27, 2023 Team Status: Inactive Member Role Status Dates Anika Henry [employer] AND G[employer] WELDER-C Primary Care Provider Active Start: October 15, 2023 End: October 15, 2023 Rin Ramirez MD Attending Provider Active Star t: October 15, 2023 End: October 15, 2023 Team Status: Active Member Role Status Dates Anika Henry [employer] G[employer] WEL[employer]-C Primary Care Provider Active Start: September 16, 2023 Rin Ramirez MD Attending Provider Active Star t: September 16, 2023 Team Status: Inactive Member Role Status Andrsé Henry [employer] G[employer]-C Primary Care Provider Active Start: September 23, 2023 End: September 23, 2023 Rin Ramirez MD Attending Provider Active Star t: September 23, 2023 End: September 23, 2023 Team Status: Active Member Role Status Andrés Ramirez MD Attending Provider Active Star t: October 07, 2023 Anika Henry [employer] G[employer]-C Primary Care Provider Active Start: October 07, 2023 Team Status: Inactive Member Role Status Dates Anika Henry [employer] G[employer] WELDER-C Primary Care Provider Active Start: August 13, 2023 End: August 13, 2023 Rin Ramirez MD Attending Provider Active Star t: August 13, 2023 End: August 13, 2023 Team Status: Inactive Member Role Status Dates Anika Henry [employer] G[employer]EL[employer]-C Primary Care Provider Active Start: August 20, 2023 End: August 20, 2023 Chester Lin APRN Attending Provider Active Start: August 20, 2023 End: August 20, 2023 Team Status: Inactive Member Role Status Dates RD JiangC Primary Care Provider Active Start: September 01, 2023 End: September 01, 2023 Rin Ramirez MD Attending Provider Active Star t: September 01, 2023 End: September 01, 2023 Team Status: Inactive Member Role Status Dates ALFREDO Jiang Primary Care Provider Active Start: September 09, 2023 End: September 09, 2023 Rin Ramirez MD Attending Provider Active Star t: September 09, 2023 End: September 09, 2023 Team Status: Active Member Role Status Dates ALFREDO Jiang Primary Care Provider Active Start: August 01, 2023 Rin Ramirez MD Attending Provider Active Star t: August 01, 2023 Team Status: Active Member Role Status Dates ALFREDO Jiang Primary Care Provider Active Start: August 05, 2023 Rin Ramirez MD Attending Provider Active Star t: August 05, 2023 Team Status: Inactive Member Role Status Dates Rin Ramirez MD Attending Provider Active Star t: April 22, 2023 End: April 22, 2023 Electrical Sign Wirer Relationship Specialty Start Date End Date Cole Henry MD [address] [place] [id number] PCP - General Family Medicine 11/20/22 Electrical Sign Wirer Relationship Specialty Start Date End Date Cole Henry MD [address] [place] [id number] PCP - General Family Medicine 11/20/22 Electrical Sign Wirer Relationship Specialty Start Date End Date Anika Henry APRN-CNP [address] [facility] [address] PCP - General Family Medicine 04/29/23 Electrical Sign Wirer Relationship Specialty Start Date End Date Anika Henry APRN-TRUCK TRAILER MECHANIC [address] [facility], [place] [address] PCP - General Family Medicine 04/29/23 Electrical Sign Wirer Relationship Specialty Start Date End Date Anika Henry APRNTRUCK TRAILER MECHANIC [address] [facility], [place] [address] PCP - General Family Medicine 04/29/23 Electrical Sign Wirer Relationship Specialty Start Date End Date Anika Henry APRN-TRUCK TRAILER MECHANIC [address] [facility], [place] [address] PCP - General Family Medicine 04/29/23 Electrical Sign Wirer Relationship Specialty Start Date End Date Anika Henry APRNTRUCK TRAILER MECHANIC [address] [facility], [place] [address] PCP - General Family Medicine 04/29/23 Electrical Sign Wirer Relationship Specialty Start Date End Date Cole Henry MD [address] [place] [address] PCP - General Family Medicine 11/20/22 Electrical Sign Wirer Relationship Specialty Start Date End Date Cole Henry MD [address] [place] [address] PCP - General Family Medicine 11/20/22 Team Status: Inactive Member Role Status Dates ALFREDO Jiang Primary Care Provider Active Start: 2024 End: 2024 Rin Ramirez MD Attending Provider Active Star t: 2024 End: 2024 Team Status: Active Member Role Status Dates Rin Ramirez MD Attending Provider Active Star t: July 20, 2024 Anika Deepa Elaine , [employer] G[employer]DER-C Primary Care Provider Active Start: July 20, 2024 Team Status: Inactive Member Role Status Dates Anika Henry , [employer] G[employer] WELDER-C Primary Care Provider Active Start: July 27, 2024 End: July 27, 2024 Rin Ramirez MD Attending Provider Active Star t: July 27, 2024 End: July 27, 2024 Electrical Sign Wirer Relationship Specialty Start Date End Date Anika Henry, IMPROVEMENT ENGINEER-TRUCK TRAILER MECHANIC [address] [place] [address] PCP - General Family Medicine 04/29/23 Goals [...] BE BASED ON THE PRIMARY CLINICAL RECORDS. [employer] provides no warranty or guarantee of the accuracy or completeness of information in this document.
[2024-08-04 10:17] LABS: Hematocrit 33.2 % (36.0-48.0); Hemoglobin 10.1 g/dL (12.0-16.0); Mean Corpuscular HGB Conc 30.4 g/dL (29.9-35.2); Mean Corpuscular Hemoglobin 30.1 pg (26.7-34.0); Mean Corpuscular Volume 98.8 fL (81.0-99.0); Mean Platelet Volume 9.5 fL (9.5-13.5); Platelet Count 196 10^3/uL (150-450); Red Blood Count 3.36 10^6/uL (4.20-5.40); Red Cell Distribution Width 15.4 % (11.0-15.0); White Blood Count 6.1 10^3/uL (4.0-11.0)
[2024-08-04 10:53] LABS: Albumin Level 3.2 g/dL (3.4-5.0); Anion Gap 10.9; BUN Creatinine Ratio 15.8; Calcium 8.9 mg/dL (8.5-10.1); Carbon Dioxide 29.7 mmol/L (21.0-32.0); Chloride 105 mmol/L (98-107); Estimated GFR (African America 20 (>=60 mL/min/1.73m^2); Estimated GFR (Non-African Ame 17 (>=60 mL/min/1.73m^2); Glucose 122 mg/dL (74-106); Phosphorus 3.6 mg/dL (2.6-4.7); Potassium 4.6 mmol/L (3.5-5.1); Sodium 141 mmol/L (136-145)
== END 2024-08-04 10:03 | disposition home or self-care (01) ==
LOC: LAB 10:03
PROVIDERS: PCP Nurse Practitioner Family; Visit Provider Internal Medicine Nephrology
DX: N18.4 Chronic kidney disease, stage 4 (severe) (principal); D64.9 Anemia, unspecified
CPT/HCPCS: 36415; 80069; 85027

== ENCOUNTER 2024-09-02 09:49 | Outpatient (OUT) | payer MEDICARE, SELFPAY ==
--- OUTSIDE RECORDS SUMMARY | 2024-09-02 09:59 | XMS_ITS | CCD ---
Author Organization [facility] Care Team Providers Care Trade Mark Attorney Name Role Phone Chester Lin Unavailable Rin Ramirez Unavailable Marixa Vasquez Unavailable Becca Rodriguez Unavailable ELAINE, ANIKA Primary Care Unavailable ELAINE, ANIKA Admitting Unavailable ELAINE, ANIKA Attending Unavailable ELAINE, ANIKA Consulting Unavailable ELAINE, ANIKA Primary Care Unavailable BAKSILVIASDOMINGOIZ Attending Unavailable BAKSILVIAS AZIZ Consulting Unavailable BAKSILVIAS AZIZ Admitting Unavailable Elaine, 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 Anika Deepa Primary Care Provider [phone] MD Rin Ramirez Attending Provider Elizabeth Lightela Deepa Primary Care Unavailable Baksilvias Aziz Attending Unavailable Baksilvias, Aziz Admitting Unavailable NO FAMILY, PHYSICIAN Primary Care Unavailable Chandrakant Lina K Attending Unavailable Chandrakant Lina K Admitting Unavailable Cole Light MD Primary Care Provider [phone] Elaine MACHINIST MATE-TREASURY MANAGER, Anika S Primary Care Provider ANITA MCCOY Attending Unavailable ELAINE, ANIKA S Referring Unavailable ELAINE, ANIKA S Primary Care Unavailable ANITA MCCOY Attending Unavailable ELAINE, ANIKA S Referring Unavailable ELAINE, ANIKA S Primary Care Unavailable Cole Light MD Primary Care Provider LUCI GANT Attending Unavailable LUCI GANT Attending Unavailable LUCI GANT Attending Unavailable LUCI GANT Attending Unavailable Elaine MACHINIST MATE-TREASURY MANAGER, Anika S Primary Care Provider SERVICE, JOBST Referring Unavailable ELAINE, ANIKA S Primary Care Unavailable SERVICE, JOBST Referring Unavailable ELAINE, ANIKA S Primary Care Unavailable SERVICE, JOBST Referring Unavailable ELAINE, ANIAK S Primary Care [...] S Primary Care Unavailable EUSEBIO ÁLVAREZ Attending Unavailab le DECHRISTOPHEUSEBIO CLEARY Referring Unavailab le ELAINE, ANIKA S Primary Care Unavailable MEDICATION MANAGEMENT, [facility] Referr ing Unavailable ELAINE, ANIKA S Primary Care Unavailable MEDICATION MANAGEMENT, [facility] Referr ing Unavailable ELAINE, ANIKA S Primary Care Unavailable KAITY LEIJA Attending Unavailable ELAINE, ANIKA S Referring Unavailable ELAINE, ANIKA S Primary Care Unavailable MEDICATION MANAGEMENT, [facility] Referr ing Unavailable ELAINE, ANIKA S Primary Care Unavailable KEL SOTELO Referring Unavailable ELAINE, ANIKA S Primary Care Unavailable ASHLEIGHKEL Santos R Referring Unavailable ELAINE, ANIKA S Primary Care Unavailable Allergies Allergy Classification Reported Allergen(s) Allergy Type Date of Onset Reaction(s) Facility Angiotensin Converting Enzyme (JANETH) Inhibitors (1 source) Lisinopril Drug Allergy 11-18-19 [facility] Penicillins (antibiotic) (1 source) Penicillins Drug Allergy 11-18-19 [facility] Sulfonamides (antibiotic) (1 source) Sulfonamides (Antibiotic) Drug Allergy 11-18-19 24 [facility] (20 sources) Lisinopril Drug Allergy 04-22-20 23 cough [facility] (20 sources) Penicillins (Antibiotic) Propensity to adverse reactions [facility] IAMINTOIT Other (20 sources) Sulfonamides (Antibiotic) Propensity to adverse reactions [facility] IAMINTOIT Other (20 sources) Penicillins; Translations: [PENICILLINS] Drug allergy (disorder) 04-05-20 16 [facility] (1 source) Sulfonamides (Antibiotic) Drug allergy (disorder) 06-04-19 21 [facility] (20 sources) Sulfonamides (Antibiotic); Translations: [Sulfa (Sulfonamide Antibiotics)] Allergy to substance 04-05-20 16 [facility] (1 source) Lisinopril Drug Allergy 09-01-19 24 [facility] (1 source) Penicillins Drug allergy (disorder) 09-01-19 24 [facility] (4 sources) Penicillins Propensity to adverse reactions 11-21-19 23 [facility] (17 sources) Sulfamethoxazole / Trimethoprim; Translations: [SULFAMETHOXAZOLE-T RIMETHOPRIM] Drug Allergy 06-27-19 20 [facility] (4 sources) Sulfonamides (Antibiotic) Propensity to adverse reactions 11-21-19 23 [facility] (13 sources) Angiotensin-convert ing enzyme inhibitor agent; Translations: [JANETH INHIBITORS] Propensity to adverse reactions to drug 05-09-20 23 Other (See Comments) [facility] (13 sources) celecoxib; Translations: [CELECOXIB] Drug Allergy 05-09-20 Other (See Comments) [facility] (13 sources) Ibuprofen; Translations: [IBUPROFEN] Drug Allergy 05-09-[address] [facility] (6 sources) Penicillins Propensity to adverse reactions to drug 04-05-20 16 [facility] (2 sources) Penicillins Propensity to adverse reactions to drug 04-05-[address] [facility] Medications Current Medications Medication Drug Class(es) Dates Sig (Normalized) Sig (Original) [id number] 200 actuat albuterol 0.09 mg/actuat metered dose inhaler (20 sources) beta2-Adrenergic Agonist Start: 09-15-2023 take 2 puff(s) by inhalation every six hours as needed for wheezing albuterol (PROVENTIL HFA;VENTOLIN HFA) 90 mcg/actuation inhaler Indications: Shortness of breath , Chronic obstructive pulmonary disease, unspecified COPD type ([facility]) Inhale 2 puffs every 6 [...] mL nebulizer Indications: COPD with acute exacerbation ([facility]) Inhale 3 mL by nebulization [...] tablet (20 sources) Antiarrhythmic Start: 07-30-2023 End: 08-23-2024 take 1 tablet by mouth in the morning amiodarone (PACERONE) 200 mg tablet Indications: PAF (paroxysmal 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) ([facility]) Take 1 tablet (200 mg total) by mouth in the morning. 90 tablet 08/23/2024 Active Start: 07-30-2023 End: 05-10-2024 take 1 tablet by mouth twice daily Amiodarone 200 mg tablet Discontinued 200 MG PO Twice daily August 13, 2023 12:00am December 30, 2023 1:50pm b complex vitamins capsule (15 sources) take 1 capsule by mouth in [...] puffs Inhalation Twice a day Active calcitriol 0.27876 mg oral capsule (20 sources) Vitamin D3 Analog Start: 09-09-2023 End: 10-15-2023 take 1 capsule by mouth every week Calcitriol 0.25 mcg capsule Active 0.25 MCG PO 3 Times a week 39 90 October 15, 2023 2:08pm administer after dialysis on dialysis days cholecalciferol 0.05 mg oral tablet (15 sources) Vitamin D take 1 tablet by [...] 12:00am Start: 08-13-2023 take 2000 [IU] by mo ut once daily Ergocalciferol (Vitamin D2) Active 2000 UNIT PO Daily August 12, 2023 11:00pm take 1 tablet by laura every twenty-four hours Vitamin D2 50 MCG (2000 UT) 1 tablet Orally Once a day Active Ferric Carboxymaltose (4 sources) Start: 06-17-2024 inject 100 mg intravenously [...] / salmeterol 0.05 mg/actuat dry powder inhaler (20 sources) Corticosteroid, beta2-Adrenergic Agonist Start: 01-27-2024 Fluticasone [...] 84 Active FREESTYLE KUSUM 2 SENSOR kit (11 sources) Start: 10-13-2022 FREESTYLE KUSUM 2 SENSOR [...] LUNCH, 2 TAB AT BEDTIME 05/28/2023 Active 3 ml insulin glargine 100 un t/ml [...] MCG tablet Indications: PAF (paroxysmal 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) ([facility]) , 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 Active take 1 tablet by laura every twenty-four hours Levothyroxine Sodium 100 MCG [...] meter SQ QID for 90 Active Oxygen (11 sources) oxygen Inhale on ce daily at bedtime. Active oxygen Inhale co ntinuously. Active Ozempic (0.25 or 0.5 MG/DOSE) 2 [...] 90 tablet 05/10/2024 Active sodium zirconium cyclosilicate 51068 mg powder for oral suspension (10 sources) Start: 07-13-19 take 10 g by mouth three times weekly LOKELMA 10 gram packet Take 10 g by mouth 3 (three) times a week. 07/21/2024 Active Start: 06-17-2024 End: 2024 Sodium Zirconium Cyclosilica te (Lokelma) 10 gram powder in packet Discontinued 10 GM PO Daily June 17, 2024 1:00am 2024 11:25am spironolactone 25 mg oral tablet (20 sources) Aldosterone Antagonist Start: 10-22-2022 take 1 tablet by mouth three times weekly spironolactone (ALDACTONE) 25 mg tablet Take 1 tablet (25 mg total) by mouth 3 (three) times a week. 10/22/2022 Active Start: 10-22-2022 Spironolactone (Aldactone) 25 mg tablet Active 25 MG PO Every 48 hours 60 2024 1:00am Start: 10-22-2022 End: 11-05-2023 take 1 tablet [...] 90 tablet 3 05/10/2023 Active Epoetin Ochoa-Epbx (20 sources) Start: 09-09-2023 End: 09-23-2023 Epoetin Ochoa-Epbx (Retacrit) 20,000 unit/2 mL solution Discontinued 46693 UNIT SUBCUT 3 Times a week 77.985 90 September 08, 2023 11:00pm September 23, 2023 9:48am Start: 09-09-2023 End: 09-23-2023 Epoetin Ochoa-Epbx (Retacrit) 20,000 unit/2 mL solution Discontinued 92613 UNIT SUBCUT 3 Times a week 77.985 90 September 09, 2023 12:00am September 23, 2023 10:48am Start: 09-09-2023 Epoetin Ochoa-E pbx (Retacrit) 20,000 unit/2 mL solution Active 15119 UNIT SUBCUT 3 Times a week 77.985 [...] patiromer 8400 mg powder for oral suspension (20 sources) Potassium Binder Start: 06-17-2024 End: 2024 [...] 09-01-2023 Chronic obstructive pulmonary disease and bronchiectasis (12 sources) Acute exacerbation of chronic obstructive airways disease; Translations: [Chronic obstructive pulmonary disease with (acute) exacerbation] Onset: 06-27-2019 05-09-2023 Chronic Conduction disorders (11 sources) Sinus node dysfunction; Translations: [Other specified [...] sources) Long-term current use of insulin; Translations: [retirement (current) use of insulin] Episodic Other aftercare (4 sources) buttermaker helper (current) use of insulin Onset: 05-23-2021 Resolved: 05-23-2021 Episodic Other aftercare (2 sources) Drug therapy finding; Translations: [Other extermination inspector (current) drug therapy] 05-10-2024 Episodic Other aftercare (1 source) Encounter for therapeutic drug level monitoring; Translations: [Encounter for therapeutic drug level monitoring] Onset: 08-25-2024 Episodic Other aftercare (1 source) Other mcc (current) drug therapy; Translations: [Other mcc (current) drug therapy] Onset: 06-16-2024 Episodic Other connective tissue disease (4 sources) Pain in toe; Translations: [Pain in right toe(s)] 03-16-2024 Episodic Other endocrine disorders (20 sources) Hyperparathyroidism; Translations: [Hyperparathyroidism , unspecified] 09-09-2023 [...] nutritional; endocrine; and metabolic disorders (11 sources) Severe obesity; Translations: [Class 3 severe obesity in adult] Onset: 07-26-2019 07-26-2019 Chronic Other screening for suspected conditions (not mental disorders or infectious disease) (2 sources) Imaging of thorax abnormal; Translations: [Abnormal findings on diagnostic imaging of other specified body structures] 05-20-2024 Chronic Other skin disorders (2 sources) Dystrophia unguium; 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] 03-16-2024 Episodic Residual codes; unclassified (11 sources) Obstructive sleep apnea syndrome; Translations: [Obstructive sleep apnea (adult) (pediatric)] Onset: 10-26-2009 05-06-2023 Chronic Residual codes; unclassified (20 sources) Edema, unspecified; Translations: [Edema] Onset: 10-23-2021 Resolved: 01-28-2022 Episodic Residual codes; unclassified (20 sources) Edema; Translations: [Edema, unspecified] 08-12-2023 Episodic Spondylosis; intervertebral disc disorders; other back problems (2 sources) Backache; Translations: [Dorsalgia, unspecified] 08-17-2024 Episodic Thyroid disorders (4 sources) Hypothyroidism, unspecified; Translations: [HYPOTHYROIDISM UNSPECIFIED] Onset: 10-30-2021 Chronic Past or Other Problems Problem Classification Problem Date Documented Date Episodic/Chronic Mood disorders (11 sources) Mood disorders Onset: 05-09-2023 05-09-2023 Other lower respiratory disease (14 sources) Dyspnea; Translations: [Shortness of breath] Onset: 02-10-2014 07-22-2019 Episodic Other lower respiratory disease (2 sources) Shortness of breath; Translations: [Shortness of breath] Onset: 07-22-2019 Episodic Other screening for suspected conditions (not mental disorders or infectious disease) (11 sources) Abnormal results of cardiovascular function studies; Translations: [Abnormal result of cardiovascular function study, unspecified] Onset: 12-05-2009 07-22-2019 Episodic Results Test Name Value Interpretation Reference Range Facility COMPLETE BLOOD COUNTon 08-25 Erythrocyte distribution width (RBC) [Ratio] 16.8 % High 11.5-15.0 [facility] Comment on above: Performed By: #### C ELIDA MAGDALENO, 00321-8, , THYR #### [facility] ([id number]) [address], [address] [place] [address] Hematocrit (Bld) [Volume fraction] 32.8 % Low 35-47 [facility] Comment on above: Performed By: #### C SHARLA, ELIDA, 44904-8, , THYR #### [facility] ([id number]) [address], [address] [place] [address] Hemoglobin (Bld) [Mass/Vol] 10.6 g/dL Low 11.7-15.5 [facility] Comment on above: Performed By: #### Thuy BC, CMP, 08092-8, , THYR #### [facility] ([id number]) [address], [address] [place] [address] MCH (RBC) [Entitic mass] 30.4 pg Normal 27-34 [facility] Comment on above: Performed By: #### Thuy MAGDALENO, CMP, 18896-1, , THYR #### [facility] ([id number]) [address], [address] [place] [address] MCHC (RBC) [Mass/Vol] 32.3 g/dL Normal 32-36 [facility] Comment on above: Performed By: #### Thuy BC, CMP, 28728-5, , THYR #### [facility] ([id number]) [address], [address] [place] [address] MCV (RBC) [Entitic vol] 94 fL Normal 80-100 [facility] Comment on above: Performed By: #### Thuy BC, CMP, 07201-2, , THYR #### [facility] ([id number]) [address], [address] [place] [address] Platelet mean volume (Bld) [Entitic vol] 7.9 fL Normal 7-12 [facility] Comment on above: Performed By: #### Thuy BC, CMP, 13393-1, , THYR #### [facility] ([id number]) [address], [address] [place] [address] Platelets (Bld) [#/Vol] 222 10*3/uL Normal 150-450 [facility] Comment on above: Performed By: #### C BC, CMP, 52675-2, 95576-6, THYR #### [facility] ([id number]) [address], [address] [place] [address] RBC COUNT 3.48 X10E12/L Low 3.80-5.20 [facility] Comment on above: Performed By: #### C BC, CMP, 19322-0, , THYR #### [facility] ([id number]) [address], [address] [place] [address] WBC (Bld) [#/Vol] 5.7 10*3/uL Normal 4.0-11.0 [facility] Comment on above: Performed By: #### C BC, CMP, 52507-9, , THYR #### [facility] ([id number]) [address], [address] [place] [address] COMPREHENSIVE METABOLIC PANE Nahun 08-25-2024 Albumin [Mass/Vol] 3.7 g/dL Normal 3.2-5.3 [facility] Comment on above: Performed By: #### C BC, CMP, 04035-9, , THYR #### [facility] ([id number]) [address], [address] [place] [address] ALP [Catalytic activity/Vol] 97 U/L Normal 39-130 [facility] Comment on above: Performed By: #### C BC, CMP, 47025-4, , THYR #### [facility] ([id number]) [address], [address] [place] [address] ALT [Catalytic activity/Vol] 9 U/L Normal 0-31 [facility] Comment on above: Performed By: #### C BC, CMP, 97053-4, , THYR #### [facility] ([id number]) [address], [address] [place] [address] Anion gap [Moles/Vol] 12 mmol/L Normal 5-15 [facility] Comment on above: Performed By: #### Thuy MAGDALENO, [facility], 01337-2, , THYR #### [facility] ([id number]) [address], [address] [place] [address] AST [Catalytic activity/Vol] 10 U/L Normal 0-41 [facility] Comment on above: Performed By: #### Thuy BC, CMP, 74105-2, , THYR #### [facility] ([id number]) [address], [address] [place] [address] Bilirubin [Mass/Vol] 0.3 mg/dL Normal 0.3-1.2 [facility] Comment on above: Performed By: #### Thuy MAGDALENO, [facility], 75816-8, , THYR #### [facility] ([id number]) [address], [address] [place] [address] Calcium [Mass/Vol] 9.1 mg/dL Normal 8.5-10.5 [facility] Comment on above: Performed By: #### Thuy BC, [facility], 45877-9, , THYR #### [facility] ([id number]) [address], [address] [place] [address] Chloride [Moles/Vol] 104 mmol/L Normal 98-109 [facility] Comment on above: Performed By: #### C BC, CMP, 16756-2, , THYR #### [facility] ([id number]) [address], [address] [place] [address] CO2 [Moles/Vol] 26 mmol/L Normal 22-32 [facility] Comment on above: Performed By: #### Thuy BC, CMP, 99429-3, , THYR #### [facility] ([id number]) [address], [address] [place] [address] Creatinine [Mass/Vol] 2.93 mg/dL High 0.40-1.00 [facility] Comment on above: Result Comment: METH OD TRACEABLE TO IDMS STANDARD Performed By: #### Thuy MAGDALENO CMP, 69431-0, , THYR #### [facility] ([id number]) [address], [address] [place] [address] GFR/1.73 sq M.predicted among non-blacks MDRD (S/P/Bld) [Vol rate/Area] 15 mL/min/{1.73_m2} Low >59 [facility] Comment on above: Result Comment: Reported eGFR is based on the CKD-EPI 2020 equation that does not use a race coefficient. Performed By: #### Thuy MAGDALENO CMP, , , THYR #### [facility] ([id number]) [address], [address] [place] [address] Glucose [Mass/Vol] 83 mg/dL Normal 65-99 [facility] Comment on above: Performed By: #### Thuy MAGDALENO CMP, , , THYR #### [facility] ([id number]) [address] [place] [address] Potassium [Moles/Vol] 4.4 mmol/L Normal 3.5-5.0 [facility] Comment on above: Performed By: #### Thuy MAGDALENO CMP, , , THYR #### [facility] ([id number]) [address] [address] [place] [address] Protein [Mass/Vol] 6.5 g/dL Normal 6.0-8.0 [facility] Comment on above: Performed By: #### Thuy MAGDALENO CMP, , , THYR #### [facility] ([id number]) [address], [address] [place] [address] Sodium [Moles/Vol] 142 mmol/L Normal 134-146 [facility] Comment on above: Performed By: #### Thuy MAGDALENO, [facility], 78503-1, , THYR #### [facility] ([id number]) [address], [address] [place] [address] Urea nitrogen [Mass/Vol] 48 mg/dL High 5-27 [facility] Comment on above: Performed By: #### Thuy MAGDALENO, [facility], 52096-3, , THYR #### [facility] ([id number]) [address], [address] [place] [address] Lipid 1996 panelon 5 Cholesterol [Mass/Vol] 100 mg/dL Low 150-200 [facility] Comment on above: Performed By: #### Thuy MAGDALENO, [facility], 04481-9, , THYR #### [facility] ([id number]) [address], [address] [place] [address] Cholesterol in HDL [Mass/Vol] 37 mg/dL Low >39 [facility] Comment on above: Result Comment: HDL <40 mg/dL - High Risk HDL > or = 40mg/dL- Desirable HDL >60 mg/dL - Negative Risk Performed By: #### Thuy BC, [facility], 97965-1, , THYR #### [facility] ([id number]) [address], [address] [place] [address] Cholesterol in LDL [Mass/Vol] 38 mg/dL Normal <130 [facility] Comment on above: Result Comment: LDL <100 mg/dL - Desirable LDL >160 mg/dL - High Risk Performed By: #### Thuy MAGDALENO, ELIDA, , , THYR #### [facility] ([id number]) [address], [address] [place] [address] Cholesterol in VLDL [Mass/Vol] 25 mg/dL Normal 0-30 [facility] Comment on above: Performed By: #### Thuy MAGDALENO, CMP, 49392-4, , THYR #### [facility] ([id number]) [address], [address] [place] [address] CHOLESTEROL:HDL 2.7 Normal 1.0-5.0 [facility] Comment on above: Performed By: #### Thuy MAGDALENO, ELIDA, 69712-4, , THYR #### [facility] ([id number]) [address], [address] [place] [address] Triglyceride [Mass/Vol] 127 mg/dL Normal 27-150 [facility] Comment on above: Performed By: #### Thuy MAGDALENO, ELIDA, , , THYR #### [facility] ([id number]) [address], [address] [place] [address] MAGNESIUMon 08-25-2024 Magnesium [Mass/Vol] 2.4 mg/dL Normal 1.8-2.6 [facility] Comment on above: Performed By: #### Thuy MAGDALENO, CMP, 38824-4, , THYR #### [facility] ([id number]) [address], [address] [place] [address] THYROID PROFILEon 08-25-2024 Free T4 [Mass/Vol] 1.29 ng/dL Normal 0.61-1.60 [facility] Comment on above: Performed By: #### Thuy BC, CMP, 58782-3, , THYR #### [facility] ([id number]) [address], [address] [place] [address] TSH 3.65 uIU/mL Normal 0.49-4.67 [facility] Comment on above: Performed By: #### C BC, CMP, 11648-4, , THYR #### [facility] ([id number]) [address], [address] [place] [address] POCT Protime / INRon 025 INR Coag (PPP) [Relative time] 3.7 {INR} Abnormal 0.8 - 1.2 [facility] Interpretation and review of laboratory results Abnormal [facility] POCT Protime / INRon 025 INR Coag (PPP) [Relative time] 3.5 {INR} Abnormal 0.8 - 1.2 [facility] Interpretation and review of laboratory results Abnormal [facility] Erythrocyte distribution wid th Auto (RBC) [Ratio]on 08-04-2024 Erythrocyte distribution width (RBC) [Ratio] Erythrocyte distribution width [Ratio] by Automated count High 11.0-15.0 [facility] Estimated glomerular filtrat ion rate (GFR) non- Americanon 08-04-2024 GFR/1.73 sq M.predicted among non-blacks MDRD (S/P/Bld) [Vol rate/Area] Estimated glomerular filtration rate (GFR) non- Low >=60 mL/min/1.7 3m 2 [facility] Hematocrit Auto (Bld) [Volum e fraction]on 08-04-2024 Hematocrit (Bld) [Volume fraction] Hematocrit [Volume Fraction] of Blood by Automated count Low 36.0-48.0 [facility] Hemoglobin [Mass/volume] in Bloodon 08-04-2024 Hemoglobin (Bld) [Mass/Vol] Hemoglobin [Mass/volume] in Blood Low 12.0-16.0 [facility] Laboratory - Chemistry and C hemistry - challengeon 08-04-2024 Albumin [Mass/Vol] 3.2 g/dL Low 3.4-5.0 [facility] Calcium [Mass/Vol] 8.9 mg/dL 8.5-10.1 [facility] Chloride [Moles/Vol] 105 mmol/L 98-107 [facility] CO2 [Moles/Vol] 29.7 mmol/L 21.0-32.0 [facility] Creatinine [Mass/Vol] 2.73 mg/dL High 0.55-1.02 [facility] GFR/1.73 sq M.predicted MDRD (S/P/Bld) [Vol rate/Area] 20 mL/min/{1.73_m2} Low >=60 mL/min/1.7 3m 2 [facility] Glucose [Mass/Vol] 122 mg/dL High 74-106 [facility] Potassium [Moles/Vol] 4.6 mmol/L 3.5-5.1 [facility] Sodium [Moles/Vol] 141 mmol/L 136-145 [facility] Urea nitrogen [Mass/Vol] 43.0 mg/dL High 7.0-18.0 [facility] Urea nitrogen/Creatinine [Mass ratio] 15.8 mg/mg [facility] Leukocytes [#/volume] correc katy for nucleated erythrocytes in Blood by Automated counon 08-04-2024 WBC corrected for nucl RBC Auto (Bld) [#/Vol] Leukocytes [#/volume] corrected for nucleated erythrocytes in Blood by Automated coun 4.0-11.0 [facility] MCH Auto (RBC) [Entitic mass ]on 08-04-2024 MCH (RBC) [Entitic mass] MCH [Entitic mass] by Automated count 26.7-34.0 [facility] MCHC Auto (RBC) [Mass/Vol]on 08-04-2024 MCHC (RBC) [Mass/Vol] MCHC [Mass/volume] by Automated count 29.9-35.2 [facility] MCV Auto (RBC) [Entitic vol] on 08-04-2024 MCV (RBC) [Entitic vol] MCV [Entitic volume] by Automated count 81.0-99.0 [facility] No Panel Informationon 08-04 Phosphorus Level 3.6 mg/dL 2.6-4.7 [facility] Platelet mean volume Auto (B ld) [Entitic vol]on 08-04-2024 Platelet mean volume (Bld) [Entitic vol] Platelet mean volume [Entitic volume] in Blood by Automated count 9.5-13.5 [facility] Platelets Auto (Bld) [#/Vol] on 08-04-2024 Platelets (Bld) [#/Vol] Platelets [#/volume] in Blood by Automated count 150-450 [facility] RBC Auto (Bld) [#/Vol]on RBC (Bld) [#/Vol] Erythrocytes [#/volu me] in Blood by Automated count Low 4.20-5.40 [facility] Serum or plasma anion gap de terminationon 08-04-2024 Anion gap [Moles/Vol] Serum or plasma an ion gap determination [facility] Erythrocyte distribution wid th Auto (RBC) [Ratio]on 07-20-2024 Erythrocyte distribution width (RBC) [Ratio] Erythrocyte distribution width [Ratio] by Automated count High 11.0-15.0 [facility] Estimated glomerular filtrat ion rate (GFR) non- Americanon 07-20-2024 GFR/1.73 sq M.predicted among non-blacks MDRD (S/P/Bld) [Vol rate/Area] Estimated glomerular filtration rate (GFR) non- Low >=60 mL/min/1.7 3m 2 [facility] Hematocrit Auto (Bld) [Volum e fraction]on 07-20-2024 Hematocrit (Bld) [Volume fraction] Hematocrit [Volume Fraction] of Blood by Automated count Low 36.0-48.0 [facility] Hemoglobin [Mass/volume] in Bloodon 07-20-2024 Hemoglobin (Bld) [Mass/Vol] Hemoglobin [Mass/volume] in Blood Low 12.0-16.0 [facility] Iron binding capacity [Mass/ volume] in Serum or Plasmaon 07-20-2024 Iron binding capacity [Mass/Vol] Iron binding capacity [Mass/volume] in Serum or Plasma Low 250.0-450. 0 [facility] Iron saturation [Mass Fracti on] in Serum or Plasmaon 07-20-2024 Iron saturation [Mass fraction] Iron saturation [Mass Fraction] in Serum or Plasma [facility] Laboratory - Chemistry and C hemistry - challengeon 07-20-2024 Albumin [Mass/Vol] 3.1 g/dL Low 3.4-5.0 [facility] Calcium [Mass/Vol] 8.5 mg/dL 8.5-10.1 [facility] Chloride [Moles/Vol] 107 mmol/L 98-107 [facility] CO2 [Moles/Vol] 33.3 mmol/L High 21.0-32.0 [facility] Creatinine [Mass/Vol] 2.88 mg/dL High 0.55-1.02 [facility] Ferritin [Mass/Vol] 688.0 ng/mL High 8.0-252.0 [facility] GFR/1.73 sq M.predicted MDRD (S/P/Bld) [Vol rate/Area] 19 mL/min/{1.73_m2} Low >=60 mL/min/1.7 3m 2 [facility] Glucose [Mass/Vol] 124 mg/dL High 74-106 [facility] Iron [Mass/Vol] 75.0 ug/dL 50.0-170.0 [facility] Potassium [Moles/Vol] 4.4 mmol/L 3.5-5.1 [facility] Sodium [Moles/Vol] 144 mmol/L 136-145 [facility] Urea nitrogen [Mass/Vol] 33.0 mg/dL High 7.0-18.0 [facility] Urea nitrogen/Creatinine [Mass ratio] 11.5 mg/mg [facility] Leukocytes [#/volume] correc katy for nucleated erythrocytes in Blood by Automated counon 07-20-2024 WBC corrected for nucl RBC Auto (Bld) [#/Vol] Leukocytes [#/volume] corrected for nucleated erythrocytes in Blood by Automated coun 4.0-11.0 [facility] MCH Auto (RBC) [Entitic mass ]on 07-20-2024 MCH (RBC) [Entitic mass] MCH [Entitic mass] by Automated count 26.7-34.0 [facility] MCHC Auto (RBC) [Mass/Vol]on 07-20-2024 MCHC (RBC) [Mass/Vol] MCHC [Mass/volume] by Automated count Low 29.9-35.2 [facility] MCV Auto (RBC) [Entitic vol] on 07-20-2024 MCV (RBC) [Entitic vol] MCV [Entitic volume] by Automated count High 81.0-99.0 [facility] No Panel Informationon 07-20 Parathyroid Hormone (Intact) 101 pg/mL Abnormal 15-65 [facility] Comment on above: Performed at: [employer] [place] [id number] Director: Deshaun Hunter PhD, Phone: [phone] Phosphorus Level 4.0 mg/dL 2.6-4.7 [facility] Platelet mean volume Auto (B ld) [Entitic vol]on 07-20-2024 Platelet mean volume (Bld) [Entitic vol] Platelet mean volume [Entitic volume] in Blood by Automated count 9.5-13.5 [facility] Platelets Auto (Bld) [#/Vol] on 07-20-2024 Platelets (Bld) [#/Vol] Platelets [#/volume] in Blood by Automated count 150-450 [facility] RBC Auto (Bld) [#/Vol]on RBC (Bld) [#/Vol] Erythrocytes [#/volu me] in Blood by Automated count Low 4.20-5.40 [facility] Serum or plasma anion gap de terminationon 07-20-2024 Anion gap [Moles/Vol] Serum or plasma an ion gap determination [facility] POCT Protime / INRon 025 INR Coag (PPP) [Relative time] 3.1 {INR} Abnormal 0.8 - 1.2 [facility] Interpretation and review of laboratory results Abnormal [facility] POCT Protime / INRon 025 INR Coag (PPP) [Relative time] 2.6 {INR} Abnormal 0.8 - 1.2 [facility] Interpretation and review of [facility] results [facility] (Bld) [Mass fract ion]on 06-14-2024 HbA1c (Bld) [Mass fraction] Hemoglobin A1c/Hemoglobin.total in Blood by HPLC [facility] No Panel Informationon 06-14 Bedside Glucose 114 [facility] Erythrocyte distribution wid th Auto (RBC) [Ratio]on 06-10-2024 Erythrocyte distribution width (RBC) [Ratio] Erythrocyte distribution width [Ratio] by Automated count 11.0-15.0 [facility] Estimated glomerular filtrat ion rate (GFR) non- Americanon 06-10-2024 GFR/1.73 sq M.predicted among non-blacks MDRD (S/P/Bld) [Vol rate/Area] Estimated glomerular filtration rate (GFR) non- Low >=60 mL/min/1.7 3m 2 [facility] Hematocrit Auto (Bld) [Volum e fraction]on 06-10-2024 Hematocrit (Bld) [Volume fraction] Hematocrit [Volume Fraction] of Blood by Automated count Low 36.0-48.0 [facility] Hemoglobin [Mass/volume] in Bloodon 06-10-2024 Hemoglobin (Bld) [Mass/Vol] Hemoglobin [Mass/volume] in Blood Low 12.0-16.0 [facility] Iron binding capacity [Mass/ volume] in Serum or Plasmaon 06-10-2024 Iron binding capacity [Mass/Vol] Iron binding capacity [Mass/volume] in Serum or Plasma Low 250.0-450. 0 [facility] Iron saturation [Mass Fracti on] in Serum or Plasmaon 06-10-2024 Iron saturation [Mass fraction] Iron saturation [Mass Fraction] in Serum or Plasma [facility] Laboratory - Chemistry and C hemistry - challengeon 06-10-2024 Albumin [Mass/Vol] 2.9 g/dL [facility] Calcium [Mass/Vol] 8.8 mg/dL [facility] Chloride [Moles/Vol] 106 mmol/L [facility] CO2 [Moles/Vol] 35.1 mmol/L [facility] Creatinine [Mass/Vol] 2.18 mg/dL [facility] Glucose [Mass/Vol] 111 mg/dL [facility] Potassium [Moles/Vol] 3.7 mmol/L [facility] Sodium [Moles/Vol] 146 mmol/L [facility] Urea nitrogen [Mass/Vol] 38.0 mg/dL [facility] Albumin [Mass/Vol] 2.9 g/dL Low 3.4-5.0 [facility] Calcium [Mass/Vol] 8.8 mg/dL 8.5-10.1 [facility] Chloride [Moles/Vol] 106 mmol/L 98-107 [facility] CO2 [Moles/Vol] 35.1 mmol/L High 21.0-32.0 [facility] Creatinine [Mass/Vol] 2.18 mg/dL High 0.55-1.02 [facility] Ferritin [Mass/Vol] 49.0 ng/mL 8.0-252.0 [facility] GFR/1.73 sq M.predicted MDRD (S/P/Bld) [Vol rate/Area] 26 mL/min/{1.73_m2} Low >=60 mL/min/1.7 3m 2 [facility] Glucose [Mass/Vol] 111 mg/dL High 74-106 [facility] Iron [Mass/Vol] 48.0 ug/dL Low 50.0-170.0 [facility] Potassium [Moles/Vol] 3.7 mmol/L 3.5-5.1 [facility] Sodium [Moles/Vol] 146 mmol/L High 136-145 [facility] Urea nitrogen [Mass/Vol] 38.0 mg/dL High 7.0-18.0 [facility] Urea nitrogen/Creatinine [Mass ratio] 17.4 mg/mg [facility] Leukocytes [#/volume] correc katy for nucleated erythrocytes in Blood by Automated counon 06-10-2024 WBC corrected for nucl RBC Auto (Bld) [#/Vol] Leukocytes [#/volume] corrected for nucleated erythrocytes in Blood by Automated coun 4.0-11.0 [facility] MCH Auto (RBC) [Entitic mass ]on 06-10-2024 MCH (RBC) [Entitic mass] MCH [Entitic mass] by Automated count 26.7-34.0 [facility] MCHC Auto (RBC) [Mass/Vol]on 06-10-2024 MCHC (RBC) [Mass/Vol] MCHC [Mass/volume] by Automated count Low 29.9-35.2 [facility] MCV Auto (RBC) [Entitic vol] on 06-10-2024 MCV (RBC) [Entitic vol] MCV [Entitic volume] by Automated count 81.0-99.0 [facility] No Panel Informationon 06-10 Estimated GFR (Non- 22 mL/min [facility] Phosphorus Level 3.6 mg/dL [facility] Phosphorus Level 3.6 mg/dL 2.6-4.7 [facility] Platelet mean volume Auto (B ld) [Entitic vol]on 06-10-2024 Platelet mean volume (Bld) [Entitic vol] Platelet mean volume [Entitic volume] in Blood by Automated count 9.5-13.5 [facility] Platelets Auto (Bld) [#/Vol] on 06-10-2024 Platelets (Bld) [#/Vol] Platelets [#/volume] in Blood by Automated count 150-450 [facility] RBC Auto (Bld) [#/Vol]on RBC (Bld) [#/Vol] Erythrocytes [#/volu me] in Blood by Automated count Low 4.20-5.40 [facility] Serum or plasma anion gap de terminationon 06-10-2024 Anion gap [Moles/Vol] Serum or plasma an ion gap determination [facility] Erythrocyte distribution wid th Auto (RBC) [Ratio]on 05-25-2024 Erythrocyte distribution width (RBC) [Ratio] Erythrocyte distribution width [Ratio] by Automated count 11.0-15.0 [facility] Hematocrit Auto (Bld) [Volum e fraction]on 05-25-2024 Hematocrit (Bld) [Volume fraction] Hematocrit [Volume Fraction] of Blood by Automated count Low 36.0-48.0 [facility] Hemoglobin [Mass/volume] in Bloodon 05-25-2024 Hemoglobin (Bld) [Mass/Vol] Hemoglobin [Mass/volume] in Blood Low 12.0-16.0 [facility] Leukocytes [#/volume] correc katy for nucleated erythrocytes in Blood by Automated counon 05-25-2024 WBC corrected for nucl RBC Auto (Bld) [#/Vol] Leukocytes [#/volume] corrected for nucleated erythrocytes in Blood by Automated coun 4.0-11.0 [facility] MCH Auto (RBC) [Entitic mass ]on 05-25-2024 MCH (RBC) [Entitic mass] MCH [Entitic mass] by Automated count 26.7-34.0 [facility] MCHC Auto (RBC) [Mass/Vol]on 05-25-2024 MCHC (RBC) [Mass/Vol] MCHC [Mass/volume] by Automated count Low 29.9-35.2 [facility] MCV Auto (RBC) [Entitic vol] on 05-25-2024 MCV (RBC) [Entitic vol] MCV [Entitic volume] by Automated count High 81.0-99.0 [facility] Platelet mean volume Auto (B ld) [Entitic vol]on 05-25-2024 Platelet mean volume (Bld) [Entitic vol] Platelet mean volume [Entitic volume] in Blood by Automated count 9.5-13.5 [facility] Platelets Auto (Bld) [#/Vol] on 05-25-2024 Platelets (Bld) [#/Vol] Platelets [#/volume] in Blood by Automated count 150-450 [facility] RBC Auto (Bld) [#/Vol]on RBC (Bld) [#/Vol] Erythrocytes [#/volu me] in Blood by Automated count Low 4.20-5.40 [facility] POCT Protime / INRon 024 INR Coag (PPP) [Relative time] 2.3 {INR} Abnormal 0.8 - 1.2 [facility] Interpretation and review of laboratory results [facility] Erythrocyte distribution wid th Auto (RBC) [Ratio]on 04-28-2024 Erythrocyte distribution width (RBC) [Ratio] Erythrocyte distribution width [Ratio] by Automated count 11.0-15.0 [facility] Hematocrit Auto (Bld) [Volum e fraction]on 04-28-2024 Hematocrit (Bld) [Volume fraction] Hematocrit [Volume Fraction] of Blood by Automated count Low 36.0-48.0 [facility] Hemoglobin [Mass/volume] in Bloodon 04-28-2024 Hemoglobin (Bld) [Mass/Vol] Hemoglobin [Mass/volume] in Blood Low 12.0-16.0 [facility] Iron binding capacity [Mass/ volume] in Serum or Plasmaon 04-28-2024 Iron binding capacity [Mass/Vol] Iron binding capacity [Mass/volume] in Serum or Plasma 250.0-450. 0 [facility] Iron saturation [Mass Fracti on] in Serum or Plasmaon 04-28-2024 Iron saturation [Mass fraction] Iron saturation [Mass Fraction] in Serum or Plasma [facility] Laboratory - Chemistry and C hemistry - challengeon 04-28-2024 Cobalamin (Vitamin B12) [Mass/Vol] 1140 pg/mL [id number] [facility] Comment on above: Performed at: [place] [id number] Director: Deshaun Hunter PhD, Phone: [phone] Ferritin [Mass/Vol] 58.0 ng/mL 8.0-252.0 [facility] Iron [Mass/Vol] 49.0 ug/dL Low 50.0-170.0 [facility] Leukocytes [#/volume] correc katy for nucleated erythrocytes in Blood by Automated counon 04-28-2024 WBC corrected for nucl RBC Auto (Bld) [#/Vol] Leukocytes [#/volume] corrected for nucleated erythrocytes in Blood by Automated coun 4.0-11.0 [facility] MCH Auto (RBC) [Entitic mass ]on 04-28-2024 MCH (RBC) [Entitic mass] MCH [Entitic mass] by Automated count 26.7-34.0 [facility] MCHC Auto (RBC) [Mass/Vol]on 04-28-2024 MCHC (RBC) [Mass/Vol] MCHC [Mass/volume] by Automated count Low 29.9-35.2 [facility] MCV Auto (RBC) [Entitic vol] on 04-28-2024 MCV (RBC) [Entitic vol] MCV [Entitic volume] by Automated count High 81.0-99.0 [facility] No Panel Informationon 04-28 Folate 13.00 ng/mL 8.60-58.90 [facility] Platelet mean volume Auto (B ld) [Entitic vol]on 04-28-2024 Platelet mean volume (Bld) [Entitic vol] Platelet mean volume [Entitic volume] in Blood by Automated count 9.5-13.5 [facility] Platelets Auto (Bld) [#/Vol] on 04-28-2024 Platelets (Bld) [#/Vol] Platelets [#/volume] in Blood by Automated count 150-450 [facility] RBC Auto (Bld) [#/Vol]on RBC (Bld) [#/Vol] Erythrocytes [#/volu me] in Blood by Automated count Low 4.20-5.40 [facility] Erythrocyte distribution wid th Auto (RBC) [Ratio]on 04-13-2024 Erythrocyte distribution width (RBC) [Ratio] Erythrocyte distribution width [Ratio] by Automated count 11.0-15.0 [facility] Estimated glomerular filtrat ion rate (GFR) non- Americanon 04-13-2024 GFR/1.73 sq M.predicted among non-blacks MDRD (S/P/Bld) [Vol rate/Area] Estimated glomerular filtration rate (GFR) non- Low >=60 mL/min/1.7 3m 2 [facility] Hematocrit Auto (Bld) [Volum e fraction]on 04-13-2024 Hematocrit (Bld) [Volume fraction] Hematocrit [Volume Fraction] of Blood by Automated count Low 36.0-48.0 [facility] Hemoglobin [Mass/volume] in Bloodon 04-13-2024 Hemoglobin (Bld) [Mass/Vol] Hemoglobin [Mass/volume] in Blood Low 12.0-16.0 [facility] Laboratory - Chemistry and C hemistry - challengeon 04-13-2024 Albumin [Mass/Vol] 2.9 g/dL Low 3.4-5.0 [facility] Calcium [Mass/Vol] 9.5 mg/dL 8.5-10.1 [facility] Chloride [Moles/Vol] 106 mmol/L 98-107 [facility] CO2 [Moles/Vol] 32.0 mmol/L 21.0-32.0 [facility] Creatinine [Mass/Vol] 2.22 mg/dL High 0.55-1.02 [facility] GFR/1.73 sq M.predicted MDRD (S/P/Bld) [Vol rate/Area] 26 mL/min/{1.73_m2} Low >=60 mL/min/1.7 3m 2 [facility] Glucose [Mass/Vol] 135 mg/dL High 74-106 [facility] Potassium [Moles/Vol] 4.4 mmol/L 3.5-5.1 [facility] Sodium [Moles/Vol] 146 mmol/L High 136-145 [facility] Urea nitrogen [Mass/Vol] 44.0 mg/dL High 7.0-18.0 [facility] Urea nitrogen/Creatinine [Mass ratio] 19.8 mg/mg [facility] Leukocytes [#/volume] correc katy for nucleated erythrocytes in Blood by Automated counon 04-13-2024 WBC corrected for nucl RBC Auto (Bld) [#/Vol] Leukocytes [#/volume] corrected for nucleated erythrocytes in Blood by Automated coun 4.0-11.0 [facility] MCH Auto (RBC) [Entitic mass ]on 04-13-2024 MCH (RBC) [Entitic mass] MCH [Entitic mass] by Automated count 26.7-34.0 [facility] MCHC Auto (RBC) [Mass/Vol]on 04-13-2024 MCHC (RBC) [Mass/Vol] MCHC [Mass/volume] by Automated count Low 29.9-35.2 [facility] MCV Auto (RBC) [Entitic vol] on 04-13-2024 MCV (RBC) [Entitic vol] MCV [Entitic volume] by Automated count High 81.0-99.0 [facility] No Panel Informationon 04-13 Phosphorus Level 3.7 mg/dL 2.6-4.7 [facility] Platelet mean volume Auto (B ld) [Entitic vol]on 04-13-2024 Platelet mean volume (Bld) [Entitic vol] Platelet mean volume [Entitic volume] in Blood by Automated count 9.5-13.5 [facility] Platelets Auto (Bld) [#/Vol] on 04-13-2024 Platelets (Bld) [#/Vol] Platelets [#/volume] in Blood by Automated count 150-450 [facility] RBC Auto (Bld) [#/Vol]on RBC (Bld) [#/Vol] Erythrocytes [#/volu me] in Blood by Automated count Low 4.20-5.40 [facility] Serum or plasma anion gap de terminationon 04-13-2024 Anion gap [Moles/Vol] Serum or plasma an ion gap determination [facility] Erythrocyte distribution wid th Auto (RBC) [Ratio]on 03-17-2024 Erythrocyte distribution width (RBC) [Ratio] 14.8 % 11.0-15.0 [facility] Erythrocyte distribution width (RBC) [Ratio] Erythrocyte distribution width [Ratio] by Automated count 11.0-15.0 [facility] Hematocrit Auto (Bld) [Volum e fraction]on 03-17-2024 Hematocrit (Bld) [Volume fraction] 32.8 % Low 36.0-48.0 [facility] Hematocrit (Bld) [Volume fraction] Hematocrit [Volume Fraction] of Blood by Automated count Low 36.0-48.0 [facility] Hemoglobin [Mass/volume] in Bloodon 03-17-2024 Hemoglobin (Bld) [Mass/Vol] 9.8 g/dL Low 12.0-16.0 [facility] Hemoglobin (Bld) [Mass/Vol] Hemoglobin [Mass/volume] in Blood Low 12.0-16.0 [facility] Iron binding capacity [Mass/ volume] in Serum or Plasmaon 03-17-2024 Iron binding capacity [Mass/Vol] 225.0 ug/dL Low 250.0-450. 0 [facility] Iron binding capacity [Mass/Vol] Iron binding capacity [Mass/volume] in Serum or Plasma Low 250.0-450. 0 [facility] Iron saturation [Mass Fracti on] in Serum or Plasmaon 03-17-2024 Iron saturation [Mass fraction] 22.7 % [facility] Iron saturation [Mass fraction] Iron saturation [Mass Fraction] in Serum or Plasma [facility] Laboratory - Chemistry and C hemistry - challengeon 03-17-2024 Cobalamin (Vitamin B12) [Mass/Vol] 1103 pg/mL [id number] [facility] Comment on above: Performed at: [address] [id number] Director: Deshaun Hunter PhD, Phone: [phone] Ferritin [Mass/Vol] 65.0 ng/mL 8.0-252.0 [facility] Iron [Mass/Vol] 51.0 ug/dL 50.0-170.0 [facility] Magnesium [Mass/Vol] 2.2 mg/dL 1.8-2.4 [facility] Leukocytes [#/volume] correc katy for nucleated erythrocytes in Blood by Automated counon 03-17-2024 WBC corrected for nucl RBC Auto (Bld) [#/Vol] 6.3 10 3/uL 4.0-11.0 [facility] WBC corrected for nucl RBC Auto (Bld) [#/Vol] Leukocytes [#/volume] corrected for nucleated erythrocytes in Blood by Automated coun 4.0-11.0 [facility] MCH Auto (RBC) [Entitic mass ]on 03-17-2024 MCH (RBC) [Entitic mass] 29.5 pg 26.7-34.0 [facility] MCH (RBC) [Entitic mass] MCH [Entitic mass] by Automated count 26.7-34.0 [facility] MCHC Auto (RBC) [Mass/Vol]on 03-17-2024 MCHC (RBC) [Mass/Vol] 29.9 g/dL 29.9-35.2 [facility] MCHC (RBC) [Mass/Vol] MCHC [Mass/volume] by Automated count 29.9-35.2 [facility] MCV Auto (RBC) [Entitic vol] on 03-17-2024 MCV (RBC) [Entitic vol] 98.8 fL 81.0-99.0 [facility] MCV (RBC) [Entitic vol] MCV [Entitic volume] by Automated count 81.0-99.0 [facility] No Panel Informationon 03-17 Folate 11.70 ng/mL 8.60-58.90 [facility] Parathyroid Hormone (Intact) 78 pg/mL Abnormal 15-65 [facility] Comment on above: Performed at: [place] [id number] Director: Deshaun Hunter PhD, Phone: [phone] Platelet mean volume Auto (B ld) [Entitic vol]on 03-17-2024 Platelet mean volume (Bld) [Entitic vol] 10.1 fL 9.5-13.5 [facility] Platelet mean volume (Bld) [Entitic vol] Platelet mean volume [Entitic volume] in Blood by Automated count .-13.5 [facility] Platelets Auto (Bld) [#/Vol] on 03-17-2024 Platelets (Bld) [#/Vol] 179 10 3/uL 150-450 [facility] Platelets (Bld) [#/Vol] Platelets [#/volume] in Blood by Automated count 150-450 [facility] RBC Auto (Bld) [#/Vol]on RBC (Bld) [#/Vol] 3.32 10 6/uL Low 4.20-5.40 [facility] RBC (Bld) [#/Vol] Erythrocytes [#/volu me] in Blood by Automated count Low 4.20-5.40 [facility] Erythrocyte distribution wid th Auto (RBC) [Ratio]on 02-23-2024 Erythrocyte distribution width (RBC) [Ratio] 15.1 % High 11.0-15.0 [facility] Erythrocyte distribution width (RBC) [Ratio] Erythrocyte distribution width [Ratio] by Automated count High 11.0-15.0 [facility] Estimated glomerular filtrat ion rate (GFR) non- Americanon 02-23-2024 GFR/1.73 sq M.predicted among non-blacks MDRD (S/P/Bld) [Vol rate/Area] 20 mL/min/{1.73_m2} Low >=60 mL/min/1.7 2 [facility] GFR/1.73 sq M.predicted among non-blacks MDRD (S/P/Bld) [Vol rate/Area] Estimated glomerular filtration rate (GFR) non- Low >=60 mL/min/1.[address] [place] [address] Hematocrit Auto (Bld) [Volum e fraction]on 02-23-2024 Hematocrit (Bld) [Volume fraction] 32.8 % Low 36.0-48.0 [facility] Hematocrit (Bld) [Volume fraction] Hematocrit [Volume Fraction] of Blood by Automated count Low 36.0-48.0 [facility] Hemoglobin [Mass/volume] in Bloodon 02-23-2024 Hemoglobin (Bld) [Mass/Vol] 9.7 g/dL Low 12.0-16.0 [facility] Hemoglobin (Bld) [Mass/Vol] Hemoglobin [Mass/volume] in Blood Low 12.0-16.0 [facility] Laboratory - Chemistry and C hemistry - challengeon 02-23-2024 Albumin [Mass/Vol] 3.0 g/dL Low 3.4-5.0 [facility] Calcium [Mass/Vol] 8.9 mg/dL 8.5-10.1 [facility] Chloride [Moles/Vol] 107 mmol/L 98-107 [facility] CO2 [Moles/Vol] 28.7 mmol/L 21.0-32.0 [facility] Creatinine [Mass/Vol] 2.30 mg/dL High 0.55-1.02 [facility] GFR/1.73 sq M.predicted MDRD (S/P/Bld) [Vol rate/Area] 25 mL/min/{1.73_m2} Low >=60 mL/min/1.7 2 [facility] Glucose [Mass/Vol] 97 mg/dL 74-106 [facility] Potassium [Moles/Vol] 4.0 mmol/L 3.5-5.1 [facility] Sodium [Moles/Vol] 144 mmol/L 136-145 [facility] Urea nitrogen [Mass/Vol] 50.0 mg/dL High 7.0-18.0 [facility] Urea nitrogen/Creatinine [Mass ratio] 21.7 mg/mg [facility] Leukocytes [#/volume] correc katy for nucleated erythrocytes in Blood by Automated counon 02-23-2024 WBC corrected for nucl RBC Auto (Bld) [#/Vol] 4.8 10 3/uL 4.0-11.0 [facility] WBC corrected for nucl RBC Auto (Bld) [#/Vol] Leukocytes [#/volume] corrected for nucleated erythrocytes in Blood by Automated coun 4.0-11.0 [facility] MCH Auto (RBC) [Entitic mass ]on 02-23-2024 MCH (RBC) [Entitic mass] 29.4 pg 26.7-34.0 [facility] MCH (RBC) [Entitic mass] MCH [Entitic mass] by Automated count 26.7-34.0 [facility] MCHC Auto (RBC) [Mass/Vol]on 02-23-2024 MCHC (RBC) [Mass/Vol] 29.6 g/dL Low 29.9-35.2 [facility] MCHC (RBC) [Mass/Vol] MCHC [Mass/volume] by Automated count Low 29.9-35.2 [facility] MCV Auto (RBC) [Entitic vol] on 02-23-2024 MCV (RBC) [Entitic vol] 99.4 fL High 81.0-99.0 [facility] MCV (RBC) [Entitic vol] MCV [Entitic volume] by Automated count High 81.0-99.0 [facility] No Panel Informationon 02-22 Phosphorus Level 3.6 mg/dL 2.6-4.7 [facility] Platelet mean volume Auto (B ld) [Entitic vol]on 02-23-2024 Platelet mean volume (Bld) [Entitic vol] 9.7 fL 9.5-13.5 [facility] Platelet mean volume (Bld) [Entitic vol] Platelet mean volume [Entitic volume] in Blood by Automated count 9.5-13.5 [facility] Platelets Auto (Bld) [#/Vol] on 02-23-2024 Platelets (Bld) [#/Vol] 170 10 3/uL 150-450 [facility] Platelets (Bld) [#/Vol] Platelets [#/volume] in Blood by Automated count 150-450 [facility] RBC Auto (Bld) [#/Vol]on RBC (Bld) [#/Vol] 3.30 10 6/uL Low 4.20-5.40 [facility] RBC (Bld) [#/Vol] Erythrocytes [#/volu me] in Blood by Automated count Low 4.20-5.40 [facility] Serum or plasma anion gap de terminationon 02-23-2024 Anion gap [Moles/Vol] 12.3 mmol/L [facility] [place] Anion gap [Moles/Vol] Serum or plasma an ion gap determination [facility] Erythrocyte distribution wid th Auto (RBC) [Ratio]on 02-03-2024 Erythrocyte distribution width (RBC) [Ratio] 14.4 % 11.0-15.0 [facility] Erythrocyte distribution width (RBC) [Ratio] Erythrocyte distribution width [Ratio] by Automated count 11.0-15.0 [facility] Estimated glomerular filtrat ion rate (GFR) non- Americanon 02-03-2024 GFR/1.73 sq M.predicted among non-blacks MDRD (S/P/Bld) [Vol rate/Area] 19 mL/min/{1.73_m2} Low >=60 [facility] GFR/1.73 sq M.predicted among non-blacks MDRD (S/P/Bld) [Vol rate/Area] Estimated glomerular filtration rate (GFR) non- Low >=60 [facility] Hematocrit Auto (Bld) [Volum e fraction]on 02-03-2024 Hematocrit (Bld) [Volume fraction] 33.5 % Low 36.0-48.0 [facility] Hematocrit (Bld) [Volume fraction] Hematocrit [Volume Fraction] of Blood by Automated count Low 36.0-48.0 [facility] Hemoglobin [Mass/volume] in Bloodon 02-03-2024 Hemoglobin (Bld) [Mass/Vol] 10.0 g/dL Low 12.0-16.0 [facility] Hemoglobin (Bld) [Mass/Vol] Hemoglobin [Mass/volume] in Blood Low 12.0-16.0 [facility] Laboratory - Chemistry and C hemistry - challengeon 02-03-2024 Albumin [Mass/Vol] 3.1 g/dL Low 3.4-5.0 [facility] Calcium [Mass/Vol] 8.8 mg/dL 8.5-10.1 [facility] Chloride [Moles/Vol] 103 mmol/L 98-107 [facility] CO2 [Moles/Vol] 32.9 mmol/L High 21.0-32.0 [facility] Creatinine [Mass/Vol] 2.48 mg/dL High 0.55-1.02 [facility] GFR/1.73 sq M.predicted MDRD (S/P/Bld) [Vol rate/Area] 23 mL/min/{1.73_m2} Low >=60 [facility] Glucose [Mass/Vol] 101 mg/dL 74-106 [facility] Potassium [Moles/Vol] 4.6 mmol/L 3.5-5.1 [facility] Sodium [Moles/Vol] 141 mmol/L 136-145 [facility] Urea nitrogen [Mass/Vol] 51.0 mg/dL High 7.0-18.0 [facility] Urea nitrogen/Creatinine [Mass ratio] 20.6 mg/mg [facility] Leukocytes [#/volume] correc katy for nucleated erythrocytes in Blood by Automated counon 02-03-2024 WBC corrected for nucl RBC Auto (Bld) [#/Vol] 6.3 10 3/uL 4.0-11.0 [facility] WBC corrected for nucl RBC Auto (Bld) [#/Vol] Leukocytes [#/volume] corrected for nucleated erythrocytes in Blood by Automated coun 4.0-11.0 [facility] MCH Auto (RBC) [Entitic mass ]on 02-03-2024 MCH (RBC) [Entitic mass] 29.4 pg 26.7-34.0 [facility] MCH (RBC) [Entitic mass] MCH [Entitic mass] by Automated count 26.7-34.0 [facility] MCHC Auto (RBC) [Mass/Vol]on 02-03-2024 MCHC (RBC) [Mass/Vol] 29.9 g/dL 29.9-35.2 [facility] MCHC (RBC) [Mass/Vol] MCHC [Mass/volume] by Automated count 29.9-35.2 [facility] MCV Auto (RBC) [Entitic vol] on 02-03-2024 MCV (RBC) [Entitic vol] 98.5 fL 81.0-99.0 [facility] MCV (RBC) [Entitic vol] MCV [Entitic volume] by Automated count 81.0-99.0 [facility] No Panel Informationon 02-02 Phosphorus Level 4.7 mg/dL 2.6-4.7 [facility] Platelet mean volume Auto (B ld) [Entitic vol]on 02-03-2024 Platelet mean volume (Bld) [Entitic vol] 9.6 fL 9.5-13.5 [facility] Platelet mean volume (Bld) [Entitic vol] Platelet mean volume [Entitic volume] in Blood by Automated count 9.5-13.5 [facility] Platelets Auto (Bld) [#/Vol] on 02-03-2024 Platelets (Bld) [#/Vol] 227 10 3/uL 150-450 [facility] Platelets (Bld) [#/Vol] Platelets [#/volume] in Blood by Automated count 150-450 [facility] RBC Auto (Bld) [#/Vol]on RBC (Bld) [#/Vol] 3.40 10 6/uL Low 4.20-5.40 [facility] RBC (Bld) [#/Vol] Erythrocytes [#/volu me] in Blood by Automated count Low 4.20-5.40 [facility] Serum or plasma anion gap de terminationon 02-03-2024 Anion gap [Moles/Vol] 9.7 mmol/L [facility] Anion gap [Moles/Vol] Serum or plasma an ion gap determination [facility] Estimated glomerular filtrat ion rate (GFR) non- Americanon 01-23-2024 GFR/1.73 sq M.predicted among non-blacks MDRD (S/P/Bld) [Vol rate/Area] 23 mL/min/{1.73_m2} Low >=60 [facility] GFR/1.73 sq M.predicted among non-blacks MDRD (S/P/Bld) [Vol rate/Area] Estimated glomerular filtration rate (GFR) non- Low >=60 [facility] Laboratory - Chemistry and C hemistry - challengeon 01-23-2024 Albumin [Mass/Vol] 3.0 g/dL Low 3.4-5.0 [facility] Calcium [Mass/Vol] 8.6 mg/dL 8.5-10.1 [facility] Chloride [Moles/Vol] 107 mmol/L 98-107 [facility] CO2 [Moles/Vol] 30.8 mmol/L 21.0-32.0 [facility] Creatinine [Mass/Vol] 2.09 mg/dL High 0.55-1.02 [facility] GFR/1.73 sq M.predicted MDRD (S/P/Bld) [Vol rate/Area] 27 mL/min/{1.73_m2} Low >=60 [facility] Glucose [Mass/Vol] 100 mg/dL 74-106 [facility] Potassium [Moles/Vol] 5.8 mmol/L High 3.5-5.1 [facility] Sodium [Moles/Vol] 144 mmol/L 136-145 [facility] Urea nitrogen [Mass/Vol] 44.0 mg/dL High 7.0-18.0 [facility] Urea nitrogen/Creatinine [Mass ratio] 21.1 mg/mg [facility] No Panel Informationon 01-22 Phosphorus Level 4.1 mg/dL 2.6-4.7 [facility] Serum or plasma anion gap de terminationon 01-23-2024 Anion gap [Moles/Vol] 12.0 [facility] Anion gap [Moles/Vol] Serum or plasma an ion gap determination [facility] Erythrocyte distribution wid th Auto (RBC) [Ratio]on 01-20-2024 Erythrocyte distribution width (RBC) [Ratio] 15.0 % 11.0-15.0 [facility] Erythrocyte distribution width (RBC) [Ratio] Erythrocyte distribution width [Ratio] by Automated count 11.0-15.0 [facility] Estimated glomerular filtrat ion rate (GFR) non- Americanon 01-20-2024 GFR/1.73 sq M.predicted among non-blacks MDRD (S/P/Bld) [Vol rate/Area] 23 mL/min/{1.73_m2} Low >=60 [facility] GFR/1.73 sq M.predicted among non-blacks MDRD (S/P/Bld) [Vol rate/Area] Estimated glomerular filtration rate (GFR) non- Low >=60 [facility] Hematocrit Auto (Bld) [Volum e fraction]on 01-20-2024 Hematocrit (Bld) [Volume fraction] 32.5 % Low 36.0-48.0 [facility] Hematocrit (Bld) [Volume fraction] Hematocrit [Volume Fraction] of Blood by Automated count Low 36.0-48.0 [facility] Hemoglobin [Mass/volume] in Bloodon 01-20-2024 Hemoglobin (Bld) [Mass/Vol] 9.6 g/dL Low 12.0-16.0 [facility] Hemoglobin (Bld) [Mass/Vol] Hemoglobin [Mass/volume] in Blood Low 12.0-16.0 [facility] Iron binding capacity [Mass/ volume] in Serum or Plasmaon 01-20-2024 Iron binding capacity [Mass/Vol] 260.0 ug/dL 250.0-450. 0 [facility] Iron binding capacity [Mass/Vol] Iron binding capacity [Mass/volume] in Serum or Plasma 250.0-450. 0 [facility] Iron saturation [Mass Fracti on] in Serum or Plasmaon 01-20-2024 Iron saturation [Mass fraction] 10.0 % [facility] Iron saturation [Mass fraction] Iron saturation [Mass Fraction] in Serum or Plasma [facility] Laboratory - Chemistry and C hemistry - challengeon 01-20-2024 Albumin [Mass/Vol] 3.0 g/dL Low 3.4-5.0 [facility] Calcium [Mass/Vol] 8.5 mg/dL 8.5-10.1 [facility] Chloride [Moles/Vol] 108 mmol/L High 98-107 [facility] CO2 [Moles/Vol] 31.6 mmol/L 21.0-32.0 [facility] Creatinine [Mass/Vol] 2.06 mg/dL High 0.55-1.02 [facility] Ferritin [Mass/Vol] 36.0 ng/mL 8.0-252.0 [facility] GFR/1.73 sq M.predicted MDRD (S/P/Bld) [Vol rate/Area] 28 mL/min/{1.73_m2} Low >=60 [facility] Glucose [Mass/Vol] 106 mg/dL 74-106 [facility] Iron [Mass/Vol] 26.0 ug/dL Low 50.0-170.0 [facility] Potassium [Moles/Vol] 5.8 mmol/L High 3.5-5.1 [facility] Sodium [Moles/Vol] 144 mmol/L 136-145 [facility] Urea nitrogen [Mass/Vol] 48.0 mg/dL High 7.0-18.0 [facility] Urea nitrogen/Creatinine [Mass ratio] 23.3 mg/mg [facility] Leukocytes [#/volume] correc katy for nucleated erythrocytes in Blood by Automated counon 01-20-2024 WBC corrected for nucl RBC Auto (Bld) [#/Vol] 6.4 10 3/uL 4.0-11.0 [facility] WBC corrected for nucl RBC Auto (Bld) [#/Vol] Leukocytes [#/volume] corrected for nucleated erythrocytes in Blood by Automated coun 4.0-11.0 [facility] MCH Auto (RBC) [Entitic mass ]on 01-20-2024 MCH (RBC) [Entitic mass] 30.0 pg 26.7-34.0 [facility] MCH (RBC) [Entitic mass] MCH [Entitic mass] by Automated count 26.7-34.0 [facility] MCHC Auto (RBC) [Mass/Vol]on 01-20-2024 MCHC (RBC) [Mass/Vol] 29.5 g/dL Low 29.9-35.2 [facility] MCHC (RBC) [Mass/Vol] MCHC [Mass/volume] by Automated count Low 29.9-35.2 [facility] MCV Auto (RBC) [Entitic vol] on 01-20-2024 MCV (RBC) [Entitic vol] 101.6 fL High 81.0-99.0 [facility] MCV (RBC) [Entitic vol] MCV [Entitic volume] by Automated count High 81.0-99.0 [facility] No Panel Informationon 01-19 Phosphorus Level 4.2 mg/dL 2.6-4.7 [facility] Platelet mean volume Auto (B ld) [Entitic vol]on 01-20-2024 Platelet mean volume (Bld) [Entitic vol] 9.6 fL 9.5-13.5 [facility] Platelet mean volume (Bld) [Entitic vol] Platelet mean volume [Entitic volume] in Blood by Automated count 9.5-13.5 [facility] Platelets Auto (Bld) [#/Vol] on 01-20-2024 Platelets (Bld) [#/Vol] 196 10 3/uL 150-450 [facility] Platelets (Bld) [#/Vol] Platelets [#/volume] in Blood by Automated count 150-450 [facility] RBC Auto (Bld) [#/Vol]on RBC (Bld) [#/Vol] 3.20 10 6/uL Low 4.20-5.40 [facility] RBC (Bld) [#/Vol] Erythrocytes [#/volu me] in Blood by Automated count Low 4.20-5.40 [facility] Serum or plasma anion gap de terminationon 01-20-2024 Anion gap [Moles/Vol] 10.2 mmol/L [facility] Anion gap [Moles/Vol] Serum or plasma an ion gap determination [facility] 36on 01-07-2024 36 Please forward to PCP Normal [facility] Refillon 01-06-2024 Refill [id number] Dany Martínez 1940 F Date Provider Department Center 01[facility][id number] No family history on file Reason for Visit and Comments: Med Refill [[id number]] Normal [facility] Erythrocyte distribution wid th Auto (RBC) [Ratio]on 01-05-2024 Erythrocyte distribution width (RBC) [Ratio] 14.2 % 11.0-15.0 [facility] Erythrocyte distribution width (RBC) [Ratio] Erythrocyte distribution width [Ratio] by Automated count 11.0-15.0 [facility] Hematocrit Auto (Bld) [Volum e fraction]on 01-05-2024 Hematocrit (Bld) [Volume fraction] 32.4 % Low 36.0-48.0 [facility] Hematocrit (Bld) [Volume fraction] Hematocrit [Volume Fraction] of Blood by Automated count Low 36.0-48.0 [facility] Hemoglobin [Mass/volume] in Bloodon 01-05-2024 Hemoglobin (Bld) [Mass/Vol] 9.8 g/dL Low 12.0-16.0 [facility] Hemoglobin (Bld) [Mass/Vol] Hemoglobin [Mass/volume] in Blood Low 12.0-16.0 [facility] Leukocytes [#/volume] correc katy for nucleated erythrocytes in Blood by Automated counon 01-05-2024 WBC corrected for nucl RBC Auto (Bld) [#/Vol] 5.7 10 3/uL 4.0-11.0 [facility] WBC corrected for nucl RBC Auto (Bld) [#/Vol] Leukocytes [#/volume] corrected for nucleated erythrocytes in Blood by Automated coun 4.0-11.0 [facility] MCH Auto (RBC) [Entitic mass ]on 01-05-2024 MCH (RBC) [Entitic mass] 30.1 pg 26.7-34.0 [facility] MCH (RBC) [Entitic mass] MCH [Entitic mass] by Automated count 26.7-34.0 [facility] MCHC Auto (RBC) [Mass/Vol]on 01-05-2024 MCHC (RBC) [Mass/Vol] 30.2 g/dL 29.9-35.2 [facility] MCHC (RBC) [Mass/Vol] MCHC [Mass/volume] by Automated count 29.9-35.2 [facility] MCV Auto (RBC) [Entitic vol] on 01-05-2024 MCV (RBC) [Entitic vol] 99.4 fL High 81.0-99.0 [facility] MCV (RBC) [Entitic vol] MCV [Entitic volume] by Automated count High 81.0-99.0 [facility] Platelet mean volume Auto (B ld) [Entitic vol]on 01-05-2024 Platelet mean volume (Bld) [Entitic vol] 9.3 fL Low 9.5-13.5 [facility] Platelet mean volume (Bld) [Entitic vol] Platelet mean volume [Entitic volume] in Blood by Automated count Low 9.5-13.5 [facility] Platelets Auto (Bld) [#/Vol] on 01-05-2024 Platelets (Bld) [#/Vol] 211 10 3/uL 150-450 [facility] Platelets (Bld) [#/Vol] Platelets [#/volume] in Blood by Automated count 150-450 [facility] RBC Auto (Bld) [#/Vol]on RBC (Bld) [#/Vol] 3.26 10 6/uL Low 4.20-5.40 [facility] RBC (Bld) [#/Vol] Erythrocytes [#/volu me] in Blood by Automated count Low 4.20-5.40 [facility] No Panel Informationon 12-07 Bedside Glucose 124 [facility] Erythrocyte distribution wid th Auto (RBC) [Ratio]on 11-27-2023 Erythrocyte distribution width (RBC) [Ratio] 14.7 % 11.0-15.0 [facility] Hematocrit Auto (Bld) [Volum e fraction]on 11-27-2023 Hematocrit (Bld) [Volume fraction] 31.1 % Low 36.0-48.0 [facility] Hemoglobin [Mass/volume] in Bloodon 11-27-2023 Hemoglobin (Bld) [Mass/Vol] 9.3 g/dL Low 12.0-16.0 [facility] Leukocytes [#/volume] correc katy for nucleated erythrocytes in Blood by Automated counon 11-27-2023 WBC corrected for nucl RBC Auto (Bld) [#/Vol] 5.4 10 3/uL 4.0-11.0 [facility] MCH Auto (RBC) [Entitic mass ]on 11-27-2023 MCH (RBC) [Entitic mass] 29.5 pg 26.7-34.0 [facility] MCHC Auto (RBC) [Mass/Vol]on 11-27-2023 MCHC (RBC) [Mass/Vol] 29.9 g/dL 29.9-35.2 [facility] MCV Auto (RBC) [Entitic vol] on 11-27-2023 MCV (RBC) [Entitic vol] 98.7 fL 81.0-99.0 [facility] Platelet mean volume Auto (B ld) [Entitic vol]on 11-27-2023 Platelet mean volume (Bld) [Entitic vol] 9.9 fL 9.5-13.5 [facility] Platelets Auto (Bld) [#/Vol] on 11-27-2023 Platelets (Bld) [#/Vol] 195 10 3/uL 150-450 [facility] RBC Auto (Bld) [#/Vol]on RBC (Bld) [#/Vol] 3.15 10 6/uL Low 4.20-5.40 [facility] Erythrocyte distribution wid th Auto (RBC) [Ratio]on 11-13-2023 Erythrocyte distribution width (RBC) [Ratio] 14.6 % 11.0-15.0 [facility] Estimated glomerular filtrat ion rate (GFR) non- Americanon 11-13-2023 GFR/1.73 sq M.predicted among non-blacks MDRD (S/P/Bld) [Vol rate/Area] 19 mL/min/{1.73_m2} Low >=60 [facility] Hematocrit Auto (Bld) [Volum e fraction]on 11-13-2023 Hematocrit (Bld) [Volume fraction] 30.1 % Low 36.0-48.0 [facility] Hemoglobin [Mass/volume] in Bloodon 11-13-2023 Hemoglobin (Bld) [Mass/Vol] 8.9 g/dL Low 12.0-16.0 [facility] Laboratory - Chemistry and C hemistry - challengeon 11-13-2023 Albumin [Mass/Vol] 3.1 g/dL Low 3.4-5.0 [facility] Calcium [Mass/Vol] 8.4 mg/dL Low 8.5-10.1 [facility] Chloride [Moles/Vol] 106 mmol/L 98-107 [facility] CO2 [Moles/Vol] 29.3 mmol/L 21.0-32.0 [facility] Creatinine [Mass/Vol] 2.41 mg/dL High 0.55-1.02 [facility] GFR/1.73 sq M.predicted MDRD (S/P/Bld) [Vol rate/Area] 23 mL/min/{1.73_m2} Low >=60 [facility] Glucose [Mass/Vol] 97 mg/dL 74-106 [facility] Potassium [Moles/Vol] 4.8 mmol/L 3.5-5.1 [facility] Sodium [Moles/Vol] 143 mmol/L 136-145 [facility] Urea nitrogen [Mass/Vol] 47.0 mg/dL High 7.0-18.0 [facility] Urea nitrogen/Creatinine [Mass ratio] 19.5 mg/mg [facility] Leukocytes [#/volume] correc katy for nucleated erythrocytes in Blood by Automated counon 11-13-2023 WBC corrected for nucl RBC Auto (Bld) [#/Vol] 5.0 10 3/uL 4.0-11.0 [facility] MCH Auto (RBC) [Entitic mass ]on 11-13-2023 MCH (RBC) [Entitic mass] 28.9 pg 26.7-34.0 [facility] MCHC Auto (RBC) [Mass/Vol]on 11-13-2023 MCHC (RBC) [Mass/Vol] 29.6 g/dL Low 29.9-35.2 [facility] MCV Auto (RBC) [Entitic vol] on 11-13-2023 MCV (RBC) [Entitic vol] 97.7 fL 81.0-99.0 [facility] No Panel Informationon 11-12 Phosphorus Level 4.2 mg/dL 2.6-4.7 [facility] Platelet mean volume Auto (B ld) [Entitic vol]on 11-13-2023 Platelet mean volume (Bld) [Entitic vol] 9.7 fL 9.5-13.5 [facility] Platelets Auto (Bld) [#/Vol] on 11-13-2023 Platelets (Bld) [#/Vol] 228 10 3/uL 150-450 [facility] RBC Auto (Bld) [#/Vol]on RBC (Bld) [#/Vol] 3.08 10 6/uL Low 4.20-5.40 [facility] Serum or plasma anion gap de terminationon 11-13-2023 Anion gap [Moles/Vol] 12.5 mmol[facility] Erythrocyte distribution wid th Auto (RBC) [Ratio]on 10-30-2023 Erythrocyte distribution width (RBC) [Ratio] 14.1 % 11.0-15.0 [facility] Estimated glomerular filtrat ion rate (GFR) non- Americanon 10-30-2023 GFR/1.73 sq M.predicted among non-blacks MDRD (S/P/Bld) [Vol rate/Area] 18 mL/min/{1.73_m2} Low >=60 [facility] Hematocrit Auto (Bld) [Volum e fraction]on 10-30-2023 Hematocrit (Bld) [Volume fraction] 28.0 % Low 36.0-48.0 [facility] Hemoglobin [Mass/volume] in Bloodon 10-30-2023 Hemoglobin (Bld) [Mass/Vol] 8.3 g/dL Low 12.0-16.0 [facility] Laboratory - Chemistry and C hemistry - challengeon 10-30-2023 Albumin [Mass/Vol] 2.9 g/dL Low 3.4-5.0 [facility] Calcium [Mass/Vol] 8.6 mg/dL 8.5-10.1 [facility] Chloride [Moles/Vol] 107 mmol/L 98-107 [facility] CO2 [Moles/Vol] 28.1 mmol/L 21.0-32.0 [facility] Creatinine [Mass/Vol] 2.52 mg/dL High 0.55-1.02 [facility] GFR/1.73 sq M.predicted MDRD (S/P/Bld) [Vol rate/Area] 22 mL/min/{1.73_m2} Low >=60 [facility] Glucose [Mass/Vol] 100 mg/dL 74-106 [facility] Potassium [Moles/Vol] 5.7 mmol/L High 3.5-5.1 [facility] Sodium [Moles/Vol] 142 mmol/L 136-145 [facility] Urea nitrogen [Mass/Vol] 43.0 mg/dL High 7.0-18.0 [facility] Urea nitrogen/Creatinine [Mass ratio] 17.1 mg/mg [facility] Leukocytes [#/volume] correc katy for nucleated erythrocytes in Blood by Automated counon 10-30-2023 WBC corrected for nucl RBC Auto (Bld) [#/Vol] 4.6 10 3/uL 4.0-11.0 [facility] MCH Auto (RBC) [Entitic mass ]on 10-30-2023 MCH (RBC) [Entitic mass] 28.7 pg 26.7-34.0 [facility] MCHC Auto (RBC) [Mass/Vol]on 10-30-2023 MCHC (RBC) [Mass/Vol] 29.6 g/dL Low 29.9-35.2 [facility] MCV Auto (RBC) [Entitic vol] on 10-30-2023 MCV (RBC) [Entitic vol] 96.9 fL 81.0-99.0 [facility] No Panel Informationon 10-29 Parathyroid Hormone (Intact) 73 pg/mL Abnormal 15-65 [facility] Comment on above: Performed at: [address] [id number] Director: Deshaun Hunter PhD, Phone: [phone] Phosphorus Level 4.3 mg/dL 2.6-4.7 [facility] Platelet mean volume Auto (B ld) [Entitic vol]on 10-30-2023 Platelet mean volume (Bld) [Entitic vol] 9.8 fL 9.5-13.5 [facility] Platelets Auto (Bld) [#/Vol] on 10-30-2023 Platelets (Bld) [#/Vol] 178 10 3/uL 150-450 [facility] RBC Auto (Bld) [#/Vol]on RBC (Bld) [#/Vol] 2.89 10 6/uL Low 4.20-5.40 [facility] Serum or plasma anion gap de terminationon 10-30-2023 Anion gap [Moles/Vol] 12.6 mmol[facility] Erythrocyte distribution wid th Auto (RBC) [Ratio]on 10-07-2023 Erythrocyte distribution width (RBC) [Ratio] 14.2 % 11.0-15.0 [facility] Hematocrit Auto (Bld) [Volum e fraction]on 10-07-2023 Hematocrit (Bld) [Volume fraction] 28.0 % Low 36.0-48.0 [facility] Hemoglobin [Mass/volume] in Bloodon 10-07-2023 Hemoglobin (Bld) [Mass/Vol] 8.6 g/dL Low 12.0-16.0 [facility] Leukocytes [#/volume] correc katy for nucleated erythrocytes in Blood by Automated counon 10-07-2023 WBC corrected for nucl RBC Auto (Bld) [#/Vol] 5.1 10 3/uL 4.0-11.0 [facility] MCH Auto (RBC) [Entitic mass ]on 10-07-2023 MCH (RBC) [Entitic mass] 30.1 pg 26.7-34.0 [facility] MCHC Auto (RBC) [Mass/Vol]on 10-07-2023 MCHC (RBC) [Mass/Vol] 30.7 g/dL 29.9-35.2 [facility] MCV Auto (RBC) [Entitic vol] on 10-07-2023 MCV (RBC) [Entitic vol] 97.9 fL 81.0-99.0 [facility] Platelet mean volume Auto (B ld) [Entitic vol]on 10-07-2023 Platelet mean volume (Bld) [Entitic vol] 10.1 fL 9.5-13.5 [facility] Platelets Auto (Bld) [#/Vol] on 10-07-2023 Platelets (Bld) [#/Vol] 194 10 3/uL 150-450 [facility] RBC Auto (Bld) [#/Vol]on RBC (Bld) [#/Vol] 2.86 10 6/uL Low 4.20-5.40 [facility] Erythrocyte distribution wid th Auto (RBC) [Ratio]on 09-16-2023 Erythrocyte distribution width (RBC) [Ratio] 14.0 % 11.0-15.0 [facility] Estimated glomerular filtrat ion rate (GFR) non- Americanon 09-16-2023 GFR/1.73 sq M.predicted among non-blacks MDRD (S/P/Bld) [Vol rate/Area] 22 mL/min/{1.73_m2} Low >=60 [facility] Hematocrit Auto (Bld) [Volum e fraction]on 09-16-2023 Hematocrit (Bld) [Volume fraction] 25.6 % Low 36.0-48.0 [facility] Hemoglobin [Mass/volume] in Bloodon 09-16-2023 Hemoglobin (Bld) [Mass/Vol] 7.5 g/dL Low 12.0-16.0 [facility] Laboratory - Chemistry and C hemistry - challengeon 09-16-2023 Albumin [Mass/Vol] 3.1 g/dL Low 3.4-5.0 [facility] Calcium [Mass/Vol] 9.2 mg/dL 8.5-10.1 [facility] Chloride [Moles/Vol] 107 mmol/L 98-107 [facility] CO2 [Moles/Vol] 28.2 mmol/L 21.0-32.0 [facility] Creatinine [Mass/Vol] 2.17 mg/dL High 0.55-1.02 [facility] GFR/1.73 sq M.predicted MDRD (S/P/Bld) [Vol rate/Area] 26 mL/min/{1.73_m2} Low >=60 [facility] Glucose [Mass/Vol] 98 mg/dL 74-106 [facility] Potassium [Moles/Vol] 5.1 mmol/L 3.5-5.1 [facility] Sodium [Moles/Vol] 142 mmol/L 136-145 [facility] Urea nitrogen [Mass/Vol] 43.0 mg/dL High 7.0-18.0 [facility] Urea nitrogen/Creatinine [Mass ratio] 19.8 mg/mg [facility] Laboratory - Urinalysison Protein (U) [Mass/Vol] 117.6 mg/dL High <=11.9 F [facility] Leukocytes [#/volume] correc katy for nucleated erythrocytes in Blood by Automated counon 09-16-2023 WBC corrected for nucl RBC Auto (Bld) [#/Vol] 5.4 10 3/uL 4.0-11.0 [facility] MCH Auto (RBC) [Entitic mass ]on 09-16-2023 MCH (RBC) [Entitic mass] 29.2 pg 26.7-34.0 [facility] MCHC Auto (RBC) [Mass/Vol]on 09-16-2023 MCHC (RBC) [Mass/Vol] 29.3 g/dL Low 29.9-35.2 [facility] MCV Auto (RBC) [Entitic vol] on 09-16-2023 MCV (RBC) [Entitic vol] 99.6 fL High 81.0-99.0 [facility] No Panel Informationon 09-15 Parathyroid Hormone (Intact) 75 pg/mL Abnormal 15-65 [facility] Comment on above: Performed at: [facility] Eleno gorman[address] [id number] Director: Deshaun Hunter PhD, Phone: [phone] Phosphorus Level 4.6 mg/dL 2.6-4.7 [facility] Urine Random Creatinine 38.12 mg/dL 20.00-300. 00 [facility] Platelet mean volume Auto (B ld) [Entitic vol]on 09-16-2023 Platelet mean volume (Bld) [Entitic vol] 10.3 fL 9.5-13.5 [facility] Platelets Auto (Bld) [#/Vol] on 09-16-2023 Platelets (Bld) [#/Vol] 225 10 3/uL 150-450 [facility] RBC Auto (Bld) [#/Vol]on RBC (Bld) [#/Vol] 2.57 10 6/uL Low 4.20-5.40 [facility] Serum or plasma anion gap de terminationon 09-16-2023 Anion gap [Moles/Vol] 11.9 mmol/L [facility] Urine protein/creatinine rat ioon 09-16-2023 Protein/Creatinine (U) [Ratio] 3.08 [facility] Activated partial thrombopla stin time (aPTT) in platelet poor plasma by coagulation aOrdered By: Rin Ramirez on 09-01-2023 aPTT Coag (PPP) [Time] 30.5 s 25.1-36.5 [facility] Comment on above: A hematocrit value g reater than 55% may lead to inaccurate results in coagulation testing. Patients having hematocrit values >55% require a special collection tube for coagulation studies. Please contact the laboratory at [phone] for redraw instructions. Albumin [Mass/volume] in Ser um or Plasma by Bromocresol green (BCG) dye binding methoOrdered By: Rin Ramirez on 09-01-2023 Albumin BCG dye [Mass/Vol] 3.6 g/dL 3.5-5.7 [facility] Automated erythrocytes count in urine sediment (number/area)Ordered By: Rin Ramirez on 09-01-2023 RBC Auto (Urine sed) [#/Area] 50-100 [HPF] High 0-4 [facility] Automated leukocytes count i n urine sediment (number/area)Ordered By: Rin Ramirez on 09-01-2023 WBC Auto (Urine sed) [#/Area] 1-2 [HPF] 0-4 [facility] Bilirubin Test strip Ql (U)O rdered By: Rin Ramirez on 09-01-2023 Bilirubin Ql (U) Negative Negative [facility] CT guided needle placementon 09-01-2023 CT guided needle placement [facility] [address] [place] [address] [place], [place] [id number] CT Scan Report Signed Patient: Margie Martínez MR#: [id number] : 1940 Acct:[id number] Age/Sex: 83 / F ADM Date: 09/01/23 Loc: CT Room: Type: [facility] Attending Dr: Rin Ramirez MD Copies to: Rin Ramirez MD Ordering Provider: Rin Ramirez MD Date of Service: 09/01/23 CT/CT guided biopsy: ANGELINA with nephrotic range proteinuria, hypoalbumine ([id number]) CT/CT guided needle placement: random kidney bx [...] biopsy. Impression dictated by: Kj Urias Jr., DLiliana09/01/2023 1:30 PM Dictation Location: [place] [address] Transcribed By: [facility] 09/01/23 1330 Dictated By: Kj Urias Jr, DO 09/01/23 1328 Signed By: 09/01/23 1330 Normal [facility] Calcium [Mass/volume] in Ser um or PlasmaOrdered By: Rin Ramirez on 09-01-2023 Calcium [Mass/Vol] 8.9 mg/dL 8.6-10.3 [facility] Carbon dioxide, total [Moles /volume] in Serum or PlasmaOrdered By: Rin Ramirez on 09-01-2023 CO2 [Moles/Vol] 30.5 mmol/L 21.0-31.0 [facility] Chloride [Moles/volume] in S adriana or PlasmaOrdered By: Rin Ramirez on 09-01-2023 Chloride [Moles/Vol] 107 mmol/L 98-107 [facility] Color Auto (U)Ordered By: Domingo Ramirez on 09-01-2023 Color (U) Yellow Yellow [facility] Creatinine [Mass/volume] in Serum or PlasmaOrdered By: Rin Ramirez on 09-01-2023 Creatinine [Mass/Vol] 2.02 mg/dL High 0.60-1.20 [facility] Creatinine [Mass/volume] in UrineOrdered By: Rin Ramirez on 09-01-2023 Creatinine (U) [Mass/Vol] 52.0 mg/dL [facility] Comment on above: No reference range e stablished Dipstick and Microscopicon 0 09-01-2023 Appearance (U) Cloudy Critically abnormal Clear [facility] Comment on above: Order Comment: Name Collection Type:: Clean-Voided Midstream Performed By: #### V [id number], BHANU, RENAL, [id number], ADDONUAPLUS, PROCRERAT, FLAKO, MG, PTH, PT, CBCNO, PTT, URMACRERAT, FE and TIBC #### [facility] [address] Bacteria,Urine None Seen Normal None Seen [facility] Comment on above: Order Comment: Name Collection Type:: Clean-Voided Midstream Performed By: #### V [id number], BHANU, RENAL, [id number], ADDONUAPLUS, PROCRERAT, FLAKO, MG, PTH, PT, CBCNO, PTT, URMACRERAT, FE and TIBC #### [address] Bilirubin,Urine Negative Normal Negative [facility] Comment on above: Order Comment: Name Collection Type:: Clean-Voided Midstream Performed By: #### V [id number], BHANU, RENAL, [id number], ADDONUAPLUS, PROCRERAT, FLAKO, MG, PTH, PT, CBCNO, PTT, URMACRERAT, FE and TIBC #### [address] Color (U) Yellow Normal Yellow [facility] Comment on above: Order Comment: Name Collection Type:: Clean-Voided Midstream Performed By: #### V [id number], BHANU, RENAL, [id number], ADDONUAPLUS, PROCRERAT, FLAKO, MG, PTH, PT, CBCNO, PTT, URMACRERAT, FE and TIBC #### [address] Glucose Ql (U) Normal Normal Normal [facility] Comment on above: Order Comment: Name Collection Type:: Clean-Voided Midstream Performed By: #### V [id number], BHANU, RENAL, [id number], ADDONUAPLUS, PROCRERAT, FLAKO, MG, PTH, PT, CBCNO, PTT, URMACRERAT, FE and TIBC #### [address] Hyaline Casts,Urine 0-8 Normal 0-8 [facility] Comment on above: Order Comment: Name Collection Type:: Clean-Voided Midstream Result Comment: PERF ORMED BY: [address] [place] [address] PATHOLOGIST EXTERMINATION INSPECTOR JEWELL ROWLEY M.D. Performed By: #### V [id number], BHANU, RENAL, [id number], ADDONUAPLUS, PROCRERAT, FLAKO, MG, PTH, PT, CBCNO, PTT, URMACRERAT, FE and TIBC #### [address] [place] [address] [place] Ketones Ql (U) Negative Normal Negative [facility] Comment on above: Order Comment: Name Collection Type:: Clean-Voided Midstream Performed By: #### V [id number], BHANU, RENAL, [id number], ADDONUAPLUS, PROCRERAT, FLAKO, MG, PTH, PT, CBCNO, PTT, URMACRERAT, FE and TIBC #### [address] Leukocyte esterase Test strip Ql (U) Negative Normal Negative [facility] Comment on above: Order Comment: Name Collection Type:: Clean-Voided Midstream Performed By: #### V [id number], BHANU, RENAL, [id number], ADDONUAPLUS, PROCRERAT, FLAKO, MG, PTH, PT, CBCNO, PTT, URMACRERAT, FE and TIBC #### [address] Nitrite,Urine Negative Normal Negative [facility] Comment on above: Order Comment: Name Collection Type:: Clean-Voided Midstream Performed By: #### V [id number], BHANU, RENAL, [id number], ADDONUAPLUS, PROCRERAT, FLAKO, MG, PTH, PT, CBCNO, PTT, URMACRERAT, FE and TIBC #### [address] Occult Blood,Urine 1+ High Negative [facility] Comment on above: Order Comment: Name Collection Type:: Clean-Voided Midstream Result Comment: PERF ORMED BY: [place] [address] PATHOLOGIST EXTERMINATION INSPECTOR JEWELL ROWLEY M.D. Performed By: #### V [id number], BHANU, RENAL, [id number], ADDONUAPLUS, PROCRERAT, FLAKO, MG, PTH, PT, CBCNO, PTT, URMACRERAT, FE and TIBC #### [address] pH (U) 7.0 [pH] Normal 5.0-9.0 [facility] Comment on above: Order Comment: Name Collection Type:: Clean-Voided Midstream Performed By: #### V [id number], BHANU, RENAL, [id number], ADDONUAPLUS, PROCRERAT, FLAKO, MG, PTH, PT, CBCNO, PTT, URMACRERAT, FE and TIBC #### [address] Protein (U) [Mass/Vol] 300 mg/dL High Negative [facility] Comment on above: Order Comment: Name Collection Type:: Clean-Voided Midstream Performed By: #### V [id number], BHANU, RENAL, [id number], ADDONUAPLUS, PROCRERAT, FLAKO, MG, PTH, PT, CBCNO, PTT, URMACRERAT, FE and TIBC #### [address] RBC,Urine 50-100 High 0-4 [facility] Comment on above: Order Comment: Name Collection Type:: Clean-Voided Midstream Performed By: #### V [id number], BHANU, RENAL, [id number], ADDONUAPLUS, PROCRERAT, FLAKO, MG, PTH, PT, CBCNO, PTT, URMACRERAT, FE and TIBC #### [address] Specificy [place],Urine 1.015 Normal 1.001-1.03 0 [facility] Comment on above: Order Comment: Name Collection Type:: Clean-Voided Midstream Performed By: #### V [id number], BHANU, RENAL, [id number], ADDONUAPLUS, PROCRERAT, FLAKO, MG, PTH, PT, CBCNO, PTT, URMACRERAT, FE and TIBC #### [address] Squamous Epithelial Cell,Urine 0-1 Normal 0-2 [facility] Comment on above: Order Comment: Name Collection Type:: Clean-Voided Midstream Performed By: #### V [id number], BHANU, RENAL, [id number], ADDONUAPLUS, PROCRERAT, FLAKO, MG, PTH, PT, CBCNO, PTT, URMACRERAT, FE and TIBC #### [facility] [address] Urobilinogen,Urine Normal Normal Normal [facility] Comment on above: Order Comment: Name Collection Type:: Clean-Voided Midstream Performed By: #### V [id number], BHANU, RENAL, [id number], ADDONUAPLUS, PROCRERAT, FLAKO, MG, PTH, PT, CBCNO, PTT, URMACRERAT, FE and TIBC #### [address] WBC,Urine 1-2 Normal 0-4 [facility] Comment on above: Order Comment: Name Collection Type:: Clean-Voided Midstream Performed By: #### V [id number], BHANU, RENAL, [id number], ADDONUAPLUS, PROCRERAT, FLAKO, MG, PTH, PT, CBCNO, PTT, URMACRERAT, FE and TIBC #### [address] Erythrocyte distribution wid th Auto (RBC) [Ratio]Ordered By: Rin Ramirez on 09-01-2023 Erythrocyte distribution width (RBC) [Ratio] 14.7 % 11.9-15.3 [facility] Ferritinon 09-01-2023 Ferritin [Mass/Vol] 16.5 ng/mL Normal 11.0-306.8 [facility] Comment on above: Performed By: #### V [id number], BHANU, RENAL, [id number], ADDONUAPLUS, PROCRERAT, FLAKO, MG, PTH, PT, CBCNO, PTT, URMACRERAT, FE and TIBC #### [address] Ferritin [Mass/volume] in Se rum or PlasmaOrdered By: Rin Ramirez on 09-01-2023 Ferritin [Mass/Vol] 16.5 ng/mL 11.0-306.8 [facility] Folate [Mass/volume] in Seru m or PlasmaOrdered By: Rin Ramirez on 09-01-2023 Folate [Mass/Vol] 16.5 ng/mL >5.9 [facility] Comment on above: Folate reference ran ge: >5.9 ng/mlThe WHO technical consultation on folate and vitamin [id number] has determined that folate concentrations lessthan 4 ng/ml are considered deficient. Glucose [Mass/volume] in Ser um or PlasmaOrdered By: Rin Ramirez on 09-01-2023 Glucose [Mass/Vol] 121 mg/dL High 70-100 [facility] Comment on above: ADA recommended refe rence rangeRandom Glucose Reference Range is dependent on time and content of last meal. Glucose of more than 200 mg/dL in a nonstressed, ambulatory subject supports the diagnosis of Diabetes Mellitus. Hematocrit Auto (Bld) [Volum e fraction]Ordered By: Rin Ramirez on 09-01-2023 Hematocrit (Bld) [Volume fraction] 25.0 % Low 34.0-46.4 [facility] Hemoglobin [Mass/volume] in BloodOrdered By: Rin Ramirez on 09-01-2023 Hemoglobin (Bld) [Mass/Vol] 8.0 g/dL Low 11.8-15.4 [facility] Hemogram CBC Without Diffon 09-01-2023 Erythrocyte distribution width (RBC) [Ratio] 14.7 % Normal 11.9-15.3 [facility] Comment on above: Performed By: #### V [id number], BHANU, RENAL, [id number], ADDONUAPLUS, PROCRERAT, FLAKO, MG, PTH, PT, CBCNO, PTT, URMACRERAT, FE and TIBC #### [facility] [address] Hematocrit (Bld) [Volume fraction] 25.0 % Low 34.0-46.4 [facility] Comment on above: Performed By: #### V [id number], BHANU, RENAL, [id number], ADDONUAPLUS, PROCRERAT, FLAKO, MG, PTH, PT, CBCNO, PTT, URMACRERAT, FE and TIBC #### [address] Hemoglobin (Bld) [Mass/Vol] 8.0 g/dL Low 11.8-15.4 [facility] Comment on above: Performed By: #### V [id number], BHANU, RENAL, [id number], ADDONUAPLUS, PROCRERAT, FLAKO, MG, PTH, PT, CBCNO, PTT, URMACRERAT, FE and TIBC #### [address] MCH (RBC) [Entitic mass] 29.3 pg Normal 24.7-34.3 [facility] Comment on above: Performed By: #### V [id number], BHANU, RENAL, [id number], ADDONUAPLUS, PROCRERAT, FLAKO, MG, PTH, PT, CBCNO, PTT, URMACRERAT, FE and TIBC #### [address] MCV (RBC) [Entitic vol] 92.0 fL Normal 80-100 [facility] Comment on above: Performed By: #### V [id number], BHANU, RENAL, [id number], ADDONUAPLUS, PROCRERAT, FLAKO, MG, PTH, PT, CBCNO, PTT, URMACRERAT, FE and TIBC #### [address] Mean Corpuscular HGB Conc 31.9 g/dL Low 32.0-35.0 [facility] Comment on above: Performed By: #### V [id number], BHANU, RENAL, [id number], ADDONUAPLUS, PROCRERAT, FLAKO, MG, PTH, PT, CBCNO, PTT, URMACRERAT, FE and TIBC #### [address] Platelet mean volume (Bld) [Entitic vol] 8.1 fL Normal 6.3-10.7 [facility] Comment on above: Result Comment: PERF ORMED BY: [place] [address] PATHOLOGIST EXTERMINATION INSPECTOR JEWELL ROWLEY M.D. Performed By: #### V [id number], BHANU, RENAL, [id number], ADDONUAPLUS, PROCRERAT, FLAKO, MG, PTH, PT, CBCNO, PTT, URMACRERAT, FE and TIBC #### [address] Platelets (Bld) [#/Vol] 214 10*3/uL Normal 150-450 [facility] Comment on above: Performed By: #### V [id number], BHANU, RENAL, [id number], ADDONUAPLUS, PROCRERAT, FLAKO, MG, PTH, PT, CBCNO, PTT, URMACRERAT, FE and TIBC #### [address] RBC (Bld) [#/Vol] 2.72 10*6/uL Low 3.60-5.00 [facility] Comment on above: Performed By: #### V [id number], BHANU, RENAL, [id number], ADDONUAPLUS, PROCRERAT, FLAKO, MG, PTH, PT, CBCNO, PTT, URMACRERAT, FE and TIBC #### [address] WBC (Bld) [#/Vol] 4.7 10*3/uL Normal 3.8-11.6 [facility] Comment on above: Performed By: #### V [id number], BHANU, RENAL, [id number], ADDONUAPLUS, PROCRERAT, FLAKO, MG, PTH, PT, CBCNO, PTT, URMACRERAT, FE and TIBC #### [address] INR in Platelet poor plasma by Coagulation assayOrdered By: Rin Ramirez on 09-01-2023 INR Coag (PPP) [Relative time] 1.0 {INR} [facility] Comment on above: INR Therapeutic Rang [...] on 09-01-2023 Iron [Mass/Vol] 122 ug/dL 50-212 [facility] Iron and TIBC Profileon 08-17 % Iron Saturation 33.9 % Normal 20-50 [facility] Comment on above: Performed By: #### V [id number], BHANU, RENAL, [id number], ADDONUAPLUS, PROCRERAT, LFAKO, MG, PTH, PT, CBCNO, PTT, URMACRERAT, FE and TIBC #### [facility] [address] [place] [address] Iron [Mass/Vol] 122 ug/dL Normal 50-212 [facility] Comment on above: Performed By: #### V [id number], BHANU, RENAL, [id number], ADDONUAPLUS, PROCRERAT, FLAKO, MG, PTH, PT, CBCNO, PTT, URMACRERAT, FE and TIBC #### [facility] [address] Total Iron Binding Capacity 360 ug/dL Normal 255-450 [facility] Comment on above: Performed By: #### V [id number], BHANU, RENAL, [id number], ADDONUAPLUS, PROCRERAT, FLAKO, MG, PTH, PT, CBCNO, PTT, URMACRERAT, FE and TIBC #### [facility] [address] [place] [id number] [facility] Transferrin [Mass/Vol] 257 mg/dL Normal 203-362 [facility] Comment on above: Performed By: #### V [id number], BHANU, RENAL, [id number], ADDONUAPLUS, PROCRERAT, FLAKO, MG, PTH, PT, CBCNO, PTT, URMACRERAT, FE and TIBC #### [facility] [address] [place] [id number] [facility] Iron binding capacity [Mass/ volume] in Serum or PlasmaOrdered By: Rin Ramirez on 09-01-2023 Iron binding capacity [Mass/Vol] 360 ug/dL 255-450 [facility] Iron saturation [Mass Fracti on] in Serum or PlasmaOrdered By: Rin Ramirez on 09-01-2023 Iron saturation [Mass fraction] 33.9 % 20-50 [facility] Ketones Auto test strip (U) [Mass/Vol]Ordered By: Rin Ramirez on 09-01-2023 Ketones (U) [Mass/Vol] Negative Negative Fi [place] N[place]un 09-01-2023 L Specimen: Received: 09/01/23 Status: MAIA Cohen Num: [id number] Spec Type: Surgical Subm Dr: Kj Urias Jr, DO Tissues: A Gross Only ([facility] BX) Procedures: Level 1 Gross Age/ Patient Sex Location Account Attending Physician Margie Martínez 83/F CT [id number] Rin Ramirez MD SPEC NUM: [id number] RECD: 09/01/23 STATUS: MAIA COHEN NUM: [id number] DEMAR: 09/01/[address]: Kj Urias Jr, DO ENTERED: 09/01/23 [facility] DR: SPEC TYPE: Surgical DEPT: S ORDERED: Level 1 Gross ORDERED: Level 1 Gross Supplemental Report Addendum 1 Entered: 09/03/23 Supplemental for findings of Consultation Report from [facility] in [facility]: DIAGNOSIS: -Fibrillary Glomerulopathy -Arterionephrosclerosis Note: -Please also see entire report on file for detailed description Addendum Signed (signature on file) Chris Lin MD 09/03/23932 Specimen: [id number] Received: 09/01/23 Status: MAIA Noel Num: [id number] Spec Type: Surgical Subm Dr: Kj Urias Jr, DO Tissues: A Gross Only ([facility] KIDNEY BX) Procedures: Level 1 Gross Patient: Margie Martínez [id number] (Continued) Specimen: Received: 09/01/23 (Continued) Signed (signature on file) Chris Lin MD 09/03/23 0929 Specimen: [id number] Received: 09/01/23 Status: MAIA Cohen Num: [id number] Spec Type: Surgical Subm Dr: Kj Urias Jr, DO Tissues: A Gross Only ([facility] KIDNEY BX) Procedures: Level 1 Gross Patient: NoeMargie santos [id number] (Continued) Specimen: [id number] Received: 09/01/23 (Continued) Pathological Diagnosis Right kidney random core biopsy: -3 feldman-pink needle cores to be placed in special fixation solutions and to be forwarded to [facility] for final consultation interpretation. Gross only examination Gross Description In formalin labeled right kidney tissue are three feldman-pink needle cores ranging in size from 1.4 cm to 1.9 cm long x 0.1 cm average diameter. Submitted entirely in Lewis's solution and in 10% neutral buffered formalin. RG/CYC Clinical history: ANGELINA, proteinuria, hypoalbuminemia CPT Codes 87311 Specimen: [id number] Received: 09/01/23 Status: MAIA Cohen Num: [id number] Spec Type: Surgical Subm Dr: Kj Urias Jr, DO Tissues: A Gross Only (R[facility] KIDNEY BX) Procedures: Level 1 Gross Patient: Margie Martínez [id number] (Continued) Signed (signature on file) Chris Lin MD 09/03/23 2081 Normal [facility] Laboratory - UrinalysisOrder ed By: Rin Ramirez on 09-01-2023 Hyaline casts LM Ql (Urine sed) 0-8 [LPF] 0-8 [facility] Leukocytes [#/volume] correc katy for nucleated erythrocytes in Blood by Automated counOrdered By: Rin Ramirez on 09-01-2023 WBC corrected for nucl RBC Auto (Bld) [#/Vol] 4.7 10*3/uL 3.8-11.6 [facility] MCH Auto (RBC) [Entitic mass ]Ordered By: Rin Ramirez on 09-01-2023 MCH (RBC) [Entitic mass] 29.3 pg 24.7-34.3 [facility] MCHC Auto (RBC) [Mass/Vol]Or dered By: Rin Ramirez on 09-01-2023 MCHC (RBC) [Mass/Vol] 31.9 g/dL Low 32.0-35.0 [facility] MCV Auto (RBC) [Entitic vol] Ordered By: Rin Ramirez on 09-01-2023 MCV (RBC) [Entitic vol] 92.0 fL 80-100 [facility] Magnesiumon 09-01-2023 Magnesium [Mass/Vol] 1.9 mg/dL Normal 1.9-2.7 [facility] Comment on above: Performed By: #### V [id number], BHANU, RENAL, [id number], ADDONUAPLUS, PROCRERAT, FLAKO, MG, PTH, PT, CBCNO, PTT, URMACRERAT, FE and TIBC #### [facility] [address] Magnesium [Mass/volume] in S adriana or PlasmaOrdered By: Rin Ramirez on 09-01-2023 Magnesium [Mass/Vol] 1.9 mg/dL 1.9-2.7 [facility] MicroAlb Creat Ratio,Uon Albumin DL <= 20 mg/L (U) [Mass/Vol] mg/dL High 0.0-1.8 [facility] Comment on above: Performed By: #### V [id number], BHANU, RENAL, [id number], ADDONUAPLUS, PROCRERAT, FLAKO, MG, PTH, PT, CBCNO, PTT, URMACRERAT, FE and TIBC #### [facility] [address] Creatinine, Urine (Random) 52.0 mg/dL Normal [facility] Comment on above: Result Comment: No r eference range established Performed By: #### V [id number], BHANU, RENAL, [id number], ADDONUAPLUS, PROCRERAT, FLAKO, MG, PTH, PT, CBCNO, PTT, URMACRERAT, FE and TIBC #### [facility] [address] Microalbumin/Creatinin e Ratio Not performed Normal 0.0-30.0 [facility] Comment on above: Performed By: #### V [id number], BHANU, RENAL, [id number], ADDONUAPLUS, PROCRERAT, FLAKO, MG, PTH, PT, CBCNO, PTT, URMACRERAT, FE and TIBC #### [facility] [address] Microalbumin [Mass/volume] i n UrineOrdered By: Rin Ramirez on 09-01-2023 Albumin DL <= 20 mg/L (U) [Mass/Vol] mg/dL High 0.0-1.8 [facility] Nitrite Test strip Ql (U)Ord ered By: Rin Ramirez on 09-01-2023 Nitrite Ql (U) Negative Negative [facility] No Panel InformationOrdered By: Rin Ramirez on 09-01-2023 Estimated GFR (CKD-EPI) 24.043 mL/Min [facility] Creatinine Clearance (Chem 21.55 [facility] Parathyrin.intact [Mass/volu me] in Serum or PlasmaOrdered By: Rin Ramirez on 09-01-2023 Parathyrin.intact [Mass/Vol] 188.2 pg/mL High [facility] Parathyroid Hormone Intacton 09-01-2023 Parathyroid Hormone Intact 188.2 pg/mL High [facility] Comment on above: Result Comment: PERF ORMED BY: [place] [address] PATHOLOGIST EXTERMINATION INSPECTOR JEWELL ROWLEY M.D. Performed By: #### V [id number], BHANU, RENAL, [id number], ADDONUAPLUS, PROCRERAT, FLAKO, MG, PTH, PT, CBCNO, PTT, URMACRERAT, FE and TIBC #### [facility] [address] [place] [address] [place] Partial Thromboplastin Timeo n 09-01-2023 aPTT Coag (Bld) [Time] 30.5 s Normal 25.1-36.5 [facility] Comment on above: Result Comment: A he matocrit value greater than 55% may lead to inaccurate results in coagulation testing. Patients having hematocrit values >55% require a special collection tube for coagulation studies. Please contact the laboratory at [phone] for redraw instructions. PERFORMED BY: [place] [address] PATHOLOGIST EXTERMINATION INSPECTOR JEWELL ROWLEY M.D. Performed By: #### V [id number], BHANU, RENAL, [id number], ADDONUAPLUS, PROCRERAT, FLAKO, MG, PTH, PT, CBCNO, PTT, URMACRERAT, FE and TIBC #### [facility] [address] [place] [address] [facility] Phosphate [Mass/volume] in S adriana or PlasmaOrdered By: Rin Ramirez on 09-01-2023 Phosphate [Mass/Vol] 4.2 mg/dL 2.5-4.5 [facility] Platelet mean volume Auto (B ld) [Entitic vol]Ordered By: Rin Ramirez on 09-01-2023 Platelet mean volume (Bld) [Entitic vol] 8.1 fL 6.3-10.7 [facility] Platelets Auto (Bld) [#/Vol] Ordered By: Rin Ramirez on 09-01-2023 Platelets (Bld) [#/Vol] 214 10*3/uL 150-450 [facility] Potassium [Moles/volume] in Serum or PlasmaOrdered By: Rin Ramirez on 09-01-2023 Potassium [Moles/Vol] 4.7 mmol/L 3.5-5.1 [facility] Protein Auto test strip (U) [Mass/Vol]Ordered By: Rin Ramirez on 09-01-2023 Protein (U) [Mass/Vol] 300 mg/dL High Negative Fi [place] Protein Creat Ratio Ur Rando mon 09-01-2023 Protein (U) [Mass/Vol] 199 mg/dL High 0-9 [facility] Comment on above: Performed By: #### V [id number], BHANU, RENAL, [id number], ADDONUAPLUS, PROCRERAT, FLAKO, MG, PTH, PT, CBCNO, PTT, URMACRERAT, FE and TIBC #### [facility] [address] Urine Protein/Creatinine Ratio 3827 mg/g{Cre} High 0-200 [facility] Comment on above: Performed By: #### V [id number], BHANU, RENAL, [id number], ADDONUAPLUS, PROCRERAT, FLAKO, MG, PTH, PT, CBCNO, PTT, URMACRERAT, FE and TIBC #### [facility] [address] [place] [id number] [place] Protein [Mass/volume] in Uri neOrdered By: Rin Ramirez on 09-01-2023 Protein (U) [Mass/Vol] 199 mg/dL High 0-9 [facility] Prothrombin Time INRon 08-31 INR Coag (PPP) [Relative time] 1.0 {INR} Normal [facility] Comment on above: Result [...] 3 - 4.5 Performed By: #### V [id number], BHANU, RENAL, [id number], ADDONUAPLUS, PROCRERAT, FLAKO, MG, PTH, PT, CBCNO, PTT, URMACRERAT, FE and TIBC #### [facility] [address] [place] [address] [facility] PT Coag (PPP) [Time] 11.4 s Normal 9.0-12.9 [facility] Comment on above: Result Comment: A he matocrit value greater than 55% may lead to inaccurate results in coagulation testing. Patients having hematocrit values >55% require a special collection tube for coagulation studies. Please contact the laboratory at [phone] for redraw instructions. Performed By: #### V [id number], BHANU, RENAL, [id number], ADDONUAPLUS, PROCRERAT, FLAKO, MG, PTH, PT, CBCNO, PTT, URMACRERAT, FE and TIBC #### [facility] [address] [place] [id number] [facility] Prothrombin time (PT)Ordered By: Rin Ramirez on 09-01-2023 PT Coag (PPP) [Time] 11.4 s 9.0-12.9 [facility] Comment on above: A hematocrit value g reater than 55% may lead to inaccurate results in coagulation testing. Patients having hematocrit values >55% require a special collection tube for coagulation studies. Please contact the laboratory at [phone] for redraw instructions. RBC Auto (Bld) [#/Vol]Ordere d By: Rin Ramirez on 09-01-2023 RBC (Bld) [#/Vol] 2.72 10*6/uL Low 3.60-5.00 [facility] Renal Function Panelon 08-31 Albumin [Mass/Vol] 3.6 g/dL Normal 3.5-5.7 [facility] Comment on above: Performed By: #### V [id number], BHANU, RENAL, [id number], ADDONUAPLUS, PROCRERAT, FLAKO, MG, PTH, PT, CBCNO, PTT, URMACRERAT, FE and TIBC #### [facility] [address] [place] [id number] [facility] Anion gap [Moles/Vol] 9.2 mmol/L Normal 6.0-15.0 [facility] Comment on above: Performed By: #### V [id number], BHANU, RENAL, [id number], ADDONUAPLUS, PROCRERAT, FLAKO, MG, PTH, PT, CBCNO, PTT, URMACRERAT, FE and TIBC #### [address] Calcium [Mass/Vol] 8.9 mg/dL Normal 8.6-10.3 [facility] Comment on above: Performed By: #### V [id number], BHANU, RENAL, [id number], ADDONUAPLUS, PROCRERAT, FLAKO, MG, PTH, PT, CBCNO, PTT, URMACRERAT, FE and TIBC #### [address] Chloride [Moles/Vol] 107 mmol/L Normal 98-107 [facility] Comment on above: Performed By: #### V [id number], BHANU, RENAL, [id number], ADDONUAPLUS, PROCRERAT, FLAKO, MG, PTH, PT, CBCNO, PTT, URMACRERAT, FE and TIBC #### [address] CO2 [Moles/Vol] 30.5 mmol/L Normal 21.0-31.0 [facility] Comment on above: Performed By: #### V [id number], BHANU, RENAL, [id number], ADDONUAPLUS, PROCRERAT, FLAKO, MG, PTH, PT, CBCNO, PTT, URMACRERAT, FE and TIBC #### [address] Creatinine [Mass/Vol] 2.02 mg/dL High 0.60-1.20 [facility] Comment on above: Performed By: #### V [id number], BHANU, RENAL, [id number], ADDONUAPLUS, PROCRERAT, FLAKO, MG, PTH, PT, CBCNO, PTT, URMACRERAT, FE and TIBC #### [address] Creatinine Clr Calc Pharmacy 21.55 Normal [facility] Comment on above: Performed By: #### V [id number], BHANU, RENAL, [id number], ADDONUAPLUS, PROCRERAT, FLAKO, MG, PTH, PT, CBCNO, PTT, URMACRERAT, FE and TIBC #### [facility] [address] GFR/1.73 sq M.predicted MDRD (S/P/Bld) [Vol rate/Area] 24.043 mL/min/{1.73_m2} Normal [facility] Comment on above: Performed By: #### V [id number], BHANU, RENAL, [id number], ADDONUAPLUS, PROCRERAT, FLAKO, MG, PTH, PT, CBCNO, PTT, URMACRERAT, FE and TIBC #### [facility] [address] Glucose [Mass/Vol] 121 mg/dL High 70-100 [facility] Comment on above: Result Comment: [facility] Glucose Reference Range is dependent on time and content of last meal. Glucose of more than 200 mg/dL in a nonstressed, ambulatory subject supports the diagnosis of Diabetes Mellitus. ADA recommended reference range Performed By: #### V [id number], BHANU, RENAL, [id number], ADDONUAPLUS, PROCRERAT, FLAKO, MG, PTH, PT, CBCNO, PTT, URMACRERAT, FE and TIBC #### [facility] [address] Phosphate [Mass/Vol] 4.2 mg/dL Normal 2.5-4.5 [facility] Comment on above: Performed By: #### V [id number], BHANU, RENAL, [id number], ADDONUAPLUS, PROCRERAT, FLAKO, MG, PTH, PT, CBCNO, PTT, URMACRERAT, FE and TIBC #### [facility] [address] Potassium [Moles/Vol] 4.7 mmol/L Normal 3.5-5.1 [facility] Comment on above: Performed By: #### V [id number], BHANU, RENAL, [id number], ADDONUAPLUS, PROCRERAT, FLAKO, MG, PTH, PT, CBCNO, PTT, URMACRERAT, FE and TIBC #### [facility] [address] Sodium [Moles/Vol] 142 mmol/L Normal 136-145 [facility] Comment on above: Performed By: #### V [id number], BHANU, RENAL, [id number], ADDONUAPLUS, PROCRERAT, FLAKO, MG, PTH, PT, CBCNO, PTT, URMACRERAT, FE and TIBC #### [address] Urea nitrogen [Mass/Vol] 32 mg/dL High 7-25 [facility] Comment on above: Performed By: #### V [id number], BHANU, RENAL, [id number], ADDONUAPLUS, PROCRERAT, FLAKO, MG, PTH, PT, CBCNO, PTT, URMACRERAT, FE and TIBC #### [address] Serum or plasma anion gap de terminationOrdered By: Rin Ramirez on 09-01-2023 Anion gap [Moles/Vol] 9.2 mmol/L 6.0-15.0 [facility] Sodium [Moles/volume] in Ser um or PlasmaOrdered By: Rin Ramirez on 09-01-2023 Sodium [Moles/Vol] 142 mmol/L 136-145 [facility] Sodium [Moles/volume] in Uri neOrdered By: Rin Ramirez on 09-01-2023 Sodium (U) [Moles/Vol] 137 mmol/L [facility] Comment on above: No reference range e stablished Sodium, Urine (Random)on Sodium (U) [Moles/Vol] 137 mmol/L Normal [facility] Comment on above: Result Comment: No r eference range established PERFORMED BY: [place] [address] PATHOLOGIST EXTERMINATION INSPECTOR JEWELL ROWLEY M.D. Performed By: #### V [id number], BHANU, RENAL, [id number], ADDONUAPLUS, PROCRERAT, FLAKO, MG, PTH, PT, CBCNO, PTT, URMACRERAT, FE and TIBC #### [facility] [address] Specific gravity Auto test s trip (U) [Rel density]Ordered By: Rin Ramirez on 09-01-2023 Specific gravity (U) [Rel density] 1.015 1.001-1.03 0 [facility] Squamous epithelial cells de tection in urine sediment by light microscopyOrdered By: Rin Ramirez on 09-01-2023 Epithelial cells.squamous LM Ql (Urine sed) 0-1 [HPF] 0-2 [facility] Transferrin [Mass/volume] in Serum or PlasmaOrdered By: Rin Ramirez on 09-01-2023 Transferrin [Mass/Vol] 257 mg/dL 203-[facility] Urea nitrogen [Mass/volume] in Serum or PlasmaOrdered By: Rin Ramirez on 09-01-2023 Urea nitrogen [Mass/Vol] 32 mg/dL High 7-25 [facility] Urine bacteria detection by automated methodOrdered By: Rin Ramirez on 09-01-2023 Bacteria Auto Ql (U) None seen None Seen [facility] Urine clarity by refractomet ry automatedOrdered By: Rin Ramirez on 09-01-2023 Clarity Refractometry automated (U) Cloudy Abnormal Clear [facility] Urine glucose measurement by automated test strip (mass/volume)Ordered By: Rin Ramirez on 09-01-2023 Glucose Auto test strip (U) [Mass/Vol] Normal mg/dL Normal [facility] Urine hemoglobin detection b y automated test stripOrdered By: Rin Ramirez on 09-01-2023 Hemoglobin Auto test strip Ql (U) 1+ High Negative [facility] Urine leukocyte esterase det ection by automated test stripOrdered By: Rin Ramirez on 09-01-2023 Leukocyte esterase Auto test strip Ql (U) Negative Negative [facility] Urine microalbumin/creatinin e mass ratioOrdered By: Rin Ramirez on 09-01-2023 Albumin/Creatinine DL <= 20 mg/L (U) [Mass ratio] TNP [facility] Comment on above: Test not performed Urine protein/creatinine rat ioOrdered By: Rin Ramirez on 09-01-2023 Protein/Creatinine (U) [Ratio] 3827 mg/g{Cre} High 0-200 [facility] Urobilinogen Auto test strip (U) [Mass/Vol]Ordered By: Rin Ramirez on 09-01-2023 Urobilinogen (U) [Mass/Vol] Normal mg/dL Normal [facility] Vit. B12/Folate Profileon Cobalamin (Vitamin B12) [Mass/Vol] 862 pg/mL Normal 180-914 [facility] Comment on above: Performed By: #### V [id number], BHANU, RENAL, [id number], ADDONUAPLUS, PROCRERAT, FLAKO, MG, PTH, PT, CBCNO, PTT, URMACRERAT, FE and TIBC #### [facility] [address] Folate 16.5 ng/mL Normal >5.9 [facility] Comment on above: Result Comment: Arlen te reference range: >5.9 ng/ml The WHO technical consultation on folate and vitamin b12 deficiencies has determined that folate concentrations less than 4 ng/ml are considered deficient. Performed By: #### V [id number], BHANU, RENAL, [id number], ADDONUAPLUS, PROCRERAT, FLAKO, MG, PTH, PT, CBCNO, PTT, URMACRERAT, FE and TIBC #### [facility] [address] Vitamin B12 ser/plasOrdered By: Rin Ramirez on 09-01-2023 Cobalamin (Vitamin B12) [Mass/Vol] 862 pg/mL 180-914 [facility] Vitamin D 25 Hydroxy Totalon 09-01-2023 Vitamin D 25 Hydroxy Total 18.3 ng/mL Low 30-100 [facility] Comment on above: Result Comment: YULY MIN D STATUS 25(OH)VITAMIN D RANGE (ng/mL) Deficient <20 Insufficient 20 to <30 Sufficient 30 to 100 Reference: Jacoby MF,Rell NC, Xochitl WILLIAMSON, et al. Evaluation,treatment, and prevention of vitamin D deficiency; an Endocrine Society clinical practice guideline. JCEM. 2010; 96(7):1911-. PERFORMED BY: [facility] [address] [place] [id number] PATHOLOGIST EXTERMINATION INSPECTOR JEWELL ROWLEY M.D. Performed By: #### V [id number], BHANU, RENAL, [id number], ADDONUAPLUS, PROCRERAT, FLAKO, MG, PTH, PT, CBCNO, PTT, URMACRERAT, FE and TIBC #### [facility] [address] [place] [address] [facility] Vitamin D+Metabolites [Mass/ volume] in Serum or PlasmaOrdered By: Rin Ramirez on 09-01-2023 Vitamin D+Metabolites [Mass/Vol] 18.3 ng/mL Low 30-100 [facility] Comment on above: VITAMIN D STATUS 25( [place])VITAMIN D RANGE (ng/mL) Deficient <20 Insufficient 20 to <30Sufficient 30 to 100Reference: Jacoby GARZA,Rell CARR, Xochitl WILLIAMSON, et al. Evaluation,treatment, and prevention of vitamin D deficiency; an Endocrine Society clinical practice guideline. JCEM. 2010; 96(7):1911-. pH Auto test strip (U)Ordere d By: Rin Ramirez on 09-01-2023 pH (U) 7.0 [pH] 5.0-9.0 [facility] HbA1c HPLC (Bld) [Mass fract ion]on 08-20-2023 HbA1c (Bld) [Mass fraction] 5.7 % [facility] No Panel Informationon 08-19 Bedside Glucose 106 [facility] No Panel Informationon 08-04 Miscellaneous Test COMMENT . 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 This pattern may be characterized asrepresenting a severe selective glomerular nephropathyindicating increased glomerular permeability. Monoclonalprotein is not apparent.Performed at: [facility] [place] [id number] Director: Deshaun Hunter PhD, Phone: [phone] Activated partial thrombopla stin time (aPTT) in platelet poor plasma by coagulation aon 08-01-2023 aPTT Coag (PPP) [Time] 38.6 s 22.3-36.2 [facility] Atypical perinuclear antineu trophil cytoplasmic antibodies measurementon 08-01-2023 Neutrophil cytoplasmic Ab.perinuclear.atypica l IF (S) [Titer] <1:20 titer Neg:<1:20 [facility] Comment on above: The atypical pANCA p attern has been observed in asignificant percentage of patients with ulcerative colitis,primary sclerosing cholangitis and autoimmune hepatitis. Automated urine specific gra vity by refractometryon 08-01-2023 Specific gravity Refractometry automated (U) [Rel density] 1.020 1.005-1.02 5 [facility] Bilirubin Auto test strip (U ) [Mass/Vol]on 08-01-2023 Bilirubin (U) [Mass/Vol] Negative NEGATIVE [facility] Cefuroxime free [Mass/Vol]on 08-01-2023 Anti-Nuclear Antibody Profile Negative Negative [facility] Comment on above: Performed at: [facility] [place] [address] [id number] Director: Deshaun Hunter PhD, Phone: [phone] Performed at: CB - [facility] [address] [id number] Director: Deshaun Hunter PhD, Phone: [phone] Color Auto (U)on 08-01-2023 Color (U) LT. YELLOW YELLOW [facility] Erythrocyte distribution wid th Auto (RBC) [Ratio]on 08-01-2023 Erythrocyte distribution width (RBC) [Ratio] 13.1 % 11.0-15.0 [facility] Estimated glomerular filtrat ion rate (GFR) non- Americanon 08-01-2023 GFR/1.73 sq M.predicted among non-blacks MDRD (S/P/Bld) [Vol rate/Area] 27 mL/min/{1.73_m2} >=60 [facility] Globulin Calc (S) [Mass/Vol] on 08-01-2023 Globulin (S) [Mass/Vol] 3.3 g/dL [facility] Glomerular basement membrane Ab [Units/volume] in Serum by Immunoassayon 08-01-2023 Glomerular basement membrane Ab IA Qn (S) <0.2 units 0.0-0.9 [facility] Comment on above: Performed at: [facility] [address] [id number] Director: Jhon Roberts MD, Phone: [phone] at: [facility] [id number] Director: Deshaun Hunter PhD, Phone: [phone] HBV surface Ag IA Qlon 07-31 Hepatitis B Surface Antigen Negative Negative [facility] Comment on above: Performed at: [employer] [address] [id number] Director: Deshaun Hunter PhD, Phone: [phone] Performed at: [employer] [address] [id number] Director: Deshaun Hunter PhD, Phone: [phone] Hematocrit Auto (Bld) [Volum e fraction]on 08-01-2023 Hematocrit (Bld) [Volume fraction] 27.0 % 36.0-48.0 [facility] Hemoglobin [Mass/volume] in Bloodon 08-01-2023 Hemoglobin (Bld) [Mass/Vol] 7.8 g/dL 12.0-16.0 [facility] INR in Platelet poor plasma by Coagulation assayon 08-01-2023 INR Coag (PPP) [Relative time] 2.43 {INR} [facility] Comment on above: DESIRED INR:2.0-3.0 CONDITIONS NOT LISTED BELOW2.5-3.5 FOR PROSTHETIC HEART VALVE REPLACEMENT2.5-3.5 RECURRENT THROMBOSIS Immunofixation for Urineon 0 08-01-2023 Interpretation Immunofixation (U) [Interp] Comment . [facility] Comment on above: No monoclonality det ected.Performed at: [facility] [address] [id number] Director: Deshaun Hunter PhD, Phone: [phone] Iron binding capacity [Mass/ volume] in Serum or Plasmaon 08-01-2023 Iron binding capacity [Mass/Vol] 270.0 ug/dL 250.0-450. 0 [facility] Iron saturation [Mass Fracti on] in Serum or Plasmaon 08-01-2023 Iron saturation [Mass fraction] 14.8 % [facility] Ketones Auto test strip (U) [Mass/Vol]on 08-01-2023 Ketones (U) [Mass/Vol] Negative NEGATIVE [facility] [place] [facility] - Chemistry and C hemistry - challengeon 08-01-2023 Albumin [Mass/Vol] 2.7 g/dL 3.4-5.0 [facility] ALP [Catalytic activity/Vol] 50 U/L 46-116 [facility] ALT [Catalytic activity/Vol] 18 U/L 14-59 [facility] AST [Catalytic activity/Vol] 12 U/L 15-37 [facility] Bilirubin [Mass/Vol] 0.2 mg/dL 0.2-1.0 [facility] Calcium [Mass/Vol] 8.8 mg/dL 8.5-10.1 [facility] Chloride [Moles/Vol] 105 mmol/L 98-107 [facility] CO2 [Moles/Vol] 32.1 mmol/L 21.0-32.0 [facility] Cobalamin (Vitamin B12) [Mass/Vol] 603.0 pg/mL 193.0-986. 0 [facility] Creatinine [Mass/Vol] 1.80 mg/dL 0.55-1.02 [facility] Ferritin [Mass/Vol] 32.0 ng/mL 8.0-252.0 [facility] GFR/1.73 sq M.predicted MDRD (S/P/Bld) [Vol rate/Area] 33 mL/min/{1.73_m2} >=60 [facility] Glucose [Mass/Vol] 112 mg/dL 74-106 [facility] Iron [Mass/Vol] 40.0 ug/dL 50.0-170.0 [facility] Magnesium [Mass/Vol] 1.9 mg/dL 1.8-2.4 [facility] Potassium [Moles/Vol] 4.3 mmol/L 3.5-5.1 [facility] Protein [Mass/Vol] 6.0 g/dL 6.4-8.2 [facility] Sodium [Moles/Vol] 145 mmol/L 136-145 [facility] Urea nitrogen [Mass/Vol] 33.0 mg/dL 7.0-18.0 [facility] Urea nitrogen/Creatinine [Mass ratio] 18.3 mg/mg [facility] Laboratory - Urinalysison Protein (U) [Mass/Vol] 181.1 mg/dL <=11.9 F [facility] Leukocytes [#/volume] correc katy for nucleated erythrocytes in Blood by Automated counon 08-01-2023 WBC corrected for nucl RBC Auto (Bld) [#/Vol] 6.4 10 3/uL 4.0-11.0 [facility] MCH Auto (RBC) [Entitic mass ]on 08-01-2023 MCH (RBC) [Entitic mass] 29.2 pg 26.7-34.0 [facility] MCHC Auto (RBC) [Mass/Vol]on 08-01-2023 MCHC (RBC) [Mass/Vol] 28.9 g/dL 29.9-35.2 [facility] MCV Auto (RBC) [Entitic vol] on 08-01-2023 MCV (RBC) [Entitic vol] 101.1 fL 81.0-99.0 [facility] Myeloperoxidase Ab [Units/vo lume] in Serum by Immunoassayon 08-01-2023 Myeloperoxidase Ab IA Qn (S) <0.2 units 0.0-0.9 [facility] No Panel Informationon 07-31 25-Hydroxy Vitamin D Total 16.6 ng/mL [facility] Comment on above: <20 ng/mL Vit D defi cient20-<30 ng/mL Vit D -782 ng/mL Vit D sufficient>100 ng/mL Potential Toxicity Folate 13.00 ng/mL 8.60-58.90 [facility] Miscellaneous Test COMMENT . [facility] Comment on above: Test Ordered: [id number] Cryoglobulin, Ql, Serum, RflxCryoglobulin, Ql, Serum, Rflx Comment CB Reference Range: None detectedNone Detected at 72 hoursThis test was developed and its performance characteristicsdetermined by [employer]. It has not been cleared orapproved by the Food and Drug Administration.Performed at: [facility] [address] [id number] Director: Deshaun Hunter PhD, Phone: [phone] Parathyroid Hormone (Intact) 60 pg/mL 15 [facility] Comment on above: Performed at: [facility] [address] [id number] Director: Deshaun Hunter PhD, Phone: [phone] Perinuclear ANCA (p-ANCA) Antibody <1:20 titer Neg:<1:20 [facility] Comment on above: The presence of posi tive fluorescence exhibiting P-ANCA orC-ANCA patterns alone is not specific for the diagnosis ofWegener's Granulomatosis (WG) or microscopic polyangiitis.Decisions about treatment should not be based solely onANCA IFA results. The International ANCA Group Consensusrecommends follow up testing of positive sera with both VT-3 and MPO-ANCA enzyme immunoassays. As many as 5% serumsamples are positive only by EIA. Ref. AM J Clin [id number];111:507-513. Phosphorus Level 3.8 mg/dL 2.6-4.7 [facility] Urine Random Creatinine 27.68 mg/dL 20.00-300. 00 [facility] Platelet mean volume Auto (B ld) [Entitic vol]on 08-01-2023 Platelet mean volume (Bld) [Entitic vol] 10.5 fL 9.5-13.5 [facility] Platelets Auto (Bld) [#/Vol] on 08-01-2023 Platelets (Bld) [#/Vol] 227 10 3/uL 150-450 [facility] Protein Auto test strip (U) [Mass/Vol]on 08-01-2023 Protein (U) [Mass/Vol] 100 mg/dL NEG/TRACE [facility] [place] Proteinase 3 Ab [Units/volum e] in Serum by Immunoassayon 08-01-2023 Proteinase 3 Ab IA Qn (S) <0.2 units 0.0-0.9 [facility] Prothrombin time (PT)on 07-17 PT Coag (PPP) [Time] 24.5 s 9.0-11.6 [facility] RBC Auto (Bld) [#/Vol]on RBC (Bld) [#/Vol] 2.67 10 6/uL 4.20-5.40 [facility] Serum classic neutrophil cyt oplasmic antibody titer by immunofluorescenceon 08-01-2023 Neutrophil cytoplasmic Ab.classic IF (S) [Titer] <1:20 titer Neg:<1:20 [facility] Serum or plasma albumin/glob ulin mass ratioon 08-01-2023 Albumin/Globulin [Mass ratio] 0.8 {ratio} [facility] Serum or plasma anion gap de terminationon 08-01-2023 Anion gap [Moles/Vol] 12.2 mmol/L [facility] [place] Serum or plasma complement C 3 measurement (mass/volume)on 08-01-2023 Complement C3 [Mass/Vol] 140 mg/dL 82-167 [facility] Serum or plasma complement C 4 measurement (mass/volume)on 08-01-2023 Complement C4 [Mass/Vol] 30 mg/dL 1238 [facility] Comment on above: Performed at: - L [address] [id number] Director: Deshaun Hunter PhD, Phone: [phone] Specific gravity Auto test s trip (U) [Rel density]on 08-01-2023 Specific gravity (U) [Rel density] CLEAR CLEAR [facility] Urine glucose measurement by test strip (mass/volume)on 08-01-2023 Glucose Test strip (U) [Mass/Vol] Negative NEGATIVE [facility] Urine hemoglobin detection b y automated test stripon 08-01-2023 Hemoglobin Auto test strip Ql (U) LARGE NEGATIVE [facility] Urine nitrite detection by a utomated test stripon 08-01-2023 Nitrite Auto test strip Ql (U) Negative NEGATIVE [facility] Urine protein/creatinine rat ioon 08-01-2023 Protein/Creatinine (U) [Ratio] 6.54 [facility] Urobilinogen Auto test strip (U) [Mass/Vol]on 08-01-2023 Urobilinogen Qn (U) 0.2 {Radha'U}/dL 0.2-1.0 [facility] pH Auto test strip (U)on pH (U) 7.0 [pH] 5.0-9.0 [facility] A1C HEMOGLOBINon 02-19-2023 HbA1c (Bld) [Mass fraction] 5.8 % [facility] Other Glucose - FINGER STICKon Glucose [Mass/Vol] 174 mg/dL [facility] Other HbA1c (Bld) [Mass fraction]o n 02-19-2023 A1C HEMOGLOBIN batterii Other PROF 14(COMP METB)on 023 Albumin [Mass/Vol] 2.9 g/dL Critically low 3.4-5.0 [facility] Comment on above: Performed By: #### C MP #### [facility] [address] [place] [address] Dr. Lamar Lin Albumin/Globulin [Mass ratio] 0.8 {ratio} Normal [facility] Comment on above: Performed By: #### C MP #### [facility] Laboratory [address] [place] [address] Dr. Lamar Lin ALP [Catalytic activity/Vol] 70 U/L Normal 46-116 [facility] Comment on above: Performed By: #### C MP #### [facility] [address] [place] [address] Dr. Lamar Lin ALT [Catalytic activity/Vol] 14 U/L Normal 14-59 [facility] Comment on above: Performed By: #### C MP #### [facility] [address] [place] [address] Dr. Lamar Lin Anion gap [Moles/Vol] 10.5 mmol/L Normal [facility] Comment on above: Performed By: #### C MP #### [facility] [address] [place] [address] Dr. Lamar Lin AST [Catalytic activity/Vol] 10 U/L Critically low 15-37 [facility] Comment on above: Performed By: #### C MP #### [facility] [address] [place] [address] Dr. Lamar Lin Bilirubin [Mass/Vol] 0.2 mg/dL Normal 0.2-1.0 [facility] Comment on above: Performed By: #### C MP #### [facility] [address] [place] [address] Dr. Lamar Lin Calcium [Mass/Vol] 9.4 mg/dL Normal 8.5-10.1 [facility] Comment on above: Performed By: #### C MP #### [facility] [address] [address] [address] Lamar Lin Chloride [Moles/Vol] 104 mmol/L Normal 98-107 [facility] Comment on above: Performed By: #### C MP #### [facility] [address] [place] [address] Dr. Lamar Lin CO2 [Moles/Vol] 34.9 mmol/L Critically high 21.0-32.0 [facility] Comment on above: Performed By: #### C MP #### [facility] [address] [address] [address] Lamar Lin Creatinine [Mass/Vol] 0.96 mg/dL Normal 0.55-1.02 [facility] Comment on above: Performed By: #### C MP #### [facility] [address] [address] [address] Lamar Lin EGFR-AF ZIMBABWEAN >60 Normal >=60 [facility] Comment on above: Performed By: #### C MP #### [facility] [address] [address] [address] Lamar Lin EGFR-NON AF ZIMBABWEAN 56 mL/min/1.73m2 Critically low >=60 [facility] Comment on above: Performed By: #### C MP #### [facility] [address] [address] [address] Lamar Lin Globulin (S) [Mass/Vol] 3.7 g/dL Normal [facility] Comment on above: Performed By: #### C MP #### [facility] [address] [address] [address] Lamar Lin Glucose [Mass/Vol] 132 mg/dL Critically high 74-106 [facility] Comment on above: Performed By: #### C MP #### [facility] [address] [address] [address] Lamar Lin Potassium [Moles/Vol] 4.4 mmol/L Normal 3.5-5.1 [facility] Comment on above: Performed By: #### C MP #### [facility] [address] [address] [address] Lamar Lin Protein [Mass/Vol] 6.6 g/dL Normal 6.4-8.2 [facility] Comment on above: Performed By: #### C MP #### [facility] [address] [address] [address] Lamar Lin Sodium [Moles/Vol] 145 mmol/L Normal 136-145 [facility] Comment on above: Performed By: #### C MP #### [facility] [address] [place], [place] [address] Dr. Lamar Lin Urea nitrogen [Mass/Vol] 28.0 mg/dL Critically high 7.0-18.0 [facility] Comment on above: Performed By: #### C MP #### [facility] [address] [place], [place] [address] Dr. Lamar Lin Urea nitrogen/Creatinine [Mass ratio] 29.2 mg/mg Normal [facility] Comment on above: Performed By: #### C MP #### [facility] [address] [place], [place] [address] Dr. Lamar Lin A1C with Estimated Average G [facility] 08-19-2022 HbA1c (Bld) [Mass fraction] 6.500 % High 4.3-5.6 % [facility] Other HbA1c (Bld) [Mass fraction] 140 mg/dL [facility] Other Comprehensive Metabolic Pane [facility] 08-19-2022 Albumin [Mass/Vol] 3.525614 g/dL Normal 3.5-5.7 g/dL [facility] Other Albumin/Globulin [Mass ratio] 1.7 {ratio} [facility] Other ALP [Catalytic activity/Vol] 56 U/L Normal 34-104 U/L [facility] Other ALT [Catalytic activity/Vol] 14 U/L Normal 7-52 U/L [facility] Other AST [Catalytic activity/Vol] 15 U/L Normal 13-39 U/L [facility] Other Bilirubin [Mass/Vol] 0.9335049 mg/dL Low 0.3- 1.0 mg/dL [facility] Other Calcium [Mass/Vol] 9.7024987 mg/dL Normal 8.6-10 .3 mg/dL [facility] Other Chloride [Moles/Vol] 103 mmol/L Normal 98-107 mmol/L [facility] Other CO2 [Moles/Vol] 34.53401420 mmol/L High 21.0-3 1.0 mmol/L [facility] Other Creatinine [Mass/Vol] 0.72627415 mg/dL Normal 0. 60-1.20 mg/dL [facility] Other GFR/1.73 sq M.predicted MDRD (S/P/Bld) [Vol rate/Area] mL/min/{1.73_m2} [facility] Other Glucose [Mass/Vol] 156 mg/dL High 70-100 mg/dL [facility] Other Potassium [Moles/Vol] 4.33394774 mmol/L Normal 3 .5-5.1 mmol/L [facility] Other Protein [Mass/Vol] 5.012525 g/dL Low 6.4-8.9 g/dL [facility] Other Sodium [Moles/Vol] 144 mmol/L Normal 136-145 mmol/L [facility] Other Urea nitrogen [Mass/Vol] 24 mg/dL Normal 7-25 mg/dL [facility] Other Comprehensive Metabolic Panel 2.1 g/dL [facility] Other Glucose - [facility] Glucose [Mass/Vol] 205 mg/dL [facility] Other Lipid Panelon 08-19-2022 Cholesterol [Mass/Vol] 172 mg/dL Normal 140-2 00 mg/dL [facility] Other Cholesterol in HDL [Mass/Vol] 33 mg/dL Low 35-85 mg/dL [facility] Other Cholesterol in LDL Elph Qn 95 mg/dL Normal 0-100 mg/dL [facility] Other Cholesterol.total/Chol esterol in HDL [Mass ratio] 5.2 {ratio} <5.0 [facility] Other Lipid Panel 219 mg/dL High 0-149 mg/dL [facility] Other Lipid Panel 43 mg/dL [facility] Other MicroAlb Creat Ratio,Uon Albumin DL <= 20 mg/L (U) [Mass/Vol] mg/dL High 0.0-1.8 [facility] Other Albumin/Creatinine DL <= 20 mg/L (U) [Mass ratio] TNP 0.0-30.0 [facility] Other Creatinine (U) [Mass/Vol] 52.3755396 mg/dL [facility] Other Vitamin B12on 08-19-2022 Cobalamin (Vitamin B12) [Mass/Vol] 345 pg/mL Normal 180-914 pg/mL [facility] Other A1C HEMOGLOBINon 02-27-2022 HbA1c (Bld) [Mass fraction] 6.1 % [facility] Other Glucose - [facility] Glucose [Mass/Vol] 159 mg/dL [facility] Other HbA1c (Bld) [Mass fraction]o n 02-27-2022 A1C HEMOGLOBIN [facility] [id number] Other FREE T4on 10-30-2021 Free T4 [Mass/Vol] 1.11 ng/dL Normal 0.76-1.46 [facility] Comment on above: Performed By: #### F T4 #### [facility] [address] [place] [address] [id number] [address] Lamar Lin T4on 10-30-2021 T4 [Mass/Vol] 8.30 ug/dL Normal 4.80-13.90 [facility] Comment on above: Performed By: #### T 4, TSH #### [facility] [address] [address] [address] Lamar Lin TSHon 10-30-2021 TSH 2.475 uIU/mL Normal 0.358-3.74 0 [facility] Comment on above: Performed By: #### T 4, TSH #### [facility] [address] [address] [address] Lamar Lin Glucoseon 05-23-2021 Glucose [Mass/Vol] 167 mg/dL [facility] Other Vital Signs Date Time Vital Sign Value Performing Clinician Facility 08-17-2024 14:03-0400 Body height 152.4 cm [facility] 08-17-2024 14:03-0400 Body mass index (BMI) [Ratio] 38.2 kg/m2 [facility] 08-17-2024 14:03-0400 Body weight 88.96 kg [facility] 08-17-2024 14:03-0400 Diastolic blood pressure 70 mm[Hg] [facility] 08-17-2024 14:03-0400 Heart rate 60 /min [facility] 08-17-2024 14:03-0400 Respiratory rate 18 /min [facility] 08-17-2024 14:03-0400 SaO2% (BldA) [Mass fraction] 94 % [facility] 08-17-2024 14:03-0400 Systolic blood pressure 132 mm[Hg] [facility] 08-05-2024 13:03-0400 Body height 165.1 cm Kaity Leija MD Work Phone: [facility] 08-05-2024 13:03-0400 Body mass index (BMI) [Ratio] 33.15 kg/m2 Kaity Leija MD Work Phone: [facility] 08-05-2024 13:03-0400 Body weight 90.36 kg Kaity Leija MD Work Phone: [facility] 08-05-2024 13:03-0400 Diastolic blood pressure 58 mm[Hg] Kaity Leija MD Work Phone: [facility] 08-05-2024 13:03-0400 Heart rate 59 /min Kaity Leija MD Work Phone: [facility] 08-05-2024 13:03-0400 Systolic blood pressure 116 mm[Hg] Kaity Leija MD Work Phone: [facility] 07-27-2024 13:51-0400 Body height 152.4 cm [facility] 07-27-2024 13:51-0400 Body mass index (BMI) [Ratio] 40.4 kg/m2 [facility] 07-27-2024 13:51-0400 Body weight 93.89 kg [facility] 07-27-2024 13:51-0400 Diastolic blood pressure 64 mm[Hg] [facility] 07-27-2024 13:51-0400 Heart rate 66 /min [facility] 07-27-2024 13:51-0400 Inhaled oxygen flow rate 2 L/min [facility] 07-27-2024 13:51-0400 Respiratory rate 18 /min [facility] 07-27-2024 13:51-0400 SaO2% (BldA) [Mass fraction] 97 % [facility] 07-27-2024 13:51-0400 Systolic blood pressure 115 mm[Hg] [facility] 2024 09:55-0500 Body height 152.4 cm [facility] 2024 09:55-0500 Body mass index (BMI) [Ratio] 42.6 kg/m2 [facility] 2024 09:55-0500 Body temperature 98.2 [degF] [facility] 2024 09:55-0500 Body weight 99.05 kg [facility] 2024 09:55-0500 Diastolic blood pressure 68 mm[Hg] [facility] 2024 09:55-0500 Heart rate 71 /min [facility] 2024 09:55-0500 Inhaled oxygen flow rate 2 L/min [facility] 2024 09:55-0500 Respiratory rate 20 /min [facility] 2024 09:55-0500 SaO2% (BldA) [Mass fraction] 95 % [facility] 2024 09:55-0500 Systolic blood pressure 145 mm[Hg] [facility] 06-17-2024 13:57-0500 Body height 152.4 cm [facility] 06-17-2024 13:57-0500 Body mass index (BMI) [Ratio] 39.6 kg/m2 [facility] 06-17-2024 13:57-0500 Body weight 92.19 kg [facility] 06-17-2024 13:57-0500 Diastolic blood pressure 61 mm[Hg] [facility] 06-17-2024 13:57-0500 Heart rate 66 /min [facility] 06-17-2024 13:57-0500 Respiratory rate 16 /min [facility] 06-17-2024 13:57-0500 SaO2% (BldA) [Mass fraction] 98 % [facility] 06-17-2024 13:57-0500 Systolic blood pressure 118 mm[Hg] [facility] 06-14-2024 13:56-0500 Body height 152.4 cm [facility] 06-14-2024 13:56-0500 Body mass index (BMI) [Ratio] 40.2 kg/m2 [facility] 06-14-2024 13:56-0500 Body weight 93.52 kg [facility] 06-14-2024 13:56-0500 Diastolic blood pressure 79 mm[Hg] [facility] 06-14-2024 13:56-0500 Heart rate 73 /min [facility] 06-14-2024 13:56-0500 Respiratory rate 18 /min [facility] 06-14-2024 13:56-0500 SaO2% (BldA) [Mass fraction] 95 % [facility] 06-14-2024 13:56-0500 Systolic blood pressure 158 mm[Hg] [facility] 06-03-2024 11:34-0500 Body height 152.4 cm [facility] 06-03-2024 11:34-0500 Body mass index (BMI) [Ratio] 39.4 kg/m2 [facility] 06-03-2024 11:34-0500 Body temperature 97 [degF] [facility] 06-03-2024 11:34-0500 Body weight 91.73 kg [facility] 06-03-2024 11:34-0500 Diastolic blood pressure 59 mm[Hg] [facility] 06-03-2024 11:34-0500 Heart rate 72 /min [facility] 06-03-2024 11:34-0500 Respiratory rate 16 /min [facility] 06-03-2024 11:34-0500 SaO2% (BldA) [Mass fraction] 95 % [facility] 06-03-2024 11:34-0500 Systolic blood pressure 140 mm[Hg] [facility] 05-04-2024 11:13-0500 Body height 152.4 cm [facility] 05-04-2024 11:13-0500 Body mass index (BMI) [Ratio] 41.1 kg/m2 [facility] 05-04-2024 11:13-0500 Body temperature 97.6 [degF] [facility] 05-04-2024 11:13-0500 Body weight 95.42 kg [facility] 05-04-2024 11:13-0500 Diastolic blood pressure 68 mm[Hg] [facility] 05-04-2024 11:13-0500 Heart rate 70 /min [facility] 05-04-2024 11:13-0500 Inhaled oxygen flow rate 2 L/min [facility] 05-04-2024 11:13-0500 Respiratory rate 18 /min [facility] 05-04-2024 11:13-0500 SaO2% (BldA) [Mass fraction] 94 % [facility] 05-04-2024 11:13-0500 Systolic blood pressure 143 mm[Hg] [facility] 04-20-2024 13:22-0500 Body temperature 97.5 [degF] [facility] 04-20-2024 13:22-0500 Diastolic blood pressure 60 mm[Hg] [facility] 04-20-2024 13:22-0500 Heart rate 61 /min [facility] 04-20-2024 13:22-0500 Inhaled oxygen flow rate 2 L/min [facility] 04-20-2024 13:22-0500 SaO2% (BldA) [Mass fraction] 96 % [facility] 04-20-2024 13:22-0500 Systolic blood pressure 105 mm[Hg] [facility] 03-16-2024 13:41-0400 Body height 152.4 cm Luci Stalin DPM Work Phone: [facility] 03-16-2024 13:41-0400 Body mass index (BMI) [Ratio] 39.06 kg/m2 Luci Stalin DPM Work Phone: [facility] 03-16-2024 13:41-0400 Body weight 90.72 kg Luci Stalin DPM Work Phone: [facility] 03-02-2024 08:56-0400 Body height 152.4 cm [facility] 03-02-2024 08:56-0400 Body mass index (BMI) [Ratio] 39.4 kg/m2 [facility] 03-02-2024 08:56-0400 Body temperature 97.7 [degF] [facility] 03-02-2024 08:56-0400 Body weight 91.62 kg [facility] 03-02-2024 08:56-0400 Diastolic blood pressure 60 mm[Hg] [facility] 03-02-2024 08:56-0400 Heart rate 63 /min [facility] 03-02-2024 08:56-0400 Inhaled oxygen flow rate 2 L/min [facility] 03-02-2024 08:56-0400 Respiratory rate 18 /min [facility] 03-02-2024 08:56-0400 SaO2% (BldA) [Mass fraction] 97 % [facility] 03-02-2024 08:56-0400 Systolic blood pressure 114 mm[Hg] [facility] 02-10-2024 10:30-0400 Body height 152.4 cm [facility] 02-10-2024 10:30-0400 Body mass index (BMI) [Ratio] 38.7 kg/m2 [facility] 02-10-2024 10:30-0400 Body temperature 97.5 [degF] [facility] 02-10-2024 10:30-0400 Body weight 89.81 kg [facility] 02-10-2024 10:30-0400 Diastolic blood pressure 75 mm[Hg] [facility] 02-10-2024 10:30-0400 Heart rate 70 /min [facility] 02-10-2024 10:30-0400 Inhaled oxygen flow rate 2 L/min [facility] 02-10-2024 10:30-0400 Respiratory rate 18 /min [facility] 02-10-2024 10:30-0400 SaO2% (BldA) [Mass fraction] 97 % [facility] 02-10-2024 10:30-0400 Systolic blood pressure 160 mm[Hg] [facility] 01-27-2024 13:50-0400 Body height 152.4 cm [facility] 01-27-2024 13:50-0400 Body mass index (BMI) [Ratio] 39.6 kg/m2 [facility] 01-27-2024 13:50-0400 Body temperature 98.2 [degF] [facility] 01-27-2024 13:50-0400 Body weight 92.07 kg [facility] 01-27-2024 13:50-0400 Diastolic blood pressure 72 mm[Hg] [facility] 01-27-2024 13:50-0400 Heart rate 72 /min [facility] 01-27-2024 13:50-0400 Inhaled oxygen flow rate 2 L/min [facility] 01-27-2024 13:50-0400 Respiratory rate 18 /min [facility] 01-27-2024 13:50-0400 SaO2% (BldA) [Mass fraction] 98 % [facility] 01-27-2024 13:50-0400 Systolic blood pressure 166 mm[Hg] [facility] 01-13-2024 11:05-0400 Body height 152.4 cm [facility] 01-13-2024 11:05-0400 Body mass index (BMI) [Ratio] 39.6 kg/m2 [facility] 01-13-2024 11:05-0400 Body temperature 97.9 [degF] [facility] 01-13-2024 11:05-0400 Body weight 92 kg [facility] 01-13-2024 11:05-0400 Diastolic blood pressure 70 mm[Hg] [facility] 01-13-2024 11:05-0400 Heart rate 68 /min [facility] 01-13-2024 11:05-0400 Inhaled oxygen flow rate 2 L/min [facility] 01-13-2024 11:05-0400 Respiratory rate 18 /min [facility] 01-13-2024 11:05-0400 SaO2% (BldA) [Mass fraction] 96 % [facility] 01-13-2024 11:05-0400 Systolic blood pressure 128 mm[Hg] [facility] 12-30-2023 13:44-0400 Body height 152.4 cm [facility] 12-30-2023 13:44-0400 Body mass index (BMI) [Ratio] 39.6 kg/m2 [facility] 12-30-2023 13:44-0400 Body temperature 97.6 [degF] [facility] 12-30-2023 13:44-0400 Body weight 92.24 kg [facility] 12-30-2023 13:44-0400 Diastolic blood pressure 68 mm[Hg] [facility] 12-30-2023 13:44-0400 Heart rate 68 /min [facility] 12-30-2023 13:44-0400 Inhaled oxygen flow rate 2 L/min [facility] 12-30-2023 13:44-0400 Respiratory rate 18 /min [facility] 12-30-2023 13:44-0400 SaO2% (BldA) [Mass fraction] 96 % [facility] 12-30-2023 13:44-0400 Systolic blood pressure 131 mm[Hg] [facility] 12-11-2023 11:31-0400 Body height 152.4 cm [facility] 12-11-2023 11:31-0400 Body mass index (BMI) [Ratio] 40.8 kg/m2 [facility] 12-11-2023 11:31-0400 Body temperature 97.1 [degF] [facility] 12-11-2023 11:31-0400 Body weight 94.85 kg [facility] 12-11-2023 11:31-0400 Diastolic blood pressure 60 mm[Hg] [facility] 12-11-2023 11:31-0400 Heart rate 68 /min [facility] 12-11-2023 11:31-0400 Inhaled oxygen flow rate 2 L/min [facility] 12-11-2023 11:31-0400 Respiratory rate 18 /min [facility] 12-11-2023 11:31-0400 SaO2% (BldA) [Mass fraction] 95 % [facility] 12-11-2023 11:31-0400 Systolic blood pressure 130 mm[Hg] [facility] 12-08-2023 10:40-0400 Body height 152.4 cm [facility] 12-08-2023 10:40-0400 Body mass index (BMI) [Ratio] 40.8 kg/m2 [facility] 12-08-2023 10:40-0400 Body weight 94.97 kg [facility] 12-08-2023 10:40-0400 Diastolic blood pressure 61 mm[Hg] [facility] 12-08-2023 10:40-0400 Heart rate 56 /min [facility] 12-08-2023 10:40-0400 Respiratory rate 18 /min [facility] 12-08-2023 10:40-0400 SaO2% (BldA) [Mass fraction] 95 % [facility] 12-08-2023 10:40-0400 Systolic blood pressure 119 mm[Hg] [facility] 11-18-2023 10:03-0400 Body height 152.4 cm 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 Anika Elaine Work Phone: [facility] 11-18-2023 10:03-0400 Body mass index (BMI) [Ratio] 39.2 kg/m2 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 Anika Elaine Work Phone: [facility] 11-18-2023 10:03-0400 Body temperature 98 [degF] 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 Anika Elaine Work Phone: [facility] 11-18-2023 10:03-0400 Body weight 91.22 kg 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 Anika Elaine Work Phone: [facility] 11-18-2023 10:03-0400 Diastolic blood pressure 71 mm[Hg] 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 Ankia Elaine Work Phone: [facility] 11-18-2023 10:03-0400 Heart rate 70 /min 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 Anika Elaine Work Phone: [facility] 11-18-2023 10:03-0400 Inhaled oxygen flow rate 2 L/min 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 Anika Elaine Work Phone: [facility] 11-18-2023 10:03-0400 Respiratory rate 16 /min 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 Anika Elaine Work Phone: [facility] 11-18-2023 10:03-0400 SaO2% (BldA) [Mass fraction] 94 % 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 Anika Elaine Work Phone: [facility] 11-18-2023 10:03-0400 Systolic blood pressure 162 mm[Hg] 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 Anika Elaine Work Phone: [facility] 11-05-2023 14:04-0400 Body height 152.4 cm 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 Anika Elaine Work Phone: [facility] 11-05-2023 14:04-0400 Body mass index (BMI) [Ratio] 39 kg/m2 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 Anika Light Work Phone: [facility] 11-05-2023 14:04-0400 Body temperature 98.1 [degF] 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 Anika Light Work Phone: [facility] 11-05-2023 14:04-0400 Body weight 90.71 kg 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 Anika Light Work Phone: [facility] 11-05-2023 14:04-0400 Diastolic blood pressure 68 mm[Hg] 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 Anika Light Work Phone: [facility] 11-05-2023 14:04-0400 Heart rate 56 /min 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 Anika Light Work Phone: [facility] 11-05-2023 14:04-0400 Inhaled oxygen flow rate 2 L/min 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 Anika Light Work Phone: [facility] 11-05-2023 14:04-0400 Respiratory rate 18 /min 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 Anika Light Work Phone: [facility] 11-05-2023 14:04-0400 SaO2% (BldA) [Mass fraction] 92 % 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 Anika Light Work Phone: [facility] 11-05-2023 14:04-0400 Systolic blood pressure 136 mm[Hg] 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 Anika Light Work Phone: [facility] 10-15-2023 13:42-0400 Body height 152.4 cm 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 Anika Light Work Phone: [facility] 10-15-2023 13:42-0400 Body mass index (BMI) [Ratio] 38.7 kg/m2 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 Anika Light Work Phone: [facility] 10-15-2023 13:42-0400 Body temperature 97.6 [degF] 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 Anika Light Work Phone: [facility] 10-15-2023 13:42-0400 Body weight 90.03 kg 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 Anika Elaine Work Phone: [facility] 10-15-2023 13:42-0400 Diastolic blood pressure 70 mm[Hg] 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 Anika Elaine Work Phone: [facility] 10-15-2023 13:42-0400 Heart rate 60 /min 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 Anika Elaine Work Phone: [facility] 10-15-2023 13:42-0400 Inhaled oxygen flow rate 2 L/min 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 Anika Elaine Work Phone: [facility] 10-15-2023 13:42-0400 Respiratory rate 18 /min 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 Anika Elaine Work Phone: [facility] 10-15-2023 13:42-0400 SaO2% (BldA) [Mass fraction] 97 % 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 Anika Elaine Work Phone: [facility] 10-15-2023 13:42-0400 Systolic blood pressure 143 mm[Hg] 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 Anika Elaine Work Phone: [facility] 09-23-2023 09:37-0400 Body height 152.4 cm 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 Anika Elaine Work Phone: [facility] 09-23-2023 09:37-0400 Body mass index (BMI) [Ratio] 38.5 kg/m2 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 Anika Elaine Work Phone: [facility] 09-23-2023 09:37-0400 Body temperature 97.9 [degF] 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 Anika Elaine Work Phone: [facility] 09-23-2023 09:37-0400 Body weight 89.44 kg 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 Anika Elaine Work Phone: [facility] 09-23-2023 09:37-0400 Diastolic blood pressure 72 mm[Hg] 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 Anika Elaine Work Phone: [facility] 09-23-2023 09:37-0400 Heart rate 67 /min 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 Anika Elaine Work Phone: [facility] 09-23-2023 09:37-0400 Inhaled oxygen flow rate 2 L/min 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 Anika Elaine Work Phone: [facility] 09-23-2023 09:37-0400 Respiratory rate 18 /min 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 Anika Elaine Work Phone: [facility] 09-23-2023 09:37-0400 SaO2% (BldA) [Mass fraction] 97 % 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 Anika Elaine Work Phone: [facility] 09-23-2023 09:37-0400 Systolic blood pressure 149 mm[Hg] 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 Anika Elaine Work Phone: [facility] 09-09-2023 14:15-0400 Body height 152.4 cm 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 Anikasophy Marsmer Work Phone: [facility] 09-09-2023 14:15-0400 Body mass index (BMI) [Ratio] 38.9 kg/m2 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 Anikasophy Marsmer Work Phone: [facility] 09-09-2023 14:15-0400 Body temperature 97.2 [degF] 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 Anika Marsmer Work Phone: [facility] 09-09-2023 14:15-0400 Body weight 90.49 kg 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 Anika Elaine Work Phone: [facility] 09-09-2023 14:15-0400 Diastolic blood pressure 77 mm[Hg] 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 Anika Elaine Work Phone: [facility] 09-09-2023 14:15-0400 Heart rate 70 /min 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 Anika Elaine Work Phone: [facility] 09-09-2023 14:15-0400 Inhaled oxygen flow rate 2 L/min 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 Anika Elaine Work Phone: [facility] 09-09-2023 14:15-0400 Respiratory rate 18 /min 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 Anika Elaine Work Phone: [facility] 09-09-2023 14:15-0400 SaO2% (BldA) [Mass fraction] 97 % 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 Anika Elaine Work Phone: [facility] 09-09-2023 14:15-0400 Systolic blood pressure 147 mm[Hg] 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 Anika Elaine Work Phone: [facility] 09-01-2023 11:35-0400 Diastolic blood pressure 73 mm[Hg] 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 Anika Elaine Work Phone: [facility] 09-01-2023 11:35-0400 Heart rate 62 /min 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 Anika Elaine Work Phone: [facility] 09-01-2023 11:35-0400 Inhaled oxygen flow rate 2 L/min 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 Anika Elaine Work Phone: [facility] 09-01-2023 11:35-0400 Respiratory rate 18 /min 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 Anika Elaine Work Phone: [facility] 09-01-2023 11:35-0400 SaO2% (BldA) [Mass fraction] 96 % 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 Anika Elaine Work Phone: [facility] 09-01-2023 11:35-0400 Systolic blood pressure 164 mm[Hg] 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 Anika Elaine Work Phone: [facility] 09-01-2023 09:17-0400 Body height 152.4 cm 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 Anika Elaine Work Phone: [facility] 09-01-2023 09:17-0400 Body weight 93.44 kg 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 Anika Elaine Work Phone: [facility] 08-20-2023 10:20-0400 Body height 152.4 cm [facility] 08-20-2023 10:20-0400 Body mass index (BMI) [Ratio] 40.2 kg/m2 [facility] 08-20-2023 10:20-0400 Body weight 93.44 kg [facility] 08-20-2023 10:20-0400 Diastolic blood pressure 84 mm[Hg] [facility] 08-20-2023 10:20-0400 Heart rate 73 /min [facility] 08-20-2023 10:20-0400 Inhaled oxygen flow rate 2 L/min [facility] 08-20-2023 10:20-0400 Respiratory rate 18 /min [facility] 08-20-2023 10:20-0400 SaO2% (BldA) [Mass fraction] 94 % [facility] 08-20-2023 10:20-0400 Systolic blood pressure 176 mm[Hg] [facility] 08-13-2023 10:41-0400 Body height 152.4 cm [facility] 08-13-2023 10:41-0400 Body mass index (BMI) [Ratio] 40.1 kg/m2 [facility] 08-13-2023 10:41-0400 Body temperature 97.5 [degF] [facility] 08-13-2023 10:41-0400 Body weight 93.15 kg [facility] 08-13-2023 10:41-0400 Diastolic blood pressure 72 mm[Hg] [facility] 08-13-2023 10:41-0400 Heart rate 77 /min [facility] 08-13-2023 10:41-0400 Inhaled oxygen flow rate 2 L/min [facility] 08-13-2023 10:41-0400 Respiratory rate 20 /min [facility] 08-13-2023 10:41-0400 SaO2% (BldA) [Mass fraction] 95 % [facility] 08-13-2023 10:41-0400 Systolic blood pressure 162 mm[Hg] [facility] 04-22-2023 10:20-0500 Body height 152.4 cm Rin Ramirez Other [facility] 04-22-2023 10:20-0500 Body mass index (BMI) [Ratio] 39.64 kg/m2 Rin Ramirez Other [facility] Other 04-22-2023 10:20-0500 Body weight 92.08 kg Rin Ramirez Other [facility] Other 04-22-2023 10:20-0500 Body weight 92.07 kg [facility] 04-22-2023 10:20-0500 Diastolic blood pressure 70 mm[Hg] Rin Ramirez Other [facility] 04-22-2023 10:20-0500 Respiratory rate 18 /min Rin Ramirez Other [facility] Other 04-22-2023 10:20-0500 SaO2% (BldA) [Mass fraction] 97 % Rin Ramirez Other [facility] Other 04-22-2023 10:20-0500 Systolic blood pressure 138 mm[Hg] Rin Darbys Other [facility] 02-19-2023 09:15-0400 Body height 152.4 cm Tondra Mapus Other [facility] Other 02-19-2023 09:15-0400 Body mass index (BMI) [Ratio] 40.21 kg/m2 Tondra Mapus Other [facility] Other 02-19-2023 09:15-0400 Body weight 93.4 kg Tondra Mapus Other [facility] Other 02-19-2023 09:15-0400 Diastolic blood pressure 64 mm[Hg] Tondra Mapus Other [facility] Other 02-19-2023 09:15-0400 Respiratory rate 18 /min Tondra Mapus Other [facility] Other 02-19-2023 09:15-0400 SaO2% (BldA) [Mass fraction] 95 % Tondra Mapus Other [facility] Other 02-19-2023 09:15-0400 Systolic blood pressure 129 mm[Hg] Tondra Mapus Other [facility] Other 02-12-2023 09:00-0400 Body height 152.4 cm Tondra Mapus Other [facility] Other 02-12-2023 09:00-0400 Body mass index (BMI) [Ratio] 40.07 kg/m2 Tondra Mapus Other [facility] Other 02-12-2023 09:00-0400 Body weight 93.08 kg Tondra Mapus Other [facility] Other 10-22-2022 10:00-0400 Body height 152.4 cm Domingowalter [facility] Other [facility] Other 10-22-2022 10:00-0400 Body mass index (BMI) [Ratio] 40.23 kg/m2 Aziz [facility] Other [facility] Other 10-22-2022 10:00-0400 Body temperature 97.4 [degF] Azwalter [facility] Other [facility] Other 10-22-2022 10:00-0400 Body weight 93.44 kg Rin Ramirez Other [facility] Other 10-22-2022 10:00-0400 Diastolic blood pressure 78 mm[Hg] Rin Darbys Other [facility] Other 10-22-2022 10:00-0400 Respiratory rate 20 /min Rin Ramirez Other [facility] Other 10-22-2022 10:00-0400 SaO2% (BldA) [Mass fraction] 92 % Rin Ramirez Other [facility] Other 10-22-2022 10:00-0400 Systolic blood pressure 146 mm[Hg] Rin Ramirez Other [facility] Other 08-19-2022 10:15-0400 Body height 152.4 cm Tondra Mapus Other [facility] Other 08-19-2022 10:15-0400 Body mass index (BMI) [Ratio] 39.82 kg/m2 Tondra Mapus Other [facility] Other 08-19-2022 10:15-0400 Body weight 92.49 kg Tondra Mapus Other [facility] Other 08-19-2022 10:15-0400 Diastolic blood pressure 63 mm[Hg] Tondra Mapus Other [facility] Other 08-19-2022 10:15-0400 Respiratory rate 20 /min Tondra Mapus Other [facility] Other 08-19-2022 10:15-0400 SaO2% (BldA) [Mass fraction] 95 % Tondra Mapus Other [facility] Other 08-19-2022 10:15-0400 Systolic blood pressure 136 mm[Hg] Tondra Mapus Other [facility] Other 02-27-2022 10:15-0400 Body height 152.4 cm Tondra Mapus Other [facility] Other 02-27-2022 10:15-0400 Body mass index (BMI) [Ratio] 41.79 kg/m2 Tondra Mapus Other [facility] Other 02-27-2022 10:15-0400 Body weight 97.07 kg Tondra Mapus Other [facility] Other 02-27-2022 10:15-0400 Diastolic blood pressure 55 mm[Hg] Tondra Mapus Other [facility] Other 02-27-2022 10:15-0400 Respiratory rate 20 /min Tondra Mapus Other [facility] Other 02-27-2022 10:15-0400 SaO2% (BldA) [Mass fraction] 97 % Tondra Mapus Other [facility] Other 02-27-2022 10:15-0400 Systolic blood pressure 130 mm[Hg] Tondra Mapus Other [facility] Other 10-23-2021 11:00-0400 Body height 152.4 cm Rin Ramirez Other [facility] Other 10-23-2021 11:00-0400 Body mass index (BMI) [Ratio] 44.05 kg/m2 Rin Ramirez Other [facility] Other 10-23-2021 11:00-0400 Body temperature 97.5 [degF] Rin Ramirez Other [facility] Other 10-23-2021 11:00-0400 Body weight 102.33 kg Rin Darbys Other [facility] Other 10-23-2021 11:00-0400 Diastolic blood pressure 72 mm[Hg] Rin Ramirez Other [facility] Other 10-23-2021 11:00-0400 Respiratory rate 20 /min Rin Ramirez Other [facility] Other 10-23-2021 11:00-0400 SaO2% (BldA) [Mass fraction] 94 % Rin Ramirez Other [facility] Other 10-23-2021 11:00-0400 Systolic blood pressure 135 mm[Hg] Rin Darbys Other [facility] Other 05-23-2021 10:15-0500 Body height 152.4 cm Chester Mullinsus Other [facility] Other 05-23-2021 10:15-0500 Body mass index (BMI) [Ratio] 43.25 kg/m2 Tona Mapus Other [facility] Other 05-23-2021 10:15-0500 Body weight 100.47 kg Tondra Mapus Other [facility] Other 05-23-2021 10:15-0500 Diastolic blood pressure 57 mm[Hg] Tondra Mapus Other [facility] Other 05-23-2021 10:15-0500 Respiratory rate 20 /min Tondra Mapus Other [facility] Other 05-23-2021 10:15-0500 SaO2% (BldA) [Mass fraction] 96 % Tondra Mapus Other [facility] Other 05-23-2021 10:15-0500 Systolic blood pressure 131 mm[Hg] Tondra Mapus Other [facility] Other Encounters Encounter Date Encounter Type Care Provider Facility Start: 08-25-2024 End: 08-25-[address] [facility] Start: 08-24-2024 End: 08-24-2024 [facility] Medication Management Comment on above: PAF (paroxysmal atri al fibrillation) ([facility]) (Primary Dx) Start: 08-24-2024 End: 08-24-[address] [facility] Start: 08-23-2024 End: 08-23-2024 Refill Concha Michele RN [facility] Comment on above: Med Refill Start: 08-17-2024 End: 08-17-2024 ambulatory [facility] Work Phone: Start: 08-17-2024 End: 08-17-2024 Patient encounter procedure [facility] Work Phone: Start: 08-05-2024 End: 08-05-2024 Office outpatient visit 25 minutes Kaity Leija MD Work Phone: [facility] Comment on above: PAF (paroxysmal atri al fibrillation) ([facility]) (Primary Dx); retirement current use of amiodarone; 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 ([facility]) Start: 08-05-2024 End: 08-05-2024 Follow-up encounter [facility] Medication Management Comment on above: PAF (paroxysmal atri al fibrillation) ([facility]) (Primary Dx) Start: 08-05-2024 End: 08-05-2024 ambulatory KAITY LEIJA [facility] Start: 08-04-2024 End: 08-04-2024 Telephone encounter Enedelia Livingston [facility] Cardiology Start: 08-04-2024 Non-patient / Non-visit [facility] Work Phone: Start: 07-27-2024 End: 07-27-2024 ambulatory [facility] Work Phone: Start: 07-27-2024 End: 07-27-2024 Patient encounter procedure [facility] Work Phone: Start: 07-20-2024 Non-patient / Non-visit [facility] Work Phone: Start: 07-14-2024 End: 07-14-2024 Follow-up encounter [facility] Medication Management Comment on above: PAF (paroxysmal atri al fibrillation) ([facility]) (Primary Dx) Start: 07-14-2024 End: 07-14-[address] [facility] MEDICATION MANAGEMENT [facility] Start: 2024 End: 2024 ambulatory [facility] Work Phone: Start: 2024 End: 2024 Patient encounter procedure [facility] Work Phone: Start: 06-30-2024 End: 06-30-2024 Bamboo flowsheet Luci Gant DPM Work Phone: [facility] Start: 06-30-2024 End: 06-30-2024 Bamboo flowsheet Luci Gant DPM Work Phone: [facility] Start: 06-30-2024 End: 06-30-2024 Patient encounter procedure Luci Gant DPM Work Phone: [facility] Comment on above: Dermatophytosis of n ail (Primary Dx); Dystrophic nail; Pain around toenail, right foot; Pain around toenail, left foot Start: 06-30-2024 End: 06-30-2024 ambulatory LUCI GANT Not Available Start: 06-17-2024 End: 06-17-2024 ambulatory [facility] Work Phone: Start: 06-17-2024 End: 06-17-2024 Patient encounter procedure [facility] Work Phone: Start: 06-16-2024 End: 06-16-2024 Follow-up encounter [facility] Medication Therapy Management Comment on above: PAF (paroxysmal atri al fibrillation) ([facility]) (Primary Dx) Start: 06-16-2024 End: 06-16-2024 ambulatory EUSEBIO ÁLVAREZ [facility] Start: 06-14-2024 End: 06-14-2024 ambulatory [facility] Work Phone: Start: 06-14-2024 End: 06-14-2024 Patient encounter procedure [facility] Work Phone: Start: 06-10-2024 Non-patient / Non-visit [facility] Work Phone: Start: 06-03-2024 End: 06-03-2024 ambulatory [facility] Work Phone: Start: 06-03-2024 End: 06-03-2024 Patient encounter procedure [facility] Work Phone: Start: 05-25-2024 Non-patient / Non-visit [facility] Work Phone: Start: 05-20-2024 End: 05-20-2024 Orders Only Alicia Galvan RN [facility] Pulmonary/Sleep Medicine Comment on above: SOB (shortness of br eath) (Primary Dx); Abnormal CXR Start: 05-17-2024 End: 05-17-2024 Follow-up encounter [facility] Medication Therapy Management Comment on above: PAF (paroxysmal atri al fibrillation) ([facility]) (Primary Dx) Start: 05-17-2024 End: 05-17-[address] [facility] MEDICATION MANAGEMENT [facility] Start: 05-14-2024 End: 05-14-2024 ambulatory [facility] Start: 05-10-2024 End: 05-10-2024 ambulatory [facility] Start: 05-07-2024 End: 05-10-2024 Refill Tr Jimenez MACHINIST MATE-TREASURY MANAGER Work Phone: [facility] Comment on above: Med Refill Start: 05-05-2024 End: 05-10-2024 Refill Tr Jimenez MACHINIST MATE-TREASURY MANAGER Work Phone: [facility] Comment on above: Med Refill Start: 05-04-2024 End: 05-04-2024 Patient encounter procedure [facility] Work Phone: Start: 05-03-2024 End: 05-03-2024 ambulatory [facility] Start: 04-28-2024 Non-patient / Non-visit [facility] Work Phone: Start: 04-20-2024 End: 04-20-2024 Patient encounter procedure [facility] Work Phone: Start: 04-14-2024 End: 04-14-2024 ambulatory [facility] Start: 04-13-2024 Non-patient / Non-visit [facility] Work Phone: Start: 04-07-2024 End: 04-07-2024 ambulatory ANITA E NADINE [facility] Start: 03-30-2024 End: 03-30-2024 ambulatory [facility] Work Phone: Start: 03-30-2024 End: 03-30-2024 Patient encounter procedure [facility] Work Phone: Start: 03-23-2024 End: 03-23-2024 ambulatory [facility] Work Phone: Start: 03-23-2024 End: 03-23-2024 Patient encounter procedure [facility] Work Phone: Start: 03-17-2024 Non-patient / Non-visit [facility] Work Phone: Start: 03-16-2024 End: 03-16-2024 Bamboo flowsheet Luci Gant DPM Work Phone: [facility] Start: 03-16-2024 End: 03-16-2024 Bamboo flowsheet Luci Gant DPM Work Phone: [facility] Start: 03-16-2024 End: 03-16-2024 ambulatory LUCI GANT Not Available Start: 03-16-2024 End: 03-16-2024 Patient encounter procedure Luci Gant DPM Work Phone: [facility] Comment on above: Dermatophytosis of n ail (Primary Dx); Dystrophic nail; Pain around toenail, right foot; Pain around toenail, left foot Start: 03-03-2024 End: 03-03-2024 ambulatory [facility] Start: 03-02-2024 End: 03-02-2024 ambulatory [facility] Work Phone: Start: 03-02-2024 End: 03-02-2024 Patient encounter procedure [facility] Work Phone: Start: 02-23-2024 Non-patient / Non-visit [facility] Work Phone: Start: 02-10-2024 End: 02-10-2024 ambulatory [facility] Work Phone: Start: 02-10-2024 End: 02-10-2024 Patient encounter procedure [facility] Work Phone: Start: 02-03-2024 Non-patient / Non-visit [facility] Work Phone: Start: 01-28-2024 End: 01-28-2024 ambulatory [facility] Start: 01-27-2024 End: 01-27-2024 ambulatory [facility] Work Phone: Start: 01-27-2024 End: 01-27-2024 Patient encounter procedure [facility] Work Phone: Start: 01-23-2024 Non-patient / Non-visit [facility] Work Phone: Start: 01-20-2024 Non-patient / Non-visit [facility] Work Phone: Start: 01-13-2024 End: 01-13-2024 ambulatory [facility] Work Phone: Start: 01-13-2024 End: 01-13-2024 Patient encounter procedure [facility] Work Phone: Start: 01-05-2024 Non-patient / Non-visit [facility] Work Phone: Start: 12-31-2023 End: 12-31-2023 ambulatory [facility] Start: 12-30-2023 End: 12-30-2023 ambulatory [facility] Work Phone: Start: 12-30-2023 End: 12-30-2023 Patient encounter procedure [facility] Ne[facility] Work Phone: Start: 12-11-2023 End: 12-11-2023 ambulatory LUCI A MARY CARMEN Not Available Start: 12-11-2023 End: 12-11-2023 ambulatory [facility] Work Phone: Start: 12-11-2023 End: 12-11-2023 Patient encounter procedure [facility] Work Phone: Start: 12-08-2023 End: 12-08-2023 ambulatory [facility] Work Phone: Start: 12-08-2023 End: 12-08-2023 Patient encounter procedure [facility] Work Phone: Start: 12-03-2023 End: 12-03-2023 [facility] Start: 11-27-2023 Non-patient / Non-visit [facility] Work Phone: Start: 11-18-2023 End: 11-18-2023 ambulatory 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 Anika Light Work Phone: [facility] Work Phone: Start: 11-18-2023 End: 11-18-2023 Patient encounter procedure 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 Anika Light Work Phone: [facility] Nephrology Work Phone: Start: 11-13-2023 Non-patient / Non-visit 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 Vanesa Light Work Phone: [facility] Work Phone: Start: 11-12-2023 End: 11-12-2023 ambulatory [facility] Start: 11-05-2023 End: 11-05-2023 ambulatory 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 Anika Deepa Elaine Work Phone: [facility] Work Phone: Start: 11-05-2023 End: 11-05-2023 Patient encounter procedure 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 Anika Elaine Work Phone: [facility] Nephrology Work Phone: Start: 10-30-2023 Non-patient / Non-visit 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 P mellissa Elaine Work Phone: [facility] Work Phone: Start: 10-27-2023 End: 10-27-2023 ambulatory [facility] Start: 10-22-2023 End: 10-22-2023 ambulatory [facility]OB[facility] SERVICE [facility] Start: 10-15-2023 End: 10-15-2023 ambulatory 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 Anika Deepa Elaine Work Phone: [facility] Work Phone: Start: 10-15-2023 End: 10-15-2023 Patient encounter procedure 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 Anika Elaine Work Phone: [facility] Nephrology Work Phone: Start: 10-08-2023 End: 10-08-2023 ambulatory [facility] Start: 10-07-2023 Non-patient / Non-visit 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 P mellissa Elaine Work Phone: [facility] Work Phone: Start: 09-23-2023 End: 09-23-2023 ambulatory [facility] Start: 09-23-2023 End: 09-23-2023 ambulatory 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 Anikasophy Light Work Phone: [facility] Work Phone: Start: 09-23-2023 End: 09-23-2023 Patient encounter procedure 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 Anika Marsmer Work Phone: [facility] Nephrology Work Phone: Start: 09-16-2023 End: 09-16-2023 ambulatory [facility] Start: 09-16-2023 Non-patient / Non-visit 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 P mellissa Elaine Work Phone[facility] Work Phone: Start: 09-11-2023 End: 09-11-2023 ambulatory LUCI GANT Not Available Start: 09-09-2023 End: 09-09-2023 ambulatory 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 Anikasophy Arenas Elaine Work Phone: [facility] Work Phone: Start: 09-09-2023 End: 09-09-2023 Patient encounter procedure 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 Anikasophy Light Work Phone: [facility] Nephrology Work Phone: Start: 09-01-2023 End: 09-01-2023 ambulatory Anika Light Facility:[facility] Start: 09-01-2023 End: 09-01-2023 Admission to same day surgery center 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 Anika Light Work Phone: [facility] [place] Work Phone: Start: 09-01-2023 End: 09-01-2023 ambulatory 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 Anika Deepa Elaine Work Phone: [facility] Work Phone: Start: 08-20-2023 End: 08-20-2023 ambulatory [facility] Work Phone: Start: 08-20-2023 End: 08-20-2023 Patient encounter procedure [facility] Work Phone: Start: 08-13-2023 End: 08-13-2023 ambulatory [facility] Work Phone: Start: 08-13-2023 End: 08-13-2023 Patient encounter procedure [facility] Nephrology Work Phone: Start: 08-05-2023 Non-patient / Non-visit [facility] Work Phone: Start: 08-01-2023 Non-patient / Non-visit [facility] Work Phone: Start: 06-09-2023 End: 06-09-2023 ambulatory Tondra Mapus Other [facility] Other Start: 06-09-2023 Telephone encounter Tondra Mapus [facility] Start: 06-03-2023 End: 06-03-2023 ambulatory Aziz Bakhous Other [facility] Other Start: 06-03-2023 Telephone encounter Aziz Bakhous [facility] Start: 05-27-2023 End: 05-27-2023 ambulatory Tondra Mapus Other [facility] Other Start: 05-27-2023 Telephone encounter Tondra Mapus [facility] Start: 04-23-2023 End: 04-23-2023 ambulatory Aziz Bakhous Other [facility] Other Start: 04-23-2023 Telephone encounter Aziz Bakhous [facility] Start: 04-22-2023 End: 04-22-2023 ambulatory Aziz Bakhous Other [facility] Other Start: 04-22-2023 Office outpatient vi sit 25 minutes Aziz Bakhous [facility] Nephrology Start: 04-22-2023 End: 04-22-2023 Patient encounter procedure [facility] Nephrology Work Phone: Start: 04-21-2023 End: 04-21-2023 ambulatory Aziz Bakhous Other [facility] Other Start: 04-21-2023 Telephone encounter Aziz Bakhous [facility] Start: 02-19-2023 (DM) Diabetes Tondra Delia [facility] Start: 02-19-2023 End: 02-20-2023 ambulatory PHYSICIAN NO FAM[facility] Other Start: 02-12-2023 End: 02-12-2023 ambulatory Tondra Mapus Other [facility] Other Start: 02-12-2023 Nursing evaluation o f patient and report Tondra Susannaus [facility] Start: 01-24-2023 End: 01-24-2023 ambulatory Tondra Mapus Other [facility] Other Start: 01-24-2023 Telephone encounter Tondra Mapus [facility] Start: 10-30-2022 End: 10-30-2022 ambulatory Tondra Mapus Other [facility] Other Start: 10-30-2022 Telephone encounter Tondra Mapus [facility] Start: 10-22-2022 End: 10-22-2022 ambulatory Aziz Bakhous Other [facility] Other Start: 10-22-2022 Office outpatient vi sit 25 minutes Aziz Bakhous [facility] Start: 10-16-2022 ambulatory ANIKA ELAINE Facility: [facility] Start: 08-20-2022 End: 08-20-2022 ambulatory Tondra Mapus Other [facility] Other Start: 08-20-2022 Telephone encounter Tondra Mapus [facility] Endocrinology Start: 08-19-2022 (DM) Diabetes Tondra Mapus [facility] Start: 08-19-2022 End: 08-19-2022 ambulatory Tondra Mapus Other [facility] Other Start: 08-02-2022 End: 08-02-2022 ambulatory Tondra Mapus Other [facility] Other Start: 08-02-2022 Telephone encounter Tondra Mapus [facility] Start: 05-30-2022 End: 05-30-2022 ambulatory Tondra Mapus Other [facility] Other Start: 05-30-2022 Telephone encounter Tondra Mapus [facility] Start: 05-01-2022 End: 05-01-2022 ambulatory Tondra Mapus Other [facility] Other Start: 05-01-2022 Telephone encounter Tondra Mapus [facility] Start: 04-01-2022 End: 04-01-2022 ambulatory Tondra Mapus Other [facility] Other Start: 04-01-2022 Telephone encounter Tondra Mapus [facility] Start: 02-27-2022 (DM) Diabetes Tondra Mapus [facility] Start: 02-27-2022 End: 02-27-2022 ambulatory Tondra Mapus Other [facility] Other Start: 01-28-2022 End: 01-28-2022 ambulatory Becca Michael Other [facility] Other Start: 01-28-2022 Telephone encounter Becca Michael [facility] Start: 01-09-2022 End: 01-09-2022 ambulatory Tondra Mapus Other [facility] Other Start: 01-09-2022 Telephone encounter Tondra Mapus [facility] Start: 12-31-2021 End: 12-31-2021 ambulatory Tondra Mapus Other [facility] Other Start: 12-31-2021 Telephone encounter Tondra Mapus [facility] Start: 12-17-2021 End: 12-17-2021 ambulatory Tondra Mapus Other [facility] Other Start: 12-17-2021 Telephone encounter Tondra Mapus [facility] Start: 11-25-2021 End: 11-25-2021 ambulatory Tondra Mapus Other [facility] Other Start: 11-25-2021 Telephone encounter Tondra Mapus [facility] Start: 11-02-2021 (FCCC INJ) FCCC Injection Marixa Fitt [facility] Start: 11-02-2021 End: 11-02-2021 ambulatory Marixa Fitt Other [facility] Other Start: 10-30-2021 End: 10-31-2021 ambulatory ANIKA ELAINE Facility:[facility] Start: 10-26-2021 End: 10-26-2021 ambulatory Tondra Mapus Other [facility] Other Start: 10-26-2021 Telephone encounter Tondra Mapus [facility] Start: 10-23-2021 End: 10-23-2021 ambulatory Azwalter Darbys Other [facility] Other Start: 10-23-2021 Office outpatient vi sit 15 minutes Rin Ramirez [facility] Start: 10-22-2021 End: 10-22-2021 ambulatory Tondra Mapus Other [facility] Other Start: 10-22-2021 Telephone encounter Tondra Mapus [facility] Start: 09-10-2021 End: 09-10-2021 ambulatory Tondra Mapus Other [facility] Other Start: 09-10-2021 Telephone encounter Tondra Mapus [facility] Start: 05-23-2021 (DM) Diabetes Tondra Mapus [facility] Start: 05-23-2021 End: 05-23-2021 ambulatory Tondra Mapus Other [facility] Other Procedures Date Procedure Procedure Detail Performing Clinician Start: 08-24-2024 Prothrombin time [facility] Work Phone: Start: 08-05-2024 Prothrombin time [facility] Work Phone: Start: 08-05-2024 Ecg routine ecg w/le ast 12 lds w/i&r Kaity Leija MD Work Phone: Start: 08-05-2024 Follow-up visit Follow-up KAITY LEIJA Start: 07-14-2024 Prothrombin time [facility] Work Phone: Start: 06-16-2024 Prothrombin time [facility] Work Phone: Start: 05-17-2024 Prothrombin time [employer] [facility] Work Phone: Start: 09-01-2023 Needle biopsy 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 Charity Tapia Work Phone: Start: 05-09-2023 Adult depression scr eening assessment Tr Jimenez MACHINIST MATE-TREASURY MANAGER Work Phone: Start: 02-14-2014 Colonoscopy Tr calvo MACHINIST MATE-TREASURY MANAGER Work Phone: Plan of Treatment Date Care Activity Detail Author Start: 08-05-2025 Tobacco Screening Tobacco Screening [facility] Start: 05-14-2025 Tobacco Screening Tobacco Screening [facility] Start: 01-17-2025 Influenza vaccination Influenza Vacc ine [facility] Start: 11-15-2024 End: 11-15-2024 Patient encounter procedure 11/15/2024 2:15 PM EDT Office Visit [facility] [address] [place] [id number] Anita Mccoy MD [address] [place] [address] [facility] Start: 10-26-2024 Tobacco Screening Tobacco Screening [facility] Start: 09-10-2024 End: 09-10-2024 Follow-up encounter 09/10/2024 1:00 PM EDT Follow Up Anticoagulation [facility] [address] [place] [address] [facility] Start: 08-24-2024 End: 08-24-2024 Follow-up encounter 08/24/2024 3:00 PM EDT Follow Up Anticoagulation [facility] [address] [place] [address] [facility] Start: 08-05-2024 End: 08-05-2024 Patient encounter procedure [facility] Comment on above: Arrived Start: 08-05-2024 End: 08-05-2024 Follow-up encounter 08/05/2024 12:45 PM EDT Follow Up Anticoagulation [facility] [address] [place] [address] [facility] Start: 07-14-2024 End: 07-14-2024 Follow-up encounter 07/14/2024 1:15 PM EST Follow Up Anticoagulation [facility] Medication Therapy Management [address] [place] [address] [facility] Start: 06-30-2024 End: 06-30-2024 Patient encounter procedure 06/30/2024 1:30 PM EST Procedure Visit [facility] [address] [place] [phone] Luci Gant, DPDonte [address] [place] [address] Arrived [facility] Comment on above: Arrived Start: 06-16-2024 End: 06-16-2024 Follow-up encounter 06/16/2024 1:00 PM EST Follow Up Anticoagulation [facility] Medication Therapy Management [address] [place] [address] [facility] Start: 05-20-2024 End: 05-20-2025 CT Chest WO contrast CT chest without contrast Imaging Routine SOB (shortness of breath) Abnormal CXR Expected: 05/20/2024, Expires: 05/20/2025 [employer] Work Phone: Comment on above: Expected: 05/20/2024 , Expires: 05/20/2025 Start: 05-17-2024 End: 05-17-2024 Follow-up encounter 05/17/2024 2:15 PM EST Follow Up Anticoagulation [facility] Medication Therapy Management [address] [facility] [place] [address] [facility] Start: 05-10-2024 End: 05-10-2025 XR Chest PA and Lateral X-ray chest 2 views Imaging Routine PAF (paroxysmal 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) ([facility]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 Expected: 05/10/2024, Expires: 05/10/2025 [employer] Work Phone: Comment on above: Expected: 05/10/2024 , Expires: 05/10/2025 Start: 05-09-2024 Depression Screening Depression Scre ening [facility] Start: 01-18-2024 Influenza vaccination Influenza Vacc ine (#1) [facility] Start: 09-01-2023 [facility] Start: 09-01-2023 CT guided biopsy [facility] Start: 09-01-[address] guided biopsy [facility] Start: 02-14-2017 Screening for malign ant neoplasm of colon Colonoscopy [facility] Start: 2005 Fall Risk Screening Fall Risk Screen ing [facility] Start: 1990 Administration of varicella zoster vaccine Zoster (Shingles) Vaccine (1 of 2) [facility] Start: 1959 DTaP,Tdap and Td Vaccines (1 - Tdap) DTaP,Tdap and Td Vaccines (1 - Tdap) [facility] aPTT in Platelet poo r plasma by Coagulation assay [facility] CT Abdomen and Pelvi s WO contrast [facility] CT guided biopsy [facility] Patient Education [facility] Work Phone: POCT EKG POCT EKG ECG Rou chacorta PAF (paroxysmal 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) ([facility]) retirement current use of amiodarone 08/05/2024 1:14 PM EDT [facility] Work Phone: Renal function 2000 panel - Serum or Plasma [facility] Renal function 2000 panel - Serum or Plasma [facility] Renal function 2000 panel - Serum or Plasma [facility] Renal function 2000 panel - Serum or Plasma [facility] Renal function 2000 panel - Serum or Plasma [facility] Renal function 2000 panel - Serum or Plasma [facility] Renal function 2000 panel - Serum or Plasma [facility] Renal function 2000 panel - Serum or Plasma [facility] Renal function 2000 panel - Serum or Plasma [facility] Renal function 2000 panel - Serum or Plasma [facility] Renal function 2000 panel - Serum or Plasma [facility] Renal function 2000 panel - Serum or Plasma [facility] Renal function 2000 panel - Serum or Plasma [facility] Immunizations Immunization Date Immunization Notes Care Provider Fa [facility] 04-03-2024 influenza virus vacc ine, unspecified formulation Luci Gant DPM Work Phone: [facility] 02-19-2023 ABRYSVO - Respirator y syncytial virus (RSV), vaccine, bivalent, protein subunit RSV prefusion F, diluent reconstituted, 0.5 mL, PF Luci Gant DPM Work Phone: [facility] 02-19-2023 Influenza, Seasonal, Quadrivalent, Adjuvanted Luci Gant DPM Work Phone: [facility] 02-19-2023 SARS-COV-2 (COVID-19 ) vaccine, mRNA, spike protein, LNP, PF, anthony-sucrose, 30 mcg/0.3 mL Luci Gant DPM Work Phone: [facility] 02-19-2023 influenza virus vacc ine, unspecified formulation Luci Gant DPM Work Phone: [facility] 03-11-2022 influenza virus vacc ine, unspecified formulation Luci Gant DPM Work Phone: [facility] 05-12-2021 influenza virus vacc ine, unspecified formulation Luci Gant DPM Work Phone: [facility] 03-12-2021 Influenza, High-dose Seasonal, Quadrivalent, Preservative Free Luci Gant DPM Work Phone: [facility] 08-04-2020 COVID-19 Vaccine Cricket ssen - Documentation Purposes Only Chester Mullinsus Other [facility] 02-09-2020 Influenza, High-dose Seasonal, Quadrivalent, Preservative Free Luci Rusher DPM Work Phone: [facility] 02-01-2020 influenza virus vacc ine, unspecified formulation Luci Rusher DPM Work Phone: [facility] 01-21-2018 influenza, high dose seasonal, preservative-free Luci Rusher DPM Work Phone: [facility] 06-19-2017 pneumococcal conjuga te vaccine, 13 valent Luci Rusher DPM Work Phone: [facility] 03-19-2017 influenza virus vacc ine, unspecified formulation Luci Rusher DPM Work Phone: [facility] 03-19-2016 seasonal influenza, intradermal, preservative free Luci Rusher DPM Work Phone: [facility] 02-06-2016 influenza, seasonal, injectable, preservative free Luci Rusher DPM Work Phone: [facility] 03-31-2015 pneumococcal conjuga te vaccine, 13 valent Luci Rusher DPM Work Phone: [facility] 03-28-2015 influenza, seasonal, injectable Chester Lin Other [facility] 03-19-2015 pneumococcal polysaccharide vaccine, 23 valent Luci Rusher DPM Work Phone: [facility] 02-14-2015 influenza, seasonal, injectable Luci Rusher DPM Work Phone: [facility] 03-31-2014 influenza, seasonal, injectable Luci Rusher DPM Work Phone: [facility] 03-04-2012 influenza virus vacc ine, whole virus Luci Rusher DPM Work Phone: [facility] 03-04-2011 influenza virus vacc ine, whole virus Luci Rusher DPM Work Phone: [facility] Healthcare Payers Date Payer Category Payer Medicare (Managed Care) DODIE Kent [facility] Member Subscriber Plan / Payer (Effective 2021-Present) Name: Margie Martínez Relation to Subscriber: Self Name: Margie Martínez Payer ID: Not on file Group ID: [id number] Type: Not on file Address: [address] [place] [id number] 2017 Self-pay [id number] 2017 Unknown [id number] 2015 Medicare HMO [employer] Member Subscriber Plan / Payer (Effective 2015-Present) Name: Margie Martínez Relation to Subscriber: Self Name: Margie Martínez Payer ID: [id number] (NAIC) Group ID: [id number] Type: Not on file Address: [address] [place] [id number] 1959 Medicare [id number] [id number] 1940 Unknown [id number] 2.16.840.1.488301.3.579. 2.593 1940 Unknown [id number] 2.16.840.1.661722.3.579. 2.593 1940 Unknown [id number] 2.16.840.1.987064.3.579. 2.1286 1940 Unknown [id number] 2.16.840.1.235931.3.579. 2.1286 1940 Unknown [id number] 2.16.840.1.045581.3.579. 2.1259 1940 Unknown [id number] 2.16.840.1.325266.3.579. 2.1259 1940 Unknown [id number] 2.16840.1.260877.3.579. 2.1259 1940 Unknown [id number] 2.16.840.1.082285.3.579. 2.1259 1940 Unknown [id number] 2.16840.1.474146.3.579. 2.128 1940 Unknown [id number] 2.840.1.257317.3.579. 2.128 1940 Unknown [id number] 2.840.1.331241.3.579. 2.128 1940 Unknown [id number] 2.840.1.077139.3.579. 2.128 1940 Unknown [id number] 2.16840.1.916896.3.579. 2.128 1940 Unknown [id number] 2.840.1.817256.3.579. 2.128 1940 Unknown [id number] 2.16840.1.581136.3.579. 2.128 1940 Unknown [id number] 2.16840.1.901145.3.579. 2.128 1940 Unknown [id number] 2.16840.1.268303.3.579. 2.128 1940 Unknown [id number] 2.16840.1.583208.3.579. 2.1286 1940 Unknown [id number] 2.16.840.1.096357.3.579. 2.1285 1940 Unknown [id number] 2.840.1.149310.3.579. 2.1285 1940 Unknown [id number] 2.840.1.994381.3.579. 2.1285 1940 Unknown [id number] 2.0.1.648096.3.579. 2.1285 1940 Unknown [id number] 2.0.1.818719.3.579. 2.1285 1940 Unknown [id number] 2.0.1.433251.3.579. 2.1285 1940 Unknown [id number] 2.0.1.173567.3.579. 2.1285 1940 Unknown [id number] 2.0.1.320778.3.579. 2.1285 1940 Unknown [id number] 2.0.1.818106.3.579. 2.1285 1940 Unknown [id number] 2.0.1.758883.3.579. 2.1285 1940 Unknown [id number] 2.0.1.614013.3.579. 2.1285 1940 Unknown [id number] 2.0.1.788268.3.579. 2.1285 1940 Unknown [id number] 2.0.1.152448.3.579. 2.1286 Unknown Regular Auto/Liability [id number] Unknown [id number] 2.840.1.537817.3.579. 2.531 Unknown [id number] 2.0.1.987080.3.579. 2.531 Social History Date Type Detail Facility Unknown if ever smoked [facility] Other Start: 06-29-2020 End: 12-11-2023 Sex Assigned At [facility] Other Start: 12-10-2020 End: 03-11-2022 Tobacco smoking status NHIS Never smoked tobacco (finding) [facility] Start: 1940 Sex Assigned At Female F [facility] Start: 03-11-2022 End: 11-20-2022 Tobacco use and exposure Smokeless tobacco non-user [facility] Start: 12-11-2023 End: 03-16-2024 Alcoholic beverage intake Ex-drinker (finding) [facility] Start: 06-29-2020 End: 12-11-2023 History of Social function [facility] Start: 1940 Sex assigned at Not on file N [facility] Start: 12-22-2014 End: 03-30-2024 Sex Female (finding) [facility] Start: 10-27-2023 End: 08-05-2024 Alcoholic beverage intake Current non-drinker of alcohol (finding) [facility] How often to you hav e a drink containing alcohol? Never [facility] How many standard drinks containing alcohol do you have on a typical day? Patient does not drink [facility] Medical Equipment Procedure Code Equipment Code Equipment Origin al Text Equipment Identifier Dates Start: 03-12-2017 Goals Date Patient Goal Desired Activity /State Personal health goal Comment on above: Formatting of this n ote might be different from the original. Evaluation of progress towards goal: return home self care with hsb support Clinical Notes 06-04-2020 to 08-24-2024 Alie Schumacher, [facility] - 08/24/2024 3:00 PM EDTTelephone Encounter - Concha Michele RN - 08/23/2024 11:25 AM EDTTelephone Encounter - Concha Michele RN - 08/23/2024 11:25 AM EDTPatient Instructions Note Date & Type Note Facility 08-24-2024 History of Present illness Narrative 15 minute [id number] follow-up anticoagulation appointment. INR performed in office per protocol. INR 3.7 (goal range: 2.0-3.0). Patient reports: Taking warfarin dosing as documented. Missed or extra doses of warfarin: No Changes to medications: YES Increased APAP 6 tabs per day Changes to lifestyle (diet / alcohol / smoking / activity): YES PO intake has been down-- appetite has been low Increased activity with caring for spouse Recent emergency department visit / hospitalization / health changes / new contraindication to current anticoagulant: No Signs/symptoms of bruising/bleeding or clotting or any intolerable adverse events: YEs Bruising noted hands Upcoming procedures: No Anticoagulant prescription needed: No Seen referring provider in the last year Duration of therapy reviewed Assessment: INR remains elevated despite 10% dose reduction. Patient has increased APAP due to pain from moving post-surgery. Appetite/PO intake has been down as well. We will hold x1, then reduce additional 11% Plan: Patient instructed to hold warfarin 08/24, then decrease to 2.5 mg Delmi and 1.25 mg AOD. Check INR in 2.5 week(s). Patient verbalizes understanding of anticoagulant dosing instructions and information discussed. Dosing regimen, counseling, and follow-up appointment were provided to the patient. Patient reminded to call with questions or any medication changes. Patient instructed to seek medical attention if any major bleeding/bleeding that persists or worsens. Alie Schumacher RPH 08/24/24 [id number] documented in this encounter [facility] 08-23-2024 Miscellaneous Notes Last OV 08/05/24 EKG 08/05/24 CXR 05/11/24 Pt having labs drawn tomorrow.slm documented in this encounter [facility] 08-23-2024 Telephone encounter Note Last OV 08/05/24 EKG 08/05/24 CXR 05/11/24 Pt having labs drawn tomorrow.slm [facility] 08-05-2024 History of Present illness Narrative Margie Martínez Date of visit: 08/05/2024 Date of : 1940 Age: 84 y.o. Patient Active Problem List Diagnosis COPD with acute exacerbation ([facility] Bigeminy Benign hypertensive heart disease without congestive heart failure Obstructive sleep apnea syndrome Shortness of breath Abnormal result of cardiovascular function study Class 3 severe obesity in adult ([facility]) Ventricular premature beats 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 ([facility]) PAF (paroxysmal 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) ([facility]) Sinus pause Allergies Allergen Reactions Janeth Inhibitors Other (See Comments) Bactrim [Sulfamethoxazole-Trimethoprim] Celecoxib Other (See Comments) High BP Ibuprofen GI Disturbance Penicillins Sulfa (Sulfonamide Antibiotics) Current Outpatient Medications Medication Sig Dispense Refill albuterol (PROVENTIL HFA;VENTOLIN HFA) 90 mcg/actuation inhaler Inhale 2 puffs every 6 (six) hours as needed for wheezing or shortness of breath. 54 g 3 amiodarone (PACERONE) 200 mg tablet TAKE 1 TABLET BY MOUTH IN THE MORNING 90 tablet 0 b complex vitamins capsule Take 1 capsule by mouth in the morning. bumetanide (BUMEX) 1 mg tablet Take 1 tablet (1 mg total) by mouth daily. (Patient taking differently: Take 1 tablet (1 mg total) by mouth 2 (two) times a day.) calcitrioL (ROCALTROL) 0.25 MCG capsule Take 1 capsule (0.25 mcg total) by mouth See Admin Instructions. MWF carvediloL (COREG) 12.5 mg tablet Take 1 tablet (12.5 mg total) by mouth in the morning and 1 tablet (12.5 mg total) before bedtime. 90 tablet 3 cholecalciferol, vitamin D3, 2,000 units tablet Take 1 tablet (2,000 Units total) by mouth in the morning. ferrous sulfate 325 (65 FE) MG tablet Take 1 tablet (325 mg total) by mouth in the morning and 1 tablet (325 mg total) in the evening. Take with meals. FREESTYLE KUSUM 2 SENSOR kit USE DIRECTED [...] 2 levothyroxine (SYNTHROID, LEVOTHROID) 125 MCG tablet take 1 tablet by mouth in the morning 90 tablet 2 LOKELMA 10 gram packet Take 10 g by mouth 3 (three) times a week. losartan (COZAAR) 100 mg tablet Take 1 tablet (100 mg total) by mouth in the morning. 90 tablet 3 NIFEdipine XL (PROCARDIA XL) 60 mg 24 hr tablet Take 1 tablet (60 mg total) by mouth in the morning. 90 tablet 2 omeprazole (PriLOSEC) 20 mg capsule Take 1 capsule (20 mg total) by mouth every morning before breakfast. oxygen Inhale once daily at bedtime. OZEMPIC 0.25 mg or 0.5 mg(2 mg/1.5 mL) pen injector INJECT 0.25MG SUBCUTANEOUSLY ONCE WEEKLY FOR 28 DAYS rosuvastatin (CRESTOR) 5 mg tablet TAKE 1 TABLET BY MOUTH IN THE MORNING 90 tablet 0 spironolactone (ALDACTONE) 25 mg tablet Take 1 tablet (25 mg total) by mouth 3 (three) times a week. warfarin (COUMADIN) 2.5 mg tablet Take 0.5-1 tablets (1.25-2.5 mg total) by mouth in the evening. 90 tablet 1 alendronate (FOSAMAX) 70 mg tablet Take 1 tablet (70 mg total) by mouth once a week. (Patient not taking: Reported on 08/05/2024) fluticasone propion-salmeteroL (ADVAIR) 250-50 mcg/dose DISKUS Inhale 1 puff in the morning and 1 puff before bedtime. (Patient not taking: Reported on 08/05/2024) 60 each 6 loratadine (CLARITIN) 10 mg tablet Take 1 tablet (10 mg total) by mouth as needed. (Patient not taking: Reported on 08/05/2024) No current facility-administered medications for this visit. Chief Complaint Patient presents with Follow-up EST PT 14 month FU LS MAS, LABS [facility], CHEST XRAY OSIRIS Atrial Fibrillation History of Present Illness 84-year-old doing well without any complaints Denies chest pain chest tightness shortness of breath Past Medical History: Diagnosis Date Arthritis Atrial fibrillation ([facility]) Cataract removed 2011 bilateral Chronic kidney disease COPD (chronic obstructive pulmonary disease) ([facility]) DM type 2 (diabetes mellitus, type 2) ([facility]) HTN (hypertension) Hyperlipidemia 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 ([facility]) 09/03/2021 Hypothyroid KELECHI (obstructive sleep apnea) No [...] Never Smokeless tobacco: Never Vaping Use Vaping status: Never Used Substance and Sexual Activity Alcohol use: No Alcohol/week: 0.0 standard drinks of alcohol Drug use: No Sexual activity: Defer Other Topics Concern Caffeine Use Yes Comment: 3 large cups daily Social History Narrative Not on file Social Drivers of Health Financial Resource Strain: Not on file Food Insecurity: No Food Insecurity (06/17/2023) Hunger Screening Food Insecurity - Worry: Never True Food Insecurity - Inability: Never True Transportation Needs: Not on file Physical Activity: Not on file Stress: Not on file Social Connections: Not on file Interpersonal Safety: Unknown (07/10/2023) Re[facility] from [facility] [place] Safety & Environment Fear of Current or Ex-Partner: Not on file Emotionally Abused: Not on file Physically Abused: Not on file Sexually Abused: Not on file Physically or Sexually Abused: Not on file Housing Instability: Low Risk (05/10/2023) Housing Instability Housing Instability: No Review of Systems Review of Systems Constitutional: Negative for malaise/fatigue. HENT: Negative for nosebleeds. Respiratory: Negative for cough, hemoptysis and shortness of breath. Hematologic/Lymphatic: Does not bruise/bleed easily. Musculoskeletal: Positive for joint swelling. Negative for falls, muscle cramps and muscle weakness. Gastrointestinal: Positive for bloating (sometimes). Negative for hematochezia. Genitourinary: Negative for hematuria. Neurological: Negative for dizziness, headaches and light-headedness. Vascular: Negative for claudication and lower extremity wounds or ulcers. CARDIOVASCULAR: Please review HPI. Physical Examination General [...] mood, memory and judgement. VITAL SIGNS: BP 116/58 (BP Site: Left Arm, BP Postition: Sitting, BP CUFF SIZE: M (9-13 inches)) Pulse 59 Ht 165.1 cm (5' 5 ) Wt 90.4 kg (199 lb 3.2 oz) LMP (LMP Unknown) BMI 33.15 kg/m Orders Placed or Reconciled This Encounter Medications LOKELMA 10 gram packet Sig: Take 10 g by mouth 3 (three) times a week. ferrous sulfate 325 (65 FE) MG tablet Sig: Take 1 tablet (325 mg total) by mouth in the morning and 1 tablet (325 mg total) in the evening. Take with meals. There are no discontinued medications. IMPRESSIONS/PLAN 1. PAF (paroxysmal 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) ([facility]) - POCT EKG 2. retirement current use of amiodarone - POCT EKG 3. 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 ([facility]) 1. Paroxysmal 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 on anticoagulation 2. Loud murmur that sounds like aortic stenosis on examination only with aortic sclerosis on prior echo and mild mitral valve disease, repeat an echo in a year 3. Heart failure preserved ejection fraction 4. Hypertension Doing well no major changes TODAYS ORDERS Orders Placed This Encounter Procedures POCT EKG FOLLOW UP Return in about 1 year (around 08/05/2025). PCP: RASHAD MERCHANT Referring Physician: RASHAD Cabrera [address] [facility] [place] [address] documented [facility] History of Present illness Narrative 15 minute naqf-hq-lxnr follow-up anticoagulation appointment. INR performed in office per protocol. INR 3.5 (goal range: 2.0-3.0). Patient reports: Taking warfarin dosing as documented. Missed or extra doses of warfarin: No Changes to medications: No Changes to lifestyle (diet / alcohol / smoking / activity): No Recent emergency department visit / hospitalization / health changes / new contraindication to current anticoagulant: YES Patient has been feeling under the weather for the past week Signs/symptoms of bruising/bleeding or clotting or any intolerable adverse events: No Upcoming procedures: No Anticoagulant prescription needed: No Seen referring provider in the last year Duration of therapy reviewed Assessment: INR remains elevated and has continued to climb. We will reduce weekly dose 10%. Also discussed we may need to change tablet size in the near future. Plan: Patient instructed to decrease to warfarin 1.25 mg 08/05, then decrease weekly dose to 2.5 mg Sun/Thurs and 1.25 mg AOD. Check INR in 2.5 week(s). Patient verbalizes understanding of anticoagulant dosing instructions and information discussed. Dosing regimen, counseling, and follow-up appointment were provided to the patient. Patient reminded to call with questions or any medication changes. Patient instructed to seek medical attention if any major bleeding/bleeding that persists or worsens. Alie Schumacher RPH 08/05/24 1252 documented in this encounter [facility] 08-04-2024 Miscellaneous Notes Left message for patient to remind them to bring their most current medication list with them to their appointment. documented in this encounter [facility] 08-04-2024 Telephone encounter Note Left message for patient to remind them to bring their most current medication list with them to their appointment. [facility] 07-14-2024 History of Present illness Narrative 15 minute zvdz-fq-vqmg follow-up anticoagulation appointment. INR performed in office [...] RPH 07/14/24 1320 documented in this encounter [facility] 06-30-2024 History of Present illness Narrative Images [...] Luci Gant DPM documented in this encounter [facility] 06-30-2024 Instructions Luci Gant DPM - 06/30/2024 1:30 PM EST As noted documented in this encounter [facility] 06-16-2024 Note XR CHEST 2 VWS Procedure: Chest x-ray performed Number of views:2 History:Atrial fibrillation Comparison:05/14/2024 Findings: The heart and lungs show no acute findings, and the mediastinum and yusef are grossly negative . The pulmonary arteries remain prominent. The cardiac silhouette remains enlarged. Impression: 1. No acute change. Finalized by Jacek Gordillo MD on 06/16/2024 3:22 PM [facility] 06-16-2024 History of Present illness Narrative 15 minute lpqe-cq-cyfq follow-up anticoagulation appointment. 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 Pt agreeable, all questions answered [facility] History of Present illness Narrative* Alie Schumacher [facility] - 05/17/2024 2:15 PM EST 15 minute lbli-sl-mhtf follow-up anticoagulation appointment. INR performed in office [...] Schumacher RPH 05/17/24 1412 documented in this [facility]12-27-2024 NoteXR CHEST 2 VWS History: Shortness of breath Procedure: 2 view PA and Lateral chest radiograph. Comparison: 05/09/2023 Findings: Prominent central pulmonary arteries. Mild interstitial edema. Stable cardiac silhouette.No no pneumothorax. No focal consolidation or pleural effusions. IMPRESSION: Mild interstitial edema. Finalized by Luci Power MD on 05/14/2024 12:18 [facility] 05-07-2024 Miscellaneous Notes* Telephone Encounter - Briana Reeves RN - 05/07/2024 5:41 AM EST OV 07/30/23 Updated labs needed, letter was already mailed 04/20/24. 07/30/23 EKG 05/09/23 CXR 04/07/24 PFT EYE exam ? documented in this [facility]12-20-2024 Telephone encounter Note* Telephone Encounter - Briana Reeves RN - 05/07/2024 5:41 AM EST OV 07/30/23 Updated labs needed, letter was already mailed 04/20/24. 07/30/23 EKG 05/09/23 CXR 04/07/24 PFT EYE exam ? [facility]12-18-2024 Miscellaneous Notes* Telephone Encounter - Briana Reeves RN - 05/05/2024 6:02 PM EST OV 07/30/23 Updated labs needed, letter was already mailed 04/20/24. 07/30/23 EKG 05/09/23 CXR 04/07/24 PFT EYE exam ? [facility] Tele[facility] encounter Note* Telephone Encounter - Briana Reeves RN - 05/05/2024 6:02 PM EST OV 07/30/23 Updated labs needed, letter was already mailed 04/20/24. 07/30/23 EKG 05/09/23 CXR 04/07/24 PFT EYE exam ? 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 acute May 04 024 11:08am Anemia of renal disease acute J anuary 2024 11:32am 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 acute June 03 11:32am BMI 40.0-44.9, adult acute Freddy katie 2024 1:49pm Diabetes acute June 14, 2024 1:49pm Dietary counseling and surveillance acute June 14 1:49pm HTN (hypertension) acute Mayuar y 2024 1:49pm Hyperlipidemia acute June 142024 1:49pm [...] stag e IV (severe) acute July 13, 2 025 9:50am Edema acute 2024 9:50am Fibrillary glomerulonephritis acute 2024 9:50am Hyperkalemia acute June 9:50am Hyperparathyroidism acute 2024 9:50am Hypertensive chronic kidney disease with stage 1 through stage 4 chronic ki acute July 13, 2 025 9:50am Type 2 diabetes mellitus wit h diabetic chronic kidney disease acute 2024 9:50am Anemia acute July 27 1:45pm Chronic kidney disease, stag e IV (severe) acute July 27, 2024 1:45pm Edema acute July 27 1:45pm 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 27, 2024 1:45pm Hyperkalemia acute July 27, 2024 1:45pm Hyperparathyroidism acute July 27, 2024 1:45pm Hypertensive chronic kidney disease with stage 1 through stage 4 chronic ki acute July 27, 2024 1:45pm Type 2 diabetes mellitus wit h diabetic chronic kidney disease acute July 27, 2024 1:45pm [facility] Work Phone: 1(746) 172-911012-03-2024 Evaluation note* Diagnosis Onset Date Resolution Status [...] stag e IV (severe) acute May 04, 2 024 11:08am 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 acute May 04 11:08am Anemia of renal disease acute J anuary 2024 11:32am 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 acute June 03 11:32am [facility] Work Phone: 1(587) 587-964712-03-2024 Evaluation note* Diagnosis Onset Date Resolution Status [...] type 1 di abetes mellitus acute May 04 024 11:08am Anemia of renal disease acute J anuary 2024 11:32am 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 acute June 03 11:32am BMI 40.0-44.9, adult acute Freddy katie 2024 1:49pm Diabetes acute June 14, 2024 1:49pm Dietary counseling and surveillance acute June 14 1:49pm HTN (hypertension) acute Mayuar y 2024 1:49pm Hyperlipidemia acute June 142024 1:49pm [facility] Work Phone: 1(591) 855-166612-03-2024 Evaluation note* Diagnosis Onset Date Resolution Status [...] type 1 di abetes mellitus acute May 04 11:08am Anemia of renal disease acute J anuary 2024 11:32am 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 acute June 03 11:32am BMI 40.0-44.9, adult acute Freddy katie 2024 1:49pm Diabetes acute June 14, 2024 1:49pm Dietary counseling and surveillance acute June 14 1:49pm HTN (hypertension) acute 2024 1:49pm Hyperlipidemia acute June 142024 1:49pm Anemia acute June 17, 2024 1:50pm 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 acute June 17 1:50pm [facility] Work Phone: 1(953) 928-130012-03-2024 Evaluation note* Diagnosis Onset Date Resolution Status [...] stag e IV (severe) acute May 04 11:08am 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 [...] stag e IV (severe) acute July 13, 2 025 9:50am Edema acute 2024 9:50am Fibrillary glomerulonephritis acute 2024 9:50am Hyperkalemia acute June 9:50am Hyperparathyroidism acute 2024 9:50am Hypertensive chronic kidney disease with stage 1 through stage 4 chronic ki acute July 13, 2 025 9:50am Type 2 diabetes mellitus wit h diabetic chronic kidney disease acute 2024 9:50am [facility] Work Phone: 1(207) 514-490410-29-2024 History of Present illness Narrative* Luci Gant DPM - 03/16/2024 1:30 PM EDT Images from [...] understanding. Luci Gant DPM documented in this [facility]10-29-2024 Instructions* Patient Instructions* Luci Gant DPM - 03/16/2024 1:30 PM EDT As noted documented in this [facility]08-27-2024 Evaluation note* Diagnosis Onset Date Resolution [...] Hyperkalemia acute February 9:43am Hyperparathyroidism acute Octob 2023 9:43am Hypertensive chronic kidney disease with stage 1 through stage 4 chronic ki acute March 02, 2024 9:43am Type 2 diabetes mellitus wit h diabetic chronic kidney disease acute March 02, 2024 9:43am Anemia acute March 23, 2024 1:58pm Chronic kidney disease, stag e IV (severe) acute March 23 1:58pm [facility] Work Phone: 1(169) 438-225701-16-2024 Evaluation note* Encounter Date Diagnosis Assessment Notes Treatment Notes Treatment Clinical Notes May, Edema (ICD-10 - R60.9) [facility] Other 12-06-2023 Evaluation note* Encounter Date Diagnosis Assessment Notes Treatment Notes Treatment Clinical Notes Apr, Nephritis (ICD-10 - N05.9) [facility] Other 12-05-2023 Evaluation note* Encounter Date Diagnosis [...] check iron, folate and VB12 storage studies [facility] Other 12-04-2023 Evaluation note* Encounter Date Diagnosis Assessment Notes Treatment Notes Treatment Clinical Notes Apr, Edema (ICD-10 - R60.9) [facility] Other 10-04-2023 Evaluation note* Encounter Date Diagnosis Assessment Notes Treatment Notes Treatment Clinical Notes Feb, Dietary counseling and surveillance (ICD-10 - Z71.3) Maintaining a healthful weight material was printed see above Feb, Type 2 diabetes mellitus (ICD-10 - E11.9) Type 2 diabetes material was printed 1. Controlled, Type 2 diabetes with A1c 5.8%. 2. Blood glucose levels improved. According to [employer] 2 cgm download 02/06/2023- 3 Avg glucose [...] Feb, BMI 40.0-44.9, adult (ICD-10 - Z68.41) [facility] Other 09-27-2023 Evaluation note* Encounter Date Diagnosis [...] a computer on the screen. Pt contacted [employer] for reader replacement. Pt also brought in new reader. New reader set up with pt. Instructed pt to send old reader back to [employer]. 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 Keep f/u with nephrology Aug, BMI 39.0-39.9,adult (ICD-10 - Z68.39) 11 pound weight loss from last visit, continue with weight loss efforts [facility] Other 10-12-2022 Evaluation note* Encounter Date Diagnosis Assessment Notes Treatment Notes Treatment Clinical Notes Feb, Dietary counseling and surveillance (ICD-10 - Z71.3) Maintaining a healthful weight material was printed see above Feb, Type 2 diabetes mellitus (ICD-10 - E11.9) Type 2 diabetes material was printed 1. Controlled, Type 2 diabetes with A1c of 6.1% 2. Blood glucose levels stable. According to [employer] 2 cgm download 02/14/2022-02/28/20 22 Avg glucose [...] E11.649) Hypoglycemia material was printed see above [facility] Other 09-12-2022 Evaluation note* Encounter Date Diagnosis Assessment Notes Treatment Notes Treatment Clinical Notes Jan, Edema (ICD-10 - R60.9) [facility] Other 08-24-2022 Evaluation note* Encounter Date Diagnosis Assessment Notes Treatment Notes Treatment Clinical Notes Dec, Type 2 diabetes mellitus with diabetic chronic kidney disease (ICD-10 - E11.22) Dec, Type 2 diabetes mellitus (ICD-10 - E11.9) [facility] Other 06-17-2022 Evaluation note* Encounter Date Diagnosis Assessment Notes Treatment Notes Treatment Clinical Notes Oct, Vitamin B 12 deficiency (ICD-10 - E53.8) [facility] Other 06-07-2022 Evaluation note* Encounter Date Diagnosis [...] arthritis and sleep apnea has been addressed. [facility] Other 06-06-2022 Evaluation note* Encounter Date Diagnosis Assessment Notes Treatment Notes Treatment Clinical Notes Oct, Type 2 diabetes mellitus with diabetic chronic kidney disease (ICD-10 - E11.22) [facility] Other 04-25-2022 Evaluation note* Encounter Date Diagnosis Assessment Notes Treatment Notes Treatment Clinical Notes Aug, Type 2 diabetes mellitus with diabetic chronic kidney disease (ICD-10 - E11.22) [facility] Other 01-05-2022 Evaluation note* Encounter Date Diagnosis [...] I10) About hypertension material was printed May, retirement current use of insulin (ICD-10 - [...] E11.649) Hypoglycemia material was printed see above [facility] Other 01-17-2021 History general Narrative - Reported* [...] History SEE ABOVE Hospitalization History COPD 07/08 [facility] Other Evaluation noteNo InformationNort V Wave Other evalubouyw noteNo assessment information available [facility] Work Phone: evaluyluer note* Diagnosis Onset Date Resolution Status Anemia acute BMI 50.0-59.9, adult acute Edema acute Hyperlipidemia acute [id number] acute Stage 3b chronic kidney disease (CKD) acute Type 2 diabetes mellitus wit h diabetic chronic kidney disease acute [facility] Work Phone: Evaluation note* Diagnosis Onset Date Resolution Status Anemia acute BMI 50.0-59.9, adult acute Edema acute Hyperlipidemia acute [id number] acute Stage 3b chronic kidney disease (CKD) acute Type 2 diabetes mellitus wit h diabetic chronic kidney disease acute Diabetes acute Dietary counseling and surveillance acute HTN (hypertension) acute Hyperlipidemia acute Vitamin B 12 deficiency acut e [facility] Work Phone: Evaluation note* Diagnosis Onset Date Resolution Status Anemia acute BMI 50.0-59.9, adult acute Edema acute Hyperlipidemia acute [id number] acute Stage 3b chronic kidney disease (CKD) acute Type 2 diabetes mellitus wit h diabetic chronic kidney disease acute BMI 40.0-44.9, adult acute Diabetes acute Dietary counseling and surveillance acute HTN (hypertension) acute Hyperlipidemia acute Vitamin B 12 deficiency acut e [facility] Work Phone: Evaluation note* Diagnosis Onset Date Resolution Status Anemia acute BMI 50.0-59.9, adult acute Edema acute Hyperlipidemia acute [id number] acute Stage 3b chronic kidney disease (CKD) acute Type 2 diabetes mellitus wit h diabetic chronic kidney disease acute BMI 40.0-44.9, adult acute Diabetes acute Dietary counseling and surveillance acute HTN (hypertension) acute Hyperlipidemia acute Vitamin B 12 deficiency acut e Anemia acute Edema acute Fibrillary glomerulonephritis acute Hyperparathyroidism acute [id number] acute Stage 3b chronic kidney disease (CKD) acute Type 2 diabetes mellitus wit h diabetic chronic kidney disease acute [facility] Work Phone: Evaluation note* Diagnosis Onset Date Resolution Status Anemia acute BMI 50.0-59.9, adult acute Edema acute Hyperlipidemia acute [id number] acute Stage 3b chronic kidney disease (CKD) acute Type 2 diabetes mellitus wit h diabetic chronic kidney disease acute BMI 40.0-44.9, adult acute Diabetes acute Dietary counseling and surveillance acute HTN (hypertension) acute Hyperlipidemia acute Vitamin B 12 deficiency acut e Anemia acute Edema acute Fibrillary glomerulonephritis acute Hyperparathyroidism acute [id number] acute Stage 3b chronic kidney disease (CKD) acute Type 2 diabetes mellitus wit h diabetic chronic kidney disease acute Anemia acute Edema acute Fibrillary glomerulonephritis acute Hyperparathyroidism acute [id number] acute Stage 3b chronic kidney disease (CKD) acute Type 2 diabetes mellitus wit h diabetic chronic kidney disease acute [facility] Work Phone: Evaluation note* Diagnosis Onset Date Resolution Status Anemia acute BMI 50.0-59.9, adult acute Edema acute Hyperlipidemia acute [id number] acute Stage 3b chronic kidney disease (CKD) acute Type 2 diabetes mellitus wit h diabetic chronic kidney disease acute BMI 40.0-44.9, adult acute Diabetes acute Dietary counseling and surveillance acute HTN (hypertension) acute Hyperlipidemia acute Vitamin B 12 deficiency acut e Anemia acute Edema acute Fibrillary glomerulonephritis acute Hyperparathyroidism acute [id number] acute Stage 3b chronic kidney disease (CKD) acute Type 2 diabetes mellitus wit h diabetic chronic kidney disease acute Anemia acute Edema acute Fibrillary glomerulonephritis acute Hyperparathyroidism acute [id number] acute Stage 3b chronic kidney disease (CKD) acute Type 2 diabetes mellitus wit h diabetic chronic kidney disease acute Anemia acute Edema acute Fibrillary glomerulonephritis acute Hyperparathyroidism acute [id number] acute Stage 3b chronic kidney disease (CKD) acute Type 2 diabetes mellitus wit h diabetic chronic kidney disease acute [facility] Work Phone: Evaluation note* Diagnosis Onset Date Resolution Status Anemia acute BMI 50.0-59.9, adult acute Edema acute Hyperlipidemia acute [id number] acute Stage 3b chronic kidney disease (CKD) acute Type 2 diabetes mellitus wit h diabetic chronic kidney disease acute BMI 40.0-44.9, adult acute Diabetes acute Dietary counseling and surveillance acute HTN (hypertension) acute Hyperlipidemia acute Vitamin B 12 deficiency acut e Anemia acute Edema acute Fibrillary glomerulonephritis acute Hyperparathyroidism acute [id number] acute Stage 3b chronic kidney disease (CKD) acute Type 2 diabetes mellitus wit h diabetic chronic kidney disease acute Anemia acute Edema acute Fibrillary glomerulonephritis acute Hyperparathyroidism acute [id number] acute Stage 3b chronic kidney disease (CKD) acute Type 2 diabetes mellitus wit h diabetic chronic kidney disease acute Anemia acute Edema acute Fibrillary glomerulonephritis acute Hyperparathyroidism acute [id number] acute Stage 3b chronic kidney disease (CKD) acute Type 2 diabetes mellitus wit h diabetic chronic kidney disease acute Anemia acute Edema acute Fibrillary glomerulonephritis acute Hyperkalemia acute Hyperparathyroidism acute [id number] acute Stage 3b chronic kidney disease (CKD) acute Type 2 diabetes mellitus wit h diabetic chronic kidney disease acute [facility] Work Phone: Evaluation note* Diagnosis Onset Date Resolution Status BMI 40.0-44.9, adult acute Diabetes acute Dietary counseling and surveillance acute HTN (hypertension) acute Hyperlipidemia acute Vitamin B 12 deficiency acut e Anemia acute Edema acute Fibrillary glomerulonephritis acute Hyperparathyroidism acute [id number] acute Stage 3b chronic kidney disease (CKD) acute Type 2 diabetes mellitus wit h diabetic chronic kidney disease acute Anemia acute Edema acute Fibrillary glomerulonephritis acute Hyperparathyroidism acute [id number] acute Stage 3b chronic kidney disease (CKD) acute Type 2 diabetes mellitus wit h diabetic chronic kidney disease acute Anemia acute Edema acute Fibrillary glomerulonephritis acute Hyperparathyroidism acute [id number] acute Stage 3b chronic kidney disease (CKD) acute Type 2 diabetes mellitus wit h diabetic chronic kidney disease acute Anemia acute Edema acute Fibrillary glomerulonephritis acute Hyperkalemia acute Hyperparathyroidism acute [id number] acute Stage 3b chronic kidney disease (CKD) acute Type 2 diabetes mellitus wit h diabetic chronic kidney disease acute Anemia acute Edema acute Fibrillary glomerulonephritis acute Hyperkalemia acute Hyperparathyroidism acute [id number] acute Stage 3b chronic kidney disease (CKD) acute Type 2 diabetes mellitus wit h diabetic chronic kidney disease acute [facility] Work Phone: Evaluation note* Diagnosis Onset Date Resolution Status Anemia acute Edema acute Fibrillary glomerulonephritis acute Hyperparathyroidism acute [id number] acute Stage 3b chronic kidney disease (CKD) acute Type 2 diabetes mellitus wit h diabetic chronic kidney disease acute Anemia acute Edema acute Fibrillary glomerulonephritis acute Hyperparathyroidism acute [id number] acute Stage 3b chronic kidney disease (CKD) acute Type 2 diabetes mellitus wit h diabetic chronic kidney disease acute Anemia acute Edema acute Fibrillary glomerulonephritis acute Hyperparathyroidism acute [id number] acute Stage 3b chronic kidney disease (CKD) acute Type 2 diabetes mellitus wit h diabetic chronic kidney disease acute Anemia acute Edema acute Fibrillary glomerulonephritis acute Hyperkalemia acute Hyperparathyroidism acute [id number] acute Stage 3b chronic kidney disease (CKD) acute Type 2 diabetes mellitus wit h diabetic chronic kidney disease acute Anemia acute Edema acute Fibrillary glomerulonephritis acute Hyperkalemia acute Hyperparathyroidism acute [id number] acute Stage 3b chronic kidney disease (CKD) acute Type 2 diabetes mellitus wit h diabetic chronic kidney disease acute BMI 40.0-44.9, adult acute Diabetes acute Dietary counseling and surveillance acute HTN (hypertension) acute Hyperlipidemia acute Vitamin B 12 deficiency acut e [facility] Work Phone: Evaluation note* Diagnosis Onset Date Resolution Status Anemia acute Edema acute Fibrillary glomerulonephritis acute Hyperparathyroidism acute [id number] acute Stage 3b chronic kidney disease (CKD) acute Type 2 diabetes mellitus wit h diabetic chronic kidney disease acute Anemia acute Edema acute Fibrillary glomerulonephritis acute Hyperparathyroidism acute [id number] acute Stage 3b chronic kidney disease (CKD) acute Type 2 diabetes mellitus wit h diabetic chronic kidney disease acute Anemia acute Edema acute Fibrillary glomerulonephritis acute Hyperkalemia acute Hyperparathyroidism acute [id number] acute Stage 3b chronic kidney disease (CKD) acute Type 2 diabetes mellitus wit h diabetic chronic kidney disease acute Anemia acute Edema acute Fibrillary glomerulonephritis acute Hyperkalemia acute Hyperparathyroidism acute [id number] acute Stage 3b chronic kidney disease (CKD) acute Type 2 diabetes mellitus wit h diabetic chronic kidney disease acute BMI 40.0-44.9, adult acute Diabetes acute Dietary counseling and surveillance acute HTN (hypertension) acute Hyperlipidemia acute Vitamin B 12 deficiency acut e Anemia acute Stage 3a chronic kidney disease (CKD) acute [facility] Work Phone: Evaluation note* Diagnosis Onset Date Resolution Status Anemia acute Edema acute Fibrillary glomerulonephritis acute Hyperparathyroidism acute [id number] acute Stage 3b chronic kidney disease (CKD) acute Type 2 diabetes mellitus wit h diabetic chronic kidney disease acute Anemia acute Edema acute Fibrillary glomerulonephritis acute Hyperkalemia acute Hyperparathyroidism acute [id number] acute Stage 3b chronic kidney disease (CKD) acute Type 2 diabetes mellitus wit h diabetic chronic kidney disease acute Anemia acute Edema acute Fibrillary glomerulonephritis acute Hyperkalemia acute Hyperparathyroidism acute [id number] acute Stage 3b chronic kidney disease (CKD) acute Type 2 diabetes mellitus wit h diabetic chronic kidney disease acute BMI 40.0-44.9, adult acute Diabetes acute Dietary counseling and surveillance acute HTN (hypertension) acute Hyperlipidemia acute Vitamin B 12 deficiency acut e Anemia acute Stage 3a chronic kidney disease (CKD) acute [facility] Work Phone: Evaluation note* Diagnosis Onset Date Resolution Status Anemia acute Edema acute Fibrillary glomerulonephritis acute Hyperparathyroidism acute [id number] acute Stage 3b chronic kidney disease (CKD) acute Type 2 diabetes mellitus wit h diabetic chronic kidney disease acute Anemia acute Edema acute Fibrillary glomerulonephritis acute Hyperkalemia acute Hyperparathyroidism acute [id number] acute Stage 3b chronic kidney disease (CKD) acute Type 2 diabetes mellitus wit h diabetic chronic kidney disease acute Anemia acute Edema acute Fibrillary glomerulonephritis acute Hyperkalemia acute Hyperparathyroidism acute [id number] acute Stage 3b chronic kidney disease (CKD) [...] Stage 3a chronic kidney disease (CKD) acute [facility] Work Phone: Evaluation note* Diagnosis Onset Date Resolution Status Anemia acute Edema acute Fibrillary glomerulonephritis acute Hyperkalemia acute Hyperparathyroidism acute [id number] acute Stage 3b chronic kidney disease (CKD) acute Type 2 diabetes mellitus wit h diabetic chronic kidney disease acute Anemia acute Edema acute Fibrillary glomerulonephritis acute Hyperkalemia acute Hyperparathyroidism acute [id number] acute Stage 3b chronic kidney disease (CKD) [...] Fibrillary glomerulonephritis acute Hyperkalemia acute Hyperparathyroidism acute [id number] acute Stage 3b chronic kidney disease (CKD) acute Type 2 diabetes mellitus wit h diabetic chronic kidney disease acute [facility] Work Phone: Evaluation note* Diagnosis Onset Date Resolution Status Anemia acute Edema acute Fibrillary glomerulonephritis acute Hyperkalemia acute Hyperparathyroidism acute [id number] acute Stage 3b chronic kidney disease (CKD) [...] Fibrillary glomerulonephritis acute Hyperkalemia acute Hyperparathyroidism acute [id number] acute Stage 3b chronic kidney disease (CKD) acute Type 2 diabetes mellitus wit h diabetic chronic kidney disease acute [facility] Work Phone: Evaluation note* Diagnosis [...] Fibrillary glomerulonephritis acute Hyperkalemia acute Hyperparathyroidism acute [id number] acute Stage 3b chronic kidney disease (CKD) acute Type 2 diabetes mellitus wit h diabetic chronic kidney disease acute Anemia acute Anemia of renal disease acut e 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 acute [id number] acute [facility] Work Phone: Evaluation note* Diagnosis Dermatophytosis of nail- Primary Dystrophic nail Other specified disease of nail Pain around toenail, right foot Pain around toenail, left foot [facility] Onset Date Resolution Status Anemia acute Anemia of renal disease acut e Stage 3a chronic kidney disease (CKD) acute Anemia of renal disease acut e Stage 3b chronic kidney disease (CKD) acute Anemia acute Edema acute Fibrillary glomerulonephritis acute Hyperkalemia acute Hyperparathyroidism acute [id number] acute Stage 3b chronic kidney disease (CKD) acute Type 2 diabetes mellitus wit h diabetic chronic kidney disease acute Anemia acute Anemia of renal disease acut e Stage 3b chronic kidney disease (CKD) acute Anemia acute Chronic kidney disease, stage IV (severe) acute Edema acute Fibrillary glomerulonephritis acute Hyperkalemia acute Hyperparathyroidism acute [id number] acute Type 2 diabetes mellitus wit h diabetic chronic kidney disease acute Anemia acute Chronic kidney disease, stage IV (severe) acute [facility] Work Phone: Evaluation note* 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 Hyperlipidemia, unspecified hyperlipidemia type [facility] Diagnosis PAF (paroxysmal 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) ([facility])- Primary Atrial fibrillation [facility] Diagnosis SOB (shortness of breath)- Primary Shortness of breath Abnormal CXR Nonspecific (abnormal) findings on radiological and other examination of lung field [facility] PAF (paroxysmal 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) ([facility])- Primary Atrial fibrillation [facility] Diagnosis Dermatophytosis of nail- Primary Dystrophic nail Other specified disease of nail Pain around toenail, right foot Pain around toenail, left foot [facility] PAF (paroxysmal 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) (CMS-HCC)- Primary Atrial fibrillation retirement current use of amiodarone 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) [facility] Diagnosis PAF (paroxysmal 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) (CMS-HCC) Atrial fibrillation [facility] Diagnosis PAF (paroxysmal 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) (CMS-HCC)- Primary Atrial fibrillation [facility] instructions[facility]ulatory Orders* AMB POC INR Time Frame: 2 Months, Location: Determined By Patient [facility] Work Phone: InstructionsNot on filedocumented in this encounter [facility] filed[facility] Summary Purpose Family History No Family [...] Unknown Advance Directives No Advanced Directives Records Found Advance Directive Response Recorded Date/ Time Advance [...] Comments 06/28/2019 7:15 AM 06/28/2019 8:15 PM Advance Directive Response Recorded Date/ Time Advance Directives No August 17 2:44pm Chief Complaint and Reason for Visit Chief Complaint Renal 6 Month Follow Up Chief Complaint RENAL 3 month Follow up Reason for Visit Anemia BMI 50.0-59.9, adult Edema Hyperlipidemia [id number] Stage 3b chronic kidney disease (CKD) Type 2 diabetes mellitus with diabetic chronic kidney disease Chief Complaint RENAL 3 month Follow up kusum reader Reason for Visit Anemia BMI 50.0-59.9, adult Edema Hyperlipidemia [id number] Stage 3b chronic kidney disease (CKD) Type 2 diabetes mellitus with diabetic chronic kidney disease Diabetes Dietary counseling and surveillance HTN (hypertension) Hyperlipidemia Vitamin B 12 deficiency Chief Complaint RENAL 3 month Follow up kusum reader N18.32 R60.9 D64.9 Z68.43 E78.5 E11.22 I12.9 Reason for Visit Anemia BMI 50.0-59.9, adult Edema Hyperlipidemia [id number] Stage 3b chronic kidney disease (CKD) Type 2 diabetes mellitus with diabetic chronic kidney disease BMI 40.0-44.9, adult Diabetes Dietary counseling and surveillance HTN (hypertension) Hyperlipidemia Vitamin B 12 deficiency Chief Complaint RENAL 3 month Follow up kusum reader N18.32 R60.9 D64.9 Z68.43 E78.5 E11.22 I12.9 RENAL F/U Reason for Visit Anemia BMI 50.0-59.9, adult Edema Hyperlipidemia [id number] Stage 3b chronic kidney disease (CKD) Type 2 diabetes mellitus with diabetic chronic kidney disease BMI 40.0-44.9, adult Diabetes Dietary counseling and surveillance HTN (hypertension) Hyperlipidemia Vitamin B 12 deficiency Anemia Edema Fibrillary glomerulonephritis Hyperparathyroidism [id number] Stage 3b chronic kidney disease (CKD) Type 2 diabetes mellitus with diabetic chronic kidney disease Chief Complaint RENAL 3 month Follow up kusum reader N18.32 R60.9 D64.9 Z68.43 E78.5 E11.22 I12.9 RENAL F/U 3 week f/u Reason for Visit Anemia BMI 50.0-59.9, adult Edema Hyperlipidemia [id number] Stage 3b chronic kidney disease (CKD) Type 2 diabetes mellitus with diabetic chronic kidney disease BMI 40.0-44.9, adult Diabetes Dietary counseling and surveillance HTN (hypertension) Hyperlipidemia Vitamin B 12 deficiency Anemia Edema Fibrillary glomerulonephritis Hyperparathyroidism [id number] Stage 3b chronic kidney disease (CKD) Type 2 diabetes mellitus with diabetic chronic kidney disease Anemia Edema Fibrillary glomerulonephritis Hyperparathyroidism [id number] Stage 3b chronic kidney disease (CKD) Type 2 diabetes mellitus with diabetic chronic kidney disease Chief Complaint RENAL 3 month Follow up kusum reader N18.32 R60.9 D64.9 Z68.43 E78.5 E11.22 I12.9 RENAL F/U 3 week f/u RENAL 2 MONTH F/U Reason for Visit Anemia BMI 50.0-59.9, adult Edema Hyperlipidemia [id number] Stage 3b chronic kidney disease (CKD) Type 2 diabetes mellitus with diabetic chronic kidney disease BMI 40.0-44.9, adult Diabetes Dietary counseling and surveillance HTN (hypertension) Hyperlipidemia Vitamin B 12 deficiency Anemia Edema Fibrillary glomerulonephritis Hyperparathyroidism [id number] Stage 3b chronic kidney disease (CKD) Type 2 diabetes mellitus with diabetic chronic kidney disease Anemia Edema Fibrillary glomerulonephritis Hyperparathyroidism [id number] Stage 3b chronic kidney disease (CKD) Type 2 diabetes mellitus with diabetic chronic kidney disease Anemia Edema Fibrillary glomerulonephritis Hyperparathyroidism [id number] Stage 3b chronic kidney disease (CKD) Type 2 diabetes mellitus with diabetic chronic kidney disease Chief Complaint RENAL 3 month Follow up kusum reader N18.32 R60.9 D64.9 Z68.43 E78.5 E11.22 I12.9 RENAL F/U 3 week f/u RENAL 2 MONTH F/U RENAL 3 WK INJ RETACRIT Reason for Visit Anemia BMI 50.0-59.9, adult Edema Hyperlipidemia [id number] Stage 3b chronic kidney disease (CKD) Type 2 diabetes mellitus with diabetic chronic kidney disease BMI 40.0-44.9, adult Diabetes Dietary counseling and surveillance HTN (hypertension) Hyperlipidemia Vitamin B 12 deficiency Anemia Edema Fibrillary glomerulonephritis Hyperparathyroidism [id number] Stage 3b chronic kidney disease (CKD) Type 2 diabetes mellitus with diabetic chronic kidney disease Anemia Edema Fibrillary glomerulonephritis Hyperparathyroidism [id number] Stage 3b chronic kidney disease (CKD) Type 2 diabetes mellitus with diabetic chronic kidney disease Anemia Edema Fibrillary glomerulonephritis Hyperparathyroidism [id number] Stage 3b chronic kidney disease (CKD) Type 2 diabetes mellitus with diabetic chronic kidney disease Anemia Edema Fibrillary glomerulonephritis Hyperkalemia Hyperparathyroidism [id number] Stage 3b chronic kidney disease (CKD) Type [...] 12 deficiency Anemia Edema Fibrillary glomerulonephritis Hyperparathyroidism [id number] Stage 3b chronic kidney disease (CKD) Type 2 diabetes mellitus with diabetic chronic kidney disease Anemia Edema Fibrillary glomerulonephritis Hyperparathyroidism [id number] Stage 3b chronic kidney disease (CKD) Type 2 diabetes mellitus with diabetic chronic kidney disease Anemia Edema Fibrillary glomerulonephritis Hyperparathyroidism [id number] Stage 3b chronic kidney disease (CKD) Type 2 diabetes mellitus with diabetic chronic kidney disease Anemia Edema Fibrillary glomerulonephritis Hyperkalemia Hyperparathyroidism [id number] Stage 3b chronic kidney disease (CKD) Type 2 diabetes mellitus with diabetic chronic kidney disease Anemia Edema Fibrillary glomerulonephritis Hyperkalemia Hyperparathyroidism [id number] Stage 3b chronic kidney disease (CKD) Type 2 diabetes mellitus with diabetic chronic kidney disease Chief Complaint RENAL F/U 3 week f/u RENAL 2 MONTH F/U RENAL 3 WK INJ RETACRIT RENAL 2 WK INJ / RETACRIT METER Reason for Visit Anemia Edema Fibrillary glomerulonephritis Hyperparathyroidism [id number] Stage 3b chronic kidney disease (CKD) Type 2 diabetes mellitus with diabetic chronic kidney disease Anemia Edema Fibrillary glomerulonephritis Hyperparathyroidism [id number] Stage 3b chronic kidney disease (CKD) Type 2 diabetes mellitus with diabetic chronic kidney disease Anemia Edema Fibrillary glomerulonephritis Hyperparathyroidism [id number] Stage 3b chronic kidney disease (CKD) Type 2 diabetes mellitus with diabetic chronic kidney disease Anemia Edema Fibrillary glomerulonephritis Hyperkalemia Hyperparathyroidism [id number] Stage 3b chronic kidney disease (CKD) Type 2 diabetes mellitus with diabetic chronic kidney disease Anemia Edema Fibrillary glomerulonephritis Hyperkalemia Hyperparathyroidism [id number] Stage 3b chronic kidney disease (CKD) Type [...] for Visit Anemia Edema Fibrillary glomerulonephritis Hyperparathyroidism [id number] Stage 3b chronic kidney disease (CKD) Type 2 diabetes mellitus with diabetic chronic kidney disease Anemia Edema Fibrillary glomerulonephritis Hyperparathyroidism [id number] Stage 3b chronic kidney disease (CKD) Type 2 diabetes mellitus with diabetic chronic kidney disease Anemia Edema Fibrillary glomerulonephritis Hyperkalemia Hyperparathyroidism [id number] Stage 3b chronic kidney disease (CKD) Type 2 diabetes mellitus with diabetic chronic kidney disease Anemia Edema Fibrillary glomerulonephritis Hyperkalemia Hyperparathyroidism [id number] Stage 3b chronic kidney disease (CKD) Type [...] for Visit Anemia Edema Fibrillary glomerulonephritis Hyperparathyroidism [id number] Stage 3b chronic kidney disease (CKD) Type 2 diabetes mellitus with diabetic chronic kidney disease Anemia Edema Fibrillary glomerulonephritis Hyperkalemia Hyperparathyroidism [id number] Stage 3b chronic kidney disease (CKD) Type 2 diabetes mellitus with diabetic chronic kidney disease Anemia Edema Fibrillary glomerulonephritis Hyperkalemia Hyperparathyroidism [id number] Stage 3b chronic kidney disease (CKD) Type [...] for Visit Anemia Edema Fibrillary glomerulonephritis Hyperparathyroidism [id number] Stage 3b chronic kidney disease (CKD) Type 2 diabetes mellitus with diabetic chronic kidney disease Anemia Edema Fibrillary glomerulonephritis Hyperkalemia Hyperparathyroidism [id number] Stage 3b chronic kidney disease (CKD) Type 2 diabetes mellitus with diabetic chronic kidney disease Anemia Edema Fibrillary glomerulonephritis Hyperkalemia Hyperparathyroidism [id number] Stage 3b chronic kidney disease (CKD) Type [...] Visit Anemia Edema Fibrillary glomerulonephritis Hyperkalemia Hyperparathyroidism [id number] Stage 3b chronic kidney disease (CKD) Type 2 diabetes mellitus with diabetic chronic kidney disease Anemia Edema Fibrillary glomerulonephritis Hyperkalemia Hyperparathyroidism [id number] Stage 3b chronic kidney disease (CKD) Type [...] (CKD) Anemia Edema Fibrillary glomerulonephritis Hyperkalemia Hyperparathyroidism [id number] Stage 3b chronic kidney disease (CKD) Type [...] Visit Anemia Edema Fibrillary glomerulonephritis Hyperkalemia Hyperparathyroidism [id number] Stage 3b chronic kidney disease (CKD) Type [...] (CKD) Anemia Edema Fibrillary glomerulonephritis Hyperkalemia Hyperparathyroidism [id number] Stage 3b chronic kidney disease (CKD) Type [...] (CKD) Anemia Edema Fibrillary glomerulonephritis Hyperkalemia Hyperparathyroidism [id number] Stage 3b chronic kidney disease (CKD) Type 2 diabetes mellitus with diabetic chronic kidney disease Anemia Anemia of renal disease 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 [id number] Chief Complaint RENAL 2 WK INJ/RETAC RIT/NURSE [...] (CKD) Anemia Edema Fibrillary glomerulonephritis Hyperkalemia Hyperparathyroidism [id number] Stage 3b chronic kidney disease (CKD) Type 2 diabetes mellitus with diabetic chronic kidney disease Anemia Anemia of renal disease Stage 3b chronic kidney disease (CKD) Anemia Chronic kidney disease, stage IV (severe) Edema Fibrillary glomerulonephritis Hyperkalemia Hyperparathyroidism [id number] Type 2 diabetes mellitus with diabetic chronic [...] stage 4 due to type 1 diabetes melli s May 04, 2024 11:08am Anemia of renal disease June 03 11:32am 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 melli s June 03, 2024 11:32am Reason for Visit [...] stage 4 due to type 1 diabetes melli tus May 04, 2024 11:08am Anemia of renal disease June 03 11:32am 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 June 03, 2024 11:32am BMI 40.0-44.9, adult [...] stage 4 due to type 1 diabetes [facility] May 04, 2024 11:08am Anemia of renal disease June 03 11:32am 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 June 03, 2024 11:32am BMI 40.0-44.9, adult June 14, 2024 1:49pm Diabetes June 14, 2024 1 :49pm Dietary counseling and surveillance Freddy wilson 2024 1:49pm HTN (hypertension) June 14, 2024 1 :49pm Hyperlipidemia June 14, 2024 1 :49pm Anemia June 17, 2024 1 :50pm 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 [facility] June 17, 2024 1:50pm Chief Complaint Admit Date RENAL 3 WK INJ / RETACRIT / NURSE Ervin 2023 1:01pm RENAL 2 WK INJ / [...] stage 4 due to type 1 [facility] May 04, 2024 11:08am Anemia of renal disease June 03 11:32am 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 June 03, 2024 11:32am BMI 40.0-44.9, adult [...] stage 4 due to type 1 [facility] May 04, 2024 11:08am Anemia of renal disease June 03 11:32am 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 [facility] June 03, 2024 11:32am BMI 40.0-44.9, [...] chronic kidney disease July 27, 2024 1:45pm Chief Complaint Admit Date Retacrit injection June 03, 2024 1 1:32am RENAL 2-3 WK INJ F/U / RETACRIT / DR Cricket perez 2024 1:50pm RENAL 2 WEEK F/U July 27, 2024 1:4 5pm 2 week injection August 17, 2024 1:57 pm Reason for Visit Admit Date Anemia of renal disease June 03 11:32am 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 judith harris June 03, 2024 11:32am BMI 40.0-44.9, adult [...] chronic kidney disease July 27, 2024 1:45pm Back pain August 17, 2024 1:57 pm Additional Source Comments REASON FOR VISIT (unrecogniz ed section and content) Reason Comments Nail care Margie Martínez is a 83 y.o. female who presents for DM Foot Care PCP: Anika Light LV 10/31/23, A1C: 5.4, BS:, 93 SS: 7.5-8). Reason Comments Med Refill Reason Comments DM Foot Care PCP: Chester Lin LV 06/16/24, A1C: 5.4, BS: 100, SS: 7.5-8 Reason Comments Follow-up EST PT 14 month FU L S MAS, LABS [facility], CHEST XRAY OSIRIS Atrial Fibrillation Reason Onset Date Comments Med Refill 08/23/2024 INFORMATION SOURCE (unrecogn ized section and content) DATE CREATED AUTHOR 10/27/2022 [facility] DATE CREATED AUTHOR AUTHOR'S ORGANIZ ATION 09/08/2023 [facility] DATE CREATED AUTHOR AUTHOR'S ORGANIZ ATION 01/13/2024 [facility] DATE CREATED AUTHOR AUTHOR'S ORGANIZ ATION 05/12/2024 [facility] DATE CREATED AUTHOR AUTHOR'S ORGANIZ ATION 07/02/2024 [facility] EPIC DATE CREATED AUTHOR AUTHOR'S HYACINTH PIKE 08/26/2024 [facility] Care Teams (unrecognized sec tion and content) Team Status: Active Member Role Status Dates Anika Light 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 Primary Care Provider Active Team Status: Active Member Role Status Dates Rin Ramirez MD Attending Provider Active Star t: May 25, 2024 Anika Light 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 Primary Care Provider Active Start: May 25, 2024 Team Status: Inactive Member Role Status Dates Anika Light 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 Primary Care Provider Active Start: June 03, 2024 End: June 03, 2024 Becca Rodriguez MD Attending Provider Active Start : June 03, 2024 End: June 03, 2024 Team Status: Active Member Role Status Dates Anika Light 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 Primary Care Provider Active Start: June 10, 2024 Becca Rodriguez MD Attending Provider Active Start : June 10, 2024 Team Status: Inactive Member Role Status Dates Anika Light 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 Primary Care Provider Active Start: June 14, 2024 End: June 14, 2024 Chester Lin APRN Attending Provider Active Start: June 14, 2024 End: June 14, 2024 Team Status: Inactive Member Role Status Dates Anika Light 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 Primary Care Provider Active Start: June 17, 2024 End: June 17, 2024 Becca Rodriguez MD Attending Provider Active Start : June 17, 2024 End: June 17, 2024 Team Status: Inactive Member Role Status Dates Anika Light 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 Primary Care Provider Active Start: 2024 End: 2024 Rin Ramirez MD Attending Provider Active Star t: 2024 End: 2024 Team Status: Active Member Role Status Dates Rin Ramirez MD Attending Provider Active Star t: July 20, 2024 Anika Light 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 Primary Care Provider Active Start: July 20, 2024 Team Status: Inactive Member Role Status Dates Anika Light 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 Primary Care Provider Active Start: July 27, 2024 End: July 27, 2024 Rin Ramirez MD Attending Provider Active Star t: July 27, 2024 End: July 27, 2024 Team Status: Active Member Role Status Dates Rin Ramirez MD Attending Provider Active Star t: August 04, 2024 Anika Light 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 Primary Care Provider Active Start: August 04, 2024 Team Status: Inactive Member Role Status Dates Anika Light 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 Primary Care Provider Active Start: August 17, 2024 End: August 17, 2024 Rin Ramirez MD Attending Provider Active Star t: August 17, 2024 End: August 17, 2024 Team Status: Inactive Member Role Status Dates Anika Light 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 Primary Care Provider Active Start: March 23, 2024 End: March 23, 2024 Rin Ramirez MD Attending Provider Active Star t: March 23, 2024 End: March 23, 2024 Team Status: Inactive Member Role Status Dates Anika Light 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 Primary Care Provider Active Start: March 30, 2024 End: March 30, 2024 Rin Ramirez MD Attending Provider Active Star t: March 30, 2024 End: March 30, 2024 Team Status: Active Member Role Status Dates Rin Ramirez MD Attending Provider Active Star t: April 13, 2024 Anika Light 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 Primary Care Provider Active Start: April 13, 2024 Team Status: Inactive Member Role Status Dates Anika Light 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 Primary Care Provider Active Start: April 20, 2024 End: April 20, 2024 Rin Ramirez MD Attending Provider Active Star t: April 20, 2024 End: April 20, 2024 Team Status: Active Member Role Status Dates Anika Light 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 Primary Care Provider Active Start: April 28, 2024 Rin Ramirez MD Attending Provider Active Star t: April 28, 2024 Team Status: Inactive Member Role Status Dates Anika Light 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 Primary Care Provider Active Start: May 04, 2024 End: May 04, 2024 Rin Ramirez MD Attending Provider Active Star t: May 04, 2024 End: May 04, 2024 Team Status: Active Member Role Status Dates Rin Ramirez MD Attending Provider Active Star t: January 05, 2024 Anika Light 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 Primary Care Provider Active Start: January 05, 2024 Team Status: Inactive Member Role Status Dates Anika Light 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 Primary Care Provider Active Start: January 13, 2024 End: January 13, 2024 Rin Ramirez MD Attending Provider Active Star t: January 13, 2024 End: January 13, 2024 Team Status: Active Member Role Status Andrés Rodriguez MD Attending Provider Active Start : January 20, 2024 Anika Light , 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 Primary Care Provider Active Start: January 20, 2024 Team Status: Active Member Role Status Dates Rin Ramirez MD Attending Provider Active Star t: January 23, 2024 Anika Light 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 Primary Care Provider Active Start: January 23, 2024 Team Status: Inactive Member Role Status Andrés Light 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 Primary Care Provider Active Start: January 27, 2024 End: January 27, 2024 Rin Ramirez MD Attending Provider Active Star t: January 27, 2024 End: January 27, 2024 Team Status: Active Member Role Status Andrés Ramirez MD Attending Provider Active Star t: February 03, 2024 Anika Light 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 Primary Care Provider Active Start: February 03, 2024 Team Status: Inactive Member Role Status Andrés Light 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 Primary Care Provider Active Start: February 10, 2024 End: February 10, 2024 Rin Ramirez MD Attending Provider Active Star t: February 10, 2024 End: February 10, 2024 Team Status: Active Member Role Status Andrés Ramirez MD Attending Provider Active Star t: February 23, 2024 Anika Light 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 Primary Care Provider Active Start: February 23, 2024 Team Status: Inactive Member Role Status Andrés Light 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 Primary Care Provider Active Start: March 02, 2024 End: March 02, 2024 Rin Ramirez MD Attending Provider Active Star t: March 02, 2024 End: March 02, 2024 Team Status: Active Member Role Status Andrés Light 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 Primary Care Provider Active Start: March 17, 2024 Rin Ramirez MD Attending Provider Active Star t: March 17, 2024 Team Status: Inactive Member Role Status Dates Anika Light 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 Primary Care Provider Active Start: December 08, 2023 End: December 08, 2023 Chester Lin APRN Attending Provider Active Start: December 08, 2023 End: December 08, 2023 Team Status: Inactive Member Role Status Dates Anika Light 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 Primary Care Provider Active Start: December 11, 2023 End: December 11, 2023 Becca Rodriguez MD Attending Provider Active Start : December 11, 2023 End: December 11, 2023 Team Status: Inactive Member Role Status Dates Anika Light 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 Primary Care Provider Active Start: December 30, 2023 End: December 30, 2023 Rin Ramirez MD Attending Provider Active Star t: December 30, 2023 End: December 30, 2023 Team Status: Active Member Role Status Dates Anika Light 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 Primary Care Provider Active Start: October 30, 2023 Rin Ramirez MD Attending Provider Active Star t: October 30, 2023 Team Status: Inactive Member Role Status Dates Anika Light NP-C Primary Care Provider Active Start: November 05, 2023 End: November 05, 2023 Rin Ramirez MD Attending Provider Active Star t: November 05, 2023 End: November 05, 2023 Team Status: Active Member Role Status Dates Anika Light NP-C Primary Care Provider Active Start: November 13, 2023 Rin Ramirez MD Attending Provider Active Star t: November 13, 2023 Team Status: Inactive Member Role Status Dates Anika Light NP-C Primary Care Provider Active Start: November 18, 2023 End: November 18, 2023 Rin Ramirez MD Attending Provider Active Star t: November 18, 2023 End: November 18, 2023 Team Status: Active Member Role Status Dates Rin Ramirez MD Attending Provider Active Star t: November 27, 2023 Anika Light 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 Primary Care Provider Active Start: November 27, 2023 Team Status: Inactive Member Role Status Dates Anika Deepa Elaine , 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 Primary Care Provider Active Start: October 15, 2023 End: October 15, 2023 Rin Ramirez MD Attending Provider Active Star t: October 15, 2023 End: October 15, 2023 Team Status: Active Member Role Status Dates Anika Light 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 Primary Care Provider Active Start: September 16, 2023 Rin Ramirez MD Attending Provider Active Star t: September 16, 2023 Team Status: Inactive Member Role Status Dates Anika Light 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 Primary Care Provider Active Start: September 23, 2023 End: September 23, 2023 Rin Ramirez MD Attending Provider Active Star t: September 23, 2023 End: September 23, 2023 Team Status: Active Member Role Status Dates Rin Ramirez MD Attending Provider Active Star t: October 07, 2023 Anika Light 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 Primary Care Provider Active Start: October 07, 2023 Team Status: Inactive Member Role Status Dates Anika Light 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 Primary Care Provider Active Start: August 13, 2023 End: August 13, 2023 Rin Ramirez MD Attending Provider Active Star t: August 13, 2023 End: August 13, 2023 Team Status: Inactive Member Role Status Dates Anika Light 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 Primary Care Provider Active Start: August 20, 2023 End: August 20, 2023 Chester Lin APRN Attending Provider Active Start: August 20, 2023 End: August 20, 2023 Team Status: Inactive Member Role Status Dates Anika Light 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 Primary Care Provider Active Start: September 01, 2023 End: September 01, 2023 Rin Ramirez MD Attending Provider Active Star t: September 01, 2023 End: September 01, 2023 Team Status: Inactive Member Role Status Dates Anika Light 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 Primary Care Provider Active Start: September 09, 2023 End: September 09, 2023 Rin Ramirez MD Attending Provider Active Star t: September 09, 2023 End: September 09, 2023 Team Status: Active Member Role Status Dates Anika Light 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 Primary Care Provider Active Start: August 01, 2023 Rin Ramirez MD Attending Provider Active Star t: August 01, 2023 Team Status: Active Member Role Status Dates Anika Light 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 Primary Care Provider Active Start: August 05, 2023 Rin Ramirez MD Attending Provider Active Star t: August 05, 2023 Team Status: Inactive Member Role Status Dates Rin Ramirez MD Attending Provider Active Star t: April 22, 2023 End: April 22, 2023 Trade Mark Attorney Relationship Specialty Start Date End Date Cole Light MD [address] [place] [address] PCP - General Family Medicine 11/20/22 Trade Mark Attorney Relationship Specialty Start Date End Date Cole Light MD [address] [place] [address] PCP - General Family Medicine 11/20/22 Trade Mark Attorney Relationship Specialty Start Date End Date Anika Light APRN-TREASURY MANAGER [address] [facility], [place] [address] PCP - General Family Medicine 04/29/23 Trade Mark Attorney Relationship Specialty Start Date End Date Anika Light APRN-TREASURY MANAGER [address] [facility], [place] [address] PCP - General Family Medicine 04/29/23 Trade Mark Attorney Relationship Specialty Start Date End Date Anika Light APRN-TREASURY MANAGER [address] [facility], [place] [address] PCP - General Family Medicine 04/29/23 Trade Mark Attorney Relationship Specialty Start Date End Date Anika Light APRN-TREASURY MANAGER [address] [facility], [place] [address] PCP - General Family Medicine 04/29/23 Trade Mark Attorney Relationship Specialty Start Date End Date Anika Light APRN-CNP [address] [facility], [place] [address] PCP - General Family Medicine 04/29/23 Trade Mark Attorney Relationship Specialty Start Date End Date Cole Light MD [address] [place] [address] PCP - General Family Medicine 11/20/22 Trade Mark Attorney Relationship Specialty Start Date End Date Cole Light MD [address] [place], [place] [id number] PCP - General Family Medicine 11/20/22 Trade Mark Attorney Relationship Specialty Start Date End Date Anika Light APRN-CNP [address] [facility], [place] [address] PCP - General Family Medicine 04/29/23 Trade Mark Attorney Relationship Specialty Start Date End Date Anika Light APRN-CNP [address] [facility], [place] [address] PCP - General Family Medicine 04/29/23 Trade Mark Attorney Relationship Specialty Start Date End Date Anika Light APRN-CNP [address] [facility], [place] [address] PCP - General Family Medicine 04/29/23 Trade Mark Attorney Relationship Specialty Start Date End Date Anika Light APRN-CNP [address] [facility], [place] [address] PCP - General Family Medicine 04/29/23 Goals [...] BE BASED ON THE PRIMARY CLINICAL RECORDS. [facility] [employer] [facility]. provides no warranty or guarantee of the accuracy or completeness of information in this document.
[2024-09-02 10:21] LABS: Hemoglobin 10.1 g/dL (12.0-16.0); Mean Corpuscular HGB Conc 30.6 g/dL (29.9-35.2); Mean Corpuscular Hemoglobin 30.2 pg (26.7-34.0); Mean Corpuscular Volume 98.8 fL (81.0-99.0); Mean Platelet Volume 9.8 fL (9.5-13.5); Platelet Count 216 10^3/uL (150-450); Red Blood Count 3.34 10^6/uL (4.20-5.40); Red Cell Distribution Width 15.1 % (11.0-15.0); White Blood Count 4.9 10^3/uL (4.0-11.0)
== END 2024-09-02 09:50 | disposition home or self-care (01) ==
LOC: LAB 09:51
PROVIDERS: PCP Nurse Practitioner Family; Visit Provider Internal Medicine Nephrology
DX: N18.9 Chronic kidney disease, unspecified (principal); D63.1 Anemia in chronic kidney disease
CPT/HCPCS: 36415; 85027

== ENCOUNTER 2024-09-29 09:35 | Outpatient (OUT) | payer MEDICARE, SELFPAY ==
[2024-09-29 10:24] LABS: Hematocrit 32.8 % (36.0-48.0); Hemoglobin 9.7 g/dL (12.0-16.0); Mean Corpuscular HGB Conc 29.6 g/dL (29.9-35.2); Mean Corpuscular Hemoglobin 30.1 pg (26.7-34.0); Mean Corpuscular Volume 101.9 fL (81.0-99.0); Mean Platelet Volume 10.3 fL (9.5-13.5); Platelet Count 165 10^3/uL (150-450); Red Blood Count 3.22 10^6/uL (4.20-5.40); Red Cell Distribution Width 14.1 % (11.0-15.0); White Blood Count 3.8 10^3/uL (4.0-11.0)
[2024-09-29 11:00] LABS: Percent Iron Saturation 27.9 %
[2024-09-29 11:14] LABS: BUN Creatinine Ratio 22.4; Carbon Dioxide 31.4 mmol/L (21.0-32.0); Chloride 107 mmol/L (98-107); Estimated GFR (African America 22 (>=60 mL/min/1.73m^2); Estimated GFR (Non-African Ame 18 (>=60 mL/min/1.73m^2); Glucose 100 mg/dL (74-106); Phosphorus 3.9 mg/dL (2.6-4.7); Potassium 4.4 mmol/L (3.5-5.1); Sodium 142 mmol/L (136-145); Uric Acid 6.8 mg/dL (2.6-6.0)
[2024-09-30 11:08] LABS: PTH, Intact 80 pg/mL (15-65)
== END 2024-09-29 09:36 | disposition home or self-care (01) ==
LOC: LAB 09:38
PROVIDERS: PCP Nurse Practitioner Family; Visit Provider Internal Medicine
DX: N25.81 Secondary hyperparathyroidism of renal origin (principal); N18.4 Chronic kidney disease, stage 4 (severe); N18.9 Chronic kidney disease, unspecified; D63.1 Anemia in chronic kidney disease
CPT/HCPCS: 36415; 80069; 82306; 82728; 83540; 83550; 83970; 84550; 85027

== ENCOUNTER 2024-10-04 14:17 | Outpatient (OUT) | payer MEDICARE, SELFPAY ==
--- NOTE | 2024-10-04 15:41 | PM.CN ---
Consult Note: HPI Data of Consult Patient: new to practice Consult date: 10/04/24 Requesting Physician: Marie Jimenes MD Primary Care Provider: CED HENRY Consult Narrative Reason for consult: midback, low back, bilateral leg pain Narrative: 84yof who presents for evaluation. worsening pain in past several months in mid back, low back, bilateral legs. ct abdomen reviewed, showed fracture of t11 and t12, unknown acuity. has continued in a series of provider directed home exercises >6 weeks, without benefit. uses tylenol. cc:: CC: Marie Jimenes MD Review of Systems ROS Status of ROS 10 or more systems reviewed and unremarkable except as noted in history and below Meds Home Medications and Allergies Home Medications ?Medication ?Instructions ?Recorded ?Confirmed ?Type albuterol sulfate 90 mcg/actuation 2 puff inhalation Q4H PRN 05/08/23 05/08/23 History aerosol inhaler shortness of breath or wheezing alendronate 70 mg tablet 70 mg PO .weekly 05/08/23 05/08/23 History apixaban 5 mg tablet (Eliquis) 5 mg PO Q12H 05/08/23 05/08/23 History budesonide-formoterol HFA 160 1 puff inhalation Q12H 05/08/23 05/08/23 History mcg-4.5 mcg/actuation aerosol inhaler bumetanide 1 mg tablet 1 mg PO DAILY 05/08/23 05/08/23 History carvedilol 25 mg tablet 25 mg PO Q12H 05/08/23 05/08/23 History cholecalciferol (vitamin D3) 50 2,000 unit PO DAILY 05/08/23 05/08/23 History mcg (2,000 unit) capsule gemfibrozil 600 mg tablet 600 mg PO BID 05/08/23 05/08/23 History hydralazine 50 mg tablet 50 mg PO Q12H 05/08/23 05/08/23 History ipratropium 0.5 mg-albuterol 3 mg 1.5 ml inhalation Q4H PRN 05/08/23 05/08/23 History (2.5 mg base)/3 mL nebulization shortness of breath or wheezing soln levothyroxine 100 mcg tablet 100 mcg PO DAILY 05/08/23 05/08/23 History (Euthyrox) loratadine 10 mg capsule 10 mg PO DAILY 05/08/23 05/08/23 History losartan 100 mg tablet 100 mg PO DAILY 05/08/23 05/08/23 History metformin 1,000 mg tablet 1,000 mg PO BID 05/08/23 05/08/23 History nifedipine 60 mg tablet,extended 60 mg PO DAILY 05/08/23 05/08/23 History release 24 hr omeprazole 20 mg capsule,delayed 20 mg PO DAILY 05/08/23 05/08/23 History release rosuvastatin 5 mg tablet 5 mg PO DAILY 05/08/23 05/08/23 History spironolactone 25 mg tablet 25 mg PO DAILY 05/08/23 05/08/23 History oxycodone-acetaminophen 5 mg-325 1 tab PO Q6H PRN pain 3 days #12 03/21/24 Rx mg tablet (Percocet) tabs Allergies Allergy/AdvReac Type Severity Reaction Status Date / Time Penicillins Allergy Severe Unknown Verified 03/21/24 04:19 Sulfa (Sulfonamide Allergy Severe Unknown Verified 03/21/24 04:19 Antibiotics) sulfamethoxazole (From Allergy Severe Unknown Verified 03/21/24 04:19 Bactrim) trimethoprim (From Bactrim) Allergy Severe Unknown Verified 03/21/24 04:19 Exam Narrative Exam Narrative: Psych-alert and oriented x 3. Attentive and appropriate, constitutionally normal, displays normal mood and affect per situation. There are no obvious deficits in memory, reasoning, or intellect.? Skin-no obvious rashes, bruising, erythema noted to the patient's area of pain.? Extremities- extremities are warm with minimal edema and palpable pulses. Thoracic - tenderness to palpation noted in thoracic spine and paraspinal musculature. Pain is elicited with flexion and extension. Facet loading maneuvers are positive. Lumbar-tenderness to palpation noted in the lumbar spine and paraspinal musculature. Pain is elicited with flexion, extension, and lateral rotation of the lumbar spine. Range of motion is diminished with these motions. Facet loading maneuvers are positive.? Strength-noted to be unremarkable with the exception of decreased strength rated at 4 out of 5 in bilateral quadriceps femoris, anterior tibialis. Sensory-no notable sensory deficits in the bilateral lower extremities to touch or pinprick in all dermatomal distributions with the exception to decreased sensation to the bilateral L4, 5 dermatomal distribution Coordination remains intact.? Gait remains non-antalgic. Assessment and Plan Assessment and Plan (1) Lumbar stenosis with neurogenic claudication: (2) Thoracic compression fracture: Qualifiers: Encounter type: initial encounter Thoracic vertebra fracture level: T11 Qualified Code(s): S22.080A - Wedge compression fracture of T11-T12 vertebra, initial encounter for closed fracture Plan 84yof who presents for evaluation. failed conservative measures, as noted. imaging reviewed, as noted. given compression fractures of unknown acuity, will order thoracic mri without contrast. in terms of low back and radiating pain, will also order lumbar mri without contrast. she is in agreement. meds reviewed, uds obtained. will trial t#3 bid prn. follow up after imaging.
== END 2024-10-04 14:18 | disposition home or self-care (01) ==
LOC: PM 14:18
PROVIDERS: PCP Nurse Practitioner Family; Visit Provider Anesthesiology
DX: M48.062 Spinal stenosis, lumbar region with neurogenic claudication (principal); S22.080A Wedge compression fracture of T11-T12 vertebra, initial encounter for closed fracture
CPT/HCPCS: G0463

== ENCOUNTER 2024-10-22 10:59 | Outpatient (OUT) | payer MEDICARE, SELFPAY ==
--- OUTSIDE RECORDS SUMMARY | 2024-09-17 10:38 | XMS_ITS ---
Author Organization [facility] in [place] Address [address] [place] [address] Care Team Providers Care [employer] Protection Maintainer Name Role Phone Anika Light Primary Care Provider [phone] REASON FOR VISIT refill Medications Medication SIG (Take, Route, Frequency, Duration) Notes Start Date End Date Status Levothyroxine Sodium 125 MCG TAKE 1 TABL ET BY MOUTH ONCE DAILY IN THE MORNING for 90 days Active Encounters Encounter Location Date Provider Diagnosis [facility] [address] [place] [address] 09/17/2024 Anika Light Plan Of Treatment Medication Medication Name Sig Start Date Stop Date Notes Levothyroxine Sodium 125 MCG TAKE 1 TABL ET BY MOUTH ONCE DAILY IN THE MORNING for 90 days Next Appt Details Provider Name:Anika elder, 10/29/2024 01:00:00 PM, [address] [place], [address], Progress Notes * Margie MARTÍNEZ MDOB: [birth year] (84 yo F)Acc No.[id number]:09/17/2024 Patient: Tatiana DARLINGMargie Vaz :1940 A ge:84 Y S ex:Female Address:[address] [place] [address] , [place] [address] * Refills Refill Levothyroxine Sodium Tablet, 125 MCG, 90 Tablet, TAKE 1 TABLET BY MOUTH ONCE DAILY IN THE MORNING, 90 days, Refills=3 * true * Date: Generated for Geoffrey plaza/Chante/Ebonyitting on: 0 10/22/2024 11:03 AM EDT
--- OUTSIDE RECORDS SUMMARY | 2024-10-08 05:30 | XMS_ITS | Continuity of Care Document ---
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 2024 2:03pm Heart Rate 60 /min 60-100 August 17, 2024 2:03pm Respiratory rate 18 /min -August 17, 2024 2:03pm Oxygen saturation by Pulse oximetry 94 % 95-100 August 17, 2024 2:03 pm BP Systolic 132 mm[Hg] 100-140 August 17, 2024 2:03pm BP Diastolic 70 mm[Hg] 60-100 August 17, 2024 2:03pm BMI (Body Mass Index) 38.2 kg/m2 August 17, 2024 2:03pm Height 60 [in_i] September 13 10:56am Weight 89.41 kg September 13 10:56am Heart Rate 95 /min 60-100 September 13 10:56am Respiratory rate 18 /min -September 13, 2024 10:56am Oxygen saturation by Pulse oximetry 60 % 95-100 September 13, 2024 10: 56am BP Systolic 114 mm[Hg] 100-140 September 13 10:56am BP Diastolic 63 mm[Hg] 60-100 September 13 10:56am BMI (Body Mass Index) 38.5 kg/m2 September 13, 2024 10:56am Height 60 [in_i] October 05, 2024 1:18pm Heart Rate 64 /min 60-100 October 05, 2024 1:18pm Respiratory rate 16 /min -October 05, 2 025 1:18pm Oxygen saturation by Pulse oximetry 96 % 95-100 October 05, 2024 1:18p m BP Systolic 155 mm[Hg] 100-140 October 05, 2024 1:18pm BP Diastolic 75 mm[Hg] 60-100 October 05, 2024 1:18pm Inhaled oxygen flow rate 2 L/min October 05, 2024 1:18pm Advance Directives Advance Directive Response Recorded Date/ Time Advance Directives No October 05 1:34pm Insurance Providers Guarantor Donte Feng Address [address] [place] [address] [place] [phone] Contact Info. Home Phone: Payer Policy Id Coverage Id Subscriber's Name Subscriber Id Effective Date Expiration Date Estefanía JEAN [id number] Donte Feng [id number] Encounters Encounter Location(s) Arrival/Admit Date Discharge/Depart Date Provider(s) Departed Physician/Prov ider [facility] 2024 11:39am Rin Ramirez MD Non-patient / Non-visit [facility] Physician [facility] July 20, 2024 5:10pm Rin Ramirez MD Departed Physician/Prov ider Office Visit [facility] Physician [facility] July 27, 2024 1:45pm July 27, 2024 2:41pm Rin Ramirez MD Non-patient / Non-visit [facility] Physician [facility] August 04, 2024 10:12am Rin Ramirez MD Departed Physician/Prov ider Office Visit [facility] August 17, 2024 1:57pm August 17, 2024 2:49pm Rin Ramirez MD Departed Clinical [facility] [address] September 01, 2024 10:20am September 01, 2024 10:21am Rin Ramirez MD Non-patient / Non-visit [facility] Physician [facility] September 02, 2024 10:07am Rin Ramirez MD Departed Physician/Prov ider Office Visit [facility] September 13, 2024 10:16am September 13, 2024 11:27am Becca Rodriguez MD Non-patient / Non-visit [facility] Physician [facility] September 29, 2024 9:54am Becca Rodriguez MD Departed Physician/Prov ider Office Visit [facility] October 05, 2024 1:04pm October 05, 2024 1:35pm Rin Ramirez MD Recent Diagnosis Onset Date Admit Date Anemia July 13, 025 9:50am Chronic kidney disease, stage IV (severe) 2024 9:50am Edema July 13, 2 025 9:50am Fibrillary glomerulonephritis Fe bruary 2024 9:50am Hyperkalemia July 13, 2 025 9:50am Hyperparathyroidism June 9:50am Hypertensive chronic kidney disease with stage 1 through stage 4 chronic ki 2024 9:50a m Type 2 diabetes mellitus wit h diabetic chronic kidney disease 2024 9:50am Anemia July 27, 2024 1:45pm Chronic kidney disease, stage IV (severe) July 27, 2024 1:45pm Edema July 27, 2024 1:45pm Fibrillary glomerulonephritis [facility] 2024 1:45pm Hyperkalemia July 27, 2024 1:45pm Hyperparathyroidism July 27, 2024 1:45pm Hypertensive chronic kidney disease with stage 1 through stage 4 chronic ki July 27, 2024 1:45pm Type 2 diabetes mellitus wit h diabetic chronic kidney disease July 27, 2024 1:45pm Anemia of renal disease August 1:57pm Anemia of renal disease September 132024 10:16am Back pain September 13, 2024 10:16am Chronic kidney disease, stage IV (severe) September 13, 2024 10:16am Edema September 13, 2024 10:16am Fibrillary glomerulonephritis Ap ril 2024 10:16am Hyperkalemia September 13, 2024 10:16am Hyperparathyroidism September 13, 2024 10:16am Hypertensive chronic kidney disease with stage 1 through stage 4 chronic ki September 13, 2024 10:16am Type 2 diabetes mellitus wit h diabetic chronic kidney disease September 13, 2024 10:16am Anemia of renal disease September 1:04pm Back pain October 05, 2024 1 :04pm Chronic kidney disease, stage IV (severe) October 05, 2024 1:04pm Edema October 05, 2024 1 :04pm Fibrillary glomerulonephritis Ma y 2024 1:04pm Hyperkalemia October 05, 2024 1 :04pm Hyperparathyroidism October 05 1:04pm Hypertensive chronic kidney disease with stage 1 through stage 4 chronic ki October 05, 2024 1:04pm Type 2 diabetes mellitus wit h diabetic chronic kidney disease October 05, 2024 1:04pm Assessments Diagnosis Onset Date Resolution Status Admit Date Anemia acute 2024 9:50am Chronic kidney disease, stag e IV (severe) acute July 13, 2 025 9:50am Edema acute 2024 9:50am Fibrillary glomerulonephritis acute 2024 9:50am Hyperkalemia acute June 9:50am Hyperparathyroidism acute Febru 2024 9:50am Hypertensive chronic kidney disease with [...] kidney disease acute July 27, 2024 1:45pm Anemia of renal disease acute A pril 2024 1:57pm Anemia of renal disease acute A pril 2024 10:16am Back pain acute September 13 10:16am Chronic kidney disease, stag e IV (severe) acute September 13, 2024 10:16am Edema acute September 13 10:16am Fibrillary glomerulonephritis acute September 13, 2024 10:16am Hyperkalemia acute September 13, 2024 10:16am Hyperparathyroidism acute September 13, 2024 10:16am Hypertensive chronic kidney disease with stage 1 through stage 4 chronic ki acute September 13, 2024 10:16am Type 2 diabetes mellitus wit h diabetic chronic kidney disease acute September 13, 2024 10:16am Anemia of renal disease acute M ay 2024 1:04pm Back pain acute October 05, 2024 1:04pm Chronic kidney disease, stag e IV (severe) acute October 05, 2024 1 :04pm Edema acute October 05, 2024 1:04pm Fibrillary glomerulonephritis acute October 05, 2024 1:04pm Hyperkalemia acute October 05 1:04pm Hyperparathyroidism acute September 172024 1:04pm Hypertensive chronic kidney disease with stage 1 through stage 4 chronic ki acute October 05, 2024 1 :04pm Type 2 diabetes mellitus wit h diabetic chronic kidney disease acute October 05, 2024 1:04pm Plan of Treatment [facility] 11:33am 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 Her baseline serum creatinine is 2.0 to 2.2 mg/dL. 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 Continue losartan We will try to keep SBP < 120. Will add Aldactone 25 mg PO every other day. Avoid NSAIDs Will continue to follow RFP Q 2 months. Her hemoglobin is below the target goal Iron Sat is adequate with Infectafer. Will give PARVIN dose today.Will reduce the injection interval to Q 2 weeks Her serum potassium within normal limit with lokelma.Will reduce the dose to every other day Patient is currently on Nifedipine,Coreg, Cozaar,Bumex, and hydralazine . 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 There are no randomized control trials to guide optimal therapy. There are no therapies that have been clearly shown to be beneficial for primary fibrillation glomerulonephritis. In one study of case series about 45% of the patients developed end-stage renal disease over 4-5 years. Secondary reasons for fibrillary GN in this patient has been negative Due to patient's comorbidities, functioning status, and advanced age, we opted not to treat the patient with Rituxan. I believe the risks outweigh the benefits of Rituxan. Will continue to monitor renal function panel every 3 to 6 months along with proteinuria quantification. Diabetes is well controlled. Hemoglobin A1c runs between 6 and 7%. She has allergy to JANETH inhibitor. On Cozaar She has persistent edema due to underlying obstructive lung disease and morbid obesity in addtion to nephrotic range proteinuria with hypoalbuminemia likely contributing to legs edema..On Bumex 1 mg PO BID.Will add adalctone 25 PO 3XW.Continue low-salt diet Continue oral calcitriol 3 times a week.Will check PTH next week. 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 Her baseline serum creatinine fluctuates from diuresis Continues to have nephrotic range proteinuria. Continue losartan We will try to keep SBP < 120. Will continue Bumex and Aldactone for volume management Avoid NSAIDs Will continue to follow RFP in weeks . Her hemoglobin is below the target goal Iron Sat is adequate with Infectafer. Will give PARVIN dose today.repeat CBC in 2 weeks Her serum potassium within normal limit with krystlekelma.Will contnue Lokelma Patient is currently on Aldactone,Nifedipine,Coreg, Cozaar,Bumex, and hydralazine . BP is well controlled . 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 There are no randomized control trials to guide optimal therapy. There are no therapies that have been clearly shown to be beneficial for primary fibrillation glomerulonephritis. In one study of case series about 45% of the patients developed end-stage renal disease over 4-5 years. Secondary reasons for fibrillary GN in this patient has been negative Due to patient's comorbidities, functioning status, and advanced age, we opted not to treat the patient with Rituxan. I believe the risks outweigh the benefits of Rituxan. Will continue to monitor renal function panel every 3 to 6 months along with proteinuria quantification. Diabetes is well controlled. Hemoglobin A1c runs between 6 and 7%. She has allergy to JANETH inhibitor. On Cozaar She has persistent edema due to underlying obstructive lung disease and morbid obesity in addtion to nephrotic range proteinuria with hypoalbuminemia likely contributing to legs edema..On Bumex 1 mg PO BID ane adalctone 25 PO 3XW.Continue low-salt diet Continue oral calcitriol 3 times a week.PTH is 101 [facility] September 14, 2024 11: 31am Her hemoglobin is within the target goal. Will continue current dose of the PARVIN every 3 weeks. [address]cca Rodriguez 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 Her baseline serum creatinine fluctuates from diuresis Continues to have nephrotic range proteinuria. She was not able to tolerate ARB due to the hyperkalemia. We will try to keep SBP < 120. Will continue Bumex and Aldactone for volume management Her hemoglobin is within the target goal. Will continue current dose of the PARVIN every 3 weeks. 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 Will refer to the pain specialist. She had hyperkalemia due to CKD. Her serum potassium was within normal limit with Lokelma.Will continue Lokelma Patient is currently on Nifedipine,Coreg,Bumex, and hydralazine . BP is well controlled . 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 There are no randomized control trials to guide optimal therapy. There are no therapies that have been clearly shown to be beneficial for primary fibrillation glomerulonephritis. In one study of case series about 45% of the patients developed end-stage renal disease over 4-5 years. Secondary reasons for fibrillary GN in this patient has been negative Due to patient's comorbidities, functioning status, and advanced age, we opted not to treat the patient with Rituxan. I believe the risks outweigh the benefits of Rituxan. Will continue to monitor renal function panel every 3 to 6 months along with proteinuria quantification. Diabetes is well controlled. Hemoglobin A1c runs between 6 and 7%. She has allergy to JANETH inhibitor. She has persistent edema due to underlying obstructive lung disease and morbid obesity in addtion to nephrotic range proteinuria with hypoalbuminemia likely contributing to legs edema..On Bumex 1 mg PO BID Continue oral calcitriol 3 times a week. Author Soraida Albright [facility] Authored October 05, 2024 1:18p m Her hemoglobin is within the target goal. Will continue current dose of the PARVIN every 3 weeks. 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 Her baseline serum creatinine fluctuates from diuresis Continues to have nephrotic range proteinuria. She was not able to tolerate ARB due to the hyperkalemia. We will try to keep SBP < 120. 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 Will refer to the pain specialist. She had hyperkalemia due to CKD. Her serum potassium was within normal limit with Lokelma.Will continue Lokelma Patient is currently on Nifedipine,Coreg,Bumex, and hydralazine . BP is well controlled . 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 There are no randomized control trials to guide optimal therapy. There are no therapies that have been clearly shown to be beneficial for primary fibrillation glomerulonephritis. In one study of case series about 45% of the patients developed end-stage renal disease over 4-5 years. Secondary reasons for fibrillary GN in this patient has been negative Due to patient's comorbidities, functioning status, and advanced age, we opted not to treat the patient with Rituxan. I believe the risks outweigh the benefits of Rituxan. Will continue to monitor renal function panel every 3 to 6 months along with proteinuria quantification. Diabetes is well controlled. Hemoglobin A1c runs between 6 and 7%. She has allergy to JANETH inhibitor. She has persistent edema due to underlying obstructive lung disease and morbid obesity in addtion to nephrotic range proteinuria with hypoalbuminemia likely contributing to legs edema..On Bumex 1 mg PO BID Continue oral calcitriol 3 times a week. Future Tests Future scheduled test information is unavailable Pending Tests Test Name Ordered Date Scheduled Date Renal Function Panel 2024 11:27am 2 Weeks Renal Function Panel July 27, 2024 2:18pm 2 W eeks Renal Function Panel September 13, 2024 11:22am 3 Weeks Future Visits Future appointment information is unavailable Referrals to Other Providers Reason for Referral Referral Start Date Provider Provider Contact Information Provider Address M54.9 - Dorsalgia, unspecified September 13, 2024 [facility] Work Phone: [address] [address] Future Procedures Procedure Name Ordered Date Scheduled Date Hemogram CBC Without Diff 2024 11 :27am 2 Weeks Iron and TIBC Profile 2024 11:27a m 2 Weeks Ferritin 2024 11:27am 2 We eks Hemogram CBC Without Diff July 27, 2024 2:18p m 2 Weeks Hemogram CBC Without Diff August 17, 2024 2:02pm 3 Weeks Hemogram CBC Without Diff September 13, 2024 11:22 am 3 Weeks Iron and TIBC Profile September 13, 2024 11:22am 3 Weeks Ferritin September 13, 2024 11:22am 3 Weeks Hemogram CBC Without Diff October 05, 2024 1:06pm 3 Weeks Future Medications Future medication information is unavailable Patient Instructions Patient instructions are unavailable
--- OUTSIDE RECORDS SUMMARY | 2024-10-14 12:00 | XMS_ITS ---
Author Organization [facility] in [place] Address [address] [place] [address] Care Team Providers Care Package Pick Up Name Role Phone Anika Light Primary Care Provider REASON FOR VISIT HOUSECALL-SICK Medications Medication SIG (Take, Route, Frequency, Duration) Notes Start Date End Date Status traMADol HCl 25 MG one tablet Orally BI D PRN for 7 days 08/27/2024 Unknown tiZANidine HCl 4 MG 1 tablet at bedtime as needed Orally Once a day for 14 days 08/11/2024 Unknown Azithromycin 250 MG as directed Orally d aily for 5 days 03/24/2024 Active Levothyroxine Sodium 125 MCG TAKE 1 TABLET BY MOUTH ONCE DAILY IN THE MORNING for 90 days Unknown predniSONE 20 MG 2 tablet Orally Once a day for 5 days 10/14/2024 Active Warfarin Sodium 5 MG 1 tablet Orally Onc e a day Unknown Ozempic (0.25 or 0.5 MG/DOSE) 2 MG/3ML Inject 0.5mg Subcutaneous once weekly Unknown Omeprazole 20 MG 1 capsule 30 minutes before morning meal Orally Once a day for 90 days Unknown Vitamin D (Cholecalciferol) 50 MCG (1999 UT) 1 capsule Orally Once a day for 90 days 10/15/2022 Unknown Rosuvastatin Calcium 5 MG 1 tablet Orall y Once a day Unknown FreeStyle Deepti 2 Sensor - USE DIRECT ED CHANGE EVERY 14 DAYS. for 84 Days Unknown Loratadine 10 MG 1 tablet Orally Once a day- as needed for allergies Unknown hydrALAZINE HCl 50 MG 2 tablet Orally TI D for 90 days Unknown NIFEdipine ER Osmotic Release 60 MG 1 tablet Oral once daily for 90 days Unknown Losartan Potassium 100 MG TAKE 1 TABLET BY MOUTH ONCE DAILY Oral for 90 days Unknown Ferrous Sulfate 325 (65 Fe) MG 1 tablet Orally BID Unknown Carvedilol 12.5 MG 1 tablet with food O rally Twice a day for 90 days Unknown B Complex Unknown Calcitriol 0.25 MCG 1 capsule Orally Thr ee times a Week Unknown Bumetanide 1 MG 1 tablet Orally BID Unknown Advair Diskus 250-50 MCG/ACT 1 puff Inhalation Twice a day 10/27/2023 Unknown Albuterol-Ipratropium 10/27/2023 Unknown Albuterol Sulfate HFA 108 (90 Base) MCG/ACT INHALE 2 PUFFS BY MOUTH EVERY 6 HOURS NEEDED FOR WHEEZING FOR SHORTNESS OF BREATH Inhalation for 75 Days Unknown Amiodarone HCl 200 MG 1 tablet Orally BID Unknown Vital Signs Blood pressure systolic 150 mm Hg 10/15/19 25 Blood pressure diastolic 65 mm Hg 025 Heart Rate 62 /min 10/14/2024 Oximetry 93 % 10/14/2024 oxygen 2L Encounters Encounter Location Date Provider Diagnosis [address] [address] 10/14/2024 Anika Light Bronchitis J40 Assessments Encounter Date Diagnosis (ICD Code) Assessment Notes Treatment Notes Treatment Clinical Notes Section Notes 10/14/2024 Bronchitis (ICD-10 - J40) if not improving ,fu ER if needed over weekend monitor pulse ox Plan Of Treatment Medication Medication Name Sig Start Date Stop Date Notes Azithromycin 250 MG as directed Orally daily for 5 days predniSONE 20 MG 2 tablet Orally Once a day for 5 days Treatment Notes Assessment Notes Bronchitis if not improving ,fu ER if needed over weekend monitor pulse ox Next Appt Details Follow Up: prn, Reason: Provider Name:Anika elder, 10/29/2024 01:00:00 PM, [address] [place] [address], [id number], Progress Notes * Margie MARTÍNEZ MDOB: [birth year] (84 yo F)Acc No.[id number]:10/14/2024 Progress Note Patient: Tatiana Margie UNGER Provider: Vanesa Light ([facility]), CLIENT LEADER :1940 A ge:84 Y S ex:Female Date:10/14/2024 Address:[address] [place] [address] [address] [place] [id number] Check In:03:47 PM EST Subjective: * Chief Complaints: * 1 . HOUSECALL-SICK. * HPI: G eneral: Friday night sx started not feeling well cough sob O2 2L saw pain , Dr De La Torre ordered MRI back, thinks comp fx. * ROS: G eneral/Constitutional: Feeling Poorly a dmits. F ever d enies. H eadache d enies. W eight loss d enies. O phthalmologic: Discharge d enies. E ye Pain d enies. I tching and redness d enies. E NT: Nasal discharge d enies. N mabel congestion d enies.?Sore throat d enies. C ardiovascular: Chest tightness/ heavy pressure d enies. R apid heart rate d enies. S welling of extremities d enies. C hest pain d enies. ? R espiratory: Productive cough d enies. C hest pain d enies. C ough a dmits. S hortness of breath a dmits. W heezing d enies. G astrointestinal: Abdominal pain d enies. C onstipation d enies. D ecreased appetite d enies. D iarrhea d enies. N ausea d enies. V omiting?denies. G enitourinary: Urinary incontinence d enies. P ainful urination d enies. M usculoskeletal: Back pain a dmits. N lillie pain d enies. M uscle aches d enies. S kin: Rash d enies. S kin lesion(s) d enies. ? * Active Problem List K21.9 Gastro-esophageal re flux disease without esophagitis Modified On:05/02/2023W/U Status:confirmed E03.9 Hypothyroidism, unsp ecified Modified On:11/15/2022/U Status:confirmed I10 Essential (primary) hypertension Modified On:11/15/2022/U Status:confirmed I48.91 Atrial fibrillation Modified On:06/04/2023U Status:confirmed R53.1 Weak Modified On:05/16/2023 Status:confirmed R42 Dizziness Modified On:05/16/2023 Status:confirmed J44.9 Chronic obstructive pulmonary disease, unspecified Modified On:06/18/2023 Status:confirmed E78.2 Mixed hyperlipidemia Modified On:08/01/2023 Status:confirmed N05.9 Unspecified nephriti c syndrome with unspecified morphologic changes Modified On:09/08/2023U Status:confirmed D64.9 Anemia, unspecified Modified On:09/29/2023 Status:confirmed M81.0 Osteoporosis Modified On:10/20/2023 Status:confirmed J96.11 Chronic respiratory failure with hypoxia Modified On:10/27/2023 Status:confirmed N18.4 Chronic kidney disea se (CKD), stage 4 (severe) Modified On:04/30/2024 Status:confirmed E66.01 Class 2 severe obesi ty due to excess calories with serious comorbidity in adult, unspecified BMI Modified On:04/30/2024 Status:confirmed 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 Modified On:04/30/2024 Status:confirmed I50.32 Chronic diastolic (c ongestive) heart failure Modified On:04/30/2024 Status:confirmed E66.01 Morbid obesity due t o excess calories Modified On:06/18/2024 Status:confirmed Z99.89 Dependence on other enabling machines and devices Modified On:07/07/2024 Status:confirmed * Medical History: * Medications: U nknown Advair Diskus(Fluticasone-Salmeterol) 250-50 MCG/ACT Aerosol Powder Breath Activated 1 puff Inhalation Twice a day , Unknown Albuterol Sulfate HFA 108 (90 Base) MCG/ACT Aerosol Solution INHALE 2 PUFFS BY MOUTH EVERY 6 HOURS NEEDED FOR WHEEZING FOR SHORTNESS OF BREATH Inhalation , Unknown Albuterol-Ipratropium , Unknown Amiodarone HCl 200 MG Tablet 1 tablet Orally BID , Unknown B Complex , Unknown Bumetanide 1 MG Tablet 1 tablet Orally BID , Unknown Calcitriol 0.25 MCG Capsule 1 capsule Orally Three times a Week , Unknown Carvedilol 12.5 MG Tablet 1 tablet with food Orally Twice a day , Unknown Ferrous Sulfate 325 (65 Fe) MG Tablet 1 tablet Orally BID , Unknown FreeStyle Deepti 2 Sensor(Continuous Glucose Sensor) - Miscellaneous USE DIRECTED CHANGE EVERY 14 DAYS. , Unknown hydrALAZINE HCl 50 MG Tablet 2 tablet Orally TID , Unknown Levothyroxine Sodium 125 MCG Tablet TAKE 1 TABLET BY MOUTH ONCE DAILY IN THE MORNING , Unknown Loratadine 10 MG Tablet 1 tablet Orally Once a day- as needed for allergies , Unknown Losartan Potassium 100 MG Tablet TAKE 1 TABLET BY MOUTH ONCE DAILY Oral , Unknown NIFEdipine ER Osmotic Release 60 MG Tablet Extended Release 24 Hour 1 tablet Oral once daily , Unknown Omeprazole 20 MG Capsule Delayed Release 1 capsule 30 minutes before morning meal Orally Once a day , Unknown Ozempic (0.25 or 0.5 MG/DOSE)(Semaglutide(0.25 or 0.5MG/DOS)) 2 MG/3ML Solution Pen-injector Inject 0.5mg Subcutaneous once weekly , Unknown Rosuvastatin Calcium 5 MG Tablet 1 tablet Orally Once a day , Unknown tiZANidine HCl 4 MG Capsule 1 tablet at bedtime as needed Orally Once a day , Unknown traMADol HCl 25 MG Tablet one tablet Orally BID PRN , Unknown Vitamin D (Cholecalciferol) 50 MCG (1999) Capsule 1 capsule Orally Once a day , Unknown Warfarin Sodium 5 MG Tablet 1 tablet Orally Once a day Objective: * Vitals: B P:150/65mm Hg, HR:62/min, Oxygen sat %:93%. oxygen 2L. * Examination: G eneral Examinations: GENERAL APPEARANCE: a lert and oriented, i n no acute distress. EYES: c onjunctiva normal, sclera non-icteric. NOSE: n ormal external appearance. LUNGS: s cattered rhonci. CARDIO: r egular rate and rhythm, S1, S2 normal. MUSCULOSKELETAL: G ait and station normal. SKIN: w arm and dry. Assessment: * Assessment: 1. B jenaro - Mary40 (Primary) Plan: * Treatment: * Follow Up: p rn * * Electronically signed by Elizabeth Light , DELORES, RUBBER VULCANIZ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.CLIENT LEADER.[id number] on 10/18/2024 at 03:28 PM EDT Sign off status: Completed Visit Status: A RR (Check-In) true * Provider: Vanesa Light ([facility]), CLIENT LEADER Date: 0 10/14/2024 Generated for Geoffrey plaza/Chante/eTransmitting on: 0 10/22/2024 11:03 AM EDT History and Physical Notes * HPI (History of Present Illness) Category Sub-Category Detail Notes Category Not es General Friday night sx started not feeling well cough sob O2 2L saw pain Dr , Dr De La Torre ordered MRI back, thinks comp fx Examination Category Sub-Category Detail Notes Category Not es General Examinations GENERAL APPEARANCE: alert a nd oriented, in no acute distress EYES: conjunctiva normal, sclera non-icteric EARS: NOSE: normal external appe arance THROAT: CARDIO: regular rate and rhy thm, S1, S2 normal LUNGS: scattered rhonci ABDOMEN: SKIN: warm and dry BACK: MUSCULOSKELETAL: Gait and station nor mal LYMPH NODES:
--- OUTSIDE RECORDS SUMMARY | 2024-10-22 06:16 | XMS_ITS ---
Author Organization [facility] in [place] Address [address] [place] [address] Care Team Providers Care Wildlife Enforcement Major Name Role Phone Anika Light Primary Care Provider REASON FOR VISIT still sick Encounters Encounter Location Date Provider Diagnosis [facility] [address] [place] [phone] 10/22/2024 Anika Light Plan Of Treatment Next Appt Details Provider Name:Anika elder, 10/29/2024 01:00:00 PM, [address] [place], [address], Progress Notes * Margie MARTÍNEZ MDOB: [birth year] (84 yo F)Acc No.[id number]:10/22/2024 UNLOCKED PROGRESS NOTE Patient: Tatiana Margie UNGER :1940 A ge:84 Y S ex:Female Address:[address] [place] [address] , [place] [address] * * Date:
--- OUTSIDE RECORDS SUMMARY | 2024-10-22 11:05 | XMS_ITS | Clinical Summary ---
Author Organization [facility] Address [address] [place] [address] Care Team Providers Care Senior Graduate Advisor Name Role Phone Unavailable Primary Care Provider Unavailabl e Social History Tobacco Use Types Packs/Day Years Used Date Smoking Tobacco: Never Assessed Comments Unknown Sex and Gender Information Value Date Recorded Sex Assigned at Not on file Legal Sex Female 8:53 PM EST Gender Identity Not on file Sexual Orientation Not on file Plan of Treatment Not on file
--- OUTSIDE RECORDS SUMMARY | 2024-10-22 11:05 | XMS_ITS | Patient Health Record ---
Author Organization [facility] [place] Address [address] [place] [address] Care Team Providers Care Casting Room Helper Name Role Phone Anika Light Primary Care Provider [phone] JESSICA RAI Unavailable [phone] ANIKA LIGHT Unavailable [phone] Josiah Rai Unavailable [phone] Allergies Allergen (clinical drug ingredient) Drug/Non Drug Allergy documented on EMR Reaction Allergy Type Onset Date Status celecoxib CeleBREX unknown Drug Allergy Active angiotensin-converting enzyme inhibitor (FN) JANETH Inhibitors unknown Drug Allergy Acti ve aspirin Aspirin unknown Drug Allergy Active Substance with sulfonamide structure and antibacterial mechanism of action (substance) Sulfa Antibiotics unknown Drug Allergy Active ibuprofen Ibuprofen unknown Drug Allergy Active Penicillin unknown Drug Allergy Active Results Component Value Reference Range Notes XR DEXA axial skeleton Reviewed date:10/27/2023 01:34:17 PM Interpretation: Performing Lab: Notes/Report: Source Facility: [place] [address] XRay Report Signed Patient: MARGIE MARTÍNEZ MR#: [id number] : 1940 Acct:[id number] Age/Sex: 83 / F ADM Date: 10/24/23 Loc: RAD Attending Dr: ANIKA LIGHT Ordering Physician: ANIKA LIGHT Date of Service: 10/24/23 Procedure(s): XR DEXA axial skeleton Accession Number(s): [id number] cc: NAIKA LIGHT [place] [address] Patient Name: MARGIE MARTÍNEZ MRN: [id number] date: 1940 Sex: F Assigned Patient Location: [facility] Current Patient Location: [facility] Accession/Order Number: [id number] Exam Date: 10/24/2023 10:03 Report Date: 10/24/2023 10:36 At the request of: ANIKA LIGHT Procedure: XR DEXA axial skeleton EXAMINATION: XR DEXA axial skeleton HISTORY: Osteoporosis M81.0 COMPARISON: DEXA bone densitometry 05/28/2021 TECHNIQUE: Dual-energy X-ray absorptiometry (DXA) was performed. FINDINGS: SPINE ANALYSIS: Average bone mineral density is 1.167 g/cm2. T-score (standard deviation relative to young adult mean): -0.1 . +6.6% change since prior study. HIP ANALYSIS: Lowest bone mineral density is within the left femoral neck, 0.714 g/cm2. T-score (standard deviation relative to young adult mean): -2.3 . -1.8% change since prior study. XR/XR DEXA axial skeleton IMPRESSION: World [employer] Classification: Osteopenia - Moderate Fracture Risk FRAX: Could not be calculated. Electronically authenticated by: KULWINDER GARCIA Date: 10/24/2023 10:36 Dictated By: Kulwinder Garcia M.D. Signed By: 10/24/23 1039 DD/ 1036 TD/TT: Engineering Department Chair: [place] [address] XRay Report Signed Patient: TEENA MARTÍNEZ MR#: [id number] : 1940 Acct:[id number] Age/Sex: 83 / F ADM Date: 10/24/23 Loc: [facility] Attending Dr: ANIKA LIGHT Ordering Physician: ANIKA LIGHT Date of Service: 10/24/23 Procedure(s): XR DEX A axial skeleton Accession Number(s): [id number] cc: ANIKA LIGHT [place] [id number] Patient Name: MARGIE MARTÍNEZ MRN: [id number] date: 1940 Sex: F Assigned Patient Location: [facility] Current Patient Location: RAD Accession/Order Numb er: [id number] Exam Date: 10/24/2023 10:03 Report Date: 10/24/2023 10:36 At the request of: ANIKA LIGHT Procedure: XR DEXA axial skeleton EXAMINATION: XR DEXA axial skeleton HISTORY: Osteoporosi s M81.0 COMPARISON: DEXA bon e densitometry 05/28/2021 TECHNIQUE: Dual-ener gy X-ray absorptiometry (DXA) was performed. FINDINGS: SPINE ANALYSIS: Average bone mineral density is 1.167 g/cm2. T-score (standard deviation relative to young adult mean): -0.1 . +6.6% change since prior study. HIP ANALYSIS: Lowest bone mineral density is within the left femoral neck, 0.714 g/cm2. T-score (standard deviation relative to young adult mean): -2.3 . -1.8% change since prior study. XR/XR DEXA axial skeleton IMPRESSION: World [employer] Organization Classification: Osteopenia - Moderate Fracture Risk FRAX: Could not be calculated. Electronically authenticated by: KULWINDER GARCIA Date: 10/24/2023 10:36 Dictated By: Kulwinder Garcia M.D. Signed By: 10/24/23 1039 DD/ 1036 TD/TT: Engineering Department Chair: RENAL FUNCTION PANEL Reviewed date:10/30/2023 01:31:22 PM Interpretation: Performing Lab: Notes/Report: [facility] , Sodium 142 136-145 mmol/L Potassium 5.7 3.5-5.1 mmol/L Chloride 107 98-107 mmol/L Carbon Dioxide 28.1 21.0-32.0 mmol/L Anion Gap 12.6 Glucose 100 74-106 mg/dL Blood Urea Nitrogen 43.0 7.0-18.0 mg/dL Creatinine 2.52 0.55-1.02 mg/dL Estimated GFR ( Mary 22 >=60 Estimated GFR (Non- Jeanine 18 >=60 BUN Creatinine Ratio 17.1 Calcium 8.6 8.5-10.1 mg/dL Phosphorus 4.3 2.6-4.7 mg/dL Albumin Level 2.9 3.4-5.0 g/dL Performing Lab: see note ML - [facility] LB CBC no Diff (Hemogram) Reviewed date:10/30/2023 01:31:22 PM Interpretation: Performing Lab: Notes/Report: [facility] , White Blood Count 4.6 4.0-11.0 10 3/uL Red Blood Count 2.89 4.20-5.40 10 6/uL Hemoglobin 8.3 12.0-16.0 g/dL Hematocrit 28.0 36.0-48.0 % Mean Corpuscular Volume 96.9 81.0-99.0 fL Mean Corpuscular Hemoglobin 28.7 26.7-34.0 pg Mean Corpuscular HGB Conc 29.6 29.9-35.2 g/dL Red Cell Distribution Width 14.1 11.0-15.0 % Platelet Count 178 150-450 10 3/uL Mean Platelet Volume 9.8 9.5-13.5 fL Performing Lab: see note [facility] PTH, Intact Reviewed date:10/31/2023 02:35:27 PM Interpretation: Performing Lab: Notes/Report: [facility] , PTH, Intact 73 15-65 pg/mL Performed at: [facility] [address] [id number] Auto Service Representative: Deshaun Hunter PhD, Phone: [phone] Performing Lab: see note - [facility] LB RENAL FUNCTION PANEL Reviewed date:11/13/2023 02:28:14 PM Interpretation: Performing Lab: Notes/Report: [facility] , Sodium 143 136-145 mmol/L Potassium 4.8 3.5-5.1 mmol/L Chloride 106 98-107 mmol/L Carbon Dioxide 29.3 21.0-32.0 mmol/L Anion Gap 12.5 Glucose 97 74-106 mg/dL Blood Urea Nitrogen 47.0 7.0-18.0 mg/dL Creatinine 2.41 0.55-1.02 mg/dL Estimated GFR ( Mary 23 >=60 Estimated GFR (Non- Jeanine 19 >=60 BUN Creatinine Ratio 19.5 Calcium 8.4 8.5-10.1 mg/dL Phosphorus 4.2 2.6-4.7 mg/dL Albumin Level 3.1 3.4-5.0 g/dL Performing Lab: see note - [facility] LB LIPID PROFILE Reviewed date:12/24/2023 08:39:38 AM Interpretation: Performing Lab: Notes/Report: [facility] , Triglycerides 111 <=150 mg/dL Cholesterol 104 <=200 mg/dL HDL Cholesterol 47 40-60 mg/dL > or =60 mg/dl - LOW CARDIOVASCULAR RISK <40 mg/dl - HIGH CARDIOVASCULAR RISK LDL Cholesterol Calculated 34.8 <100 mg/dl OPTIMAL 100-129 mg/dl NEAR OR ABOVE OPTIMAL 130-159 mg/dl BORDERLINE HIGH 160-189 mg/dl HIGH >190 mg/dl VERY HIGH VLDL CHOLESTEROL 22.2 Chol HDL Ratio 2.2 3.3 - 4.4 LOW RISK 4.4 - 7.1 AVERAGE RISK 7.1 - 11.0 MODERATE RISK >11.0 HIGH RISK Performing Lab: see note ML - [facility] RENAL FUNCTION PANEL Reviewed date:12/24/2023 08:39:38 AM Interpretation: Performing Lab: Notes/Report: [facility] , Sodium 143 136-145 mmol/L Potassium 5.0 3.5-5.1 mmol/L Chloride 106 98-107 mmol/L Carbon Dioxide 30.7 21.0-32.0 mmol/L Anion Gap 11.3 Glucose 95 74-106 mg/dL Blood Urea Nitrogen 39.0 7.0-18.0 mg/dL Creatinine 2.10 0.55-1.02 mg/dL Estimated GFR ( Mary 27 >=60 Estimated GFR (Non- Jeanine 22 >=60 BUN Creatinine Ratio 18.6 Calcium 9.0 8.5-10.1 mg/dL Phosphorus 4.8 2.6-4.7 mg/dL Albumin Level 3.0 3.4-5.0 g/dL Performing Lab: see note ML - [facility] LB CBC no Diff (Hemogram) Reviewed date:12/24/2023 08:39:38 AM Interpretation: Performing Lab: Notes/Report: [facility] , White Blood Count 5.8 4.0-11.0 10 3/uL Red Blood Count 3.12 4.20-5.40 10 6/uL Hemoglobin 9.2 12.0-16.0 g/dL Hematocrit 30.9 36.0-48.0 % Mean Corpuscular Volume 99.0 81.0-99.0 fL Mean Corpuscular Hemoglobin 29.5 26.7-34.0 pg Mean Corpuscular HGB Conc 29.8 29.9-35.2 g/dL Red Cell Distribution Width 14.0 11.0-15.0 % Platelet Count 185 150-450 10 3/uL Mean Platelet Volume 9.8 9.5-13.5 fL Performing Lab: see note ML - [facility] CBC no Diff (Hemogram) Reviewed date:01/05/2024 12:23:48 PM Interpretation: Performing Lab: Notes/Report: [facility] , White Blood Count 5.7 4.0-11.0 10 3/uL Red Blood Count 3.26 4.20-5.40 10 6/uL Hemoglobin 9.8 12.0-16.0 g/dL Hematocrit 32.4 36.0-48.0 % Mean Corpuscular Volume 99.4 81.0-99.0 fL Mean Corpuscular Hemoglobin 30.1 26.7-34.0 pg Mean Corpuscular HGB Conc 30.2 29.9-35.2 g/dL Red Cell Distribution Width 14.2 11.0-15.0 % Platelet Count 211 150-450 10 3/uL Mean Platelet Volume 9.3 9.5-13.5 fL Performing Lab: see note ML - [facility] FERRITIN Reviewed date:01/20/2024 02:17:45 PM Interpretation: Performing Lab: Notes/Report: [facility] , Ferritin 36.0 8.0-252.0 ng/mL Performing Lab: see note ML - [facility] LB IRON AND TIBC Reviewed date:01/20/2024 02:17:45 PM Interpretation: Performing Lab: Notes/Report: [facility] , Iron 26.0 50.0-170.0 ug/dL Total Iron Binding Capacity 260.0 250.0-450.0 ug/dL Percent Iron Saturation 10.0 Performing Lab: see note ML - [facility] RENAL FUNCTION PANEL Reviewed date:01/20/2024 11:38:15 AM Interpretation: Performing Lab: Notes/Report: [facility] , Sodium 144 136-145 mmol/L Potassium 5.8 3.5-5.1 mmol/L Chloride 108 98-107 mmol/L Carbon Dioxide 31.6 21.0-32.0 mmol/L Anion Gap 10.2 Glucose 106 74-106 mg/dL Blood Urea Nitrogen 48.0 7.0-18.0 mg/dL Creatinine 2.06 0.55-1.02 mg/dL Estimated GFR ( Mary 28 >=60 Estimated GFR (Non- Jeanine 23 >=60 BUN Creatinine Ratio 23.3 Calcium 8.5 8.5-10.1 mg/dL Phosphorus 4.2 2.6-4.7 mg/dL Albumin Level 3.0 3.4-5.0 g/dL Performing Lab: see note ML - [facility] CBC no Diff (Hemogram) Reviewed date:01/20/2024 11:21:27 AM Interpretation: Performing Lab: Notes/Report: [facility] , White Blood Count 6.4 4.0-11.0 10 3/uL Red Blood Count 3.20 4.20-5.40 10 6/uL Hemoglobin 9.6 12.0-16.0 g/dL Hematocrit 32.5 36.0-48.0 % Mean Corpuscular Volume 101.6 81.0-99.0 fL Mean Corpuscular Hemoglobin 30.0 26.7-34.0 pg Mean Corpuscular HGB Conc 29.5 29.9-35.2 g/dL Red Cell Distribution Width 15.0 11.0-15.0 % Platelet Count 196 150-450 10 3/uL Mean Platelet Volume 9.6 9.5-13.5 fL Performing Lab: see note ML - [facility] RENAL FUNCTION PANEL Reviewed date:01/23/2024 10:36:15 AM Interpretation: Performing Lab: Notes/Report: [facility] , Sodium 144 136-145 mmol/L Potassium 5.8 3.5-5.1 mmol/L Chloride 107 98-107 mmol/L Carbon Dioxide 30.8 21.0-32.0 mmol/L Anion Gap 12.0 Glucose 100 74-106 mg/dL Blood Urea Nitrogen 44.0 7.0-18.0 mg/dL Creatinine 2.09 0.55-1.02 mg/dL Estimated GFR ( Mary 27 >=60 Estimated GFR (Non- Jeanine 23 >=60 BUN Creatinine Ratio 21.1 Calcium 8.6 8.5-10.1 mg/dL Phosphorus 4.1 2.6-4.7 mg/dL Albumin Level 3.0 3.4-5.0 g/dL Performing Lab: see note ML - [facility] LB CBC no Diff (Hemogram) Reviewed date:02/23/2024 12:47:58 PM Interpretation: Performing Lab: Notes/Report: [facility] , White Blood Count 4.8 4.0-11.0 10 3/uL Red Blood Count 3.30 4.20-5.40 10 6/uL Hemoglobin 9.7 12.0-16.0 g/dL Hematocrit 32.8 36.0-48.0 % Mean Corpuscular Volume 99.4 81.0-99.0 fL Mean Corpuscular Hemoglobin 29.4 26.7-34.0 pg Mean Corpuscular HGB Conc 29.6 29.9-35.2 g/dL Red Cell Distribution Width 15.1 11.0-15.0 % Platelet Count 170 150-450 10 3/uL Mean Platelet Volume 9.7 9.5-13.5 fL Performing Lab: see note ML - [facility] LB FERRITIN Reviewed date:03/17/2024 01:55:46 PM Interpretation: Performing Lab: Notes/Report: [facility] , Ferritin 65.0 8.0-252.0 ng/mL Performing Lab: see note ML - [facility] LB FOLATE Reviewed date:03/17/2024 01:55:46 PM Interpretation: Performing Lab: Notes/Report: [facility] , Folate 11.70 8.60-58.90 ng/mL Performing Lab: see note ML - [facility] LB IRON AND TIBC Reviewed date:03/17/2024 12:14:56 PM Interpretation: Performing Lab: Notes/Report: [facility] , Iron 51.0 50.0-170.0 ug/dL Total Iron Binding Capacity 225.0 250.0-450.0 ug/dL Percent Iron Saturation 22.7 Performing Lab: see note ML - [facility] LB MAGNESIUM Reviewed date:03/17/2024 12:14:56 PM Interpretation: Performing Lab: Notes/Report: [facility] , Magnesium 2.2 1.8-2.4 mg/dL Performing Lab: see note ML - [facility] CBC no Diff (Hemogram) Reviewed date:03/17/2024 12:14:56 PM Interpretation: Performing Lab: Notes/Report: [facility] , White Blood Count 6.3 4.0-11.0 10 3/uL Red Blood Count 3.32 4.20-5.40 10 6/uL Hemoglobin 9.8 12.0-16.0 g/dL Hematocrit 32.8 36.0-48.0 % Mean Corpuscular Volume 98.8 81.0-99.0 fL Mean Corpuscular Hemoglobin 29.5 26.7-34.0 pg Mean Corpuscular HGB Conc 29.9 29.9-35.2 g/dL Red Cell Distribution Width 14.8 11.0-15.0 % Platelet Count 179 150-450 10 3/uL Mean Platelet Volume 10.1 9.5-13.5 fL Performing Lab: see note ML - [facility] RENAL FUNCTION PANEL Reviewed date:04/13/2024 03:29:58 PM Interpretation: Performing Lab: Notes/Report: [facility] , Sodium 146 136-145 mmol/L Potassium 4.4 3.5-5.1 mmol/L Chloride 106 98-107 mmol/L Carbon Dioxide 32.0 21.0-32.0 mmol/L Anion Gap 12.4 Glucose 135 74-106 mg/dL Blood Urea Nitrogen 44.0 7.0-18.0 mg/dL Creatinine 2.22 0.55-1.02 mg/dL Estimated GFR ( Mary 26 >=60 mL/min/1.73m 2 Estimated GFR (Non- Jeanine 21 >=60 mL/min/1.73m 2 BUN Creatinine Ratio 19.8 Calcium 9.5 8.5-10.1 mg/dL Phosphorus 3.7 2.6-4.7 mg/dL Albumin Level 2.9 3.4-5.0 g/dL Performing Lab: see note ML - [facility] CBC no Diff (Hemogram) Reviewed date:04/13/2024 03:29:58 PM Interpretation: Performing Lab: Notes/Report: [facility] , White Blood Count 7.1 4.0-11.0 10 3/uL Red Blood Count 3.03 4.20-5.40 10 6/uL Hemoglobin 9.0 12.0-16.0 g/dL Hematocrit 30.3 36.0-48.0 % Mean Corpuscular Volume 100.0 81.0-99.0 fL Mean Corpuscular Hemoglobin 29.7 26.7-34.0 pg Mean Corpuscular HGB Conc 29.7 29.9-35.2 g/dL Red Cell Distribution Width 14.5 11.0-15.0 % Platelet Count 223 150-450 10 3/uL Mean Platelet Volume 9.9 9.5-13.5 fL Performing Lab: see note ML - [facility] LB FERRITIN Reviewed date:04/29/2024 09:52:40 AM Interpretation: Performing Lab: Notes/Report: [facility] , Ferritin 58.0 8.0-252.0 ng/mL Performing Lab: see note ML - [facility] LB FOLATE Reviewed date:04/29/2024 09:52:40 AM Interpretation: Performing Lab: Notes/Report: [facility] , Folate 13.00 8.60-58.90 ng/mL Performing Lab: see note ML - [facility] LB IRON AND TIBC Reviewed date:04/28/2024 12:57:46 PM Interpretation: Performing Lab: Notes/Report: [facility] , Iron 49.0 50.0-170.0 ug/dL Total Iron Binding Capacity 271.0 250.0-450.0 ug/dL Percent Iron Saturation 18.1 Performing Lab: see note ML - [facility] LB CBC no Diff (Hemogram) Reviewed date:04/28/2024 12:53:48 PM Interpretation: Performing Lab: Notes/Report: [facility] , White Blood Count 5.0 4.0-11.0 10 3/uL Red Blood Count 3.13 4.20-5.40 10 6/uL Hemoglobin 9.2 12.0-16.0 g/dL Hematocrit 31.4 36.0-48.0 % Mean Corpuscular Volume 100.3 81.0-99.0 fL Mean Corpuscular Hemoglobin 29.4 26.7-34.0 pg Mean Corpuscular HGB Conc 29.3 29.9-35.2 g/dL Red Cell Distribution Width 14.7 11.0-15.0 % Platelet Count 205 150-450 10 3/uL Mean Platelet Volume 9.9 9.5-13.5 fL Performing Lab: see note - [facility] LB CBC no Diff (Hemogram) Reviewed date:05/25/2024 12:50:11 PM Interpretation: Performing Lab: Notes/Report: [facility] , White Blood Count 4.5 4.0-11.0 10 3/uL Red Blood Count 3.08 4.20-5.40 10 6/uL Hemoglobin 9.1 12.0-16.0 g/dL Hematocrit 30.7 36.0-48.0 % Mean Corpuscular Volume 99.7 81.0-99.0 fL Mean Corpuscular Hemoglobin 29.5 26.7-34.0 pg Mean Corpuscular HGB Conc 29.6 29.9-35.2 g/dL Red Cell Distribution Width 13.9 11.0-15.0 % Platelet Count 162 150-450 10 3/uL Mean Platelet Volume 10.3 9.5-13.5 fL Performing Lab: see note ML - [facility] LB FERRITIN Reviewed date:06/10/2024 02:10:18 PM Interpretation: Performing Lab: Notes/Report: [facility] , Ferritin 49.0 8.0-252.0 ng/mL Performing Lab: see note - [facility] LB IRON AND TIBC Reviewed date:07/08/2024 03:46:37 PM Interpretation: Performing Lab: Notes/Report: [facility] , Iron 98.0 50.0-170.0 ug/dL Total Iron Binding Capacity 245.0 250.0-450.0 ug/dL Percent Iron Saturation 40.0 Performing Lab: see note - [facility] LB CBC no Diff (Hemogram) Reviewed date:07/08/2024 03:46:37 PM Interpretation: Performing Lab: Notes/Report: [facility] , White Blood Count 5.6 4.0-11.0 10 3/uL Red Blood Count 3.00 4.20-5.40 10 6/uL Hemoglobin 8.8 12.0-16.0 g/dL Hematocrit 29.7 36.0-48.0 % Mean Corpuscular Volume 99.0 81.0-99.0 fL Mean Corpuscular Hemoglobin 29.3 26.7-34.0 pg Mean Corpuscular HGB Conc 29.6 29.9-35.2 g/dL Red Cell Distribution Width 14.4 11.0-15.0 % Platelet Count 149 150-450 10 3/uL Mean Platelet Volume 9.5 9.5-13.5 fL Performing Lab: see note - [facility] FERRITIN Reviewed date:07/26/2024 10:49:38 AM Interpretation: Performing Lab: Notes/Report: [facility] , Ferritin 688.0 8.0-252.0 ng/mL Performing Lab: see note [facility] IRON AND TIBC Reviewed date:07/26/2024 10:49:38 AM Interpretation: Performing Lab: Notes/Report: [facility] , Iron 75.0 50.0-170.0 ug/dL Total Iron Binding Capacity 218.0 250.0-450.0 ug/dL Percent Iron Saturation 34.4 Performing Lab: see note - [facility] CBC no Diff (Hemogram) Reviewed date:07/26/2024 10:49:38 AM Interpretation: Performing Lab: Notes/Report: [facility] , White Blood Count 5.4 4.0-11.0 10 3/uL Red Blood Count 3.05 4.20-5.40 10 6/uL Hemoglobin 9.1 12.0-16.0 g/dL Hematocrit 30.9 36.0-48.0 % Mean Corpuscular Volume 101.3 81.0-99.0 fL Mean Corpuscular Hemoglobin 29.8 26.7-34.0 pg Mean Corpuscular HGB Conc 29.4 29.9-35.2 g/dL Red Cell Distribution Width 15.9 11.0-15.0 % Platelet Count 178 150-450 10 3/uL Mean Platelet Volume 10.0 9.5-13.5 fL Performing Lab: see note - [facility] LB PTH, Intact Reviewed date:07/26/2024 10:49:38 AM Interpretation: Performing Lab: Notes/Report: [facility] , PTH, Intact 101 15-65 pg/mL Performed at: [facility] [place] [id number] Auto Service Representative: Deshaun Hunter PhD, Phone: [phone] Performing Lab: see note LC - [facility] LB RENAL FUNCTION PANEL Reviewed date:08/04/2024 12:03:46 PM Interpretation: Performing Lab: Notes/Report: [facility] , Sodium 141 136-145 mmol/L Potassium 4.6 3.5-5.1 mmol/L Chloride 105 98-107 mmol/L Carbon Dioxide 29.7 21.0-32.0 mmol/L Anion Gap 10.9 Glucose 122 74-106 mg/dL Blood Urea Nitrogen 43.0 7.0-18.0 mg/dL Creatinine 2.73 0.55-1.02 mg/dL Estimated GFR ( Mary 20 >=60 mL/min/1.73m 2 Estimated GFR (Non- Jeanine 17 >=60 mL/min/1.73m 2 BUN Creatinine Ratio 15.8 Calcium 8.9 8.5-10.1 mg/dL Phosphorus 3.6 2.6-4.7 mg/dL Albumin Level 3.2 3.4-5.0 g/dL Performing Lab: see note ML - [facility] LB IRON AND TIBC Reviewed date:09/30/2024 11:08:13 AM Interpretation: Performing Lab: Notes/Report: [facility] , Iron 62.0 50.0-170.0 ug/dL Total Iron Binding Capacity 222.0 250.0-450.0 ug/dL Percent Iron Saturation 27.9 Performing Lab: see note ML - [facility] LB RENAL FUNCTION PANEL Reviewed date:09/30/2024 11:08:13 AM Interpretation: Performing Lab: Notes/Report: [facility] , Sodium 142 136-145 mmol/L Potassium 4.4 3.5-5.1 mmol/L Chloride 107 98-107 mmol/L Carbon Dioxide 31.4 21.0-32.0 mmol/L Anion Gap 8.0 Glucose 100 74-106 mg/dL Blood Urea Nitrogen 57.0 7.0-18.0 mg/dL Creatinine 2.55 0.55-1.02 mg/dL Estimated GFR ( Mary 22 >=60 mL/min/1.73m 2 Estimated GFR (Non- Jeanine 18 >=60 mL/min/1.73m 2 BUN Creatinine Ratio 22.4 Calcium 9.0 8.5-10.1 mg/dL Phosphorus 3.9 2.6-4.7 mg/dL Albumin Level 3.0 3.4-5.0 g/dL Performing Lab: see note ML - [facility] LB URIC ACID SERUM Reviewed date:09/30/2024 11:08:13 AM Interpretation: Performing Lab: Notes/Report: [facility] , Uric Acid 6.8 2.6-6.0 mg/dL Performing Lab: see note ML - [facility] LB CBC no Diff (Hemogram) Reviewed date:09/30/2024 11:08:13 AM Interpretation: Performing Lab: Notes/Report: [facility] , White Blood Count 3.8 4.0-11.0 10 3/uL Red Blood Count 3.22 4.20-5.40 10 6/uL Hemoglobin 9.7 12.0-16.0 g/dL Hematocrit 32.8 36.0-48.0 % Mean Corpuscular Volume 101.9 81.0-99.0 fL Mean Corpuscular Hemoglobin 30.1 26.7-34.0 pg Mean Corpuscular HGB Conc 29.6 29.9-35.2 g/dL Red Cell Distribution Width 14.1 11.0-15.0 % Platelet Count 165 150-450 10 3/uL Mean Platelet Volume 10.3 9.5-13.5 fL Performing Lab: see note ML - [facility] PTH, Intact Reviewed date:09/30/2024 01:18:35 PM Interpretation: Performing Lab: Notes/Report: [facility] , PTH, Intact 80 15-65 pg/mL Performed at: - [facility] [address] [id number] Auto Service Representative: Deshaun Hunter PhD, Phone: [phone] Performing Lab: see note - [facility] LB VITAMIN D 25 [place] Reviewed date:09/30/2024 11:08:13 AM Interpretation: Performing Lab: Notes/Report: [facility] , Vitamin D 17.6 <20 ng/mL Vit D deficient 20-<30 ng/mL Vit D insufficient 30-100 ng/mL Vit D sufficient >100 ng/mL Potential Toxicity Performing Lab: see note ML - [facility] FERRITIN Reviewed date:09/30/2024 11:08:13 AM Interpretation: Performing Lab: Notes/Report: [facility] , Ferritin 197.0 8.0-252.0 ng/mL Performing Lab: see note - [facility] CBC no Diff (Hemogram) Reviewed date:09/02/2024 11:54:18 AM Interpretation: Performing Lab: Notes/Report: [facility] , White Blood Count 4.9 4.0-11.0 10 3/uL Red Blood Count 3.34 4.20-5.40 10 6/uL Hemoglobin 10.1 12.0-16.0 g/dL Hematocrit 33.0 36.0-48.0 % Mean Corpuscular Volume 98.8 81.0-99.0 fL Mean Corpuscular Hemoglobin 30.2 26.7-34.0 pg Mean Corpuscular HGB Conc 30.6 29.9-35.2 g/dL Red Cell Distribution Width 15.1 11.0-15.0 % Platelet Count 216 150-450 10 3/uL Mean Platelet Volume 9.8 9.5-13.5 fL Performing Lab: see note ML - [facility] CBC no Diff (Hemogram) Reviewed date:08/04/2024 12:03:46 PM Interpretation: Performing Lab: Notes/Report: [facility] , White Blood Count 6.1 4.0-11.0 10 3/uL Red Blood Count 3.36 4.20-5.40 10 6/uL Hemoglobin 10.1 12.0-16.0 g/dL Hematocrit 33.2 36.0-48.0 % Mean Corpuscular Volume 98.8 81.0-99.0 fL Mean Corpuscular Hemoglobin 30.1 26.7-34.0 pg Mean Corpuscular HGB Conc 30.4 29.9-35.2 g/dL Red Cell Distribution Width 15.4 11.0-15.0 % Platelet Count 196 150-450 10 3/uL Mean Platelet Volume 9.5 9.5-13.5 fL Performing Lab: see note ML - [facility] RENAL FUNCTION PANEL Reviewed date:07/26/2024 10:49:38 AM Interpretation: Performing Lab: Notes/Report: [facility] [facility] , Sodium 144 136-145 mmol/L Potassium 4.4 3.5-5.1 mmol/L Chloride 107 98-107 mmol/L Carbon Dioxide 33.3 21.0-32.0 mmol/L Anion Gap 8.1 Glucose 124 74-106 mg/dL Blood Urea Nitrogen 33.0 7.0-18.0 mg/dL Creatinine 2.88 0.55-1.02 mg/dL Estimated GFR ( Mary 19 >=60 mL/min/1.73m 2 Estimated GFR (Non- Jeanine 16 >=60 mL/min/1.73m 2 BUN Creatinine Ratio 11.5 Calcium 8.5 8.5-10.1 mg/dL Phosphorus 4.0 2.6-4.7 mg/dL Albumin Level 3.1 3.4-5.0 g/dL Performing Lab: see note ML - [facility] RENAL FUNCTION PANEL Reviewed date:07/08/2024 03:46:37 PM Interpretation: Performing Lab: Notes/Report: [facility] , Sodium 149 136-145 mmol/L Potassium 3.3 3.5-5.1 mmol/L Chloride 110 98-107 mmol/L Carbon Dioxide 34.1 21.0-32.0 mmol/L Anion Gap 8.2 Glucose 101 74-106 mg/dL Blood Urea Nitrogen 41.0 7.0-18.0 mg/dL Creatinine 2.14 0.55-1.02 mg/dL Estimated GFR ( Mary 27 >=60 mL/min/1.73m 2 Estimated GFR (Non- Jeanine 22 >=60 mL/min/1.73m 2 BUN Creatinine Ratio 19.2 Calcium 8.8 8.5-10.1 mg/dL Phosphorus 3.1 2.6-4.7 mg/dL Albumin Level 3.1 3.4-5.0 g/dL Performing Lab: see note ML - [facility] LB MAGNESIUM Reviewed date:07/08/2024 03:46:37 PM Interpretation: Performing Lab: Notes/Report: [facility] , Magnesium 1.9 1.8-2.4 mg/dL Performing Lab: see note - [facility] LB LIPID PROFILE Reviewed date:07/08/2024 03:46:37 PM Interpretation: Performing Lab: Notes/Report: [facility] , Triglycerides 113 <=150 mg/dL Cholesterol 106 <=200 mg/dL HDL Cholesterol 46 40-60 mg/dL > or =60 mg/dl - LOW CARDIOVASCULAR RISK <40 mg/dl - HIGH CARDIOVASCULAR RISK LDL Cholesterol Calculated 37.4 <100 mg/dl OPTIMAL 100-129 mg/dl NEAR OR ABOVE OPTIMAL 130-159 mg/dl BORDERLINE HIGH 160-189 mg/dl HIGH >190 mg/dl VERY HIGH VLDL CHOLESTEROL 22.6 Chol HDL Ratio 2.3 3.3 - 4.4 LOW RISK 4.4 - 7.1 AVERAGE RISK 7.1 - 11.0 MODERATE RISK >11.0 HIGH RISK Performing Lab: see note ML - [facility] LB FERRITIN Reviewed date:07/08/2024 03:46:37 PM Interpretation: Performing Lab: Notes/Report: [facility] , Ferritin 515.0 8.0-252.0 ng/mL Performing Lab: see note ML - [facility] LB CBC no Diff (Hemogram) Reviewed date:06/10/2024 10:31:11 AM Interpretation: Performing Lab: Notes/Report: [facility] , White Blood Count 5.9 4.0-11.0 10 3/uL Red Blood Count 3.11 4.20-5.40 10 6/uL Hemoglobin 9.1 12.0-16.0 g/dL Hematocrit 30.6 36.0-48.0 % Mean Corpuscular Volume 98.4 81.0-99.0 fL Mean Corpuscular Hemoglobin 29.3 26.7-34.0 pg Mean Corpuscular HGB Conc 29.7 29.9-35.2 g/dL Red Cell Distribution Width 14.2 11.0-15.0 % Platelet Count 187 150-450 10 3/uL Mean Platelet Volume 10.1 9.5-13.5 fL Performing Lab: see note ML - [facility] LB RENAL FUNCTION PANEL Reviewed date:06/10/2024 02:10:18 PM Interpretation: Performing Lab: Notes/Report: [facility] , Sodium 146 136-145 mmol/L Potassium 3.7 3.5-5.1 mmol/L Chloride 106 98-107 mmol/L Carbon Dioxide 35.1 21.0-32.0 mmol/L Anion Gap 8.6 Glucose 111 74-106 mg/dL Blood Urea Nitrogen 38.0 7.0-18.0 mg/dL Creatinine 2.18 0.55-1.02 mg/dL Estimated GFR ( Mary 26 >=60 mL/min/1.73m 2 Estimated GFR (Non- Jeanine 22 >=60 mL/min/1.73m 2 BUN Creatinine Ratio 17.4 Calcium 8.8 8.5-10.1 mg/dL Phosphorus 3.6 2.6-4.7 mg/dL Albumin Level 2.9 3.4-5.0 g/dL Performing Lab: see note - [facility] LB IRON AND TIBC Reviewed date:06/10/2024 02:10:18 PM Interpretation: Performing Lab: Notes/Report: [facility] , Iron 48.0 50.0-170.0 ug/dL Total Iron Binding Capacity 244.0 250.0-450.0 ug/dL Percent Iron Saturation 19.7 Performing Lab: see note - [facility] LB Vitamin B12 Reviewed date:04/29/2024 11:24:20 AM Interpretation: Performing Lab: Notes/Report: [facility] , Vitamin B12 1963 663-0410 pg/mL Performed at: - [facility] [address] [id number] Auto Service Representative: Deshaun Hunter PhD, Phone: [phone] Performing Lab: see note - [facility] LB XR FOOT LT 2V Reviewed date:03/24/2024 12:16:28 PM Interpretation: Performing Lab: Notes/Report: Source Facility: [place] [address] XRay Report Signed Patient: MARGIE MARTÍNEZ MR#: [id number] : 1940 Acct:[id number] Age/Sex: 83 / F ADM Date: 03/23/24 Loc: RAD Attending Dr: ANIKA LIGHT Ordering Physician: ANIKA LIGHT Date of Service: 03/23/24 Procedure(s): XR foot LT 2V Accession Number(s): [id number] cc: ANIKA LIGHT [place] [address] Patient Name: MARGIE MARTÍNEZ MRN: [id number] date: 1940 Sex: F Assigned Patient Location: RAD Current Patient Location: LAB Accession/Order Number: [id number] Exam Date: 03/23/2024 16:40 Report Date: 03/24/2024 11:31 At the request of: ANIKA LIGHT Procedure: XR foot LT 2V PROCEDURE: XR foot LT 2V, XR ankle LT 2V COMPARISON: None. HISTORY: Lt Foot pain M79.672 FINDINGS: BONES:No acute fracture or dislocation. Moderate degenerative changes with joint space narrowing and marginal osteophyte formation. Severe degenerative change first metatarsal-phalangeal joint with igqb-nf-stxj articulation and marginal osteophyte formation. Subchondral cystic changes SOFT TISSUES:Negative. No visible soft tissue swelling. EFFUSION:None visible. OTHER: Vascular calcifications. XR/XR foot LT 2V IMPRESSION: Severe degenerative change first metatarsal-phalangeal joint No acute abnormality Electronically authenticated by: YAQUELIN LESTER Date: 03/24/2024 11:31 Dictated By: Yaquelin Lester M.D. Signed By: 03/24/24 1134 DD/ 1131 TD/TT: Engineering Department Chair: [place] [address] XRay Report Signed Patient: TEENA MARTÍNEZ MR#: [id number] : 1940 Acct:[id number] Age/Sex: 83 / F ADM Date: 03/23/24 Loc: RAD Attending Dr: ANIKA LIGHT Ordering Physician: ANIKA LIGHT Date of Service: 03/23/24 Procedure(s): XR meka t LT 2V Accession Number(s): [id number] cc: ANIKA LIGHT [place] [address] Patient Name: MARGIE MARTÍNEZ MRN: [id number] date: 1940 Sex: F Assigned Patient Location: RAD Current Patient Location: LAB Accession/Order Numb er: [id number] Exam Date: 16:40 Report Date: 03/24/2024 11:31 At the request of: ANIKA LIGHT Procedure: XR foot L T 2V PROCEDURE: XR foot L T 2V, XR ankle LT 2V COMPARISON: None. HISTORY: Lt Foot fernandez n M79.672 FINDINGS: BONES:No acute fract ure or dislocation. Moderate degenerative changes with joint space narrowin g and marginal osteophyte formation. Severe degenerative change first metatarsal-phalangeal joint with fgor-hg-gwxr articulation and marginal osteophyte formation. Subchondral cystic changes SOFT TISSUES:Negativ e. No visible soft tissue swelling. EFFUSION:None visible. OTHER: Vascular calcifications. XR/XR foot LT 2V IMPRESSION: Severe degenerative change first metatarsal-phalangeal joint No acute abnormality Electronically authenticated by: YAQUELIN LESTER Date: 03/24/2024 11:31 Dictated By: Al Lester M.D. Signed By: 03/24/24 1134 DD/ 1131 TD/TT: Engineering Department Chair: XR ANKLE LT 2V Reviewed date:03/24/2024 12:16:28 PM Interpretation: Performing Lab: Notes/Report: Source Facility: [place] [address] XRay Report Signed Patient: MARGIE MARTÍNEZ MR#: [id number] : 1940 Acct:[id number] Age/Sex: 83 / F ADM Date: 03/23/24 Loc: RAD Attending Dr: ANIKA LIGHT Ordering Physician: ANIKA LIGHT Date of Service: 03/23/24 Procedure(s): XR ankle LT 2V Accession Number(s): [id number] cc: ANIKA LIGHT [place] [address] Patient Name: MARGIE MARTÍNEZ MRN: [id number] date: 1940 Sex: F Assigned Patient Location: [facility] Current Patient Location: LAB Accession/Order Number: [id number] Exam Date: 03/23/2024 16:40 Report Date: 03/24/2024 11:31 At the request of: ANIKA LIGHT Procedure: XR ankle LT 2V PROCEDURE: XR foot LT 2V, XR ankle LT 2V COMPARISON: None. HISTORY: Lt Foot pain M79.672 FINDINGS: BONES:No acute fracture or dislocation. Moderate degenerative changes with joint space narrowing and marginal osteophyte formation. Severe degenerative change first metatarsal-phalangeal joint with ojzp-gz-ozxv articulation and marginal osteophyte formation. Subchondral cystic changes SOFT TISSUES:Negative. No visible soft tissue swelling. EFFUSION:None visible. OTHER: Vascular calcifications. XR/XR ankle LT 2V IMPRESSION: Severe degenerative change first metatarsal-phalangeal joint No acute abnormality Electronically authenticated by: YAQUELIN LESTER Date: 03/24/2024 11:31 Dictated By: Yaquelin Lester M.D. Signed By: 03/24/24 1134 DD/ 1131 TD/TT: Engineering Department Chair: [place] [address] XRay Report Signed Patient: TEENA MARTÍNEZ MR#: [id number] : 1940 Acct:[id number] Age/Sex: 83 / F ADM Date: 03/23/24 Loc: RAD Attending Dr: ANIKA LIGHT Ordering Physician: ANIKA LIGHT Date of Service: 03/23/24 Procedure(s): XR ank le LT 2V Accession Number(s): [id number] cc: ANIKA LIGHT [place] [id number] Patient Name: MARGIE MARTÍNEZ MRN: [id number] date: 1940 Sex: F Assigned Patient Location: RAD Current Patient Location: LAB Accession/Order Numb er: [id number] Exam Date: 16:40 Report Date: 03/24/2024 11:31 At the request of: ANIKA LIGHT Procedure: XR ankle LT 2V PROCEDURE: XR foot L T 2V, XR ankle LT 2V COMPARISON: None. HISTORY: Lt Foot fernandez n M79.672 FINDINGS: BONES:No acute fract ure or dislocation. Moderate degenerative changes with joint space narrowin g and marginal osteophyte formation. Severe degenerative change first metatarsal-phalangeal joint with praf-hh-nrnj articulation and marginal osteophyte formation. Subchondral cystic changes SOFT TISSUES:Negativ e. No visible soft tissue swelling. EFFUSION:None visible. OTHER: Vascular calcifications. XR/XR ankle LT 2V IMPRESSION: Severe degenerative change first metatarsal-phalangeal joint No acute abnormality Electronically authenticated by: YAQUELIN LESTER Date: 03/24/2024 11:31 Dictated By: Al Lester M.D. Signed By: 03/24/24 1134 DD/ 1131 TD/TT: Engineering Department Chair: Prothrombin Time INR Reviewed date:03/22/2024 12:42:16 PM Interpretation: Performing Lab: Notes/Report: [facility] , Prothrombin Time 31.5 9.0-11.6 sec INR 3.35 DESIRED INR: 2.0-3.0 CONDITIONS NOT LISTED BELOW 2.5-3.5 FOR PROSTHETIC HEART VALVE REPLACEMENT 2.5-3.5 RECURRENT THROMBOSIS Performing Lab: see note [facility] Vitamin B12 Reviewed date:03/18/2024 08:15:25 AM Interpretation: Performing Lab: Notes/Report: [facility] , Vitamin B12 [phone] pg/mL Performed at: [facility] [address] [id number] Auto Service Representative: Deshaun Hunter PhD, Phone: [phone] Performing Lab: see note [facility] LB PTH, Intact Reviewed date:03/18/2024 12:27:40 PM Interpretation: Performing Lab: Notes/Report: [facility] , PTH, Intact 78 15-65 pg/mL Performed at: [facility] [id number] Auto Service Representative: Deshaun Hunter PhD, Phone: [phone] Performing Lab: see note [facility] LB RENAL FUNCTION PANEL Reviewed date:02/23/2024 12:47:58 PM Interpretation: Performing Lab: Notes/Report: [facility] , Sodium 144 136-145 mmol/L Potassium 4.0 3.5-5.1 mmol/L Chloride 107 98-107 mmol/L Carbon Dioxide 28.7 21.0-32.0 mmol/L Anion Gap 12.3 Glucose 97 74-106 mg/dL Blood Urea Nitrogen 50.0 7.0-18.0 mg/dL Creatinine 2.30 0.55-1.02 mg/dL Estimated GFR ( Mary 25 >=60 mL/min/1.73m 2 Estimated GFR (Non- Jeanine 20 >=60 mL/min/1.73m 2 BUN Creatinine Ratio 21.7 Calcium 8.9 8.5-10.1 mg/dL Phosphorus 3.6 2.6-4.7 mg/dL Albumin Level 3.0 3.4-5.0 g/dL Performing Lab: see note ML - [facility] CBC no Diff (Hemogram) Reviewed date:02/03/2024 11:42:16 AM Interpretation: Performing Lab: Notes/Report: [facility] , White Blood Count 6.3 4.0-11.0 10 3/uL Red Blood Count 3.40 4.20-5.40 10 6/uL Hemoglobin 10.0 12.0-16.0 g/dL Hematocrit 33.5 36.0-48.0 % Mean Corpuscular Volume 98.5 81.0-99.0 fL Mean Corpuscular Hemoglobin 29.4 26.7-34.0 pg Mean Corpuscular HGB Conc 29.9 29.9-35.2 g/dL Red Cell Distribution Width 14.4 11.0-15.0 % Platelet Count 227 150-450 10 3/uL Mean Platelet Volume 9.6 9.5-13.5 fL Performing Lab: see note ML - [facility] LB RENAL FUNCTION PANEL Reviewed date:02/03/2024 11:42:16 AM Interpretation: Performing Lab: Notes/Report: [facility] , Sodium 141 136-145 mmol/L Potassium 4.6 3.5-5.1 mmol/L Chloride 103 98-107 mmol/L Carbon Dioxide 32.9 21.0-32.0 mmol/L Anion Gap 9.7 Glucose 101 74-106 mg/dL Blood Urea Nitrogen 51.0 7.0-18.0 mg/dL Creatinine 2.48 0.55-1.02 mg/dL Estimated GFR ( Mary 23 >=60 Estimated GFR (Non- Jeanine 19 >=60 BUN Creatinine Ratio 20.6 Calcium 8.8 8.5-10.1 mg/dL Phosphorus 4.7 2.6-4.7 mg/dL Albumin Level 3.1 3.4-5.0 g/dL Performing Lab: see note ML - [facility] CBC no Diff (Hemogram) Reviewed date:11/27/2023 03:34:14 PM Interpretation: Performing Lab: Notes/Report: [facility] , White Blood Count 5.4 4.0-11.0 10 3/uL Red Blood Count 3.15 4.20-5.40 10 6/uL Hemoglobin 9.3 12.0-16.0 g/dL Hematocrit 31.1 36.0-48.0 % Mean Corpuscular Volume 98.7 81.0-99.0 fL Mean Corpuscular Hemoglobin 29.5 26.7-34.0 pg Mean Corpuscular HGB Conc 29.9 29.9-35.2 g/dL Red Cell Distribution Width 14.7 11.0-15.0 % Platelet Count 195 150-450 10 3/uL Mean Platelet Volume 9.9 9.5-13.5 fL Performing Lab: see note ML - [facility] CBC no Diff (Hemogram) Reviewed date:11/13/2023 02:28:15 PM Interpretation: Performing Lab: Notes/Report: [facility] , White Blood Count 5.0 4.0-11.0 10 3/uL Red Blood Count 3.08 4.20-5.40 10 6/uL Hemoglobin 8.9 12.0-16.0 g/dL Hematocrit 30.1 36.0-48.0 % Mean Corpuscular Volume 97.7 81.0-99.0 fL Mean Corpuscular Hemoglobin 28.9 26.7-34.0 pg Mean Corpuscular HGB Conc 29.6 29.9-35.2 g/dL Red Cell Distribution Width 14.6 11.0-15.0 % Platelet Count 228 150-450 10 3/uL Mean Platelet Volume 9.7 9.5-13.5 fL Performing Lab: see note - [facility] Reason For Referral No Information Medications Medication SIG (Take, Route, Frequency, Duration) Notes Start Date End Date Status Ferrous Sulfate 325 (65 Fe) MG 1 tablet Orally BID Unknown Carvedilol 12.5 MG 1 tablet with food O rally Twice a day for 90 days Unknown Warfarin Sodium 5 MG 1 tablet Orally Onc e a day Unknown FreeStyle Deepti 2 Sensor - USE DIRECT ED CHANGE EVERY 14 DAYS. for 84 Days Unknown traMADol HCl 25 MG one tablet Orally BI D PRN for 7 days 08/27/2024 Unknown tiZANidine HCl 4 MG 1 tablet at bedtime as needed Orally Once a day for 14 days 08/11/2024 Unknown Azithromycin 250 MG as directed Orally d aily for 5 days 03/24/2024 Active Advair Diskus 250-50 MCG/ACT 1 puff Inhalation Twice a day 10/27/2023 Unknown Loratadine 10 MG 1 tablet Orally Once a day- as needed for allergies Unknown hydrALAZINE HCl 50 MG 2 tablet Orally TI D for 90 days Unknown Levothyroxine Sodium 125 MCG TAKE 1 TABLET BY MOUTH ONCE DAILY IN THE MORNING for 90 days Unknown Albuterol-Ipratropium 10/27/2023 Unknown NIFEdipine ER Osmotic Release 60 MG 1 tablet Oral once daily for 90 days Unknown Albuterol Sulfate HFA 108 (90 Base) MCG/ACT INHALE 2 PUFFS BY MOUTH EVERY 6 HOURS NEEDED FOR WHEEZING FOR SHORTNESS OF BREATH Inhalation for 75 Days Unknown Losartan Potassium 100 MG TAKE 1 TABLET BY MOUTH ONCE DAILY Oral for 90 days Unknown B Complex Unknown Ozempic (0.25 or 0.5 MG/DOSE) 2 MG/3ML Inject 0.5mg Subcutaneous once weekly Unknown Amiodarone HCl 200 MG 1 tablet Orally BID Unknown Omeprazole 20 MG 1 capsule 30 minutes before morning meal Orally Once a day for 90 days Unknown Calcitriol 0.25 MCG 1 capsule Orally Thr ee times a Week Unknown Vitamin D (Cholecalciferol) 50 MCG (1999 UT) 1 capsule Orally Once a day for 90 days 10/15/2022 Unknown predniSONE 20 MG 2 tablet Orally Once a day for 5 days 10/14/2024 Active Bumetanide 1 MG 1 tablet Orally BID Unknown Rosuvastatin Calcium 5 MG 1 tablet Orall y Once a day Unknown Immunizations Vaccine Route Administration Date Status Comme nts Abrysvo Unknown 02/19/2023 Administered Comirnaty Pfizer Syringe Pre -Filled 30 mcg/0.3 mL Unknown 02/19/2023 Administered Flu, (90276) -historic- Spli t, Prsrvtve Free, for Intradermal use Unknown 03/19/2016 Administered Flu, (96669) -historic- Whole Unknown 02/06/2016 Admini stered Flu, Fluad (44517) 65 yrs + High Dose Seasonal (5350-2371) Unknown 01/21/2018 Administered Flu, Fluad (28664) 65 yrs + High Dose Seasonal (4785-1820) Unknown 04/03/2024 Administered Flu, Fluad (64966) 65 yrs+, single-dose syringe (2142-4615) Unknown 02/19/2023 Administered Flu, Fluzone High-Dose (2022 -2023) (43641) 65 yrs+ Unknown 02/09/2020 Administered Flu, Fluzone High-Dose (2022 -2023) (25635) 65 yrs+ Unknown 03/12/2021 Administered Flu, Unspecified Unknown 03/31/2014 Administered Flu, Unspecified Unknown 02/14/2015 Administered Flu, Unspecified Unknown 03/28/2015 Administered Pneumococcal (Pneumovax 23) Unknown 03/19/2015 Administ ered Pneumococcal (Prevnar 13) Unknown 03/31/2015 Administer ed Pneumococcal (Prevnar 13) Unknown 06/19/2017 Administer ed SARS-COV-2 (COVID 19 Zoya 0.5mL) Gilberto and Gilberto Unknown 08/04/2020 Administered SARS-COV-2 (COVID 19 Zoya 0.5mL) Gilberto and Gilberto Unknown 03/12/2021 Administered SARS-COV-2 (COVID 19) bivale nt 30 mcg/0.3 ml dose Unknown 03/11/2022 Administered Spikevax Moderna Syringe Pre -Filled 50 mcg/0.5 mL Unknown 04/03/2024 Administered Social History Tobacco Use: Social History Observation Description Date Details (start date - stop date) Never Smoker NA - NA Tobacco Use/Smoking Question Answer Notes Patient is a nonsmoker Alcohol Screen (Audit-C) Question Answer Notes Did you have a drink containing alcohol in the p ast year? No Points 0 Interpretation Negative AUDIT-C (Standard) Question Answer Notes Did you have a drink containing alcohol in the p ast year? No Points 0 Interpretation Negative Problems Problem Type SNOMED Code ICD Code Onset Dates Problem Status W/U Status Risk Notes Problem 10082362 Essential (primary) hypertension (I10) Active confirmed Problem 60886206 Hypothyroidism, unspecified (E03.9) Active confirmed Problem 177652886 Gastro-esophagea l reflux disease without esophagitis (K21.9) Active confirmed Problem 564564007 Chronic obstructive pulmonary disease, unspecified (J44.9) Active confirmed Problem 900769589 Anemia, unspecified (D64.9) Active confirmed Problem 533774314 Mixed hyperlipidemia (E78.2) Active confirmed Problem Chronic diastolic heart failure (191243719) Chronic diastolic (congestive) heart failure (I50.32) Active confirmed Problem 143613080 Chronic respiratory failure with hypoxia (J96.11) Active confirmed Problem 06674353 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 (N05.9) Active confirmed Problem Dependence on enabling machine or device (701699797) 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) Active confirmed Problem Atrial fibrillation (98107553) Atrial fibrillation (I48.91) Active confirmed Problem Dizziness (754341908) Dizziness (R42) Active confirmed Problem Morbid obesity (241098132) Morbid obesity due to excess calories (E66.01) Active confirmed Problem Osteoporosis (49627176) Osteoporosis (M81.0) Active confirmed Problem Weak (183293301) Weak (R53.1) Active confirmed Problem 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 confirmed Problem Chronic kidney disease stage 4 (848073922) Chronic kidney disease (CKD), stage 4 (severe) (N18.4) Active confirmed Problem Morbid obesity (502421952) Class 2 severe obesity due to excess calories with serious comorbidity in adult, unspecified BMI (E66.01) Active confirmed Vital Signs Heart Rate 62 /min 10/14/2024 oxygen 2L Blood pressure diastolic 65 mm Hg 10/14/2024 oxy gen 2L Oximetry 93 % 10/14/2024 oxygen 2L Height 60 in 08/11/2024 Blood pressure systolic 150 mm Hg 10/14/2024 oxyg en 2L Weight 197.2 lbs 08/11/2024 BMI 38.51 kg/m2 08/11/2024 Encounters Encounter Location Date Provider Diagnosis [facility] [address] [place] [address] 10/22/2024 Anika Light [facility] [address] [place] [address] 03/24/2024 Anika Light [facility] [address] [place] [address] 05/27/2024 Anika Light Cough R05.9 [facility] [address] [place] [address] 05/27/2024 Anika Light [facility] [address] [place] [address] 08/27/2024 Aniak Light Back pain M54.9 [facility] [address] [place] [address] 09/17/2024 Anika Light [facility] [address] [place] [address] 01/16/2024 Josiah Rai [facility] [address] [place] [address] 01/20/2024 Anika Light [facility] [address] [place] [address] 01/29/2024 Anika Light [facility] [address] [place] [address] 01/29/2024 Josiah Rai [facility] [address] [place] [address] 03/23/2024 Anika Light Foot pain, left M79.672 and Ankle pain, left M25.572 [facility] [address] [place] [address] 03/24/2024 Anika Light [facility] [address] [place] [address] 10/27/2023 ANIKA LIGHT [facility] [address] [place] [address] 10/27/2023 JESSICA RAI [facility] [address] [place] [address] 01/13/2024 Anika Light [facility] [address] [place] [address] 01/14/2024 Anika Light [facility] [address] [place] [address] 06/29/2024 Anika Light Encounter for Medica re annual wellness exam Z00.00 ; Chronic diastolic (congestive) heart failure I50.32 ; Class 2 severe obesity due to excess calories with serious comorbidity in adult, unspecified BMI E66.01 ; Morbid obesity due to excess calories E66.01 ; Chronic obstructive pulmonary disease, unspecified J44.9 ; Dependence on other enabling machines and devices Z99.89 ; Chronic kidney disease (CKD), stage 4 (severe) N18.4 and Controlled type 2 diabetes mellitus with chronic kidney disease E11.22 [facility] [address] [place] [address] 10/14/2024 Anika Light Bronchitis J40 [facility] [address] [place] [address] 10/31/2023 ANIKA LIGHT Essential (primary) hypertension [address] [place] [address] [place] [address] 03/24/2024 Anika Light Left foot pain M79.6 72 and Cough R05.[address] [address] 04/30/2024 Anika Light Weak R53.1 ; Essenti al (primary) hypertension I10 ; Chronic kidney disease (CKD), stage 4 (severe) N18.4 ; Chronic obstructive pulmonary disease, unspecified J44.9 ; Class 2 severe obesity due to excess calories with serious comorbidity in adult, unspecified BMI E66.01 ; Controlled type 2 diabetes mellitus with chronic kidney disease E11.22 and Chronic diastolic (congestive) heart failure I50.32 [facility] [address] [place] [address] 08/11/2024 Anika Light Back pain M54.9 Assessments Encounter Date Diagnosis (ICD Code) Assessment Notes Treatment Notes Treatment Clinical Notes Section Notes 10/31/2023 Essential (primary) hypertension (ICD-10 - I10) continue monitor sees cardiology 04/30/2024 Weak (ICD-10 - R53.1) discussed PT, encouraged wants to think about it deconditioning 04/30/2024 Essential (primary) hypertension (ICD-10 - I10) discuss meds with nephrology and cardiology decrease hydralazine dose 75 mg TID and record BP before next kidney dr apt increase fluids, add electrolytes 03/24/2024 Left foot pain (ICD-10 - M79.672) obtain xrays 03/24/2024 Cough (ICD-10 - R05.9) 06/29/2024 Encounter for Medicare annual wellness exam (ICD-10 - Z00.00) Patient presents to the office for a subsequent medicare wellness appointment. patient completed depression and safety screening with no concerns, medications reviewed, immunizations are up to date, SLUMS memory test was completed and the patient scored a 28/30. vision test was completed with a result of 20/20. a total of 25 mintues was spent with the patient 06/29/2024 Chronic diastolic (congestive) heart failure (ICD-10 - I50.32) Patient presents to the office for a subsequent medicare wellness appointment. patient completed depression and safety screening with no concerns, medications reviewed, immunizations are up to date, SLUMS memory test was completed and the patient scored a 28/30. vision test was completed with a result of 20/20. a total of 25 mintues was spent with the patient 08/11/2024 Back pain (ICD-10 - M54.9) continue with heat and TYlenol if not improving notify office 10/14/2024 Bronchitis (ICD-10 - J40) if not improving ,fu ER if needed over weekend monitor pulse ox 03/23/2024 Foot pain, left (ICD-10 - M79.672) 03/23/2024 Ankle pain, left (ICD-10 - M25.572) 05/27/2024 Cough (ICD-10 - R05.9) 08/27/2024 Back pain (ICD-10 - M54.9) 06/29/2024 Class 2 severe obesity due to excess calories with serious comorbidity in adult, unspecified BMI (ICD-10 - E66.01) Patient presents to the office for a subsequent medicare wellness appointment. patient completed depression and safety screening with no concerns, medications reviewed, immunizations are up to date, SLUMS memory test was completed and the patient scored a 28/30. vision test was completed with a result of 20/20. a total of 25 mintues was spent with the patient 04/30/2024 Chronic kidney disease (CKD), stage 4 (severe) (ICD-10 - N18.4) continue follow closely with nephrology 04/30/2024 Chronic obstructive pulmonary disease, unspecified (ICD-10 - J44.9) continue inhalers 06/29/2024 Morbid obesity due to excess calories (ICD-10 - E66.01) Patient presents to the office for a subsequent medicare wellness appointment. patient completed depression and safety screening with no concerns, medications reviewed, immunizations are up to date, SLUMS memory test was completed and the patient scored a 28/30. vision test was completed with a result of 20/20. a total of 25 mintues was spent with the patient 06/29/2024 Chronic obstructive pulmonary disease, unspecified (ICD-10 - J44.9) Patient present s to the office for a subsequent medicare wellness appointment. patient completed depression and safety screening with no concerns, medications reviewed, immunizations are up to date, SLUMS memory test was completed and the patient scored a 28/30. vision test was completed with a result of 20/20. a total of 25 mintues was spent with the patient 04/30/2024 Class 2 severe obesity due to excess calories with serious comorbidity in adult, unspecified BMI (ICD-10 - E66.01) work on healthy diet consider PT increase activity 04/30/2024 Controlled type 2 diabetes mellitus with chronic kidney disease (ICD-10 - E11.22) continue metformin bs controlled 06/29/2024 Dependence on other enabling machines and devices (ICD-10 - Z99.89) Patient presents to the office for a subsequent medicare wellness appointment. patient completed depression and safety screening with no concerns, medications reviewed, immunizations are up to date, SLUMS memory test was completed and the patient scored a 28/30. vision test was completed with a result of 20/20. a total of 25 mintues was spent with the patient 06/29/2024 Chronic kidney disease (CKD), stage 4 (severe) (ICD-10 - N18.4) Patient present s to the office for a subsequent medicare wellness appointment. patient completed depression and safety screening with no concerns, medications reviewed, immunizations are up to date, SLUMS memory test was completed and the patient scored a 28/30. vision test was completed with a result of 20/20. a total of 25 mintues was spent with the patient 04/30/2024 Chronic diastolic (congestive) heart failure (ICD-10 - I50.32) follow up cardiology 06/29/2024 Controlled type 2 diabetes mellitus with chronic kidney disease (ICD-10 - E11.22) Patient presents to the office for a subsequent medicare wellness appointment. patient completed depression and safety screening with no concerns, medications reviewed, immunizations are up to date, SLUMS memory test was completed and the patient scored a 28/30. vision test was completed with a result of 20/20. a total of 25 mintues was spent with the patient Plan Of Treatment Pending Test Test Name Order Date XR Ankle 2 Views Left 03/23/2024 XR DEXA BONE DENSITY 10/20/2023 XR FOOT 1-2 VIEWS LEFT 03/23/2024 Next Appt Details Provider Name:Anika elder, 10/29/2024 01:00:00 PM, [address] [place], [address], Insurance Providers Payer Name Payer Address Payer Phone Subscriber Number Group Number Insured Name Patient Relationship to Insured Coverage Start Date Coverage End Date [employer] [address] [place] [phone] [id number] [id number] Self - patient is the insured 4 Medications Administered Medication Instructions Date of Administration Dosage Notes Triamcinolone 40 mg/ml 08/11/2024 80 mg Medical (General) History Medical History History ICD Code Osteoporosis M81.0 Fracture of sternum, unspecified portion of sternum, initial encounter S22.20XA Wedge compression fracture of T11-T12 ve rtebra, sequela S22.080S COVID-19 U07.1 Ventricular premature beats I49.3 Lymphedema I89.0 COPD (chronic obstructive pulmonary dise ase) J44.9 Insomnia G47.00 Gastro-esophageal reflux disease without esophagitis K21.9 Hiatal hernia K44.9 Chronic kidney disease (CKD) N18.9 Asthma J45.909 Pulmonary nodule R91.1 Pulmonary hypertensive arterial disease I27.21 Vitamin D deficiency E55.9 Vitamin B12 deficiency E53.8 Osteoarthritis M19.90 KELECHI (obstructive sleep apnea) G47.33 Fatty liver K76.0 Diabetes mellitus E11.9 Hyperlipidemia E78.5 Venous insufficiency I87.2 Hypertension 401.9 Hypothyroidism E03.9 Aortic stenosis Q25.3 Ptosis of eyelid, right 374.30 Surgical History Surgery Date(Month/Year) bladder suspension repair Bilateral Knee Replacement HYSTERECTOMY TOTAL APPENDECTOMY CHOLECYSTECTOMY hernia repair Hospitalization History Reason Date(Month/Year) A-fib 05/10
[2024-10-22 11:25] LABS: Hematocrit 34.6 % (36.0-48.0); Hemoglobin 10.2 g/dL (12.0-16.0); Mean Corpuscular HGB Conc 29.5 g/dL (29.9-35.2); Mean Corpuscular Hemoglobin 29.7 pg (26.7-34.0); Mean Corpuscular Volume 100.9 fL (81.0-99.0); Platelet Count 197 10^3/uL (150-450); Red Blood Count 3.43 10^6/uL (4.20-5.40); Red Cell Distribution Width 14.2 % (11.0-15.0); White Blood Count 6.6 10^3/uL (4.0-11.0)
== END 2024-10-22 11:00 | disposition home or self-care (01) ==
LOC: LAB 11:00
PROVIDERS: PCP Nurse Practitioner Family; Visit Provider Internal Medicine Nephrology
DX: N18.9 Chronic kidney disease, unspecified (principal); D63.1 Anemia in chronic kidney disease
CPT/HCPCS: 36415; 85027

== ENCOUNTER 2024-10-28 12:37 | Outpatient (OUT) | payer MEDICARE, SELFPAY ==
--- NOTE | 2024-10-28 12:41 | MR_ITS ---
The [address] [address] Patient Name: JONATHAN HILL MRN: [id number] date: 1940 Sex: F Assigned Patient Location: MRI Current Patient Location: MRI Accession/Order Number: [id number] Exam Date: 10/28/2024 14:40 Report Date: 10/28/2024 14:45 At the request of: JUAN STREET MD Procedure: MR lumbar spine wo con EXAMINATION: MRI LUMBAR SPINE WITHOUT IV CONTRAST CLINICAL HISTORY: Chronic thoracic and lumbar pain with bilateral leg numbness. COMPARISON: None TECHNIQUE: Multiecho imaging was performed in the sagittal and axial planes without contrast administration. FINDINGS: There appears to be chronic compression deformities involving the T11 and T12 vertebral bodies without bone marrow edema. No significant retropulsion into the spinal canal is seen. The T11 vertebral body appears to demonstrate likely cement augmentation. Lumbar spine vertebral body heights appear maintained. Diffuse disc desiccation. Spinal cord terminus in normal position. No abnormal cord signal. No paraspinal mass. Visualized retroperitoneum demonstrates cystic changes involving the kidneys. At L1-L2: Diffuse broad-based disc bulge with ligamentum flavum hypertrophy and facet joint degenerative changes causing mild canal and bilateral neural foraminal stenosis. At L2-L3: Minimal disc material is present. Broad-based disc bulge is present eccentric towards the left with ligamentum flavum hypertrophy and facet joint degenerative changes causing mild canal and moderate left-sided neural foraminal stenosis. There is approximately 2 mm of retrolisthesis of L2 on L3 At L3-L4: Diffuse broad-based disc bulge is present with ligamentum flavum hypertrophy and facet joint degenerative changes causing mild canal and bilateral neural foraminal stenosis. At L4-L5: Diffuse broad-based disc bulge is present with ligamentum flavum hypertrophy and facet joint degenerative changes causing mild canal and moderate left-sided neural foraminal stenosis. At L5-S1: Diffuse broad-based disc bulge is present with facet joint degenerative changes. No significant canal stenosis. Moderate left-sided neural foraminal stenosis. MR/MR lumbar spine wo con IMPRESSION: Multilevel degenerative disease as described above mostly causing left-sided neural foraminal stenosis. No severe canal stenosis is seen. Compression deformities involving the T11 and T12 vertebral bodies, the T11 vertebral body likely demonstrates cement augmentation. Impression dictated by: Kj Urias Jr., D.O. 10/28/2024 2:45 PM Dictation Location: [place] [address] Electronically authenticated by: [id number] Y Date: 10/28/2024 14:45
--- NOTE | 2024-10-28 12:41 | MR_ITS ---
The [address] [address] Patient Name: JONATHAN HILL MRN: [id number] date: 1940 Sex: F Assigned Patient Location: MRI Current Patient Location: MRI Accession/Order Number: [id number] Exam Date: 10/28/2024 14:46 Report Date: 10/28/2024 14:52 At the request of: JUAN STREET MD Procedure: MR thoracic spine wo con MRI of the thoracic spine without IV contrast. Reason for exam: Lumbar/thoracic pain with bilateral leg weakness. COMPARISON: None. TECHNIQUE: Multisequence, multiplanar imaging of the thoracic spine was obtained without the use of IV contrast. FINDINGS: There appears to be compression deformities involving the T11 and T12 vertebral bodies without significant retropulsion into the spinal canal. There appears to BE presumed cement augmentation involving the T11 compression deformity. No bone marrow edema is seen involving the T12 compression deformity presumed chronic. No additional compression deformities are seen. Modic type endplate degenerative changes are noted. Diffuse disc desiccation. No severe canal stenosis. No abnormal cord signal is seen. Mild bilateral neural foraminal stenosis at T10/11. No paraspinal mass. MR/MR thoracic spine wo con IMPRESSION: Compression deformities involving the T11 and T12 vertebral bodies one of which appears to have cement augmentation involving T11 vertebral body. The T12 compression deformity demonstrates no bone edema suggesting a chronic process. No significant retropulsion into the spinal canal. No abnormal cord signal or severe canal stenosis. Mild bilateral neural foraminal stenosis at T10-11. Impression dictated by: Kj Urias Jr., D.O. 10/28/2024 2:52 PM Dictation Location: [place] [address] Electronically authenticated by: [id number] Y Date: 10/28/2024 14:52
== END 2024-10-28 12:38 | disposition home or self-care (01) ==
LOC: MRI 12:38
PROVIDERS: PCP Nurse Practitioner Family; Visit Provider Anesthesiology
DX: M48.062 Spinal stenosis, lumbar region with neurogenic claudication (principal); S22.070A Wedge compression fracture of T9-T10 vertebra, initial encounter for closed fracture; S22.080A Wedge compression fracture of T11-T12 vertebra, initial encounter for closed fracture
CPT/HCPCS: 72146; 72148

== ENCOUNTER 2024-11-07 10:50 | Inpatient (IN) | payer MEDICARE, SELFPAY ==
[2024-11-07] VITALS (51 sets, daily range): BP systolic 154–186; BP diastolic 68–101; PULSE 71–94; TEMP 36.6–37; O2SAT 83–99; BMI 37.1; BMI 37.3
--- OUTSIDE RECORDS SUMMARY | 2024-11-07 10:59 | XMS_ITS | CCD ---
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 [#/Vol] Leukocytes [#/volume] corrected for nucleated erythrocytes in Blood by Automated coun 4.0-11.0 [facility] MCH Auto (RBC) [Entitic mass ]on 09-02-2024 MCH (RBC) [Entitic mass] MCH [Entitic mass] by Automated count 26.7-34.0 [facility] MCHC Auto (RBC) [Mass/Vol]on 09-02-2024 MCHC (RBC) [Mass/Vol] MCHC [Mass/volume] by Automated count 29.9-35.2 [facility] MCV Auto (RBC) [Entitic vol] on 09-02-2024 MCV (RBC) [Entitic vol] MCV [Entitic volume] by Automated count 81.0-99.0 [facility] Platelet mean volume Auto (B ld) [Entitic vol]on 09-02-2024 Platelet mean volume (Bld) [Entitic vol] Platelet mean volume [Entitic volume] in Blood by Automated count 9.5-13.5 [facility] Platelets Auto (Bld) [#/Vol] on 09-02-2024 Platelets (Bld) [#/Vol] Platelets [#/volume] in Blood by Automated count 150-450 [facility] RBC Auto (Bld) [#/Vol]on RBC (Bld) [#/Vol] Erythrocytes [#/volu me] in Blood by Automated count Low 4.20-5.[address] [facility] [address] abdomen pelvis wo conon 0 09-01-2024 CT abdomen pelvis wo con [facility] [place] [address] [place] [address] CT Scan Report Signed Patient: Margie Martínez MR#: [id number] : 1940 Acct:[id number] Age/Sex: 84 / F ADM Date: 09/01/24 Loc: [facility] Room: Type: [facility] Attending Dr: Rin Ramirez MD Copies to: Rin Ramirez MD Ordering Provider: Rin Ramirez MD Date of Service: 09/01/24 CT/CT abdomen pelvis wo con: M54.9 - Dorsalgia, unspecified CT ABDOMEN AND PELVIS WITHOUT INTRAVENOUS CONTRAST: CLINICAL HISTORY: Back pain COMPARISON: None TECHNIQUE: Spiral images were obtained through the abdomen and pelvis without intravenous contrast. This CT exam was performed using [...] Uterus has been removed. No adnexal mass.] Peritoneum/Retroperitoneu m:No free air or free fluid or lymphadenopathy.[ [...] suggested. Impression dictated by: Kj Urias Jr., D.OAzar09/01/2024 10:59 AM Dictation Location: [place] [address] Transcribed By: [facility] 09/01/24 1059 Dictated By: jK Urias Jr, DO 09/01/24 1056 Signed By: 09/01/24 1059 Normal [facility] COMPLETE BLOOD COUNTon 08-25 Erythrocyte distribution width (RBC) [Ratio] 16.8 % High 11.5-15.0 [facility] Comment on above: Performed By: #### Thuy MAGDALENO [facility], , , THYR #### [facility] ([id number]) [address], [address] [place] [address] Hematocrit (Bld) [Volume fraction] 32.8 % Low 35-47 [facility] Comment on above: Performed By: #### Thuy MAGDALENO [facility], , , THYR #### [facility] ([id number]) [address], [address] [place] [address] Hemoglobin (Bld) [Mass/Vol] 10.6 g/dL Low 11.7-15.5 [facility] Comment on above: Performed By: #### Thuy MAGDALENO [facility], , , THYR #### [facility] ([id number]) [address], [address] [place] [address] MCH (RBC) [Entitic mass] 30.4 pg Normal 27-34 [facility] Comment on above: Performed By: #### Thuy MAGDALENO [facility], , , THYR #### [facility] ([id number]) [address], [address] [place] [address] MCHC (RBC) [Mass/Vol] 32.3 g/dL Normal 32-36 [facility] Comment on above: Performed By: #### Thuy BC, [facility], 33434-4, , THYR #### [facility] ([id number]) [address], [address] [place] [address] MCV (RBC) [Entitic vol] 94 fL Normal 80-100 [facility] Comment on above: Performed By: #### Thuy BC, CMP, , , THYR #### [facility] ([id number]) [address], [address] [place] [address] Platelet mean volume (Bld) [Entitic vol] 7.9 fL Normal 7-12 [facility] Comment on above: Performed By: #### Thuy MAGDALENO, [facility], , , THYR #### [facility] ([id number]) [address], [address] [place] [address] Platelets (Bld) [#/Vol] 222 10*3/uL Normal 150-450 [facility] Comment on above: Performed By: #### Thuy BC, CMP, , , THYR #### [facility] ([id number]) [address], [address] [place] [address] RBC COUNT 3.48 X10E12/L Low 3.80-5.20 [facility] Comment on above: Performed By: #### Thuy BC, CMP, , , THYR #### [facility] ([id number]) [address], [address] [place] [address] WBC (Bld) [#/Vol] 5.7 10*3/uL Normal 4.0-11.0 [facility] Comment on above: Performed By: #### Thuy BC, CMP, , , THYR #### [facility] ([id number]) [address], [address] [place] [address] COMPREHENSIVE METABOLIC PANE N[place]un 08-25-2024 Albumin [Mass/Vol] 3.7 g/dL Normal 3.2-5.3 [facility] Comment on above: Performed By: #### C BC, CMP, 00160-2, , THYR #### [facility] ([id number]) [address] [place] [address] ALP [Catalytic activity/Vol] 97 U/L Normal 39-130 [facility] Comment on above: Performed By: #### C BC, CMP, 36038-4, , THYR #### [facility] ([id number]) [address], [address] [place] [address] ALT [Catalytic activity/Vol] 9 U/L Normal 0-31 [facility] Comment on above: Performed By: #### Thuy BC, CMP, 65395-5, , THYR #### [facility] ([id number]) [address], [address] [place] [address] Anion gap [Moles/Vol] 12 mmol/L Normal 5-15 [facility] Comment on above: Performed By: #### Thuy BC, CMP, 00928-4, , THYR #### [facility] ([id number]) [address], [address] [place] [address] AST [Catalytic activity/Vol] 10 U/L Normal 0-41 [facility] Comment on above: Performed By: #### C BC, CMP, 36477-7, , THYR #### [facility] ([id number]) [address], [address] [place] [address] Bilirubin [Mass/Vol] 0.3 mg/dL Normal 0.3-1.2 [facility] Comment on above: Performed By: #### C SHARLA, [facility], 98191-3, , THYR #### [facility] ([id number]) [address], [address] [place] [address] Calcium [Mass/Vol] 9.1 mg/dL Normal 8.5-10.5 [facility] Comment on above: Performed By: #### Thuy MAGDALENO, [facility], 66453-7, , THYR #### [facility] ([id number]) [address], [address] [place] [address] Chloride [Moles/Vol] 104 mmol/L Normal 98-109 [facility] Comment on above: Performed By: #### Thuy MAGDALENO, [facility], 39964-5, , THYR #### [facility] ([id number]) [address], [address] [place] [address] CO2 [Moles/Vol] 26 mmol/L Normal 22-32 [facility] Comment on above: Performed By: #### Thuy MAGDALENO, [facility], 56804-9, , THYR #### [facility] ([id number]) [address], [address] [place] [address] Creatinine [Mass/Vol] 2.93 mg/dL High 0.40-1.00 [facility] Comment on above: Result Comment: METH OD TRACEABLE TO IDMS STANDARD Performed By: #### Thuy MAGDALENO, [facility], 40332-8, , THYR #### [facility] ([id number]) [address], [address] [place] [address] GFR/1.73 sq M.predicted among non-blacks MDRD (S/P/Bld) [Vol rate/Area] 15 mL/min/{1.73_m2} Low >59 [facility] Comment on above: Result Comment: Reported eGFR is based on the CKD-EPI 2020 equation that does not use a race coefficient. Performed By: #### C SHARLA, [facility], 55313-6, , THYR #### [facility] ([id number]) [address], [address] [place] [address] Glucose [Mass/Vol] 83 mg/dL Normal 65-99 [facility] Comment on above: Performed By: #### Thuy MAGDALENO, [facility], 24438-8, , THYR #### [facility] ([id number]) [address], [address] [place] [address] Potassium [Moles/Vol] 4.4 mmol/L Normal 3.5-5.0 [facility] Comment on above: Performed By: #### Thuy MAGDALENO, [facility], 73754-5, , THYR #### [facility] ([id number]) [address], [address] [place] [address] Protein [Mass/Vol] 6.5 g/dL Normal 6.0-8.0 [facility] Comment on above: Performed By: #### Thuy MAGDALENO, [facility], , , THYR #### [facility] ([id number]) [address], [address] [place] [address] Sodium [Moles/Vol] 142 mmol/L Normal 134-146 [facility] Comment on above: Performed By: #### Thuy MAGDALENO, [facility], , , THYR #### [facility] ([id number]) [address], [address] [place] [address] Urea nitrogen [Mass/Vol] 48 mg/dL High 5-27 [facility] Comment on above: Performed By: #### Thuy MAGDALENO, [facility], 01815-3, , THYR #### [facility] ([id number]) [address], [address] [place] [address] Lipid 1996 panelon 5 Cholesterol [Mass/Vol] 100 mg/dL Low 150-200 [facility] Comment on above: Performed By: ###Sangeeta MAGDALENO, [facility], , , THYR #### [facility] ([id number]) [address], [address] [place] [address] Cholesterol in HDL [Mass/Vol] 37 mg/dL Low >39 [facility] Comment on above: Result Comment: HDL <40 mg/dL - High Risk HDL > or = 40mg/dL- Desirable HDL >60 mg/dL - Negative Risk Performed By: ###Sangeeta MAGDALENO, [facility], , , THYR #### [facility] ([id number]) [address], [address] [place] [address] Cholesterol in LDL [Mass/Vol] 38 mg/dL Normal <130 [facility] Comment on above: Result Comment: LDL <100 mg/dL - Desirable LDL >160 mg/dL - High Risk Performed By: ###Sangeeta MAGDALENO, ELIDA, , , THYR #### [facility] ([id number]) [address], [address] [place] [address] Cholesterol in VLDL [Mass/Vol] 25 mg/dL Normal 0-30 [facility] Comment on above: Performed By: ###Sangeeta MAGDALENO, CMP, , , THYR #### [facility] ([id number]) [address], [address] [place] [address] CHOLESTEROL:HDL 2.7 Normal 1.0-5.0 [facility] Comment on above: Performed By: ###Sangeeta Daley SHARLA, [facility], 85578-0, , THYR #### [facility] ([id number]) [address], [address] [place] [address] Triglyceride [Mass/Vol] 127 mg/dL Normal 27-150 [facility] Comment on above: Performed By: #### Thuy MAGDALENO, [facility], 71424-0, , THYR #### [facility] ([id number]) [address], [address] [place] [address] MAGNESIUMon 08-25-2024 Magnesium [Mass/Vol] 2.4 mg/dL Normal 1.8-2.6 [facility] Comment on above: Performed By: #### Thuy MAGDALENO, [facility], 66105-0, , THYR #### [facility] ([id number]) [address], [address] [place] [address] THYROID PROFILEon 08-25-2024 Free T4 [Mass/Vol] 1.29 ng/dL Normal 0.61-1.60 [facility] Comment on above: Performed By: #### Thuy MAGDALENO, [facility], 45986-4, , THYR #### [facility] ([id number]) [address], [address] [place] [address] TSH 3.65 uIU/mL Normal 0.49-4.67 [facility] Comment on above: Performed By: #### Thuy MAGDALENO, [facility], 49748-1, , THYR #### [facility] ([id number]) [address], [address] [place] [address] POCT Protime / INRon 08-24-2 025 INR Coag (PPP) [Relative time] 3.7 {INR} Abnormal 0.8 - 1.2 [facility] Interpretation and review of laboratory results Abnormal [facility] POCT Protime / INRon 08-05-2 025 INR Coag (PPP) [Relative time] 3.5 {INR} Abnormal 0.8 - 1.2 [facility] Interpretation and review of laboratory results Abnormal [facility] Erythrocyte distribution wid th Auto (RBC) [Ratio]on 08-04-2024 Erythrocyte distribution width (RBC) [Ratio] Erythrocyte distribution width [Ratio] by Automated count High 11.0-15.0 [facility] Estimated glomerular filtrat ion rate (GFR) non- Americanon 08-04-2024 GFR/1.73 sq M.predicted among non-blacks MDRD (S/P/Bld) [Vol rate/Area] Estimated glomerular filtration rate (GFR) non- Low >=60 mL/min/1.7 3m 2 [facility] Hematocrit Auto (Bld) [Volum e fraction]on 08-04-2024 Hematocrit (Bld) [Volume fraction] Hematocrit [Volume Fraction] of Blood by Automated count Low 36.0-48.0 [facility] Hemoglobin [Mass/volume] in Bloodon 08-04-2024 Hemoglobin (Bld) [Mass/Vol] Hemoglobin [Mass/volume] in Blood Low 12.0-16.0 [facility] Laboratory - Chemistry and C hemistry - challengeon 08-04-2024 Albumin [Mass/Vol] 3.2 g/dL Low 3.4-5.0 [facility] Calcium [Mass/Vol] 8.9 mg/dL 8.5-10.1 [facility] Chloride [Moles/Vol] 105 mmol/L 98-107 [facility] CO2 [Moles/Vol] 29.7 mmol/L 21.0-32.0 [facility] Creatinine [Mass/Vol] 2.73 mg/dL High 0.55-1.02 [facility] GFR/1.73 sq M.predicted MDRD (S/P/Bld) [Vol rate/Area] 20 mL/min/{1.73_m2} Low >=60 mL/min/1.7 3m 2 [facility] Glucose [Mass/Vol] 122 mg/dL High 74-106 [facility] Potassium [Moles/Vol] 4.6 mmol/L 3.5-5.1 [facility] Sodium [Moles/Vol] 141 mmol/L 136-145 [facility] Urea nitrogen [Mass/Vol] 43.0 mg/dL High 7.0-18.0 [facility] Urea nitrogen/Creatinine [Mass ratio] 15.8 mg/mg [facility] Leukocytes [#/volume] correc katy for nucleated erythrocytes in Blood by Automated counon 08-04-2024 WBC corrected for nucl RBC Auto (Bld) [#/Vol] Leukocytes [#/volume] corrected for nucleated erythrocytes in Blood by Automated coun 4.0-11.0 [facility] MCH Auto (RBC) [Entitic mass ]on 08-04-2024 MCH (RBC) [Entitic mass] MCH [Entitic mass] by Automated count 26.7-34.0 [facility] MCHC Auto (RBC) [Mass/Vol]on 08-04-2024 MCHC (RBC) [Mass/Vol] MCHC [Mass/volume] by Automated count 29.9-35.2 [facility] MCV Auto (RBC) [Entitic vol] on 08-04-2024 MCV (RBC) [Entitic vol] MCV [Entitic volume] by Automated count 81.0-99.0 [facility] No Panel Informationon 08-04 Phosphorus Level 3.6 mg/dL 2.6-4.7 [facility] Platelet mean volume Auto (B ld) [Entitic vol]on 08-04-2024 Platelet mean volume (Bld) [Entitic vol] Platelet mean volume [Entitic volume] in Blood by Automated count 9.5-13.5 [facility] Platelets Auto (Bld) [#/Vol] on 08-04-2024 Platelets (Bld) [#/Vol] Platelets [#/volume] in Blood by Automated count 150-450 [facility] RBC Auto (Bld) [#/Vol]on RBC (Bld) [#/Vol] Erythrocytes [#/volu me] in Blood by Automated count Low 4.20-5.40 [facility] Serum or plasma anion gap de terminationon 08-04-2024 Anion gap [Moles/Vol] Serum or plasma an ion gap determination [facility] Erythrocyte distribution wid th Auto (RBC) [Ratio]on 07-20-2024 Erythrocyte distribution width (RBC) [Ratio] Erythrocyte distribution width [Ratio] by Automated count High 11.0-15.0 [facility] Estimated glomerular filtrat ion rate (GFR) non- Americanon 07-20-2024 GFR/1.73 sq M.predicted among non-blacks MDRD (S/P/Bld) [Vol rate/Area] Estimated glomerular filtration rate (GFR) non- Low >=60 mL/min/1.7 3m 2 [facility] Hematocrit Auto (Bld) [Volum e fraction]on 07-20-2024 Hematocrit (Bld) [Volume fraction] Hematocrit [Volume Fraction] of Blood by Automated count Low 36.0-48.0 [facility] Hemoglobin [Mass/volume] in Bloodon 07-20-2024 Hemoglobin (Bld) [Mass/Vol] Hemoglobin [Mass/volume] in Blood Low 12.0-16.0 [facility] Iron binding capacity [Mass/ volume] in Serum or Plasmaon 07-20-2024 Iron binding capacity [Mass/Vol] Iron binding capacity [Mass/volume] in Serum or Plasma Low 250.0-450. 0 [facility] Iron saturation [Mass Fracti on] in Serum or Plasmaon 07-20-2024 Iron saturation [Mass fraction] Iron saturation [Mass Fraction] in Serum or Plasma [facility] Laboratory - Chemistry and C hemistry - challengeon 07-20-2024 Albumin [Mass/Vol] 3.1 g/dL Low 3.4-5.0 [facility] Calcium [Mass/Vol] 8.5 mg/dL 8.5-10.1 [facility] Chloride [Moles/Vol] 107 mmol/L 98-107 [facility] CO2 [Moles/Vol] 33.3 mmol/L High 21.0-32.0 [facility] Creatinine [Mass/Vol] 2.88 mg/dL High 0.55-1.02 [facility] Ferritin [Mass/Vol] 688.0 ng/mL High 8.0-252.0 [facility] GFR/1.73 sq M.predicted MDRD (S/P/Bld) [Vol rate/Area] 19 mL/min/{1.73_m2} Low >=60 mL/min/1.7 3m 2 [facility] Glucose [Mass/Vol] 124 mg/dL High 74-106 [facility] Iron [Mass/Vol] 75.0 ug/dL 50.0-170.0 [facility] Potassium [Moles/Vol] 4.4 mmol/L 3.5-5.1 [facility] Sodium [Moles/Vol] 144 mmol/L 136-145 [facility] Urea nitrogen [Mass/Vol] 33.0 mg/dL High 7.0-18.0 [facility] Urea nitrogen/Creatinine [Mass ratio] 11.5 mg/mg [facility] Leukocytes [#/volume] correc katy for nucleated erythrocytes in Blood by Automated counon 07-20-2024 WBC corrected for nucl RBC Auto (Bld) [#/Vol] Leukocytes [#/volume] corrected for nucleated erythrocytes in Blood by Automated coun 4.0-11.0 [facility] MCH Auto (RBC) [Entitic mass ]on 07-20-2024 MCH (RBC) [Entitic mass] MCH [Entitic mass] by Automated count 26.7-34.0 [facility] MCHC Auto (RBC) [Mass/Vol]on 07-20-2024 MCHC (RBC) [Mass/Vol] MCHC [Mass/volume] by Automated count Low 29.9-35.2 [facility] MCV Auto (RBC) [Entitic vol] on 07-20-2024 MCV (RBC) [Entitic vol] MCV [Entitic volume] by Automated count High 81.0-99.0 [facility] No Panel Informationon 07-20 Parathyroid Hormone (Intact) 101 pg/mL Abnormal 15-65 [facility] Comment on above: Performed at: [address] [id number] Director: Deshaun Hunter PhD, Phone: [phone] Phosphorus Level 4.0 mg/dL 2.6-4.7 [facility] Platelet mean volume Auto (B ld) [Entitic vol]on 07-20-2024 Platelet mean volume (Bld) [Entitic vol] Platelet mean volume [Entitic volume] in Blood by Automated count 9.5-13.5 [facility] Platelets Auto (Bld) [#/Vol] on 07-20-2024 Platelets (Bld) [#/Vol] Platelets [#/volume] in Blood by Automated count 150-450 [facility] RBC Auto (Bld) [#/Vol]on RBC (Bld) [#/Vol] Erythrocytes [#/volu me] in Blood by Automated count Low 4.20-5.40 [facility] Serum or plasma anion gap de terminationon 07-20-2024 Anion gap [Moles/Vol] Serum or plasma an ion gap determination [facility] POCT Protime / INRon 025 INR Coag (PPP) [Relative time] 3.1 {INR} Abnormal 0.8 - 1.2 [facility] Interpretation and review of laboratory results Abnormal [facility] POCT Protime / INRon 025 INR Coag (PPP) [Relative time] 2.6 {INR} Abnormal 0.8 - 1.2 [facility] Interpretation and review of laboratory results Abnormal [facility] HbA1c HPLC (Bld) [Mass fract ion]on 06-14-2024 HbA1c (Bld) [Mass fraction] Hemoglobin A1c/Hemoglobin.total in Blood by HPLC [facility] No Panel Informationon 06-14 Bedside Glucose 114 [facility] Erythrocyte distribution wid th Auto (RBC) [Ratio]on 06-10-2024 Erythrocyte distribution width (RBC) [Ratio] Erythrocyte distribution width [Ratio] by Automated count 11.0-15.0 [facility] Estimated glomerular filtrat ion rate (GFR) non- Americanon 06-10-2024 GFR/1.73 sq M.predicted among non-blacks MDRD (S/P/Bld) [Vol rate/Area] Estimated glomerular filtration rate (GFR) non- Low >=60 mL/min/1.7 3m 2 [facility] Hematocrit Auto (Bld) [Volum e fraction]on 06-10-2024 Hematocrit (Bld) [Volume fraction] Hematocrit [Volume Fraction] of Blood by Automated count Low 36.0-48.0 [facility] Hemoglobin [Mass/volume] in Bloodon 06-10-2024 Hemoglobin (Bld) [Mass/Vol] Hemoglobin [Mass/volume] in Blood Low 12.0-16.0 [facility] Iron binding capacity [Mass/ volume] in Serum or Plasmaon 06-10-2024 Iron binding capacity [Mass/Vol] Iron binding capacity [Mass/volume] in Serum or Plasma Low 250.0-450. 0 [facility] Iron saturation [Mass Fracti on] in Serum or Plasmaon 06-10-2024 Iron saturation [Mass fraction] Iron saturation [Mass Fraction] in Serum or Plasma [facility] Laboratory - Chemistry and C hemistry - challengeon 06-10-2024 Albumin [Mass/Vol] 2.9 g/dL [facility] Calcium [Mass/Vol] 8.8 mg/dL [facility] Chloride [Moles/Vol] 106 mmol/L [facility] CO2 [Moles/Vol] 35.1 mmol/L [facility] Creatinine [Mass/Vol] 2.18 mg/dL [facility] Glucose [Mass/Vol] 111 mg/dL [facility] Potassium [Moles/Vol] 3.7 mmol/L [facility] Sodium [Moles/Vol] 146 mmol/L [facility] Urea nitrogen [Mass/Vol] 38.0 mg/dL [facility] Albumin [Mass/Vol] 2.9 g/dL Low 3.4-5.0 [facility] Calcium [Mass/Vol] 8.8 mg/dL 8.5-10.1 [facility] Chloride [Moles/Vol] 106 mmol/L 98-107 [facility] CO2 [Moles/Vol] 35.1 mmol/L High 21.0-32.0 [facility] Creatinine [Mass/Vol] 2.18 mg/dL High 0.55-1.02 [facility] Ferritin [Mass/Vol] 49.0 ng/mL 8.0-252.0 [facility] GFR/1.73 sq M.predicted MDRD (S/P/Bld) [Vol rate/Area] 26 mL/min/{1.73_m2} Low >=60 mL/min/1.7 3m 2 [facility] Glucose [Mass/Vol] 111 mg/dL High 74-106 [facility] Iron [Mass/Vol] 48.0 ug/dL Low 50.0-170.0 [facility] Potassium [Moles/Vol] 3.7 mmol/L 3.5-5.1 [facility] Sodium [Moles/Vol] 146 mmol/L High 136-145 [facility] Urea nitrogen [Mass/Vol] 38.0 mg/dL High 7.0-18.0 [facility] Urea nitrogen/Creatinine [Mass ratio] 17.4 mg/mg [facility] Leukocytes [#/volume] correc katy for nucleated erythrocytes in Blood by Automated counon 06-10-2024 WBC corrected for nucl RBC Auto (Bld) [#/Vol] Leukocytes [#/volume] corrected for nucleated erythrocytes in Blood by Automated coun 4.0-11.0 [facility] MCH Auto (RBC) [Entitic mass ]on 06-10-2024 MCH (RBC) [Entitic mass] MCH [Entitic mass] by Automated count 26.7-34.0 [facility] MCHC Auto (RBC) [Mass/Vol]on 06-10-2024 MCHC (RBC) [Mass/Vol] MCHC [Mass/volume] by Automated count Low 29.9-35.2 [facility] MCV Auto (RBC) [Entitic vol] on 06-10-2024 MCV (RBC) [Entitic vol] MCV [Entitic volume] by Automated count 81.0-99.0 [facility] No Panel Informationon 06-10 Estimated GFR (Non- 22 mL/min [facility] Phosphorus Level 3.6 mg/dL [facility] Phosphorus Level 3.6 mg/dL 2.6-4.7 [facility] Platelet mean volume Auto (B ld) [Entitic vol]on 06-10-2024 Platelet mean volume (Bld) [Entitic vol] Platelet mean volume [Entitic volume] in Blood by Automated count 9.5-13.5 [facility] Platelets Auto (Bld) [#/Vol] on 06-10-2024 Platelets (Bld) [#/Vol] Platelets [#/volume] in Blood by Automated count 150-450 [facility] RBC Auto (Bld) [#/Vol]on RBC (Bld) [#/Vol] Erythrocytes [#/volu me] in Blood by Automated count Low 4.20-5.40 [facility] Serum or plasma anion gap de terminationon 06-10-2024 Anion gap [Moles/Vol] Serum or plasma an ion gap determination [facility] Erythrocyte distribution wid th Auto (RBC) [Ratio]on 05-25-2024 Erythrocyte distribution width (RBC) [Ratio] Erythrocyte distribution width [Ratio] by Automated count 11.0-15.0 [facility] Hematocrit Auto (Bld) [Volum e fraction]on 05-25-2024 Hematocrit (Bld) [Volume fraction] Hematocrit [Volume Fraction] of Blood by Automated count Low 36.0-48.0 [facility] Hemoglobin [Mass/volume] in Bloodon 05-25-2024 Hemoglobin (Bld) [Mass/Vol] Hemoglobin [Mass/volume] in Blood Low 12.0-16.0 [facility] Leukocytes [#/volume] correc katy for nucleated erythrocytes in Blood by Automated counon 05-25-2024 WBC corrected for nucl RBC Auto (Bld) [#/Vol] Leukocytes [#/volume] corrected for nucleated erythrocytes in Blood by Automated coun 4.0-11.0 [facility] MCH Auto (RBC) [Entitic mass ]on 05-25-2024 MCH (RBC) [Entitic mass] MCH [Entitic mass] by Automated count 26.7-34.0 [facility] MCHC Auto (RBC) [Mass/Vol]on 05-25-2024 MCHC (RBC) [Mass/Vol] MCHC [Mass/volume] by Automated count Low 29.9-35.2 [facility] MCV Auto (RBC) [Entitic vol] on 05-25-2024 MCV (RBC) [Entitic vol] MCV [Entitic volume] by Automated count High 81.0-99.0 [facility] Platelet mean volume Auto (B ld) [Entitic vol]on 05-25-2024 Platelet mean volume (Bld) [Entitic vol] Platelet mean volume [Entitic volume] in Blood by Automated count 9.5-13.5 [facility] Platelets Auto (Bld) [#/Vol] on 05-25-2024 Platelets (Bld) [#/Vol] Platelets [#/volume] in Blood by Automated count 150-450 [facility] RBC Auto (Bld) [#/Vol]on RBC (Bld) [#/Vol] Erythrocytes [#/volu me] in Blood by Automated count Low 4.20-5.40 [facility] POCT Protime / INRon 024 INR Coag (PPP) [Relative time] 2.3 {INR} Abnormal 0.8 - 1.2 [facility] Interpretation and review of laboratory results Abnormal [facility] Erythrocyte distribution wid th Auto (RBC) [Ratio]on 04-28-2024 Erythrocyte distribution width (RBC) [Ratio] Erythrocyte distribution width [Ratio] by Automated count 11.0-15.0 [facility] Hematocrit Auto (Bld) [Volum e fraction]on 04-28-2024 Hematocrit (Bld) [Volume fraction] Hematocrit [Volume Fraction] of Blood by Automated count Low 36.0-48.0 [facility] Hemoglobin [Mass/volume] in Bloodon 04-28-2024 Hemoglobin (Bld) [Mass/Vol] Hemoglobin [Mass/volume] in Blood Low 12.0-16.0 [facility] Iron binding capacity [Mass/ volume] in Serum or Plasmaon 04-28-2024 Iron binding capacity [Mass/Vol] Iron binding capacity [Mass/volume] in Serum or Plasma 250.0-450. 0 [facility] Iron saturation [Mass Fracti on] in Serum or Plasmaon 04-28-2024 Iron saturation [Mass fraction] Iron saturation [Mass Fraction] in Serum or Plasma [facility] Laboratory - Chemistry and C hemistry - challengeon 04-28-2024 Cobalamin (Vitamin B12) [Mass/Vol] 1140 pg/mL [id number] [facility] Comment on above: Performed at: - [address] [id number] Director: Deshaun Hunter PhD, Phone: [phone] Ferritin [Mass/Vol] 58.0 ng/mL 8.0-252.0 [facility] Iron [Mass/Vol] 49.0 ug/dL Low 50.0-170.0 [facility] Leukocytes [#/volume] correc katy for nucleated erythrocytes in Blood by Automated counon 04-28-2024 WBC corrected for nucl RBC Auto (Bld) [#/Vol] Leukocytes [#/volume] corrected for nucleated erythrocytes in Blood by Automated coun 4.0-11.0 [facility] MCH Auto (RBC) [Entitic mass ]on 04-28-2024 MCH (RBC) [Entitic mass] MCH [Entitic mass] by Automated count 26.7-34.0 [facility] MCHC Auto (RBC) [Mass/Vol]on 04-28-2024 MCHC (RBC) [Mass/Vol] MCHC [Mass/volume] by Automated count Low 29.9-35.2 [facility] MCV Auto (RBC) [Entitic vol] on 04-28-2024 MCV (RBC) [Entitic vol] MCV [Entitic volume] by Automated count High 81.0-99.0 [facility] No Panel Informationon 04-28 Folate 13.00 ng/mL 8.60-58.90 [facility] Platelet mean volume Auto (B ld) [Entitic vol]on 04-28-2024 Platelet mean volume (Bld) [Entitic vol] Platelet mean volume [Entitic volume] in Blood by Automated count 9.5-13.5 [facility] Platelets Auto (Bld) [#/Vol] on 04-28-2024 Platelets (Bld) [#/Vol] Platelets [#/volume] in Blood by Automated count 150-450 [facility] RBC Auto (Bld) [#/Vol]on RBC (Bld) [#/Vol] Erythrocytes [#/volu me] in Blood by Automated count Low 4.20-5.40 [facility] Erythrocyte distribution wid th Auto (RBC) [Ratio]on 04-13-2024 Erythrocyte distribution width (RBC) [Ratio] Erythrocyte distribution width [Ratio] by Automated count 11.0-15.0 [facility] Estimated glomerular filtrat ion rate (GFR) non- Americanon 04-13-2024 GFR/1.73 sq M.predicted among non-blacks MDRD (S/P/Bld) [Vol rate/Area] Estimated glomerular filtration rate (GFR) non- Low >=60 mL/min/1.7 3m 2 [facility] Hematocrit Auto (Bld) [Volum e fraction]on 04-13-2024 Hematocrit (Bld) [Volume fraction] Hematocrit [Volume Fraction] of Blood by Automated count Low 36.0-48.0 [facility] Hemoglobin [Mass/volume] in Bloodon 04-13-2024 Hemoglobin (Bld) [Mass/Vol] Hemoglobin [Mass/volume] in Blood Low 12.0-16.0 [facility] Laboratory - Chemistry and C hemistry - challengeon 04-13-2024 Albumin [Mass/Vol] 2.9 g/dL Low 3.4-5.0 [facility] Calcium [Mass/Vol] 9.5 mg/dL 8.5-10.1 [facility] Chloride [Moles/Vol] 106 mmol/L 98-107 [facility] CO2 [Moles/Vol] 32.0 mmol/L 21.0-32.0 [facility] Creatinine [Mass/Vol] 2.22 mg/dL High 0.55-1.02 [facility] GFR/1.73 sq M.predicted MDRD (S/P/Bld) [Vol rate/Area] 26 mL/min/{1.73_m2} Low >=60 mL/min/1.7 3m 2 [facility] Glucose [Mass/Vol] 135 mg/dL High 74-106 [facility] Potassium [Moles/Vol] 4.4 mmol/L 3.5-5.1 [facility] Sodium [Moles/Vol] 146 mmol/L High 136-145 [facility] Urea nitrogen [Mass/Vol] 44.0 mg/dL High 7.0-18.0 [facility] Urea nitrogen/Creatinine [Mass ratio] 19.8 mg/mg [facility] Leukocytes [#/volume] correc katy for nucleated erythrocytes in Blood by Automated counon 04-13-2024 WBC corrected for nucl RBC Auto (Bld) [#/Vol] Leukocytes [#/volume] corrected for nucleated erythrocytes in Blood by Automated coun 4.0-11.0 [facility] MCH Auto (RBC) [Entitic mass ]on 04-13-2024 MCH (RBC) [Entitic mass] MCH [Entitic mass] by Automated count 26.7-34.0 [facility] MCHC Auto (RBC) [Mass/Vol]on 04-13-2024 MCHC (RBC) [Mass/Vol] MCHC [Mass/volume] by Automated count Low 29.9-35.2 [facility] MCV Auto (RBC) [Entitic vol] on 04-13-2024 MCV (RBC) [Entitic vol] MCV [Entitic volume] by Automated count High 81.0-99.0 [facility] No Panel Informationon 04-13 Phosphorus Level 3.7 mg/dL 2.6-4.7 [facility] Platelet mean volume Auto (B ld) [Entitic vol]on 04-13-2024 Platelet mean volume (Bld) [Entitic vol] Platelet mean volume [Entitic volume] in Blood by Automated count 9.5-13.5 [facility] Platelets Auto (Bld) [#/Vol] on 04-13-2024 Platelets (Bld) [#/Vol] Platelets [#/volume] in Blood by Automated count 150-450 [facility] RBC Auto (Bld) [#/Vol]on RBC (Bld) [#/Vol] Erythrocytes [#/volu me] in Blood by Automated count Low 4.20-5.40 [facility] Serum or plasma anion gap de terminationon 04-13-2024 Anion gap [Moles/Vol] Serum or plasma an ion gap determination [facility] Erythrocyte distribution wid th Auto (RBC) [Ratio]on 03-17-2024 Erythrocyte distribution width (RBC) [Ratio] 14.8 % 11.0-15.0 [facility] Erythrocyte distribution width (RBC) [Ratio] Erythrocyte distribution width [Ratio] by Automated count 11.0-15.0 [facility] Hematocrit Auto (Bld) [Volum e fraction]on 03-17-2024 Hematocrit (Bld) [Volume fraction] 32.8 % Low 36.0-48.0 [facility] Hematocrit (Bld) [Volume fraction] Hematocrit [Volume Fraction] of Blood by Automated count Low 36.0-48.0 [facility] Hemoglobin [Mass/volume] in Bloodon 03-17-2024 Hemoglobin (Bld) [Mass/Vol] 9.8 g/dL Low 12.0-16.0 [facility] Hemoglobin (Bld) [Mass/Vol] Hemoglobin [Mass/volume] in Blood Low 12.0-16.0 [facility] Iron binding capacity [Mass/ volume] in Serum or Plasmaon 03-17-2024 Iron binding capacity [Mass/Vol] 225.0 ug/dL Low 250.0-450. 0 [facility] Iron binding capacity [Mass/Vol] Iron binding capacity [Mass/volume] in Serum or Plasma Low 250.0-450. 0 [facility] Iron saturation [Mass Fracti on] in Serum or Plasmaon 03-17-2024 Iron saturation [Mass fraction] 22.7 % [facility] Iron saturation [Mass fraction] Iron saturation [Mass Fraction] in Serum or Plasma [facility] Laboratory - Chemistry and C hemistry - challengeon 03-17-2024 Cobalamin (Vitamin B12) [Mass/Vol] 1103 pg/mL 232-1245 [facility] Comment on above: Performed at: [facility] - [address] [id number] Director: Deshaun Hunter PhD, Phone: [phone] Ferritin [Mass/Vol] 65.0 ng/mL 8.0-252.0 [facility] Iron [Mass/Vol] 51.0 ug/dL 50.0-170.0 [facility] Magnesium [Mass/Vol] 2.2 mg/dL 1.8-2.4 [facility] Leukocytes [#/volume] correc katy for nucleated erythrocytes in Blood by Automated counon 03-17-2024 WBC corrected for nucl RBC Auto (Bld) [#/Vol] 6.3 10 3/uL 4.0-11.0 [facility] WBC corrected for nucl RBC Auto (Bld) [#/Vol] Leukocytes [#/volume] corrected for nucleated erythrocytes in Blood by Automated coun 4.0-11.0 [facility] MCH Auto (RBC) [Entitic mass ]on 03-17-2024 MCH (RBC) [Entitic mass] 29.5 pg 26.7-34.0 [facility] MCH (RBC) [Entitic mass] MCH [Entitic mass] by Automated count 26.7-34.0 [facility] MCHC Auto (RBC) [Mass/Vol]on 03-17-2024 MCHC (RBC) [Mass/Vol] 29.9 g/dL 29.9-35.2 [facility] MCHC (RBC) [Mass/Vol] MCHC [Mass/volume] by Automated count 29.9-35.2 [facility] MCV Auto (RBC) [Entitic vol] on 03-17-2024 MCV (RBC) [Entitic vol] 98.8 fL 81.0-99.0 [facility] MCV (RBC) [Entitic vol] MCV [Entitic volume] by Automated count 81.0-99.0 [facility] No Panel Informationon 03-17 Folate 11.70 ng/mL 8.60-58.90 [facility] Parathyroid Hormone (Intact) 78 pg/mL Abnormal 15-65 [facility] Comment on above: Performed at: [facility] [employer] [address] [id number] Director: Deshaun Hunter PhD, Phone: [phone] Platelet mean volume Auto (B ld) [Entitic vol]on 03-17-2024 Platelet mean volume (Bld) [Entitic vol] 10.1 fL 9.5-13.5 [facility] Platelet mean volume (Bld) [Entitic vol] Platelet mean volume [Entitic volume] in Blood by Automated count 9.5-13.5 [facility] Platelets Auto (Bld) [#/Vol] on 03-17-2024 Platelets (Bld) [#/Vol] 179 10 3/uL 150-450 [facility] Platelets (Bld) [#/Vol] Platelets [#/volume] in Blood by Automated count 150-450 [facility] RBC Auto (Bld) [#/Vol]on RBC (Bld) [#/Vol] 3.32 10 6/uL Low 4.20-5.40 [facility] RBC (Bld) [#/Vol] Erythrocytes [#/volu me] in Blood by Automated count Low 4.20-5.40 [facility] Erythrocyte distribution wid th Auto (RBC) [Ratio]on 02-23-2024 Erythrocyte distribution width (RBC) [Ratio] 15.1 % High 11.0-15.0 [facility] Erythrocyte distribution width (RBC) [Ratio] Erythrocyte distribution width [Ratio] by Automated count High 11.0-15.0 [facility] Estimated glomerular filtrat ion rate (GFR) non- Americanon 02-23-2024 GFR/1.73 sq M.predicted among non-blacks MDRD (S/P/Bld) [Vol rate/Area] 20 mL/min/{1.73_m2} Low >=60 mL/min/1.7 3m 2 [facility] GFR/1.73 sq M.predicted among non-blacks MDRD (S/P/Bld) [Vol rate/Area] Estimated glomerular filtration rate (GFR) non- Low >=60 mL/min/1.7 3m 2 [facility] Hematocrit Auto (Bld) [Volum e fraction]on 02-23-2024 Hematocrit (Bld) [Volume fraction] 32.8 % Low 36.0-48.0 [facility] Hematocrit (Bld) [Volume fraction] Hematocrit [Volume Fraction] of Blood by Automated count Low 36.0-48.0 [facility] Hemoglobin [Mass/volume] in Bloodon 02-23-2024 Hemoglobin (Bld) [Mass/Vol] 9.7 g/dL Low 12.0-16.0 [facility] Hemoglobin (Bld) [Mass/Vol] Hemoglobin [Mass/volume] in Blood Low 12.0-16.0 [facility] Laboratory - Chemistry and C hemistry - challengeon 02-23-2024 Albumin [Mass/Vol] 3.0 g/dL Low 3.4-5.0 [facility] Calcium [Mass/Vol] 8.9 mg/dL 8.5-10.1 [facility] Chloride [Moles/Vol] 107 mmol/L 98-107 [facility] CO2 [Moles/Vol] 28.7 mmol/L 21.0-32.0 [facility] Creatinine [Mass/Vol] 2.30 mg/dL High 0.55-1.02 [facility] GFR/1.73 sq M.predicted MDRD (S/P/Bld) [Vol rate/Area] 25 mL/min/{1.73_m2} Low >=60 mL/min/1.7 3m 2 [facility] Glucose [Mass/Vol] 97 mg/dL 74-106 [facility] Potassium [Moles/Vol] 4.0 mmol/L 3.5-5.1 [facility] Sodium [Moles/Vol] 144 mmol/L 136-145 [facility] Urea nitrogen [Mass/Vol] 50.0 mg/dL High 7.0-18.0 [facility] Urea nitrogen/Creatinine [Mass ratio] 21.7 mg/mg [facility] Leukocytes [#/volume] correc katy for nucleated erythrocytes in Blood by Automated counon 02-23-2024 WBC corrected for nucl RBC Auto (Bld) [#/Vol] 4.8 10 3/uL 4.0-11.0 [facility] WBC corrected for nucl RBC Auto (Bld) [#/Vol] Leukocytes [#/volume] corrected for nucleated erythrocytes in Blood by Automated coun 4.0-11.0 [facility] MCH Auto (RBC) [Entitic mass ]on 02-23-2024 MCH (RBC) [Entitic mass] 29.4 pg 26.7-34.0 [facility] MCH (RBC) [Entitic mass] MCH [Entitic mass] by Automated count 26.7-34.0 [facility] MCHC Auto (RBC) [Mass/Vol]on 02-23-2024 MCHC (RBC) [Mass/Vol] 29.6 g/dL Low 29.9-35.2 [facility] MCHC (RBC) [Mass/Vol] MCHC [Mass/volume] by Automated count Low 29.9-35.2 [facility] MCV Auto (RBC) [Entitic vol] on 02-23-2024 MCV (RBC) [Entitic vol] 99.4 fL High 81.0-99.0 [facility] MCV (RBC) [Entitic vol] MCV [Entitic volume] by Automated count High 81.0-99.0 [facility] No Panel Informationon 02-22 Phosphorus Level 3.6 mg/dL 2.6-4.7 [facility] Platelet mean volume Auto (B ld) [Entitic vol]on 02-23-2024 Platelet mean volume (Bld) [Entitic vol] 9.7 fL 9.5-13.5 [facility] Platelet mean volume (Bld) [Entitic vol] Platelet mean volume [Entitic volume] in Blood by Automated count 9.5-13.5 [facility] Platelets Auto (Bld) [#/Vol] on 02-23-2024 Platelets (Bld) [#/Vol] 170 10 3/uL 150-450 [facility] Platelets (Bld) [#/Vol] Platelets [#/volume] in Blood by Automated count 150-450 [facility] RBC Auto (Bld) [#/Vol]on RBC (Bld) [#/Vol] 3.30 10 6/uL Low 4.20-5.40 [facility] RBC (Bld) [#/Vol] Erythrocytes [#/volu me] in Blood by Automated count Low 4.20-5.40 [facility] Serum or plasma anion gap de terminationon 02-23-2024 Anion gap [Moles/Vol] 12.3 mmol/L [facility] Anion gap [Moles/Vol] Serum or plasma an ion gap determination [facility] Erythrocyte distribution wid th Auto (RBC) [Ratio]on 02-03-2024 Erythrocyte distribution width (RBC) [Ratio] 14.4 % 11.0-15.0 [facility] Erythrocyte distribution width (RBC) [Ratio] Erythrocyte distribution width [Ratio] by Automated count 11.0-15.0 [facility] Estimated glomerular filtrat ion rate (GFR) non- Americanon 02-03-2024 GFR/1.73 sq M.predicted among non-blacks MDRD (S/P/Bld) [Vol rate/Area] 19 mL/min/{1.73_m2} Low >=60 [facility] GFR/1.73 sq M.predicted among non-blacks MDRD (S/P/Bld) [Vol rate/Area] Estimated glomerular filtration rate (GFR) non- Low >=60 [facility] Hematocrit Auto (Bld) [Volum e fraction]on 02-03-2024 Hematocrit (Bld) [Volume fraction] 33.5 % Low 36.0-48.0 [facility] Hematocrit (Bld) [Volume fraction] Hematocrit [Volume Fraction] of Blood by Automated count Low 36.0-48.0 [facility] Hemoglobin [Mass/volume] in Bloodon 02-03-2024 Hemoglobin (Bld) [Mass/Vol] 10.0 g/dL Low 12.0-16.0 [facility] Hemoglobin (Bld) [Mass/Vol] Hemoglobin [Mass/volume] in Blood Low 12.0-16.0 [facility] Laboratory - Chemistry and C hemistry - challengeon 02-03-2024 Albumin [Mass/Vol] 3.1 g/dL Low 3.4-5.0 [facility] Calcium [Mass/Vol] 8.8 mg/dL 8.5-10.1 [facility] Chloride [Moles/Vol] 103 mmol/L 98-107 [facility] CO2 [Moles/Vol] 32.9 mmol/L High 21.0-32.0 [facility] Creatinine [Mass/Vol] 2.48 mg/dL High 0.55-1.02 [facility] GFR/1.73 sq M.predicted MDRD (S/P/Bld) [Vol rate/Area] 23 mL/min/{1.73_m2} Low >=60 [facility] Glucose [Mass/Vol] 101 mg/dL 74-106 [facility] Potassium [Moles/Vol] 4.6 mmol/L 3.5-5.1 [facility] Sodium [Moles/Vol] 141 mmol/L 136-145 [facility] Urea nitrogen [Mass/Vol] 51.0 mg/dL High 7.0-18.0 [facility] Urea nitrogen/Creatinine [Mass ratio] 20.6 mg/mg [facility] Leukocytes [#/volume] correc katy for nucleated erythrocytes in Blood by Automated counon 02-03-2024 WBC corrected for nucl RBC Auto (Bld) [#/Vol] 6.3 10 3/uL 4.0-11.0 [facility] WBC corrected for nucl RBC Auto (Bld) [#/Vol] Leukocytes [#/volume] corrected for nucleated erythrocytes in Blood by Automated coun 4.0-11.0 [facility] MCH Auto (RBC) [Entitic mass ]on 02-03-2024 MCH (RBC) [Entitic mass] 29.4 pg 26.7-34.0 [facility] MCH (RBC) [Entitic mass] MCH [Entitic mass] by Automated count 26.7-34.0 [facility] MCHC Auto (RBC) [Mass/Vol]on 02-03-2024 MCHC (RBC) [Mass/Vol] 29.9 g/dL 29.9-35.2 [facility] MCHC (RBC) [Mass/Vol] MCHC [Mass/volume] by Automated count 29.9-35.2 [facility] MCV Auto (RBC) [Entitic vol] on 02-03-2024 MCV (RBC) [Entitic vol] 98.5 fL 81.0-99.0 [facility] MCV (RBC) [Entitic vol] MCV [Entitic volume] by Automated count 81.0-99.0 [facility] No Panel Informationon 02-02 Phosphorus Level 4.7 mg/dL 2.6-4.7 [facility] Platelet mean volume Auto (B ld) [Entitic vol]on 02-03-2024 Platelet mean volume (Bld) [Entitic vol] 9.6 fL 9.5-13.5 [facility] Platelet mean volume (Bld) [Entitic vol] Platelet mean volume [Entitic volume] in Blood by Automated count 9.5-13.5 [facility] Platelets Auto (Bld) [#/Vol] on 02-03-2024 Platelets (Bld) [#/Vol] 227 10 3/uL 150-450 [facility] Platelets (Bld) [#/Vol] Platelets [#/volume] in Blood by Automated count 150-450 [facility] RBC Auto (Bld) [#/Vol]on RBC (Bld) [#/Vol] 3.40 10 6/uL Low 4.20-5.40 [facility] RBC (Bld) [#/Vol] Erythrocytes [#/volu me] in Blood by Automated count Low 4.20-5.40 [facility] Serum or plasma anion gap de terminationon 02-03-2024 Anion gap [Moles/Vol] 9.7 mmol/L [facility] Anion gap [Moles/Vol] Serum or plasma an ion gap determination [facility] Estimated glomerular filtrat ion rate (GFR) non- Americanon 01-23-2024 GFR/1.73 sq M.predicted among non-blacks MDRD (S/P/Bld) [Vol rate/Area] 23 mL/min/{1.73_m2} Low >=60 [facility] GFR/1.73 sq M.predicted among non-blacks MDRD (S/P/Bld) [Vol rate/Area] Estimated glomerular filtration rate (GFR) non- Low >=60 [facility] Laboratory - Chemistry and C hemistry - challengeon 01-23-2024 Albumin [Mass/Vol] 3.0 g/dL Low 3.4-5.0 [facility] Calcium [Mass/Vol] 8.6 mg/dL 8.5-10.1 [facility] Chloride [Moles/Vol] 107 mmol/L 98-107 [facility] CO2 [Moles/Vol] 30.8 mmol/L 21.0-32.0 [facility] Creatinine [Mass/Vol] 2.09 mg/dL High 0.55-1.02 [facility] GFR/1.73 sq M.predicted MDRD (S/P/Bld) [Vol rate/Area] 27 mL/min/{1.73_m2} Low >=60 [facility] Glucose [Mass/Vol] 100 mg/dL 74-106 [facility] Potassium [Moles/Vol] 5.8 mmol/L High 3.5-5.1 [facility] Sodium [Moles/Vol] 144 mmol/L 136-145 [facility] Urea nitrogen [Mass/Vol] 44.0 mg/dL High 7.0-18.0 [facility] Urea nitrogen/Creatinine [Mass ratio] 21.1 mg/mg [facility] No Panel Informationon 01-22 Phosphorus Level 4.1 mg/dL 2.6-4.7 [facility] Serum or plasma anion gap de terminationon 01-23-2024 Anion gap [Moles/Vol] 12.0 mmol/L [facility] Anion gap [Moles/Vol] Serum or plasma an ion gap determination [facility] Erythrocyte distribution wid th Auto (RBC) [Ratio]on 01-20-2024 Erythrocyte distribution width (RBC) [Ratio] 15.0 % 11.0-15.0 [facility] Erythrocyte distribution width (RBC) [Ratio] Erythrocyte distribution width [Ratio] by Automated count 11.0-15.0 [facility] Estimated glomerular filtrat ion rate (GFR) non- Americanon 01-20-2024 GFR/1.73 sq M.predicted among non-blacks MDRD (S/P/Bld) [Vol rate/Area] 23 mL/min/{1.73_m2} Low >=60 [facility] GFR/1.73 sq M.predicted among non-blacks MDRD (S/P/Bld) [Vol rate/Area] Estimated glomerular filtration rate (GFR) non- Low >=60 [facility] Hematocrit Auto (Bld) [Volum e fraction]on 01-20-2024 Hematocrit (Bld) [Volume fraction] 32.5 % Low 36.0-48.0 [facility] [facility] Hematocrit (Bld) [Volume fraction] Hematocrit [Volume Fraction] of Blood by Automated count Low 36.0-48.0 [facility] Hemoglobin [Mass/volume] in Bloodon 01-20-2024 Hemoglobin (Bld) [Mass/Vol] 9.6 g/dL Low 12.0-16.0 [facility] Hemoglobin (Bld) [Mass/Vol] Hemoglobin [Mass/volume] in Blood Low 12.0-16.0 [facility] Iron binding capacity [Mass/ volume] in Serum or Plasmaon 01-20-2024 Iron binding capacity [Mass/Vol] 260.0 ug/dL 250.0-450. 0 [facility] Iron binding capacity [Mass/Vol] Iron binding capacity [Mass/volume] in Serum or Plasma 250.0-450. 0 [facility] Iron saturation [Mass Fracti on] in Serum or Plasmaon 01-20-2024 Iron saturation [Mass fraction] 10.0 % [facility] Iron saturation [Mass fraction] Iron saturation [Mass Fraction] in Serum or Plasma [facility] Laboratory - Chemistry and C hemistry - challengeon 01-20-2024 Albumin [Mass/Vol] 3.0 g/dL Low 3.4-5.0 [facility] Calcium [Mass/Vol] 8.5 mg/dL 8.5-10.1 [facility] Chloride [Moles/Vol] 108 mmol/L High 98-107 [facility] CO2 [Moles/Vol] 31.6 mmol/L 21.0-32.0 [facility] Creatinine [Mass/Vol] 2.06 mg/dL High 0.55-1.02 [facility] Ferritin [Mass/Vol] 36.0 ng/mL 8.0-252.0 [facility] GFR/1.73 sq M.predicted MDRD (S/P/Bld) [Vol rate/Area] 28 mL/min/{1.73_m2} Low >=60 [facility] Glucose [Mass/Vol] 106 mg/dL 74-106 [facility] Iron [Mass/Vol] 26.0 ug/dL Low 50.0-170.0 [facility] Potassium [Moles/Vol] 5.8 mmol/L High 3.5-5.1 [facility] Sodium [Moles/Vol] 144 mmol/L 136-145 [facility] Urea nitrogen [Mass/Vol] 48.0 mg/dL High 7.0-18.0 [facility] Urea nitrogen/Creatinine [Mass ratio] 23.3 mg/mg [facility] Leukocytes [#/volume] correc katy for nucleated erythrocytes in Blood by Automated counon 01-20-2024 WBC corrected for nucl RBC Auto (Bld) [#/Vol] 6.4 10 3/uL 4.0-11.0 [facility] WBC corrected for nucl RBC Auto (Bld) [#/Vol] Leukocytes [#/volume] corrected for nucleated erythrocytes in Blood by Automated coun 4.0-11.0 [facility] MCH Auto (RBC) [Entitic mass ]on 01-20-2024 MCH (RBC) [Entitic mass] 30.0 pg 26.7-34.0 [facility] MCH (RBC) [Entitic mass] MCH [Entitic mass] by Automated count 26.7-34.0 [facility] MCHC Auto (RBC) [Mass/Vol]on 01-20-2024 MCHC (RBC) [Mass/Vol] 29.5 g/dL Low 29.9-35.2 [facility] MCHC (RBC) [Mass/Vol] MCHC [Mass/volume] by Automated count Low 29.9-35.2 [facility] MCV Auto (RBC) [Entitic vol] on 01-20-2024 MCV (RBC) [Entitic vol] 101.6 fL High 81.0-99.0 [facility] MCV (RBC) [Entitic vol] MCV [Entitic volume] by Automated count High 81.0-99.0 [facility] No Panel Informationon 01-19 Phosphorus Level 4.2 mg/dL 2.6-4.7 [facility] Platelet mean volume Auto (B ld) [Entitic vol]on 01-20-2024 Platelet mean volume (Bld) [Entitic vol] 9.6 fL 9.5-13.5 [facility] Platelet mean volume (Bld) [Entitic vol] Platelet mean volume [Entitic volume] in Blood by Automated count 9.5-13.5 [facility] Platelets Auto (Bld) [#/Vol] on 01-20-2024 Platelets (Bld) [#/Vol] 196 10 3/uL 150-450 [facility] Platelets (Bld) [#/Vol] Platelets [#/volume] in Blood by Automated count 150-450 [facility] RBC Auto (Bld) [#/Vol]on RBC (Bld) [#/Vol] 3.20 10 6/uL Low 4.20-5.40 [facility] RBC (Bld) [#/Vol] Erythrocytes [#/volu me] in Blood by Automated count Low 4.20-5.40 [facility] Serum or plasma anion gap de terminationon 01-20-2024 Anion gap [Moles/Vol] 10.2 mmol/L Fi [facility] Anion gap [Moles/Vol] Serum or plasma an ion gap determination [facility] 36on 01-07-2024 36 Please forward to PCP Normal [facility] Refillon 01-06-2024 Refill [id number] Dany Martínez 1940 F Date Provider Department Center 01/[id number]/[id number] [facility] No family history on file Reason for Visit and Comments: Med Refill [[id number]] Normal [facility] Erythrocyte distribution wid th Auto (RBC) [Ratio]on 01-05-2024 Erythrocyte distribution width (RBC) [Ratio] 14.2 % 11.0-15.0 [facility] Erythrocyte distribution width (RBC) [Ratio] Erythrocyte distribution width [Ratio] by Automated count 11.0-15.0 [facility] Hematocrit Auto (Bld) [Volum e fraction]on 01-05-2024 Hematocrit (Bld) [Volume fraction] 32.4 % Low 36.0-48.0 [facility] Hematocrit (Bld) [Volume fraction] Hematocrit [Volume Fraction] of Blood by Automated count Low 36.0-48.0 [facility] Hemoglobin [Mass/volume] in Bloodon 01-05-2024 Hemoglobin (Bld) [Mass/Vol] 9.8 g/dL Low 12.0-16.0 [facility] Hemoglobin (Bld) [Mass/Vol] Hemoglobin [Mass/volume] in Blood Low 12.0-16.0 [facility] Leukocytes [#/volume] correc katy for nucleated erythrocytes in Blood by Automated counon 01-05-2024 WBC corrected for nucl RBC Auto (Bld) [#/Vol] 5.7 10 3/uL 4.0-11.0 [facility] WBC corrected for nucl RBC Auto (Bld) [#/Vol] Leukocytes [#/volume] corrected for nucleated erythrocytes in Blood by Automated coun 4.0-11.0 [facility] MCH Auto (RBC) [Entitic mass ]on 01-05-2024 MCH (RBC) [Entitic mass] 30.1 pg 26.7-34.0 [facility] MCH (RBC) [Entitic mass] MCH [Entitic mass] by Automated count 26.7-34.0 [facility] MCHC Auto (RBC) [Mass/Vol]on 01-05-2024 MCHC (RBC) [Mass/Vol] 30.2 g/dL 29.9-35.2 [facility] MCHC (RBC) [Mass/Vol] MCHC [Mass/volume] by Automated count 29.9-35.2 [facility] MCV Auto (RBC) [Entitic vol] on 01-05-2024 MCV (RBC) [Entitic vol] 99.4 fL High 81.0-99.0 [facility] MCV (RBC) [Entitic vol] MCV [Entitic volume] by Automated count High 81.0-99.0 [facility] Platelet mean volume Auto (B ld) [Entitic vol]on 01-05-2024 Platelet mean volume (Bld) [Entitic vol] 9.3 fL Low 9.5-13.5 [facility] Platelet mean volume (Bld) [Entitic vol] Platelet mean volume [Entitic volume] in Blood by Automated count Low 9.5-13.5 [facility] Platelets Auto (Bld) [#/Vol] on 01-05-2024 Platelets (Bld) [#/Vol] 211 10 3/uL 150-450 [facility] Platelets (Bld) [#/Vol] Platelets [#/volume] in Blood by Automated count 150-450 [facility] RBC Auto (Bld) [#/Vol]on RBC (Bld) [#/Vol] 3.26 10 6/uL Low 4.20-5.40 [facility] RBC (Bld) [#/Vol] Erythrocytes [#/volu me] in Blood by Automated count Low 4.20-5.40 [facility] No Panel Informationon 12-07 Bedside Glucose 124 [facility] Erythrocyte distribution wid th Auto (RBC) [Ratio]on 11-27-2023 Erythrocyte distribution width (RBC) [Ratio] 14.7 % 11.0-15.0 [facility] Hematocrit Auto (Bld) [Volum e fraction]on 11-27-2023 Hematocrit (Bld) [Volume fraction] 31.1 % Low 36.0-48.0 [facility] Hemoglobin [Mass/volume] in Bloodon 11-27-2023 Hemoglobin (Bld) [Mass/Vol] 9.3 g/dL Low 12.0-16.0 [facility] Leukocytes [#/volume] correc katy for nucleated erythrocytes in Blood by Automated counon 11-27-2023 WBC corrected for nucl RBC Auto (Bld) [#/Vol] 5.4 10 3/uL 4.0-11.0 [facility] MCH Auto (RBC) [Entitic mass ]on 11-27-2023 MCH (RBC) [Entitic mass] 29.5 pg 26.7-34.0 [facility] MCHC Auto (RBC) [Mass/Vol]on 11-27-2023 MCHC (RBC) [Mass/Vol] 29.9 g/dL 29.9-35.2 [facility] MCV Auto (RBC) [Entitic vol] on 11-27-2023 MCV (RBC) [Entitic vol] 98.7 fL 81.0-99.0 [facility] Platelet mean volume Auto (B ld) [Entitic vol]on 11-27-2023 Platelet mean volume (Bld) [Entitic vol] 9.9 fL 9.5-13.5 [facility] Platelets Auto (Bld) [#/Vol] on 11-27-2023 Platelets (Bld) [#/Vol] 195 10 3/uL 150-450 [facility] RBC Auto (Bld) [#/Vol]on RBC (Bld) [#/Vol] 3.15 10 6/uL Low 4.20-5.40 [facility] Erythrocyte distribution wid th Auto (RBC) [Ratio]on 11-13-2023 Erythrocyte distribution width (RBC) [Ratio] 14.6 % 11.0-15.0 [facility] Estimated glomerular filtrat ion rate (GFR) non- Americanon 11-13-2023 GFR/1.73 sq M.predicted among non-blacks MDRD (S/P/Bld) [Vol rate/Area] 19 mL/min/{1.73_m2} Low >=60 [facility] Hematocrit Auto (Bld) [Volum e fraction]on 11-13-2023 Hematocrit (Bld) [Volume fraction] 30.1 % Low 36.0-48.0 [facility] Hemoglobin [Mass/volume] in Bloodon 11-13-2023 Hemoglobin (Bld) [Mass/Vol] 8.9 g/dL Low 12.0-16.0 [facility] Laboratory - Chemistry and C hemistry - challengeon 11-13-2023 Albumin [Mass/Vol] 3.1 g/dL Low 3.4-5.0 [facility] Calcium [Mass/Vol] 8.4 mg/dL Low 8.5-10.1 [facility] Chloride [Moles/Vol] 106 mmol/L 98-107 [facility] CO2 [Moles/Vol] 29.3 mmol/L 21.0-32.0 [facility] Creatinine [Mass/Vol] 2.41 mg/dL High 0.55-1.02 [facility] GFR/1.73 sq M.predicted MDRD (S/P/Bld) [Vol rate/Area] 23 mL/min/{1.73_m2} Low >=60 [facility] Glucose [Mass/Vol] 97 mg/dL 74-106 [facility] Potassium [Moles/Vol] 4.8 mmol/L 3.5-5.1 [facility] Sodium [Moles/Vol] 143 mmol/L 136-145 [facility] Urea nitrogen [Mass/Vol] 47.0 mg/dL High 7.0-18.0 [facility] Urea nitrogen/Creatinine [Mass ratio] 19.5 mg/mg [facility] Leukocytes [#/volume] correc katy for nucleated erythrocytes in Blood by Automated counon 11-13-2023 WBC corrected for nucl RBC Auto (Bld) [#/Vol] 5.0 10 3/uL 4.0-11.0 [facility] MCH Auto (RBC) [Entitic mass ]on 11-13-2023 MCH (RBC) [Entitic mass] 28.9 pg 26.7-34.0 [facility] MCHC Auto (RBC) [Mass/Vol]on 11-13-2023 MCHC (RBC) [Mass/Vol] 29.6 g/dL Low 29.9-35.2 [facility] MCV Auto (RBC) [Entitic vol] on 11-13-2023 MCV (RBC) [Entitic vol] 97.7 fL 81.0-99.0 [facility] No Panel Informationon 11-12 Phosphorus Level 4.2 mg/dL 2.6-4.7 [facility] Platelet mean volume Auto (B ld) [Entitic vol]on 11-13-2023 Platelet mean volume (Bld) [Entitic vol] 9.7 fL 9.5-13.5 [facility] Platelets Auto (Bld) [#/Vol] on 11-13-2023 Platelets (Bld) [#/Vol] 228 10 3/uL 150-450 [facility] RBC Auto (Bld) [#/Vol]on RBC (Bld) [#/Vol] 3.08 10 6/uL Low 4.20-5.40 [facility] Serum or plasma anion gap de terminationon 11-13-2023 Anion gap [Moles/Vol] 12.5 mmol/L [facility] Erythrocyte distribution wid th Auto (RBC) [Ratio]on 10-30-2023 Erythrocyte distribution width (RBC) [Ratio] 14.1 % 11.0-15.0 [facility] Estimated glomerular filtrat ion rate (GFR) non- Americanon 10-30-2023 GFR/1.73 sq M.predicted among non-blacks MDRD (S/P/Bld) [Vol rate/Area] 18 mL/min/{1.73_m2} Low >=60 [facility] Hematocrit Auto (Bld) [Volum e fraction]on 10-30-2023 Hematocrit (Bld) [Volume fraction] 28.0 % Low 36.0-48.0 [facility] Hemoglobin [Mass/volume] in Bloodon 10-30-2023 Hemoglobin (Bld) [Mass/Vol] 8.3 g/dL Low 12.0-16.0 [facility] Laboratory - Chemistry and C hemistry - challengeon 10-30-2023 Albumin [Mass/Vol] 2.9 g/dL Low 3.4-5.0 [facility] Calcium [Mass/Vol] 8.6 mg/dL 8.5-10.1 [facility] Chloride [Moles/Vol] 107 mmol/L 98-107 [facility] CO2 [Moles/Vol] 28.1 mmol/L 21.0-32.0 [facility] Creatinine [Mass/Vol] 2.52 mg/dL High 0.55-1.02 [facility] GFR/1.73 sq M.predicted MDRD (S/P/Bld) [Vol rate/Area] 22 mL/min/{1.73_m2} Low >=60 [facility] Glucose [Mass/Vol] 100 mg/dL 74-106 [facility] Potassium [Moles/Vol] 5.7 mmol/L High 3.5-5.1 [facility] Sodium [Moles/Vol] 142 mmol/L 136-145 [facility] Urea nitrogen [Mass/Vol] 43.0 mg/dL High 7.0-18.0 [facility] Urea nitrogen/Creatinine [Mass ratio] 17.1 mg/mg [facility] Leukocytes [#/volume] correc katy for nucleated erythrocytes in Blood by Automated counon 10-30-2023 WBC corrected for nucl RBC Auto (Bld) [#/Vol] 4.6 10 3/uL 4.0-11.0 [facility] MCH Auto (RBC) [Entitic mass ]on 10-30-2023 MCH (RBC) [Entitic mass] 28.7 pg 26.7-34.0 [facility] MCHC Auto (RBC) [Mass/Vol]on 10-30-2023 MCHC (RBC) [Mass/Vol] 29.6 g/dL Low 29.9-35.2 [facility] MCV Auto (RBC) [Entitic vol] on 10-30-2023 MCV (RBC) [Entitic vol] 96.9 fL 81.0-99.0 [facility] No Panel Informationon 10-29 Parathyroid Hormone (Intact) 73 pg/mL Abnormal 15-65 [facility] Comment on above: Performed at: [facility] [place] [id number] Director: Deshaun Hunter PhD, Phone: [phone] Phosphorus Level 4.3 mg/dL 2.6-4.7 [facility] Platelet mean volume Auto (B ld) [Entitic vol]on 10-30-2023 Platelet mean volume (Bld) [Entitic vol] 9.8 fL 9.5-13.5 [facility] Platelets Auto (Bld) [#/Vol] on 10-30-2023 Platelets (Bld) [#/Vol] 178 10 3/uL 150-450 [facility] RBC Auto (Bld) [#/Vol]on RBC (Bld) [#/Vol] 2.89 10 6/uL Low 4.20-5.40 [facility] Serum or plasma anion gap de terminationon 10-30-2023 Anion gap [Moles/Vol] 12.6 mmol/L [facility] Erythrocyte distribution wid th Auto (RBC) [Ratio]on 10-07-2023 Erythrocyte distribution width (RBC) [Ratio] 14.2 % 11.0-15.0 [facility] Hematocrit Auto (Bld) [Volum e fraction]on 10-07-2023 Hematocrit (Bld) [Volume fraction] 28.0 % Low 36.0-48.0 [facility] Hemoglobin [Mass/volume] in Bloodon 10-07-2023 Hemoglobin (Bld) [Mass/Vol] 8.6 g/dL Low 12.0-16.0 [facility] Leukocytes [#/volume] correc katy for nucleated erythrocytes in Blood by Automated counon 10-07-2023 WBC corrected for nucl RBC Auto (Bld) [#/Vol] 5.1 10 3/uL 4.0-11.0 [facility] MCH Auto (RBC) [Entitic mass ]on 10-07-2023 MCH (RBC) [Entitic mass] 30.1 pg 26.7-34.0 [facility] MCHC Auto (RBC) [Mass/Vol]on 10-07-2023 MCHC (RBC) [Mass/Vol] 30.7 g/dL 29.9-35.2 [facility] MCV Auto (RBC) [Entitic vol] on 10-07-2023 MCV (RBC) [Entitic vol] 97.9 fL 81.0-99.0 [facility] Platelet mean volume Auto (B ld) [Entitic vol]on 10-07-2023 Platelet mean volume (Bld) [Entitic vol] 10.1 fL 9.5-13.5 [facility] Platelets Auto (Bld) [#/Vol] on 10-07-2023 Platelets (Bld) [#/Vol] 194 10 3/uL 150-450 [facility] RBC Auto (Bld) [#/Vol]on RBC (Bld) [#/Vol] 2.86 10 6/uL Low 4.20-5.40 [facility] Erythrocyte distribution wid th Auto (RBC) [Ratio]on 09-16-2023 Erythrocyte distribution width (RBC) [Ratio] 14.0 % 11.0-15.0 [facility] Estimated glomerular filtrat ion rate (GFR) non- Americanon 09-16-2023 GFR/1.73 sq M.predicted among non-blacks MDRD (S/P/Bld) [Vol rate/Area] 22 mL/min/{1.73_m2} Low >=60 [facility] Hematocrit Auto (Bld) [Volum e fraction]on 09-16-2023 Hematocrit (Bld) [Volume fraction] 25.6 % Low 36.0-48.0 [facility] Hemoglobin [Mass/volume] in Bloodon 09-16-2023 Hemoglobin (Bld) [Mass/Vol] 7.5 g/dL Low 12.0-16.0 [facility] Laboratory - Chemistry and C hemistry - challengeon 09-16-2023 Albumin [Mass/Vol] 3.1 g/dL Low 3.4-5.0 [facility] Calcium [Mass/Vol] 9.2 mg/dL 8.5-10.1 [facility] Chloride [Moles/Vol] 107 mmol/L 98-107 [facility] CO2 [Moles/Vol] 28.2 mmol/L 21.0-32.0 [facility] Creatinine [Mass/Vol] 2.17 mg/dL High 0.55-1.02 [facility] GFR/1.73 sq M.predicted MDRD (S/P/Bld) [Vol rate/Area] 26 mL/min/{1.73_m2} Low >=60 [facility] Glucose [Mass/Vol] 98 mg/dL 74-106 [facility] Potassium [Moles/Vol] 5.1 mmol/L 3.5-5.1 [facility] Sodium [Moles/Vol] 142 mmol/L 136-145 [facility] Urea nitrogen [Mass/Vol] 43.0 mg/dL High 7.0-18.0 [facility] Urea nitrogen/Creatinine [Mass ratio] 19.8 mg/mg [facility] Laboratory - Urinalysison Protein (U) [Mass/Vol] 117.6 mg/dL High <=11.9 [facility] Leukocytes [#/volume] correc katy for nucleated erythrocytes in Blood by Automated counon 09-16-2023 WBC corrected for nucl RBC Auto (Bld) [#/Vol] 5.4 10 3/uL 4.0-11.0 [facility] MCH Auto (RBC) [Entitic mass ]on 09-16-2023 MCH (RBC) [Entitic mass] 29.2 pg 26.7-34.0 [facility] MCHC Auto (RBC) [Mass/Vol]on 09-16-2023 MCHC (RBC) [Mass/Vol] 29.3 g/dL Low 29.9-35.2 [facility] MCV Auto (RBC) [Entitic vol] on 09-16-2023 MCV (RBC) [Entitic vol] 99.6 fL High 81.0-99.0 [facility] No Panel Informationon 09-15 Parathyroid Hormone (Intact) 75 pg/mL Abnormal 15-65 [facility] Comment on above: Performed at: [facility] [address] [id number] Director: Deshaun Hunter PhD, Phone: [phone] Phosphorus Level 4.6 mg/dL 2.6-4.7 [facility] Urine Random Creatinine 38.12 mg/dL 20.00-300. 00 [facility] Platelet mean volume Auto (B ld) [Entitic vol]on 09-16-2023 Platelet mean volume (Bld) [Entitic vol] 10.3 fL 9.5-13.5 [facility] Platelets Auto (Bld) [#/Vol] on 09-16-2023 Platelets (Bld) [#/Vol] 225 10 3/uL 150-450 [facility] RBC Auto (Bld) [#/Vol]on RBC (Bld) [#/Vol] 2.57 10 6/uL Low 4.20-5.40 [facility] Serum or plasma anion gap de terminationon 09-16-2023 Anion gap [Moles/Vol] 11.9 mmol/L [facility] protein/creatinine rat ioon 09-16-2023 Protein/Creatinine (U) [Ratio] 3.08 [facility] Activated partial thrombopla stin time (aPTT) in platelet poor plasma by coagulation aOrdered By: Rin Ramirez on 09-01-2023 aPTT Coag (PPP) [Time] 30.5 s 25.1-36.5 [facility] Comment on above: A hematocrit value g reater than 55% may lead to inaccurate results in coagulation testing. Patients having hematocrit values >55% require a special collection tube for coagulation studies. Please contact the laboratory at [phone] for redraw instructions. Albumin [Mass/volume] in Ser um or Plasma by Bromocresol green (BCG) dye binding methoOrdered By: Rin Ramirez on 09-01-2023 Albumin BCG dye [Mass/Vol] 3.6 g/dL 3.5-5.7 [facility] Automated erythrocytes count in urine sediment (number/area)Ordered By: Rin Ramirez on 09-01-2023 RBC Auto (Urine sed) [#/Area] 50-100 [HPF] High 0-4 [facility] Automated leukocytes count i n urine sediment (number/area)Ordered By: Rin Ramirez on 09-01-2023 WBC Auto (Urine sed) [#/Area] 1-2 [HPF] 0-4 [facility] Bilirubin Test strip Ql (U)O rdered By: Rin Ramirez on 09-01-2023 Bilirubin Ql (U) Negative Negative [facility] Calcium [Mass/volume] in Ser um or PlasmaOrdered By: Rin Ramirez on 09-01-2023 Calcium [Mass/Vol] 8.9 mg/dL 8.6-10.3 [facility] Carbon dioxide, total [Moles /volume] in Serum or PlasmaOrdered By: Rin Ramirez on 09-01-2023 CO2 [Moles/Vol] 30.5 mmol/L 21.0-31.0 [facility] Chloride [Moles/volume] in S adriana or PlasmaOrdered By: Rin Ramirez on 09-01-2023 Chloride [Moles/Vol] 107 mmol/L 98-107 [facility] Color Auto (U)Ordered By: Domingo Ramirez on 09-01-2023 Color (U) Yellow Yellow [facility] Creatinine [Mass/volume] in Serum or PlasmaOrdered By: Rin Ramirez on 09-01-2023 Creatinine [Mass/Vol] 2.02 mg/dL High 0.60-1.20 [facility] Creatinine [Mass/volume] in UrineOrdered By: Rin Ramirez on 09-01-2023 Creatinine (U) [Mass/Vol] 52.0 mg/dL [facility] Comment on above: No reference range e stablished Erythrocyte distribution wid th Auto (RBC) [Ratio]Ordered By: Rin Ramirez on 09-01-2023 Erythrocyte distribution width (RBC) [Ratio] 14.7 % 11.9-15.3 [facility] Ferritin [Mass/volume] in Se rum or PlasmaOrdered By: Rin Ramirez on 09-01-2023 Ferritin [Mass/Vol] 16.5 ng/mL 11.0-306.8 [facility] Folate [Mass/volume] in Seru m or PlasmaOrdered By: Rin Ramirez on 09-01-2023 Folate [Mass/Vol] 16.5 ng/mL >5.9 [facility] Comment on above: Folate reference ran ge: >5.9 ng/mlThe WHO technical consultation on folate and vitamin [id number] has determined that folate concentrations lessthan 4 ng/ml are considered deficient. Glucose [Mass/volume] in Ser um or PlasmaOrdered By: Rin Ramirez on 09-01-2023 Glucose [Mass/Vol] 121 mg/dL High 70-100 [facility] Comment on above: ADA recommended refe rence rangeRandom Glucose Reference Range is dependent on time and content of last meal. Glucose of more than 200 mg/dL in a nonstressed, ambulatory subject supports the diagnosis of Diabetes Mellitus. Hematocrit Auto (Bld) [Volum e fraction]Ordered By: Rin Ramirez on 09-01-2023 Hematocrit (Bld) [Volume fraction] 25.0 % Low 34.0-46.4 [facility] Hemoglobin [Mass/volume] in BloodOrdered By: Rin Ramirez 09-01-2023 Hemoglobin (Bld) [Mass/Vol] 8.0 g/dL Low 11.8-15.4 [facility] INR in Platelet poor plasma by Coagulation assayOrdered By: Rin Ramirez on 09-01-2023 INR Coag (PPP) [Relative time] 1.0 {INR} [facility] Comment on above: INR Therapeutic Rang e [...] on 09-01-2023 Iron [Mass/Vol] 122 ug/dL 50-212 [facility] Iron binding capacity [Mass/ volume] in Serum or PlasmaOrdered By: Rin Ramirez on 09-01-2023 Iron binding capacity [Mass/Vol] 360 ug/dL 255-450 [facility] Iron saturation [Mass Fracti on] in Serum or PlasmaOrdered By: Rin Ramirez on 09-01-2023 Iron saturation [Mass fraction] 33.9 % 20-50 [facility] Ketones Auto test strip (U) [Mass/Vol]Ordered By: Rin Ramirez on 09-01-2023 Ketones (U) [Mass/Vol] Negative Negative [facility] Laboratory - UrinalysisOrder ed By: Rin Ramirez on 09-01-2023 Hyaline casts LM Ql (Urine sed) 0-8 [LPF] 0-8 [facility] Leukocytes [#/volume] correc katy for nucleated erythrocytes in Blood by Automated counOrdered By: Rin Ramirez on 09-01-2023 WBC corrected for nucl RBC Auto (Bld) [#/Vol] 4.7 10*3/uL 3.8-11.6 [facility] MCH Auto (RBC) [Entitic mass ]Ordered By: Rin Ramirez on 09-01-2023 MCH (RBC) [Entitic mass] 29.3 pg 24.7-34.3 [facility] MCHC Auto (RBC) [Mass/Vol]Or dered By: Rin Ramirez on 09-01-2023 MCHC (RBC) [Mass/Vol] 31.9 g/dL Low 32.0-35.0 [facility] MCV Auto (RBC) [Entitic vol] Ordered By: Rin Ramirez on 09-01-2023 MCV (RBC) [Entitic vol] 92.0 fL 80-100 [facility] Magnesium [Mass/volume] in S adriana or PlasmaOrdered By: Rin Ramirez on 09-01-2023 Magnesium [Mass/Vol] 1.9 mg/dL 1.9-2.7 [facility] Microalbumin [Mass/volume] i n UrineOrdered By: Rin Ramirez on 09-01-2023 Albumin DL <= 20 mg/L (U) [Mass/Vol] mg/dL High 0.0-1.8 [facility] Nitrite Test strip Ql (U)Ord ered By: Rin Ramirez on 09-01-2023 Nitrite Ql (U) Negative Negative [facility] No Panel InformationOrdered By: Rin Ramirez on 09-01-2023 Estimated GFR (CKD-EPI) 24.043 mL/Min [facility] [facility] Creatinine Clearance (Chem 21.55 [facility] Parathyrin.intact [Mass/volu me] in Serum or PlasmaOrdered By: Rin Ramirez 09-01-2023 Parathyrin.intact [Mass/Vol] 188.2 pg/mL High 12-88 [facility] Phosphate [Mass/volume] in S adriana or PlasmaOrdered By: Rin Ramirez on 09-01-2023 Phosphate [Mass/Vol] 4.2 mg/dL 2.5-4.5 [facility] Platelet mean volume Auto (B ld) [Entitic vol]Ordered By: Rin Ramirez on 09-01-2023 Platelet mean volume (Bld) [Entitic vol] 8.1 fL 6.3-10.7 [facility] Platelets Auto (Bld) [#/Vol] Ordered By: Rin Ramirez on 09-01-2023 Platelets (Bld) [#/Vol] 214 10*3/uL 150-450 [facility] Potassium [Moles/volume] in Serum or PlasmaOrdered By: Rin Ramirez on 09-01-2023 Potassium [Moles/Vol] 4.7 mmol/L 3.5-5.1 [facility] Protein Auto test strip (U) [Mass/Vol]Ordered By: Rin Ramirez on 09-01-2023 Protein (U) [Mass/Vol] 300 mg/dL High Negative [facility] Protein [Mass/volume] in Uri neOrdered By: Rin Ramirez on 09-01-2023 Protein (U) [Mass/Vol] 199 mg/dL High 0-9 [facility] Prothrombin time (PT)Ordered By: Rin Ramirez on 09-01-2023 PT Coag (PPP) [Time] 11.4 s 9.0-12.9 [facility] Comment on above: A hematocrit value g reater than 55% may lead to inaccurate results in coagulation testing. Patients having hematocrit values >55% require a special collection tube for coagulation studies. Please contact the laboratory at [phone] for redraw instructions. RBC Auto (Bld) [#/Vol]Ordere d By: Rin Ramirez on 09-01-2023 RBC (Bld) [#/Vol] 2.72 10*6/uL Low 3.60-5.00 [facility] Serum or plasma anion gap de terminationOrdered By: Rin Ramirez on 09-01-2023 Anion gap [Moles/Vol] 9.2 mmol/L 6.0-15.0 [facility] Sodium [Moles/volume] in Ser um or PlasmaOrdered By: Rin Ramirez on 09-01-2023 Sodium [Moles/Vol] 142 mmol/L 136-145 [facility] Sodium [Moles/volume] in Uri neOrdered By: Rin Ramirez on 09-01-2023 Sodium (U) [Moles/Vol] 137 mmol/L [facility] Comment on above: No reference range e stablished Specific gravity Auto test s trip (U) [Rel density]Ordered By: Rin Ramirez on 09-01-2023 Specific gravity (U) [Rel density] 1.015 1.001-1.03 0 [facility] Squamous epithelial cells de tection in urine sediment by light microscopyOrdered By: Rin Ramirez on 09-01-2023 Epithelial cells.squamous LM Ql (Urine sed) 0-1 [HPF] 0-2 [facility] Transferrin [Mass/volume] in Serum or PlasmaOrdered By: Rin Ramirez on 09-01-2023 Transferrin [Mass/Vol] 257 mg/dL 203-362 [facility] Urea nitrogen [Mass/volume] in Serum or PlasmaOrdered By: Rin Ramirez on 09-01-2023 Urea nitrogen [Mass/Vol] 32 mg/dL High 7-25 [facility] Urine bacteria detection by automated methodOrdered By: Rin Ramirez on 09-01-2023 Bacteria Auto Ql (U) None seen None Seen [facility] Urine clarity by refractomet ry automatedOrdered By: Rin Ramirez on 09-01-2023 Clarity Refractometry automated (U) Cloudy Abnormal Clear [facility] Urine glucose measurement by automated test strip (mass/volume)Ordered By: Rin Ramirez on 09-01-2023 Glucose Auto test strip (U) [Mass/Vol] Normal mg/dL Normal [facility] Urine hemoglobin detection b y automated test stripOrdered By: Rin Ramirez on 09-01-2023 Hemoglobin Auto test strip Ql (U) 1+ High Negative [facility] Urine leukocyte esterase det ection by automated test stripOrdered By: Rin Ramirez on 09-01-2023 Leukocyte esterase Auto test strip Ql (U) Negative Negative [facility] Urine microalbumin/creatinin e mass ratioOrdered By: Rin Ramirez on 09-01-2023 Albumin/Creatinine DL <= 20 mg/L (U) [Mass ratio] TNP [facility] Comment on above: Test not performed Urine protein/creatinine rat ioOrdered By: Rin Ramirez on 09-01-2023 Protein/Creatinine (U) [Ratio] 3827 mg/g{Cre} High 0-200 [facility] Urobilinogen Auto test strip (U) [Mass/Vol]Ordered By: Rin Ramirez on 09-01-2023 Urobilinogen (U) [Mass/Vol] Normal mg/dL Normal [facility] Vitamin B12 ser/plasOrdered By: Rin Ramirez on 09-01-2023 Cobalamin (Vitamin B12) [Mass/Vol] 862 pg/mL 180-914 [facility] Vitamin D+Metabolites [Mass/ volume] in Serum or PlasmaOrdered By: Rin Ramirez on 09-01-2023 Vitamin D+Metabolites [Mass/Vol] 18.3 ng/mL Low 30-100 [facility] Comment on above: VITAMIN D STATUS 25( [place])VITAMIN D RANGE (ng/mL) Deficient <20 Insufficient 20 to <30Sufficient 30 to 100Reference: Jacoby MF,Rell NC, Xochitl WILLIAMSON, et al. Evaluation,treatment, and prevention of vitamin D deficiency; an Endocrine Society clinical practice guideline. JCEM. 2010; 96(7):1911-30. pH Auto test strip (U)Ordere d By: Rin Ramirez on 09-01-2023 pH (U) 7.0 [pH] 5.0-9.0 [facility] HbA1c HPLC (Bld) [Mass fract ion]on 08-20-2023 HbA1c (Bld) [Mass fraction] 5.7 % [facility] No Panel Informationon 08-19 Bedside Glucose 106 [facility] No Panel Informationon 08-04 Miscellaneous Test COMMENT . [facility] Comment on above: Test Ordered: [id number] Prot Electro+Interp, 24-Hr UrProtein,Total,Urine 132.1 mg/dL CB Reference Range: Not Estab.Prot,24hr calculated 2741 [H ] mg/24 hr CB Reference Range: 30-150Albumin, U 66.3 % CB Reference Range: .Wzpwp-1-Fkuykvbz, U 7.5 % CB Reference Range: .Citti-1-Uaxxydqi, U 10.6 % CB Reference Range: .Beta Globulin, U 11.9 % CB Reference Range: .Gamma Globulin, U 3.7 % CB Reference Range: .M-Tr, % Note: % CB Not Observed Reference Range: Not ObservedM-Tr, mg/24 hr [employer]PRESENTATIVE [employer] Reference Range: .Please note: Comment CB Reference Range: .Protein electrophoresis scan will follow via computer,mail, or skilled laborer delivery.P E Interpretation, U Comment CB Reference Range: .The urine protein electrophoresis pattern reflects thepresence of specific higher molecular mass proteins withmoderate proteinuria. This pattern may be characterized asrepresenting a severe selective glomerular nephropathyindicating increased glomerular permeability. Monoclonalprotein is not apparent.Performed at: [facility] [place] [id number] Director: Deshaun Hunter PhD, Phone: [phone] Activated partial thrombopla stin time (aPTT) in platelet poor plasma by coagulation aon 08-01-2023 aPTT Coag (PPP) [Time] 38.6 s 22.3-36.2 [facility] Atypical perinuclear antineu trophil cytoplasmic antibodies measurementon 08-01-2023 Neutrophil cytoplasmic Ab.perinuclear.atypica l IF (S) [Titer] <1:20 titer Neg:<1:20 [facility] Comment on above: The atypical pANCA p attern has been observed in asignificant percentage of patients with ulcerative colitis,primary sclerosing cholangitis and autoimmune hepatitis. Automated urine specific gra vity by refractometryon 08-01-2023 Specific gravity Refractometry automated (U) [Rel density] 1.020 1.005-1.02 5 [facility] Bilirubin Auto test strip (U ) [Mass/Vol]on 08-01-2023 Bilirubin (U) [Mass/Vol] Negative NEGATIVE [facility] Cefuroxime free [Mass/Vol]on 08-01-2023 Anti-Nuclear Antibody Profile Negative Negative [facility] Comment on above: Performed at: [employer] [place], [place] [id number] Director: Deshaun Hunter PhD, Phone: [phone] Performed at: [employer] [place], [place] [id number] Director: Deshaun Hunter PhD, Phone: [phone] Color Auto (U)on 08-01-2023 Color (U) LT. YELLOW YELLOW [facility] Erythrocyte distribution wid th Auto (RBC) [Ratio]on 08-01-2023 Erythrocyte distribution width (RBC) [Ratio] 13.1 % 11.0-15.0 [facility] Estimated glomerular filtrat ion rate (GFR) non- Americanon 08-01-2023 GFR/1.73 sq M.predicted among non-blacks MDRD (S/P/Bld) [Vol rate/Area] 27 mL/min/{1.73_m2} >=60 [facility] Globulin Calc (S) [Mass/Vol] on 08-01-2023 Globulin (S) [Mass/Vol] 3.3 g/dL [facility] Glomerular basement membrane Ab [Units/volume] in Serum by Immunoassayon 08-01-2023 Glomerular basement membrane Ab IA Qn (S) <0.2 units 0.0-0.9 [facility] Comment on above: Performed at: [facility] [address] [id number] Director: Jhon Roberts MD, Phone: [phone] at: [facility] [address] [id number] Director: Deshaun Hunter PhD, Phone: [phone] HBV surface Ag IA Qlon 07-31 Hepatitis B Surface Antigen Negative Negative [facility] Comment on above: Performed at: [facility] [address] [id number] Director: Deshaun Hunter PhD, Phone: [phone] Performed at: [facility] [address] [id number] Director: Deshaun Hunter PhD, Phone: [phone] Hematocrit Auto (Bld) [Volum e fraction]on 08-01-2023 Hematocrit (Bld) [Volume fraction] 27.0 % 36.0-48.0 [facility] Hemoglobin [Mass/volume] in Bloodon 08-01-2023 Hemoglobin (Bld) [Mass/Vol] 7.8 g/dL 12.0-16.0 [facility] INR in Platelet poor plasma by Coagulation assayon 08-01-2023 INR Coag (PPP) [Relative time] 2.43 {INR} [facility] Comment on above: DESIRED INR:2.0-3.0 CONDITIONS NOT LISTED BELOW2.5-3.5 FOR PROSTHETIC HEART VALVE REPLACEMENT2.5-3.5 RECURRENT THROMBOSIS Immunofixation for Urineon 0 08-01-2023 Interpretation Immunofixation (U) [Interp] Comment . [facility] Comment on above: No monoclonality det ected.Performed at: [facility] [address] [facility] [id number] Director: Deshaun Hunter PhD, Phone: [phone] Iron binding capacity [Mass/ volume] in Serum or Plasmaon 08-01-2023 Iron binding capacity [Mass/Vol] 270.0 ug/dL 250.0-450. 0 [facility] Iron saturation [Mass Fracti on] in Serum or Plasmaon 08-01-2023 Iron saturation [Mass fraction] 14.8 % [facility] Ketones Auto test strip (U) [Mass/Vol]on 08-01-2023 Ketones (U) [Mass/Vol] Negative NEGATIVE [facility] - Chemistry and C hemistry - challengeon 08-01-2023 Albumin [Mass/Vol] 2.7 g/dL 3.4-5.0 [facility] ALP [Catalytic activity/Vol] 50 U/L 46-116 [facility] ALT [Catalytic activity/Vol] 18 U/L 14-59 [facility] AST [Catalytic activity/Vol] 12 U/L 15-37 [facility] Bilirubin [Mass/Vol] 0.2 mg/dL 0.2-1.0 [facility] Calcium [Mass/Vol] 8.8 mg/dL 8.5-10.1 [facility] Chloride [Moles/Vol] 105 mmol/L 98-107 [facility] CO2 [Moles/Vol] 32.1 mmol/L 21.0-32.0 [facility] Cobalamin (Vitamin B12) [Mass/Vol] 603.0 pg/mL 193.0-986. 0 [facility] Creatinine [Mass/Vol] 1.80 mg/dL 0.55-1.02 [facility] Ferritin [Mass/Vol] 32.0 ng/mL 8.0-252.0 [facility] GFR/1.73 sq M.predicted MDRD (S/P/Bld) [Vol rate/Area] 33 mL/min/{1.73_m2} >=60 [facility] Glucose [Mass/Vol] 112 mg/dL 74-106 [facility] Iron [Mass/Vol] 40.0 ug/dL 50.0-170.0 [facility] Magnesium [Mass/Vol] 1.9 mg/dL 1.8-2.4 [facility] Potassium [Moles/Vol] 4.3 mmol/L 3.5-5.1 [facility] Protein [Mass/Vol] 6.0 g/dL 6.4-8.2 [facility] Sodium [Moles/Vol] 145 mmol/L 136-145 [facility] Urea nitrogen [Mass/Vol] 33.0 mg/dL 7.0-18.0 [facility] Urea nitrogen/Creatinine [Mass ratio] 18.3 mg/mg [facility] Laboratory - Urinalysison Protein (U) [Mass/Vol] 181.1 mg/dL <=11.9 [facility] Leukocytes [#/volume] correc katy for nucleated erythrocytes in Blood by Automated counon 08-01-2023 WBC corrected for nucl RBC Auto (Bld) [#/Vol] 6.4 10 3/uL 4.0-11.0 [facility] MCH Auto (RBC) [Entitic mass ]on 08-01-2023 MCH (RBC) [Entitic mass] 29.2 pg 26.7-34.0 [facility] MCHC Auto (RBC) [Mass/Vol]on 08-01-2023 MCHC (RBC) [Mass/Vol] 28.9 g/dL 29.9-35.2 [facility] MCV Auto (RBC) [Entitic vol] on 08-01-2023 MCV (RBC) [Entitic vol] 101.1 fL 81.0-99.0 [facility] Myeloperoxidase Ab [Units/vo lume] in Serum by Immunoassayon 08-01-2023 Myeloperoxidase Ab IA Qn (S) <0.2 units 0.0-0.9 [facility] No Panel Informationon 07-31 25-Hydroxy Vitamin D Total 16.6 ng/mL [facility] Comment on above: <20 ng/mL Vit D defi cient20-<30 ng/mL Vit D onnsldxcfieo95-410 ng/mL Vit D sufficient>100 ng/mL Potential Toxicity Folate 13.00 ng/mL 8.60-58.90 [facility] Miscellaneous Test COMMENT . [facility] Comment on above: Test Ordered: [id number] Cryoglobulin, Ql, Serum, RflxCryoglobulin, Ql, Serum, Rflx Comment Reference Range: None detectedNone Detected at 72 hoursThis test was developed and its performance characteristicsdetermined by [employer]. It has not been cleared orapproved by the Food and Drug Administration.Performed at: [facility] [address] [id number] Director: Deshaun Hunter PhD, Phone: [phone] Parathyroid Hormone (Intact) 60 pg/mL 15-65 [facility] Comment on above: Performed at: [employer] [facility] [address] [id number] Director: Deshaun Hunter PhD, Phone: [phone] Perinuclear ANCA (p-ANCA) Antibody <1:20 titer Neg:<1:20 [facility] Comment on above: The presence of posi tive fluorescence exhibiting P-ANCA orC-ANCA patterns alone is not specific for the diagnosis ofWegener's Granulomatosis (WG) or microscopic polyangiitis.Decisions about treatment should not be based solely onANCA IFA results. The International ANCA Group Consensusrecommends follow up testing of positive sera with both HI-3 and MPO-ANCA enzyme immunoassays. As many as 5% serumsamples are positive only by EIA. Ref. AM J Clin Xuauiy3952;111:507-513. Phosphorus Level 3.8 mg/dL 2.6-4.7 [facility] Urine Random Creatinine 27.68 mg/dL 20.00-300. 00 [facility] Platelet mean volume Auto (B ld) [Entitic vol]on 08-01-2023 Platelet mean volume (Bld) [Entitic vol] 10.5 fL 9.5-13.5 [facility] Platelets Auto (Bld) [#/Vol] on 08-01-2023 Platelets (Bld) [#/Vol] 227 10 3/uL 150-450 [facility] Protein Auto test strip (U) [Mass/Vol]on 08-01-2023 Protein (U) [Mass/Vol] 100 mg/dL NEG/TRACE Fi [facility] Proteinase 3 Ab [Units/volum e] in Serum by Immunoassayon 08-01-2023 Proteinase 3 Ab IA Qn (S) <0.2 units 0.0-0.9 [facility] Prothrombin time (PT)on 07-17 PT Coag (PPP) [Time] 24.5 s 9.0-11.6 [facility] RBC Auto (Bld) [#/Vol]on RBC (Bld) [#/Vol] 2.67 10 6/uL 4.20-5.40 [facility] Serum classic neutrophil cyt oplasmic antibody titer by immunofluorescenceon 08-01-2023 Neutrophil cytoplasmic Ab.classic IF (S) [Titer] <1:20 titer Neg:<1:20 [facility] Serum or plasma albumin/glob ulin mass ratioon 08-01-2023 Albumin/Globulin [Mass ratio] 0.8 {ratio} [facility] Serum or plasma anion gap de terminationon 08-01-2023 Anion gap [Moles/Vol] 12.2 mmol/L [facility] Serum or plasma complement C 3 measurement (mass/volume)on 08-01-2023 Complement C3 [Mass/Vol] 140 mg/dL 82-167 [facility] Serum or plasma complement C 4 measurement (mass/volume)on 08-01-2023 Complement C4 [Mass/Vol] 30 mg/dL 12-38 [facility] Comment on above: Performed at: [address] [id number] Director: Deshaun Hunter PhD, Phone: [phone] Specific gravity Auto test s trip (U) [Rel density]on 08-01-2023 Specific gravity (U) [Rel density] CLEAR CLEAR [facility] Urine glucose measurement by test strip (mass/volume)on 08-01-2023 Glucose Test strip (U) [Mass/Vol] Negative NEGATIVE [facility] Urine hemoglobin detection b y automated test stripon 08-01-2023 Hemoglobin Auto test strip Ql (U) LARGE NEGATIVE [facility] Urine nitrite detection by a utomated test stripon 08-01-2023 Nitrite Auto test strip Ql (U) Negative NEGATIVE [facility] Urine protein/creatinine rat ioon 08-01-2023 Protein/Creatinine (U) [Ratio] 6.54 [facility] Urobilinogen Auto test strip (U) [Mass/Vol]on 08-01-2023 Urobilinogen Qn (U) 0.2 {Radha'U}/dL 0.2-1.0 [facility] pH Auto test strip (U)on pH (U) 7.0 [pH] 5.0-9.0 [facility] A1C HEMOGLOBINon 02-19-2023 HbA1c (Bld) [Mass fraction] 5.8 % [employer] [facility] [employer] Other Glucose - FINGER STICKon Glucose [Mass/Vol] 174 mg/dL [facility] [employer] Other HbA1c (Bld) [Mass fraction]o n 02-19-[address] [facility] [employer] Other PROF 14(COMP METB)on 023 Albumin [Mass/Vol] 2.9 g/dL Critically low 3.4-5.0 Th [facility] Comment on above: Performed By: #### C MP #### [facility] [address] [place] [address] Dr. Lamar Lin Albumin/Globulin [Mass ratio] 0.8 {ratio} Normal [facility] Comment on above: Performed By: #### C MP #### [facility] [address] [address] [address] Lamar Lin ALP [Catalytic activity/Vol] 70 U/L Normal 46-116 [facility] Comment on above: Performed By: #### C MP #### [facility] [address] [address] [address] Lamar Lin ALT [Catalytic activity/Vol] 14 U/L Normal 14-59 [facility] Comment on above: Performed By: #### C MP #### [facility] [address] [address] [address] Lamar Lin Anion gap [Moles/Vol] 10.5 mmol/L Normal Th [facility] Comment on above: Performed By: #### C MP #### [facility] [address] [address] [address] Lamar Lin AST [Catalytic activity/Vol] 10 U/L Critically low 15-37 [facility] Comment on above: Performed By: #### C MP #### [facility] [address] [address] [address] Lamar Lin Bilirubin [Mass/Vol] 0.2 mg/dL Normal 0.2-1.0 [facility] Comment on above: Performed By: #### C MP #### [facility] [address] [address] [address] Lamar Lin Calcium [Mass/Vol] 9.4 mg/dL Normal 8.5-10.1 [facility] Comment on above: Performed By: #### C MP #### [facility] [address] [address] [address] Lamar Lin Chloride [Moles/Vol] 104 mmol/L Normal 98-107 [facility] Comment on above: Performed By: #### C MP #### [facility] [address] [address] [address] Lamar Lin CO2 [Moles/Vol] 34.9 mmol/L Critically high 21.0-32.0 [facility] Comment on above: Performed By: #### C MP #### [facility] [address] [address] [address] Lamar Lin Creatinine [Mass/Vol] 0.96 mg/dL Normal 0.55-1.02 [facility] Comment on above: Performed By: #### C MP #### [facility] [address] [address] [address] Lamar Lin EGFR-AF [place] >60 Normal >=60 [facility] Comment on above: Performed By: #### C MP #### [facility] [address] [address] [address] Lamar Lin EGFR-NON AF [place] 56 mL/min/1.73m2 Critically low >=60 [facility] Comment on above: Performed By: #### C MP #### [facility] [address] [address] [address] Lamar Lin Globulin (S) [Mass/Vol] 3.7 g/dL Normal [facility] Comment on above: Performed By: #### C MP #### [facility] [address] [address] [address] Lamar Lin Glucose [Mass/Vol] 132 mg/dL Critically high 74-[address] [facility] Comment on above: Performed By: #### C MP #### [facility] [address] [address] [address] Lamar Lin Potassium [Moles/Vol] 4.4 mmol/L Normal 3.5-5.1 [facility] Comment on above: Performed By: #### C MP #### [facility] [address] [address] [address] Lamar Lin Protein [Mass/Vol] 6.6 g/dL Normal 6.4-8.2 [facility] Comment on above: Performed By: #### C MP #### [facility] [address] [address] [address] Lamar Lin Sodium [Moles/Vol] 145 mmol/L Normal 136-145 [facility] Comment on above: Performed By: #### C MP #### [facility] [address] [address] [address] Lamar Lin Urea nitrogen [Mass/Vol] 28.0 mg/dL Critically high 7.0-18.0 [facility] Comment on above: Performed By: #### C MP #### [facility] [address] [place], [place] [address] Dr. Lamar Lin Urea nitrogen/Creatinine [Mass ratio] 29.2 mg/mg Normal [facility] Comment on above: Performed By: #### C MP #### [facility] [address] [place], [place] [address] Dr. Lamar Lin A1C with Estimated Average G donald 08-19-2022 HbA1c (Bld) [Mass fraction] 6.500 % High 4.3-5.6 % [employer] Other HbA1c (Bld) [Mass fraction] 140 mg/dL [employer] Other Comprehensive Metabolic Pane [facility] 08-19-2022 Albumin [Mass/Vol] 3.852193 g/dL Normal 3.5-5.7 g/dL [employer] Other Albumin/Globulin [Mass ratio] 1.7 {ratio} [employer] Other ALP [Catalytic activity/Vol] 56 U/L Normal 34-104 U/L [employer] Other ALT [Catalytic activity/Vol] 14 U/L Normal 7-52 U/L [employer] Other AST [Catalytic activity/Vol] 15 U/L Normal 13-39 U/L [employer] Other Bilirubin [Mass/Vol] 0.3582953 mg/dL Low 0.3- 1.0 mg/dL [employer] Other Calcium [Mass/Vol] 9.0029485 mg/dL Normal 8.6-10 .3 mg/dL [employer] Other Chloride [Moles/Vol] 103 mmol/L Normal 98-107 mmol/L [employer] Other CO2 [Moles/Vol] 34.22918578 mmol/L High 21.0-3 1.0 mmol/L [employer] Other Creatinine [Mass/Vol] 0.43900314 mg/dL Normal 0. 60-1.20 mg/dL [employer] Other GFR/1.73 sq M.predicted MDRD (S/P/Bld) [Vol rate/Area] mL/min/{1.73_m2} [employer] Other Glucose [Mass/Vol] 156 mg/dL High 70-100 mg/dL [employer] Other Potassium [Moles/Vol] 4.70780280 mmol/L Normal 3 .5-5.1 mmol/L [employer] Other Protein [Mass/Vol] 5.175239 g/dL Low 6.4-8.9 g/dL [employer] Other Sodium [Moles/Vol] 144 mmol/L Normal 136-145 mmol/L [employer] Other Urea nitrogen [Mass/Vol] 24 mg/dL Normal 7-25 mg/dL [employer] Other Comprehensive Metabolic Panel 2.1 g/dL [employer] Other Glucose - FINGER STICKon Glucose [Mass/Vol] 205 mg/dL [employer] Other Lipid Panelon 08-19-2022 Cholesterol [Mass/Vol] 172 mg/dL Normal 140-2 00 mg/dL [employer] Other Cholesterol in HDL [Mass/Vol] 33 mg/dL Low 35-85 mg/dL [employer] Other Cholesterol in LDL Elph Qn 95 mg/dL Normal 0-100 mg/dL [employer] Other Cholesterol.total/Chol esterol in HDL [Mass ratio] 5.2 {ratio} <5.0 [employer] Other Lipid Panel 219 mg/dL High 0-149 mg/dL [employer] Other Lipid Panel 43 mg/dL [facility] [employer] Other [employer] Creat Ratio,Uon Albumin DL <= 20 mg/L (U) [Mass/Vol] mg/dL High 0.0-1.8 [employer] Other Albumin/Creatinine DL <= 20 mg/L (U) [Mass ratio] TNP 0.0-30.0 [facility] [employer] Other Creatinine (U) [Mass/Vol] 52.0038623 mg/dL [employer] [facility] [employer] Other Vitamin B12on 08-19-2022 Cobalamin (Vitamin B12) [Mass/Vol] 345 pg/mL Normal 180-914 pg/mL [employer] Other A1C HEMOGLOBINon 02-27-2022 HbA1c (Bld) [Mass fraction] 6.1 % [facility] [employer] Other Glucose - FINGER STICKon Glucose [Mass/Vol] 159 mg/dL [facility] [employer] Other HbA1c (Bld) [Mass fraction]o n 02-27-[address] [facility] [employer] Other FREE T4on 10-30-2021 Free T4 [Mass/Vol] 1.11 ng/dL Normal 0.76-1.46 [facility] Comment on above: Performed By: #### F T4 #### [facility] [address] [id number] [address] Lamar Lin T4on 10-30-2021 T4 [Mass/Vol] 8.30 ug/dL Normal 4.80-13.90 [facility] Comment on above: Performed By: #### T 4, TSH #### [facility] [address] [address] [address] Lamar Lin TSHon 10-30-2021 TSH 2.475 uIU/mL Normal 0.358-3.74 0 [facility] Comment on above: Performed By: #### T 4, TSH #### [facility] [address] [address] [address] Lamar Lin Glucoseon 05-23-2021 Glucose [Mass/Vol] 167 mg/dL [facility] Other Vital Signs Date Time Vital Sign Value Performing Clinician Facility 11-02-2024 09:18-0400 Body height 152.4 cm Luci Gant DPM Work Phone: [facility] 11-02-2024 09:18-0400 Body mass index (BMI) [Ratio] 39.06 kg/m2 Luci Stalin DPM Work Phone: [facility] 11-02-2024 09:18-0400 Body weight 90.72 kg Luci Stalin DPM Work Phone: [facility] 10-26-2024 10:06-0400 Body height 152.4 cm Anika Henry DISTRIBUTION SALES REPRESENTATIVE-C Work Phone: [facility] 10-26-2024 10:06-0400 Body mass index (BMI) [Ratio] 37.3 kg/m2 Anika Henry DISTRIBUTION SALES REPRESENTATIVE-C Work Phone: [facility] 10-26-2024 10:06-0400 Body weight 86.69 kg Anika Henry DISTRIBUTION SALES REPRESENTATIVE-C Work Phone: [facility] 10-26-2024 10:06-0400 Diastolic blood pressure 51 mm[Hg] Anika Henry DISTRIBUTION SALES REPRESENTATIVE-C Work Phone: [facility] 10-26-2024 10:06-0400 Heart rate 59 /min Anika Henry DISTRIBUTION SALES REPRESENTATIVE-C Work Phone: [facility] 10-26-2024 10:06-0400 Inhaled oxygen flow rate 2 L/min Anika Henry DISTRIBUTION SALES REPRESENTATIVE-C Work Phone: [facility] 10-26-2024 10:06-0400 Respiratory rate 16 /min Anika Henry DISTRIBUTION SALES REPRESENTATIVE-C Work Phone: [facility] 10-26-2024 10:06-0400 SaO2% (BldA) [Mass fraction] 94 % Anika Elaine DISTRIBUTION SALES REPRESENTATIVE-C Work Phone: [facility] 10-26-2024 10:06-0400 Systolic blood pressure 111 mm[Hg] Anika Elaine DISTRIBUTION SALES REPRESENTATIVE-C Work Phone: [facility] 10-05-2024 13:18-0400 Body height 152.4 cm Anika Marsmer DISTRIBUTION SALES REPRESENTATIVE-C Work Phone: [facility] 10-05-2024 13:18-0400 Diastolic blood pressure 75 mm[Hg] Anika Marsmer DISTRIBUTION SALES REPRESENTATIVE-C Work Phone: [facility] 10-05-2024 13:18-0400 Heart rate 64 /min Anika Marsmer DISTRIBUTION SALES REPRESENTATIVE-C Work Phone: [facility] 10-05-2024 13:18-0400 Inhaled oxygen flow rate 2 L/min Anika Marsmer DISTRIBUTION SALES REPRESENTATIVE-C Work Phone: [facility] 10-05-2024 13:18-0400 Respiratory rate 16 /min Anika Elaine DISTRIBUTION SALES REPRESENTATIVE-C Work Phone: [facility] 10-05-2024 13:18-0400 SaO2% (BldA) [Mass fraction] 96 % Anika Marsmer DISTRIBUTION SALES REPRESENTATIVE-C Work Phone: [facility] 10-05-2024 13:18-0400 Systolic blood pressure 155 mm[Hg] Anika Henry DISTRIBUTION SALES REPRESENTATIVE-C Work Phone: [facility] 09-13-2024 10:56-0400 Body height 152.4 cm Anika Marsmer DISTRIBUTION SALES REPRESENTATIVE-C Work Phone: [facility] 09-13-2024 10:56-0400 Body mass index (BMI) [Ratio] 38.5 kg/m2 Anika Marsmer DISTRIBUTION SALES REPRESENTATIVE-C Work Phone: [facility] 09-13-2024 10:56-0400 Body weight 89.41 kg Anika Henry DISTRIBUTION SALES REPRESENTATIVE-C Work Phone: [facility] 09-13-2024 10:56-0400 Diastolic blood pressure 63 mm[Hg] Anika Marsmer DISTRIBUTION SALES REPRESENTATIVE-C Work Phone: [facility] 09-13-2024 10:56-0400 Heart rate 95 /min Anika Henry DISTRIBUTION SALES REPRESENTATIVE-C Work Phone: [facility] 09-13-2024 10:56-0400 Respiratory rate 18 /min Anika Henry DISTRIBUTION SALES REPRESENTATIVE-C Work Phone: [facility] 09-13-2024 10:56-0400 SaO2% (BldA) [Mass fraction] 60 % Anika Henry DISTRIBUTION SALES REPRESENTATIVE-C Work Phone: [facility] 09-13-2024 10:56-0400 Systolic blood pressure 114 mm[Hg] Anika Marsmer DISTRIBUTION SALES REPRESENTATIVE-C Work Phone: [facility] 08-17-2024 14:03-0400 Body height 152.4 cm [facility] 08-17-2024 14:03-0400 Body mass index (BMI) [Ratio] 38.2 kg/m2 [facility] 08-17-2024 14:03-0400 Body weight 88.96 kg [facility] 08-17-2024 14:03-0400 Diastolic blood pressure 70 mm[Hg] [facility] 08-17-2024 14:03-0400 Heart rate 60 /min [facility] 08-17-2024 14:03-0400 Respiratory rate 18 /min [facility] 08-17-2024 14:03-0400 SaO2% (BldA) [Mass fraction] 94 % [facility] 08-17-2024 14:03-0400 Systolic blood pressure 132 mm[Hg] [facility] 08-05-2024 13:03-0400 Body height 165.1 cm Kaity Leija MD [facility] [place] [facility] 08-05-2024 13:03-0400 Body mass index (BMI) [Ratio] 33.15 kg/m2 Kaity Leija MD Work Phone: [facility] 08-05-2024 13:03-0400 Body weight 90.36 kg Kaity Leija MD Work Phone: [facility] 08-05-2024 13:03-0400 Diastolic blood pressure 58 mm[Hg] Kaity Leija MD Work Phone: [facility] 08-05-2024 13:03-0400 Heart rate 59 /min Kaity Leija MD Work Phone: [facility] 08-05-2024 13:03-0400 Systolic blood pressure 116 mm[Hg] Kaity Leija MD Work Phone: [facility] 07-27-2024 13:51-0400 Body height 152.4 cm [facility] 07-27-2024 13:51-0400 Body mass index (BMI) [Ratio] 40.4 kg/m2 [facility] 07-27-2024 13:51-0400 Body weight 93.89 kg [facility] 07-27-2024 13:51-0400 Diastolic blood pressure 64 mm[Hg] [facility] 07-27-2024 13:51-0400 Heart rate 66 /min [facility] 07-27-2024 13:51-0400 Inhaled oxygen flow rate 2 L/min [facility] 07-27-2024 13:51-0400 Respiratory rate 18 /min [facility] 07-27-2024 13:51-0400 SaO2% (BldA) [Mass fraction] 97 % [facility] 07-27-2024 13:51-0400 Systolic blood pressure 115 mm[Hg] [facility] 2024 09:55-0500 Body height 152.4 cm [facility] 2024 09:55-0500 Body mass index (BMI) [Ratio] 42.6 kg/m2 [facility] 2024 09:55-0500 Body temperature 98.2 [degF] [facility] 2024 09:55-0500 Body weight 99.05 kg [facility] 2024 09:55-0500 Diastolic blood pressure 68 mm[Hg] [facility] 2024 09:55-0500 Heart rate 71 /min [facility] 2024 09:55-0500 Inhaled oxygen flow rate 2 L/min [facility] 2024 09:55-0500 Respiratory rate 20 /min [facility] 2024 09:55-0500 SaO2% (BldA) [Mass fraction] 95 % [facility] 2024 09:55-0500 Systolic blood pressure 145 mm[Hg] [facility] 06-17-2024 13:57-0500 Body height 152.4 cm [facility] 06-17-2024 13:57-0500 Body mass index (BMI) [Ratio] 39.6 kg/m2 [facility] 06-17-2024 13:57-0500 Body weight 92.19 kg [facility] 06-17-2024 13:57-0500 Diastolic blood pressure 61 mm[Hg] [facility] 06-17-2024 13:57-0500 Heart rate 66 /min [facility] 06-17-2024 13:57-0500 Respiratory rate 16 /min [facility] 06-17-2024 13:57-0500 SaO2% (BldA) [Mass fraction] 98 % [facility] 06-17-2024 13:57-0500 Systolic blood pressure 118 mm[Hg] [facility] 06-14-2024 13:56-0500 Body height 152.4 cm [facility] 06-14-2024 13:56-0500 Body mass index (BMI) [Ratio] 40.2 kg/m2 [facility] 06-14-2024 13:56-0500 Body weight 93.52 kg [facility] 06-14-2024 13:56-0500 Diastolic blood pressure 79 mm[Hg] [facility] 06-14-2024 13:56-0500 Heart rate 73 /min [facility] 06-14-2024 13:56-0500 Respiratory rate 18 /min [facility] 06-14-2024 13:56-0500 SaO2% (BldA) [Mass fraction] 95 % [facility] 06-14-2024 13:56-0500 Systolic blood pressure 158 mm[Hg] [facility] 06-03-2024 11:34-0500 Body height 152.4 cm [facility] 06-03-2024 11:34-0500 Body mass index (BMI) [Ratio] 39.4 kg/m2 [facility] 06-03-2024 11:34-0500 Body temperature 97 [degF] [facility] 06-03-2024 11:34-0500 Body weight 91.73 kg [facility] 06-03-2024 11:34-0500 Diastolic blood pressure 59 mm[Hg] [facility] 06-03-2024 11:34-0500 Heart rate 72 /min [facility] 06-03-2024 11:34-0500 Respiratory rate 16 /min [facility] 06-03-2024 11:34-0500 SaO2% (BldA) [Mass fraction] 95 % [facility] 06-03-2024 11:34-0500 Systolic blood pressure 140 mm[Hg] [facility] 05-04-2024 11:13-0500 Body height 152.4 cm [facility] 05-04-2024 11:13-0500 Body mass index (BMI) [Ratio] 41.1 kg/m2 [facility] 05-04-2024 11:13-0500 Body temperature 97.6 [degF] [facility] 05-04-2024 11:13-0500 Body weight 95.42 kg [facility] 05-04-2024 11:13-0500 Diastolic blood pressure 68 mm[Hg] [facility] 05-04-2024 11:13-0500 Heart rate 70 /min [facility] 05-04-2024 11:13-0500 Inhaled oxygen flow rate 2 L/min [facility] 05-04-2024 11:13-0500 Respiratory rate 18 /min [facility] 05-04-2024 11:13-0500 SaO2% (BldA) [Mass fraction] 94 % [facility] 05-04-2024 11:13-0500 Systolic blood pressure 143 mm[Hg] [facility] 04-20-2024 13:22-0500 Body temperature 97.5 [degF] [facility] 04-20-2024 13:22-0500 Diastolic blood pressure 60 mm[Hg] [facility] 04-20-2024 13:22-0500 Heart rate 61 /min [facility] 04-20-2024 13:22-0500 Inhaled oxygen flow rate 2 L/min [facility] 04-20-2024 13:22-0500 SaO2% (BldA) [Mass fraction] 96 % [facility] 04-20-2024 13:22-0500 Systolic blood pressure 105 mm[Hg] [facility] 03-16-2024 13:41-0400 Body height 152.4 cm Luci Gant DPM Work Phone: [facility] 03-16-2024 13:41-0400 Body mass index (BMI) [Ratio] 39.06 kg/m2 Luci Gant DPM Work Phone: [facility] 03-16-2024 13:41-0400 Body weight 90.72 kg Luci Gant DPM Work Phone: [facility] 03-02-2024 08:56-0400 Body height 152.4 cm [facility] 03-02-2024 08:56-0400 Body mass index (BMI) [Ratio] 39.4 kg/m2 [facility] 03-02-2024 08:56-0400 Body temperature 97.7 [degF] [facility] 03-02-2024 08:56-0400 Body weight 91.62 kg [facility] 03-02-2024 08:56-0400 Diastolic blood pressure 60 mm[Hg] [facility] 03-02-2024 08:56-0400 Heart rate 63 /min [facility] 03-02-2024 08:56-0400 Inhaled oxygen flow rate 2 L/min [facility] 03-02-2024 08:56-0400 Respiratory rate 18 /min [facility] 03-02-2024 08:56-0400 SaO2% (BldA) [Mass fraction] 97 % [facility] 03-02-2024 08:56-0400 Systolic blood pressure 114 mm[Hg] [facility] 02-10-2024 10:30-0400 Body height 152.4 cm [facility] 02-10-2024 10:30-0400 Body mass index (BMI) [Ratio] 38.7 kg/m2 [facility] 02-10-2024 10:30-0400 Body temperature 97.5 [degF] [facility] 02-10-2024 10:30-0400 Body weight 89.81 kg [facility] 02-10-2024 10:30-0400 Diastolic blood pressure 75 mm[Hg] [facility] 02-10-2024 10:30-0400 Heart rate 70 /min [facility] 02-10-2024 10:30-0400 Inhaled oxygen flow rate 2 L/min [facility] 02-10-2024 10:30-0400 Respiratory rate 18 /min [facility] 02-10-2024 10:30-0400 SaO2% (BldA) [Mass fraction] 97 % [facility] 02-10-2024 10:30-0400 Systolic blood pressure 160 mm[Hg] [facility] 01-27-2024 13:50-0400 Body height 152.4 cm [facility] 01-27-2024 13:50-0400 Body mass index (BMI) [Ratio] 39.6 kg/m2 [facility] 01-27-2024 13:50-0400 Body temperature 98.2 [degF] [facility] 01-27-2024 13:50-0400 Body weight 92.07 kg [facility] 01-27-2024 13:50-0400 Diastolic blood pressure 72 mm[Hg] [facility] 01-27-2024 13:50-0400 Heart rate 72 /min [facility] 01-27-2024 13:50-0400 Inhaled oxygen flow rate 2 L/min [facility] 01-27-2024 13:50-0400 Respiratory rate 18 /min [facility] 01-27-2024 13:50-0400 SaO2% (BldA) [Mass fraction] 98 % [facility] 01-27-2024 13:50-0400 Systolic blood pressure 166 mm[Hg] [facility] 01-13-2024 11:05-0400 Body height 152.4 cm [facility] 01-13-2024 11:05-0400 Body mass index (BMI) [Ratio] 39.6 kg/m2 [facility] 01-13-2024 11:05-0400 Body temperature 97.9 [degF] [facility] 01-13-2024 11:05-0400 Body weight 92 kg [facility] 01-13-2024 11:05-0400 Diastolic blood pressure 70 mm[Hg] [facility] 01-13-2024 11:05-0400 Heart rate 68 /min [facility] 01-13-2024 11:05-0400 Inhaled oxygen flow rate 2 L/min [facility] 01-13-2024 11:05-0400 Respiratory rate 18 /min [facility] 01-13-2024 11:05-0400 SaO2% (BldA) [Mass fraction] 96 % [facility] 01-13-2024 11:05-0400 Systolic blood pressure 128 mm[Hg] [facility] 12-30-2023 13:44-0400 Body height 152.4 cm [facility] 12-30-2023 13:44-0400 Body mass index (BMI) [Ratio] 39.6 kg/m2 [facility] 12-30-2023 13:44-0400 Body temperature 97.6 [degF] [facility] 12-30-2023 13:44-0400 Body weight 92.24 kg [facility] 12-30-2023 13:44-0400 Diastolic blood pressure 68 mm[Hg] [facility] 12-30-2023 13:44-0400 Heart rate 68 /min [facility] 12-30-2023 13:44-0400 Inhaled oxygen flow rate 2 L/min [facility] 12-30-2023 13:44-0400 Respiratory rate 18 /min [facility] 12-30-2023 13:44-0400 SaO2% (BldA) [Mass fraction] 96 % [facility] 12-30-2023 13:44-0400 Systolic blood pressure 131 mm[Hg] [facility] 12-11-2023 11:31-0400 Body height 152.4 cm [facility] 12-11-2023 11:31-0400 Body mass index (BMI) [Ratio] 40.8 kg/m2 [facility] 12-11-2023 11:31-0400 Body temperature 97.1 [degF] [facility] 12-11-2023 11:31-0400 Body weight 94.85 kg [facility] 12-11-2023 11:31-0400 Diastolic blood pressure 60 mm[Hg] [facility] 12-11-2023 11:31-0400 Heart rate 68 /min [facility] 12-11-2023 11:31-0400 Inhaled oxygen flow rate 2 L/min [facility] 12-11-2023 11:31-0400 Respiratory rate 18 /min [facility] 12-11-2023 11:31-0400 SaO2% (BldA) [Mass fraction] 95 % [facility] 12-11-2023 11:31-0400 Systolic blood pressure 130 mm[Hg] [facility] 12-08-2023 10:40-0400 Body height 152.4 cm [facility] 12-08-2023 10:40-0400 Body mass index (BMI) [Ratio] 40.8 kg/m2 [facility] 12-08-2023 10:40-0400 Body weight 94.97 kg [facility] 12-08-2023 10:40-0400 Diastolic blood pressure 61 mm[Hg] [facility] 12-08-2023 10:40-0400 Heart rate 56 /min [facility] 12-08-2023 10:40-0400 Respiratory rate 18 /min [facility] 12-08-2023 10:40-0400 SaO2% (BldA) [Mass fraction] 95 % [facility] 12-08-2023 10:40-0400 Systolic blood pressure 119 mm[Hg] [facility] 11-18-2023 10:03-0400 Body height 152.4 cm [employer]RIBUTION SALES REPRESENTATIVE-C Anika Elaine Work Phone: [facility] 11-18-2023 10:03-0400 Body mass index (BMI) [Ratio] 39.2 kg/m2 [employer]RI[employer] SALES REPRESENTATIVE-C Anika Elaine Work Phone: [facility] 11-18-2023 10:03-0400 Body temperature 98 [degF] DISTRIBUTION SALES REPRESENTATIVE-C Anika Elaine Work Phone: [facility] 11-18-2023 10:03-0400 Body weight 91.22 kg DISTRIBUTION SALES REPRESENTATIVE-C Anika Elaine Work Phone: [facility] 11-18-2023 10:03-0400 Diastolic blood pressure 71 mm[Hg] DISTRIBUTION SALES REPRESENTATIVE-C Anika Elaine Work Phone: [facility] 11-18-2023 10:03-0400 Heart rate 70 /min [employer] SALES REPRESENTATIVE-C Anika Elaine Work Phone: [facility] 11-18-2023 10:03-0400 Inhaled oxygen flow rate 2 L/min [employer]RI[employer] SALES REPRESENTATIVE-C Anika Elaine Work Phone: [facility] 11-18-2023 10:03-0400 Respiratory rate 16 /min [employer]RI[employer]ION SALES REPRESENTATIVE-C Anika Elaine Work Phone: [facility] 11-18-2023 10:03-0400 SaO2% (BldA) [Mass fraction] 94 % [employer]RI[employer] SALES REPRESENTATIVE-C Anika Elaine Work Phone: [facility] 11-18-2023 10:03-0400 Systolic blood pressure 162 mm[Hg] DISTRIBUTION SALES REPRESENTATIVE-C Anikasophy Marsmer Work Phone: [facility] 11-05-2023 14:04-0400 Body height 152.4 cm [employer]RI[employer]ION SALES REPRESENTATIVE-C Anika Elaine Work Phone: [facility] 11-05-2023 14:04-0400 Body mass index (BMI) [Ratio] 39 kg/m2 [employer]RI[employer] SALES REPRESENTATIVE-C Anika Elaine Work Phone: [facility] 11-05-2023 14:04-0400 Body temperature 98.1 [degF] DISTRIBUTION SALES REPRESENTATIVE-C Anikasophy Marsmer Work Phone: [facility] 11-05-2023 14:04-0400 Body weight 90.71 kg DISTRIBUTION SALES REPRESENTATIVE-C Anikasophy Marsmer Work Phone: [facility] 11-05-2023 14:04-0400 Diastolic blood pressure 68 mm[Hg] DISTRIBUTION SALES REPRESENTATIVE-C Anika Elaine Work Phone: [facility] 11-05-2023 14:04-0400 Heart rate 56 /min DISTRI[employer]ION SALES REPRESENTATIVE-C Anikasophy Marsmer Work Phone: [facility] 11-05-2023 14:04-0400 Inhaled oxygen flow rate 2 L/min [employer]RI[employer] SALES REPRESENTATIVE-C Anikasophy Marsmer Work Phone: [facility] 11-05-2023 14:04-0400 Respiratory rate 18 /min DISTRI[employer]ION SALES REPRESENTATIVE-C Anikasophy Marsmer Work Phone: [facility] 11-05-2023 14:04-0400 SaO2% (BldA) [Mass fraction] 92 % DISTRIBUTION SALES REPRESENTATIVE-C Anikasophy Marsmer Work Phone: [facility] 11-05-2023 14:04-0400 Systolic blood pressure 136 mm[Hg] DISTRIBUTION SALES REPRESENTATIVE-C Anika Elaine Work Phone: [facility] 10-15-2023 13:42-0400 Body height 152.4 cm DISTRI[employer]ION SALES REPRESENTATIVE-C Anika Elaine Work Phone: [facility] 10-15-2023 13:42-0400 Body mass index (BMI) [Ratio] 38.7 kg/m2 [employer]RI[employer] SALES REPRESENTATIVE-C Anika Henry Work Phone: [facility] 10-15-2023 13:42-0400 Body temperature 97.6 [degF] [employer]RIBUTION SALES REPRESENTATIVE-C Anika Henry Work Phone: [facility] 10-15-2023 13:42-0400 Body weight 90.03 kg [employer]RI[employer] SALES REPRESENTATIVE-C Anika Henry Work Phone: [facility] 10-15-2023 13:42-0400 Diastolic blood pressure 70 mm[Hg] DISTRI[employer] SALES REPRESENTATIVE-C Anika Henry Work Phone: [facility] 10-15-2023 13:42-0400 Heart rate 60 /min [employer]RI[employer] SALES REPRESENTATIVE-C Anika Henry Work Phone: [facility] 10-15-2023 13:42-0400 Inhaled oxygen flow rate 2 L/min [employer] SALES REPRESENTATIVE-C Anika Henry Work Phone: [facility] 10-15-2023 13:42-0400 Respiratory rate 18 /min [employer]RI[employer] SALES REPRESENTATIVE-C Anika Henry Work Phone: [facility] 10-15-2023 13:42-0400 SaO2% (BldA) [Mass fraction] 97 % [employer]RI[employer] SALES REPRESENTATIVE-C Anika Henry Work Phone: [facility] 10-15-2023 13:42-0400 Systolic blood pressure 143 mm[Hg] DISTRIBUTION SALES REPRESENTATIVE-C Anika Henry Work Phone: [facility] 09-23-2023 09:37-0400 Body height 152.4 cm [employer]RI[employer]ION SALES REPRESENTATIVE-C Anika Henry Work Phone: [facility] 09-23-2023 09:37-0400 Body mass index (BMI) [Ratio] 38.5 kg/m2 [employer]RI[employer] SALES REPRESENTATIVE-C Anika Marsmer Work Phone: [facility] 09-23-2023 09:37-0400 Body temperature 97.9 [degF] DISTRIBUTION SALES REPRESENTATIVE-C Anika Marsmer Work Phone: [facility] 09-23-2023 09:37-0400 Body weight 89.44 kg [employer]RI[employer]ION SALES REPRESENTATIVE-C Anika Elaine Work Phone: [facility] 09-23-2023 09:37-0400 Diastolic blood pressure 72 mm[Hg] [employer]RI[employer] SALES REPRESENTATIVE-C Anika Elaine Work Phone: [facility] 09-23-2023 09:37-0400 Heart rate 67 /min [employer] SALES REPRESENTATIVE-C Anika Elaine Work Phone: [facility] 09-23-2023 09:37-0400 Inhaled oxygen flow rate 2 L/min [employer] SALES REPRESENTATIVE-C Anika Elaine Work Phone: [facility] 09-23-2023 09:37-0400 Respiratory rate 18 /min [employer] SALES REPRESENTATIVE-C Anika Elaine Work Phone: [facility] 09-23-2023 09:37-0400 SaO2% (BldA) [Mass fraction] 97 % [employer] SALES REPRESENTATIVE-C Anika Elaine Work Phone: [facility] 09-23-2023 09:37-0400 Systolic blood pressure 149 mm[Hg] [employer]RI[employer] SALES REPRESENTATIVE-C Anika Elaine Work Phone: [facility] 09-09-2023 14:15-0400 Body height 152.4 cm [employer]RI[employer] SALES REPRESENTATIVE-C Anika Elaine Work Phone: [facility] 09-09-2023 14:15-0400 Body mass index (BMI) [Ratio] 38.9 kg/m2 [employer] SALES REPRESENTATIVE-C Anika Elaine Work Phone: [facility] 09-09-2023 14:15-0400 Body temperature 97.2 [degF] [employer]RI[employer] SALES REPRESENTATIVE-C Anika Elaine Work Phone: [facility] 09-09-2023 14:15-0400 Body weight 90.49 kg [employer]RI[employer] SALES REPRESENTATIVE-C Anika Elaine Work Phone: [facility] 09-09-2023 14:15-0400 Diastolic blood pressure 77 mm[Hg] [employer]RI[employer] SALES REPRESENTATIVE-C Anika Elaine Work Phone: [facility] 09-09-2023 14:15-0400 Heart rate 70 /min [employer] SALES REPRESENTATIVE-C Anika Elaine Work Phone: [facility] 09-09-2023 14:15-0400 Inhaled oxygen flow rate 2 L/min [employer] SALES REPRESENTATIVE-[employer] Anika Elaine Work Phone: [facility] 09-09-2023 14:15-0400 Respiratory rate 18 /min [employer] SALES REPRESENTATIVE-C Anika Elaine Work Phone: [facility] 09-09-2023 14:15-0400 SaO2% (BldA) [Mass fraction] 97 % [employer] SALES REPRESENTATIVE-[employer] Anika Elaine Work Phone: [facility] 09-09-2023 14:15-0400 Systolic blood pressure 147 mm[Hg] [employer] SALES REPRESENTATIVE-C Anika Elaine Work Phone: [facility] 09-01-2023 11:35-0400 Diastolic blood pressure 73 mm[Hg] [employer]RI[employer] SALES REPRESENTATIVE-C Anika Elaine Work Phone: [facility] 09-01-2023 11:35-0400 Heart rate 62 /min [employer] SALES REPRESENTATIVE-C Anika Elaine Work Phone: [facility] 09-01-2023 11:35-0400 Inhaled oxygen flow rate 2 L/min [employer] SALES REPRESENTATIVE-C Anika Elaine Work Phone: [facility] 09-01-2023 11:35-0400 Respiratory rate 18 /min DISTRIBUTION SALES REPRESENTATIVE-C Anika Elaine Work Phone: [facility] 09-01-2023 11:35-0400 SaO2% (BldA) [Mass fraction] 96 % DISTRIBUTION SALES REPRESENTATIVE-C Anika Elaine Work Phone: [facility] 09-01-2023 11:35-0400 Systolic blood pressure 164 mm[Hg] DISTRIBUTION SALES REPRESENTATIVE-C Anika Elaine Work Phone: [facility] 09-01-2023 09:17-0400 Body height 152.4 cm DISTRIBUTION SALES REPRESENTATIVE-C Anika Elaine Work Phone: [facility] 09-01-2023 09:17-0400 Body weight 93.44 kg DISTRIBUTION SALES REPRESENTATIVE-C Anika Henry Work Phone: [facility] 08-20-2023 10:20-0400 Body height 152.4 cm [facility] 08-20-2023 10:20-0400 Body mass index (BMI) [Ratio] 40.2 kg/m2 [facility] 08-20-2023 10:20-0400 Body weight 93.44 kg [facility] 08-20-2023 10:20-0400 Diastolic blood pressure 84 mm[Hg] [facility] 08-20-2023 10:20-0400 Heart rate 73 /min [facility] 08-20-2023 10:20-0400 Inhaled oxygen flow rate 2 L/min [facility] 08-20-2023 10:20-0400 Respiratory rate 18 /min [facility] 08-20-2023 10:20-0400 SaO2% (BldA) [Mass fraction] 94 % [facility] 08-20-2023 10:20-0400 Systolic blood pressure 176 mm[Hg] [facility] 08-13-2023 10:41-0400 Body height 152.4 cm [facility] 08-13-2023 10:41-0400 Body mass index (BMI) [Ratio] 40.1 kg/m2 [facility] 08-13-2023 10:41-0400 Body temperature 97.5 [degF] [facility] 08-13-2023 10:41-0400 Body weight 93.15 kg [facility] 08-13-2023 10:41-0400 Diastolic blood pressure 72 mm[Hg] [facility] 08-13-2023 10:41-0400 Heart rate 77 /min [facility] 08-13-2023 10:41-0400 Inhaled oxygen flow rate 2 L/min [facility] 08-13-2023 10:41-0400 Respiratory rate 20 /min [facility] 08-13-2023 10:41-0400 SaO2% (BldA) [Mass fraction] 95 % [facility] 08-13-2023 10:41-0400 Systolic blood pressure 162 mm[Hg] [facility] 04-22-2023 10:20-0500 Body height 152.4 cm Azwalter Darbys Other [facility] 04-22-2023 10:20-0500 Body mass index (BMI) [Ratio] 39.64 kg/m2 Azwalter Darbys Other [employer] [facility] [employer] Other 04-22-2023 10:20-0500 Body weight 92.08 kg Azwalter Darbys Other [employer] Other 04-22-2023 10:20-0500 Body weight 92.07 kg [facility] 04-22-2023 10:20-0500 Diastolic blood pressure 70 mm[Hg] Rin Darbys Other [facility] 04-22-2023 10:20-0500 Respiratory rate 18 /min Rin Darbys Other [employer] Other 04-22-2023 10:20-0500 SaO2% (BldA) [Mass fraction] 97 % Rin Darbys Other [employer] Other 04-22-2023 10:20-0500 Systolic blood pressure 138 mm[Hg] Aziz Heathers Other [facility] 02-19-2023 09:15-0400 Body height 152.4 cm [employer] Other [employer] Other 02-19-2023 09:15-0400 Body mass index (BMI) [Ratio] 40.21 kg/m2 [employer] Other [employer] Other 02-19-2023 09:15-0400 Body weight 93.4 kg Tondra Mapus Other [employer] Other 02-19-2023 09:15-0400 Diastolic blood pressure 64 mm[Hg] Tondra Mapus Other [employer] Other 02-19-2023 09:15-0400 Respiratory rate 18 /min Tondra Mapus Other [employer] Other 02-19-2023 09:15-0400 SaO2% (BldA) [Mass fraction] 95 % Tondra Mapus Other [employer] Other 02-19-2023 09:15-0400 Systolic blood pressure 129 mm[Hg] Tondra Mapus Other [employer] Other 02-12-2023 09:00-0400 Body height 152.4 cm Tondra Mapus Other [employer] Other 02-12-2023 09:00-0400 Body mass index (BMI) [Ratio] 40.07 kg/m2 Tondra Mapus Other [employer] Other 02-12-2023 09:00-0400 Body weight 93.08 kg Tondra Mapus Other [employer] Other 10-22-2022 10:00-0400 Body height 152.4 cm [employer] Other [employer] Other 10-22-2022 10:00-0400 Body mass index (BMI) [Ratio] 40.23 kg/m2 [employer] Other [employer] Other 10-22-2022 10:00-0400 Body temperature 97.4 [degF] Rin Ramirez Other [employer] Other 10-22-2022 10:00-0400 Body weight 93.44 kg Rin Darbys Other [employer] Other 10-22-2022 10:00-0400 Diastolic blood pressure 78 mm[Hg] Rin Darbys Other [employer] Other 10-22-2022 10:00-0400 Respiratory rate 20 /min Rin Darbys Other [employer] Other 10-22-2022 10:00-0400 SaO2% (BldA) [Mass fraction] 92 % Rin Darbys Other [employer] Other 10-22-2022 10:00-0400 Systolic blood pressure 146 mm[Hg] Rin Darbys Other [employer] Other 08-19-2022 10:15-0400 Body height 152.4 cm Chandrakanta Susannaus Other [employer] Other 08-19-2022 10:15-0400 Body mass index (BMI) [Ratio] 39.82 kg/m2 Tondra Mapus Other [employer] Other 08-19-2022 10:15-0400 Body weight 92.49 kg Tondra Mapus Other [employer] Other 08-19-2022 10:15-0400 Diastolic blood pressure 63 mm[Hg] Tondra Mapus Other [employer] Other 08-19-2022 10:15-0400 Respiratory rate 20 /min Tondra Mapus Other [employer] Other 08-19-2022 10:15-0400 SaO2% (BldA) [Mass fraction] 95 % Tondra Mapus Other [employer] Other 08-19-2022 10:15-0400 Systolic blood pressure 136 mm[Hg] Tondra Mapus Other [employer] Other 02-27-2022 10:15-0400 Body height 152.4 cm Tondra Mapus Other [employer] Other 02-27-2022 10:15-0400 Body mass index (BMI) [Ratio] 41.79 kg/m2 Tondra Mapus Other [employer] Other 02-27-2022 10:15-0400 Body weight 97.07 kg Tondra Mapus Other [employer] Other 02-27-2022 10:15-0400 Diastolic blood pressure 55 mm[Hg] Tondra Mapus Other [employer] Other 02-27-2022 10:15-0400 Respiratory rate 20 /min Tondra Mapus Other [employer] Other 02-27-2022 10:15-0400 SaO2% (BldA) [Mass fraction] 97 % Tondra Mapus Other [employer] Other 02-27-2022 10:15-0400 Systolic blood pressure 130 mm[Hg] Tondra Mapus Other [employer] Other 10-23-2021 11:00-0400 Body height 152.4 cm Rin Darbys Other [employer] Other 10-23-2021 11:00-0400 Body mass index (BMI) [Ratio] 44.05 kg/m2 Rin Darbys Other [employer] Other 10-23-2021 11:00-0400 Body temperature 97.5 [degF] Rin Darbys Other [employer] Other 10-23-2021 11:00-0400 Body weight 102.33 kg Rin Darbys Other [employer] Other 10-23-2021 11:00-0400 Diastolic blood pressure 72 mm[Hg] Rin Darbys Other [employer] Other 10-23-2021 11:00-0400 Respiratory rate 20 /min Rin Darbys Other [employer] Other 10-23-2021 11:00-0400 SaO2% (BldA) [Mass fraction] 94 % Rin Bakhous Other [employer] Other 10-23-2021 11:00-0400 Systolic blood pressure 135 mm[Hg] Aziz Bakhous Other [employer] Other 05-23-2021 10:15-0500 Body height 152.4 cm Tona Mapus Other [employer] Other 05-23-2021 10:15-0500 Body mass index (BMI) [Ratio] 43.25 kg/m2 Tondra Mapus Other [employer] Other 05-23-2021 10:15-0500 Body weight 100.47 kg Tondra Mapus Other [employer] Other 05-23-2021 10:15-0500 Diastolic blood pressure 57 mm[Hg] Tondra Mapus Other [employer] Other 05-23-2021 10:15-0500 Respiratory rate 20 /min Tondra Mapus Other [employer] Other 05-23-2021 10:15-0500 SaO2% (BldA) [Mass fraction] 96 % Tondra Mapus Other [employer] Other 05-23-2021 10:15-0500 Systolic blood pressure 131 mm[Hg] Tondra Mapus Other [employer] Other Encounters Encounter Date Encounter Type Care Provider Facility Start: 11-02-2024 End: 11-02-2024 Bamboo flowsheet Luci Gant DPM Work Phone: [facility] Start: 11-02-2024 End: 11-02-2024 Bamboo flowsheet Luci Gant DPM Work Phone: [facility] Start: 11-02-2024 End: 11-02-2024 Patient encounter procedure Luci Gant DPM Work Phone: [facility] Comment on above: Dermatophytosis of n ail (Primary Dx); Dystrophic nail; Pain around toenail, right foot; Pain around toenail, left foot Start: 11-02-2024 End: 11-02-2024 ambulatory LUCI GANT Not Available Start: 10-27-2024 End: 10-27-2024 Follow-up encounter [facility] Medication Management Comment on above: PAF (paroxysmal atri al fibrillation) ([facility]) (Primary Dx) Start: 10-27-2024 End: 10-27-2024 [facility] Start: 10-26-2024 End: 10-26-2024 ambulatory Anika Henry DISTRIBUTION SALES REPRESENTATIVE-C Work Phone: [facility] Work Phone: Start: 10-26-2024 End: 10-26-2024 Patient encounter procedure Anika Henry DISTRIBUTION SALES REPRESENTATIVE-C Work Phone: [facility] Work Phone: Start: 10-22-2024 Non-patient / Non-visit Anika Henry DISTRIBUTION SALES REPRESENTATIVE-C Work Phone: [facility] Work Phone: Start: 10-20-2024 End: 10-20-2024 Telephone encounter [facility] Med[facility] Work Phone: [facility] - [facility] Medication Management Start: 10-10-2024 End: 10-12-2024 Refill Anita Mccoy MD Work Phone: [facility] Start: 10-05-2024 End: 10-05-2024 Patient encounter procedure Anika Henry DISTRIBUTION SALES REPRESENTATIVE-C Work Phone: [facility] Work Phone: Start: 10-04-2024 End: 10-04-2024 ambulatory Marie Jimenes MD Facility:[facility] Start: 09-29-2024 Non-patient / Non-visit Anika Henry DISTRIBUTION SALES REPRESENTATIVE-C Work Phone: [facility] Work Phone: Start: 09-28-2024 End: 09-28-2024 Follow-up encounter [facility] Medication Management Comment on above: PAF (paroxysmal atri al fibrillation) ([facility]) (Primary Dx) Start: 09-28-2024 End: 09-28-2024 ambulatory [facility] Start: 09-13-2024 End: 09-13-2024 ambulatory Anika Henry DISTRIBUTION SALES REPRESENTATIVE-C Work Phone: [facility] Work Phone: Start: 09-13-2024 End: 09-13-2024 Patient encounter procedure Anika Henry DISTRIBUTION SALES REPRESENTATIVE-C Work Phone: [facility] Phys[facility] Work Phone: Start: 09-10-2024 End: 09-10-2024 Follow-up encounter [facility] Medication Management Comment on above: PAF (paroxysmal atri al fibrillation) ([facility]) (Primary Dx) Start: 09-10-2024 End: 09-10-2024 ambulatory [facility] Start: 09-09-2024 End: 09-10-2024 Refill Concha [facility] RN [facility] Comment on above: Med Refill Start: 09-08-2024 End: 09-10-2024 Refill Ashley SOLORZANO Work Phone: [facility] Comment on above: Med Refill Start: 09-02-2024 Non-patient / Non-visit Anika Henry DISTRIBUTION SALES REPRESENTATIVE-C Work Phone: [facility] Phys[facility] Work Phone: Start: 09-01-2024 End: 09-01-2024 Patient encounter procedure Anika Henry DISTRIBUTION SALES REPRESENTATIVE-C Work Phone: [facility] [address] Work Phone: Start: 09-01-2024 End: 09-01-2024 ambulatory Anika Henry Facility:[facility] Start: 08-25-2024 End: 08-25-2024 ambulatory [facility] Start: 08-24-2024 End: 08-24-2024 Follow-up encounter [facility] Medication Management Comment on above: PAF (paroxysmal atri al fibrillation) ([facility]) (Primary Dx) Start: 08-24-2024 End: 08-24-2024 ambulatory [facility] Start: 08-23-2024 End: 08-23-2024 Refill Concha Michele RN [facility] Comment on above: Med Refill Start: 08-17-2024 End: 08-17-2024 ambulatory [facility] Work Phone: Start: 08-17-2024 End: 08-17-2024 Patient encounter procedure [facility] Work Phone: Start: 08-05-2024 End: 08-05-2024 Office outpatient visit 25 minutes Kaity Leija MD Work Phone: [facility] Comment on above: PAF (paroxysmal atri al fibrillation) ([facility]) (Primary Dx); 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; 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 Start: 08-04-2024 End: 08-04-2024 Telephone encounter Enedelia Livingston CMA [facility] Start: 08-04-2024 Non-patient / Non-visit [facility] Phys[facility] Work Phone: Start: 07-27-2024 End: 07-27-2024 ambulatory [facility] Work Phone: Start: 07-27-2024 End: 07-27-2024 Patient encounter procedure [facility] Work Phone: Start: 07-20-2024 Non-patient / Non-visit [facility] Work Phone: Start: 07-14-2024 End: 07-14-2024 Follow-up encounter [facility] 1 [facility] Medication Management Comment on above: PAF (paroxysmal atri al fibrillation) ([facility]) (Primary Dx) Start: 07-14-2024 End: 07-14-2024 ambulatory [facility] MEDICATION [facility] Start: 2024 End: 2024 ambulatory [facility] Work Phone: Start: 2024 End: 2024 Patient encounter procedure [facility] Work Phone: Start: 06-30-2024 End: 06-30-2024 Bamboo flowsheet Luci Gant DPM Work Phone: [facility] Start: 06-30-2024 End: 06-30-2024 Bamboo flowsheet Luci Gant DPM Work Phone: [facility] Start: 06-30-2024 End: 06-30-2024 Patient encounter procedure Luci Gant DPM Work Phone: [facility] Comment on above: Dermatophytosis of n ail (Primary Dx); Dystrophic nail; Pain around toenail, right foot; Pain around toenail, left foot Start: 06-30-2024 End: 06-30-2024 ambulatory LUCI GANT Not Available Start: 06-17-2024 End: 06-17-2024 ambulatory [facility] Work Phone: Start: 06-17-2024 End: 06-17-2024 Patient encounter procedure [facility] Work Phone: Start: 06-16-2024 End: 06-16-2024 Follow-up encounter [facility] Medication Therapy Management Comment on above: PAF (paroxysmal atri al fibrillation) ([facility]) (Primary Dx) Start: 06-16-2024 End: 06-16-[address] [facility]LVAREZ [facility] Start: 06-14-2024 End: 06-14-2024 ambulatory [facility] Work Phone: Start: 06-14-2024 End: 06-14-2024 Patient encounter procedure [facility] Work Phone: Start: 06-10-2024 Non-patient / Non-visit [facility] Work Phone: Start: 06-03-2024 End: 06-03-2024 ambulatory [facility] Work Phone: Start: 06-03-2024 End: 06-03-2024 Patient encounter procedure [facility] Work Phone: Start: 05-25-2024 Non-patient / Non-visit [facility] Work Phone: Start: 05-20-2024 End: 05-20-2024 Orders Only Alicia Galvan RN [facility] Comment on above: SOB (shortness of br eath) (Primary Dx); Abnormal CXR Start: 05-17-2024 End: 05-17-2024 Follow-up encounter [facility] 1 [facility] Medication Therapy Management Comment on above: PAF (paroxysmal atri al fibrillation) ([facility]) (Primary Dx) Start: 05-17-2024 End: 05-17-2024 [facility] Start: 05-14-2024 End: 05-14-[address] [facility] Start: 05-10-2024 End: 05-10-2024 ambulatory ANITA MCCOY [facility] Start: 05-07-2024 End: 05-10-2024 Refill Tr Jimenez AQUARIST-RETOUCHER Work Phone: [facility] Comment on above: Med Refill Start: 05-05-2024 End: 05-10-2024 Refill Tr Jimenez AQUARIST-RETOUCHER [facility] Comment on above: Med Refill Start: 05-04-2024 End: 05-04-2024 Patient encounter procedure [facility] Work Phone: Start: 05-03-2024 End: 05-03-2024 ambulatory [facility] Start: 04-28-2024 Non-patient / Non-visit [facility] Work Phone: Start: 04-20-2024 End: 04-20-2024 Patient encounter procedure [facility] Work Phone: Start: 04-14-2024 End: 04-14-2024 [facility] Start: 04-13-2024 Non-patient / Non-visit [facility] Phys[facility] Work Phone: Start: 04-07-2024 End: 04-07-[address] [facility] Start: 03-30-2024 End: 03-30-2024 ambulatory [facility] Work Phone: Start: 03-30-2024 End: 03-30-2024 Patient encounter procedure [facility] Work Phone: Start: 03-23-2024 End: 03-23-2024 ambulatory [facility] Work Phone: Start: 03-23-2024 End: 03-23-2024 Patient encounter procedure [facility] Work Phone: Start: 03-17-2024 Non-patient / Non-visit [facility] Work Phone: Start: 03-16-2024 End: 03-16-2024 Bamboo flowsheet Luci Gant DPM Work Phone: [facility] Start: 03-16-2024 End: 03-16-2024 Bamboo flowsheet Luci Gant DPM Work Phone: [facility] Start: 03-16-2024 End: 03-16-2024 ambulatory LUCI GANT Not Available Start: 03-16-2024 End: 03-16-2024 Patient encounter procedure Luci Gant DPM Work Phone: [facility] Comment on above: Dermatophytosis of n ail (Primary Dx); Dystrophic nail; Pain around toenail, right foot; Pain around toenail, left foot Start: 03-03-2024 End: 03-03-2024 ambulatory [facility] Start: 03-02-2024 End: 03-02-2024 ambulatory [facility] Work Phone: Start: 03-02-2024 End: 03-02-2024 Patient encounter procedure [facility] Work Phone: Start: 02-23-2024 Non-patient / Non-visit [facility] Work Phone: Start: 02-10-2024 End: 02-10-2024 ambulatory [facility] Work Phone: Start: 02-10-2024 End: 02-10-2024 Patient encounter procedure [facility] Work Phone: Start: 02-03-2024 Non-patient / Non-visit [facility] Work Phone: Start: 01-28-2024 End: 01-28-2024 ambulatory [facility] Start: 01-27-2024 End: 01-27-2024 ambulatory [facility] Work Phone: Start: 01-27-2024 End: 01-27-2024 Patient encounter procedure [facility] Nephrology [facility] Work Phone: Start: 01-23-2024 Non-patient / Non-visit [facility] Phys[facility] Work Phone: Start: 01-20-2024 Non-patient / Non-visit [facility] Phys[facility] Work Phone: Start: 01-13-2024 End: 01-13-2024 ambulatory [facility] Work Phone: Start: 01-13-2024 End: 01-13-2024 Patient encounter procedure [facility] Nephrology Work Phone: Start: 01-05-2024 Non-patient / Non-visit [facility] Work Phone: Start: 12-31-2023 End: 12-31-2023 [facility] Start: 12-30-2023 End: 12-30-2023 ambulatory [facility] Work Phone: Start: 12-30-2023 End: 12-30-2023 Patient encounter procedure [facility] Work Phone: Start: 12-11-2023 End: 12-11-2023 ambulatory LUCI GANT Not Available Start: 12-11-2023 End: 12-11-2023 ambulatory [facility] Work Phone: Start: 12-11-2023 End: 12-11-2023 Patient encounter procedure [facility] Nephrology [facility] Work Phone: Start: 12-08-2023 End: 12-08-2023 ambulatory [facility] Work Phone: Start: 12-08-2023 End: 12-08-2023 Patient encounter procedure [facility] Work Phone: Start: 12-03-2023 End: 12-03-[address] [facility] Start: 11-27-2023 Non-patient / Non-visit [facility] Phys[facility] Work Phone: Start: 11-18-2023 End: 11-18-2023 ambulatory DISTRIBUTION SALES REPRESENTATIVE-C Anika Deepa Elaine Work Phone: [facility] Work Phone: Start: 11-18-2023 End: 11-18-2023 Patient encounter procedure DISTRIBUTION SALES REPRESENTATIVE-C Anika Elaine Work Phone: [facility] Physician [facility] Nephrology Work Phone: Start: 11-13-2023 Non-patient / Non-visit DISTRIBUTION SALES REPRESENTATIVE-C P mellissa Elaine Work Phone: [facility] Work Phone: Start: 11-12-2023 End: 11-12-[address] [facility] Start: 11-05-2023 End: 11-05-2023 ambulatory DISTRIBUTION SALES REPRESENTATIVE-C Anika Deepa Elaine Work Phone: [facility] Work Phone: Start: 11-05-2023 End: 11-05-2023 Patient encounter procedure DISTRIBUTION SALES REPRESENTATIVE-C Anika Elaine Work Phone: [facility] Physician [facility] Nephrology Work Phone: Start: 10-30-2023 Non-patient / Non-visit DISTRIBUTION SALES REPRESENTATIVE-C P mellissa Elaine Work Phone: [facility] Work Phone: Start: 10-27-2023 End: 10-27-2023 ambulatory ANITA Manoj MCCOY [facility] Start: 10-15-2023 End: 10-15-2023 ambulatory DISTRIBUTION SALES REPRESENTATIVE-C Anika Deepa Elaine Work Phone: [facility] Work Phone: Start: 10-15-2023 End: 10-15-2023 Patient encounter procedure DISTRIBUTION SALES REPRESENTATIVE-C Anikasophy Marsmer Work Phone: [facility] Nephrology Work Phone: Start: 10-07-2023 Non-patient / Non-visit DISTRIBUTION SALES REPRESENTATIVE-C P mellissa Elaine Work Phone: [facility] Physician [facility] Work Phone: Start: 09-23-2023 End: 09-23-2023 ambulatory DISTRIBUTION SALES REPRESENTATIVE-C Anika Deepa Elaine Work Phone: [facility] Work Phone: Start: 09-23-2023 End: 09-23-2023 Patient encounter procedure DISTRIBUTION SALES REPRESENTATIVE-C Anikasophy Marsmer Work Phone: [facility] Physician [facility] Nephrology Work Phone: Start: 09-16-2023 Non-patient / Non-visit DISTRIBUTION SALES REPRESENTATIVE-C P mellissa Elaine Work Phone: [facility] Work Phone: Start: 09-09-2023 End: 09-09-2023 ambulatory DISTRIBUTION SALES REPRESENTATIVE-C Anika Deepa Elaine Work Phone: [facility] Work Phone: Start: 09-09-2023 End: 09-09-2023 Patient encounter procedure DISTRIBUTION SALES REPRESENTATIVE-C Anika Elaine Work Phone: [facility] Nephrology Work Phone: Start: 09-01-2023 End: 09-01-2023 Admission to same day surgery center DISTRIBUTION SALES REPRESENTATIVE-C Anika Elaine Work Phone: [facility] [place] Work Phone: Start: 09-01-2023 End: 09-01-2023 ambulatory DISTRIBUTION SALES REPRESENTATIVE-C Anika Marsmer Work Phone: [facility] Work Phone: Start: 08-20-2023 End: 08-20-2023 ambulatory [facility] Work Phone: Start: 08-20-2023 End: 08-20-2023 Patient encounter procedure [facility] Work Phone: Start: 08-13-2023 End: 08-13-2023 ambulatory [facility] Work Phone: Start: 08-13-2023 End: 08-13-2023 Patient encounter procedure [facility] Nephrology Work Phone: Start: 08-05-2023 Non-patient / Non-visit [facility]ician [facility] Work Phone: Start: 08-01-2023 Non-patient / Non-visit [facility] Work Phone: Start: 06-09-2023 End: 06-09-2023 ambulatory Tondra Susannaus Other [facility] [employer] Other Start: 06-09-2023 Telephone encounter Tonfay Lin [facility] Start: 06-03-2023 End: 06-03-2023 ambulatory Azwalter Aguilerasilvias Other [employer] Other Start: 06-03-2023 Telephone encounter Azwalter Aguilerasilvias [facility] Start: 05-27-2023 End: 05-27-2023 ambulatory Tondra Mapus Other [place] [employer] Other Start: 05-27-2023 Telephone encounter Tondra Susannaus [facility] Start: 04-23-2023 End: 04-23-2023 ambulatory Aziz Bakhous Other [employer] Other Start: 04-23-2023 Telephone encounter Azwalter Bakhous [facility] Start: 04-22-2023 End: 04-22-2023 ambulatory Aziz Bakhous Other [employer] Other Start: 04-22-2023 Office outpatient vi sit 25 minutes Aziz Bakhous [facility] Start: 04-22-2023 End: 04-22-2023 Patient encounter procedure [facility] Work Phone: Start: 04-21-2023 End: 04-21-2023 ambulatory Aziz Bakhous Other [employer] Other Start: 04-21-2023 Telephone encounter Azwalter Bakhous [facility] Start: 02-19-2023 (DM) Diabetes Tondra Mapus [facility] Start: 02-19-2023 End: 02-19-2023 ambulatory Tondra Mapus Other [employer] Other Start: 02-12-2023 End: 02-12-2023 ambulatory Tondra Mapus Other [employer] Other Start: 02-12-2023 Nursing evaluation o f patient and report Tondra Mapus [facility] Start: 01-24-2023 End: 01-24-2023 ambulatory Tondra Mapus Other [employer] Other Start: 01-24-2023 Telephone encounter Tondra Mapus [facility] Start: 10-30-2022 End: 10-30-2022 ambulatory Tondra Mapus Other [employer] Other Start: 10-30-2022 Telephone encounter Tondra Mapus [facility] Start: 10-22-2022 End: 10-22-2022 ambulatory Aziz Baksilvias Other [employer] Other Start: 10-22-2022 Office outpatient vi sit 25 minutes Aziz Bakhous [facility] Start: 10-16-2022 ambulatory ANIKASOPHY MARSMER Facility: [facility] Start: 08-20-2022 End: 08-20-2022 ambulatory Tondra Mapus Other [employer] Other Start: 08-20-2022 Telephone encounter Tondra Mapus [facility] Start: 08-19-2022 (DM) Diabetes Tondra Mapus [facility] Start: 08-19-2022 End: 08-19-2022 ambulatory Tondra Mapus Other [employer] Other Start: 08-02-2022 End: 08-02-2022 ambulatory Tondra Mapus Other [employer] Other Start: 08-02-2022 Telephone encounter Tondra Mapus [facility] Start: 05-30-2022 End: 05-30-2022 ambulatory Tondra Mapus Other [employer] Other Start: 05-30-2022 Telephone encounter Tondra Mapus [facility] Start: 05-01-2022 End: 05-01-2022 ambulatory Tondra Mapus Other [employer] Other Start: 05-01-2022 Telephone encounter Tondra Mapus [facility] Start: 04-01-2022 End: 04-01-2022 ambulatory Tondra Mapus Other [employer] Other Start: 04-01-2022 Telephone encounter Tondra Mapus [facility] Start: 02-27-2022 (DM) Diabetes Tondra Mapus [facility] Start: 02-27-2022 End: 02-27-2022 ambulatory Tondra Mapus Other [employer] Other Start: 01-28-2022 End: 01-28-2022 ambulatory Becca Michael Other [employer] Other Start: 01-28-2022 Telephone encounter Becca Michael [facility] Start: 01-09-2022 End: 01-09-2022 ambulatory Tondra Mapus Other [employer] Other Start: 01-09-2022 Telephone encounter Tondra Mapus [facility] Start: 12-31-2021 End: 12-31-2021 ambulatory Tondra Mapus Other [employer] Other Start: 12-31-2021 Telephone encounter Tondra Mapus [facility] Start: 12-17-2021 End: 12-17-2021 ambulatory Tondra Mapus Other [employer] Other Start: 12-17-2021 Telephone encounter Tondra Mapus [facility] Start: 11-25-2021 End: 11-25-2021 ambulatory Tondra Mapus Other [employer] Other Start: 11-25-2021 Telephone encounter Tondra Mapus [facility] Start: 11-02-2021 ([facility] INJ) [facility] Injection Marixa Fitt [facility] Start: 11-02-2021 End: 11-02-2021 ambulatory Marixa Fitt Other [employer] Other Start: 10-30-2021 End: 10-31-2021 ambulatory ANIKA HENRY Facility:[facility] Start: 10-26-2021 End: 10-26-2021 ambulatory Tondra Mapus Other [employer] Other Start: 10-26-2021 Telephone encounter Tondra Mapus [facility] Start: 10-23-2021 End: 10-23-2021 ambulatory Aziz Bakhous Other [employer] Other Start: 10-23-2021 Office outpatient vi sit 15 minutes Aziz Bakhous [facility] Start: 10-22-2021 End: 10-22-2021 ambulatory Tondra Mapus Other [employer] Other Start: 10-22-2021 Telephone encounter Tondra Mapus [facility] Start: 09-10-2021 End: 09-10-2021 ambulatory Tondra Mapus Other [employer] Other Start: 09-10-2021 Telephone encounter Tondra Mapus [facility] Start: 05-23-2021 (DM) Diabetes Tondra Mapus [facility] Start: 05-23-2021 End: 05-23-2021 ambulatory Tondra Mapus Other [employer] Other Procedures Date Procedure Procedure Detail Performing Clinician Start: 10-27-2024 Prothrombin time [facility] Work Phone: Start: 09-28-2024 Prothrombin time [facility] Work Phone: Start: 09-10-2024 Prothrombin time [facility] Work Phone: Start: 09-01-2024 CT of abdomen and pe lvis without contrast Anika Henry DISTRIBUTION SALES REPRESENTATIVE-C Work Phone: Start: 08-24-2024 Prothrombin time [facility] [...] Service Work Phone: Start: 09-01-2023 Needle biopsy DISTRIBUTION SALES REPRESENTATIVE-C Charity Tapia Work Phone: Start: 05-09-2023 Adult depression scr eening assessment Tr Jimenez A[employer]ARIST[employer]OUCH[employer] Work Phone: Start: 02-14-2014 Colonoscopy Tr calvo [employer] Work Phone: Plan of Treatment Date Care Activity Detail Author Start: 08-05-2025 Tobacco Screening Tobacco Screening [facility] Start: 05-14-2025 Tobacco Screening Tobacco Screening [facility] Start: 03-07-2025 End: 03-07-2025 Patient encounter procedure 03/07/2025 2:15 PM EDT Procedure Visit [facility] [address] [place] [address] Luci Gant DPM [address] [place], [place] [id number] [facility] Start: 01-17-2025 Influenza vaccination Influenza Vacc ine [facility] Start: 11-16-2024 End: 11-16-2024 Follow-up encounter 11/16/2024 9:45 AM EDT Follow Up Anticoagulation [facility] Medication Management [address] [place] [address] [facility] Start: 11-15-2024 End: 11-15-2024 Patient encounter procedure 11/15/2024 2:15 PM EDT Office Visit [facility] [address] [place] [id number] Anita Mccoy MD [address] [place] [address] [facility] Start: 11-02-2024 End: 11-02-2024 Patient encounter procedure 11/02/2024 9:15 AM EDT Procedure Visit [facility] [address] [facility] [place] [address] Luci Gant DPM [address] [place], [place] [id number] Arrived [facility] Comment on above: Arrived Start: 10-26-2024 Tobacco Screening Tobacco Screening [facility] Start: 10-19-2024 End: 10-19-2024 Follow-up encounter 10/19/2024 1:45 PM EDT Follow Up Anticoagulation [facility] Medication Management [address] [place] [address] [facility] Start: 10-01-2024 COVID-19 Vaccine ( season) COVID-19 Vaccine () [facility] Start: 09-28-2024 End: 09-28-2024 Follow-up encounter 09/28/2024 2:00 PM EDT Follow Up Anticoagulation [facility] Medication Management [address] [place] [address] [facility] Start: 09-13-2024 Patient referral [facility] Work Phone: Start: 09-10-2024 End: 09-10-2024 Follow-up encounter 09/10/2024 1:00 PM EDT Follow Up Anticoagulation [facility] Medication Management [address] [place] [address] [facility] Start: 08-24-2024 End: 08-24-2024 Follow-up encounter 08/24/2024 3:00 PM EDT Follow Up Anticoagulation [facility] Medication Management [address] [place] [address] [facility] Start: 08-05-2024 End: 08-05-2024 Patient encounter procedure [facility] Comment on above: Arrived Start: 08-05-2024 End: 08-05-2024 Follow-up encounter 08/05/2024 12:45 PM EDT Follow Up Anticoagulation [facility] Medication Management [address] [place] [address] [facility] Start: 07-14-2024 End: 07-14-2024 Follow-up encounter 07/14/2024 1:15 PM EST Follow Up Anticoagulation [facility] Medication Therapy Management [address] [place] [address] [facility] Start: 06-30-2024 End: 06-30-2024 Patient encounter procedure 06/30/2024 1:30 PM EST Procedure Visit [facility] [address] [place] [phone] Luci Gant DPM [address] [place] [place] [id number] Arrived [facility] Comment on above: Arrived Start: 06-16-2024 End: 06-16-2024 Follow-up encounter 06/16/2024 1:00 PM EST Follow Up Anticoagulation [facility] Medication Therapy Management [address] [place] [address] [facility] Therapy [facility] Start: 05-20-2024 End: 05-20-2025 CT Chest WO contrast CT chest without contrast Imaging Routine SOB (shortness of breath) Abnormal CXR Expected: 05/20/2024, Expires: 05/20/2025 [employer] Phone: Comment on above: Expected: 05/20/2024 , Expires: 05/20/2025 Start: 05-17-2024 End: 05-17-2024 Follow-up encounter 05/17/2024 2:15 PM EST Follow Up Anticoagulation [facility] Medication Therapy Management [address] [place] [address] [facility] Therapy Management Start: 05-10-2024 End: 05-10-2025 XR Chest PA and Lateral X-ray chest 2 views Imaging Routine 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 (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 Expected: 05/10/2024, Expires: 05/10/2025 [employer] Phone: Comment on above: Expected: 05/10/2024 , Expires: 05/10/2025 Start: 05-09-2024 Depression Screening Depression Scre ening [facility] Start: 01-18-2024 Influenza vaccination Influenza Vacc ine (#1) [facility] Start: 09-01-2023 [facility] Start: 09-01-2023 CT guided biopsy [facility] Start: 09-01-[address] guided biopsy [facility] Start: 02-14-2017 Screening for malign ant neoplasm of colon [facility] Start: 2005 Fall Risk Screening Fall Risk Screen ing [facility] Start: 1990 Administration of varicella zoster vaccine Zoster (Shingles) Vaccine (1 of 2) [facility] Start: 1959 DTaP,Tdap and Td Vaccines (1 - Tdap) DTaP,Tdap and Td Vaccines (1 - Tdap) [employer] aPTT in Platelet poo r plasma by Coagulation assay [facility] CT Abdomen and Pelvi s WO contrast [facility] CT guided biopsy [facility] Patient Education [facility] Work Phone: Patient referral [facility] Work Phone: POCT EKG POCT EKG ECG Rou chacorta 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 (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 08/05/2024 1:14 PM EDT [facility] Work Phone: Renal function 2000 panel - Serum or Plasma [facility] Renal function 1999 panel - Serum or Plasma [facility] Renal function 2000 panel - Serum or Plasma [facility] Renal function 2000 panel - Serum or Plasma [facility] Renal function 2000 panel - Serum or Plasma [facility] Renal function 2000 panel - Serum or Plasma [facility] Renal function 2000 panel - Serum or Plasma [facility] Renal function 2000 panel - Serum or Plasma [facility] Renal function 2000 panel - Serum or Plasma [facility] Renal function 2000 panel - Serum or Plasma [facility] Renal function 2000 panel - Serum or Plasma [facility] Renal function 2000 panel - Serum or Plasma [facility] Renal function 2000 panel - Serum or Plasma [facility] Renal function 2000 panel - Serum or Plasma [facility] Immunizations Immunization Date Immunization Notes Care Provider Fa cility 11-16-2024 influenza virus vacc ine, unspecified formulation Luci Gant DPM Work Phone: [facility] 02-19-2023 ABRYSVO - Respirator y syncytial virus (RSV), vaccine, bivalent, protein subunit RSV prefusion F, diluent reconstituted, 0.5 mL, PF Luci Gant DPM Work Phone: [facility] 02-19-2023 Influenza, Seasonal, Quadrivalent, Adjuvanted Luci Gant DPM Work Phone: [facility] 02-19-2023 SARS-COV-2 (COVID-19 ) vaccine, mRNA, spike protein, LNP, PF, anthony-sucrose, 30 mcg/0.3 mL Luci Gant DPM Work Phone: [facility] 02-19-2023 influenza virus vacc ine, unspecified formulation Lucirobert Gant DPM Work Phone: [facility] 03-11-2022 influenza virus vacc ine, unspecified formulation Luci Rus DPM Work Phone: [facility] 05-12-2021 influenza virus vacc ine, unspecified formulation Luci Gant DPM Work Phone: [facility] 03-12-2021 Influenza, High-dose Seasonal, Quadrivalent, Preservative Free Luci Gant DPM Work Phone: [facility] 08-04-2020 COVID-19 Vaccine Cricket ssen - Documentation Purposes Only Alvarofay Mullins Other [facility] 02-09-2020 Influenza, High-dose Seasonal, Quadrivalent, Preservative Free Luci Gant DPM Work Phone: [facility] 02-01-2020 influenza virus vacc ine, unspecified formulation Luci Gant DPM Work Phone: [facility] 01-21-2018 influenza, high dose seasonal, preservative-free Luci Gant DPM Work Phone: [facility] 06-19-2017 pneumococcal conjuga te vaccine, 13 valent Luci Gant DPM Work Phone: [facility] 03-19-2017 influenza virus vacc ine, unspecified formulation Luci Gant DPM Work Phone: [facility] 03-19-2016 seasonal influenza, intradermal, preservative free Luci Gant DPM Work Phone: [facility] 02-06-2016 influenza, seasonal, injectable, preservative free Luci Gant DPM Work Phone: [facility] 03-31-2015 pneumococcal conjuga te vaccine, 13 valent Luci Rusher DPM Work Phone: [facility] 03-28-2015 influenza, seasonal, injectable Tondra Mapus Other [facility] 03-19-2015 pneumococcal polysaccharide vaccine, 23 valent Luci Rusher DPM Work Phone: [facility] 02-14-2015 influenza, seasonal, injectable Luci Rus DPM Work Phone: [facility] 03-31-2014 influenza, seasonal, injectable Luci Rusher DPM Work Phone: [facility] 03-04-2012 influenza virus vacc ine, whole virus Luci Gant DPM Work Phone: [facility] 03-04-2011 influenza virus vacc ine, whole virus Luci Gant DPM Work Phone: [facility] Payers Date Payer Category Payer Self-pay [id number] 2024 Unknown 2021 Medicare (Managed Care) [employer] Member Subscriber Plan / Payer (Effective 2021-Present) Name: Margie Martínez Relation to Subscriber: Self Name: Margie Martínez Payer ID: Not on file Group ID: [id number] Type: Not on file Address: [facility] [id number] [place] [id number] 2015 Medicare HMO [facility] Member Subscriber Plan / Payer (Effective 2015-Present) Name: Margie Martínez Relation to Subscriber: Self Name: Margie Martínez Payer ID: [id number] (NAIC) Group ID: [id number] Type: Not on file Address: [facility] [address] [place] [id number] 1959 Medicare [id number] 2.16840.1.368422.19 1940 Unknown [id number] 2.16840.1.575115.3.579. 2.593 1940 Unknown [id number] 2.16840.1.974567.3.579. 2.593 1940 Unknown [id number] 2.16.840.1.798365.3.579. 2.1286 1940 Unknown [id number] 2.16840.1.010912.3.579. 2.1286 1940 Unknown [id number] 2.16.840.1.213387.3.579. 2.196 1940 Unknown [id number] 2.16.840.1.758467.3.579. 2.1286 1940 Unknown [id number] 2.16.840.1.704866.3.579. 2.1286 1940 Unknown [id number] 2.16.840.1.665461.3.579. 2.1286 1940 Unknown [id number] 2.16.840.1.039874.3.579. 2.1286 1940 Unknown [id number] 2.16840.1.097697.3.579. 2.1285 1940 Unknown [id number] 2.16.840.1.819476.3.579. 2.128 1940 Unknown [id number] 2.16840.1.763225.3.579. 2.1285 1940 Unknown [id number] 2.16840.1.047272.3.579. 2.128 1940 Unknown [id number] 2.0.1.698819.3.579. 2.1285 1940 Unknown [id number] 2.840.1.604350.3.579. 2.1285 1940 Unknown [id number] 2.0.1.772359.3.579. 2.1285 1940 Unknown [id number] 2.840.1.729869.3.579. 2.1285 1940 Unknown [id number] 2.0.1.077357.3.579. 2.1285 1940 Unknown [id number] 2.840.1.994066.3.579. 2.1285 1940 Unknown [id number] 2.840.1.518736.3.579. 2.1285 1940 Unknown [id number] 2.840.1.662989.3.579. 2.1285 1940 Unknown [id number] 2.840.1.082646.3.579. 2.1285 1940 Unknown [id number] 2.16840.1.229442.3.579. 2.1285 1940 Unknown [id number] 2.840.1.940304.3.579. 2.1286 1940 Unknown [id number] 2.16.840.1.700161.3.579. 2.1286 1940 Unknown [id number] 2.16.840.1.721260.3.579. 2.1286 1940 Unknown [id number] 2.16.840.1.447536.3.579. 2.1286 1940 Unknown [id number] 2.16.840.1.153316.3.579. 2.1259 1940 Unknown [id number] 2.16.840.1.241542.3.579. 2.1259 1940 Unknown [id number] 2.16.840.1.569187.3.579. 2.1259 1940 Unknown [id number] 2.16.840.1.520070.3.579. 2.1259 Unknown Regular Auto/Liability [id number] Unknown [id number] 2.16.840.1.475864.3.579. 2.531 Social History Date Type Detail Facility Unknown if ever smoked [facility] Other Start: 12-11-2023 End: 03-16-2024 Sex Assigned At [facility] [employer] Other Start: 12-10-2020 End: 11-20-2022 Tobacco smoking status NJIS Never smoked tobacco (finding) [facility] Start: 1940 Sex Assigned At Female F [facility] Start: 03-11-2022 End: 11-20-2022 Tobacco use and exposure Smokeless tobacco non-user [facility] Start: 12-11-2023 End: 11-02-2024 Alcoholic beverage intake Ex-drinker (finding) [facility] Start: 12-11-2023 End: 03-16-2024 History of Social function [facility] Start: 1940 Sex assigned at Not on file N [facility] Start: 12-22-2014 End: 03-30-2024 Sex Female (finding) [facility] Start: 10-27-2023 End: 08-05-2024 Alcoholic beverage intake Current non-drinker of alcohol (finding) [facility] How often to you hav e a drink containing alcohol? Never [facility] How many standard drinks containing alcohol do you have on a typical day? Patient does not drink [facility] Medical Equipment Procedure Code Equipment Code Equipment Origin al Text Equipment Identifier Dates Start: 03-12-2017 Goals Date Patient Goal Desired Activity /State Personal health goal Comment on above: Formatting of this n ote might be different from the original. Evaluation of progress towards goal: return home self care with hsb support Clinical Notes 06-04-2020 to 11-02-2024 ZOILA Leo - 11/02/2024 9:15 AM Christiana Freedman, [facility] - 10/27/2024 11:15 AM EDTTelephone Encounter - Charlene Zuniga - 10/20/2024 8:08 AM Jaime Schumacher, [facility] - 09/28/2024 2:00 PM EDT Note Date & Type Note Facility 11-02-2024 History of Present illness Narrative Images from the original note were not included. Subjective Patient ID: Margie Martínez is a 84 y.o. female who presents for Nail care (Margie Martínez is a 84 y.o. female who presents for DM Foot Care. PCP: Chester SALAS 06/16/24, A1C: 5.4, BS: 88, SS: 7.5-8). HPI Chief complaint: Thickened, discolored [...] O2 cannula in place. Accompanied by her son. Vascular: DP 1/4 bilateral. PT 1/4 bilateral. CFT brisk all digits. Symmetrical non-pitting edema bilateral ankles; with lipedema changes of the lower extremities. Neurologic: tactile and light touch sensation intact. Dermatologic: Skin turgor is good. Bilateral great toes: DSO/pincer toenail deformity, without lunula involvement; toenail dystrophy, thickening, elongation, discoloration, crumbly texture, the distal margins are incurvated/cryptotic, keratotic, tender, non-inflamed, without drainage. Digits 2, 3, 5 bilateral: Toenail dystrophy, thickening, elongation, discoloration, crumbly texture, clinical mycosis, without drainage. Relative sparing 4th [...] Luci Gant DPM documented in this encounter [facility] 10-27-2024 History of Present illness Narrative 15 minute nger-zw-gvka follow-up anticoagulation appointment. INR performed in office per protocol. INR 2.2 (goal range: 2.0-3.0). Patient reports: Taking warfarin dosing as documented. Missed or extra doses of warfarin: No Changes to medications: Yes Took Zpak and Cefdinir last couple weeks d/t URI Pt will be seeing today and thinks will be put on another ABX Changes to lifestyle (diet / alcohol / smoking / activity): No Recent emergency department visit / hospitalization / health changes / new contraindication to current anticoagulant: Yes Pt has had a cold/URI the last couple weeks. Still having symptoms, will be seeing Dr again today Signs/symptoms of bruising/bleeding or clotting or any intolerable adverse events: No Upcoming procedures: No Anticoagulant prescription needed: No Seen referring provider in the last year Duration of therapy reviewed Assessment: INR is therapeutic despite pt dealing with a cold/URI the last couple weeks. No dose change today. Wanted to see pt in 2 weeks d/t URI, but pt declined and we settled for 3 weeks Plan: Patient instructed to increase to warfarin 1 mg MWF and 1.5 mg AOD. Check INR in 3 week(s). Patient verbalizes understanding of anticoagulant dosing instructions and information discussed. Dosing regimen, counseling, and follow-up appointment were provided to the patient. Patient reminded to call with questions or any medication changes. Patient instructed to seek medical attention if any major bleeding/bleeding that persists or worsens. Doron Freedman RPH 10/27/24 1116 documented in this encounter [facility] 10-20-2024 Miscellaneous Notes The patient was a no show 10/19/24. Food And Beverage Intern KENYA requesting patient call back to schedule another appointment. documented in this encounter [facility] 10-20-2024 Telephone encounter Note The patient was a no show 10/19/24. Food And Beverage Intern KENYA requesting patient call back to schedule another appointment. [facility] 09-28-2024 History of Present illness Narrative 15 minute vsoi-gz-glke follow-up anticoagulation appointment. INR performed in office per protocol. INR 1.9 (goal range: 2.0-3.0). Patient reports: Taking warfarin dosing as documented. Missed or extra doses of warfarin: No Changes to medications: No Changes to lifestyle (diet / alcohol / smoking / activity): No Recent emergency department visit / hospitalization / health changes / new contraindication to current anticoagulant: No Signs/symptoms of bruising/bleeding or clotting or any intolerable adverse events: YES Increased bruising Upcoming procedures: No Anticoagulant prescription needed: No Seen referring provider in the last year Duration of therapy reviewed Assessment: INR is slightly low following 12%. We will switch to 1 mg tabs and increase 3% Plan: Patient instructed to increase to warfarin 1 mg MWF and 1.5 mg AOD. Check INR in 3 week(s). Patient verbalizes understanding of anticoagulant dosing instructions and information discussed. Dosing regimen, counseling, and follow-up appointment were provided to the patient. Patient reminded to call with questions or any medication changes. Patient instructed to seek medical attention if any major bleeding/bleeding that persists or worsens. Alie [facility] 09/28/24 1417 documented in this encounter [facility] 09-10-2024 History of Present illness Narrative 15 minute wwgl-gr-wkzo follow-up anticoagulation appointment. INR performed in office per protocol. INR 3.1 (goal range: 2.0-3.0). Patient reports: Taking warfarin dosing as documented. Missed or extra doses of warfarin: No Changes to medications: No Changes to lifestyle (diet / alcohol / smoking / activity): YES Appetite remains low Recent emergency department visit / hospitalization / health changes / new contraindication to current anticoagulant: No Signs/symptoms of bruising/bleeding or clotting or any intolerable adverse events: YES Upcoming procedures: No Anticoagulant prescription needed: YES- Alice. Send 1 mg to change tab size for more exact dosing. Seen referring provider in the last year Duration of therapy reviewed Assessment: INR remains elevated. We will reduce weekly dose additional 12.%. New order for 1 mg tabs sent to pharmacy for more precise dosing. Patient to pick these up and we will transition at next OV Plan: Patient instructed to decrease to warfarin 1.25 mg daily. Check INR in 2.5 week(s). Patient verbalizes understanding of anticoagulant dosing instructions and information discussed. Dosing regimen, counseling, and follow-up appointment were provided to the patient. Patient reminded to call with questions or any medication changes. Patient instructed to seek medical attention if any major bleeding/bleeding that persists or worsens. Alie [facility] 09/10/24 1302 documented in this encounter [facility] 09-09-2024 Miscellaneous Notes Last OV 08/05/24 Last lipids 08/25/24.slm documented in this encounter [facility] 09-09-2024 Telephone encounter Note Last OV 08/05/24 Last lipids 08/25/24.slm [facility] 09-08-2024 Miscellaneous Notes LIZETH 08/05/24 Lipid Profile 08/25/24 documented in this encounter [facility] 09-08-2024 Telephone encounter Note LIZETH 08/05/24 Lipid Profile 08/25/24 [facility] 09-01-2024 Radiology Diagnostic study note [facility] [place] [address] CT Scan Report Signed Patient: Margie Martínez MR#: [id number] : 1940 Acct:[id number] Age/Sex: 84 / F ADM Date: 5 Loc: [facility] Room: Type: [facility] Attending Dr: Rin Ramirez MD Copies to: Rin Ramirez MD~ Ordering Provider: Rin Ramirez MD Date of Service: 09/01/24 CT/CT abdomen pelvis wo con: M54.9 - Dorsalgia, unspecified CT ABDOMEN AND PELVIS WITHOUT INTRAVENOUS CONTRAST: CLINICAL HISTORY: Back pain COMPARISON: None TECHNIQUE: Spiral images were obtained through the abdomen and pelvis without intravenous contrast. This CT exam was performed using [...] Urias Jr., D.O.09/01/2024 10:59 AM Dictation Location: [place] [address] Transcribed By: [facility] 09/01/24 1059 Dictated By: Kj Urias Jr, DO 09/01/24 1056 Signed By: 09/01/24 1059 [facility] 08-24-2024 History of Present illness Narrative 15 minute ijse-fk-cxqz follow-up anticoagulation appointment. INR performed in office [...] RPH 08/24/24 1504 documented in this encounter [facility] 08-23-2024 Miscellaneous Notes Last OV 08/05/24 EKG 08/05/24 CXR 05/11/24 Pt having labs drawn tomorrow.slm documented in this encounter [facility] 08-23-2024 Telephone encounter Note Last OV 08/05/24 EKG 08/05/24 CXR 05/11/24 Pt having labs drawn tomorrow.slm [facility] 08-17-2024 Evaluation note Diagnosis Onset Date Resolution Anemia of renal disease acute A l 2024 1:57pm Anemia of renal disease acute A pril 2024 10:16am Back pain acute September 13 10:16am Chronic kidney disease, stage IV (severe) acute September 13 10:16am Edema acute September 13 10:16am Fibrillary glomerulonephritis acute September 13, 2 025 10:16am Hyperkalemia acute September 13, 2024 10:16am Hyperparathyroidism acute September 13, 2024 10:16am Hypertensive chronic kidney disease with stage 1 through stage 4 chronic ki acute September 13, 2024 10:16am Type 2 diabetes mellitus with diabetic chronic kidney disease acute September 13, 2024 10:16am Anemia of renal disease acute M ay 2024 1:04pm Back pain acute October 05, 2024 1:04pm Chronic kidney disease, stage IV (severe) acute October 05, 2024 1:04pm Edema acute October 05, 2024 1:04pm Fibrillary glomerulonephritis acute October 05 1:04pm Hyperkalemia acute October 05 1:04pm Hyperparathyroidism acute September 172024 1:04pm Hypertensive chronic kidney disease with stage 1 through stage 4 chronic ki acute September 172024 1:04pm Type 2 diabetes mellitus with diabetic chronic kidney disease acute October 05, 2024 1:04pm Anemia of renal disease acute J 2024 9:53am Back pain acute October 26 9:53am Chronic kidney disease, stage IV (severe) acute October 26 9:53am Edema acute October 26 9:53am Fibrillary glomerulonephritis acute October 26 9:53am Hyperkalemia acute October 26, 9:53am Hyperparathyroidism acute October 26, 2024 9:53am Hypertensive chronic kidney disease with stage 1 through stage 4 chronic ki acute October 26, 2024 9:53am Type 2 diabetes mellitus with diabetic chronic kidney disease acute October 26, 2024 9:53am [facility] Work Phone: 1(960) 550-999003-20-2025 History of Present illness Narrative* Kaity Leija MD - 08/05/2024 1:15 PM EDT Margie Martínez Date of visit: 08/05/2024 Date of : 1940 Age: 84 y.o. 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 Take with meals. 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 IMPRESSIONS/PLAN 1. 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 Paroxysmal 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 on anticoagulation 2. [...] RASHAD MERCHANT Referring Physician: RASHAD Cabrera [address] [place] [address] [facility] History of Present illness Narrative* Alie Schumacher, [facility] - 08/05/2024 12:45 PM EDT 15 minute pzdw-ny-cvcl follow-up anticoagulation appointment. INR performed in office [...] then decrease weekly dose to 2.5 mg Fri/Thurs and 1.25 mg AOD. Check INR in 2.5 week(s). Patient verbalizes understanding of anticoagulant dosing instructions and information discussed. Dosing regimen, counseling, and follow-up appointment were provided to the patient. Patient reminded to call with questions or any medication changes. Patient instructed to seek medical attention if anymajor bleeding/bleeding that persists or worsens. Alie Schumacher [facility] 08/05/24 1252 [facility] Miscellaneous Notes* Telephone Encounter - Enedelia Livingston CMA - 08/04/2024 8:53 AM EDT Left message for patient to remind them to bring their most current medication list with them to their appointment. documented [facility] Telephone encounter Note* Telephone Encounter - Enedelia Livingston CMA - 08/04/2024 8:53 AM EDT Left message for patient to remind them to bring their most current medication list with them to their appointment. [facility]02-26-2025 History of Present illness Narrative* Alie Schumacher RP - 07/14/2024 1:15 PM EST 15 minute rlpt-au-hmnz follow-up anticoagulation appointment. INR performed in office [...] mg 07/14, then resume 2/5 mg Sun/Tue/Thurs and1.25 mg AOD Check INR in 3 week(s). Patient verbalizes understanding of anticoagulant dosing instructions and information discussed. Dosing regimen, counseling, and follow-up appointment were provided to the patient. Patient reminded to call with questions or any medication changes. Patient instructed to seek medical attention if anymajor bleeding/bleeding that persists or worsens. Alie Sch[facility]acher [facility] 07/14/24 1320 [facility] History of Present illness Narrative* Luci Gant, DPM - 06/30/2024 1:30 PM EST Images from the original note were not [...] understanding. Luci Gant DPM documented in this encounterLee's Summit [id number] Instructions* Patient Instructions* Luci Gant DPM - 06/30/2024 1:30 PM EST As noted documented in this [facility]01-30-2025 Evaluation note* Diagnosis Onset Date Resolution Status Admit Date Anemia acute June 17, 2024 1:50pm Chronic [...] 1:45pm Back pain acute August 17 1:57pm Anemia of renal disease acute A [...] kidney disease acute September 13, 2024 10:16am [facility] Work Phone: 1(625) 820-445601-29-2025 NoteXR CHEST 2 VWS Procedure: Chest x-ray performed Number of views:2 History:Atrial fibrillation Comparison:05/14/2024 Findings: The heart and lungs show no acute findings, and the mediastinum and yusef are grossly negative . The pulmonary arteries remain prominent. The cardiac silhouette remains enlarged. Impression: 1. No acute change. Finalized by Jacek Gordillo MD on 06/16/2024 3:22 [facility] 06-16-2024 History of Present illness Narrative* Alie Schumacher, [facility] - 06/16/2024 1:00 PM EST 15 minute syyb-zj-zozg follow-up anticoagulation appointment. INR performed in office [...] Schumacher RPH 06/16/24 1310 documented in [facility] Evaluation note* Diagnosis Onset Date Resolution Status Admit Date BMI 40.0-44.9, adult acute 2024 1:49pm Diabetes [...] 1:45pm Back pain acute August 17 1:57pm [facility] Work Phone: 1(453) 719-936001-16-2025 Evaluation note* Diagnosis Onset Date Resolution Status Admit Date Anemia of renal disease acute J anuary [...] 1:45pm Back pain acute August 17 1:57pm [facility] Work Phone: 1(216) 761-400601-02-2025 History of Present illness Narrative* Alicia Galvan RN - 05/20/2024 9:16 AM EST CXR discussed with patient, per KW pt to have CT chest. Pt agreeable, all questions answered documented in this encounterMcCullough-Hyde Memorial HospitalNelbee [facility] [id number] History of Present illness Narrative* Alie Schumacher, [facility] - 05/17/2024 2:15 PM EST 15 minute tcaj-bd-gxod follow-up anticoagulation appointment. INR performed in office [...] Schumacher RPH 05/17/24 1412 documented in [facility]24 NoteXR CHEST 2 VWS History: Shortness of breath Procedure: 2 view PA and Lateral chest radiograph. Comparison: 05/09/2023 Findings: Prominent central pulmonary arteries. Mild interstitial edema. Stable cardiac silhouette.No no pneumothorax. No focal consolidation or pleural effusions. IMPRESSION: Mild interstitial edema. Finalized by Luci Power MD on 05/14/2024 12:18 [facility] 05-07-2024 Miscellaneous Notes* Telephone Encounter - Briana Reeves RN - 05/07/2024 5:41 AM EST OV 07/30/23 Updated labs needed, letter was already mailed 04/20/24. 07/30/23 EKG 05/09/23 CXR 04/07/24 PFT EYE exam ? documented in this [facility]12-20-2024 Telephone encounter Note* Telephone Encounter - Briana Reeves RN - 05/07/2024 5:41 AM EST OV 07/30/23 Updated labs needed, letter was already mailed 04/20/24. 07/30/23 EKG 05/09/23 CXR 04/07/24 PFT EYE exam ? [facility]12-18-2024 Miscellaneous Notes* Telephone Encounter - Briana Reeves RN - 05/05/2024 6:02 PM EST OV 07/30/23 Updated labs needed, letter was already mailed 04/20/24. 07/30/23 EKG 05/09/23 CXR 04/07/24 PFT EYE exam ? documented in [facility] Telephone encounter Note* Telephone Encounter - Briana Reeves RN - 05/05/2024 6:02 PM EST OV 07/30/23 Updated labs needed, letter was already mailed 04/20/24. 07/30/23 EKG 05/09/23 CXR 04/07/24 PFT EYE exam ? [facility]12-17-2024 Evaluation note* Diagnosis Onset Date Resolution [...] kidney disease acute July 27, 2024 1:45pm [facility] Work Phone: 1(945) 189-269712-03-2024 Evaluation note* Diagnosis Onset Date Resolution Status [...] di abetes mellitus acute June 03 11:32am [facility] Work Phone: 1(235) 111-107912-03-2024 Evaluation note* Diagnosis Onset Date Resolution Status [...] stag e IV (severe) acute May 04, 11:08am 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 [...] 2024 1:49pm Hyperlipidemia acute June 142024 1:49pm [facility] Work Phone: 1(821) 342-975212-03-2024 Evaluation note* Diagnosis Onset Date Resolution Status Admit Date Anemia acute April 20, 2024 1:01pm Chronic kidney disease, stag e IV (severe) acute April 20 1:01pm Edema acute April 20, 2024 1:01pm 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, 2024 1:01pm Hyperkalemia april 1:01pm Hyperparathyroidism acute Dece2023 1:01pm Hypertensive chronic [...] acute June 14 1:49pm HTN (hypertension) acute y 2024 1:49pm Hyperlipidemia acute June 142024 1:49pm Anemia acute June 17, 2024 1:50pm 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 Luci Gant DPM documented in this encounterLee's Summit HospitalLvmcowiply94-29-2850 Instructions* Patient Instructions* Luci Gant DPM - 03/16/2024 1:30 PM EDT As noted documented in this encounterLee's Summit [id number] Evaluation note* Diagnosis Onset Date Resolution Status Admit Date Anemia of renal disease acute A ugust 2023 10:53am Stage 3b chronic kidney dise ase (CKD) acute January 12 10:53am Anemia acute January 1:47pm Edema acute January 1:47pm Fibrillary glomerulonephritis acute January 27, 2024 1:47pm Hyperkalemia acute January 262023 1:47pm Hyperparathyroidism acute Septe mb2023 1:47pm Hypertensive chronic kidney disease with stage 1 through stage 4 chronic ki acute January 1:47pm Stage 3b chronic kidney dise ase (CKD) acute January 27, 2024 1:47pm Type 2 diabetes mellitus wit h diabetic chronic kidney disease acute January 27, 2024 1:47pm Anemia acute January 2:10pm Anemia of renal disease acute S eptember 2023 2:10pm Stage 3b chronic kidney dise ase [...] e IV (severe) acute March 23 1:58pm [facility] Work Phone: 1(650) 938-999801-16-2024 Evaluation note* Encounter Date Diagnosis Assessment Notes Treatment Notes Treatment Clinical Notes May, Edema (ICD-10 - R60.9) [facility] Other 12-06-2023 Evaluation note* Encounter Date Diagnosis Assessment Notes Treatment Notes Treatment Clinical Notes Apr, Nephritis (ICD-10 - N05.9) [facility] Other 12-05-2023 Evaluation note* Encounter Date Diagnosis [...] check iron, folate and VB12 storage studies [facility] Other 12-04-2023 Evaluation note* Encounter Date Diagnosis Assessment Notes Treatment Notes Treatment Clinical Notes Apr, Edema (ICD-10 - R60.9) [facility] Other 10-04-2023 Evaluation note* Encounter Date Diagnosis [...] hypertension material was printed on arb Feb, senior living current use of insulin (ICD-10 - Z79.4) Feb, Vitamin B 12 deficiency (ICD-10 - E53.8) 09/08 b12 345 at target Feb, Albuminuria (ICD-10 - R80.9) Protein, urine material was printed Reviewed importance of glucose/bp control to prevent further nephropathy. Keep f/u with nephrology Feb, BMI 40.0-44.9, adult (ICD-10 - Z68.41) [facility] Other 09-27-2023 Evaluation note* Encounter Date Diagnosis [...] a computer on the screen. Pt contacted [employer] for reader replacement. Pt also brought in new reader. New reader set up with pt. Instructed pt to send old reader back to [employer]. Pt states she will send old reader [...] spent on education by Rangel CANTU, RN [facility] Other 06-06-2023 Evaluation note* Encounter Date Diagnosis [...] On Bumex for volume management Avoid NSAIDs [facility] Other 04-03-2023 Evaluation note* Encounter Date Diagnosis Assessment Notes Treatment Notes Treatment Clinical Notes Aug, Dietary counseling and surveillance (ICD-10 - Z71.3) Maintaining a healthful weight material was printed see above Aug, Type 2 diabetes mellitus (ICD-10 - E11.9) Type 2 diabetes material was printed 1. Controlled, Type 2 diabetes with A1c 6.5%. 2. Blood glucose levels stable. According to Monetate 2 cgm download 08/06/2022-08/19/2022 Avg glucose 129. [...] hypertension material was printed on arb Aug, senior living current use of insulin (ICD-10 - Z79.4) Aug, Vitamin B 12 deficiency (ICD-10 - E53.8) 09/08 b12 345 at target Aug, Albuminuria (ICD-10 - R80.9) Protein, urine material was printed Reviewed importance of glucose/bp control to prevent further nephropathy. 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.4) [...] E11.649) Hypoglycemia material was printed see above [facility] Other 09-12-2022 Evaluation note* Encounter Date Diagnosis Assessment Notes Treatment Notes Treatment Clinical Notes Jan, Edema (ICD-10 - R60.9) [facility] Other 08-24-2022 Evaluation note* Encounter Date Diagnosis Assessment Notes Treatment Notes Treatment Clinical Notes Dec, Type 2 diabetes mellitus with diabetic chronic kidney disease (ICD-10 - E11.22) Dec, Type 2 diabetes mellitus (ICD-10 - E11.9) [facility] Other 06-17-2022 Evaluation note* Encounter Date Diagnosis Assessment Notes Treatment Notes Treatment Clinical Notes Oct, Vitamin B 12 deficiency (ICD-10 - E53.8) [facility] Other 06-07-2022 Evaluation note* Encounter Date Diagnosis [...] arthritis and sleep apnea has been addressed. 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.4) [...] E11.649) Hypoglycemia material was printed see above [facility] Other 01-17-2021 History general Narrative - Reported* [...] History SEE ABOVE Hospitalization History COPD 07/08 [facility] Other Evalunnogr noteNo InformationNort [employer] Other evaluation noteNo assessment information available [facility] Work Phone: evalutevok note* Diagnosis Onset Date Resolution Status Anemia acute BMI 50.0-59.9, adult acute Edema acute Hyperlipidemia acute [id number] acute Stage 3b chronic kidney disease (CKD) acute Type 2 diabetes mellitus wit h diabetic chronic kidney disease acute [facility] Work Phone: Evaluation note* Diagnosis Onset Date Resolution Status Anemia acute BMI 50.0-59.9, adult acute Edema acute Hyperlipidemia acute [id number] acute Stage 3b chronic kidney disease (CKD) acute Type 2 diabetes mellitus wit h diabetic chronic kidney disease acute Diabetes acute Dietary counseling and surveillance acute HTN (hypertension) acute Hyperlipidemia acute Vitamin B 12 deficiency acut e [facility] Work Phone: Evaluation note* Diagnosis Onset Date Resolution Status Anemia acute BMI 50.0-59.9, adult acute Edema acute Hyperlipidemia acute [id number] acute Stage 3b chronic kidney disease (CKD) acute Type 2 diabetes mellitus wit h diabetic chronic kidney disease acute BMI 40.0-44.9, adult acute Diabetes acute Dietary counseling and surveillance acute HTN (hypertension) acute Hyperlipidemia acute Vitamin B 12 deficiency acut e [facility] Work Phone: Evaluation note* Diagnosis Onset Date Resolution Status Anemia acute BMI 50.0-59.9, adult acute Edema acute Hyperlipidemia acute [id number] acute Stage 3b chronic kidney disease (CKD) acute Type 2 diabetes mellitus wit h diabetic chronic kidney disease acute BMI 40.0-44.9, adult acute Diabetes acute Dietary counseling and surveillance acute HTN (hypertension) acute Hyperlipidemia acute Vitamin B 12 deficiency acut e Anemia acute Edema acute Fibrillary glomerulonephritis acute Hyperparathyroidism acute [id number] acute Stage 3b chronic kidney disease (CKD) acute Type 2 diabetes mellitus wit h diabetic chronic kidney disease acute [facility] Work Phone: Evaluation note* Diagnosis Onset Date Resolution Status Anemia acute BMI 50.0-59.9, adult acute Edema acute Hyperlipidemia acute [id number] acute Stage 3b chronic kidney disease (CKD) acute Type 2 diabetes mellitus wit h diabetic chronic kidney disease acute BMI 40.0-44.9, adult acute Diabetes acute Dietary counseling and surveillance acute HTN (hypertension) acute Hyperlipidemia acute Vitamin B 12 deficiency acut e Anemia acute Edema acute Fibrillary glomerulonephritis acute Hyperparathyroidism acute [id number] acute Stage 3b chronic kidney disease (CKD) acute Type 2 diabetes mellitus wit h diabetic chronic kidney disease acute Anemia acute Edema acute Fibrillary glomerulonephritis acute Hyperparathyroidism acute [id number] acute Stage 3b chronic kidney disease (CKD) acute Type 2 diabetes mellitus wit h diabetic chronic kidney disease acute [facility] Work Phone: Evaluation note* Diagnosis Onset Date Resolution Status Anemia acute BMI 50.0-59.9, adult acute Edema acute Hyperlipidemia acute [id number] acute Stage 3b chronic kidney disease (CKD) acute Type 2 diabetes mellitus wit h diabetic chronic kidney disease acute BMI 40.0-44.9, adult acute Diabetes acute Dietary counseling and surveillance acute HTN (hypertension) acute Hyperlipidemia acute Vitamin B 12 deficiency acut e Anemia acute Edema acute Fibrillary glomerulonephritis acute Hyperparathyroidism acute [id number] acute Stage 3b chronic kidney disease (CKD) acute Type 2 diabetes mellitus wit h diabetic chronic kidney disease acute Anemia acute Edema acute Fibrillary glomerulonephritis acute Hyperparathyroidism acute [id number] acute Stage 3b chronic kidney disease (CKD) acute Type 2 diabetes mellitus wit h diabetic chronic kidney disease acute Anemia acute Edema acute Fibrillary glomerulonephritis acute Hyperparathyroidism acute [id number] acute Stage 3b chronic kidney disease (CKD) acute Type 2 diabetes mellitus wit h diabetic chronic kidney disease acute [facility] Work Phone: Evaluation note* Diagnosis Onset Date Resolution Status Anemia acute BMI 50.0-59.9, adult acute Edema acute Hyperlipidemia acute [id number] acute Stage 3b chronic kidney disease (CKD) acute Type 2 diabetes mellitus wit h diabetic chronic kidney disease acute BMI 40.0-44.9, adult acute Diabetes acute Dietary counseling and surveillance acute HTN (hypertension) acute Hyperlipidemia acute Vitamin B 12 deficiency acut e Anemia acute Edema acute Fibrillary glomerulonephritis acute Hyperparathyroidism acute [id number] acute Stage 3b chronic kidney disease (CKD) acute Type 2 diabetes mellitus wit h diabetic chronic kidney disease acute Anemia acute Edema acute Fibrillary glomerulonephritis acute Hyperparathyroidism acute [id number] acute Stage 3b chronic kidney disease (CKD) acute Type 2 diabetes mellitus wit h diabetic chronic kidney disease acute Anemia acute Edema acute Fibrillary glomerulonephritis acute Hyperparathyroidism acute [id number] acute Stage 3b chronic kidney disease (CKD) acute Type 2 diabetes mellitus wit h diabetic chronic kidney disease acute Anemia acute Edema acute Fibrillary glomerulonephritis acute Hyperkalemia acute Hyperparathyroidism acute [id number] acute Stage 3b chronic kidney disease (CKD) acute Type 2 diabetes mellitus wit h diabetic chronic kidney disease acute [facility] Work Phone: Evaluation note* Diagnosis Onset Date Resolution Status BMI 40.0-44.9, adult acute Diabetes acute Dietary counseling and surveillance acute HTN (hypertension) acute Hyperlipidemia acute Vitamin B 12 deficiency acut e Anemia acute Edema acute Fibrillary glomerulonephritis acute Hyperparathyroidism acute [id number] acute Stage 3b chronic kidney disease (CKD) acute Type 2 diabetes mellitus wit h diabetic chronic kidney disease acute Anemia acute Edema acute Fibrillary glomerulonephritis acute Hyperparathyroidism acute [id number] acute Stage 3b chronic kidney disease (CKD) acute Type 2 diabetes mellitus wit h diabetic chronic kidney disease acute Anemia acute Edema acute Fibrillary glomerulonephritis acute Hyperparathyroidism acute [id number]-[id number] acute Stage 3b chronic kidney disease (CKD) acute Type 2 diabetes mellitus wit h diabetic chronic kidney disease acute Anemia acute Edema acute Fibrillary glomerulonephritis acute Hyperkalemia acute Hyperparathyroidism acute [id number] acute Stage 3b chronic kidney disease (CKD) acute Type 2 diabetes mellitus wit h diabetic chronic kidney disease acute Anemia acute Edema acute Fibrillary glomerulonephritis acute Hyperkalemia acute Hyperparathyroidism acute [id number]-[id number] acute Stage 3b chronic kidney disease (CKD) acute Type 2 diabetes mellitus wit h diabetic chronic kidney disease acute [facility] Work Phone: Evaluation note* Diagnosis Onset Date Resolution Status Anemia acute Edema acute Fibrillary glomerulonephritis acute Hyperparathyroidism acute [id number] acute Stage 3b chronic kidney disease (CKD) acute Type 2 diabetes mellitus wit h diabetic chronic kidney disease acute Anemia acute Edema acute Fibrillary glomerulonephritis acute Hyperparathyroidism acute [id number]-[id number] acute Stage 3b chronic kidney disease (CKD) acute Type 2 diabetes mellitus wit h diabetic chronic kidney disease acute Anemia acute Edema acute Fibrillary glomerulonephritis acute Hyperparathyroidism acute [id number] acute Stage 3b chronic kidney disease (CKD) acute Type 2 diabetes mellitus wit h diabetic chronic kidney disease acute Anemia acute Edema acute Fibrillary glomerulonephritis acute Hyperkalemia acute Hyperparathyroidism acute [id number] acute Stage 3b chronic kidney disease (CKD) acute Type 2 diabetes mellitus wit h diabetic chronic kidney disease acute Anemia acute Edema acute Fibrillary glomerulonephritis acute Hyperkalemia acute Hyperparathyroidism acute [id number] acute Stage 3b chronic kidney disease (CKD) acute Type 2 diabetes mellitus wit h diabetic chronic kidney disease acute BMI 40.0-44.9, adult acute Diabetes acute Dietary counseling and surveillance acute HTN (hypertension) acute Hyperlipidemia acute Vitamin B 12 deficiency acut e [facility] Work Phone: Evaluation note* Diagnosis Onset Date Resolution Status Anemia acute Edema acute Fibrillary glomerulonephritis acute Hyperparathyroidism acute [id number] acute Stage 3b chronic kidney disease (CKD) acute Type 2 diabetes mellitus wit h diabetic chronic kidney disease acute Anemia acute Edema acute Fibrillary glomerulonephritis acute Hyperparathyroidism acute [id number] acute Stage 3b chronic kidney disease (CKD) acute Type 2 diabetes mellitus wit h diabetic chronic kidney disease acute Anemia acute Edema acute Fibrillary glomerulonephritis acute Hyperkalemia acute Hyperparathyroidism acute [id number]-[id number] acute Stage 3b chronic kidney disease (CKD) acute Type 2 diabetes mellitus wit h diabetic chronic kidney disease acute Anemia acute Edema acute Fibrillary glomerulonephritis acute Hyperkalemia acute Hyperparathyroidism acute [id number] acute Stage 3b chronic kidney disease (CKD) acute Type 2 diabetes mellitus wit h diabetic chronic kidney disease acute BMI 40.0-44.9, adult acute Diabetes acute Dietary counseling and surveillance acute HTN (hypertension) acute Hyperlipidemia acute Vitamin B 12 deficiency acut e Anemia acute Stage 3a chronic kidney disease (CKD) acute [facility] Work Phone: Evaluation note* Diagnosis Onset Date Resolution Status Anemia acute Edema acute Fibrillary glomerulonephritis acute Hyperparathyroidism acute [id number] acute Stage 3b chronic kidney disease (CKD) acute Type 2 diabetes mellitus wit h diabetic chronic kidney disease acute Anemia acute Edema acute Fibrillary glomerulonephritis acute Hyperkalemia acute Hyperparathyroidism acute [id number] acute Stage 3b chronic kidney disease (CKD) acute Type 2 diabetes mellitus wit h diabetic chronic kidney disease acute Anemia acute Edema acute Fibrillary glomerulonephritis acute Hyperkalemia acute Hyperparathyroidism acute [id number] acute Stage 3b chronic kidney disease (CKD) acute Type 2 diabetes mellitus wit h diabetic chronic kidney disease acute BMI 40.0-44.9, adult acute Diabetes acute Dietary counseling and surveillance acute HTN (hypertension) acute Hyperlipidemia acute Vitamin B 12 deficiency acut e Anemia acute Stage 3a chronic kidney disease (CKD) acute [facility] Work Phone: Evaluation note* Diagnosis Onset Date Resolution Status Anemia acute Edema acute Fibrillary glomerulonephritis acute Hyperparathyroidism acute [id number] acute Stage 3b chronic kidney disease (CKD) acute Type 2 diabetes mellitus wit h diabetic chronic kidney disease acute Anemia acute Edema acute Fibrillary glomerulonephritis acute Hyperkalemia acute Hyperparathyroidism acute [id number] acute Stage 3b chronic kidney disease (CKD) acute Type 2 diabetes mellitus wit h diabetic chronic kidney disease acute Anemia acute Edema acute Fibrillary glomerulonephritis acute Hyperkalemia acute Hyperparathyroidism acute [id number] acute Stage 3b chronic kidney disease (CKD) [...] Stage 3a chronic kidney disease (CKD) acute [facility] Work Phone: Evaluation note* Diagnosis Onset Date Resolution Status Anemia acute Edema acute Fibrillary glomerulonephritis acute Hyperkalemia acute Hyperparathyroidism acute [id number] acute Stage 3b chronic kidney disease (CKD) acute Type 2 diabetes mellitus wit h diabetic chronic kidney disease acute Anemia acute Edema acute Fibrillary glomerulonephritis acute Hyperkalemia acute Hyperparathyroidism acute [id number] acute Stage 3b chronic kidney disease (CKD) [...] Fibrillary glomerulonephritis acute Hyperkalemia acute Hyperparathyroidism acute [id number]-[id number] acute Stage 3b chronic kidney disease (CKD) acute Type 2 diabetes mellitus wit h diabetic chronic kidney disease acute [facility] Work Phone: Evaluation note* Diagnosis Onset Date Resolution Status Anemia acute Edema acute Fibrillary glomerulonephritis acute Hyperkalemia acute Hyperparathyroidism acute [id number] acute Stage 3b chronic kidney disease (CKD) [...] Fibrillary glomerulonephritis acute Hyperkalemia acute Hyperparathyroidism acute [id number] acute Stage 3b chronic kidney disease (CKD) acute Type 2 diabetes mellitus wit h diabetic chronic kidney disease acute [facility] Work Phone: Evaluation note* Diagnosis Onset [...] Fibrillary glomerulonephritis acute Hyperkalemia acute Hyperparathyroidism acute [id number] acute Stage 3b chronic kidney disease (CKD) acute Type 2 diabetes mellitus wit h diabetic chronic kidney disease acute Anemia acute Anemia of renal disease acut e 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 acute [id number] acute [facility] Work Phone: Evaluation note* Diagnosis Dermatophytosis of nail- Primary Dystrophic nail Other specified disease of nail Pain around toenail, right foot Pain around toenail, left foot [facility] Onset Date Resolution Status Anemia acute Anemia of renal disease acut e Stage 3a chronic kidney disease (CKD) acute Anemia of renal disease acut e Stage 3b chronic kidney disease (CKD) acute Anemia acute Edema acute Fibrillary glomerulonephritis acute Hyperkalemia acute Hyperparathyroidism acute [id number]-[id number] acute Stage 3b chronic kidney disease (CKD) acute Type 2 diabetes mellitus wit h diabetic chronic kidney disease acute Anemia acute Anemia of renal disease acut e Stage 3b chronic kidney disease (CKD) acute Anemia acute Chronic kidney disease, stage IV (severe) acute Edema acute Fibrillary glomerulonephritis acute Hyperkalemia acute Hyperparathyroidism acute [id number] acute Type 2 diabetes mellitus wit h diabetic chronic kidney disease acute Anemia acute Chronic kidney disease, stage IV (severe) acute [facility] Work Phone: Evaluation note* 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 PAF (paroxysmal 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) ([facility]) Atrial fibrillation [facility] Diagnosis Hyperlipidemia, unspecified hyperlipidemia type [facility]* Diagnosis PAF (paroxysmal 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) ([facility])- Primary Atrial fibrillation [facility]* Diagnosis SOB (shortness of breath)- Primary Shortness of breath Abnormal CXR Nonspecific (abnormal) findings on radiological and other examination of lung field [facility]* Diagnosis PAF (paroxysmal 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) ([facility])- Primary Atrial fibrillation [facility]* Diagnosis Dermatophytosis of nail- Primary Dystrophic nail Other specified disease of nail Pain around toenail, right foot Pain around toenail, left foot [facility] (paroxysmal 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) ([facility] Primary Atrial fibrillation 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 ([facility]) [facility]* Diagnosis PAF (paroxysmal 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) ([facility]) Atrial fibrillation [facility]* Diagnosis PAF (paroxysmal 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) ([facility])- Primary Atrial fibrillation [facility]* Diagnosis Hyperlipidemia, unspecified hyperlipidemia type documented in [facility]* Diagnosis PAF (paroxysmal 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) ([facility])- Primary Atrial fibrillation documented [facility]* Diagnosis Hyperlipidemia, unspecified hyperlipidemia type [facility] Dis[facility] instructionsAmbulatory Orders* AMB POC INR Time Frame: 2 Months, Location: Determined By Patient [facility] Work Phone: Hospital Discharge instructionsAmbulatory Orders* Referral to Pain Management Time Frame: 09/13/24, Location: None Selected [facility] Work Phone: InstructionsNot on filedocumented in this encounter [facility] filed[facility] in this [facility] filed[facility] in [facility] filed[facility] in this [facility] SystemInstructionsNot on filedocumented in this encounter [facility] Summary Purpose Family History No Family History [...] Time Advance Directives No August 17 2:44pm Advance Directive Response Recorded Date/ Time Advance Directives No October 05 1:34pm Chief Complaint and Reason for Visit Chief Complaint Renal 6 Month Follow Up Chief Complaint RENAL 3 month Follow up Reason for Visit Anemia BMI 50.0-59.9, adult Edema Hyperlipidemia [id number] Stage 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 Chief Complaint RENAL 3 month Follow up kusum reader Reason for Visit Anemia BMI 50.0-59.9, adult Edema Hyperlipidemia [id number] Stage 3b chronic kidney disease (CKD) Type 2 diabetes mellitus with diabetic chronic kidney disease Diabetes Dietary counseling and surveillance HTN (hypertension) Hyperlipidemia Vitamin B 12 deficiency Chief Complaint RENAL 3 month Follow up kusum reader N18.32 R60.9 D64.9 Z68.43 E78.5 E11.22 I12.9 Reason for Visit Anemia BMI 50.0-59.9, adult Edema Hyperlipidemia [id number] Stage 3b chronic kidney disease (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 BMI 40.0-44.9, adult Diabetes Dietary counseling and surveillance HTN (hypertension) Hyperlipidemia Vitamin B 12 deficiency Chief Complaint RENAL 3 month Follow up kusum reader N18.32 R60.9 D64.9 Z68.43 E78.5 E11.22 I12.9 RENAL F/U Reason for Visit Anemia BMI 50.0-59.9, adult Edema Hyperlipidemia [id number] Stage 3b chronic kidney disease (CKD) Type 2 diabetes mellitus with diabetic chronic kidney disease BMI 40.0-44.9, adult Diabetes Dietary counseling and surveillance HTN (hypertension) Hyperlipidemia Vitamin B 12 deficiency Anemia Edema Fibrillary glomerulonephritis Hyperparathyroidism [id number] Stage 3b chronic kidney disease (CKD) Type 2 diabetes mellitus with diabetic chronic kidney disease Chief Complaint RENAL 3 month Follow up kusum reader N18.32 R60.9 D64.9 Z68.43 E78.5 E11.22 I12.9 RENAL F/U 3 week f/u Reason for Visit Anemia BMI 50.0-59.9, adult Edema Hyperlipidemia [id number] Stage 3b chronic kidney disease (CKD) Type 2 diabetes mellitus with diabetic chronic kidney disease BMI 40.0-44.9, adult Diabetes Dietary counseling and surveillance HTN (hypertension) Hyperlipidemia Vitamin B 12 deficiency Anemia Edema Fibrillary glomerulonephritis Hyperparathyroidism [id number] Stage 3b chronic kidney disease (CKD) Type 2 diabetes mellitus with diabetic chronic kidney disease Anemia Edema Fibrillary glomerulonephritis Hyperparathyroidism [id number]-[id number] Stage 3b chronic kidney disease (CKD) Type 2 diabetes mellitus with diabetic chronic kidney disease Chief Complaint RENAL 3 month Follow up kusum reader N18.32 R60.9 D64.9 Z68.43 E78.5 E11.22 I12.9 RENAL F/U 3 week f/u RENAL 2 MONTH F/U Reason for Visit Anemia BMI 50.0-59.9, adult Edema Hyperlipidemia [id number] Stage 3b chronic kidney disease (CKD) Type 2 diabetes mellitus with diabetic chronic kidney disease BMI 40.0-44.9, adult Diabetes Dietary counseling and surveillance HTN (hypertension) Hyperlipidemia Vitamin B 12 deficiency Anemia Edema Fibrillary glomerulonephritis Hyperparathyroidism [id number] Stage 3b chronic kidney disease (CKD) Type 2 diabetes mellitus with diabetic chronic kidney disease Anemia Edema Fibrillary glomerulonephritis Hyperparathyroidism [id number] Stage 3b chronic kidney disease (CKD) Type 2 diabetes mellitus with diabetic chronic kidney disease Anemia Edema Fibrillary glomerulonephritis Hyperparathyroidism [id number]-[id number] Stage 3b chronic kidney disease (CKD) Type 2 diabetes mellitus with diabetic chronic kidney disease Chief Complaint RENAL 3 month Follow up kusum reader N18.32 R60.9 D64.9 Z68.43 E78.5 E11.22 I12.9 RENAL F/U 3 week f/u RENAL 2 MONTH F/U RENAL 3 WK INJ RETACRIT Reason for Visit Anemia BMI 50.0-59.9, adult Edema Hyperlipidemia [id number] Stage 3b chronic kidney disease (CKD) Type 2 diabetes mellitus with diabetic chronic kidney disease BMI 40.0-44.9, adult Diabetes Dietary counseling and surveillance HTN (hypertension) Hyperlipidemia Vitamin B 12 deficiency Anemia Edema Fibrillary glomerulonephritis Hyperparathyroidism [id number] Stage 3b chronic kidney disease (CKD) Type 2 diabetes mellitus with diabetic chronic kidney disease Anemia Edema Fibrillary glomerulonephritis Hyperparathyroidism [id number] Stage 3b chronic kidney disease (CKD) Type 2 diabetes mellitus with diabetic chronic kidney disease Anemia Edema Fibrillary glomerulonephritis Hyperparathyroidism [id number]-[id number] Stage 3b chronic kidney disease (CKD) Type 2 diabetes mellitus with diabetic chronic kidney disease Anemia Edema Fibrillary glomerulonephritis Hyperkalemia Hyperparathyroidism [id number]-55241498 Stage 3b chronic kidney disease (CKD) Type [...] 12 deficiency Anemia Edema Fibrillary glomerulonephritis Hyperparathyroidism [id number] Stage 3b chronic kidney disease (CKD) Type 2 diabetes mellitus with diabetic chronic kidney disease Anemia Edema Fibrillary glomerulonephritis Hyperparathyroidism [id number]-[id number] Stage 3b chronic kidney disease (CKD) Type 2 diabetes mellitus with diabetic chronic kidney disease Anemia Edema Fibrillary glomerulonephritis Hyperparathyroidism [id number] Stage 3b chronic kidney disease (CKD) Type 2 diabetes mellitus with diabetic chronic kidney disease Anemia Edema Fibrillary glomerulonephritis Hyperkalemia Hyperparathyroidism [id number] Stage 3b chronic kidney disease (CKD) Type 2 diabetes mellitus with diabetic chronic kidney disease Anemia Edema Fibrillary glomerulonephritis Hyperkalemia Hyperparathyroidism [id number] Stage 3b chronic kidney disease (CKD) Type 2 diabetes mellitus with diabetic chronic kidney disease Chief Complaint RENAL F/U 3 week f/u RENAL 2 MONTH F/U RENAL 3 WK INJ RETACRIT RENAL 2 WK INJ / RETACRIT METER Reason for Visit Anemia Edema Fibrillary glomerulonephritis Hyperparathyroidism [id number] Stage 3b chronic kidney disease (CKD) Type 2 diabetes mellitus with diabetic chronic kidney disease Anemia Edema Fibrillary glomerulonephritis Hyperparathyroidism [id number] Stage 3b chronic kidney disease (CKD) Type 2 diabetes mellitus with diabetic chronic kidney disease Anemia Edema Fibrillary glomerulonephritis Hyperparathyroidism [id number] Stage 3b chronic kidney disease (CKD) Type 2 diabetes mellitus with diabetic chronic kidney disease Anemia Edema Fibrillary glomerulonephritis Hyperkalemia Hyperparathyroidism [id number] Stage 3b chronic kidney disease (CKD) Type 2 diabetes mellitus with diabetic chronic kidney disease Anemia Edema Fibrillary glomerulonephritis Hyperkalemia Hyperparathyroidism [id number] Stage 3b chronic kidney disease (CKD) Type [...] for Visit Anemia Edema Fibrillary glomerulonephritis Hyperparathyroidism [id number] Stage 3b chronic kidney disease (CKD) Type 2 diabetes mellitus with diabetic chronic kidney disease Anemia Edema Fibrillary glomerulonephritis Hyperparathyroidism [id number] Stage 3b chronic kidney disease (CKD) Type 2 diabetes mellitus with diabetic chronic kidney disease Anemia Edema Fibrillary glomerulonephritis Hyperkalemia Hyperparathyroidism [id number] Stage 3b chronic kidney disease (CKD) Type 2 diabetes mellitus with diabetic chronic kidney disease Anemia Edema Fibrillary glomerulonephritis Hyperkalemia Hyperparathyroidism [id number] Stage 3b chronic kidney disease (CKD) Type [...] for Visit Anemia Edema Fibrillary glomerulonephritis Hyperparathyroidism [id number] Stage 3b chronic kidney disease (CKD) Type 2 diabetes mellitus with diabetic chronic kidney disease Anemia Edema Fibrillary glomerulonephritis Hyperkalemia Hyperparathyroidism [id number] Stage 3b chronic kidney disease (CKD) Type 2 diabetes mellitus with diabetic chronic kidney disease Anemia Edema Fibrillary glomerulonephritis Hyperkalemia Hyperparathyroidism [id number] Stage 3b chronic kidney disease (CKD) Type [...] for Visit Anemia Edema Fibrillary glomerulonephritis Hyperparathyroidism [id number] Stage 3b chronic kidney disease (CKD) Type 2 diabetes mellitus with diabetic chronic kidney disease Anemia Edema Fibrillary glomerulonephritis Hyperkalemia Hyperparathyroidism [id number] Stage 3b chronic kidney disease (CKD) Type 2 diabetes mellitus with diabetic chronic kidney disease Anemia Edema Fibrillary glomerulonephritis Hyperkalemia Hyperparathyroidism [id number] Stage 3b chronic kidney disease (CKD) Type [...] Visit Anemia Edema Fibrillary glomerulonephritis Hyperkalemia Hyperparathyroidism [id number] Stage 3b chronic kidney disease (CKD) Type 2 diabetes mellitus with diabetic chronic kidney disease Anemia Edema Fibrillary glomerulonephritis Hyperkalemia Hyperparathyroidism [id number] Stage 3b chronic kidney disease (CKD) Type [...] (CKD) Anemia Edema Fibrillary glomerulonephritis Hyperkalemia Hyperparathyroidism [id number] Stage 3b chronic kidney disease (CKD) Type [...] Visit Anemia Edema Fibrillary glomerulonephritis Hyperkalemia Hyperparathyroidism [id number] Stage 3b chronic kidney disease (CKD) Type [...] (CKD) Anemia Edema Fibrillary glomerulonephritis Hyperkalemia Hyperparathyroidism [id number] Stage 3b chronic kidney disease (CKD) Type [...] (CKD) Anemia Edema Fibrillary glomerulonephritis Hyperkalemia Hyperparathyroidism [id number] Stage 3b chronic kidney disease (CKD) Type 2 diabetes mellitus with diabetic chronic kidney disease Anemia Anemia of renal disease 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 [id number] Chief Complaint RENAL 2 WK INJ/RETAC RIT/NURSE [...] (CKD) Anemia Edema Fibrillary glomerulonephritis Hyperkalemia Hyperparathyroidism [id number] Stage 3b chronic kidney disease (CKD) Type 2 diabetes mellitus with diabetic chronic kidney disease Anemia Anemia of renal disease Stage 3b chronic kidney disease (CKD) Anemia Chronic kidney disease, stage IV (severe) Edema Fibrillary glomerulonephritis Hyperkalemia Hyperparathyroidism [id number] Type 2 diabetes mellitus with diabetic chronic [...] Stage 3b chronic kidney disease (CKD) Au yt 2023 10:53am Anemia January 27, 2024 1:47pm [...] stage 4 due to type 1 diabetes [facility] June 03, 2024 11:32am BMI 40.0-44.9, adult [...] stage 4 due to type 1 diabetes [facility] May 04, 2024 11:08am Anemia of renal disease June 03 11:32am 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 durgai June 03, 2024 11:32am BMI 40.0-44.9, adult June 14, 2024 1:49pm Diabetes June 14, 2024 1 :49pm Dietary counseling and surveillance Freddy wilson 2024 1:49pm HTN (hypertension) June 14, 2024 1 :49pm Hyperlipidemia June 14, 2024 1 :49pm Anemia June 17, 2024 1 :50pm 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 durga June 17, 2024 1:50pm Chief Complaint Admit Date RENAL 3 WK INJ / RETACRIT / NURSE Decemb 2023 1:01pm RENAL 2 WK INJ / [...] stage 4 due to type 1 diabetes [facility] May 04, 2024 11:08am Anemia of renal disease June 03 11:32am 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 durgai June 03, 2024 11:32am BMI 40.0-44.9, adult [...] stage 4 due to type 1 diabetes [facility] May 04, 2024 11:08am Anemia of renal disease June 03 11:32am 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 [facility] June 03, 2024 11:32am BMI 40.0-44.9, adult [...] due to type 1 diabetes melli tus June 03, 2024 11:32am BMI 40.0-44.9, adult [...] Back pain August 17, 2024 1:57 pm Chief Complaint Admit Date RENAL 2-3 WK INJ F/U / RETACRIT / DR Cricket perez 2024 1:50pm RENAL 2 WEEK F/U July 27, 2024 1:4 5pm 2 week injection August 17, 2024 1:57 pm M54.9 September 01, 2024 10: 20am Reason for Visit Admit Date BMI 40.0-44.9, adult June 14, 2024 1:49pm [...] Back pain August 17, 2024 1:57 pm Chief Complaint Admit Date RENAL 2-3 WK INJ F/U / RETACRIT / DR Cricket perez 2024 1:50pm RENAL 2 WEEK F/U July 27, 2024 1:4 5pm 2 week injection August 17, 2024 1:57 pm M54.9 September 01, 2024 10: 20am 3 week inj September 13, 2024 10: 16am Reason for Visit Admit Date Anemia June 17, 2024 1 :50pm Chronic [...] Back pain August 17, 2024 1:57 pm Anemia of renal disease September 13, 2024 [...] chronic kidney disease September 13, 2024 10:16am Chief Complaint Admit Date 2 week injection August 17, 2024 1:57 pm M54.9 September 01, 2024 10: 20am 3 week inj September 13, 2024 10: 16am 3 week inj October 05, 2024 1:04p m RENAL 3 WEEK INJ October 26, 2024 9:53 am Reason for Visit Admit Date Anemia of renal disease August 17, 2024 [...] chronic kidney disease October 05, 2024 1:04pm Anemia of renal disease October 26, 2024 9:53am Back pain October 26, 2024 9:53 am Chronic kidney disease, stage IV (severe ) October 26, 2024 9:53am Edema October 26, 2024 9:53 am Fibrillary glomerulonephritis October 26, 2024 9:53am Hyperkalemia October 26, 2024 9:53 am Hyperparathyroidism October 26, 2024 9:53 am Hypertensive chronic kidney disease with stage 1 through stage 4 chronic ki October 26, 2024 9:53am Type 2 diabetes mellitus wit h diabetic chronic kidney disease October 26, 2024 9:53am Additional Source Comments REASON FOR VISIT (unrecogniz [...] Reason Onset Date Comments Med Refill 08/23/2024 Reason Onset Date Comments Med Refill 09/09/2024 Reason Comments Nail patrick Martínez is a 84 y.o. female who presents for DM Foot Care. PCP: Chester Lin LV 06/16/24, A1C: 5.4, BS: 88, SS: 7.5-8 INFORMATION SOURCE (unrecogn ized section and content) DATE CREATED AUTHOR 10/27/2022 [facility] DATE CREATED AUTHOR AUTHOR'S ORGANIZ ATION 01/13/2024 [facility] DATE CREATED AUTHOR AUTHOR'S ORGANIZ ATION 05/12/2024 [facility] DATE CREATED AUTHOR AUTHOR'S ORGANIZ ATION 09/03/2024 [facility] DATE CREATED AUTHOR AUTHOR'S ORGANIZ ATION 10/15/2024 [facility] DATE CREATED AUTHOR AUTHOR'S ORGANIZ ATION 10/29/2024 [facility] DATE CREATED AUTHOR AUTHOR'S ORGANIZ ATION 11/04/2024 [facility] EPIC Care Teams (unrecognized sec tion and content) Team Status: Active Member Role Status Dates ALFREDO Jiang Primary Care Provider Active Team Status: Active Member Role Status Dates Rin Ramirez MD Attending Provider Active Star t: August 04, 2024 ALFREDO Jiang Primary Care Provider Active Start: August 04, 2024 Team Status: Inactive Member Role Status Dates Anika Deepa Elaine , DISTRIBUTION SALES REPRESENTATIVE-C Primary Care Provider Active Start: August 17, 2024 End: August 17, 2024 Rin Ramirez MD Attending Provider Active Star t: August 17, 2024 End: August 17, 2024 Team Status: Inactive Member Role Status Dates Anika Henry DISTRIBUTION SALES REPRESENTATIVE-C Primary Care Provider Active Start: September 01, 2024 End: September 01, 2024 Rin Ramirez MD Attending Provider Active Star t: September 01, 2024 End: September 01, 2024 Team Status: Active Member Role Status Dates Rin Ramirez MD Attending Provider Active Star t: September 02, 2024 Anika Henry DISTRIBUTION SALES REPRESENTATIVE-C Primary Care Provider Active Start: September 02, 2024 Team Status: Inactive Member Role Status Dates Anika Henry DISTRIBUTION SALES REPRESENTATIVE-C Primary Care Provider Active Start: September 13, 2024 End: September 13, 2024 Becca Rodriguez MD Attending Provider Active Start : September 13, 2024 End: September 13, 2024 Team Status: Active Member Role Status Dates Anika Henry DISTRIBUTION SALES REPRESENTATIVE-C Primary Care Provider Active Start: September 29, 2024 Becca Rodriguez MD Attending Provider Active Start : September 29, 2024 Team Status: Inactive Member Role Status Dates Anika Henry DISTRIBUTION SALES REPRESENTATIVE-C Primary Care Provider Active Start: October 05, 2024 End: October 05, 2024 Rin Ramirez MD Attending Provider Active Star t: October 05, 2024 End: October 05, 2024 Team Status: Active Member Role Status Dates Rin Ramirez MD Attending Provider Active Star t: October 22, 2024 Anika Henry DISTRIBUTION SALES REPRESENTATIVE-C Primary Care Provider Active Start: October 22, 2024 Team Status: Inactive Member Role Status Dates Anika Henry DISTRIBUTION SALES REPRESENTATIVE-C Primary Care Provider Active Start: October 26, 2024 End: October 26, 2024 Rin Ramirez MD Attending Provider Active Star t: October 26, 2024 End: October 26, 2024 Team Status: Inactive Member Role Status Dates Anika Henry DISTRIBUTION SALES REPRESENTATIVE-C Primary Care Provider Active Start: June 14, 2024 End: June 14, 2024 Chester Lin APRN Attending Provider Active Start: June 14, 2024 End: June 14, 2024 Team Status: Inactive Member Role Status Dates Anika Henry DISTRIBUTION SALES REPRESENTATIVE-C Primary Care Provider Active Start: June 17, 2024 End: June 17, 2024 Becca Rodriguez MD Attending Provider Active Start : June 17, 2024 End: June 17, 2024 Team Status: Inactive Member Role Status Dates Anika Henry DISTRIBUTION SALES REPRESENTATIVE-C Primary Care Provider Active Start: 2024 End: 2024 Rin Ramirez MD Attending Provider Active Star t: 2024 End: 2024 Team Status: Active Member Role Status Dates Rin Ramirez MD Attending Provider Active Star t: July 20, 2024 Anika Henry DISTRIBUTION SALES REPRESENTATIVE-C Primary Care Provider Active Start: July 20, 2024 Team Status: Inactive Member Role Status Dates Anika Henry DISTRIBUTION SALES REPRESENTATIVE-C Primary Care Provider Active Start: July 27, 2024 End: July 27, 2024 Rin Ramirez MD Attending Provider Active Star t: July 27, 2024 End: July 27, 2024 Team Status: Active Member Role Status Dates Rin Ramirez MD Attending Provider Active Star t: May 25, 2024 Anika Henry DISTRIBUTION SALES REPRESENTATIVE-C Primary Care Provider Active Start: May 25, 2024 Team Status: Inactive Member Role Status Dates Anika Henry DISTRIBUTION SALES REPRESENTATIVE-C Primary Care Provider Active Start: June 03, 2024 End: June 03, 2024 Becca Rodriguez MD Attending Provider Active Start : June 03, 2024 End: June 03, 2024 Team Status: Active Member Role Status Dates Anika Henry DISTRIBUTION SALES REPRESENTATIVE-C Primary Care Provider Active Start: June 10, 2024 Becca Rodriguez MD Attending Provider Active Start : June 10, 2024 Team Status: Inactive Member Role Status Dates Anika Henry DISTRIBUTION SALES REPRESENTATIVE-C Primary Care Provider Active Start: March 23, 2024 End: March 23, 2024 Rin Ramirez MD Attending Provider Active Star t: March 23, 2024 End: March 23, 2024 Team Status: Inactive Member Role Status Dates Anika Henry DISTRIBUTION SALES REPRESENTATIVE-C Primary Care Provider Active Start: March 30, 2024 End: March 30, 2024 Rin Ramirez MD Attending Provider Active Star t: March 30, 2024 End: March 30, 2024 Team Status: Active Member Role Status Dates Rin Ramirez MD Attending Provider Active Star t: April 13, 2024 Anika Henry DISTRIBUTION SALES REPRESENTATIVE-C Primary Care Provider Active Start: April 13, 2024 Team Status: Inactive Member Role Status Dates Anika Henry , DISTRIBUTION SALES REPRESENTATIVE-C Primary Care Provider Active Start: April 20, 2024 End: April 20, 2024 Rin Ramirez MD Attending Provider Active Star t: April 20, 2024 End: April 20, 2024 Team Status: Active Member Role Status Dates Anika Henry DISTRIBUTION SALES REPRESENTATIVE-C Primary Care Provider Active Start: April 28, 2024 Rin Ramirez MD Attending Provider Active Star t: April 28, 2024 Team Status: Inactive Member Role Status Dates Anika Henry , DISTRIBUTION SALES REPRESENTATIVE-C Primary Care Provider Active Start: May 04, 2024 End: May 04, 2024 Rin Ramirez MD Attending Provider Active Star t: May 04, 2024 End: May 04, 2024 Team Status: Active Member Role Status Dates Rin Ramirez MD Attending Provider Active Star t: January 05, 2024 Anika Henry DISTRIBUTION SALES REPRESENTATIVE-C Primary Care Provider Active Start: January 05, 2024 Team Status: Inactive Member Role Status Dates Anika Henry , DISTRIBUTION SALES REPRESENTATIVE-C Primary Care Provider Active Start: January 13, 2024 End: January 13, 2024 Rin Ramirez MD Attending Provider Active Star t: January 13, 2024 End: January 13, 2024 Team Status: Active Member Role Status Andrés Rodriguez MD Attending Provider Active Start : January 20, 2024 Anika Henry , DISTRIBUTION SALES REPRESENTATIVE-C Primary Care Provider Active Start: January 20, 2024 Team Status: Active Member Role Status Dates Rin Ramirez MD Attending Provider Active Star t: January 23, 2024 Anika Henry DISTRIBUTION SALES REPRESENTATIVE-C Primary Care Provider Active Start: January 23, 2024 Team Status: Inactive Member Role Status Dates Anika Henry DISTRIBUTION SALES REPRESENTATIVE-C Primary Care Provider Active Start: January 27, 2024 End: January 27, 2024 Rin Ramirez MD Attending Provider Active Star t: January 27, 2024 End: January 27, 2024 Team Status: Active Member Role Status Dates Rin Ramirez MD Attending Provider Active Star t: February 03, 2024 Anika Henry DISTRIBUTION SALES REPRESENTATIVE-C Primary Care Provider Active Start: February 03, 2024 Team Status: Inactive Member Role Status Dates Anika Henry DISTRIBUTION SALES REPRESENTATIVE-C Primary Care Provider Active Start: February 10, 2024 End: February 10, 2024 Rin Ramirez MD Attending Provider Active Star t: February 10, 2024 End: February 10, 2024 Team Status: Active Member Role Status Dates Rin Ramirez MD Attending Provider Active Star t: February 23, 2024 Anika Henry DISTRIBUTION SALES REPRESENTATIVE-C Primary Care Provider Active Start: February 23, 2024 Team Status: Inactive Member Role Status Dates Anika Henry DISTRIBUTION SALES REPRESENTATIVE-C Primary Care Provider Active Start: March 02, 2024 End: March 02, 2024 Rin Ramirez MD Attending Provider Active Star t: March 02, 2024 End: March 02, 2024 Team Status: Active Member Role Status Dates Anika Henry DISTRIBUTION SALES REPRESENTATIVE-C Primary Care Provider Active Start: March 17, 2024 Rin Ramirez MD Attending Provider Active Star t: March 17, 2024 Team Status: Inactive Member Role Status Dates Anika Henry DISTRIBUTION SALES REPRESENTATIVE-C Primary Care Provider Active Start: December 08, 2023 End: December 08, 2023 Chester Lin APRN Attending Provider Active Start: December 08, 2023 End: December 08, 2023 Team Status: Inactive Member Role Status Dates Anika Henry DISTRIBUTION SALES REPRESENTATIVE-C Primary Care Provider Active Start: December 11, 2023 End: December 11, 2023 Becca Rodriguez MD Attending Provider Active Start : December 11, 2023 End: December 11, 2023 Team Status: Inactive Member Role Status Dates Anika Henry DISTRIBUTION SALES REPRESENTATIVE-C Primary Care Provider Active Start: December 30, 2023 End: December 30, 2023 Rin Ramirez MD Attending Provider Active Star t: December 30, 2023 End: December 30, 2023 Team Status: Active Member Role Status Dates Anika Henry DISTRIBUTION SALES REPRESENTATIVE-C Primary Care Provider Active Start: October 30, 2023 Rin Ramirez MD Attending Provider Active Star t: October 30, 2023 Team Status: Inactive Member Role Status Dates Anika Henry DISTRIBUTION SALES REPRESENTATIVE-C Primary Care Provider Active Start: November 05, 2023 End: November 05, 2023 Rin Ramirez MD Attending Provider Active Star t: November 05, 2023 End: November 05, 2023 Team Status: Active Member Role Status Dates Anika Henry DISTRIBUTION SALES REPRESENTATIVE-C Primary Care Provider Active Start: November 13, 2023 Rin Ramirez MD Attending Provider Active Star t: November 13, 2023 Team Status: Inactive Member Role Status Dates Anika Henry DISTRIBUTION SALES REPRESENTATIVE-C Primary Care Provider Active Start: November 18, 2023 End: November 18, 2023 Rin Ramirez MD Attending Provider Active Star t: November 18, 2023 End: November 18, 2023 Team Status: Active Member Role Status Dates Rin Ramirez MD Attending Provider Active Star t: November 27, 2023 Anika Henry DISTRIBUTION SALES REPRESENTATIVE-C Primary Care Provider Active Start: November 27, 2023 Team Status: Inactive Member Role Status Dates Anika Henry DISTRIBUTION SALES REPRESENTATIVE-C Primary Care Provider Active Start: October 15, 2023 End: October 15, 2023 iRn Ramirez MD Attending Provider Active Star t: October 15, 2023 End: October 15, 2023 Team Status: Active Member Role Status Dates Anika Henry DISTRIBUTION SALES REPRESENTATIVE-C Primary Care Provider Active Start: September 16, 2023 Rin Ramirez MD Attending Provider Active Star t: September 16, 2023 Team Status: Inactive Member Role Status Dates Anika Henry DISTRIBUTION SALES REPRESENTATIVE-C Primary Care Provider Active Start: September 23, 2023 End: September 23, 2023 Rin Ramirez MD Attending Provider Active Star t: September 23, 2023 End: September 23, 2023 Team Status: Active Member Role Status Adnrés Ramirez MD Attending Provider Active Star t: October 07, 2023 Anika Henry DISTRIBUTION SALES REPRESENTATIVE-C Primary Care Provider Active Start: October 07, 2023 Team Status: Inactive Member Role Status Dates Anika Henry DISTRIBUTION SALES REPRESENTATIVE-C Primary Care Provider Active Start: August 13, 2023 End: August 13, 2023 Rin Ramirez MD Attending Provider Active Star t: August 13, 2023 End: August 13, 2023 Team Status: Inactive Member Role Status Dates Anika Henry DISTRIBUTION SALES REPRESENTATIVE-C Primary Care Provider Active Start: August 20, 2023 End: August 20, 2023 Chester Lin APRN Attending Provider Active Start: August 20, 2023 End: August 20, 2023 Team Status: Inactive Member Role Status Dates Anika Henry DISTRIBUTION SALES REPRESENTATIVE-C Primary Care Provider Active Start: September 01, 2023 End: September 01, 2023 Rin Ramirez MD Attending Provider Active Star t: September 01, 2023 End: September 01, 2023 Team Status: Inactive Member Role Status Dates Anika Henry DISTRIBUTION SALES REPRESENTATIVE-C Primary Care Provider Active Start: September 09, [...] NP-C Primary Care Provider Active Start: August 05, 2023 Rin Ramirez MD Attending Provider Active Star t: August 05, 2023 Team Status: Inactive Member Role Status Dates Rin Ramirez MD Attending Provider Active Star t: April 22, 2023 End: April 22, 2023 Clutch Inspector Relationship Specialty Start Date End Date Cole Henry MD [address], [place] [id number] PCP - General Family Medicine 11/20/22 Clutch Inspector Relationship Specialty Start Date End Date Cole Henry MD [address] [place] [address] PCP - General Family Medicine 11/20/22 Clutch Inspector Relationship Specialty Start Date End Date ElaineAnika hairston APRN-CNP [address] [facility], [place] [address] PCP - General Family Medicine 04/29/23 Clutch Inspector Relationship Specialty Start Date End Date Anika Henry APRN-CNP [address] [facility], [place] [address] PCP - General Family Medicine 04/29/23 Clutch Inspector Relationship Specialty Start Date End Date Anika Henry APRN-CNP [address] [facility], [place] [address] PCP - General Family Medicine 04/29/23 Clutch Inspector Relationship Specialty Start Date End Date Anika Henry APRN-CNP [address] [facility], [place] [address] PCP - General Family Medicine 04/29/23 Clutch Inspector Relationship Specialty Start Date End Date Anika Henry APRN-CNP [address] [facility], [place] [address] PCP - General Family Medicine 04/29/23 Clutch Inspector Relationship Specialty Start Date End Date Cole Henry MD [address], [place] [id number] PCP - General Family Medicine 11/20/22 Clutch Inspector Relationship Specialty Start Date End Date Cole Henry MD [address], [place] [phone] PCP - General Family Medicine 11/20/22 Clutch Inspector Relationship Specialty Start Date End Date Anika Henry APRN-CNP [address] [facility], [place] [address] PCP - General Family Medicine 04/29/23 Clutch Inspector Relationship Specialty Start Date End Date Anika Henry APRN-CNP [address] [facility], [place] [address] PCP - General Family Medicine 04/29/23 Clutch Inspector Relationship Specialty Start Date End Date Anika Henry APRN-CNP [address] [facility], [place] [address] PCP - General Family Medicine 04/29/23 Clutch Inspector Relationship Specialty Start Date End Date Anika Henry APRN-CNP [address] [facility], [place] [address] PCP - General Family Medicine 04/29/23 Clutch Inspector Relationship Specialty Start Date End Date Anika Henry APRN-CNP [address] [facility], [place] [address] PCP - General Family Medicine 04/29/23 Goals [...] BE BASED ON THE PRIMARY CLINICAL RECORDS. [facility]. provides no warranty or guarantee of the accuracy or completeness of information in this document.
--- NOTE | 2024-11-07 11:04 | ECG_ITS ---
[facility] Test Date: 2024-11-07 Pat Name: JONATHAN HILL Department: Room: - Gender: Female [place]: : 1940 Requested By: [id number] Order Number: [id number] Reading MD: STEPHANIE MARTIN M.D. Measurements Intervals [place] Rate: 77 P: 90 WV: 166 QRS: -61 QRSD: 152 T: 90 QT: 444 QTc: 476 Interpretive Statements 1100 Sinus rhythm 2450 Right bundle branch block 2630 Left anterior fascicular block 3332 Anterolateral myocardial infarction, probably recent 5234 Left ventricular hypertrophy with repolarization abnormality 9150 abnormal ECG Compared to ECG 05/08/2023 14:32:24 Atrial fibrillation no longer present Myocardial infarct finding still present Electronically Signed On 11-07-2024 22:08:01 EDT by STEPHANIE MARTIN M.D.
[2024-11-07 11:29] LABS: Basophils Percent Auto 0.2 % (0.2-2.0); Eosinophils Absolute Auto 0.1 10^3/uL (0.0-0.7); Eosinophils Percent Auto 0.6 % (0.9-7.0); Hematocrit 33.4 % (36.0-48.0); Hemoglobin 9.9 g/dL (12.0-16.0); Immature Granulocytes Abs Auto 0.11 10^3/uL (0.00-0.03); Immature Granulocytes Pct Auto 0.8 % (0.0-0.5); Lymphocytes Absolute Auto 0.5 10^3/uL (1.2-3.8); Lymphocytes Percent Auto 3.5 % (20.5-60.0); Mean Corpuscular HGB Conc 29.6 g/dL (29.9-35.2); Mean Corpuscular Hemoglobin 29.9 pg (26.7-34.0); Mean Corpuscular Volume 100.9 fL (81.0-99.0); Mean Platelet Volume 10.2 fL (9.5-13.5); Monocytes Absolute Auto 0.4 10^3/uL (0.3-0.8); Monocytes Percent Auto 2.9 % (1.7-12.0); Neutrophils Absolute Auto 11.9 10^3/uL (1.4-6.5); Platelet Count 192 10^3/uL (150-450); Red Blood Count 3.31 10^6/uL (4.20-5.40); Red Cell Distribution Width 14.5 % (11.0-15.0)
[2024-11-07 11:43] LABS: Alanine Aminotransferase 15 U/L (14-59); Albumin Globulin Ratio 0.6; Albumin Level 2.5 g/dL (3.4-5.0); Alkaline Phosphatase 95 U/L (46-116); Anion Gap 9.1; Aspartate Amino Transferase 11 U/L (15-37); BUN Creatinine Ratio 17.4; Bilirubin Total 0.2 mg/dL (0.2-1.0); Calcium 9.2 mg/dL (8.5-10.1); Carbon Dioxide 34.6 mmol/L (21.0-32.0); Chloride 107 mmol/L (98-107); Estimated GFR (African America 27 (>=60 mL/min/1.73m^2); Estimated GFR (Non-African Ame 22 (>=60 mL/min/1.73m^2); Globulin 4.2 g/dL; Glucose 141 mg/dL (74-106); Potassium 3.7 mmol/L (3.5-5.1); Sodium 147 mmol/L (136-145); Total Protein 6.7 g/dL (6.4-8.2)
[2024-11-07 11:54] LABS: INR 5.12; Prothrombin Time 46.2 sec (9.0-11.6)
--- NOTE | 2024-11-07 11:57 | ED.GENADUL1 ---
HPI HPI - General Adult General Chief complaint: Shortness of Breath/Dyspnea Stated complaint: WEAKNESS COUGHING Time Seen by Provider: 11/07/24 11:04 Source: patient Mode of arrival: Wheelchair Limitations: no limitations History of Present Illness HPI narrative: The patient have history of CKD as well as lymphedema is coming to the ER with increasing shortness of breath and increasing in her oxygen demand as she is a COPD who uses 2 L nasal cannula daily right now she is needing 4 L to make sure that her breathing is better The patient has been having difficulty breathing at least for the last 2 weeks which she was treated with 2 courses of antibiotic as outpatient with no improvement she also was treated with steroids, the patient not showing any significant distress but she is mildly tachypneic and her pulse ox is 84% at room air on 2 L The patient had bilateral chronic lymphedema and she have Del wrap wrapped in both legs Related Data Home Medications ?Medication ?Instructions ?Recorded ?Confirmed albuterol sulfate 90 mcg/actuation 2 puff inhalation Q4H PRN 05/08/23 11/07/24 aerosol inhaler shortness of breath or wheezing alendronate 70 mg tablet 70 mg PO .weekly 05/08/23 11/07/24 bumetanide 1 mg tablet 1 mg PO DAILY 05/08/23 11/07/24 carvedilol 25 mg tablet 12.5 mg PO Q12H 05/08/23 11/07/24 cholecalciferol (vitamin D3) 50 2,000 unit PO DAILY 05/08/23 11/07/24 mcg (2,000 unit) capsule hydralazine 50 mg tablet 50 mg PO Q8H 05/08/23 11/07/24 ipratropium 0.5 mg-albuterol 3 mg 1.5 ml inhalation Q4H PRN 05/08/23 11/07/24 (2.5 mg base)/3 mL nebulization shortness of breath or wheezing soln levothyroxine 100 mcg tablet 125 mcg PO DAILY 05/08/23 11/07/24 (Euthyrox) loratadine 10 mg capsule 10 mg PO DAILY PRN allergy symptoms 05/08/23 11/07/24 nifedipine 60 mg tablet,extended 60 mg PO DAILY 05/08/23 11/07/24 release 24 hr omeprazole 20 mg capsule,delayed 20 mg PO DAILY 05/08/23 11/07/24 release rosuvastatin 5 mg tablet 5 mg PO DAILY 05/08/23 11/07/24 acetaminophen 300 mg-codeine 30 mg 1 tab PO BID 10/05/24 11/07/24 tablet amiodarone 200 mg tablet 200 mg PO DAILY 10/05/24 11/07/24 ferrous sulfate 325 mg (65 mg 325 mg PO BID 10/05/24 11/07/24 iron) tablet,delayed release fluticasone furoate 200 1 inh inhalation DAILY 10/05/24 11/07/24 mcg/actuation blister powder for inhalation semaglutide 0.25 mg or 0.5 mg (2 0.25 mg subcut QWEEK 10/05/24 11/07/24 mg/3 mL) subcutaneous pen injector ([employer]) warfarin 2.5 mg tablet 2.5 mg PO .COMPLEX 10/05/24 11/07/24 calcitriol 0.25 mcg capsule 0.25 mcg PO .COMPLEX 11/07/24 11/07/24 sodium zirconium cyclosilicate 10 10 g PO .COMPLEX 11/07/24 11/07/24 gram oral powder packet (kelmn) vitamin B complex 1 cap PO DAILY 11/07/24 11/07/24 Allergies Allergy/AdvReac Type Severity Reaction Status Date / Time Penicillins Allergy Severe Unknown Verified 11/07/24 10:57 Sulfa (Sulfonamide Allergy Severe Unknown Verified 11/07/24 10:57 Antibiotics) sulfamethoxazole (From Allergy Severe Unknown Verified 11/07/24 10:57 Bactrim) trimethoprim (From Bactrim) Allergy Severe Unknown Verified 11/07/24 10:57 Opioid HPI Opioid Management Most Recent Opioid Data: Last Pain Scale 5 Today, 10:58 Review of Systems ROS Status of ROS 10 or more systems reviewed and unremarkable except as noted in history and below [facility] Social History Little interest or pleasure in doing things: not at all Feeling down, depressed, or hopeless: not at all Exam Narrative Exam Narrative: Nurses notes and vital signs reviewed and patient is not hypoxic. General: Well-appearing and in no apparent distress. Skin: Warm, dry, no pallor noted. No rash. Head: Normocephalic, atraumatic. Neck: Supple, non-tender. Eye: Pupils are equal, round and EOMI. No scleral icterus. Ears, Nose, Mouth, and Throat: TM are clear, no nasal mucosal hypertrophy. Oral mucosa is moist, no posterior oropharynx erythema, uvula is mid-line Cardiovascular: Regular Rate and Rhythm without murmur, gallop or rub. Respiratory: No accessory muscle use or respiratory distress. Lungs are clear to auscultation, no wheezing, rales or rhonchi Chest Wall: no tenderness Back: No midline thoracic or lumbar vertebral tenderness. No CVA tenderness Musculoskeletal: normal ROM, no calf or popliteal tenderness, no lower extremity edema/swelling GI: Abdomen is soft, non-distended. Normal bowel sounds. No masses appreciated. No tenderness to palpation. No rebound, guarding, or rigidity noted. Neurological: A&O x4. No cranial nerve dysfunction observed. No truncal ataxia. Moves all extremities. Sensation intact. Psychiatric: Cooperative and interactive. Normal mood and affect. Constitutional Vital Signs, click to edit/add: Last Vital Signs Temp 97.9 F 11/07/24 10:58 Pulse 75 11/07/24 11:20 Resp 21 H 11/07/24 11:20 BP 156/68 H 11/07/24 11:02 Pulse Ox 94 L 11/07/24 11:20 O2 Del Method Nasal Cannula 11/07/24 11:10 O2 Flow Rate 2 11/07/24 11:10 Course Vital Signs Vital signs: Vital Signs Temperature 97.9 F 11/07/24 10:58 Pulse Rate 80 11/07/24 10:58 Respiratory Rate 28 H 11/07/24 10:58 Blood Pressure 156/68 H 11/07/24 10:58 Pulse Oximetry 84 L 11/07/24 10:58 Oxygen Delivery Method Nasal Cannula 11/07/24 10:58 Oxygen Delivery Flow Rate 2 11/07/24 10:58 Temperature 97.9 F 11/07/24 10:58 Pulse Rate 75 11/07/24 11:20 Respiratory Rate 21 H 11/07/24 11:20 Blood Pressure 156/68 H 11/07/24 11:02 Pulse Oximetry 94 L 11/07/24 11:20 Oxygen Delivery Method Nasal Cannula 11/07/24 11:10 Oxygen Delivery Flow Rate 2 11/07/24 11:10 Medical Decision Making MDM Narrative Medical decision making narrative: The patient upon arrival had an EKG showing sinus rhythm with a heart rate of 77 there is a right bundle joy block with nonspecific changes The patient chest x-ray showing lung base infection mostly bilateral but that looks like more on the right than the left The patient have a white blood cell of 13 and lactic acid pending but that her chemistry showing other than chronic kidney disease elevated BNP up which could be secondary to the chronic kidney disease Patient started breathing treatment as well as Solu-Medrol and after obtaining blood cultures the patient was started on levofloxacin to cover for pneumonia The patient have an increase in her oxygen demand from 2 L to 4 L and with her chronic kidney disease that could be also another reason for the elevated BNP but the patient will be started on antibiotic and will be cautious with fluid The patient case discussed with Dr. Rai and the patient will be admitted for further evaluation management of her pneumonia and increased oxygen demand Patient also was noted to have elevated supratherapeutic INR she does take Coumadin and that Coumadin need to be on hold Lab Data Labs: Lab Results 11/07/24 Range/Units 11:19 WBC 13.0 H (4.0-11.0) 10^3/uL RBC 3.31 L (4.20-5.40) 10^6/uL Hgb 9.9 L (12.0-16.0) g/dL Hct 33.4 L (36.0-48.0) % MCV 100.9 H (81.0-99.0) fL MCH 29.9 (26.7-34.0) pg MCHC 29.6 L (29.9-35.2) g/dL RDW 14.5 (11.0-15.0) % Plt Count 192 (150-450) 10^3/uL MPV 10.2 (9.5-13.5) fL Neut % (Auto) 92.0 H (43.0-75.0) % Lymph % (Auto) 3.5 L (20.5-60.0) % [place] % (Auto) 2.9 (1.7-12.0) % Eos % (Auto) 0.6 L (0.9-7.0) % Baso % (Auto) 0.2 (0.2-2.0) % Neut # (Auto) 11.9 H (1.4-6.5) 10^3/uL Lymph # (Auto) 0.5 L (1.2-3.8) 10^3/uL [place] # (Auto) 0.4 (0.3-0.8) 10^3/uL Eos # (Auto) 0.1 (0.0-0.7) 10^3/uL Baso # (Auto) 0.0 (0.0-0.1) 10^3/uL Abs Immat Gran (auto) 0.11 H (0.00-0.03) 10^3/uL Imm/Tot Granulo (auto) 0.8 H (0.0-0.5) % PT 46.2 H* (9.0-11.6) sec INR 5.12 H* Sodium 147 H (136-145) mmol/L Potassium 3.7 (3.5-5.1) mmol/L Chloride 107 (98-107) mmol/L Carbon Dioxide 34.6 H (21.0-32.0) mmol/L Anion Gap 9.1 BUN 37.0 H (7.0-18.0) mg/dL Creatinine 2.13 H (0.55-1.02) mg/dL Est GFR ( Amer) 27 L (>=60 mL/min/1.73m^2) Est GFR (Non-Af Amer) 22 L (>=60 mL/min/1.73m^2) BUN/Creatinine Ratio 17.4 Glucose 141 H (74-106) mg/dL Calcium 9.2 (8.5-10.1) mg/dL Total Bilirubin 0.2 (0.2-1.0) mg/dL AST 11 L (15-37) U/L ALT 15 (14-59) U/L Alkaline Phosphatase 95 (46-116) U/L NT-Pro-B Natriuret Pep 9883.0 H* (<=1800.0) pg/mL Total Protein 6.7 (6.4-8.2) g/dL Albumin 2.5 L (3.4-5.0) g/dL Globulin 4.2 g/dL Albumin/Globulin Ratio 0.6 Discharge Plan Discharge Chief Complaint: Shortness of Breath/Dyspnea Clinical Impression: Pneumonia, Supratherapeutic INR, CKD (chronic kidney disease), Elevated brain natriuretic peptide (BNP) level, Lymphedema, Increased oxygen demand Patient Disposition: Admitted As Inpatient Time of Disposition Decision: 12:22
[2024-11-07] MEDS: IPRATROPIUM/ALBUTEROL SULFATE 3 ML AMPUL.NEB IH ×3 (12:14→23:44)
[2024-11-07] MEDS: LEVOFLOXACIN IN DEXTROSE 5 % 750 MG/150 ML PREMIX 100 MG IV (12:19)
[2024-11-07] MEDS: METHYLPREDNISOLONE SOD SUCC PF 125 MG/2 ML VIAL IVP ×3 (12:19→23:39)
[2024-11-07 12:21] LABS: Lactate/Lactic Acid 0.5 mmol/L (0.4-2.0)
--- NOTE | 2024-11-07 13:03 | P.HP_ITS ---
HPI H&P: HPI History of Present Illness Chief complaint: WEAKNESS COUGHING Narrative: Patient having increasing cough and shortness of breath, she has chronic hypoxic respiratory failure requiring 2 L of supplemental oxygen, 2 L, when she presented to the emergency room her O2 sats were low at the low of 83% he had a bump that up to 4, on 4 L is doing better, patient did have some chest pressure type symptoms as well, off and on, she has had this for probably 2 to 3 weeks just progressively worse, no fevers but she is cold frequently and cough productive of sputum but unable to produce When I saw patient in the emergency room, resting comfortably in bed, maybe some mild conversational dyspnea no other complaints other than what is outlined as above Opioid HPI Opioid Management Most Recent Pain and Opioid Data: Last Pain Scale 5 Today, 10:58 Review of Systems ROS Status of ROS 10 or more systems reviewed and unremark able except as noted in history and below PFSH PFSH Social History Little interest or pleasure in doing things: not at all Feeling down, depressed, or hopeless: not at all Meds Home Medications and Allergies Home Medications ?Medication ?Instructions ?Recorded ?Confirmed ?Type albuterol sulfate 90 mcg/actuation 2 puff inhalation Q 4H PRN 05/08/23 11/07/24 History aerosol inhaler shortness of breath or wheez ing alendronate 70 mg tablet 70 mg PO .weekly 05/08/23 History bumetanide 1 mg tablet 1 mg PO DAILY 05/08/2311/07 History carvedilol 25 mg tablet 12.5 mg PO Q12H 05/08/23 History cholecalciferol (vitamin D3) 50 2,000 unit PO DAILY 11/07/24 History mcg (2,000 unit) capsule hydralazine 50 mg tablet 50 mg PO Q8H 05/08/23 History ipratropium 0.5 mg-albuterol 3 mg 1.5 ml inhalation Q4 H PRN 05/08/23 11/07/24 History (2.5 mg base)/3 mL nebulization shortness of breath or wheezing soln levothyroxine 100 mcg tablet 125 mcg PO DAILY 05/08/23 11/07/24 History (Euthyrox) loratadine 10 mg capsule 10 mg PO DAILY PRN allergy s ymptoms 05/08/23 11/07/24 History nifedipine 60 mg tablet,extended 60 mg PO DAILY 11/07/24 History release 24 hr omeprazole 20 mg capsule,delayed 20 mg PO DAILY 11/07/24 History release rosuvastatin 5 mg tablet 5 mg PO DAILY 05/08/2311/07 History acetaminophen 300 mg-codeine 30 mg 1 tab PO BID 11/07/24 History tablet amiodarone 200 mg tablet 200 mg PO DAILY 10/05/24 History ferrous sulfate 325 mg (65 mg 325 mg PO BID 10/05/24 0 11/07/24 History iron) tablet,delayed release fluticasone furoate 200 1 inh inhalation DAILY 10/0511/07/24 History mcg/actuation blister powder for inhalation semaglutide 0.25 mg or 0.5 mg (2 0.25 mg subcut QWEEK 10/05/24 11/07/24 History mg/3 mL) subcutaneous pen injector ([employer]) warfarin 2.5 mg tablet 2.5 mg PO .COMPLEX 10/05/24 11/07/24 History calcitriol 0.25 mcg capsule 0.25 mcg PO .COMPLEX 11/0711/07/24 History sodium zirconium cyclosilicate 10 10 g PO .COMPLEX 11/07/24 History gram oral powder packet ([employer]) vitamin B complex 1 cap PO DAILY 11/07/2410/18 History Allergies Allergy/AdvReac Type Severity Reaction Status Date / Time Penicillins Allergy Severe Unknown Verified 11/07/24 10:57 Sulfa (Sulfonamide Allergy Severe Unknown Verified 11/07/24 10:57 Antibiotics) sulfamethoxazole (From Allergy Severe Unknown Verified 11/07/24 10:57 Bactrim) trimethoprim (From Bactrim) Allergy Severe Unknown Verified 11/07/24 10:57 Exam Constitutional Vital Signs, click to edit/add: Last Vital Signs Temp 97.9 F 11/07/24 10:58 Pulse 75 11/07/24 12:30 Resp 25 H 11/07/24 12:30 BP 156/68 H 11/07/24 11:02 Pulse Ox 96 11/07/24 12:30 O2 Del Method Nasal Cannula 11/07/24 12:16 O2 Flow Rate 4 11/07/24 12:16 Documenting provider has reviewed patient's vital signs: yes Common normals: apparent distress (Mild conversational dyspnea) Chest Common normals: inspection of chest normal Respiratory Common normals: abnormal respiratory effort (Mild conversational dyspnea) Effort & inspection: able to speak in complete sentences Auscultation: rales and rhonchi Cardio Common normals: regular rate and regular rhythm; murmurs detected (Loud 4/6 murmur systolic) GI Common normals: negative for Normal to inspection, nondistended, normoactive bowel sounds present (Obese) Extremity Common normals: normal to inspection (3+ edema); clubbing, cyanosis or edema Results Labs Labs: Short CBC 11/07/24 Range/Units 11:19 WBC 13.0 H (4.0-11.0) 10^3/uL Hgb 9.9 L (12.0-16.0) g/dL Hct 33.4 L (36.0-48.0) % Plt Count 192 (150-450) 10^3/uL BMP 11/07/24 11:19 Sodium 147 H Potassium 3.7 Chloride 107 Carbon Dioxide 34.6 H BUN 37.0 H Creatinine 2.13 H Glucose 141 H Calcium 9.2 Liver Function 11/07/24 Range/Units 11:19 Total Bilirubin 0.2 (0.2-1.0) mg/dL AST 11 L (15-37) U/L ALT 15 (14-59) U/L Alkaline Phosphatase 95 (46-116) U/L Albumin 2.5 L (3.4-5.0) g/dL Assessment and Plan Assessment and Plan (1) Asthma exacerbation in COPD: (2) Increased oxygen demand: (3) Lymphedema: (4) Elevated brain natriuretic peptide (BNP) level: (5) CKD (chronic kidney disease): (6) Supratherapeutic INR: (7) Pneumonia: (8) Lumbar stenosis with neurogenic claudication: (9) Hyperglycemia: (10) Iron deficiency anemia: (11) Hypernatremia: (12) Chronic hypoxic respiratory failure: (13) Acute respiratory failure with hypoxia: (14) Moderate protein-calorie malnutrition: (15) Chronic kidney disease, stage III (moderate): (16) Atrial fibrillation: Plan Admission findings: Respiratory distress, uncontrolled hypertension with h ypertensive urgency resulting in acute combined congestive heart failure with severe hypoxia complicated by chronic hypoxic respiratory failure with significant leukocytosis although negative lactate would be consistent with sepsis Acute combined congestive heart failure likely related to pneumonia-IV Bumex, check echocardiogram Bilateral pneumonia causing acute exacerbation of COPD-white blood cell count elevated-IV antibiotics and aerosol treatments Chronic 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-rate controlled and is in normal sinus rhythm currently Coagulopathy secondary to Coumadin toxicity-repeat levels daily, no active sites of bleeding Iron deficiency anemia-monitor closely secondary to coagulopathy as outlined above Hypernatremia-diuresis likely to improve that Hyperglycemia-monitor daily Moderate protein calorie malnutrition-diet supplement Morbid obesity-diet management Hypertension-uncontrolled on admission-adjust medications monitor closely Hypothyroidism-check levels GERD-will use IV Protonix Hypercholesterolemia-continue with home medications Chronic lumbar radiculopathy-his home medications Admission status: Patient with acute hypoxic respiratory failure complicated by chronic hypoxic respiratory failure due to acute combined congestive heart failure complicated by bilateral pneumonia, medically necessary treatment will s taylor 2 midnights. Inpatient status
--- NOTE | 2024-11-07 13:14 | CA_ITS ---
Patient Name: JONATHAN HILL MR#: [id number] : 1940 Exam Date: 11/08/2024 Ordering Doctor: DR JESSICA RILEY . ECHOCARDIOGRAM REPORT PROCEDURE: CA ECHO DOPPLER COMPLETE INDICATIONS: Dyspnea COMPARISON: None. DESCRIPTION: COMPLETE ECHOCARDIOGRAM Real-time transthoracic echocardiography with 2D, M-mode, spectral and color flow Doppler performed. QUALITY: Technical quality was good. LEFT VENTRICLE: Normal chamber size. Moderate to severe concentric left ventricular hypertrophy. The septal motion is abnormal likely related to bundle branch block. Global left ventricular systolic function is normal. LV EF: Estimated left ventricular ejection fraction is 55-60 %. DIASTOLIC: Grade I diastolic dysfunction. ATRIAL SEPTUM: LEFT ATRIUM: Severe dilatation. RIGHT ATRIUM: Moderate dilatation. RIGHT VENTRICLE: Moderate dilatation. Mildly reduced right ventricular systolic function. TRICUSPID VALVE: Normal mobility and thickness. No stenosis with mild regurgitation. Severe pulmonary hypertension. RVSP 60 mmHg. MITRAL VALVE: Normal mobility and thickness. No evidence of mitral valve stenosis. There is no mitral annular calcification. Trivial mitral regurgitation. AORTIC VALVE: Normal trileaflet appearance. Thickened aortic valve. Normal leaflet mobility. No evidence of aortic valve stenosis. No aortic regurgitation. AORTIC ROOT: Normal diameter and appearance, measuring 3.6 cm. The ascending aorta is normal in size measuring 3.6 cm. PULMONIC VALVE: Normal thickness and mobility. No stenosis. Mild regurgitation. The main Pulmonary artery is severely dilated at 5.2 cm. PERICARDIUM: No evidence of pericardial effusion. IVC: Collapses with inspiration. Mildly dilated measuring 2.4 cm. PLEURA: CONCLUSION: 1. Moderate to severe concentric left ventricular hypertrophy with normal systolic function. LVEF is estimated at 55 to 60%. 2. Moderately dilated right ventricle with mildly reduced systolic function. 3. Moderate severe biatrial dilatation. 4. Mild diastolic dysfunction. 5. Mild tricuspid and pulmonic regurgitation. 6. Severe pulmonary hypertension, RVSP is 60 mmHg. 7. Severely dilated pulmonary artery, measuring up to 5.2 cm. 8. Further imaging is recommended to further characterize the pulmonary artery such as cardiac CT angiogram or MRI. Adult Echocardiography Procedure Report Left Ventricle LVEDD (3.7 - 5.6 cm): 3.86 cm LVESD (2.2 - 4.0 cm): 3.63 cm LVIVS thickness (0.6 - 1.2 cm): 1.69 cm LVPW thickness (0.5 - 1.0 cm): 1.62 cm LVOT Max Gradient: 7.23 mm[Hg] LVOT Area (cm2): 1.34 m/s Peak Velocity (LVOT): 1.34 m/s Mean Velocity (LVOT): 0.88 m/s LVOT Diameter 2.18 cm Left Ventricular Ejection Fraction: 55-60% Left Atrium LA Volume Index (2D A2C): 59.30 ml/m2 Left Atrium Systolic Dimension: 4.66 cm Mitral Valve MV E to A Ratio: 0.82, 0.75 Mitral Valve A-Wave Peak Velocity: 1.01 m/s Mitral Valve E-Wave Peak Velocity: 0.79 m/s Right Ventricle RV Internal Diastolic Dimension: 5.51 cm Aorta AO Root Diam: 3.59 cm Ascending Ao Diam: 3.62 cm Aortic Valve AoV Area (Peak Link): 2.82 cm2, 2.68 cm2 AoV Area (VTI): 2.59 cm2, 2.55 cm2 Peak Velocity(Antegrade Flow): 1.87 m/s, 1.68 m/s Peak Gradient(Antegrade Flow): 13.92 mm[Hg], 11.28 mm[Hg] Mean Velocity(Antegrade Flow): 1.19 m/s, 1.15 m/s Mean Gradient(Antegrade Flow): 6.60 mm[Hg], 5.86 mm[Hg] Velocity Time Integral: 40.23 cm, 38.87 cm Tricuspid Valve Peak Velocity (Regurgitant Flow): 3.56 m/s, 3.54 m/s, 3.60 m/s, 3.53 m/s Pulmonic Valve Mean Gradient: 9.12 mm[Hg], 4.08 mm[Hg] Mean Velocity: 1.45 m/s, 0.95 m/s Peak Velocity: 1.69 m/s Peak Gradient: 14.75 mm[Hg], 8.42 mm[Hg] Right Atrium Right Atrium Systolic Pressure: 94.40 ml, 94.40 ml Dictated by: Kenyon Taylor M.D. on 11/08/2024 at 17:14 Approved by: Kenyon Taylor M.D. on 11/08/2024 at 17:23
[2024-11-07 13:46] LABS: Magnesium 2.3 mg/dL (1.8-2.4); Thyroid Stimulating Hormone 2.116 uIU/mL (0.358-3.740)
[2024-11-07 13:48] LABS: Troponin I High Sensitivity 24.1 pg/mL (4.0-51.3)
[2024-11-07 14:10] LABS: Internal Control Within Normal Limits; Respiratory Syncytial Virus Not Detected (NOT DETECTE)
[2024-11-07 14:11] LABS: Influenza Virus A Antigen Negative; Influenza Virus B Antigen Negative; Internal Control Within Normal Limits; SARS-CoV-2 Ag NEGATIVE (NEGATIVE)
--- OUTSIDE RECORDS SUMMARY | 2024-11-07 14:17 | XMS_ITS | CCD ---
Author Organization [facility] Team Providers Care Sr. Manager Marketing Name Role Phone Chester Lin Unavailable Rin Ramirez Unavailable Ronaldfabricio Marixa Unavailable Becca Rodriguez Unavailable ELAINE, ANIKA Primary Care Unavailable ELAINE, ANIKA Admitting Unavailable ELAINE, ANIKA Attending Unavailable ELAINE, ANIKA Consulting Unavailable ELAINE, ANIKA Primary Care Unavailable HEATHERSRIN Attending Unavailable BAKHOUS, AZIZ Consulting Unavailable BAKHOUS, AZIZ Admitting Unavailable Elaine, SEED SPECIALIST-C Anika Deepa Primary Care Provider MD Rin Ramirez Attending Provider Cole Henry MD Primary Care Provider Elaine ANESTHESIOLOGIST ATTENDING-DISTRIBUTOR ADVERTISING MATERIAL, Anika S Primary Care Provider ANITA MCCOY Attending Unavailable ELAINE, ANIKA S Referring Unavailable ELAINE, ANIKA S Primary Care Unavailable ANITA MCCOY Attending Unavailable ELAINE, ANIKA S Referring Unavailable ELAINE, ANIKA S Primary Care Unavailable Cole Henry MD Primary Care Provider Elaine ANESTHESIOLOGIST ATTENDING-DISTRIBUTOR ADVERTISING MATERIAL, Anika S Primary Care Provider Elaine Anika Deepa Primary Care Unavailable Rin Ramirez Attending Unavailable HeathersDomingoiz Admitting Unavailable Elaine SEED SPECIALIST-C, Anika Deepa Primary Care Provider Rin Ramirez MD Attending Provider Jalil PLUNKETT, Marie Chappell Attending Unavailable GOLD [...] Inhibitors (1 source) Lisinopril Drug Allergy 11-18-19 [facility] Penicillins (antibiotic) (1 source) Penicillins Drug Allergy 11-18-19 24 [facility] Sulfonamides (antibiotic) (1 source) Sulfonamides (Antibiotic) Drug Allergy 11-18-19 24 [facility] (20 sources) Lisinopril Drug Allergy 04-22-20 23 cough [facility] (20 sources) Penicillins (Antibiotic) Propensity to adverse reactions [facility] [employer] Other (20 sources) Sulfonamides (Antibiotic) Propensity to adverse reactions [facility] [employer] Other (20 sources) Penicillins; Translations: [PENICILLINS] Drug allergy (disorder) 04-05-20 16 [facility] Repository (1 source) Sulfonamides (Antibiotic) Drug allergy (disorder) 06-04-19 21 [facility] Repository (20 sources) Sulfonamides (Antibiotic); Translations: [SULFA (SULFONAMIDE ANTIBIOTICS)] Allergy to substance 04-05-20 16 [facility] (6 sources) Penicillins Propensity to adverse reactions 11-21-19 23 [facility] (20 sources) Sulfamethoxazole / Trimethoprim; Translations: [SULFAMETHOXAZOLE-T RIMETHOPRIM] Drug Allergy 06-27-19 20 [facility] (6 sources) Sulfonamides (Antibiotic) Propensity to adverse reactions 11-21-19 23 [facility] (20 sources) Angiotensin-convert ing enzyme inhibitor agent; Translations: [JANETH INHIBITORS] Propensity to adverse reactions to drug 05-09-20 23 Other (See Comments) [facility] (20 sources) celecoxib; Translations: [CELECOXIB] Drug Allergy 05-09-20 23 Other (See Comments) [facility] (20 sources) Ibuprofen; Translations: [IBUPROFEN] Drug Allergy 05-09-20 23 GI Disturbance [facility] (6 sources) Penicillins Propensity to adverse reactions to drug 04-05-20 16 [facility] (9 sources) Penicillins Propensity to adverse reactions to drug 04-05-20 16 [facility] (1 source) Lisinopril Drug Allergy 08-18-19 25 [facility] Repository (1 source) Penicillins Drug allergy (disorder) 08-18-19 [facility] Repository Medications Current Medications Medication Drug Class(es) Dates Sig (Normalized) Sig (Original) [id number] 200 actuat albuterol 0.09 mg/actuat metered dose inhaler (20 sources) beta2-Adrenergic Agonist Start: 09-15-2023 take 2 puff(s) by inhalation every six hours as needed for wheezing albuterol (PROVENTIL HFA;VENTOLIN HFA) 90 mcg/actuation inhaler Indications: Shortness of breath , Chronic obstructive pulmonary disease, unspecified [place] Inhale 2 puffs every 6 (six) hours [...] mL nebulizer Indications: COPD with acute exacerbation [place] Inhale 3 mL by nebulization every [...] mg tablet Indications: PAF (paroxysmal 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) ([facility] Take 1 tablet (200 mg total) by [...] 24 hrs for 90 days Active calcitriol 0.00263 mg oral capsule (20 sources) Vitamin D3 [...] Start: 08-13-2023 take 2000 [IU] by mo [facility] once daily Ergocalciferol (Vitamin D2) Active 2000 [...] Indications: PAF (paroxysmal atrial fibrillation) (CMS-HCC) , 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 take 1 tablet by mouth in the morning 90 tablet 2 01/09/2024 Active Start: 08-13-2023 take 1 capsule by mo [facility] once daily Levothyroxine 125 mcg capsule Active [...] tablet 3 09/10/2024 Active sodium zirconium cyclosilicate 46707 mg powder for oral suspension (20 sources) [...] Ochoa-Epbx (Retacrit) 20,000 unit/2 mL solution Discontinued 16757 UNIT SUBCUT 3 Times a week 77.985 90 September 08, 2023 11:00pm September 23, 2023 9:48am Start: 09-09-2023 End: 09-23-2023 Epoetin Ochoa-Epbx (Retacrit) 20,000 unit/2 mL solution Discontinued 60668 UNIT SUBCUT 3 Times a week 77.985 90 September 09, 2023 12:00am September 23, 2023 10:48am Start: 09-09-2023 Epoetin Ochoa-E pbx (Retacrit) 20,000 unit/2 mL solution Active 93904 UNIT SUBCUT 3 Times a week 77.985 [...] sources) Long-term current use of insulin; Translations: [parts counterman (current) use of insulin] Episodic Other aftercare (4 sources) care home (current) use of insulin Onset: 2 Resolved: 2 Episodic Other aftercare (2 sources) Drug therapy finding; Translations: [Other nursing home (current) drug therapy] 05-10-2024 Episodic Other aftercare [...] 05-09-2023 05-09-2023 Other aftercare (1 source) Other director long term care (current) drug therapy; Translations: [Other director long term care (current) drug therapy] Onset: 06-16-2024 Episodic Other [...] time] 2.2 {INR} Abnormal 0.8 - 1.2 [facility] Interpretation and review of laboratory results Abnormal [facility] Erythrocyte distribution wid th Auto (RBC) [Ratio]on 10-22-2024 Erythrocyte distribution width (RBC) [Ratio] Erythrocyte distribution width [Ratio] by Automated count 11.0-15.0 [facility] Hematocrit Auto (Bld) [Volum e fraction]on 10-22-2024 Hematocrit (Bld) [Volume fraction] Hematocrit [Volume Fraction] of Blood by Automated count Low 36.0-48.0 [facility] Hemoglobin [Mass/volume] in Bloodon 10-22-2024 Hemoglobin (Bld) [Mass/Vol] Hemoglobin [Mass/volume] in Blood Low 12.0-16.0 [facility] Leukocytes [#/volume] correc katy for nucleated erythrocytes in Blood by Automated counon 10-22-2024 WBC corrected for nucl RBC Auto (Bld) [#/Vol] Leukocytes [#/volume] corrected for nucleated erythrocytes in Blood by Automated coun 4.0-11.0 [facility] MCH Auto (RBC) [Entitic mass ]on 10-22-2024 MCH (RBC) [Entitic mass] MCH [Entitic mass] by Automated count 26.7-34.0 [facility] MCHC Auto (RBC) [Mass/Vol]on 10-22-2024 MCHC (RBC) [Mass/Vol] MCHC [Mass/volume] by Automated count Low 29.9-35.2 [facility] MCV Auto (RBC) [Entitic vol] on 10-22-2024 MCV (RBC) [Entitic vol] MCV [Entitic volume] by Automated count High 81.0-99.0 [facility] Platelet mean volume Auto (B ld) [Entitic vol]on 10-22-2024 Platelet mean volume (Bld) [Entitic vol] Platelet mean volume [Entitic volume] in Blood by Automated count 9.5-13.5 [facility] Platelets Auto (Bld) [#/Vol] on 10-22-2024 Platelets (Bld) [#/Vol] Platelets [#/volume] in Blood by Automated count 150-450 [facility] RBC Auto (Bld) [#/Vol]on RBC (Bld) [#/Vol] Erythrocytes [#/volu me] in Blood by Automated count Low 4.20-5.40 [facility] Erythrocyte distribution wid th Auto (RBC) [Ratio]on 09-29-2024 Erythrocyte distribution width (RBC) [Ratio] Erythrocyte distribution width [Ratio] by Automated count 11.0-15.0 [facility] Estimated glomerular filtrat ion rate (GFR) non- Americanon 09-29-2024 GFR/1.73 sq M.predicted among non-blacks MDRD (S/P/Bld) [Vol rate/Area] Estimated glomerular filtration rate (GFR) non- Low >=60 mL/min/1.7 3m 2 [facility] Hematocrit Auto (Bld) [Volum e fraction]on 09-29-2024 Hematocrit (Bld) [Volume fraction] Hematocrit [Volume Fraction] of Blood by Automated count Low 36.0-48.0 [facility] Hemoglobin [Mass/volume] in Bloodon 09-29-2024 Hemoglobin (Bld) [Mass/Vol] Hemoglobin [Mass/volume] in Blood Low 12.0-16.0 [facility] Iron binding capacity [Mass/ volume] in Serum or Plasmaon 09-29-2024 Iron binding capacity [Mass/Vol] Iron binding capacity [Mass/volume] in Serum or Plasma Low 250.0-450. 0 [facility] Iron saturation [Mass Fracti on] in Serum or Plasmaon 09-29-2024 Iron saturation [Mass fraction] Iron saturation [Mass Fraction] in Serum or Plasma [facility] Laboratory - Chemistry and C hemistry - challengeon 09-29-2024 Albumin [Mass/Vol] 3.0 g/dL Low 3.4-5.0 [facility] Calcium [Mass/Vol] 9.0 mg/dL 8.5-10.1 [facility] Chloride [Moles/Vol] 107 mmol/L 98-107 [facility] CO2 [Moles/Vol] 31.4 mmol/L 21.0-32.0 [facility] Creatinine [Mass/Vol] 2.55 mg/dL High 0.55-1.02 [facility] Ferritin [Mass/Vol] 197.0 ng/mL 8.0-252.0 [facility] GFR/1.73 sq M.predicted MDRD (S/P/Bld) [Vol rate/Area] 22 mL/min/{1.73_m2} Low >=60 mL/min/1.7 3m 2 [facility] Glucose [Mass/Vol] 100 mg/dL 74-106 [facility] Iron [Mass/Vol] 62.0 ug/dL 50.0-170.0 [facility] Potassium [Moles/Vol] 4.4 mmol/L 3.5-5.1 [facility] Sodium [Moles/Vol] 142 mmol/L 136-145 [facility] Urate [Mass/Vol] 6.8 mg/dL High 2.6-6.0 [facility] Urea nitrogen [Mass/Vol] 57.0 mg/dL High 7.0-18.0 [facility] Urea nitrogen/Creatinine [Mass ratio] 22.4 mg/mg [facility] Leukocytes [#/volume] correc akty for nucleated erythrocytes in Blood by Automated counon 09-29-2024 WBC corrected for nucl RBC Auto (Bld) [#/Vol] Leukocytes [#/volume] corrected for nucleated erythrocytes in Blood by Automated coun Low 4.0-11.0 [facility] MCH Auto (RBC) [Entitic mass ]on 09-29-2024 MCH (RBC) [Entitic mass] MCH [Entitic mass] by Automated count 26.7-34.0 [facility] MCHC Auto (RBC) [Mass/Vol]on 09-29-2024 MCHC (RBC) [Mass/Vol] MCHC [Mass/volume] by Automated count Low 29.9-35.2 [facility] MCV Auto (RBC) [Entitic vol] on 09-29-2024 MCV (RBC) [Entitic vol] MCV [Entitic volume] by Automated count High 81.0-99.0 [facility] No Panel Informationon 09-29 25-Hydroxy Vitamin D Total 17.6 ng/mL [facility] Comment on above: <20 ng/mL Vit D defi cient20-<30 ng/mL Vit D [id number] ng/mL Vit D sufficient>100 ng/mL Potential Toxicity Parathyroid Hormone (Intact) 80 pg/mL Abnormal [facility] Comment on above: Performed at: [facility] [employer] [place] [id number] Director: Deshaun Hunter PhD, Phone: [phone] Phosphorus Level 3.9 mg/dL 2.6-4.7 [facility] Platelet mean volume Auto (B ld) [Entitic vol]on 09-29-2024 Platelet mean volume (Bld) [Entitic vol] Platelet mean volume [Entitic volume] in Blood by Automated count 9.5-13.5 [facility] Platelets Auto (Bld) [#/Vol] on 09-29-2024 Platelets (Bld) [#/Vol] Platelets [#/volume] in Blood by Automated count 150-450 [facility] RBC Auto (Bld) [#/Vol]on RBC (Bld) [#/Vol] Erythrocytes [#/volu me] in Blood by Automated count Low 4.20-5.40 [facility] Serum or plasma anion gap de terminationon 09-29-2024 Anion gap [Moles/Vol] Serum or plasma an ion gap determination [facility] POCT Protime / INRon 025 INR Coag (PPP) [Relative time] 1.9 {INR} Abnormal 0.8 - 1.2 [employer] Interpretation and review of laboratory results Abnormal [facility] POCT Protime / INRon 025 INR Coag (PPP) [Relative time] 3.1 {INR} Abnormal 0.8 - 1.2 [facility] Interpretation and review of laboratory results Abnormal [facility] Erythrocyte distribution wid th Auto (RBC) [Ratio]on 09-02-2024 Erythrocyte distribution width (RBC) [Ratio] Erythrocyte distribution width [Ratio] by Automated count High 11.0-15.0 [facility] Hematocrit Auto (Bld) [Volum e fraction]on 09-02-2024 Hematocrit (Bld) [Volume fraction] Hematocrit [Volume Fraction] of Blood by Automated count Low 36.0-48.0 [facility] Hemoglobin [Mass/volume] in Bloodon 09-02-2024 Hemoglobin (Bld) [Mass/Vol] Hemoglobin [Mass/volume] in Blood Low 12.0-16.0 [facility] Leukocytes [#/volume] correc katy for nucleated erythrocytes in Blood by Automated counon 09-02-2024 WBC corrected for nucl RBC Auto (Bld) [#/Vol] Leukocytes [#/volume] corrected for nucleated erythrocytes in Blood by Automated coun 4.0-11.0 [facility] MCH Auto (RBC) [Entitic mass ]on 09-02-2024 MCH (RBC) [Entitic mass] MCH [Entitic mass] by Automated count 26.7-34.0 [facility] MCHC Auto (RBC) [Mass/Vol]on 09-02-2024 MCHC (RBC) [Mass/Vol] MCHC [Mass/volume] by Automated count 29.9-35.2 [facility] MCV Auto (RBC) [Entitic vol] on 09-02-2024 MCV (RBC) [Entitic vol] MCV [Entitic volume] by Automated count 81.0-99.0 [facility] Platelet mean volume Auto (B ld) [Entitic vol]on 09-02-2024 Platelet mean volume (Bld) [Entitic vol] Platelet mean volume [Entitic volume] in Blood by Automated count 9.5-13.5 [facility] Platelets Auto (Bld) [#/Vol] on 09-02-2024 Platelets (Bld) [#/Vol] Platelets [#/volume] in Blood by Automated count 150-450 [facility] RBC Auto (Bld) [#/Vol]on RBC (Bld) [#/Vol] Erythrocytes [#/volu me] in Blood by Automated count Low 4.20-5.[address] [facility] [address] abdomen pelvis wo conon 0 09-01-2024 CT abdomen pelvis wo con [facility] [employer] [address] [place] [address] CT Scan Report Signed Patient: Margie Martínez MR#: [id number] : 1940 Acct:[id number] Age/Sex: 84 / F ADM Date: 09/01/24 Loc: [facility] Room: Type: [facility] Attending Dr: Rin Ramirez MD Copies [...] Urias Jr., D.OAzar09/01/2024 10:59 AM Dictation Location: [place] [address] Transcribed By: [facility] 09/01/24 1059 Dictated By: Kj Urias Jr, DO 09/01/24 1056 Signed By: 09/01/24 1059 Normal [facility] COMPLETE BLOOD COUNTon 08-25 Erythrocyte distribution width (RBC) [Ratio] 16.8 % High 11.5-15.0 [facility] Comment on above: Performed By: #### Thuy MAGDALENO [facility], , , THYR #### [facility] ([id number]) [address], [address] [place] [address] Hematocrit (Bld) [Volume fraction] 32.8 % Low 35-47 [facility] Comment on above: Performed By: #### Thuy MAGDALENO [facility], , , THYR #### [facility] ([id number]) [address], [address] [place] [address] Hemoglobin (Bld) [Mass/Vol] 10.6 g/dL Low 11.7-15.5 [facility] Comment on above: Performed By: #### Thuy MAGDALENO [facility], , , THYR #### [facility] ([id number]) [address], [address] [place] [address] MCH (RBC) [Entitic mass] 30.4 pg Normal 27-34 [facility] Comment on above: Performed By: #### Thuy MAGDALENO [facility], , , THYR #### [facility] ([id number]) [address], [address] [place] [address] MCHC (RBC) [Mass/Vol] 32.3 g/dL Normal 32-36 [facility] Comment on above: Performed By: #### Thuy BC, [facility], 71366-1, , THYR #### [facility] ([id number]) [address], [address] [place] [address] MCV (RBC) [Entitic vol] 94 fL Normal 80-100 [facility] Comment on above: Performed By: #### Thuy BC, CMP, , , THYR #### [facility] ([id number]) [address], [address] [place] [address] Platelet mean volume (Bld) [Entitic vol] 7.9 fL Normal 7-12 [facility] Comment on above: Performed By: #### Thuy MAGDALENO, [facility], , , THYR #### [facility] ([id number]) [address], [address] [place] [address] Platelets (Bld) [#/Vol] 222 10*3/uL Normal 150-450 [facility] Comment on above: Performed By: #### Thuy BC, CMP, , , THYR #### [facility] ([id number]) [address], [address] [place] [address] RBC COUNT 3.48 X10E12/L Low 3.80-5.20 [facility] Comment on above: Performed By: #### Thuy BC, CMP, , , THYR #### [facility] ([id number]) [address], [address] [place] [address] WBC (Bld) [#/Vol] 5.7 10*3/uL Normal 4.0-11.0 [facility] Comment on above: Performed By: #### Thuy BC, CMP, , , THYR #### [facility] ([id number]) [address], [address] [place] [address] COMPREHENSIVE METABOLIC PANE Nahun 08-25-2024 Albumin [Mass/Vol] 3.7 g/dL Normal 3.2-5.3 [facility] Comment on above: Performed By: #### C BC, CMP, 14288-1, , THYR #### [facility] ([id number]) [address] [place] [address] ALP [Catalytic activity/Vol] 97 U/L Normal 39-130 [facility] Comment on above: Performed By: #### C BC, CMP, 10516-9, , THYR #### [facility] ([id number]) [address], [address] [place] [address] ALT [Catalytic activity/Vol] 9 U/L Normal 0-31 [facility] Comment on above: Performed By: #### Thuy BC, CMP, 21445-6, , THYR #### [facility] ([id number]) [address], [address] [place] [address] Anion gap [Moles/Vol] 12 mmol/L Normal 5-15 [facility] Comment on above: Performed By: #### Thuy BC, CMP, 14745-0, , THYR #### [facility] ([id number]) [address], [address] [place] [address] AST [Catalytic activity/Vol] 10 U/L Normal 0-41 [facility] Comment on above: Performed By: #### C BC, CMP, 73423-6, , THYR #### [facility] ([id number]) [address], [address] [place] [address] Bilirubin [Mass/Vol] 0.3 mg/dL Normal 0.3-1.2 [facility] Comment on above: Performed By: #### C SHARLA, [facility], 91499-4, , THYR #### [facility] ([id number]) [address], [address] [place] [address] Calcium [Mass/Vol] 9.1 mg/dL Normal 8.5-10.5 [facility] Comment on above: Performed By: #### Thuy MAGDALENO, [facility], 50826-5, , THYR #### [facility] ([id number]) [address], [address] [place] [address] Chloride [Moles/Vol] 104 mmol/L Normal 98-109 [facility] Comment on above: Performed By: #### Thuy MAGDALENO, [facility], 89139-9, , THYR #### [facility] ([id number]) [address], [address] [place] [address] CO2 [Moles/Vol] 26 mmol/L Normal 22-32 [facility] Comment on above: Performed By: #### Thuy MAGDALENO, [facility], 94504-7, , THYR #### [facility] ([id number]) [address], [address] [place] [address] Creatinine [Mass/Vol] 2.93 mg/dL High 0.40-1.00 [facility] Comment on above: Result Comment: METH OD TRACEABLE TO IDMS STANDARD Performed By: #### Thuy MAGDALENO, [facility], 29597-4, , THYR #### [facility] ([id number]) [address], [address] [place] [address] GFR/1.73 sq M.predicted among non-blacks MDRD (S/P/Bld) [Vol rate/Area] 15 mL/min/{1.73_m2} Low >59 [facility] Comment on above: Result Comment: Reported eGFR is based on the CKD-EPI 2020 equation that does not use a race coefficient. Performed By: #### C SHARLA, [facility], 23643-6, , THYR #### [facility] ([id number]) [address], [address] [place] [address] Glucose [Mass/Vol] 83 mg/dL Normal 65-99 [facility] Comment on above: Performed By: #### Thuy MAGDALENO, [facility], 87669-1, , THYR #### [facility] ([id number]) [address], [address] [place] [address] Potassium [Moles/Vol] 4.4 mmol/L Normal 3.5-5.0 [facility] Comment on above: Performed By: #### Thuy MAGDALENO, [facility], 66885-8, , THYR #### [facility] ([id number]) [address], [address] [place] [address] Protein [Mass/Vol] 6.5 g/dL Normal 6.0-8.0 [facility] Comment on above: Performed By: #### Thuy MAGDALENO, [facility], , , THYR #### [facility] ([id number]) [address], [address] [place] [address] Sodium [Moles/Vol] 142 mmol/L Normal 134-146 [facility] Comment on above: Performed By: #### Thuy MAGDALENO, [facility], , , THYR #### [facility] ([id number]) [address], [address] [place] [address] Urea nitrogen [Mass/Vol] 48 mg/dL High 5-27 [facility] Comment on above: Performed By: #### Thuy MAGDALENO, [facility], 61590-1, , THYR #### [facility] ([id number]) [address], [address] [place] [address] Lipid 1996 panelon 5 Cholesterol [Mass/Vol] 100 mg/dL Low 150-200 [facility] Comment on above: Performed By: ###Sangeeta MAGDALENO, [facility], , , THYR #### [facility] ([id number]) [address], [address] [place] [address] Cholesterol in HDL [Mass/Vol] 37 mg/dL Low >39 [facility] Comment on above: Result Comment: HDL <40 mg/dL - High Risk HDL > or = 40mg/dL- Desirable HDL >60 mg/dL - Negative Risk Performed By: ###Sangeeta MAGDALENO, [facility], , , THYR #### [facility] ([id number]) [address], [address] [place] [address] Cholesterol in LDL [Mass/Vol] 38 mg/dL Normal <130 [facility] Comment on above: Result Comment: LDL <100 mg/dL - Desirable LDL >160 mg/dL - High Risk Performed By: ###Sangeeta MAGDALENO, ELIDA, , , THYR #### [facility] ([id number]) [address] [place] [address] Cholesterol in VLDL [Mass/Vol] 25 mg/dL Normal 0-30 [facility] Comment on above: Performed By: ###Sangeeta MAGDALENO, CMP, , , THYR #### [facility] ([id number]) [address], [address] [place] [address] CHOLESTEROL:HDL 2.7 Normal 1.0-5.0 [facility] Comment on above: Performed By: ###Sangeeta Daley SHARLA, [facility], 85271-9, , THYR #### [facility] ([id number]) [address], [address] [place] [address] Triglyceride [Mass/Vol] 127 mg/dL Normal 27-150 [facility] Comment on above: Performed By: #### Thuy MAGDALENO, [facility], 66637-0, , THYR #### [facility] ([id number]) [address], [address] [place] [address] MAGNESIUMon 08-25-2024 Magnesium [Mass/Vol] 2.4 mg/dL Normal 1.8-2.6 [facility] Comment on above: Performed By: #### Thuy MAGDALENO, [facility], 33923-0, , THYR #### [facility] ([id number]) [address] [place] [address] THYROID PROFILEon 08-25-2024 Free T4 [Mass/Vol] 1.29 ng/dL Normal 0.61-1.60 [facility] Comment on above: Performed By: #### Thuy MAGDALENO, [facility], [id number], , THYR #### [facility] ([id number]) [address], [address] [place] [address] TSH 3.65 uIU/mL Normal 0.49-4.67 [facility] Comment on above: Performed By: #### Thuy MAGDALENO, [facility], [id number], , THYR #### [facility] ([id number]) [address], [address] [place] [address] POCT Protime / INRon 08-24-2 025 INR Coag (PPP) [Relative time] 3.7 {INR} Abnormal 0.8 - 1.2 [facility] Interpretation and review of laboratory results Abnormal [facility] POCT Protime / INRon 08-05-2 025 INR Coag (PPP) [Relative time] 3.5 {INR} Abnormal 0.8 - 1.2 [facility] Interpretation and review of laboratory results Abnormal [facility] [employer] [employer] [facility] Erythrocyte distribution wid th Auto (RBC) [Ratio]on 08-04-2024 Erythrocyte distribution width (RBC) [Ratio] Erythrocyte distribution width [Ratio] by Automated count High 11.0-15.0 [facility] Estimated glomerular filtrat ion rate (GFR) non- Americanon 08-04-2024 GFR/1.73 sq M.predicted among non-blacks MDRD (S/P/Bld) [Vol rate/Area] Estimated glomerular filtration rate (GFR) non- Low >=60 mL/min/1.7 3m 2 [facility] Hematocrit Auto (Bld) [Volum e fraction]on 08-04-2024 Hematocrit (Bld) [Volume fraction] Hematocrit [Volume Fraction] of Blood by Automated count Low 36.0-48.0 [facility] Hemoglobin [Mass/volume] in Bloodon 08-04-2024 Hemoglobin (Bld) [Mass/Vol] Hemoglobin [Mass/volume] in Blood Low 12.0-16.0 [facility] Laboratory - Chemistry and C hemistry - challengeon 08-04-2024 Albumin [Mass/Vol] 3.2 g/dL Low 3.4-5.0 [facility] Calcium [Mass/Vol] 8.9 mg/dL 8.5-10.1 [facility] Chloride [Moles/Vol] 105 mmol/L 98-107 [facility] CO2 [Moles/Vol] 29.7 mmol/L 21.0-32.0 [facility] Creatinine [Mass/Vol] 2.73 mg/dL High 0.55-1.02 [facility] GFR/1.73 sq M.predicted MDRD (S/P/Bld) [Vol rate/Area] 20 mL/min/{1.73_m2} Low >=60 mL/min/1.7 3m 2 [facility] Glucose [Mass/Vol] 122 mg/dL High 74-106 [facility] Potassium [Moles/Vol] 4.6 mmol/L 3.5-5.1 [facility] Sodium [Moles/Vol] 141 mmol/L 136-145 [facility] Urea nitrogen [Mass/Vol] 43.0 mg/dL High 7.0-18.0 [facility] Urea nitrogen/Creatinine [Mass ratio] 15.8 mg/mg [facility] Leukocytes [#/volume] correc katy for nucleated erythrocytes in Blood by Automated counon 08-04-2024 WBC corrected for nucl RBC Auto (Bld) [#/Vol] Leukocytes [#/volume] corrected for nucleated erythrocytes in Blood by Automated coun 4.0-11.0 [facility] MCH Auto (RBC) [Entitic mass ]on 08-04-2024 MCH (RBC) [Entitic mass] MCH [Entitic mass] by Automated count 26.7-34.0 [facility] MCHC Auto (RBC) [Mass/Vol]on 08-04-2024 MCHC (RBC) [Mass/Vol] MCHC [Mass/volume] by Automated count 29.9-35.2 [facility] MCV Auto (RBC) [Entitic vol] on 08-04-2024 MCV (RBC) [Entitic vol] MCV [Entitic volume] by Automated count 81.0-99.0 [facility] No Panel Informationon 08-04 Phosphorus Level 3.6 mg/dL 2.6-4.7 [facility] Platelet mean volume Auto (B ld) [Entitic vol]on 08-04-2024 Platelet mean volume (Bld) [Entitic vol] Platelet mean volume [Entitic volume] in Blood by Automated count 9.5-13.5 [facility] Platelets Auto (Bld) [#/Vol] on 08-04-2024 Platelets (Bld) [#/Vol] Platelets [#/volume] in Blood by Automated count 150-450 [facility] RBC Auto (Bld) [#/Vol]on RBC (Bld) [#/Vol] Erythrocytes [#/volu me] in Blood by Automated count Low 4.20-5.40 [facility] Serum or plasma anion gap de terminationon 08-04-2024 Anion gap [Moles/Vol] Serum or plasma an ion gap determination [facility] Erythrocyte distribution wid th Auto (RBC) [Ratio]on 07-20-2024 Erythrocyte distribution width (RBC) [Ratio] Erythrocyte distribution width [Ratio] by Automated count High 11.0-15.0 [facility] Estimated glomerular filtrat ion rate (GFR) non- Americanon 07-20-2024 GFR/1.73 sq M.predicted among non-blacks MDRD (S/P/Bld) [Vol rate/Area] Estimated glomerular filtration rate (GFR) non- Low >=60 mL/min/1.7 3m 2 [facility] Hematocrit Auto (Bld) [Volum e fraction]on 07-20-2024 Hematocrit (Bld) [Volume fraction] Hematocrit [Volume Fraction] of Blood by Automated count Low 36.0-48.0 [facility] Hemoglobin [Mass/volume] in Bloodon 07-20-2024 Hemoglobin (Bld) [Mass/Vol] Hemoglobin [Mass/volume] in Blood Low 12.0-16.0 [facility] Iron binding capacity [Mass/ volume] in Serum or Plasmaon 07-20-2024 Iron binding capacity [Mass/Vol] Iron binding capacity [Mass/volume] in Serum or Plasma Low 250.0-450. 0 [facility] Iron saturation [Mass Fracti on] in Serum or Plasmaon 07-20-2024 Iron saturation [Mass fraction] Iron saturation [Mass Fraction] in Serum or Plasma [facility] - Chemistry and C hemistry - challengeon 07-20-2024 Albumin [Mass/Vol] 3.1 g/dL Low 3.4-5.0 [facility] Calcium [Mass/Vol] 8.5 mg/dL 8.5-10.1 [facility] Chloride [Moles/Vol] 107 mmol/L 98-107 [facility] CO2 [Moles/Vol] 33.3 mmol/L High 21.0-32.0 [facility] Creatinine [Mass/Vol] 2.88 mg/dL High 0.55-1.02 [facility] Ferritin [Mass/Vol] 688.0 ng/mL High 8.0-252.0 [facility] GFR/1.73 sq M.predicted MDRD (S/P/Bld) [Vol rate/Area] 19 mL/min/{1.73_m2} Low >=60 mL/min/1.7 3m 2 [facility] Glucose [Mass/Vol] 124 mg/dL High 74-106 [facility] Iron [Mass/Vol] 75.0 ug/dL 50.0-170.0 [facility] Potassium [Moles/Vol] 4.4 mmol/L 3.5-5.1 [facility] Sodium [Moles/Vol] 144 mmol/L 136-145 [facility] Urea nitrogen [Mass/Vol] 33.0 mg/dL High 7.0-18.0 [facility] Urea nitrogen/Creatinine [Mass ratio] 11.5 mg/mg [facility] Leukocytes [#/volume] correc katy for nucleated erythrocytes in Blood by Automated counon 07-20-2024 WBC corrected for nucl RBC Auto (Bld) [#/Vol] Leukocytes [#/volume] corrected for nucleated erythrocytes in Blood by Automated coun 4.0-11.0 [facility] MCH Auto (RBC) [Entitic mass ]on 07-20-2024 MCH (RBC) [Entitic mass] MCH [Entitic mass] by Automated count 26.7-34.0 [facility] MCHC Auto (RBC) [Mass/Vol]on 07-20-2024 MCHC (RBC) [Mass/Vol] MCHC [Mass/volume] by Automated count Low 29.9-35.2 [facility] MCV Auto (RBC) [Entitic vol] on 07-20-2024 MCV (RBC) [Entitic vol] MCV [Entitic volume] by Automated count High 81.0-99.0 [facility] No Panel Informationon 07-20 Parathyroid Hormone (Intact) 101 pg/mL Abnormal 15-65 [facility] Comment on above: Performed at: [address] [id number] Director: Deshaun Hunter PhD, Phone: [phone] Phosphorus Level 4.0 mg/dL 2.6-4.7 [facility] Platelet mean volume Auto (B ld) [Entitic vol]on 07-20-2024 Platelet mean volume (Bld) [Entitic vol] Platelet mean volume [Entitic volume] in Blood by Automated count 9.5-13.5 [facility] Platelets Auto (Bld) [#/Vol] on 07-20-2024 Platelets (Bld) [#/Vol] Platelets [#/volume] in Blood by Automated count 150-450 [facility] RBC Auto (Bld) [#/Vol]on RBC (Bld) [#/Vol] Erythrocytes [#/volu me] in Blood by Automated count Low 4.20-5.40 [facility] Serum or plasma anion gap de terminationon 07-20-2024 Anion gap [Moles/Vol] Serum or plasma an ion gap determination [facility] POCT Protime / INRon 025 INR Coag (PPP) [Relative time] 3.1 {INR} Abnormal 0.8 - 1.2 [facility] [employer] [facility] Interpretation and review of laboratory results Abnormal [facility] POCT Protime / INRon 025 INR Coag (PPP) [Relative time] 2.6 {INR} Abnormal 0.8 - 1.2 [facility] [employer] [employer] [facility] Interpretation and review of laboratory results Abnormal [facility] HbA1c HPLC (Bld) [Mass fract ion]on 06-14-2024 HbA1c (Bld) [Mass fraction] Hemoglobin A1c/Hemoglobin.total in Blood by HPLC [facility] No Panel Informationon 06-14 Bedside Glucose 114 [facility] Erythrocyte distribution wid th Auto (RBC) [Ratio]on 06-10-2024 Erythrocyte distribution width (RBC) [Ratio] Erythrocyte distribution width [Ratio] by Automated count 11.0-15.0 [facility] Estimated glomerular filtrat ion rate (GFR) non- Americanon 06-10-2024 GFR/1.73 sq M.predicted among non-blacks MDRD (S/P/Bld) [Vol rate/Area] Estimated glomerular filtration rate (GFR) non- Low >=60 mL/min/1.7 3m 2 [facility] Hematocrit Auto (Bld) [Volum e fraction]on 06-10-2024 Hematocrit (Bld) [Volume fraction] Hematocrit [Volume Fraction] of Blood by Automated count Low 36.0-48.0 [facility] Hemoglobin [Mass/volume] in Bloodon 06-10-2024 Hemoglobin (Bld) [Mass/Vol] Hemoglobin [Mass/volume] in Blood Low 12.0-16.0 [facility] Iron binding capacity [Mass/ volume] in Serum or Plasmaon 06-10-2024 Iron binding capacity [Mass/Vol] Iron binding capacity [Mass/volume] in Serum or Plasma Low 250.0-450. 0 [facility] Iron saturation [Mass Fracti on] in Serum or Plasmaon 06-10-2024 Iron saturation [Mass fraction] Iron saturation [Mass Fraction] in Serum or Plasma [facility] - Chemistry and C hemistry - challengeon 06-10-2024 Albumin [Mass/Vol] 2.9 g/dL [facility] Calcium [Mass/Vol] 8.8 mg/dL [facility] Chloride [Moles/Vol] 106 mmol/L [facility] CO2 [Moles/Vol] 35.1 mmol/L [facility] Creatinine [Mass/Vol] 2.18 mg/dL [facility] Glucose [Mass/Vol] 111 mg/dL [facility] Potassium [Moles/Vol] 3.7 mmol/L [facility] Sodium [Moles/Vol] 146 mmol/L [facility] Urea nitrogen [Mass/Vol] 38.0 mg/dL [facility] Albumin [Mass/Vol] 2.9 g/dL Low 3.4-5.0 [facility] Calcium [Mass/Vol] 8.8 mg/dL 8.5-10.1 [facility] Chloride [Moles/Vol] 106 mmol/L 98-107 [facility] CO2 [Moles/Vol] 35.1 mmol/L High 21.0-32.0 [facility] Creatinine [Mass/Vol] 2.18 mg/dL High 0.55-1.02 [facility] Ferritin [Mass/Vol] 49.0 ng/mL 8.0-252.0 [facility] GFR/1.73 sq M.predicted MDRD (S/P/Bld) [Vol rate/Area] 26 mL/min/{1.73_m2} Low >=60 mL/min/1.7 3m 2 [facility] Glucose [Mass/Vol] 111 mg/dL High 74-106 [facility] Iron [Mass/Vol] 48.0 ug/dL Low 50.0-170.0 [facility] Potassium [Moles/Vol] 3.7 mmol/L 3.5-5.1 [facility] Sodium [Moles/Vol] 146 mmol/L High 136-145 [facility] Urea nitrogen [Mass/Vol] 38.0 mg/dL High 7.0-18.0 [facility] Urea nitrogen/Creatinine [Mass ratio] 17.4 mg/mg [facility] Leukocytes [#/volume] correc katy for nucleated erythrocytes in Blood by Automated counon 06-10-2024 WBC corrected for nucl RBC Auto (Bld) [#/Vol] Leukocytes [#/volume] corrected for nucleated erythrocytes in Blood by Automated coun 4.0-11.0 [facility] MCH Auto (RBC) [Entitic mass ]on 06-10-2024 MCH (RBC) [Entitic mass] MCH [Entitic mass] by Automated count 26.7-34.0 [facility] MCHC Auto (RBC) [Mass/Vol]on 06-10-2024 MCHC (RBC) [Mass/Vol] MCHC [Mass/volume] by Automated count Low 29.9-35.2 [facility] MCV Auto (RBC) [Entitic vol] on 06-10-2024 MCV (RBC) [Entitic vol] MCV [Entitic volume] by Automated count 81.0-99.0 [facility] No Panel Informationon 06-10 Estimated GFR (Non- 22 mL/min [facility] Phosphorus Level 3.6 mg/dL [facility] Phosphorus Level 3.6 mg/dL 2.6-4.7 [facility] Platelet mean volume Auto (B ld) [Entitic vol]on 06-10-2024 Platelet mean volume (Bld) [Entitic vol] Platelet mean volume [Entitic volume] in Blood by Automated count 9.5-13.5 [facility] Platelets Auto (Bld) [#/Vol] on 06-10-2024 Platelets (Bld) [#/Vol] Platelets [#/volume] in Blood by Automated count 150-450 [facility] RBC Auto (Bld) [#/Vol]on RBC (Bld) [#/Vol] Erythrocytes [#/volu me] in Blood by Automated count Low 4.20-5.40 [facility] Serum or plasma anion gap de terminationon 06-10-2024 Anion gap [Moles/Vol] Serum or plasma an ion gap determination [facility] Erythrocyte distribution wid th Auto (RBC) [Ratio]on 05-25-2024 Erythrocyte distribution width (RBC) [Ratio] Erythrocyte distribution width [Ratio] by Automated count 11.0-15.0 [facility] Hematocrit Auto (Bld) [Volum e fraction]on 05-25-2024 Hematocrit (Bld) [Volume fraction] Hematocrit [Volume Fraction] of Blood by Automated count Low 36.0-48.0 [facility] Hemoglobin [Mass/volume] in Bloodon 05-25-2024 Hemoglobin (Bld) [Mass/Vol] Hemoglobin [Mass/volume] in Blood Low 12.0-16.0 [facility] Leukocytes [#/volume] correc katy for nucleated erythrocytes in Blood by Automated counon 05-25-2024 WBC corrected for nucl RBC Auto (Bld) [#/Vol] Leukocytes [#/volume] corrected for nucleated erythrocytes in Blood by Automated coun 4.0-11.0 [facility] MCH Auto (RBC) [Entitic mass ]on 05-25-2024 MCH (RBC) [Entitic mass] MCH [Entitic mass] by Automated count 26.7-34.0 [facility] MCHC Auto (RBC) [Mass/Vol]on 05-25-2024 MCHC (RBC) [Mass/Vol] MCHC [Mass/volume] by Automated count Low 29.9-35.2 [facility] MCV Auto (RBC) [Entitic vol] on 05-25-2024 MCV (RBC) [Entitic vol] MCV [Entitic volume] by Automated count High 81.0-99.0 [facility] Platelet mean volume Auto (B ld) [Entitic vol]on 05-25-2024 Platelet mean volume (Bld) [Entitic vol] Platelet mean volume [Entitic volume] in Blood by Automated count 9.5-13.5 [facility] Platelets Auto (Bld) [#/Vol] on 05-25-2024 Platelets (Bld) [#/Vol] Platelets [#/volume] in Blood by Automated count 150-450 [facility] RBC Auto (Bld) [#/Vol]on RBC (Bld) [#/Vol] Erythrocytes [#/volu me] in Blood by Automated count Low 4.20-5.40 [facility] POCT Protime / INRon 024 INR Coag (PPP) [Relative time] 2.3 {INR} Abnormal 0.8 - 1.2 [employer] Interpretation and review of laboratory results Abnormal [employer] [facility] Erythrocyte distribution wid th Auto (RBC) [Ratio]on 04-28-2024 Erythrocyte distribution width (RBC) [Ratio] Erythrocyte distribution width [Ratio] by Automated count 11.0-15.0 [facility] Hematocrit Auto (Bld) [Volum e fraction]on 04-28-2024 Hematocrit (Bld) [Volume fraction] Hematocrit [Volume Fraction] of Blood by Automated count Low 36.0-48.0 [facility] Hemoglobin [Mass/volume] in Bloodon 04-28-2024 Hemoglobin (Bld) [Mass/Vol] Hemoglobin [Mass/volume] in Blood Low 12.0-16.0 [facility] Iron binding capacity [Mass/ volume] in Serum or Plasmaon 04-28-2024 Iron binding capacity [Mass/Vol] Iron binding capacity [Mass/volume] in Serum or Plasma 250.0-450. 0 [facility] Iron saturation [Mass Fracti on] in Serum or Plasmaon 04-28-2024 Iron saturation [Mass fraction] Iron saturation [Mass Fraction] in Serum or Plasma [facility] - Chemistry and C hemistry - challengeon 04-28-2024 Cobalamin (Vitamin B12) [Mass/Vol] 1140 pg/mL [id number] [facility] Comment on above: Performed at: - [address] [id number] Director: Deshaun Hunter PhD, Phone: [phone] Ferritin [Mass/Vol] 58.0 ng/mL 8.0-252.0 [facility] Iron [Mass/Vol] 49.0 ug/dL Low 50.0-170.0 [facility] Leukocytes [#/volume] correc katy for nucleated erythrocytes in Blood by Automated counon 04-28-2024 WBC corrected for nucl RBC Auto (Bld) [#/Vol] Leukocytes [#/volume] corrected for nucleated erythrocytes in Blood by Automated coun 4.0-11.0 [facility] MCH Auto (RBC) [Entitic mass ]on 04-28-2024 MCH (RBC) [Entitic mass] MCH [Entitic mass] by Automated count 26.7-34.0 [facility] MCHC Auto (RBC) [Mass/Vol]on 04-28-2024 MCHC (RBC) [Mass/Vol] MCHC [Mass/volume] by Automated count Low 29.9-35.2 [facility] MCV Auto (RBC) [Entitic vol] on 04-28-2024 MCV (RBC) [Entitic vol] MCV [Entitic volume] by Automated count High 81.0-99.0 [facility] No Panel Informationon 04-28 Folate 13.00 ng/mL 8.60-58.90 [facility] Platelet mean volume Auto (B ld) [Entitic vol]on 04-28-2024 Platelet mean volume (Bld) [Entitic vol] Platelet mean volume [Entitic volume] in Blood by Automated count 9.5-13.5 [facility] Platelets Auto (Bld) [#/Vol] on 04-28-2024 Platelets (Bld) [#/Vol] Platelets [#/volume] in Blood by Automated count 150-450 [facility] RBC Auto (Bld) [#/Vol]on RBC (Bld) [#/Vol] Erythrocytes [#/volu me] in Blood by Automated count Low 4.20-5.40 [facility] Erythrocyte distribution wid th Auto (RBC) [Ratio]on 04-13-2024 Erythrocyte distribution width (RBC) [Ratio] Erythrocyte distribution width [Ratio] by Automated count 11.0-15.0 [facility] Estimated glomerular filtrat ion rate (GFR) non- Americanon 04-13-2024 GFR/1.73 sq M.predicted among non-blacks MDRD (S/P/Bld) [Vol rate/Area] Estimated glomerular filtration rate (GFR) non- Low >=60 mL/min/1.7 3m 2 [facility] Hematocrit Auto (Bld) [Volum e fraction]on 04-13-2024 Hematocrit (Bld) [Volume fraction] Hematocrit [Volume Fraction] of Blood by Automated count Low 36.0-48.0 [facility] Hemoglobin [Mass/volume] in Bloodon 04-13-2024 Hemoglobin (Bld) [Mass/Vol] Hemoglobin [Mass/volume] in Blood Low 12.0-16.0 [facility] - Chemistry and C hemistry - challengeon 04-13-2024 Albumin [Mass/Vol] 2.9 g/dL Low 3.4-5.0 [facility] Calcium [Mass/Vol] 9.5 mg/dL 8.5-10.1 [facility] Chloride [Moles/Vol] 106 mmol/L 98-107 [facility] CO2 [Moles/Vol] 32.0 mmol/L 21.0-32.0 [facility] Creatinine [Mass/Vol] 2.22 mg/dL High 0.55-1.02 [facility] GFR/1.73 sq M.predicted MDRD (S/P/Bld) [Vol rate/Area] 26 mL/min/{1.73_m2} Low >=60 mL/min/1.7 3m 2 [facility] Glucose [Mass/Vol] 135 mg/dL High 74-106 [facility] Potassium [Moles/Vol] 4.4 mmol/L 3.5-5.1 [facility] Sodium [Moles/Vol] 146 mmol/L High 136-145 [facility] Urea nitrogen [Mass/Vol] 44.0 mg/dL High 7.0-18.0 [facility] Urea nitrogen/Creatinine [Mass ratio] 19.8 mg/mg [facility] Leukocytes [#/volume] correc katy for nucleated erythrocytes in Blood by Automated counon 04-13-2024 WBC corrected for nucl RBC Auto (Bld) [#/Vol] Leukocytes [#/volume] corrected for nucleated erythrocytes in Blood by Automated coun 4.0-11.0 [facility] MCH Auto (RBC) [Entitic mass ]on 04-13-2024 MCH (RBC) [Entitic mass] MCH [Entitic mass] by Automated count 26.7-34.0 [facility] MCHC Auto (RBC) [Mass/Vol]on 04-13-2024 MCHC (RBC) [Mass/Vol] MCHC [Mass/volume] by Automated count Low 29.9-35.2 [facility] MCV Auto (RBC) [Entitic vol] on 04-13-2024 MCV (RBC) [Entitic vol] MCV [Entitic volume] by Automated count High 81.0-99.0 [facility] No Panel Informationon 04-13 Phosphorus Level 3.7 mg/dL 2.6-4.7 [facility] Platelet mean volume Auto (B ld) [Entitic vol]on 04-13-2024 Platelet mean volume (Bld) [Entitic vol] Platelet mean volume [Entitic volume] in Blood by Automated count 9.5-13.5 [facility] Platelets Auto (Bld) [#/Vol] on 04-13-2024 Platelets (Bld) [#/Vol] Platelets [#/volume] in Blood by Automated count 150-450 [facility] RBC Auto (Bld) [#/Vol]on RBC (Bld) [#/Vol] Erythrocytes [#/volu me] in Blood by Automated count Low 4.20-5.40 [facility] Serum or plasma anion gap de terminationon 04-13-2024 Anion gap [Moles/Vol] Serum or plasma an ion gap determination [facility] Erythrocyte distribution wid th Auto (RBC) [Ratio]on 03-17-2024 Erythrocyte distribution width (RBC) [Ratio] 14.8 % 11.0-15.0 [facility] Erythrocyte distribution width (RBC) [Ratio] Erythrocyte distribution width [Ratio] by Automated count 11.0-15.0 [facility] Hematocrit Auto (Bld) [Volum e fraction]on 03-17-2024 Hematocrit (Bld) [Volume fraction] 32.8 % Low 36.0-48.0 [facility] Hematocrit (Bld) [Volume fraction] Hematocrit [Volume Fraction] of Blood by Automated count Low 36.0-48.0 [facility] Hemoglobin [Mass/volume] in Bloodon 03-17-2024 Hemoglobin (Bld) [Mass/Vol] 9.8 g/dL Low 12.0-16.0 [facility] Hemoglobin (Bld) [Mass/Vol] Hemoglobin [Mass/volume] in Blood Low 12.0-16.0 [facility] Iron binding capacity [Mass/ volume] in Serum or Plasmaon 03-17-2024 Iron binding capacity [Mass/Vol] 225.0 ug/dL Low 250.0-450. 0 [facility] Iron binding capacity [Mass/Vol] Iron binding capacity [Mass/volume] in Serum or Plasma Low 250.0-450. 0 [facility] Iron saturation [Mass Fracti on] in Serum or Plasmaon 03-17-2024 Iron saturation [Mass fraction] 22.7 % [facility] Iron saturation [Mass fraction] Iron saturation [Mass Fraction] in Serum or Plasma [facility] - Chemistry and C hemistry - challengeon 03-17-2024 Cobalamin (Vitamin B12) [Mass/Vol] 1103 pg/mL [id number] [facility] Comment on above: Performed at: [facility] - [place] [address] [id number] Director: Deshaun Hunter PhD, Phone: [phone] Ferritin [Mass/Vol] 65.0 ng/mL 8.0-252.0 [facility] Iron [Mass/Vol] 51.0 ug/dL 50.0-170.0 [facility] Magnesium [Mass/Vol] 2.2 mg/dL 1.8-2.4 [facility] Leukocytes [#/volume] correc katy for nucleated erythrocytes in Blood by Automated counon 03-17-2024 WBC corrected for nucl RBC Auto (Bld) [#/Vol] 6.3 10 3/uL 4.0-11.0 [facility] WBC corrected for nucl RBC Auto (Bld) [#/Vol] Leukocytes [#/volume] corrected for nucleated erythrocytes in Blood by Automated coun 4.0-11.0 [facility] MCH Auto (RBC) [Entitic mass ]on 03-17-2024 MCH (RBC) [Entitic mass] 29.5 pg 26.7-34.0 [facility] MCH (RBC) [Entitic mass] MCH [Entitic mass] by Automated count 26.7-34.0 [facility] MCHC Auto (RBC) [Mass/Vol]on 03-17-2024 MCHC (RBC) [Mass/Vol] 29.9 g/dL 29.9-35.2 [facility] MCHC (RBC) [Mass/Vol] MCHC [Mass/volume] by Automated count 29.9-35.2 [facility] MCV Auto (RBC) [Entitic vol] on 03-17-2024 MCV (RBC) [Entitic vol] 98.8 fL 81.0-99.0 [facility] MCV (RBC) [Entitic vol] MCV [Entitic volume] by Automated count 81.0-99.0 [facility] No Panel Informationon 03-17 Folate 11.70 ng/mL 8.60-58.90 [facility] Parathyroid Hormone (Intact) 78 pg/mL Abnormal 15-65 [facility] Comment on above: Performed at: [facility] [employer] [address] [id number] Director: Deshaun Hunter PhD, Phone: [phone] Platelet mean volume Auto (B ld) [Entitic vol]on 03-17-2024 Platelet mean volume (Bld) [Entitic vol] 10.1 fL 9.5-13.5 [facility] Platelet mean volume (Bld) [Entitic vol] Platelet mean volume [Entitic volume] in Blood by Automated count 9.5-13.5 [facility] Platelets Auto (Bld) [#/Vol] on 03-17-2024 Platelets (Bld) [#/Vol] 179 10 3/uL 150-450 [facility] Platelets (Bld) [#/Vol] Platelets [#/volume] in Blood by Automated count 150-450 [facility] RBC Auto (Bld) [#/Vol]on RBC (Bld) [#/Vol] 3.32 10 6/uL Low 4.20-5.40 [facility] RBC (Bld) [#/Vol] Erythrocytes [#/volu me] in Blood by Automated count Low 4.20-5.40 [facility] Erythrocyte distribution wid th Auto (RBC) [Ratio]on 02-23-2024 Erythrocyte distribution width (RBC) [Ratio] 15.1 % High 11.0-15.0 [facility] Erythrocyte distribution width (RBC) [Ratio] Erythrocyte distribution width [Ratio] by Automated count High 11.0-15.0 [facility] Estimated glomerular filtrat ion rate (GFR) non- Americanon 02-23-2024 GFR/1.73 sq M.predicted among non-blacks MDRD (S/P/Bld) [Vol rate/Area] 20 mL/min/{1.73_m2} Low >=60 mL/min/1.7 3m 2 [facility] GFR/1.73 sq M.predicted among non-blacks MDRD (S/P/Bld) [Vol rate/Area] Estimated glomerular filtration rate (GFR) non- Low >=60 mL/min/1.7 3m 2 [facility] Hematocrit Auto (Bld) [Volum e fraction]on 02-23-2024 Hematocrit (Bld) [Volume fraction] 32.8 % Low 36.0-48.0 [facility] Hematocrit (Bld) [Volume fraction] Hematocrit [Volume Fraction] of Blood by Automated count Low 36.0-48.0 [facility] Hemoglobin [Mass/volume] in Bloodon 02-23-2024 Hemoglobin (Bld) [Mass/Vol] 9.7 g/dL Low 12.0-16.0 [facility] Hemoglobin (Bld) [Mass/Vol] Hemoglobin [Mass/volume] in Blood Low 12.0-16.0 [facility] - Chemistry and C hemistry - challengeon 02-23-2024 Albumin [Mass/Vol] 3.0 g/dL Low 3.4-5.0 [facility] Calcium [Mass/Vol] 8.9 mg/dL 8.5-10.1 [facility] [facility] Ch[facility] [Moles/Vol] 107 mmol/L 98-107 [facility] CO2 [Moles/Vol] 28.7 mmol/L 21.0-32.0 [facility] Creatinine [Mass/Vol] 2.30 mg/dL High 0.55-1.02 [facility] GFR/1.73 sq M.predicted MDRD (S/P/Bld) [Vol rate/Area] 25 mL/min/{1.73_m2} Low >=60 mL/min/1.7 3m 2 [facility] Glucose [Mass/Vol] 97 mg/dL 74-106 [facility] Potassium [Moles/Vol] 4.0 mmol/L 3.5-5.1 [facility] Sodium [Moles/Vol] 144 mmol/L 136-145 [facility] Urea nitrogen [Mass/Vol] 50.0 mg/dL High 7.0-18.0 [facility] Urea nitrogen/Creatinine [Mass ratio] 21.7 mg/mg [facility] Leukocytes [#/volume] correc katy for nucleated erythrocytes in Blood by Automated counon 02-23-2024 WBC corrected for nucl RBC Auto (Bld) [#/Vol] 4.8 10 3/uL 4.0-11.0 [facility] WBC corrected for nucl RBC Auto (Bld) [#/Vol] Leukocytes [#/volume] corrected for nucleated erythrocytes in Blood by Automated coun 4.0-11.0 [facility] MCH Auto (RBC) [Entitic mass ]on 02-23-2024 MCH (RBC) [Entitic mass] 29.4 pg 26.7-34.0 [facility] MCH (RBC) [Entitic mass] MCH [Entitic mass] by Automated count 26.7-34.0 [facility] MCHC Auto (RBC) [Mass/Vol]on 02-23-2024 MCHC (RBC) [Mass/Vol] 29.6 g/dL Low 29.9-35.2 [facility] MCHC (RBC) [Mass/Vol] MCHC [Mass/volume] by Automated count Low 29.9-35.2 [facility] MCV Auto (RBC) [Entitic vol] on 02-23-2024 MCV (RBC) [Entitic vol] 99.4 fL High 81.0-99.0 [facility] MCV (RBC) [Entitic vol] MCV [Entitic volume] by Automated count High 81.0-99.0 [facility] No Panel Informationon 02-22 Phosphorus Level 3.6 mg/dL 2.6-4.7 [facility] Platelet mean volume Auto (B ld) [Entitic vol]on 02-23-2024 Platelet mean volume (Bld) [Entitic vol] 9.7 fL 9.5-13.5 [facility] Platelet mean volume (Bld) [Entitic vol] Platelet mean volume [Entitic volume] in Blood by Automated count 9.5-13.5 [facility] Platelets Auto (Bld) [#/Vol] on 02-23-2024 Platelets (Bld) [#/Vol] 170 10 3/uL 150-450 [facility] Platelets (Bld) [#/Vol] Platelets [#/volume] in Blood by Automated count 150-450 [facility] RBC Auto (Bld) [#/Vol]on RBC (Bld) [#/Vol] 3.30 10 6/uL Low 4.20-5.40 [facility] RBC (Bld) [#/Vol] Erythrocytes [#/volu me] in Blood by Automated count Low 4.20-5.40 [facility] Serum or plasma anion gap de terminationon 02-23-2024 Anion gap [Moles/Vol] 12.3 mmol/L [facility] Anion gap [Moles/Vol] Serum or plasma an ion gap determination [facility] Erythrocyte distribution wid th Auto (RBC) [Ratio]on 02-03-2024 Erythrocyte distribution width (RBC) [Ratio] 14.4 % 11.0-15.0 [facility] Erythrocyte distribution width (RBC) [Ratio] Erythrocyte distribution width [Ratio] by Automated count 11.0-15.0 [facility] Estimated glomerular filtrat ion rate (GFR) non- Americanon 02-03-2024 GFR/1.73 sq M.predicted among non-blacks MDRD (S/P/Bld) [Vol rate/Area] 19 mL/min/{1.73_m2} Low >=60 [facility] GFR/1.73 sq M.predicted among non-blacks MDRD (S/P/Bld) [Vol rate/Area] Estimated glomerular filtration rate (GFR) non- Low >=60 [facility] Hematocrit Auto (Bld) [Volum e fraction]on 02-03-2024 Hematocrit (Bld) [Volume fraction] 33.5 % Low 36.0-48.0 [facility] Hematocrit (Bld) [Volume fraction] Hematocrit [Volume Fraction] of Blood by Automated count Low 36.0-48.0 [facility] Hemoglobin [Mass/volume] in Bloodon 02-03-2024 Hemoglobin (Bld) [Mass/Vol] 10.0 g/dL Low 12.0-16.0 [facility] Hemoglobin (Bld) [Mass/Vol] Hemoglobin [Mass/volume] in Blood Low 12.0-16.0 [facility] Laboratory - Chemistry and C hemistry - challengeon 02-03-2024 Albumin [Mass/Vol] 3.1 g/dL Low 3.4-5.0 [facility] Calcium [Mass/Vol] 8.8 mg/dL 8.5-10.1 [facility] Chloride [Moles/Vol] 103 mmol/L 98-107 [facility] CO2 [Moles/Vol] 32.9 mmol/L High 21.0-32.0 [facility] Creatinine [Mass/Vol] 2.48 mg/dL High 0.55-1.02 [facility] GFR/1.73 sq M.predicted MDRD (S/P/Bld) [Vol rate/Area] 23 mL/min/{1.73_m2} Low >=60 [facility] Glucose [Mass/Vol] 101 mg/dL 74-106 [facility] Potassium [Moles/Vol] 4.6 mmol/L 3.5-5.1 [facility] Sodium [Moles/Vol] 141 mmol/L 136-145 [facility] Urea nitrogen [Mass/Vol] 51.0 mg/dL High 7.0-18.0 [facility] Urea nitrogen/Creatinine [Mass ratio] 20.6 mg/mg [facility] Leukocytes [#/volume] correc katy for nucleated erythrocytes in Blood by Automated counon 02-03-2024 WBC corrected for nucl RBC Auto (Bld) [#/Vol] 6.3 10 3/uL 4.0-11.0 [facility] WBC corrected for nucl RBC Auto (Bld) [#/Vol] Leukocytes [#/volume] corrected for nucleated erythrocytes in Blood by Automated coun 4.0-11.0 [facility] MCH Auto (RBC) [Entitic mass ]on 02-03-2024 MCH (RBC) [Entitic mass] 29.4 pg 26.7-34.0 [facility] MCH (RBC) [Entitic mass] MCH [Entitic mass] by Automated count 26.7-34.0 [facility] MCHC Auto (RBC) [Mass/Vol]on 02-03-2024 MCHC (RBC) [Mass/Vol] 29.9 g/dL 29.9-35.2 [facility] MCHC (RBC) [Mass/Vol] MCHC [Mass/volume] by Automated count 29.9-35.2 [facility] MCV Auto (RBC) [Entitic vol] on 02-03-2024 MCV (RBC) [Entitic vol] 98.5 fL 81.0-99.0 [facility] MCV (RBC) [Entitic vol] MCV [Entitic volume] by Automated count 81.0-99.0 [facility] No Panel Informationon 02-02 Phosphorus Level 4.7 mg/dL 2.6-4.7 [facility] Platelet mean volume Auto (B ld) [Entitic vol]on 02-03-2024 Platelet mean volume (Bld) [Entitic vol] 9.6 fL 9.5-13.5 [facility] Platelet mean volume (Bld) [Entitic vol] Platelet mean volume [Entitic volume] in Blood by Automated count 9.5-13.5 [facility] Platelets Auto (Bld) [#/Vol] on 02-03-2024 Platelets (Bld) [#/Vol] 227 10 3/uL 150-450 [facility] Platelets (Bld) [#/Vol] Platelets [#/volume] in Blood by Automated count 150-450 [facility] RBC Auto (Bld) [#/Vol]on RBC (Bld) [#/Vol] 3.40 10 6/uL Low 4.20-5.40 [facility] RBC (Bld) [#/Vol] Erythrocytes [#/volu me] in Blood by Automated count Low 4.20-5.40 [facility] Serum or plasma anion gap de terminationon 02-03-2024 Anion gap [Moles/Vol] 9.7 mmol/L [facility] Anion gap [Moles/Vol] Serum or plasma an ion gap determination [facility] Estimated glomerular filtrat ion rate (GFR) non- Americanon 01-23-2024 GFR/1.73 sq M.predicted among non-blacks MDRD (S/P/Bld) [Vol rate/Area] 23 mL/min/{1.73_m2} Low >=60 [facility] GFR/1.73 sq M.predicted among non-blacks MDRD (S/P/Bld) [Vol rate/Area] Estimated glomerular filtration rate (GFR) non- Low >=60 [facility] Laboratory - Chemistry and C hemistry - challengeon 01-23-2024 Albumin [Mass/Vol] 3.0 g/dL Low 3.4-5.0 [facility] Calcium [Mass/Vol] 8.6 mg/dL 8.5-10.1 [facility] Chloride [Moles/Vol] 107 mmol/L 98-107 [facility] CO2 [Moles/Vol] 30.8 mmol/L 21.0-32.0 [facility] Creatinine [Mass/Vol] 2.09 mg/dL High 0.55-1.02 [facility] GFR/1.73 sq M.predicted MDRD (S/P/Bld) [Vol rate/Area] 27 mL/min/{1.73_m2} Low >=60 [facility] Glucose [Mass/Vol] 100 mg/dL 74-106 [facility] Potassium [Moles/Vol] 5.8 mmol/L High 3.5-5.1 [facility] Sodium [Moles/Vol] 144 mmol/L 136-145 [facility] Urea nitrogen [Mass/Vol] 44.0 mg/dL High 7.0-18.0 [facility] Urea nitrogen/Creatinine [Mass ratio] 21.1 mg/mg [facility] No Panel Informationon 01-22 Phosphorus Level 4.1 mg/dL 2.6-4.7 [facility] Serum or plasma anion gap de terminationon 01-23-2024 Anion gap [Moles/Vol] 12.0 mmol/L [facility] Anion gap [Moles/Vol] Serum or plasma an ion gap determination [facility] Erythrocyte distribution wid th Auto (RBC) [Ratio]on 01-20-2024 Erythrocyte distribution width (RBC) [Ratio] 15.0 % 11.0-15.0 [facility] Erythrocyte distribution width (RBC) [Ratio] Erythrocyte distribution width [Ratio] by Automated count 11.0-15.0 [facility] Estimated glomerular filtrat ion rate (GFR) non- Americanon 01-20-2024 GFR/1.73 sq M.predicted among non-blacks MDRD (S/P/Bld) [Vol rate/Area] 23 mL/min/{1.73_m2} Low >=60 [facility] GFR/1.73 sq M.predicted among non-blacks MDRD (S/P/Bld) [Vol rate/Area] Estimated glomerular filtration rate (GFR) non- Low >=60 [facility] Hematocrit Auto (Bld) [Volum e fraction]on 01-20-2024 Hematocrit (Bld) [Volume fraction] 32.5 % Low 36.0-48.0 [facility] Hematocrit (Bld) [Volume fraction] Hematocrit [Volume Fraction] of Blood by Automated count Low 36.0-48.0 [facility] Hemoglobin [Mass/volume] in Bloodon 01-20-2024 Hemoglobin (Bld) [Mass/Vol] 9.6 g/dL Low 12.0-16.0 [facility] Hemoglobin (Bld) [Mass/Vol] Hemoglobin [Mass/volume] in Blood Low 12.0-16.0 [facility] Iron binding capacity [Mass/ volume] in Serum or Plasmaon 01-20-2024 Iron binding capacity [Mass/Vol] 260.0 ug/dL 250.0-450. 0 [facility] Iron binding capacity [Mass/Vol] Iron binding capacity [Mass/volume] in Serum or Plasma 250.0-450. 0 [facility] Iron saturation [Mass Fracti on] in Serum or Plasmaon 01-20-2024 Iron saturation [Mass fraction] 10.0 % [facility] Iron saturation [Mass fraction] Iron saturation [Mass Fraction] in Serum or Plasma [facility] Laboratory - Chemistry and C hemistry - challengeon 01-20-2024 Albumin [Mass/Vol] 3.0 g/dL Low 3.4-5.0 [facility] Calcium [Mass/Vol] 8.5 mg/dL 8.5-10.1 [facility] Chloride [Moles/Vol] 108 mmol/L High 98-107 [facility] CO2 [Moles/Vol] 31.6 mmol/L 21.0-32.0 [facility] Creatinine [Mass/Vol] 2.06 mg/dL High 0.55-1.02 [facility] Ferritin [Mass/Vol] 36.0 ng/mL 8.0-252.0 [facility] GFR/1.73 sq M.predicted MDRD (S/P/Bld) [Vol rate/Area] 28 mL/min/{1.73_m2} Low >=60 [facility] Glucose [Mass/Vol] 106 mg/dL 74-106 [facility] Iron [Mass/Vol] 26.0 ug/dL Low 50.0-170.0 [facility] Potassium [Moles/Vol] 5.8 mmol/L High 3.5-5.1 [facility] Sodium [Moles/Vol] 144 mmol/L 136-145 [facility] Urea nitrogen [Mass/Vol] 48.0 mg/dL High 7.0-18.0 [facility] Urea nitrogen/Creatinine [Mass ratio] 23.3 mg/mg [facility] Leukocytes [#/volume] correc katy for nucleated erythrocytes in Blood by Automated counon 01-20-2024 WBC corrected for nucl RBC Auto (Bld) [#/Vol] 6.4 10 3/uL 4.0-11.0 [facility] WBC corrected for nucl RBC Auto (Bld) [#/Vol] Leukocytes [#/volume] corrected for nucleated erythrocytes in Blood by Automated coun 4.0-11.0 [facility] MCH Auto (RBC) [Entitic mass ]on 01-20-2024 MCH (RBC) [Entitic mass] 30.0 pg 26.7-34.0 [facility] MCH (RBC) [Entitic mass] MCH [Entitic mass] by Automated count 26.7-34.0 [facility] MCHC Auto (RBC) [Mass/Vol]on 01-20-2024 MCHC (RBC) [Mass/Vol] 29.5 g/dL Low 29.9-35.2 [facility] MCHC (RBC) [Mass/Vol] MCHC [Mass/volume] by Automated count Low 29.9-35.2 [facility] MCV Auto (RBC) [Entitic vol] on 01-20-2024 MCV (RBC) [Entitic vol] 101.6 fL High 81.0-99.0 [facility] MCV (RBC) [Entitic vol] MCV [Entitic volume] by Automated count High 81.0-99.0 [facility] No Panel Informationon 01-19 Phosphorus Level 4.2 mg/dL 2.6-4.7 [facility] Platelet mean volume Auto (B ld) [Entitic vol]on 01-20-2024 Platelet mean volume (Bld) [Entitic vol] 9.6 fL 9.5-13.5 [facility] Platelet mean volume (Bld) [Entitic vol] Platelet mean volume [Entitic volume] in Blood by Automated count 9.5-13.5 [facility] Platelets Auto (Bld) [#/Vol] on 01-20-2024 Platelets (Bld) [#/Vol] 196 10 3/uL 150-450 [facility] Platelets (Bld) [#/Vol] Platelets [#/volume] in Blood by Automated count 150-450 [facility] RBC Auto (Bld) [#/Vol]on RBC (Bld) [#/Vol] 3.20 10 6/uL Low 4.20-5.40 [facility] RBC (Bld) [#/Vol] Erythrocytes [#/volu me] in Blood by Automated count Low 4.20-5.40 [facility] Serum or plasma anion gap de terminationon 01-20-2024 Anion gap [Moles/Vol] 10.2 mmol/L Fi [facility] Anion gap [Moles/Vol] Serum or plasma an ion gap determination [facility] 36on 01-07-2024 36 Please forward to PCP Normal [facility] Refillon 01-06-2024 Refill [id number] Dany Martínez 1940 F Date Provider Department Center 01/06/[id number] [facility] IM [facility] No family history on file Reason for Visit and Comments: Med Refill [[id number]] Normal [facility] Erythrocyte distribution wid th Auto (RBC) [Ratio]on 01-05-2024 Erythrocyte distribution width (RBC) [Ratio] 14.2 % 11.0-15.0 [facility] Erythrocyte distribution width (RBC) [Ratio] Erythrocyte distribution width [Ratio] by Automated count 11.0-15.0 [facility] Hematocrit Auto (Bld) [Volum e fraction]on 01-05-2024 Hematocrit (Bld) [Volume fraction] 32.4 % Low 36.0-48.0 [facility] Hematocrit (Bld) [Volume fraction] Hematocrit [Volume Fraction] of Blood by Automated count Low 36.0-48.0 [facility] Hemoglobin [Mass/volume] in Bloodon 01-05-2024 Hemoglobin (Bld) [Mass/Vol] 9.8 g/dL Low 12.0-16.0 [facility] Hemoglobin (Bld) [Mass/Vol] Hemoglobin [Mass/volume] in Blood Low 12.0-16.0 [facility] Leukocytes [#/volume] correc katy for nucleated erythrocytes in Blood by Automated counon 01-05-2024 WBC corrected for nucl RBC Auto (Bld) [#/Vol] 5.7 10 3/uL 4.0-11.0 [facility] WBC corrected for nucl RBC Auto (Bld) [#/Vol] Leukocytes [#/volume] corrected for nucleated erythrocytes in Blood by Automated coun 4.0-11.0 [facility] MCH Auto (RBC) [Entitic mass ]on 01-05-2024 MCH (RBC) [Entitic mass] 30.1 pg 26.7-34.0 [facility] MCH (RBC) [Entitic mass] MCH [Entitic mass] by Automated count 26.7-34.0 [facility] MCHC Auto (RBC) [Mass/Vol]on 01-05-2024 MCHC (RBC) [Mass/Vol] 30.2 g/dL 29.9-35.2 [facility] MCHC (RBC) [Mass/Vol] MCHC [Mass/volume] by Automated count 29.9-35.2 [facility] MCV Auto (RBC) [Entitic vol] on 01-05-2024 MCV (RBC) [Entitic vol] 99.4 fL High 81.0-99.0 [facility] MCV (RBC) [Entitic vol] MCV [Entitic volume] by Automated count High 81.0-99.0 [facility] Platelet mean volume Auto (B ld) [Entitic vol]on 01-05-2024 Platelet mean volume (Bld) [Entitic vol] 9.3 fL Low 9.5-13.5 [facility] Platelet mean volume (Bld) [Entitic vol] Platelet mean volume [Entitic volume] in Blood by Automated count Low 9.5-13.5 [facility] Platelets Auto (Bld) [#/Vol] on 01-05-2024 Platelets (Bld) [#/Vol] 211 10 3/uL 150-450 [facility] Platelets (Bld) [#/Vol] Platelets [#/volume] in Blood by Automated count 150-450 [facility] RBC Auto (Bld) [#/Vol]on RBC (Bld) [#/Vol] 3.26 10 6/uL Low 4.20-5.40 [facility] RBC (Bld) [#/Vol] Erythrocytes [#/volu me] in Blood by Automated count Low 4.20-5.40 [facility] No Panel Informationon 12-07 Bedside Glucose 124 [facility] Erythrocyte distribution wid th Auto (RBC) [Ratio]on 11-27-2023 Erythrocyte distribution width (RBC) [Ratio] 14.7 % 11.0-15.0 [facility] Hematocrit Auto (Bld) [Volum e fraction]on 11-27-2023 Hematocrit (Bld) [Volume fraction] 31.1 % Low 36.0-48.0 [facility] Hemoglobin [Mass/volume] in Bloodon 11-27-2023 Hemoglobin (Bld) [Mass/Vol] 9.3 g/dL Low 12.0-16.0 [facility] Leukocytes [#/volume] correc katy for nucleated erythrocytes in Blood by Automated counon 11-27-2023 WBC corrected for nucl RBC Auto (Bld) [#/Vol] 5.4 10 3/uL 4.0-11.0 [facility] MCH Auto (RBC) [Entitic mass ]on 11-27-2023 MCH (RBC) [Entitic mass] 29.5 pg 26.7-34.0 [facility] MCHC Auto (RBC) [Mass/Vol]on 11-27-2023 MCHC (RBC) [Mass/Vol] 29.9 g/dL 29.9-35.2 [facility] MCV Auto (RBC) [Entitic vol] on 11-27-2023 MCV (RBC) [Entitic vol] 98.7 fL 81.0-99.0 [facility] Platelet mean volume Auto (B ld) [Entitic vol]on 11-27-2023 Platelet mean volume (Bld) [Entitic vol] 9.9 fL 9.5-13.5 [facility] Platelets Auto (Bld) [#/Vol] on 11-27-2023 Platelets (Bld) [#/Vol] 195 10 3/uL 150-450 [facility] RBC Auto (Bld) [#/Vol]on RBC (Bld) [#/Vol] 3.15 10 6/uL Low 4.20-5.40 [facility] Erythrocyte distribution wid th Auto (RBC) [Ratio]on 11-13-2023 Erythrocyte distribution width (RBC) [Ratio] 14.6 % 11.0-15.0 [facility] Estimated glomerular filtrat ion rate (GFR) non- Americanon 11-13-2023 GFR/1.73 sq M.predicted among non-blacks MDRD (S/P/Bld) [Vol rate/Area] 19 mL/min/{1.73_m2} Low >=60 [facility] Hematocrit Auto (Bld) [Volum e fraction]on 11-13-2023 Hematocrit (Bld) [Volume fraction] 30.1 % Low 36.0-48.0 [facility] Hemoglobin [Mass/volume] in Bloodon 11-13-2023 Hemoglobin (Bld) [Mass/Vol] 8.9 g/dL Low 12.0-16.0 [facility] Laboratory - Chemistry and C hemistry - challengeon 11-13-2023 Albumin [Mass/Vol] 3.1 g/dL Low 3.4-5.0 [facility] Calcium [Mass/Vol] 8.4 mg/dL Low 8.5-10.1 [facility] Chloride [Moles/Vol] 106 mmol/L 98-107 [facility] CO2 [Moles/Vol] 29.3 mmol/L 21.0-32.0 [facility] Creatinine [Mass/Vol] 2.41 mg/dL High 0.55-1.02 [facility] GFR/1.73 sq M.predicted MDRD (S/P/Bld) [Vol rate/Area] 23 mL/min/{1.73_m2} Low >=60 [facility] Glucose [Mass/Vol] 97 mg/dL 74-106 [facility] Potassium [Moles/Vol] 4.8 mmol/L 3.5-5.1 [facility] Sodium [Moles/Vol] 143 mmol/L 136-145 [facility] Urea nitrogen [Mass/Vol] 47.0 mg/dL High 7.0-18.0 [facility] Urea nitrogen/Creatinine [Mass ratio] 19.5 mg/mg [facility] Leukocytes [#/volume] correc katy for nucleated erythrocytes in Blood by Automated counon 11-13-2023 WBC corrected for nucl RBC Auto (Bld) [#/Vol] 5.0 10 3/uL 4.0-11.0 [facility] MCH Auto (RBC) [Entitic mass ]on 11-13-2023 MCH (RBC) [Entitic mass] 28.9 pg 26.7-34.0 [facility] MCHC Auto (RBC) [Mass/Vol]on 11-13-2023 MCHC (RBC) [Mass/Vol] 29.6 g/dL Low 29.9-35.2 [facility] MCV Auto (RBC) [Entitic vol] on 11-13-2023 MCV (RBC) [Entitic vol] 97.7 fL 81.0-99.0 [facility] No Panel Informationon 11-12 Phosphorus Level 4.2 mg/dL 2.6-4.7 [facility] Platelet mean volume Auto (B ld) [Entitic vol]on 11-13-2023 Platelet mean volume (Bld) [Entitic vol] 9.7 fL 9.5-13.5 [facility] Platelets Auto (Bld) [#/Vol] on 11-13-2023 Platelets (Bld) [#/Vol] 228 10 3/uL 150-450 [facility] RBC Auto (Bld) [#/Vol]on RBC (Bld) [#/Vol] 3.08 10 6/uL Low 4.20-5.40 [facility] Serum or plasma anion gap de terminationon 11-13-2023 Anion gap [Moles/Vol] 12.5 mmol/L [facility] Erythrocyte distribution wid th Auto (RBC) [Ratio]on 10-30-2023 Erythrocyte distribution width (RBC) [Ratio] 14.1 % 11.0-15.0 [facility] Estimated glomerular filtrat ion rate (GFR) non- Americanon 10-30-2023 GFR/1.73 sq M.predicted among non-blacks MDRD (S/P/Bld) [Vol rate/Area] 18 mL/min/{1.73_m2} Low >=60 [facility] Hematocrit Auto (Bld) [Volum e fraction]on 10-30-2023 Hematocrit (Bld) [Volume fraction] 28.0 % Low 36.0-48.0 [facility] Hemoglobin [Mass/volume] in Bloodon 10-30-2023 Hemoglobin (Bld) [Mass/Vol] 8.3 g/dL Low 12.0-16.0 [facility] - Chemistry and C hemistry - challengeon 10-30-2023 Albumin [Mass/Vol] 2.9 g/dL Low 3.4-5.0 [facility] Calcium [Mass/Vol] 8.6 mg/dL 8.5-10.1 [facility] Chloride [Moles/Vol] 107 mmol/L 98-107 [facility] CO2 [Moles/Vol] 28.1 mmol/L 21.0-32.0 [facility] Creatinine [Mass/Vol] 2.52 mg/dL High 0.55-1.02 [facility] GFR/1.73 sq M.predicted MDRD (S/P/Bld) [Vol rate/Area] 22 mL/min/{1.73_m2} Low >=60 [facility] Glucose [Mass/Vol] 100 mg/dL 74-106 [facility] Potassium [Moles/Vol] 5.7 mmol/L High 3.5-5.1 [facility] Sodium [Moles/Vol] 142 mmol/L 136-145 [facility] Urea nitrogen [Mass/Vol] 43.0 mg/dL High 7.0-18.0 [facility] Urea nitrogen/Creatinine [Mass ratio] 17.1 mg/mg [facility] Leukocytes [#/volume] correc katy for nucleated erythrocytes in Blood by Automated counon 10-30-2023 WBC corrected for nucl RBC Auto (Bld) [#/Vol] 4.6 10 3/uL 4.0-11.0 [facility] MCH Auto (RBC) [Entitic mass ]on 10-30-2023 MCH (RBC) [Entitic mass] 28.7 pg 26.7-34.0 [facility] MCHC Auto (RBC) [Mass/Vol]on 10-30-2023 MCHC (RBC) [Mass/Vol] 29.6 g/dL Low 29.9-35.2 [facility] MCV Auto (RBC) [Entitic vol] on 10-30-2023 MCV (RBC) [Entitic vol] 96.9 fL 81.0-99.0 [facility] No Panel Informationon 10-29 Parathyroid Hormone (Intact) 73 pg/mL Abnormal 15-65 [facility] Comment on above: Performed at: [facility] [employer] [place] [id number] Director: Deshaun Hunter PhD, Phone: [phone] Phosphorus Level 4.3 mg/dL 2.6-4.7 [facility] Platelet mean volume Auto (B ld) [Entitic vol]on 10-30-2023 Platelet mean volume (Bld) [Entitic vol] 9.8 fL 9.5-13.5 [facility] Platelets Auto (Bld) [#/Vol] on 10-30-2023 Platelets (Bld) [#/Vol] 178 10 3/uL 150-450 [facility] RBC Auto (Bld) [#/Vol]on RBC (Bld) [#/Vol] 2.89 10 6/uL Low 4.20-5.40 [facility] Serum or plasma anion gap de terminationon 10-30-2023 Anion gap [Moles/Vol] 12.6 mmol/L [facility] Erythrocyte distribution wid th Auto (RBC) [Ratio]on 10-07-2023 Erythrocyte distribution width (RBC) [Ratio] 14.2 % 11.0-15.0 [facility] Hematocrit Auto (Bld) [Volum e fraction]on 10-07-2023 Hematocrit (Bld) [Volume fraction] 28.0 % Low 36.0-48.0 [facility] Hemoglobin [Mass/volume] in Bloodon 10-07-2023 Hemoglobin (Bld) [Mass/Vol] 8.6 g/dL Low 12.0-16.0 [facility] Leukocytes [#/volume] correc katy for nucleated erythrocytes in Blood by Automated counon 10-07-2023 WBC corrected for nucl RBC Auto (Bld) [#/Vol] 5.1 10 3/uL 4.0-11.0 [facility] MCH Auto (RBC) [Entitic mass ]on 10-07-2023 MCH (RBC) [Entitic mass] 30.1 pg 26.7-34.0 [facility] MCHC Auto (RBC) [Mass/Vol]on 10-07-2023 MCHC (RBC) [Mass/Vol] 30.7 g/dL 29.9-35.2 [facility] MCV Auto (RBC) [Entitic vol] on 10-07-2023 MCV (RBC) [Entitic vol] 97.9 fL 81.0-99.0 [facility] Platelet mean volume Auto (B ld) [Entitic vol]on 10-07-2023 Platelet mean volume (Bld) [Entitic vol] 10.1 fL 9.5-13.5 [facility] Platelets Auto (Bld) [#/Vol] on 10-07-2023 Platelets (Bld) [#/Vol] 194 10 3/uL 150-450 [facility] RBC Auto (Bld) [#/Vol]on RBC (Bld) [#/Vol] 2.86 10 6/uL Low 4.20-5.40 [facility] Erythrocyte distribution wid th Auto (RBC) [Ratio]on 09-16-2023 Erythrocyte distribution width (RBC) [Ratio] 14.0 % 11.0-15.0 [facility] Estimated glomerular filtrat ion rate (GFR) non- Americanon 09-16-2023 GFR/1.73 sq M.predicted among non-blacks MDRD (S/P/Bld) [Vol rate/Area] 22 mL/min/{1.73_m2} Low >=60 [facility] Hematocrit Auto (Bld) [Volum e fraction]on 09-16-2023 Hematocrit (Bld) [Volume fraction] 25.6 % Low 36.0-48.0 [facility] Hemoglobin [Mass/volume] in Bloodon 09-16-2023 Hemoglobin (Bld) [Mass/Vol] 7.5 g/dL Low 12.0-16.0 [facility] Laboratory - Chemistry and C hemistry - challengeon 09-16-2023 Albumin [Mass/Vol] 3.1 g/dL Low 3.4-5.0 [facility] Calcium [Mass/Vol] 9.2 mg/dL 8.5-10.1 [facility] Chloride [Moles/Vol] 107 mmol/L 98-107 [facility] CO2 [Moles/Vol] 28.2 mmol/L 21.0-32.0 [facility] Creatinine [Mass/Vol] 2.17 mg/dL High 0.55-1.02 [facility] GFR/1.73 sq M.predicted MDRD (S/P/Bld) [Vol rate/Area] 26 mL/min/{1.73_m2} Low >=60 [facility] Glucose [Mass/Vol] 98 mg/dL 74-106 [facility] Potassium [Moles/Vol] 5.1 mmol/L 3.5-5.1 [facility] Sodium [Moles/Vol] 142 mmol/L 136-145 [facility] Urea nitrogen [Mass/Vol] 43.0 mg/dL High 7.0-18.0 [facility] Urea nitrogen/Creatinine [Mass ratio] 19.8 mg/mg [facility] Laboratory - Urinalysison Protein (U) [Mass/Vol] 117.6 mg/dL High <=11.9 [facility] Leukocytes [#/volume] correc katy for nucleated erythrocytes in Blood by Automated counon 09-16-2023 WBC corrected for nucl RBC Auto (Bld) [#/Vol] 5.4 10 3/uL 4.0-11.0 [facility] MCH Auto (RBC) [Entitic mass ]on 09-16-2023 MCH (RBC) [Entitic mass] 29.2 pg 26.7-34.0 [facility] MCHC Auto (RBC) [Mass/Vol]on 09-16-2023 MCHC (RBC) [Mass/Vol] 29.3 g/dL Low 29.9-35.2 [facility] MCV Auto (RBC) [Entitic vol] on 09-16-2023 MCV (RBC) [Entitic vol] 99.6 fL High 81.0-99.0 [facility] No Panel Informationon 09-15 Parathyroid Hormone (Intact) 75 pg/mL Abnormal 15-65 [facility] Comment on above: Performed at: [facility] [employer] [address] [id number] Director: Deshaun Hunter PhD, Phone: [phone] Phosphorus Level 4.6 mg/dL 2.6-4.7 [facility] Urine Random Creatinine 38.12 mg/dL 20.00-300. 00 [facility] Platelet mean volume Auto (B ld) [Entitic vol]on 09-16-2023 Platelet mean volume (Bld) [Entitic vol] 10.3 fL 9.5-13.5 [facility] Platelets Auto (Bld) [#/Vol] on 09-16-2023 Platelets (Bld) [#/Vol] 225 10 3/uL 150-450 [facility] RBC Auto (Bld) [#/Vol]on RBC (Bld) [#/Vol] 2.57 10 6/uL Low 4.20-5.40 [facility] Serum or plasma anion gap de terminationon 09-16-2023 Anion gap [Moles/Vol] 11.9 mmol/[facility] protein/creatinine rat ioon 09-16-2023 Protein/Creatinine (U) [Ratio] 3.08 [facility] Activated partial thrombopla stin time (aPTT) in platelet poor plasma by coagulation aOrdered By: Rin Ramirez on 09-01-2023 aPTT Coag (PPP) [Time] 30.5 s 25.1-36.5 [facility] Comment on above: A hematocrit value g reater than 55% may lead to inaccurate results in coagulation testing. Patients having hematocrit values >55% require a special collection tube for coagulation studies. Please contact the laboratory at [phone] for redraw instructions. Albumin [Mass/volume] in Ser um or Plasma by Bromocresol green (BCG) dye binding methoOrdered By: Rin Ramirez on 09-01-2023 Albumin BCG dye [Mass/Vol] 3.6 g/dL 3.5-5.7 [facility] Automated erythrocytes count in urine sediment (number/area)Ordered By: Rin Ramirez on 09-01-2023 RBC Auto (Urine sed) [#/Area] 50-100 [HPF] High 0-4 [facility] Automated leukocytes count i n urine sediment (number/area)Ordered By: Rin Ramirez on 09-01-2023 WBC Auto (Urine sed) [#/Area] 1-2 [HPF] 0-4 [facility] Bilirubin Test strip Ql (U)O rdered By: Rin Ramirez on 09-01-2023 Bilirubin Ql (U) Negative Negative [facility] Calcium [Mass/volume] in Ser um or PlasmaOrdered By: Rin Ramirez on 09-01-2023 Calcium [Mass/Vol] 8.9 mg/dL 8.6-10.3 [facility] Carbon dioxide, total [Moles /volume] in Serum or PlasmaOrdered By: Rin Ramirez on 09-01-2023 CO2 [Moles/Vol] 30.5 mmol/L 21.0-31.0 [facility] Chloride [Moles/volume] in S adriana or PlasmaOrdered By: Rin Ramirez on 09-01-2023 Chloride [Moles/Vol] 107 mmol/L 98-107 [facility] Color Auto (U)Ordered By: Domingo Ramirez on 09-01-2023 Color (U) Yellow Yellow [facility] Creatinine [Mass/volume] in Serum or PlasmaOrdered By: Rin Ramirez on 09-01-2023 Creatinine [Mass/Vol] 2.02 mg/dL High 0.60-1.20 [facility] Creatinine [Mass/volume] in UrineOrdered By: Rin Ramirez on 09-01-2023 Creatinine (U) [Mass/Vol] 52.0 mg/dL [facility] Comment on above: No reference range e stablished Erythrocyte distribution wid th Auto (RBC) [Ratio]Ordered By: Rin Ramirez on 09-01-2023 Erythrocyte distribution width (RBC) [Ratio] 14.7 % 11.9-15.3 [facility] Ferritin [Mass/volume] in Se rum or PlasmaOrdered By: Rin Ramirez on 09-01-2023 Ferritin [Mass/Vol] 16.5 ng/mL 11.0-306.8 [facility] Folate [Mass/volume] in Seru m or PlasmaOrdered By: Rin Ramirez on 09-01-2023 Folate [Mass/Vol] 16.5 ng/mL >5.9 [facility] Comment on above: Folate reference ran ge: >5.9 ng/mlThe WHO technical consultation on folate and vitamin [id number] has determined that folate concentrations lessthan 4 ng/ml are considered deficient. Glucose [Mass/volume] in Ser um or PlasmaOrdered By: Rin Ramirez on 09-01-2023 Glucose [Mass/Vol] 121 mg/dL High 70-100 [facility] Comment on above: ADA recommended refe rence rangeRandom Glucose Reference Range is dependent on time and content of last meal. Glucose of more than 200 mg/dL in a nonstressed, ambulatory subject supports the diagnosis of Diabetes Mellitus. Hematocrit Auto (Bld) [Volum e fraction]Ordered By: Rin Ramirez on 09-01-2023 Hematocrit (Bld) [Volume fraction] 25.0 % Low 34.0-46.4 [facility] Hemoglobin [Mass/volume] in BloodOrdered By: Rin Ramirez 09-01-2023 Hemoglobin (Bld) [Mass/Vol] 8.0 g/dL Low 11.8-15.4 [facility] INR in Platelet poor plasma by Coagulation assayOrdered By: Rin Ramirez on 09-01-2023 INR Coag (PPP) [Relative time] 1.0 {INR} [facility] Comment on above: INR Therapeutic Rang [...] on 09-01-2023 Iron [Mass/Vol] 122 ug/dL 50-212 [facility] Iron binding capacity [Mass/ volume] in Serum or PlasmaOrdered By: Rin Ramirez on 09-01-2023 Iron binding capacity [Mass/Vol] 360 ug/dL 255-450 [facility] Iron saturation [Mass Fracti on] in Serum or PlasmaOrdered By: Rin Ramirez on 09-01-2023 Iron saturation [Mass fraction] 33.9 % 20-50 [facility] Ketones Auto test strip (U) [Mass/Vol]Ordered By: Rin Ramirez on 09-01-2023 Ketones (U) [Mass/Vol] Negative Negative [facility] Laboratory - UrinalysisOrder ed By: Rin Ramirez on 09-01-2023 Hyaline casts LM Ql (Urine sed) 0-8 [LPF] 0-8 [facility] Leukocytes [#/volume] correc katy for nucleated erythrocytes in Blood by Automated counOrdered By: Rin Ramirez on 09-01-2023 WBC corrected for nucl RBC Auto (Bld) [#/Vol] 4.7 10*3/uL 3.8-11.6 [facility] MCH Auto (RBC) [Entitic mass ]Ordered By: Rin Ramirez on 09-01-2023 MCH (RBC) [Entitic mass] 29.3 pg 24.7-34.3 [facility] MCHC Auto (RBC) [Mass/Vol]Or dered By: Rin Ramirez on 09-01-2023 MCHC (RBC) [Mass/Vol] 31.9 g/dL Low 32.0-35.0 [facility] MCV Auto (RBC) [Entitic vol] Ordered By: Rin Ramirez on 09-01-2023 MCV (RBC) [Entitic vol] 92.0 fL 80-100 [facility] Magnesium [Mass/volume] in S adriana or PlasmaOrdered By: Rin Ramirez on 09-01-2023 Magnesium [Mass/Vol] 1.9 mg/dL 1.9-2.7 [facility] Microalbumin [Mass/volume] i n UrineOrdered By: Rin Ramirez on 09-01-2023 Albumin DL <= 20 mg/L (U) [Mass/Vol] mg/dL High 0.0-1.8 [facility] Nitrite Test strip Ql (U)Ord ered By: Rin Ramirez on 09-01-2023 Nitrite Ql (U) Negative Negative [facility] No Panel InformationOrdered By: Rin Ramirez on 09-01-2023 Estimated GFR (CKD-EPI) 24.043 mL/Min [facility] Creatinine Clearance (Chem 21.55 [facility] Parathyrin.intact [Mass/volu me] in Serum or PlasmaOrdered By: Rin Ramirez 09-01-2023 Parathyrin.intact [Mass/Vol] 188.2 pg/mL High 12-88 [facility] Phosphate [Mass/volume] in S adriana or PlasmaOrdered By: Rin Ramirez on 09-01-2023 Phosphate [Mass/Vol] 4.2 mg/dL 2.5-4.5 [facility] Platelet mean volume Auto (B ld) [Entitic vol]Ordered By: Rin Ramirez on 09-01-2023 Platelet mean volume (Bld) [Entitic vol] 8.1 fL 6.3-10.7 [facility] Platelets Auto (Bld) [#/Vol] Ordered By: Rin Ramirez on 09-01-2023 Platelets (Bld) [#/Vol] 214 10*3/uL 150-450 [facility] Potassium [Moles/volume] in Serum or PlasmaOrdered By: Rin Ramirez on 09-01-2023 Potassium [Moles/Vol] 4.7 mmol/L 3.5-5.1 [facility] Protein Auto test strip (U) [Mass/Vol]Ordered By: Rin Ramirez on 09-01-2023 Protein (U) [Mass/Vol] 300 mg/dL High Negative [facility] Protein [Mass/volume] in Uri neOrdered By: Rin Ramirez on 09-01-2023 Protein (U) [Mass/Vol] 199 mg/dL High 0-9 [facility] Prothrombin time (PT)Ordered By: Rin Ramirez on 09-01-2023 PT Coag (PPP) [Time] 11.4 s 9.0-12.9 [facility] Comment on above: A hematocrit value g reater than 55% may lead to inaccurate results in coagulation testing. Patients having hematocrit values >55% require a special collection tube for coagulation studies. Please contact the laboratory at [phone] for redraw instructions. RBC Auto (Bld) [#/Vol]Ordere d By: Rin Ramirez on 09-01-2023 RBC (Bld) [#/Vol] 2.72 10*6/uL Low 3.60-5.00 [facility] Serum or plasma anion gap de terminationOrdered By: Rin Ramirez on 09-01-2023 Anion gap [Moles/Vol] 9.2 mmol/L 6.0-15.0 [facility] Sodium [Moles/volume] in Ser um or PlasmaOrdered By: Rin Ramirez on 09-01-2023 Sodium [Moles/Vol] 142 mmol/L 136-145 [facility] Sodium [Moles/volume] in Uri neOrdered By: Rin Ramirez on 09-01-2023 Sodium (U) [Moles/Vol] 137 mmol/L [facility] Comment on above: No reference range e stablished Specific gravity Auto test s trip (U) [Rel density]Ordered By: Rin Ramirez on 09-01-2023 Specific gravity (U) [Rel density] 1.015 1.001-1.03 0 [facility] Squamous epithelial cells de tection in urine sediment by light microscopyOrdered By: Rin Ramirez on 09-01-2023 Epithelial cells.squamous LM Ql (Urine sed) 0-1 [HPF] 0-2 [facility] Transferrin [Mass/volume] in Serum or PlasmaOrdered By: Rin Ramirez on 09-01-2023 Transferrin [Mass/Vol] 257 mg/dL 203-362 [facility] Urea nitrogen [Mass/volume] in Serum or PlasmaOrdered By: Rin Ramirez on 09-01-2023 Urea nitrogen [Mass/Vol] 32 mg/dL High 7-25 [facility] Urine bacteria detection by automated methodOrdered By: Rin Ramirez on 09-01-2023 Bacteria Auto Ql (U) None seen None Seen [facility] Urine clarity by refractomet ry automatedOrdered By: Rin Ramirez on 09-01-2023 Clarity Refractometry automated (U) Cloudy Abnormal Clear [facility] Urine glucose measurement by automated test strip (mass/volume)Ordered By: Rin Ramirez on 09-01-2023 Glucose Auto test strip (U) [Mass/Vol] Normal mg/dL Normal [facility] Urine hemoglobin detection b y automated test stripOrdered By: Rin Ramirez on 09-01-2023 Hemoglobin Auto test strip Ql (U) 1+ High Negative [facility] Urine leukocyte esterase det ection by automated test stripOrdered By: Rin Ramirez on 09-01-2023 Leukocyte esterase Auto test strip Ql (U) Negative Negative [facility] Urine microalbumin/creatinin e mass ratioOrdered By: Rin Ramirez on 09-01-2023 Albumin/Creatinine DL <= 20 mg/L (U) [Mass ratio] TNP [facility] Comment on above: Test not performed Urine protein/creatinine rat ioOrdered By: Rin Ramirez on 09-01-2023 Protein/Creatinine (U) [Ratio] 3827 mg/g{Cre} High 0-200 [facility] Urobilinogen Auto test strip (U) [Mass/Vol]Ordered By: Rin Ramirez on 09-01-2023 Urobilinogen (U) [Mass/Vol] Normal mg/dL Normal [facility] Vitamin B12 ser/plasOrdered By: Rin Ramirez on 09-01-2023 Cobalamin (Vitamin B12) [Mass/Vol] 862 pg/mL 180-914 [facility] Vitamin D+Metabolites [Mass/ volume] in Serum or PlasmaOrdered By: Rin Ramirez on 09-01-2023 Vitamin D+Metabolites [Mass/Vol] 18.3 ng/mL Low 30-100 [facility] Comment on above: VITAMIN D STATUS 25( [place])VITAMIN D RANGE (ng/mL) Deficient <20 Insufficient 20 to <30Sufficient 30 to 100Reference: Jacoby MF,Rell NC, Xochitl WILLIAMSON, et al. Evaluation,treatment, and prevention of vitamin D deficiency; an Endocrine Society clinical practice guideline. JCEM. 2010; 96(7):1911-30. pH Auto test strip (U)Ordere d By: Rin Ramirez on 09-01-2023 pH (U) 7.0 [pH] 5.0-9.0 [facility] HbA1c HPLC (Bld) [Mass fract ion]on 08-20-2023 HbA1c (Bld) [Mass fraction] 5.7 % [facility] No Panel Informationon 08-19 Bedside Glucose 106 [facility] No Panel Informationon 08-04 Miscellaneous Test COMMENT . [facility] Comment on above: Test Ordered: [id number] Prot Electro+Interp, 24-Hr UrProtein,Total,Urine 132.1 mg/dL CB Reference Range: Not Estab.Prot,24hr calculated 2741 [H ] mg/24 hr CB Reference Range: 30-150Albumin, U 66.3 % CB Reference Range: .Ucyzb-1-Wnipagmm, U 7.5 % CB Reference Range: .Vkocr-1-Eislsyzw, U 10.6 % CB Reference Range: .Beta Globulin, U 11.9 % CB Reference Range: .Gamma Globulin, U 3.7 % CB Reference Range: .M-Tr, % Note: % CB Not Observed Reference Range: Not ObservedM-Tr, mg/24 hr [facility] [employer]OLAB Reference Range: .Please note: Comment CB Reference Range: .Protein electrophoresis scan will follow via computer,mail, or golf club head former delivery.P E Interpretation, U Comment CB Reference Range: .The urine protein electrophoresis pattern reflects thepresence of specific higher molecular mass proteins withmoderate proteinuria. This pattern may be characterized asrepresenting a severe selective glomerular nephropathyindicating increased glomerular permeability. Monoclonalprotein is not apparent.Performed at: [facility] [place] [id number] Director: Deshaun Hunter PhD, Phone: [phone] Activated partial thrombopla stin time (aPTT) in platelet poor plasma by coagulation aon 08-01-2023 aPTT Coag (PPP) [Time] 38.6 s 22.3-36.2 [facility] Atypical perinuclear antineu trophil cytoplasmic antibodies measurementon 08-01-2023 Neutrophil cytoplasmic Ab.perinuclear.atypica l IF (S) [Titer] <1:20 titer Neg:<1:20 [facility] Comment on above: The atypical pANCA p attern has been observed in asignificant percentage of patients with ulcerative colitis,primary sclerosing cholangitis and autoimmune hepatitis. Automated urine specific gra vity by refractometryon 08-01-2023 Specific gravity Refractometry automated (U) [Rel density] 1.020 1.005-1.02 5 [facility] Bilirubin Auto test strip (U ) [Mass/Vol]on 08-01-2023 Bilirubin (U) [Mass/Vol] Negative NEGATIVE [facility] Cefuroxime free [Mass/Vol]on 08-01-2023 Anti-Nuclear Antibody Profile Negative Negative [facility] Comment on above: Performed at: [employer] [place], [place] [id number] Director: Deshaun Hunter PhD, Phone: [phone] Performed at: [employer] [place], [place] [id number] Director: Deshaun Hunter PhD, Phone: [phone] Color Auto (U)on 08-01-2023 Color (U) LT. YELLOW YELLOW [facility] Erythrocyte distribution wid th Auto (RBC) [Ratio]on 08-01-2023 Erythrocyte distribution width (RBC) [Ratio] 13.1 % 11.0-15.0 [facility] Estimated glomerular filtrat ion rate (GFR) non- Americanon 08-01-2023 GFR/1.73 sq M.predicted among non-blacks MDRD (S/P/Bld) [Vol rate/Area] 27 mL/min/{1.73_m2} >=60 [facility] Globulin Calc (S) [Mass/Vol] on 08-01-2023 Globulin (S) [Mass/Vol] 3.3 g/dL [facility] Glomerular basement membrane Ab [Units/volume] in Serum by Immunoassayon 08-01-2023 Glomerular basement membrane Ab IA Qn (S) <0.2 units 0.0-0.9 [facility] Comment on above: Performed at: [employer] [address] [id number] Director: Jhon Roberts MD, Phone: [phone] at: [facility] [address] [id number] Director: Deshaun Hunter PhD, Phone: [phone] HBV surface Ag IA Qlon 07-31 Hepatitis B Surface Antigen Negative Negative [facility] Comment on above: Performed at: [facility] [address] [id number] Director: Deshaun Hunter PhD, Phone: [phone] Performed at: [facility] [address] [id number] Director: Deshaun Hunter PhD, Phone: [phone] Hematocrit Auto (Bld) [Volum e fraction]on 08-01-2023 Hematocrit (Bld) [Volume fraction] 27.0 % 36.0-48.0 [facility] Hemoglobin [Mass/volume] in Bloodon 08-01-2023 Hemoglobin (Bld) [Mass/Vol] 7.8 g/dL 12.0-16.0 [facility] INR in Platelet poor plasma by Coagulation assayon 08-01-2023 INR Coag (PPP) [Relative time] 2.43 {INR} [facility] Comment on above: DESIRED INR:2.0-3.0 CONDITIONS NOT LISTED BELOW2.5-3.5 FOR PROSTHETIC HEART VALVE REPLACEMENT2.5-3.5 RECURRENT THROMBOSIS Immunofixation for Urineon 0 08-01-2023 Interpretation Immunofixation (U) [Interp] Comment . [facility] Comment on above: No monoclonality det ected.Performed at: [facility] [id number] Director: Deshaun Hunter PhD, Phone: [phone] Iron binding capacity [Mass/ volume] in Serum or Plasmaon 08-01-2023 Iron binding capacity [Mass/Vol] 270.0 ug/dL 250.0-450. 0 [facility] Iron saturation [Mass Fracti on] in Serum or Plasmaon 08-01-2023 Iron saturation [Mass fraction] 14.8 % [facility] Ketones Auto test strip (U) [Mass/Vol]on 08-01-2023 Ketones (U) [Mass/Vol] Negative NEGATIVE Fi [facility] Laboratory - Chemistry and C hemistry - challengeon 08-01-2023 Albumin [Mass/Vol] 2.7 g/dL 3.4-5.0 [facility] ALP [Catalytic activity/Vol] 50 U/L 46-116 [facility] ALT [Catalytic activity/Vol] 18 U/L 14-59 [facility] AST [Catalytic activity/Vol] 12 U/L 15-37 [facility] Bilirubin [Mass/Vol] 0.2 mg/dL 0.2-1.0 [facility] Calcium [Mass/Vol] 8.8 mg/dL 8.5-10.1 [facility] Chloride [Moles/Vol] 105 mmol/L 98-107 [facility] CO2 [Moles/Vol] 32.1 mmol/L 21.0-32.0 [facility] Cobalamin (Vitamin B12) [Mass/Vol] 603.0 pg/mL 193.0-986. 0 [facility] Creatinine [Mass/Vol] 1.80 mg/dL 0.55-1.02 [facility] Ferritin [Mass/Vol] 32.0 ng/mL 8.0-252.0 [facility] GFR/1.73 sq M.predicted MDRD (S/P/Bld) [Vol rate/Area] 33 mL/min/{1.73_m2} >=60 [facility] Glucose [Mass/Vol] 112 mg/dL 74-106 [facility] Iron [Mass/Vol] 40.0 ug/dL 50.0-170.0 [facility] Magnesium [Mass/Vol] 1.9 mg/dL 1.8-2.4 [facility] Potassium [Moles/Vol] 4.3 mmol/L 3.5-5.1 [facility] Protein [Mass/Vol] 6.0 g/dL 6.4-8.2 [facility] Sodium [Moles/Vol] 145 mmol/L 136-145 [facility] Urea nitrogen [Mass/Vol] 33.0 mg/dL 7.0-18.0 [facility] Urea nitrogen/Creatinine [Mass ratio] 18.3 mg/mg [facility] Laboratory - Urinalysison Protein (U) [Mass/Vol] 181.1 mg/dL <=11.9 [facility] Leukocytes [#/volume] correc katy for nucleated erythrocytes in Blood by Automated counon 08-01-2023 WBC corrected for nucl RBC Auto (Bld) [#/Vol] 6.4 10 3/uL 4.0-11.0 [facility] MCH Auto (RBC) [Entitic mass ]on 08-01-2023 MCH (RBC) [Entitic mass] 29.2 pg 26.7-34.0 [facility] MCHC Auto (RBC) [Mass/Vol]on 08-01-2023 MCHC (RBC) [Mass/Vol] 28.9 g/dL 29.9-35.2 [facility] MCV Auto (RBC) [Entitic vol] on 08-01-2023 MCV (RBC) [Entitic vol] 101.1 fL 81.0-99.0 [facility] Myeloperoxidase Ab [Units/vo lume] in Serum by Immunoassayon 08-01-2023 Myeloperoxidase Ab IA Qn (S) <0.2 units 0.0-0.9 [facility] No Panel Informationon 07-31 25-Hydroxy Vitamin D Total 16.6 ng/mL [facility] Comment on above: <20 ng/mL Vit D defi cient20-<30 ng/mL Vit D pfeyivsenwzx17-244 ng/mL Vit D sufficient>100 ng/mL Potential Toxicity Folate 13.00 ng/mL 8.60-58.90 [facility] Miscellaneous Test COMMENT . [facility] Comment on above: Test Ordered: [id number] Cryoglobulin, Ql, Serum, RflxCryoglobulin, Ql, Serum, Rflx Comment Reference Range: None detectedNone Detected at 72 hoursThis test was developed and its performance characteristicsdetermined by [employer]. It has not been cleared orapproved by the Food and Drug Administration.Performed at: [facility] [address] [id number] Director: Deshaun Hunter PhD, Phone: [phone] Parathyroid Hormone (Intact) 60 pg/mL 15-65 [facility] Comment on above: Performed at: [facility] [address] [id number] Director: Deshaun Hunter PhD, Phone: [phone] Perinuclear ANCA (p-ANCA) Antibody <1:20 titer Neg:<1:20 [facility] Comment on above: The presence of [...] only by EIA. Ref. AM J Clin [id number];111:507-513. Phosphorus Level 3.8 mg/dL 2.6-4.7 [facility] Urine Random Creatinine 27.68 mg/dL 20.00-300. 00 [facility] Platelet mean volume Auto (B ld) [Entitic vol]on 08-01-2023 Platelet mean volume (Bld) [Entitic vol] 10.5 fL 9.5-13.5 [facility] Platelets Auto (Bld) [#/Vol] on 08-01-2023 Platelets (Bld) [#/Vol] 227 10 3/uL 150-450 [facility] Protein Auto test strip (U) [Mass/Vol]on 08-01-2023 Protein (U) [Mass/Vol] 100 mg/dL NEG/TRACE Fi [facility] Proteinase 3 Ab [Units/volum e] in Serum by Immunoassayon 08-01-2023 Proteinase 3 Ab IA Qn (S) <0.2 units 0.0-0.9 [facility] Prothrombin time (PT)on 07-17 PT Coag (PPP) [Time] 24.5 s 9.0-11.6 [facility] RBC Auto (Bld) [#/Vol]on RBC (Bld) [#/Vol] 2.67 10 6/uL 4.20-5.40 [facility] Serum classic neutrophil cyt oplasmic antibody titer by immunofluorescenceon 08-01-2023 Neutrophil cytoplasmic Ab.classic IF (S) [Titer] <1:20 titer Neg:<1:20 [facility] Serum or plasma albumin/glob ulin mass ratioon 08-01-2023 Albumin/Globulin [Mass ratio] 0.8 {ratio} [facility] Serum or plasma anion gap de terminationon 08-01-2023 Anion gap [Moles/Vol] 12.2 mmol/L Fi [facility] Serum or plasma complement C 3 measurement (mass/volume)on 08-01-2023 Complement C3 [Mass/Vol] 140 mg/dL 82-167 [facility] Serum or plasma complement C 4 measurement (mass/volume)on 08-01-2023 Complement C4 [Mass/Vol] 30 mg/dL 12-38 [facility] Comment on above: Performed at: [address] [id number] Director: Deshanu Hunter PhD, Phone: [phone] Specific gravity Auto test s trip (U) [Rel density]on 08-01-2023 Specific gravity (U) [Rel density] CLEAR CLEAR [facility] Urine glucose measurement by test strip (mass/volume)on 08-01-2023 Glucose Test strip (U) [Mass/Vol] Negative NEGATIVE [facility] Urine hemoglobin detection b y automated test stripon 08-01-2023 Hemoglobin Auto test strip Ql (U) LARGE NEGATIVE [facility] Urine nitrite detection by a utomated test stripon 08-01-2023 Nitrite Auto test strip Ql (U) Negative NEGATIVE [facility] Urine protein/creatinine rat ioon 08-01-2023 Protein/Creatinine (U) [Ratio] 6.54 [facility] Urobilinogen Auto test strip (U) [Mass/Vol]on 08-01-2023 Urobilinogen Qn (U) 0.2 {Radha'U}/dL 0.2-1.0 [facility] pH Auto test strip (U)on pH (U) 7.0 [pH] 5.0-9.0 [facility] A1C HEMOGLOBINon 02-19-2023 HbA1c (Bld) [Mass fraction] 5.8 % [employer] [facility] [employer] Other Glucose - FINGER STICKon Glucose [Mass/Vol] 174 mg/dL [facility] [employer] Other HbA1c (Bld) [Mass fraction]o n 02-19-2023 A1C HEMOGLOBIN [facility] [employer] Other PROF 14(COMP METB)on 023 Albumin [Mass/Vol] 2.9 g/dL Critically low 3.4-5.0 [facility] Comment on above: Performed By: #### C MP #### [facility] [address] [place] [address] Dr. Lamar Lin Albumin/Globulin [Mass ratio] 0.8 {ratio} Normal [facility] Comment on above: Performed By: #### C MP #### [facility] [address] [address] [address] Lamar Lin ALP [Catalytic activity/Vol] 70 U/L Normal 46-116 [facility] Comment on above: Performed By: #### C MP #### [facility] [address] [address] [address] Lamar Lin ALT [Catalytic activity/Vol] 14 U/L Normal 14-59 [facility] Comment on above: Performed By: #### C MP #### [facility] [address] [address] [address] Lamar Lin Anion gap [Moles/Vol] 10.5 mmol/L Normal [facility] Comment on above: Performed By: #### C MP #### [facility] [address] [address] [address] Lamar Lin AST [Catalytic activity/Vol] 10 U/L Critically low 15-37 [facility] Comment on above: Performed By: #### C MP #### [facility] [address] [address] [address] Lamar Lin Bilirubin [Mass/Vol] 0.2 mg/dL Normal 0.2-1.0 [facility] Comment on above: Performed By: #### C MP #### [facility] [address] [address] [address] Lamar Lin Calcium [Mass/Vol] 9.4 mg/dL Normal 8.5-10.1 [facility] Comment on above: Performed By: #### C MP #### [facility] [address] [address] [address] Lamar Lin Chloride [Moles/Vol] 104 mmol/L Normal 98-107 [facility] Comment on above: Performed By: #### C MP #### [facility] [address] [address] [address] Lamar Lin CO2 [Moles/Vol] 34.9 mmol/L Critically high 21.0-32.0 [facility] Comment on above: Performed By: #### C MP #### [facility] [address] [address] [address] Lamar Lin Creatinine [Mass/Vol] 0.96 mg/dL Normal 0.55-1.02 [facility] Comment on above: Performed By: #### C MP #### [facility] [address] [address] [address] Lamar Lin EGFR-AF PARAGUAYAN >60 Normal >=60 [facility] Comment on above: Performed By: #### C MP #### [facility] [address] [address] [address] Lamar Lin EGFR-NON AF PARAGUAYAN 56 mL/min/1.73m2 Critically low >=60 [facility] Comment on above: Performed By: #### C MP #### [facility] [address] [address] [address] Lamar Lin Globulin (S) [Mass/Vol] 3.7 g/dL Normal [facility] Comment on above: Performed By: #### C MP #### [facility] [address] [address] [address] Lamar Lin Glucose [Mass/Vol] 132 mg/dL Critically high 74-106 [facility] Comment on above: Performed By: #### C MP #### [facility] [address] [address] [address] Lamar Lin Potassium [Moles/Vol] 4.4 mmol/L Normal 3.5-5.1 [facility] Comment on above: Performed By: #### C MP #### [facility] [address] [address] [address] Lamar Lin Protein [Mass/Vol] 6.6 g/dL Normal 6.4-8.2 [facility] Comment on above: Performed By: #### C MP #### [facility] [address] [address] [address] Lamar Lin Sodium [Moles/Vol] 145 mmol/L Normal 136-145 [facility] Comment on above: Performed By: #### C MP #### [facility] [address] [address] [address] Lamar Lin Urea nitrogen [Mass/Vol] 28.0 mg/dL Critically high 7.0-18.0 [facility] Comment on above: Performed By: #### C MP #### [facility] [address] [place], [place] [address] Dr. Lamar Lin Urea nitrogen/Creatinine [Mass ratio] 29.2 mg/mg Normal [facility] Comment on above: Performed By: #### C MP #### [facility] [address] [place], [place] [address] Dr. Lamar Lin A1C with Estimated Average G donald 08-19-2022 HbA1c (Bld) [Mass fraction] 6.500 % High 4.3-5.6 % [facility] Other HbA1c (Bld) [Mass fraction] 140 mg/dL [facility] Other Comprehensive Metabolic Pane [facility] 08-19-2022 Albumin [Mass/Vol] 3.546895 g/dL Normal 3.5-5.7 g/dL [facility] Other Albumin/Globulin [Mass ratio] 1.7 {ratio} [facility] Other ALP [Catalytic activity/Vol] 56 U/L Normal 34-104 U/L [facility] Other ALT [Catalytic activity/Vol] 14 U/L Normal 7-52 U/L [facility] Other AST [Catalytic activity/Vol] 15 U/L Normal 13-39 U/L [facility] Other Bilirubin [Mass/Vol] 0.6466944 mg/dL Low 0.3- 1.0 mg/dL [facility] Other Calcium [Mass/Vol] 9.9040890 mg/dL Normal 8.6-10 .3 mg/dL [facility] Other Chloride [Moles/Vol] 103 mmol/L Normal 98-107 mmol/L [facility] Other CO2 [Moles/Vol] 34.62757327 mmol/L High 21.0-3 1.0 mmol/L [facility] Other Creatinine [Mass/Vol] 0.36438676 mg/dL Normal 0. 60-1.20 mg/dL [facility] Other GFR/1.73 sq M.predicted MDRD (S/P/Bld) [Vol rate/Area] mL/min/{1.73_m2} [facility] Other Glucose [Mass/Vol] 156 mg/dL High 70-100 mg/dL [facility] Other Potassium [Moles/Vol] 4.80200846 mmol/L Normal 3 .5-5.1 mmol/L [facility] Other Protein [Mass/Vol] 5.107576 g/dL Low 6.4-8.9 g/dL [facility] Other Sodium [Moles/Vol] 144 mmol/L Normal 136-145 mmol/L [facility] Other Urea nitrogen [Mass/Vol] 24 mg/dL Normal 7-25 mg/dL [facility] Other Comprehensive Metabolic Panel 2.1 g/dL [facility] Other Glucose - FINGER STICKon Glucose [Mass/Vol] 205 mg/dL [facility] Other Lipid Panelon 08-19-2022 Cholesterol [Mass/Vol] 172 mg/dL Normal 140-2 00 mg/dL [facility] Other Cholesterol in HDL [Mass/Vol] 33 mg/dL Low 35-85 mg/dL [facility] Other Cholesterol in LDL Elph Qn 95 mg/dL Normal 0-100 mg/dL [facility] Other Cholesterol.total/Chol esterol in HDL [Mass ratio] 5.2 {ratio} <5.0 [facility] Other Lipid Panel 219 mg/dL High 0-149 mg/dL [facility] Other Lipid Panel 43 mg/dL [facility] [employer] Other MicroAlb Creat Ratio,Uon Albumin DL <= 20 mg/L (U) [Mass/Vol] mg/dL High 0.0-1.8 [facility] Other Albumin/Creatinine DL <= 20 mg/L (U) [Mass ratio] TNP 0.0-30.0 [facility] [employer] Other Creatinine (U) [Mass/Vol] 52.1178723 mg/dL [facility] [employer] Other Vitamin B12on 08-19-2022 Cobalamin (Vitamin B12) [Mass/Vol] 345 pg/mL Normal 180-914 pg/mL [facility] Other A1C HEMOGLOBINon 02-27-2022 HbA1c (Bld) [Mass fraction] 6.1 % [facility] [employer] Other Glucose - FINGER STICKon Glucose [Mass/Vol] 159 mg/dL [facility] [employer] Other HbA1c (Bld) [Mass fraction]o n 02-27-2022 A1C HEMOGLOBIN [facility] [employer] Other FREE T4on 10-30-2021 Free T4 [Mass/Vol] 1.11 ng/dL Normal 0.76-1.46 [facility] Comment on above: Performed By: #### F T4 #### [facility] [address] [address] [address] Lamar Lin T4on 10-30-2021 T4 [Mass/Vol] 8.30 ug/dL Normal 4.80-13.90 [facility] Comment on above: Performed By: #### T 4, TSH #### [facility] [address] [address] [address] Lamar Lin TSHon 10-30-2021 TSH 2.475 uIU/mL Normal 0.358-3.74 0 [facility] Comment on above: Performed By: #### T 4, TSH #### [facility] [address] [address] [address] Lamar Lin Glucoseon 05-23-2021 Glucose [Mass/Vol] 167 mg/dL [facility] Other Vital Signs Date Time Vital Sign Value Performing Clinician Facility 11-02-2024 09:18-0400 Body height 152.4 cm Luci Gant DPM Work Phone: [facility] 11-02-2024 09:18-0400 Body mass index (BMI) [Ratio] 39.06 kg/m2 Luci Stalin DPM Work Phone: [facility] 11-02-2024 09:18-0400 Body weight 90.72 kg Luci Stalin DPM Work Phone: [facility] 10-26-2024 10:06-0400 Body height 152.4 cm Anika Henry SEED SPECIALIST-C Work Phone: [facility] 10-26-2024 10:06-0400 Body mass index (BMI) [Ratio] 37.3 kg/m2 Anika Henry SEED SPECIALIST-C Work Phone: [facility] 10-26-2024 10:06-0400 Body weight 86.69 kg Anika Henry SEED SPECIALIST-C Work Phone: [facility] 10-26-2024 10:06-0400 Diastolic blood pressure 51 mm[Hg] Anika Henry SEED SPECIALIST-C Work Phone: [facility] 10-26-2024 10:06-0400 Heart rate 59 /min Anika Henry SEED SPECIALIST-C Work Phone: [facility] 10-26-2024 10:06-0400 Inhaled oxygen flow rate 2 L/min Anika Henry SEED SPECIALIST-C Work Phone: [facility] 10-26-2024 10:06-0400 Respiratory rate 16 /min Anika Henry SEED SPECIALIST-C Work Phone: [facility] 10-26-2024 10:06-0400 SaO2% (BldA) [Mass fraction] 94 % Anika Elaine SEED SPECIALIST-C Work Phone: [facility] 10-26-2024 10:06-0400 Systolic blood pressure 111 mm[Hg] Anika Elaine SEED SPECIALIST-C Work Phone: [facility] 10-05-2024 13:18-0400 Body height 152.4 cm Anika Marsmer SEED SPECIALIST-C Work Phone: [facility] 10-05-2024 13:18-0400 Diastolic blood pressure 75 mm[Hg] Anika Marsmer SEED SPECIALIST-C Work Phone: [facility] 10-05-2024 13:18-0400 Heart rate 64 /min Anika Marsmer SEED SPECIALIST-C Work Phone: [facility] 10-05-2024 13:18-0400 Inhaled oxygen flow rate 2 L/min Anika Marsmer SEED SPECIALIST-C Work Phone: [facility] 10-05-2024 13:18-0400 Respiratory rate 16 /min Anika Elaine SEED SPECIALIST-C Work Phone: [facility] 10-05-2024 13:18-0400 SaO2% (BldA) [Mass fraction] 96 % Anika Marsmer SEED SPECIALIST-C Work Phone: [facility] 10-05-2024 13:18-0400 Systolic blood pressure 155 mm[Hg] Anika Henry SEED SPECIALIST-C Work Phone: [facility] 09-13-2024 10:56-0400 Body height 152.4 cm Anika Marsmer SEED SPECIALIST-C Work Phone: [facility] 09-13-2024 10:56-0400 Body mass index (BMI) [Ratio] 38.5 kg/m2 Anika Marsmer SEED SPECIALIST-C Work Phone: [facility] 09-13-2024 10:56-0400 Body weight 89.41 kg Anika Henry SEED SPECIALIST-C Work Phone: [facility] 09-13-2024 10:56-0400 Diastolic blood pressure 63 mm[Hg] Anika Marsmer SEED SPECIALIST-C Work Phone: [facility] 09-13-2024 10:56-0400 Heart rate 95 /min Anika Henry SEED SPECIALIST-C Work Phone: [facility] 09-13-2024 10:56-0400 Respiratory rate 18 /min Anika Henry SEED SPECIALIST-C Work Phone: [facility] 09-13-2024 10:56-0400 SaO2% (BldA) [Mass fraction] 60 % Anika Henry SEED SPECIALIST-C Work Phone: [facility] 09-13-2024 10:56-0400 Systolic blood pressure 114 mm[Hg] Anika Marsmer SEED SPECIALIST-C Work Phone: [facility] 08-17-2024 14:03-0400 Body height 152.4 cm [facility] 08-17-2024 14:03-0400 Body mass index (BMI) [Ratio] 38.2 kg/m2 [facility] 08-17-2024 14:03-0400 Body weight 88.96 kg [facility] 08-17-2024 14:03-0400 Diastolic blood pressure 70 mm[Hg] [facility] 08-17-2024 14:03-0400 Heart rate 60 /min [facility] 08-17-2024 14:03-0400 Respiratory rate 18 /min [facility] 08-17-2024 14:03-0400 SaO2% (BldA) [Mass fraction] 94 % [facility] 08-17-2024 14:03-0400 Systolic blood pressure 132 mm[Hg] [facility] 08-05-2024 13:03-0400 Body height 165.1 cm Kaity Leija MD [facility] [employer] [facility] 08-05-2024 13:03-0400 Body mass index (BMI) [Ratio] 33.15 kg/m2 Kaity Leija MD Work Phone: [facility] 08-05-2024 13:03-0400 Body weight 90.36 kg Kaity Leija MD Work Phone: [facility] 08-05-2024 13:03-0400 Diastolic blood pressure 58 mm[Hg] Kaity Leija MD Work Phone: [facility] 08-05-2024 13:03-0400 Heart rate 59 /min Kaity Leija MD Work Phone: [facility] 08-05-2024 13:03-0400 Systolic blood pressure 116 mm[Hg] Kaity Leija MD Work Phone: [facility] 07-27-2024 13:51-0400 Body height 152.4 cm [facility] 07-27-2024 13:51-0400 Body mass index (BMI) [Ratio] 40.4 kg/m2 [facility] 07-27-2024 13:51-0400 Body weight 93.89 kg [facility] 07-27-2024 13:51-0400 Diastolic blood pressure 64 mm[Hg] [facility] 07-27-2024 13:51-0400 Heart rate 66 /min [facility] 07-27-2024 13:51-0400 Inhaled oxygen flow rate 2 L/min [facility] 07-27-2024 13:51-0400 Respiratory rate 18 /min [facility] 07-27-2024 13:51-0400 SaO2% (BldA) [Mass fraction] 97 % [facility] 07-27-2024 13:51-0400 Systolic blood pressure 115 mm[Hg] [facility] 2024 09:55-0500 Body height 152.4 cm [facility] 2024 09:55-0500 Body mass index (BMI) [Ratio] 42.6 kg/m2 [facility] 2024 09:55-0500 Body temperature 98.2 [degF] [facility] 2024 09:55-0500 Body weight 99.05 kg [facility] 2024 09:55-0500 Diastolic blood pressure 68 mm[Hg] [facility] 2024 09:55-0500 Heart rate 71 /min [facility] 2024 09:55-0500 Inhaled oxygen flow rate 2 L/min [facility] 2024 09:55-0500 Respiratory rate 20 /min [facility] 2024 09:55-0500 SaO2% (BldA) [Mass fraction] 95 % [facility] 2024 09:55-0500 Systolic blood pressure 145 mm[Hg] [facility] 06-17-2024 13:57-0500 Body height 152.4 cm [facility] 06-17-2024 13:57-0500 Body mass index (BMI) [Ratio] 39.6 kg/m2 [facility] 06-17-2024 13:57-0500 Body weight 92.19 kg [facility] 06-17-2024 13:57-0500 Diastolic blood pressure 61 mm[Hg] [facility] 06-17-2024 13:57-0500 Heart rate 66 /min [facility] 06-17-2024 13:57-0500 Respiratory rate 16 /min [facility] 06-17-2024 13:57-0500 SaO2% (BldA) [Mass fraction] 98 % [facility] 06-17-2024 13:57-0500 Systolic blood pressure 118 mm[Hg] [facility] 06-14-2024 13:56-0500 Body height 152.4 cm [facility] 06-14-2024 13:56-0500 Body mass index (BMI) [Ratio] 40.2 kg/m2 [facility] 06-14-2024 13:56-0500 Body weight 93.52 kg [facility] 06-14-2024 13:56-0500 Diastolic blood pressure 79 mm[Hg] [facility] 06-14-2024 13:56-0500 Heart rate 73 /min [facility] 06-14-2024 13:56-0500 Respiratory rate 18 /min [facility] 06-14-2024 13:56-0500 SaO2% (BldA) [Mass fraction] 95 % [facility] 06-14-2024 13:56-0500 Systolic blood pressure 158 mm[Hg] [facility] 06-03-2024 11:34-0500 Body height 152.4 cm [facility] 06-03-2024 11:34-0500 Body mass index (BMI) [Ratio] 39.4 kg/m2 [facility] 06-03-2024 11:34-0500 Body temperature 97 [degF] [facility] 06-03-2024 11:34-0500 Body weight 91.73 kg [facility] 06-03-2024 11:34-0500 Diastolic blood pressure 59 mm[Hg] [facility] 06-03-2024 11:34-0500 Heart rate 72 /min [facility] 06-03-2024 11:34-0500 Respiratory rate 16 /min [facility] 06-03-2024 11:34-0500 SaO2% (BldA) [Mass fraction] 95 % [facility] 06-03-2024 11:34-0500 Systolic blood pressure 140 mm[Hg] [facility] 05-04-2024 11:13-0500 Body height 152.4 cm [facility] 05-04-2024 11:13-0500 Body mass index (BMI) [Ratio] 41.1 kg/m2 [facility] 05-04-2024 11:13-0500 Body temperature 97.6 [degF] [facility] 05-04-2024 11:13-0500 Body weight 95.42 kg [facility] 05-04-2024 11:13-0500 Diastolic blood pressure 68 mm[Hg] [facility] 05-04-2024 11:13-0500 Heart rate 70 /min [facility] 05-04-2024 11:13-0500 Inhaled oxygen flow rate 2 L/min [facility] 05-04-2024 11:13-0500 Respiratory rate 18 /min [facility] 05-04-2024 11:13-0500 SaO2% (BldA) [Mass fraction] 94 % [facility] 05-04-2024 11:13-0500 Systolic blood pressure 143 mm[Hg] [facility] 04-20-2024 13:22-0500 Body temperature 97.5 [degF] [facility] 04-20-2024 13:22-0500 Diastolic blood pressure 60 mm[Hg] [facility] 04-20-2024 13:22-0500 Heart rate 61 /min [facility] 04-20-2024 13:22-0500 Inhaled oxygen flow rate 2 L/min [facility] 04-20-2024 13:22-0500 SaO2% (BldA) [Mass fraction] 96 % [facility] 04-20-2024 13:22-0500 Systolic blood pressure 105 mm[Hg] [facility] 03-16-2024 13:41-0400 Body height 152.4 cm Luci Gant DPM Work Phone: [facility] 03-16-2024 13:41-0400 Body mass index (BMI) [Ratio] 39.06 kg/m2 Luci Gant DPM Work Phone: [facility] 03-16-2024 13:41-0400 Body weight 90.72 kg Luci Gant DPM Work Phone: [facility] 03-02-2024 08:56-0400 Body height 152.4 cm [facility] 03-02-2024 08:56-0400 Body mass index (BMI) [Ratio] 39.4 kg/m2 [facility] 03-02-2024 08:56-0400 Body temperature 97.7 [degF] [facility] 03-02-2024 08:56-0400 Body weight 91.62 kg [facility] 03-02-2024 08:56-0400 Diastolic blood pressure 60 mm[Hg] [facility] 03-02-2024 08:56-0400 Heart rate 63 /min [facility] 03-02-2024 08:56-0400 Inhaled oxygen flow rate 2 L/min [facility] 03-02-2024 08:56-0400 Respiratory rate 18 /min [facility] 03-02-2024 08:56-0400 SaO2% (BldA) [Mass fraction] 97 % [facility] 03-02-2024 08:56-0400 Systolic blood pressure 114 mm[Hg] [facility] 02-10-2024 10:30-0400 Body height 152.4 cm [facility] 02-10-2024 10:30-0400 Body mass index (BMI) [Ratio] 38.7 kg/m2 [facility] 02-10-2024 10:30-0400 Body temperature 97.5 [degF] [facility] 02-10-2024 10:30-0400 Body weight 89.81 kg [facility] 02-10-2024 10:30-0400 Diastolic blood pressure 75 mm[Hg] [facility] 02-10-2024 10:30-0400 Heart rate 70 /min [facility] 02-10-2024 10:30-0400 Inhaled oxygen flow rate 2 L/min [facility] 02-10-2024 10:30-0400 Respiratory rate 18 /min [facility] 02-10-2024 10:30-0400 SaO2% (BldA) [Mass fraction] 97 % [facility] 02-10-2024 10:30-0400 Systolic blood pressure 160 mm[Hg] [facility] 01-27-2024 13:50-0400 Body height 152.4 cm [facility] 01-27-2024 13:50-0400 Body mass index (BMI) [Ratio] 39.6 kg/m2 [facility] 01-27-2024 13:50-0400 Body temperature 98.2 [degF] [facility] 01-27-2024 13:50-0400 Body weight 92.07 kg [facility] 01-27-2024 13:50-0400 Diastolic blood pressure 72 mm[Hg] [facility] 01-27-2024 13:50-0400 Heart rate 72 /min [facility] 01-27-2024 13:50-0400 Inhaled oxygen flow rate 2 L/min [facility] 01-27-2024 13:50-0400 Respiratory rate 18 /min [facility] 01-27-2024 13:50-0400 SaO2% (BldA) [Mass fraction] 98 % [facility] 01-27-2024 13:50-0400 Systolic blood pressure 166 mm[Hg] [facility] 01-13-2024 11:05-0400 Body height 152.4 cm [facility] 01-13-2024 11:05-0400 Body mass index (BMI) [Ratio] 39.6 kg/m2 [facility] 01-13-2024 11:05-0400 Body temperature 97.9 [degF] [facility] 01-13-2024 11:05-0400 Body weight 92 kg [facility] 01-13-2024 11:05-0400 Diastolic blood pressure 70 mm[Hg] [facility] 01-13-2024 11:05-0400 Heart rate 68 /min [facility] 01-13-2024 11:05-0400 Inhaled oxygen flow rate 2 L/min [facility] 01-13-2024 11:05-0400 Respiratory rate 18 /min [facility] 01-13-2024 11:05-0400 SaO2% (BldA) [Mass fraction] 96 % [facility] 01-13-2024 11:05-0400 Systolic blood pressure 128 mm[Hg] [facility] 12-30-2023 13:44-0400 Body height 152.4 cm [facility] 12-30-2023 13:44-0400 Body mass index (BMI) [Ratio] 39.6 kg/m2 [facility] 12-30-2023 13:44-0400 Body temperature 97.6 [degF] [facility] 12-30-2023 13:44-0400 Body weight 92.24 kg [facility] 12-30-2023 13:44-0400 Diastolic blood pressure 68 mm[Hg] [facility] 12-30-2023 13:44-0400 Heart rate 68 /min [facility] 12-30-2023 13:44-0400 Inhaled oxygen flow rate 2 L/min [facility] 12-30-2023 13:44-0400 Respiratory rate 18 /min [facility] 12-30-2023 13:44-0400 SaO2% (BldA) [Mass fraction] 96 % [facility] 12-30-2023 13:44-0400 Systolic blood pressure 131 mm[Hg] [facility] 12-11-2023 11:31-0400 Body height 152.4 cm [facility] 12-11-2023 11:31-0400 Body mass index (BMI) [Ratio] 40.8 kg/m2 [facility] 12-11-2023 11:31-0400 Body temperature 97.1 [degF] [facility] 12-11-2023 11:31-0400 Body weight 94.85 kg [facility] 12-11-2023 11:31-0400 Diastolic blood pressure 60 mm[Hg] [facility] 12-11-2023 11:31-0400 Heart rate 68 /min [facility] 12-11-2023 11:31-0400 Inhaled oxygen flow rate 2 L/min [facility] 12-11-2023 11:31-0400 Respiratory rate 18 /min [facility] 12-11-2023 11:31-0400 SaO2% (BldA) [Mass fraction] 95 % [facility] 12-11-2023 11:31-0400 Systolic blood pressure 130 mm[Hg] [facility] 12-08-2023 10:40-0400 Body height 152.4 cm [facility] 12-08-2023 10:40-0400 Body mass index (BMI) [Ratio] 40.8 kg/m2 [facility] 12-08-2023 10:40-0400 Body weight 94.97 kg [facility] 12-08-2023 10:40-0400 Diastolic blood pressure 61 mm[Hg] [facility] 12-08-2023 10:40-0400 Heart rate 56 /min [facility] 12-08-2023 10:40-0400 Respiratory rate 18 /min [facility] 12-08-2023 10:40-0400 SaO2% (BldA) [Mass fraction] 95 % [facility] 12-08-2023 10:40-0400 Systolic blood pressure 119 mm[Hg] [facility] 11-18-2023 10:03-0400 Body height 152.4 cm SEED SPECIALIST-C Anika Elaine Work Phone: [facility] 11-18-2023 10:03-0400 Body mass index (BMI) [Ratio] 39.2 kg/m2 SEED SPECIALIST-C Anika Elaine Work Phone: [facility] 11-18-2023 10:03-0400 Body temperature 98 [degF] SEED SPECIALIST-C Anika Elaine Work Phone: [facility] 11-18-2023 10:03-0400 Body weight 91.22 kg SEED SPECIALIST-C Anika Elaine Work Phone: [facility] 11-18-2023 10:03-0400 Diastolic blood pressure 71 mm[Hg] SEED SPECIALIST-C Anika Elaine Work Phone: [facility] 11-18-2023 10:03-0400 Heart rate 70 /min SEED SPECIALIST-C Anika Elaine Work Phone: [facility] 11-18-2023 10:03-0400 Inhaled oxygen flow rate 2 L/min SEED SPECIALIST-C Anika Elaine Work Phone: [facility] 11-18-2023 10:03-0400 Respiratory rate 16 /min SEED SPECIALIST-C Anika Elaine Work Phone: [facility] 11-18-2023 10:03-0400 SaO2% (BldA) [Mass fraction] 94 % SEED SPECIALIST-C Anika Elaine Work Phone: [facility] 11-18-2023 10:03-0400 Systolic blood pressure 162 mm[Hg] SEED SPECIALIST-C Anikasophy Marsmer Work Phone: [facility] 11-05-2023 14:04-0400 Body height 152.4 cm SEED SPECIALIST-C Anika Elaine Work Phone: [facility] 11-05-2023 14:04-0400 Body mass index (BMI) [Ratio] 39 kg/m2 SEED SPECIALIST-C Anika Elaine Work Phone: [facility] 11-05-2023 14:04-0400 Body temperature 98.1 [degF] SEED SPECIALIST-C Anikasophy Marsmer Work Phone: [facility] 11-05-2023 14:04-0400 Body weight 90.71 kg SEED SPECIALIST-C Anikasophy Marsmer Work Phone: [facility] 11-05-2023 14:04-0400 Diastolic blood pressure 68 mm[Hg] SEED SPECIALIST-C Anika Elaine Work Phone: [facility] 11-05-2023 14:04-0400 Heart rate 56 /min SEED SPECIALIST-C Anikasophy Marsmer Work Phone: [facility] 11-05-2023 14:04-0400 Inhaled oxygen flow rate 2 L/min SEED SPECIALIST-C Anikasophy Marsmer Work Phone: [facility] 11-05-2023 14:04-0400 Respiratory rate 18 /min SEED SPECIALIST-C Anikasophy Marsmer Work Phone: [facility] 11-05-2023 14:04-0400 SaO2% (BldA) [Mass fraction] 92 % SEED SPECIALIST-C Anikasophy Marsmer Work Phone: [facility] 11-05-2023 14:04-0400 Systolic blood pressure 136 mm[Hg] SEED SPECIALIST-C Anika Elaine Work Phone: [facility] 10-15-2023 13:42-0400 Body height 152.4 cm SEED SPECIALIST-C Anika Elaine Work Phone: [facility] 10-15-2023 13:42-0400 Body mass index (BMI) [Ratio] 38.7 kg/m2 SEED SPECIALIST-C Anika Henry Work Phone: [facility] 10-15-2023 13:42-0400 Body temperature 97.6 [degF] SEED SPECIALIST-C Anika Henry Work Phone: [facility] 10-15-2023 13:42-0400 Body weight 90.03 kg SEED SPECIALIST-C Anika Henry Work Phone: [facility] 10-15-2023 13:42-0400 Diastolic blood pressure 70 mm[Hg] SEED SPECIALIST-C Anika Henry Work Phone: [facility] 10-15-2023 13:42-0400 Heart rate 60 /min SEED SPECIALIST-C Anika Henry Work Phone: [facility] 10-15-2023 13:42-0400 Inhaled oxygen flow rate 2 L/min SEED SPECIALIST-C Anika Henry Work Phone: [facility] 10-15-2023 13:42-0400 Respiratory rate 18 /min SEED SPECIALIST-C Anika Henry Work Phone: [facility] 10-15-2023 13:42-0400 SaO2% (BldA) [Mass fraction] 97 % SEED SPECIALIST-C Anika Henry Work Phone: [facility] 10-15-2023 13:42-0400 Systolic blood pressure 143 mm[Hg] SEED SPECIALIST-C Anika Henry Work Phone: [facility] 09-23-2023 09:37-0400 Body height 152.4 cm SEED SPECIALIST-C Anika Henry Work Phone: [facility] 09-23-2023 09:37-0400 Body mass index (BMI) [Ratio] 38.5 kg/m2 SEED SPECIALIST-C Anika Marsmer Work Phone: [facility] 09-23-2023 09:37-0400 Body temperature 97.9 [degF] SEED SPECIALIST-C Anika Marsmer Work Phone: [facility] 09-23-2023 09:37-0400 Body weight 89.44 kg SEED SPECIALIST-C Anika Elaine Work Phone: [facility] 09-23-2023 09:37-0400 Diastolic blood pressure 72 mm[Hg] SEED SPECIALIST-C Anika Elaine Work Phone: [facility] 09-23-2023 09:37-0400 Heart rate 67 /min SEED SPECIALIST-C Anika Elaine Work Phone: [facility] 09-23-2023 09:37-0400 Inhaled oxygen flow rate 2 L/min SEED SPECIALIST-C Anika Elaine Work Phone: [facility] 09-23-2023 09:37-0400 Respiratory rate 18 /min SEED SPECIALIST-C Anika Elaine Work Phone: [facility] 09-23-2023 09:37-0400 SaO2% (BldA) [Mass fraction] 97 % SEED SPECIALIST-C Anika Elaine Work Phone: [facility] 09-23-2023 09:37-0400 Systolic blood pressure 149 mm[Hg] SEED SPECIALIST-C Anika Elaine Work Phone: [facility] 09-09-2023 14:15-0400 Body height 152.4 cm SEED SPECIALIST-C Anika Elaine Work Phone: [facility] 09-09-2023 14:15-0400 Body mass index (BMI) [Ratio] 38.9 kg/m2 SEED SPECIALIST-C Anika Elaine Work Phone: [facility] 09-09-2023 14:15-0400 Body temperature 97.2 [degF] SEED SPECIALIST-C Anika Elaine Work Phone: [facility] 09-09-2023 14:15-0400 Body weight 90.49 kg SEED SPECIALIST-C Anika Elaine Work Phone: [facility] 09-09-2023 14:15-0400 Diastolic blood pressure 77 mm[Hg] SEED SPECIALIST-C Anika Elaine Work Phone: [facility] [facility] 09-[facility]-2023 14:15-0400 Heart rate 70 /min SEED SPECIALIST-C Anika Elaine Work Phone: [facility] 09-09-2023 14:15-0400 Inhaled oxygen flow rate 2 L/min SEED SPECIALIST-C Anika Elaine Work Phone: [facility] 09-09-2023 14:15-0400 Respiratory rate 18 /min SEED SPECIALIST-C Anika Elaine Work Phone: [facility] 09-09-2023 14:15-0400 SaO2% (BldA) [Mass fraction] 97 % SEED SPECIALIST-C Anika Elaine Work Phone: [facility] 09-09-2023 14:15-0400 Systolic blood pressure 147 mm[Hg] SEED SPECIALIST-C Anika Elaine Work Phone: [facility] 09-01-2023 11:35-0400 Diastolic blood pressure 73 mm[Hg] SEED SPECIALIST-C Anika Elaine Work Phone: [facility] 09-01-2023 11:35-0400 Heart rate 62 /min SEED SPECIALIST-C Anika Elaine Work Phone: [facility] 09-01-2023 11:35-0400 Inhaled oxygen flow rate 2 L/min SEED SPECIALIST-C Anika Elaine Work Phone: [facility] 09-01-2023 11:35-0400 Respiratory rate 18 /min SEED SPECIALIST-C Anika Elaine Work Phone: [facility] 09-01-2023 11:35-0400 SaO2% (BldA) [Mass fraction] 96 % SEED SPECIALIST-C Anika Elaine Work Phone: [facility] 09-01-2023 11:35-0400 Systolic blood pressure 164 mm[Hg] SEED SPECIALIST-C Anika Elaine Work Phone: [facility] 09-01-2023 09:17-0400 Body height 152.4 cm SEED SPECIALIST-C Anika Elaine Work Phone: [facility] 09-01-2023 09:17-0400 Body weight 93.44 kg SEED SPECIALIST-C Anika Henry Work Phone: [facility] 08-20-2023 10:20-0400 Body height 152.4 cm [facility] 08-20-2023 10:20-0400 Body mass index (BMI) [Ratio] 40.2 kg/m2 [facility] 08-20-2023 10:20-0400 Body weight 93.44 kg [facility] 08-20-2023 10:20-0400 Diastolic blood pressure 84 mm[Hg] [facility] 08-20-2023 10:20-0400 Heart rate 73 /min [facility] 08-20-2023 10:20-0400 Inhaled oxygen flow rate 2 L/min [facility] 08-20-2023 10:20-0400 Respiratory rate 18 /min [facility] 08-20-2023 10:20-0400 SaO2% (BldA) [Mass fraction] 94 % [facility] 08-20-2023 10:20-0400 Systolic blood pressure 176 mm[Hg] [facility] 08-13-2023 10:41-0400 Body height 152.4 cm [facility] 08-13-2023 10:41-0400 Body mass index (BMI) [Ratio] 40.1 kg/m2 [facility] 08-13-2023 10:41-0400 Body temperature 97.5 [degF] [facility] 08-13-2023 10:41-0400 Body weight 93.15 kg [facility] 08-13-2023 10:41-0400 Diastolic blood pressure 72 mm[Hg] [facility] 08-13-2023 10:41-0400 Heart rate 77 /min [facility] 08-13-2023 10:41-0400 Inhaled oxygen flow rate 2 L/min [facility] 08-13-2023 10:41-0400 Respiratory rate 20 /min [facility] 08-13-2023 10:41-0400 SaO2% (BldA) [Mass fraction] 95 % [facility] 08-13-2023 10:41-0400 Systolic blood pressure 162 mm[Hg] [facility] 04-22-2023 10:20-0500 Body height 152.4 cm Azwalter Darbys Other [facility] 04-22-2023 10:20-0500 Body mass index (BMI) [Ratio] 39.64 kg/m2 Azwalter Darbys Other [employer] [facility] [employer] Other 04-22-2023 10:20-0500 Body weight 92.08 kg Azwalter Darbys Other [employer] Other 04-22-2023 10:20-0500 Body weight 92.07 kg [facility] 04-22-2023 10:20-0500 Diastolic blood pressure 70 mm[Hg] Rin Darbys Other [facility] 04-22-2023 10:20-0500 Respiratory rate 18 /min Rin Darbys Other [employer] Other 04-22-2023 10:20-0500 SaO2% (BldA) [Mass fraction] 97 % Rni Darbys Other [employer] Other 04-22-2023 10:20-0500 Systolic blood pressure 138 mm[Hg] Aziz Heathers Other [facility] 02-19-2023 09:15-0400 Body height 152.4 cm [employer] Other [employer] Other 02-19-2023 09:15-0400 Body mass index (BMI) [Ratio] 40.21 kg/m2 [employer] Other [facility] Other 02-19-2023 09:15-0400 Body weight 93.4 kg Tondra Mapus Other [employer] [facility] Other 02-19-2023 09:15-0400 Diastolic blood pressure 64 mm[Hg] Tondra Mapus Other [facility] Other 02-19-2023 09:15-0400 Respiratory rate 18 /min Tondra Mapus Other [employer] Other 02-19-2023 09:15-0400 SaO2% (BldA) [Mass fraction] 95 % Tondra Mapus Other [facility] Other 02-19-2023 09:15-0400 Systolic blood pressure 129 mm[Hg] Tondra Mapus Other [facility] Other 02-12-2023 09:00-0400 Body height 152.4 cm Tondra Mapus Other [facility] Other 02-12-2023 09:00-0400 Body mass index (BMI) [Ratio] 40.07 kg/m2 Tondra Mapus Other [employer] Other 02-12-2023 09:00-0400 Body weight 93.08 kg Tondra Mapus Other [facility] Other 10-22-2022 10:00-0400 Body height 152.4 cm [employer] Other [facility] Other 10-22-2022 10:00-0400 Body mass index (BMI) [Ratio] 40.23 kg/m2 [employer] Other [facility] Other 10-22-2022 10:00-0400 Body temperature 97.4 [degF] Rin Ramirez Other [employer] Other 10-22-2022 10:00-0400 Body weight 93.44 kg Rin Darbys Other [employer] [facility] Other 10-22-2022 10:00-0400 Diastolic blood pressure 78 mm[Hg] Rin Darbys Other [employer] Other 10-22-2022 10:00-0400 Respiratory rate 20 /min Rin Darbys Other [employer] Other 10-22-2022 10:00-0400 SaO2% (BldA) [Mass fraction] 92 % Rin Darbys Other [facility] Other 10-22-2022 10:00-0400 Systolic blood pressure 146 mm[Hg] Rin Darbys Other [facility] Other 08-19-2022 10:15-0400 Body height 152.4 cm Chandrakanta Susannaus Other [facility] Other 08-19-2022 10:15-0400 Body mass index (BMI) [Ratio] 39.82 kg/m2 Tondra Mapus Other [facility] Other 08-19-2022 10:15-0400 Body weight 92.49 kg Tondra Mapus Other [facility] Other 08-19-2022 10:15-0400 Diastolic blood pressure 63 mm[Hg] Tondra Mapus Other [facility] Other 08-19-2022 10:15-0400 Respiratory rate 20 /min Tondra Mapus Other [facility] Other 08-19-2022 10:15-0400 SaO2% (BldA) [Mass fraction] 95 % Tondra Mapus Other [facility] Other 08-19-2022 10:15-0400 Systolic blood pressure 136 mm[Hg] Tondra Mapus Other [facility] Other 02-27-2022 10:15-0400 Body height 152.4 cm Tondra Mapus Other [facility] Other 02-27-2022 10:15-0400 Body mass index (BMI) [Ratio] 41.79 kg/m2 Tondra Mapus Other [facility] Other 02-27-2022 10:15-0400 Body weight 97.07 kg Tondra Mapus Other [facility] Other 02-27-2022 10:15-0400 Diastolic blood pressure 55 mm[Hg] Tondra Mapus Other [facility] Other 02-27-2022 10:15-0400 Respiratory rate 20 /min Tondra Mapus Other [facility] Other 02-27-2022 10:15-0400 SaO2% (BldA) [Mass fraction] 97 % Tondra Mapus Other [facility] Other 02-27-2022 10:15-0400 Systolic blood pressure 130 mm[Hg] Tondra Mapus Other [facility] Other 10-23-2021 11:00-0400 Body height 152.4 cm Rin Darbys Other [facility] Other 10-23-2021 11:00-0400 Body mass index (BMI) [Ratio] 44.05 kg/m2 Rin Darbys Other [facility] Other 10-23-2021 11:00-0400 Body temperature 97.5 [degF] Rin Darbys Other [facility] Other 10-23-2021 11:00-0400 Body weight 102.33 kg Rin Darbys Other [facility] Other 10-23-2021 11:00-0400 Diastolic blood pressure 72 mm[Hg] Rin Darbys Other [facility] Other 10-23-2021 11:00-0400 Respiratory rate 20 /min Rin Darbys Other [facility] Other 10-23-2021 11:00-0400 SaO2% (BldA) [Mass fraction] 94 % Rin Bakhous Other [facility] Other 10-23-2021 11:00-0400 Systolic blood pressure 135 mm[Hg] Aziz Bakhous Other [facility] Other 05-23-2021 10:15-0500 Body height 152.4 cm Tona Mapus Other [facility] Other 05-23-2021 10:15-0500 Body mass index (BMI) [Ratio] 43.25 kg/m2 Tondra Mapus Other [facility] Other 05-23-2021 10:15-0500 Body weight 100.47 kg Tondra Mapus Other [facility] Other 05-23-2021 10:15-0500 Diastolic blood pressure 57 mm[Hg] Tondra Mapus Other [facility] Other 05-23-2021 10:15-0500 Respiratory rate 20 /min Tondra Mapus Other [facility] Other 05-23-2021 10:15-0500 SaO2% (BldA) [Mass fraction] 96 % Tondra Mapus Other [facility] Other 05-23-2021 10:15-0500 Systolic blood pressure 131 mm[Hg] Tondra Mapus Other [facility] Other Encounters Encounter Date Encounter Type Care Provider Facility Start: 11-02-2024 End: 11-02-2024 Bamboo flowsheet Luci Gant DPM Work Phone: [facility] Start: 11-02-2024 End: 11-02-2024 Bamboo flowsheet Luci Gant DPM Work Phone: [facility] Start: 11-02-2024 End: 11-02-2024 Patient encounter procedure Luci Gant DPM Work Phone: [facility] Comment on above: Dermatophytosis of n ail (Primary Dx); Dystrophic nail; Pain around toenail, right foot; Pain around toenail, left foot Start: 11-02-2024 End: 11-02-2024 ambulatory LUCI GANT Not Available Start: 10-27-2024 End: 10-27-2024 Follow-up encounter [facility] - Pharmacy Medication Management Comment on above: PAF (paroxysmal atri al fibrillation) ([facility]) (Primary Dx) Start: 10-27-2024 End: 10-27-2024 [facility] Start: 10-26-2024 End: 10-26-2024 ambulatory Anika Henry SEED SPECIALIST-C Work Phone: [facility] Work Phone: Start: 10-26-2024 End: 10-26-2024 Patient encounter procedure Anika Henry SEED SPECIALIST-C Work Phone: [facility] Work Phone: Start: 10-22-2024 Non-patient / Non-visit Anika Henry SEED SPECIALIST-C Work Phone: [facility] Work Phone: Start: 10-20-2024 End: 10-20-2024 Telephone encounter [facility] Medication Management Work Phone: [facility] - Pharmacy Medication Management Start: 10-10-2024 End: 10-12-2024 Refill Anita Mccoy MD Work Phone: [facility] Pulmonary/Sleep Medicine Start: 10-05-2024 End: 10-05-2024 Patient encounter procedure Anika Henry SEED SPECIALIST-C Work Phone: [facility] Physician [facility] Work Phone: Start: 10-04-2024 End: 10-04-2024 ambulatory Marie Jimenes MD Facility:[facility] Start: 09-29-2024 Non-patient / Non-visit Anika Henry SEED SPECIALIST-C Work Phone: [facility] Work Phone: Start: 09-28-2024 End: 09-28-2024 Follow-up encounter [facility] 1 [facility] - Pharmacy Medication Management Comment on above: PAF (paroxysmal atri al fibrillation) ([facility]) (Primary Dx) Start: 09-28-2024 End: 09-28-2024 ambulatory [facility] Start: 09-13-2024 End: 09-13-2024 ambulatory Anika Henry SEED SPECIALIST-C Work Phone: [facility] Work Phone: Start: 09-13-2024 End: 09-13-2024 Patient encounter procedure Anika Henry SEED SPECIALIST-C Work Phone: [facility] Physician [facility] Work Phone: Start: 09-10-2024 End: 09-10-2024 Follow-up encounter [facility] 1 [facility] - Pharmacy Medication Management Comment on above: PAF (paroxysmal atri al fibrillation) ([facility]) (Primary Dx) Start: 09-10-2024 End: 09-10-2024 ambulatory [facility] Start: 09-09-2024 End: 09-10-2024 Refill Con[facility] Comment on above: Med Refill Start: 09-08-2024 End: 09-10-2024 Refill Ashley SOLORZANO Work Phone: [facility] Comment on above: Med Refill Start: 09-02-2024 Non-patient / Non-visit Anika Henry SEED SPECIALIST-C Work Phone: [facility] Physician [facility] Work Phone: Start: 09-01-2024 End: 09-01-2024 Patient encounter procedure Anika Henry SEED SPECIALIST-C Work Phone: [facility] [address] Work Phone: Start: 09-01-2024 End: 09-01-2024 ambulatory Anika Henry Facility:[facility] Start: 08-25-2024 End: 08-25-2024 ambulatory [facility] Start: 08-24-2024 End: 08-24-2024 Follow-up encounter [facility] - Pharmacy Medication Management Comment on above: PAF (paroxysmal atri al fibrillation) ([facility]) (Primary Dx) Start: 08-24-2024 End: 08-24-2024 ambulatory [facility] Start: 08-23-2024 End: 08-23-2024 Refill Concha Michele RN [facility] Comment on above: Med Refill Start: 08-17-2024 End: 08-17-2024 ambulatory [facility] Work Phone: Start: 08-17-2024 End: 08-17-2024 Patient encounter procedure [facility] Physician [facility] Work Phone: Start: 08-05-2024 End: 08-05-2024 Office outpatient visit 25 minutes Kaity Leija MD Work Phone: [facility] Comment on above: PAF (paroxysmal atri al fibrillation) ([facility]) (Primary Dx); care home current use of amiodarone; 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 ([facility]) Start: 08-05-2024 End: 08-05-2024 Follow-up encounter [facility] - Pharmacy Medication Management Comment on above: PAF (paroxysmal atri al fibrillation) ([facility]) (Primary Dx) Start: 08-05-2024 End: 08-05-[address] [facility] Start: 08-04-2024 End: 08-04-2024 Telephone encounter Enedelia Livingston CMA [facility] Start: 08-04-2024 Non-patient / Non-visit [facility] Physician [facility] Work Phone: Start: 07-27-2024 End: 07-27-2024 ambulatory [facility] Work Phone: Start: 07-27-2024 End: 07-27-2024 Patient encounter procedure [facility] [address] [facility] Work Phone: Start: 07-20-2024 Non-patient / Non-visit [facility] Work Phone: Start: 07-14-2024 End: 07-14-2024 Follow-up encounter [facility] 1 [facility] - Pharmacy Medication Management Comment on above: PAF (paroxysmal atri al fibrillation) ([facility]) (Primary Dx) Start: 07-14-2024 End: 07-14-[address] [facility] MEDICATION MANAGEMENT [facility] Start: 2024 End: 2024 ambulatory [facility] Work Phone: Start: 2024 End: 2024 Patient encounter procedure [facility] Work Phone: Start: 06-30-2024 End: 06-30-2024 Bamboo flowsheet Luci Gant DPM Work Phone: [facility] Start: 06-30-2024 End: 06-30-2024 Bamboo flowsheet Luci Gant DPM Work Phone: [facility] Start: 06-30-2024 End: 06-30-2024 Patient encounter procedure Luci Gant DPM Work Phone: [facility] Comment on above: Dermatophytosis of n ail (Primary Dx); Dystrophic nail; Pain around toenail, right foot; Pain around toenail, left foot Start: 06-30-2024 End: 06-30-2024 ambulatory LUCI GANT Not Available Start: 06-17-2024 End: 06-17-2024 ambulatory [facility] Work Phone: Start: 06-17-2024 End: 06-17-2024 Patient encounter procedure [facility] Physician [facility] Work Phone: Start: 06-16-2024 End: 06-16-2024 [facility]-up [facility] Medication Therapy Management Comment on above: PAF (paroxysmal atri al fibrillation) ([facility]) (Primary Dx) Start: 06-16-2024 End: 06-16-[address]LEY ÁLVAREZ [facility] Start: 06-14-2024 End: 06-14-2024 ambulatory [facility] Work Phone: Start: 06-14-2024 End: 06-14-2024 Patient encounter procedure [facility] Physician [facility] Work Phone: Start: 06-10-2024 Non-patient / Non-visit [facility] Physician [facility] Work Phone: Start: 06-03-2024 End: 06-03-2024 ambulatory [facility] Work Phone: Start: 06-03-2024 End: 06-03-2024 Patient encounter procedure [facility] Work Phone: Start: 05-25-2024 Non-patient / Non-visit [facility] Physician [facility] Work Phone: Start: 05-20-2024 End: 05-20-2024 Orders Only Alicia Galvan RN [facility] Pulmonary/Sleep Medicine Comment on above: SOB (shortness of br eath) (Primary Dx); Abnormal CXR Start: 05-17-2024 End: 05-17-2024 Follow-up encounter [facility] 1 [facility] Medication Therapy Management Comment on above: PAF (paroxysmal atri al fibrillation) ([facility]) (Primary Dx) Start: 05-17-2024 End: 05-17-2024 [facility] Start: 05-14-2024 End: 05-14-[address] [facility] Start: 05-10-2024 End: 05-10-[address] 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 Work Phone: [facility] Comment on above: Med Refill Start: 05-05-2024 End: 05-10-2024 Refill Tr Jimenez ANESTHESIOLOGIST ATTENDING-DISTRIBUTOR [employer]VERTISING [employer]ERIAL [facility] Comment on above: Med Refill Start: 05-04-2024 End: 05-04-2024 Patient encounter procedure [facility] Physician [facility] Work Phone: Start: 05-03-2024 End: 05-03-2024 ambulatory [facility] Start: 04-28-2024 Non-patient / Non-visit [facility] Physician [facility] Work Phone: Start: 04-20-2024 End: 04-20-2024 Patient encounter procedure [facility] Physician [facility] Work Phone: Start: 04-14-2024 End: 04-14-2024 [facility] Start: 04-13-2024 Non-patient / Non-visit [facility] Physician [facility] Work Phone: Start: 04-07-2024 End: 04-07-[address] [facility] Start: 03-30-2024 End: 03-30-2024 ambulatory [facility] Work Phone: Start: 03-30-2024 End: 03-30-2024 Patient encounter procedure [facility] Physician [facility] Work Phone: Start: 03-23-2024 End: 03-23-2024 ambulatory [facility] Work Phone: Start: 03-23-2024 End: 03-23-2024 Patient encounter procedure [facility] Work Phone: Start: 03-17-2024 Non-patient / Non-visit [facility] Work Phone: Start: 03-16-2024 End: 03-16-2024 Bamboo flowsheet Luci Gant DPM Work Phone: [facility] Start: 03-16-2024 End: 03-16-2024 Bamboo flowsheet Luci Gant DPM Work Phone: [facility] Start: 03-16-2024 End: 03-16-2024 ambulatory LUCI GANT Not Available Start: 03-16-2024 End: 03-16-2024 Patient encounter procedure Luci Gant DPM Work Phone: [facility] Comment on above: Dermatophytosis of n ail (Primary Dx); Dystrophic nail; Pain around toenail, right foot; Pain around toenail, left foot Start: 03-03-2024 End: 03-03-2024 ambulatory [facility] Start: 03-02-2024 End: 03-02-2024 ambulatory [facility] Work Phone: Start: 03-02-2024 End: 03-02-2024 Patient encounter procedure [facility] Work Phone: Start: 02-23-2024 Non-patient / Non-visit [facility] Work Phone: Start: 02-10-2024 End: 02-10-2024 ambulatory [facility] Work Phone: Start: 02-10-2024 End: 02-10-2024 Patient encounter procedure [facility] Work Phone: Start: 02-03-2024 Non-patient / Non-visit [facility] Work Phone: Start: 01-28-2024 End: 01-28-2024 ambulatory [facility] Start: 01-27-2024 End: 01-27-2024 ambulatory [facility] Work Phone: Start: 01-27-2024 End: 01-27-2024 Patient encounter procedure [facility] Physician [facility] Work Phone: Start: 01-23-2024 Non-patient / Non-visit [facility] Physician [facility] Work Phone: Start: 01-20-2024 Non-patient / Non-visit [facility] Physician [facility] Work Phone: Start: 01-13-2024 End: 01-13-2024 ambulatory [facility] Work Phone: Start: 01-13-2024 End: 01-13-2024 Patient encounter procedure [facility] Physician [facility] Work Phone: Start: 01-05-2024 Non-patient / Non-visit [facility] Work Phone: Start: 12-31-2023 End: 12-31-2023 [facility] Start: 12-30-2023 End: 12-30-2023 ambulatory [facility] Work Phone: Start: 12-30-2023 End: 12-30-2023 Patient encounter procedure [facility] Physician [facility] Work Phone: Start: 12-11-2023 End: 12-11-2023 ambulatory LUCI GANT Not Available Start: 12-11-2023 End: 12-11-2023 ambulatory [facility] Work Phone: Start: 12-11-2023 End: 12-11-2023 Patient encounter procedure [facility] Physician [facility] Work Phone: Start: 12-08-2023 End: 12-08-2023 ambulatory [facility] Work Phone: Start: 12-08-2023 End: 12-08-2023 Patient encounter procedure [facility] Physician [facility] Work Phone: Start: 12-03-2023 End: 12-03-[address] [facility] Start: 11-27-2023 Non-patient / Non-visit [facility] Physician [facility] Work Phone: Start: 11-18-2023 End: 11-18-2023 ambulatory SEED SPECIALIST-C Anika Deepa Elaine Work Phone: [facility] Work Phone: Start: 11-18-2023 End: 11-18-2023 Patient encounter procedure SEED SPECIALIST-C Anika Elaine Work Phone: [facility] Physician [facility] Work Phone: Start: 11-13-2023 Non-patient / Non-visit SEED SPECIALIST-C P mellissa Elaine Work Phone: [facility] Work Phone: Start: 11-12-2023 End: 11-12-[address] [facility] Start: 11-05-2023 End: 11-05-2023 ambulatory SEED SPECIALIST-C Anika Deepa Elaine Work Phone: [facility] Work Phone: Start: 11-05-2023 End: 11-05-2023 Patient encounter procedure SEED SPECIALIST-C Anika Elaine Work Phone: [facility] Physician [facility] Work Phone: Start: 10-30-2023 Non-patient / Non-visit SEED SPECIALIST-C P mellissa Elaine Work Phone: [facility] Work Phone: Start: 10-27-2023 End: 10-27-[address] M[address] [facility] Start: 10-15-2023 End: 10-15-2023 ambulatory SEED SPECIALIST-C Anika Deepa Elaine Work Phone: [facility] Work Phone: Start: 10-15-2023 End: 10-15-2023 Patient encounter procedure SEED SPECIALIST-C Anikasophy Marsmer Work Phone: [facility] Work Phone: Start: 10-07-2023 Non-patient / Non-visit SEED SPECIALIST-C P mellissa Elaine Work Phone: [facility] Work Phone: Start: 09-23-2023 End: 09-23-2023 ambulatory SEED SPECIALIST-C Anika Deepa Elaine Work Phone: [facility] Work Phone: Start: 09-23-2023 End: 09-23-2023 Patient encounter procedure SEED SPECIALIST-C Anikasophy Marsmer Work Phone: [facility] Work Phone: Start: 09-16-2023 Non-patient / Non-visit SEED SPECIALIST-C P mellissa Elaine Work Phone: [facility] Work Phone: Start: 09-09-2023 End: 09-09-2023 ambulatory SEED SPECIALIST-C Anika Deepa Elaine Work Phone: [facility] Work Phone: Start: 09-09-2023 End: 09-09-2023 Patient encounter procedure SEED SPECIALIST-C Anika Elaine Work Phone: [facility] Work Phone: Start: 09-01-2023 End: 09-01-2023 Admission to same day surgery center SEED SPECIALIST-C Anika Elaine Work Phone: [facility] Work Phone: Start: 09-01-2023 End: 09-01-2023 ambulatory SEED SPECIALIST-C Anika Marsmer Work Phone: [facility] Work Phone: Start: 08-20-2023 End: 08-20-2023 ambulatory [facility] Work Phone: Start: 08-20-2023 End: 08-20-2023 Patient encounter procedure [facility] Work Phone: Start: 08-13-2023 End: 08-13-2023 ambulatory [facility] Work Phone: Start: 08-13-2023 End: 08-13-2023 Patient encounter procedure [facility] Work Phone: Start: 08-05-2023 Non-patient / Non-visit [facility] Work Phone: Start: 08-01-2023 Non-patient / Non-visit [facility] Work Phone: Start: 06-09-2023 End: 06-09-2023 ambulatory Tondra Susannaus Other [facility] [employer] Other Start: 06-09-2023 Telephone encounter Tonfay Lin [facility] Start: 06-03-2023 End: 06-03-2023 ambulatory Azwalter Aguilerasilvias Other [facility] Other Start: 06-03-2023 Telephone encounter Azwalter Aguilerasilvias [facility] Start: 05-27-2023 End: 05-27-2023 ambulatory Tondra Mapus Other [employer] Other Start: 05-27-2023 Telephone encounter Tondra Susannaus [facility] Start: 04-23-2023 End: 04-23-2023 ambulatory Aziz Bakhous Other [facility] Other Start: 04-23-2023 Telephone encounter Azwalter Bakhous [facility] Start: 04-22-2023 End: 04-22-2023 ambulatory Aziz Bakhous Other [facility] Other Start: 04-22-2023 Office outpatient vi sit 25 minutes Aziz Bakhous [facility] Start: 04-22-2023 End: 04-22-2023 Patient encounter procedure [facility] Work Phone: Start: 04-21-2023 End: 04-21-2023 ambulatory Aziz Bakhous Other [facility] Other Start: 04-21-2023 Telephone encounter Azwalter Bakhous [facility] Start: 02-19-2023 (DM) Diabetes Tondra Mapus [facility] Start: 02-19-2023 End: 02-19-2023 ambulatory Tondra Mapus Other [facility] Other Start: 02-12-2023 End: 02-12-2023 ambulatory Tondra Mapus Other [facility] Other Start: 02-12-2023 Nursing evaluation o f patient and report Tondra Mapus [facility] Start: 01-24-2023 End: 01-24-2023 ambulatory Tondra Mapus Other [facility] Other Start: 01-24-2023 Telephone encounter Tondra Mapus [facility] Start: 10-30-2022 End: 10-30-2022 ambulatory Tondra Mapus Other [facility] Other Start: 10-30-2022 Telephone encounter Tondra Mapus [facility] Start: 10-22-2022 End: 10-22-2022 ambulatory Aziz Baksilvias Other [facility] Other Start: 10-22-2022 Office outpatient vi sit 25 minutes Aziz Bakhous [facility] Start: 10-16-2022 ambulatory ANIKASOPHY MARSMER Facility: [facility] Start: 08-20-2022 End: 08-20-2022 ambulatory Tondra Mapus Other [facility] Other Start: 08-20-2022 Telephone encounter Tondra Mapus [facility] Start: 08-19-2022 (DM) Diabetes Tondra Mapus [facility] Start: 08-19-2022 End: 08-19-2022 ambulatory Tondra Mapus Other [facility] Other Start: 08-02-2022 End: 08-02-2022 ambulatory Tondra Mapus Other [facility] Other Start: 08-02-2022 Telephone encounter Tondra Mapus [facility] Start: 05-30-2022 End: 05-30-2022 ambulatory Tondra Mapus Other [facility] Other Start: 05-30-2022 Telephone encounter Tondra Mapus [facility] Start: 05-01-2022 End: 05-01-2022 ambulatory Tondra Mapus Other [facility] Other Start: 05-01-2022 Telephone encounter Tondra Mapus [facility] Start: 04-01-2022 End: 04-01-2022 ambulatory Tondra Mapus Other [facility] Other Start: 04-01-2022 Telephone encounter Tondra Mapus [facility] Start: 02-27-2022 (DM) Diabetes Tondra Mapus [facility] Start: 02-27-2022 End: 02-27-2022 ambulatory Tondra Mapus Other [facility] Other Start: 01-28-2022 End: 01-28-2022 ambulatory Becca Michael Other [facility] Other Start: 01-28-2022 Telephone encounter Becca Michael [facility] Start: 01-09-2022 End: 01-09-2022 ambulatory Tondra Mapus Other [facility] Other Start: 01-09-2022 Telephone encounter Tondra Mapus [facility] Start: 12-31-2021 End: 12-31-2021 ambulatory Tondra Mapus Other [facility] Other Start: 12-31-2021 Telephone encounter Tondra Mapus [facility] Start: 12-17-2021 End: 12-17-2021 ambulatory Tondra Mapus Other [facility] Other Start: 12-17-2021 Telephone encounter Tondra Mapus [facility] Start: 11-25-2021 End: 11-25-2021 ambulatory Tondra Mapus Other [facility] Other Start: 11-25-2021 Telephone encounter Tondra Mapus [facility] Start: 11-02-2021 (FCCC INJ) FCCC Injection Marixa Fitt [facility] Start: 11-02-2021 End: 11-02-2021 ambulatory Marixa Fitt Other [facility] Other Start: 10-30-2021 End: 10-31-2021 ambulatory ANIKA HENRY Facility:[facility] Start: 10-26-2021 End: 10-26-2021 ambulatory Tondra Mapus Other [facility] Other Start: 10-26-2021 Telephone encounter Tondra Mapus [facility] Start: 10-23-2021 End: 10-23-2021 ambulatory Aziz Bakhous Other [facility] Other Start: 10-23-2021 Office outpatient vi sit 15 minutes Aziz Bakhous [facility] Start: 10-22-2021 End: 10-22-2021 ambulatory Tondra Mapus Other [facility] Other Start: 10-22-2021 Telephone encounter Tondra Mapus [facility] Start: 09-10-2021 End: 09-10-2021 ambulatory Tondra Mapus Other [facility] Other Start: 09-10-2021 Telephone encounter Tondra Mapus [facility] Start: 05-23-2021 (DM) Diabetes Tondra Mapus [facility] Start: 05-23-2021 End: 05-23-2021 ambulatory Tondra Mapus Other [facility] Other Procedures Date Procedure Procedure Detail Performing Clinician Start: 10-27-2024 Prothrombin time [facility] Work Phone: Start: 09-28-2024 Prothrombin time [facility] Work Phone: Start: 09-10-2024 Prothrombin time [facility] Work Phone: Start: 09-01-2024 CT of abdomen and pe lvis without contrast Anika Henry SEED SPECIALIST-C Work Phone: Start: 08-24-2024 Prothrombin time [facility] [...] Service Work Phone: Start: 09-01-2023 Needle biopsy SEED SPECIALIST-C Charity Tapia Work Phone: Start: 05-09-2023 Adult depression scr eening assessment Tr Jimenez ANESTHESIOLOGIST ATTENDING-DISTRIBUTOR [employer]ISING [employer] Work Phone: Start: 02-14-2014 Colonoscopy Tr calvo ANESTHESIOLOGIST ATTENDING-DISTRIBUTOR [employer] Work Phone: Plan of Treatment Date Care Activity Detail Author Start: 08-05-2025 Tobacco Screening Tobacco Screening [facility] Start: 05-14-2025 Tobacco Screening Tobacco Screening [facility] Start: 03-07-2025 End: 03-07-2025 Patient encounter procedure 03/07/2025 2:15 PM EDT Procedure Visit [facility] [address] [place] [address] Luci Gant DPM [address] [place], [place] [id number] [facility] Start: 01-17-2025 Influenza vaccination Influenza Vacc ine [facility] Start: 11-16-2024 End: 11-16-2024 Follow-up encounter 11/16/2024 9:45 AM EDT Follow Up Anticoagulation [facility] [address] [place] [address] [facility] Start: 11-15-2024 End: 11-15-2024 Patient encounter procedure 11/15/2024 2:15 PM EDT Office Visit [facility] [address] [place] [id number] Anita Mccoy MD [address] [place] [address] [facility] Start: 11-02-2024 End: 11-02-2024 Patient encounter procedure 11/02/2024 9:15 AM EDT Procedure Visit [facility] [address] [facility] [place] [address] Luci Gant DPM [address] [place], [place] [id number] Arrived [facility] Comment on above: Arrived Start: 10-26-2024 Tobacco Screening Tobacco Screening [facility] Start: 10-19-2024 End: 10-19-2024 Follow-up encounter 10/19/2024 1:45 PM EDT Follow Up Anticoagulation [facility] [address] [place] [address] [facility] Start: 10-01-2024 COVID-19 Vaccine ( season) COVID-19 Vaccine () [facility] Start: 09-28-2024 End: 09-28-2024 Follow-up encounter 09/28/2024 2:00 PM EDT Follow Up Anticoagulation [facility] [address] [place] [address] [facility] Start: 09-13-2024 Patient referral [facility] Work Phone: Start: 09-10-2024 End: 09-10-2024 Follow-up encounter 09/10/2024 1:00 PM EDT Follow Up Anticoagulation [facility] Medication Management [address] [place] [address] [facility] Start: 08-24-2024 End: 08-24-2024 Follow-up encounter 08/24/2024 3:00 PM EDT Follow Up Anticoagulation [facility] Medication Management [address] [place] [address] [facility] Start: 08-05-2024 End: 08-05-2024 Patient encounter procedure [facility] Comment on above: Arrived Start: 08-05-2024 End: 08-05-2024 Follow-up encounter 08/05/2024 12:45 PM EDT Follow Up Anticoagulation [facility] Medication Management [address] [place] [address] [facility] Start: 07-14-2024 End: 07-14-2024 Follow-up encounter 07/14/2024 1:15 PM EST Follow Up Anticoagulation [facility] Medication Therapy Management [address] [place] [address] [facility] Therapy Management Start: 06-30-2024 End: 06-30-2024 Patient encounter procedure 06/30/2024 1:30 PM EST Procedure Visit [facility] [address] [place] [phone] Luci Gant DPM [address] [place] [place], [place] [id number] Arrived [facility] Comment on above: Arrived Start: 06-16-2024 End: 06-16-2024 Follow-up encounter 06/16/2024 1:00 PM EST Follow Up Anticoagulation [facility] Medication Therapy Management [address] [place] [address] [facility] Therapy Management Start: 05-20-2024 End: 05-20-2025 CT Chest WO contrast CT chest without contrast Imaging Routine SOB (shortness of breath) Abnormal CXR Expected: 05/20/2024, Expires: 05/20/2025 [employer] Phone: Comment on above: Expected: 05/20/2024 , Expires: 05/20/2025 Start: 05-17-2024 End: 05-17-2024 Follow-up encounter 05/17/2024 2:15 PM EST Follow Up Anticoagulation [facility] Medication Therapy Management [address] [place] [address] [facility] Med[facility] Therapy Management Start: 05-10-2024 End: 05-10-2025 XR Chest PA and Lateral X-ray chest 2 views Imaging Routine PAF (paroxysmal atrial fibrillation) ([facility]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 Expected: 05/10/2024, Expires: 05/10/2025 [employer] Phone: Comment on above: Expected: 05/10/2024 , Expires: 05/10/2025 Start: 05-09-2024 Depression Screening Depression Scre ening [facility] [employer] [facility] Start: 01-18-2024 Influenza vaccination Influenza Vacc ine (#1) [facility] Start: 09-01-2023 [facility] Start: 09-01-2023 CT guided biopsy [facility] Start: 09-01-[address] guided biopsy [facility] Start: 02-14-2017 Screening for malign ant neoplasm of colon Colonoscopy [facility] [employer] [facility] Start: 2005 Fall Risk Screening Fall Risk Screen ing [facility] [employer] [facility] Start: 1990 Administration of varicella zoster vaccine Zoster (Shingles) Vaccine (1 of 2) [facility] [employer] [facility] Start: 1959 DTaP,Tdap and Td Vaccines (1 - Tdap) DTaP,Tdap and Td Vaccines (1 - Tdap) [employer] aPTT in Platelet poo r plasma by Coagulation assay [facility] CT Abdomen and Pelvi s WO contrast [facility] CT guided biopsy [facility] Patient Education [facility] Work Phone: Patient referral [facility] Work Phone: POCT EKG POCT EKG ECG Rou chacorta PAF (paroxysmal atrial fibrillation) ([facility]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 08/05/2024 1:14 PM EDT [facility] Work Phone: Renal function 2000 panel - Serum or Plasma [facility] Renal function 1999 panel - Serum or Plasma [facility] Renal function 2000 panel - Serum or Plasma [facility] Renal function 2000 panel - Serum or Plasma [facility] Renal function 2000 panel - Serum or Plasma [facility] Renal function 2000 panel - Serum or Plasma [facility] Renal function 2000 panel - Serum or Plasma [facility] Renal function 2000 panel - Serum or Plasma [facility] Renal function 2000 panel - Serum or Plasma [facility] Renal function 2000 panel - Serum or Plasma [facility] Renal function 2000 panel - Serum or Plasma [facility] Renal function 2000 panel - Serum or Plasma [facility] Renal function 2000 panel - Serum or Plasma [facility] Renal function 2000 panel - Serum or Plasma [facility] Immunizations Immunization Date Immunization Notes Care Provider Fa cility 11-16-2024 influenza virus vacc ine, unspecified formulation Luci Gant DPM Work Phone: [facility] 02-19-2023 ABRYSVO - Respirator y syncytial virus (RSV), vaccine, bivalent, protein subunit RSV prefusion F, diluent reconstituted, 0.5 mL, PF Luci Gant DPM Work Phone: [facility] 02-19-2023 Influenza, Seasonal, Quadrivalent, Adjuvanted Luci Gant DPM Work Phone: [facility] 02-19-2023 SARS-COV-2 (COVID-19 ) vaccine, mRNA, spike protein, LNP, PF, anthony-sucrose, 30 mcg/0.3 mL Luci Gant DPM Work Phone: [facility] 02-19-2023 influenza virus vacc ine, unspecified formulation Lucirobert Gant DPM Work Phone: [facility] 03-11-2022 influenza virus vacc ine, unspecified formulation Luci Rus DPM Work Phone: [facility] 05-12-2021 influenza virus vacc ine, unspecified formulation Luci Gant DPM Work Phone: [facility] 03-12-2021 Influenza, High-dose Seasonal, Quadrivalent, Preservative Free Luci Gant DPM Work Phone: [facility] 08-04-2020 COVID-19 Vaccine Cricket [employer]sen - Documentation Purposes Only Alvarofay Mullins Other [facility] 02-09-2020 Influenza, High-dose Seasonal, Quadrivalent, Preservative Free Luci Gant DPM Work Phone: [facility] 02-01-2020 influenza virus vacc ine, unspecified formulation Luci Gant DPM Work Phone: [facility] 01-21-2018 influenza, high dose seasonal, preservative-free Luci Gant DPM Work Phone: [facility] 06-19-2017 pneumococcal conjuga te vaccine, 13 valent Luci Gant DPM Work Phone: [facility] 03-19-2017 influenza virus vacc ine, unspecified formulation Luci Gant DPM Work Phone: [facility] 03-19-2016 seasonal influenza, intradermal, preservative free Luci Gant DPM Work Phone: [facility] 02-06-2016 influenza, seasonal, injectable, preservative free Luci Gant DPM Work Phone: [facility] 03-31-2015 pneumococcal conjuga te vaccine, 13 valent Luci Rusher DPM Work Phone: [facility] 03-28-2015 influenza, seasonal, injectable Tondra Mapus Other [facility] 03-19-2015 pneumococcal polysaccharide vaccine, 23 valent Luci Rusher DPM Work Phone: [facility] 02-14-2015 influenza, seasonal, injectable Luci Rus DPM Work Phone: [facility] 03-31-2014 influenza, seasonal, injectable Luci Rusher DPM Work Phone: [facility] 03-04-2012 influenza virus vacc ine, whole virus Luci Gant DPM Work Phone: [facility] 03-04-2011 influenza virus vacc ine, whole virus Lcui Gant DPM Work Phone: [facility] Payers Date Payer Category Payer Self-pay [id number] 2024 Unknown 2021 Medicare (Managed Care) [employer] Member Subscriber Plan / Payer (Effective 2021-Present) Name: Margie Martínez Relation to Subscriber: Self Name: Margie Martínez Payer ID: Not on file Group ID: [id number] Type: Not on file Address: [facility] [id number] [place] [id number] 2015 Medicare HMO [facility] [employer] Member Subscriber Plan / Payer (Effective 2015-Present) Name: Margie Martínez Relation to Subscriber: Self Name: Margie Martínez Payer ID: [id number] (NAIC) Group ID: [id number] Type: Not on file Address: [facility] [id number] [place] [id number] 1959 Medicare [id number] [id number] 1940 Unknown [id number] 2.16840.1.290529.3.579. 2.593 1940 Unknown [id number] 2.16840.1.744224.3.579. 2.593 1940 Unknown [id number] 2.16.840.1.088335.3.579. 2.1286 1940 Unknown [id number] 2.16840.1.953692.3.579. 2.1286 1940 Unknown [id number] 2.16.840.1.365841.3.579. 2.196 1940 Unknown [id number] 2.16.840.1.465747.3.579. 2.1286 1940 Unknown [id number] 2.16.840.1.620499.3.579. 2.1286 1940 Unknown [id number] 2.16.840.1.788584.3.579. 2.1286 1940 Unknown [id number] 2.16.840.1.894727.3.579. 2.1286 1940 Unknown [id number] 2.16840.1.247280.3.579. 2.1285 1940 Unknown [id number] 2.16.840.1.964659.3.579. 2.128 1940 Unknown [id number] 2.16840.1.069118.3.579. 2.1285 1940 Unknown [id number] 2.16840.1.076586.3.579. 2.128 1940 Unknown [id number] 2.0.1.178048.3.579. 2.1285 1940 Unknown [id number] 2.840.1.412408.3.579. 2.1285 1940 Unknown [id number] 2.0.1.014673.3.579. 2.1285 1940 Unknown [id number] 2.840.1.669519.3.579. 2.1285 1940 Unknown [id number] 2.0.1.518578.3.579. 2.1285 1940 Unknown [id number] 2.840.1.886577.3.579. 2.1285 1940 Unknown [id number] 2.840.1.172203.3.579. 2.1285 1940 Unknown [id number] 2.840.1.357621.3.579. 2.1285 1940 Unknown [id number] 2.840.1.432291.3.579. 2.1285 1940 Unknown [id number] 2.16840.1.486401.3.579. 2.1285 1940 Unknown [id number] 2.840.1.069482.3.579. 2.1286 1940 Unknown [id number] 2.16.840.1.614760.3.579. 2.1286 1940 Unknown [id number] 2.16.840.1.316522.3.579. 2.1286 1940 Unknown [id number] 2.16.840.1.136626.3.579. 2.1286 1940 Unknown [id number] 2.16.840.1.093889.3.579. 2.1259 1940 Unknown [id number] 2.16.840.1.823561.3.579. 2.1259 1940 Unknown [id number] 2.16.840.1.952578.3.579. 2.1259 1940 Unknown [id number] 2.16.840.1.981817.3.579. 2.1259 Unknown Regular Auto/Liability [id number] Unknown [id number] 2.16.840.1.832438.3.579. 2.531 Social History Date Type Detail Facility Unknown if ever smoked [facility] Other Start: 12-11-2023 End: 03-16-2024 Sex Assigned At [facility] [employer] Other Start: 12-10-2020 End: 11-20-2022 Tobacco smoking status IAIS Never smoked tobacco (finding) [facility] Start: 1940 Sex Assigned At Female F [facility] Start: 03-11-2022 End: 11-20-2022 Tobacco use and exposure Smokeless tobacco non-user [facility] Start: 12-11-2023 End: 11-02-2024 Alcoholic beverage intake Ex-drinker (finding) [facility] Start: 12-11-2023 End: 03-16-2024 History of Social function [facility] Start: 1940 Sex assigned at Not on file [facility] Start: 12-22-2014 End: 03-30-2024 Sex Female (finding) [facility] Start: 10-27-2023 End: 08-05-2024 Alcoholic beverage intake Current non-drinker of alcohol (finding) [facility] How often to you hav e a drink containing alcohol? Never [facility] How many standard drinks containing alcohol do you have on a typical day? Patient does not drink [facility] Medical Equipment Procedure Code Equipment Code [...] Leo - 11/02/2024 9:15 AM Christiana Freedman, [facility] - 10/27/2024 11:15 AM EDTTelephone Encounter - Charlene Zuniga - 10/20/2024 8:08 AM Jaime Schumacher, [facility] - 09/28/2024 2:00 PM EDT Note Date [...] Luci Gant DPM documented in this encounter [facility] 10-27-2024 History of Present illness Narrative 15 minute [id number] follow-up anticoagulation appointment. INR performed in office [...] RPH 10/27/24 1116 documented in this encounter [facility] 10-20-2024 Miscellaneous Notes The patient was a no show 10/19/24. [employer] Supervisor KENYA requesting patient call back to schedule another appointment. documented in this encounter [facility] 10-20-2024 Telephone encounter Note The patient was a no show 10/19/24. [employer] Supervisor KENYA requesting patient call back to schedule another appointment. [facility] 09-28-2024 History of Present illness Narrative 15 minute [id number] follow-up anticoagulation appointment. INR performed in office [...] persists or worsens. Alie Schumacher [facility] 09/28/24 1417 documented in this encounter [facility] 09-10-2024 History of Present illness Narrative 15 minute [id number] follow-up anticoagulation appointment. INR performed in office [...] persists or worsens. Alie Schumacher [facility] 09/10/24 1302 documented in this encounter [facility] 09-09-2024 Miscellaneous Notes Last OV 08/05/24 Last lipids 08/25/24.slm documented in this encounter [facility] 09-09-2024 Telephone encounter Note Last OV 08/05/24 Last lipids 08/25/24.slm [facility] 09-08-2024 Miscellaneous Notes LIZETH 08/05/24 Lipid Profile 08/25/24 documented in this encounter [facility] 09-08-2024 Telephone encounter Note LIZETH 08/05/24 Lipid Profile 08/25/24 [facility] 09-01-2024 Radiology Diagnostic study note [facility] [place] [address] CT Scan Report Signed Patient: Margie Martínez MR#: [id number] : 1940 Acct:[id number] Age/Sex: 84 / F ADM Date: 5 Loc: [facility] Room: Type: [facility] Attending Dr: Rin Ramirez MD Copies [...] Urias Jr., D.O.09/01/2024 10:59 AM Dictation Location: [place] [address] Transcribed By: [facility] 09/01/24 1059 Dictated By: Kj Urias Jr, DO 09/01/24 1056 Signed By: 09/01/24 1059 [facility] 08-24-2024 History of Present illness Narrative 15 minute nnjb-bj-mksv follow-up anticoagulation appointment. INR performed in office [...] RPH 08/24/24 1504 documented in this encounter [facility] 08-23-2024 Miscellaneous Notes Last OV 08/05/24 EKG 08/05/24 CXR 05/11/24 Pt having labs drawn tomorrow.slm documented in this encounter [facility] 08-23-2024 Telephone encounter Note Last OV 08/05/24 EKG 08/05/24 CXR 05/11/24 Pt having labs drawn tomorrow.slm [facility] 08-17-2024 Evaluation note Diagnosis Onset Date Resolution [...] kidney disease acute October 26, 2024 9:53am [facility] Work Phone: 1(273) 838-421203-20-2025 History of Present illness Narrative* Kaity Leija MD - 08/05/2024 1:15 PM EDT Margie Martínez Date of visit: 08/05/2024 Date of : 1940 Age: 84 y.o. 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 Take with meals. 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 Paroxysmal atrial fibrillation on anticoagulation 2. [...] RASHAD MERCHANT Referring Physician: RASHAD Cabrera [address] [place] [address] [facility] History of Present illness Narrative* Alie Schumacher, [facility] - 08/05/2024 12:45 PM EDT 15 minute rupk-zk-lgso follow-up anticoagulation appointment. INR performed in office [...] persists or worsens. Alie Schumacher [facility] 08/05/24 1252 [facility]-2025 Miscellaneous Notes* Telephone Encounter - Enedelia Livingston CMA - 08/04/2024 8:53 AM EDT Left message for patient to remind them to bring their most current medication list with them to their appointment. [facility]25 Telephone encounter Note* Telephone Encounter - Enedelia Livingston CMA - 08/04/2024 8:53 AM EDT Left message for patient to remind them to bring their most current medication list with them to their appointment. [facility]02-26-2025 History of Present illness Narrative* Alie Schumacher RP - 07/14/2024 1:15 PM EST 15 minute dshj-ld-unbm follow-up anticoagulation appointment. INR performed in office [...] persists or worsens. Alie Schumacher [facility] 07/14/24 1320 [facility]25 History of Present illness Narrative* Luci Gant, [...] understanding. Luci Gant DPM documented in this encounterCooper County Memorial [id number] Instructions* Patient Instructions* Luci Gant DPM - 06/30/2024 1:30 PM EST As noted documented in this [facility]01-30-2025 Evaluation note* Diagnosis Onset Date Resolution Status [...] kidney disease acute September 13, 2024 10:16am [facility] Work Phone: 1(212) 730-834801-29-2025 NoteXR CHEST 2 VWS Procedure: Chest x-ray performed Number of views:2 History:Atrial fibrillation Comparison:05/14/2024 Findings: The heart and lungs show no acute findings, and the mediastinum and yusef are grossly negative . The pulmonary arteries remain prominent. The cardiac silhouette remains enlarged. Impression: 1. No acute change. Finalized by Jacek Gordillo MD on 06/16/2024 3:22 [facility] 06-16-2024 History of Present illness Narrative* Alie Schumacher, [facility] - 06/16/2024 1:00 PM EST 15 minute lnbe-zl-udoo follow-up anticoagulation appointment. INR performed in office [...] Schumacher RPH 06/16/24 1310 documented in this encounterReg[facility]01-27-2025 Evaluation note* Diagnosis Onset Date Resolution Status [...] Back pain acute August 17 1:57pm [facility] Work Phone: 1(501) 109-188401-16-2025 Evaluation note* Diagnosis Onset Date Resolution Status [...] 1:45pm Back pain acute August 17 1:57pm [facility] Work Phone: 1(854) 519-621301-02-2025 History of Present illness Narrative* Alicia Galvan RN - 05/20/2024 9:16 AM EST CXR discussed with patient, per KW pt to have CT chest. Pt agreeable, all questions answered documented in this encounterSamaritan [email or web address] [facility]'S [id number] History of Present illness Narrative* Alie Schumacher, [facility] - 05/17/2024 2:15 PM EST 15 minute kcfr-wy-upav follow-up anticoagulation appointment. INR performed in office [...] Schumacher RPH 05/17/24 1412 documented in this encounterReg[facility]12-27-2024 NoteXR CHEST 2 VWS History: Shortness of breath Procedure: 2 view PA and Lateral chest radiograph. Comparison: 05/09/2023 Findings: Prominent central pulmonary arteries. Mild interstitial edema. Stable cardiac silhouette.No no pneumothorax. No focal consolidation or pleural effusions. IMPRESSION: Mild interstitial edema. Finalized by Luci Power MD on 05/14/2024 12:18 [facility] 05-07-2024 Miscellaneous Notes* Telephone Encounter - Briana Reeves RN - 05/07/2024 5:41 AM EST OV 07/30/23 Updated labs needed, letter was already mailed 04/20/24. 07/30/23 EKG 05/09/23 CXR 04/07/24 PFT EYE exam ? documented in this [facility]12-20-2024 Telephone encounter Note* Telephone Encounter - Briana Reeves RN - 05/07/2024 5:41 AM EST OV 07/30/23 Updated labs needed, letter was already mailed 04/20/24. 07/30/23 EKG 05/09/23 CXR 04/07/24 PFT EYE exam ? [facility]12-18-2024 Miscellaneous Notes* Telephone Encounter - Briana Reeves RN - 05/05/2024 6:02 PM EST OV 07/30/23 Updated labs needed, letter was already mailed 04/20/24. 07/30/23 EKG 05/09/23 CXR 04/07/24 PFT EYE exam ? documented in this encounterRegency Hospital [facility]12-18-2024 Telephone encounter Note* Telephone Encounter - Briana Reeves RN - 05/05/2024 6:02 PM EST OV 07/30/23 Updated labs needed, letter was already mailed 04/20/24. 07/30/23 EKG 05/09/23 CXR 04/07/24 PFT EYE exam ? [facility]12-17-2024 Evaluation note* Diagnosis Onset Date Resolution Status [...] kidney disease acute July 27, 2024 1:45pm [facility] Work Phone: 1(100) 725-885112-03-2024 Evaluation note* Diagnosis Onset Date Resolution Status [...] di abetes mellitus acute June 03 11:32am [facility] Work Phone: 1(143) 373-615812-03-2024 Evaluation note* Diagnosis Onset Date Resolution Status [...] 2024 1:49pm Hyperlipidemia acute June 142024 1:49pm [facility] Work Phone: 1(974) 177-382312-03-2024 Evaluation note* Diagnosis Onset Date Resolution Status [...] di abetes mellitus acute June 17 1:50pm [facility] Work Phone: 1(176) 699-387212-03-2024 Evaluation note* Diagnosis Onset Date Resolution Status [...] diabetic chronic kidney disease acute 2024 9:50am [facility] Work Phone: 1(630) 776-719510-29-2024 History of Present illness Narrative* Luci Gant, [...] understanding. Luci Gant DPM documented in this encounterCooper County Memorial [id number] Instructions* Patient Instructions* Luci Gant DPM - 03/16/2024 1:30 PM EDT As noted documented in this encounterCooper County Memorial [id number] Evaluation note* Diagnosis Onset Date Resolution Status [...] e IV (severe) acute March 23 1:58pm [facility] Work Phone: 1(604) 585-553801-16-2024 Evaluation note* Encounter Date Diagnosis Assessment Notes Treatment Notes Treatment Clinical Notes May, Edema (ICD-10 - R60.9) [facility] 12-06-2023 Evaluation note* Encounter Date Diagnosis Assessment Notes Treatment Notes Treatment Clinical Notes Apr, Nephritis (ICD-10 - N05.9) [facility] 12-05-2023 Evaluation note* Encounter Date Diagnosis [...] check iron, folate and VB12 storage studies [facility] 12-04-2023 Evaluation note* Encounter Date Diagnosis Assessment Notes Treatment Notes Treatment Clinical Notes Apr, Edema (ICD-10 - R60.9) [facility] 10-04-2023 Evaluation note* Encounter Date Diagnosis [...] hypertension material was printed on arb Feb, care home current use of insulin (ICD-10 - Z79.4) Feb, Vitamin B 12 deficiency (ICD-10 - E53.8) 09/08 b12 345 at target Feb, Albuminuria (ICD-10 - R80.9) Protein, urine material was printed Reviewed importance of glucose/bp control to prevent further nephropathy. Keep f/u with nephrology Feb, BMI 40.0-44.9, adult (ICD-10 - Z68.41) [facility] 09-27-2023 Evaluation note* Encounter Date Diagnosis [...] a computer on the screen. Pt contacted [employer] for reader replacement. Pt also brought in new reader. New reader set up with pt. Instructed pt to send old reader back to [employer]. Pt states she will send old reader [...] spent on education by Rangel CANTU, RN [facility] 06-06-2023 Evaluation note* Encounter Date Diagnosis [...] On Bumex for volume management Avoid NSAIDs [facility] 04-03-2023 Evaluation note* Encounter Date Diagnosis Assessment Notes Treatment Notes Treatment Clinical Notes Aug, Dietary counseling and surveillance (ICD-10 - Z71.3) Maintaining a healthful weight material was printed see above Aug, Type 2 diabetes mellitus (ICD-10 - E11.9) Type 2 diabetes material was printed 1. Controlled, Type 2 diabetes with A1c 6.5%. 2. Blood glucose levels stable. According to [employer] 2 cgm download 08/06/2022-08/19/2022 Avg glucose 129. [...] hypertension material was printed on arb Aug, care home current use of insulin (ICD-10 - Z79.4) Aug, Vitamin B 12 deficiency (ICD-10 - E53.8) 09/08 b12 345 at target Aug, Albuminuria (ICD-10 - R80.9) Protein, urine material was printed Reviewed importance of glucose/bp control to prevent further nephropathy. 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) [...] E11.649) Hypoglycemia material was printed see above [facility] 09-12-2022 Evaluation note* Encounter Date Diagnosis Assessment Notes Treatment Notes Treatment Clinical Notes Jan, Edema (ICD-10 - R60.9) [facility] 08-24-2022 Evaluation note* Encounter Date Diagnosis Assessment Notes Treatment Notes Treatment Clinical Notes Dec, Type 2 diabetes mellitus with diabetic chronic kidney disease (ICD-10 - E11.22) Dec, Type 2 diabetes mellitus (ICD-10 - E11.9) [facility] 06-17-2022 Evaluation note* Encounter Date Diagnosis Assessment Notes Treatment Notes Treatment Clinical Notes Oct, Vitamin B 12 deficiency (ICD-10 - E53.8) [facility] 06-07-2022 Evaluation note* Encounter Date Diagnosis [...] arthritis and sleep apnea has been addressed. 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) [...] E11.649) Hypoglycemia material was printed see above [facility] 01-17-2021 History general Narrative - Reported* [...] History SEE ABOVE Hospitalization History COPD 07/08 [facility] Other Evaluygdil noteNo InformationNort [employer] Other evaluation noteNo assessment information available [facility] Work Phone: [email or web address] note* Diagnosis Onset Date Resolution Status Anemia acute BMI 50.0-59.9, adult acute Edema acute Hyperlipidemia acute [id number] acute Stage 3b chronic kidney disease (CKD) acute Type 2 diabetes mellitus wit h diabetic chronic kidney disease acute [facility] Work Phone: Evaluation note* Diagnosis Onset Date Resolution Status Anemia acute BMI 50.0-59.9, adult acute Edema acute Hyperlipidemia acute [id number] acute Stage 3b chronic kidney disease (CKD) acute Type 2 diabetes mellitus wit h diabetic chronic kidney disease acute Diabetes acute Dietary counseling and surveillance acute HTN (hypertension) acute Hyperlipidemia acute Vitamin B 12 deficiency acut e [facility] Work Phone: Evaluation note* Diagnosis Onset Date Resolution Status Anemia acute BMI 50.0-59.9, adult acute Edema acute Hyperlipidemia acute [id number] acute Stage 3b chronic kidney disease (CKD) acute Type 2 diabetes mellitus wit h diabetic chronic kidney disease acute BMI 40.0-44.9, adult acute Diabetes acute Dietary counseling and surveillance acute HTN (hypertension) acute Hyperlipidemia acute Vitamin B 12 deficiency acut e [facility] Work Phone: Evaluation note* Diagnosis Onset Date Resolution Status Anemia acute BMI 50.0-59.9, adult acute Edema acute Hyperlipidemia acute [id number] acute Stage 3b chronic kidney disease (CKD) acute Type 2 diabetes mellitus wit h diabetic chronic kidney disease acute BMI 40.0-44.9, adult acute Diabetes acute Dietary counseling and surveillance acute HTN (hypertension) acute Hyperlipidemia acute Vitamin B 12 deficiency acut e Anemia acute Edema acute Fibrillary glomerulonephritis acute Hyperparathyroidism acute [id number] acute Stage 3b chronic kidney disease (CKD) acute Type 2 diabetes mellitus wit h diabetic chronic kidney disease acute [facility] Work Phone: Evaluation note* Diagnosis Onset Date Resolution Status Anemia acute BMI 50.0-59.9, adult acute Edema acute Hyperlipidemia acute [id number] acute Stage 3b chronic kidney disease (CKD) acute Type 2 diabetes mellitus wit h diabetic chronic kidney disease acute BMI 40.0-44.9, adult acute Diabetes acute Dietary counseling and surveillance acute HTN (hypertension) acute Hyperlipidemia acute Vitamin B 12 deficiency acut e Anemia acute Edema acute Fibrillary glomerulonephritis acute Hyperparathyroidism acute [id number] acute Stage 3b chronic kidney disease (CKD) acute Type 2 diabetes mellitus wit h diabetic chronic kidney disease acute Anemia acute Edema acute Fibrillary glomerulonephritis acute Hyperparathyroidism acute [id number] acute Stage 3b chronic kidney disease (CKD) acute Type 2 diabetes mellitus wit h diabetic chronic kidney disease acute [facility] Work Phone: Evaluation note* Diagnosis Onset Date Resolution Status Anemia acute BMI 50.0-59.9, adult acute Edema acute Hyperlipidemia acute [id number] acute Stage 3b chronic kidney disease (CKD) acute Type 2 diabetes mellitus wit h diabetic chronic kidney disease acute BMI 40.0-44.9, adult acute Diabetes acute Dietary counseling and surveillance acute HTN (hypertension) acute Hyperlipidemia acute Vitamin B 12 deficiency acut e Anemia acute Edema acute Fibrillary glomerulonephritis acute Hyperparathyroidism acute [id number] acute Stage 3b chronic kidney disease (CKD) acute Type 2 diabetes mellitus wit h diabetic chronic kidney disease acute Anemia acute Edema acute Fibrillary glomerulonephritis acute Hyperparathyroidism acute [id number] acute Stage 3b chronic kidney disease (CKD) acute Type 2 diabetes mellitus wit h diabetic chronic kidney disease acute Anemia acute Edema acute Fibrillary glomerulonephritis acute Hyperparathyroidism acute [id number] acute Stage 3b chronic kidney disease (CKD) acute Type 2 diabetes mellitus wit h diabetic chronic kidney disease acute [facility] Work Phone: Evaluation note* Diagnosis Onset Date Resolution Status Anemia acute BMI 50.0-59.9, adult acute Edema acute Hyperlipidemia acute [id number] acute Stage 3b chronic kidney disease (CKD) acute Type 2 diabetes mellitus wit h diabetic chronic kidney disease acute BMI 40.0-44.9, adult acute Diabetes acute Dietary counseling and surveillance acute HTN (hypertension) acute Hyperlipidemia acute Vitamin B 12 deficiency acut e Anemia acute Edema acute Fibrillary glomerulonephritis acute Hyperparathyroidism acute [id number] acute Stage 3b chronic kidney disease (CKD) acute Type 2 diabetes mellitus wit h diabetic chronic kidney disease acute Anemia acute Edema acute Fibrillary glomerulonephritis acute Hyperparathyroidism acute [id number] acute Stage 3b chronic kidney disease (CKD) acute Type 2 diabetes mellitus wit h diabetic chronic kidney disease acute Anemia acute Edema acute Fibrillary glomerulonephritis acute Hyperparathyroidism acute [id number] acute Stage 3b chronic kidney disease (CKD) acute Type 2 diabetes mellitus wit h diabetic chronic kidney disease acute Anemia acute Edema acute Fibrillary glomerulonephritis acute Hyperkalemia acute Hyperparathyroidism acute [id number] acute Stage 3b chronic kidney disease (CKD) acute Type 2 diabetes mellitus wit h diabetic chronic kidney disease acute [facility] Work Phone: Evaluation note* Diagnosis Onset Date Resolution Status BMI 40.0-44.9, adult acute Diabetes acute Dietary counseling and surveillance acute HTN (hypertension) acute Hyperlipidemia acute Vitamin B 12 deficiency acut e Anemia acute Edema acute Fibrillary glomerulonephritis acute Hyperparathyroidism acute [id number] acute Stage 3b chronic kidney disease (CKD) acute Type 2 diabetes mellitus wit h diabetic chronic kidney disease acute Anemia acute Edema acute Fibrillary glomerulonephritis acute Hyperparathyroidism acute [id number] acute Stage 3b chronic kidney disease (CKD) acute Type 2 diabetes mellitus wit h diabetic chronic kidney disease acute Anemia acute Edema acute Fibrillary glomerulonephritis acute Hyperparathyroidism acute [id number] acute Stage 3b chronic kidney disease (CKD) acute Type 2 diabetes mellitus wit h diabetic chronic kidney disease acute Anemia acute Edema acute Fibrillary glomerulonephritis acute Hyperkalemia acute Hyperparathyroidism acute [id number] acute Stage 3b chronic kidney disease (CKD) acute Type 2 diabetes mellitus wit h diabetic chronic kidney disease acute Anemia acute Edema acute Fibrillary glomerulonephritis acute Hyperkalemia acute Hyperparathyroidism acute [id number] acute Stage 3b chronic kidney disease (CKD) acute Type 2 diabetes mellitus wit h diabetic chronic kidney disease acute [facility] Work Phone: Evaluation note* Diagnosis Onset Date Resolution Status Anemia acute Edema acute Fibrillary glomerulonephritis acute Hyperparathyroidism acute [id number] acute Stage 3b chronic kidney disease (CKD) acute Type 2 diabetes mellitus wit h diabetic chronic kidney disease acute Anemia acute Edema acute Fibrillary glomerulonephritis acute Hyperparathyroidism acute [id number] acute Stage 3b chronic kidney disease (CKD) acute Type 2 diabetes mellitus wit h diabetic chronic kidney disease acute Anemia acute Edema acute Fibrillary glomerulonephritis acute Hyperparathyroidism acute [id number] acute Stage 3b chronic kidney disease (CKD) acute Type 2 diabetes mellitus wit h diabetic chronic kidney disease acute Anemia acute Edema acute Fibrillary glomerulonephritis acute Hyperkalemia acute Hyperparathyroidism acute [id number] acute Stage 3b chronic kidney disease (CKD) acute Type 2 diabetes mellitus wit h diabetic chronic kidney disease acute Anemia acute Edema acute Fibrillary glomerulonephritis acute Hyperkalemia acute Hyperparathyroidism acute [id number] acute Stage 3b chronic kidney disease (CKD) acute Type 2 diabetes mellitus wit h diabetic chronic kidney disease acute BMI 40.0-44.9, adult acute Diabetes acute Dietary counseling and surveillance acute HTN (hypertension) acute Hyperlipidemia acute Vitamin B 12 deficiency acut e [facility] Work Phone: Evaluation note* Diagnosis Onset Date Resolution Status Anemia acute Edema acute Fibrillary glomerulonephritis acute Hyperparathyroidism acute [id number] acute Stage 3b chronic kidney disease (CKD) acute Type 2 diabetes mellitus wit h diabetic chronic kidney disease acute Anemia acute Edema acute Fibrillary glomerulonephritis acute Hyperparathyroidism acute [id number] acute Stage 3b chronic kidney disease (CKD) acute Type 2 diabetes mellitus wit h diabetic chronic kidney disease acute Anemia acute Edema acute Fibrillary glomerulonephritis acute Hyperkalemia acute Hyperparathyroidism acute [id number] acute Stage 3b chronic kidney disease (CKD) acute Type 2 diabetes mellitus wit h diabetic chronic kidney disease acute Anemia acute Edema acute Fibrillary glomerulonephritis acute Hyperkalemia acute Hyperparathyroidism acute [id number] acute Stage 3b chronic kidney disease (CKD) acute Type 2 diabetes mellitus wit h diabetic chronic kidney disease acute BMI 40.0-44.9, adult acute Diabetes acute Dietary counseling and surveillance acute HTN (hypertension) acute Hyperlipidemia acute Vitamin B 12 deficiency acut e Anemia acute Stage 3a chronic kidney disease (CKD) acute [facility] Work Phone: Evaluation note* Diagnosis Onset Date Resolution Status Anemia acute Edema acute Fibrillary glomerulonephritis acute Hyperparathyroidism acute [id number] acute Stage 3b chronic kidney disease (CKD) acute Type 2 diabetes mellitus wit h diabetic chronic kidney disease acute Anemia acute Edema acute Fibrillary glomerulonephritis acute Hyperkalemia acute Hyperparathyroidism acute [id number] acute Stage 3b chronic kidney disease (CKD) acute Type 2 diabetes mellitus wit h diabetic chronic kidney disease acute Anemia acute Edema acute Fibrillary glomerulonephritis acute Hyperkalemia acute Hyperparathyroidism acute [id number] acute Stage 3b chronic kidney disease (CKD) acute Type 2 diabetes mellitus wit h diabetic chronic kidney disease acute BMI 40.0-44.9, adult acute Diabetes acute Dietary counseling and surveillance acute HTN (hypertension) acute Hyperlipidemia acute Vitamin B 12 deficiency acut e Anemia acute Stage 3a chronic kidney disease (CKD) acute [facility] Work Phone: Evaluation note* Diagnosis Onset Date Resolution Status Anemia acute Edema acute Fibrillary glomerulonephritis acute Hyperparathyroidism acute [id number] acute Stage 3b chronic kidney disease (CKD) acute Type 2 diabetes mellitus wit h diabetic chronic kidney disease acute Anemia acute Edema acute Fibrillary glomerulonephritis acute Hyperkalemia acute Hyperparathyroidism acute [id number] acute Stage 3b chronic kidney disease (CKD) acute Type 2 diabetes mellitus wit h diabetic chronic kidney disease acute Anemia acute Edema acute Fibrillary glomerulonephritis acute Hyperkalemia acute Hyperparathyroidism acute [id number] acute Stage 3b chronic kidney disease (CKD) [...] Stage 3a chronic kidney disease (CKD) acute [facility] Work Phone: Evaluation note* Diagnosis Onset Date Resolution Status Anemia acute Edema acute Fibrillary glomerulonephritis acute Hyperkalemia acute Hyperparathyroidism acute [id number] acute Stage 3b chronic kidney disease (CKD) acute Type 2 diabetes mellitus wit h diabetic chronic kidney disease acute Anemia acute Edema acute Fibrillary glomerulonephritis acute Hyperkalemia acute Hyperparathyroidism acute [id number] acute Stage 3b chronic kidney disease (CKD) [...] Fibrillary glomerulonephritis acute Hyperkalemia acute Hyperparathyroidism acute [id number] acute Stage 3b chronic kidney disease (CKD) acute Type 2 diabetes mellitus wit h diabetic chronic kidney disease acute [facility] Work Phone: Evaluation note* Diagnosis Onset Date Resolution Status Anemia acute Edema acute Fibrillary glomerulonephritis acute Hyperkalemia acute Hyperparathyroidism acute [id number] acute Stage 3b chronic kidney disease (CKD) [...] Fibrillary glomerulonephritis acute Hyperkalemia acute Hyperparathyroidism acute [id number] acute Stage 3b chronic kidney disease (CKD) acute Type 2 diabetes mellitus wit h diabetic chronic kidney disease acute [facility] Work Phone: Evaluation note* Diagnosis Onset [...] Fibrillary glomerulonephritis acute Hyperkalemia acute Hyperparathyroidism acute [id number] acute Stage 3b chronic kidney disease (CKD) acute Type 2 diabetes mellitus wit h diabetic chronic kidney disease acute Anemia acute Anemia of renal disease acut e 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 acute [id number] acute [facility] Work Phone: Evaluation note* Diagnosis Dermatophytosis of nail- Primary Dystrophic nail Other specified disease of nail Pain around toenail, right foot Pain around toenail, left foot [facility] Onset Date Resolution Status Anemia acute Anemia of renal disease acut e Stage 3a chronic kidney disease (CKD) acute Anemia of renal disease acut e Stage 3b chronic kidney disease (CKD) acute Anemia acute Edema acute Fibrillary glomerulonephritis acute Hyperkalemia acute Hyperparathyroidism acute [id number] acute Stage 3b chronic kidney disease (CKD) acute Type 2 diabetes mellitus wit h diabetic chronic kidney disease acute Anemia acute Anemia of renal disease acut e Stage 3b chronic kidney disease (CKD) acute Anemia acute Chronic kidney disease, stage IV (severe) acute Edema acute Fibrillary glomerulonephritis acute Hyperkalemia acute Hyperparathyroidism acute [id number] acute Type 2 diabetes mellitus wit h diabetic chronic kidney disease acute Anemia acute Chronic kidney disease, stage IV (severe) acute [facility] Work Phone: Evaluation note* 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 PAF (paroxysmal atrial fibrillation) ([facility]) Atrial fibrillation [facility]* Diagnosis Hyperlipidemia, unspecified hyperlipidemia type documented in [facility]* Diagnosis PAF (paroxysmal atrial fibrillation) ([facility])- Primary Atrial fibrillation [facility] Diagnosis SOB (shortness of breath)- Primary Shortness of breath Abnormal CXR Nonspecific (abnormal) findings on radiological and other examination of lung field [facility] Diagnosis PAF (paroxysmal atrial fibrillation) ([facility])- Primary Atrial fibrillation [facility]* Diagnosis Dermatophytosis of nail- Primary Dystrophic nail Other specified disease of nail Pain around toenail, right foot Pain around toenail, left foot [facility] (paroxysmal atrial fibrillation) ([facility] Primary Atrial fibrillation care home current use of amiodarone 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 ([facility]) [facility] Diagnosis PAF (paroxysmal atrial fibrillation) ([facility]) Atrial fibrillation [facility] Diagnosis PAF (paroxysmal atrial fibrillation) ([facility] Primary Atrial fibrillation [facility] Diagnosis Hyperlipidemia, unspecified hyperlipidemia type [facility]* Diagnosis PAF (paroxysmal atrial fibrillation) ([facility] Primary Atrial fibrillation documented [facility] encounter [facility]* Diagnosis Hyperlipidemia, unspecified hyperlipidemia type [facility] instructionsAmbulatory Orders* AMB POC INR Time Frame: 2 Months, Location: Determined By Patient [facility] Work Phone: Hospital Discharge instructionsAmbulatory Orders* Referral to Pain Management Time Frame: 09/13/24, Location: None Selected [facility] Work Phone: InstructionsNot on filedocumented in this encounter [facility] filed[facility] filed[facility] this [facility] SystemInstructionsNot on filedocumented in this encounter [facility] Summary Purpose Family History No Family History [...] Visit Anemia BMI 50.0-59.9, adult Edema Hyperlipidemia [id number] 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 Chief Complaint RENAL 3 month Follow up kusum reader Reason for Visit Anemia BMI 50.0-59.9, adult Edema Hyperlipidemia [id number] 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 Diabetes Dietary counseling and surveillance HTN (hypertension) Hyperlipidemia Vitamin B 12 deficiency Chief Complaint RENAL 3 month Follow up kusum reader N18.32 R60.9 D64.9 Z68.43 E78.5 E11.22 I12.9 Reason for Visit Anemia BMI 50.0-59.9, adult Edema Hyperlipidemia [id number] 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 BMI 40.0-44.9, adult Diabetes Dietary counseling and surveillance HTN (hypertension) Hyperlipidemia Vitamin B 12 deficiency Chief Complaint RENAL 3 month Follow up kusum reader N18.32 R60.9 D64.9 Z68.43 E78.5 E11.22 I12.9 RENAL F/U Reason for Visit Anemia BMI 50.0-59.9, adult Edema Hyperlipidemia [id number] 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 BMI 40.0-44.9, adult Diabetes Dietary counseling and surveillance HTN (hypertension) Hyperlipidemia Vitamin B 12 deficiency Anemia Edema Fibrillary glomerulonephritis Hyperparathyroidism [id number] Stage 3b chronic kidney disease (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 Chief Complaint RENAL 3 month Follow up kusum reader N18.32 R60.9 D64.9 Z68.43 E78.5 E11.22 I12.9 RENAL F/U 3 week f/u Reason for Visit Anemia BMI 50.0-59.9, adult Edema Hyperlipidemia [id number] Stage 3b chronic kidney disease (CKD) Type 2 diabetes mellitus with diabetic chronic kidney disease BMI 40.0-44.9, adult Diabetes Dietary counseling and surveillance HTN (hypertension) Hyperlipidemia Vitamin B 12 deficiency Anemia Edema Fibrillary glomerulonephritis Hyperparathyroidism [id number] Stage 3b chronic kidney disease (CKD) Type 2 diabetes mellitus with diabetic chronic kidney disease Anemia Edema Fibrillary glomerulonephritis Hyperparathyroidism [id number] Stage 3b chronic kidney disease (CKD) Type 2 diabetes mellitus with diabetic chronic kidney disease Chief Complaint RENAL 3 month Follow up kusum reader N18.32 R60.9 D64.9 Z68.43 E78.5 E11.22 I12.9 RENAL F/U 3 week f/u RENAL 2 MONTH F/U Reason for Visit Anemia BMI 50.0-59.9, adult Edema Hyperlipidemia [id number] 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 BMI 40.0-44.9, adult Diabetes Dietary counseling and surveillance HTN (hypertension) Hyperlipidemia Vitamin B 12 deficiency Anemia Edema Fibrillary glomerulonephritis Hyperparathyroidism [id number] Stage 3b chronic kidney disease (CKD) Type 2 diabetes mellitus with diabetic chronic kidney disease Anemia Edema Fibrillary glomerulonephritis Hyperparathyroidism [id number] Stage 3b chronic kidney disease (CKD) Type 2 diabetes mellitus with diabetic chronic kidney disease Anemia Edema Fibrillary glomerulonephritis Hyperparathyroidism [id number] Stage 3b chronic kidney disease (CKD) Type 2 diabetes mellitus with diabetic chronic kidney disease Chief Complaint RENAL 3 month Follow up kusum reader N18.32 R60.9 D64.9 Z68.43 E78.5 E11.22 I12.9 RENAL F/U 3 week f/u RENAL 2 MONTH F/U RENAL 3 WK INJ RETACRIT Reason for Visit Anemia BMI 50.0-59.9, adult Edema Hyperlipidemia [id number] Stage 3b chronic kidney disease (CKD) Type 2 diabetes mellitus with diabetic chronic kidney disease BMI 40.0-44.9, adult Diabetes Dietary counseling and surveillance HTN (hypertension) Hyperlipidemia Vitamin B 12 deficiency Anemia Edema Fibrillary glomerulonephritis Hyperparathyroidism [id number] Stage 3b chronic kidney disease (CKD) Type 2 diabetes mellitus with diabetic chronic kidney disease Anemia Edema Fibrillary glomerulonephritis Hyperparathyroidism [id number] Stage 3b chronic kidney disease (CKD) Type 2 diabetes mellitus with diabetic chronic kidney disease Anemia Edema Fibrillary glomerulonephritis Hyperparathyroidism [id number] Stage 3b chronic kidney disease (CKD) Type 2 diabetes mellitus with diabetic chronic kidney disease Anemia Edema Fibrillary glomerulonephritis Hyperkalemia Hyperparathyroidism [id number] Stage 3b chronic kidney disease (CKD) Type [...] 12 deficiency Anemia Edema Fibrillary glomerulonephritis Hyperparathyroidism [id number] Stage 3b chronic kidney disease (CKD) Type 2 diabetes mellitus with diabetic chronic kidney disease Anemia Edema Fibrillary glomerulonephritis Hyperparathyroidism [id number] Stage 3b chronic kidney disease (CKD) Type 2 diabetes mellitus with diabetic chronic kidney disease Anemia Edema Fibrillary glomerulonephritis Hyperparathyroidism [id number] Stage 3b chronic kidney disease (CKD) Type 2 diabetes mellitus with diabetic chronic kidney disease Anemia Edema Fibrillary glomerulonephritis Hyperkalemia Hyperparathyroidism [id number] Stage 3b chronic kidney disease (CKD) Type 2 diabetes mellitus with diabetic chronic kidney disease Anemia Edema Fibrillary glomerulonephritis Hyperkalemia Hyperparathyroidism [id number] Stage 3b chronic kidney disease (CKD) Type 2 diabetes mellitus with diabetic chronic kidney disease Chief Complaint RENAL F/U 3 week f/u RENAL 2 MONTH F/U RENAL 3 WK INJ RETACRIT RENAL 2 WK INJ / RETACRIT METER Reason for Visit Anemia Edema Fibrillary glomerulonephritis Hyperparathyroidism [id number] Stage 3b chronic kidney disease (CKD) Type 2 diabetes mellitus with diabetic chronic kidney disease Anemia Edema Fibrillary glomerulonephritis Hyperparathyroidism [id number] Stage 3b chronic kidney disease (CKD) Type 2 diabetes mellitus with diabetic chronic kidney disease Anemia Edema Fibrillary glomerulonephritis Hyperparathyroidism [id number] Stage 3b chronic kidney disease (CKD) Type 2 diabetes mellitus with diabetic chronic kidney disease Anemia Edema Fibrillary glomerulonephritis Hyperkalemia Hyperparathyroidism [id number] Stage 3b chronic kidney disease (CKD) Type 2 diabetes mellitus with diabetic chronic kidney disease Anemia Edema Fibrillary glomerulonephritis Hyperkalemia Hyperparathyroidism [id number] Stage 3b chronic kidney disease (CKD) Type [...] for Visit Anemia Edema Fibrillary glomerulonephritis Hyperparathyroidism [id number] Stage 3b chronic kidney disease (CKD) Type 2 diabetes mellitus with diabetic chronic kidney disease Anemia Edema Fibrillary glomerulonephritis Hyperparathyroidism [id number] Stage 3b chronic kidney disease (CKD) Type 2 diabetes mellitus with diabetic chronic kidney disease Anemia Edema Fibrillary glomerulonephritis Hyperkalemia Hyperparathyroidism [id number] Stage 3b chronic kidney disease (CKD) Type 2 diabetes mellitus with diabetic chronic kidney disease Anemia Edema Fibrillary glomerulonephritis Hyperkalemia Hyperparathyroidism [id number] Stage 3b chronic kidney disease (CKD) Type [...] for Visit Anemia Edema Fibrillary glomerulonephritis Hyperparathyroidism [id number] Stage 3b chronic kidney disease (CKD) Type 2 diabetes mellitus with diabetic chronic kidney disease Anemia Edema Fibrillary glomerulonephritis Hyperkalemia Hyperparathyroidism [id number] Stage 3b chronic kidney disease (CKD) Type 2 diabetes mellitus with diabetic chronic kidney disease Anemia Edema Fibrillary glomerulonephritis Hyperkalemia Hyperparathyroidism [id number] Stage 3b chronic kidney disease (CKD) Type [...] for Visit Anemia Edema Fibrillary glomerulonephritis Hyperparathyroidism [id number] Stage 3b chronic kidney disease (CKD) Type 2 diabetes mellitus with diabetic chronic kidney disease Anemia Edema Fibrillary glomerulonephritis Hyperkalemia Hyperparathyroidism [id number] Stage 3b chronic kidney disease (CKD) Type 2 diabetes mellitus with diabetic chronic kidney disease Anemia Edema Fibrillary glomerulonephritis Hyperkalemia Hyperparathyroidism [id number] Stage 3b chronic kidney disease (CKD) Type [...] Visit Anemia Edema Fibrillary glomerulonephritis Hyperkalemia Hyperparathyroidism [id number] Stage 3b chronic kidney disease (CKD) Type 2 diabetes mellitus with diabetic chronic kidney disease Anemia Edema Fibrillary glomerulonephritis Hyperkalemia Hyperparathyroidism [id number] Stage 3b chronic kidney disease (CKD) Type [...] (CKD) Anemia Edema Fibrillary glomerulonephritis Hyperkalemia Hyperparathyroidism [id number] Stage 3b chronic kidney disease (CKD) Type [...] Visit Anemia Edema Fibrillary glomerulonephritis Hyperkalemia Hyperparathyroidism [id number] Stage 3b chronic kidney disease (CKD) Type [...] (CKD) Anemia Edema Fibrillary glomerulonephritis Hyperkalemia Hyperparathyroidism [id number] Stage 3b chronic kidney disease (CKD) Type [...] (CKD) Anemia Edema Fibrillary glomerulonephritis Hyperkalemia Hyperparathyroidism [id number] Stage 3b chronic kidney disease (CKD) Type 2 diabetes mellitus with diabetic chronic kidney disease Anemia Anemia of renal disease 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 [id number] Chief Complaint RENAL 2 WK INJ/RETAC RIT/NURSE [...] (CKD) Anemia Edema Fibrillary glomerulonephritis Hyperkalemia Hyperparathyroidism [id number] Stage 3b chronic kidney disease (CKD) Type 2 diabetes mellitus with diabetic chronic kidney disease Anemia Anemia of renal disease Stage 3b chronic kidney disease (CKD) Anemia Chronic kidney disease, stage IV (severe) Edema Fibrillary glomerulonephritis Hyperkalemia Hyperparathyroidism [id number] Type 2 diabetes mellitus with diabetic chronic [...] stage 4 due to type 1 diabetes [facility] June 03, 2024 11:32am BMI 40.0-44.9, [...] stage 4 due to type 1 diabetes [facility] May 04, 2024 11:08am Anemia of [...] stage 4 due to type 1 diabetes [facility] May 04, 2024 11:08am Anemia of [...] stage 4 due to type 1 diabetes [facility] May 04, 2024 11:08am Anemia of renal disease June 03 11:32am 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 [facility] June 03, 2024 11:32am BMI 40.0-44.9, [...] and content) DATE CREATED AUTHOR 10/27/2022 [facility] DATE CREATED AUTHOR AUTHOR'S ORGANIZ ATION 01/13/2024 [facility] DATE CREATED AUTHOR AUTHOR'S ORGANIZ ATION 05/12/2024 [facility] DATE CREATED AUTHOR AUTHOR'S ORGANIZ ATION 09/03/2024 [facility] DATE CREATED AUTHOR AUTHOR'S ORGANIZ ATION 10/15/2024 [facility] DATE CREATED AUTHOR AUTHOR'S ORGANIZ ATION 10/29/2024 [facility] DATE CREATED AUTHOR AUTHOR'S ORGANIZ ATION 11/04/2024 [facility] d[facility] Special[facility] EPIC Care Teams [...] Role Status Dates Anika Deepa Elaine , SEED SPECIALIST-C Primary Care Provider Active Start: August 17, 2024 End: August 17, 2024 Rin Ramirez MD Attending Provider Active Star t: August 17, 2024 End: August 17, 2024 Team Status: Inactive Member Role Status Dates Anika Henry SEED SPECIALIST-C Primary Care Provider Active Start: September 01, 2024 End: September 01, 2024 Rin Ramirez MD Attending Provider Active Star t: September 01, 2024 End: September 01, 2024 Team Status: Active Member Role Status Dates Rin Ramirez MD Attending Provider Active Star t: September 02, 2024 Anika Henry SEED SPECIALIST-C Primary Care Provider Active Start: September 02, 2024 Team Status: Inactive Member Role Status Dates Anika Henry SEED SPECIALIST-C Primary Care Provider Active Start: September 13, 2024 End: September 13, 2024 Becac Rodriguez MD Attending Provider Active Start : September 13, 2024 End: September 13, 2024 Team Status: Active Member Role Status Dates Anika Henry SEED SPECIALIST-C Primary Care Provider Active Start: September 29, 2024 Becca Rodriguez MD Attending Provider Active Start : September 29, 2024 Team Status: Inactive Member Role Status Dates Anika Henry SEED SPECIALIST-C Primary Care Provider Active Start: October 05, 2024 End: October 05, 2024 Rin Ramirez MD Attending Provider Active Star t: October 05, 2024 End: October 05, 2024 Team Status: Active Member Role Status Dates Rin Ramirez MD Attending Provider Active Star t: October 22, 2024 Anika Henry SEED SPECIALIST-C Primary Care Provider Active Start: October 22, 2024 Team Status: Inactive Member Role Status Dates Anika Henry SEED SPECIALIST-C Primary Care Provider Active Start: October 26, 2024 End: October 26, 2024 Rin Ramirez MD Attending Provider Active Star t: October 26, 2024 End: October 26, 2024 Team Status: Inactive Member Role Status Dates Anika Henry SEED SPECIALIST-C Primary Care Provider Active Start: June 14, 2024 End: June 14, 2024 Chester Lin APRN Attending Provider Active Start: June 14, 2024 End: June 14, 2024 Team Status: Inactive Member Role Status Dates Anika Henry SEED SPECIALIST-C Primary Care Provider Active Start: June 17, 2024 End: June 17, 2024 Becca Rodriguez MD Attending Provider Active Start : June 17, 2024 End: June 17, 2024 Team Status: Inactive Member Role Status Dates Anika Henry SEED SPECIALIST-C Primary Care Provider Active Start: 2024 End: 2024 Rin Ramirez MD Attending Provider Active Star t: 2024 End: 2024 Team Status: Active Member Role Status Dates Rin Ramirez MD Attending Provider Active Star t: July 20, 2024 Anika Henry SEED SPECIALIST-C Primary Care Provider Active Start: July 20, 2024 Team Status: Inactive Member Role Status Dates Anika Henry SEED SPECIALIST-C Primary Care Provider Active Start: July 27, 2024 End: July 27, 2024 Rin Ramirez MD Attending Provider Active Star t: July 27, 2024 End: July 27, 2024 Team Status: Active Member Role Status Dates Rin Ramirez MD Attending Provider Active Star t: May 25, 2024 Anika Henry SEED SPECIALIST-C Primary Care Provider Active Start: May 25, 2024 Team Status: Inactive Member Role Status Dates Anika Henry SEED SPECIALIST-C Primary Care Provider Active Start: June 03, 2024 End: June 03, 2024 Becca Rodriguez MD Attending Provider Active Start : June 03, 2024 End: June 03, 2024 Team Status: Active Member Role Status Dates Anika Henry SEED SPECIALIST-C Primary Care Provider Active Start: June 10, 2024 Becca Rodriguez MD Attending Provider Active Start : June 10, 2024 Team Status: Inactive Member Role Status Dates Anika Henry SEED SPECIALIST-C Primary Care Provider Active Start: March 23, 2024 End: March 23, 2024 Rin Ramirez MD Attending Provider Active Star t: March 23, 2024 End: March 23, 2024 Team Status: Inactive Member Role Status Dates Anika Henry SEED SPECIALIST-C Primary Care Provider Active Start: March 30, 2024 End: March 30, 2024 Rin Ramirez MD Attending Provider Active Star t: March 30, 2024 End: March 30, 2024 Team Status: Active Member Role Status Dates Rin Ramirez MD Attending Provider Active Star t: April 13, 2024 Anika Henry SEED SPECIALIST-C Primary Care Provider Active Start: April 13, 2024 Team Status: Inactive Member Role Status Dates Anika Henry , SEED SPECIALIST-C Primary Care Provider Active Start: April 20, 2024 End: April 20, 2024 Rin Ramirez MD Attending Provider Active Star t: April 20, 2024 End: April 20, 2024 Team Status: Active Member Role Status Dates Anika Henry SEED SPECIALIST-C Primary Care Provider Active Start: April 28, 2024 Rin Ramirez MD Attending Provider Active Star t: April 28, 2024 Team Status: Inactive Member Role Status Dates Anika Henry , SEED SPECIALIST-C Primary Care Provider Active Start: May 04, 2024 End: May 04, 2024 Rin Ramirez MD Attending Provider Active Star t: May 04, 2024 End: May 04, 2024 Team Status: Active Member Role Status Dates Rin Ramirez MD Attending Provider Active Star t: January 05, 2024 Anika Henry SEED SPECIALIST-C Primary Care Provider Active Start: January 05, 2024 Team Status: Inactive Member Role Status Dates Anika Henry , SEED SPECIALIST-C Primary Care Provider Active Start: January 13, 2024 End: January 13, 2024 Rin Ramirez MD Attending Provider Active Star t: January 13, 2024 End: January 13, 2024 Team Status: Active Member Role Status Andrés Rodriguez MD Attending Provider Active Start : January 20, 2024 Anika Henry , SEED SPECIALIST-C Primary Care Provider Active Start: January 20, 2024 Team Status: Active Member Role Status Dates Rin Ramirez MD Attending Provider Active Star t: January 23, 2024 Anika Henry SEED SPECIALIST-C Primary Care Provider Active Start: January 23, 2024 Team Status: Inactive Member Role Status Dates Anika Henry SEED SPECIALIST-C Primary Care Provider Active Start: January 27, 2024 End: January 27, 2024 Rin Ramirez MD Attending Provider Active Star t: January 27, 2024 End: January 27, 2024 Team Status: Active Member Role Status Dates Rin Ramirez MD Attending Provider Active Star t: February 03, 2024 Anika Henry SEED SPECIALIST-C Primary Care Provider Active Start: February 03, 2024 Team Status: Inactive Member Role Status Dates Anika Henry SEED SPECIALIST-C Primary Care Provider Active Start: February 10, 2024 End: February 10, 2024 Rin Ramirez MD Attending Provider Active Star t: February 10, 2024 End: February 10, 2024 Team Status: Active Member Role Status Dates Rin Ramirez MD Attending Provider Active Star t: February 23, 2024 Anika Henry SEED SPECIALIST-C Primary Care Provider Active Start: February 23, 2024 Team Status: Inactive Member Role Status Dates Anika Henry SEED SPECIALIST-C Primary Care Provider Active Start: March 02, 2024 End: March 02, 2024 Rin Ramirez MD Attending Provider Active Star t: March 02, 2024 End: March 02, 2024 Team Status: Active Member Role Status Dates Anika Henry SEED SPECIALIST-C Primary Care Provider Active Start: March 17, 2024 Rin Ramirez MD Attending Provider Active Star t: March 17, 2024 Team Status: Inactive Member Role Status Dates Anika Henry SEED SPECIALIST-C Primary Care Provider Active Start: December 08, 2023 End: December 08, 2023 Chester Lin APRN Attending Provider Active Start: December 08, 2023 End: December 08, 2023 Team Status: Inactive Member Role Status Dates Anika Henry SEED SPECIALIST-C Primary Care Provider Active Start: December 11, 2023 End: December 11, 2023 Becca Rodriguez MD Attending Provider Active Start : December 11, 2023 End: December 11, 2023 Team Status: Inactive Member Role Status Dates Anika Henry SEED SPECIALIST-C Primary Care Provider Active Start: December 30, 2023 End: December 30, 2023 Rin Ramirez MD Attending Provider Active Star t: December 30, 2023 End: December 30, 2023 Team Status: Active Member Role Status Dates Anika Henry SEED SPECIALIST-C Primary Care Provider Active Start: October 30, 2023 Rin Ramirez MD Attending Provider Active Star t: October 30, 2023 Team Status: Inactive Member Role Status Dates Anika Henry SEED SPECIALIST-C Primary Care Provider Active Start: November 05, 2023 End: November 05, 2023 Rin Ramirez MD Attending Provider Active Star t: November 05, 2023 End: November 05, 2023 Team Status: Active Member Role Status Dates Anika Henry SEED SPECIALIST-C Primary Care Provider Active Start: November 13, 2023 Rin Ramirez MD Attending Provider Active Star t: November 13, 2023 Team Status: Inactive Member Role Status Dates Anika Henry SEED SPECIALIST-C Primary Care Provider Active Start: November 18, 2023 End: November 18, 2023 Rin Ramirez MD Attending Provider Active Star t: November 18, 2023 End: November 18, 2023 Team Status: Active Member Role Status Dates Rin Ramirez MD Attending Provider Active Star t: November 27, 2023 Anika Henry SEED SPECIALIST-C Primary Care Provider Active Start: November 27, 2023 Team Status: Inactive Member Role Status Dates Anika Henry SEED SPECIALIST-C Primary Care Provider Active Start: October 15, 2023 End: October 15, 2023 Rin Ramirez MD Attending Provider Active Star t: October 15, 2023 End: October 15, 2023 Team Status: Active Member Role Status Dates Anika Henry SEED SPECIALIST-C Primary Care Provider Active Start: September 16, 2023 Rin Ramirez MD Attending Provider Active Star t: September 16, 2023 Team Status: Inactive Member Role Status Dates Anika Henry SEED SPECIALIST-C Primary Care Provider Active Start: September 23, 2023 End: September 23, 2023 Rin Ramirez MD Attending Provider Active Star t: September 23, 2023 End: September 23, 2023 Team Status: Active Member Role Status Andrés Ramirez MD Attending Provider Active Star t: October 07, 2023 Anika Henry SEED SPECIALIST-C Primary Care Provider Active Start: October 07, 2023 Team Status: Inactive Member Role Status Dates Anika Henry SEED SPECIALIST-C Primary Care Provider Active Start: August 13, 2023 End: August 13, 2023 Rin Ramirez MD Attending Provider Active Star t: August 13, 2023 End: August 13, 2023 Team Status: Inactive Member Role Status Dates Anika Henry SEED SPECIALIST-C Primary Care Provider Active Start: August 20, 2023 End: August 20, 2023 Chester Lin APRN Attending Provider Active Start: August 20, 2023 End: August 20, 2023 Team Status: Inactive Member Role Status Dates Anika Henry SEED SPECIALIST-C Primary Care Provider Active Start: September 01, 2023 End: September 01, 2023 Rin Ramirez MD Attending Provider Active Star t: September 01, 2023 End: September 01, 2023 Team Status: Inactive Member Role Status Dates Anika Henry SEED SPECIALIST-C Primary Care Provider Active Start: September 09, [...] April 22, 2023 End: April 22, 2023 Sr. Manager Marketing Relationship Specialty Start Date End Date Cole Henry MD [address] [place], [place] [id number] PCP - General Family Medicine 11/20/22 Sr. Manager Marketing Relationship Specialty Start Date End Date Cole Henry MD [address] [place] [address] PCP - General Family Medicine 11/20/22 Sr. Manager Marketing Relationship Specialty Start Date End Date ElaineAnika hairston APRN-CNP [address] [facility], [place] [address] PCP - General Family Medicine 04/29/23 Sr. Manager Marketing Relationship Specialty Start Date End Date Anika Henry APRN-CNP [address] [facility], [place] [address] PCP - General Family Medicine 04/29/23 Sr. Manager Marketing Relationship Specialty Start Date End Date Anika Henry APRN-CNP [address] [facility], [place] [address] PCP - General Family Medicine 04/29/23 Sr. Manager Marketing Relationship Specialty Start Date End Date Anika Henry APRN-CNP [address] [facility], [place] [address] PCP - General Family Medicine 04/29/23 Sr. Manager Marketing Relationship Specialty Start Date End Date Anika Henry APRN-CNP [address] [facility], [place] [address] PCP - General Family Medicine 04/29/23 Sr. Manager Marketing Relationship Specialty Start Date End Date Cole Henry MD [address] [place], [place] [phone] PCP - General Family Medicine 11/20/22 Sr. Manager Marketing Relationship Specialty Start Date End Date Cole Henry MD [address] [place], [place] [id number] PCP - General Family Medicine 11/20/22 Sr. Manager Marketing Relationship Specialty Start Date End Date Anika Henry APRN-CNP [address] [facility], [place] [address] PCP - General Family Medicine 04/29/23 Sr. Manager Marketing Relationship Specialty Start Date End Date Anika Henry APRN-CNP [address] [facility], [place] [address] PCP - General Family Medicine 04/29/23 Sr. Manager Marketing Relationship Specialty Start Date End Date Anika Henry APRN-CNP [address] [facility], [place] [address] PCP - General Family Medicine 04/29/23 Sr. Manager Marketing Relationship Specialty Start Date End Date Anika Henry APRN-CNP [address] [facility], [place] [address] PCP - General Family Medicine 04/29/23 Sr. Manager Marketing Relationship Specialty Start Date End Date Anika Henry APRN-CNP [address] [facility], [place] [address] PCP - General Family Medicine 04/29/23 Goals [...] BE BASED ON THE PRIMARY CLINICAL RECORDS. [facility] [address] [facility]. provides no warranty or guarantee of the accuracy or completeness of information in this document.
[2024-11-07 14:43] LABS: Bilirubin Urine SMALL (NEGATIVE); Blood Urine LARGE (NEGATIVE); Clarity Urine CLEAR (CLEAR); Glucose Urine UA NEGATIVE (NEGATIVE); Ketones Urine TRACE mg/dL (NEGATIVE); Leukocyte Esterase Urine NEGATIVE (NEGATIVE); Nitrite Urine POSITIVE (NEGATIVE); Protein Urine >=300 mg/dL (NEG/TRACE); pH Urine 6.5 (5.0-9.0)
[2024-11-07 14:45] LABS: Color Urine BROWN (YELLOW)
[2024-11-07] MEDS: ENSURE HP 237 ML LIQUID PO ×2 (14:46→21:58)
[2024-11-07] MEDS: CARVEDILOL 25 MG TABLET 12.5 MG PO ×2 (14:46→21:58)
[2024-11-07] MEDS: HYDRALAZINE HCL 50 MG TABLET PO ×2 (14:46→22:05)
[2024-11-07] MEDS: BUMETANIDE 10 MG in 0.9 % SODIUM CHLORIDE 160 ML 20 MG IV (14:46)
[2024-11-07 14:54] LABS: Bacteria Urine SMALL #/HPF (NONE SEEN); Mucus Urine NONE SEEN (NONE SEEN); RBC Urine 50-75 #/HPF (0-2)
[2024-11-07 14:55] LABS: Cast Seen? NONE SEEN #/LPF (NONE SEEN); Crystals Seen? None Seen #/HPF (None Seen); Squamous Epithelial Cell Urine RARE #/LPF (NONE/RARE); Urine Culture Indicated ALREADY ORDERED
[2024-11-07] MEDS: PANTOPRAZOLE SODIUM 40 MG VIAL IV (17:12)
[2024-11-07] MEDS: ACETAMINOPHEN 300 MG/ 30 MG CODEINE TABLET 1 TAB PO (21:58)
[2024-11-07] MEDS: FERROUS SULFATE 325 MG TABLET PO (21:58)
[2024-11-07] MEDS: BUDESONIDE 0.5 MG/2 ML AMPULE NEB IH (23:44)
[2024-11-08] VITALS (53 sets, daily range): BP systolic 136–176; BP diastolic 67–90; PULSE 73–91; TEMP 36.5–37; O2SAT 79–100
[2024-11-08] MEDS: IPRATROPIUM/ALBUTEROL SULFATE 3 ML AMPUL.NEB IH ×4 (05:02→22:42)
[2024-11-08 05:23] LABS: Hematocrit 30.8 % (36.0-48.0); Mean Corpuscular HGB Conc 29.2 g/dL (29.9-35.2); Mean Corpuscular Hemoglobin 29.5 pg (26.7-34.0); Platelet Count 188 10^3/uL (150-450); Red Blood Count 3.05 10^6/uL (4.20-5.40); Red Cell Distribution Width 14.3 % (11.0-15.0); White Blood Count 6.7 10^3/uL (4.0-11.0)
[2024-11-08 05:38] LABS: Lymphocytes Absolute Manual 0.06 10^3/uL (1.20-3.80); Monocytes Absolute Manual 0.13 10^3/uL (0.30-0.80); Prothrombin Time 37.8 sec (9.0-11.6); Segmented Neut Absolute Manual 6.49 10^3/uL (1.4-6.5)
[2024-11-08 05:39] LABS: Hypochromasia 2+
[2024-11-08 06:00] LABS: Alanine Aminotransferase 13 U/L (14-59); Albumin Globulin Ratio 0.6; Albumin Level 2.2 g/dL (3.4-5.0); Alkaline Phosphatase 86 U/L (46-116); Anion Gap 5.9; Aspartate Amino Transferase 11 U/L (15-37); BUN Creatinine Ratio 19.2; Bilirubin Total 0.2 mg/dL (0.2-1.0); Calcium 8.9 mg/dL (8.5-10.1); Carbon Dioxide 34.6 mmol/L (21.0-32.0); Chloride 105 mmol/L (98-107); Estimated GFR (African America 24 (>=60 mL/min/1.73m^2); Estimated GFR (Non-African Ame 20 (>=60 mL/min/1.73m^2); Glucose 220 mg/dL (74-106); Magnesium 2.2 mg/dL (1.8-2.4); Potassium 4.5 mmol/L (3.5-5.1); Sodium 141 mmol/L (136-145); Total Protein 6.2 g/dL (6.4-8.2); Troponin I High Sensitivity 22.4 pg/mL (4.0-51.3)
[2024-11-08] MEDS: HYDRALAZINE HCL 50 MG TABLET PO ×3 (06:14→23:25)
[2024-11-08] MEDS: LEVOTHYROXINE SODIUM 100 MCG TABLET 125 MCG PO (06:14)
[2024-11-08] MEDS: METHYLPREDNISOLONE SOD SUCC PF 125 MG/2 ML VIAL IVP ×4 (06:14→23:25)
--- NOTE | 2024-11-08 07:50 | P.PN_ITS ---
Progress Note: Subjective Subjective Interval history: Patient still with significant shortness of breath, cough seems to be somewhat better but still present and still unable to produce sputum Exam Constitutional Vital Signs, click to edit/add: Last Vital Signs Temp 97.7 F 11/08/24 07:49 Pulse 80 11/08/24 07:40 Resp 16 11/08/24 07:40 BP 176/88 H 11/08/24 07:37 Pulse Ox 95 11/08/24 07:37 O2 Del Method Nasal Cannula 11/08/24 07:49 O2 Flow Rate 3 11/08/24 07:49 Documenting provider has reviewed patient's vital signs: yes Common normals: apparent distress (Mild conversational dyspnea persisting) Chest Common normals: inspection of chest normal Respiratory Common normals: abnormal respiratory effort (Mild conversational dyspnea) and not clear to ascultation bilaterally Effort & inspection: able to speak in complete sentences Auscultation: rales (Unchanged) and rhonchi (Bilateral lower lobes) Cardio Common normals: regular rate and regular rhythm; murmurs detected (Loud 4/6 murmur systolic) GI Common normals: negative for Normal to inspection, nondistended, normoactive bowel sounds present (Obese) Extremity Common normals: normal to inspection (3+ edema); clubbing, cyanosis or edema Progress Note: Objective Labs Labs: Short CBC 11/07/24 11/08/24 Range/Units 11:19 05:08 WBC 13.0 H 6.7 (4.0-11.0) 10^3/uL Hgb 9.9 L 9.0 L (12.0-16.0) g/dL Hct 33.4 L 30.8 L (36.0-48.0) % Plt Count 192 188 (150-450) 10^3/uL BMP 11/07/24 11/08/24 11:19 05:08 Sodium 147 H 141 Potassium 3.7 4.5 Chloride 107 105 Carbon Dioxide 34.6 H 34.6 H BUN 37.0 H 45.0 H Creatinine 2.13 H 2.34 H Glucose 141 H 220 H Calcium 9.2 8.9 Liver Function 11/07/24 11/08/24 Range/Units 11:19 05:08 Total Bilirubin 0.2 0.2 (0.2-1.0) mg/dL AST 11 L 11 L (15-37) U/L ALT 15 13 L (14-59) U/L Alkaline Phosphatase 95 86 (46-116) U/L Albumin 2.5 L 2.2 L (3.4-5.0) g/dL Urine //25 Range/Units 14:25 Urine Color Brown A (YELLOW) Urine Clarity Clear (CLEAR) Urine pH 6.5 (5.0-9.0) Ur Specific [place] 1.020 (1.005-1.025) Urine Protein >=300 A (NEG/TRACE) mg/dL Urine Glucose (UA) Negative (NEGATIVE) mg/dL Progress Note: A&P Assessment and Plan (1) Asthma exacerbation in COPD: (2) Increased oxygen demand: (3) Lymphedema: (4) Elevated brain natriuretic peptide (BNP) level: (5) CKD (chronic kidney disease): (6) Supratherapeutic INR: (7) Pneumonia: (8) Lumbar stenosis with neurogenic claudication: (9) Hyperglycemia: (10) Iron deficiency anemia: (11) Hypernatremia: (12) Chronic hypoxic respiratory failure: (13) Acute respiratory failure with hypoxia: (14) Moderate protein-calorie malnutrition: (15) Chronic kidney disease, stage III (moderate): (16) Atrial fibrillation: Plan Admission findings: Respiratory distress, uncontrolled hypertension with hypertensive urgency resulting in acute combined congestive heart failure with severe hypoxia complicated by chronic hypoxic respiratory failure with significant leukocytosis although negative lactate would be consistent with sepsis Acute combined congestive heart failure likely related to pneumonia-good but not great response to the Bumex drip, will repeat later today kidney function fairly stable, echocardiogram pending Bilateral pneumonia causing acute exacerbation of COPD-blood blood cell count improved today, maintain current antibiotics Chronic atrial fibrillation-rate controlled and is in normal sinus rhythm currently Coagulopathy secondary to Coumadin toxicity-improved but elevated Iron deficiency anemia-monitor closely secondary to coagulopathy as outlined above Hypernatremia-improved Hyperglycemia-insulin sliding scale Moderate protein calorie malnutrition-diet supplement, add Pro-Stat Morbid obesity-diet management Hypertension-uncontrolled on admission-elevated today, increase Coreg Hypothyroidism-check levels GERD-will use IV Protonix Hypercholesterolemia-continue with home medications Chronic lumbar radiculopathy-his home medications Admission status: Patient with acute hypoxic respiratory failure complicated by chronic hypoxic respiratory failure due to acute combined congestive heart failure complicated by bilateral pneumonia, medically necessary treatment will span 2 midnights. Inpatient status Urinary Catheter Management Urinary Catheter Management Pure Wick: Cath placed during this visit: yes Urethral indwelling: No Insertion date: 11/07/24 Insertion time: 17:02
[2024-11-08] MEDS: NIFEdipine 30 MG TAB.ER.24 60 MG PO (08:35)
[2024-11-08] MEDS: FERROUS SULFATE 325 MG TABLET PO ×2 (08:35→21:37)
[2024-11-08] MEDS: BUMETANIDE 10 MG in 0.9 % SODIUM CHLORIDE 160 ML 20 MG IV (08:35)
[2024-11-08] MEDS: CARVEDILOL 25 MG TABLET PO ×2 (08:35→21:36)
[2024-11-08] MEDS: PROSTAT 15 GM PROTEIN/100 CAL 30 ML LIQUID PACKET PO ×2 (08:35→21:36)
[2024-11-08] MEDS: ACETAMINOPHEN 300 MG/ 30 MG CODEINE TABLET 1 TAB PO ×2 (08:35→21:37)
[2024-11-08] MEDS: CHOLECALCIFEROL (VITAMIN D3) 25 MCG/1,000 UNITS TABLET 50 MCG PO (08:35)
[2024-11-08] MEDS: ENSURE HP 237 ML LIQUID PO ×2 (08:35→21:47)
[2024-11-08] MEDS: INSULIN ASPART 300 UNIT/3 ML PEN SUBQ ×4 (08:39→21:44)
[2024-11-08] MEDS: CALCITRIOL 0.25 MCG CAPSULE PO (08:39)
[2024-11-08] MEDS: AMIODARONE HCL 200 MG TABLET PO (08:40)
[2024-11-08] MEDS: SODIUM ZIRCONIUM CYCLOSILICATE 10 GM POWD.PACK PO (09:11)
--- NOTE | 2024-11-08 10:21 | SWNOTE1 ---
SW and I met with pt in room and pt's at beside. Pt lives at home with her . Pt uses a rollator at home and home oxygen at 2 liters. SW discussed PT/OT recommendation of home health. Pt was agreeable to this and would like [facility]. Referral sent to [facility].
[2024-11-08] MEDS: BUDESONIDE 0.5 MG/2 ML AMPULE NEB IH ×2 (11:04→22:42)
--- NOTE | 2024-11-08 11:21 | SWNOTE1 ---
SW received an email from [facility] and they are able to accept pt.
--- NOTE | 2024-11-08 11:55 | CM.NOTE ---
Important Message From Medicare discussed with pt, pt verbalizes understanding and signs paper. Original given to pt and copy placed in pt's chart.
[2024-11-08] MEDS: PANTOPRAZOLE SODIUM 40 MG VIAL IV (15:16)
[2024-11-08] MEDS: ATORVASTATIN CALCIUM 20 MG TABLET PO (21:36)
[2024-11-09] VITALS (125 sets, daily range): BP systolic 81–162; BP diastolic 44–81; PULSE 46–84; RESP 18; TEMP 36.6–37.1; O2SAT 84–99
--- NOTE | 2024-11-09 01:08 | RESP.RT ---
Pt was on 55% venti mask and Sp02 was ranging from 86%-88%. Pt was placed on BIPAP at this time 01/01 Fi02 60%. Sp02 increased to 94%.
[2024-11-09 02:01] LABS: pH ABG 7.324 (7.350-7.450)
[2024-11-09 02:02] LABS: Allen Test POSITIVE (POSITIVE); BIPAP Pressure 16/8; Base Excess ABG 8.9 mmol/L (-2.0-2.0); Fractionated Inspired Oxygen 60 %; O2 Mode BIPAP; Puncture Site L RADIAL
[2024-11-09 02:04] LABS: ABG PCO2 67.3 mmHg (35.0-45.0)
[2024-11-09 02:05] LABS: PO2 ABG 58.4 mmHg (80.0-100.0)
[2024-11-09] MEDS: IPRATROPIUM/ALBUTEROL SULFATE 3 ML AMPUL.NEB IH ×4 (05:02→19:50)
[2024-11-09 05:37] LABS: Basophils Percent Auto 0.2 % (0.2-2.0); Hematocrit 29.9 % (36.0-48.0); Hemoglobin 9.1 g/dL (12.0-16.0); Immature Granulocytes Abs Auto 0.15 10^3/uL (0.00-0.03); Immature Granulocytes Pct Auto 1.1 % (0.0-0.5); Lymphocytes Absolute Auto 0.3 10^3/uL (1.2-3.8); Mean Corpuscular HGB Conc 30.4 g/dL (29.9-35.2); Mean Corpuscular Hemoglobin 29.8 pg (26.7-34.0); Mean Platelet Volume 9.7 fL (9.5-13.5); Monocytes Absolute Auto 0.1 10^3/uL (0.3-0.8); Monocytes Percent Auto 0.8 % (1.7-12.0); Neutrophils Absolute Auto 12.8 10^3/uL (1.4-6.5); Neutrophils Percent Auto 95.9 % (43.0-75.0); Platelet Count 212 10^3/uL (150-450); Red Blood Count 3.05 10^6/uL (4.20-5.40); White Blood Count 13.3 10^3/uL (4.0-11.0)
[2024-11-09 05:39] LABS: PCO2 VBG 59.3 mmHg (40.0-52.0); pH VBG 7.361 (7.330-7.430)
[2024-11-09 05:54] LABS: INR 2.75; Prothrombin Time 26.4 sec (9.0-11.6)
[2024-11-09] MEDS: LEVOTHYROXINE SODIUM 100 MCG TABLET 125 MCG PO (05:59)
[2024-11-09] MEDS: METHYLPREDNISOLONE SOD SUCC PF 125 MG/2 ML VIAL IVP (05:59)
[2024-11-09] MEDS: HYDRALAZINE HCL 50 MG TABLET PO ×2 (05:59→15:55)
[2024-11-09 06:02] LABS: Alanine Aminotransferase 13 U/L (14-59); Albumin Globulin Ratio 0.6; Albumin Level 2.2 g/dL (3.4-5.0); Alkaline Phosphatase 78 U/L (46-116); Anion Gap 9.7; Aspartate Amino Transferase 10 U/L (15-37); BUN Creatinine Ratio 25.3; Bilirubin Total 0.2 mg/dL (0.2-1.0); Calcium 8.9 mg/dL (8.5-10.1); Carbon Dioxide 35.7 mmol/L (21.0-32.0); Chloride 103 mmol/L (98-107); Estimated GFR (African America 19 (>=60 mL/min/1.73m^2); Estimated GFR (Non-African Ame 15 (>=60 mL/min/1.73m^2); Globulin 3.9 g/dL; Glucose 211 mg/dL (74-106); Potassium 4.4 mmol/L (3.5-5.1); Sodium 144 mmol/L (136-145); Total Protein 6.1 g/dL (6.4-8.2); Troponin I High Sensitivity 31.9 pg/mL (4.0-51.3)
--- NOTE | 2024-11-09 07:51 | CT_ITS ---
The [address] [address] Patient Name: JONATHAN HILL MRN: [id number] date: 1940 Sex: F Assigned Patient Location: [place] Current Patient Location: Accession/Order Number: [id number] Exam Date: 11/09/2024 10:41 Report Date: 11/09/2024 10:50 At the request of: JESSICA RILEY MD Procedure: CT chest wo con CT CHEST WITHOUT CONTRAST CLINICAL DATA: Acute hypoxia. Cough and shortness of breath for the past few weeks. COMPARISON: Chest x-ray 11/07/2024 Spiral images were obtained through the chest without contrast. Images were reviewed using both narrow and wide window settings. This CT exam was performed using one or more following dose reduction techniques: Automated exposure control, adjustment of the mA and/or kV according to patient size, or use of iterative reconstruction technique. The heart is enlarged. There is a trace amount of pericardial fluid. Coronary artery disease is seen. The ascending aorta is ectatic. Atherosclerotic plaque is present the aortic arch, descending aorta and proximal great vessels. There is dilatation of the pulmonary arteries with diameter of the main pulmonary artery measuring almost 6 cm. This may indicate pulmonary hypertension. There is bronchial wall calcification. No enlarged mediastinal lymph nodes are identified. The yusef are more difficult to evaluate without contrast. The bony structures are osteopenic. There are degenerative changes at the spine. There are lower thoracic compression deformities, also seen on recent MRI 10/28/2024. Respiratory motion slightly limits assessment of lung parenchyma. There is consolidation at the left upper lobe, greatest in the suprahilar region and extending along the major fissure toward the lingula. There is also consolidation at the right lower lobe. There is a small amount of pleural fluid on the left and a trace amount of the right. There is some additional atelectasis adjacent to the left pleural effusion as well as at the left apex. There is also mild patchy groundglass density at the right middle and left upper lobes. No pneumothorax is present. Limited cuts through the upper abdomen show moderate food debris within the stomach. There is nodular adrenal limb thickening. CT/CT chest wo con IMPRESSION: CARDIOMEGALY AND TINY PERICARDIAL EFFUSION. PULMONARY ARTERY DILATATION THAT MAY INDICATE PULMONARY HYPERTENSION. ATHEROSCLEROTIC DISEASE. BILATERAL PARENCHYMAL CHANGES INCLUDING AREAS OF CONSOLIDATION. SMALL AMOUNT OF PLEURAL FLUID, GREATER ON THE LEFT. Impression dictated by: Monica Dykes M.D. 11/09/2024 10:50 AM Dictation Location: [place] [address] Electronically authenticated by: [id number] Y Date: 11/09/2024 10:50
--- NOTE | 2024-11-09 07:53 | US_ITS ---
The [address] [address] Patient Name: JONATHAN HILL MRN: [id number] date: 1940 Sex: F Assigned Patient Location: [place] Current Patient Location: [place] Accession/Order Number: [id number] Exam Date: 11/09/2024 09:06 Report Date: 11/09/2024 09:11 At the request of: JESSICA RILEY MD Procedure: US renal BI BILATERAL RENAL AND BLADDER ULTRASOUND CLINICAL HISTORY: ANGELINA COMPARISON: None Estimation of renal size is approximately 11.6 cm on the right and 10.8 cm on the left. No shadowing calculi or hydronephrosis are identified. Left renal cysts are present measuring up to 3.3 cm in diameter. There is no perinephric fluid. The urinary bladder is moderately distended with a volume of 521 mL. No contour or intraluminal abnormalities are seen. US/US renal BI IMPRESSION: NO OBSTRUCTIVE UROPATHY. LEFT RENAL CYSTS. Impression dictated by: Monica Dykes M.D. 11/09/2024 9:11 AM Dictation Location: [place] [address] Electronically authenticated by: [id number] Y Date: 11/09/2024 09:11
--- NOTE | 2024-11-09 08:02 | P.PN_ITS ---
Progress Note: Subjective Subjective Interval history: Patient need to be placed on BiPAP overnight, she does have a history of sleep apnea but has not been wearing her home machine for some time, was able to wean her supplemental oxygen down to 3 L yesterday afternoon I saw patient up in the medical surgical stepdown unit, patient resting fairly comfortably in bed, maybe some mild conversational dyspnea persisting, some cough, no other specific complaints Exam Constitutional Vital Signs, click to edit/add: Last Vital Signs Temp 98.2 F 11/09/24 07:21 Pulse 68 11/09/24 07:21 Resp 20 11/09/24 07:21 BP 162/81 H 11/09/24 07:21 Pulse Ox 94 L 11/09/24 07:21 O2 Del Method BIPAP 11/09/24 07:21 O2 Flow Rate 14 11/09/24 01:05 FiO2 60 11/09/24 07:21 Documenting provider has reviewed patient's vital signs: yes Common normals: apparent distress (Mild conversational dyspnea persisting) Chest Common normals: inspection of chest normal Respiratory Common normals: abnormal respiratory effort (Mild conversational dyspnea -0 unchanged) and not clear to ascultation bilaterally Effort & inspection: able to speak in complete sentences Auscultation: rhonchi (Bilateral lower lobes); no rales (Resolved) Cardio Common normals: regular rate and regular rhythm; murmurs detected (Loud 4/6 murmur systolic) GI Common normals: negative for Normal to inspection, nondistended, normoactive bowel sounds present (Obese) Extremity Common normals: normal to inspection (3+ edema); clubbing, cyanosis or edema Progress Note: Objective Labs Labs: Short CBC 11/09/24 Range/Units 05:31 WBC 13.3 H (4.0-11.0) 10^3/uL Hgb 9.1 L (12.0-16.0) g/dL Hct 29.9 L (36.0-48.0) % Plt Count 212 (150-450) 10^3/uL BMP 11/09/24 05:31 Sodium 144 Potassium 4.4 Chloride 103 Carbon Dioxide 35.7 H BUN 74.0 H Creatinine 2.92 H Glucose 211 H Calcium 8.9 Liver Function 11/09/24 Range/Units 05:31 Total Bilirubin 0.2 (0.2-1.0) mg/dL AST 10 L (15-37) U/L ALT 13 L (14-59) U/L Alkaline Phosphatase 78 (46-116) U/L Albumin 2.2 L (3.4-5.0) g/dL Progress Note: A&P Assessment and Plan (1) Asthma exacerbation in COPD: (2) Increased oxygen demand: (3) Lymphedema: (4) Elevated brain natriuretic peptide (BNP) level: (5) CKD (chronic kidney disease): (6) Supratherapeutic INR: (7) Pneumonia: (8) Lumbar stenosis with neurogenic claudication: (9) Hyperglycemia: (10) Iron deficiency anemia: (11) Hypernatremia: (12) Chronic hypoxic respiratory failure: (13) Acute respiratory failure with hypoxia: (14) Moderate protein-calorie malnutrition: (15) Chronic kidney disease, stage III (moderate): (16) Atrial fibrillation: (17) Severe pulmonary hypertension: Plan Admission findings: Respiratory distress, uncontrolled hypertension with hypertensive urgency resulting in acute combined congestive heart failure with severe hypoxia complicated by chronic hypoxic respiratory failure with significant leukocytosis although negative lactate would be consistent with sepsis Acute combined congestive heart failure likely related to pneumonia-unable to assess urine output, catheter became dislodged unable to create accurate ELIZABETH, edema still persisting in legs but is probably may be more her lymphedema at this point creatinine is elevated above baseline, holding off on further diuresis today Bilateral pneumonia causing acute exacerbation of COPD-white blood cell count elevated, hypoxia worse overnight which may be related to her sleep apnea versus progression of the pneumonia, checking CT scan chest and ABG, low suspicion for pulmonary embolism secondary to coagulopathy on admission, with elevation in wh ite blood cell count and progressive worse hypoxia, change IV antibiotics, Fortaz to cover Pseudomonas, clindamycin to cover anaerobes, patient with penicillin allergy Severe pulmonary hypertension-this is likely contributing to her shortness of breath-start patient on Revatio, consult cardiology Acute UTI-on antibiotics-culture pending Chronic atrial fibrillation-rate controlled and is in normal sinus rhythm currently Coagulopathy secondary to Coumadin toxicity-back to baseline, restart Coumadin 2.5 mg a day Iron deficiency anemia-slightly improved today Hypernatremia-improved Hyperglycemia-insulin sliding scale-maintain this, cutting back on steroids Moderate protein calorie malnutrition-diet supplement, added Pro-Stat Morbid obesity-diet management Hypertension-adjusting off the Norvasc and increasing Coreg to improve blood pressure control and reduce peripheral edema risk, improve pulmonary hy pertension Hypothyroidism-check levels GERD-switching to p.o. Protonix Hypercholesterolemia-continue with home medications Chronic lumbar radiculopathy-his home medications Admission status: Patient with acute hypoxic respiratory failure complicated by chronic hypoxic respiratory failure due to acute combined congestive heart failure complicated by bilateral pneumonia, medically necessary treatment will span 2 midnights. Inpatient status Urinary Catheter Management Urinary Catheter Management Pure Wick: Cath placed during this visit: yes Urethral indwelling: No Insertion date: 11/07/24 Insertion time: 17:02
[2024-11-09] MEDS: INSULIN ASPART 300 UNIT/3 ML PEN SUBQ ×2 (08:07→15:56)
[2024-11-09 08:54] LABS: Allen Test POSITIVE (POSITIVE); Base Excess ABG 8.3 mmol/L (-2.0-2.0); Fractionated Inspired Oxygen 60 %; HCO3 ABG 34.6 mmol/L (22.0-26.0); O2 Mode BIPAP; Oxygen Saturation ABG 90.4 %; PO2 ABG 65.2 mmHg (80.0-100.0); pH ABG 7.309 (7.350-7.450)
[2024-11-09 08:55] LABS: BIPAP Pressure 16/8; Rate 18
[2024-11-09 08:56] LABS: ABG PCO2 68.9 mmHg (35.0-45.0); Puncture Site LR
[2024-11-09] MEDS: FOLIC ACID/VIT B6/VIT B12 TABLET 1 TAB PO (09:08)
[2024-11-09] MEDS: PROSTAT 15 GM PROTEIN/100 CAL 30 ML LIQUID PACKET PO (09:08)
[2024-11-09] MEDS: CETIRIZINE HCL 10 MG TABLET PO (09:09)
[2024-11-09] MEDS: CARVEDILOL 25 MG TABLET PO ×2 (09:09→13:21)
[2024-11-09] MEDS: FERROUS SULFATE 325 MG TABLET PO (09:09)
[2024-11-09] MEDS: ACETAMINOPHEN 300 MG/ 30 MG CODEINE TABLET 1 TAB PO (09:09)
[2024-11-09] MEDS: AMIODARONE HCL 200 MG TABLET PO (09:09)
[2024-11-09] MEDS: CLINDAMYCIN PHOSPHATE/D5W 600 MG/50 ML PREMIX 100 MG IV ×2 (09:10→15:55)
[2024-11-09] MEDS: PANTOPRAZOLE SODIUM 40 MG TABLET.DR PO (09:10)
[2024-11-09] MEDS: CHOLECALCIFEROL (VITAMIN D3) 25 MCG/1,000 UNITS TABLET 50 MCG PO (09:10)
[2024-11-09] MEDS: CEFTAZIDIME 1,000 MG in 0.9 % SODIUM CHLORIDE 50 ML 100 MG IV (09:10)
[2024-11-09] MEDS: ENSURE HP 237 ML LIQUID PO (09:12)
[2024-11-09] MEDS: BUDESONIDE 0.5 MG/2 ML AMPULE NEB IH (11:37)
[2024-11-09] MEDS: SILDENAFIL CITRATE 20 MG TABLET 10 MG PO (13:20)
[2024-11-09] MEDS: METHYLPREDNISOLONE SOD SUCC PF 125 MG/2 ML VIAL 60 MG IVP ×2 (13:20→18:27)
--- NOTE | 2024-11-09 13:39 | PM.PLCN ---
History of Present Illness History of Present Illness Consult date: 11/09/24 Reason for consult: pneumonia Chief complaint: WEAKNESS,COUGHING,PNUEMONIA,HYPOXEMIA,SUPRA INR Narrative: 84yo female presented to [facility] ER with dyspnea. History is somewhat difficult to obtain, chart and nursing were reviewed/consulted to obtain a better picture. Patient has asthma and pulmonary hypertension, follows with Dr. Camacho @ [facility] Pulmonology. Patient was not feeling well for a while, perhaps a month. Nursing said that all the family did was turn up the O2. Upon arrival, there was a leukocytosis (13k) and patient was in distress. SpO2 was down to 83% despite her baseline O2 flow of 2L/min. She was admitted and treated for pneumonia. Over the past day, patient has become more confused. SpO2 dropped overnight to the point 6L/min was insufficient; she was placed on a BiPAP 16/8 with FiO2 60%. Patient admitted she has a history of KELECHI but is non-compliant with PAP therapy. Initial ABG this AM noted pH 7.32 with pCO2 67.3. Subsequent ABG noted pH 7.31 with pCO2 68.9. Pulmonology was evaluated. Patient was laying in bed with the BiPAP on. Did not appear to be in significant respiratory distress, though she seemed slightly uncomfortable. I noticed that the patient had her upper and lower dentures in her mouth - I instructed nursing to remove them while the patient was on the BiPAP. It was difficult to understand the patient, but she did not seem confused to me. She admits to some difficulty breathing. Has some pleuritic pain in RLL area. Legs are swollen and wrapped. She is a full code. Review of Systems ROS Status of ROS 10 or more systems reviewed and unremarkable except as noted in history and below [facility] Social History Highest level of school completed/degree received: 10th grade Little interest or pleasure in doing things: not at all Feeling down, depressed, or hopeless: not at all Meds Home Medications and Allergies Home Medications ?Medication ?Instructions ?Recorded ?Confirmed ?Type albuterol sulfate 90 mcg/actuation 2 puff inhalation Q4H PRN 05/08/23 11/07/24 History aerosol inhaler shortness of breath or wheezing bumetanide 1 mg tablet 1 mg PO BID 12/21/23 06/22/25 History carvedilol 25 mg tablet 12.5 mg PO Q12H 05/08/23 11/07/24 History cholecalciferol (vitamin D3) 50 2,000 unit PO DAILY 05/08/23 11/07/24 History mcg (2,000 unit) capsule hydralazine 50 mg tablet 50 mg PO Q8H 05/08/23 11/07/24 History ipratropium 0.5 mg-albuterol 3 mg 1.5 ml inhalation Q4H PRN 05/08/23 11/07/24 History (2.5 mg base)/3 mL nebulization shortness of breath or wheezing soln levothyroxine 100 mcg tablet 125 mcg PO DAILY 05/08/23 11/07/24 History (Euthyrox) loratadine 10 mg capsule 10 mg PO DAILY PRN allergy symptoms 05/08/23 11/07/24 History nifedipine 60 mg tablet,extended 60 mg PO DAILY 05/08/23 11/07/24 History release 24 hr omeprazole 20 mg capsule,delayed 20 mg PO DAILY 05/08/23 11/07/24 History release rosuvastatin 5 mg tablet 5 mg PO DAILY 05/08/23 11/07/24 History amiodarone 200 mg tablet 200 mg PO DAILY 10/05/24 11/07/24 History ferrous sulfate 325 mg (65 mg 325 mg PO BID 10/05/24 11/07/24 History iron) tablet,delayed release semaglutide 0.25 mg or 0.5 mg (2 0.25 mg subcut QWEEK 10/05/24 11/07/24 History mg/3 mL) subcutaneous pen injector (Ozempic) warfarin 2.5 mg tablet 2.5 mg PO .COMPLEX 10/05/24 11/07/24 History calcitriol 0.25 mcg capsule 0.25 mcg PO .COMPLEX 11/07/24 11/07/24 History fluticasone 250 mcg-salmeterol 50 1 inh inhalation Q12H 11/07/24 11/07/24 History mcg/dose blistr powdr for inhalation sodium zirconium cyclosilicate 10 10 g PO .COMPLEX 11/07/24 11/07/24 History gram oral powder packet (Lokelma) vitamin B complex 1 cap PO DAILY 11/07/24 11/07/24 History Allergies Allergy/AdvReac Type Severity Reaction Status Date / Time Penicillins Allergy Severe Unknown Verified 11/07/24 10:57 Sulfa (Sulfonamide Allergy Severe Unknown Verified 11/07/24 10:57 Antibiotics) sulfamethoxazole (From Allergy Severe Unknown Verified 11/07/24 10:57 Bactrim) trimethoprim (From Bactrim) Allergy Severe Unknown Verified 11/07/24 10:57 Exam Narrative Exam Narrative: Constitutional: Laying in bed. Does not appear to be in acute respiratory distress. Chronically ill appearing. HEENT: Wearing BiPAP mask. Upper and lower dentures were removed. Lungs: Diminished breath sounds, some scattered crackles, diminished in MARGARET and RLL areas. Heart: RRR Abdomen: Obese, soft Extremities: BLE edema, legs wrapped Neuro: No fasciculations Psych: Did not appear confused to me Constitutional Vital Signs, click to edit/add: Last Vital Signs Temp 98.2 F 11/09/24 07:21 Pulse 57 L 11/09/24 12:00 Resp 10 L 11/09/24 12:00 BP 162/81 H 11/09/24 07:21 Pulse Ox 96 11/09/24 12:00 O2 Del Method BIPAP 11/09/24 11:39 O2 Flow Rate 14 11/09/24 01:05 FiO2 60 11/09/24 11:42 Results Laboratory Findings ABG, PT/INR, D-dimer: ABG ABG pH 7.309 (7.350-7.450) L 11/09/24 08:45 ABG pCO2 68.9 mmHg (35.0-45.0) H* 11/09/24 08:45 ABG pO2 65.2 mmHg (80.0-100.0) L 11/09/24 08:45 ABG O2 Saturation 90.4 % 11/09/24 08:45 PT/INR, D-dimer PT 26.4 sec (9.0-11.6) H 11/09/24 05:31 INR 2.75 11/09/24 05:31 Abnormal lab findings: Abnormal Labs 11/07/24 11/07/24 11/08/24 11:19 14:25 05:08 WBC 13.0 H RBC 3.31 L 3.05 L Hgb 9.9 L 9.0 L Hct 33.4 L 30.8 L MCV 100.9 H 101.0 H MCHC 29.6 L 29.2 L Neut % (Auto) 92.0 H Lymph % (Auto) 3.5 L [place] % (Auto) Eos % (Auto) 0.6 L Neut # (Auto) 11.9 H Lymph # (Auto) 0.5 L [place] # (Auto) Abs Immat Gran (auto) 0.11 H Seg Neuts % (Manual) 97.0 H Lymphocytes % (Manual) 1.0 L Eosinophils % (Manual) 0.0 L Basophils % (Manual) 0.0 L Imm/Tot Granulo (auto) 0.8 H Lymphocytes # (Manual) 0.06 L Monocytes # (Manual) 0.13 L PT 46.2 H* 37.8 H INR 5.12 H* ABG pH ABG pCO2 ABG pO2 ABG HCO3 ABG Base Excess VBG pCO2 Sodium 147 H Carbon Dioxide 34.6 H 34.6 H BUN 37.0 H 45.0 H Creatinine 2.13 H 2.34 H Est GFR ( Amer) 27 L 24 L Est GFR (Non-Af Amer) 22 L 20 L Glucose 141 H 220 H AST 11 L 11 L ALT 13 L NT-Pro-B Natriuret Pep 9883.0 H* 48757.0 H* Total Protein 6.2 L Albumin 2.5 L 2.2 L Urine Color Brown A Urine Protein >=300 A Urine Ketones Trace A Urine Occult Blood Large A Urine Nitrite Positive A Urine Bilirubin Small A Urine RBC 50-75 A Urine WBC 2-5 A Urine Bacteria Small A Urine Yeast Seen A 11/09/24 11/09/24 11/09/24 01:52 05:31 08:45 WBC 13.3 H RBC 3.05 L Hgb 9.1 L Hct 29.9 L MCV MCHC Neut % (Auto) 95.9 H Lymph % (Auto) 2.0 L [place] % (Auto) 0.8 L Eos % (Auto) 0.0 L Neut # (Auto) 12.8 H Lymph # (Auto) 0.3 L [place] # (Auto) 0.1 L Abs Immat Gran (auto) 0.15 H Seg Neuts % (Manual) Lymphocytes % (Manual) Eosinophils % (Manual) Basophils % (Manual) Imm/Tot Granulo (auto) 1.1 H Lymphocytes # (Manual) Monocytes # (Manual) PT 26.4 H INR ABG pH 7.324 L 7.309 L ABG pCO2 67.3 H* 68.9 H* ABG pO2 58.4 L* 65.2 L ABG HCO3 35.0 H 34.6 H ABG Base Excess 8.9 H 8.3 H VBG pCO2 59.3 H Sodium Carbon Dioxide 35.7 H BUN 74.0 H Creatinine 2.92 H Est GFR ( Amer) 19 L Est GFR (Non-Af Amer) 15 L Glucose 211 H AST 10 L ALT 13 L NT-Pro-B Natriuret Pep 94492.0 H* Total Protein 6.1 L Albumin 2.2 L Urine Color Urine Protein Urine Ketones Urine Occult Blood Urine Nitrite Urine Bilirubin Urine RBC Urine WBC Urine Bacteria Urine Yeast Assessment and Plan Assessment and Plan (1) Pneumonia: Assessment and Plan: 1. Pneumonia, bilateral (MARGARET and RLL). Reviewed CT - significant RLL consolidation with what appears to be mucus plugging along with collapse of part of the MARGARET. Currently on antibiotics clindamycin and ceftazidime. Pulmonary toilet recommended. May require bronchoscopy if respiratory status deteriorates. 2. Wbkbz-pa-bwymnmf hypoxic and hypercapnic respiratory failure. Baseline O2 2L/min and strongly suspect elevated pCO2 at baseline given frequent BMP with elevated HCO3-. Hypercapnia d/t multiple underlying issues such as presumptive OHS, COPD and acute d/t V/Q mismatch from pneumonia. Goal SpO2 88-92% to prevent hyperoxic-induced hypercapnia. 3. 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 Follows with Dr. Camacho @ [facility] Pulmonology. 4. Pulmonary hypertension. Echocardiogram 11/07/2024 noted RVSP [address] chest 11/09/2024 had the largest pulmonary artery I have seen at 5.9cm. Underlying cause is unclear...no apparent pulmonary emboli at this time - is on chronic warfarin (unknown if INR has been stable or not). 5. Acute on chronic CHF - diastolic. EF on echo 55-60%. Had diuresis but creatinine worsened. 6. CKD. Baseline appears to be stage IV. Worsening renal function, likely d/t diuresis. Qualifiers: Laterality: bilateral Lung location: unspecified part of lung Pneumonia type: due to unspecified organism Qualified Code(s): J18.9 - Pneumonia, unspecified organism Plan Patient's respiratory status deteriorated throughout the day. She failed BiPAP with subsequent ABG trending worse (decreased pH, increaed pCO2). She was changed to Vapotherm with some improvement, but she still had increased work of breathing. With her multiple organ issues, decision was made to transfer to [facility] [place] [place] for a higher level of care. There was concern regarding stability of her airway with transportation - BiPAP and Vapotherm are not available during transport, and CPAP was deemed insufficient. Family meeting along with patient discussed pros and cons of elective intubation for transportation. All voiced agreement, including patient, to proceed with elective intubation. Patient was intubated with a 7.5 ETT (see report). Propofol gtt initiated, with Levophed on stand-by to maintain MAP >65. Patient at this point is critically ill requiring intensive care unit monitoring, which is now unavailable at [facility]. 40 minutes critical care time, excluding intubation, spent on this patient.
--- NOTE | 2024-11-09 14:19 | XR_ITS ---
The [address] [address] Patient Name: JONATHAN HILL MRN: [id number] date: 1940 Sex: F Assigned Patient Location: MS Current Patient Location: [place] Accession/Order Number: [id number] Exam Date: 11/09/2024 14:54 Report Date: 11/09/2024 14:56 At the request of: JESSICA RILEY MD Procedure: XR chest 1V XR chest 1V 11/09/2024 2:43 PM SIGNS AND SYMPTOMS: ^PICC ^Y PROTOCOL: Frontal radiograph the chest COMPARISON: 11/09/2024 FINDINGS: The trachea is midline. There is a right-sided PICC line. The tip in the expected location of the right atrium. This could be retracted 3.5 cm for better placement. There is cardiomegaly. Perihilar vascular prominence is noted. The lung parenchyma is clear. The bony thorax is intact. XR/XR chest 1V IMPRESSION: There is a right-sided PICC line. The tip in the expected location of the right atrium. This could be retracted 3.5 cm for better placement. Findings suggest congestive heart failure. Impression dictated by: Christiano Lozada M.D. 11/09/2024 2:56 PM Dictation Location: [place] [address] Electronically authenticated by: [id number] Y Date: 11/09/2024 14:56
[2024-11-09 14:35] LABS: PO2 ABG 69.5 mmHg (80.0-100.0)
[2024-11-09 14:36] LABS: Allen Test POSITIVE (POSITIVE); BIPAP Pressure 15/5; Base Excess ABG 7.3 mmol/L (-2.0-2.0); Fractionated Inspired Oxygen 50 %; HCO3 ABG 34.1 mmol/L (22.0-26.0); O2 Mode BIPAP; Oxygen Saturation ABG 91.4 %; Puncture Site L RAD; Rate 18; Vent Mode S/T
[2024-11-09 14:37] LABS: Pressure Support 8
[2024-11-09 14:38] LABS: ABG PCO2 73.4 mmHg (35.0-45.0); pH ABG 7.275 (7.350-7.450)
--- NOTE | 2024-11-09 15:15 | PM.IMPN1 ---
Progress Note: A&P Assessment and Plan (1) Pneumonia: Qualifiers: Laterality: bilateral Lung location: unspecified part of lung Pneumonia type: due to unspecified organism Qualified Code(s): J18.9 - Pneumonia, unspecified organism Internal Medicine - PN: Subj Subjective Interval history: I was asked to see the pt by her primary hospitalist, as she was not doing well. Pt has been on BIPAP with worsening hypercapnic respiratory failure. During my encounter, she was awake, oriented x3, does have tachypnea and increased work of breathing, but is oriented x3, able to secure her airways. She was just seen by pulmonology, and they recommended Vapotherm I believe pt will need to be transferred to ICU at [facility] for further management and close monitoring of her airways, she is at a low threshold for intubation. I initiated the transfer process as well. Awaiting call back from hospitalist business applications developer in [facility]. ADDENDUM: 3:29 pm, pt was accepted by Dr. Payne at [facility], I went in to see the pt in the room, she was doing fairly okay but lethargic which has been going on for the whole day, I discussed with her the options, and mentioned that she may need to be intubated prior to be transferred if she gets worse or does not improve. There is an ABG scheduled for 4 pm, which will help us decide. She mentioned that she is okay with intubation if needed. I am reaching out to pulmonology on the case Dr. Jenkins, to further discuss the plan of management. Exam Constitutional Vital Signs, click to edit/add: Last Vital Signs Temp 98.2 F 11/09/24 07:21 Pulse 64 11/09/24 14:00 Resp 10 L 11/09/24 12:00 BP 162/81 H 11/09/24 07:21 Pulse Ox 91 L 11/09/24 14:00 O2 Del Method BIPAP 11/09/24 11:39 O2 Flow Rate 14 11/09/24 01:05 FiO2 60 11/09/24 11:42 Internal Medicine - PN: Obj Da Labs Labs: Laboratory Results - last 24 hr 11/09/24 11/09/24 11/09/24 01:52 05:31 08:45 WBC 13.3 H RBC 3.05 L Hgb 9.1 L Hct 29.9 L MCV 98.0 MCH 29.8 MCHC 30.4 RDW 14.0 Plt Count 212 MPV 9.7 Neut % (Auto) 95.9 H Lymph % (Auto) 2.0 L [place] % (Auto) 0.8 L Eos % (Auto) 0.0 L Baso % (Auto) 0.2 Neut # (Auto) 12.8 H Lymph # (Auto) 0.3 L [place] # (Auto) 0.1 L Eos # (Auto) 0.0 Baso # (Auto) 0.0 Abs Immat Gran (auto) 0.15 H Imm/Tot Granulo (auto) 1.1 H PT 26.4 H INR 2.75 Puncture Site L radial Lr ABG pH 7.324 L 7.309 L ABG pCO2 67.3 H* 68.9 H* ABG pO2 58.4 L* 65.2 L ABG HCO3 35.0 H 34.6 H ABG O2 Saturation 88.0 90.4 ABG Base Excess 8.9 H 8.3 H Parag Test Positive Positive VBG pH 7.361 VBG pCO2 59.3 H Vent Mode FiO2 60 60 Pressure Support BiPAP 01/01 01/01 Sodium 144 Potassium 4.4 Chloride 103 Carbon Dioxide 35.7 H Anion Gap 9.7 BUN 74.0 H Creatinine 2.92 H Est GFR ( Amer) 19 L Est GFR (Non-Af Amer) 15 L BUN/Creatinine Ratio 25.3 Glucose 211 H Calcium 8.9 Total Bilirubin 0.2 AST 10 L ALT 13 L Alkaline Phosphatase 78 Troponin I High Sens 31.9 NT-Pro-B Natriuret Pep 85296.0 H* Total Protein 6.1 L Albumin 2.2 L Globulin 3.9 Albumin/Globulin Ratio 0.6 11/09/24 14:25 WBC RBC Hgb Hct MCV MCH MCHC RDW Plt Count MPV Neut % (Auto) Lymph % (Auto) [place] % (Auto) Eos % (Auto) Baso % (Auto) Neut # (Auto) Lymph # (Auto) [place] # (Auto) Eos # (Auto) Baso # (Auto) Abs Immat Gran (auto) Imm/Tot Granulo (auto) PT INR Puncture Site L rad ABG pH 7.275 L* ABG pCO2 73.4 H* ABG pO2 69.5 L ABG HCO3 34.1 H ABG O2 Saturation 91.4 ABG Base Excess 7.3 H Parag Test Positive VBG pH VBG pCO2 Vent Mode S/t FiO2 50 Pressure Support 8 BiPAP 15/5 Sodium Potassium Chloride Carbon Dioxide Anion Gap BUN Creatinine Est GFR ( Amer) Est GFR (Non-Af Amer) BUN/Creatinine Ratio Glucose Calcium Total Bilirubin AST ALT Alkaline Phosphatase Troponin I High Sens NT-Pro-B Natriuret Pep Total Protein Albumin Globulin Albumin/Globulin Ratio Urinary Catheter Management Urinary Catheter Management Pure Wick: Cath placed during this visit: yes Urethral indwelling: No Insertion date: 11/07/24 Insertion time: 17:02
--- NOTE | 2024-11-09 15:23 | XR_ITS ---
The [address] [address] Patient Name: JONATHAN HILL MRN: [id number] date: 1940 Sex: F Assigned Patient Location: MS Current Patient Location: MS Accession/Order Number: [id number] Exam Date: 11/09/2024 15:38 Report Date: 11/09/2024 15:39 At the request of: JESSICA RILEY MD Procedure: XR chest 1V Single view chest: CLINICAL HISTORY: Picc retraction COMPARISON: Chest performed earlier today FINDINGS: Right-sided PICC line is identified tip in the SVC. CHF findings are unchanged. XR/XR chest 1V IMPRESSION: RIGHT-SIDED PICC LINE TIP IN THE SVC. CHF FINDINGS. Impression dictated by: Kj Urias Jr. DAzarOAzar 11/09/2024 3:39 PM Dictation Location: [place] [address] Electronically authenticated by: [id number] Y Date: 11/09/2024 15:39
[2024-11-09 16:16] LABS: Allen Test POSITIVE (POSITIVE); Base Excess ABG 7.5 mmol/L (-2.0-2.0); HCO3 ABG 33.7 mmol/L (22.0-26.0); Liters per Minute 40; O2 Mode VAPOTHERM; Oxygen Saturation ABG 89.1 %; pH ABG 7.311 (7.350-7.450)
[2024-11-09 16:17] LABS: Fractionated Inspired Oxygen 60 %; Puncture Site RR
[2024-11-09 16:18] LABS: ABG PCO2 66.8 mmHg (35.0-45.0)
[2024-11-09 16:20] LABS: PO2 ABG 59.6 mmHg (80.0-100.0)
--- NOTE | 2024-11-09 16:33 | PC.NURSE ---
Dr Garcia at bedside. Speaks to and daughter
--- NOTE | 2024-11-09 16:35 | PC.NURSE ---
Dr Jenkins at bedside. Speaks with patient and family
--- NOTE | 2024-11-09 17:09 | P.ON_ITS ---
Date of procedure: 11/09/24 Pre-op diagnosis: Acute hypoxic and hypercapnic respiratory failure Post-op diagnosis: same as pre-op Procedure: Cove scope intubation. Patient was having worsening respiratory distress with plans to transfer to [facility]. Respiratory status was unstable for transport via squad - CPAP was deemed insufficient with high risk of emergent intubation during transport. Discussed with family and patient who all voiced in agreement for elective intubation to allow a stable airway for transportation. Patient was in her bed. Non-invasive monitoring was utilized to monitor vital signs. Pre-oxygenation with bag mask was performed. Anesthesia was admin istered first with Versed 4mg and then Etomidate 10mg; no succinylcholine was utilized d/t uncertainty of any hyperkalemia associated with worsening hypercapnia/respiratory acidosis throughout the day. After sedation was achieved, a 7.5 endotracheal tube was inserted through the vocal cords to the 22cm boone at the anterior lip line. The stylet was removed. Capnography turned yellow indicating proper placement in the airway. The endotracheal tube was secured and patient was placed on the ventilator with VT 450mL, RR 16, PEEP 5, and FiO2 to maintain SpO2 >90%. A propofol drip was initiated for sedation. Surgeon: Koffi Jenkins Estimated blood loss (mL): 0 Condition: critical Disposition: other (Transport to [facility] for higher acuity of care)
--- NOTE | 2024-11-09 17:16 | PC.NURSE ---
1645- Dr Jenkins present speaks to family about elective intubation to protect airway during transport. Patient and family agrees to elective intubation. 1655- Versed 4 mg IVP given per Dr Jenkins verbal order 1657- Atomodate 10 mg IVP given 1700-#7.5 ET tube placed per Dr Jenkins. 24 at lip. Bilat breath sounds auscultated. OG inserted and placement varified. PCXR done. See vitals tab
[2024-11-09] MEDS: MIDAZOLAM HCL 2 MG/2 ML VIAL 4 MG IV (17:24)
[2024-11-09] MEDS: ETOMIDATE 20 MG/10 ML VIAL 10 MG IVP (17:24)
--- NOTE | 2024-11-09 17:25 | XR_ITS ---
The [address] [address] Patient Name: JONATHAN HILL MRN: [id number] date: 1940 Sex: F Assigned Patient Location: MS Current Patient Location: MS Accession/Order Number: [id number] Exam Date: 11/09/2024 17:33 Report Date: 11/09/2024 17:35 At the request of: JESSICA RILEY MD Procedure: XR chest 1V Single view chest: CLINICAL HISTORY: Respiratory distress COMPARISON: Chest performed earlier today FINDINGS: Right-sided PICC line is identified tip in the SVC. CHF findings are unchanged. Endotracheal tube at the level of the mid clavicles. Enteric tube left quadrant satisfactory position. Right basilar opacity may be due to overlying pannus versus atelectasis or lobar collapse. No pneumothorax. XR/XR chest 1V IMPRESSION: Satisfactory endotracheal tube and enteric tube positioning. Stable findings of CHF. Impression dictated by: Trino Keita M.D. 11/09/2024 5:35 PM Dictation Location: [place] [address] Electronically authenticated by: [id number] Y Date: 11/09/2024 17:35
[2024-11-09] MEDS: NOREPINEPHRINE BITARTRATE/D5W 4 MG/250 ML PREMIX 15 MG IV (17:47)
[2024-11-09] MEDS: PROPOFOL 1,000 MG/100 ML VIAL 10.26 MG IV (17:48)
[2024-11-09 21:29] LABS: Glucometer 224 mg/dL (74-106)
[2024-11-09] MEDS: PROPOFOL 1,000 MG/100 ML VIAL 7.695 MG IV (22:26)
--- NOTE | 2024-11-09 22:34 | PC.NURSE ---
Stat ABG ordered for 2229 ( not able to obtain) - transport here to take to [facility] - Room [address] Payne. Moved Pt on to transport bed without incident, pt appears to be tolerating the stimulation well. Continues to be on diprovan 20mcg - new bottle started. The levophed @ 2mcg. Transport left @ 2239.
[2024-11-10] MEDS: FOLIC ACID/VIT B6/VIT B12 TABLET 1 TAB PO (08:24)
== END 2024-11-09 22:54 | disposition short-term general hospital (02) | DRG 208 ==
LOC: ER 12:22 → MS 14:14
PROVIDERS: Internal Medicine; Registered Nurse; Admitting Provider Family Medicine; Emergency Provider Emergency Medicine; PCP Nurse Practitioner Family; Visit Provider Family Medicine
DX: J18.9 Pneumonia, unspecified organism (principal); I50.41 Acute combined systolic (congestive) and diastolic (congestive) heart failure; J96.21 Acute and chronic respiratory failure with hypoxia; J96.22 Acute and chronic respiratory failure with hypercapnia; J44.0 Chronic obstructive pulmonary disease with (acute) lower respiratory infection; J44.1 Chronic obstructive pulmonary disease with (acute) exacerbation; J45.901 Unspecified asthma with (acute) exacerbation; E87.0 Hyperosmolality and hypernatremia; E44.0 Moderate protein-calorie malnutrition; I13.0 Hypertensive heart and chronic kidney disease with heart failure and stage 1 through stage 4 chronic kidney disease, or unspecified chronic kidney disease; I48.20 Chronic 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, unspecified; D68.9 Coagulation defect, unspecified; N39.0 Urinary tract infection, site not specified; I27.20 Pulmonary hypertension, unspecified; Z99.81 Dependence on supplemental oxygen; I89.0 Lymphedema, not elsewhere classified; Z79.01 Long term (current) use of anticoagulants; Z79.899 Other long term (current) drug therapy; Z79.890 Hormone replacement therapy; M48.062 Spinal stenosis, lumbar region with neurogenic claudication; R73.9 Hyperglycemia, unspecified; D50.9 Iron deficiency anemia, unspecified; N18.30 Chronic kidney disease, stage 3 unspecified; I16.0 Hypertensive urgency; T45.515A Adverse effect of anticoagulants, initial encounter; E66.01 Morbid (severe) obesity due to excess calories; E03.9 Hypothyroidism, unspecified; K21.9 Gastro-esophageal reflux disease without esophagitis; E78.00 Pure hypercholesterolemia, unspecified; M54.16 Radiculopathy, lumbar region; Z88.0 Allergy status to penicillin; Z68.36 Body mass index [BMI] 36.0-36.9, adult
CPT/HCPCS: 31500; 36415; 36569; 36600; 51702; 71045; 71250; 76775; 80053; 81001; 82800; 82805; 82948; 83605; 83735; 83880; 84436; 84443; 84484; 85007; 85025; 85027; 85610; 87040; 87070; 87086; 87205; 87420; 87804; 87811; 93005; 93306; 94002; 94640; 94660; 94667; 94668; 94761; 94799; 96365; 96366; 96375; 97110; 97161; 97165; 97535; 99285; C1887; J0713; J2250; J2704; J2919

== ENCOUNTER 2024-11-20 19:03 | Emergency (ER) | payer MEDICARE, SELFPAY ==
[2024-11-20] VITALS (28 sets, daily range): BP systolic 106–150; BP diastolic 39–68; PULSE 68–76; TEMP 36.8; O2SAT 82–99; BMI 37.1
--- OUTSIDE RECORDS SUMMARY | 2024-11-20 19:12 | XMS_ITS | CCD ---
Author Organization [facility] Care Team Providers Care Electronic Warfare Operator Name Role Phone Chester Lin Unavailable Rin Ramirez Unavailable Christina Marixa Unavailable Becca Rodriguez Unavailable ELAINE, ANIKA Primary Care Unavailable ELAINE, ANIKA Admitting Unavailable ELAINE, ANIKA Attending Unavailable ELAINE, ANIKA Consulting Unavailable ELAINE, ANIKA Primary Care Unavailable RIN RAMIREZ Attending Unavailable RIN RAMIREZ Consulting Unavailable RIN RAMIREZ Admitting Unavailable Elaine, SPANISHER-C Anika Deepa Primary Care Provider MD Rin Ramirez Attending Provider Cole Henry MD Primary Care Provider [phone] Elaine INTERCELL CONNECTOR PLACER-CANVAS CUTTER HAND, Anika S Primary Care Provider ANITA MCCOY Attending Unavailable ELAINE, ANIKA S Referring Unavailable ELAINE, ANIKA S Primary Care Unavailable ANITA MCCOY Attending Unavailable ELAINE, ANIKA S Referring Unavailable ELAINE, ANIKA S Primary Care Unavailable Cole Henry MD Primary Care Provider [phone] Elaine INTERCELL CONNECTOR PLACER-CANVAS CUTTER HAND, Anika S Primary Care Provider Elaine SPANISHER-C, Anika Deepa Primary Care Provider Rin Ramirez MD Attending Provider Jalil PLUNKETT, Marie Chappell Attending Unavailable SERVICE, JOBST Referring Unavailable ELAINE, [...] ELAINE, ANIKA S Primary Care Unavailable KAITY GUEVARA Attending Unavailable ELAINE, ANIKA S Referring Unavailable ELAINE, ANIKA S Primary Care Unavailable MEDICATION MANAGEMENT, [facility] Referr ing Unavailable ELAINE, ANIKA S Primary Care Unavailable ASHLEIGHJEANETTEKEL R Referring Unavailable ELAINE, ANIKA S Primary [...] Attending Unavailable STALIN, LUCI Harris Attending Unavailable LUCI GANT Attending Unavailable STALIN, LUCI Harris Attending Unavailable Becca Rodriguez MD Attending Provider Quincy Rai MD Attending Provider [phone] Patrick Mari DO Admmakenna Provider Ryne Garcia MD Other Provider Becca Rodriguez MD Other Provider Gabe INTERCELL CONNECTOR PLACER, Lary Other Provider Charly PLUNKETT, Cody Aranda Other Provider Caleb PLUNKETT, Kyle Fulton Other Provider [phone] Stan PLUNKETT, Michele De La Torre Other Provider Aawis DO, Jimmy M Other Provider Alice DO, Koffi Alexis Other Provider [phone] Jeyson PLUNKETT, Noah Other Provider Christy PLUNKETT, Miguel Angel Aranda Other Provider Celina PLUNKETT, Narciso Other Provider Akash PLUNKETT, Pratima Johansen Other Provider Ganesh PLUNKETT, Amber Other Provider Lang PLUNKETT, Kj Other Provider Gus GARCIA, Kim Other Provider Iggy Robles DOct Eleno Other Provider Vamshi Meyer MD Attending Provider Vamshi Meyer MD Other Provider Bhargav Medel MD Other Provider Ryne Garcia MD Attending Provider [phone] Quincy Rai Attending Unavailable Quincy Rai Admitting Unavailable Elaine, Anika Deepa Primary Care Unavailable WilnersRin Attending Unavailable Rin Ramirez Admitting Unavailable Elaine, Anika Deepa Primary Care Unavailable Ryne Garcia Consulting Unavailable Patrick Mari Admitting UnavailBhargav Trevizo Attending Unavailable Becca Rodriguez Consulting Unavailable Amber Andersen Consulting Unavailable Kj Croft Consulting Unavailable Gus, Kim Consulting Unavailable Iggy Robles Jrct L Consulting UnavailVamshi Rosario Consulting Unavaila ble Allergies Allergy Classification Reported Allergen(s) Allergy Type Date of Onset Reaction(s) Facility Angiotensin Converting Enzyme (JANETH) Inhibitors (1 source) Lisinopril Drug Allergy 11-18-19 24 [facility] Penicillins (antibiotic) (1 source) Penicillins Drug Allergy 11-18-19 24 [facility] Sulfonamides (antibiotic) (1 source) Sulfonamides (Antibiotic) Drug Allergy 11-18-19 24 [facility] (20 sources) Lisinopril Drug Allergy 04-22-20 23 [facility] (20 sources) Penicillins (Antibiotic) Propensity to adverse reactions [facility] V[facility]ana Other (20 sources) Sulfonamides (Antibiotic) Propensity to adverse reactions [facility] Other (20 sources) Penicillins; Translations: [PENICILLINS] Drug allergy (disorder) 04-05-20 16 [facility] (1 source) Sulfonamides (Antibiotic) Drug allergy (disorder) 06-04-19 21 [facility] (20 sources) Sulfonamides (Antibiotic); Translations: [SULFA (SULFONAMIDE ANTIBIOTICS)] Allergy to substance 04-05-20 16 [facility] (6 sources) Penicillins Propensity to adverse reactions 11-21-19 23 [facility] (20 sources) Sulfamethoxazole / Trimethoprim; Translations: [SULFAMETHOXAZOLE-T RIMETHOPRIM] Drug Allergy 06-27-19 20 [facility] (6 sources) Sulfonamides (Antibiotic) Propensity to adverse reactions 11-21-19 23 [facility] (20 sources) Angiotensin-convert ing enzyme inhibitor agent; Translations: [JANETH INHIBITORS] Propensity to adverse reactions to drug 05-09-20 23 Other (See Comments) [facility] (20 sources) celecoxib; Translations: [CELECOXIB] Drug Allergy 05-09-20 23 Other (See Comments) [facility] (20 sources) Ibuprofen; Translations: [IBUPROFEN] Drug Allergy 05-09-20 GI Disturbance [facility] (6 sources) Penicillins Propensity to adverse reactions to drug 04-05-20 16 [facility] (10 sources) Penicillins Propensity to adverse reactions to drug 04-05-20 16 [facility] (2 sources) Sulfamethoxazole; Translations: [sulfamethoxazole] Drug Allergy 11-11-19 [facility] (2 sources) Trimethoprim; Translations: [trimethoprim] Drug Allergy 11-11-19 [facility] (1 source) Lisinopril Drug Allergy 10-27-19 [facility] (1 source) Penicillins Drug allergy (disorder) 10-27-19 [facility] Medications Current Medications Medication Drug Class(es) Dates Sig (Normalized) Sig (Original) [id number] 200 actuat albuterol 0.09 mg/actuat metered dose inhaler (20 sources) beta2-Adrenergic Agonist Start: 09-15-2023 take 2 puff(s) by inhalation every six hours as needed for wheezing albuterol (PROVENTIL HFA;VENTOLIN HFA) 90 mcg/actuation inhaler Indications: Shortness of breath , Chronic obstructive pulmonary disease, unspecified COPD type ([facility]) Inhale 2 puffs every 6 (six) hours as needed for wheezing or shortness of breath. 54 g 3 09/15/2023 Active Start: 08-13-2023 take 1 puff(s) by in halation every four hours as needed for wheezing take 2 puff(s) by in halation every [...] mL nebulizer Indications: COPD with acute exacerbation ([facility]) Inhale 3 mL by nebulization every [...] tablet Indications: [place]F (paroxysmal atrial fibrillation) [place] Take 1 tablet (200 mg total) by [...] capsule by mouth in the morning. Active 120 actuat budesonide 0.16 mg/actuat / formoterol fumarate 0.0045 mg/actuat metered dose inhaler (20 sources) Corticosteroid, beta2-Adrenergic Agonist Start: 11-16-2024 take 1 puff(s) by inhalation twice daily take 2 puff(s) by in halation in the morning budesonide-formoterol (Symbicort) 80-4.5 MCG/ACT inhaler Inhale 2 puffs in the morning and 2 puffs before bedtime. Rinse mouth with water after use to reduce aftertaste and incidence of candidiasis. Do not swallow.. Active take 2 puff(s) by in halation twice daily Symbicort 160-4.5 MCG/ACT 2 puffs Inhala tion Twice a day Active take 2 puff(s) by in halation twice daily Symbicort 160-4.5 MCG/ACT 2 puffs Inhala tion Twice a day Active bumetanide 1 mg oral tablet (20 sources) Loop Diuretic Start: 10-10-2024 take 1 tablet by laura th twice daily Start: 11-05-2023 End: 10-10-2024 take [...] 24 hrs for 90 days Active calcitriol 0.26439 mg oral capsule (20 sources) Vitamin D3 Analog Start: 09-09-2023 End: 10-15-2023 take 1 capsule by mouth every week cholecalciferol 0.05 mg oral tablet (20 sources) Vitamin D take 1 tablet by mouth in the morning cholecalcifero l, vitamin D3, 2,000 units tablet Take 1 tablet (2,000 Units total) by mouth in the morning. Active take 1 capsule by mouth in the m orning cholecalciferol (Vitamin D-3) 25 MCG (1000 UT) capsule Take 1,000 Units by mouth in the morning. Active ergocalciferol 0.05 mg oral tablet (20 sources) Provitamin D2 Compound Start: 08-13-2023 Start: 08-13-2023 take 2000 [IU] by mo [facility] once daily Ergocalciferol (Vitamin D2) Active 2000 UNIT PO Daily August 12, 2023 11:00pm take 1 tablet by laura th every twenty-four hours Vitamin D2 50 MCG (1999 UT) 1 tablet Orally Once a day Active Ferric Carboxymaltose (8 sources) Start: 06-17-2024 inject 100 mg intravenously ev lindy week Start: 06-17-2024 inject 100 mg intrav enously [...] sources) Start: 09-14-2024 take 1 tablet by laura twice daily Start: 2024 End: 09-14-2024 take [...] BEDTIME 60 each 10/12/2024 Active Start: 01-27-2024 Start: 01-21-2024 End: 10-12-2024 take 1 puff(s) [...] and 1 puff before bedtime. 60 each 01/21/2024 Active FreeStyle Kusum 2 Sensor - [...] SENSOR kit (19 sources) Start: 10-13-2022 FREESTYLE KUSUM 2 SENSOR [...] 1 tablet by mouth three times daily 3 ml insulin glargine 100 un t/ml [...] Indications: PAF (paroxysmal atrial fibrillation) (CMS-HCC) , [facility] current use of amiodarone take 1 tablet by mouth in the morning 90 tablet 2 01/09/2024 Active Start: 08-13-2023 take 1 capsule by mo uth once daily levothyroxine (S ynthroid, Levoxyl) 100 MCG tablet Take by mouth Daily before meals. Active take 1 tablet by laura th every twenty-four hours Levothyroxine Sodium 100 MCG 1 tablet Orally Once a day Active linezolid 600 mg oral tablet (1 source) Oxazolidinone Antibacterial Start: 11-16-2024 take 1 tablet by mouth twice daily loratadine 10 mg oral capsule (20 sources) Start: 11-10-2024 take 1 capsule by mouth once daily as needed Start: 08-13-2023 End: 06-03-2024 take 1 tablet by mouth once daily Loratadine (Allergy Relief (Loratadine)) 10 mg tablet Discontinued 10 MG PO Daily August 13, 2023 12:00am June 03, 2024 12:37pm losartan potassium 100 mg oral tablet (20 [...] 50 MG tablet Take by mouth. Active NIFEdipine 60 mg osmotic 24 hr extended release oral tablet (20 sources) Dihydropyridine Calcium Channel Zachary Start: 11-16-2024 take 1 tablet by mouth once daily Start: 11-10-2024 Start: 07-19-2024 End: 11-10-2024 take 1 tablet by mouth once daily Nifedipine 90 mg tablet extended release Discontinued 0 .ROUTE .COMPLEX July 19, 2024 12:52pm November 10, 2024 1:20am Take 1 tablet by mouth once daily [...] take 1 capsule by mouth once daily take 1 capsule by mouth twice da lise Omeprazole 20 mg 1 capsule Orally Twice a day Active OneTouch Ultra Blue - (20 sources) OneTouch Ultra B lue - use with one touch meter SQ QID for 90 Active Oxygen (19 sources) oxygen Inhale on ce daily at [...] tablet 3 09/10/2024 Active sodium zirconium cyclosilicate 36289 mg powder for oral suspension (20 sources) [...] 2024 1:00am September 13, 2024 11:00am Start: 10-22-2022 End: 11-05-2023 take 1 tablet by mouth once daily Spironolactone (Aldactone) 25 mg tablet Discontinued 25 MG PO Daily 90 90 September 23, 2023 9:52am November 05, 2023 2:20pm Start: 03-06-2017 take 1 tablet by laura th every twenty-four hours Spironolactone 50 MG 1 tablet Orally daily for 90 day(s) Feb, Active Vitamin B Complex capsule (1 source) Start: 11-10-2024 take 1 capsule by mouth once daily vitamin b12 1 mg extended release oral [...] sources) Vitamin K Antagonist Start: 09-10-2024 take 1-1.5 mg by mouth once daily Start: 05-06-2024 End: 09-10-2024 take 0.5-1 tablets [...] Ochoa-Epbx (Retacrit) 20,000 unit/2 mL solution Discontinued 48489 UNIT SUBCUT 3 Times a week 77.985 90 September 08, 2023 11:00pm September 23, 2023 9:48am Start: 09-09-2023 End: 09-23-2023 Epoetin Ochoa-Epbx (Retacrit) 20,000 unit/2 mL solution Discontinued 72008 UNIT SUBCUT 3 Times a week 77.985 90 September 09, 2023 12:00am September 23, 2023 10:48am Start: 09-09-2023 Epoetin Ochoa-E pbx (Retacrit) 20,000 unit/2 mL solution Active 37572 UNIT SUBCUT 3 Times a week 77.985 [...] and surveillance] Onset: 2 Resolved: 2 Episodic Bacterial infection; unspecified site (5 sources) Bacteremia due to Methicillin resistant Staphylococcus aureus; Translations: [Bacteremia] Onset: 5 11-12-2024 Episodic Cardiac dysrhythmias (20 sources) Paroxysmal atrial fibrillation; Translations: [Paroxysmal atrial fibrillation] Onset: 0 05-10-2024 Chronic Chronic kidney disease (20 sources) Chronic kidney disease stage 1; Translations: [Chronic kidney disease, stage 1] Onset: 5 08-13-2023 Chronic Chronic kidney disease (4 sources) Chronic kidney disease; Translations: [Chronic kidney disease, stage 3 unspecified] Onset: 5 Chronic obstructive pulmonary disease and bronchiectasis (20 sources) Acute exacerbation of chronic obstructive airways disease; Translations: [Chronic obstructive pulmonary disease with (acute) exacerbation] Onset: 0 05-09-2023 Chronic Conduction disorders (19 sources) Sinus [...] electrolyte disorders (20 sources) Hyperkalemia; Translations: [Hyperkalemia] Onset: 5 11-05-2023 Episodic Genitourinary symptoms and ill-defined conditions [...] [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] Onset: 5 Chronic Nutritional deficiencies (20 sources) Vitamin D deficiency; Translations: [Vitamin D deficiency, unspecified] Chronic Nutritional deficiencies (20 sources) Deficiency of other specified B group vitamins; Translations: [Cobalamin deficiency] Onset: 2 Resolved: 2 Episodic Other aftercare (20 sources) Long-term current use of insulin; Translations: [director of bands (current) use of insulin] Episodic Other aftercare (5 sources) [facility] (current) use of insulin; Translations: [[facility] (current) use of insulin] Onset: 2 Resolved: 2 Episodic Other aftercare (2 sources) Drug therapy finding; Translations: [Other halfway (current) drug therapy] 05-10-2024 Episodic Other aftercare (1 source) Encounter for therapeutic drug level monitoring; Translations: [Encounter for therapeutic drug level monitoring] Onset: 5 Episodic Other connective tissue disease (6 sources) Pain in toe; Translations: [Pain in right toe(s)] 03-16-2024 Episodic Other diseases of kidney and ureters (3 sources) Secondary hyperparathyroidism; Translations: [Secondary hyperparathyroidism of [...] metabolic disorders (19 sources) Severe obesity; Translations: [Class 3 severe obesity in adult] Onset: 0 07-26-2019 Chronic Other screening for suspected conditions (not mental disorders or infectious disease) (2 sources) Imaging of thorax abnormal; Translations: [Abnormal findings on diagnostic imaging of other specified body structures] 05-20-2024 Chronic Other skin disorders (3 sources) Dystrophia unguium; 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] 03-16-2024 Episodic Pneumonia (except that caused by tuberculosis or sexually transmitted disease) (3 sources) Bilateral pneumonia; Translations: [Pneumonia, unspecified organism] Onset: 5 11-10-2024 Episodic Residual codes; unclassified (19 sources) Obstructive sleep apnea syndrome; Translations: [Obstructive sleep apnea (adult) (pediatric)] Onset: 0 05-06-2023 Chronic Residual codes; unclassified (20 sources) Edema, unspecified; Translations: [Edema] Onset: 2 Resolved: 2 Episodic Residual codes; unclassified (20 sources) Edema; Translations: [Edema, unspecified] 08-12-2023 Episodic Residual codes; unclassified (1 source) Other specified health status; Translations: [Other specified health status] Onset: 5 Episodic Respiratory failure; insufficiency; arrest (adult) (3 sources) Acute respiratory failure; Translations: [Acute respiratory failure with hypoxia] Onset: 5 11-10-2024 Episodic Spondylosis; intervertebral disc disorders; other back problems (16 sources) Backache; Translations: [Dorsalgia, unspecified] Onset: 5 08-17-2024 Episodic Thyroid disorders (4 sources) Hypothyroidism, unspecified; Translations: [HYPOTHYROIDISM UNSPECIFIED] Onset: 2 Chronic Unclassified (2 sources) Please arrange a follow-up appointment once discharged from SNF. Unclassified (1 source) You have been scheduled for a follow up appointment for the following date and time, please call to reschedule if needed. This appointment will be with Dr. Ramirez. Past or Other Problems Problem Classification Problem Date Documented Date Episodic/Chronic Mood disorders (19 sources) Mood disorders Onset: 05-09-2023 05-09-2023 Other aftercare (1 source) Other seal delivery vehicle officer (current) drug therapy; Translations: [Other seal delivery vehicle officer (current) drug therapy] Onset: 06-16-2024 Episodic Other [...] Test Name Value Interpretation Reference Range Facility Basic Metabolic Panelon Anion gap [Moles/Vol] 11.8 mmol/L Normal 6.0-15.0 [facility] Comment on above: Performed By: #### G LULS #### Point of Care testing , Calcium [Mass/Vol] 8.3 mg/dL Low 8.6-10.3 [facility] Comment on above: Performed By: #### G LULS #### Point of Care testing , Chloride [Moles/Vol] 104 mmol/L Normal 98-107 [facility] Comment on above: Performed By: #### G LULS #### Point of Care testing , CO2 [Moles/Vol] 34.6 mmol/L High 21.0-31.0 [facility] Comment on above: Performed By: #### G LULS #### Point of Care testing , Creatinine [Mass/Vol] 2.63 mg/dL High 0.60-1.20 [facility] Comment on above: Performed By: #### G LULS #### Point of Care testing , Creatinine Clr Calc Pharmacy 17.69 Normal [facility] Comment on above: Performed By: #### G LULS #### Point of Care testing , GFR/1.73 sq M.predicted MDRD (S/P/Bld) [Vol rate/Area] 17.408 mL/min/{1.73_m2} Normal [facility] Comment on above: Performed By: #### G LULS #### Point of Care testing , Glucose [Mass/Vol] 111 mg/dL High 70-100 [facility] Comment on above: Result Comment: [facility] Glucose Reference Range is dependent on time and content of last meal. Glucose of more than 200 mg/dL in a nonstressed, ambulatory subject supports the diagnosis of Diabetes Mellitus. ADA recommended reference range Performed By: #### G LULS #### Point of Care testing , Potassium [Moles/Vol] 4.4 mmol/L Normal 3.5-5.1 [facility] Comment on above: Performed By: #### G LULS #### Point of Care testing , Sodium [Moles/Vol] 146 mmol/L High 136-145 [facility] Comment on above: Performed By: #### G LULS #### Point of Care testing , Urea nitrogen [Mass/Vol] 68 mg/dL High 7-25 [facility] Comment on above: Performed By: #### G LULS #### Point of Care testing , Complete Blood Count Auto Di ffon 11-16-2024 Basophils (Bld) [#/Vol] 0.0 10*3/uL Normal 0.0-0.2 [facility] Comment on above: Result Comment: PERF ORMED BY: [facility] [place] [address] PATHOLOGIST ALLERGIST IMMUNOLOGIST NIKITA RAMOS M.D. Performed By: #### G LULS #### Point of Care testing , Basophils/100 WBC (Bld) 0.4 % Normal . [facility] Comment on above: Performed By: #### G LULS #### Point of Care testing , Eosinophils (Bld) [#/Vol] 0.3 10*3/uL Normal 0.0-0.45 [facility] Comment on above: Performed By: #### G LULS #### Point of Care testing , Eosinophils/100 WBC (Bld) 2.5 % Normal . [facility] Comment on above: Performed By: #### G LULS #### Point of Care testing , Erythrocyte distribution width (RBC) [Ratio] 15.6 % High 11.9-15.3 [facility] Comment on above: Performed By: #### G LULS #### Point of Care testing , Hematocrit (Bld) [Volume fraction] 25.8 % Low 34.0-46.4 [facility] Comment on above: Performed By: #### G LULS #### Point of Care testing , Hemoglobin (Bld) [Mass/Vol] 7.9 g/dL Low 11.8-15.4 [facility] Comment on above: Performed By: #### G LULS #### Point of Care testing , Lymphocytes (Bld) [#/Vol] 0.6 10*3/uL Low 1.00-4.8 [facility] Comment on above: Performed By: #### G LULS #### Point of Care testing , Lymphocytes/100 WBC (Bld) 5.1 % Normal . [facility] Comment on above: Performed By: #### G LULS #### Point of Care testing , MCH (RBC) [Entitic mass] 28.7 pg Normal 24.7-34.3 [facility] Comment on above: Performed By: #### G LULS #### Point of Care testing , MCV (RBC) [Entitic vol] 93.6 fL Normal 80-100 [facility] Comment on above: Performed By: #### G LULS #### Point of Care testing , Mean Corpuscular HGB Conc 30.7 g/dL Low 32.0-35.0 [facility] Comment on above: Performed By: #### G LULS #### Point of Care testing , Monocytes (Bld) [#/Vol] 0.7 10*3/uL Normal 0.0-0.8 [facility] Comment on above: Performed By: #### G LULS #### Point of Care testing , Monocytes/100 WBC (Bld) 6.2 % Normal . [facility] Comment on above: Performed By: #### G LULS #### Point of Care testing , Neutrophils (Bld) [#/Vol] 10.1 10*3/uL High 1.8-7.7 [facility] Comment on above: Performed By: #### G LULS #### Point of Care testing , Neutrophils/100 WBC (Bld) 85.8 % Normal . [facility] Comment on above: Performed By: #### G LULS #### Point of Care testing , NRBC% 0.1 /100{WBC} Normal 0-0.5 [facility] Comment on above: Performed By: #### G LULS #### Point of Care testing , Platelet mean volume (Bld) [Entitic vol] 8.8 fL Normal 6.3-10.7 [facility] Comment on above: Performed By: #### G LULS #### Point of Care testing , Platelets (Bld) [#/Vol] 241 10*3/uL Normal 150-450 [facility] Comment on above: Performed By: #### G LULS #### Point of Care testing , RBC (Bld) [#/Vol] 2.76 10*6/uL Low 3.60-5.00 [facility] Comment on above: Performed By: #### G LULS #### Point of Care testing , WBC (Bld) [#/Vol] 11.8 10*3/uL High 3.8-11.6 [facility] Comment on above: Performed By: #### G LULS #### Point of Care testing , White Blood Count 11.8 [CFU]/mL High 3.8-11.6 [facility] Comment on above: Performed By: #### G LULS #### Point of Care testing , ECG 12 lead ECGon 11-16-2024 ECG 12 lead ECG [facility] Main [place] [address] [place] [id number] Electrocardiograph Report Signed Patient: Margie Martínez MR#: [id number] : 1940 Acct:[id number] Age/Sex: 84 / F ADM Date: 11/09/24 Loc: Room: [address] [place] [address] Type: DIS IN Attending Dr: Bhargav Medel MD Ordering Provider: Patrick Mari DO Date of Service: 11/16/2406/12/499 ECG/ECG 12 lead ECG: dyspnea Copies to: Test Reason : Blood Pressure : */* mmHG Vent. Rate : 81 BPM Atrial Rate : 81 BPM P-R Int : 144 ms QRS Dur : 138 ms QT Int : 422 ms P-R-T Axes : 11 -57 51 degrees QTcB Int : 490 ms Normal sinus rhythm Right bundle branch block Left anterior fascicular block Bifascicular block Minimal voltage criteria for LVH, may be normal variant ( R in aVL ) Abnormal ECG When compared with ECG of 15-Nov-2024 07:34, No significant change was found Confirmed by JUSTICE PL[facility]KETT [facility] ([id number] on 11/16/2024 5:14:02 PM Referred By: Electronically Signed By: ARELY RENDON MD [facility] Transcribed By: MUS Signed By Aerly Rendon MD, FACC 11/16/24 1714 Normal [facility] Glucose Poct Glucometerson 0 11-16-2024 Commemt1 Glu2: Cleaned Meter Normal [facility] Comment on above: Result Comment: PERF ORMED BY: [place] [address] PATHOLOGIST ALLERGIST IMMUNOLOGIST NIKITA RAMOS M.D. Performed By: #### G TINY #### Point of Care testing , Glucose [Mass/Vol] 139 mg/dL Normal [facility] Comment on above: Result Comment: [place] Glucose Reference Range is dependent on time and content of last meal. Glucose of more than 200 mg/dL in a nonstressed, ambulatory subject supports the diagnosis of Diabetes Mellitus. Performed By: #### G LULS #### Point of Care testing , Commemt1 Glu2: Cleaned Meter Normal [facility] Comment on above: Result Comment: PERF ORMED BY: [address] [place] [address] PATHOLOGIST ALLERGIST IMMUNOLOGIST NIKITA RAMOS M.D. Performed By: #### G LULS ####Point of Care testing, Glucose [Mass/Vol] 180 mg/dL Normal [facility] Comment on above: Result Comment: [place] om Glucose Reference Range is dependent on time and content of last meal. Glucose of more than 200 mg/dL in a nonstressed, ambulatory subject supports the diagnosis of Diabetes Mellitus. Performed By: #### G LULS ####Point of Care testing, Glucose [Mass/Vol] 123 mg/dL Normal [facility] Comment on above: Result Comment: [place] om Glucose Reference Range is dependent on time and content of last meal. Glucose of more than 200 mg/dL in a nonstressed, ambulatory subject supports the diagnosis of Diabetes Mellitus. PERFORMED BY: [place] [address] PATHOLOGIST ALLERGIST IMMUNOLOGIST NIKITA RAMOS M.D. Performed By: #### G LULS #### Point of Care testing , Magnesiumon 11-16-2024 Magnesium [Mass/Vol] 2.5 mg/dL Normal 1.9-2.7 [facility] Comment on above: Result Comment: PERF ORMED BY: [address] [place] [address] PATHOLOGIST ALLERGIST IMMUNOLOGIST NIKITA RAMOS M.D. Performed By: #### G LULS #### Point of Care testing , Phosphoruson 11-16-2024 Phosphate [Mass/Vol] 5.6 mg/dL High 2.5-4.5 [facility] Comment on above: Performed By: #### G LULS #### Point of Care testing , Prothrombin Time INRon 11-16 INR Coag (PPP) [Relative time] 1.2 {INR} Normal [facility] Comment on above: Result [...] with mechanical heart valves: 3 - 4.5 PERFORMED BY: [facility] [place] [place] [address] PATHOLOGIST ALLERGIST IMMUNOLOGIST NIKITA RAMOS M.D. Performed By: #### G LULS #### Point of Care testing , PT Coag (PPP) [Time] 13.6 s High 9.0-12.9 [facility] Comment on above: Result Comment: A he matocrit value greater than 55% may lead to inaccurate results in coagulation testing. Patients having hematocrit values >55% require a special collection tube for coagulation studies. Please contact the laboratory at [phone] for redraw instructions. Performed By: #### G LULS #### Point of Care testing , Basic Metabolic Panelon 06-3 0-2024 Anion gap [Moles/Vol] 11.7 mmol/L Normal 6.0-15.0 [facility] Comment on above: Performed By: #### G LULS #### Point of Care testing , Calcium [Mass/Vol] 8.5 mg/dL Low 8.6-10.3 [facility] Comment on above: Performed By: #### G LULS #### Point of Care testing , Chloride [Moles/Vol] 104 mmol/L Normal 98-107 [facility] Comment on above: Performed By: #### G LULS #### Point of Care testing , CO2 [Moles/Vol] 34.3 mmol/L High 21.0-31.0 [facility] Comment on above: Performed By: #### G LULS #### Point of Care testing , Creatinine [Mass/Vol] 2.60 mg/dL High 0.60-1.20 [facility] Comment on above: Performed By: #### G LULS #### Point of Care testing , Creatinine Clr Calc Pharmacy 17.90 Normal [facility] Comment on above: Result Comment: PERF ORMED BY: [facility] [place] [address] PATHOLOGIST ALLERGIST IMMUNOLOGIST NIKITA RAMOS M.D. Performed By: #### G LULS #### Point of Care testing , GFR/1.73 sq M.predicted MDRD (S/P/Bld) [Vol rate/Area] 17.650 mL/min/{1.73_m2} Normal [facility] Comment on above: Performed By: #### G LULS #### Point of Care testing , Glucose [Mass/Vol] 112 mg/dL High 70-100 [facility] Comment on above: Result Comment: [facility] Glucose Reference Range is dependent on time and content of last meal. Glucose of more than 200 mg/dL in a nonstressed, ambulatory subject supports the diagnosis of Diabetes Mellitus. ADA recommended reference range Performed By: #### G LULS #### Point of Care testing , Potassium [Moles/Vol] 5.0 mmol/L Normal 3.5-5.1 [facility] Comment on above: Performed By: #### G LULS #### Point of Care testing , Sodium [Moles/Vol] 145 mmol/L Normal 136-145 [facility] Comment on above: Performed By: #### G LULS #### Point of Care testing , Urea nitrogen [Mass/Vol] 72 mg/dL High 7-25 [facility] Comment on above: Performed By: #### G LULS #### Point of Care testing , Complete Blood Count Auto Di ffon 11-15-2024 Basophils (Bld) [#/Vol] 0.0 10*3/uL Normal 0.0-0.2 [facility] Comment on above: Result Comment: PERF ORMED BY: [place] [address] [place] [address] PATHOLOGIST ALLERGIST IMMUNOLOGIST NIKITA RAMOS M.D. Performed By: #### G LULS #### Point of Care testing , Basophils/100 WBC (Bld) 0.2 % Normal . [facility] Comment on above: Performed By: #### G LULS #### Point of Care testing , Eosinophils (Bld) [#/Vol] 0.2 10*3/uL Normal 0.0-0.45 [facility] Comment on above: Performed By: #### G LULS #### Point of Care testing , Eosinophils/100 WBC (Bld) 2.0 % Normal . [facility] Comment on above: Performed By: #### G LULS #### Point of Care testing , Erythrocyte distribution width (RBC) [Ratio] 15.6 % High 11.9-15.3 [facility] Comment on above: Performed By: #### G LULS #### Point of Care testing , Hematocrit (Bld) [Volume fraction] 26.2 % Low 34.0-46.4 [facility] Comment on above: Performed By: #### G LULS #### Point of Care testing , Hemoglobin (Bld) [Mass/Vol] 8.3 g/dL Low 11.8-15.4 [facility] Comment on above: Performed By: #### G LULS #### Point of Care testing , Lymphocytes (Bld) [#/Vol] 0.6 10*3/uL Low 1.00-4.8 [facility] Comment on above: Performed By: #### G LULS #### Point of Care testing , Lymphocytes/100 WBC (Bld) 5.4 % Normal . [facility] Comment on above: Performed By: #### G LULS #### Point of Care testing , MCH (RBC) [Entitic mass] 29.5 pg Normal 24.7-34.3 [facility] Comment on above: Performed By: #### G LULS #### Point of Care testing , MCV (RBC) [Entitic vol] 93.1 fL Normal 80-100 [facility] Comment on above: Performed By: #### G LULS #### Point of Care testing , Mean Corpuscular HGB Conc 31.7 g/dL Low 32.0-35.0 [facility] Comment on above: Performed By: #### G LULS #### Point of Care testing , Monocytes (Bld) [#/Vol] 0.7 10*3/uL Normal 0.0-0.8 [facility] Comment on above: Performed By: #### G LULS #### Point of Care testing , Monocytes/100 WBC (Bld) 6.1 % Normal . [facility] Comment on above: Performed By: #### G LULS #### Point of Care testing , Neutrophils (Bld) [#/Vol] 9.6 10*3/uL High 1.8-7.7 [facility] Comment on above: Performed By: #### G LULS #### Point of Care testing , Neutrophils/100 WBC (Bld) 86.3 % Normal . [facility] Comment on above: Performed By: #### G LULS #### Point of Care testing , NRBC% 0.0 /100{WBC} Normal 0-0.5 [facility] Comment on above: Performed By: #### G LULS #### Point of Care testing , Platelet mean volume (Bld) [Entitic vol] 8.8 fL Normal 6.3-10.7 [facility] Comment on above: Performed By: #### G LULS #### Point of Care testing , Platelets (Bld) [#/Vol] 226 10*3/uL Normal 150-450 [facility] Comment on above: Performed By: #### G LULS #### Point of Care testing , RBC (Bld) [#/Vol] 2.81 10*6/uL Low 3.60-5.00 [facility] Comment on above: Performed By: #### G LULS #### Point of Care testing , WBC (Bld) [#/Vol] 11.1 10*3/uL Normal 3.8-11.6 [facility] Comment on above: Performed By: #### G LULS #### Point of Care testing , White Blood Count 11.1 [CFU]/mL Normal 3.8-11.6 [facility] Comment on above: Performed By: #### G LULS #### Point of Care testing , ECG 12 lead ECGon 11-15-2024 ECG 12 lead ECG [facility] Main [place] [address] [place], [place] [id number] Electrocardiograph Report Signed Patient: Margie Martínez MR#: [id number] : 1940 Acct:[id number] Age/Sex: 84 / F ADM Date: 11/09/24 Loc: Room: [address] [place] [address] Type: ADM IN Attending Dr: Bhargav Medel MD Ordering Provider: Patrick Mari DO Date of Service: 11/15/24 ECG/ECG 12 lead ECG: dyspnea Copies to: Test Reason : Blood Pressure : */* mmHG Vent. Rate : 82 BPM Atrial Rate : 82 BPM P-R Int : 148 ms QRS Dur : 136 ms QT Int : 420 ms P-R-T Axes : 10 -58 51 degrees QTcB Int : 490 ms Normal sinus rhythm Right bundle branch block Left anterior fascicular block Bifascicular block Minimal voltage criteria for LVH, may be normal variant ( R in aVL ) Abnormal ECG When compared with ECG of 14-Nov-2024 08:05, (Unconfirmed) No significant change was found Confirmed by [facility] ([id number]) on 11/15/2024 11:22:27 AM Referred By: Electronically Signed By: ARELY RENDON MD FAC Transcribed By: MUS Signed By Arely Rendon MD, FACC 11/15/24 1122 Normal [facility] Glucose Poct Glucometerson 0 11-15-2024 Glucose [Mass/Vol] 135 mg/dL Normal [facility] Comment on above: Result Comment: [facility] Glucose Reference Range is dependent on time and content of last meal. Glucose of more than 200 mg/dL in a nonstressed, ambulatory subject supports the diagnosis of Diabetes Mellitus. PERFORMED BY: [place] [address] PATHOLOGIST ALLERGIST IMMUNOLOGIST NIKITA RAMOS M.D. Performed By: #### G LULS ####Point of Care testing, Glucose [Mass/Vol] 162 mg/dL Normal [facility] Comment on above: Result Comment: [place] Glucose Reference Range is dependent on time and content of last meal. Glucose of more than 200 mg/dL in a nonstressed, ambulatory subject supports the diagnosis of Diabetes Mellitus. PERFORMED BY: [place] [address] PATHOLOGIST ALLERGIST IMMUNOLOGIST NIKITA RAMOS M.D. Performed By: #### G LULS ####Point of Care testing, Glucose [Mass/Vol] 185 mg/dL Normal [facility] Comment on above: Result Comment: [facility] Glucose Reference Range is dependent on time and content of last meal. Glucose of more than 200 mg/dL in a nonstressed, ambulatory subject supports the diagnosis of Diabetes Mellitus. PERFORMED BY: [place] [address] PATHOLOGIST ALLERGIST IMMUNOLOGIST NIKITA RAMOS M.D. Performed By: #### G LULS ####Point of Care testing, Glucose [Mass/Vol] 115 mg/dL Normal [facility] Comment on above: Result Comment: [facility] Glucose Reference Range is dependent on time and content of last meal. Glucose of more than 200 mg/dL in a nonstressed, ambulatory subject supports the diagnosis of Diabetes Mellitus. PERFORMED BY: [place] [id number] PATHOLOGIST ALLERGIST IMMUNOLOGIST NIKITA RAMOS M.D. Performed By: #### G LULS ####Point of Care testing, Glucose [Mass/Vol] 121 mg/dL Normal [facility] Comment on above: Result Comment: [facility] Glucose Reference Range is dependent on time and content of last meal. Glucose of more than 200 mg/dL in a nonstressed, ambulatory subject supports the diagnosis of Diabetes Mellitus. PERFORMED BY: [place] [id number] PATHOLOGIST ALLERGIST IMMUNOLOGISTDIRECTOR NIKITA RAMOS M.D. Performed By: #### G LULS ####Point of Care testing, Prothrombin Time INRon 11-15 INR Coag (PPP) [Relative time] 1.1 {INR} Normal [facility] Comment on above: Result [...] with mechanical heart valves: 3 - 4.5 PERFORMED BY: [facility] [address] [place] [id number] PATHOLOGIST ALLERGIST IMMUNOLOGIST NIKITA RAMOS M.D. Performed By: #### G LULS #### Point of Care testing , PT Coag (PPP) [Time] 12.9 s Normal 9.0-12.9 [facility] Comment on above: Result Comment: A he matocrit value greater than 55% may lead to inaccurate results in coagulation testing. Patients having hematocrit values >55% require a special collection tube for coagulation studies. Please contact the laboratory at [phone] for redraw instructions. Performed By: #### G LULS #### Point of Care testing , Basic Metabolic Panelon 10-18 Anion gap [Moles/Vol] 9.9 mmol/L Normal 6.0-15.0 [facility] Comment on above: Performed By: #### D IFF CBC, PT, BMP ####[place] [address] [place] [id number] [facility] Calcium [Mass/Vol] 8.3 mg/dL Low 8.6-10.3 [facility] Comment on above: Performed By: #### D IFF CBC, PT, BMP ####[place] [address] [place] [address] [facility] Chloride [Moles/Vol] 104 mmol/L Normal 98-107 [facility] Comment on above: Performed By: #### D IFF CBC, PT, BMP ####[place] [address] [place] [address] [facility] CO2 [Moles/Vol] 35.4 mmol/L High 21.0-31.0 [facility] Comment on above: Performed By: #### D IFF CBC, PT, BMP ####[place] [address] [place] [id number] [facility] Creatinine [Mass/Vol] 2.66 mg/dL High 0.60-1.20 [facility] Comment on above: Performed By: #### D IFF CBC, PT, BMP ####[place] [address] [place] [phone] [place] Creatinine Clr Calc Pharmacy 17.53 Normal [facility] Comment on above: Result Comment: PERF ORMED BY: [facility] [address] [facility] [place] [address] PATHOLOGIST ALLERGIST IMMUNOLOGIST NIKITA RAMOS M.D. Performed By: #### D IFF CBC, PT, BMP ####[place] [id number] [facility] GFR/1.73 sq M.predicted MDRD (S/P/Bld) [Vol rate/Area] 17.173 mL/min/{1.73_m2} Normal [facility] Comment on above: Performed By: #### D IFF CBC, PT, BMP ####[place] [address] [place] [id number] [facility] Glucose [Mass/Vol] 133 mg/dL High 70-100 [facility] Comment on above: Result Comment: [place] om Glucose Reference Range is dependent on time and content of last meal. Glucose of more than 200 mg/dL in a nonstressed, ambulatory subject supports the diagnosis of Diabetes Mellitus. ADA recommended reference range Performed By: #### D IFF CBC, PT, BMP ####[place] [address] [place] [address] [facility] Potassium [Moles/Vol] 5.3 mmol/L High 3.5-5.1 [facility] Comment on above: Performed By: #### D IFF CBC, PT, BMP ####[place] [address] [place] [phone] [facility] Sodium [Moles/Vol] 144 mmol/L Normal 136-145 [facility] Comment on above: Performed By: #### D IFF CBC, PT, BMP ####[place] [id number] [facility] Urea nitrogen [Mass/Vol] 79 mg/dL High 7-25 [facility] Comment on above: Performed By: #### D IFF CBC, PT, BMP ####[place] [id number] [facility] Diff and CBCon 11-14-2024 Anisocytosis Ql (Bld) Slight Normal [facility] Comment on above: Performed By: #### D IFF CBC, PT, BMP ####[address] Band form neutrophils/100 WBC (Bld) 2 % Normal 0-5 [facility] Comment on above: Performed By: #### D IFF CBC, PT, BMP ####[address] Erythrocyte distribution width (RBC) [Ratio] 15.7 % High 11.9-15.3 [facility] Comment on above: Performed By: #### D IFF CBC, PT, BMP ####[address] Hematocrit (Bld) [Volume fraction] 25.8 % Low 34.0-46.4 [facility] Comment on above: Performed By: #### D IFF CBC, PT, BMP ####[address] Hemoglobin (Bld) [Mass/Vol] 8.1 g/dL Low 11.8-15.4 [facility] Comment on above: Performed By: #### D IFF CBC, PT, BMP ####[place] [id number] [facility] Hypochromasia Slight Normal [facility] Comment on above: Performed By: #### D IFF CBC, PT, BMP ####[place] [id number] [facility] Lymphocytes/100 WBC (Bld) 6 % Low 18-42 [facility] Comment on above: Performed By: #### D IFF CBC, PT, BMP ####[address] MCH (RBC) [Entitic mass] 29.3 pg Normal 24.7-34.3 [facility] Comment on above: Performed By: #### D IFF CBC, PT, BMP ####[place] [id number] [facility] MCV (RBC) [Entitic vol] 93.2 fL Normal 80-100 [facility] Comment on above: Performed By: #### D IFF CBC, PT, BMP ####[address] Mean Corpuscular HGB Conc 31.5 g/dL Low 32.0-35.0 [facility] Comment on above: Performed By: #### D IFF CBC, PT, BMP ####[address] Platelet Estimate Normal Normal Normal [facility] Comment on above: Performed By: #### D IFF CBC, PT, BMP ####[address] Platelet mean volume (Bld) [Entitic vol] 8.9 fL Normal 6.3-10.7 [facility] Comment on above: Result Comment: PERF ORMED BY: [place] [address] PATHOLOGIST ALLERGIST IMMUNOLOGIST NIKITA RAMOS M.D. Performed By: #### D IFF CBC, PT, BMP ####[place] [id number] [facility] Platelet Morphology Normal Normal Normal [facility] Comment on above: Result Comment: PERF ORMED BY: [facility] [address] [place] [address] PATHOLOGIST ALLERGIST IMMUNOLOGIST NIKITA RAMOS M.D. Performed By: #### D IFF CBC, PT, BMP ####[place] [address] [place] Platelets (Bld) [#/Vol] 203 10*3/uL Normal 150-450 [facility] Comment on above: Performed By: #### D IFF CBC, PT, BMP ####[address] Poikilocytosis Slight Normal [facility] Comment on above: Performed By: #### D IFF CBC, PT, BMP ####[address] Polychromasia Slight Normal [facility] Comment on above: Performed By: #### D IFF CBC, PT, BMP ####[address] RBC (Bld) [#/Vol] 2.76 10*6/uL Low 3.60-5.00 [facility] Comment on above: Performed By: #### D IFF CBC, PT, BMP ####[address] Segmented neutrophils/100 WBC (Bld) 92 % High 50-70 [facility] Comment on above: Performed By: #### D IFF CBC, PT, BMP ####[address] Stomatocytes Slight Normal [facility] Comment on above: Performed By: #### D IFF CBC, PT, BMP ####[address] WBC (Bld) [#/Vol] 10.0 10*3/uL Normal 3.8-11.6 [facility] Comment on above: Performed By: #### D IFF CBC, PT, BMP ####[address] White Blood Count 10.0 [CFU]/mL Normal 3.8-11.6 [facility] Comment on above: Performed By: #### D IFF CBC, PT, BMP ####[address] ECG 12 lead ECGon 11-14-2024 ECG 12 lead ECG [facility] Main [place] [address] [place] [address] Electrocardiograph Report Signed Patient: Margie Martínez MR#: [id number] : 1940 Acct:[id number] Age/Sex: 84 / F ADM Date: 11/09/24 Loc: Room: [address] [place] [address] Type: ADM IN Attending Dr: Bhargav Medel MD Ordering Provider: Patrick Mari DO Date of Service: 11/14/24 ECG/ECG 12 lead ECG: dyspnea Copies to: Test Reason : Blood Pressure : 172/74 mmHG Vent. Rate : 66 BPM Atrial Rate : 66 BPM P-R Int : 154 ms QRS Dur : 142 ms QT Int : 450 ms P-R-T Axes : 28 -55 57 degrees QTcB Int : 471 ms Normal sinus rhythm Right bundle branch block Left anterior fascicular block Bifascicular block Voltage criteria for left ventricular hypertrophy Abnormal ECG When compared with ECG of 13-Nov-2024 07:28, (Unconfirmed) No significant change was found Confirmed by [facility], ARELY ([id number]) on 11/15/2024 11:22:12 AM Referred By: Electronically Signed By: ARELY RENDON MD FAC Transcribed By: MUS Signed By Arely Rendon MD, FACC 11/15/24 1122 Normal [facility] Ferritinon 11-14-2024 Ferritin [Mass/Vol] 563.0 ng/mL High 11.0-306.8 [facility] Comment on above: Order Comment: pt on bed taylor Result Comment: PERF ORMED BY: [facility] [address] [place] [address] PATHOLOGIST ALLERGIST IMMUNOLOGIST NIKITA RAMOS M.D. Performed By: #### F ER, FE and TIBC ####[facility] [address] [place] [id number] [facility] Glucose Poct Glucometerson 0 11-14-2024 Glucose [Mass/Vol] 136 mg/dL Normal [facility] Comment on above: Result Comment: [place] [facility] Glucose Reference Range is dependent on time and content of last meal. Glucose of more than 200 mg/dL in a nonstressed, ambulatory subject supports the diagnosis of Diabetes Mellitus. PERFORMED BY: [address] [place] [id number] PATHOLOGIST ALLERGIST IMMUNOLOGIST NIKITA RAMOS M.D. Performed By: #### G LULS ####Point of Care testing, Glucose [Mass/Vol] 229 mg/dL Normal [facility] Comment on above: Result Comment: [place] [facility] Glucose Reference Range is dependent on time and content of last meal. Glucose of more than 200 mg/dL in a nonstressed, ambulatory subject supports the diagnosis of Diabetes Mellitus. PERFORMED BY: [address] [place] [address] PATHOLOGIST ALLERGIST IMMUNOLOGIST NIKITA RAMOS M.D. Performed By: #### G LULS #### Point of Care testing , Commemt1 Glu2: Cleaned Meter Normal [facility] Comment on above: Result Comment: PERF ORMED BY: [facility] [address] [place] [address] PATHOLOGIST ALLERGIST IMMUNOLOGIST NIKITA RAMOS M.D. Performed By: #### G LULS ####Point of Care testing, Glucose [Mass/Vol] 150 mg/dL Normal [facility] Comment on above: Result Comment: [place] [facility] Glucose Reference Range is dependent on time and content of last meal. Glucose of more than 200 mg/dL in a nonstressed, ambulatory subject supports the diagnosis of Diabetes Mellitus. Performed By: #### G LULS ####Point of Care testing, Glucose [Mass/Vol] 150 mg/dL Normal [facility] Comment on above: Result Comment: [place] [facility] Glucose Reference Range is dependent on time and content of last meal. Glucose of more than 200 mg/dL in a nonstressed, ambulatory subject supports the diagnosis of Diabetes Mellitus. PERFORMED BY: [facility] [address] [address] [id number] PATHOLOGIST ALLERGIST IMMUNOLOGIST NIKITA S RACHEL M.D. Performed By: #### G LULS ####Point of Care testing, Iron and TIBC Profileon 10-18 % Iron Saturation 28.5 % Normal 20-50 [facility] Comment on above: Order Comment: pt on bed taylor Performed By: #### F ER, FE and TIBC ####[place] [address] [place] [address] [facility] Iron [Mass/Vol] 45 ug/dL Low 50-212 [facility] Comment on above: Order Comment: pt on bed taylor Performed By: #### F ER, FE and TIBC ####[place] [address] [place] [phone] [facility] Total Iron Binding Capacity 158 ug/dL Low 255-450 [facility] Comment on above: Order Comment: pt on bed taylor Performed By: #### F ER, FE and TIBC ####[place] [id number] [facility] Transferrin [Mass/Vol] 113 mg/dL Low 203-362 [facility] Comment on above: Order Comment: pt on bed taylor Performed By: #### F ER, FE and TIBC ####[place] [id number] [facility] Prothrombin Time INRon 11-14 INR Coag (PPP) [Relative time] 1.1 {INR} Normal [facility] Comment on above: Result [...] with mechanical heart valves: 3 - 4.5 PERFORMED BY: [facility] [address] [place] [id number] PATHOLOGIST ALLERGIST IMMUNOLOGIST NIKITA RAMOS M.D. Performed By: #### D IFF CBC, PT, BMP ####[place] [id number] [facility] PT Coag (PPP) [Time] 12.2 s Normal 9.0-12.9 [facility] Comment on above: Result Comment: A he matocrit value greater than 55% may lead to inaccurate results in coagulation testing. Patients having hematocrit values >55% require a special collection tube for coagulation studies. Please contact the laboratory at [phone] for redraw instructions. Performed By: #### D IFF CBC, PT, BMP ####[facility] [id number] [place] [id number] [facility] Vancomycin,Randomon 11-15-19 25 Vancomycin,Random 15.7 Normal 5.0-20.0 The [facility] Comment on above: Order Comment: pt on bed taylor Date of last dose?: [id number] Time of last dose?: 133 Result Comment: Last dose: - PERFORMED BY: [facility] [address] [place] [id number] PATHOLOGIST ALLERGIST IMMUNOLOGIST NIKITA RAMOS M.D. Performed By: #### V ANCR ####[place] [address] [place] [id number] [facility] Arterial Blood Gason 025 ABG Base Excess 7.4 mmol/L High -3.0-3.0 [facility] Comment on above: Performed By: #### A BG ####Point of Care testing, ABG Frac Inspired O2 35 % Normal [facility] Comment on above: Performed By: #### A BG ####Point of Care testing, ABG Oxygen Content 4.5 mmol/L Low 6.6-9.7 The [facility] Comment on above: Performed By: #### A BG ####Point of Care testing, ABG Oxygen Saturation 90.8 % Low 95.0-100.0 [facility] Comment on above: Performed By: #### A BG ####Point of Care testing, ABG PCO2 59.7 mm[Hg] Off scale high 35.0-45.0 [facility] Comment on above: Performed By: #### A BG ####Point of Care testing, ABG PEEP 5 Normal [facility] Comment on above: Performed By: #### A BG ####Point of Care testing, ABG PH 7.37 Normal 7.35-7.45 [facility] Comment on above: Performed By: #### A BG ####Point of Care testing, ABG PO2 59.6 mm[Hg] Low 80.0-100.0 [facility] Comment on above: Performed By: #### A BG ####Point of Care testing, ABG TV 350 mL Normal [facility] Comment on above: Performed By: #### A BG ####Point of Care testing, CO2 [Moles/Vol] 35.6 mmol/L High 23.0-27.0 The [facility] Comment on above: Performed By: #### A BG ####Point of Care testing, HCO3 (Bld) [Moles/Vol] 33.7 mmol/L High 23.0-29.0 T [facility] Comment on above: Performed By: #### A BG ####Point of Care testing, Respiratory Critical Normal [facility] Comment on above: Result Comment: Crit ical Value called on: 11/13/2024 at 05:00 PERFORMED BY: [address] [place] [id number] PATHOLOGIST ALLERGIST IMMUNOLOGIST NIKITA RAMOS M.D. Performed By: #### A BG ####Point of Care testing, Set Respiratory Rate 12 Normal [facility] Comment on above: Performed By: #### A BG ####Point of Care testing, VBG Draw Site Right Radial Normal [facility] Comment on above: Performed By: #### A BG ####Point of Care testing, B-Type Natriuretic Peptideon 11-13-2024 Natriuretic peptide B (Bld) [Mass/Vol] 181.0 pg/mL High 5-100 [facility] Comment on above: Result Comment: PERF ORMED BY: [address] [place] [id number] PATHOLOGIST ALLERGIST IMMUNOLOGIST NIKITA RAMOS M.D. Performed By: #### B SPANISHER ####[facility] [place] [phone] [facility] Basic Metabolic Panelon 06-2 Anion gap [Moles/Vol] 10.4 mmol/L Normal 6.0-15.0 [facility] Comment on above: Performed By: #### B MP, PT, CBC ####[address] Calcium [Mass/Vol] 7.7 mg/dL Low 8.6-10.3 The [facility] Comment on above: Performed By: #### B MP, PT, CBC ####[place] [id number] [facility] Chloride [Moles/Vol] 108 mmol/L High 98-107 [facility] Comment on above: Performed By: #### B MP, PT, CBC ####[address] CO2 [Moles/Vol] 35.8 mmol/L High 21.0-31.0 The [facility] Comment on above: Performed By: #### B MP, PT, CBC ####[place] [id number] [facility] Creatinine [Mass/Vol] 3.07 mg/dL High 0.60-1.20 [facility] Comment on above: Performed By: #### B MP, PT, CBC ####[address] Creatinine Clr Calc Pharmacy 15.11 Normal [facility] Comment on above: Result Comment: PERF ORMED BY: [facility] [address] [place] [address] PATHOLOGIST ALLERGIST IMMUNOLOGIST NIKITA RAMOS M.D. Performed By: #### B MP, PT, CBC ####[address] GFR/1.73 sq M.predicted MDRD (S/P/Bld) [Vol rate/Area] 14.459 mL/min/{1.73_m2} Normal [facility] Comment on above: Performed By: #### B MP, PT, CBC ####[address] Glucose [Mass/Vol] 154 mg/dL High 70-100 [facility] Comment on above: Result Comment: [facility] Glucose Reference Range is dependent on time and content of last meal. Glucose of more than 200 mg/dL in a nonstressed, ambulatory subject supports the diagnosis of Diabetes Mellitus. ADA recommended reference range Performed By: #### B MP, PT, CBC ####[address] Potassium [Moles/Vol] 5.2 mmol/L High 3.5-5.1 [facility] Comment on above: Performed By: #### B MP, PT, CBC ####[address] Sodium [Moles/Vol] 149 mmol/L High 136-145 [facility] Comment on above: Performed By: #### B MP, PT, CBC ####[address] Urea nitrogen [Mass/Vol] 99 mg/dL High 7-25 [facility] Comment on above: Performed By: #### B MP, PT, CBC ####[address] Complete Blood Count Auto Di ffon 11-13-2024 Basophils (Bld) [#/Vol] 0.0 10*3/uL Normal 0.0-0.2 [facility] Comment on above: Result Comment: PERF ORMED BY: [facility] [address] [place] [address] PATHOLOGIST ALLERGIST IMMUNOLOGIST NIKITA RAMOS M.D. Performed By: #### B MP, PT, CBC ####[place] [address] [place] Basophils/100 WBC (Bld) 0.2 % Normal . [facility] Comment on above: Performed By: #### B MP, PT, CBC ####[place] [address] [place] Eosinophils (Bld) [#/Vol] 0.2 10*3/uL Normal 0.0-0.45 [facility] Comment on above: Performed By: #### B MP, PT, CBC ####[address] Eosinophils/100 WBC (Bld) 2.1 % Normal . [facility] Comment on above: Performed By: #### B MP, PT, CBC ####[address] Erythrocyte distribution width (RBC) [Ratio] 15.5 % High 11.9-15.3 [facility] Comment on above: Performed By: #### B MP, PT, CBC ####[address] Hematocrit (Bld) [Volume fraction] 23.3 % Low 34.0-46.4 [facility] Comment on above: Performed By: #### B MP, PT, CBC ####[address] Hemoglobin (Bld) [Mass/Vol] 7.4 g/dL Low 11.8-15.4 [facility] Comment on above: Performed By: #### B MP, PT, CBC ####[address] Lymphocytes (Bld) [#/Vol] 0.4 10*3/uL Low 1.00-4.8 [facility] Comment on above: Performed By: #### B MP, PT, CBC ####[address] Lymphocytes/100 WBC (Bld) 4.3 % Normal . [facility] Comment on above: Performed By: #### B MP, PT, CBC ####[address] MCH (RBC) [Entitic mass] 29.9 pg Normal 24.7-34.3 [facility] Comment on above: Performed By: #### B MP, PT, CBC ####[address] MCV (RBC) [Entitic vol] 93.7 fL Normal 80-100 [facility] Comment on above: Performed By: #### B MP, PT, CBC ####[address] Mean Corpuscular HGB Conc 31.9 g/dL Low 32.0-35.0 [facility] Comment on above: Performed By: #### B MP, PT, CBC ####[address] Monocytes (Bld) [#/Vol] 0.6 10*3/uL Normal 0.0-0.8 [facility] Comment on above: Performed By: #### B MP, PT, CBC ####[address] Monocytes/100 WBC (Bld) 6.1 % Normal . [facility] Comment on above: Performed By: #### B MP, PT, CBC ####[address] Neutrophils (Bld) [#/Vol] 9.0 10*3/uL High 1.8-7.7 [facility] Comment on above: Performed By: #### B MP, PT, CBC ####[address] Neutrophils/100 WBC (Bld) 87.3 % Normal . [facility] Comment on above: Performed By: #### B MP, PT, CBC ####[address] NRBC% 0.1 /100{WBC} Normal 0-0.5 The [facility] Comment on above: Performed By: #### B MP, PT, CBC ####[address] Platelet mean volume (Bld) [Entitic vol] 8.9 fL Normal 6.3-10.7 The [facility] Comment on above: Performed By: #### B MP, PT, CBC ####[address] [address] [facility] Platelets (Bld) [#/Vol] 168 10*3/uL Normal 150-450 [facility] Comment on above: Performed By: #### B MP, PT, CBC ####[address] [address] [facility] RBC (Bld) [#/Vol] 2.49 10*6/uL Low 3.60-5.00 The [facility] Comment on above: Performed By: #### B MP, PT, CBC ####[address] [address] [facility] WBC (Bld) [#/Vol] 10.3 10*3/uL Normal 3.8-11.6 The [facility] Comment on above: Performed By: #### B MP, PT, CBC ####[place] [id number] [facility] White Blood Count 10.3 [CFU]/mL Normal 3.8-11.6 [facility] Comment on above: Performed By: #### B MP, PT, CBC ####[place] [id number] [facility] ECG 12 lead ECGon 11-13-2024 ECG 12 lead ECG [facility] [place] [address] Electrocardiograph Report Signed Patient: Margie Martínez MR#: [id number] 1668 : 1940 Acct:[id number] Age/Sex: 84 / F ADM Date: 11/09/24 Loc: Room: [address] [place] [address] Type: ADM IN Attending Dr: Bhargav Medel MD Ordering Provider: Patrick Mari DO Date of Service: 11/13/24 ECG/ECG 12 lead ECG: dyspnea Copies to: Test Reason : Blood Pressure : 110/56 mmHG Vent. Rate : 61 BPM Atrial Rate : 61 BPM P-R Int : 148 ms QRS Dur : 142 ms QT Int : 464 ms P-R-T Axes : 42 -55 71 degrees QTcB Int : 467 ms Normal sinus rhythm Right bundle branch block Left anterior fascicular block Bifascicular block Moderate voltage criteria for LVH, may be normal variant Abnormal ECG When compared with ECG of 12-Nov-2024 07:16, No significant change was found Confirmed by JUSTICE PLUNKETT [facility], ARELY ([id number]) on 11/15/2024 11:21:58 AM Referred By: Electronically Signed By: ARELY RENDON MD [facility] Transcribed By: MUS Signed By Arely Rendon MD, [facility] 11/15/24 1122 Normal [facility] Glucose Poct Glucometerson 0 11-13-2024 Glucose [Mass/Vol] 141 mg/dL Normal [facility] Comment on above: Result Comment: [place] [facility] Glucose Reference Range is dependent on time and content of last meal. Glucose of more than 200 mg/dL in a nonstressed, ambulatory subject supports the diagnosis of Diabetes Mellitus. PERFORMED BY: [address] [place] [address] PATHOLOGIST ALLERGIST IMMUNOLOGIST INKITA RAMOS M.D. Performed By: #### G LULS #### Point of Care testing , Commemt1 Glu2: Cleaned Meter Normal [facility] Comment on above: Result Comment: PERF ORMED BY: [address] [place] [address] PATHOLOGIST ALLERGIST IMMUNOLOGIST NIKITA RAMOS M.D. Performed By: #### G LULS #### Point of Care testing , Glucose [Mass/Vol] 139 mg/dL Normal [facility] Comment on above: Result Comment: [place] [facility] Glucose Reference Range is dependent on time and content of last meal. Glucose of more than 200 mg/dL in a nonstressed, ambulatory subject supports the diagnosis of Diabetes Mellitus. Performed By: #### G LULS #### Point of Care testing , Glucose [Mass/Vol] 167 mg/dL Normal [facility] Comment on above: Result Comment: [place] [facility] Glucose Reference Range is dependent on time and content of last meal. Glucose of more than 200 mg/dL in a nonstressed, ambulatory subject supports the diagnosis of Diabetes Mellitus. PERFORMED BY: [address] [place] [address] PATHOLOGIST ALLERGIST IMMUNOLOGIST NIKITA RAMOS M.D. Performed By: #### G TINY #### Point of Care testing , Prothrombin Time INRon 11-13 INR Coag (PPP) [Relative time] 1.1 {INR} Normal [facility] Comment on above: Result [...] with mechanical heart valves: 3 - 4.5 PERFORMED BY: [place] [address] PATHOLOGIST ALLERGIST IMMUNOLOGIST NIKITA RAMOS M.D. Performed By: #### B MP, PT, CBC ####[place] [id number] [address] PT Coag (PPP) [Time] 12.8 s Normal 9.0-12.9 [facility] Comment on above: Result Comment: A he matocrit value greater than 55% may lead to inaccurate results in coagulation testing. Patients having hematocrit values >55% require a special collection tube for coagulation studies. Please contact the laboratory at [phone] for redraw instructions. Performed By: #### B MP, PT, CBC ####[place] [address] [place] [id number] [facility] Vancomycin,Randomon 11-14-19 25 Vancomycin,Random 17.8 Normal 5.0-20.0 The [facility] Comment on above: Order Comment: Date of last dose?: [id number] Time of last dose?: 1418 Result Comment: Last dose: - PERFORMED BY: [address] [place] [id number] PATHOLOGIST ALLERGIST IMMUNOLOGIST NIKITA RAMOS M.D. Performed By: #### V ANCR ####[place] [address] [place] [address] [facility] XR chest 1V portableon 11-13 XR chest 1V portable [facility] Main [place] [address] [place] [address] XRay Report Signed Patient: Margie Martínez MR#: [id number] 1668 : 1940 Acct:[id number] Age/Sex: 84 / F ADM Date: 11/09/24 Loc: Room: [address] [place] [address] Type: ADM IN Attending Dr: Doe Mendez MD Copies to: DO Doe Augustine MD Ordering Provider: Patrick Mari DO Date of Service: 11/13/24 XR/XR chest 1V portable: vent SINGLE VIEW CHEST CLINICAL HISTORY: Respiratory failure ventilator COMPARISON: 11/12/2024 FINDINGS: Endotracheal tube the level of the clavicles, enteric tube unchanged. Stable enlarged cardiac silhouette. Perihilar pulmonary vascular congestion and effusions unchanged. XR/XR chest 1V portable IMPRESSION: STABLE PLEURAL PARENCHYMAL FINDINGS AND CATHETERS. Impression dictated by: Trino Keita M.D. 11/13/2024 7:16 AM Dictation Location: [place] [address] Transcribed By: [facility] 11/13/24 0716 Dictated By: Trino Keita MD 11/13/24 0715 Signed By: 11/13/24 0716 Normal [facility] Arterial Blood Gason 025 ABG Base Excess 3.2 mmol/L High -3.0-3.0 [facility] Comment on above: Performed By: #### G LULS #### Point of Care testing , ABG Frac Inspired O2 50 % Normal [facility] Comment on above: Performed By: #### G LULS #### Point of Care testing , ABG Oxygen Content 4.7 mmol/L Low 6.6-9.7 [facility] Comment on above: Performed By: #### G LULS #### Point of Care testing , ABG Oxygen Saturation 95.1 % Normal 95.0-100.0 [facility] Comment on above: Performed By: #### G LULS #### Point of Care testing , ABG PCO2 52.9 mm[Hg] Off scale high 35.0-45.0 [facility] Comment on above: Performed By: #### G LULS #### Point of Care testing , ABG PEEP 5 Normal [facility] Comment on above: Performed By: #### G LULS #### Point of Care testing , ABG PH 7.36 Normal 7.35-7.45 [facility] Comment on above: Performed By: #### G LULS #### Point of Care testing , ABG PO2 81.1 mm[Hg] Normal 80.0-100.0 [facility] Comment on above: Performed By: #### G LULS #### Point of Care testing , ABG TV 350 mL Normal [facility] Comment on above: Performed By: #### G LULS #### Point of Care testing , CO2 [Moles/Vol] 30.8 mmol/L High 23.0-27.0 [facility] Comment on above: Performed By: #### G LULS #### Point of Care testing , HCO3 (Bld) [Moles/Vol] 29.1 mmol/L High 23.0-29.0 [facility] Comment on above: Performed By: #### G LULS #### Point of Care testing , Respiratory Critical Normal [facility] Comment on above: Result Comment: Crit ical Value called on: 11/12/2024 at 05:07 PERFORMED BY: [facility] [address] [place] [address] PATHOLOGIST ALLERGIST IMMUNOLOGIST NIKITA RAMOS M.D. Performed By: #### G LULS #### Point of Care testing , Set Respiratory Rate 10 Normal [facility] Comment on above: Performed By: #### G LULS #### Point of Care testing , VBG Draw Site Left Radial Normal [facility] Comment on above: Performed By: #### G LULS #### Point of Care testing , Basic Metabolic Panelon 06-2 7-2025 Anion gap [Moles/Vol] 10.8 mmol/L Normal 6.0-15.0 [facility] Comment on above: Performed By: #### T JIGNESH GOMEZ, BMP ####[place] [address] [place] [id number] [facility] Calcium [Mass/Vol] 7.7 mg/dL Low 8.6-10.3 [facility] Comment on above: Performed By: #### T JASON CBC, BMP ####[place] [id number] [facility] Chloride [Moles/Vol] 106 mmol/L Normal 98-107 [facility] Comment on above: Performed By: #### T JIGNESH GOMEZ, BMP ####[place] [address] [place] [phone] [facility] CO2 [Moles/Vol] 33.6 mmol/L High 21.0-31.0 The [facility] Comment on above: Performed By: #### T JIGNESH GOMEZ, BMP ####[address] Creatinine [Mass/Vol] 3.06 mg/dL High 0.60-1.20 [facility] Comment on above: Performed By: #### T JIGNESH GOMEZ, BMP ####[place] [id number] [facility] Creatinine Clr Calc Pharmacy 15.07 Normal [facility] Comment on above: Performed By: #### T JIGNESH GOMEZ, BMP ####[place] [id number] [facility] GFR/1.73 sq M.predicted MDRD (S/P/Bld) [Vol rate/Area] 14.515 mL/min/{1.73_m2} Normal [facility] Comment on above: Performed By: #### T JASON CBC, BMP ####[place] [id number] [facility] Glucose [Mass/Vol] 167 mg/dL High 70-100 [facility] Comment on above: Result Comment: [place] Glucose Reference Range is dependent on time and content of last meal. Glucose of more than 200 mg/dL in a nonstressed, ambulatory subject supports the diagnosis of Diabetes Mellitus. ADA recommended reference range Performed By: #### T RIG, CBC, BMP ####[address] Potassium [Moles/Vol] 4.4 mmol/L Normal 3.5-5.1 [facility] Comment on above: Performed By: #### T RIG, CBC, BMP ####[address] Sodium [Moles/Vol] 146 mmol/L High 136-145 [facility] Comment on above: Performed By: #### T RIG, CBC, BMP ####[address] Urea nitrogen [Mass/Vol] 93 mg/dL High 7-25 [facility] Comment on above: Performed By: #### T RIG, CBC, BMP ####[address] Blood Cultureon 11-12-2024 Bacteria identified Cx Nom (Bld) NO GROWTH 5 DAYS PERFORMED BY: [place] [address] PATHOLOGIST ALLERGIST IMMUNOLOGIST NIKITA RAMOS M.D. Normal [facility] Comment on above: Performed By: #### C UBLD ####[address] Bacteria identified Cx Nom (Bld) NO GROWTH 5 DAYS PERFORMED BY: [place] [address] PATHOLOGIST ALLERGIST IMMUNOLOGIST NIKITA RAMOS M.D. Normal [facility] Comment on above: Performed By: #### C UBLD ####[address] Complete Blood Count Auto Di ffon 11-12-2024 Basophils (Bld) [#/Vol] 0.0 10*3/uL Normal 0.0-0.2 [facility] Comment on above: Result Comment: PERF ORMED BY: [facility] [place] [address] PATHOLOGIST ALLERGIST IMMUNOLOGIST NIKITA RAMOS M.D. Performed By: #### T RIG, CBC, BMP ####[address] Basophils/100 WBC (Bld) 0.2 % Normal . [facility] Comment on above: Performed By: #### T RIG, CBC, BMP ####[address] Eosinophils (Bld) [#/Vol] 0.1 10*3/uL Normal 0.0-0.45 [facility] Comment on above: Performed By: #### T RIG, CBC, BMP ####[address] Eosinophils/100 WBC (Bld) 1.2 % Normal . [facility] Comment on above: Performed By: #### T RIG, CBC, BMP ####[address] Erythrocyte distribution width (RBC) [Ratio] 15.5 % High 11.9-15.3 [facility] Comment on above: Performed By: #### T RIG, CBC, BMP ####[address] Hematocrit (Bld) [Volume fraction] 23.5 % Low 34.0-46.4 [facility] Comment on above: Performed By: #### T RIG, CBC, BMP ####[address] Hemoglobin (Bld) [Mass/Vol] 7.4 g/dL Low 11.8-15.4 [facility] Comment on above: Performed By: #### T RIG, CBC, BMP ####[address] Lymphocytes (Bld) [#/Vol] 0.3 10*3/uL Low 1.00-4.8 [facility] Comment on above: Performed By: #### T RIG, CBC, BMP ####[address] Lymphocytes/100 WBC (Bld) 2.4 % Normal . [facility] Comment on above: Performed By: #### T RIG, CBC, BMP ####[address] MCH (RBC) [Entitic mass] 29.3 pg Normal 24.7-34.3 [facility] Comment on above: Performed By: #### T RIG, CBC, BMP ####[address] MCV (RBC) [Entitic vol] 93.6 fL Normal 80-100 [facility] Comment on above: Performed By: #### T RIG, CBC, BMP ####[address] Mean Corpuscular HGB Conc 31.3 g/dL Low 32.0-35.0 [facility] Comment on above: Performed By: #### T RIG, CBC, BMP ####[address] Monocytes (Bld) [#/Vol] 0.4 10*3/uL Normal 0.0-0.8 [facility] Comment on above: Performed By: #### T RIG, CBC, BMP ####[address] Monocytes/100 WBC (Bld) 3.3 % Normal . [facility] Comment on above: Performed By: #### T RIG, CBC, BMP ####[address] Neutrophils (Bld) [#/Vol] 10.7 10*3/uL High 1.8-7.7 [facility] Comment on above: Performed By: #### T RIG, CBC, BMP ####[address] Neutrophils/100 WBC (Bld) 92.9 % Normal . [facility] Comment on above: Performed By: #### T RIG, CBC, BMP ####[address] [address] [facility] NRBC% 0.0 /100{WBC} Normal 0-0.5 The [facility] Comment on above: Performed By: #### T RIG, CBC, BMP ####[address] [address] [facility] Platelet mean volume (Bld) [Entitic vol] 8.7 fL Normal 6.3-10.7 The [facility] Comment on above: Performed By: #### T RIG, CBC, BMP ####[address] [address] [facility] Platelets (Bld) [#/Vol] 159 10*3/uL Normal 150-450 [facility] Comment on above: Performed By: #### T RIG, CBC, BMP ####[place] [id number] [facility] RBC (Bld) [#/Vol] 2.51 10*6/uL Low 3.60-5.00 The [facility]ician Group Comment on above: Performed By: #### T RIG, CBC, BMP ####[place] [id number] [facility] WBC (Bld) [#/Vol] 11.5 10*3/uL Normal 3.8-11.6 [facility] Comment on above: Performed By: #### T RIG, CBC, BMP ####[place] [id number] [facility] White Blood Count 11.5 [CFU]/mL Normal 3.8-11.6 [facility] Comment on above: Performed By: #### T RIG, CBC, BMP ####[place] [id number] [facility] ECG 12 lead ECGon 11-12-2024 ECG 12 lead ECG [facility] Main [place] [address] [place] [address] Electrocardiograph Report Signed Patient: Margie Martínez MR#: [id number] 1668 : 1940 Acct:[id number] Age/Sex: 84 / F ADM Date: 11/09/24 Loc: Room: [address] [place] [address] Type: ADM IN Attending Dr: Doe Mendez MD Ordering Provider: Patrick Mari DO Date of Service: 11/12/24 ECG/ECG 12 lead ECG: dyspnea Copies to: Test Reason : Blood Pressure : 100/50 mmHG Vent. Rate : 64 BPM Atrial Rate : 64 BPM P-R Int : 146 ms QRS Dur : 148 ms QT Int : 466 ms P-R-T Axes : 47 -56 74 degrees QTcB Int : 480 ms Normal sinus rhythm Right bundle branch block Left anterior fascicular block Bifascicular block Moderate voltage criteria for LVH, may be normal variant Cannot rule out Septal infarct (cited on or before 11-Nov-2024) Abnormal ECG When compared with ECG of 11-Nov-2024 07:57, (Unconfirmed) No significant change was found Confirmed by Kenyon Goode ([id number]) on 11/12/2024 10:55:13 AM Referred By: Electronically Signed By: Kenyon Goode Transcribed By: MUS Signed By Kenyon Goode MD 11/12/24 1055 Normal [facility] Glucose Poct Glucometerson 0 11-12-2024 Glucose [Mass/Vol] 149 mg/dL Normal [facility] Comment on above: Result Comment: [place] Glucose Reference Range is dependent on time and content of last meal. Glucose of more than 200 mg/dL in a nonstressed, ambulatory subject supports the diagnosis of Diabetes Mellitus. PERFORMED BY: [address] [address] PATHOLOGIST ALLERGIST IMMUNOLOGIST NIKITA RAMOS M.D. Performed By: #### G LULS ####Point of Care testing, Commemt1 Glu2: Cleaned Meter Normal [facility] Comment on above: Result Comment: PERF ORMED BY: [facility] [address] [facility] [place] [place] [address] PATHOLOGIST ALLERGIST IMMUNOLOGIST NIKITA RAMOS M.D. Performed By: #### G LULS ####Point of Care testing, Glucose [Mass/Vol] 152 mg/dL Normal [facility] Comment on above: Result Comment: [place] om Glucose Reference Range is dependent on time and content of last meal. Glucose of more than 200 mg/dL in a nonstressed, ambulatory subject supports the diagnosis of Diabetes Mellitus. Performed By: #### G LULS ####Point of Care testing, Commemt1 Glu2: Cleaned Meter Normal [facility] Comment on above: Performed By: #### G LULS ####Point of Care testing, Commemt2 SLIDING SCALE COVERA Normal [facility] Comment on above: Result Comment: PERF ORMED BY: [address] [address] PATHOLOGIST ALLERGIST IMMUNOLOGIST NIKITA RAMOS M.D. Performed By: #### G LULS ####Point of Care testing, Glucose [Mass/Vol] 181 mg/dL Normal [facility] Comment on above: Result Comment: [place] om Glucose Reference Range is dependent on time and content of last meal. Glucose of more than 200 mg/dL in a nonstressed, ambulatory subject supports the diagnosis of Diabetes Mellitus. Performed By: #### G LULS ####Point of Care testing, Prothrombin Time INRon 11-12 INR Coag (PPP) [Relative time] 1.3 {INR} Normal [facility] Comment on above: Order Comment: REDRA W Result Comment: INR Therapeutic Range A) Pre- [...] with mechanical heart valves: 3 - 4.5 PERFORMED BY: [facility] [address] [place] [address] PATHOLOGIST ALLERGIST IMMUNOLOGIST NIKITA RAMOS M.D. Performed By: #### P T ####[facility] [id number] [place] [address] [facility] PT Coag (PPP) [Time] 15.0 s High 9.0-12.9 [facility] Comment on above: Order Comment: REDRA W Result Comment: A he matocrit value greater than 55% may lead to inaccurate results in coagulation testing. Patients having hematocrit values >55% require a special collection tube for coagulation studies. Please contact the laboratory at [phone] for redraw instructions. Performed By: #### P T ####[place] [id number] [facility] Triglycerideson 11-12-2024 Triglyceride [Mass/Vol] 203 mg/dL High 35-149 [facility] Comment on above: Result Comment: TRIG ATP III CLASSIFICATION TRIG less than 150 mg/dL Normal TRIG 150-199 mg/dL Borderline high TRIG 200-500 mg/dL High TRIG greater than 500 mg/dL Very high Standard traceable to the Center for Disease Conrtrol and Prevention (CDC) test method. PERFORMED BY: [place] [address] PATHOLOGIST ALLERGIST IMMUNOLOGIST NIKITA RAMOS M.D. Performed By: #### T RIG, CBC, BMP ####[place] [id number] [facility] Vancomycin,Randomon 11-13-19 Vancomycin,Random 13.6 Normal 5.0-20.0 [facility] Comment on above: Order Comment: draw at 0700 LINE DRAW Date of last dose?: [id number] Time of last dose?: 1899 Result Comment: Last dose: - PERFORMED BY: [place] [id number] PATHOLOGIST ALLERGIST IMMUNOLOGIST NIKITA RAMOS M.D. Performed By: #### V ANCR ####[place] [id number] [facility] XR chest 1V portableon 11-12 XR chest 1V portable [facility] Main [place] [id number] XRay Report Signed Patient: Margie Martínez MR#: [id number] 1668 : 1940 Acct:[id number] Age/Sex: 84 / F ADM Date: 11/09/24 Loc: Room: [address] [place] [address] Type: ADM IN Attending Dr: Doe Mendez MD Copies to: DO Doe Augustine MD Ordering Provider: Patrick Mari DO Date of Service: 11/12/24 XR/XR chest 1V portable: vent XR chest 1V portable 11/12/2024 5:26 AM SIGNS AND SYMPTOMS: vent PROTOCOL: Frontal radiograph of the chest COMPARISON: 11/11/2024 FINDINGS: The trachea is midline. ET tube and enteric tube are in similar position. Atherosclerotic changes are noted in the thoracic aorta. There is cardiomegaly with bilateral airspace opacities and effusions. A right-sided PICC line is unchanged. The bony thorax is intact. XR/XR chest 1V portable IMPRESSION: Unchanged chest. Impression dictated by: Christiano Lozada M.D. 11/12/2024 9:30 AM Dictation Location: [place] [address] Transcribed By: [facility] 11/12/24929 Dictated By: Christiano Lozada II, MD 11/12/2428 Signed By: 11/12/24929 Normal [facility] Arterial Blood Gason 025 ABG Base Excess 6.7 mmol/L High -3.0-3.0 [facility] Comment on above: Performed By: #### A BG #### Point of Care testing , ABG Frac Inspired O2 40 % Normal [facility] Comment on above: Performed By: #### A BG #### Point of Care testing , ABG Oxygen Content 5.1 mmol/L Low 6.6-9.7 [facility] Comment on above: Performed By: #### A BG #### Point of Care testing , ABG Oxygen Saturation 93.6 % Low 95.0-100.0 [facility] Comment on above: Performed By: #### A BG #### Point of Care testing , ABG PCO2 46.8 mm[Hg] High 35.0-45.0 [facility] Comment on above: Performed By: #### A BG #### Point of Care testing , ABG PH 7.45 Normal 7.35-7.45 [facility] Comment on above: Performed By: #### A BG #### Point of Care testing , ABG PO2 65.1 mm[Hg] Low 80.0-100.0 [facility] Comment on above: Performed By: #### A BG #### Point of Care testing , CO2 [Moles/Vol] 32.9 mmol/L High 23.0-27.0 The [facility] Comment on above: Performed By: #### A BG #### Point of Care testing , HCO3 (Bld) [Moles/Vol] 31.5 mmol/L High 23.0-29.0 T [facility] Comment on above: Performed By: #### A BG #### Point of Care testing , Respiratory Critical Normal [facility] Comment on above: Result Comment: Crit ical Value called on: 11/11/2024 at 05:23 PERFORMED BY: [facility] [address] [place] [id number] PATHOLOGIST ALLERGIST IMMUNOLOGIST NIKITA RAMOS M.D. Performed By: #### A BG #### Point of Care testing , VBG Draw Site Right Radial Normal [facility] Comment on above: Performed By: #### A BG #### Point of Care testing , Basic Metabolic Panelon 10-18 Anion gap [Moles/Vol] 9.6 mmol/L Normal 6.0-15.0 [facility] Comment on above: Performed By: #### B MP, CBC, PT ####[facility] [id number] [place] [address] [facility] Calcium [Mass/Vol] 7.7 mg/dL Low 8.6-10.3 [facility] Comment on above: Performed By: #### B MP, CBC, PT ####[facility] [id number] [place] [address] [facility] Chloride [Moles/Vol] 104 mmol/L Normal 98-107 [facility] Comment on above: Performed By: #### B MP, CBC, PT ####[place] [address] [place] [id number] [facility] CO2 [Moles/Vol] 33.5 mmol/L High 21.0-31.0 [facility] Comment on above: Performed By: #### B MP, CBC, PT ####[place] 0[address] [address] Creatinine [Mass/Vol] 3.08 mg/dL High 0.60-1.20 [facility] Comment on above: Performed By: #### B MP, CBC, PT ####[place] 0[address]81 [address] Creatinine Clr Calc Pharmacy 15.05 Normal [facility] Comment on above: Result Comment: PERF ORMED BY: [facility] [address] [place] [address] PATHOLOGIST ALLERGIST IMMUNOLOGIST NIKITA RAMOS M.D. Performed By: #### B MP, CBC, PT ####[address] GFR/1.73 sq M.predicted MDRD (S/P/Bld) [Vol rate/Area] 14.403 mL/min/{1.73_m2} Normal [facility] Comment on above: Performed By: #### B MP, CBC, PT ####[address] Glucose [Mass/Vol] 130 mg/dL High 70-100 [facility] Comment on above: Result Comment: [place] Glucose Reference Range is dependent on time and content of last meal. Glucose of more than 200 mg/dL in a nonstressed, ambulatory subject supports the diagnosis of Diabetes Mellitus. ADA recommended reference range Performed By: #### B MP, CBC, PT ####[place] [id number] [address] Potassium [Moles/Vol] 4.1 mmol/L Normal 3.5-5.1 [facility] Comment on above: Performed By: #### B MP, CBC, PT ####[address] Sodium [Moles/Vol] 143 mmol/L Normal 136-145 [facility] Comment on above: Performed By: #### B MP, CBC, PT ####[address] Urea nitrogen [Mass/Vol] 93 mg/dL High 7-25 [facility] Comment on above: Performed By: #### B MP, CBC, PT ####[address] Complete Blood Count Auto Di ffon 11-11-2024 Basophils (Bld) [#/Vol] 0.0 10*3/uL Normal 0.0-0.2 [facility] Comment on above: Result Comment: PERF ORMED BY: [address] [place] [address] PATHOLOGIST ALLERGIST IMMUNOLOGIST NIKITA RAMOS M.D. Performed By: #### B MP, CBC, PT ####[address] Basophils/100 WBC (Bld) 0.0 % Normal . [facility] Comment on above: Performed By: #### B MP, CBC, PT ####[address] Eosinophils (Bld) [#/Vol] 0.0 10*3/uL Normal 0.0-0.45 [facility] Comment on above: Performed By: #### B MP, CBC, PT ####[address] Eosinophils/100 WBC (Bld) 0.2 % Normal . [facility] Comment on above: Performed By: #### B MP, CBC, PT ####[address] Erythrocyte distribution width (RBC) [Ratio] 15.2 % Normal 11.9-15.3 [facility] Comment on above: Performed By: #### B MP, CBC, PT ####[address] Hematocrit (Bld) [Volume fraction] 24.7 % Low 34.0-46.4 [facility] Comment on above: Performed By: #### B MP, CBC, PT ####[address] Hemoglobin (Bld) [Mass/Vol] 7.8 g/dL Low 11.8-15.4 [facility] Comment on above: Performed By: #### B MP, CBC, PT ####[address] Lymphocytes (Bld) [#/Vol] 0.3 10*3/uL Low 1.00-4.8 [facility] Comment on above: Performed By: #### B MP, CBC, PT ####[address] Lymphocytes/100 WBC (Bld) 2.8 % Normal . [facility] Comment on above: Performed By: #### B MP, CBC, PT ####[address] MCH (RBC) [Entitic mass] 29.4 pg Normal 24.7-34.3 [facility] Comment on above: Performed By: #### B MP, CBC, PT ####[address] MCV (RBC) [Entitic vol] 92.8 fL Normal 80-100 [facility] Comment on above: Performed By: #### B MP, CBC, PT ####[address] Mean Corpuscular HGB Conc 31.7 g/dL Low 32.0-35.0 [facility] Comment on above: Performed By: #### B MP, CBC, PT ####[address] Monocytes (Bld) [#/Vol] 0.4 10*3/uL Normal 0.0-0.8 [facility] Comment on above: Performed By: #### B MP, CBC, PT ####[address] [address] [facility] Monocytes/100 WBC (Bld) 3.8 % Normal . [facility] Comment on above: Performed By: #### B MP, CBC, PT ####[address] [address] [facility] Neutrophils (Bld) [#/Vol] 10.3 10*3/uL High 1.8-7.7 [facility] Comment on above: Performed By: #### B MP, CBC, PT ####[address] [address] [facility] Neutrophils/100 WBC (Bld) 93.2 % Normal . [facility] Comment on above: Performed By: #### B MP, CBC, PT ####[place] [id number] [facility] NRBC% 0.1 /100{WBC} Normal 0-0.5 The [facility] Comment on above: Performed By: #### B MP, CBC, PT ####[address] [address] [facility] Platelet mean volume (Bld) [Entitic vol] 8.1 fL Normal 6.3-10.7 The [facility] Comment on above: Performed By: #### B MP, CBC, PT ####[address] [address] [facility] Platelets (Bld) [#/Vol] 147 10*3/uL Low 150-450 [facility] Comment on above: Performed By: #### B MP, CBC, PT ####[address] [address] [facility] RBC (Bld) [#/Vol] 2.67 10*6/uL Low 3.60-5.00 [facility] Comment on above: Performed By: #### B MP, CBC, PT ####[address] [address] [place] WBC (Bld) [#/Vol] 11.0 10*3/uL Normal 3.8-11.6 [facility] [place] [facility] Comment on above: Performed By: #### B MP, CBC, PT ####[facility] [id number] White Blood Count 11.0 [CFU]/mL Normal 3.8-11.6 [facility] Comment on above: Performed By: #### B MP, CBC, PT ####[facility] [id number] [place] [id number] [facility] ECG 12 lead ECGon 11-11-2024 ECG 12 lead ECG [facility] Main [place] [address] [place] [address] Electrocardiograph Report Signed Patient: Margie Martínez MR#: [id number] 1668 : 1940 Acct:[id number] Age/Sex: 84 / F ADM Date: 11/09/24 Loc: Room: [address] [place] [address] Type: ADM IN Attending Dr: Bhargav Medel MD Ordering Provider: Doe Mendez MD Date of Service: 11/11/24 ECG/ECG 12 lead ECG: prn ekg Copies to: Test Reason : Blood Pressure : 112/55 mmHG Vent. Rate : 65 BPM Atrial Rate : 65 BPM P-R Int : 150 ms QRS Dur : 146 ms QT Int : 456 ms P-R-T Axes : 46 -55 79 degrees QTcB Int : 474 ms Normal sinus rhythm Right bundle branch block Left anterior fascicular block Bifascicular block Left ventricular hypertrophy with repolarization abnormality Abnormal ECG When compared with ECG of 10-Nov-2024 08:13, No significant change was found Confirmed by JUSTICE PLUNKETT [facility], ARELY ([id number]) on 11/15/2024 11:21:36 AM Referred By: Electronically Signed By: ARELY RENDON MD [facility] Transcribed By: MUS Signed By Arely Rendon MD, FACC 11/15/24 1121 Normal [facility] Glucose Poct Glucometerson 0 11-11-2024 Glucose [Mass/Vol] 148 mg/dL Normal [facility] Comment on above: Result Comment: [place] Glucose Reference Range is dependent on time and content of last meal. Glucose of more than 200 mg/dL in a nonstressed, ambulatory subject supports the diagnosis of Diabetes Mellitus. PERFORMED BY: [address] [place] [id number] PATHOLOGIST ALLERGIST IMMUNOLOGIST NIKITA RAMOS M.D. Performed By: #### G LULS ####Point of Care testing, Commemt1 Glu2: Cleaned Meter Normal [facility] Comment on above: Result Comment: PERF ORMED BY: [address] [place] [address] PATHOLOGIST ALLERGIST IMMUNOLOGIST NIKITA RAMOS M.D. Performed By: #### G LULS ####Point of Care testing, Glucose [Mass/Vol] 163 mg/dL Normal [facility] Comment on above: Result Comment: [place] om Glucose Reference Range is dependent on time and content of last meal. Glucose of more than 200 mg/dL in a nonstressed, ambulatory subject supports the diagnosis of Diabetes Mellitus. Performed By: #### G LULS ####Point of Care testing, Glucose [Mass/Vol] 120 mg/dL Normal [facility] Comment on above: Result Comment: [place] om Glucose Reference Range is dependent on time and content of last meal. Glucose of more than 200 mg/dL in a nonstressed, ambulatory subject supports the diagnosis of Diabetes Mellitus. PERFORMED BY: [address] [place] [address] PATHOLOGIST ALLERGIST IMMUNOLOGIST NIKITA RAMOS M.D. Performed By: #### G LULS ####Point of Care testing, Commemt1 Glu2: Cleaned Meter Normal [facility] Comment on above: Result Comment: PERF ORMED BY: [address] [id number] PATHOLOGIST ALLERGIST IMMUNOLOGIST NIKITA RAMOS M.D. Performed By: #### G LULS ####Point of Care testing, Glucose [Mass/Vol] 166 mg/dL Normal [facility] Comment on above: Result Comment: [place] om Glucose Reference Range is dependent on time and content of last meal. Glucose of more than 200 mg/dL in a nonstressed, ambulatory subject supports the diagnosis of Diabetes Mellitus. Performed By: #### G LULS ####Point of Care testing, Commemt1 Glu2: Cleaned Meter Normal [facility] Comment on above: Result Comment: PERF ORMED BY: [facility] [address] [place] [address] PATHOLOGIST ALLERGIST IMMUNOLOGIST NIKITA RAMOS M.D. Performed By: #### G LULS ####Point of Care testing, Glucose [Mass/Vol] 169 mg/dL Normal [facility] Comment on above: Result Comment: [place] Glucose Reference Range is dependent on time and content of last meal. Glucose of more than 200 mg/dL in a nonstressed, ambulatory subject supports the diagnosis of Diabetes Mellitus. Performed By: #### G LULS ####Point of Care testing, Prothrombin Time INRon 11-11 INR Coag (PPP) [Relative time] 2.1 {INR} Normal [facility] Comment on above: Result [...] with mechanical heart valves: 3 - 4.5 PERFORMED BY: [facility] [address] [place] [address] PATHOLOGIST ALLERGIST IMMUNOLOGIST NIKITA RAMOS M.D. Performed By: #### B MP, CBC, PT ####[facility] [place] [address] [facility] PT Coag (PPP) [Time] 23.4 s Significant change down 9.0-12.9 [facility] Comment on above: Result Comment: A he matocrit value greater than 55% may lead to inaccurate results in coagulation testing. Patients having hematocrit values >55% require a special collection tube for coagulation studies. Please contact the laboratory at [phone] for redraw instructions. Performed By: #### B MP, CBC, PT ####[facility] [id number] [place] [address] [facility] XR chest 1V portableon 11-11 XR chest 1V portable [facility] Main [place] [address] [place] [address] XRay Report Signed Patient: Margie Martínez MR#: [id number] 1668 : 1940 Acct:[id number] Age/Sex: 84 / F ADM Date: 11/09/24 Loc: Room: [address] [place] [address] Type: ADM IN Attending Dr: Doe Mendez MD Copies to: DO Doe Augustine MD Ordering Provider: Patrick Mari DO Date of Service: 11/11/24 XR/XR chest 1V portable: vent XR chest 1V portable 11/11/2024 6:19 AM SIGNS AND SYMPTOMS: vent PROTOCOL: Frontal radiograph of the chest COMPARISON: 11/10/2024 FINDINGS: The trachea is midline. ET tube, enteric tube, and right-sided PICC line are unchanged. There is cardiomegaly. Bilateral airspace opacities are redemonstrated greatest in the lung bases. Degenerative changes are noted in the shoulders and thoracic spine. The bony thorax is intact. XR/XR chest 1V portable IMPRESSION: Unchanged chest. Impression dictated by: Christiano Lozada M.D. 11/11/2024 8:17 AM Dictation Location: [place] [address] Transcribed By: [facility] 11/11/24816 Dictated By: Christiano Lozada II, MD 11/11/24816 Signed By: 11/11/24816 Normal [facility] A1C with Estimated Average G donald 11-10-2024 Glucose [Mass/Vol] 134 mg/dL Normal [facility] Comment on above: Result Comment: PERF ORMED BY: [place] [id number] PATHOLOGIST ALLERGIST IMMUNOLOGIST NIKITA RAMOS M.D. Performed By: #### B MP, CBC, A1C WTH eA, TRIG, PT ####[facility] [id number] [place] [id number] [facility] HbA1c (Bld) [Mass fraction] 6.3 % High 4.3-5.6 [facility] Comment on above: Result Comment: Incr eased risk for diabetes: 5.7 - 6.4 diabetes: >6.4 glycemic control for adults with diabetes: <7.0 Performed By: #### B MP, CBC, A1C WTH eA, TRIG, PT ####[place] [address] [place] [id number] [facility] Aerobic Cultureon 11-10-2024 Aerobic Culture ORGANISM: Methicilli n Resis Staph Aureus (O:MRSA) Comments Pure Growth Quantity of Growth Heavy Growth Gram Stain Result 4+ White Blood Cells 4+ Gram Positive Cocci Rare Epithelial Cells Aerobic GAURAV Charge (PCMIC38) SUSCEPTIBILITY ORGANISM: O:MRSA ANTIBIOTIC INTERPRETATION GAURAV Azithromycin R >4 Ceftaroline S 1 Clindamycin R <0.25 Linezolid S 2 Oxacillin R >2 Penicillin R >2 Tetracycline S <4 Trimethoprim/Sulfamethoxa zole S <0.5 Vancomycin S 1 S = SUSCEPTIBLE I = INTERMEDIATE R = RESISTANT BLANK = DATA NOT AVAILABLE, OR DRUG NOT ADVISABLE OR TESTED R* = RESISTANCE DUE TO EXTENDED SPECTRUM BETA-LACTAMASES ESBL = EXTENDED SPECTRUM BETA-LACTAMASE TFG = THYMIDINE-DEPENDENT STRAIN CYNDIE = BETA-LACTAMASE POSITIVE IB = INDUCIBLE BETA-LACTAMASE. APPEARS IN PLACE OF 'S' WITH SPECIES KNOWN TO POSSESS INDUCIBLE BETA-LACTAMASES. POTENTIALLY THEY MAY BECOME RESISTANT TO ALL B-LACTAM DRUGS. PERFORMED BY: [facility] [address] [place] [id number] PATHOLOGIST ALLERGIST IMMUNOLOGIST NIKITA RAMOS M.D. Normal [facility] Comment on above: Performed By: #### A ERC, ####[place] [address] [place] [id number] [facility] Arterial Blood Gason 025 ABG Base Excess 6.3 mmol/L High -3.0-3.0 [facility] Comment on above: Performed By: #### G LULS #### Point of Care testing , ABG Frac Inspired O2 70 % Normal [facility] Comment on above: Performed By: #### G LULS #### Point of Care testing , ABG Oxygen Content 5.4 mmol/L Low 6.6-9.7 [facility] Comment on above: Performed By: #### G LULS #### Point of Care testing , ABG Oxygen Saturation 95.6 % Normal 95.0-100.0 [facility] Comment on above: Performed By: #### G LULS #### Point of Care testing , ABG PCO2 56.0 mm[Hg] Off scale high 35.0-45.0 [facility] Comment on above: Performed By: #### G LULS #### Point of Care testing , ABG PEEP 5 Normal [facility] Comment on above: Performed By: #### G LULS #### Point of Care testing , ABG PH 7.38 Normal 7.35-7.45 [facility] Comment on above: Performed By: #### G LULS #### Point of Care testing , ABG PO2 83.1 mm[Hg] Normal 80.0-100.0 [facility] Comment on above: Performed By: #### G LULS #### Point of Care testing , ABG TV 400 mL Normal [facility] Comment on above: Performed By: #### G LULS #### Point of Care testing , CO2 [Moles/Vol] 34.1 mmol/L High 23.0-27.0 [facility] Comment on above: Performed By: #### G LULS #### Point of Care testing , HCO3 (Bld) [Moles/Vol] 32.4 mmol/L High 23.0-29.0 [facility] Comment on above: Performed By: #### G LULS #### Point of Care testing , Respiratory Critical Normal [facility] Comment on above: Result Comment: Crit ical Value called on: 11/10/2024 at 00:34 PERFORMED BY: [facility] [address] [place] [id number] PATHOLOGIST ALLERGIST IMMUNOLOGIST NIKITA RAMOS M.D. Performed By: #### G LULS #### Point of Care testing , Set Respiratory Rate 12 Normal [facility] Comment on above: Performed By: #### G LULS #### Point of Care testing , VBG Draw Site Left Brachial Normal [facility] Comment on above: Performed By: #### G LULS #### Point of Care testing , Ventilator Mode AC Normal [facility] Comment on above: Performed By: #### G LULS #### Point of Care testing , Basic Metabolic Panelon 10-18 Anion gap [Moles/Vol] 10.3 mmol/L Normal 6.0-15.0 e [facility] Comment on above: Performed By: #### B MP, CBC, A1C WTH eA, TRIG, PT ####[place] [id number] [address] Calcium [Mass/Vol] 7.9 mg/dL Low 8.6-10.3 [facility] Comment on above: Performed By: #### B MP, CBC, A1C WTH eA, TRIG, PT ####[address] Chloride [Moles/Vol] 103 mmol/L Normal 98-107 [facility] Comment on above: Performed By: #### B MP, CBC, A1C WTH eA, TRIG, PT ####[place] [id number] [facility] CO2 [Moles/Vol] 33.8 mmol/L High 21.0-31.0 [facility] Comment on above: Performed By: #### B MP, CBC, A1C WTH eA, TRIG, PT ####[place] [id number] [facility] Creatinine [Mass/Vol] 2.83 mg/dL High 0.60-1.20 [facility] Comment on above: Performed By: #### B MP, CBC, A1C WTH eA, TRIG, PT ####[facility] [place] [id number] [place] Creatinine Clr Calc Pharmacy 16.38 Normal [facility] Comment on above: Performed By: #### B MP, CBC, A1C WTH eA, TRIG, PT ####[place] [address] [place] [id number] [place] GFR/1.73 sq M.predicted MDRD (S/P/Bld) [Vol rate/Area] 15.943 mL/min/{1.73_m2} Normal [facility] Comment on above: Performed By: #### B MP, CBC, A1C WTH eA, TRIG, PT ####[place] [address] [place] [id number] [facility] Glucose [Mass/Vol] 165 mg/dL High 70-100 [facility] Comment on above: Result Comment: [facility] Glucose Reference Range is dependent on time and content of last meal. Glucose of more than 200 mg/dL in a nonstressed, ambulatory subject supports the diagnosis of Diabetes Mellitus. ADA recommended reference range Performed By: #### B MP, CBC, A1C WTH eA, TRIG, PT ####[place] [id number] [facility] Potassium [Moles/Vol] 4.1 mmol/L Normal 3.5-5.1 [facility] Comment on above: Performed By: #### B MP, CBC, A1C WTH eA, TRIG, PT ####[place] [id number] [facility] Sodium [Moles/Vol] 143 mmol/L Normal 136-145 [facility] Comment on above: Performed By: #### B MP, CBC, A1C WTH eA, TRIG, PT ####[place] [id number] [place] Urea nitrogen [Mass/Vol] 82 mg/dL High 7-25 [facility] Comment on above: Performed By: #### B MP, CBC, A1C WTH eA, TRIG, PT ####[place] [id number] [facility] Anion gap [Moles/Vol] 11.7 mmol/L Normal 6.0-15.0 Th [facility] Comment on above: Performed By: #### C UBLD, PT, CBC, BMP ####[address] Calcium [Mass/Vol] 8.2 mg/dL Low 8.6-10.3 [facility] Comment on above: Performed By: #### C UBLD, PT, CBC, BMP ####[address] Chloride [Moles/Vol] 102 mmol/L Normal 98-107 [facility] Comment on above: Performed By: #### C UBLD, PT, CBC, BMP ####[address] CO2 [Moles/Vol] 32.3 mmol/L High 21.0-31.0 [facility] Comment on above: Performed By: #### C UBLD, PT, CBC, BMP ####[address] Creatinine [Mass/Vol] 3.03 mg/dL High 0.60-1.20 [facility] Comment on above: Performed By: #### C UBLD, PT, CBC, BMP ####[address] Creatinine Clr Calc Pharmacy 15.30 Normal [facility] Comment on above: Result Comment: PERF ORMED BY: [facility] [address] [place] [id number] PATHOLOGIST ALLERGIST IMMUNOLOGIST NIKITA RAMOS M.D. Performed By: #### C UBLD, PT, CBC, BMP ####[address] GFR/1.73 sq M.predicted MDRD (S/P/Bld) [Vol rate/Area] 14.688 mL/min/{1.73_m2} Normal [facility] Comment on above: Performed By: #### C UBLD, PT, CBC, BMP ####[place] [address] Glucose [Mass/Vol] 177 mg/dL High 70-100 [facility] Comment on above: Result Comment: [place] Glucose Reference Range is dependent on time and content of last meal. Glucose of more than 200 mg/dL in a nonstressed, ambulatory subject supports the diagnosis of Diabetes Mellitus. ADA recommended reference range Performed By: #### C UBLD, PT, CBC, BMP ####[address] Potassium [Moles/Vol] 4.0 mmol/L Normal 3.5-5.1 [facility] Comment on above: Performed By: #### C UBLD, PT, CBC, BMP ####[address] Sodium [Moles/Vol] 142 mmol/L Normal 136-145 [facility] Comment on above: Performed By: #### C UBLD, PT, CBC, BMP ####[address] Urea nitrogen [Mass/Vol] 80 mg/dL High 7-25 [facility] Comment on above: Performed By: #### C UBLD, PT, CBC, BMP ####[address] Blood Cultureon 11-10-2024 Bacteria identified Cx Nom (Bld) NO GROWTH 5 DAYS PERFORMED BY: [facility] [address] [place] [address] PATHOLOGIST ALLERGIST IMMUNOLOGIST NIKITA RAMOS M.D. Normal [facility] Comment on above: Performed By: #### C UBLD, PT, CBC, BMP ####[address] Bacteria identified Cx Nom (Bld) Results called at 1400 on 11/11/24 Gram Stain Gram Positive Cocci in Clusters ORGANISM: Methicillin Resis Staph Aureus (O:MRSA) Aerobic GAURAV Charge (PCMIC38) SUSCEPTIBILITY ORGANISM: O:MRSA ANTIBIOTIC INTERPRETATION GAURAV Azithromycin R >4 Ceftaroline S 1 Daptomycin S 1 Linezolid S 2 Oxacillin R >2 Penicillin R >2 Tetracycline S <4 Trimethoprim/Sulfamethoxa zole S <0.5 Vancomycin S 1 Results called at 1400 on 11/11/24 Staphylococcus aureus DNA [Presence] by KEVIN with non-probe detection in Positive blood culture Detected Bacteroides fragilis DNA [Presence] by KEVIN with non-probe detection in Positive blood culture Not detected Deya auris DNA [Presence] by KEVIN with non-probe detection in Positive blood culture Not detected Deya albicans DNA [Presence] by KEVIN with non-probe detection in Positive blood culture Not detected Acinetobacter calcoaceticus-baumannii complex DNA [Presence] by KEVIN with non-probe detection in Positive blood culture Not detected Cryptococcus neoformans or gattii 9002 Not detected Cephalosporin resistance blaCTX-M gene [Presence] by Molecular method Not Applicable Escherichia coli Not detected Enterobacterales DNA [Presence] by KEVIN with non-probe detection in Positive blood culture Not detected Enterobacter cloacae complex DNA [Presence] by KEVIN with non-probe detection in Positive blood culture Not detected Staphylococcus epidermidis DNA [Presence] by KEVIN with non-probe detection in Positive blood culture Not detected Enterococcus faecalis DNA [Presence] by KEVIN with non-probe detection in Positive blood culture Not detected Enterococcus faecium DNA [Presence] by KEVIN with non-probe detection in Positive blood culture Not detected Deya glabrata DNA [Presence] by KEVIN with non-probe detection in Positive blood culture Not detected Haemophilus influenzae (reported as H flu) Not detected Carbapenem resistance blaIMP gene [Presence] by Molecular method Not Applicable Klebsiella aerogenes DNA [Presence] by KEVIN with non-probe detection in Positive blood culture Not detected Klebsiella pneumoniae+Klebsiella variicola+Klebsiella quasipneumoniae DNA [Presence] by KEVIN with non-probe detection in Positive blood culture Not detected Klebsiella oxytoca DNA [Presence] by KEVIN with non-probe detection in Positive blood culture Not detected Carbapenem resistance blaKPC gene [Presence] by Molecular method Not Applicable Deya krusei DNA [Presence] by KEVIN with non-probe detection in Positive blood culture Not detected Listeria monocytogenes (reported as listeriosis) Not detected Staphylococcus lugdunensis DNA [Presence] by KEVIN with non-probe detection in Positive blood culture Not detected Methicillin resistance mecA+mecC genes+SCCmec+OrfX junction [Presence] by Molecular method Detected Carbapenem resistance blaNDM gene [Presence] by Molecular method Not Applicable Neisseria meningitidis - reported as meningococcal disease Not detected Carbapenem resistance christel OXA-48-like gene [Presence] by Molecular method Not Applicable Deya parapsilosis DNA [Presence] by KEVIN with non-probe detection in Positive blood culture Not detected Streptococcus pneumoniae - reported at ISP Not detected Proteus sp DNA [Presence] by KEVIN with non-probe detection in Positive blood culture Not detected Pseudomonas aeruginosa DNA [Presence] by KEVIN with non-probe detection in Positive blood culture Not detected Salmonella sp DNA [Presence] by KEVIN with non-probe detection in Positive blood culture Not detected Serratia marcescens DNA [Presence] by KEVIN with non-probe detection in Positive blood culture Not detected Staphylococcus sp DNA [Presence] by KEVIN with non-probe detection in Positive blood culture Detected Stenotrophomonas maltophilia DNA [Presence] by KEVIN with non-probe detection in Positive blood culture Not detected Group A (Streptococcus pyogenes) [id number] Not detected Group B Strep (Streptococcus agalactiae) Not detected Streptococcus sp DNA [Presence] by KEVIN with non-probe detection in Positive blood culture Not detected Deya tropicalis DNA [Presence] by KEVIN with non-probe detection in Positive blood culture Not detected Vancomycin resistance Cr + vanB genes [Presence] by Molecular method Not Applicable Carbapenem resistance blaVIM gene [Presence] by Molecular method Not Applicable Colistin resistance mcr-1 gene [Presence] by Molecular method Not Applicable Methicillin resistance mecA+mecC genes [Presence] in Isolate or Specimen by Molecular genetics method Not Applicable RESIS. GENE COMMENT 1 Antimicrobial resistance can occur via multiple RESIS. GENE COMMENT 2 mechanisms. A Not Detected result for antimicrobial RESIS. GENE COMMENT 3 resistance gene(s) does not indicate antimicrobial RESIS. GENE COMMENT 4 susceptibility. S = SUSCEPTIBLE I = (more content not included)... Normal [facility] Comment on above: Performed By: #### C UBLD, PT, CBC, BMP ####[facility] [address] [place] [address] [facility] Complete Blood Count Auto Di ffon 11-10-2024 Basophils (Bld) [#/Vol] 0.0 10*3/uL Normal 0.0-0.2 [facility] Comment on above: Result Comment: PERF ORMED BY: [facility] [place] [address] PATHOLOGIST ALLERGIST IMMUNOLOGIST NIKITA RAMOS M.D. Performed By: #### B MP, CBC, A1C WTH eA, TRIG, PT ####[address] Basophils/100 WBC (Bld) 0.1 % Normal . [facility] Comment on above: Performed By: #### B MP, CBC, A1C WTH eA, TRIG, PT ####[address] Eosinophils (Bld) [#/Vol] 0.0 10*3/uL Normal 0.0-0.45 [facility] Comment on above: Performed By: #### B MP, CBC, A1C WTH eA, TRIG, PT ####[address] Eosinophils/100 WBC (Bld) 0.0 % Normal . [facility] Comment on above: Performed By: #### B MP, CBC, A1C WTH eA, TRIG, PT ####[address] Erythrocyte distribution width (RBC) [Ratio] 15.2 % Normal 11.9-15.3 [facility] Comment on above: Performed By: #### B MP, CBC, A1C WTH eA, TRIG, PT ####[address] Hematocrit (Bld) [Volume fraction] 25.8 % Low 34.0-46.4 [facility] Comment on above: Performed By: #### B MP, CBC, A1C WTH eA, TRIG, PT ####[address] Hemoglobin (Bld) [Mass/Vol] 8.3 g/dL Low 11.8-15.4 [facility] Comment on above: Performed By: #### B MP, CBC, A1C WTH eA, TRIG, PT ####[place] [address] [place] Lymphocytes (Bld) [#/Vol] 0.2 10*3/uL Low 1.00-4.8 [facility] Comment on above: Performed By: #### B MP, CBC, A1C WTH eA, TRIG, PT ####[address] Lymphocytes/100 WBC (Bld) 2.1 % Normal . [facility] Comment on above: Performed By: #### B MP, CBC, A1C WTH eA, TRIG, PT ####[address] MCH (RBC) [Entitic mass] 29.6 pg Normal 24.7-34.3 [facility] Comment on above: Performed By: #### B MP, CBC, A1C WTH eA, TRIG, PT ####[address] MCV (RBC) [Entitic vol] 91.8 fL Normal 80-100 [facility] Comment on above: Performed By: #### B MP, CBC, A1C WTH eA, TRIG, PT ####[address] Mean Corpuscular HGB Conc 32.3 g/dL Normal 32.0-35.0 [facility] Comment on above: Performed By: #### B MP, CBC, A1C WTH eA, TRIG, PT ####[address] Monocytes (Bld) [#/Vol] 0.4 10*3/uL Normal 0.0-0.8 [facility] Comment on above: Performed By: #### B MP, CBC, A1C WTH eA, TRIG, PT ####[address] Monocytes/100 WBC (Bld) 4.2 % Normal . [facility] Comment on above: Performed By: #### B MP, CBC, A1C WTH eA, TRIG, PT ####[address] Neutrophils (Bld) [#/Vol] 9.5 10*3/uL High 1.8-7.7 [facility] Comment on above: Performed By: #### B MP, CBC, A1C WTH eA, TRIG, PT ####[address] Neutrophils/100 WBC (Bld) 93.6 % Normal . [facility] Comment on above: Performed By: #### B MP, CBC, A1C WTH eA, TRIG, PT ####[address] NRBC% 0.1 /100{WBC} Normal 0-0.5 [facility] Comment on above: Performed By: #### B MP, CBC, A1C WTH eA, TRIG, PT ####[address] Platelet mean volume (Bld) [Entitic vol] 8.3 fL Normal 6.3-10.7 [facility] Comment on above: Performed By: #### B MP, CBC, A1C WTH eA, TRIG, PT ####[address] Platelets (Bld) [#/Vol] 186 10*3/uL Normal 150-450 [facility] Comment on above: Performed By: #### B MP, CBC, A1C WTH eA, TRIG, PT ####[address] RBC (Bld) [#/Vol] 2.81 10*6/uL Low 3.60-5.00 [facility] Comment on above: Performed By: #### B MP, CBC, A1C WTH eA, TRIG, PT ####[address] WBC (Bld) [#/Vol] 10.1 10*3/uL Normal 3.8-11.6 [facility] Comment on above: Performed By: #### B MP, CBC, A1C WTH eA, TRIG, PT ####[address] White Blood Count 10.1 [CFU]/mL Normal 3.8-11.6 [facility] Comment on above: Performed By: #### B MP, CBC, A1C WTH eA, TRIG, PT ####[address] Basophils (Bld) [#/Vol] 0.0 10*3/uL Normal 0.0-0.2 [facility] Comment on above: Result Comment: PERF ORMED BY: [facility] [address] [facility] [address] PATHOLOGIST ALLERGIST IMMUNOLOGIST NIKITA RAMOS M.D. Performed By: #### C UBLD, PT, CBC, BMP ####[address] Basophils/100 WBC (Bld) 0.1 % Normal . [facility] Comment on above: Performed By: #### C UBLD, PT, CBC, BMP ####[address] Eosinophils (Bld) [#/Vol] 0.0 10*3/uL Normal 0.0-0.45 [facility] Comment on above: Performed By: #### C UBLD, PT, CBC, BMP ####[address] Eosinophils/100 WBC (Bld) 0.0 % Normal . [facility] Comment on above: Performed By: #### C UBLD, PT, CBC, BMP ####[address] Erythrocyte distribution width (RBC) [Ratio] 15.0 % Normal 11.9-15.3 [facility] Comment on above: Performed By: #### C UBLD, PT, CBC, BMP ####[address] Hematocrit (Bld) [Volume fraction] 25.0 % Low 34.0-46.4 [facility] Comment on above: Performed By: #### C UBLD, PT, CBC, BMP ####[address] Hemoglobin (Bld) [Mass/Vol] 8.0 g/dL Low 11.8-15.4 [facility] Comment on above: Performed By: #### C UBLD, PT, CBC, BMP ####[address] Lymphocytes (Bld) [#/Vol] 0.2 10*3/uL Low 1.00-4.8 [facility] Comment on above: Performed By: #### C UBLD, PT, CBC, BMP ####[address] Lymphocytes/100 WBC (Bld) 1.5 % Normal . [facility] Comment on above: Performed By: #### C UBLD, PT, CBC, BMP ####[address] MCH (RBC) [Entitic mass] 29.9 pg Normal 24.7-34.3 [facility] Comment on above: Performed By: #### C UBLD, PT, CBC, BMP ####[address] MCV (RBC) [Entitic vol] 93.0 fL Normal 80-100 [facility] Comment on above: Performed By: #### C UBLD, PT, CBC, BMP ####[address] Mean Corpuscular HGB Conc 32.1 g/dL Normal 32.0-35.0 [facility] Comment on above: Performed By: #### C UBLD, PT, CBC, BMP ####[address] Monocytes (Bld) [#/Vol] 0.4 10*3/uL Normal 0.0-0.8 [facility] Comment on above: Performed By: #### C UBLD, PT, CBC, BMP ####[address] Monocytes/100 WBC (Bld) 3.6 % Normal . [facility] Comment on above: Performed By: #### C UBLD, PT, CBC, BMP ####[address] Neutrophils (Bld) [#/Vol] 9.5 10*3/uL High 1.8-7.7 [facility] Comment on above: Performed By: #### C UBLD, PT, CBC, BMP ####[address] Neutrophils/100 WBC (Bld) 94.8 % Normal . [facility] Comment on above: Performed By: #### C UBLD, PT, CBC, BMP ####[address] NRBC% 0.0 /100{WBC} Normal 0-0.5 [facility] Comment on above: Performed By: #### C UBLD, PT, CBC, BMP ####[address] Platelet mean volume (Bld) [Entitic vol] 8.1 fL Normal 6.3-10.7 [facility] Comment on above: Performed By: #### C UBLD, PT, CBC, BMP ####[address] Platelets (Bld) [#/Vol] 186 10*3/uL Normal 150-450 [facility] Comment on above: Performed By: #### C UBLD, PT, CBC, BMP ####[address] RBC (Bld) [#/Vol] 2.68 10*6/uL Low 3.60-5.00 [facility] Comment on above: Performed By: #### C UBLD, PT, CBC, BMP ####[address] WBC (Bld) [#/Vol] 10.0 10*3/uL Normal 3.8-11.6 [facility] Comment on above: Performed By: #### C UBLD, PT, CBC, BMP ####[address] [address] [facility] White Blood Count 10.0 [CFU]/mL Normal 3.8-11.6 [facility] Comment on above: Performed By: #### C UBLD, PT, CBC, BMP ####[address] [address] [facility] Dipstick and Microscopicon 0 11-10-2024 Appearance (U) Cloudy Critically abnormal Clear [facility] Comment on above: Order Comment: Name Collection Type:: Jhaveri Catheter Performed By: #### C UU, ADDONUAPLUS ####[address] [address] [facility] Bacteria,Urine 2+ [HPF] Normal None Seen [facility] Comment on above: Order Comment: Name Collection Type:: Jhaveri Catheter Performed By: #### C UU, ADDONUAPLUS ####[address] [address] [facility] Bilirubin,Urine Negative Normal Negative [facility] Comment on above: Order Comment: Name Collection Type:: Jhaveri Catheter Performed By: #### C UU, ADDONUAPLUS ####[address] [address] [facility] Budding Yeast,Urine Rare Normal None Seen [facility] Comment on above: Order Comment: Name Collection Type:: Jhaveri Catheter Result Comment: PERF ORMED BY: [facility] [address] [place] [address] PATHOLOGIST ALLERGIST IMMUNOLOGIST NIKITA RAMOS M.D. Performed By: #### C UU, ADDONUAPLUS ####[address] [address] [facility] Color (U) Light-Brown Critically abnormal Yellow [facility] Comment on above: Order Comment: Name Collection Type:: Jhaveri Catheter Performed By: #### C UU, ADDONUAPLUS ####[place] [address] [place] [address] [facility] Glucose Ql (U) Normal Normal Normal [facility] Comment on above: Order Comment: Name Collection Type:: Jhaveri Catheter Performed By: #### C UU, ADDONUAPLUS ####[address] [address] [place] Hyaline Casts,Urine None Normal 0-8 [facility] Comment on above: Order Comment: Name Collection Type:: Jhaveri Catheter Performed By: #### C UU, ADDONUAPLUS ####[address] [address] [facility] Ketones Ql (U) Negative Normal Negative [facility] Comment on above: Order Comment: Name Collection Type:: Jhaveri Catheter Performed By: #### C UU, ADDONUAPLUS ####[address] [address] [facility] Leukocyte esterase Test strip Ql (U) 2+ Normal Negative [facility] Comment on above: Order Comment: Name Collection Type:: Jhaveri Catheter Performed By: #### C UU, ADDONUAPLUS ####[address] [address] [place] Mucus,Urine Rare Normal [facility] Comment on above: Order Comment: Name Collection Type:: Jhaveri Catheter Performed By: #### C UU, ADDONUAPLUS ####[address] [address] [place] Nitrite,Urine Negative Normal Negative [facility] Comment on above: Order Comment: Name Collection Type:: Jhaveri Catheter Performed By: #### C UU, ADDONUAPLUS ####[address] [address] [place] Occult Blood,Urine 3+ Normal Negative [facility] Comment on above: Order Comment: Name Collection Type:: Jhaveri Catheter Result Comment: PERF ORMED BY: [facility] [address] [place] [address] PATHOLOGIST ALLERGIST IMMUNOLOGIST NIKITA RAMOS M.D. Performed By: #### C UU, ADDONUAPLUS ####[address] [address] [facility] pH (U) 5.5 [pH] Normal 5.0-9.0 [facility] Comment on above: Order Comment: Name Collection Type:: Jhaveri Catheter Performed By: #### C UU, ADDONUAPLUS ####[address] [address] [facility] Protein (U) [Mass/Vol] 30 mg/dL Normal Negative [facility] Comment on above: Order Comment: Name Collection Type:: Jhaveri Catheter Performed By: #### C UU, ADDONUAPLUS ####[address] [address] [facility] RBC,Urine Innumerable Normal 0-4 [facility] Comment on above: Order Comment: Name Collection Type:: Jhaveri Catheter Performed By: #### C UU, ADDONUAPLUS ####[place] [id number] [facility] Specificy [place],Urine 1.015 Normal 1.001-1.03 0 [facility] Comment on above: Order Comment: Name Collection Type:: Jhaveri Catheter Performed By: #### C UU, ADDONUAPLUS ####[place] [id number] [facility] Urobilinogen,Urine Normal Normal Normal [facility] Comment on above: Order Comment: Name Collection Type:: Jhaveri Catheter Performed By: #### C UU, ADDONUAPLUS ####[address] [address] [address] [facility] WBC,Urine 20-49 Normal 0-4 [facility] Comment on above: Order Comment: Name Collection Type:: Jhaveri Catheter Performed By: #### C UU, ADDONUAPLUS ####[address] [address] [facility] ECG 12 lead ECGon 11-10-2024 ECG 12 lead ECG [facility] Main [place] [address] [place] [address] Electrocardiograph Report Signed Patient: Margie Martínez MR#: [id number] 1668 : 1940 Acct:[id number] Age/Sex: 84 / F ADM Date: 11/09/24 Loc: Room: [address] [place] [address] Type: ADM IN Attending Dr: Doe Mendez MD Ordering Provider: Patrick Mari DO Date of Service: 11/10/24 ECG/ECG 12 lead ECG: dyspnea Copies to: Test Reason : Blood Pressure : 93/55 mmHG Vent. Rate : 55 BPM Atrial Rate : 55 BPM P-R Int : 134 ms QRS Dur : 146 ms QT Int : 494 ms P-R-T Axes : 42 -56 65 degrees QTcB Int : 472 ms Sinus bradycardia Right bundle branch block Left anterior fascicular block Bifascicular block Voltage criteria for left ventricular hypertrophy Abnormal ECG When compared with ECG of 10-Nov-2024 00:47, (Unconfirmed) No significant change was found Confirmed by Kenyon Goode ([id number]) on 11/10/2024 12:06:43 PM Referred By: Electronically Signed By: Kenyon Goode Transcribed By: MUS Signed By Kenyon Goode MD 11/10/24 1206 Normal [facility] ECG 12 lead ECG [facility] [place] [address] Electrocardiograph Report Signed Patient: Margie Martínez MR#: [id number] 1668 : 1940 Acct:[id number] Age/Sex: 84 / F ADM Date: 11/09/24 Loc: Room: [address] [place] [address] Type: ADM IN Attending Dr: Doe Mendez MD Ordering Provider: Patrick Mari, Date of Service: 11/11/24 ECG/ECG 12 lead ECG: dyspnea Copies to: Test Reason : Blood Pressure : 128/60 mmHG Vent. Rate : 65 BPM Atrial Rate : 65 BPM P-R Int : 144 ms QRS Dur : 146 ms QT Int : 460 ms P-R-T Axes : 46 -57 75 degrees QTcB Int : 478 ms Normal sinus rhythm Right bundle branch block Left anterior fascicular block Bifascicular block Voltage criteria for left ventricular hypertrophy Abnormal ECG When compared with ECG of 10-Dec-2020 17:40, No significant change was found Confirmed by Kenyon Goode ([id number]) on 11/11/2024 4:30:43 PM Referred By: Electronically Signed By: Kenyon Goode Transcribed By: MUS Signed By Kenyon Goode MD 11/11/24 1630 Normal [facility] echo transthoracicon [facility] echo transthoracic [facility] [place] [address] Echocardiogram Signed Patient: Margie Martínez MR#: [id number] 1668 : 1940 Acct:[id number] Age/Sex: 84 / F ADM Date: 11/09/24 Loc: Room: [address] [place] [address] Type: ADM IN Attending Dr: Doe Mendez MD Ordering Provider: Patrick Mari DO Date of Service: 11/10/24 [facility] echo transthoracic: dyspnea Copies to: MD Patrick Prince DO Margie Kent 11:21 AM Patient Location: : 1940 Gender: Female (MM/DD/YYYY) Age: 84 Years Ordering Physician: Patrick Mari Height: 66 in Weight: 190.259 lb Performed By: LOLY Love BSA: 1.96 m2 BP: 126 / 60 mmHg HR: 60 bpm Reason For Study: dyspnea History: HLD, CKD, AFIB, HTN, DM + -+ Interpretation Summary Ejection Fraction = 55-60%. Mild concentric left ventricular hypertrophy. The left ventricular wall motion is normal. There is left ventricular diastolic dysfunction. The left atrium appears moderately dilated. There is trace tricuspid regurgitation. There is no comparison study available. Procedure/Quality: A two-dimensional transthoracic echocardiogram with color flow, Doppler and injection of contrast agent Definity was performed. The study was technically suboptimal in quality due to ventilator interference . Left Ventricle: The left ventricular size is normal. Mild concentric left ventricular hypertrophy. Ejection Fraction = 55-60%. There is left ventricular diastolic dysfunction. The left ventricular wall motion is normal. Left Atrium: The left atrium appears moderately dilated. Right Atrium: The right atrium appears normal in size. Right Ventricle: The right ventricle is not well visualized. The right ventricle is grossly normal size. Aortic Valve: The aortic valve is mildly calcified. No hemodynamically significant valvular aortic stenosis. No aortic regurgitation is present. Mitral Valve: The mitral valve is normal in structure. No significant mitral valve stenosis. There is no mitral regurgitation noted. Tricuspid Valve: The tricuspid valve is normal in structure. There is trace tricuspid regurgitation. Pulmonic Valve: The pulmonic valve is not well visualized. Arteries: The aortic root is normal size. Pericardium/Pleura: No pericardial effusion seen. IVC/Hepatic Veins: Mildly dilated inferior vena cava. MMode/2D Measurements Calculations IVSd (0.7-1.1 cm): 1.17 cm LVIDd (3.7-5.4 cm): 4.0 cm LVPWd (0.7-1.1 cm): 1.33 cm LVIDs (2.3-3.6 cm): 2.7 cm LA dimension (2.3-4.0 cm): 3.5 Ao root diam (2.0-3.2 cm): 3.4 cm cm FS: 31.2 % Ao root area: 9.3 cm2 EDV(Teich): 68.8 ml LVOT diam: 1.97 cm ESV(Teich): 27.8 ml LVOT area: 3.0 cm2 EF(Teich): 59.6 % LAV(MOD-sp2): 88.1 ml LAV(MOD-sp4): 76.1 ml LA A2 area: 27.8 cm2 LA A4 area: 26.9 cm2 LA length (vol): 7.5 cm LA vol: 84.4 ml LA vol index: 43.1 ml/m2 Doppler Measurements Calculations MV E max clement: 89.2 cm/sec Ao V2 max: 205.0 cm/sec MV A max clement: 116.4 cm/sec Ao max P.8 mmHg MR max clement: 265.6 cm/sec Ao mean P.0 mmHg MV V2 VTI: 47.0 cm Ao V2 mean: 131.0 cm/sec MV P1/2t: 88.3 msec Ao V2 VTI: 42.1 cm MV dec time: 0.26 sec NANCI(I,D): 1.87 cm2 MV dec slope: 333.1 cm/sec?? NANCI(V,D): 1.82 cm2 E/E' lat: 13.4 E/E' med: 18.6 TV max P.0 mmHg LV V1 max: 123.0 cm/sec TR max clement: 263.7 cm/sec LV V1 max P.1 mmHg TR max P.8 mmHg LV V1 mean: 76.6 cm/sec RAP systole: 15.0 mmHg LV V1 mean P.0 mmHg LV V1 VTI: 25.9 cm + + + + + --+ + : Electronically : : : : signed by: Kenyon : : : : Rupa : : : : on: 11/10/2024, : : : : 2:18 PM : + --+ + Transcribed By: HERLINDA Performed At: 11/10/24 1121 Signed By: Kenyon Goode MD 11/10/24 1418 Normal [facility] Glucose Poct Glucometerson 0 11-10-2024 Commemt1 Glu2: Cleaned Meter Normal [facility] Comment on above: Result Comment: PERF ORMED BY: [place] [address] PATHOLOGIST ALLERGIST IMMUNOLOGIST NIKITA RAMOS M.D. Performed By: #### G LULS ####Point of Care testing, Glucose [Mass/Vol] 137 mg/dL Normal [facility] Comment on above: Result Comment: [place] om Glucose Reference Range is dependent on time and content of last meal. Glucose of more than 200 mg/dL in a nonstressed, ambulatory subject supports the diagnosis of Diabetes Mellitus. Performed By: #### G LULS ####Point of Care testing, Commemt1 Glu2: Cleaned Meter Normal [facility] Comment on above: Result Comment: PERF ORMED BY: [address] [place] [address] PATHOLOGIST ALLERGIST IMMUNOLOGIST NIKITA RAMOS M.D. Performed By: #### G LULS #### Point of Care testing , Glucose [Mass/Vol] 153 mg/dL Normal [facility] Comment on above: Result Comment: [place] [facility] Glucose Reference Range is dependent on time and content of last meal. Glucose of more than 200 mg/dL in a nonstressed, ambulatory subject supports the diagnosis of Diabetes Mellitus. Performed By: #### G LULS #### Point of Care testing , Glucose [Mass/Vol] 177 mg/dL Normal [facility] Comment on above: Result Comment: [place] om Glucose Reference Range is dependent on time and content of last meal. Glucose of more than 200 mg/dL in a nonstressed, ambulatory subject supports the diagnosis of Diabetes Mellitus. Performed By: #### G LULS #### Point of Care testing , Commemt1 Glu2: Cleaned Meter Normal [facility] Comment on above: Result Comment: PERF ORMED BY: [place] [address] PATHOLOGIST ALLERGIST IMMUNOLOGIST NIKITA RAMOS M.D. Performed By: #### G LULS ####Point of Care testing, Glucose [Mass/Vol] 196 mg/dL Normal [facility] Comment on above: Result Comment: [facility] Glucose Reference Range is dependent on time and content of last meal. Glucose of more than 200 mg/dL in a nonstressed, ambulatory subject supports the diagnosis of Diabetes Mellitus. Performed By: #### G LULS ####Point of Care testing, Gram Stainon 11-10-2024 Microscopic observation Gram stain Nom (Unsp spec) Gram Stain Result 4+ White Blood Cells 4+ Gram Positive Cocci Rare Epithelial Cells PERFORMED BY: [place] [address] PATHOLOGIST ALLERGIST IMMUNOLOGIST NIKITA RAMOS M.D. Normal [facility] Comment on above: Performed By: #### A ERC, ####[facility] [address] [place] [id number] [facility] Legionella Pneumophilia Ag, Uron 11-10-2024 Legionella Pneumophilia Ag, Ur Negative Normal Negative [facility] Comment on above: Order Comment: SOURC E OF SPECIMEN: urine from jhaveri catheter Result Comment: Pres umptive negative for L. pneumophila serogroup 1 antigen in urine, suggesting no recent or current infection. Legionnaires' disease cannot be ruled out since other serogroups and species may also cause disease. Performed at: - [facility] [address] [id number] Manager Star: Jhon Robrets MD, Phone: [phone] PERFORMED BY: [place] [address] PATHOLOGIST ALLERGIST IMMUNOLOGIST NIKITA RAMOS M.D. Performed By: #### U RLEGIONELLA ####[facility] , MRSA - MSSA Nasal PCRon 10-18 MRSA - MSSA Nasal PCR Results called at 0418 on 11/10/24 MRSA Result MRSA Positive MSSA Result MSSA Positive Real-time PCR Test performed by real-time PCR Reference Range Reference Range for all targets = Neg / Not Detected Reference Note 20 ---- Reference Note 26 ---- PERFORMED BY: [facility] [address] [place] [address] PATHOLOGIST ALLERGIST IMMUNOLOGIST NIKITA RAMOS M.D. Normal [facility] Comment on above: Performed By: #### G LUJENNIE #### Point of Care testing , Prothrombin Time INRon 11-10 INR Coag (PPP) [Relative time] 4.1 {INR} Normal [facility] Comment on above: Result [...] with mechanical heart valves: 3 - 4.5 PERFORMED BY: [facility] [address] [place] [address] PATHOLOGIST ALLERGIST IMMUNOLOGIST NIKITA RAMOS M.D. Performed By: #### B MP, CBC, A1C WTH eA, TRIG, PT ####[facility] [address] [place] [address] [facility] PT Coag (PPP) [Time] 44.4 s High 9.0-12.9 [facility] Comment on above: Result Comment: A he matocrit value greater than 55% may lead to inaccurate results in coagulation testing. Patients having hematocrit values >55% require a special collection tube for coagulation studies. Please contact the laboratory at [phone] for redraw instructions. Performed By: #### B MP, CBC, A1C WTH eA, TRIG, PT ####[facility] [place] [id number] [facility] INR Coag (PPP) [Relative time] 4.0 {INR} Normal [facility] Comment on above: Result [...] with mechanical heart valves: 3 - 4.5 PERFORMED BY: [place] [address] PATHOLOGIST ALLERGIST IMMUNOLOGIST NIKITA RAMOS M.D. Performed By: #### C UBLD, PT, CBC, BMP ####[place] [address] [place] [id number] [facility] PT Coag (PPP) [Time] 43.8 s High 9.0-12.9 [facility] Comment on above: Result Comment: A he matocrit value greater than 55% may lead to inaccurate results in coagulation testing. Patients having hematocrit values >55% require a special collection tube for coagulation studies. Please contact the laboratory at [phone] for redraw instructions. Performed By: #### C UBLD, PT, CBC, BMP ####[place] [address] [place] [id number] [facility] Triglycerideson 11-10-2024 Triglyceride [Mass/Vol] 170 mg/dL High 35-149 [facility] Comment on above: Result Comment: TRIG ATP III CLASSIFICATION TRIG less than 150 mg/dL Normal TRIG 150-199 mg/dL Borderline high TRIG 200-500 mg/dL High TRIG greater than 500 mg/dL Very high Standard traceable to the Center for Disease Conrtrol and Prevention (CDC) test method. PERFORMED BY: [place] [address] PATHOLOGIST ALLERGIST IMMUNOLOGIST NIKITA RAMOS M.D. Performed By: #### B MP, CBC, A1C WTH eA, TRIG, PT ####[facility] [id number] [place] [id number] [facility] Urine Cultureon 11-10-2024 Bacteria identified Cx Nom (U) No Growth 2 Days PERFORMED BY: [place] [address] PATHOLOGIST ALLERGIST IMMUNOLOGIST NIKITA RAMOS M.D. Normal [facility] Comment on above: Performed By: #### C UU, ADDONUAPLUS ####[place] [id number] [facility] XR abdomen 1Von 11-10-2024 XR abdomen 1V [facility] [place] [address] XRay Report Signed Patient: Margie Martínez MR#: [id number] 1668 : 1940 Acct:[id number] Age/Sex: 84 / F ADM Date: 11/09/24 Loc: Room: [address] [place] [address] Type: ADM IN Attending Dr: Doe Mendez MD Copies to: DO Doe Augustine MD Ordering Provider: Patrick Mari DO Date of Service: 11/10/24 XR/XR abdomen 1V: OGT placement XR abdomen 1V 11/10/2024 5:34 AM SIGNS AND SYMPTOMS: OGT placement PROTOCOL: Frontal radiograph of the abdomen COMPARISON: None FINDINGS: There is evidence of prior cholecystectomy. The enteric tube tip is in satisfactory position in the left upper quadrant. Atherosclerotic changes are noted in the abdominal aorta. XR/XR abdomen 1V IMPRESSION: Satisfactory positioning of the enteric tube. Impression dictated by: Christiano Lozada M.D. 11/10/2024 9:08 AM Dictation Location: [place] [address] Transcribed By: [facility] 11/10/24 0908 Dictated By: Christiano Lozada II, MD 11/10/24 09 Signed By: 11/10/24 0908 Normal [facility] XR chest 1V portableon 11-10 XR chest 1V portable [facility] [address] [place] [address] [place] [address] XRay Report Signed Patient: Margie Martínez MR#: [id number] 1668 : 1940 Acct:[id number] Age/Sex: 84 / F ADM Date: 11/09/24 Loc: Room: [address] [place] [address] Type: ADM IN Attending Dr: Doe Mendez MD Copies to: DO Doe Augustine MD Ordering Provider: Patrick Mari DO Date of Service: 11/10/24 XR/XR chest 1V portable: vent XR chest 1V portable 11/10/2024 5:34 AM SIGNS AND SYMPTOMS: ET tube and enteric tube placement PROTOCOL: Frontal radiograph of the chest COMPARISON: 11/09/2024 FINDINGS: The trachea is midline. The ET tube and enteric tube are in satisfactory position. Atherosclerotic changes are present thoracic aorta. The heart and mediastinal structures are within normal limits. Airspace opacities are noted in the perihilar regions and at the lung bases bilaterally, worse when compared to the prior exam. The bony thorax is intact. Degenerative changes are noted in the shoulders and thoracic spine with a dextro convex curvature of the thoracic spine. XR/XR chest 1V portable IMPRESSION: Airspace opacities are noted in the perihilar regions and at the lung bases bilaterally, worse when compared to the prior exam. Support tubes are in satisfactory position. Impression dictated by: Christiano Lozada M.D. 11/10/2024 9:07 AM Dictation Location: [place] [address] Transcribed By: [facility] 11/10/24 09 Dictated By: Christiano Lozada II, MD 11/10/[address] Signed By: 11/10/24 0907 Normal [facility] Urine Cultureon 11-07-2024 Bacteria identified Cx Nom (U) <9,000 colonies/ml mixed bacterial skin contaminants 2 Days PERFORMED BY: [address] [address] PATHOLOGIST ALLERGIST IMMUNOLOGIST NIKITA RAMOS M.D. Normal [facility] Comment on above: Performed By: #### C UU ####[facility] [id number] [place] [address] [facility] Urine cultureOrdered By: Glenroy Rai on 11-07-2024 Bacteria identified Cx Nom (U) 2 Days [facility] POCT Protime / INRon 025 INR Coag (PPP) [Relative time] 2.2 {INR} Abnormal 0.8 - 1.2 [facility]OOK[facility] Interpretation and review of laboratory results Abnormal [employer] Erythrocyte distribution wid th Auto (RBC) [Ratio]on 10-22-2024 Erythrocyte distribution width (RBC) [Ratio] Erythrocyte distribution width [Ratio] by Automated count 11.0-15.0 [facility] Erythrocyte distribution width (RBC) [Ratio] 14.2 % 11.0-15.0 [facility] Hematocrit Auto (Bld) [Volum e fraction]on 10-22-2024 Hematocrit (Bld) [Volume fraction] Hematocrit [Volume Fraction] of Blood by Automated count Low 36.0-48.0 [facility] Hematocrit (Bld) [Volume fraction] 34.6 % Low 36.0-48.0 [facility] Hemoglobin [Mass/volume] in Bloodon 10-22-2024 Hemoglobin (Bld) [Mass/Vol] Hemoglobin [Mass/volume] in Blood Low 12.0-16.0 [facility] Hemoglobin (Bld) [Mass/Vol] 10.2 g/dL Low 12.0-16.0 [facility] Leukocytes [#/volume] correc katy for nucleated erythrocytes in Blood by Automated counon 10-22-2024 WBC corrected for nucl RBC Auto (Bld) [#/Vol] Leukocytes [#/volume] corrected for nucleated erythrocytes in Blood by Automated coun 4.0-11.0 [facility] WBC corrected for nucl RBC Auto (Bld) [#/Vol] 6.6 10 3/uL 4.0-11.0 [facility] MCH Auto (RBC) [Entitic mass ]on 10-22-2024 MCH (RBC) [Entitic mass] MCH [Entitic mass] by Automated count 26.7-34.0 [facility] MCH (RBC) [Entitic mass] 29.7 pg 26.7-34.0 [facility] MCHC Auto (RBC) [Mass/Vol]on 10-22-2024 MCHC (RBC) [Mass/Vol] MCHC [Mass/volume] by Automated count Low 29.9-35.2 [facility] MCHC (RBC) [Mass/Vol] 29.5 g/dL Low 29.9-35.2 [facility] MCV Auto (RBC) [Entitic vol] on 10-22-2024 MCV (RBC) [Entitic vol] MCV [Entitic volume] by Automated count High 81.0-99.0 [facility] MCV (RBC) [Entitic vol] 100.9 fL High 81.0-99.0 [facility] Platelet mean volume Auto (B ld) [Entitic vol]on 10-22-2024 Platelet mean volume (Bld) [Entitic vol] Platelet mean volume [Entitic volume] in Blood by Automated count 9.5-13.5 [facility] Platelet mean volume (Bld) [Entitic vol] 10.0 fL 9.5-13.5 [facility] Platelets Auto (Bld) [#/Vol] on 10-22-2024 Platelets (Bld) [#/Vol] Platelets [#/volume] in Blood by Automated count 150-450 [facility] Platelets (Bld) [#/Vol] 197 10 3/uL 150-450 [facility] RBC Auto (Bld) [#/Vol]on RBC (Bld) [#/Vol] Erythrocytes [#/volu me] in Blood by Automated count Low 4.20-5.40 [facility] RBC (Bld) [#/Vol] 3.43 10 6/uL Low 4.20-5.40 [facility] Erythrocyte distribution wid th Auto (RBC) [Ratio]on 09-29-2024 Erythrocyte distribution width (RBC) [Ratio] Erythrocyte distribution width [Ratio] by Automated count 11.0-15.0 [facility] Erythrocyte distribution width (RBC) [Ratio] 14.1 % 11.0-15.0 [facility] Estimated glomerular filtrat ion rate (GFR) non- Americanon 09-29-2024 GFR/1.73 sq M.predicted among non-blacks MDRD (S/P/Bld) [Vol rate/Area] Estimated glomerular filtration rate (GFR) non- Low >=60 mL/min/1.7 3m 2 [facility] GFR/1.73 sq M.predicted among non-blacks MDRD (S/P/Bld) [Vol rate/Area] 18 mL/min/{1.73_m2} Low >=60 mL/min/1.7 3m 2 [facility] Hematocrit Auto (Bld) [Volum e fraction]on 09-29-2024 Hematocrit (Bld) [Volume fraction] Hematocrit [Volume Fraction] of Blood by Automated count Low 36.0-48.0 [facility] Hematocrit (Bld) [Volume fraction] 32.8 % Low 36.0-48.0 [facility] Hemoglobin [Mass/volume] in Bloodon 09-29-2024 Hemoglobin (Bld) [Mass/Vol] Hemoglobin [Mass/volume] in Blood Low 12.0-16.0 [facility] Hemoglobin (Bld) [Mass/Vol] 9.7 g/dL Low 12.0-16.0 [facility] Iron binding capacity [Mass/ volume] in Serum or Plasmaon 09-29-2024 Iron binding capacity [Mass/Vol] Iron binding capacity [Mass/volume] in Serum or Plasma Low 250.0-450. 0 [facility] Iron binding capacity [Mass/Vol] 222.0 ug/dL Low 250.0-450. 0 [facility] Iron saturation [Mass Fracti on] in Serum or Plasmaon 09-29-2024 Iron saturation [Mass fraction] Iron saturation [Mass Fraction] in Serum or Plasma [facility] Iron saturation [Mass fraction] 27.9 % [facility] Laboratory - Chemistry and C hemistry - challengeon 09-29-2024 Albumin [Mass/Vol] 3.0 g/dL Low 3.4-5.0 [facility] Calcium [Mass/Vol] 9.0 mg/dL 8.5-10.1 [facility] Chloride [Moles/Vol] 107 mmol/L 98-107 [facility] CO2 [Moles/Vol] 31.4 mmol/L 21.0-32.0 [facility] Creatinine [Mass/Vol] 2.55 mg/dL High 0.55-1.02 [facility] Ferritin [Mass/Vol] 197.0 ng/mL 8.0-252.0 [facility] GFR/1.73 sq M.predicted MDRD (S/P/Bld) [Vol rate/Area] 22 mL/min/{1.73_m2} Low >=60 mL/min/1.7 3m 2 [facility] Glucose [Mass/Vol] 100 mg/dL 74-106 [facility] Iron [Mass/Vol] 62.0 ug/dL 50.0-170.0 [facility] Potassium [Moles/Vol] 4.4 mmol/L 3.5-5.1 [facility] Sodium [Moles/Vol] 142 mmol/L 136-145 [facility] Urate [Mass/Vol] 6.8 mg/dL High 2.6-6.0 [facility] Urea nitrogen [Mass/Vol] 57.0 mg/dL High 7.0-18.0 [facility] Urea nitrogen/Creatinine [Mass ratio] 22.4 mg/mg [facility] Leukocytes [#/volume] correc katy for nucleated erythrocytes in Blood by Automated counon 09-29-2024 WBC corrected for nucl RBC Auto (Bld) [#/Vol] Leukocytes [#/volume] corrected for nucleated erythrocytes in Blood by Automated coun Low 4.0-11.0 [facility] WBC corrected for nucl RBC Auto (Bld) [#/Vol] 3.8 10 3/uL Low 4.0-11.0 [facility] MCH Auto (RBC) [Entitic mass ]on 09-29-2024 MCH (RBC) [Entitic mass] MCH [Entitic mass] by Automated count 26.7-34.0 [facility] MCH (RBC) [Entitic mass] 30.1 pg 26.7-34.0 [facility] MCHC Auto (RBC) [Mass/Vol]on 09-29-2024 MCHC (RBC) [Mass/Vol] MCHC [Mass/volume] by Automated count Low 29.9-35.2 [facility] MCHC (RBC) [Mass/Vol] 29.6 g/dL Low 29.9-35.2 [facility] MCV Auto (RBC) [Entitic vol] on 09-29-2024 MCV (RBC) [Entitic vol] MCV [Entitic volume] by Automated count High 81.0-99.0 [facility] MCV (RBC) [Entitic vol] 101.9 fL High 81.0-99.0 [facility] No Panel Informationon 09-29 25-Hydroxy Vitamin D Total 17.6 ng/mL [facility] Comment on above: <20 ng/mL Vit D defi cient20-<30 ng/mL Vit D wupdrmexdvgm25-101 ng/mL Vit D sufficient>100 ng/mL Potential Toxicity Parathyroid Hormone (Intact) 80 pg/mL Abnormal 15-65 [facility] Comment on above: Performed at: [facility] [address] [id number] Director: Deshaun Hunter PhD, Phone: [phone] Phosphorus Level 3.9 mg/dL 2.6-4.7 [facility] Platelet mean volume Auto (B ld) [Entitic vol]on 09-29-2024 Platelet mean volume (Bld) [Entitic vol] Platelet mean volume [Entitic volume] in Blood by Automated count 9.5-13.5 [facility] Platelet mean volume (Bld) [Entitic vol] 10.3 fL 9.5-13.5 [facility] Platelets Auto (Bld) [#/Vol] on 09-29-2024 Platelets (Bld) [#/Vol] Platelets [#/volume] in Blood by Automated count 150-450 [facility] Platelets (Bld) [#/Vol] 165 10 3/uL 150-450 [facility] RBC Auto (Bld) [#/Vol]on RBC (Bld) [#/Vol] Erythrocytes [#/volu me] in Blood by Automated count Low 4.20-5.40 [facility] RBC (Bld) [#/Vol] 3.22 10 6/uL Low 4.20-5.40 [facility] Serum or plasma anion gap de terminationon 09-29-2024 Anion gap [Moles/Vol] Serum or plasma an ion gap determination [facility] Anion gap [Moles/Vol] 8.0 mmol/L [facility] POCT Protime / INRon 025 INR Coag (PPP) [Relative time] 1.9 {INR} Abnormal 0.8 - 1.2 [facility] Interpretation and review of laboratory results [facility]normal [facility] POCT Protime / INRon 025 INR Coag (PPP) [Relative time] 3.1 {INR} Abnormal 0.8 - 1.2 [facility] Interpretation and review of laboratory results Abnormal [facility] [employer] [facility] Erythrocyte distribution wid th Auto (RBC) [Ratio]on 09-02-2024 Erythrocyte distribution width (RBC) [Ratio] Erythrocyte distribution width [Ratio] by Automated count High 11.0-15.0 [facility] Erythrocyte distribution width (RBC) [Ratio] 15.1 % High 11.0-15.0 [facility] Hematocrit Auto (Bld) [Volum e fraction]on 09-02-2024 Hematocrit (Bld) [Volume fraction] Hematocrit [Volume Fraction] of Blood by Automated count Low 36.0-48.0 [facility] Hematocrit (Bld) [Volume fraction] 33.0 % Low 36.0-48.0 [facility] Hemoglobin [Mass/volume] in Bloodon 09-02-2024 Hemoglobin (Bld) [Mass/Vol] Hemoglobin [Mass/volume] in Blood Low 12.0-16.0 [facility] Hemoglobin (Bld) [Mass/Vol] 10.1 g/dL Low 12.0-16.0 [facility] Leukocytes [#/volume] correc katy for nucleated erythrocytes in Blood by Automated counon 09-02-2024 WBC corrected for nucl RBC Auto (Bld) [#/Vol] Leukocytes [#/volume] corrected for nucleated erythrocytes in Blood by Automated coun 4.0-11.0 [facility] WBC corrected for nucl RBC Auto (Bld) [#/Vol] 4.9 10 3/uL 4.0-11.0 [facility] MCH Auto (RBC) [Entitic mass ]on 09-02-2024 MCH (RBC) [Entitic mass] MCH [Entitic mass] by Automated count 26.7-34.0 [facility] MCH (RBC) [Entitic mass] 30.2 pg 26.7-34.0 [facility] MCHC Auto (RBC) [Mass/Vol]on 09-02-2024 MCHC (RBC) [Mass/Vol] MCHC [Mass/volume] by Automated count 29.9-35.2 [facility] MCHC (RBC) [Mass/Vol] 30.6 g/dL 29.9-35.2 [facility] MCV Auto (RBC) [Entitic vol] on 09-02-2024 MCV (RBC) [Entitic vol] MCV [Entitic volume] by Automated count 81.0-99.0 [facility] MCV (RBC) [Entitic vol] 98.8 fL 81.0-99.0 [facility] Platelet mean volume Auto (B ld) [Entitic vol]on 09-02-2024 Platelet mean volume (Bld) [Entitic vol] Platelet mean volume [Entitic volume] in Blood by Automated count 9.5-13.5 [facility] Platelet mean volume (Bld) [Entitic vol] 9.8 fL 9.5-13.5 [facility] Platelets Auto (Bld) [#/Vol] on 09-02-2024 Platelets (Bld) [#/Vol] Platelets [#/volume] in Blood by Automated count 150-450 [facility] Platelets (Bld) [#/Vol] 216 10 3/uL 150-450 [facility] RBC Auto (Bld) [#/Vol]on RBC (Bld) [#/Vol] Erythrocytes [#/volu me] in Blood by Automated count Low 4.20-5.40 [facility] RBC (Bld) [#/Vol] 3.34 10 6/uL Low 4.20-5.40 [facility] CT abdomen pelvis wo conon 0 09-01-2024 CT abdomen pelvis wo con [facility] Main [place] [address] [place] [address] CT Scan Report Signed Patient: Margie Martínez MR#: [id number] : 1940 Acct:[id number] Age/Sex: 84 / F ADM Date: 09/01/24 Loc: [facility] Room: Type: [facility] Attending Dr: Rin Ramirez MD Copies [...] Urias Jr., D.OAzar09/01/2024 10:59 AM Dictation Location: [place] [address] Transcribed By: [facility] 09/01/24 1059 Dictated By: Kj Urias Jr, DO 09/01/24 1056 Signed By: 09/01/24 1059 Normal [facility] COMPLETE BLOOD COUNTon 08-25 Erythrocyte distribution width (RBC) [Ratio] 16.8 % High 11.5-15.0 [facility] Comment on above: Performed By: #### C BC, CMP, 60867-4, , THYR #### [facility] ([id number]) [address], [address] [place] [address] Hematocrit (Bld) [Volume fraction] 32.8 % Low 35-47 [facility] Comment on above: Performed By: #### C BC, CMP, 38167-4, , THYR #### [facility] ([id number]) [address] [place] [address] Hemoglobin (Bld) [Mass/Vol] 10.6 g/dL Low 11.7-15.5 [facility] Comment on above: Performed By: #### C BC, CMP, 40843-8, , THYR #### [facility] ([id number]) [address], [address] [place] [address] MCH (RBC) [Entitic mass] 30.4 pg Normal 27-34 [facility] Comment on above: Performed By: #### C BC, CMP, 53314-5, , THYR #### [facility] ([id number]) [address], [address] [place] [address] MCHC (RBC) [Mass/Vol] 32.3 g/dL Normal 32-36 [facility] Comment on above: Performed By: #### C BC, CMP, 07322-7, , THYR #### [facility] ([id number]) [address], [address] [place] [address] MCV (RBC) [Entitic vol] 94 fL Normal 80-100 [facility] Comment on above: Performed By: #### Thuy BC, CMP, 41577-0, , THYR #### [facility] ([id number]) [address], [address] [place] [address] Platelet mean volume (Bld) [Entitic vol] 7.9 fL Normal 7-12 [facility] Comment on above: Performed By: #### Thuy BC, CMP, 54627-6, , THYR #### [facility] ([id number]) [address], [address] [place] [address] Platelets (Bld) [#/Vol] 222 10*3/uL Normal 150-450 [facility] Comment on above: Performed By: #### Thuy BC, CMP, 94348-3, , THYR #### [facility] ([id number]) [address], [address] [place] [address] RBC COUNT 3.48 X10E12/L Low 3.80-5.20 [facility] Comment on above: Performed By: #### Thuy BC, CMP, 23107-2, , THYR #### [facility] ([id number]) [address], [address] [place] [address] WBC (Bld) [#/Vol] 5.7 10*3/uL Normal 4.0-11.0 [facility] Comment on above: Performed By: #### Thuy BC, CMP, 86951-2, , THYR #### [facility] ([id number]) [address], [address] [place] [address] COMPREHENSIVE METABOLIC PANE N[place]un 08-25-2024 Albumin [Mass/Vol] 3.7 g/dL Normal 3.2-5.3 [facility] Comment on above: Performed By: #### C SHARLA, [facility], 44484-0, , THYR #### [facility] ([id number]) [address], [address] [place] [address] ALP [Catalytic activity/Vol] 97 U/L Normal 39-130 [facility] Comment on above: Performed By: #### C BC, CMP, 16972-0, , THYR #### [facility] ([id number]) [address], [address] [place] [address] ALT [Catalytic activity/Vol] 9 U/L Normal 0-31 [facility] Comment on above: Performed By: #### C BC, CMP, 40877-1, , THYR #### [facility] ([id number]) [address], [address] [place] [address] Anion gap [Moles/Vol] 12 mmol/L Normal 5-15 [facility] Comment on above: Performed By: #### C SHARLA, [facility], 67836-2, , THYR #### [facility] ([id number]) [address], [address] [place] [address] AST [Catalytic activity/Vol] 10 U/L Normal 0-41 [facility] Comment on above: Performed By: #### C BC, [facility], 67146-3, , THYR #### [facility] ([id number]) [address], [address] [place] [address] Bilirubin [Mass/Vol] 0.3 mg/dL Normal 0.3-1.2 [facility] Comment on above: Performed By: #### C BC, CMP, 22977-7, , THYR #### [facility] ([id number]) [address], [address] [place] [address] Calcium [Mass/Vol] 9.1 mg/dL Normal 8.5-10.5 [facility] Comment on above: Performed By: #### C SHARLA [facility], 65113-7, , THYR #### [facility] ([id number]) [address] [place] [address] Chloride [Moles/Vol] 104 mmol/L Normal 98-109 [facility] Comment on above: Performed By: #### Thuy MAGDALENO, [facility], , , THYR #### [facility] ([id number]) [address], [address] [place] [address] CO2 [Moles/Vol] 26 mmol/L Normal 22-32 [facility] Comment on above: Performed By: #### Thuy MAGDALENO [facility], , , THYR #### [facility] ([id number]) [address] [place] [address] Creatinine [Mass/Vol] 2.93 mg/dL High 0.40-1.00 [facility] Comment on above: Result Comment: METH OD TRACEABLE TO IDMS STANDARD Performed By: #### Thuy MAGDALENO [facility], , , THYR #### [facility] ([id number]) [address], [address] [place] [address] GFR/1.73 sq M.predicted among non-blacks MDRD (S/P/Bld) [Vol rate/Area] 15 mL/min/{1.73_m2} Low >59 [facility] Comment on above: Result Comment: Reported eGFR is based on the CKD-EPI 2020 equation that does not use a race coefficient. Performed By: #### C SHARLA, [facility], 94816-5, , THYR #### [facility] ([id number]) [address], [address] [place] [address] Glucose [Mass/Vol] 83 mg/dL Normal 65-99 [facility] Comment on above: Performed By: #### Thuy BC, [facility], 68276-0, , THYR #### [facility] ([id number]) [address], [address] [place] [address] Potassium [Moles/Vol] 4.4 mmol/L Normal 3.5-5.0 [facility] Comment on above: Performed By: #### Thuy BC, CMP, 95315-1, , THYR #### [facility] ([id number]) [address], [address] [place] [address] Protein [Mass/Vol] 6.5 g/dL Normal 6.0-8.0 [facility] Comment on above: Performed By: #### Thuy MAGDALENO, [facility], 20646-0, , THYR #### [facility] ([id number]) [address], [address] [place] [address] Sodium [Moles/Vol] 142 mmol/L Normal 134-146 [facility] Comment on above: Performed By: #### Thuy MAGDALENO, [facility], 96739-3, , THYR #### [facility] ([id number]) [address], [address] [place] [address] Urea nitrogen [Mass/Vol] 48 mg/dL High 5-27 [facility] Comment on above: Performed By: #### Thuy BC, CMP, 41652-8, , THYR #### [facility] ([id number]) [address], [address] [place] [address] Lipid 1996 panelon 5 Cholesterol [Mass/Vol] 100 mg/dL Low 150-200 [facility] Comment on above: Performed By: #### Thuy BC, CMP, 25676-6, , THYR #### [facility] ([id number]) [address], [address] [place] [address] Cholesterol in HDL [Mass/Vol] 37 mg/dL Low >39 [facility] Comment on above: Result Comment: HDL <40 mg/dL - High Risk HDL > or = 40mg/dL- Desirable HDL >60 mg/dL - Negative Risk Performed By: #### Thuy BC, [facility], 06939-8, , THYR #### [facility] ([id number]) [address], [address] [place] [address] Cholesterol in LDL [Mass/Vol] 38 mg/dL Normal <130 [facility] Comment on above: Result Comment: LDL <100 mg/dL - Desirable LDL >160 mg/dL - High Risk Performed By: ###Sangeeta MAGDALENO, [facility], 68728-3, , THYR #### [facility] ([id number]) [address], [address] [place] [address] Cholesterol in VLDL [Mass/Vol] 25 mg/dL Normal 0-30 [facility] Comment on above: Performed By: ###Sangeeta Daley BC, [facility], 44328-3, , THYR #### [facility] ([id number]) [address], [address] [place] [address] CHOLESTEROL:HDL 2.7 Normal 1.0-5.0 [facility] Comment on above: Performed By: ###Sangeeta Daley BC, [facility], 20448-8, , THYR #### [facility] ([id number]) [address], [address] [place] [address] Triglyceride [Mass/Vol] 127 mg/dL Normal 27-150 [facility] Comment on above: Performed By: #### C BC, [facility], 81679-1, 73535-8, THYR #### [facility] ([id number]) [address], [address] [place] [address] MAGNESIUMon 08-25-2024 Magnesium [Mass/Vol] 2.4 mg/dL Normal 1.8-2.6 [facility] Comment on above: Performed By: #### C BC, [facility], 37461-0, , THYR #### [facility] ([id number]) [address], [address] [place] [address] THYROID PROFILEon 08-25-2024 Free T4 [Mass/Vol] 1.29 ng/dL Normal 0.61-1.60 [facility] Comment on above: Performed By: #### Thuy , [facility], 90097-7, , THYR #### [facility] ([id number]) [address], [address] [place] [address] TSH 3.65 uIU/mL Normal 0.49-4.67 [facility] Comment on above: Performed By: #### C BC, [facility], 23287-7, , THYR #### [facility] ([id number]) [address], [address] [place] [address] POCT Protime / INRon 08-24- 025 INR Coag (PPP) [Relative time] 3.7 {INR} Abnormal 0.8 - 1.2 [facility] Interpretation and review of laboratory results Abnormal [facility] POCT Protime / INRon 08-05- 025 INR Coag (PPP) [Relative time] 3.5 {INR} Abnormal 0.8 - 1.2 [facility] Interpretation and review of laboratory results Abnormal [facility] Erythrocyte distribution wid th Auto (RBC) [Ratio]on 08-04-2024 Erythrocyte distribution width (RBC) [Ratio] Erythrocyte distribution width [Ratio] by Automated count High 11.0-15.0 [facility] Estimated glomerular filtrat ion rate (GFR) non- Americanon 08-04-2024 GFR/1.73 sq M.predicted among non-blacks MDRD (S/P/Bld) [Vol rate/Area] Estimated glomerular filtration rate (GFR) non- Low >=60 mL/min/1.7 3m 2 [facility] Hematocrit Auto (Bld) [Volum e fraction]on 08-04-2024 Hematocrit (Bld) [Volume fraction] Hematocrit [Volume Fraction] of Blood by Automated count Low 36.0-48.0 [facility] Hemoglobin [Mass/volume] in Bloodon 08-04-2024 Hemoglobin (Bld) [Mass/Vol] Hemoglobin [Mass/volume] in Blood Low 12.0-16.0 [facility] Laboratory - Chemistry and C hemistry - challengeon 08-04-2024 Albumin [Mass/Vol] 3.2 g/dL Low 3.4-5.0 [facility] Calcium [Mass/Vol] 8.9 mg/dL 8.5-10.1 [facility] Chloride [Moles/Vol] 105 mmol/L 98-107 [facility] CO2 [Moles/Vol] 29.7 mmol/L 21.0-32.0 [facility] Creatinine [Mass/Vol] 2.73 mg/dL High 0.55-1.02 [facility] GFR/1.73 sq M.predicted MDRD (S/P/Bld) [Vol rate/Area] 20 mL/min/{1.73_m2} Low >=60 mL/min/1.7 3m 2 [facility] Glucose [Mass/Vol] 122 mg/dL High 74-106 [facility] Potassium [Moles/Vol] 4.6 mmol/L 3.5-5.1 [facility] Sodium [Moles/Vol] 141 mmol/L 136-145 [facility] Urea nitrogen [Mass/Vol] 43.0 mg/dL High 7.0-18.0 [facility] Urea nitrogen/Creatinine [Mass ratio] 15.8 mg/mg [facility] Leukocytes [#/volume] correc katy for nucleated erythrocytes in Blood by Automated counon 08-04-2024 WBC corrected for nucl RBC Auto (Bld) [#/Vol] Leukocytes [#/volume] corrected for nucleated erythrocytes in Blood by Automated coun 4.0-11.0 [facility] MCH Auto (RBC) [Entitic mass ]on 08-04-2024 MCH (RBC) [Entitic mass] MCH [Entitic mass] by Automated count 26.7-34.0 [facility] MCHC Auto (RBC) [Mass/Vol]on 08-04-2024 MCHC (RBC) [Mass/Vol] MCHC [Mass/volume] by Automated count 29.9-35.2 [facility] MCV Auto (RBC) [Entitic vol] on 08-04-2024 MCV (RBC) [Entitic vol] MCV [Entitic volume] by Automated count 81.0-99.0 [facility] No Panel Informationon 08-04 Phosphorus Level 3.6 mg/dL 2.6-4.7 [facility] Platelet mean volume Auto (B ld) [Entitic vol]on 08-04-2024 Platelet mean volume (Bld) [Entitic vol] Platelet mean volume [Entitic volume] in Blood by Automated count 9.5-13.5 [facility] Platelets Auto (Bld) [#/Vol] on 08-04-2024 Platelets (Bld) [#/Vol] Platelets [#/volume] in Blood by Automated count 150-450 [facility] RBC Auto (Bld) [#/Vol]on RBC (Bld) [#/Vol] Erythrocytes [#/volu me] in Blood by Automated count Low 4.20-5.40 [facility] Serum or plasma anion gap de terminationon 08-04-2024 Anion gap [Moles/Vol] Serum or plasma an ion gap determination [facility] Erythrocyte distribution wid th Auto (RBC) [Ratio]on 07-20-2024 Erythrocyte distribution width (RBC) [Ratio] Erythrocyte distribution width [Ratio] by Automated count High 11.0-15.0 [facility] Estimated glomerular filtrat ion rate (GFR) non- Americanon 07-20-2024 GFR/1.73 sq M.predicted among non-blacks MDRD (S/P/Bld) [Vol rate/Area] Estimated glomerular filtration rate (GFR) non- Low >=60 mL/min/1.7 3m 2 [facility] Hematocrit Auto (Bld) [Volum e fraction]on 07-20-2024 Hematocrit (Bld) [Volume fraction] Hematocrit [Volume Fraction] of Blood by Automated count Low 36.0-48.0 [facility] Hemoglobin [Mass/volume] in Bloodon 07-20-2024 Hemoglobin (Bld) [Mass/Vol] Hemoglobin [Mass/volume] in Blood Low 12.0-16.0 [facility] Iron binding capacity [Mass/ volume] in Serum or Plasmaon 07-20-2024 Iron binding capacity [Mass/Vol] Iron binding capacity [Mass/volume] in Serum or Plasma Low 250.0-450. 0 [facility] Iron saturation [Mass Fracti on] in Serum or Plasmaon 07-20-2024 Iron saturation [Mass fraction] Iron saturation [Mass Fraction] in Serum or Plasma [facility] Laboratory - Chemistry and C hemistry - challengeon 07-20-2024 Albumin [Mass/Vol] 3.1 g/dL Low 3.4-5.0 [facility] Calcium [Mass/Vol] 8.5 mg/dL 8.5-10.1 [facility] Chloride [Moles/Vol] 107 mmol/L 98-107 [facility] CO2 [Moles/Vol] 33.3 mmol/L High 21.0-32.0 [facility] Creatinine [Mass/Vol] 2.88 mg/dL High 0.55-1.02 [facility] Ferritin [Mass/Vol] 688.0 ng/mL High 8.0-252.0 [facility] GFR/1.73 sq M.predicted MDRD (S/P/Bld) [Vol rate/Area] 19 mL/min/{1.73_m2} Low >=60 mL/min/1.7 3m 2 [facility] Glucose [Mass/Vol] 124 mg/dL High 74-106 [facility] Iron [Mass/Vol] 75.0 ug/dL 50.0-170.0 [facility] Potassium [Moles/Vol] 4.4 mmol/L 3.5-5.1 [facility] Sodium [Moles/Vol] 144 mmol/L 136-145 [facility] Urea nitrogen [Mass/Vol] 33.0 mg/dL High 7.0-18.0 [facility] Urea nitrogen/Creatinine [Mass ratio] 11.5 mg/mg [facility] Leukocytes [#/volume] correc katy for nucleated erythrocytes in Blood by Automated counon 07-20-2024 WBC corrected for nucl RBC Auto (Bld) [#/Vol] Leukocytes [#/volume] corrected for nucleated erythrocytes in Blood by Automated coun 4.0-11.0 [facility] MCH Auto (RBC) [Entitic mass ]on 07-20-2024 MCH (RBC) [Entitic mass] MCH [Entitic mass] by Automated count 26.7-34.0 [facility] MCHC Auto (RBC) [Mass/Vol]on 07-20-2024 MCHC (RBC) [Mass/Vol] MCHC [Mass/volume] by Automated count Low 29.9-35.2 [facility] MCV Auto (RBC) [Entitic vol] on 07-20-2024 MCV (RBC) [Entitic vol] MCV [Entitic volume] by Automated count High 81.0-99.0 [facility] No Panel Informationon 07-20 Parathyroid Hormone (Intact) 101 pg/mL Abnormal 15-65 [facility] Comment on above: Performed at: [facility] [address] [id number] Director: Deshaun Hunter PhD, Phone: [phone] Phosphorus Level 4.0 mg/dL 2.6-4.7 [facility] Platelet mean volume Auto (B ld) [Entitic vol]on 07-20-2024 Platelet mean volume (Bld) [Entitic vol] Platelet mean volume [Entitic volume] in Blood by Automated count 9.5-13.5 [facility] Platelets Auto (Bld) [#/Vol] on 07-20-2024 Platelets (Bld) [#/Vol] Platelets [#/volume] in Blood by Automated count 150-450 [facility] RBC Auto (Bld) [#/Vol]on RBC (Bld) [#/Vol] Erythrocytes [#/volu me] in Blood by Automated count Low 4.20-5.40 [facility] Serum or plasma anion gap de terminationon 07-20-2024 Anion gap [Moles/Vol] Serum or plasma an ion gap determination [facility] POCT Protime / INRon 025 INR Coag (PPP) [Relative time] 3.1 {INR} Abnormal 0.8 - 1.2 [employer] [facility] Interpretation and review of laboratory results Abnormal [facility] POCT Protime / INRon 025 INR Coag (PPP) [Relative time] 2.6 {INR} Abnormal 0.8 - 1.2 [employer] Interpretation and review of laboratory results Abnormal [facility] HbA1c HPLC (Bld) [Mass fract ion]on 06-14-2024 HbA1c (Bld) [Mass fraction] Hemoglobin A1c/Hemoglobin.total in Blood by HPLC [facility] No Panel Informationon 06-14 Bedside Glucose 114 [facility] Erythrocyte distribution wid th Auto (RBC) [Ratio]on 06-10-2024 Erythrocyte distribution width (RBC) [Ratio] Erythrocyte distribution width [Ratio] by Automated count 11.0-15.0 [facility] Estimated glomerular filtrat ion rate (GFR) non- Americanon 06-10-2024 GFR/1.73 sq M.predicted among non-blacks MDRD (S/P/Bld) [Vol rate/Area] Estimated glomerular filtration rate (GFR) non- Low >=60 mL/min/1.7 3m 2 [facility] Hematocrit Auto (Bld) [Volum e fraction]on 06-10-2024 Hematocrit (Bld) [Volume fraction] Hematocrit [Volume Fraction] of Blood by Automated count Low 36.0-48.0 [facility] Hemoglobin [Mass/volume] in Bloodon 06-10-2024 Hemoglobin (Bld) [Mass/Vol] Hemoglobin [Mass/volume] in Blood Low 12.0-16.0 [facility] Iron binding capacity [Mass/ volume] in Serum or Plasmaon 06-10-2024 Iron binding capacity [Mass/Vol] Iron binding capacity [Mass/volume] in Serum or Plasma Low 250.0-450. 0 [facility] Iron saturation [Mass Fracti on] in Serum or Plasmaon 06-10-2024 Iron saturation [Mass fraction] Iron saturation [Mass Fraction] in Serum or Plasma [facility] Laboratory - Chemistry and C hemistry - challengeon 06-10-2024 Albumin [Mass/Vol] 2.9 g/dL [facility] Calcium [Mass/Vol] 8.8 mg/dL [facility] Chloride [Moles/Vol] 106 mmol/L [facility] CO2 [Moles/Vol] 35.1 mmol/L [facility] Creatinine [Mass/Vol] 2.18 mg/dL [facility] Glucose [Mass/Vol] 111 mg/dL [facility] Potassium [Moles/Vol] 3.7 mmol/L [facility] Sodium [Moles/Vol] 146 mmol/L [facility] Urea nitrogen [Mass/Vol] 38.0 mg/dL [facility] Albumin [Mass/Vol] 2.9 g/dL Low 3.4-5.0 [facility] Calcium [Mass/Vol] 8.8 mg/dL 8.5-10.1 [facility] Chloride [Moles/Vol] 106 mmol/L 98-107 [facility] CO2 [Moles/Vol] 35.1 mmol/L High 21.0-32.0 [facility] Creatinine [Mass/Vol] 2.18 mg/dL High 0.55-1.02 [facility] Ferritin [Mass/Vol] 49.0 ng/mL 8.0-252.0 [facility] GFR/1.73 sq M.predicted MDRD (S/P/Bld) [Vol rate/Area] 26 mL/min/{1.73_m2} Low >=60 mL/min/1.7 3m 2 [facility] Glucose [Mass/Vol] 111 mg/dL High 74-106 [facility] Iron [Mass/Vol] 48.0 ug/dL Low 50.0-170.0 [facility] Potassium [Moles/Vol] 3.7 mmol/L 3.5-5.1 [facility] Sodium [Moles/Vol] 146 mmol/L High 136-145 [facility] Urea nitrogen [Mass/Vol] 38.0 mg/dL High 7.0-18.0 [facility] Urea nitrogen/Creatinine [Mass ratio] 17.4 mg/mg [facility] Leukocytes [#/volume] correc katy for nucleated erythrocytes in Blood by Automated counon 06-10-2024 WBC corrected for nucl RBC Auto (Bld) [#/Vol] Leukocytes [#/volume] corrected for nucleated erythrocytes in Blood by Automated coun 4.0-11.0 [facility] MCH Auto (RBC) [Entitic mass ]on 06-10-2024 MCH (RBC) [Entitic mass] MCH [Entitic mass] by Automated count 26.7-34.0 [facility] MCHC Auto (RBC) [Mass/Vol]on 06-10-2024 MCHC (RBC) [Mass/Vol] MCHC [Mass/volume] by Automated count Low 29.9-35.2 [facility] MCV Auto (RBC) [Entitic vol] on 06-10-2024 MCV (RBC) [Entitic vol] MCV [Entitic volume] by Automated count 81.0-99.0 [facility] No Panel Informationon 06-10 Estimated GFR (Non- 22 mL/min [facility] Phosphorus Level 3.6 mg/dL [facility] Phosphorus Level 3.6 mg/dL 2.6-4.7 [facility] Platelet mean volume Auto (B ld) [Entitic vol]on 06-10-2024 Platelet mean volume (Bld) [Entitic vol] Platelet mean volume [Entitic volume] in Blood by Automated count 9.5-13.5 [facility] Platelets Auto (Bld) [#/Vol] on 06-10-2024 Platelets (Bld) [#/Vol] Platelets [#/volume] in Blood by Automated count 150-450 [facility] RBC Auto (Bld) [#/Vol]on RBC (Bld) [#/Vol] Erythrocytes [#/volu me] in Blood by Automated count Low 4.20-5.40 [facility] Serum or plasma anion gap de terminationon 06-10-2024 Anion gap [Moles/Vol] Serum or plasma an ion gap determination [facility] Erythrocyte distribution wid th Auto (RBC) [Ratio]on 05-25-2024 Erythrocyte distribution width (RBC) [Ratio] Erythrocyte distribution width [Ratio] by Automated count 11.0-15.0 [facility] Hematocrit Auto (Bld) [Volum e fraction]on 05-25-2024 Hematocrit (Bld) [Volume fraction] Hematocrit [Volume Fraction] of Blood by Automated count Low 36.0-48.0 [facility] Hemoglobin [Mass/volume] in Bloodon 05-25-2024 Hemoglobin (Bld) [Mass/Vol] Hemoglobin [Mass/volume] in Blood Low 12.0-16.0 [facility] Leukocytes [#/volume] correc katy for nucleated erythrocytes in Blood by Automated counon 05-25-2024 WBC corrected for nucl RBC Auto (Bld) [#/Vol] Leukocytes [#/volume] corrected for nucleated erythrocytes in Blood by Automated coun 4.0-11.0 [facility] MCH Auto (RBC) [Entitic mass ]on 05-25-2024 MCH (RBC) [Entitic mass] MCH [Entitic mass] by Automated count 26.7-34.0 [facility] MCHC Auto (RBC) [Mass/Vol]on 05-25-2024 MCHC (RBC) [Mass/Vol] MCHC [Mass/volume] by Automated count Low 29.9-35.2 [facility] MCV Auto (RBC) [Entitic vol] on 05-25-2024 MCV (RBC) [Entitic vol] MCV [Entitic volume] by Automated count High 81.0-99.0 [facility] Platelet mean volume Auto (B ld) [Entitic vol]on 05-25-2024 Platelet mean volume (Bld) [Entitic vol] Platelet mean volume [Entitic volume] in Blood by Automated count 9.5-13.5 [facility] Platelets Auto (Bld) [#/Vol] on 05-25-2024 Platelets (Bld) [#/Vol] Platelets [#/volume] in Blood by Automated count 150-450 [facility] RBC Auto (Bld) [#/Vol]on RBC (Bld) [#/Vol] Erythrocytes [#/volu me] in Blood by Automated count Low 4.20-5.40 [facility] POCT Protime / INRon 024 INR Coag (PPP) [Relative time] 2.3 {INR} Abnormal 0.8 - 1.2 [employer] Interpretation and review of laboratory results Abnormal [employer] [facility] [employer] [facility] Erythrocyte distribution wid th Auto (RBC) [Ratio]on 04-28-2024 Erythrocyte distribution width (RBC) [Ratio] Erythrocyte distribution width [Ratio] by Automated count 11.0-15.0 [facility] Hematocrit Auto (Bld) [Volum e fraction]on 04-28-2024 Hematocrit (Bld) [Volume fraction] Hematocrit [Volume Fraction] of Blood by Automated count Low 36.0-48.0 [facility] Hemoglobin [Mass/volume] in Bloodon 04-28-2024 Hemoglobin (Bld) [Mass/Vol] Hemoglobin [Mass/volume] in Blood Low 12.0-16.0 [facility] Iron binding capacity [Mass/ volume] in Serum or Plasmaon 04-28-2024 Iron binding capacity [Mass/Vol] Iron binding capacity [Mass/volume] in Serum or Plasma 250.0-450. 0 [facility] Iron saturation [Mass Fracti on] in Serum or Plasmaon 04-28-2024 Iron saturation [Mass fraction] Iron saturation [Mass Fraction] in Serum or Plasma [facility] Laboratory - Chemistry and C hemistry - challengeon 04-28-2024 Cobalamin (Vitamin B12) [Mass/Vol] 1140 pg/mL [id number] [facility] Comment on above: Performed at: [address] [id number] Director: Deshaun Hunter PhD, Phone: [phone] Ferritin [Mass/Vol] 58.0 ng/mL 8.0-252.0 [facility] Iron [Mass/Vol] 49.0 ug/dL Low 50.0-170.0 [facility] Leukocytes [#/volume] correc katy for nucleated erythrocytes in Blood by Automated counon 04-28-2024 WBC corrected for nucl RBC Auto (Bld) [#/Vol] Leukocytes [#/volume] corrected for nucleated erythrocytes in Blood by Automated coun 4.0-11.0 [facility] MCH Auto (RBC) [Entitic mass ]on 04-28-2024 MCH (RBC) [Entitic mass] MCH [Entitic mass] by Automated count 26.7-34.0 [facility] MCHC Auto (RBC) [Mass/Vol]on 04-28-2024 MCHC (RBC) [Mass/Vol] MCHC [Mass/volume] by Automated count Low 29.9-35.2 [facility] MCV Auto (RBC) [Entitic vol] on 04-28-2024 MCV (RBC) [Entitic vol] MCV [Entitic volume] by Automated count High 81.0-99.0 [facility] No Panel Informationon 04-28 Folate 13.00 ng/mL 8.60-58.90 [facility] Platelet mean volume Auto (B ld) [Entitic vol]on 04-28-2024 Platelet mean volume (Bld) [Entitic vol] Platelet mean volume [Entitic volume] in Blood by Automated count 9.5-13.5 [facility] Platelets Auto (Bld) [#/Vol] on 04-28-2024 Platelets (Bld) [#/Vol] Platelets [#/volume] in Blood by Automated count 150-450 [facility] RBC Auto (Bld) [#/Vol]on RBC (Bld) [#/Vol] Erythrocytes [#/volu me] in Blood by Automated count Low 4.20-5.40 [facility] Erythrocyte distribution wid th Auto (RBC) [Ratio]on 04-13-2024 Erythrocyte distribution width (RBC) [Ratio] Erythrocyte distribution width [Ratio] by Automated count 11.0-15.0 [facility] Estimated glomerular filtrat ion rate (GFR) non- Americanon 04-13-2024 GFR/1.73 sq M.predicted among non-blacks MDRD (S/P/Bld) [Vol rate/Area] Estimated glomerular filtration rate (GFR) non- Low >=60 mL/min/1.7 2 [facility] Hematocrit Auto (Bld) [Volum e fraction]on 04-13-2024 Hematocrit (Bld) [Volume fraction] Hematocrit [Volume Fraction] of Blood by Automated count Low 36.0-48.0 [facility] Hemoglobin [Mass/volume] in Bloodon 04-13-2024 Hemoglobin (Bld) [Mass/Vol] Hemoglobin [Mass/volume] in Blood Low 12.0-16.0 [facility] Laboratory - Chemistry and C hemistry - challengeon 04-13-2024 Albumin [Mass/Vol] 2.9 g/dL Low 3.4-5.0 [facility] Calcium [Mass/Vol] 9.5 mg/dL 8.5-10.1 [facility] Chloride [Moles/Vol] 106 mmol/L 98-107 [facility] CO2 [Moles/Vol] 32.0 mmol/L 21.0-32.0 [facility] Creatinine [Mass/Vol] 2.22 mg/dL High 0.55-1.02 [facility] GFR/1.73 sq M.predicted MDRD (S/P/Bld) [Vol rate/Area] 26 mL/min/{1.73_m2} Low >=60 mL/min/1.7 3m 2 [facility] Glucose [Mass/Vol] 135 mg/dL High 74-106 [facility] Potassium [Moles/Vol] 4.4 mmol/L 3.5-5.1 [facility] Sodium [Moles/Vol] 146 mmol/L High 136-145 [facility] Urea nitrogen [Mass/Vol] 44.0 mg/dL High 7.0-18.0 [facility] Urea nitrogen/Creatinine [Mass ratio] 19.8 mg/mg [facility] Leukocytes [#/volume] correc katy for nucleated erythrocytes in Blood by Automated counon 04-13-2024 WBC corrected for nucl RBC Auto (Bld) [#/Vol] Leukocytes [#/volume] corrected for nucleated erythrocytes in Blood by Automated coun 4.0-11.0 [facility] MCH Auto (RBC) [Entitic mass ]on 04-13-2024 MCH (RBC) [Entitic mass] MCH [Entitic mass] by Automated count 26.7-34.0 [facility] MCHC Auto (RBC) [Mass/Vol]on 04-13-2024 MCHC (RBC) [Mass/Vol] MCHC [Mass/volume] by Automated count Low 29.9-35.2 [facility] MCV Auto (RBC) [Entitic vol] on 04-13-2024 MCV (RBC) [Entitic vol] MCV [Entitic volume] by Automated count High 81.0-99.0 [facility] No Panel Informationon 04-13 Phosphorus Level 3.7 mg/dL 2.6-4.7 [facility] Platelet mean volume Auto (B ld) [Entitic vol]on 04-13-2024 Platelet mean volume (Bld) [Entitic vol] Platelet mean volume [Entitic volume] in Blood by Automated count 9.5-13.5 [facility] Platelets Auto (Bld) [#/Vol] on 04-13-2024 Platelets (Bld) [#/Vol] Platelets [#/volume] in Blood by Automated count 150-450 [facility] RBC Auto (Bld) [#/Vol]on RBC (Bld) [#/Vol] Erythrocytes [#/volu me] in Blood by Automated count Low 4.20-5.40 [facility] Serum or plasma anion gap de terminationon 04-13-2024 Anion gap [Moles/Vol] Serum or plasma an ion gap determination [facility] Erythrocyte distribution wid th Auto (RBC) [Ratio]on 03-17-2024 Erythrocyte distribution width (RBC) [Ratio] 14.8 % 11.0-15.0 [facility] Erythrocyte distribution width (RBC) [Ratio] Erythrocyte distribution width [Ratio] by Automated count 11.0-15.0 [facility] Hematocrit Auto (Bld) [Volum e fraction]on 03-17-2024 Hematocrit (Bld) [Volume fraction] 32.8 % Low 36.0-48.0 [facility] Hematocrit (Bld) [Volume fraction] Hematocrit [Volume Fraction] of Blood by Automated count Low 36.0-48.0 [facility] Hemoglobin [Mass/volume] in Bloodon 03-17-2024 Hemoglobin (Bld) [Mass/Vol] 9.8 g/dL Low 12.0-16.0 [facility] Hemoglobin (Bld) [Mass/Vol] Hemoglobin [Mass/volume] in Blood Low 12.0-16.0 [facility] Iron binding capacity [Mass/ volume] in Serum or Plasmaon 03-17-2024 Iron binding capacity [Mass/Vol] 225.0 ug/dL Low 250.0-450. 0 [facility] Iron binding capacity [Mass/Vol] Iron binding capacity [Mass/volume] in Serum or Plasma Low 250.0-450. 0 [facility] Iron saturation [Mass Fracti on] in Serum or Plasmaon 03-17-2024 Iron saturation [Mass fraction] 22.7 % [facility] Iron saturation [Mass fraction] Iron saturation [Mass Fraction] in Serum or Plasma [facility] Laboratory - Chemistry and C hemistry - challengeon 03-17-2024 Cobalamin (Vitamin B12) [Mass/Vol] 1103 pg/mL 232-1245 [facility] Comment on above: Performed at: [address] [id number] Director: Deshaun Hunter PhD, Phone: [phone] Ferritin [Mass/Vol] 65.0 ng/mL 8.0-252.0 [facility] Iron [Mass/Vol] 51.0 ug/dL 50.0-170.0 [facility] Magnesium [Mass/Vol] 2.2 mg/dL 1.8-2.4 [facility] Leukocytes [#/volume] correc katy for nucleated erythrocytes in Blood by Automated counon 03-17-2024 WBC corrected for nucl RBC Auto (Bld) [#/Vol] 6.3 10 3/uL 4.0-11.0 [facility] WBC corrected for nucl RBC Auto (Bld) [#/Vol] Leukocytes [#/volume] corrected for nucleated erythrocytes in Blood by Automated coun 4.0-11.0 [facility] MCH Auto (RBC) [Entitic mass ]on 03-17-2024 MCH (RBC) [Entitic mass] 29.5 pg 26.7-34.0 [facility] MCH (RBC) [Entitic mass] MCH [Entitic mass] by Automated count 26.7-34.0 [facility] MCHC Auto (RBC) [Mass/Vol]on 03-17-2024 MCHC (RBC) [Mass/Vol] 29.9 g/dL 29.9-35.2 [facility] MCHC (RBC) [Mass/Vol] MCHC [Mass/volume] by Automated count 29.9-35.2 [facility] MCV Auto (RBC) [Entitic vol] on 03-17-2024 MCV (RBC) [Entitic vol] 98.8 fL 81.0-99.0 [facility] MCV (RBC) [Entitic vol] MCV [Entitic volume] by Automated count 81.0-99.0 [facility] No Panel Informationon 03-17 Folate 11.70 ng/mL 8.60-58.90 [facility] Parathyroid Hormone (Intact) 78 pg/mL Abnormal 15-65 [facility] Comment on above: Performed at: [address] [id number] Director: Deshaun Hunter PhD, Phone: [phone] Platelet mean volume Auto (B ld) [Entitic vol]on 03-17-2024 Platelet mean volume (Bld) [Entitic vol] 10.1 fL 9.5-13.5 [facility] Platelet mean volume (Bld) [Entitic vol] Platelet mean volume [Entitic volume] in Blood by Automated count 9.5-13.5 [facility] Platelets Auto (Bld) [#/Vol] on 03-17-2024 Platelets (Bld) [#/Vol] 179 10 3/uL 150-450 [facility] Platelets (Bld) [#/Vol] Platelets [#/volume] in Blood by Automated count 150-450 [facility] RBC Auto (Bld) [#/Vol]on RBC (Bld) [#/Vol] 3.32 10 6/uL Low 4.20-5.40 [facility] RBC (Bld) [#/Vol] Erythrocytes [#/volu me] in Blood by Automated count Low 4.20-5.40 [facility] Erythrocyte distribution wid th Auto (RBC) [Ratio]on 02-23-2024 Erythrocyte distribution width (RBC) [Ratio] 15.1 % High 11.0-15.0 [facility] Erythrocyte distribution width (RBC) [Ratio] Erythrocyte distribution width [Ratio] by Automated count High 11.0-15.0 [facility] Estimated glomerular filtrat ion rate (GFR) non- Americanon 02-23-2024 GFR/1.73 sq M.predicted among non-blacks MDRD (S/P/Bld) [Vol rate/Area] 20 mL/min/{1.73_m2} Low >=60 mL/min/1.7 3m 2 [facility] GFR/1.73 sq M.predicted among non-blacks MDRD (S/P/Bld) [Vol rate/Area] Estimated glomerular filtration rate (GFR) non- Low >=60 mL/min/1.7 3m 2 [facility] Hematocrit Auto (Bld) [Volum e fraction]on 02-23-2024 Hematocrit (Bld) [Volume fraction] 32.8 % Low 36.0-48.0 [facility] Hematocrit (Bld) [Volume fraction] Hematocrit [Volume Fraction] of Blood by Automated count Low 36.0-48.0 [facility] Hemoglobin [Mass/volume] in Bloodon 02-23-2024 Hemoglobin (Bld) [Mass/Vol] 9.7 g/dL Low 12.0-16.0 [facility] Hemoglobin (Bld) [Mass/Vol] Hemoglobin [Mass/volume] in Blood Low 12.0-16.0 [facility] Laboratory - Chemistry and C hemistry - challengeon 02-23-2024 Albumin [Mass/Vol] 3.0 g/dL Low 3.4-5.0 [facility] Calcium [Mass/Vol] 8.9 mg/dL 8.5-10.1 [facility] Chloride [Moles/Vol] 107 mmol/L 98-107 [facility] CO2 [Moles/Vol] 28.7 mmol/L 21.0-32.0 [facility] Creatinine [Mass/Vol] 2.30 mg/dL High 0.55-1.02 [facility] GFR/1.73 sq M.predicted MDRD (S/P/Bld) [Vol rate/Area] 25 mL/min/{1.73_m2} Low >=60 mL/min/1.7 3m 2 [facility] Glucose [Mass/Vol] 97 mg/dL 74-106 [facility] Potassium [Moles/Vol] 4.0 mmol/L 3.5-5.1 [facility] Sodium [Moles/Vol] 144 mmol/L 136-145 [facility] Urea nitrogen [Mass/Vol] 50.0 mg/dL High 7.0-18.0 [facility] Urea nitrogen/Creatinine [Mass ratio] 21.7 mg/mg [facility] Leukocytes [#/volume] correc katy for nucleated erythrocytes in Blood by Automated counon 02-23-2024 WBC corrected for nucl RBC Auto (Bld) [#/Vol] 4.8 10 3/uL 4.0-11.0 [facility] WBC corrected for nucl RBC Auto (Bld) [#/Vol] Leukocytes [#/volume] corrected for nucleated erythrocytes in Blood by Automated coun 4.0-11.0 [facility] MCH Auto (RBC) [Entitic mass ]on 02-23-2024 MCH (RBC) [Entitic mass] 29.4 pg 26.7-34.0 [facility] MCH (RBC) [Entitic mass] MCH [Entitic mass] by Automated count 26.7-34.0 [facility] MCHC Auto (RBC) [Mass/Vol]on 02-23-2024 MCHC (RBC) [Mass/Vol] 29.6 g/dL Low 29.9-35.2 [facility] MCHC (RBC) [Mass/Vol] MCHC [Mass/volume] by Automated count Low 29.9-35.2 [facility] MCV Auto (RBC) [Entitic vol] on 02-23-2024 MCV (RBC) [Entitic vol] 99.4 fL High 81.0-99.0 [facility] MCV (RBC) [Entitic vol] MCV [Entitic volume] by Automated count High 81.0-99.0 [facility] No Panel Informationon 02-22 Phosphorus Level 3.6 mg/dL 2.6-4.7 [facility] Platelet mean volume Auto (B ld) [Entitic vol]on 02-23-2024 Platelet mean volume (Bld) [Entitic vol] 9.7 fL 9.5-13.5 [facility] Platelet mean volume (Bld) [Entitic vol] Platelet mean volume [Entitic volume] in Blood by Automated count 9.5-13.5 [facility] Platelets Auto (Bld) [#/Vol] on 02-23-2024 Platelets (Bld) [#/Vol] 170 10 3/uL 150-450 [facility] Platelets (Bld) [#/Vol] Platelets [#/volume] in Blood by Automated count 150-450 [facility] RBC Auto (Bld) [#/Vol]on RBC (Bld) [#/Vol] 3.30 10 6/uL Low 4.20-5.40 [facility] RBC (Bld) [#/Vol] Erythrocytes [#/volu me] in Blood by Automated count Low 4.20-5.40 [facility] Serum or plasma anion gap de terminationon 02-23-2024 Anion gap [Moles/Vol] 12.3 mmol/L [facility] Anion gap [Moles/Vol] Serum or plasma an ion gap determination [facility] Erythrocyte distribution wid th Auto (RBC) [Ratio]on 02-03-2024 Erythrocyte distribution width (RBC) [Ratio] 14.4 % 11.0-15.0 [facility] Erythrocyte distribution width (RBC) [Ratio] Erythrocyte distribution width [Ratio] by Automated count 11.0-15.0 [facility] Estimated glomerular filtrat ion rate (GFR) non- Americanon 02-03-2024 GFR/1.73 sq M.predicted among non-blacks MDRD (S/P/Bld) [Vol rate/Area] 19 mL/min/{1.73_m2} Low >=60 [facility] GFR/1.73 sq M.predicted among non-blacks MDRD (S/P/Bld) [Vol rate/Area] Estimated glomerular filtration rate (GFR) non- Low >=60 [facility] Hematocrit Auto (Bld) [Volum e fraction]on 02-03-2024 Hematocrit (Bld) [Volume fraction] 33.5 % Low 36.0-48.0 [facility] Hematocrit (Bld) [Volume fraction] Hematocrit [Volume Fraction] of Blood by Automated count Low 36.0-48.0 [facility] Hemoglobin [Mass/volume] in Bloodon 02-03-2024 Hemoglobin (Bld) [Mass/Vol] 10.0 g/dL Low 12.0-16.0 [facility] Hemoglobin (Bld) [Mass/Vol] Hemoglobin [Mass/volume] in Blood Low 12.0-16.0 [facility] Laboratory - Chemistry and C hemistry - challengeon 02-03-2024 Albumin [Mass/Vol] 3.1 g/dL Low 3.4-5.0 [facility] Calcium [Mass/Vol] 8.8 mg/dL 8.5-10.1 [facility] Chloride [Moles/Vol] 103 mmol/L 98-107 [facility] CO2 [Moles/Vol] 32.9 mmol/L High 21.0-32.0 [facility] Creatinine [Mass/Vol] 2.48 mg/dL High 0.55-1.02 [facility] GFR/1.73 sq M.predicted MDRD (S/P/Bld) [Vol rate/Area] 23 mL/min/{1.73_m2} Low >=60 [facility] Glucose [Mass/Vol] 101 mg/dL 74-106 [facility] Potassium [Moles/Vol] 4.6 mmol/L 3.5-5.1 [facility] Sodium [Moles/Vol] 141 mmol/L 136-145 [facility] Urea nitrogen [Mass/Vol] 51.0 mg/dL High 7.0-18.0 [facility] Urea nitrogen/Creatinine [Mass ratio] 20.6 mg/mg [facility] Leukocytes [#/volume] correc katy for nucleated erythrocytes in Blood by Automated counon 02-03-2024 WBC corrected for nucl RBC Auto (Bld) [#/Vol] 6.3 10 3/uL 4.0-11.0 [facility] WBC corrected for nucl RBC Auto (Bld) [#/Vol] Leukocytes [#/volume] corrected for nucleated erythrocytes in Blood by Automated coun 4.0-11.0 [facility] MCH Auto (RBC) [Entitic mass ]on 02-03-2024 MCH (RBC) [Entitic mass] 29.4 pg 26.7-34.0 [facility] MCH (RBC) [Entitic mass] MCH [Entitic mass] by Automated count 26.7-34.0 [facility] MCHC Auto (RBC) [Mass/Vol]on 02-03-2024 MCHC (RBC) [Mass/Vol] 29.9 g/dL 29.9-35.2 [facility] MCHC (RBC) [Mass/Vol] MCHC [Mass/volume] by Automated count 29.9-35.2 [facility] MCV Auto (RBC) [Entitic vol] on 02-03-2024 MCV (RBC) [Entitic vol] 98.5 fL 81.0-99.0 [facility] MCV (RBC) [Entitic vol] MCV [Entitic volume] by Automated count 81.0-99.0 [facility] No Panel Informationon 02-02 Phosphorus Level 4.7 mg/dL 2.6-4.7 [facility] Platelet mean volume Auto (B ld) [Entitic vol]on 02-03-2024 Platelet mean volume (Bld) [Entitic vol] 9.6 fL 9.5-13.5 [facility] Platelet mean volume (Bld) [Entitic vol] Platelet mean volume [Entitic volume] in Blood by Automated count 9.5-13.5 [facility] Platelets Auto (Bld) [#/Vol] on 02-03-2024 Platelets (Bld) [#/Vol] 227 10 3/uL 150-450 [facility] Platelets (Bld) [#/Vol] Platelets [#/volume] in Blood by Automated count 150-450 [facility] RBC Auto (Bld) [#/Vol]on RBC (Bld) [#/Vol] 3.40 10 6/uL Low 4.20-5.40 [facility] RBC (Bld) [#/Vol] Erythrocytes [#/volu me] in Blood by Automated count Low 4.20-5.40 [facility] Serum or plasma anion gap de terminationon 02-03-2024 Anion gap [Moles/Vol] 9.7 mmol/L [facility] Anion gap [Moles/Vol] Serum or plasma an ion gap determination [facility] Estimated glomerular filtrat ion rate (GFR) non- Americanon 01-23-2024 GFR/1.73 sq M.predicted among non-blacks MDRD (S/P/Bld) [Vol rate/Area] 23 mL/min/{1.73_m2} Low >=60 [facility] GFR/1.73 sq M.predicted among non-blacks MDRD (S/P/Bld) [Vol rate/Area] Estimated glomerular filtration rate (GFR) non- Low >=60 [facility] Laboratory - Chemistry and C hemistry - challengeon 01-23-2024 Albumin [Mass/Vol] 3.0 g/dL Low 3.4-5.0 [facility] Calcium [Mass/Vol] 8.6 mg/dL 8.5-10.1 [facility] Chloride [Moles/Vol] 107 mmol/L 98-107 [facility] CO2 [Moles/Vol] 30.8 mmol/L 21.0-32.0 [facility] Creatinine [Mass/Vol] 2.09 mg/dL High 0.55-1.02 [facility] GFR/1.73 sq M.predicted MDRD (S/P/Bld) [Vol rate/Area] 27 mL/min/{1.73_m2} Low >=60 [facility] Glucose [Mass/Vol] 100 mg/dL 74-106 [facility] Potassium [Moles/Vol] 5.8 mmol/L High 3.5-5.1 [facility] Sodium [Moles/Vol] 144 mmol/L 136-145 [facility] Urea nitrogen [Mass/Vol] 44.0 mg/dL High 7.0-18.0 [facility] Urea nitrogen/Creatinine [Mass ratio] 21.1 mg/mg [facility] No Panel Informationon 01-22 Phosphorus Level 4.1 mg/dL 2.6-4.7 [facility] Serum or plasma anion gap de terminationon 01-23-2024 Anion gap [Moles/Vol] 12.0 mmol/L Fi [facility] Anion gap [Moles/Vol] Serum or plasma an ion gap determination [facility] Erythrocyte distribution wid th Auto (RBC) [Ratio]on 01-20-2024 Erythrocyte distribution width (RBC) [Ratio] 15.0 % 11.0-15.0 [facility] Erythrocyte distribution width (RBC) [Ratio] Erythrocyte distribution width [Ratio] by Automated count 11.0-15.0 [facility] Estimated glomerular filtrat ion rate (GFR) non- Americanon 01-20-2024 GFR/1.73 sq M.predicted among non-blacks MDRD (S/P/Bld) [Vol rate/Area] 23 mL/min/{1.73_m2} Low >=60 [facility] GFR/1.73 sq M.predicted among non-blacks MDRD (S/P/Bld) [Vol rate/Area] Estimated glomerular filtration rate (GFR) non- Low >=60 [facility] Hematocrit Auto (Bld) [Volum e fraction]on 01-20-2024 Hematocrit (Bld) [Volume fraction] 32.5 % Low 36.0-48.0 [facility] Hematocrit (Bld) [Volume fraction] Hematocrit [Volume Fraction] of Blood by Automated count Low 36.0-48.0 [facility] Hemoglobin [Mass/volume] in Bloodon 01-20-2024 Hemoglobin (Bld) [Mass/Vol] 9.6 g/dL Low 12.0-16.0 [facility] Hemoglobin (Bld) [Mass/Vol] Hemoglobin [Mass/volume] in Blood Low 12.0-16.0 [facility] Iron binding capacity [Mass/ volume] in Serum or Plasmaon 01-20-2024 Iron binding capacity [Mass/Vol] 260.0 ug/dL 250.0-450. 0 [facility] Iron binding capacity [Mass/Vol] Iron binding capacity [Mass/volume] in Serum or Plasma 250.0-450. 0 [facility] Iron saturation [Mass Fracti on] in Serum or Plasmaon 01-20-2024 Iron saturation [Mass fraction] 10.0 % [facility] Iron saturation [Mass fraction] Iron saturation [Mass Fraction] in Serum or Plasma [facility] Laboratory - Chemistry and C hemistry - challengeon 01-20-2024 Albumin [Mass/Vol] 3.0 g/dL Low 3.4-5.0 [facility] Calcium [Mass/Vol] 8.5 mg/dL 8.5-10.1 [facility] Chloride [Moles/Vol] 108 mmol/L High 98-107 [facility] CO2 [Moles/Vol] 31.6 mmol/L 21.0-32.0 [facility] Creatinine [Mass/Vol] 2.06 mg/dL High 0.55-1.02 [facility] Ferritin [Mass/Vol] 36.0 ng/mL 8.0-252.0 [facility] GFR/1.73 sq M.predicted MDRD (S/P/Bld) [Vol rate/Area] 28 mL/min/{1.73_m2} Low >=60 [facility] Glucose [Mass/Vol] 106 mg/dL 74-106 [facility] Iron [Mass/Vol] 26.0 ug/dL Low 50.0-170.0 [facility] Potassium [Moles/Vol] 5.8 mmol/L High 3.5-5.1 [facility] Sodium [Moles/Vol] 144 mmol/L 136-145 [facility] [facility] Urea nitrogen [Mass/Vol] 48.0 mg/dL High 7.0-18.0 [facility] Urea nitrogen/Creatinine [Mass ratio] 23.3 mg/mg [facility] Leukocytes [#/volume] correc katy for nucleated erythrocytes in Blood by Automated counon 01-20-2024 WBC corrected for nucl RBC Auto (Bld) [#/Vol] 6.4 10 3/uL 4.0-11.0 [facility] WBC corrected for nucl RBC Auto (Bld) [#/Vol] Leukocytes [#/volume] corrected for nucleated erythrocytes in Blood by Automated coun 4.0-11.0 [facility] MCH Auto (RBC) [Entitic mass ]on 01-20-2024 MCH (RBC) [Entitic mass] 30.0 pg 26.7-34.0 [facility] MCH (RBC) [Entitic mass] MCH [Entitic mass] by Automated count 26.7-34.0 [facility] MCHC Auto (RBC) [Mass/Vol]on 01-20-2024 MCHC (RBC) [Mass/Vol] 29.5 g/dL Low 29.9-35.2 [facility] MCHC (RBC) [Mass/Vol] MCHC [Mass/volume] by Automated count Low 29.9-35.2 [facility] MCV Auto (RBC) [Entitic vol] on 01-20-2024 MCV (RBC) [Entitic vol] 101.6 fL High 81.0-99.0 [facility] MCV (RBC) [Entitic vol] MCV [Entitic volume] by Automated count High 81.0-99.0 [facility] No Panel Informationon 01-19 Phosphorus Level 4.2 mg/dL 2.6-4.7 [facility] Platelet mean volume Auto (B ld) [Entitic vol]on 01-20-2024 Platelet mean volume (Bld) [Entitic vol] 9.6 fL 9.5-13.5 [facility] Platelet mean volume (Bld) [Entitic vol] Platelet mean volume [Entitic volume] in Blood by Automated count 9.5-13.5 [facility] Platelets Auto (Bld) [#/Vol] on 01-20-2024 Platelets (Bld) [#/Vol] 196 10 3/uL 150-450 [facility] Platelets (Bld) [#/Vol] Platelets [#/volume] in Blood by Automated count 150-450 [facility] RBC Auto (Bld) [#/Vol]on RBC (Bld) [#/Vol] 3.20 10 6/uL Low 4.20-5.40 [facility] RBC (Bld) [#/Vol] Erythrocytes [#/volu me] in Blood by Automated count Low 4.20-5.40 [facility] Serum or plasma anion gap de terminationon 01-20-2024 Anion gap [Moles/Vol] 10.2 mmol/L Fi [facility] Anion gap [Moles/Vol] Serum or plasma an ion gap determination [facility] 36on 01-07-2024 36 Please forward to [facility]CP [facility] Refill [id number] Dany Martínez M 1940 F Date Provider Department Center 01/[id number]-[facility] IM [facility] No family history on file Reason for Visit and Comments: Med Refill [[id number]] Normal [facility] Erythrocyte distribution wid th Auto (RBC) [Ratio]on 01-05-2024 Erythrocyte distribution width (RBC) [Ratio] 14.2 % 11.0-15.0 [facility] Erythrocyte distribution width (RBC) [Ratio] Erythrocyte distribution width [Ratio] by Automated count 11.0-15.0 [facility] Hematocrit Auto (Bld) [Volum e fraction]on 01-05-2024 Hematocrit (Bld) [Volume fraction] 32.4 % Low 36.0-48.0 [facility] Hematocrit (Bld) [Volume fraction] Hematocrit [Volume Fraction] of Blood by Automated count Low 36.0-48.0 [facility] Hemoglobin [Mass/volume] in Bloodon 01-05-2024 Hemoglobin (Bld) [Mass/Vol] 9.8 g/dL Low 12.0-16.0 [facility] Hemoglobin (Bld) [Mass/Vol] Hemoglobin [Mass/volume] in Blood Low 12.0-16.0 [facility] Leukocytes [#/volume] correc katy for nucleated erythrocytes in Blood by Automated counon 01-05-2024 WBC corrected for nucl RBC Auto (Bld) [#/Vol] 5.7 10 3/uL 4.0-11.0 [facility] WBC corrected for nucl RBC Auto (Bld) [#/Vol] Leukocytes [#/volume] corrected for nucleated erythrocytes in Blood by Automated coun 4.0-11.0 [facility] MCH Auto (RBC) [Entitic mass ]on 01-05-2024 MCH (RBC) [Entitic mass] 30.1 pg 26.7-34.0 [facility] MCH (RBC) [Entitic mass] MCH [Entitic mass] by Automated count 26.7-34.0 [facility] MCHC Auto (RBC) [Mass/Vol]on 01-05-2024 MCHC (RBC) [Mass/Vol] 30.2 g/dL 29.9-35.2 [facility] MCHC (RBC) [Mass/Vol] MCHC [Mass/volume] by Automated count 29.9-35.2 [facility] MCV Auto (RBC) [Entitic vol] on 01-05-2024 MCV (RBC) [Entitic vol] 99.4 fL High 81.0-99.0 [facility] MCV (RBC) [Entitic vol] MCV [Entitic volume] by Automated count High 81.0-99.0 [facility] Platelet mean volume Auto (B ld) [Entitic vol]on 01-05-2024 Platelet mean volume (Bld) [Entitic vol] 9.3 fL Low 9.5-13.5 [facility] Platelet mean volume (Bld) [Entitic vol] Platelet mean volume [Entitic volume] in Blood by Automated count Low 9.5-13.5 [facility] Platelets Auto (Bld) [#/Vol] on 01-05-2024 Platelets (Bld) [#/Vol] 211 10 3/uL 150-450 [facility] Platelets (Bld) [#/Vol] Platelets [#/volume] in Blood by Automated count 150-450 [facility] RBC Auto (Bld) [#/Vol]on RBC (Bld) [#/Vol] 3.26 10 6/uL Low 4.20-5.40 [facility] RBC (Bld) [#/Vol] Erythrocytes [#/volu me] in Blood by Automated count Low 4.20-5.40 [facility] No Panel Informationon 12-07 Bedside Glucose 124 [facility] Erythrocyte distribution wid th Auto (RBC) [Ratio]on 11-27-2023 Erythrocyte distribution width (RBC) [Ratio] 14.7 % 11.0-15.0 [facility] Hematocrit Auto (Bld) [Volum e fraction]on 11-27-2023 Hematocrit (Bld) [Volume fraction] 31.1 % Low 36.0-48.0 [facility] Hemoglobin [Mass/volume] in Bloodon 11-27-2023 Hemoglobin (Bld) [Mass/Vol] 9.3 g/dL Low 12.0-16.0 [facility] Leukocytes [#/volume] correc katy for nucleated erythrocytes in Blood by Automated counon 11-27-2023 WBC corrected for nucl RBC Auto (Bld) [#/Vol] 5.4 10 3/uL 4.0-11.0 [facility] MCH Auto (RBC) [Entitic mass ]on 11-27-2023 MCH (RBC) [Entitic mass] 29.5 pg 26.7-34.0 [facility] MCHC Auto (RBC) [Mass/Vol]on 11-27-2023 MCHC (RBC) [Mass/Vol] 29.9 g/dL 29.9-35.2 [facility] MCV Auto (RBC) [Entitic vol] on 11-27-2023 MCV (RBC) [Entitic vol] 98.7 fL 81.0-99.0 [facility] Platelet mean volume Auto (B ld) [Entitic vol]on 11-27-2023 Platelet mean volume (Bld) [Entitic vol] 9.9 fL 9.5-13.5 [facility] Platelets Auto (Bld) [#/Vol] on 11-27-2023 Platelets (Bld) [#/Vol] 195 10 3/uL 150-450 [facility] RBC Auto (Bld) [#/Vol]on RBC (Bld) [#/Vol] 3.15 10 6/uL Low 4.20-5.40 [facility] Erythrocyte distribution wid th Auto (RBC) [Ratio]on 11-13-2023 Erythrocyte distribution width (RBC) [Ratio] 14.6 % 11.0-15.0 [facility] Estimated glomerular filtrat ion rate (GFR) non- Americanon 11-13-2023 GFR/1.73 sq M.predicted among non-blacks MDRD (S/P/Bld) [Vol rate/Area] 19 mL/min/{1.73_m2} Low >=60 [facility] Hematocrit Auto (Bld) [Volum e fraction]on 11-13-2023 Hematocrit (Bld) [Volume fraction] 30.1 % Low 36.0-48.0 [facility] Hemoglobin [Mass/volume] in Bloodon 11-13-2023 Hemoglobin (Bld) [Mass/Vol] 8.9 g/dL Low 12.0-16.0 [facility] Laboratory - Chemistry and C hemistry - challengeon 11-13-2023 Albumin [Mass/Vol] 3.1 g/dL Low 3.4-5.0 [facility] Calcium [Mass/Vol] 8.4 mg/dL Low 8.5-10.1 [facility] Chloride [Moles/Vol] 106 mmol/L 98-107 [facility] CO2 [Moles/Vol] 29.3 mmol/L 21.0-32.0 [facility] Creatinine [Mass/Vol] 2.41 mg/dL High 0.55-1.02 [facility] GFR/1.73 sq M.predicted MDRD (S/P/Bld) [Vol rate/Area] 23 mL/min/{1.73_m2} Low >=60 [facility] Glucose [Mass/Vol] 97 mg/dL 74-106 [facility] Potassium [Moles/Vol] 4.8 mmol/L 3.5-5.1 [facility] Sodium [Moles/Vol] 143 mmol/L 136-145 [facility] Urea nitrogen [Mass/Vol] 47.0 mg/dL High 7.0-18.0 [facility] Urea nitrogen/Creatinine [Mass ratio] 19.5 mg/mg [facility] Leukocytes [#/volume] correc katy for nucleated erythrocytes in Blood by Automated counon 11-13-2023 WBC corrected for nucl RBC Auto (Bld) [#/Vol] 5.0 10 3/uL 4.0-11.0 [facility] MCH Auto (RBC) [Entitic mass ]on 11-13-2023 MCH (RBC) [Entitic mass] 28.9 pg 26.7-34.0 [facility] MCHC Auto (RBC) [Mass/Vol]on 11-13-2023 MCHC (RBC) [Mass/Vol] 29.6 g/dL Low 29.9-35.2 [facility] MCV Auto (RBC) [Entitic vol] on 11-13-2023 MCV (RBC) [Entitic vol] 97.7 fL 81.0-99.0 [facility] No Panel Informationon 11-12 Phosphorus Level 4.2 mg/dL 2.6-4.7 [facility] Platelet mean volume Auto (B ld) [Entitic vol]on 11-13-2023 Platelet mean volume (Bld) [Entitic vol] 9.7 fL 9.5-13.5 [facility] Platelets Auto (Bld) [#/Vol] on 11-13-2023 Platelets (Bld) [#/Vol] 228 10 3/uL 150-450 [facility] RBC Auto (Bld) [#/Vol]on RBC (Bld) [#/Vol] 3.08 10 6/uL Low 4.20-5.40 [facility] Serum or plasma anion gap de terminationon 11-13-2023 Anion gap [Moles/Vol] 12.5 mmol/L Fi [facility] Erythrocyte distribution wid th Auto (RBC) [Ratio]on 10-30-2023 Erythrocyte distribution width (RBC) [Ratio] 14.1 % 11.0-15.0 [facility] Estimated glomerular filtrat ion rate (GFR) non- Americanon 10-30-2023 GFR/1.73 sq M.predicted among non-blacks MDRD (S/P/Bld) [Vol rate/Area] 18 mL/min/{1.73_m2} Low >=60 [facility] Hematocrit Auto (Bld) [Volum e fraction]on 10-30-2023 Hematocrit (Bld) [Volume fraction] 28.0 % Low 36.0-48.0 [facility] Hemoglobin [Mass/volume] in Bloodon 10-30-2023 Hemoglobin (Bld) [Mass/Vol] 8.3 g/dL Low 12.0-16.0 [facility] Laboratory - Chemistry and C hemistry - challengeon 10-30-2023 Albumin [Mass/Vol] 2.9 g/dL Low 3.4-5.0 [facility] Calcium [Mass/Vol] 8.6 mg/dL 8.5-10.1 [facility] Chloride [Moles/Vol] 107 mmol/L 98-107 [facility] CO2 [Moles/Vol] 28.1 mmol/L 21.0-32.0 [facility] Creatinine [Mass/Vol] 2.52 mg/dL High 0.55-1.02 [facility] GFR/1.73 sq M.predicted MDRD (S/P/Bld) [Vol rate/Area] 22 mL/min/{1.73_m2} Low >=60 [facility] Glucose [Mass/Vol] 100 mg/dL 74-106 [facility] Potassium [Moles/Vol] 5.7 mmol/L High 3.5-5.1 [facility] Sodium [Moles/Vol] 142 mmol/L 136-145 [facility] Urea nitrogen [Mass/Vol] 43.0 mg/dL High 7.0-18.0 [facility] Urea nitrogen/Creatinine [Mass ratio] 17.1 mg/mg [facility] Leukocytes [#/volume] correc katy for nucleated erythrocytes in Blood by Automated counon 10-30-2023 WBC corrected for nucl RBC Auto (Bld) [#/Vol] 4.6 10 3/uL 4.0-11.0 [facility] MCH Auto (RBC) [Entitic mass ]on 10-30-2023 MCH (RBC) [Entitic mass] 28.7 pg 26.7-34.0 [facility] MCHC Auto (RBC) [Mass/Vol]on 10-30-2023 MCHC (RBC) [Mass/Vol] 29.6 g/dL Low 29.9-35.2 [facility] MCV Auto (RBC) [Entitic vol] on 10-30-2023 MCV (RBC) [Entitic vol] 96.9 fL 81.0-99.0 [facility] No Panel Informationon 10-29 Parathyroid Hormone (Intact) 73 pg/mL Abnormal [facility] Comment on above: Performed at: [facility] [place] [id number] Director: Deshaun Hunter PhD, Phone: [phone] Phosphorus Level 4.3 mg/dL 2.6-4.7 [facility] Platelet mean volume Auto (B ld) [Entitic vol]on 10-30-2023 Platelet mean volume (Bld) [Entitic vol] 9.8 fL 9.5-13.5 [facility] Platelets Auto (Bld) [#/Vol] on 10-30-2023 Platelets (Bld) [#/Vol] 178 10 3/uL 150-450 [facility] RBC Auto (Bld) [#/Vol]on RBC (Bld) [#/Vol] 2.89 10 6/uL Low 4.20-5.40 [facility] Serum or plasma anion gap de terminationon 10-30-2023 Anion gap [Moles/Vol] 12.6 mmol[facility]L [facility] Erythrocyte distribution wid th Auto (RBC) [Ratio]on 10-07-2023 Erythrocyte distribution width (RBC) [Ratio] 14.2 % 11.0-15.0 [facility] Hematocrit Auto (Bld) [Volum e fraction]on 10-07-2023 Hematocrit (Bld) [Volume fraction] 28.0 % Low 36.0-48.0 [facility] Hemoglobin [Mass/volume] in Bloodon 10-07-2023 Hemoglobin (Bld) [Mass/Vol] 8.6 g/dL Low 12.0-16.0 [facility] Leukocytes [#/volume] correc katy for nucleated erythrocytes in Blood by Automated counon 10-07-2023 WBC corrected for nucl RBC Auto (Bld) [#/Vol] 5.1 10 3/uL 4.0-11.0 [facility] MCH Auto (RBC) [Entitic mass ]on 10-07-2023 MCH (RBC) [Entitic mass] 30.1 pg 26.7-34.0 [facility] MCHC Auto (RBC) [Mass/Vol]on 10-07-2023 MCHC (RBC) [Mass/Vol] 30.7 g/dL 29.9-35.2 [facility] MCV Auto (RBC) [Entitic vol] on 10-07-2023 MCV (RBC) [Entitic vol] 97.9 fL 81.0-99.0 [facility] Platelet mean volume Auto (B ld) [Entitic vol]on 10-07-2023 Platelet mean volume (Bld) [Entitic vol] 10.1 fL 9.5-13.5 [facility] Platelets Auto (Bld) [#/Vol] on 10-07-2023 Platelets (Bld) [#/Vol] 194 10 3/uL 150-450 [facility] RBC Auto (Bld) [#/Vol]on RBC (Bld) [#/Vol] 2.86 10 6/uL Low 4.20-5.40 [facility] Erythrocyte distribution wid th Auto (RBC) [Ratio]on 09-16-2023 Erythrocyte distribution width (RBC) [Ratio] 14.0 % 11.0-15.0 [facility] Estimated glomerular filtrat ion rate (GFR) non- Americanon 09-16-2023 GFR/1.73 sq M.predicted among non-blacks MDRD (S/P/Bld) [Vol rate/Area] 22 mL/min/{1.73_m2} Low >=60 [facility] Hematocrit Auto (Bld) [Volum e fraction]on 09-16-2023 Hematocrit (Bld) [Volume fraction] 25.6 % Low 36.0-48.0 [facility] Hemoglobin [Mass/volume] in Bloodon 09-16-2023 Hemoglobin (Bld) [Mass/Vol] 7.5 g/dL Low 12.0-16.0 [facility] Laboratory - Chemistry and C hemistry - challengeon 09-16-2023 Albumin [Mass/Vol] 3.1 g/dL Low 3.4-5.0 [facility] Calcium [Mass/Vol] 9.2 mg/dL 8.5-10.1 [facility] Chloride [Moles/Vol] 107 mmol/L 98-107 [facility] CO2 [Moles/Vol] 28.2 mmol/L 21.0-32.0 [facility] Creatinine [Mass/Vol] 2.17 mg/dL High 0.55-1.02 [facility] GFR/1.73 sq M.predicted MDRD (S/P/Bld) [Vol rate/Area] 26 mL/min/{1.73_m2} Low >=60 [facility] Glucose [Mass/Vol] 98 mg/dL 74-106 [facility] Potassium [Moles/Vol] 5.1 mmol/L 3.5-5.1 [facility] Sodium [Moles/Vol] 142 mmol/L 136-145 [facility] Urea nitrogen [Mass/Vol] 43.0 mg/dL High 7.0-18.0 [facility] Urea nitrogen/Creatinine [Mass ratio] 19.8 mg/mg [facility] Laboratory - Urinalysison Protein (U) [Mass/Vol] 117.6 mg/dL High <=11.9 [facility] Leukocytes [#/volume] correc katy for nucleated erythrocytes in Blood by Automated counon 09-16-2023 WBC corrected for nucl RBC Auto (Bld) [#/Vol] 5.4 10 3/uL 4.0-11.0 [facility] MCH Auto (RBC) [Entitic mass ]on 09-16-2023 MCH (RBC) [Entitic mass] 29.2 pg 26.7-34.0 [facility] MCHC Auto (RBC) [Mass/Vol]on 09-16-2023 MCHC (RBC) [Mass/Vol] 29.3 g/dL Low 29.9-35.2 [facility] MCV Auto (RBC) [Entitic vol] on 09-16-2023 MCV (RBC) [Entitic vol] 99.6 fL High 81.0-99.0 [facility] No Panel Informationon 09-15 Parathyroid Hormone (Intact) 75 pg/mL Abnormal 15 [facility] Comment on above: Performed at: [place] [id number] Director: Deshaun Hunter PhD, Phone: [phone] Phosphorus Level 4.6 mg/dL 2.6-4.7 [facility] Urine Random Creatinine 38.12 mg/dL 20.00-300. 00 [facility] Platelet mean volume Auto (B ld) [Entitic vol]on 09-16-2023 Platelet mean volume (Bld) [Entitic vol] 10.3 fL 9.5-13.5 [facility] Platelets Auto (Bld) [#/Vol] on 09-16-2023 Platelets (Bld) [#/Vol] 225 10 3/uL 150-450 [facility] RBC Auto (Bld) [#/Vol]on RBC (Bld) [#/Vol] 2.57 10 6/uL Low 4.20-5.40 [facility] Serum or plasma anion gap de terminationon 09-16-2023 Anion gap [Moles/Vol] 11.9 mmol/L [facility] Urine protein/creatinine rat ioon 09-16-2023 Protein/Creatinine (U) [Ratio] 3.08 [facility] Activated partial thrombopla stin time (aPTT) in platelet poor plasma by coagulation aOrdered By: Rin Ramirez on 09-01-2023 aPTT Coag (PPP) [Time] 30.5 s 25.1-36.5 [facility] Comment on above: A hematocrit value g reater than 55% may lead to inaccurate results in coagulation testing. Patients having hematocrit values >55% require a special collection tube for coagulation studies. Please contact the laboratory at [phone] for redraw instructions. Albumin [Mass/volume] in Ser um or Plasma by Bromocresol green (BCG) dye binding methoOrdered By: Rin Ramirez on 09-01-2023 Albumin BCG dye [Mass/Vol] 3.6 g/dL 3.5-5.7 [facility] Automated erythrocytes count in urine sediment (number/area)Ordered By: Rin Ramirez on 09-01-2023 RBC Auto (Urine sed) [#/Area] 50-100 [HPF] High 0-4 [facility] Automated leukocytes count i n urine sediment (number/area)Ordered By: Rin Ramirez on 09-01-2023 WBC Auto (Urine sed) [#/Area] 1-2 [HPF] 0-4 [facility] Bilirubin Test strip Ql (U)O rdered By: Rin Ramirez on 09-01-2023 Bilirubin Ql (U) Negative Negative [facility] Calcium [Mass/volume] in Ser um or PlasmaOrdered By: Rin Ramirez on 09-01-2023 Calcium [Mass/Vol] 8.9 mg/dL 8.6-10.3 [facility] Carbon dioxide, total [Moles /volume] in Serum or PlasmaOrdered By: Rin Ramirez 09-01-2023 CO2 [Moles/Vol] 30.5 mmol/L 21.0-31.0 [facility] Chloride [Moles/volume] in S adriana or PlasmaOrdered By: Rin Ramirez on 09-01-2023 Chloride [Moles/Vol] 107 mmol/L 98-107 [facility] Color Auto (U)Ordered By: Domingo Ramirez on 09-01-2023 Color (U) Yellow Yellow [facility] Creatinine [Mass/volume] in Serum or PlasmaOrdered By: Rin Ramirez on 09-01-2023 Creatinine [Mass/Vol] 2.02 mg/dL High 0.60-1.20 [facility] Creatinine [Mass/volume] in UrineOrdered By: Rin Ramirez on 09-01-2023 Creatinine (U) [Mass/Vol] 52.0 mg/dL [facility] Comment on above: No reference range e stablished Erythrocyte distribution wid th Auto (RBC) [Ratio]Ordered By: Rin Ramirez on 09-01-2023 Erythrocyte distribution width (RBC) [Ratio] 14.7 % 11.9-15.3 [facility] Ferritin [Mass/volume] in Se rum or PlasmaOrdered By: Rin Ramirez on 09-01-2023 Ferritin [Mass/Vol] 16.5 ng/mL 11.0-306.8 [facility] Folate [Mass/volume] in Seru m or PlasmaOrdered By: Rin Ramirez on 09-01-2023 Folate [Mass/Vol] 16.5 ng/mL >5.9 [facility] Comment on above: Folate reference ran ge: >5.9 ng/mlThe WHO technical consultation on folate and vitamin [id number] has determined that folate concentrations lessthan 4 ng/ml are considered deficient. Glucose [Mass/volume] in Ser um or PlasmaOrdered By: Rin Ramirez on 09-01-2023 Glucose [Mass/Vol] 121 mg/dL High 70-100 [facility] Comment on above: ADA recommended refe rence rangeRandom Glucose Reference Range is dependent on time and content of last meal. Glucose of more than 200 mg/dL in a nonstressed, ambulatory subject supports the diagnosis of Diabetes Mellitus. Hematocrit Auto (Bld) [Volum e fraction]Ordered By: Rin Ramirez on 09-01-2023 Hematocrit (Bld) [Volume fraction] 25.0 % Low 34.0-46.4 [facility] Hemoglobin [Mass/volume] in BloodOrdered By: Rin Ramirez 09-01-2023 Hemoglobin (Bld) [Mass/Vol] 8.0 g/dL Low 11.8-15.4 [facility] INR in Platelet poor plasma by Coagulation assayOrdered By: Rin Ramirez 09-01-2023 INR Coag (PPP) [Relative time] 1.0 {INR} [facility] Comment on above: INR Therapeutic Rang [...] on 09-01-2023 Iron [Mass/Vol] 122 ug/dL 50-212 [facility] Iron binding capacity [Mass/ volume] in Serum or PlasmaOrdered By: Rin Ramirez on 09-01-2023 Iron binding capacity [Mass/Vol] 360 ug/dL 255-450 [facility] Iron saturation [Mass Fracti on] in Serum or PlasmaOrdered By: Rin Ramirez on 09-01-2023 Iron saturation [Mass fraction] 33.9 % 20-50 [facility] Ketones Auto test strip (U) [Mass/Vol]Ordered By: Rin Ramirez on 09-01-2023 Ketones (U) [Mass/Vol] Negative Negative [facility] Laboratory - UrinalysisOrder ed By: Rin Ramirez on 09-01-2023 Hyaline casts LM Ql (Urine sed) 0-8 [LPF] 0-8 [facility] Leukocytes [#/volume] correc katy for nucleated erythrocytes in Blood by Automated counOrdered By: Rin Ramirez on 09-01-2023 WBC corrected for nucl RBC Auto (Bld) [#/Vol] 4.7 10*3/uL 3.8-11.6 [facility] MCH Auto (RBC) [Entitic mass ]Ordered By: Rin Ramirez on 09-01-2023 MCH (RBC) [Entitic mass] 29.3 pg 24.7-34.3 [facility] MCHC Auto (RBC) [Mass/Vol]Or dered By: Rin Ramirez on 09-01-2023 MCHC (RBC) [Mass/Vol] 31.9 g/dL Low 32.0-35.0 [facility] MCV Auto (RBC) [Entitic vol] Ordered By: Rin Ramirez on 09-01-2023 MCV (RBC) [Entitic vol] 92.0 fL 80-100 [facility] Magnesium [Mass/volume] in S adriana or PlasmaOrdered By: Rin Ramirez on 09-01-2023 Magnesium [Mass/Vol] 1.9 mg/dL 1.9-2.7 [facility] Microalbumin [Mass/volume] i n UrineOrdered By: Rin Ramirez on 09-01-2023 Albumin DL <= 20 mg/L (U) [Mass/Vol] mg/dL High 0.0-1.8 [facility] Nitrite Test strip Ql (U)Ord ered By: Rin Ramirez on 09-01-2023 Nitrite Ql (U) Negative Negative [facility] No Panel InformationOrdered By: Rin Ramirez on 09-01-2023 Estimated GFR (CKD-EPI) 24.043 mL/Min [facility] Creatinine Clearance (Chem 21.55 [facility] Parathyrin.intact [Mass/volu me] in Serum or PlasmaOrdered By: Rin Ramirez on 09-01-2023 Parathyrin.intact [Mass/Vol] 188.2 pg/mL High 12-88 [facility] Phosphate [Mass/volume] in S adriana or PlasmaOrdered By: Rin Ramirez on 09-01-2023 Phosphate [Mass/Vol] 4.2 mg/dL 2.5-4.5 [facility] Platelet mean volume Auto (B ld) [Entitic vol]Ordered By: Rin Ramirez on 09-01-2023 Platelet mean volume (Bld) [Entitic vol] 8.1 fL 6.3-10.7 [facility] Platelets Auto (Bld) [#/Vol] Ordered By: Rin Ramirez on 09-01-2023 Platelets (Bld) [#/Vol] 214 10*3/uL 150-450 [facility] Potassium [Moles/volume] in Serum or PlasmaOrdered By: Rin Ramirez on 09-01-2023 Potassium [Moles/Vol] 4.7 mmol/L 3.5-5.1 [facility] Protein Auto test strip (U) [Mass/Vol]Ordered By: Rin Ramirez on 09-01-2023 Protein (U) [Mass/Vol] 300 mg/dL High Negative [facility] Protein [Mass/volume] in Uri neOrdered By: Rin Ramirez on 09-01-2023 Protein (U) [Mass/Vol] 199 mg/dL High 0-9 [facility] Prothrombin time (PT)Ordered By: Rin Ramirez on 09-01-2023 PT Coag (PPP) [Time] 11.4 s 9.0-12.9 [facility] Comment on above: A hematocrit value g reater than 55% may lead to inaccurate results in coagulation testing. Patients having hematocrit values >55% require a special collection tube for coagulation studies. Please contact the laboratory at [phone] for redraw instructions. RBC Auto (Bld) [#/Vol]Ordere d By: Rin Ramirez on 09-01-2023 RBC (Bld) [#/Vol] 2.72 10*6/uL Low 3.60-5.00 [facility] Serum or plasma anion gap de terminationOrdered By: Rin Ramirez on 09-01-2023 Anion gap [Moles/Vol] 9.2 mmol/L 6.0-15.0 [facility] Sodium [Moles/volume] in Ser um or PlasmaOrdered By: Rin Ramirez on 09-01-2023 Sodium [Moles/Vol] 142 mmol/L 136-145 [facility] Sodium [Moles/volume] in Uri neOrdered By: Rin Ramirez on 09-01-2023 Sodium (U) [Moles/Vol] 137 mmol/L [facility] Comment on above: No reference range e stablished Specific gravity Auto test s trip (U) [Rel density]Ordered By: Rin Ramirez on 09-01-2023 Specific gravity (U) [Rel density] 1.015 1.001-1.03 0 [facility] Squamous epithelial cells de tection in urine sediment by light microscopyOrdered By: Rin Ramirez on 09-01-2023 Epithelial cells.squamous LM Ql (Urine sed) 0-1 [HPF] 0-2 [facility] Transferrin [Mass/volume] in Serum or PlasmaOrdered By: Rin Ramirez on 09-01-2023 Transferrin [Mass/Vol] 257 mg/dL 203-[facility] Urea nitrogen [Mass/volume] in Serum or PlasmaOrdered By: Rin Ramirez on 09-01-2023 Urea nitrogen [Mass/Vol] 32 mg/dL High 7-25 [facility] Urine bacteria detection by automated methodOrdered By: Rin Ramirez on 09-01-2023 Bacteria Auto Ql (U) None seen None Seen [facility] [facility] Urine clarity by refractomet ry automatedOrdered By: Rin Ramirez on 09-01-2023 Clarity Refractometry automated (U) Cloudy Abnormal Clear [facility] Urine glucose measurement by automated test strip (mass/volume)Ordered By: Rin Ramirez on 09-01-2023 Glucose Auto test strip (U) [Mass/Vol] Normal mg/dL Normal [facility] Urine hemoglobin detection b y automated test stripOrdered By: Rin Ramirez on 09-01-2023 Hemoglobin Auto test strip Ql (U) 1+ High Negative [facility] Urine leukocyte esterase det ection by automated test stripOrdered By: Rin Ramirez on 09-01-2023 Leukocyte esterase Auto test strip Ql (U) Negative Negative [facility] Urine microalbumin/creatinin e mass ratioOrdered By: Rin Ramirez on 09-01-2023 Albumin/Creatinine DL <= 20 mg/L (U) [Mass ratio] TNP [facility] Comment on above: Test not performed Urine protein/creatinine rat ioOrdered By: Rin Ramirez on 09-01-2023 Protein/Creatinine (U) [Ratio] 3827 mg/g{Cre} High 0-200 [facility] Urobilinogen Auto test strip (U) [Mass/Vol]Ordered By: Rin Ramirez on 09-01-2023 Urobilinogen (U) [Mass/Vol] Normal mg/dL Normal [facility] Vitamin B12 ser/plasOrdered By: Rin Ramirez on 09-01-2023 Cobalamin (Vitamin B12) [Mass/Vol] 862 pg/mL 180-914 [facility] Vitamin D+Metabolites [Mass/ volume] in Serum or PlasmaOrdered By: Rin Ramirez on 09-01-2023 Vitamin D+Metabolites [Mass/Vol] 18.3 ng/mL Low 30-100 [facility] Comment on above: VITAMIN D STATUS 25( OH)VITAMIN D RANGE (ng/mL) Deficient <20 Insufficient 20 to <30Sufficient 30 to 100Reference: Jacoby MF,Rell NC, Xochitl WILLIAMSON, et al. Evaluation,treatment, and prevention of vitamin D deficiency; an Endocrine Society clinical practice guideline. JCEM. 2010; 96(7):1911-30. pH Auto test strip (U)Ordere d By: Rin Ramirez on 09-01-2023 pH (U) 7.0 [pH] 5.0-9.0 [facility] HbA1c HPLC (Bld) [Mass fract ion]on 08-20-2023 HbA1c (Bld) [Mass fraction] 5.7 % [facility] No Panel Informationon 08-19 Bedside Glucose 106 [facility] No Panel Informationon 08-04 Miscellaneous Test COMMENT . [facility] Comment on above: Test Ordered: [id number] Prot Electro+Interp, 24-Hr UrProtein,Total,Urine 132.1 mg/dL CB Reference Range: Not Estab.Prot,24hr calculated 2741 [H ] mg/24 hr CB Reference Range: 30-150Albumin, U 66.3 % CB Reference Range: .Ohocf-6-Gsdtdxjo, U 7.5 % CB Reference Range: .Wmtrs-2-Xxspybei, U 10.6 % CB Reference Range: .Beta Globulin, U 11.9 % CB Reference Range: .Gamma Globulin, U 3.7 % CB Reference Range: .M-Tr, % Note: % CB Not Observed Reference Range: Not ObservedM-Tr, mg/24 hr [facility] Reference Range: .Please note: Comment CB Reference Range: .Protein electrophoresis scan will follow via computer,mail, or knockdown worker delivery.P E Interpretation, U Comment CB Reference Range: .The urine protein electrophoresis pattern reflects thepresence of specific higher molecular mass proteins withmoderate proteinuria. This pattern may be characterized asrepresenting a severe selective glomerular nephropathyindicating increased glomerular permeability. Monoclonalprotein is not apparent.Performed at: [facility] [address] [id number] Director: Deshaun Hunter PhD, Phone: [phone] Activated partial thrombopla stin time (aPTT) in platelet poor plasma by coagulation aon 08-01-2023 aPTT Coag (PPP) [Time] 38.6 s 22.3-36.2 [facility] Atypical perinuclear antineu trophil cytoplasmic antibodies measurementon 08-01-2023 Neutrophil cytoplasmic Ab.perinuclear.atypica l IF (S) [Titer] <1:20 titer Neg:<1:20 [facility] Comment on above: The atypical pANCA p attern has been observed in asignificant percentage of patients with ulcerative colitis,primary sclerosing cholangitis and autoimmune hepatitis. Automated urine specific gra vity by refractometryon 08-01-2023 Specific gravity Refractometry automated (U) [Rel density] 1.020 1.005-1.02 5 [facility] Bilirubin Auto test strip (U ) [Mass/Vol]on 08-01-2023 Bilirubin (U) [Mass/Vol] Negative NEGATIVE [facility] Cefuroxime free [Mass/Vol]on 08-01-2023 Anti-Nuclear Antibody Profile Negative Negative [facility] Comment on above: Performed at: [facility] [address] [id number] Director: Deshaun Hunter PhD, Phone: [phone] Performed at: [facility] [id number] Director: Deshaun Hunter PhD, Phone: [phone] Color Auto (U)on 08-01-2023 Color (U) LT. YELLOW YELLOW [facility] Erythrocyte distribution wid th Auto (RBC) [Ratio]on 08-01-2023 Erythrocyte distribution width (RBC) [Ratio] 13.1 % 11.0-15.0 [facility] Estimated glomerular filtrat ion rate (GFR) non- Americanon 08-01-2023 GFR/1.73 sq M.predicted among non-blacks MDRD (S/P/Bld) [Vol rate/Area] 27 mL/min/{1.73_m2} >=60 [facility] Globulin Calc (S) [Mass/Vol] on 08-01-2023 Globulin (S) [Mass/Vol] 3.3 g/dL [facility] Glomerular basement membrane Ab [Units/volume] in Serum by Immunoassayon 08-01-2023 Glomerular basement membrane Ab IA Qn (S) <0.2 units 0.0-0.9 [facility] Comment on above: Performed at: [facility] [address] [id number] Director: Jhon Roberts MD, Phone: [phone] at: [facility] [address] [id number] Director: Deshaun Hunter PhD, Phone: [phone] HBV surface Ag IA Qlon 07-31 Hepatitis B Surface Antigen Negative Negative [facility] Comment on above: Performed at: [facility] [address] [id number] Director: Deshaun Hunter PhD, Phone: [phone] Performed at: [facility] [address] [id number] Director: Deshaun Hunter PhD, Phone: [phone] Hematocrit Auto (Bld) [Volum e fraction]on 08-01-2023 Hematocrit (Bld) [Volume fraction] 27.0 % 36.0-48.0 [facility] Hemoglobin [Mass/volume] in Bloodon 08-01-2023 Hemoglobin (Bld) [Mass/Vol] 7.8 g/dL 12.0-16.0 [facility] INR in Platelet poor plasma by Coagulation assayon 08-01-2023 INR Coag (PPP) [Relative time] 2.43 {INR} [facility] Comment on above: DESIRED INR:2.0-3.0 CONDITIONS NOT LISTED BELOW2.5-3.5 FOR PROSTHETIC HEART VALVE REPLACEMENT2.5-3.5 RECURRENT THROMBOSIS Immunofixation for Urineon 0 3-15-2024 Interpretation Immunofixation (U) [Interp] Comment . [facility] Comment on above: No monoclonality det ected.Performed at: [email or web address] [id number] Director: Deshaun Hunter PhD, Phone: [phone] Iron binding capacity [Mass/ volume] in Serum or Plasmaon 08-01-2023 Iron binding capacity [Mass/Vol] 270.0 ug/dL 250.0-450. 0 [facility] Iron saturation [Mass Fracti on] in Serum or Plasmaon 08-01-2023 Iron saturation [Mass fraction] 14.8 % [facility] Ketones Auto test strip (U) [Mass/Vol]on 08-01-2023 Ketones (U) [Mass/Vol] Negative NEGATIVE Fi [facility] Laboratory - Chemistry and C hemistry - challengeon 08-01-2023 Albumin [Mass/Vol] 2.7 g/dL 3.4-5.0 [facility] ALP [Catalytic activity/Vol] 50 U/L 46-116 [facility] ALT [Catalytic activity/Vol] 18 U/L 14-59 [facility] AST [Catalytic activity/Vol] 12 U/L 15-37 [facility] Bilirubin [Mass/Vol] 0.2 mg/dL 0.2-1.0 [facility] Calcium [Mass/Vol] 8.8 mg/dL 8.5-10.1 [facility] Chloride [Moles/Vol] 105 mmol/L 98-107 [facility] CO2 [Moles/Vol] 32.1 mmol/L 21.0-32.0 [facility] Cobalamin (Vitamin B12) [Mass/Vol] 603.0 pg/mL 193.0-986. 0 [facility] Creatinine [Mass/Vol] 1.80 mg/dL 0.55-1.02 [facility] Ferritin [Mass/Vol] 32.0 ng/mL 8.0-252.0 [facility] GFR/1.73 sq M.predicted MDRD (S/P/Bld) [Vol rate/Area] 33 mL/min/{1.73_m2} >=60 [facility] Glucose [Mass/Vol] 112 mg/dL 74-106 [facility] Iron [Mass/Vol] 40.0 ug/dL 50.0-170.0 [facility] Magnesium [Mass/Vol] 1.9 mg/dL 1.8-2.4 [facility] Potassium [Moles/Vol] 4.3 mmol/L 3.5-5.1 [facility] Protein [Mass/Vol] 6.0 g/dL 6.4-8.2 [facility] Sodium [Moles/Vol] 145 mmol/L 136-145 [facility] Urea nitrogen [Mass/Vol] 33.0 mg/dL 7.0-18.0 [facility] Urea nitrogen/Creatinine [Mass ratio] 18.3 mg/mg [facility] Laboratory - Urinalysison Protein (U) [Mass/Vol] 181.1 mg/dL <=11.9 [facility] Leukocytes [#/volume] correc katy for nucleated erythrocytes in Blood by Automated counon 08-01-2023 WBC corrected for nucl RBC Auto (Bld) [#/Vol] 6.4 10 3/uL 4.0-11.0 [facility] MCH Auto (RBC) [Entitic mass ]on 08-01-2023 MCH (RBC) [Entitic mass] 29.2 pg 26.7-34.0 [facility] MCHC Auto (RBC) [Mass/Vol]on 08-01-2023 MCHC (RBC) [Mass/Vol] 28.9 g/dL 29.9-35.2 [facility] MCV Auto (RBC) [Entitic vol] on 08-01-2023 MCV (RBC) [Entitic vol] 101.1 fL 81.0-99.0 [facility] Myeloperoxidase Ab [Units/vo lume] in Serum by Immunoassayon 08-01-2023 Myeloperoxidase Ab IA Qn (S) <0.2 units 0.0-0.9 [facility] No Panel Informationon 07-31 25-Hydroxy Vitamin D Total 16.6 ng/mL [facility] Comment on above: <20 ng/mL Vit D defi cient20-<30 ng/mL Vit D [id number] ng/mL Vit D sufficient>100 ng/mL Potential Toxicity Folate 13.00 ng/mL 8.60-58.90 [facility] Miscellaneous Test COMMENT . [facility] Comment on above: Test Ordered: [id number] Cryoglobulin, Ql, Serum, RflxCryoglobulin, Ql, Serum, Rflx Comment CB Reference Range: None detectedNone Detected at 72 hoursThis test was developed and its performance characteristicsdetermined by [employer]. It has not been cleared orapproved by the Food and Drug Administration.Performed at: [facility] [address] [id number] Director: Deshaun Hunter PhD, Phone: [phone] Parathyroid Hormone (Intact) 60 pg/mL [facility] Comment on above: Performed at: [facility] [address] [id number] Director: Deshaun Hunter PhD, Phone: [phone] Perinuclear ANCA (p-ANCA) Antibody <1:20 titer Neg:<1:20 [facility] Comment on above: The presence of [...] only by EIA. Ref. AM J Clin [id number];111:507-513. Phosphorus Level 3.8 mg/dL 2.6-4.7 [facility] Urine Random Creatinine 27.68 mg/dL 20.00-300. 00 [facility] Platelet mean volume Auto (B ld) [Entitic vol]on 08-01-2023 Platelet mean volume (Bld) [Entitic vol] 10.5 fL 9.5-13.5 [facility] Platelets Auto (Bld) [#/Vol] on 08-01-2023 Platelets (Bld) [#/Vol] 227 10 3/uL 150-450 [facility] Protein Auto test strip (U) [Mass/Vol]on 08-01-2023 Protein (U) [Mass/Vol] 100 mg/dL NEG/TRACE [facility] Proteinase 3 Ab [Units/volum e] in Serum by Immunoassayon 08-01-2023 Proteinase 3 Ab IA Qn (S) <0.2 units 0.0-0.9 [facility] Prothrombin time (PT)on 07-17 PT Coag (PPP) [Time] 24.5 s 9.0-11.6 [facility] RBC Auto (Bld) [#/Vol]on RBC (Bld) [#/Vol] 2.67 10 6/uL 4.20-5.40 [facility] Serum classic neutrophil cyt oplasmic antibody titer by immunofluorescenceon 08-01-2023 Neutrophil cytoplasmic Ab.classic IF (S) [Titer] <1:20 titer Neg:<1:20 [facility] Serum or plasma albumin/glob ulin mass ratioon 08-01-2023 Albumin/Globulin [Mass ratio] 0.8 {ratio} [facility] Serum or plasma anion gap de terminationon 08-01-2023 Anion gap [Moles/Vol] 12.2 mmol/L Fi [facility] Serum or plasma complement C 3 measurement (mass/volume)on 08-01-2023 Complement C3 [Mass/Vol] 140 mg/dL 82-167 [facility] Serum or plasma complement C 4 measurement (mass/volume)on 08-01-2023 Complement C4 [Mass/Vol] 30 mg/dL 12-38 [facility] Comment on above: Performed at: [address] [id number] Director: Deshaun Hunter PhD, Phone: [phone] Specific gravity Auto test s trip (U) [Rel density]on 08-01-2023 Specific gravity (U) [Rel density] CLEAR CLEAR [facility] Urine glucose measurement by test strip (mass/volume)on 08-01-2023 Glucose Test strip (U) [Mass/Vol] Negative NEGATIVE [facility] Urine hemoglobin detection b y automated test stripon 08-01-2023 Hemoglobin Auto test strip Ql (U) LARGE NEGATIVE [facility] Urine nitrite detection by a utomated test stripon 08-01-2023 Nitrite Auto test strip Ql (U) Negative NEGATIVE [facility] Urine protein/creatinine rat ioon 08-01-2023 Protein/Creatinine (U) [Ratio] 6.54 [facility] Urobilinogen Auto test strip (U) [Mass/Vol]on 08-01-2023 Urobilinogen Qn (U) 0.2 {Radha'U}/dL 0.2-1.0 [facility] pH Auto test strip (U)on pH (U) 7.0 [pH] 5.0-9.0 [facility] A1C HEMOGLOBINon 02-19-2023 HbA1c (Bld) [Mass fraction] 5.8 % [facility] Other Glucose - FINGER STICKon Glucose [Mass/Vol] 174 mg/dL [employer] Other HbA1c (Bld) [Mass fraction]o n 02-19-2023 A1C HEMOGLOBIN [facility] Other PROF 14(COMP METB)on 023 Albumin [Mass/Vol] 2.9 g/dL Critically low 3.4-5.0 [facility] Comment on above: Performed By: #### C MP #### [facility] [address] [place] [address] Dr. Lamar Lin Albumin/Globulin [Mass ratio] 0.8 {ratio} Normal [facility] Comment on above: Performed By: #### C MP #### [facility] [address] [place] [address] Dr. Lamar Lin ALP [Catalytic activity/Vol] 70 U/L Normal 46-116 [facility] Comment on above: Performed By: #### C MP #### [facility] [address] [place] [address] Dr. Lamar Lin ALT [Catalytic activity/Vol] 14 U/L Normal 14-59 [facility] Comment on above: Performed By: #### C MP #### [facility] [address] [address] [address] Lamar Lin Anion gap [Moles/Vol] 10.5 mmol/L Normal Th e [facility] Comment on above: Performed By: #### C MP #### [facility] [address] [address] [address] Lamar Lin AST [Catalytic activity/Vol] 10 U/L Critically low 15-37 [facility] Comment on above: Performed By: #### C MP #### [facility] [address] [address] [address] Lamar Lin Bilirubin [Mass/Vol] 0.2 mg/dL Normal 0.2-1.0 [facility] Comment on above: Performed By: #### C MP #### [facility] [address] [place] [address] Dr. Lamar Lin Calcium [Mass/Vol] 9.4 mg/dL Normal 8.5-10.1 [facility] Comment on above: Performed By: #### C MP #### [facility] [address] [place] [address] Dr. Lamar Lin Chloride [Moles/Vol] 104 mmol/L Normal 98-107 [facility] Comment on above: Performed By: #### C MP #### [facility] [address] [address] [address] Lamar Lin CO2 [Moles/Vol] 34.9 mmol/L Critically high 21.0-32.0 [facility] Comment on above: Performed By: #### C MP #### [facility] [address] [address] [address] Lamar Lin Creatinine [Mass/Vol] 0.96 mg/dL Normal 0.55-1.02 [facility] Comment on above: Performed By: #### C MP #### [facility] [address] [address] [address] Lamar Lin EGFR-AF [place]IZ[place] >60 Normal >=60 [facility] Comment on above: Performed By: #### C MP #### [facility] [address] [address] [address] Lamar Lin EGFR-NON AF [place] 56 mL/min/1.73m2 Critically low >=60 [facility] Comment on above: Performed By: #### C MP #### [facility] [address] [address] [address] Lamar Lin Globulin (S) [Mass/Vol] 3.7 g/dL Normal [facility] Comment on above: Performed By: #### C MP #### [facility] [address] [address] [address] Lamar Lin Glucose [Mass/Vol] 132 mg/dL Critically high 74-[address] [facility] Comment on above: Performed By: #### C MP #### [facility] [address] [address] [address] Lamar Lin Potassium [Moles/Vol] 4.4 mmol/L Normal 3.5-5.1 [facility] Comment on above: Performed By: #### C MP #### [facility] [address] [address] [address] Lamar Lin Protein [Mass/Vol] 6.6 g/dL Normal 6.4-8.2 [facility] Comment on above: Performed By: #### C MP #### [facility] [address] [address] [address] Lamar Lin Sodium [Moles/Vol] 145 mmol/L Normal 136-145 [facility] Comment on above: Performed By: #### C MP #### [facility] [address] [address] [address] Lamar Lin Urea nitrogen [Mass/Vol] 28.0 mg/dL Critically high 7.0-18.0 [facility] Comment on above: Performed By: #### C MP #### [facility] [address] [address] [address] Lamar Lin Urea nitrogen/Creatinine [Mass ratio] 29.2 mg/mg Normal [facility] Comment on above: Performed By: #### C MP #### [facility] [address] [address] [address] Lamar Lin A1C with Estimated Average G donald 08-19-2022 HbA1c (Bld) [Mass fraction] 6.500 % High 4.3-5.6 % [employer] Other HbA1c (Bld) [Mass fraction] 140 mg/dL [employer] [facility] Other Comprehensive Metabolic Pane nahun 08-19-2022 Albumin [Mass/Vol] 3.641480 g/dL Normal 3.5-5.7 g/dL [employer] Other Albumin/Globulin [Mass ratio] 1.7 {ratio} [employer] Other ALP [Catalytic activity/Vol] 56 U/L Normal 34-104 U/L [employer] [facility] Other ALT [Catalytic activity/Vol] 14 U/L Normal 7-52 U/L [employer] [facility] Other AST [Catalytic activity/Vol] 15 U/L Normal 13-39 U/L [employer] [facility] Other Bilirubin [Mass/Vol] 0.6117117 mg/dL Low 0.3- 1.0 mg/dL [employer] [facility] Other Calcium [Mass/Vol] 9.9421624 mg/dL Normal 8.6-10 .3 mg/dL [employer] [facility] Other Chloride [Moles/Vol] 103 mmol/L Normal 98-107 mmol/L [employer] [facility] Other CO2 [Moles/Vol] 34.57496418 mmol/L High 21.0-3 1.0 mmol/L [employer] [facility] Other Creatinine [Mass/Vol] 0.38088796 mg/dL Normal 0. 60-1.20 mg/dL [employer] Other GFR/1.73 sq M.predicted MDRD (S/P/Bld) [Vol rate/Area] mL/min/{1.73_m2} [employer] Other Glucose [Mass/Vol] 156 mg/dL High 70-100 mg/dL [employer] [facility] Other Potassium [Moles/Vol] 4.53327175 mmol/L Normal 3 .5-5.1 mmol/L [employer] Other Protein [Mass/Vol] 5.812799 g/dL Low 6.4-8.9 g/dL [employer] Other Sodium [Moles/Vol] 144 mmol/L Normal 136-145 mmol/L [employer] Other Urea nitrogen [Mass/Vol] 24 mg/dL Normal 7-25 mg/dL [employer] Other Comprehensive Metabolic Panel 2.1 g/dL [employer] Other Glucose - FINGER STICKon Glucose [Mass/Vol] 205 mg/dL [employer] Other Lipid Panelon 08-19-2022 Cholesterol [Mass/Vol] 172 mg/dL Normal 140-2 00 mg/dL [employer] [facility] Other Cholesterol in HDL [Mass/Vol] 33 mg/dL Low 35-85 mg/dL [employer] Other Cholesterol in LDL Elph Qn 95 mg/dL Normal 0-100 mg/dL [employer] Other Cholesterol.total/Chol esterol in HDL [Mass ratio] 5.2 {ratio} <5.0 [employer] [facility] Other Lipid Panel 219 mg/dL High 0-149 mg/dL [employer] Other Lipid Panel 43 mg/dL [employer] Other Micro[employer]b Creat Ratio,Uon Albumin DL <= 20 mg/L (U) [Mass/Vol] mg/dL High 0.0-1.8 [employer] [facility] Other Albumin/Creatinine DL <= 20 mg/L (U) [Mass ratio] TNP 0.0-30.0 [employer] [facility] Other Creatinine (U) [Mass/Vol] 52.9976936 mg/dL [employer] Other Vitamin B12on 08-19-2022 Cobalamin (Vitamin B12) [Mass/Vol] 345 pg/mL Normal 180-914 pg/mL [employer] Other A1C HEMOGLOBINon 02-27-2022 HbA1c (Bld) [Mass fraction] 6.1 % [employer] Other Glucose - FINGER STICKon Glucose [Mass/Vol] 159 mg/dL [employer] Other HbA1c (Bld) [Mass fraction]o n 02-27-2022 A1C HEMOGLOBIN [facility] Other FREE T4on 10-30-2021 Free T4 [Mass/Vol] 1.11 ng/dL Normal 0.76-1.46 [facility] Comment on above: Performed By: #### F T4 #### [facility] [address] [place] [address] Dr. Lamar Lin T4on 10-30-2021 T4 [Mass/Vol] 8.30 ug/dL Normal 4.80-13.90 [facility] Comment on above: Performed By: #### T 4, TSH #### [facility] [address] [address] [address] Lamar Lin TSHon 10-30-2021 TSH 2.475 uIU/mL Normal 0.358-3.74 0 [facility] Comment on above: Performed By: #### T 4, TSH #### [facility] [address] [place] [address] Dr. Lamar Lin Glucoseon 05-23-2021 Glucose [Mass/Vol] 167 mg/dL [facility] [employer] Other Vital Signs Date Time Vital Sign Value Performing Clinician Facility 11-16-2024 16:00-0400 Inhaled oxygen flow rate 2 L/min Anika Elaine SPANISHER-C Work Phone: [facility] 11-16-2024 15:47-0400 Heart rate 80 /min Anikasophy Marsmer SPANISHER-C Work Phone: [facility] 11-16-2024 15:47-0400 Respiratory rate 18 /min Anika Elaine SPANISHER-C Work Phone: [facility] 11-16-2024 15:14-0400 Body height 167.64 cm Anika Elaine SPANISHER-C Work Phone: [facility] 11-16-2024 12:56-0400 Body temperature 97.6 [degF] Anika Elaine SPANISHER-C Work Phone: [facility] 11-16-2024 12:56-0400 Diastolic blood pressure 74 mm[Hg] Anika Marsmer SPANISHER-C Work Phone: [facility] 11-16-2024 12:56-0400 SaO2% (BldA) [Mass fraction] 95 % Anika Elaine SPANISHER-C Work Phone: [facility] 11-16-2024 12:56-0400 Systolic blood pressure 145 mm[Hg] Anika Elaine SPANISHER-C Work Phone: [facility] 11-16-2024 06:00-0400 Body weight 87 kg Anikasophy Marsmer SPANISHER-C Work Phone: [facility] 11-13-2024 10:00-0400 Inhaled oxygen concentration 40 % Anika Elaine SPANISHER-C Work Phone: [facility] 11-02-2024 09:18-0400 Body height 152.4 cm Luci Gant DPM Work Phone: [facility] 11-02-2024 09:18-0400 Body mass index (BMI) [Ratio] 39.06 kg/m2 Luci Gant DPM Work Phone: [facility] 11-02-2024 09:18-0400 Body weight 90.72 kg Luci Gant DPM Work Phone: [facility] 10-26-2024 10:06-0400 Body height 152.4 cm Anikasophy Marsmer SPANISHER-C Work Phone: [facility] 10-26-2024 10:06-0400 Body mass index (BMI) [Ratio] 37.3 kg/m2 Anika Elaine SPANISHER-C Work Phone: [facility] 10-26-2024 10:06-0400 Body weight 86.69 kg Anika Elaine SPANISHER-C Work Phone: [facility] 10-26-2024 10:06-0400 Diastolic blood pressure 51 mm[Hg] Anikasophy Marsmer SPANISHER-C Work Phone: [facility] 10-26-2024 10:06-0400 Heart rate 59 /min Anikasophy Marsmer SPANISHER-C Work Phone: [facility] 10-26-2024 10:06-0400 Inhaled oxygen flow rate 2 L/min Anika Elaine SPANISHER-C Work Phone: [facility] 10-26-2024 10:06-0400 Respiratory rate 16 /min Anika Elaine SPANISHER-C Work Phone: [facility] 10-26-2024 10:06-0400 SaO2% (BldA) [Mass fraction] 94 % Anika Elaine SPANISHER-C Work Phone: [facility] 10-26-2024 10:06-0400 Systolic blood pressure 111 mm[Hg] Anika Elaine SPANISHER-C Work Phone: [facility] 10-05-2024 13:18-0400 Body height 152.4 cm Anikasophy Marsmer SPANISHER-C Work Phone: [facility] 10-05-2024 13:18-0400 Diastolic blood pressure 75 mm[Hg] Anika Elaine SPANISHER-C Work Phone: [facility] 10-05-2024 13:18-0400 Heart rate 64 /min Anika Elaine SPANISHER-C Work Phone: [facility] 10-05-2024 13:18-0400 Inhaled oxygen flow rate 2 L/min Anika Elaine SPANISHER-C Work Phone: [facility] 10-05-2024 13:18-0400 Respiratory rate 16 /min Anika Elaine SPANISHER-C Work Phone: [facility] 10-05-2024 13:18-0400 SaO2% (BldA) [Mass fraction] 96 % Anika Elaine SPANISHER-C Work Phone: [facility] 10-05-2024 13:18-0400 Systolic blood pressure 155 mm[Hg] Anika Elaine SPANISHER-C Work Phone: [facility] 09-13-2024 10:56-0400 Body height 152.4 cm Anika Elaine SPANISHER-C Work Phone: [facility] 09-13-2024 10:56-0400 Body mass index (BMI) [Ratio] 38.5 kg/m2 Anika Elaine SPANISHER-C Work Phone: [facility] 09-13-2024 10:56-0400 Body weight 89.41 kg Anika Elaine SPANISHER-C Work Phone: [facility] 09-13-2024 10:56-0400 Diastolic blood pressure 63 mm[Hg] Anika Elaine SPANISHER-C Work Phone: [facility] 09-13-2024 10:56-0400 Heart rate 95 /min Anika Elaine SPANISHER-C Work Phone: [facility] 09-13-2024 10:56-0400 Respiratory rate 18 /min Anika Elaine SPANISHER-C Work Phone: [facility] 09-13-2024 10:56-0400 SaO2% (BldA) [Mass fraction] 60 % Anika Elaine [employer]C Work Phone: [facility] 09-13-2024 10:56-0400 Systolic blood pressure 114 mm[Hg] Anika Henry [employer]ISH[employer]C Work Phone: [facility] 08-17-2024 14:03-0400 Body height 152.4 cm [facility] 08-17-2024 14:03-0400 Body mass index (BMI) [Ratio] 38.2 kg/m2 [facility] 08-17-2024 14:03-0400 Body weight 88.96 kg [facility] 08-17-2024 14:03-0400 Diastolic blood pressure 70 mm[Hg] [facility] 08-17-2024 14:03-0400 Heart rate 60 /min [facility] 08-17-2024 14:03-0400 Respiratory rate 18 /min [facility] 08-17-2024 14:03-0400 SaO2% (BldA) [Mass fraction] 94 % [facility] 08-17-2024 14:03-0400 Systolic blood pressure 132 mm[Hg] [facility] 08-05-2024 13:03-0400 Body height 165.1 cm Kaity Guevara MD Work Phone: [facility] 08-05-2024 13:03-0400 Body mass index (BMI) [Ratio] 33.15 kg/m2 Kaity Guevara MD Work Phone: [facility] 08-05-2024 13:03-0400 Body weight 90.36 kg Kaity Guevara MD Work Phone: [facility] 08-05-2024 13:03-0400 Diastolic blood pressure 58 mm[Hg] Kaity Guevara MD Work Phone: [facility] 08-05-2024 13:03-0400 Heart rate 59 /min Kaity Guevara MD Work Phone: [facility] 08-05-2024 13:03-0400 Systolic blood pressure 116 mm[Hg] Kaity Guevara MD Work Phone: [facility] 07-27-2024 13:51-0400 Body height 152.4 cm [facility] 07-27-2024 13:51-0400 Body mass index (BMI) [Ratio] 40.4 kg/m2 [facility] 07-27-2024 13:51-0400 Body weight 93.89 kg [facility] 07-27-2024 13:51-0400 Diastolic blood pressure 64 mm[Hg] [facility] 07-27-2024 13:51-0400 Heart rate 66 /min [facility] 07-27-2024 13:51-0400 Inhaled oxygen flow rate 2 L/min [facility] 07-27-2024 13:51-0400 Respiratory rate 18 /min [facility] 07-27-2024 13:51-0400 SaO2% (BldA) [Mass fraction] 97 % [facility] 07-27-2024 13:51-0400 Systolic blood pressure 115 mm[Hg] [facility] 2024 09:55-0500 Body height 152.4 cm [facility] 2024 09:55-0500 Body mass index (BMI) [Ratio] 42.6 kg/m2 [facility] 2024 09:55-0500 Body temperature 98.2 [degF] [facility] 2024 09:55-0500 Body weight 99.05 kg [facility] 2024 09:55-0500 Diastolic blood pressure 68 mm[Hg] [facility] 2024 09:55-0500 Heart rate 71 /min [facility] 2024 09:55-0500 Inhaled oxygen flow rate 2 L/min [facility] 2024 09:55-0500 Respiratory rate 20 /min [facility] 2024 09:55-0500 SaO2% (BldA) [Mass fraction] 95 % [facility] 2024 09:55-0500 Systolic blood pressure 145 mm[Hg] [facility] 06-17-2024 13:57-0500 Body height 152.4 cm [facility] 06-17-2024 13:57-0500 Body mass index (BMI) [Ratio] 39.6 kg/m2 [facility] 06-17-2024 13:57-0500 Body weight 92.19 kg [facility] 06-17-2024 13:57-0500 Diastolic blood pressure 61 mm[Hg] [facility] 06-17-2024 13:57-0500 Heart rate 66 /min [facility] 06-17-2024 13:57-0500 Respiratory rate 16 /min [facility] 06-17-2024 13:57-0500 SaO2% (BldA) [Mass fraction] 98 % [facility] 06-17-2024 13:57-0500 Systolic blood pressure 118 mm[Hg] [facility] 06-14-2024 13:56-0500 Body height 152.4 cm [facility] 06-14-2024 13:56-0500 Body mass index (BMI) [Ratio] 40.2 kg/m2 [facility] 06-14-2024 13:56-0500 Body weight 93.52 kg [facility] 06-14-2024 13:56-0500 Diastolic blood pressure 79 mm[Hg] [facility] 06-14-2024 13:56-0500 Heart rate 73 /min [facility] 06-14-2024 13:56-0500 Respiratory rate 18 /min [facility] 06-14-2024 13:56-0500 SaO2% (BldA) [Mass fraction] 95 % [facility] 06-14-2024 13:56-0500 Systolic blood pressure 158 mm[Hg] [facility] 06-03-2024 11:34-0500 Body height 152.4 cm [facility] 06-03-2024 11:34-0500 Body mass index (BMI) [Ratio] 39.4 kg/m2 [facility] 06-03-2024 11:34-0500 Body temperature 97 [degF] [facility] 06-03-2024 11:34-0500 Body weight 91.73 kg [facility] 06-03-2024 11:34-0500 Diastolic blood pressure 59 mm[Hg] [facility] 06-03-2024 11:34-0500 Heart rate 72 /min [facility] 06-03-2024 11:34-0500 Respiratory rate 16 /min [facility] 06-03-2024 11:34-0500 SaO2% (BldA) [Mass fraction] 95 % [facility] 06-03-2024 11:34-0500 Systolic blood pressure 140 mm[Hg] [facility] 05-04-2024 11:13-0500 Body height 152.4 cm [facility] 05-04-2024 11:13-0500 Body mass index (BMI) [Ratio] 41.1 kg/m2 [facility] 05-04-2024 11:13-0500 Body temperature 97.6 [degF] [facility] 05-04-2024 11:13-0500 Body weight 95.42 kg [facility] 05-04-2024 11:13-0500 Diastolic blood pressure 68 mm[Hg] [facility] 05-04-2024 11:13-0500 Heart rate 70 /min [facility] 05-04-2024 11:13-0500 Inhaled oxygen flow rate 2 L/min [facility] 05-04-2024 11:13-0500 Respiratory rate 18 /min [facility] 05-04-2024 11:13-0500 SaO2% (BldA) [Mass fraction] 94 % [facility] 05-04-2024 11:13-0500 Systolic blood pressure 143 mm[Hg] [facility] 04-20-2024 13:22-0500 Body temperature 97.5 [degF] [facility] 04-20-2024 13:22-0500 Diastolic blood pressure 60 mm[Hg] [facility] 04-20-2024 13:22-0500 Heart rate 61 /min [facility] 04-20-2024 13:22-0500 Inhaled oxygen flow rate 2 L/min [facility] 04-20-2024 13:22-0500 SaO2% (BldA) [Mass fraction] 96 % [facility] 04-20-2024 13:22-0500 Systolic blood pressure 105 mm[Hg] [facility] 03-16-2024 13:41-0400 Body height 152.4 cm Luci Gant DPM Work Phone: [facility] 03-16-2024 13:41-0400 Body mass index (BMI) [Ratio] 39.06 kg/m2 Luci Gant DPM Work Phone: [facility] 03-16-2024 13:41-0400 Body weight 90.72 kg Luci Gant DPM Work Phone: [facility] 03-02-2024 08:56-0400 Body height 152.4 cm [facility] 03-02-2024 08:56-0400 Body mass index (BMI) [Ratio] 39.4 kg/m2 [facility] 03-02-2024 08:56-0400 Body temperature 97.7 [degF] [facility] 03-02-2024 08:56-0400 Body weight 91.62 kg [facility] 03-02-2024 08:56-0400 Diastolic blood pressure 60 mm[Hg] [facility] 03-02-2024 08:56-0400 Heart rate 63 /min [facility] 03-02-2024 08:56-0400 Inhaled oxygen flow rate 2 L/min [facility] 03-02-2024 08:56-0400 Respiratory rate 18 /min [facility] 03-02-2024 08:56-0400 SaO2% (BldA) [Mass fraction] 97 % [facility] 03-02-2024 08:56-0400 Systolic blood pressure 114 mm[Hg] [facility] 02-10-2024 10:30-0400 Body height 152.4 cm [facility] 02-10-2024 10:30-0400 Body mass index (BMI) [Ratio] 38.7 kg/m2 [facility] 02-10-2024 10:30-0400 Body temperature 97.5 [degF] [facility] 02-10-2024 10:30-0400 Body weight 89.81 kg [facility] 02-10-2024 10:30-0400 Diastolic blood pressure 75 mm[Hg] [facility] 02-10-2024 10:30-0400 Heart rate 70 /min [facility] 02-10-2024 10:30-0400 Inhaled oxygen flow rate 2 L/min [facility] 02-10-2024 10:30-0400 Respiratory rate 18 /min [facility] 02-10-2024 10:30-0400 SaO2% (BldA) [Mass fraction] 97 % [facility] 02-10-2024 10:30-0400 Systolic blood pressure 160 mm[Hg] [facility] 01-27-2024 13:50-0400 Body height 152.4 cm [facility] 01-27-2024 13:50-0400 Body mass index (BMI) [Ratio] 39.6 kg/m2 [facility] 01-27-2024 13:50-0400 Body temperature 98.2 [degF] [facility] 01-27-2024 13:50-0400 Body weight 92.07 kg [facility] 01-27-2024 13:50-0400 Diastolic blood pressure 72 mm[Hg] [facility] 01-27-2024 13:50-0400 Heart rate 72 /min [facility] 01-27-2024 13:50-0400 Inhaled oxygen flow rate 2 L/min [facility] 01-27-2024 13:50-0400 Respiratory rate 18 /min [facility] 01-27-2024 13:50-0400 SaO2% (BldA) [Mass fraction] 98 % [facility] 01-27-2024 13:50-0400 Systolic blood pressure 166 mm[Hg] [facility] 01-13-2024 11:05-0400 Body height 152.4 cm [facility] 01-13-2024 11:05-0400 Body mass index (BMI) [Ratio] 39.6 kg/m2 [facility] 01-13-2024 11:05-0400 Body temperature 97.9 [degF] [facility] 01-13-2024 11:05-0400 Body weight 92 kg [facility] 01-13-2024 11:05-0400 Diastolic blood pressure 70 mm[Hg] [facility] 01-13-2024 11:05-0400 Heart rate 68 /min [facility] 01-13-2024 11:05-0400 Inhaled oxygen flow rate 2 L/min [facility] 01-13-2024 11:05-0400 Respiratory rate 18 /min [facility] 01-13-2024 11:05-0400 SaO2% (BldA) [Mass fraction] 96 % [facility] 01-13-2024 11:05-0400 Systolic blood pressure 128 mm[Hg] [facility] 12-30-2023 13:44-0400 Body height 152.4 cm [facility] 12-30-2023 13:44-0400 Body mass index (BMI) [Ratio] 39.6 kg/m2 [facility] 12-30-2023 13:44-0400 Body temperature 97.6 [degF] [facility] 12-30-2023 13:44-0400 Body weight 92.24 kg [facility] 12-30-2023 13:44-0400 Diastolic blood pressure 68 mm[Hg] [facility] 12-30-2023 13:44-0400 Heart rate 68 /min [facility] 12-30-2023 13:44-0400 Inhaled oxygen flow rate 2 L/min [facility] 12-30-2023 13:44-0400 Respiratory rate 18 /min [facility] 12-30-2023 13:44-0400 SaO2% (BldA) [Mass fraction] 96 % [facility] 12-30-2023 13:44-0400 Systolic blood pressure 131 mm[Hg] [facility] 12-11-2023 11:31-0400 Body height 152.4 cm [facility] 12-11-2023 11:31-0400 Body mass index (BMI) [Ratio] 40.8 kg/m2 [facility] 12-11-2023 11:31-0400 Body temperature 97.1 [degF] [facility] 12-11-2023 11:31-0400 Body weight 94.85 kg [facility] 12-11-2023 11:31-0400 Diastolic blood pressure 60 mm[Hg] [facility] 12-11-2023 11:31-0400 Heart rate 68 /min [facility] 12-11-2023 11:31-0400 Inhaled oxygen flow rate 2 L/min [facility] 12-11-2023 11:31-0400 Respiratory rate 18 /min [facility] 12-11-2023 11:31-0400 SaO2% (BldA) [Mass fraction] 95 % [facility] 12-11-2023 11:31-0400 Systolic blood pressure 130 mm[Hg] [facility] 12-08-2023 10:40-0400 Body height 152.4 cm [facility] 12-08-2023 10:40-0400 Body mass index (BMI) [Ratio] 40.8 kg/m2 [facility] 12-08-2023 10:40-0400 Body weight 94.97 kg [facility] 12-08-2023 10:40-0400 Diastolic blood pressure 61 mm[Hg] [facility] 12-08-2023 10:40-0400 Heart rate 56 /min [facility] 12-08-2023 10:40-0400 Respiratory rate 18 /min [facility] 12-08-2023 10:40-0400 SaO2% (BldA) [Mass fraction] 95 % [facility] 12-08-2023 10:40-0400 Systolic blood pressure 119 mm[Hg] [facility] 11-18-2023 10:03-0400 Body height 152.4 cm ALFREDO Henry Work Phone: [facility] 11-18-2023 10:03-0400 Body mass index (BMI) [Ratio] 39.2 kg/m2 [employer] Anika Henry Work Phone: [facility] 11-18-2023 10:03-0400 Body temperature 98 [degF] [employer] Anika Marsmer Work Phone: [facility] 11-18-2023 10:03-0400 Body weight 91.22 kg [employer] Anika Henry Work Phone: [facility] 11-18-2023 10:03-0400 Diastolic blood pressure 71 mm[Hg] [employer] Anika Marsmer Work Phone: [facility] 11-18-2023 10:03-0400 Heart rate 70 /min [employer] Anika Marsmer Work Phone: [facility] 11-18-2023 10:03-0400 Inhaled oxygen flow rate 2 L/min [employer] Anika Marsmer Work Phone: [facility] 11-18-2023 10:03-0400 Respiratory rate 16 /min [employer] Anika Henry Work Phone: [facility] 11-18-2023 10:03-0400 SaO2% (BldA) [Mass fraction] 94 % [employer] Anika Henry Work Phone: [facility] 11-18-2023 10:03-0400 Systolic blood pressure 162 mm[Hg] [employer] Anika Marsmer Work Phone: [facility] 11-05-2023 14:04-0400 Body height 152.4 cm [employer] Anika Marsmer Work Phone: [facility] 11-05-2023 14:04-0400 Body mass index (BMI) [Ratio] 39 kg/m2 [employer] Anika Marsmer Work Phone: [facility] 11-05-2023 14:04-0400 Body temperature 98.1 [degF] [employer] Anika Marsmer Work Phone: [facility] 11-05-2023 14:04-0400 Body weight 90.71 kg [employer] Anikasophy Marsmer Work Phone: [facility] 11-05-2023 14:04-0400 Diastolic blood pressure 68 mm[Hg] [employer] Anika Elaine Work Phone: [facility] 11-05-2023 14:04-0400 Heart rate 56 /min [employer] Anika Elaine Work Phone: [facility] 11-05-2023 14:04-0400 Inhaled oxygen flow rate 2 L/min [employer] Anika Elaine Work Phone: [facility] 11-05-2023 14:04-0400 Respiratory rate 18 /min [employer] Anika Elaine Work Phone: [facility] 11-05-2023 14:04-0400 SaO2% (BldA) [Mass fraction] 92 % [employer] Anikasophy Marsmer Work Phone: [facility] 11-05-2023 14:04-0400 Systolic blood pressure 136 mm[Hg] [employer] Anika Elaine Work Phone: [facility] 10-15-2023 13:42-0400 Body height 152.4 cm [employer] Anikasophy Marsmer Work Phone: [facility] 10-15-2023 13:42-0400 Body mass index (BMI) [Ratio] 38.7 kg/m2 [employer] Anika Elaine Work Phone: [facility] 10-15-2023 13:42-0400 Body temperature 97.6 [degF] [employer] Anika Elaine Work Phone: [facility] 10-15-2023 13:42-0400 Body weight 90.03 kg [employer] Anika Elaine Work Phone: [facility] 10-15-2023 13:42-0400 Diastolic blood pressure 70 mm[Hg] [employer] Anika Elaine Work Phone: [facility] 10-15-2023 13:42-0400 Heart rate 60 /min [employer] Anika Elaine Work Phone: [facility] 10-15-2023 13:42-0400 Inhaled oxygen flow rate 2 L/min [employer] Anika Elaine Work Phone: [facility] 10-15-2023 13:42-0400 Respiratory rate 18 /min [employer] Anika Elaine Work Phone: [facility] 10-15-2023 13:42-0400 SaO2% (BldA) [Mass fraction] 97 % [employer] Anika Elaine Work Phone: [facility] 10-15-2023 13:42-0400 Systolic blood pressure 143 mm[Hg] [employer] Anika Elaine Work Phone: [facility] 09-23-2023 09:37-0400 Body height 152.4 cm [employer] Anika Elaine Work Phone: [facility] 09-23-2023 09:37-0400 Body mass index (BMI) [Ratio] 38.5 kg/m2 [employer] Anika Elaine Work Phone: [facility] 09-23-2023 09:37-0400 Body temperature 97.9 [degF] [employer] Anikasophy Marsmer Work Phone: [facility] 09-23-2023 09:37-0400 Body weight 89.44 kg [employer] Anika Elaine Work Phone: [facility] 09-23-2023 09:37-0400 Diastolic blood pressure 72 mm[Hg] [employer] Anika Elaine Work Phone: [facility] 09-23-2023 09:37-0400 Heart rate 67 /min [employer] Anika Elaine Work Phone: [facility] 09-23-2023 09:37-0400 Inhaled oxygen flow rate 2 L/min [employer] Anika Elaine Work Phone: [facility] 09-23-2023 09:37-0400 Respiratory rate 18 /min [employer] Anika Elaine Work Phone: [facility] 09-23-2023 09:37-0400 SaO2% (BldA) [Mass fraction] 97 % [employer] Anika Elaine Work Phone: [facility] 09-23-2023 09:37-0400 Systolic blood pressure 149 mm[Hg] [employer] Anika Elaine Work Phone: [facility] 09-09-2023 14:15-0400 Body height 152.4 cm [employer] Anika Elaine Work Phone: [facility] 09-09-2023 14:15-0400 Body mass index (BMI) [Ratio] 38.9 kg/m2 [employer] Anika Elaine Work Phone: [facility] 09-09-2023 14:15-0400 Body temperature 97.2 [degF] [employer] Anika Elaine Work Phone: [facility] 09-09-2023 14:15-0400 Body weight 90.49 kg [employer] Anika Elaine Work Phone: [facility] 09-09-2023 14:15-0400 Diastolic blood pressure 77 mm[Hg] [employer] Anika Elaine Work Phone: [facility] 09-09-2023 14:15-0400 Heart rate 70 /min [employer] Anika Elaine Work Phone: [facility] 09-09-2023 14:15-0400 Inhaled oxygen flow rate 2 L/min [employer] Anika Elaine Work Phone: [facility] 09-09-2023 14:15-0400 Respiratory rate 18 /min [employer] Anika Elaine Work Phone: [facility] 09-09-2023 14:15-0400 SaO2% (BldA) [Mass fraction] 97 % [employer] Anika Elaine Work Phone: [facility] 09-09-2023 14:15-0400 Systolic blood pressure 147 mm[Hg] [employer] Anika Elaine Work Phone: [facility] 09-01-2023 11:35-0400 Diastolic blood pressure 73 mm[Hg] [employer] Anika Elaine Work Phone: [facility] 09-01-2023 11:35-0400 Heart rate 62 /min [employer] Anika Elaine Work Phone: [facility] 09-01-2023 11:35-0400 Inhaled oxygen flow rate 2 L/min [employer] Anika Elaine Work Phone: [facility] 09-01-2023 11:35-0400 Respiratory rate 18 /min [employer] Anika Elaine Work Phone: [facility] 09-01-2023 11:35-0400 SaO2% (BldA) [Mass fraction] 96 % [employer] Anika Elaine Work Phone: [facility] 09-01-2023 11:35-0400 Systolic blood pressure 164 mm[Hg] [employer] Anika Elaine Work Phone: [facility] 09-01-2023 09:17-0400 Body height 152.4 cm [employer] Anika Elaine Work Phone: [facility] 09-01-2023 09:17-0400 Body weight 93.44 kg [employer] Anika Elaine Work Phone: [facility] 08-20-2023 10:20-0400 Body height 152.4 cm [facility] 08-20-2023 10:20-0400 Body mass index (BMI) [Ratio] 40.2 kg/m2 [facility] 08-20-2023 10:20-0400 Body weight 93.44 kg [facility] 08-20-2023 10:20-0400 Diastolic blood pressure 84 mm[Hg] [facility] 08-20-2023 10:20-0400 Heart rate 73 /min [facility] 08-20-2023 10:20-0400 Inhaled oxygen flow rate 2 L/min [facility] 08-20-2023 10:20-0400 Respiratory rate 18 /min [facility] 08-20-2023 10:20-0400 SaO2% (BldA) [Mass fraction] 94 % [facility] 08-20-2023 10:20-0400 Systolic blood pressure 176 mm[Hg] [facility] 08-13-2023 10:41-0400 Body height 152.4 cm [facility] 08-13-2023 10:41-0400 Body mass index (BMI) [Ratio] 40.1 kg/m2 [facility] 08-13-2023 10:41-0400 Body temperature 97.5 [degF] [facility] 08-13-2023 10:41-0400 Body weight 93.15 kg [facility] 08-13-2023 10:41-0400 Diastolic blood pressure 72 mm[Hg] [facility] 08-13-2023 10:41-0400 Heart rate 77 /min [facility] 08-13-2023 10:41-0400 Inhaled oxygen flow rate 2 L/min [facility] 08-13-2023 10:41-0400 Respiratory rate 20 /min [facility] 08-13-2023 10:41-0400 SaO2% (BldA) [Mass fraction] 95 % [facility] 08-13-2023 10:41-0400 Systolic blood pressure 162 mm[Hg] [facility] 04-22-2023 10:20-0500 Body height 152.4 cm [employer] Other [facility] 04-22-2023 10:20-0500 Body mass index (BMI) [Ratio] 39.64 kg/m2 [employer] Other [employer] Other 04-22-2023 10:20-0500 Body weight 92.08 kg [employer] Other [employer] Other 04-22-2023 10:20-0500 Body weight 92.07 kg [facility] 04-22-2023 10:20-0500 Diastolic blood pressure 70 mm[Hg] Rin Darbys Other [facility] 04-22-2023 10:20-0500 Respiratory rate 18 /min Rin Darbys Other [facility] [employer] Other 04-22-2023 10:20-0500 SaO2% (BldA) [Mass fraction] 97 % Rin Darbys Other [facility] [employer] Other 04-22-2023 10:20-0500 Systolic blood pressure 138 mm[Hg] Rin Darbys Other [facility] 02-19-2023 09:15-0400 Body height 152.4 cm Tondra Mapus Other [employer] Other 02-19-2023 09:15-0400 Body mass index (BMI) [Ratio] 40.21 kg/m2 Tondra Mapus Other [employer] Other 02-19-2023 09:15-0400 Body weight 93.4 kg Tondra Mapus Other [employer] Other 02-19-2023 09:15-0400 Diastolic blood pressure 64 mm[Hg] Tondra Mapus Other [employer] Other 02-19-2023 09:15-0400 Respiratory rate 18 /min Tondra Mapus Other [employer] Other 02-19-2023 09:15-0400 SaO2% (BldA) [Mass fraction] 95 % Tondra Mapus Other [employer] Other 02-19-2023 09:15-0400 Systolic blood pressure 129 mm[Hg] Tondra Mapus Other [employer] Other 02-12-2023 09:00-0400 Body height 152.4 cm Tondra Mapus Other [employer] Other 02-12-2023 09:00-0400 Body mass index (BMI) [Ratio] 40.07 kg/m2 Tondra Mapus Other [employer] Other 02-12-2023 09:00-0400 Body weight 93.08 kg Tondra Mapus Other [employer] Other 10-22-2022 10:00-0400 Body height 152.4 cm [employer] Other [employer] Other 10-22-2022 10:00-0400 Body mass index (BMI) [Ratio] 40.23 kg/m2 Aziz Kihonhous Other [employer] Other 10-22-2022 10:00-0400 Body temperature 97.4 [degF] Aziz Bakhous Other [employer] Other 10-22-2022 10:00-0400 Body weight 93.44 kg Aziz Bakhous Other [employer] Other 10-22-2022 10:00-0400 Diastolic blood pressure 78 mm[Hg] Aziz Bakhous Other [employer] Other 10-22-2022 10:00-0400 Respiratory rate 20 /min Rin Ramirez Other [employer] Other 10-22-2022 10:00-0400 SaO2% (BldA) [Mass fraction] 92 % iRn Ramirez Other [employer] Other 10-22-2022 10:00-0400 Systolic blood pressure 146 mm[Hg] Rin Darbys Other [employer] Other 08-19-2022 10:15-0400 Body height 152.4 cm Tondra Mapus Other [employer] Other 08-19-2022 10:15-0400 Body mass index (BMI) [Ratio] 39.82 kg/m2 Tondra Mapus Other [employer] Other 08-19-2022 10:15-0400 Body weight 92.49 kg Tondra Mapus Other [employer] Other 08-19-2022 10:15-0400 Diastolic blood pressure 63 mm[Hg] Tondra Mapus Other [employer] Other 08-19-2022 10:15-0400 Respiratory rate 20 /min Tondra Mapus Other [employer] Other 08-19-2022 10:15-0400 SaO2% (BldA) [Mass fraction] 95 % Tondra Mapus Other [employer] Other 08-19-2022 10:15-0400 Systolic blood pressure 136 mm[Hg] Tondra Mapus Other [employer] Other 02-27-2022 10:15-0400 Body height 152.4 cm Tondra Mapus Other [employer] Other 02-27-2022 10:15-0400 Body mass index (BMI) [Ratio] 41.79 kg/m2 Tondra Mapus Other [employer] [facility] Other 02-27-2022 10:15-0400 Body weight 97.07 kg Tondra Mapus Other [employer] [facility] Other 02-27-2022 10:15-0400 Diastolic blood pressure 55 mm[Hg] Tondra Mapus Other [employer] Other 02-27-2022 10:15-0400 Respiratory rate 20 /min Tondra Mapus Other [employer] Other 02-27-2022 10:15-0400 SaO2% (BldA) [Mass fraction] 97 % Tondra Mapus Other [employer] Other 02-27-2022 10:15-0400 Systolic blood pressure 130 mm[Hg] Tondra Mapus Other [employer] Other 10-23-2021 11:00-0400 Body height 152.4 cm [email or web address] Other [employer] Other 10-23-2021 11:00-0400 Body mass index (BMI) [Ratio] 44.05 kg/m2 [employer] Other [employer] Other 10-23-2021 11:00-0400 Body temperature 97.5 [degF] Rin Ramirez Other [employer] Other 10-23-2021 11:00-0400 Body weight 102.33 kg Rin Ramirez Other [employer] Other 10-23-2021 11:00-0400 Diastolic blood pressure 72 mm[Hg] Rin Ramirez Other [employer] Other 10-23-2021 11:00-0400 Respiratory rate 20 /min Rin Ramirez Other [employer] Other 10-23-2021 11:00-0400 SaO2% (BldA) [Mass fraction] 94 % Rin Ramirez Other [employer] Other 10-23-2021 11:00-0400 Systolic blood pressure 135 mm[Hg] Rin Ramirez Other [employer] Other 05-23-2021 10:15-0500 Body height 152.4 cm Chester Mullinsus Other [employer] Other 05-23-2021 10:15-0500 Body mass index (BMI) [Ratio] 43.25 kg/m2 Tondra Mapus Other [employer] Other 05-23-2021 10:15-0500 Body weight 100.47 kg Tondra Mapus Other [employer] Other 05-23-2021 10:15-0500 Diastolic blood pressure 57 mm[Hg] Tondra Mapus Other [employer] Other 05-23-2021 10:15-0500 Respiratory rate 20 /min Chester Lin Other [employer] Other 05-23-2021 10:15-0500 SaO2% (BldA) [Mass fraction] 96 % Tondra Susannaus Other [employer] Other 05-23-2021 10:15-0500 Systolic blood pressure 131 mm[Hg] Tona Susannaus Other [employer] Other Encounters Encounter Date Encounter Type Care Provider Facility Start: 11-16-2024 End: 11-16-2024 [facility] Work Phone: [facility] Medication Management Start: 11-16-2024 Non-patient / Non-visit Ryne field MD -[facility] Infect Dis Work Phone: Start: 11-09-2024 Non-patient / Non-visit Km Pierce MD -[facility] Rehab & Spine Work Phone: Start: 11-09-2024 End: 11-16-2024 Evaluation and management of inpatient Anika Henry Facility:[facility] Start: 11-07-2024 End: 11-07-2024 ambulatory Quincy Rai Facility:[facility] Start: 11-07-2024 End: 11-07-2024 Departed Referred Quincy Kent MD -[facility] Start: 11-02-2024 End: 11-02-2024 Bamboo flowsheet Luci Gant DPM Work Phone: [facility] Start: 11-02-2024 End: 11-02-2024 Bamboo flowsheet Luci Gant DPM Work Phone: [facility] Start: 11-02-2024 End: 11-02-2024 Patient encounter procedure Luci Gant DPM Work Phone: [facility] Comment on above: Dermatophytosis of n ail (Primary Dx); Dystrophic nail; Pain around toenail, right foot; Pain around toenail, left foot Start: 11-02-2024 End: 11-02-2024 ambulatory LUCI GANT Not Available Start: 10-27-2024 End: 10-27-2024 [facility] Medication Management Comment on above: PAF (paroxysmal atri al fibrillation) ([facility]-H[facility]) (Primary Dx) Start: 10-27-2024 End: 10-27-2024 ambulatory [facility] MEDICATION [facility]NAG[facility] Start: 10-26-2024 End: 10-26-2024 ambulatory Anika Henry SPANISHER-C Work Phone: [place] Work Phone: Start: 10-26-2024 End: 10-26-2024 Patient encounter procedure Anika Henry SPANISHER-C Work Phone: [facility] Nephrology [facility] Work Phone: Start: 10-22-2024 Non-patient / Non-visit Anika Henry SPANISHER-C Work Phone: [facility] Work Phone: Start: 10-20-2024 End: 10-20-2024 Telephone encounter [facility] Medication Management Work Phone: [facility]acy Medication Management Start: 10-10-2024 End: 10-12-2024 Refill Anita Mccoy MD Work Phone: [facility] Pulmonary[facility]Sleep [facility] Start: 10-05-2024 End: 10-05-2024 Patient encounter procedure Anika Henry SPANISHER-C Work Phone: [facility] Neph Sand Work Phone: Start: 10-04-2024 End: 10-04-2024 ambulatory Marie Jimenes MD Facility:[facility] Start: 09-29-2024 Non-patient / Non-visit Anika Henry SPANISHER-C Work Phone: [facility] Work Phone: Start: 09-28-2024 End: 09-28-2024 Follow-up encounter [facility] - Pharmacy Medication Management Comment on above: PAF (paroxysmal atri al fibrillation) ([facility]-H[facility]) (Primary Dx) Start: 09-28-2024 End: 09-28-2024 ambulatory [facility] MEDICATION MANAGEMENT [facility] Start: 09-13-2024 End: 09-13-2024 ambulatory Anika Henry SPANISHER-C Work Phone: [place] Work Phone: Start: 09-13-2024 End: 09-13-2024 Patient encounter procedure Anika Henry SPANISHER-C Work Phone: [facility] Work Phone: Start: 09-10-2024 End: 09-10-2024 Follow-up encounter [facility] - Pharmacy Medication Management Comment on above: PAF (paroxysmal atri al fibrillation) ([facility]) (Primary Dx) Start: 09-10-2024 End: 09-10-2024 ambulatory [facility] MEDICATION MANAGEMENT [facility] Start: 09-09-2024 End: 09-10-2024 Refill Concha Michele RN [facility] Comment on above: Med Refill Start: 09-08-2024 End: 09-10-2024 Refill Ashley SOLORZANO Work Phone: [facility] Comment on above: Med Refill Start: 09-02-2024 Non-patient / Non-visit Anika Henry SPANISHER-C Work Phone: [facility] Work Phone: Start: 09-01-2024 End: 09-01-2024 Patient encounter procedure Anika Henry SPANISHER-C Work Phone: [facility] [address] Work Phone: Start: 09-01-2024 End: 09-01-2024 ambulatory Anika Deepa Elaine SPANISHER-C Work Phone: [facility] Work Phone: Start: 08-25-2024 End: 08-25-2024 ambulatory [facility] Start: 08-24-2024 End: 08-24-2024 Follow-up encounter [facility] - Pharmacy Medication Management Comment on above: PAF (paroxysmal atri al fibrillation) ([facility]) (Primary Dx) Start: 08-24-2024 End: 08-24-2024 ambulatory [facility] Start: 08-23-2024 End: 08-23-2024 Refill Concha Michele RN [facility] Comment on above: Med Refill Start: 08-17-2024 End: 08-17-2024 ambulatory [place] Work Phone: Start: 08-17-2024 End: 08-17-2024 Patient encounter procedure [facility] Work Phone: Start: 08-05-2024 End: 08-05-2024 Office outpatient visit 25 minutes Kaity Guevara MD Work Phone: [facility] Comment on above: PAF (paroxysmal atri al fibrillation) (CMS-HCC) (Primary Dx); FCI current use of amiodarone; 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) Start: 08-05-2024 End: 08-05-2024 Follow-up encounter [facility] - Pharmacy Medication Management Comment on above: PAF (paroxysmal atri al fibrillation) (CMS-HCC) (Primary Dx) Start: 08-05-2024 End: 08-05-2024 ambulatory KAITY GUEVARA [facility] Start: 08-04-2024 End: 08-04-2024 Telephone encounter Enedelia Livingston CMA [facility] Start: 08-04-2024 Non-patient / Non-visit [facility] Work Phone: Start: 07-27-2024 End: 07-27-2024 ambulatory [place] Work Phone: Start: 07-27-2024 End: 07-27-2024 Patient encounter procedure [facility] Work Phone: Start: 07-20-2024 Non-patient / Non-visit [facility] Work Phone: Start: 07-14-2024 End: 07-14-2024 Follow-[facility] - Pharmacy Medication Management Comment on above: PAF (paroxysmal atri al fibrillation) ([facility]) (Primary Dx) Start: 07-14-2024 End: 07-14-2024 ambulatory [facility] MEDICATION MANAGEMENT [facility] Start: 2024 End: 2024 ambulatory [place] Work Phone: Start: 2024 End: 2024 Patient encounter procedure [facility] Work Phone: Start: 06-30-2024 End: 06-30-2024 Bamboo flowsheet Luci Gant DPM Work Phone: [facility] Start: 06-30-2024 End: 06-30-2024 Bamboo flowsheet Luci Gant DPM Work Phone: [facility] Start: 06-30-2024 End: 06-30-2024 Patient encounter procedure Luci Gant DPM Work Phone: [facility] Comment on above: Dermatophytosis of n ail (Primary Dx); Dystrophic nail; Pain around toenail, right foot; Pain around toenail, left foot Start: 06-30-2024 End: 06-30-2024 ambulatory LUCI Kimberly LENTZ Not Available Start: 06-17-2024 End: 06-17-2024 ambulatory [place] Work Phone: Start: 06-17-2024 End: 06-17-2024 Patient encounter procedure [facility] Work Phone: Start: 06-16-2024 End: 06-16-2024 Follow-up encounter [facility] Medication Therapy Management Comment on above: PAF (paroxysmal atri al fibrillation) ([facility]) (Primary Dx) Start: 06-16-2024 End: 06-16-2024 ambulatory ASHLEY ÁLVAREZ [facility] Start: 06-14-2024 End: 06-14-2024 ambulatory [place] Work Phone: Start: 06-14-2024 End: 06-14-2024 Patient encounter procedure [facility] Work Phone: Start: 06-10-2024 Non-patient / Non-visit [facility] Work Phone: Start: 06-03-2024 End: 06-03-2024 ambulatory [place] Work Phone: Start: 06-03-2024 End: 06-03-2024 Patient encounter procedure [facility] [place] Work Phone: Start: 05-25-2024 Non-patient / Non-visit [facility] Work Phone: Start: 05-20-2024 End: 05-20-2024 Orders Only Alicia Galvan RN [facility] Comment on above: SOB (shortness of br eath) (Primary Dx); Abnormal CXR Start: 05-17-2024 End: 05-17-2024 Follow-up encounter [facility] [employer] [facility] Medication Therapy Management Comment on above: PAF (paroxysmal atri al fibrillation) ([facility]) (Primary Dx) Start: 05-17-2024 End: 05-17-2024 ambulatory [facility] MEDICATION MANAGEMENT [facility] Start: 05-14-2024 End: 05-14-2024 ambulatory ANITA Manoj MCCOY [facility] Start: 05-10-2024 End: 05-10-2024 ambulatory ANITA Manoj NADINE [facility] Start: 05-07-2024 End: 05-10-2024 Refill Tr Jimenez [employer] Work Phone: [facility] Comment on above: Med Refill Start: 05-05-2024 End: 05-10-2024 Refill Tr Jimenez [employer] Work Phone: [facility] Comment on above: Med Refill Start: 05-04-2024 End: 05-04-2024 Patient encounter procedure [facility] Work Phone: Start: 05-03-2024 End: 05-03-2024 [facility] Start: 04-28-2024 Non-patient / Non-visit [facility] Work Phone: Start: 04-20-2024 End: 04-20-2024 Patient encounter procedure [facility] Work Phone: Start: 04-14-2024 End: 04-14-2024 [facility]ulatory [facility] Start: 04-13-2024 Non-patient / Non-visit [facility] Work Phone: Start: 04-07-2024 End: 04-07-2024 ambulatory ANITA E [facility] Start: 03-30-2024 End: 03-30-2024 ambulatory [place] Work Phone: Start: 03-30-2024 End: 03-30-2024 Patient encounter procedure [facility] [place] Work Phone: Start: 03-23-2024 End: 03-23-2024 ambulatory [place] Work Phone: Start: 03-23-2024 End: 03-23-2024 Patient encounter procedure [facility] [place] Work Phone: Start: 03-17-2024 Non-patient / Non-visit [facility] Work Phone: Start: 03-16-2024 End: 03-16-2024 Bamboo flowsheet Luci Gant DPM Work Phone: [facility] Start: 03-16-2024 End: 03-16-2024 Bamboo flowsheet Luci Gant DPM Work Phone: [facility] Start: 03-16-2024 End: 03-16-2024 ambulatory LUCI GANT Not Available Start: 03-16-2024 End: 03-16-2024 Patient encounter procedure Luci Gant DPM Work Phone: [facility] Comment on above: Dermatophytosis of n ail (Primary Dx); Dystrophic nail; Pain around toenail, right foot; Pain around toenail, left foot Start: 03-03-2024 End: 03-03-2024 [facility]ulatory [facility] Start: 03-02-2024 End: 03-02-2024 ambulatory [place] Work Phone: Start: 03-02-2024 End: 03-02-2024 Patient encounter procedure [facility] [place] Work Phone: Start: 02-23-2024 Non-patient / Non-visit [facility] Work Phone: Start: 02-10-2024 End: 02-10-2024 ambulatory [place] Work Phone: Start: 02-10-2024 End: 02-10-2024 Patient encounter procedure [facility] [place] [place] Work Phone: Start: 02-03-2024 Non-patient / Non-visit [facility] Work Phone: Start: 01-28-2024 End: 01-28-2024 ambulatory JOBST SERVICE [facility] Start: 01-27-2024 End: 01-27-2024 ambulatory [place] Work Phone: Start: 01-27-2024 End: 01-27-2024 Patient encounter procedure [facility] Nephrology Elisa Work Phone: Start: 01-23-2024 Non-patient / Non-visit [facility] Work Phone: Start: 01-20-2024 Non-patient / Non-visit [facility] Work Phone: Start: 01-13-2024 End: 01-13-2024 ambulatory [place] Work Phone: Start: 01-13-2024 End: 01-13-2024 Patient encounter procedure [facility] Nephrology Work Phone: Start: 01-05-2024 Non-patient / Non-visit [facility] Work Phone: Start: 12-31-2023 End: 12-31-2023 ambulatory JOBST [facility] Start: 12-30-2023 End: 12-30-2023 ambulatory [place] Work Phone: Start: 12-30-2023 End: 12-30-2023 Patient encounter procedure [facility] Nephrology Work Phone: Start: 12-11-2023 End: 12-11-2023 ambulatory LUCI Harris MARY CARMEN Not Available Start: 12-11-2023 End: 12-11-2023 ambulatory [place] Work Phone: Start: 12-11-2023 End: 12-11-2023 Patient encounter procedure [facility] [place] Work Phone: Start: 12-08-2023 End: 12-08-2023 ambulatory [place] Work Phone: Start: 12-08-2023 End: 12-08-2023 Patient encounter procedure [facility] Work Phone: Start: 12-03-2023 End: 12-03-2023 ambulatory JOBST SERVICE [facility] Start: 11-27-2023 Non-patient / Non-visit [facility] Work Phone: Start: 11-18-2023 End: 11-18-2023 ambulatory SPANISHER-C Anika Deepa Elaine Work Phone: [place] Work Phone: Start: 11-18-2023 End: 11-18-2023 Patient encounter procedure SPANISHER-C Anika Henry Work Phone: [facility] Nephrology Work Phone: Start: 11-13-2023 Non-patient / Non-visit SPANISHER-C P mellissa Elaine Work Phone: [facility] Work Phone: Start: 11-12-2023 End: 11-12-2023 ambulatory JOBST SERVICE [facility] Start: 11-05-2023 End: 11-05-2023 ambulatory SPANISHER-C Naika Deepa Elaine Work Phone: [place] Work Phone: Start: 11-05-2023 End: 11-05-2023 Patient encounter procedure SPANISHER-C Anika Elaine Work Phone: [facility] Nephrology Work Phone: Start: 10-30-2023 Non-patient / Non-visit SPANISHER-C P mellissa Elaine Work Phone: [facility] Work Phone: Start: 10-27-2023 End: 10-27-2023 ambulatory ANITA Manoj MCCOY [facility] Start: 10-15-2023 End: 10-15-2023 ambulatory SPANISHER-C Anika Deepa Elaine Work Phone: [facility] Work Phone: Start: 10-15-2023 End: 10-15-2023 Patient encounter procedure SPANISHER-C Anika Elaine Work Phone: [facility] Nephrology Work Phone: Start: 10-07-2023 Non-patient / Non-visit SPANISHER-C P mellissa Elaine Work Phone: [facility] Work Phone: Start: 09-23-2023 End: 09-23-2023 ambulatory SPANISHER-C Anika Deepa Elaine Work Phone: [facility] Work Phone: Start: 09-23-2023 End: 09-23-2023 Patient encounter procedure SPANISHER-C Anika Elaine Work Phone: [facility] Nephrology Work Phone: Start: 09-16-2023 Non-patient / Non-visit SPANISHER-C P mellissa Elaine Work Phone: [facility] Work Phone: Start: 09-09-2023 End: 09-09-2023 ambulatory SPANISHER-C Anika Deepa Elaine Work Phone: [place] Work Phone: Start: 09-09-2023 End: 09-09-2023 Patient encounter procedure SPANISHER-C Anika Henry Work Phone: [facility] Work Phone: Start: 09-01-2023 End: 09-01-2023 Admission to same day surgery center SPANISHER-C Anika Henry Work Phone: [facility] [place] Work Phone: Start: 09-01-2023 End: 09-01-2023 ambulatory SPANISHER-C Anika Henry Work Phone: [facility] Work Phone: Start: 08-20-2023 End: 08-20-2023 ambulatory [place] Work Phone: Start: 08-20-2023 End: 08-20-2023 Patient encounter procedure [facility] Work Phone: Start: 08-13-2023 End: 08-13-2023 ambulatory [place] Work Phone: Start: 08-13-2023 End: 08-13-2023 Patient encounter procedure [facility] Nephrology Work Phone: Start: 08-05-2023 Non-patient / Non-visit [facility] Work Phone: Start: 08-01-2023 Non-patient / Non-visit [facility] Work Phone: Start: 06-09-2023 End: 06-09-2023 ambulatory Tondra Susannaus Other [facility] [employer] Other Start: 06-09-2023 Telephone encounter Chandrakantkimberly Mullins [facility] Start: 06-03-2023 End: 06-03-2023 ambulatory Rin Ramirez Other [facility] [employer] Other Start: 06-03-2023 Telephone encounter Aziz Bakhous [facility] Start: 05-27-2023 End: 05-27-2023 ambulatory Tondra Mapus Other [employer] Other Start: 05-27-2023 Telephone encounter Tondra Mapus [facility] Start: 04-23-2023 End: 04-23-2023 ambulatory Aziz Bakhous Other [employer] Other Start: 04-23-2023 Telephone encounter Aziz Bakhous [facility] Start: 04-22-2023 End: 04-22-2023 ambulatory Aziz Bakhous Other [employer] Other Start: 04-22-2023 Office outpatient vi sit 25 minutes Aziz Bakhous [facility] Start: 04-22-2023 End: 04-22-2023 Patient encounter procedure [facility] Work Phone: Start: 04-21-2023 End: 04-21-2023 ambulatory Aziz Bakhous Other [employer] Other Start: 04-21-2023 Telephone encounter Aziz Bakhous [facility] Start: 02-19-2023 (DM) Diabetes Tondra Susannaus [facility] Start: 02-19-2023 End: 02-19-2023 ambulatory Tondra Mapus Other [employer] Other Start: 02-12-2023 End: 02-12-2023 ambulatory Tondra Mapus Other [employer] Other Start: 02-12-2023 Nursing evaluation o f patient and report Tondra Mapus [facility] Start: 01-24-2023 End: 01-24-2023 ambulatory Tondra Mapus Other [employer] Other Start: 01-24-2023 Telephone encounter Tondra Mapus [facility] Start: 10-30-2022 End: 10-30-2022 ambulatory Tondra Mapus Other [employer] Other Start: 10-30-2022 Telephone encounter Tondra Mapus [facility] Start: 10-22-2022 End: 10-22-2022 ambulatory Aziz Bakhous Other [employer] Other Start: 10-22-2022 Office outpatient vi sit 25 minutes Aziz Bakhous [facility] Start: 10-16-2022 ambulatory ANIKA ELAINE Facility: [facility] Start: 08-20-2022 End: 08-20-2022 ambulatory Tondra Mapus Other [employer] Other Start: 08-20-2022 Telephone encounter Tondra Mapus [facility] Start: 08-19-2022 (DM) Diabetes Tondra Mapus [facility] Start: 08-19-2022 End: 08-19-2022 ambulatory Tondra Mapus Other [employer] Other Start: 08-02-2022 End: 08-02-2022 ambulatory Tondra Mapus Other [employer] Other Start: 08-02-2022 Telephone encounter Tondra Mapus [facility] Start: 05-30-2022 End: 05-30-2022 ambulatory Tondra Mapus Other [employer] Other Start: 05-30-2022 Telephone encounter Tondra Mapus [facility] Start: 05-01-2022 End: 05-01-2022 ambulatory Tondra Mapus Other [employer] Other Start: 05-01-2022 Telephone encounter Tondra Mapus [facility] Start: 04-01-2022 End: 04-01-2022 ambulatory Tondra Mapus Other [employer] Other Start: 04-01-2022 Telephone encounter Tondra Mapus [facility] Start: 02-27-2022 (DM) Diabetes Tondra Mapus [facility] Start: 02-27-2022 End: 02-27-2022 ambulatory Tondra Mapus Other [employer] Other Start: 01-28-2022 End: 01-28-2022 ambulatory Becca Michael Other [employer] Other Start: 01-28-2022 Telephone encounter Becca Michael [facility] Start: 01-09-2022 End: 01-09-2022 ambulatory Tondra Mapus Other [employer] Other Start: 01-09-2022 Telephone encounter Tondra Mapus [facility] Start: 12-31-2021 End: 12-31-2021 ambulatory Tondra Mapus Other [employer] Other Start: 12-31-2021 Telephone encounter Tondra Mapus [facility] Start: 12-17-2021 End: 12-17-2021 ambulatory Tondra Mapus Other [employer] Other Start: 12-17-2021 Telephone encounter Tondra Mapus [facility] Start: 11-25-2021 End: 11-25-2021 ambulatory Tondra Mapus Other [employer] Other Start: 11-25-2021 Telephone encounter Tondra Mapus [facility] Start: 11-02-2021 (FCCC INJ) FCCC Injection Marixa Fitt [facility] Start: 11-02-2021 End: 11-02-2021 ambulatory Marixa Fitt Other [employer] Other Start: 10-30-2021 End: 10-31-2021 ambulatory ANIKA HENRY Facility:[facility] Start: 10-26-2021 End: 10-26-2021 ambulatory Tondra Mapus Other [employer] Other Start: 10-26-2021 Telephone encounter Tondra Mapus [facility] Start: 10-23-2021 End: 10-23-2021 ambulatory Aziz Bakhous Other [employer] Other Start: 10-23-2021 Office outpatient vi sit 15 minutes Aziz Bakhous [facility] Start: 10-22-2021 End: 10-22-2021 ambulatory Tondra Mapus Other [employer] Other Start: 10-22-2021 Telephone encounter Tondra Mapus [facility] Start: 09-10-2021 End: 09-10-2021 ambulatory Tondra Mapus Other [employer] Other Start: 09-10-2021 Telephone encounter Tondra Mapus [facility] Start: 05-23-2021 (DM) Diabetes Tondra Mapus [facility] Start: 05-23-2021 End: 05-23-2021 ambulatory Tondra Mapus Other [employer] Other Procedures Date Procedure Procedure Detail Performing Clinician Start: 11-07-2024 Urine culture Anika montes SPANISHER-C Work Phone: Start: 10-27-2024 Prothrombin time [facility] Work Phone: Start: 09-28-2024 Prothrombin time [facility] Work Phone: Start: 09-10-2024 Prothrombin time [facility] Work Phone: Start: 09-01-2024 CT of abdomen and pe lvis without contrast Anika Henry SPANISHER-C Work Phone: Start: 08-24-2024 Prothrombin time [facility] Work Phone: Start: 08-05-2024 Prothrombin time [facility] Work Phone: Start: 08-05-2024 Ecg routine ecg w/le ast 12 lds w/i&r Kaity Guevara MD Work Phone: Start: 08-05-2024 Follow-up visit Follow-up KAITY GUEVARA Start: 07-14-2024 Prothrombin time [facility] Work Phone: Start: 06-16-2024 Prothrombin time [employer] Work Phone: Start: 05-17-2024 Prothrombin time [employer] Work Phone: Start: 09-01-2023 Needle biopsy SPANISHER-Thuy Tapia Work Phone: Start: 05-09-2023 Adult depression scr eening assessment Tr Jimenez [employer] Work Phone: Start: 02-14-2014 Colonoscopy Tr calvo [employer] Work Phone: Plan of Treatment Date Care Activity Detail Author Start: 08-05-2025 Tobacco Screening [facility] Start: 05-14-2025 Tobacco Screening Tobacco Screening [facility] Start: 03-07-2025 End: 03-07-2025 Patient encounter procedure 03/07/2025 2:15 PM EDT Procedure Visit [facility] [address] [place] [phone] Luci Gant DPM [address] [place] [address] [facility] Start: 01-17-2025 Influenza vaccination Influenza Vacc ine [facility] Start: 11-16-2024 [facility] Start: 11-16-2024 Administration of prophylactic treatment [facility] Start: 11-16-2024 End: 11-16-2024 Follow-up encounter 11/16/2024 9:45 AM EDT Follow Up Anticoagulation [facility] [address] [place] [address] [facility] Start: 11-15-2024 End: 11-15-2024 Patient encounter procedure 11/15/2024 2:15 PM EDT Office Visit [facility] [address] [place] [phone] Anita Mccoy MD [address] [facility] [place] [address] [facility] Start: 11-15-2024 Referral to rehabilitation physician [facility] Start: 11-15-2024 [facility] Start: 11-14-2024 [facility] Start: 11-13-2024 Referral to alpaca farmer [facility] Start: 11-12-2024 [facility] Start: 11-11-2024 Referral to infectio us diseases physician [facility] Start: 11-09-2024 Hospital admission [facility] Start: 11-02-2024 End: 11-02-2024 Patient encounter procedure 11/02/2024 9:15 AM EDT [facility] [address] [place] [address] Luci Gant DPM [address] [place], [place] [id number] Arrived [facility] Comment on above: Arrived Start: 10-26-2024 Tobacco Screening Tobacco Screening [facility] Start: 10-19-2024 End: 10-19-2024 Follow-up encounter 10/19/2024 1:45 PM EDT Follow Up Anticoagulation [facility] [address] [place] [address] [facility] Start: 10-01-2024 COVID-19 Vaccine () COVID-19 Vaccine () [facility] Start: 09-28-2024 End: 09-28-2024 Follow-up encounter 09/28/2024 2:00 PM EDT Follow Up Anticoagulation [facility] [address] [place] [address] [facility] Start: 09-13-2024 Patient referral [facility] Work Phone: Start: 09-10-2024 End: 09-10-2024 Follow-up encounter 09/10/2024 1:00 PM EDT Follow Up Anticoagulation [facility] [address] [place] [address] [facility] Start: 08-24-2024 End: 08-24-2024 Follow-up encounter 08/24/2024 3:00 PM EDT Follow Up Anticoagulation [facility] [address] [place] [address] [facility] Start: 08-05-2024 End: 08-05-2024 Patient encounter procedure [facility] Comment on above: Arrived Start: 08-05-2024 End: 08-05-2024 Follow-up encounter 08/05/2024 12:45 PM EDT Follow Up Anticoagulation [facility] [address] [place] [address] [facility] Start: 07-14-2024 End: 07-14-2024 Follow-up encounter 07/14/2024 1:15 PM EST Follow Up Anticoagulation [facility] [address] [place] [address] [facility] Start: 06-30-2024 End: 06-30-2024 Patient encounter procedure 06/30/2024 1:30 PM EST [facility] [address] [place] [phone] Luci Gant DPM [address] [place], [place] [phone] Arrived [facility] Comment on above: Arrived Start: 06-16-2024 End: 06-16-2024 Follow-up encounter 06/16/2024 1:00 PM EST Follow Up Anticoagulation [facility] [address] [place] [address] [facility] Start: 05-20-2024 End: 05-20-2025 CT Chest WO contrast CT chest without contrast Imaging Routine SOB (shortness of breath) Abnormal CXR Expected: 05/20/2024, Expires: 05/20/2025 [place] Work Phone: Comment on above: Expected: 05/20/2024 , Expires: 05/20/2025 Start: 05-17-2024 End: 05-17-2024 Follow-up encounter 05/17/2024 2:15 PM EST Follow Up Anticoagulation [facility] [address] [place] [address] [facility] Start: 05-10-2024 End: 05-10-2025 XR Chest PA and Lateral X-ray chest 2 views Imaging Routine PAF (paroxysmal atrial fibrillation) ([facility] current use of amiodarone Expected: 05/10/2024, Expires: 05/10/2025 [employer] Work Phone: Comment on above: Expected: 05/10/2024 , Expires: 05/10/2025 Start: 05-09-2024 Depression Screening Depression Scre ening [facility] Start: 01-18-2024 Influenza vaccination Influenza Vacc ine (#1) [facility] Start: 09-01-2023 [facility] Start: 09-01-2023 CT guided biopsy [facility] Start: 09-01-[address] guided biopsy [facility] Start: 02-14-2017 Screening for malign ant [...] Platelet poo r plasma by Coagulation assay [facility] CT Abdomen and Pelvi s WO contrast [facility] CT guided biopsy [facility] Patient Education [facility] Work Phone: Patient referral [facility] Work Phone: POCT EKG POCT EKG ECG Rou chacorta PAF (paroxysmal atrial fibrillation) ([facility]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 08/05/2024 1:14 PM EDT [employer] Work Phone: Renal function 2000 panel - Serum or Plasma [facility] Renal function 2000 panel - Serum or Plasma [facility] Renal function 2000 panel - Serum or Plasma [facility] Renal function 2000 panel - Serum or Plasma [facility] Renal function 2000 panel - Serum or Plasma [facility] Renal function 2000 panel - Serum or Plasma [facility] Renal function 2000 panel - Serum or Plasma [facility] Renal function 2000 panel - Serum or Plasma [facility] Renal function 2000 panel - Serum or Plasma [facility] Renal function 2000 panel - Serum or Plasma [facility] Renal function 2000 panel - Serum or Plasma [facility] Renal function 1999 panel - Serum or Plasma [facility] Renal function 1999 panel - Serum or Plasma [facility] Renal function 2000 panel - Serum or Plasma [facility] Immunizations Immunization Date Immunization Notes Care Provider [facility] 04-03-2024 influenza virus vacc ine, unspecified formulation Luci Gant DPM Work Phone: [facility] 02-19-2023 ABRYSVO - Respirator y syncytial virus (RSV), vaccine, bivalent, protein subunit RSV prefusion F, diluent reconstituted, 0.5 mL, PF Luci Gant DPM Work Phone: [facility] 02-19-2023 Influenza, Seasonal, Quadrivalent, Adjuvanted Luci Gant DPM Work Phone: [facility] 02-19-2023 SARS-COV-2 (COVID-19 ) vaccine, mRNA, spike protein, LNP, PF, anthony-sucrose, 30 mcg/0.3 mL Luci Gant DPM Work Phone: [facility] 02-19-2023 influenza virus vacc ine, unspecified formulation Luci Gant DPM Work Phone: [facility] 10-24-2022 influenza virus vacc ine, unspecified formulation Luci Rusher DPM Work Phone: [facility] 05-12-2021 influenza virus vacc ine, unspecified formulation Luci Rusher DPM Work Phone: [facility] 03-12-2021 Influenza, High-dose Seasonal, Quadrivalent, Preservative Free Luci Rusher DPM Work Phone: [facility] 08-04-2020 COVID-19 Vaccine Cricket [employer] - Documentation Purposes Only Tondra Mapus Other [facility] 02-09-2020 Influenza, High-dose Seasonal, Quadrivalent, Preservative Free Luci Rusher DPM Work Phone: [facility] 02-01-2020 influenza virus vacc ine, unspecified formulation Luci Rusher DPM Work Phone: [facility] 01-21-2018 influenza, high dose seasonal, preservative-free Luci Rusher DPM Work Phone: [facility] 06-19-2017 pneumococcal conjuga te vaccine, 13 valent Luci Rusher DPM Work Phone: [facility] 03-19-2017 influenza virus vacc ine, unspecified formulation Luci Rusher DPM Work Phone: [facility] 03-19-2016 seasonal influenza, intradermal, preservative free Luci Rusher DPM Work Phone: [facility] 02-06-2016 influenza, seasonal, injectable, preservative free Luci Rusher DPM Work Phone: [facility] 03-31-2015 pneumococcal conjuga te vaccine, 13 valent Luci Rusher DPM Work Phone: [facility] 03-28-2015 influenza, seasonal, injectable Tondra Mapus Other [facility] 03-19-2015 pneumococcal polysaccharide vaccine, 23 valent Luci Rusher DPM Work Phone: [facility] 02-14-2015 influenza, seasonal, injectable Luci Rusher DPM Work Phone: [facility] 03-31-2014 influenza, seasonal, injectable Luci Stalin DPM Work Phone: [facility] 03-04-2012 influenza virus vacc ine, whole virus Luci Stalin DPM Work Phone: [facility] 03-04-2011 influenza virus vacc ine, whole virus Luci Stalin DPM Work Phone: [facility] Payers Date Payer Category Payer Self-pay [id number] 2024 Unknown 2021 Medicare (Managed Care) [facility] [id number] 2015 Medicare HMO [employer] [id number] 1959 Medicare [id number] 2.16.840.1.835167.19 1940 Unknown [id number] .16.840.1.370605.3.579. 2.593 1940 Unknown [id number] 2.16.840.1.440584.3.579. 2.593 1940 Unknown [id number] 2.16.840.1.454022.3.579. 2.1286 1940 Unknown [id number] 2.16.840.1.218203.3.579. 2.1286 1940 Unknown [id number] 2.16.840.1.370218.3.579. 2.196 1940 Unknown [id number] 2.16.840.1.486414.3.579. 2.1286 1940 Unknown [id number] 2.16840.1.280517.3.579. 2.1286 1940 Unknown [id number] 2.16840.1.037853.3.579. 2.1286 1940 Unknown [id number] 2.16840.1.533496.3.579. 2.1286 1940 Unknown [id number] 2.16840.1.517253.3.579. 2.1286 1940 Unknown [id number] 2.16840.1.732723.3.579. 2.1286 1940 Unknown [id number] 2.16840.1.509667.3.579. 2.1286 1940 Unknown [id number] 2.16.840.1.056963.3.579. 2.1286 1940 Unknown [id number] 2.16840.1.346394.3.579. 2.1286 1940 Unknown [id number] 2.16.840.1.010629.3.579. 2.1286 1940 Unknown [id number] 2.16840.1.183676.3.579. 2.1286 1940 Unknown [id number] 2.16.840.1.603632.3.579. 2.128 1940 Unknown [id number] 2.16.840.1.221556.3.579. 2.128 1940 Unknown [id number] 2.16.840.1.663658.3.579. 2.128 1940 Unknown [id number] 2.16.840.1.792675.3.579. 2.128 1940 Unknown [id number] 2.16840.1.232010.3.579. 2.1285 1940 Unknown [id number] 2.16840.1.611227.3.579. 2.1285 1940 Unknown [id number] 2.16840.1.446515.3.579. 2.1285 1940 Unknown [id number] 2.16840.1.655774.3.579. 2.1285 1940 Unknown [id number] 2.840.1.039012.3.579. 2.1285 1940 Unknown [id number] 2.16840.1.812224.3.579. 2.1285 1940 Unknown [id number] 2.16840.1.969705.3.579. 2.1286 1940 Unknown [id number] 2.16840.1.249356.3.579. 2.1259 1940 Unknown [id number] 2.16840.1.303122.3.579. 2.9 1940 Unknown [id number] 2.16840.1.298074.3.579. 2.1259 1940 Unknown [id number] 2.16840.1.148891.3.579. 2.1259 Unknown Regular Auto/Liability [id number] Unknown [id number] 2.16.840.1.706982.3.579. 2.531 Unknown [id number] 2.16.840.1.461300.3.579. 2.531 Unknown [id number] 2..840.1.186709.3.579. 2.531 Social History Date Type Detail Facility Unknown if ever smoked [facility] Other Start: 06-29-2020 End: 12-11-2023 Sex Assigned At [facility] Other Start: 12-10-2020 End: 03-11-2022 Tobacco smoking status SDIS Never smoked tobacco (finding) [facility] Start: 1940 Sex Assigned At Female [facility] Start: 03-11-2022 End: 11-20-2022 Tobacco use and exposure Smokeless tobacco non-user [facility] Start: 12-11-2023 End: 11-02-2024 Alcoholic beverage intake Ex-drinker (finding) [facility] Start: 06-29-2020 End: 12-11-2023 History of Social function [facility] Start: 1940 Sex assigned at Not on file [facility] Start: 12-22-2014 End: 03-30-2024 Sex Female (finding) [facility] Start: 10-27-2023 End: 08-05-2024 Alcoholic beverage intake Current non-drinker of alcohol (finding) [facility] How often to you hav e a drink containing alcohol? Never [facility] How many standard drinks containing alcohol do you have on a typical day? Patient does not drink [facility] Start: 11-15-2024 Tobacco smoking status NHIS Tobacco smoking consumption unknown (finding) [facility] Start: 11-16-2024 SDOH Follow up SDOH Follow up [facility] Work Phone: Medical Equipment Procedure Code Equipment Code Equipment Origin al Text Equipment Identifier Dates Start: 03-12-2017 Goals Date Patient Goal Desired Activity /State Personal health goal Comment on above: Formatting of this n ote might be different from the original. Evaluation of progress towards goal: return home self care with hsb support Clinical Notes 06-04-2020 to 11-16-2024 Telephone Encounter - Alicia Wraren - 11/16/2024 1:09 PM EDTTelephone Encounter - Alicia Warren - 11/16/2024 1:09 PM EDTSbarby Gant DPM - 11/02/2024 9:15 AM EDT Note Date & Type Note Facility 11-16-2024 Miscellaneous Notes Patient was a No Show on 11/16. Materials And Corrosion Engineer called patient who advised that she was in [place] from 11/07-11/09 and now has been at [facility] since 11/09. Patient already on admit list. documented in this encounter [facility] 11-16-2024 Telephone encounter Note Patient was a No Show on 11/16. Materials And Corrosion Engineer called patient who advised that she was in [place] from 11/07-11/09 and now has been at [facility] since 11/09. Patient already on admit list. [facility] 11-02-2024 History of Presen t illness Narrative Images [...] Luci Gant DPM documented in this encounter [facility] 10-27-2024 History of Presen t illness Narrative 15 minute [id number] follow-up anticoagulation appointment. INR performed in office [...] RPH 10/27/24 1116 documented in this encounter [facility] 10-20-2024 Miscellaneous Notes The patient was a no show 10/19/24. Materials And Corrosion Engineer KENYA requesting patient call back to schedule another appointment. documented in this encounter [facility] 10-20-2024 Telephone encounter Note The patient was a no show 10/19/24. [employer] And Corrosion Engineer KENYA requesting patient call back to schedule another appointment. [facility] 09-28-2024 History of Presen t illness Narrative 15 minute [id number]-xe-[id number] follow-up anticoagulation appointment. INR performed in office [...] that persists or worsens. 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, 025 10:16am Hyperkalemia acute September 13, 2024 10:16am Hyperparathyroidism acute September 13, 2024 10:16am Hypertensive chronic kidney disease with stage 1 through stage 4 chronic ki acute September 13, 2024 10:16am Type 2 diabetes mellitus with diabetic chronic kidney disease acute September 13, 2024 10:16am Anemia of renal disease acute M 2024 1:04pm Back pain acute October 05, [...] 2024 1:04pm Anemia of renal disease acute 2024 9:53am Back pain acute October 26 9:53am Chronic kidney disease, stage IV (severe) acute October 26 9:53am Edema acute October 26 9:53am Fibrillary glomerulonephritis acute October 26 9:53am Hyperkalemia acute October 26 9:53am Hyperparathyroidism acute October 26, 2024 9:53am Hypertensive chronic kidney disease with stage 1 through stage 4 chronic ki acute October 26, 2024 9:53am Type 2 diabetes mellitus with diabetic chronic kidney disease acute October 26, 2024 9:53am Acute hypoxic respiratory failure acute November 09, 2024 11:24pm Bilateral pneumonia acute November 09, 2024 11:24pm Chronic kidney disease, stage IV (severe) acute November 09 11:24pm COPD (chronic obstructive pulmonary disease) acute November 09 11:24pm Diabetes acute November 09 11:24pm Fibrillary glomerulonephritis acute November 09 11:24pm HTN (hypertension) acute October 182024 11:24pm Hyperkalemia acute November 09 11:24pm Hyperlipidemia acute November 09, 2024 11:24pm Hypernatremia acute November 09, 2024 11:24pm Hypertensive chronic kidney disease with stage 1 through stage 4 chronic ki acute November 09, 2024 11:24pm Impaired mobility and activities of daily living acute November 09, 2024 11:24pm MRSA bacteremia acute October 11:24pm Stage 3b chronic kidney disease (CKD) acute November 09, 2024 11:24pm Type 2 diabetes mellitus with diabetic chronic kidney disease acute November 09, 2024 11:24pm [facility] Work Phone: 1(681) 405-433504-25-2025 History of Present illness Narrative* Alie Schumacher, [facility] - 09/10/2024 1:00 PM EDT 15 minute xnuu-lr-lkbs follow-up anticoagulation appointment. INR performed in office [...] these up and we will transition at nextOV Plan: Patient instructed to decrease to warfarin 1.25 mg daily. Check INR in 2.5 week(s). Patient verbalizes understanding of anticoagulant dosing instructions and information discussed. Dosing regimen, counseling, and follow-up appointment were provided to the patient. Patient reminded to call with questions or any medication changes. Patient instructed to seek medical attention if anymajor bleeding/bleeding that persists or worsens. Alie Schumacher RPH 09/10/24 1302 documented in this [facility]04-24-2025 Miscellaneous Notes* Telephone Encounter - Concha Michele RN - 09/09/2024 2:51 PM EDT Last OV 08/05/24 Last lipids 08/25/24.slm [facility] Tele[facility] encounter Note* Telephone Encounter - Concha Michele RN - 09/09/2024 2:51 PM EDT Last OV 08/05/24 Last lipids 08/25/24.slm [facility]04-23-2025 Miscellaneous Notes* Telephone Encounter - Jennifer Martinez RN - 09/08/2024 4:02 PM EDT LIZETH 08/05/24 Lipid Profile 08/25/24 [facility] Telephone encounter Note* Telephone Encounter - Jennifer Martinez RN - 09/08/2024 4:02 PM EDT LIZETH 08/05/24 Lipid Profile 08/25/24 [employer]04-16-2025 Radiology Diagnostic study [facility] [place] [address] [place] [address] CT Scan Report Signed Patient: Margie Martínez MR#: [id number] : 1940 Acct:[id number] Age/Sex: 84 / F ADM Date: 5 Loc: [facility] Room: Type: [facility] Attending Dr: Rin Ramirez MD Copies to: Rin Ramirez MD~ Ordering Provider: Rin Ramirez MD Date of Service: 09/01/24 CT/CT abdomen pelvis wo con: M54.9 - Dorsalgia, unspecified CT ABDOMEN AND PELVIS WITHOUT INTRAVENOUS CONTRAST: CLINICAL HISTORY: Back pain COMPARISON: None TECHNIQUE: Spiral images were obtained through the abdomen and pelvis without intravenous contrast.This CT exam was performed using one or [...] Urias Jr., D.O.09/01/2024 10:59 AM Dictation Location: [place] [address] Transcribed By: [facility] 09/01/24 1059 Dictated By: Kj Urias Jr, DO 09/01/24 1056 Signed By: 09/01/24 1059 [facility]04-08-2025 History of Present illness Narrative * Alie Schumacher RP - 08/24/2024 3:00 PM EDT 15 minute nnau-ll-jaky follow-up anticoagulation appointment. INR performed in office [...] reduction. Patient has increased APAP due to painfrom moving post-surgery. Appetite/PO intake has been down [...] Schumacher RPH 08/24/24 1504 [facility] Miscellaneous Notes* Telephone Encounter - Concha Michele RN - 08/23/2024 11:25 AM EDT Last OV 08/05/24 EKG 08/05/24 CXR 05/11/24 Pt having labs drawn tomorrow.slm [facility] Telephone encounter Note* Telephone Encounter - Concha Michele RN - 08/23/2024 11:25 AM EDT Last OV 08/05/24 EKG 08/05/24 CXR 05/11/24 Pt having labs drawn tomorrow.slm [facility]04-01-2025 Evaluation note* Diagnosis Onset Date Resolution Status Admit Date Anemia of renal disease acute A l [...] acute October 26 9:53am Chronic kidney disease, stag e IV (severe) acute October 26, 2024 9:53am Edema acute October 26 9:53am Fibrillary glomerulonephritis acute October 26, 2024 9:53am Hyperkalemia acute October 26, 025 9:53am Hyperparathyroidism acute October 26, 2024 9:53am Hypertensive chronic kidney disease with stage 1 through stage 4 chronic ki acute October 26, 2024 9:53am Type 2 diabetes mellitus wit h diabetic chronic kidney disease acute October 26, 2024 9:53am [place] Work Phone: 1(966) 930-536803-20-2025 History of Present illness Narrative* Kaity Guevara MD - 08/05/2024 1:15 PM EDT Margie [...] total) in the evening. Take with meals. 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 [place] [facility] & Environment Fear of Current [...] medications. IMPRESSIONS/PLAN 1. [place]oxysmal [place] [place] E[place] 2. [facility] current use of amiodarone - POCT EKG 3. 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 Paroxysmal atrial fibrillation on anticoagulation 2. [...] RASHAD MERCHANT Referring Physician: RASHAD Cabrera [address] [place] [address] documented [facility] this [facility] History of Present illness Narrative* Alie Schumacher, [facility] - 08/05/2024 12:45 PM EDT 15 minute gkox-eh-ooxt follow-up anticoagulation appointment. INR performed in office [...] that persists or worsens. Alie Schumacher [facility] 08/05/24 1252 documented in this encounterPark[facility]03-19-2025 Miscellaneous Notes* Telephone Encounter - Enedelia Livingston CMA - 08/04/2024 8:53 AM EDT Left message for patient to remind them to bring their most current medication list with them to their appointment. documented in this encounterPark[facility]03-19-2025 Telephone encounter Note* Telephone Encounter - Enedelia Livingston CMA - 08/04/2024 8:53 AM EDT Left message for patient to remind them to bring their most current medication list with them to their appointment. [facility]02[facility] History of Present illness Narrative* Alie Schumacher RP - 07/14/2024 1:15 PM EST 15 minute zmzx-ol-coyz follow-up anticoagulation appointment. INR performed in office [...] that persists or worsens. Alie Schumacher [facility] 07/14/24 1320 documented in this encounterPark[facility]02-12-2025 History of Present illness Narrative* Luci Gant, M - 06/30/2024 1:30 PM EST Images from [...] understanding. Luci Gant DPM documented in this [facility]02-12-2025 Instructions* Patient Instructions* Luci Gant DPM - 06/30/2024 1:30 PM EST As noted documented in this [facility]01-30-2025 Evaluation note* Diagnosis Onset Date [...] kidney disease acute September 13, 2024 10:16am [place] Work Phone: 1(673) 919-941301-29-2025 NoteXR CHEST 2 VWS Procedure: Chest x-ray performed Number of views:2 History:Atrial fibrillation Comparison:05/14/2024 Findings: The heart and lungs show no acute findings, and the mediastinum and yusef are grossly negative . The pulmonary arteries remain prominent. The cardiac silhouette remains enlarged. Impression: 1. No acute change. Finalized by Jacek Gordillo MD on 06/16/2024 3:22 [facility] 06-16-2024 History of Present illness Narrative* Alie Schumacher, [facility] - 06/16/2024 1:00 PM EST 15 minute cdwx-bd-bdjp follow-up anticoagulation appointment. INR performed in office [...] Schumacher RPH 06/16/24 1310 documented in this encounterPark[facility]01-27-2025 Evaluation note* Diagnosis Onset Date Resolution Status Admit Date BMI 40.0-44.9, adult acute katie2024 1:49pm Diabetes acute June 14, 2024 1:49pm [...] stage 4 chronic ki acute July 13 9:50am Type 2 diabetes mellitus wit h [...] 1:45pm Back pain acute August 17 1:57pm [facility] Work Phone: 1(988) 384-874901-16-2025 Evaluation note* Diagnosis Onset Date Resolution Status [...] stage 4 chronic ki acute July 13, 025 9:50am Type 2 diabetes mellitus wit [...] 1:45pm Back pain acute August 17 1:57pm [place] Work Phone: 1(600) 896-676201-02-2025 History of Present illness Narrative* Alicia Galvan RN - 05/20/2024 9:16 AM EST CXR discussed with patient, per KW pt to have CT chest. Pt agreeable, all questions answered documented in this encounterPark[facility] Health12-30-2024 History of Present illness Narrative* Alie Schumacher, [facility] - 05/17/2024 2:15 PM EST 15 minute hnrr-lr-ajeg follow-up anticoagulation appointment. INR performed in office [...] Schumacher RPH 05/17/24 1412 documented in this [facility]12-27-2024 NoteXR CHEST 2 VWS History: Shortness of breath Procedure: 2 view PA and Lateral chest radiograph. Comparison: 05/09/2023 Findings: Prominent central pulmonary arteries. Mild interstitial edema. Stable cardiac silhouette.No no pneumothorax. No focal consolidation or pleural effusions. IMPRESSION: Mild interstitial edema. Finalized by Luci Power MD on 05/14/2024 12:18 [facility] 05-07-2024 Miscellaneous Notes* Telephone Encounter - Briana Reeves RN - 05/07/2024 5:41 AM EST OV 07/30/23 Updated labs needed, letter was already mailed 04/20/24. 07/30/23 EKG 05/09/23 CXR 04/07/24 PFT EYE exam ? documented in this [facility]12-20-2024 Telephone encounter Note* Telephone Encounter - Briana Reeves RN - 05/07/2024 5:41 AM EST OV 07/30/23 Updated labs needed, letter was already mailed 04/20/24. 07/30/23 EKG 05/09/23 CXR 04/07/24 PFT EYE exam ? [id number] Miscellaneous Notes* Telephone Encounter - Briana Reeves RN - 05/05/2024 6:02 PM EST OV 07/30/23 Updated labs needed, letter was already mailed 04/20/24. 07/30/23 EKG 05/09/23 CXR 04/07/24 PFT EYE exam ? documented in this encounterPark[facility]12-18-2024 Telephone encounter Note* Telephone Encounter - Briana Reeves RN - 05/05/2024 6:02 PM EST OV 07/30/23 Updated labs needed, letter was already mailed 04/20/24. 07/30/23 EKG 05/09/23 CXR 04/07/24 PFT EYE exam ? [id number] Evaluation note* Diagnosis Onset Date Resolution Status [...] stage 4 chronic ki acute July 13, 025 9:50am Type 2 diabetes mellitus wit [...] kidney disease acute July 27, 2024 1:45pm [place] Work Phone: 1(509) 586-114212-03-2024 Evaluation note* Diagnosis Onset Date Resolution Status [...] di abetes mellitus acute June 03 11:32am [place] Work Phone: 1(552) 146-913412-03-2024 Evaluation note* Diagnosis Onset Date Resolution Status [...] 2024 1:49pm Hyperlipidemia acute June 142024 1:49pm [place] Work Phone: 1(114) 170-891012-03-2024 Evaluation note* Diagnosis Onset Date Resolution Status [...] di abetes mellitus acute June 17 1:50pm [place] Work Phone: 1([phone]) 389-286112-03-2024 Evaluation note* Diagnosis Onset Date Resolution Status Admit Date Anemia acute April 20, 2024 1:01pm Chronic kidney disease, stag e IV (severe) acute April 20 1:01pm Edema acute April 20, 2024 1:01pm 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, 2024 1:01pm Hyperkalemia acute April 1:01pm Hyperparathyroidism acute 2023 1:01pm Hypertensive chronic kidney disease with stage [...] diabetic chronic kidney disease acute 2024 9:50am [place] Work Phone: 1(124) 397-297810-29-2024 History of Present illness Narrative* Luci Gant, ANTONIA - 03/16/2024 1:30 PM EDT Images from the original note were not included. Subjective Patient ID: Margie Martínez is a 83 y.o. female who presents for Nail care (Margie Martínez is a 83 y.o. female who presents for DM Foot Care PCP: Anika SALAS 6/14/24, A1C: 5.4, BS:, 93 SS: 7.5-8).). HPI [...] understanding. Luci Gant DPM documented in this [facility]10-29-2024 Instructions* Patient Instructions* Luci Gant DPM - 03/16/2024 1:30 PM EDT As noted documented in this [facility]08-27-2024 Evaluation note* Diagnosis Onset Date Resolution Status [...] e IV (severe) acute March 23 1:58pm [place] Work Phone: 1([phone]) 958-445301-16-2024 Evaluation note* Encounter Date Diagnosis Assessment Notes Treatment Notes Treatment Clinical Notes May, Edema (ICD-10 - R60.9) [employer] Other 12-06-2023 Evaluation note* Encounter Date Diagnosis Assessment Notes Treatment Notes Treatment Clinical Notes Apr, Nephritis (ICD-10 - N05.9) [employer] Other 12-05-2023 Evaluation note* Encounter Date Diagnosis [...] check iron, folate and VB12 storage studies [employer] Other 12-04-2023 Evaluation note* Encounter Date Diagnosis Assessment Notes Treatment Notes Treatment Clinical Notes Apr, Edema (ICD-10 - R60.9) [employer] Other 10-04-2023 Evaluation note* Encounter Date Diagnosis Assessment Notes Treatment Notes Treatment Clinical Notes 04 Oct, 2023 Dietary counseling and surveillance (ICD-10 - Z71.3) [...] hypertension material was printed on arb Feb, [facility] current use of insulin (ICD-10 - Z79.4) Feb, Vitamin B 12 deficiency (ICD-10 - E53.8) 09/08 b12 [id number] at target Feb, Albuminuria (ICD-10 - R80.9) Protein, urine material was printed Reviewed importance of glucose/bp control to prevent further nephropathy. Keep f/u with nephrology Feb, BMI 40.0-44.9, adult (ICD-10 - Z68.41) [employer] Other 09-27-2023 Evaluation note* Encounter Date Diagnosis [...] a computer on the screen. Pt contacted [employer] for reader replacement. Pt also brought in new reader. New reader set up with pt. Instructed pt to send old reader back to [employer]. Pt states she will send old reader [...] spent on education by Rangel CANTU, RN [employer] Other 06-06-2023 Evaluation note* Encounter Date Diagnosis [...] On Bumex for volume management Avoid NSAIDs [employer] Other 04-03-2023 Evaluation note* Encounter Date Diagnosis Assessment Notes Treatment Notes Treatment Clinical Notes Aug, Dietary counseling and surveillance (ICD-10 - Z71.3) Maintaining a healthful weight material was printed see above Aug, Type 2 diabetes mellitus (ICD-10 - E11.9) Type 2 diabetes material was printed 1. Controlled, Type 2 diabetes with A1c 6.5%. 2. Blood glucose levels stable. According to [employer] 2 cgm download 08/06/2022-08/19/2022 Avg glucose 129. 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 Keep f/u with nephrology Aug, BMI 39.0-39.9,adult (ICD-10 - Z68.39) 11 pound weight loss from last visit, continue with weight loss efforts [employer] Other 10-12-2022 Evaluation note* Encounter Date Diagnosis Assessment Notes Treatment Notes Treatment Clinical Notes Feb, Dietary counseling and surveillance (ICD-10 - Z71.3) Maintaining a healthful weight material was printed see above Feb, Type 2 diabetes mellitus (ICD-10 - E11.9) Type 2 diabetes material was printed 1. Controlled, Type 2 diabetes with A1c of 6.1% 2. Blood glucose levels stable. According to [employer] 2 cgm download 02/14/2022-02/28/20 22 Avg glucose [...] hypertension material was printed on arb Feb, [facility] current use of insulin (ICD-10 - Z79.4) [...] E11.649) Hypoglycemia material was printed see above [employer] Other 09-12-2022 Evaluation note* Encounter Date Diagnosis Assessment Notes Treatment Notes Treatment Clinical Notes Jan, Edema (ICD-10 - R60.9) [employer] Other 08-24-2022 Evaluation note* Encounter Date Diagnosis Assessment Notes Treatment Notes Treatment Clinical Notes Dec, Type 2 diabetes mellitus with diabetic chronic kidney disease (ICD-10 - E11.22) Dec, Type 2 diabetes mellitus (ICD-10 - E11.9) [employer] Other 06-17-2022 Evaluation note* Encounter Date Diagnosis Assessment Notes Treatment Notes Treatment Clinical Notes Oct, Vitamin B 12 deficiency (ICD-10 - E53.8) [employer] Other 06-07-2022 Evaluation note* Encounter Date Diagnosis [...] arthritis and sleep apnea has been addressed. [employer] Other 06-06-2022 Evaluation note* Encounter Date Diagnosis Assessment Notes Treatment Notes Treatment Clinical Notes Oct, Type 2 diabetes mellitus with diabetic chronic kidney disease (ICD-10 - E11.22) [employer] Other 04-25-2022 Evaluation note* Encounter Date Diagnosis Assessment Notes Treatment Notes Treatment Clinical Notes Aug, Type 2 diabetes mellitus with diabetic chronic kidney disease (ICD-10 - E11.22) [employer] Other 01-05-2022 Evaluation note* Encounter Date Diagnosis Assessment Notes Treatment Notes Treatment Clinical Notes May, Dietary counseling and surveillance (ICD-10 - Z71.3) Maintaining a healthful weight material was printed see above May, Type 2 diabetes mellitus (ICD-10 - E11.9) Type 2 diabetes material was printed 1. Controlled, Type 2 diabetes with A1c of 5.7% 2. Blood glucose levels stable. According to [employer] 2 cgm download 05/10/2021-05/23/2021 Avg glucose 128. [...] I10) About hypertension material was printed May, [facility] current use of insulin (ICD-10 - Z79.4) [...] E11.649) Hypoglycemia material was printed see above [employer] Other 01-17-2021 History general Narrative - Reported* [...] History SEE ABOVE Hospitalization History COPD 07/08 [employer] Other Evaluation noteNo InformationNort [employer] Other Evaluhyikb noteNo assessment information available [facility] Work Phone: Evaluation note* Diagnosis Onset Date Resolution Status Anemia acute BMI 50.0-59.9, adult acute Edema acute Hyperlipidemia acute [id number] acute Stage 3b chronic kidney disease (CKD) acute Type 2 diabetes mellitus wit h diabetic chronic kidney disease acute [place] Work Phone: Evaluation note* Diagnosis Onset Date Resolution Status Anemia acute BMI 50.0-59.9, adult acute Edema acute Hyperlipidemia acute [id number] acute Stage 3b chronic kidney disease (CKD) acute Type 2 diabetes mellitus wit h diabetic chronic kidney disease acute Diabetes acute Dietary counseling and surveillance acute HTN (hypertension) acute Hyperlipidemia acute Vitamin B 12 deficiency acut e [place] Work Phone: Evaluation note* Diagnosis Onset Date Resolution Status Anemia acute BMI 50.0-59.9, adult acute Edema acute Hyperlipidemia acute [id number] acute Stage 3b chronic kidney disease (CKD) [...] 50.0-59.9, adult acute Edema acute Hyperlipidemia acute [id number] acute Stage 3b chronic kidney disease (CKD) acute Type 2 diabetes mellitus wit h diabetic chronic kidney disease acute BMI 40.0-44.9, adult acute Diabetes acute Dietary counseling and surveillance acute HTN (hypertension) acute Hyperlipidemia acute Vitamin B 12 deficiency acut e Anemia acute Edema acute Fibrillary glomerulonephritis acute Hyperparathyroidism acute [id number] acute Stage 3b chronic kidney disease (CKD) acute Type 2 diabetes mellitus wit h diabetic chronic kidney disease acute [place] Work Phone: Evaluation note* Diagnosis Onset Date Resolution Status Anemia acute BMI 50.0-59.9, adult acute Edema acute Hyperlipidemia acute [id number] acute Stage 3b chronic kidney disease (CKD) acute Type 2 diabetes mellitus wit h diabetic chronic kidney disease acute BMI 40.0-44.9, adult acute Diabetes acute Dietary counseling and surveillance acute HTN (hypertension) acute Hyperlipidemia acute Vitamin B 12 deficiency acut e Anemia acute Edema acute Fibrillary glomerulonephritis acute Hyperparathyroidism acute [id number] acute Stage 3b chronic kidney disease (CKD) acute Type 2 diabetes mellitus wit h diabetic chronic kidney disease acute Anemia acute Edema acute Fibrillary glomerulonephritis acute Hyperparathyroidism acute [id number] acute Stage 3b chronic kidney disease (CKD) acute Type 2 diabetes mellitus wit h diabetic chronic kidney disease acute [place] Work Phone: Evaluation note* Diagnosis Onset Date Resolution Status Anemia acute BMI 50.0-59.9, adult acute Edema acute Hyperlipidemia acute [id number] acute Stage 3b chronic kidney disease (CKD) acute Type 2 diabetes mellitus wit h diabetic chronic kidney disease acute BMI 40.0-44.9, adult acute Diabetes acute Dietary counseling and surveillance acute HTN (hypertension) acute Hyperlipidemia acute Vitamin B 12 deficiency acut e Anemia acute Edema acute Fibrillary glomerulonephritis acute Hyperparathyroidism acute [id number] acute Stage 3b chronic kidney disease (CKD) acute Type 2 diabetes mellitus wit h diabetic chronic kidney disease acute Anemia acute Edema acute Fibrillary glomerulonephritis acute Hyperparathyroidism acute [id number] acute Stage 3b chronic kidney disease (CKD) acute Type 2 diabetes mellitus wit h diabetic chronic kidney disease acute Anemia acute Edema acute Fibrillary glomerulonephritis acute Hyperparathyroidism acute [id number] acute Stage 3b chronic kidney disease (CKD) acute Type 2 diabetes mellitus wit h diabetic chronic kidney disease acute [place] Work Phone: Evaluation note* Diagnosis Onset Date Resolution Status Anemia acute BMI 50.0-59.9, adult acute Edema acute Hyperlipidemia acute [id number] acute Stage 3b chronic kidney disease (CKD) acute Type 2 diabetes mellitus wit h diabetic chronic kidney disease acute BMI 40.0-44.9, adult acute Diabetes acute Dietary counseling and surveillance acute HTN (hypertension) acute Hyperlipidemia acute Vitamin B 12 deficiency acut e Anemia acute Edema acute Fibrillary glomerulonephritis acute Hyperparathyroidism acute [id number] acute Stage 3b chronic kidney disease (CKD) acute Type 2 diabetes mellitus wit h diabetic chronic kidney disease acute Anemia acute Edema acute Fibrillary glomerulonephritis acute Hyperparathyroidism acute [id number] acute Stage 3b chronic kidney disease (CKD) acute Type 2 diabetes mellitus wit h diabetic chronic kidney disease acute Anemia acute Edema acute Fibrillary glomerulonephritis acute Hyperparathyroidism acute [id number] acute Stage 3b chronic kidney disease (CKD) acute Type 2 diabetes mellitus wit h diabetic chronic kidney disease acute Anemia acute Edema acute Fibrillary glomerulonephritis acute Hyperkalemia acute Hyperparathyroidism acute [id number] acute Stage 3b chronic kidney disease (CKD) acute Type 2 diabetes mellitus wit h diabetic chronic kidney disease acute [place] Work Phone: Evaluation note* Diagnosis Onset Date Resolution Status BMI 40.0-44.9, adult acute Diabetes acute Dietary counseling and surveillance acute HTN (hypertension) acute Hyperlipidemia acute Vitamin B 12 deficiency acut e Anemia acute Edema acute Fibrillary glomerulonephritis acute Hyperparathyroidism acute [id number] acute Stage 3b chronic kidney disease (CKD) acute Type 2 diabetes mellitus wit h diabetic chronic kidney disease acute Anemia acute Edema acute Fibrillary glomerulonephritis acute Hyperparathyroidism acute [id number] acute Stage 3b chronic kidney disease (CKD) acute Type 2 diabetes mellitus wit h diabetic chronic kidney disease acute Anemia acute Edema acute Fibrillary glomerulonephritis acute Hyperparathyroidism acute [id number] acute Stage 3b chronic kidney disease (CKD) acute Type 2 diabetes mellitus wit h diabetic chronic kidney disease acute Anemia acute Edema acute Fibrillary glomerulonephritis acute Hyperkalemia acute Hyperparathyroidism acute [id number] acute Stage 3b chronic kidney disease (CKD) acute Type 2 diabetes mellitus wit h diabetic chronic kidney disease acute Anemia acute Edema acute Fibrillary glomerulonephritis acute Hyperkalemia acute Hyperparathyroidism acute [id number] acute Stage 3b chronic kidney disease (CKD) acute Type 2 diabetes mellitus wit h diabetic chronic kidney disease acute [place] Work Phone: Evaluation note* Diagnosis Onset Date Resolution Status Anemia acute Edema acute Fibrillary glomerulonephritis acute Hyperparathyroidism acute [id number] acute Stage 3b chronic kidney disease (CKD) acute Type 2 diabetes mellitus wit h diabetic chronic kidney disease acute Anemia acute Edema acute Fibrillary glomerulonephritis acute Hyperparathyroidism acute [id number] acute Stage 3b chronic kidney disease (CKD) acute Type 2 diabetes mellitus wit h diabetic chronic kidney disease acute Anemia acute Edema acute Fibrillary glomerulonephritis acute Hyperparathyroidism acute [id number] acute Stage 3b chronic kidney disease (CKD) acute Type 2 diabetes mellitus wit h diabetic chronic kidney disease acute Anemia acute Edema acute Fibrillary glomerulonephritis acute Hyperkalemia acute Hyperparathyroidism acute [id number] acute Stage 3b chronic kidney disease (CKD) acute Type 2 diabetes mellitus wit h diabetic chronic kidney disease acute Anemia acute Edema acute Fibrillary glomerulonephritis acute Hyperkalemia acute Hyperparathyroidism acute [id number] acute Stage 3b chronic kidney disease (CKD) acute Type 2 diabetes mellitus wit h diabetic chronic kidney disease acute BMI 40.0-44.9, adult acute Diabetes acute Dietary counseling and surveillance acute HTN (hypertension) acute Hyperlipidemia acute Vitamin B 12 deficiency acut e [place] Work Phone: Evaluation note* Diagnosis Onset Date Resolution Status Anemia acute Edema acute Fibrillary glomerulonephritis acute Hyperparathyroidism acute [id number] acute Stage 3b chronic kidney disease (CKD) acute Type 2 diabetes mellitus wit h diabetic chronic kidney disease acute Anemia acute Edema acute Fibrillary glomerulonephritis acute Hyperparathyroidism acute [id number] acute Stage 3b chronic kidney disease (CKD) acute Type 2 diabetes mellitus wit h diabetic chronic kidney disease acute Anemia acute Edema acute Fibrillary glomerulonephritis acute Hyperkalemia acute Hyperparathyroidism acute [id number] acute Stage 3b chronic kidney disease (CKD) acute Type 2 diabetes mellitus wit h diabetic chronic kidney disease acute Anemia acute Edema acute Fibrillary glomerulonephritis acute Hyperkalemia acute Hyperparathyroidism acute [id number] acute Stage 3b chronic kidney disease (CKD) acute Type 2 diabetes mellitus wit h diabetic chronic kidney disease acute BMI 40.0-44.9, adult acute Diabetes acute Dietary counseling and surveillance acute HTN (hypertension) acute Hyperlipidemia acute Vitamin B 12 deficiency acut e Anemia acute Stage 3a chronic kidney disease (CKD) acute [place] Work Phone: Evaluation note* Diagnosis Onset Date Resolution Status Anemia acute Edema acute Fibrillary glomerulonephritis acute Hyperparathyroidism acute [id number] acute Stage 3b chronic kidney disease (CKD) acute Type 2 diabetes mellitus wit h diabetic chronic kidney disease acute Anemia acute Edema acute Fibrillary glomerulonephritis acute Hyperkalemia acute Hyperparathyroidism acute [id number] acute Stage 3b chronic kidney disease (CKD) acute Type 2 diabetes mellitus wit h diabetic chronic kidney disease acute Anemia acute Edema acute Fibrillary glomerulonephritis acute Hyperkalemia acute Hyperparathyroidism acute [id number] acute Stage 3b chronic kidney disease (CKD) acute Type 2 diabetes mellitus wit h diabetic chronic kidney disease acute BMI 40.0-44.9, adult acute Diabetes acute Dietary counseling and surveillance acute HTN (hypertension) acute Hyperlipidemia acute Vitamin B 12 deficiency acut e Anemia acute Stage 3a chronic kidney disease (CKD) acute [place] Work Phone: Evaluation note* Diagnosis Onset Date Resolution Status Anemia acute Edema acute Fibrillary glomerulonephritis acute Hyperparathyroidism acute [id number] acute Stage 3b chronic kidney disease (CKD) acute Type 2 diabetes mellitus wit h diabetic chronic kidney disease acute Anemia acute Edema acute Fibrillary glomerulonephritis acute Hyperkalemia acute Hyperparathyroidism acute [id number] acute Stage 3b chronic kidney disease (CKD) acute Type 2 diabetes mellitus wit h diabetic chronic kidney disease acute Anemia acute Edema acute Fibrillary glomerulonephritis acute Hyperkalemia acute Hyperparathyroidism acute [id number] acute Stage 3b chronic kidney disease (CKD) [...] Stage 3a chronic kidney disease (CKD) acute [place] Work Phone: Evaluation note* Diagnosis Onset Date Resolution Status Anemia acute Edema acute Fibrillary glomerulonephritis acute Hyperkalemia acute Hyperparathyroidism acute [id number] acute Stage 3b chronic kidney disease (CKD) acute Type 2 diabetes mellitus wit h diabetic chronic kidney disease acute Anemia acute Edema acute Fibrillary glomerulonephritis acute Hyperkalemia acute Hyperparathyroidism acute [id number] acute Stage 3b chronic kidney disease (CKD) [...] Fibrillary glomerulonephritis acute Hyperkalemia acute Hyperparathyroidism acute [id number] acute Stage 3b chronic kidney disease (CKD) acute Type 2 diabetes mellitus wit h diabetic chronic kidney disease acute [place] Work Phone: Evaluation note* Diagnosis Onset Date Resolution Status Anemia acute Edema acute Fibrillary glomerulonephritis acute Hyperkalemia acute Hyperparathyroidism acute [id number] acute Stage 3b chronic kidney disease (CKD) [...] Fibrillary glomerulonephritis acute Hyperkalemia acute Hyperparathyroidism acute [id number] acute Stage 3b chronic kidney disease (CKD) acute Type 2 diabetes mellitus wit h diabetic chronic kidney disease [facility] Work Phone: Evaluation note* Diagnosis [...] Fibrillary glomerulonephritis acute Hyperkalemia acute Hyperparathyroidism acute [id number] acute Stage 3b chronic kidney disease (CKD) acute Type 2 diabetes mellitus wit h diabetic chronic kidney disease acute Anemia acute Anemia of renal disease acut e 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 acute [id number] acute [place] Work Phone: Evaluation note* Diagnosis Dermatophytosis of nail- Primary Dystrophic nail Other specified disease of nail Pain around toenail, right foot Pain around toenail, left foot documented in this encounter [facility] HealthcareEvaluation note* Diagnosis Onset Date Resolution Status Anemia acute Anemia of renal disease acut e Stage 3a chronic kidney disease (CKD) acute Anemia of renal disease acut e Stage 3b chronic kidney disease (CKD) acute Anemia acute Edema acute Fibrillary glomerulonephritis acute Hyperkalemia acute Hyperparathyroidism acute [id number] acute Stage 3b chronic kidney disease (CKD) acute Type 2 diabetes mellitus wit h diabetic chronic kidney disease acute Anemia acute Anemia of renal disease acut e Stage 3b chronic kidney disease (CKD) acute Anemia acute Chronic kidney disease, stage IV (severe) acute Edema acute Fibrillary glomerulonephritis acute Hyperkalemia acute Hyperparathyroidism acute [id number] acute Type 2 diabetes mellitus wit h diabetic chronic kidney disease acute Anemia acute Chronic kidney disease, stage IV (severe) acute [place] Work Phone: Evaluation note* Diagnosis FCI current use of amiodarone- Primary PAF (paroxysmal atrial fibrillation) ([facility]) Atrial fibrillation documented in this encounter [facility]* Diagnosis Hyperlipidemia, unspecified hyperlipidemia type documented in this encounter [facility]* Diagnosis PAF (paroxysmal atrial fibrillation) ([facility])- Primary Atrial fibrillation documented in this encounter [facility]* Diagnosis SOB (shortness of breath)- Primary Shortness of breath Abnormal CXR Nonspecific (abnormal) findings on radiological and other examination of lung field documented in this encounter [facility]* Diagnosis PAF (paroxysmal atrial fibrillation) ([facility] Primary Atrial fibrillation documented in this encounter [facility]* Diagnosis Dermatophytosis of nail- Primary Dystrophic nail Other specified disease of nail Pain around toenail, right foot Pain around toenail, left foot [facility] (paroxysmal atrial fibrillation) ([facility] Primary Atrial fibrillation 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 ([facility]) documented in this encounter [facility]* Diagnosis PAF (paroxysmal atrial fibrillation) ([facility]) Atrial fibrillation documented in this encounter [facility]* Diagnosis PAF (paroxysmal atrial fibrillation) ([facility])- Primary Atrial fibrillation documented in this encounter [facility]* Diagnosis Hyperlipidemia, unspecified hyperlipidemia type documented in this encounter [facility]* Diagnosis PAF (paroxysmal atrial fibrillation) ([facility] Primary Atrial fibrillation documented in this encounter [facility]* Diagnosis Hyperlipidemia, unspecified hyperlipidemia type [facility]* AMB POC INR Time Frame: 2 Months, Location: Determined By Patient [place] Work Phone: Hospital Discharge instructionsAmbulatory Orders* Referral to Pain Management Time Frame: 09/13/24, Location: None Selected [place] Work Phone: InstructionsNot on filedocumented in this [...] Visit Anemia BMI 50.0-59.9, adult Edema Hyperlipidemia [id number] 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 Chief Complaint RENAL 3 month Follow up kusum reader Reason for Visit Anemia BMI 50.0-59.9, adult Edema Hyperlipidemia [id number] 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 Diabetes Dietary counseling and surveillance HTN (hypertension) Hyperlipidemia Vitamin B 12 deficiency Chief Complaint RENAL 3 month Follow up kusum reader N18.32 R60.9 D64.9 Z68.43 E78.5 E11.22 I12.9 Reason for Visit Anemia BMI 50.0-59.9, adult Edema Hyperlipidemia [id number] 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 BMI 40.0-44.9, adult Diabetes Dietary counseling and surveillance HTN (hypertension) Hyperlipidemia Vitamin B 12 deficiency Chief Complaint RENAL 3 month Follow up kusum reader N18.32 R60.9 D64.9 Z68.43 E78.5 E11.22 I12.9 RENAL F/U Reason for Visit Anemia BMI 50.0-59.9, adult Edema Hyperlipidemia [id number] 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 BMI 40.0-44.9, adult Diabetes Dietary counseling and surveillance HTN (hypertension) Hyperlipidemia Vitamin B 12 deficiency Anemia Edema Fibrillary glomerulonephritis Hyperparathyroidism [id number] Stage 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 Chief Complaint RENAL 3 month Follow up kusum reader N18.32 R60.9 D64.9 Z68.43 E78.5 E11.22 I12.9 RENAL F/U 3 week f/u Reason for Visit Anemia BMI 50.0-59.9, adult Edema Hyperlipidemia [id number] 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 BMI 40.0-44.9, adult Diabetes Dietary counseling and surveillance HTN (hypertension) Hyperlipidemia Vitamin B 12 deficiency Anemia Edema Fibrillary glomerulonephritis Hyperparathyroidism [id number] Stage 3b chronic kidney disease (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 Anemia Edema Fibrillary glomerulonephritis Hyperparathyroidism [id number] Stage 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 Chief Complaint RENAL 3 month Follow up kusum reader N18.32 R60.9 D64.9 Z68.43 E78.5 E11.22 I12.9 RENAL F/U 3 week f/u RENAL 2 MONTH F/U Reason for Visit Anemia BMI 50.0-59.9, adult Edema Hyperlipidemia [id number] Stage 3b chronic kidney disease (CKD) Type 2 diabetes mellitus with diabetic chronic kidney disease BMI 40.0-44.9, adult Diabetes Dietary counseling and surveillance HTN (hypertension) Hyperlipidemia Vitamin B 12 deficiency Anemia Edema Fibrillary glomerulonephritis Hyperparathyroidism [id number] Stage 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 Anemia Edema Fibrillary glomerulonephritis Hyperparathyroidism [id number] Stage 3b chronic kidney disease (CKD) Type 2 diabetes mellitus with diabetic chronic kidney disease Anemia Edema Fibrillary glomerulonephritis Hyperparathyroidism [id number] Stage 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 Chief Complaint RENAL 3 month Follow up kusum reader N18.32 R60.9 D64.9 Z68.43 E78.5 E11.22 I12.9 RENAL F/U 3 week f/u RENAL 2 MONTH F/U RENAL 3 WK INJ RETACRIT Reason for Visit Anemia BMI 50.0-59.9, adult Edema Hyperlipidemia [id number] 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 BMI 40.0-44.9, adult Diabetes Dietary counseling and surveillance HTN (hypertension) Hyperlipidemia Vitamin B 12 deficiency Anemia Edema Fibrillary glomerulonephritis Hyperparathyroidism [id number] Stage 3b chronic kidney disease (CKD) Type 2 diabetes mellitus with diabetic chronic kidney disease Anemia Edema Fibrillary glomerulonephritis Hyperparathyroidism [id number] Stage 3b chronic kidney disease (CKD) Type 2 diabetes mellitus with diabetic chronic kidney disease Anemia Edema Fibrillary glomerulonephritis Hyperparathyroidism [id number] Stage 3b chronic kidney disease (CKD) Type 2 diabetes mellitus with diabetic chronic kidney disease Anemia Edema Fibrillary glomerulonephritis Hyperkalemia Hyperparathyroidism [id number] Stage 3b chronic kidney disease (CKD) Type [...] 12 deficiency Anemia Edema Fibrillary glomerulonephritis Hyperparathyroidism [id number] Stage 3b chronic kidney disease (CKD) Type 2 diabetes mellitus with diabetic chronic kidney disease Anemia Edema Fibrillary glomerulonephritis Hyperparathyroidism [id number] Stage 3b chronic kidney disease (CKD) Type 2 diabetes mellitus with diabetic chronic kidney disease Anemia Edema Fibrillary glomerulonephritis Hyperparathyroidism [id number] Stage 3b chronic kidney disease (CKD) Type 2 diabetes mellitus with diabetic chronic kidney disease Anemia Edema Fibrillary glomerulonephritis Hyperkalemia Hyperparathyroidism [id number] Stage 3b chronic kidney disease (CKD) Type 2 diabetes mellitus with diabetic chronic kidney disease Anemia Edema Fibrillary glomerulonephritis Hyperkalemia Hyperparathyroidism [id number] Stage 3b chronic kidney disease (CKD) Type 2 diabetes mellitus with diabetic chronic kidney disease Chief Complaint RENAL F/U 3 week f/u RENAL 2 MONTH F/U RENAL 3 WK INJ RETACRIT RENAL 2 WK INJ / RETACRIT METER Reason for Visit Anemia Edema Fibrillary glomerulonephritis Hyperparathyroidism [id number] Stage 3b chronic kidney disease (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 Anemia Edema Fibrillary glomerulonephritis Hyperparathyroidism [id number] Stage 3b chronic kidney disease (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 Anemia Edema Fibrillary glomerulonephritis Hyperparathyroidism [id number] Stage 3b chronic kidney disease (CKD) Type 2 diabetes mellitus with diabetic chronic kidney disease Anemia Edema Fibrillary glomerulonephritis Hyperkalemia Hyperparathyroidism [id number] Stage 3b chronic kidney disease (CKD) Type 2 diabetes mellitus with diabetic chronic kidney disease Anemia Edema Fibrillary glomerulonephritis Hyperkalemia Hyperparathyroidism [id number] Stage 3b chronic kidney disease (CKD) Type [...] for Visit Anemia Edema Fibrillary glomerulonephritis Hyperparathyroidism [id number] Stage 3b chronic kidney disease (CKD) Type 2 diabetes mellitus with diabetic chronic kidney disease Anemia Edema Fibrillary glomerulonephritis Hyperparathyroidism [id number] Stage 3b chronic kidney disease (CKD) Type 2 diabetes mellitus with diabetic chronic kidney disease Anemia Edema Fibrillary glomerulonephritis Hyperkalemia Hyperparathyroidism [id number] Stage 3b chronic kidney disease (CKD) Type 2 diabetes mellitus with diabetic chronic kidney disease Anemia Edema Fibrillary glomerulonephritis Hyperkalemia Hyperparathyroidism [id number] Stage 3b chronic kidney disease (CKD) Type [...] for Visit Anemia Edema Fibrillary glomerulonephritis Hyperparathyroidism [id number] Stage 3b chronic kidney disease (CKD) Type 2 diabetes mellitus with diabetic chronic kidney disease Anemia Edema Fibrillary glomerulonephritis Hyperkalemia Hyperparathyroidism [id number] Stage 3b chronic kidney disease (CKD) Type 2 diabetes mellitus with diabetic chronic kidney disease Anemia Edema Fibrillary glomerulonephritis Hyperkalemia Hyperparathyroidism [id number] Stage 3b chronic kidney disease (CKD) Type [...] for Visit Anemia Edema Fibrillary glomerulonephritis Hyperparathyroidism [id number] Stage 3b chronic kidney disease (CKD) Type 2 diabetes mellitus with diabetic chronic kidney disease Anemia Edema Fibrillary glomerulonephritis Hyperkalemia Hyperparathyroidism [id number] Stage 3b chronic kidney disease (CKD) Type 2 diabetes mellitus with diabetic chronic kidney disease Anemia Edema Fibrillary glomerulonephritis Hyperkalemia Hyperparathyroidism [id number] Stage 3b chronic kidney disease (CKD) Type [...] Visit Anemia Edema Fibrillary glomerulonephritis Hyperkalemia Hyperparathyroidism [id number] Stage 3b chronic kidney disease (CKD) Type 2 diabetes mellitus with diabetic chronic kidney disease Anemia Edema Fibrillary glomerulonephritis Hyperkalemia Hyperparathyroidism [id number] Stage 3b chronic kidney disease (CKD) Type [...] (CKD) Anemia Edema Fibrillary glomerulonephritis Hyperkalemia Hyperparathyroidism [id number] Stage 3b chronic kidney disease (CKD) Type [...] Visit Anemia Edema Fibrillary glomerulonephritis Hyperkalemia Hyperparathyroidism [id number] Stage 3b chronic kidney disease (CKD) Type [...] (CKD) Anemia Edema Fibrillary glomerulonephritis Hyperkalemia Hyperparathyroidism [id number] Stage 3b chronic kidney disease (CKD) Type [...] (CKD) Anemia Edema Fibrillary glomerulonephritis Hyperkalemia Hyperparathyroidism [id number] Stage 3b chronic kidney disease (CKD) Type 2 diabetes mellitus with diabetic chronic kidney disease Anemia Anemia of renal disease 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 [id number] Chief Complaint RENAL 2 WK INJ/RETAC RIT/NURSE [...] (CKD) Anemia Edema Fibrillary glomerulonephritis Hyperkalemia Hyperparathyroidism [id number] Stage 3b chronic kidney disease (CKD) Type 2 diabetes mellitus with diabetic chronic kidney disease Anemia Anemia of renal disease Stage 3b chronic kidney disease (CKD) Anemia Chronic kidney disease, stage IV (severe) Edema Fibrillary glomerulonephritis Hyperkalemia Hyperparathyroidism [id number] Type 2 diabetes mellitus with diabetic chronic [...] diabetes melli tus June 03, 2024 11:32am Reason for Visit [...] stage 4 due to type 1 diabetes [facility] May 04, 2024 11:08am Anemia of renal disease June 03 11:32am 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 [facility] June 03, 2024 11:32am BMI 40.0-44.9, [...] stage 4 due to type 1 diabetes [facility] May 04, 2024 11:08am Anemia of renal disease June 03 11:32am 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 [facility] June 03, 2024 11:32am BMI 40.0-44.9, adult June 14, 2024 1:49pm Diabetes June 14, 2024 1 :49pm Dietary counseling and surveillance Freddy wilson 2024 1:49pm HTN (hypertension) June 14, 2024 1 :49pm Hyperlipidemia June 14, 2024 1 :49pm Anemia June 17, 2024 1 :50pm 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 June 17, 2024 1:50pm Chief Complaint [...] stage 4 due to type 1 [facility] May 04, 2024 11:08am Anemia of renal disease June 03 11:32am 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 June 03, 2024 11:32am BMI 40.0-44.9, [...] stage 4 due to type 1 diabetes [facility] May 04, 2024 11:08am Anemia of renal disease June 03 11:32am 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 [facility] June 03, 2024 11:32am BMI 40.0-44.9, [...] Date RENAL 2-3 WK INJ F/U / RETJTIT / DR Cricket perez 2024 1:50pm RENAL [...] chronic kidney disease October 26, 2024 9:53am Chief Complaint Admit Date M54.9 September 01, 2024 10: 20am 3 week inj September 13, 2024 10: 16am 3 week inj October 05, 2024 1:04p m RENAL 3 WEEK INJ October 26, 2024 9:53 am Unknown November 07, 2024 2:25 pm Hypoxia, Hypercapnia Respiratory Failure November 09, 2024 11:24pm Hypoxia, Hypercapnia Respiratory Failure November 16, 2024 12:00am Reason for Visit Admit Date Anemia of renal disease September 13, 2024 [...] chronic kidney disease October 26, 2024 9:53am Acute hypoxic respiratory failure October 182024 11:24pm Bilateral pneumonia November 09, 2024 11:2 4pm Chronic kidney disease, stage IV (severe ) November 09, 2024 11:24pm COPD (chronic obstructive pulmonary dise ase) November 09, 2024 11:24pm Diabetes November 09, 2024 11:2 4pm Fibrillary glomerulonephritis November 09, 2024 11:24pm HTN (hypertension) November 09, 2024 11:2 4pm Hyperkalemia November 09, 2024 11:2 4pm Hyperlipidemia November 09, 2024 11:2 4pm Hypernatremia November 09, 2024 11:2 4pm Hypertensive chronic kidney disease with stage 1 through stage 4 chronic ki November 09, 2024 11:24pm Impaired mobility and activities of jonn y living November 09, 2024 11:24pm MRSA bacteremia November 09, 2024 11:2 4pm Stage 3b chronic kidney disease (CKD) Ju 2024 11:24pm Type 2 diabetes mellitus wit h diabetic chronic kidney disease November 09, 2024 11:24pm Additional Source Comments REASON FOR VISIT (unrecogniz [...] Comments Med Refill 09/09/2024 Reason Comments Nail care Margie Martínez is a 84 y.o. female who presents for DM Foot Care. PCP: Chester Lin LV 06/16/24, A1C: 5.4, BS: 88, SS: 7.5-8 INFORMATION SOURCE (unrecogn ized section and content) DATE CREATED AUTHOR 10/27/2022 [facility] DATE CREATED AUTHOR AUTHOR'S ORGANIZ ATION 01/13/2024 [facility] DATE CREATED AUTHOR AUTHOR'S ORGANIZ ATION 05/12/2024 [facility] DATE CREATED AUTHOR AUTHOR'S ORGANIZ ATION 10/15/2024 [facility] DATE CREATED AUTHOR AUTHOR'S ORGANIZ ATION 10/29/2024 [facility] DATE CREATED AUTHOR AUTHOR'S ORGANIZ ATION 11/04/2024 [facility] DATE CREATED AUTHOR AUTHOR'S ORGANIZ ATION 11/19/2024 [facility] Care Teams (unrecognized sec tion and content) Team Status: Active Member Role Status Dates Anika Henry SPANISHER-C Primary Care Provider Active Team Status: Inactive Member Role Status Dates Anika Henry NP-C Primary Care Provider Active Start: September 01, 2024 End: September 01, 2024 Rin Ramirez MD Attending Provider Active Star t: September 01, 2024 End: September 01, 2024 Team Status: Active Member Role Status Dates Rin Ramirez MD Attending Provider Active Star t: September 02, 2024 Anika Henry NP-C Primary Care Provider Active Start: September 02, 2024 Team Status: Inactive Member Role Status Dates Anika Henry NP-C Primary Care Provider Active Start: September 13, 2024 End: September 13, 2024 Becca Rodriguez MD Attending Provider Active Start : September 13, 2024 End: September 13, 2024 Team Status: Active Member Role Status Dates Anika Henry NP-C Primary Care Provider Active Start: September 29, 2024 Becca Rodriguez MD Attending Provider Active Start : September 29, 2024 Team Status: Inactive Member Role Status Dates Anika Henry NP-C Primary Care Provider Active Start: October 05, 2024 End: October 05, 2024 Rin Ramirez MD Attending Provider Active Star t: October 05, 2024 End: October 05, 2024 Team Status: Active Member Role Status Dates Rin Ramirez MD Attending Provider Active Star t: October 22, 2024 Anika Henry NP-C Primary Care Provider Active Start: October 22, 2024 Team Status: Inactive Member Role Status Dates Anika Henry NP-C Primary Care Provider Active Start: October 26, 2024 End: October 26, 2024 Rin Ramirez MD Attending Provider Active Star t: October 26, 2024 End: October 26, 2024 Team Status: Inactive Member Role Status Dates Quincy Rai MD Attending Provider Active Sta rt: November 07, 2024 End: November 07, 2024 Team Status: Active Member Role Status Dates Anika Henry SPANISHER-C Primary Care Provider Active Start: November 09, 2024 Patrick Mari DO Admit Provider Active Start: November 09, 2024 Ryne Garcia MD Other Provider Active Start: November 09, 2024 Becca Rodriguez MD Other Provider Active Start: 2024 Lary Bernal APRN ACNP-BC Other Provider Active Start: November 09, 2024 Cody Parks MD Other Provider Active Start: November 09, 2024 Kyle Ellis MD Other Provider Active St art: November 09, 2024 Michele Pierce MD Other Provider Active Start: 2024 Jimmy Ernandez DO Other Provider Active Start: November 09, 2024 Koffi Jenkins DO Other Provider Active Start: November 09, 2024 Noah Benítez MD Other Provider Active Start: 2024 Miguel Angel Harrison MD Other Provider Activ e Start: November 09, 2024 Narciso Patrick MD Other Provider Active Start: 2024 Pratima Bustos MD Other Provider Active Start: November 09, 2024 Amber Andersen MD Other Provider Active Start: 2024 Kj Croft MD Other Provider Active Start: 2024 Kim Weber APRN Other Provider Active St art: November 09, 2024 Shai Robles Jr, DO Other Provider Active S tart: November 09, 2024 Vamshi Meyer MD Attending Provider Active Start: November 09, 2024 Vamshi Meyer MD Other Provider Active Start: November 09, 2024 Bhargav Medel MD Other Provider Active Start: 2024 Team Status: Active Member Role Status Dates Anika Henry SPANISHER-C Primary Care Provider Active Start: November 16, 2024 Patrick Mari DO Admit Provider Active Start: November 16, 2024 Ryne Garcia MD Attending Provider Active Sta rt: November 16, 2024 Ryne Garcia MD Other Provider Active Start: November 16, 2024 Becca Rodriguez MD Other Provider Active Start: ly 2024 Amber Andersen MD Other Provider Active Start: ly 2024 Kj Croft MD Other Provider Active Start: J carmelo 2024 Kim Weber APRN Other Provider Active St art: November 16, 2024 Shai Robles Jr, Other Provider Active S tart: November 16, 2024 Vamshi Meyer MD Other Provider Active Start: November 16, 2024 Bhargav Medel MD Other Provider Active Start: ly 2024 Team Status: Active Member Role Status Dates Rin Ramirez MD Attending Provider Active Star t: August 04, 2024 Anika Henry NP-C Primary Care Provider Active Start: August 04, 2024 Team Status: Inactive Member Role Status Dates Anika Henry NP-C Primary Care Provider Active Start: August 17, 2024 End: August 17, 2024 Rin Ramirez MD Attending Provider Active Star t: August 17, 2024 End: August 17, 2024 Team Status: Inactive Member Role Status Dates Anika Henry NP-C Primary Care Provider Active Start: June 14, 2024 End: June 14, 2024 Chester Lin APRN Attending Provider Active Start: June 14, 2024 End: June 14, 2024 Team Status: Inactive Member Role Status Dates Anika Henry NP-C Primary Care Provider Active Start: June 17, 2024 End: June 17, 2024 Becca Rodriguez MD Attending Provider Active Start : June 17, 2024 End: June 17, 2024 Team Status: Inactive Member Role Status Dates Anika Henry NP-C Primary Care Provider Active Start: 2024 End: 2024 Rin Ramirez MD Attending Provider Active Star t: 2024 End: 2024 Team Status: Active Member Role Status Dates Rin Ramirez MD Attending Provider Active Star t: July 20, 2024 Anika Deepa Elaine , SPANISHER-C Primary Care Provider Active Start: July 20, 2024 Team Status: Inactive Member Role Status Dates Anika Henry , SPANISHER-C Primary Care Provider Active Start: July 27, 2024 End: July 27, 2024 Rin Ramirez MD Attending Provider Active Star t: July 27, 2024 End: July 27, 2024 Team Status: Active Member Role Status Dates Rin Ramirez MD Attending Provider Active Star t: May 25, 2024 Anika Henry SPANISHER-C Primary Care Provider Active Start: May 25, 2024 Team Status: Inactive Member Role Status Dates Anika Henry , SPANISHER-C Primary Care Provider Active Start: June 03, 2024 End: June 03, 2024 Becca Rodriguez MD Attending Provider Active Start : June 03, 2024 End: June 03, 2024 Team Status: Active Member Role Status Dates Anika Henry SPANISHER-C Primary Care Provider Active Start: June 10, 2024 Becca Rodriguez MD Attending Provider Active Start : June 10, 2024 Team Status: Inactive Member Role Status Dates Anika Henry SPANISHER-C Primary Care Provider Active Start: March 23, 2024 End: March 23, 2024 Rin Ramirez MD Attending Provider Active Star t: March 23, 2024 End: March 23, 2024 Team Status: Inactive Member Role Status Dates Anika Henry SPANISHER-C Primary Care Provider Active Start: March 30, 2024 End: March 30, 2024 Rin Ramirez MD Attending Provider Active Star t: March 30, 2024 End: March 30, 2024 Team Status: Active Member Role Status Dates Rin Ramirez MD Attending Provider Active Star t: April 13, 2024 Anika Henry SPANISHER-C Primary Care Provider Active Start: April 13, 2024 Team Status: Inactive Member Role Status Dates Anika Henry SPANISHER-C Primary Care Provider Active Start: April 20, 2024 End: April 20, 2024 Rin Ramirez MD Attending Provider Active Star t: April 20, 2024 End: April 20, 2024 Team Status: Active Member Role Status Dates Anika Henry SPANISHER-C Primary Care Provider Active Start: April 28, 2024 Rin Ramirez MD Attending Provider Active Star t: April 28, 2024 Team Status: Inactive Member Role Status Dates Anika Henry SPANISHER-C Primary Care Provider Active Start: May 04, 2024 End: May 04, 2024 Rin Ramirez MD Attending Provider Active Star t: May 04, 2024 End: May 04, 2024 Team Status: Active Member Role Status Dates Rin Ramirez MD Attending Provider Active Star t: January 05, 2024 Anika Henry SPANISHER-C Primary Care Provider Active Start: January 05, 2024 Team Status: Inactive Member Role Status Dates Anika Henry SPANISHER-C Primary Care Provider Active Start: January 13, 2024 End: January 13, 2024 Rin Ramirez MD Attending Provider Active Star t: January 13, 2024 End: January 13, 2024 Team Status: Active Member Role Status Andrés Rodriguez MD Attending Provider Active Start : January 20, 2024 Anika Henry , SPANISHER-C Primary Care Provider Active Start: January 20, 2024 Team Status: Active Member Role Status Andrés Ramirez MD Attending Provider Active Star t: January 23, 2024 Anika Henry SPANISHER-C Primary Care Provider Active Start: January 23, 2024 Team Status: Inactive Member Role Status Andrés Henry SPANISHER-C Primary Care Provider Active Start: January 27, 2024 End: January 27, 2024 Rin Ramirez MD Attending Provider Active Star t: January 27, 2024 End: January 27, 2024 Team Status: Active Member Role Status Andrés Ramirez MD Attending Provider Active Star t: February 03, 2024 Anika Henry SPANISHER-C Primary Care Provider Active Start: February 03, 2024 Team Status: Inactive Member Role Status Andrés Henry SPANISHER-C Primary Care Provider Active Start: February 10, 2024 End: February 10, 2024 Rin Ramirez MD Attending Provider Active Star t: February 10, 2024 End: February 10, 2024 Team Status: Active Member Role Status Andrés Ramirez MD Attending Provider Active Star t: February 23, 2024 Anika Henry SPANISHER-C Primary Care Provider Active Start: February 23, 2024 Team Status: Inactive Member Role Status Dates Anika Henry SPANISHER-C Primary Care Provider Active Start: March 02, 2024 End: March 02, 2024 Rin Ramirez MD Attending Provider Active Star t: March 02, 2024 End: March 02, 2024 Team Status: Active Member Role Status Dates Anika Henry SPANISHER-C Primary Care Provider Active Start: March 17, 2024 Rin Ramirez MD Attending Provider Active Star t: March 17, 2024 Team Status: Inactive Member Role Status Dates Anika Henry SPANISHER-C Primary Care Provider Active Start: December 08, 2023 End: December 08, 2023 Chester Lin APRN Attending Provider Active Start: December 08, 2023 End: December 08, 2023 Team Status: Inactive Member Role Status Dates Anika Henry , SPANISHER-C Primary Care Provider Active Start: December 11, 2023 End: December 11, 2023 Becca Rodriguez MD Attending Provider Active Start : December 11, 2023 End: December 11, 2023 Team Status: Inactive Member Role Status Dates Anika Henry SPANISHER-C Primary Care Provider Active Start: December 30, 2023 End: December 30, 2023 Rin Ramirez MD Attending Provider Active Star t: December 30, 2023 End: December 30, 2023 Team Status: Active Member Role Status Dates Anika Henry SPANISHER-C Primary Care Provider Active Start: October 30, 2023 Rin Ramirez MD Attending Provider Active Star t: October 30, 2023 Team Status: Inactive Member Role Status Dates Anika Henry SPANISHER-C Primary Care Provider Active Start: November 05, 2023 End: November 05, 2023 Rin Ramirez MD Attending Provider Active Star t: November 05, 2023 End: November 05, 2023 Team Status: Active Member Role Status Dates Anika Henry SPANISHER-C Primary Care Provider Active Start: November 13, 2023 Rin Ramirez MD Attending Provider Active Star t: November 13, 2023 Team Status: Inactive Member Role Status Dates Anika Henry SPANISHER-C Primary Care Provider Active Start: November 18, 2023 End: November 18, 2023 Rin Ramirez MD Attending Provider Active Star t: November 18, 2023 End: November 18, 2023 Team Status: Active Member Role Status Dates Rin Ramirez MD Attending Provider Active Star t: November 27, 2023 Anika Henry SPANISHER-C Primary Care Provider Active Start: November 27, 2023 Team Status: Inactive Member Role Status Dates Anika Henry SPANISHER-C Primary Care Provider Active Start: October 15, 2023 End: October 15, 2023 Rin Ramirez MD Attending Provider Active Star t: October 15, 2023 End: October 15, 2023 Team Status: Active Member Role Status Dates Anika Henry SPANISHER-C Primary Care Provider Active Start: September 16, 2023 Rin Ramirez MD Attending Provider Active Star t: September 16, 2023 Team Status: Inactive Member Role Status Dates Anika Henry SPANISHER-C Primary Care Provider Active Start: September 23, 2023 End: September 23, 2023 Rin Ramirez MD Attending Provider Active Star t: September 23, 2023 End: September 23, 2023 Team Status: Active Member Role Status Dates Rin Ramirez MD Attending Provider Active Star t: October 07, 2023 Anika Henry SPANISHER-C Primary Care Provider Active Start: October 07, 2023 Team Status: Inactive Member Role Status Dates Anika Henry SPANISHER-C Primary Care Provider Active Start: August 13, 2023 End: August 13, 2023 Rin Ramirez MD Attending Provider Active Star t: August 13, 2023 End: August 13, 2023 Team Status: Inactive Member Role Status Dates Anika Henry SPANISHER-C Primary Care Provider Active Start: August 20, 2023 End: August 20, 2023 Chester Lin APRN Attending Provider Active Start: August 20, 2023 End: August 20, 2023 Team Status: Inactive Member Role Status Dates Anika Henry SPANISHER-C Primary Care Provider Active Start: September 01, [...] April 22, 2023 End: April 22, 2023 Electronic Warfare Operator Relationship Specialty Start Date End Date Cole Henry MD [address] [place] [id number] PCP - General Family Medicine 11/20/22 Electronic Warfare Operator Relationship Specialty Start Date End Date Cole Henry MD [address] [place] [id number] PCP - General Family Medicine 11/20/22 Electronic Warfare Operator Relationship Specialty Start Date End Date Anika Henry APRN-CNP [address] [place] [address] PCP - General Family Medicine 04/29/23 Electronic Warfare Operator Relationship Specialty Start Date End Date Anika Henry APRN-CNP [address] [place] [address] PCP - General Family Medicine 04/29/23 Electronic Warfare Operator Relationship Specialty Start Date End Date Anika Henry APRN-CNP [address] [facility] [place] [address] PCP - General Family Medicine 04/29/23 Electronic Warfare Operator Relationship Specialty Start Date End Date Anika Henry APRN-CNP [address] [facility], [place] [address] PCP - General Family Medicine 04/29/23 Electronic Warfare Operator Relationship Specialty Start Date End Date Anika Henry APRN-[employer] [address] [facility], [place] [address] PCP - General Family Medicine 04/29/23 Electronic Warfare Operator Relationship Specialty Start Date End Date Cole Henry MD [address] [place] [address] PCP - General Family Medicine 11/20/22 Electronic Warfare Operator Relationship Specialty Start Date End Date Cole Henry MD [address] [place] [address] PCP - General Family Medicine 11/20/22 Electronic Warfare Operator Relationship Specialty Start Date End Date Anika Henry APRN-[employer] [address] [facility], [place] [address] PCP - General Family Medicine 04/29/23 Electronic Warfare Operator Relationship Specialty Start Date End Date Anika Henry APRN-[employer] [address] [facility], [place] [address] PCP - General Family Medicine 04/29/23 Electronic Warfare Operator Relationship Specialty Start Date End Date Anika Henry APRN-[employer] [address] [facility], [place] [address] PCP - General Family Medicine 04/29/23 Electronic Warfare Operator Relationship Specialty Start Date End Date Anika Henry APRN-CNP [address] [facility], [place] [address] PCP - General Family Medicine 04/29/23 Electronic Warfare Operator Relationship Specialty Start Date End Date Anika Henry APRN-CNP [address] [facility], [place] [address] PCP - General Family Medicine 04/29/23 Goals [...] BE BASED ON THE PRIMARY CLINICAL RECORDS. [facility]. provides no warranty or guarantee of the accuracy or completeness of information in this document.
--- NOTE | 2024-11-20 19:18 | XR_ITS ---
The [address] [address] Patient Name: JONATHAN HILL MRN: [id number] date: 1940 Sex: F Assigned Patient Location: ER Current Patient Location: ED.MAIN Accession/Order Number: [id number] Exam Date: 11/21/2024 09:04 Report Date: 11/21/2024 09:05 At the request of: RADHA WAGONER Procedure: XR chest 1V Single view HISTORY: Shortness of breath. Epigastric pain. Cardiomegaly. Hilar vascular congestion., Basilar groundglass parenchymal densities. Minimal basilar pleural reaction. No pneumothorax. XR/XR chest 1V IMPRESSION: CHF findings. Infiltrate may be present. Impression dictated by: Neto Luna M.D. 11/21/2024 9:05 AM Dictation Location: [place] [address] Electronically authenticated by: [id number] Y Date: 11/21/2024 09:05
--- NOTE | 2024-11-20 19:22 | ECG_ITS ---
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 Measurements Intervals [place] Rate: 72 P: -22790 RI: 179 QRS: -62 QRSD: 158 T: 104 QT: 454 QTc: 478 Interpretive Statements 1100 Sinus rhythm 2450 Right bundle branch block 2630 Left anterior fascicular block 3532 Lateral myocardial infarction, probably recent 5234 Left ventricular hypertrophy with repolarization abnormality 9150 abnormal ECG Compared to ECG 11/07/2024 11:01:10 No significant changes Electronically Signed On 11-21-2024 17:30:10 EDT by STEPHANIE MARTIN M.D.
--- NOTE | 2024-11-20 19:29 | ED.GENADUL1 ---
HPI HPI - General Adult General Chief complaint: Shortness of Breath/Dyspnea Time Seen by Provider: 11/20/24 19:12 Source: patient History of Present Illness HPI narrative: Patient is an 84-year-old female who presents full code from the [place] for evaluation of epigastric pain patient started complaining of pain yesterday after eating some fried fish and had barbecue pork today. She has a pertinent history of COPD with recent hospitalization for pneumonia and intubation on November 09 transferred to [facility] and recently discharged. Patient at bedside after EMS transport states she is feeling short of breath. I cannot breathe. Patient is on 4 L/min nasal cannula mid 80's pulse ox but is breathing through her mouth rapidly with dry mucous membranes. She has her eyes closed but is alert to conversation and appears too short of breath to relay recent history. Patient denies any chest pain but localizes her epigastric pain near the xiphoid process in the epigastrium. She denies any lower abdominal pain. She admits that she is short of breath all the time but currently symptoms feel that they are worse. denies Any back pain or nausea/ vomiting, but has had diarrhea since being hospitalized. Onset (ago): day(s) (2) Location: Reports abdomen (epigastric) Radiation: Reports non-radiation Severity: mild Quality: Reports aching Pain Consistency: Reports constant Relieving factors: Reports none Exacerbating factors: Reports other (food) Associated symptoms: Reports shortness of breath and weakness Treatments prior to arrival: Reports other (albuterol nebulizer ) Related Data Home Medications �Medication �Instructions �Recorded �Confirmed albuterol sulfate 90 mcg/actuation 2 puff inhalation Q4H PRN 05/08/23 11/20/24 aerosol inhaler shortness of breath or wheezing bumetanide 1 mg tablet 1 mg PO BID 05/08/23 11/20/24 carvedilol 25 mg tablet 12.5 mg PO Q12H 05/08/23 11/20/24 cholecalciferol (vitamin D3) 50 2,000 unit PO DAILY 05/08/23 11/20/24 mcg (2,000 unit) capsule hydralazine 50 mg tablet 50 mg PO Q8H 05/08/23 11/20/24 ipratropium 0.5 mg-albuterol 3 mg 1.5 ml inhalation Q4H PRN 05/08/23 11/20/24 (2.5 mg base)/3 mL nebulization shortness of breath or wheezing soln levothyroxine 100 mcg tablet 125 mcg PO DAILY 05/08/23 11/20/24 (Euthyrox) loratadine 10 mg capsule 10 mg PO DAILY PRN allergy symptoms 05/08/23 11/20/24 nifedipine 60 mg tablet,extended 60 mg PO DAILY 05/08/23 11/20/24 release 24 hr omeprazole 20 mg capsule,delayed 20 mg PO DAILY 05/08/23 11/20/24 release amiodarone 200 mg tablet 200 mg PO DAILY 10/05/24 11/20/24 ferrous sulfate 325 mg (65 mg 325 mg PO BID 10/05/24 11/20/24 iron) tablet,delayed release fluticasone 250 mcg-salmeterol 50 1 inh inhalation Q12H 11/07/24 11/20/24 mcg/dose blistr powdr for inhalation vitamin B complex 1 cap PO DAILY 11/07/24 11/20/24 atorvastatin 20 mg tablet 20 mg PO DAILY 11/20/24 11/20/24 budesonide-formoterol HFA 160 2 inh inhalation BID 11/20/24 11/20/24 mcg-4.5 mcg/actuation aerosol inhaler (Breyna) linezolid 600 mg tablet 600 mg PO Q12H 11/20/24 11/20/24 sodium zirconium cyclosilicate 10 10 g PO DAILY 11/20/24 11/20/24 gram oral powder packet ([facility]) warfarin 2 mg tablet 2 mg PO DAILY 11/20/24 11/20/24 Allergies Allergy/AdvReac Type Severity Reaction Status Date / Time Penicillins Allergy Severe Unknown Verified 11/20/24 19:13 Sulfa (Sulfonamide Allergy Severe Unknown Verified 11/20/24 19:13 Antibiotics) sulfamethoxazole (From Allergy Severe Unknown Verified 11/20/24 19:13 Bactrim) trimethoprim (From Bactrim) Allergy Severe Unknown Verified 11/20/24 19:13 Opioid HPI Opioid Management Most Recent Opioid Data: Last Pain Scale 3 11/09/24, 01:00 Last ORT Total Score 0 11/07/24, 14:16 Last ORT Risk Category Low Risk 11/07/24, 14:16 Review of Systems ROS Constitutional Reports: fatigue; Denies: fever or chills Eyes Denies: change in vision or blurry vision Ears, nose, mouth, and throat Denies: throat pain, neck pain or throat swelling Cardiovascular Reports: edema, swelling of feet/ankles, shortness of breath with exertion and shortness of breath when lying down; Denies: chest pain or palpitations Respiratory Reports: shortness of breath; Denies: cough Gastrointestinal Reports: diarrhea; Denies: abdominal pain, nausea or vomiting Genitourinary Denies: painful urination Musculoskeletal Reports: extremity swelling; Denies: back pain, neck pain, extremity pain or joint pain Integumentary/Breast Denies: rash, itching or redness Neurological Denies: headache Psychiatric Denies: anxiety Hematologic/Lymphatic Denies: easy bruising Allergic/Immunologic Denies: hives [facility] Social History Highest level of school completed/degree received: 10th grade Little interest or pleasure in doing things: not at all Feeling down, depressed, or hopeless: not at all Exam Narrative Exam Narrative: Nurses notes and vital signs reviewed and patient is not hypoxic. General: Patient sitting up eyes closed high flow rebreather mask present. Patient opens eyes to conversation, but only has 2-3 word senses. Skin: Warm, dry, no pallor noted. Of rash Head: Normocephalic, atraumatic Neck: Supple, trachea mid-line, no tenderness, no lymphadenopathy Eye: Pupils are equal, round and reactive to light, EOMI Ears, Nose, Mouth, and Throat: External exposure unremarkable patient has notably dry mucous membranes. Cardiovascular: harsh prominent Systolic ejection murmur noted Respiratory: Increased work of breathing significantly diminished in the bases slight expiratory wheeze but minimal exchange with mouth breathing. Chest Wall: no tenderness Back: non-tender, no CVA tenderness, mild sacral edema. Musculoskeletal: Denies pain to the knee or hip patient has 4+ lower leg edema/ history of lymphedema. GI: Normal bowel sounds, epigastric tenderness present and reproducible, no masses appreciated. No rebound, guarding, or rigidity noted. : LESA Coleman and Virginia Byrne at bedside, boyd catheter placement. Notable powder build up and excoriation to inner thighs and labia. Skin slightly peeling and erythematous. no full thickness ulceration seen or streaking into groin folds. appears contact derm irritation for depends. A&D oint applied. Neurological: A&O x4 Psychiatric: Cooperative Constitutional Vital Signs, click to edit/add: Last Vital Signs Temp 98.2 F 11/20/24 19:10 Pulse 70 11/20/24 22:01 Resp 18 11/20/24 22:01 BP 112/49 11/20/24 22:01 Pulse Ox 94 L 11/20/24 22:01 O2 Del Method Vapotherm 11/20/24 20:46 O2 Flow Rate 40 11/20/24 20:00 FiO2 80 11/20/24 20:00 Course Vital Signs Vital signs: Vital Signs Temperature 98.2 F 11/20/24 19:10 Pulse Rate 74 11/20/24 19:10 Respiratory Rate 22 H 11/20/24 19:10 Blood Pressure 116/53 11/20/24 19:10 Pulse Oximetry 82 L 11/20/24 19:10 Oxygen Delivery Method Nasal Cannula 11/20/24 19:10 Oxygen Delivery Flow Rate 5 11/20/24 19:10 Temperature 98.2 F 11/20/24 19:10 Pulse Rate 70 11/20/24 22:01 Respiratory Rate 18 11/20/24 22:01 Blood Pressure 112/49 11/20/24 22:01 Pulse Oximetry 94 L 11/20/24 22:01 Oxygen Delivery Method Vapotherm 11/20/24 20:46 Oxygen Delivery Flow Rate 40 11/20/24 20:00 Fraction of Inspired Oxygen 80 11/20/24 20:00 Medical Decision Making MDM Narrative Medical decision making narrative: Patient was sent for evaluation of epigastric abdominal pain, patient may have eaten foods recently that have upset her stomach. She has had diarrhea since being discharged from [facility] per patient. Concern at bedside exam was for respiratory distress patient with increased labored breathing and had low pulse oximetry on 4 L as she is mostly breathing through her mouth. Bedside rebreather mask noted to be 97% however she does appear to be working harder to breathe. Patient will be treated her breathing with a DuoNeb as she just received an albuterol treatment prior to arrival chest x-ray, IV steroid 125 mg and an ABG will be obtained given her history of COPD and recent intubation. Given her work of breathing she will be placed on BiPAP, gastric area is tender to palpation but there is no guarding rebound or rigidity abdomen appears nonsurgical. Concern regarding harsh cardiac murmur and significant leg edema. Admits most of these findings are chronic, but that she is worsening symptomatically. She is a full code Pepcid IV, zofran and Levsin SL for for symptoms. ( attempt GI cocktail if she can swallow PO- pt declined to take) - after breathing tx. Patient refused BiPAP application to decrease her effort with work of breathing. She will be trialed on Vapotherm. Vapotherm 40L @80% has Pusle ox at 97%, Boyd cather placed to watch urine output given her CHF Patient reevaluated at 8pm and appears to be similar to her arrival but more comfortable with Vapotherm in place, her oxygenation has improved. We reviewed preliminary labs and patient appears to be worse than previous hospital stay in regards to her anemia, kidney function and respiratory needs even CXR on persona interpretation shows more dense right lower lobe infiltrate. Patient case discussed with Dr. Dai at 8:20 PM and he feels the patient is too sick and has too many comorbidities to be admitted here and would recommend transfer to [facility], given her recent stay there. Patient is without fever lactic acid is normal white count is within normal limits she was previously treated for pneumonia recently we will hold on IV antibiotics pending evaluation by tertiary facility given her acute kidney injury and clinical presentation. Hospitalist for [facility] was paged, received phone call back that the patient can be admitted to Dr. Morin for progressive with a bed number given. States that Dr. Dai his partner spoke with him regarding the patient and need for transfer and the patient has been accepted at their facility. The patient's family are at the bedside and thankful and agreeable with transfer of patient. Lab Data Labs: Lab Results 11/20/24 11/20/24 11/20/24 Range/Units 19:20 19:35 20:31 WBC 10.9 (4.0-11.0) 10^3/uL RBC 2.68 L (4.20-5.40) 10^6/uL Hgb 8.1 L (12.0-16.0) g/dL Hct 27.4 L (36.0-48.0) % MCV 102.2 H (81.0-99.0) fL MCH 30.2 (26.7-34.0) pg MCHC 29.6 L (29.9-35.2) g/dL RDW 15.0 (11.0-15.0) % Plt Count 295 (150-450) 10^3/uL MPV 10.5 (9.5-13.5) fL Neut % (Auto) 84.3 H (43.0-75.0) % Lymph % (Auto) 5.4 L (20.5-60.0) % Bourbon % (Auto) 5.9 (1.7-12.0) % Eos % (Auto) 2.5 (0.9-7.0) % Baso % (Auto) 0.4 (0.2-2.0) % Neut # (Auto) 9.2 H (1.4-6.5) 10^3/uL Lymph # (Auto) 0.6 L (1.2-3.8) 10^3/uL Bourbon # (Auto) 0.6 (0.3-0.8) 10^3/uL Eos # (Auto) 0.3 (0.0-0.7) 10^3/uL Baso # (Auto) 0.0 (0.0-0.1) 10^3/uL Abs Immat Gran (auto) 0.16 H (0.00-0.03) 10^3/uL Imm/Tot Granulo (auto) 1.5 H (0.0-0.5) % PT 25.7 H (9.0-11.6) sec INR 2.67 APTT 41.3 H* (22.3-36.2) sec Puncture Site Lr ABG pH 7.215 L* (7.350-7.450) ABG pCO2 73.0 H* (35.0-45.0) mmHg ABG pO2 143.0 H (80.0-100.0) mmHg ABG HCO3 29.5 H (22.0-26.0) mmol/L ABG O2 Saturation 97.7 % ABG Base Excess 1.7 (-2.0-2.0) mmol/L Parag Test Positive (POSITIVE) O2 Liters/Min 15 FiO2 100 % Sodium 149 H (136-145) mmol/L Potassium 3.8 (3.5-5.1) mmol/L Chloride 108 H (98-107) mmol/L Carbon Dioxide 30.4 (21.0-32.0) mmol/L Anion Gap 14.4 BUN 67.0 H (7.0-18.0) mg/dL Creatinine 4.19 H (0.55-1.02) mg/dL Est GFR ( Amer) 12 L (>=60 mL/min/1.73m^2) Est GFR (Non-Af Amer) 10 L (>=60 mL/min/1.73m^2) BUN/Creatinine Ratio 16.0 Glucose 141 H (74-106) mg/dL Lactate 0.7 (0.4-2.0) mmol/L Calcium 8.5 (8.5-10.1) mg/dL Magnesium 2.4 (1.8-2.4) mg/dL Total Bilirubin 0.3 (0.2-1.0) mg/dL AST 15 (15-37) U/L ALT 22 (14-59) U/L Alkaline Phosphatase 91 (46-116) U/L Troponin I High Sens 19.9 (4.0-51.3) pg/mL NT-Pro-B Natriuret Pep 9139.0 H* (<=1800.0) pg/mL Total Protein 6.0 L (6.4-8.2) g/dL Albumin 2.0 L (3.4-5.0) g/dL Globulin 4.0 g/dL Albumin/Globulin Ratio 0.5 Lipase 62.0 (16.0-77.0) U/L Urine Color Yellow (YELLOW) Urine Clarity Cloudy A (CLEAR) Urine pH 5.5 (5.0-9.0) Ur Specific [place] 1.025 (1.005-1.025) Urine Protein 100 A (NEG/TRACE) mg/dL Urine Glucose (UA) Negative (NEGATIVE) mg/dL Urine Ketones Negative (NEGATIVE) mg/dL Urine Occult Blood Large A (NEGATIVE) Urine Nitrite Negative (NEGATIVE) Urine Bilirubin Negative (NEGATIVE) Urine Urobilinogen 0.2 (0.2-1.0) EU/dL Ur Leukocyte Esterase Negative (NEGATIVE) Urine RBC >100 A (0-2) #/HPF Urine WBC 20-50 A (NONE SEEN) #/HPF Ur Squamous Epith Cells Rare (NONE/RARE) #/LPF Urine Crystals None seen (None Seen) #/HPF Urine Bacteria Moderate A (NONE SEEN) #/HPF Urine Casts Seen A (NONE SEEN) #/LPF Hyaline Casts Moderate Coarse Granular Casts Rare RBC Casts Rare WBC Casts Rare Urine Mucus None seen (NONE SEEN) Ur Culture Indicated? Yes-[facility] [place] SARS-CoV-2 Ag (CV2AG) (NEGATIVE) 11/20/24 Range/Units 20:33 WBC (4.0-11.0) 10^3/uL RBC (4.20-5.40) 10^6/uL Hgb (12.0-16.0) g/dL Hct (36.0-48.0) % MCV (81.0-99.0) fL MCH (26.7-34.0) pg MCHC (29.9-35.2) g/dL RDW (11.0-15.0) % Plt Count (150-450) 10^3/uL MPV (9.5-13.5) fL Neut % (Auto) (43.0-75.0) % Lymph % (Auto) (20.5-60.0) % Bourbon % (Auto) (1.7-12.0) % Eos % (Auto) (0.9-7.0) % Baso % (Auto) (0.2-2.0) % Neut # (Auto) (1.4-6.5) 10^3/uL Lymph # (Auto) (1.2-3.8) 10^3/uL Bourbon # (Auto) (0.3-0.8) 10^3/uL Eos # (Auto) (0.0-0.7) 10^3/uL Baso # (Auto) (0.0-0.1) 10^3/uL Abs Immat Gran (auto) (0.00-0.03) 10^3/uL Imm/Tot Granulo (auto) (0.0-0.5) % PT (9.0-11.6) sec INR APTT (22.3-36.2) sec Puncture Site ABG pH (7.350-7.450) ABG pCO2 (35.0-45.0) mmHg ABG pO2 (80.0-100.0) mmHg ABG HCO3 (22.0-26.0) mmol/L ABG O2 Saturation % ABG Base Excess (-2.0-2.0) mmol/L Parag Test (POSITIVE) O2 Liters/Min FiO2 % Sodium (136-145) mmol/L Potassium (3.5-5.1) mmol/L Chloride (98-107) mmol/L Carbon Dioxide (21.0-32.0) mmol/L Anion Gap BUN (7.0-18.0) mg/dL Creatinine (0.55-1.02) mg/dL Est GFR ( Amer) (>=60 mL/min/1.73m^2) Est GFR (Non-Af Amer) (>=60 mL/min/1.73m^2) BUN/Creatinine Ratio Glucose (74-106) mg/dL Lactate (0.4-2.0) mmol/L Calcium (8.5-10.1) mg/dL Magnesium (1.8-2.4) mg/dL Total Bilirubin (0.2-1.0) mg/dL AST (15-37) U/L ALT (14-59) U/L Alkaline Phosphatase (46-116) U/L Troponin I High Sens (4.0-51.3) pg/mL NT-Pro-B Natriuret Pep (<=1800.0) pg/mL Total Protein (6.4-8.2) g/dL Albumin (3.4-5.0) g/dL Globulin g/dL Albumin/Globulin Ratio Lipase (16.0-77.0) U/L Urine Color (YELLOW) Urine Clarity (CLEAR) Urine pH (5.0-9.0) Ur Specific Midd[place] (1.005-1.025) Urine Protein (NEG/TRACE) mg/dL Urine Glucose (UA) (NEGATIVE) mg/dL Urine Ketones (NEGATIVE) mg/dL Urine Occult Blood (NEGATIVE) Urine Nitrite (NEGATIVE) Urine Bilirubin (NEGATIVE) Urine Urobilinogen (0.2-1.0) EU/dL Ur Leukocyte Esterase (NEGATIVE) Urine RBC (0-2) #/HPF Urine WBC (NONE SEEN) #/HPF Ur Squamous Epith Cells (NONE/RARE) #/LPF Urine Crystals (None Seen) #/HPF Urine Bacteria (NONE SEEN) #/HPF Urine Casts (NONE SEEN) #/LPF Hyaline Casts Coarse Granular Casts RBC Casts WBC Casts Urine Mucus (NONE SEEN) Ur Culture Indicated? SARS-CoV-2 Ag (CV2AG) Negative (NEGATIVE) ECG Data Attestation: I personally reviewed and interpreted this ECG as follows: Interpretation: EKG interpretation: Emergency Department physician interpretation, normal sinus [id number] bpm., no ST segment elevation, right bundle branch block. Critical Care Time Critical Care Time Critical Care Time: Yes Total Critical Care Time: 40 Attestation: Critical Care Time: 40 minutes, critical care time is separate from any procedures that are performed. The following was considered in the determination of critical care but not limited to the level medical decision-making, intensive cardiac and/or respiratory monitor, frequent vital sign monitoring, evaluation of laboratory studies, evaluation of a radiographic studies, oxygen monitoring and constant monitoring. Pt navigating treatment options with declining Bipap: Discharge Plan Discharge Chief Complaint: Shortness of Breath/Dyspnea Clinical Impression: Acute respiratory distress, COPD exacerbation, Right lower lobe pneumonia, Anemia, Acute kidney injury Patient Disposition: [facility] Time of Disposition Decision: 21:01 Discharge Location: [facility] Discharge location: [place] [id number] Condition: Fair Mode of Transportation: EMS Discharge Date/Time: 11/20/24 22:50
--- NOTE | 2024-11-20 19:30 | PC.NURSE ---
rapid mouth breathing
[2024-11-20] MEDS: IPRATROPIUM/ALBUTEROL SULFATE 3 ML AMPUL.NEB IH (19:43)
[2024-11-20 19:54] LABS: PO2 ABG 143.0 mmHg (80.0-100.0)
[2024-11-20 19:55] LABS: Allen Test POSITIVE (POSITIVE); HCO3 ABG 29.5 mmol/L (22.0-26.0); Liters per Minute 15; O2 Mode Non rebreather; Oxygen Saturation ABG 97.7 %; Puncture Site LR
[2024-11-20 19:55] LABS: Hematocrit 27.4 % (36.0-48.0); Hemoglobin 8.1 g/dL (12.0-16.0); Immature Granulocytes Abs Auto 0.16 10^3/uL (0.00-0.03); Immature Granulocytes Pct Auto 1.5 % (0.0-0.5); Lymphocytes Absolute Auto 0.6 10^3/uL (1.2-3.8); Mean Corpuscular HGB Conc 29.6 g/dL (29.9-35.2); Mean Corpuscular Hemoglobin 30.2 pg (26.7-34.0); Mean Corpuscular Volume 102.2 fL (81.0-99.0); Platelet Count 295 10^3/uL (150-450); Red Blood Count 2.68 10^6/uL (4.20-5.40); White Blood Count 10.9 10^3/uL (4.0-11.0)
[2024-11-20 19:58] LABS: ABG PCO2 73.0 mmHg (35.0-45.0)
[2024-11-20] MEDS: FAMOTIDINE/PF 20 MG/2 ML VIAL IV (19:58)
[2024-11-20] MEDS: METHYLPREDNISOLONE SOD SUCC PF 125 MG/2 ML VIAL IVP (19:59)
--- NOTE | 2024-11-20 20:02 | PC.NURSE ---
pt placed on Vapotherm d/t refusal of BiPap
--- NOTE | 2024-11-20 20:02 | RESP.RT ---
patient refusing bipap. Encouraged patient to wear it and educated her on the importance of it. Patient stated she understood but will not wear it. Dr. hitchcock.
[2024-11-20 20:10] LABS: INR 2.67; Prothrombin Time 25.7 sec (9.0-11.6)
[2024-11-20 20:11] LABS: Lactate/Lactic Acid 0.7 mmol/L (0.4-2.0)
[2024-11-20 20:12] LABS: Alanine Aminotransferase 22 U/L (14-59); Albumin Globulin Ratio 0.5; Albumin Level 2.0 g/dL (3.4-5.0); Alkaline Phosphatase 91 U/L (46-116); Anion Gap 14.4; Aspartate Amino Transferase 15 U/L (15-37); Blood Urea Nitrogen 67.0 mg/dL (7.0-18.0); Calcium 8.5 mg/dL (8.5-10.1); Carbon Dioxide 30.4 mmol/L (21.0-32.0); Chloride 108 mmol/L (98-107); Estimated GFR (African America 12 (>=60 mL/min/1.73m^2); Estimated GFR (Non-African Ame 10 (>=60 mL/min/1.73m^2); Globulin 4.0 g/dL; Glucose 141 mg/dL (74-106); Lipase 62.0 U/L (16.0-77.0); Magnesium 2.4 mg/dL (1.8-2.4); Potassium 3.8 mmol/L (3.5-5.1); Sodium 149 mmol/L (136-145); Total Protein 6.0 g/dL (6.4-8.2)
[2024-11-20 20:14] LABS: NT Pro B Type Natriuretic Pept 9139.0 pg/mL (<=1800.0); Partial Thromboplastin Time 41.3 sec (22.3-36.2)
--- NOTE | 2024-11-20 20:41 | PC.NURSE ---
buttocks cleansed with soap and water, jada care provided. pt's buttocks and groin area red and excoriated, A&D ointment applied and brief left open
[2024-11-20 20:43] LABS: Glucose Urine UA NEGATIVE (NEGATIVE)
[2024-11-20 20:54] LABS: SARS-CoV-2 Ag NEGATIVE (NEGATIVE)
[2024-11-20 20:58] LABS: Cast Seen? SEEN #/LPF (NONE SEEN); Crystals Seen? None Seen #/HPF (None Seen); Urine Culture Indicated YES-FRMC
[2024-11-20] MEDS: MORPHINE SULFATE 2 MG/ML SYRINGE IV (22:30)
== END 2024-11-20 22:50 | disposition short-term general hospital (02) ==
PROVIDERS: Personal Emergency Response Attendant; Emergency Provider Internal Medicine; PCP Nurse Practitioner Family
DX: J18.9 Pneumonia, unspecified organism (principal); N17.9 Acute kidney failure, unspecified; J44.1 Chronic obstructive pulmonary disease with (acute) exacerbation; J44.0 Chronic obstructive pulmonary disease with (acute) lower respiratory infection; D64.9 Anemia, unspecified; R06.02 Shortness of breath; J44.9 Chronic obstructive pulmonary disease, unspecified; Z87.01 Personal history of pneumonia (recurrent); I50.9 Heart failure, unspecified; R06.03 Acute respiratory distress
CPT/HCPCS: 36415; 36600; 51702; 71045; 80053; 81001; 82805; 83605; 83690; 83735; 83880; 84484; 85025; 85610; 85730; 87040; 87086; 87811; 93005; 94640; 94799; 96374; 96375; 99285; J2270; J2405; J2919; J3490